=== PATIENT | female | born 1965 | race Caucasian/White ===

== ENCOUNTER 2018-09-23 20:48 | Emergency (ER) | payer OTHER ==
--- OUTSIDE RECORDS SUMMARY | 2018-09-23 20:51 | XMS REPORT | Clinical Summary ---
:1965 Author Organization [facility] Address [address] [place] [address] Care Team Providers Name Role Phone Gibran Owens MD Primary Care Provider Allergies Active Allergy Reactions Severity Noted Date Comments Duloxetine High 05/19/2018 Quetiapine High 05/19/2018 Bupropion Hcl High 05/19/2018 Medications Medication Sig Dispensed Refills Start Date End Date Status amLODIPine (NORVASC) 5 Take 5 mg by 0 Active mg tablet mouth. citalopram (CeleXA) 20 Take 20 mg by 0 Active MG tablet mouth. furosemide (LASIX) 40 Take 20 mg by 0 Active mg tablet mouth. HYDROcodone-acetaminoph Take 1 tablet by 0 Active en (NORCO) 7.5-325 mg mouth. per tablet lisinopril Take 20 mg by 0 Active (PRINIVIL,ZESTRIL) 40 mouth. mg tablet pantoprazole (PROTONIX) Take 40 mg by 0 Active 40 MG EC tablet mouth. rOPINIRole (REQUIP) 2 Take 2 mg by 0 Active MG tablet mouth. promethazine Take 25 mg by 0 02/08/2016 Active (PHENERGAN) 25 MG mouth. tablet traZODone (DESYREL) 50 Take 50 mg by 0 Active MG tablet mouth. Active Problems No known active problems Encounters Date Type Specialty Care Team Description 07/01/2018 Telephone Orthopedic Surgery Tae Salazar MD 05/19/2018 Office Visit Orthopedic Surgery Tae Salazar MD Acute pain of right shoulder (Primary Dx); Failed orthopedic implant, initial encounter after 09/22/2017 Social History Tobacco Use Types Packs/Day Years Used Date Light Tobacco Smoker Smokeless Tobacco: Never Used Alcohol Use Drinks/Week oz/Week Comments No Sex Assigned at Date Recorded Not on file Job Start Date Occupation Industry Not on file Not on file Not on file Travel History Travel Start Travel End No recent travel history available. Last Filed Vital Signs Not on file Plan of Treatment Health Maintenance Due Date Last Done Comments MMR VACCINES (1 of 1 - Standard 1965 series) VARICELLA VACCINES (1 of 2 - 2-dose 1977 adolescent series) CERVICAL CANCER SCREENING 1985 BREAST CANCER SCREENING 2014 COLON CANCER SCREENING 2014 SHINGRIX VACCINE (1 of 2) 2014 INFLUENZA VACCINE 06/09/2018 HEPATITIS B VACCINES Aged Out No longer eligible based on patient's age to complete this topic IPV VACCINES Aged Out No longer eligible based on patient's age to complete this topic MENINGOCOCCAL VACCINE Aged Out No longer eligible based on patient's age to complete this topic Results Not on fileafter 09/22/2017 Insurance Payer Benefit Plan / Group Subscriber ID Type Phone Address UHC MEDICARE UHC DUAL COMPLETE MCR x[place] [facility] [place] Medicaid Advance Directives Patient has advance care planning documents on file. For more information, please contact:[facility] [place] [address]
--- NOTE | 2018-09-23 21:08 | ER ---
Nurse's Notes [facility] Name: Betsey Martel Age: 53 yrs Sex: Female : 1965 Arrival Date: 09/23/2018 Time: 20:53 Bed Waiting [facility] MD: Diagnosis: Presentation: 09/23 21:06 Note "I'm not going to wait, I'm going to go to [facility]". [facility] ED Course: :53 Patient arrived in ED. ds1 21:07 Christian Amaya MD is Attending Physician. aj Administered Medications: No medications were administered Outcome: 21:07 Patient left the ED. aj Signatures: Omaira Oconnell RN RN Keeley Blanco ds1
== END 2018-09-23 21:07 | disposition left against medical advice (07) ==
LOC: ER 20:48
DX: Z53.21 Procedure and treatment not carried out due to patient leaving prior to being seen by health care provider (principal)

== ENCOUNTER 2019-01-11 01:58 | Emergency (ER) | payer OTHER ==
--- OUTSIDE RECORDS SUMMARY | 2019-01-11 02:01 | XMS REPORT ---
:1965 [facility] Address [address] [place] [address] Dr. Phillips [address] [place] [address] Care Team Providers Name Role Phone Unavailable Unavailable Unavailable Problems This patient has no known problems. Allergies, Adverse Reactions, Alerts This patient has no known allergies or adverse reactions. Medications This patient has no known medications.
--- OUTSIDE RECORDS SUMMARY | 2019-01-11 02:01 | XMS REPORT | Clinical Summary ---
:1965 Author Organization [facility] Address [address] [place] [address] Care Team Providers Name Role Phone Gibran [...] Encounters Date Type Specialty Care Team Description 12/01/2018 Office Visit Orthopedic Surgery Tae Salazar MD 11/23/2018 Telephone Orthopedic Surgery Tae Salazar MD 11/22/2018 Hospital Encounter Radiology Tae Salazar, Acute pain of right MD shoulder 11/22/2018 Hospital Encounter Radiology Tae Salazar MD 11/22/2018 Hospital Encounter Radiology Tae Salazar, Acute pain of right MD shoulder 11/22/2018 Hospital Encounter Radiology Tae Salazar, Acute pain of right MD shoulder 10/25/2018 Telephone Orthopedic Surgery Tae Salazar MD 10/18/2018 Telephone Orthopedic Tae Bishop MD 10/06/2018 Office Visit Orthopedic Surgery Tae Salazar, Acute pain of right shoulder (Primary Dx); Failed orthopedic implant, initial encounter ([facility]) 07/01/2018 Telephone Orthopedic Tae Bishop MD 05/19/2018 Office Visit Orthopedic Surgery Tae Salazar, Acute pain of right shoulder (Primary Dx); Failed orthopedic implant, initial encounter after 01/10/2018 Social History Tobacco Use Types Packs/Day Years Used Date Light Tobacco Smoker Smokeless Tobacco: Never Used Alcohol Use Drinks/Week oz/Week Comments No Sex Assigned at Date Recorded Not on file Job Start Date Occupation Industry Not on file Not on file Not on file Travel History Travel Start Travel End No recent travel history available. Last Filed Vital Signs Vital Sign Reading Time Taken Blood Pressure 194/91 11/22/2018 2:15 PM [employer] Pulse 60 11/22/2018 2:15 PM [employer] Temperature - - Respiratory Rate 18 11/22/2018 1:12 PM [employer] Oxygen Saturation - - Inhaled Oxygen Concentration - - Weight 72.6 kg (160 lb) 11/22/2018 1:12 PM [employer] Height 167.6 cm (5' 6") 11/22/2018 1:12 PM [employer] Body Mass Index 25.82 11/22/2018 1:12 PM [employer] Plan of Treatment Health Maintenance Due Date Last Done Comments CERVICAL CANCER SCREENING 1985 BREAST CANCER SCREENING 2014 COLON CANCER SCREENING 2014 SHINGLES VACCINES (#1) 2014 INFLUENZA VACCINE Completed 07/25/2018 Procedures Procedure Name Priority Date/Time Associated Comments Diagnosis FL RAD NEEDLE Routine 11/22/2018 2:30 PM Acute pain of right Results for this ASPIRATION [employer] shoulder procedure are in the results section. CELL COUNT AND Routine 11/22/2018 2:05 PM Results for this DIFFERENTIAL, BODY [employer] procedure are in FLUID the results section. GRAM STAIN Routine 11/22/2018 2:05 PM Results for this [employer] procedure are in the results section. AEROBIC CULTURE Routine 11/22/2018 2:05 PM Results for this [employer] procedure are in the results section. NM BONE SCAN 3 PHASE Routine 11/22/2018 12:36 PM Acute pain of right Results for this [employer] shoulder procedure are in the results section. CT UPPER EXTREMITY Routine 11/22/2018 10:48 AM Acute pain of right Results for this WO RIGHT [employer] shoulder procedure are in the results section. after 01/10/2018 Results FL Rad Needle Aspiration (11/22/2018 2:30 PM [employer]) Narrative Performed At EXAMINATION:FL RAD NEEDLE ASPIRATION [facility] CLINICAL HISTORY:M25.511 Pain in right shoulder, RIGHT SHOULDERPOSSIBLE INFECTION COMPARISON:None. RADIATION DOSE: Fluoroscopic time was 0.6 minutes minutes. 3 fluoroscopic exposures. Peak skin dose is 2.17 mGy COMMENTS: Informed consent was obtained. Right shoulder joint was localized with fluoroscopy. The overlying skin was prepped and draped in routine sterile fashion. Using fluoroscopic guidance, after administration of local lidocaine, a 22G needle was advanced into the right shoulder joint. 1 cc of bloody fluid was aspirated and sent for the cultures and sensitivity.. Patient tolerated the procedure and there were no immediate complications. IMPRESSION: Fluoroscopic guided right shoulder aspiration and a patient with reverse right shoulder arthroplasty. Approximately 1 cc of fluid was obtained and sent for cultures and lab work as ordered. [facility]-[id number] Procedure Note Hm Interface, Radiology Results Incoming - 11/22/2018 2:43 PM [employer] EXAMINATION: FL RAD NEEDLE ASPIRATION CLINICAL HISTORY: M25.511 Pain in right shoulder, RIGHT SHOULDER POSSIBLE INFECTION COMPARISON: None. RADIATION DOSE: Fluoroscopic time was 0.6 minutes minutes. 3 fluoroscopic exposures. Peak skin dose is 2.17 mGy COMMENTS: Informed consent was obtained. Right shoulder joint was localized with fluoroscopy. The overlying skin was prepped and draped in routine sterile fashion. Using fluoroscopic guidance, after administration of local lidocaine, a 22G needle was advanced into the right shoulder joint. 1 cc of bloody fluid was aspirated and sent for the cultures and sensitivity.. Patient tolerated the procedure and there were no immediate complications. IMPRESSION: Fluoroscopic guided right shoulder aspiration and a patient with reverse right shoulder arthroplasty. Approximately 1 cc of fluid was obtained and sent for cultures and lab work as ordered. [facility]-[id number] Performing Organization Address City/State/Zipcode Phone Number [facility] [address] [place] [id number] Aerobic culture (11/22/2018 2:05 PM [employer]) Aerobic culture isolate No growth after 3 days. [facility] Comment: HOSPITAL Specimen Information Specimen Source: Aspirate Specimen Site: ShoulderRight Specimen Aspirate Performing Organization Address City/[facility] Phone Number [facility] DEPARTMENT OF PATHOLOGY AND [address] [place] [address] [address] Gram stain (11/22/2018 2:05 PM [employer]) Gram stain isolate No WBC's or organisms seen. [facility] Comment: Specimen Information Specimen Source: Aspirate Specimen Site: ShoulderRight Specimen Aspirate Performing Organization Address [facility] Phone Number [facility] DEPARTMENT OF PATHOLOGY AND [address] [place] [phone] [address] Cell count and differential, body fluid (11/22/2018 2:05 PM [employer]) [facility] fluid type SynovialComment: right [facility] shoulder Color, fluid Red [facility] Appearance, fluid Hazy [facility] RBC, fluid SEE COMMENTComment: 3+ /CMM [facility] (10,000 - 20,000 RBC/CMM) Nucleated cells, fluid 239 /CMM [facility] Fluid mononuclear cell See Diff [facility] Neutrophils, fluid 57 % [facility] Lymphocytes, fluid 33 % [facility] Metamyelocytes, fluid 10 % [facility] Specimen Fluid Narrative Performed At right shoulder [facility] DEPARTMENT OF PATHOLOGY AND GENOMIC MEDICINE Performing Organization Address [facility] Phone Number [facility] DEPARTMENT OF PATHOLOGY AND [address] [place] [address] [address] NM Bone Scan 3 Phase (11/22/2018 12:36 PM [employer]) Narrative Performed At PROCEDURE:NM BONE SCAN 3 PHASE [facility] INDICATION:Right shoulder pain. COMPARISON:CT scan of the right upper extremity performed on same day. TECHNIQUE: The patient was injected with 25 mCi of Tc-99m labeled MDP IV and a three phase bone scan of the thorax was performed. Immediate flow and pool images were followed by delayed images acquired three hours later. FINDINGS:Flow and pool images are unremarkable.Delayed images demonstrate relatively normal uptake surrounding a right shoulder prosthesis. IMPRESSION: 1. Uncomplicated appearing right shoulder prosthesis. [facility]-[id number] Procedure Note Interface, Radiology Results Incoming - 11/22/2018 1:37 PM [employer] PROCEDURE: NM BONE SCAN 3 PHASE INDICATION: Right shoulder pain. COMPARISON: CT scan of the right upper extremity performed on same day. TECHNIQUE: The patient was injected with 25 mCi of Tc-99m labeled MDP IV and a three phase bone scan of the thorax was performed. Immediate flow and pool images were followed by delayed images acquired three hours later. FINDINGS: Flow and pool images are unremarkable. Delayed images demonstrate relatively normal uptake surrounding a right shoulder prosthesis. IMPRESSION: 1. Uncomplicated appearing right shoulder prosthesis. [facility]-[id number] Performing Organization Address City/State/Zipcode Phone Number [facility] [address] [place] [address] CT Upper Extremity Wo Right (11/22/2018 10:48 AM [employer]) Narrative Performed At EXAMINATION:CT UPPER EXTREMITY WO RIGHT [facility] INDICATION:Pain. COMPARISON: None available TECHNIQUE: Helical axial CT images of the right shoulder were acquired without intravenous contrast. Sagittal coronal planar reformats reviewed. Automated exposure control and/or iterative reconstruction was used to reduce patient dose. 3-D volume rendered imaging was performed using post processing on a separate workstation. FINDINGS: 1.Prior reversed shoulder arthroplasty without evidence of a visible periprosthetic fracture. There is no evidence of a stress fracture of the acromion process. Lateral acromial downsloping is noted with ossification of the origin of the deltoid ligament. 2.Irregularity of the coracoid process consistent with old trauma. No evidence of an acute fracture. 3.There is adequate osseous integration involving the humeral implant without evidence of osteolysis. 4.There is solid osseous integration of the glenoid implant. 2 of the glenoid screws extend beyond the medial wall of the glenoid. There is no evidence of glenoid osteolysis. 5.There is prominent scapular notching involving the inferior glenoid and scapula as seen on series 310, image 28 from the base plate. 6.Limited assessment of the soft tissues demonstrates no focal abnormality in the mediastinum. There is expected atrophy of the cuff musculature which is most prominent involving subscapularis. No definite soft tissue mass is noted the in the axilla. No significant axillary adenopathy. Note is made of a stent graft involving the arch and descending thoracic aorta which is partially imaged. Limited assessment of the right hemithorax demonstrates no visible focal abnormality in the right lung. IMPRESSION: 1. Prior for shoulder arthroplasty with solid integration of the humeral and glenoid implants. No evidence of osteolysis. 2. Prominent notching of the inferior scapula from the medial aspect of the humeral base plate. 3. Small amount of periarticular heterotopic ossification. 4. Medial extension of a couple of the glenoid screws beyond the scapula of uncertain clinical significance. 5. Additional findings as above. Procedure Note Hm Interface, Radiology Results Incoming - 11/22/2018 11:49 AM [employer] EXAMINATION: CT UPPER EXTREMITY WO RIGHT INDICATION: Pain. COMPARISON: None available TECHNIQUE: Helical axial CT images of the right shoulder were acquired without intravenous contrast. Sagittal coronal planar reformats reviewed. Automated exposure control and/or iterative reconstruction was used to reduce patient dose. 3-D volume rendered imaging was performed using post processing on a separate workstation. FINDINGS: 1. Prior reversed shoulder arthroplasty without evidence of a visible periprosthetic fracture. There is no evidence of a stress fracture of the acromion process. Lateral acromial downsloping is noted with ossification of the origin of the deltoid ligament. 2. Irregularity of the coracoid process consistent with old trauma. No evidence of an acute fracture. 3. There is adequate osseous integration involving the humeral implant without evidence of osteolysis. 4. There is solid osseous integration of the glenoid implant. 2 of the glenoid screws extend beyond the medial wall of the glenoid. There is no evidence of glenoid osteolysis. 5. There is prominent scapular notching involving the inferior glenoid and scapula as seen on series 310, image 28 from the base plate. 6. Limited assessment of the soft tissues demonstrates no focal abnormality in the mediastinum. There is expected atrophy of the cuff musculature which is most prominent involving subscapularis. No definite soft tissue mass is noted the in the axilla. No significant axillary adenopathy. Note is made of a stent graft involving the arch and descending thoracic aorta which is partially imaged. Limited assessment of the right hemithorax demonstrates no visible focal abnormality in the right lung. IMPRESSION: 1. Prior for shoulder arthroplasty with solid integration of the humeral and glenoid implants. No evidence of osteolysis. 2. Prominent notching of the inferior scapula from the medial aspect of the humeral base plate. 3. Small amount of periarticular heterotopic ossification. 4. Medial extension of a couple of the glenoid screws beyond the scapula of uncertain clinical significance. 5. Additional findings as above. Performing Organization Address City/State/Zipcode Phone Number [facility] [address] [place] [address] after 01/10/2018 Insurance Payer Benefit Plan / Group Subscriber ID Type Phone Address [facility] MEDICARE [facility] DUAL COMPLETE MCR xxxxxxxxx [facility] MED[place]ID MEDICAID xxxxxxxxx Medicaid Advance Directives Patient has advance care planning documents on file. For more information, please contact:Hugo Casillas[address] [place] [address]
[2019-01-11] MEDS ORDERED: NA CHLORIDE 0.9% 500 ML ONE (02:53)
[2019-01-11] MEDS ORDERED: FENTANYL CITR 100 MCG/2 ML ONE (03:34)
[2019-01-11 04:02] LABS: Urine Blood NEGATIVE (NEG); Urine Glucose NEGATIVE (NEG); Urine Protein NEGATIVE (NEG); Urine pH 5.5 (5.0-7.0)
[2019-01-11 04:07] LABS: Urine Bacteria <20 /HPF (<20); Urine Culture Reflex Order NOT NEEDED; Urine RBC NONE SEEN /HPF (NONE SEEN)
[2019-01-11 04:24] LABS: ALT/SGPT 21 U/L (12-78); AST/SGOT 10 U/L (15-37); Albumin 3.7 g/dL (3.4-5.0); Alkaline Phosphatase 98 U/L (45-117); BUN Blood Urea Nitrogen 39 mg/dL (7-18); Bicarbonate 27 mmol/L (21-32); Bilirubin Direct < 0.1 mg/dL (0-0.2); Bilirubin Total 0.4 mg/dL (0.2-1.0); Glucose Level 110 mg/dL (74-106); Lipase 153 U/L (73-393); Magnesium 1.7 mg/dL (1.8-2.4); Potassium 3.6 mmol/L (3.5-5.1); Protein, Total 6.6 g/dL (6.4-8.2); Sodium Level 140 mmol/L (136-145)
[2019-01-11 04:26] LABS: Absolute Lymphocytes (CBC) 1.8 K/uL (0.7-4.9); Absolute Monocytes 0.5 K/uL (0.1-1.3); Basophils % 0.7 % (0-1.3); Eosinophils % 5.5 % (0-4.4); Hematocrit 39.3 % (36.0-45.0); Lymphocytes % 26.9 % (15.3-44.8); MPV 7.5 fL (7.6-11.3); Monocytes % 7.3 % (3.3-12.3); RBC Red Blood Cell Count 4.06 M/uL (3.86-4.86)
--- NOTE | 2019-01-11 05:34 | EDPHYS ---
Physician Documentation [facility] Name: Betsey Martel Age: 53 yrs Sex: Female : 1965 Arrival Date: 01/11/2019 Time: 02:00 Bed 5 Private MD: ED Physician Christian Amaya HPI: 01/11 02:25 This 53 yrs old Female presents to ER via EMS with complaints of Abdominal cp Cramping. 02:25 The patient presents to the emergency department with nausea, that is moderate, cp vomiting, that is intermittent. 02:25 Onset: The symptoms/episode began/occurred 1 week(s) ago. Associated signs and cp symptoms: Pertinent positives: abdominal pain, Pertinent negatives: constipation, dysuria, fever, GI bleeding. Severity of symptoms: in the emergency department the symptoms are unchanged despite home interventions. 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: 02:09 LMP N/A - Post-menopause bb Historical: - Allergies: 02:09 Cymbalta; bb 02:09 Seroquel; bb 02:09 Wellbutrin; bb - Home Meds: 02:09 amlodipine 5 mg tab 1 tab once daily [Active]; biotin Oral daily [Active]; bb levothyroxine 25 mcg tab once daily [Active]; pantoprazole 40 mg Oral TbEC 1 tab once daily [Active]; citalopram 20 mg tab 1 tab once daily [Active]; furosemide 20 mg Oral tab 1 tab once daily [Active]; trazodone 75 mg nightly Oral tab nightly [Active]; ropinirole 2 mg Oral Tb24 nightly [Active]; hydromorphone 4 mg Oral tab four times a day [Active]; Klonopin 2 mg Oral tab as needed [Active]; Phenergan Oral 25 mg as needed [Active]; tizanidine 2 mg oral cap 1 caps twice a day [Active]; - PMHx: 02:09 BRAIN TUMOR 1996; degenerative bone disease; Depression; ETHO INTOXICATION; GERD; Hip bb Pain; Hypertension; Hypothyroidism; kidney disease; osteoarthritis; Rheumatoid Arthritis; THORACIC AORTIC ANEURYSM; CHF; Anemia; Chronic pain; - Immunization history:: Adult Immunizations up to date. - Social history:: Smoking status: Patient uses tobacco products, smokes one pack cigarettes per day. - Ebola Screening: : No symptoms or risks identified at this time. ROS: 00:30 Constitutional: Positive for poor PO intake, Negative for body aches, chills, fever. cp 00:30 Eyes: Negative for injury, pain, redness, and discharge. cp 00:30 Cardiovascular: Negative for chest pain, edema, palpitations. cp 00:30 ENT: Negative for drainage from ear(s), ear pain, sore throat, difficulty swallowing, cp difficulty handling secretions. 00:30 Respiratory: Negative for cough, shortness of breath, wheezing. 00:30 Abdomen/GI: Positive for nausea, vomiting, abdominal cramps, Negative for diarrhea, constipation, anorexia, hematemesis, black/tarry stool, rectal bleeding. 00:30 : Negative for urinary symptoms. 00:30 Skin: Negative for cellulitis, rash. 00:30 Neuro: Negative for altered mental status, headache, syncope, weakness. 00:30 All other systems are negative. Exam: 00:35 Constitutional: The patient appears in no acute distress, alert, awake, non-toxic, well cp developed, well nourished. 00:35 Head/Face: Normocephalic, atraumatic. cp 00:35 Eyes: Periorbital structures: appear normal, Conjunctiva: normal, no exudate, no injection, Sclera: no appreciated abnormality, Lids and lashes: appear normal, bilaterally. 00:35 ENT: External ear(s): are unremarkable, Nose: is normal, Mouth: Lips: moist, Oral mucosa: pink and intact, moist, Posterior pharynx: is normal, airway is patent, no erythema, no exudate. 00:35 Chest/axilla: Inspection: normal, Palpation: is normal, no crepitus, no tenderness. 00:35 Cardiovascular: Rate: normal, Rhythm: regular. 00:35 Respiratory: the patient does not display signs of respiratory distress, Respirations: normal, no use of accessory muscles, no retractions, no splinting, no tachypnea, labored breathing, is not present, Breath sounds: are clear throughout, no decreased breath sounds, no stridor, no wheezing. 00:35 Abdomen/GI: Inspection: abdomen appears normal, Bowel sounds: active, all quadrants, Palpation: soft, in all quadrants, mild abdominal tenderness, in all quadrants, rebound tenderness, is not appreciated, voluntary guarding, is not appreciated, involuntary guarding, is not appreciated. 00:35 Back: pain, is absent, ROM is normal. 00:35 Skin: cellulitis, is not appreciated, no rash present. 00:35 Neuro: Orientation: to person, place \T\ time. Mentation: is normal, Cerebellar function: is grossly normal, Motor: moves all fours, strength is normal, Sensation: is normal. 03:23 ECG was reviewed by the Attending Physician. cp Vital Signs: 02:09 BP 127 / 66; Pulse 79; Resp 16 S; Temp 97.7(O); Pulse Ox 100% on R/A; Weight 70.31 kg bb (R); Pain 9/10; 02:30 BP 120 / 63; Pulse 83; Resp 12; Pulse Ox 100% on R/A; lp1 03:30 BP 111 / 91; Pulse 61; Resp 20; Pulse Ox 99% on R/A; lp1 05:00 BP 128 / 67; Pulse 62; Resp 15; Pulse Ox 97% on R/A; lp1 06:46 BP 127 / 84; Pulse 65; Resp 18; Pulse Ox 98% on R/A; oe MDM: 02:09 Patient medically screened. cp 05:31 Data reviewed: vital signs, nurses notes, lab test result(s), EKG, radiologic studies, maria esther CT scan. 03 02:23 Order name: Basic Metabolic Panel cp 01/11 02:23 Order name: CBC with Diff; Complete Time: 05:10 cp 01/11 02:23 Order name: Creatinine for Radiology; Complete Time: 05:10 cp 01/11 02:23 Order name: Hepatic Function; Complete Time: 05:10 cp 01/11 02:23 Order name: Lipase; Complete Time: 05:10 cp 01/11 02:23 Order name: Magnesium; Complete Time: 05:10 cp 01/11 02:23 Order name: EKG; Complete Time: 02:24 cp 01/11 02:23 Order name: Urine Microscopic Only; Complete Time: 05:10 cp 01/11 02:23 Order name: Basic Metabolic Panel; Complete Time: 05:10 EDMS 01/11 03:02 Order name: CT Abd/Pelvis - Without Cont: give oral contrast cp 01/11 03:09 Order name: Urine Dipstick--Ancillary (enter results); Complete Time: 04:07 ms 01/11 02:23 Order name: IV Saline Lock; Complete Time: 03:16 cp 01/11 02:23 Order name: Labs collected and sent; Complete Time: 03:16 cp 01/11 02:23 Order name: EKG - Nurse/Tech; Complete Time: 03:22 cp 01/11 02:23 Order name: Urine Dipstick-Ancillary (obtain specimen); Complete Time: 03:15 cp EC:23 Rate is 68 beats/min. Rhythm is regular. NE interval is normal. QRS interval is normal. cp QT interval is normal. Interpreted by me. Reviewed by me. Administered Medications: 03:08 Drug: NS 0.9% 500 ml Route: IV; Rate: bolus; Site: right antecubital; lp1 03:45 Follow up: IV Status: Completed infusion lp1 03:29 Drug: fentaNYL (PF) 25 mcg Route: IVP; Site: right antecubital; lp1 04:00 Follow up: Response: Pain is decreased lp1 05:46 Drug: Magnesium Sulfate 1 grams Route: IVPB; Infused Over: 1 hrs; Site: right lp1 antecubital; 06:45 Follow up: IV Status: Completed infusion lp1 Disposition: 05:31 Co-signature as Attending Physician, Christian Amaya MD I agree with the assessment and maria esther plan of care. Disposition: 01/11/19 05:34 Discharged to Home. Impression: Abdominal tenderness, Unspecified kidney failure, Hypomagnesemia. - Condition is Stable. - Discharge Instructions: Abdominal Pain, Adult, Diarrhea, Adult, Hypomagnesemia, Abdominal Pain, Adult, Zjlk-[id number], Diarrhea, Adult, [id number]. - Prescriptions for Bentyl 20 mg Oral Tablet - take 1 tablet by ORAL route every 6 hours As needed; 20 tablet. Pepcid 20 mg Oral Tablet - take 1 tablet by ORAL route every 12 hours for 10 days; 20 tablet. - Medication Reconciliation Form, Thank You Letter, Antibiotic Education, Prescription Opioid Use form. - Follow up: Private Physician; When: 2 - 3 days; Reason: Recheck today's complaints, Re-evaluation by your physician. - Problem is new. - Symptoms have improved. Signatures: Dispatcher [employer] Christian Quiroz MD MD cha Ballard, Brenda RN RN bb Betsey Gilmore RN RN lp1 Christian Webber PA PA cp Corrections: (The following items were deleted from the chart) 07:05 05:34 01/11/2019 05:34 Discharged to Home. Impression: Abdominal tenderness; lp1 Unspecified kidney failure; Hypomagnesemia. Condition is Stable. Forms are Medication Reconciliation Form, Thank You Letter, Antibiotic Education, Prescription Opioid Use. Follow up: Private Physician; When: 2 - 3 days; Reason: Recheck today's complaints, Re-evaluation by your physician. Problem is new. Symptoms have improved. maria esther
--- NOTE | 2019-01-11 05:34 | ER ---
Nurse's Notes [facility] Name: Betsey Martel Age: 53 yrs Sex: Female : 1965 Arrival Date: 01/11/2019 Time: 02:00 Bed 5 Private MD: Diagnosis: Abdominal tenderness;Unspecified kidney failure;Hypomagnesemia Presentation: 01/11 02:03 Presenting complaint: EMS states: they were toned out for report of pt having abdominal bb pain/cramping and diarrhea. Pt denies vomiting or fever. Pt is c/o leg cramping also. Transition of care: patient was not received from another setting of care. Onset of symptoms was January 11, 2019. Risk Assessment: Do you want to hurt yourself or someone else? Patient reports no desire to harm self or others. Initial Sepsis Screen: Does the patient meet any 2 criteria? No. Patient's initial sepsis screen is negative. Does the patient have a suspected source of infection? No. Patient's initial sepsis screen is negative. Care prior to arrival: None. 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: 02:09 LMP N/A - Post-menopause bb Historical: - Allergies: 02:09 Cymbalta; bb 02:09 Seroquel; bb 02:09 Wellbutrin; bb - Home Meds: 02:09 amlodipine 5 mg tab 1 tab once daily [Active]; biotin Oral daily [Active]; bb levothyroxine 25 mcg tab once daily [Active]; pantoprazole 40 mg Oral TbEC 1 tab once daily [Active]; citalopram 20 mg tab 1 tab once daily [Active]; furosemide 20 mg Oral tab 1 tab once daily [Active]; trazodone 75 mg nightly Oral tab nightly [Active]; ropinirole 2 mg Oral Tb24 nightly [Active]; hydromorphone 4 mg Oral tab four times a day [Active]; Klonopin 2 mg Oral tab as needed [Active]; Phenergan Oral 25 mg as needed [Active]; tizanidine 2 mg oral cap 1 caps twice a day [Active]; - PMHx: 02:09 BRAIN TUMOR 1997; degenerative bone disease; Depression; ETHO INTOXICATION; GERD; Hip bb Pain; Hypertension; Hypothyroidism; kidney disease; osteoarthritis; Rheumatoid Arthritis; THORACIC AORTIC ANEURYSM; CHF; Anemia; Chronic pain; - Immunization history:: Adult Immunizations up to date. - Social history:: Smoking status: Patient uses tobacco products, smokes one pack cigarettes per day. - Ebola Screening: : No symptoms or risks identified at this time. Screenin:13 Abuse screen: Denies threats or abuse. Denies injuries from another. Nutritional lp1 screening: No deficits noted. Tuberculosis screening: No symptoms or risk factors identified. Fall Risk None identified. Assessment: 02:15 General: Appears uncomfortable, Behavior is anxious. Pain: Complains of pain in abdomen lp1 Pain currently is 10 out of 10 on a pain scale. Quality of pain is described as sharp, stabbing. Neuro: Level of Consciousness is awake, alert, obeys commands, Oriented to person, place, time, situation. Cardiovascular: Patient's skin is warm and dry. Respiratory: Respiratory effort is even, unlabored, Respiratory pattern is regular, Breath sounds are clear bilaterally. GI: Abdomen is non-distended, Bowel sounds present X 4 quads. Abdomen is tender to palpation X 4 quads. Reports diarrhea. : No signs and/or symptoms were reported regarding the genitourinary system. EENT: No signs and/or symptoms were reported regarding the EENT system. Derm: Skin is pink, warm \\T\\ dry. Musculoskeletal: Circulation, motion, and sensation intact. 03:15 Reassessment: CT notified of patient completing oral contrast at this time. lp1 03:20 Reassessment: Patient complaint of continued pain, states "I have chronic pain lp1 management, I take Dilaudid at home so can you let him know?"; Provider notified. 04:30 Reassessment: Patient appears in no apparent distress at this time. Patient and/or lp1 family updated on plan of care and expected duration. Pain level reassessed. Patient is alert, oriented x 3, equal unlabored respirations, skin warm/dry/pink. Patient aware of pending CT results. 05:46 Reassessment: Patient is alert, oriented x 3, equal unlabored respirations, skin lp1 warm/dry/pink. Patient aware of pending discharge; IV medication infusing now Patient states feeling better. 06:45 Reassessment: Patient appears in no apparent distress at this time. Patient is alert, lp1 oriented x 3, equal unlabored respirations, skin warm/dry/pink. Patient states feeling better. Patient states symptoms have improved. Vital Signs: 02:09 BP 127 / 66; Pulse 79; Resp 16 S; Temp 97.7(O); Pulse Ox 100% on R/A; Weight 70.31 kg bb (R); Pain 9/10; 02:30 BP 120 / 63; Pulse 83; Resp 12; Pulse Ox 100% on R/A; lp1 03:30 BP 111 / 91; Pulse 61; Resp 20; Pulse Ox 99% on R/A; lp1 05:00 BP 128 / 67; Pulse 62; Resp 15; Pulse Ox 97% on R/A; lp1 06:46 BP 127 / 84; Pulse 65; Resp 18; Pulse Ox 98% on R/A; oe ED Course: 02:00 Patient arrived in ED. ds1 02:04 Triage completed. bb 02:09 Christian Webber PA is PHCP. cp 02:09 Christian Amaya MD is Attending Physician. cp 02:09 Arm band placed on Patient placed in an exam room, on a stretcher, on pulse oximetry. bb 02:15 Patient has correct armband on for positive identification. cardiac monitor technician on. Pulse lp1 ox on. NIBP on. 02:39 Betsey Gilmore, RN is Primary Nurse. lp1 03:00 Inserted saline lock: 22 gauge in right antecubital area, using aseptic technique. lp1 Blood collected. 03:00 Urine collected: clean catch specimen, clear. lp1 04:[address] via wheelchair. lp1 04:47 CT Abd/Pelvis - Without Cont: give oral contrast In Process Unspecified. EDMS 04:47 CT completed. Patient tolerated procedure well. Patient moved back from CT. kw1 05:47 No provider procedures requiring assistance completed. lp1 06:45 IV discontinued, No redness/swelling at site. Pressure dressing applied. lp1 Administered Medications: 03:08 Drug: NS 0.9% 500 ml Route: IV; Rate: bolus; Site: right antecubital; lp1 03:45 Follow up: IV Status: Completed infusion lp1 03:29 Drug: fentaNYL (PF) 25 mcg Route: IVP; Site: right antecubital; lp1 04:00 Follow up: Response: Pain is decreased lp1 05:46 Drug: Magnesium Sulfate 1 grams Route: IVPB; Infused Over: 1 hrs; Site: right lp1 antecubital; 06:45 Follow up: IV Status: Completed infusion lp1 Outcome: 05:34 Discharge ordered by MD. mayo 06:45 Discharged to home ambulatory, with friend. lp1 06:45 Condition: good 06:45 Discharge instructions given to patient, Instructed on discharge instructions, follow up and referral plans. medication usage, Demonstrated understanding of instructions, follow-up care, medications, Prescriptions given X 2. 06:45 Patient left the ED. lp1 Signatures: Dispatcher [employer] EDMS Christian Amaya MD MD cha Sanford, Demi ds1 Yuni Berumen RN RN Betsey Rey RN RN lp1 Christian Webber, Nura Pierre cp, Kimberly kw1 Corrections: (The following items were deleted from the chart) 07:06 07:05 Patient left the ED. lp1 lp1
[2019-01-11] MEDS ORDERED: MAGNESIUM SULFATE 1 gm IVPB 1 GM/100 ML BAG IV ONE (05:51)
[2019-01-11 07:19] VITALS: TEMP 97.7
[2019-01-11 07:26] VITALS: BP 127/84; O2SAT 98
--- NOTE | 2019-01-11 10:30 | EKG ---
Test Date: 2019-01-11 Test Time: 03:14:04 General Education Instructor: ERICA MEASUREMENT RESULTS: Intervals: Rate: 68 NM: 156 QRSD: 90 QT: 410 QTc: 435 [place]: P: 48 NM: 156 QRS: 7 T: 35 INTERPRETIVE STATEMENTS: Normal sinus rhythm Minimal voltage criteria for LVH, may be normal variant Borderline ECG Compared to ECG 09/28/2017 07:32:43 Left ventricular hypertrophy now present Sinus bradycardia no longer present Electronically Signed On 01-11-19 10:29:14 PSYCHIATRIC AIDE by Lavell Ruiz
--- NOTE | 2019-01-11 10:40 | RAD REPORT ---
EXAM DESCRIPTION: CT - Abdomen Pelvis Wo Contrast - 01/11/2019 5:18 am JULIAN GARCIA [id number] - Abdomen Pelvis Wo Contrast EXAM: CT abdomen pelvis without IV contrast CLINICAL DATA: 53-year-old female with diarrhea and abdominal pain, denies vomiting or fever TECHNICAL DATA: Axial CT imaging of the abdomen and pelvis was performed. Sagittal and coronal reconstructed images were then performed. The CT study is performed according to ALARA (as low as reasonably achievable) or ALARA/IMAGE GENTLY, with automatic adjustment of mA and/or kV according to patient size. Performed on: 01/11/2019 at 4:35 AM Comparison: 09/26/2017. FINDINGS: Lung bases: The lung bases are clear. There is partial visualization of a metallic stent w ithin the descending thoracic aorta. Liver: The liver is normal in size and configuration. No focal hepatic abnormalities are appreciated on this unenhanced scan. Liver attenuation is within normal limits. Spleen: The spleen is normal is size, configuration and attenuation. No focal splenic abnormalities a re appreciated on this unenhanced scan. Gallbladder and bile duct: The gallbladder is surgically absent. There is no biliary ductal dilatat ion. Pancreas: The pancreas is grossly normal in size and configuration. Adrenal Glands: The adrenal glands are normal in size and configuration. Kidneys: The kidneys are normal in size and configuration. There is no evidence of hydronephrosis. Th ere is no evidence of nephrolithiasis. No focal renal abnormalities are identified. Stomach: The stomach is grossly normal. There is no definite hiatal hernia. Bowel: The bowel gas pattern is non specific and non obstructive. There is scattered colonic divertic ulosis. Appendix: The appendix is normal. Free air: There is no evidence of free air. Free fluid: There is no evidence of free fluid. Vasculature: The aorta is normal in caliber and contour. The inferior vena cava is grossly unremarkab le. Lymphadenopathy: No pathologic lymphadenopathy is identified. Bladder: The bladder is incompletely distended. Reproductive: The uterus is grossly within normal limits. Bones: No acute osseous abnormalities are identified. Soft tissues: No focal soft tissue abnormalities are identified. IMPRESSION: 1. No evidence of acute intra-abdominal or intrapelvic pathology.. 2. Remote cholecystectomy. 3. Scattered colonic diverticulosis. 4. No significant change when compared to the prior study. Electronically signed by: Joellen Justin DO 01/11/2019 5:10 AM EVP AND CHIEF OPERATING OFFICER Due to temporary technical issues with the PACS/Fluency reporting system, reports are being signed by the in house radiologist as a courtesy to ensure prompt reporting. The interpreting radiologist is f ully responsible for the content of the report.
== END 2019-01-11 07:05 | disposition home or self-care (01) ==
LOC: ER 01:58
DX: N19 Unspecified kidney failure (principal); E83.42 Hypomagnesemia; F17.210 Nicotine dependence, cigarettes, uncomplicated; F32.9 Major depressive disorder, single episode, unspecified; Z88.5 Allergy status to narcotic agent
CPT/HCPCS: 93005; 85025; 80048; 36415; 83735; 80076; 83690; 74176; J3010; J3475; 81003; 81015; 96361; 96365; 96375; 99285

== ENCOUNTER 2019-02-08 09:25 | Observation (INO) | payer OTHER ==
--- OUTSIDE RECORDS SUMMARY | 2019-02-08 09:48 | XMS REPORT | Clinical Summary ---
:1965 Author Organization [facility] Address [address] [place] [address] Care Team Providers Name Role Phone Gibran [...] (Primary Dx); Failed orthopedic implant, initial encounter ([facility]) 07/01/2018 Telephone Orthopedic Tae Bishop MD 05/19/2018 Office Visit Orthopedic Surgery Tae Salazra, Acute pain of right shoulder (Primary Dx); Failed orthopedic implant, initial encounter after 02/07/2018 Social History Tobacco Use Types Packs/Day Years [...] Taken Blood Pressure 194/91 11/22/2018 2:15 PM CAMPGROUND MANAGER Pulse 60 11/22/2018 2:15 PM CAMPGROUND MANAGER Temperature - - Respiratory Rate 18 11/22/2018 1:12 PM CAMPGROUND MANAGER Oxygen Saturation - - Inhaled Oxygen Concentration - - Weight 72.6 kg (160 lb) 11/22/2018 1:12 PM CAMPGROUND MANAGER Height 167.6 cm (5' 6") 11/22/2018 1:12 PM CAMPGROUND MANAGER Body Mass Index 25.82 11/22/2018 1:12 PM CAMPGROUND MANAGER Plan of Treatment Health Maintenance Due Date Last Done Comments CERVICAL CANCER SCREENING 1985 BREAST CANCER SCREENING 2014 COLON CANCER SCREENING 2014 SHINGLES VACCINES (#1) 2014 INFLUENZA VACCINE Completed 07/25/2018 Procedures Procedure Name Priority Date/Time Associated Comments Diagnosis FL RAD NEEDLE Routine 11/22/2018 2:30 PM Acute pain of right Results for this ASPIRATION CAMPGROUND MANAGER shoulder procedure are in the results section. CELL COUNT AND Routine 11/22/2018 2:05 PM Results for this DIFFERENTIAL, BODY CAMPGROUND MANAGER procedure are in FLUID the results section. GRAM STAIN Routine 11/22/2018 2:05 PM Results for this CAMPGROUND MANAGER procedure are in the results section. AEROBIC CULTURE Routine 11/22/2018 2:05 PM Results for this CAMPGROUND MANAGER procedure are in the results section. NM BONE SCAN 3 PHASE Routine 11/22/2018 12:36 PM Acute pain of right Results for this CAMPGROUND MANAGER shoulder procedure are in the results section. CT UPPER EXTREMITY Routine 11/22/2018 10:48 AM Acute pain of right Results for this WO RIGHT CAMPGROUND MANAGER shoulder procedure are in the results section. after 02/07/2018 Results FL Rad Needle Aspiration (11/22/2018 2:30 PM CAMPGROUND MANAGER) Narrative Performed At EXAMINATION:FL RAD NEEDLE ASPIRATION [...] for cultures and lab work as ordered. [facility]-[id number] Procedure Note Hm Interface, Radiology Results Incoming - 11/22/2018 2:43 PM CAMPGROUND MANAGER EXAMINATION: FL RAD NEEDLE ASPIRATION CLINICAL HISTORY: [...] for cultures and lab work as ordered. [facility]-[id number] Performing Organization Address City/State/Zipcode Phone Number [facility] [address] [place] [id number] Aerobic culture (11/22/2018 2:05 PM CAMPGROUND MANAGER) Aerobic culture isolate No growth after [address] [facility] Comment: HOSPITAL Specimen Information Specimen Source: Aspirate Specimen Site: ShoulderRight Specimen Aspirate Performing Organization Address City/[facility] Phone Number [facility] DEPARTMENT OF PATHOLOGY AND [address] [place] [phone] [address] Gram stain (11/22/2018 2:05 PM CAMPGROUND MANAGER) Gram stain isolate No WBC's or organisms seen. [facility] Comment: Specimen Information Specimen Source: Aspirate Specimen Site: ShoulderRight Specimen Aspirate Performing Organization Address [facility] Phone Number [facility] DEPARTMENT OF PATHOLOGY AND [address] [place] [phone] [address] Cell count and differential, body fluid (11/22/2018 2:05 PM CAMPGROUND MANAGER) [facility] [place] type SynovialComment: right [facility] shoulder Color, fluid Red [facility] Appearance, fluid Hazy [facility] RBC, fluid SEE COMMENTComment: 3+ /CMM [facility] (10,000 - 20,000 RBC/CMM) Nucleated cells, fluid 239 /CMM [facility] Fluid mononuclear cell See Diff [facility] Neutrophils, fluid 57 % [facility] Lymphocytes, fluid 33 % [facility] Metamyelocytes, fluid 10 % [facility] Specimen Fluid Narrative Performed At right shoulder [facility] DEPARTMENT OF PATHOLOGY AND GENOMIC MEDICINE Performing Organization Address [facility] Phone Number [facility] DEPARTMENT OF PATHOLOGY AND [address] [place] [phone] [address] NM Bone Scan 3 Phase (11/22/2018 12:36 PM CAMPGROUND MANAGER) Narrative Performed At PROCEDURE:NM BONE SCAN 3 [...] IMPRESSION: 1. Uncomplicated appearing right shoulder prosthesis. [facility]-[id number] Procedure Note Interface, Radiology Results Incoming - 11/22/2018 1:37 PM CAMPGROUND MANAGER PROCEDURE: NM BONE SCAN 3 PHASE INDICATION: [...] IMPRESSION: 1. Uncomplicated appearing right shoulder prosthesis. [facility]-[id number] Performing Organization Address City/State/Zipcode Phone Number [facility] [address] [place] [address] CT Upper Extremity Wo Right (11/22/2018 10:48 AM CAMPGROUND MANAGER) Narrative Performed At EXAMINATION:CT UPPER EXTREMITY WO [...] Radiology Results Incoming - 11/22/2018 11:49 AM CAMPGROUND MANAGER EXAMINATION: CT UPPER EXTREMITY WO RIGHT INDICATION: [...] above. Performing Organization Address City/State/Zipcode Phone Number [facility] [address] [place] [address] after 02/07/2018 Insurance Payer Benefit Plan / Group Subscriber ID Type Phone Address [facility] MEDICARE [facility] DUAL COMPLETE MCR xxxxxxxxx [facility] MEDICAID MEDICAID xxxxxxxxx Medicaid Advance Directives Patient has advance care planning documents on file. For more information, please contact:Hugo Casillas[address] [place] [address]
--- OUTSIDE RECORDS SUMMARY | 2019-02-08 09:48 | XMS REPORT ---
:1965 Author Organization [facility] Address [address] [place] [address] Dr. Phillips [address] [place] [address] Care Team Providers Name Role Phone Unavailable Unavailable Unavailable Problems This patient has no known problems. Allergies, Adverse Reactions, Alerts This patient has no known allergies or adverse reactions. Medications This patient has no known medications.
--- NOTE | 2019-02-08 10:00 | RAD REPORT ---
EXAM DESCRIPTION: Vale Single View02/08/2019 9:52 am CLINICAL HISTORY: Cough COMPARISON: 2017 FINDINGS: The lungs appear clear of acute infiltrate. The heart is mildly enlarged Postsurgical changes involve the chest IMPRESSION: No acute abnormalities displayed
[2019-02-08 10:15] LABS: Arterial Blood Carboxyhemoglob 3.2 % (0-1.5); Blood Gas Oxyhemoglobin 91.6 % (94-97); Blood O2 Saturation 95.6 % (92-98.5)
--- NOTE | 2019-02-08 11:35 | RAD REPORT ---
EXAM DESCRIPTION: MRI - Brain Wo Cont - 02/08/2019 11:15 am CLINICAL HISTORY: DIZZINESS Headache, drowsiness, history brain tumor. COMPARISON: Head Brain Wo Cont dated 12/29/2017; MRI BRAIN W WO CONTRAST dated 04/24/2014; MRI BRAIN W ITHOUT CONTRAST dated 03/17/2012; MRA HEAD W O CONTRAST dated 03/17/2012 TECHNIQUE: Multi-sequence, multiplanar MR imaging of the brain was performed without contrast. FINDINGS: No intracranial hemorrhage, hydrocephalus or extra-axial fluid collections. No edema or sh ift of midline structures. No findings to suspect brain mass.Postsurgical changes are present left ce rebellar hemisphere. DWI is negative for acute CVA. Midline structures are normally formed. Mastoid air cells and paranasal sinuses are clear. IMPRESSION: No acute CVA or other acute intracranial abnormality detected. Evidence of postsurgical change left cerebellar hemisphere without unexpected or unusual finding.
[2019-02-08 11:43] LABS: Barbiturates NEGATIVE (NEGATIVE); Benzodiazepines NEGATIVE (NEGATIVE); Cocaine NEGATIVE (NEGATIVE); METHAMPHETAM NEGATIVE (NEGATIVE); Methadone NEGATIVE (NEGATIVE); Opiates POSITIVE (NEGATIVE); Phencyclidine NEGATIVE (NEGATIVE); THC Cannibis NEGATIVE (NEGATIVE)
[2019-02-08] MEDS ORDERED: NA CHLORIDE 0.9% 1,000 ML ONE ×2 (11:57→13:56)
[2019-02-08] MEDS ORDERED: THIAMINE 200 MG/2 ML INJ ONE (11:57)
[2019-02-08] MEDS ORDERED: ALBUTEROL 2.5 MG/3 ML NEB SOL ONE (11:57)
[2019-02-08] MEDS ORDERED: IPRATROPIUM BROM 0.5MG/2.5ML ONE (11:57)
[2019-02-08] MEDS ORDERED: METHYLPREDNISOLONE 125 MG INJ ONE (11:57)
[2019-02-08] MEDS ORDERED: FOLIC ACID 5 MG/ML VIAL ONE (11:59)
[2019-02-08 12:08] LABS: Absolute Monocytes 0.3 K/uL (0.1-1.3); Absolute Neutrophil 3.4 K/uL (1.8-8.0); Basophils % 0.5 % (0-1.3); Eosinophils % 1.4 % (0-4.4); Hematocrit 33.1 % (36.0-45.0); MPV 7.7 fL (7.6-11.3); Monocytes % 6.5 % (3.3-12.3); RBC Red Blood Cell Count 3.43 M/uL (3.86-4.86)
[2019-02-08 12:14] LABS: Protime INR 0.84
[2019-02-08 12:24] LABS: ALT/SGPT 17 U/L (12-78); AST/SGOT 17 U/L (15-37); Albumin 3.4 g/dL (3.4-5.0); Alkaline Phosphatase 94 U/L (45-117); BUN Blood Urea Nitrogen 66 mg/dL (7-18); Bicarbonate 29 mmol/L (21-32); Bilirubin Direct < 0.1 mg/dL (0-0.2); Bilirubin Total 0.2 mg/dL (0.2-1.0); Glucose Level 84 mg/dL (74-106); Lipase 59 U/L (73-393); NT PRO-BNP 1159 pg/mL (<125); Potassium 5.1 mmol/L (3.5-5.1); Protein, Total 6.6 g/dL (6.4-8.2); Sodium Level 135 mmol/L (136-145); Troponin (Emerg Dept Use Only) < 0.02 ng/mL (0.0-0.045)
--- NOTE | 2019-02-08 13:17 | RAD REPORT ---
EXAM DESCRIPTION: USExtrem Venous W Compress Bil02/08/2019 1:12 pm CLINICAL HISTORY: Bilateral leg swelling and swelling COMPARISON: 2016 FINDINGS: The common femoral, superficial femoral, popliteal and posterior tibial veins bilaterally are compressible and demonstrate augmentation. Doppler demonstrates good flow. IMPRESSION: No evidence of deep venous thrombosis involving either lower extremity.
--- NOTE | 2019-02-08 13:17 | ER ---
Nurse's Notes [facility] Name: Betsey Martel Age: 53 yrs Sex: Female : 1965 Arrival Date: 02/08/2019 Time: 09:18 Bed 8 Private MD: Diagnosis: Dyspnea;Unspecified kidney failure-acute;Chronic obstructive pulmonary disease with (acute) exacerbation;Altered mental status, unspecified;Weakness;Other chronic pain;Tobacco use Presentation: 02/08 09:32 Presenting complaint: EMS states: Pt's initial complaint of SOB, 94% on , states that ph son on January 22, reports "feeling scattered" and having difficulty speaking sinc Thursday, also reports difficulty sleeping, currently a pain management pt w/ Dr Tom, takes Dilaudid, states, " I took a pain pill from a friend on Thursday too, maybe it was morphine or oxycontin." C/O pain in spine, denies chest pain. Transition of care: patient was not received from another setting of care. Onset of symptoms was February 08, 2019. Risk Assessment: Do you want to hurt yourself or someone else? Patient reports no desire to harm self or others. Initial Sepsis Screen: Does the patient meet any 2 criteria? No. Patient's initial sepsis screen is negative. Does the patient have a suspected source of infection? No. Patient's initial sepsis screen is negative. Care prior to arrival: None. 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-menopause ph Historical: - Allergies: 09:43 Cymbalta; ph 09:43 Seroquel; ph 09:43 Wellbutrin; ph - Home Meds: 09:43 amlodipine 5 mg tab 1 tab once daily [Active]; biotin Oral daily [Active]; citalopram ph 20 mg tab 1 tab once daily [Active]; furosemide 20 mg Oral tab 1 tab once daily [Active]; hydromorphone 4 mg Oral tab four times a day [Active]; Klonopin 2 mg Oral tab as needed [Active]; levothyroxine 25 mcg tab once daily [Active]; pantoprazole 40 mg Oral TbEC 1 tab once daily [Active]; Phenergan Oral 25 mg as needed [Active]; ropinirole 2 mg Oral Tb24 nightly [Active]; tizanidine 2 mg Oral cap 1 caps twice a day [Active]; trazodone 75 mg nightly Oral tab nightly [Active]; - PMHx: 09:43 Anemia; BRAIN TUMOR 1996; CHF; Chronic pain; degenerative bone disease; Depression; ph ETHO INTOXICATION; GERD; Hip Pain; Hypertension; Hypothyroidism; osteoarthritis; kidney disease; Rheumatoid Arthritis; THORACIC AORTIC ANEURYSM; - Immunization history:: Adult Immunizations unknown. - Family history:: not pertinent. - Social history:: Smoking status: Patient uses tobacco products, smokes one pack cigarettes per day. - Ebola Screening: : No symptoms or risks identified at this time. Screenin:22 Abuse screen: Denies threats or abuse. Denies injuries from another. Nutritional ph screening: No deficits noted. Tuberculosis screening: No symptoms or risk factors identified. Fall Risk None identified. Assessment: 10:24 General: Appears in no apparent distress. uncomfortable, well groomed, Behavior is ph cooperative, appropriate for age, anxious, Denies fever, feeling ill. Pain: Complains of pain in thoracic area and lumbar area. Neuro: Level of Consciousness is awake, alert, obeys commands, Oriented to person, place, time, situation. Cardiovascular: Reports fatigue, shortness of breath, Denies chest pain, nausea, vomiting, Capillary refill < 3 seconds in bilateral fingers Patient's skin is warm and dry. Edema is 1+ to left ankle, left foot, left toes, right ankle, right foot and right toes. Respiratory: Reports shortness of breath on exertion Airway is patent Respiratory effort is even, unlabored, Respiratory pattern is regular, symmetrical, Breath sounds are clear bilaterally. GI: No signs and/or symptoms were reported involving the gastrointestinal system. Patient currently denies abdominal pain, nausea, vomiting. : Reports decreased urination. Derm: Skin is intact, Skin is pink, warm \\T\\ dry. Musculoskeletal: Circulation, motion, and sensation intact. Range of motion: intact in all extremities. 10:57 Reassessment: Patient appears in no apparent distress at this time. Patient and/or ph family updated on plan of care and expected duration. Pain level reassessed. Patient is alert, oriented x 3, equal unlabored respirations, skin warm/dry/pink. Pt taken to CT via wheelchair. 11:51 Reassessment: Patient appears in no apparent distress at this time. Patient and/or ss family updated on plan of care and expected duration. Pain level reassessed. 13:03 Reassessment: Patient appears in no apparent distress at this time. Patient and/or ph family updated on plan of care and expected duration. Pain level reassessed. Patient is alert, oriented x 3, equal unlabored respirations, skin warm/dry/pink. Pt resting quietly, c/o back pain but denies nausea or SOB at this time. 14:32 Reassessment: Patient appears in no apparent distress at this time. Patient and/or ph family updated on plan of care and expected duration. Pain level reassessed. Patient is alert, oriented x 3, equal unlabored respirations, skin warm/dry/pink. Attempted to call report to second floor, receiving nurse unavailable, will attempt again in 10 min. Vital Signs: 09:36 BP 122 / 50; Pulse 74; Resp 20; Pulse Ox 97% on R/A; ph 10:19 BP 102 / 50; Pulse 63; Resp 20; Pulse Ox 96% ; sv 11:00 BP 130 / 45; Pulse 66; Resp 18; Pulse Ox 95% ; sv 12:00 BP 123 / 46; Pulse 65; Resp 16; Pulse Ox 95% ; sv 13:30 BP 116 / 46; Pulse 65; Resp 16; Pulse Ox 95% ; sv 14:30 BP 99 / 47; Pulse 68; Resp 18; Pulse Ox 96% on 2 lpm NC; sv 14:38 Pain 4/10; sv ED Course: 09:18 Patient arrived in ED. ph 09:25 Christian Amaya MD is Attending Physician. maria esther 09:35 Triage completed. ph 09:44 Arm band placed on. ph 09:49 X-ray completed. Portable x-ray completed in exam room. [email or web address] 09:50 XRAY Chest (1 view) In Process Unspecified. EDMS 10:16 Lianne Nathan, SOURAV is Primary Nurse. ph 10:23 Patient has correct armband on for positive identification. Placed in gown. Bed in low ph position. Call light in reach. Side rails up X2. Pulse ox on. NIBP on. Warm blanket given. 10:54 Patient moved to MRI via wheelchair. em2 10:56 Missed attempt(s): 20 gauge in right antecubital area. Bleeding controlled, band aid ph applied, catheter tip intact. 11:03 Brain Wo Cont In Process Unspecified. EDMS 11:50 Inserted saline lock: 22 gauge in left antecubital area, using aseptic technique. Blood ss collected. 13:[address] 13:12 US Extremity Venous W Compression Maxime In Process Unspecified. EDMS 13:12 Sharon Ramos MD is Hospitalizing Provider. [facility] 13:17 CT completed. Patient tolerated procedure well. Patient moved to CT via wheelchair. Patient moved back from CT. 13:19 CT Chest Abdomen Pelvis W/O Contrast: no iv no oral In Process Unspecified. EDMS 14:30 No provider procedures requiring assistance completed. Patient admitted, IV remains in sv place. intact. Administered Medications: 12:35 Drug: NS 0.9% 1000 ml Route: IV; Rate: 1 bolus; Site: right antecubital; ph 13:30 Follow up: Response: No adverse reaction; IV Status: Completed infusion; IV Intake: sv 1000ml 12:35 Drug: Thiamine 100 mg Route: IV; Rate: bolus; Site: right antecubital; ph 12:40 Follow up: Response: No adverse reaction; IV Status: Completed infusion sv 12:35 Drug: SOLU-Medrol 125 mg Route: IVP; Site: right antecubital; ph 13:00 Follow up: Response: No adverse reaction sv 12:36 Drug: foLIC Acid 1 mg Route: IVPB; Site: right antecubital; ph 12:40 Follow up: Response: No adverse reaction; IV Status: Completed infusion sv 12:40 Drug: Albuterol - atroVENT (3:1) (2.5 mg - 0.5 mg) 3 ml Route: Nebulizer; ph 13:00 Follow up: Response: No adverse reaction sv 13:59 Drug: Dilaudid 1 mg Route: IVP; Site: right antecubital; ph 14:38 Follow up: Pain 4/10 Adult; Response: No adverse reaction; Marked relief of symptoms; sv Pain is decreased 14:00 Drug: Zofran 4 mg Route: IVP; Site: right antecubital; ph 14:38 Follow up: Response: No adverse reaction sv Intake: 13:30 IV: 1000ml; Total: 1000ml. sv Outcome: 13:17 Decision to Hospitalize by Provider. maria esther 15:35 Patient left the ED. ph 15:35 Admitted to Tele accompanied by tech, family with patient, via wheelchair, with chart. ph 15:35 Condition: stable 15:35 Instructed on the need for admit. Signatures: Dispatcher [employer] Ana Kern RN RN sv Anderson, Corey, MD MD cha Ringgold, Jennifer [email or web address] Asuncion Boss RN RN ss Montes, Enrique em2 Hall, Patricia, RN RN ph Warren, Shannon Corrections: (The following items were deleted from the chart) 19:30 15:45 Patient left the ED. ph ph
--- NOTE | 2019-02-08 13:17 | EDPHYS ---
Physician Documentation [facility] Name: Betsey Martel Age: 53 yrs Sex: Female : 1965 Arrival Date: 02/08/2019 Time: 09:18 Bed 8 Private MD: NERIS Physician Christian Amaya HPI: 02/08 09:38 This 53 yrs old Female presents to ER via EMS with complaints of Shortness Of maria esther Breath. 09:38 The patient has shortness of breath at rest, with light activity. maria esther 09:38 Onset: The symptoms/episode began/occurred 2 day(s) ago. Duration: The symptoms are maria esther continuous, and are unchanged since they started. The patient presents with pain that is chronic, with no known mechanism of injury. Onset: The symptoms/episode began/occurred 3 week(s) ago. The patient presents with confusion, decreased mental status, trouble concentrating. 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 ph Historical: - Allergies: 09:43 Cymbalta; ph 09:43 Seroquel; ph 09:43 Wellbutrin; ph - Home Meds: 09:43 amlodipine 5 mg tab 1 tab once daily [Active]; biotin Oral daily [Active]; citalopram ph 20 mg tab 1 tab once daily [Active]; furosemide 20 mg Oral tab 1 tab once daily [Active]; hydromorphone 4 mg Oral tab four times a day [Active]; Klonopin 2 mg Oral tab as needed [Active]; levothyroxine 25 mcg tab once daily [Active]; pantoprazole 40 mg Oral TbEC 1 tab once daily [Active]; Phenergan Oral 25 mg as needed [Active]; ropinirole 2 mg Oral Tb24 nightly [Active]; tizanidine 2 mg Oral cap 1 caps twice a day [Active]; trazodone 75 mg nightly Oral tab nightly [Active]; - PMHx: 09:43 Anemia; BRAIN TUMOR 1996; CHF; Chronic pain; degenerative bone disease; Depression; ph ETHO INTOXICATION; GERD; Hip Pain; Hypertension; Hypothyroidism; osteoarthritis; kidney disease; Rheumatoid Arthritis; THORACIC AORTIC ANEURYSM; - Immunization history:: Adult Immunizations unknown. - Family history:: not pertinent. - Social history:: Smoking status: Patient uses tobacco products, smokes one pack cigarettes per day. - Ebola Screening: : No symptoms or risks identified at this time. ROS: 09:38 Constitutional: Negative for fever, chills, and weight loss, Eyes: Negative for injury, maria esther pain, redness, and discharge, ENT: Negative for injury, pain, and discharge, Neck: Negative for injury, pain, and swelling, Cardiovascular: Negative for chest pain, palpitations, and edema, Abdomen/GI: Negative for abdominal pain, nausea, vomiting, diarrhea, and constipation, : Negative for injury, bleeding, discharge, and swelling, MS/Extremity: Negative for injury and deformity, Skin: Negative for injury, rash, and discoloration, Psych: Negative for depression, anxiety, suicide ideation, homicidal ideation, and hallucinations, Allergy/Immunology: Negative for hives, rash, and allergies, Endocrine: Negative for neck swelling, polydipsia, polyuria, polyphagia, and marked weight changes, Hematologic/Lymphatic: Negative for swollen nodes, abnormal bleeding, and unusual bruising. 09:38 Respiratory: Positive for shortness of breath, on exertion. 09:38 MS/extremity: Positive for swelling, of the right leg and left leg. 09:38 Neuro: Positive for altered mental status, speech changes, weakness. Exam: 09:38 Constitutional: This is a well developed, well nourished patient who is awake, alert, maria esther and in no acute distress. Head/Face: Normocephalic, atraumatic. Eyes: Pupils equal round and reactive to light, extra-ocular motions intact. Lids and lashes normal. Conjunctiva and sclera are non-icteric and not injected. Cornea within normal limits. Periorbital areas with no swelling, redness, or edema. ENT: Nares patent. No nasal discharge, no septal abnormalities noted. Tympanic membranes are normal and external auditory canals are clear. Oropharynx with no redness, swelling, or masses, exudates, or evidence of obstruction, uvula midline. Mucous membranes moist. Neck: Trachea midline, no thyromegaly or masses palpated, and no cervical lymphadenopathy. Supple, full range of motion without nuchal rigidity, or vertebral point tenderness. No Meningismus. Chest/axilla: Normal chest wall appearance and motion. Nontender with no deformity. No lesions are appreciated. Cardiovascular: Regular rate and rhythm with a normal S1 and S2. No gallops, murmurs, or rubs. Normal PMI, no JVD. No pulse deficits. Abdomen/GI: Soft, non-tender, with normal bowel sounds. No distension or tympany. No guarding or rebound. No evidence of tenderness throughout. Back: No spinal tenderness. No costovertebral tenderness. Full range of motion. Skin: Warm, dry with normal turgor. Normal color with no rashes, no lesions, and no evidence of cellulitis. MS/ Extremity: Pulses equal, no cyanosis. Neurovascular intact. Full, normal range of motion. Neuro: Awake and alert, GCS 15, oriented to person, place, time, and situation. Cranial nerves II-XII grossly intact. Motor strength 5/5 in all extremities. Sensory grossly intact. Cerebellar exam normal. Normal gait. Psych: Awake, alert, with orientation to person, place and time. Behavior, mood, and affect are within normal limits. 09:38 Respiratory: the patient does not display signs of respiratory distress, Respirations: normal, Breath sounds: decreased breath sounds, that are mild. Vital Signs: 09:36 BP 122 / 50; Pulse 74; Resp 20; Pulse Ox 97% on R/A; ph 10:19 BP 102 / 50; Pulse 63; Resp 20; Pulse Ox 96% ; sv 11:00 BP 130 / 45; Pulse 66; Resp 18; Pulse Ox 95% ; sv 12:00 BP 123 / 46; Pulse 65; Resp 16; Pulse Ox 95% ; sv 13:30 BP 116 / 46; Pulse 65; Resp 16; Pulse Ox 95% ; sv 14:30 BP 99 / 47; Pulse 68; Resp 18; Pulse Ox 96% on 2 lpm NC; sv 14:38 Pain 4/10; sv MDM: 09:25 Patient medically screened. [facility] 09:41 Data reviewed: vital signs, nurses notes, lab test result(s), EKG, radiologic studies, [facility] MRI, plain films. 02/08 09:37 Order name: Basic Metabolic Panel; Complete Time: 13:00 [facility] 02/08 09:37 Order name: CBC with Diff; Complete Time: 12:20 [facility] 02/08 09:37 Order name: LFT's; Complete Time: 13:00 [facility] 02/08 09:37 Order name: Magnesium; Complete Time: 13:00 [facility] 02/08 09:37 Order name: NT PRO-BNP; Complete Time: 13:00 [facility] 02/08 09:37 Order name: PT-INR; Complete Time: 12:20 [facility] 02/08 09:37 Order name: Troponin (emerg Dept Use Only); Complete Time: 13:00 [facility] 02/08 09:37 Order name: Acetaminophen; Complete Time: 13:00 [facility] 02/08 09:37 Order name: ETOH Level; Complete Time: 13:00 [facility] 02/08 09:37 Order name: Ptt, Activated; Complete Time: 12:20 [facility] 02/08 09:37 Order name: Salicylate; Complete Time: 13:00 [facility] 02/08 09:37 Order name: Urine Drug Screen; Complete Time: 11:51 [facility] 02/08 09:37 Order name: Lipase; Complete Time: 13:00 [facility] 02/08 09:37 Order name: ABG; Complete Time: 10:18 [facility] 02/08 09:37 Order name: XRAY Chest (1 view); Complete Time: 10:18 [facility] 02/08 11:02 Order name: Brain Wo Cont; Complete Time: 11:51 EDMS 02/08 12:08 Order name: D-Dimer; Complete Time: 12:20 EDMS 02/08 12:21 Order name: US Extremity Venous W Compression Maxime; Complete Time: 13:42 [facility] 02/08 12:56 Order name: CT Chest Abdomen Pelvis W/O Contrast: no iv no oral; Complete Time: 13:42 [facility] 02/08 09:37 Order name: EKG; Complete Time: 09:39 [facility] 02/08 09:37 Order name: Cardiac monitoring; Complete Time: 09:47 [facility] 02/08 09:37 Order name: EKG - Nurse/Tech; Complete Time: 09:47 [facility] 02/08 09:37 Order name: IV Saline Lock; Complete Time: 11:50 [facility] 02/08 09:37 Order name: Labs collected and sent; Complete Time: 09:47 [facility] 02/08 09:37 Order name: O2 Per Protocol; Complete Time: 09:47 [facility] 02/08 09:37 Order name: O2 Sat Monitoring; Complete Time: 09:47 [facility] 02/08 09:37 Order name: Urine Dipstick-Ancillary (obtain specimen); Complete Time: 11:51 [facility] Administered Medications: 12:35 Drug: NS 0.9% 1000 ml Route: IV; Rate: 1 bolus; Site: right antecubital; ph 13:30 Follow up: Response: No adverse reaction; IV Status: Completed infusion; IV Intake: sv 1000ml 12:35 Drug: Thiamine 100 mg Route: IV; Rate: bolus; Site: right antecubital; ph 12:40 Follow up: Response: No adverse reaction; IV Status: Completed infusion sv 12:35 Drug: SOLU-Medrol 125 mg Route: IVP; Site: right antecubital; ph 13:00 Follow up: Response: No adverse reaction sv 12:36 Drug: foLIC Acid 1 mg Route: IVPB; Site: right antecubital; ph 12:40 Follow up: Response: No adverse reaction; IV Status: Completed infusion sv 12:40 Drug: Albuterol - atroVENT (3:1) (2.5 mg - 0.5 mg) 3 ml Route: Nebulizer; ph 13:00 Follow up: Response: No adverse reaction sv 13:59 Drug: Dilaudid 1 mg Route: IVP; Site: right antecubital; ph 14:38 Follow up: Pain 4/10 Adult; Response: No adverse reaction; Marked relief of symptoms; sv Pain is decreased 14:00 Drug: Zofran 4 mg Route: IVP; Site: right antecubital; ph 14:38 Follow up: Response: No adverse reaction sv Disposition: 02/08/19 13:17 Hospitalization ordered by Sharon Ramos for Inpatient Admission. Preliminary diagnosis are Dyspnea, Unspecified kidney failure - acute, Chronic obstructive pulmonary disease with (acute) exacerbation, Altered mental status, unspecified, Weakness, Other chronic pain, Tobacco use. - Bed requested for Telemetry/MedSurg (Inpatient). - Status is Inpatient Admission. ph - Condition is Fair. - Problem is new. - Symptoms have improved. UTI on Admission? No Signatures: Dispatcher [employer] EDAna Reese RN RN sv Woody, Diana, RN RN dw Anderson, Corey, MD MD cha Hall, Patricia, RN RN ph Corrections: (The following items were deleted from the chart) 11:02 09:39 MR STROKE PROTOCOL+MRI.RAD.BRZ ordered. EDMS EDMS 12:07 09:42 D-DIMER+COAG.LAB.BRZ ordered. EDMS EDMS 13:00 12:22 Chest For PE Angio+CT.RAD.BRZ ordered. EDMS EDMS 14:16 13:17 Hospitalization Ordered by Sharon Ramos MD for Inpatient Admission. Preliminary dw diagnosis is Dyspnea; Unspecified kidney failure - acute; Chronic obstructive pulmonary disease with (acute) exacerbation; Altered mental status, unspecified; Weakness; Other chronic pain; Tobacco use. Bed requested for Telemetry/MedSurg (Inpatient). Status is Inpatient Admission. Condition is Fair. Problem is new. Symptoms have improved. UTI on Admission? No. maria eshter 14:37 13:08 Santa ordered. maria esther sv 14:53 14:16 02/08/2019 13:17 Hospitalization Ordered by Sharon Ramos MD for Inpatient sv Admission. Preliminary diagnosis is Dyspnea; Unspecified kidney failure - acute; Chronic obstructive pulmonary disease with (acute) exacerbation; Altered mental status, unspecified; Weakness; Other chronic pain; Tobacco use. Bed requested for Telemetry/MedSurg (Inpatient). Status is Inpatient Admission. Condition is Fair. Problem is new. Symptoms have improved. UTI on Admission? No. dw 15:45 14:53 02/08/2019 13:17 Hospitalization Ordered by Sharon Ramos MD for Inpatient ph Admission. Preliminary diagnosis is Dyspnea; Unspecified kidney failure - acute; Chronic obstructive pulmonary disease with (acute) exacerbation; Altered mental status, unspecified; Weakness; Other chronic pain; Tobacco use. Bed requested for Telemetry/MedSurg (Inpatient). Status is Inpatient Admission. Condition is Fair. Problem is new. Symptoms have improved. UTI on Admission? No. sv
--- NOTE | 2019-02-08 13:29 | RAD REPORT ---
EXAM DESCRIPTION: CT - Chest Abd Pelvis Wo Con - 02/08/2019 1:19 pm CLINICAL HISTORY: Chest and abdominal pain COMPARISON: January 11, 2019 CT abdomen TECHNIQUE: Computed axial tomography of the chest, abdomen and pelvis was obtained. Oral contrast wa s given. IV contrast was not requested. All CT scans are performed using dose optimization technique as appropriate and may include automated exposure control or mA/KV adjustment according to patient size. FINDINGS: The evaluation of mediastinum, darryl, vessels and solid organs is limited secondary to the lack of IV contrast administration No mediastinal or hilar lymphadenopathy is seen. A thoracic aortic stent in place A pleural effusion is not present. A pericardial effusion is not seen. Minimal atelectasis right lower lobe. The remainder of the lungs are clear The liver, spleen, pancreas, adrenals and kidneys appear grossly normal There is no evidence of diverticulitis. The appendix is normal. The gallbladder has been removed. An adnexal mass is not noted IMPRESSION: Minimal right lower lobe atelectasis No acute abnormality involving the abdomen/pelvis
[2019-02-08] MEDS ORDERED: ONDANSETRON 4 MG/2 ML VIAL IV PRN (13:55)
[2019-02-08] MEDS ORDERED: IPRATROPIUM BROM 0.5MG/2.5ML NEB PRN ×2 (13:55→15:00)
[2019-02-08] MEDS ORDERED: ALBUTEROL 2.5 MG/3 ML NEB SOL NEB PRN ×2 (13:55→15:00)
[2019-02-08] MEDS ORDERED: HYDROMORPHONE HCL 1 MG/ML INJ ONE (13:56)
[2019-02-08] MEDS ORDERED: ONDANSETRON 4 MG/2 ML VIAL ONE (13:56)
[2019-02-08] MEDS ORDERED: NA CHLORIDE 0.9% 1,000 ML IV SCH (14:00)
[2019-02-08 16:27] VITALS: BMI 26.9
[2019-02-08] MEDS: ACETAMINOPHEN 500 MG TAB PO PRN (17:20)
--- NOTE | 2019-02-08 17:30 | CON ---
Date of Consultation: 02/08/2019 Consulting Physician: Sharon Ramos M.D. Reason For Consultation: Elevated BUN and creatinine, fluid management. History Of Present Illness: This is a pleasant 53-year-old female with significant past medical hist ory of hypertension, aortic aneurysm status post repair back on 1983, chronic kidney disease. Accord ing to her she known to have chronic kidney disease stage 4, recovered. Reviewing the record for the patient, the patient creatinine back in early January 1.8, GFR of 29, hypertension, patient was in her regular state of health. According to her, she lost her son a couple of weeks ago. Since then, she being stressing out. She took extra dose of her morphine. She started having some chest pain on th e right side. She took also Advil 2 tablet, start having nausea without any vomiting. The patient c roselyn to the hospital. Primary workup showed elevation in potassium 5.1, elevation BUN and creatinine, creatinine 2.4 with GFR down to 20. The patient again she only took a couple of tablets of Aleve. Denied any recent hospitalization. No IV contrast. No recent exposure to antibiotics, no rashes, no hematuria urea. The patient will review her home medication. There is no AMANDA inhibitor. The patie nt being on Lasix on daily basis. In the ER, her blood pressure being on the 90. Past Medical History: Include: 1.Hypertension. 2.Aortic dissection status post repair back in 1983. 3.Chronic kidney disease, baseline creatinine 1.8, GFR of 29 back in January 2019. 4.Anxiety. Allergies: TO QUETIAPINE AND BUPROPION. Family History: Positive for hypertension. Social History: Active smoker, active alcohol. Denies drugs abuse. Review of Systems: Head and Neck: No red eye. No ear pain. GI: Epigastric pain, nausea. No vomiting. : No polyuria. No dysuria. No hematuria. 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 Respiratory: No shortness of breath. Cardiovascular: Has right-sided chest pain. Endocrine: No polydipsia. Skin: No rash. Neurologic: Has anxiety. Musculoskeletal: No joint pain. Skin: No rash. Home Medications: Include trazodone, tizanidine, ropinirole, pantoprazole, Zofran, levothyroxine, La six 20 daily, amlodipine 5 mg, azithromycin, ceftriaxone. Current Medications In The Hospital: IV fluid. Physical Examination: Vital Signs: Blood pressure 95/62, pulse of 88. Chest: Clear to auscultation. Heart: S1 and S2, regular. Abdomen: Soft and nontender. Extremities: No edema. Laboratory Data: For the patient back in January 2019; creatinine 1.3, GFR of 40. Earlier creatinine 1.8, GFR of 29. Current lab data; sodium 135, potassium 5.1, bicarb 29, BUN 66, creatinine 2.4, calc ium 8.5, magnesium of 2. BNP of 1159. WBC 4.8, H and H 11.4/33.1, platelets 234. Urinalysis not do ne yet. Protein creatinine before is 0.7. Assessment And Plan: 1.Acute kidney injury on chronic kidney disease secondary to prerenal, secondary to gastrointestinal loss, superimposed with Lasix use. Looked to me on the dry side, I am going to discontinue Lasix. We will start the patient on IV hydration. Obstruction has been ruled out by the CT. We will monito r the patient. 2.Hypertension. Currently blood pressure on the lower side. I am going to hold all blood pressure medications especially Lasix. 3.Epigastric pain. As by primary. 4.Aortic dissection before. CT of the abdomen and pelvis was negative. Given the acute kidney inju ry, I am going to send for LFT and LDH to rule out any atheroembolic for the patient. We will send f or urine eosinophil. 5.Anxiety. As by primary. Thank you, Dr. Ramos, for allowing us to participate in the care of your patient. DELIA Voice ID: [id number] Report ID: [id number]
[2019-02-08] MEDS ORDERED: HYDROCODONE/APAP 7.5/325 MG TAB ONE (17:31)
[2019-02-08] MEDS: ENOXAPARIN 30 MG/0.3 ML SQ SCH (17:53)
[2019-02-08 18:44] LABS: Urine Protein/Creatinine Ratio 0.35 ratio (<0.15)
[2019-02-08 18:45] LABS: Urine Appearance CLEAR; Urine Bilirubin NEGATIVE (NEG); Urine Blood NEGATIVE (NEG); Urine Color YELLOW; Urine Glucose NEGATIVE (NEG); Urine Protein NEGATIVE (NEG); Urine Urobilinogen 0.2 mg/dL (0.2-1.0); Urine pH 5.5 (5.0-7.0)
[2019-02-08 19:02] LABS: Urine Microscopic Reflex ORDER UMIC
[2019-02-08 19:04] LABS: Urine Blood NEGATIVE (NEG); Urine Glucose NEGATIVE (NEG); Urine Protein NEGATIVE (NEG); Urine Specific Gravity 1.015 (1.005-1.030)
[2019-02-08 19:16] LABS: Urine Bacteria 20-50 /HPF (<20); Urine Culture Reflex Order REFLEXED; Urine RBC <5 /HPF (NONE SEEN)
[2019-02-08] MEDS ORDERED: ROPINIROLE HCL 1 MG TAB PO SCH (21:00)
[2019-02-08] MEDS ORDERED: HOME MED 1 EA UNK (Ropinirole Hcl [Ropinirole Hcl] 2 MG) PO SCH (21:00)
[2019-02-08] MEDS ORDERED: MELATONIN 3 MG TABLET PO PRN (21:30)
[2019-02-08] MEDS ORDERED: MELATONIN 3 MG TABLET PO ONE (21:49)
[2019-02-08] MEDS: METHYLPREDNISOLONE 40 MG INJ IV SCH (22:00)
[2019-02-08] MEDS: NA CHLORIDE 0.9% 1,000 ML IV SCH (22:00)
--- NOTE | 2019-02-09 02:49 | HP ---
Date of Admission: 02/08/2019 Chief Complaint: Confusion and shortness of breath. History Of Present Illness: The patient is a 53-year-old female with past medical history of stage 4 chronic kidney disease, hypertension, hypothyroidism, chronic pain syndrome secondary to osteoarthri tis, depression, who recently lost her son a couple of weeks ago, comes in with shortness of breath a nd confusion. The patient states that she is having difficulty remembering things and it should be n oted that the patient is on Dilaudid for chronic pain and has admitted to taking more than her prescr ibed dose due to her recent events. The patient's symptoms were constant, moderate, progressively wo rsening; therefore, she came into the ER. Her workup revealed a creatinine of 2.47. Her baseline is around 1.5. The patient's white count was normal. D-dimer was elevated. Her imaging studies inclu ding CT scan of the chest, abdomen, and pelvis were did not reveal much other than some right lower l obe atelectasis. The patient had an MRI of the brain done due to her confusion and CVA was ruled out . The patient was given Solu-Medrol breathing treatments and then referred for admission. When seen in the ER, she was awake, alert, oriented x3. Past Medical History: Hypertension; hypothyroidism; osteoarthritis; depression; chronic kidney disea se, stage IV; meningioma in 1986. Surgical History: Thoracic aortic rupture in 1983 with a dissection in 2012 with repair, cholecystec hector, hernia repair, ovarian cyst removal, right knee surgery, right shoulder replacement, x2. Allergies: TO DULOXETINE, SEROQUEL, AND WELLBUTRIN. Medications: List reviewed. Family History: Mother has heart disease, hypertension, stroke, breast cancer, Afib, and blood clots . Father has hypertension and brain disorder. Social History: The patient smokes daily. No significant alcohol use or illicit drug use. Review of Systems: Ten-point system reviewed, negative except as per HPI. Physical Examination: Vital Signs: Blood pressure 122/50, pulse 74, respirations 20, O2 97% on room air. General: Awake, alert, oriented x3. Some mild distress. Appears older than stated age. Ill-appear ing female. HEENT: Normocephalic, atraumatic. PERRLA. EOMI. Moist mucous membranes. Oropharynx is clear and conjunctivae are anicteric. Neck: Supple. No JVD. Trachea midline. CV: S1, S2. Regular rate and rhythm. Peripheral pulses weak bilaterally. Respiratory: Moving air well bilaterally. No wheezing or stridor. No use of accessory muscles. Gastrointestinal: Soft, nontender, nondistended. Positive bowel sounds. No guarding or rigidity. Extremities: No clubbing, cyanosis, or edema. No calf tenderness. Neuro: Cranial nerves 2-12 intact grossly. No focal neurological deficit. The patient does have so me word-finding difficulty. Skin: No rashes. Normal skin turgor. Psych: Mood is depressed. Affect is congruent with mood. Insight and judgment are fair. Laboratory Data: WBC 4.8, H and H 11.4 and 33.1, platelets 234, neutrophils 70%. INR 0.94. D-dimer 949. ABG; pH 7.34, pCO2 48, PO2 93, bicarb 25. Sodium 135, potassium 5.1, chloride 100, CO2 29, BU N 66, creatinine 2.47, glucose 84, calcium 8.5, magnesium 2. BNP 1159. Troponin less than 0.02. UD S is positive for opiates. Serum alcohol level less than 3. Acetaminophen level less than 2. Salic ylates 2.3. Imaging Studies: CT chest, abdomen, pelvis without contrast shows minimal right lower lobe atelectas is, no acute abnormality involving the abdomen or pelvis. Doppler venous study shows no evidence of DVT in either lower extremity. MRI of the brain shows no acute CVA or other acute intracranial abnor mality. Evidence of postsurgical change in left cerebellar hemisphere without unexpected or unusual finding. Assessment And Plan: A 53-year-old female with: 1.Acute encephalopathy, unclear etiology. MRI of the brain is negative for acute CVA. May be secon moses to pain medications versus renal pathology. 2.Acute on chronic kidney injury. Creatinine is above baseline. We will continue with IV fluids, a void NSAIDs and monitor creatinine. 3.Chronic pain syndrome, on chronic narcotics. We will hold medications for now due to altered ment al status. 4.Essential hypertension. Resume home medications as appropriate, stable. 5.Hypothyroidism. We will continue Synthroid. 6.Generalized osteoarthritis. Continue pain medications. 7.Depression, major depressive disorder, recurrent. We will continue home meds as appropriate. 8.GI and DVT prophylaxis with PPI and Lovenox renally dosed. 9.COPD with acute on chronic symptoms. We will start her on IV steroids, breathing treatments. Admit the patient to Med/Surg, place as observation. DEBBIE Voice ID: [id number]
[2019-02-09] MEDS: ACETAMINOPHEN 500 MG TAB PO PRN (04:10)
[2019-02-09] MEDS: NA CHLORIDE 0.9% 1,000 ML IV SCH (04:54)
[2019-02-09 05:57] LABS: Absolute Lymphocytes (CBC) 0.4 K/uL (0.7-4.9); Absolute Monocytes 0.1 K/uL (0.1-1.3); Absolute Neutrophil 2.3 K/uL (1.8-8.0); Basophils % 0.1 % (0-1.3); Hematocrit 30.3 % (36.0-45.0); Lymphocytes % 13.4 % (15.3-44.8); MPV 7.8 fL (7.6-11.3); Monocytes % 2.4 % (3.3-12.3); RBC Red Blood Cell Count 3.15 M/uL (3.86-4.86)
[2019-02-09] MEDS ORDERED: LEVOTHYROXINE SOD 0.025 MG TAB PO SCH (06:30)
[2019-02-09 06:31] LABS: Albumin 3.2 g/dL (3.4-5.0); Bilirubin Total 0.2 mg/dL (0.2-1.0); Protein, Total 6.3 g/dL (6.4-8.2); Thyroid Stimulating Hormone 0.22 uIU/mL (0.360-3.740)
[2019-02-09 06:40] LABS: Potassium 5.8 mmol/L (3.5-5.1)
[2019-02-09 06:49] LABS: Blood Morphology Comment NOT SEEN (NOT SEEN); Platelet Estimate ADEQ; Urine White Blood Cell Casts OK
[2019-02-09] MEDS ORDERED: PANTOPRAZOLE 40MG TABLET PO SCH (07:30)
[2019-02-09] MEDS ORDERED: SODIUM BICARB 50 MEQ/50ML VIAL IV ONE (08:30)
[2019-02-09] MEDS ORDERED: D50W 25 GM/50 ML SYRINGE IV ONE (08:30)
[2019-02-09] MEDS ORDERED: GLUCAGON 1 MG/VIAL IM PRN (08:30)
[2019-02-09] MEDS ORDERED: INSULIN -REGULAR HUMAN 50 UNIT/0.5 ML ML IV ONE (08:30)
[2019-02-09] MEDS ORDERED: D50W 25 GM/50 ML SYRINGE IV PRN (08:30)
[2019-02-09] MEDS ORDERED: CALCIUM GLUC 10% INJ 4.65 MEQ in NA CHLORIDE 0.9% 100 ML IV ONE (08:30)
[2019-02-09] MEDS ORDERED: SOD POLYSTYREN SUL 15 GM/60 ML UCUP PO ONE (08:32)
[2019-02-09] MEDS: ENOXAPARIN 30 MG/0.3 ML SQ SCH (08:56)
[2019-02-09] MEDS ORDERED: AMLODIPINE 5 MG TAB PO SCH (09:00)
[2019-02-09] MEDS ORDERED: TIZANIDINE 4 MG TABLET PO SCH (09:00)
[2019-02-09] MEDS ORDERED: FUROSEMIDE 20 MG TABLET PO SCH (09:00)
[2019-02-09] MEDS ORDERED: TIZANIDINE HCL 2 MG PO SCH (09:00)
[2019-02-09] MEDS ORDERED: HOME MED 1 EA UNK (Citalopram Hydrobromide [Celexa] 40 MG) PO SCH (09:00)
[2019-02-09] MEDS ORDERED: CITALOPRAM 10 MG TABLET PO SCH (09:00)
[2019-02-09] MEDS: METHYLPREDNISOLONE 40 MG INJ IV SCH (09:01)
[2019-02-09] MEDS ORDERED: HYDROMORPHONE ORAL 4 MG TAB PO PRN (09:21)
[2019-02-09 09:34] VITALS: O2SAT 95
[2019-02-09] MEDS ORDERED: clonazePAM 1 MG TAB PO ONE (12:23)
[2019-02-09 18:37] VITALS: BP 178/73; TEMP 97.6
--- NOTE | 2019-02-09 22:36 | P.CNS ---
Date of Consult: 02/09/19 Reason for Consult: EVER Requesting Physician: Sharon Ramos Chief Complaint: Dyspnea/ AMS History of Present Illness: The patient is a 53-year-old female with past medical history of stage 4 chronic kidney disease, hypertension, hypothyroidism, chronic pain syndrome secondary to osteoarthritis, depression, who recently lost her son a couple of weeks ago, comes in with shortness of breath and confusion. The patient states that she is having difficulty remembering things and it should be noted that the patient is on Dilaudid for chronic pain and has admitted to taking more than her prescribed dose due to her recent events. The patient's symptoms were constant, moderate, progressively worsening; therefore, she came into the ER. Her workup revealed a creatinine of 2.47. Her baseline is around 1.5. The patient's white count was normal. D-dimer was elevated. Her imaging studies including CT scan of the chest, abdomen, and pelvis were did not reveal much other than some right lower lobe atelectasis. The patient had an MRI of the brain done due to her confusion and CVA was ruled out. The patient was given Solu-Medrol breathing treatments and then referred for admission. When seen in the ER, she was awake, alert, oriented x3. 09:38 This 53 yrs old Female presents to ER via EMS with complaints of Shortness Of maria esther Breath. 09:38 The patient has shortness of breath at rest, with light activity. maria esther 09:38 Onset: The symptoms/episode began/occurred 2 day(s) ago. Duration: The symptoms are maria esther continuous, and are unchanged since they started. The patient presents with pain that is chronic, with no known mechanism of injury. Onset: The symptoms/ episode began/occurred 3 week(s) ago. The patient presents with confusion, decreased mental status, trouble concentrating. Allergies duloxetine HCl [From Cymbalta] Allergy (Intermediate, Verified 11/24/15 00:45) EDEMA quetiapine fumarate [From Seroquel] Allergy (Intermediate, Verified 11/24/15 00: 45) EDEMA bupropion HCl [From Wellbutrin] Allergy (Verified 11/24/15 00:45) Unknown Home Medications: Citalopram Hydrobromide [Celexa] 40 mg PO DAILY 02/11/12 Furosemide 20 mg PO DAILY 04/04/12 Ropinirole HCl 2 mg PO BEDTIME 02/11/12 Tizanidine HCl 2 mg PO BID 02/11/12 Hydromorphone [Dilaudid*] 4 mg PO TID PRN 02/26/15 Levothyroxine [Synthroid*] 0.025 mg PO DAILY 02/26/15 Pantoprazole [Protonix Tab*] 40 mg PO DAILY 02/26/15 Trazodone [Desyrel*] 75 mg PO DAILY 02/26/15 Amlodipine [Norvasc*] 5 mg PO DAILY 09/26/17 Albuterol Inhaler [Ventolin Inhaler*] 2 puff IH Q6H PRN #1 hfa.aer.[id number] 02/09/19 predniSONE [Deltasone] 10 mg PO BID #10 tab 02/09/19 - Past Medical/Surgical History Diabetic: No -: HTN -: Hypothyroidism -: osteoarthritis -: depression -: Meningioma 1986 -: Thoracic aorta [id number] -: Toracic aorata dissection 2012 -: Cholecysectomy -: Hernia repair -: Ovarian cyst removal -: R knee sx -: R shoulder replacement -: X 2 - Family History Mother Medical History: Heart disease, Hypertension, Stroke, Cancer Notes: A-fib, breast cancer, blood clots Father Medical History: Hypertension, Other (see notes) Notes: Brain disorder - Social History Smoking Status: Current every day smoker Alcohol use: Yes CD- Drugs: No Caffeine use: Yes Review of Systems 10-point ROS is otherwise unremarkable General: Weakness, Malaise Respiratory: SOB with Excertion Gastrointestinal: Nausea Neurological: Weakness Physical Examination Temp Pulse Resp BP Pulse Ox 97.6 F 53 18 178/73 H 91 02/09/19 16:00 02/09/19 16:00 02/09/19 16:00 02/09/19 16:00 02/09/19 16:00 General: In no apparent distress, Cooperative HEENT: Atraumatic Neck: Supple Respiratory: Clear to auscultation bilaterally Cardiovascular: No edema, Regular rate/rhythm Gastrointestinal: Soft and benign, Non-distended, No ascites Musculoskeletal: No clubbing, No contractures Integumentary: No rashes, No cyanosis Neurological: Normal speech Blood work reviewed in the chart. Creatinine 2.47 to 1.42 Imagings Data: EXAM DESCRIPTION: CT - Chest Abd Pelvis Wo Con - 02/08/2019 1:19 pm CLINICAL HISTORY: Chest and abdominal pain COMPARISON: January 11, 2019 CT abdomen TECHNIQUE: Computed axial tomography of the chest, abdomen and pelvis was obtained. Oral contrast was given. IV contrast was not requested. All CT scans are performed using dose optimization technique as appropriate and may include automated exposure control or mA/KV adjustment according to patient size. FINDINGS: The evaluation of mediastinum, darryl, vessels and solid organs is limited secondary to the lack of IV contrast administration No mediastinal or hilar lymphadenopathy is seen. A thoracic aortic stent in place A pleural effusion is not present. A pericardial effusion is not seen. Minimal atelectasis right lower lobe. The remainder of the lungs are clear The liver, spleen, pancreas, adrenals and kidneys appear grossly normal There is no evidence of diverticulitis. The appendix is normal. The gallbladder has been removed. An adnexal mass is not noted IMPRESSION: Minimal right lower lobe atelectasis No acute abnormality involving the abdomen/pelvis Conclusions/Impression: A/ EVER likely due to hypovolemia. +NSAIDs. CKD III. Hyperkalemia. Hyponatremia. Anemia in chronic illness. HTN with CKD. Metabolic encephalopathy. P/ Continue current POC and Medications. Agree with IVF and holding diuretics. Encourage nutrition and hydration. Restart home medications as indicated. No NSAIDs. AM labs. Daily weight. Case discussed with Dr. Ramos. Thank you kindly for the consultation.
--- NOTE | 2019-02-10 00:13 | DS ---
Date of Discharge: 02/09/2019 Consultants: Dr. Krause and Dr. Guerra with Nephrology, Dr. Noyola, Neurology. Discharge Diagnoses: 1. Acute metabolic encephalopathy. 2. Acute on chronic kidney injury, resolving. 3. Chronic pain syndrome, on chronic narcotics. 4. Essential hypertension, stable. 5. Hypothyroidism. 6. Generalized osteoarthritis. 7. Major depressive disorder, recurrent. 8. Acute COPD exacerbation. Hospital Course: The patient is a 53-year-old female, who comes into the hospital with confusion and shortness of breath. The patient was found to have some right lower lobe atelectasis on imaging studies, did have a COPD exacerbation. Clinically, she was started on IV steroids and breathing treatments. The patient did well and her shortness of breath improved. Her creatinine was above her baseline at 2.47. She usually sees Dr. Guerra. Initially, the patient used to see Dr. Medina. The patient was started on IV fluids. Her creatinine improved and was back to baseline. She was cleared from nephrology standpoint. The patient's Doppler venous study did not show any DVT. She did have some confusion and some word-finding difficulty. The patient was recently undergoing stressful situation with a of her son a couple of weeks ago. MRI of the brain was done, but there was no CVA. Dr. Noyola with Neurology was consulted. He recommended outpatient followup in his office as there is no indication of stroke at this point. There was no seizure-like activity. The patient, of note, is on significant amount of sedative medications including muscle relaxants, hydromorphone, tizanidine, trazodone. These were held and the patient's condition improved slightly. Likely her altered mental status was multifactorial relating to her increased BUN and encephalopathy from acute kidney injury along with her sedative medications. The patient did well. Overall, her status was back to baseline. Dr. Noyola recommended speech therapy evaluation due to disarticulation. She was evaluated by Speech. No further recommendations were made by speech therapist. The patient was then cleared for discharge home and was sent home in a stable condition. Activity: No driving or operating heavy machinery while on narcotics. Followup: She will need to follow up with her PCP in 2-3 days. Follow up with logistic specialist, Dr. Guerra, in 2 weeks. Follow up with neurologist, Dr. Noyola , in 2 weeks. Return to ER for worsening condition. Diet: Renal. Medications: As per medication reconciliation list. Physical Examination: General: Awake, alert, oriented, no acute distress. CV: S1, S2. No murmurs. Respiratory: Moving air well bilaterally. No wheezing. Gastrointestinal: Abdomen is soft, nontender, nondistended. Positive bowel sounds. Extremities: No clubbing, cyanosis, or edema. Neuro: Nonfocal. SA/MODL Voice ID: [id number] Report ID: [id number] MTDLeigh
== END 2019-02-09 17:30 | disposition home or self-care (01) ==
LOC: ER 09:25 → ERHOLD 13:53 → 2ND 15:19
PROVIDERS: ADMIT Family Medicine; ATTEND Family Medicine
DX: J44.1 Chronic obstructive pulmonary disease with (acute) exacerbation (principal); I12.9 Hypertensive chronic kidney disease with stage 1 through stage 4 chronic kidney disease, or unspecified chronic kidney disease; N18.3 Chronic kidney disease, stage 3 (moderate); N17.9 Acute kidney failure, unspecified; E87.1 Hypo-osmolality and hyponatremia; E87.5 Hyperkalemia; G89.4 Chronic pain syndrome; E03.9 Hypothyroidism, unspecified; M15.9 Polyosteoarthritis, unspecified; F32.9 Major depressive disorder, single episode, unspecified; G93.41 Metabolic encephalopathy
CPT/HCPCS: 96361; 87088; 85025 ×2; 87086; 80048; 36415; 80320; 83735; 80329 ×2; 83615; 84132 ×2; 85610; 85379; 80076; 80307 ×8; 85730; 80069; 84443; 82570; 84484; 83690; 83970; 80053; 83880; 86160 ×2; 84156; 71250; 74176; 71045; 93970; 70551; 92523; 94640; 82805; 94760 ×3; 96375; 96374; 99285; J3411; J0610; J1650 ×2; J1170; J7030 ×3; J2930; J2405; J2920 ×2; G0378 ×2; 81003; 81015; 93005

== ENCOUNTER 2019-03-31 18:35 | Emergency (ER) | payer OTHER ==
--- OUTSIDE RECORDS SUMMARY | 2019-03-31 18:38 | XMS REPORT ---
:1965 Author Organization [facility] Address [address] [place] [address] Dr. Phillips [address] [place] [id number] Care Team Providers Name Role Phone Unavailable Unavailable Unavailable Problems This patient has no known problems. Allergies, Adverse Reactions, Alerts This patient has no known allergies or adverse reactions. Medications This patient has no known medications.
--- OUTSIDE RECORDS SUMMARY | 2019-03-31 18:38 | XMS REPORT | Clinical Summary ---
:1965 Author Organization [facility] Address [address] [place] [address] Care Team Providers Name Role Phone Gibran [...] of right MD shoulder 10/25/2018 Telephone Orthopedic Tae Bishop MD 10/18/2018 Telephone Orthopedic Tae Bishop MD 10/06/2018 Office Visit Orthopedic Surgery Tae Salazar, Acute pain of right shoulder (Primary Dx); Failed orthopedic implant, initial encounter ([facility]) 07/01/2018 Telephone Orthopedic Tae Bishop MD 05/19/2018 Office Visit Orthopedic Tae Bishop, Acute pain of right shoulder (Primary Dx); Failed orthopedic implant, initial encounter after 03/30/2018 Social History Tobacco Use Types Packs/Day Years [...] Taken Blood Pressure 194/91 11/22/2018 2:15 PM [employer] Pulse 60 11/22/2018 2:15 PM [employer] Temperature - - Respiratory Rate 18 11/22/2018 1:12 PM [employer] Oxygen Saturation - - Inhaled Oxygen Concentration - - Weight 72.6 kg (160 lb) 11/22/2018 1:12 PM [employer] Height 167.6 cm (5' 6") 11/22/2018 1:12 PM [employer] Body Mass Index 25.82 11/22/2018 1:12 PM [employer] Plan of Treatment Date Type Specialty Care Team Description 06/09/2019 Hospital Encounter Orthopedic Surgery Tae Salazar MD [address] [place] [id number] [phone] 06/09/2019 Surgery Orthopedic Surgery Tae Salazar, RIGHT SHOULDER EXCISION HETERTOPIC [address] [facility] [address] [place], [place] [id number] Health Maintenance Due Date Last Done Comments BREAST CANCER SCREENING 2014 COLON CANCER SCREENING 2014 SHINGLES VACCINES (#1) 2014 INFLUENZA VACCINE 06/09/2019 07/25/2018 Procedures Procedure Name Priority Date/Time Associated Comments Diagnosis FL RAD NEEDLE Routine 11/22/2018 2:30 PM Acute pain of right Results for this ASPIRATION [employer] shoulder procedure are in the results section. CELL COUNT AND Routine 11/22/2018 2:05 PM Results for this DIFFERENTIAL, BODY [employer] procedure are in FLUID the results section. GRAM STAIN Routine 11/22/2018 2:05 PM Results for this [employer] procedure are in the results section. AEROBIC CULTURE Routine 11/22/2018 2:05 PM Results for this [employer] procedure are in the results section. NM BONE SCAN 3 PHASE Routine 11/22/2018 12:36 PM Acute pain of right Results for this [employer] shoulder procedure are in the results section. CT UPPER EXTREMITY Routine 11/22/2018 10:48 AM Acute pain of right Results for this WO RIGHT [employer] shoulder procedure are in the results section. after 03/30/2018 Results FL Rad Needle Aspiration (11/22/2018 2:30 PM [employer]) Specimen Narrative Performed At EXAMINATION:FL RAD NEEDLE ASPIRATION [facility] CLINICAL HISTORY:M25.511 Pain in right shoulder, [...] cultures and lab work as ordered. [facility]-[id number] Procedure Note Hm Interface, Radiology Results Incoming - 11/22/2018 2:43 PM [employer] EXAMINATION: FL RAD NEEDLE ASPIRATION CLINICAL HISTORY: [...] cultures and lab work as ordered. [facility]-[id number] Performing Organization Address City/[facility] Phone Number [address] [address] Aerobic culture (11/22/2018 2:05 PM [employer]) Pathologist [facility] Aerobic culture No growth after 3 days. [facility] isolate Comment: HOSPITAL Specimen Information Specimen Source: Aspirate [facility]ate Performing Organization Address City/[facility] Phone Number [facility] DEPARTMENT OF PATHOLOGY AND [address] [place] [id number] [address] Gram stain (11/22/2018 2:05 PM [employer]ER) Pathologist [facility] Gram stain isolate No WBC's or organisms seen. [facility] Comment: HOSPITAL Specimen Information Specimen Source: Aspirate [facility]imen [facility] Spec[facility] Aspirate Performing Organization Address [facility] Phone Number [facility] DEPARTMENT OF PATHOLOGY AND [address] [place] [id number] [place] [phone] Cell count and differential, body fluid (11/22/2018 2:05 PM [employer]) Misc fluid type SynovialComment: [facility] Color, fluid Red [facility] Appearance, fluid Hazy [facility] RBC, fluid SEE /CMM [facility] COMMENTComment: [facility] 3+ (10,000 - 20,000 RBC/CMM) Nucleated cells, 239 /CMM [facility] Fluid mononuclear See Diff [facility] Neutrophils, fluid 57 % [facility] Lymphocytes, fluid 33 % [facility] Metamyelocytes, 10 % [facility] Specimen Fluid Narrative Performed At [facility] DEPARTMENT OF PATHOLOGY AND GENOMIC MEDICINE Performing Organization Address City/[facility] Phone Number [facility] DEPARTMENT OF PATHOLOGY AND [address] [place] [phone] GENOMIC MEDICINE [facility] [address] [place] [address] NM Bone Scan 3 Phase (11/22/2018 12:36 PM [employer]) Specimen Narrative Performed At PROCEDURE:NM BONE SCAN 3 [...] 1. Uncomplicated appearing right shoulder prosthesis. [facility]-[id number] Procedure Note Interface, Radiology Results Incoming - 11/22/2018 1:37 PM [employer] PROCEDURE: NM BONE SCAN 3 PHASE INDICATION: [...] 1. Uncomplicated appearing right shoulder prosthesis. [facility]-[id number] Performing Organization Address City/State/Zipcode Phone Number [facility] [address] [place] [address] CT Upper Extremity Wo Right (11/22/2018 10:48 AM [employer]) Specimen Narrative Performed At EXAMINATION:CT UPPER EXTREMITY WO [...] Radiology Results Incoming - 11/22/2018 11:49 AM [employer] EXAMINATION: CT UPPER EXTREMITY WO RIGHT INDICATION: [...] Additional findings as above. Performing Organization Address City/State/[facility] Phone Number [employer] [address] [place] [address] after 03/30/2018 Insurance Payer Benefit Plan / Subscriber ID Effective Dates Phone Address Type Group [facility] MEDICARE [facility] DUAL COMPLETE xxxxxxxxx 2017-Present [facility] MEDICAID MEDICAID xxxxxxxxx 2018-Present Medicaid Advance Directives Patient has advance care planning documents on file. For more information, please contact:Hugo Casillas[address] [place] [address]
[2019-03-31 19:20] LABS: Protime INR 0.91
[2019-03-31 19:25] LABS: Absolute Lymphocytes (CBC) 3.6 K/uL (0.7-4.9); Absolute Monocytes 0.7 K/uL (0.1-1.3); Absolute Neutrophil 6.5 K/uL (1.8-8.0); Basophils % 0.8 % (0-1.3); Eosinophils % 1.7 % (0-4.4); Hematocrit 40.3 % (36.0-45.0); Lymphocytes % 32.3 % (15.3-44.8); MPV 7.6 fL (7.6-11.3); Monocytes % 6.1 % (3.3-12.3); RBC Red Blood Cell Count 4.13 M/uL (3.86-4.86)
--- NOTE | 2019-03-31 19:29 | RAD REPORT ---
EXAM DESCRIPTION: [place] Single View03/31/2019 7:22 pm CLINICAL HISTORY: Chest pain COMPARISON: February 2019 FINDINGS: The lungs appear clear of acute infiltrate. The heart is borderline enlarged Aortic stent in place IMPRESSION: No acute abnormalities displayed
[2019-03-31 19:35] LABS: ALT/SGPT 22 U/L (12-78); AST/SGOT 17 U/L (15-37); Albumin 4.3 g/dL (3.4-5.0); Alkaline Phosphatase 116 U/L (45-117); BUN Blood Urea Nitrogen 43 mg/dL (7-18); Bicarbonate 25 mmol/L (21-32); Bilirubin Direct < 0.1 mg/dL (0-0.2); Bilirubin Total 0.3 mg/dL (0.2-1.0); Glucose Level 138 mg/dL (74-106); Magnesium 1.7 mg/dL (1.8-2.4); NT PRO-BNP 458 pg/mL (<125); Potassium 4.6 mmol/L (3.5-5.1); Protein, Total 7.6 g/dL (6.4-8.2); Sodium Level 139 mmol/L (136-145)
[2019-03-31] MEDS ORDERED: FENTANYL CITR 100 MCG/2 ML ONE (19:41)
[2019-03-31] MEDS ORDERED: HYDROMORPHONE HCL 1 MG/ML INJ ONE ×2 (20:14→21:49)
[2019-03-31] MEDS ORDERED: NA CHLORIDE 0.9% 1,000 ML ONE (20:39)
--- NOTE | 2019-03-31 20:48 | RAD REPORT ---
EXAM DESCRIPTION: CT - Angio Aorta For Dissection - 03/31/2019 8:22 pm CLINICAL HISTORY: . Chest and abdominal pain COMPARISON: None TECHNIQUE: The creatinine is elevated. Ordering physician feels that the benefits of diagnosing an a ortic dissection outweigh the risks of renal injury. Computed tomography angiography of the chest, abdomen pelvis were obtained. 97 cc Isovue 370 was admi nistered intravenously. Coronal and sagittal reconstruction were performed. MIP 3D reconstruction was performed All CT scans are performed using dose optimization technique as appropriate and may include automated exposure control or mA/KV adjustment according to patient size. FINDINGS: An aortic dissection is not seen. An aortic aneurysm is not displayed. A stent has been p laced into a cart a huffman of the descending thoracic aorta The celiac, SMA and SERGO are patent . 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 A pericardial effusion is not seen. A pleural effusion is not n oted. The liver,spleen, pancreas adrenals kidneys demonstrate no significant abnormality. . There no evidence diverticulitis. No ascites is noted. 2 centimeter area of narrowing involving the transverse colon Mild gastric distention IMPRESSION: Negative for an aortic dissection. Mild gastric distention 2 centimeter area of narrowing involving the transverse colon may be secondary to spasm or mass. If t he patient has not had recent colonoscopy this would be recommended.
[2019-03-31] MEDS ORDERED: ASPIRIN 81 MG CHEWABLE TABLET ONE (21:49)
[2019-03-31] MEDS ORDERED: ENOXAPARIN 80 MG/0.8 ML SQ ONE (21:50)
--- NOTE | 2019-03-31 21:57 | EDPHYS ---
Physician Documentation [facility] Name: Betsey Martel Age: 53 yrs Sex: Female : 1965 Arrival Date: 03/31/2019 Time: 18:37 Bed 2 Private MD: ED Physician Magdy Macdonald HPI: 03/31 21:39 This 53 yrs old Female presents to ER via Ambulatory with complaints of Chest gs Pain > 30 y/o. 21:39 The patient or guardian reports chest pain that is located primarily in the anterior gs chest wall. Onset: this morning. The pain radiates to back. Associated signs and symptoms: Pertinent positives: shortness of breath. The chest pain is described as a heaviness, sharp. Duration: The patient or guardian reports a single episode, that is still ongoing. Modifying factors: The symptoms are alleviated by nothing. the symptoms are aggravated by nothing. Severity of pain: At its worst the pain was severe in the emergency department the pain is unchanged. The patient has experienced similar episodes in the past, a few times. The patient has not recently seen a physician. 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: 20:57 LMP N/A - Post-menopause lp1 Historical: - Allergies: 18:42 Cymbalta; tw2 18:42 Seroquel; tw2 18:42 Wellbutrin; tw2 18:42 Demerol; tw2 - Home Meds: 18:42 levothyroxine 25 mcg tab once daily [Active]; pantoprazole 40 mg Oral TbEC 1 tab once tw2 daily [Active]; hydromorphone 4 mg Oral tab four times a day [Active]; Phenergan Oral 25 mg as needed [Active]; Klonopin 2 mg Oral tab as needed [Active]; furosemide 20 mg Oral tab 1 tab once daily [Active]; tizanidine 2 mg Oral cap 1 caps twice a day [Active]; trazodone 75 mg nightly Oral tab nightly [Active]; ropinirole 2 mg Oral Tb24 nightly [Active]; biotin Oral daily [Active]; citalopram 20 mg tab 1 tab once daily [Active]; amlodipine 5 mg tab 1 tab once daily [Active]; - PMHx: 18:42 THORACIC AORTIC ANEURYSM; Rheumatoid Arthritis; kidney disease; Hypothyroidism; tw2 Hypertension; osteoarthritis; ETOH; GERD; Hip Pain; degenerative bone disease; Depression; BRAIN TUMOR 1997; Chronic pain; Anemia; CHF; - Immunization history:: Adult Immunizations. - Social history:: Smoking status: Patient uses tobacco products, smokes one pack cigarettes per day. - Ebola Screening: : Patient denies travel to an Ebola-affected area in the 21 days before illness onset. ROS: 21:39 All other systems are negative. gs Exam: 21:39 Head/Face: Normocephalic, atraumatic. Eyes: Pupils equal round and reactive to light, gs extra-ocular motions intact. Lids and lashes normal. Conjunctiva and sclera are non-icteric and not injected. Cornea within normal limits. Periorbital areas with no swelling, redness, or edema. ENT: Nares patent. No nasal discharge, no septal abnormalities noted. Tympanic membranes are normal and external auditory canals are clear. Oropharynx with no redness, swelling, or masses, exudates, or evidence of obstruction, uvula midline. Mucous membranes moist. Neck: Trachea midline, no thyromegaly or masses palpated, and no cervical lymphadenopathy. Supple, full range of motion without nuchal rigidity, or vertebral point tenderness. No Meningismus. Chest/axilla: Normal chest wall appearance and motion. Nontender with no deformity. No lesions are appreciated. Cardiovascular: Regular rate and rhythm with a normal S1 and S2. No gallops, murmurs, or rubs. Normal PMI, no JVD. No pulse deficits. Respiratory: Lungs have equal breath sounds bilaterally, clear to auscultation and percussion. No rales, rhonchi or wheezes noted. No increased work of breathing, no retractions or nasal flaring. Abdomen/GI: Soft, non-tender, with normal bowel sounds. No distension or tympany. No guarding or rebound. No evidence of tenderness throughout. Back: No spinal tenderness. No costovertebral tenderness. Full range of motion. Skin: Warm, dry with normal turgor. Normal color with no rashes, no lesions, and no evidence of cellulitis. MS/ Extremity: Pulses equal, no cyanosis. Neurovascular intact. Full, normal range of motion. Neuro: Awake and alert, GCS 15, oriented to person, place, time, and situation. Cranial nerves II-XII grossly intact. Motor strength 5/5 in all extremities. Sensory grossly intact. Cerebellar exam normal. Normal gait. 21:39 Constitutional: The patient appears alert, awake, uncomfortable. 21:39 ECG was reviewed by the Attending Physician. 21:54 ECG was reviewed by the Attending Physician. Vital Signs: 18:36 BP 165 / 72; Pulse 136; Resp 20; Temp 97.6(TE); Pulse Ox 99% on R/A; Weight 71.21 kg tw2 (R); Height 5 ft. 6 in. (167.64 cm); Pain 10/10; 18:52 Pulse 86; tw2 19:33 BP 153 / 87; Pulse 86; Resp 14; Pulse Ox 100% on R/A; Pain 8/10; lp1 19:45 BP 149 / 88; Pulse 78; Resp 12; Pulse Ox 99% on R/A; lp1 20:00 BP 134 / 81; Pulse 79; Resp 12; Pulse Ox 100% on R/A; Pain 9/10; lp1 20:32 BP 127 / 69; Pulse 80; Resp 12; Pulse Ox 100% on R/A; Pain 7/10; lp1 21:40 BP 140 / 89; Pulse 88; Resp 16; Temp 97.5(O); Pulse Ox 100% on R/A; Pain 8/10; lp1 22:45 BP 101 / 73; Pulse 82; Resp 16; Pulse Ox 100% on R/A; Pain 4/10; lp1 18:36 Body Mass Index 25.34 (71.21 kg, 167.64 cm) tw2 MDM: 19:20 Patient medically screened. kdr 21:54 Differential diagnosis: acute myocardial infarction, chest wall pain, thoracic aortic gs disection, unstable angina. Data reviewed: vital signs, nurses notes, old medical records, lab test result(s), EKG, radiologic studies. Counseling: I had a detailed discussion with the patient and/or guardian regarding: the historical points, exam findings, and any diagnostic results supporting the discharge/admit diagnosis, the need to transfer to another facility, [facility] does not immediately have the required specialist. Response to treatment: the patient's symptoms have markedly improved after treatment, the patient's symptoms have resolved after treatment, the patient's pain is gone, the patient's condition has returned to base line. 03/31 19:01 Order name: Basic Metabolic Panel; Complete Time: 21:06 ss 03/31 19:01 Order name: CBC with Diff; Complete Time: 21:03/31 19:01 Order name: LFT's; Complete Time: 21:03/31 19:01 Order name: Magnesium; Complete Time: 21:03/31 19:01 Order name: NT PRO-BNP; Complete Time: 21:03/31 19:01 Order name: PT-INR; Complete Time: 21: 03/31 19:01 Order name: Troponin (emerg Dept Use Only); Complete Time: 21: ss 03/31 19:01 Order name: XRAY Chest (1 view); Complete Time: 21: ss 03/31 19:25 Order name: CT Aorta for Dissection; Complete Time: 21: 03/31 18:47 Order name: EKG - Nurse/Tech; Complete Time: 18:47 tw2 03/31 18:47 Order name: EKG; Complete Time: 18:50 tw2 03/31 19:01 Order name: Cardiac monitoring; Complete Time: 19:10 03/31 19:01 Order name: EKG - Nurse/Tech; Complete Time: 19:10 03/31 19:01 Order name: IV Saline Lock; Complete Time: 19:10 03/31 19:01 Order name: Labs collected and sent; Complete Time: 19:10 03/31 19:01 Order name: O2 Per Protocol; Complete Time: 19:10 03/31 19:01 Order name: O2 Sat Monitoring; Complete Time: 19:10 03/31 19:25 Order name: EKG; Complete Time: 19:32 gs 03/31 19:25 Order name: EKG - Nurse/Tech; Complete Time: 19:34 gs EC:39 Rate is 90 beats/min. Rhythm is regular, Sinus Rhythm with Unifocal PVCs, bigeminy. NM gs interval is normal. T waves are Inverted in lead aVL. T waves are Flattened in lead V1. Clinical impression: NSR w/ Non-specific ST/T Changes. Interpreted by me. 21:54 Rate is 76 beats/min. Rhythm is regular. NM interval is normal. QRS interval is normal. gs T waves are Inverted in lead aVL. Clinical impression: NSR w/ Non-specific ST/T Changes. Interpreted by me. Administered Medications: 19:33 Drug: fentaNYL (PF) 50 mcg Route: IVP; Site: right antecubital; lp1 20:03 Follow up: Response: Pain is unchanged, physician notified lp1 20:03 Drug: Dilaudid 1 mg Route: IVP; Site: right antecubital; lp1 20:31 Follow up: Response: Pain is decreased lp1 20:31 Drug: NS 0.9% 1000 ml Route: IV; Rate: 1 bolus; Site: right antecubital; lp1 21:45 Follow up: IV Status: Completed infusion; IV Intake: 800ml lp1 21:45 Drug: Aspirin Chewable Tablet 324 mg Route: PO; lp1 22:42 Follow up: Response: No adverse reaction lp1 21:45 Drug: Lovenox 70 mg Route: Sub-Q; Site: right lower abdomen; lp1 22:42 Follow up: Response: No adverse reaction lp1 21:45 Drug: Dilaudid 1 mg Route: IVP; Site: right antecubital; lp1 22:01 Follow up: Response: Pain is decreased lp1 Disposition: 21:54 Critical Care:. gs Disposition: 03/31/19 21:56 Transfer ordered to [facility]. Diagnosis is Unstable angina. - Reason for transfer: Higher level of care. - Accepting physician is balant. - Condition is Stable. - Problem is new. - Symptoms have improved. Critical care time excluding procedures: 21:54 Critical care time: Bedside Care: 10 minutes, Consultation: 10 minutes, Family gs Intervention: 10 minutes. Total time: 30 minutes Signatures: Dispatcher [employer] EDJorge Jack MD MD kdr Smirch, Shelby, RN RN ss Pena, Laura, RN RN lp1 Ruth Murcia RN RN 2 Magdy Macdonald MD MD Corrections: (The following items were deleted from the chart) 23:11 21:56 03/31/2019 21:56 Transfer ordered to [facility]. lp1 Diagnosis is Unstable angina. Reason for transfer: Higher level of care. Accepting physician is balant. Condition is Stable. Problem is new. Symptoms have improved. gs
--- NOTE | 2019-03-31 21:57 | ER ---
Nurse's Notes [facility] Name: Betsey Martel Age: 53 yrs Sex: Female : 1965 Arrival Date: 03/31/2019 Time: 18:37 Bed 2 Private MD: Diagnosis: Unstable angina Presentation: 03/31 18:38 Presenting complaint: Patient states: i ate supper and then i got into kitchen and i tw2 took my blood pressure medicine and then i started having chest pain, i thought it was indigestion but it wasn't going away, and i am nauseated happened about 5 am, i didn't know whether to call 911 but i just drove myself here, i have had aortic dissection. Presenting complaint: "i just lost my son 3 months ago, i dont think this is anxiety". Transition of care: patient was not received from another setting of care. Onset of symptoms was March 31, 2019. Risk Assessment: Do you want to hurt yourself or someone else? Patient reports no desire to harm self or others. Initial Sepsis Screen: Does the patient meet any 2 criteria? No. Patient's initial sepsis screen is negative. Does the patient have a suspected source of infection? No. Patient's initial sepsis screen is negative. Care prior to arrival: None. 18:38 Method Of Arrival: Ambulatory tw2 18:38 Acuity: KAREN 2 tw2 Triage Assessment: 18:42 General: Appears uncomfortable, Behavior is anxious. Pain: Complains of pain in chest. tw2 Cardiovascular: Reports chest pain, "pressure". 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:57 LMP N/A - Post-menopause lp1 Historical: - Allergies: 18:42 Cymbalta; tw2 18:42 Seroquel; tw2 18:42 Wellbutrin; tw2 18:42 Demerol; tw2 - Home Meds: 18:42 levothyroxine 25 mcg tab once daily [Active]; pantoprazole 40 mg Oral TbEC 1 tab once tw2 daily [Active]; hydromorphone 4 mg Oral tab four times a day [Active]; Phenergan Oral 25 mg as needed [Active]; Klonopin 2 mg Oral tab as needed [Active]; furosemide 20 mg Oral tab 1 tab once daily [Active]; tizanidine 2 mg Oral cap 1 caps twice a day [Active]; trazodone 75 mg nightly Oral tab nightly [Active]; ropinirole 2 mg Oral Tb24 nightly [Active]; biotin Oral daily [Active]; citalopram 20 mg tab 1 tab once daily [Active]; amlodipine 5 mg tab 1 tab once daily [Active]; - PMHx: 18:42 THORACIC AORTIC ANEURYSM; Rheumatoid Arthritis; kidney disease; Hypothyroidism; tw2 Hypertension; osteoarthritis; ETOH; GERD; Hip Pain; degenerative bone disease; Depression; BRAIN TUMOR 1997; Chronic pain; Anemia; CHF; - Immunization history:: Adult Immunizations. - Social history:: Smoking status: Patient uses tobacco products, smokes one pack cigarettes per day. - Ebola Screening: : Patient denies travel to an Ebola-affected area in the 21 days before illness onset. Screenin:52 Abuse screen: Denies threats or abuse. Nutritional screening: No deficits noted. tw2 Tuberculosis screening: No symptoms or risk factors identified. Fall Risk None identified. Assessment: 18:51 Pain: Pain does not radiate. Pain began 2 hours ago. tw2 19:34 General: Appears uncomfortable, Behavior is anxious, crying. Pain: Complains of pain in lp1 chest Pain radiates to back Pain currently is 8 out of 10 on a pain scale. Quality of pain is described as sharp. Neuro: Level of Consciousness is awake, alert, obeys commands, Oriented to person, place, time, situation. Cardiovascular: Patient's skin is warm and dry. Rhythm is sinus rhythm. Respiratory: Airway is patent Respiratory effort is even, unlabored. GI: No signs and/or symptoms were reported involving the gastrointestinal system. : No signs and/or symptoms were reported regarding the genitourinary system. EENT: No signs and/or symptoms were reported regarding the EENT system. Derm: Skin is pink, warm \\T\\ dry. Musculoskeletal: No deficits noted. 20:00 Reassessment: Patient in continued pain to chest radiating to back; Provider notified. lp1 General: Behavior is anxious, restless. 20:55 Reassessment: Patient complaint of chest pain worsening again; Assisted patient to 1 bathroom at this time; Provider aware of request for pain medication. General: Behavior is anxious. 21:30 Reassessment: Provider at bedside to discuss results and pending transfer. lp1 22:09 Reassessment: Report given to SOURAV Chamberlain for patient transfer to [address] [facility] Room 551. Vital Signs: 18:36 BP 165 / 72; Pulse 136; Resp 20; Temp 97.6(TE); Pulse Ox 99% on R/A; Weight 71.21 kg tw2 (R); Height 5 ft. 6 in. (167.64 cm); Pain 10/10; 18:52 Pulse 86; tw2 19:33 BP 153 / 87; Pulse 86; Resp 14; Pulse Ox 100% on R/A; Pain 8/10; lp1 19:45 BP 149 / 88; Pulse 78; Resp 12; Pulse Ox 99% on R/A; lp1 20:00 BP 134 / 81; Pulse 79; Resp 12; Pulse Ox 100% on R/A; Pain 9/10; lp1 20:32 BP 127 / 69; Pulse 80; Resp 12; Pulse Ox 100% on R/A; Pain 7/10; lp1 21:40 BP 140 / 89; Pulse 88; Resp 16; Temp 97.5(O); Pulse Ox 100% on R/A; Pain 8/10; lp1 22:45 BP 101 / 73; Pulse 82; Resp 16; Pulse Ox 100% on R/A; Pain 4/10; lp1 18:36 Body Mass Index 25.34 (71.21 kg, 167.64 cm) tw2 ED Course: 18:37 Patient arrived in ED. mr 18:40 Triage completed. tw2 18:42 Arm band placed on. EKG completed in triage. Results shown to MD. tw2 18:46 Placed in gown. Bed in low position. Call light in reach. personnel monitor on. Pulse ox tw2 on. NIBP on. 18:46 Patient maintains SpO2 saturation greater than 95% on room air. tw2 18:55 Initial lab(s) drawn, by me, sent to lab. Inserted saline lock: 20 gauge in right sv antecubital area, using aseptic technique. Blood collected. Flushed right antecubital with 5 ml normal saline. 18:59 Magdy Macdonald MD is Attending Physician. 19:08 Report given to Betsey BENJAMIN and Franki BENJAMIN. sv 19:13 Betsey Gilmore, RN is Primary Nurse. lp1 19:19 Attending Physician role handed off by Magdy Macdonald MD kdr 19:19 Jorge Aguila MD is Attending Physician. kdr 19:20 Attending Physician role handed off by Jorge Aguila MD 19:20 Magdy Macdonald MD is Attending Physician. gs 19:22 XRAY Chest (1 view) In Process Unspecified. EDMS 19:35 No provider procedures requiring assistance completed. lp1 20:[address] via wheelchair. lp1 20:22 CT Aorta for Dissection In Process Unspecified. EDMS 23:09 Patient transferred, IV remains in place. lp1 Administered Medications: 19:33 Drug: fentaNYL (PF) 50 mcg Route: IVP; Site: right antecubital; lp1 20:03 Follow up: Response: Pain is unchanged, physician notified lp1 20:03 Drug: Dilaudid 1 mg Route: IVP; Site: right antecubital; lp1 20:31 Follow up: Response: Pain is decreased lp1 20:31 Drug: NS 0.9% 1000 ml Route: IV; Rate: 1 bolus; Site: right antecubital; lp1 21:45 Follow up: IV Status: Completed infusion; IV Intake: 800ml lp1 21:45 Drug: Aspirin Chewable Tablet 324 mg Route: PO; lp1 22:42 Follow up: Response: No adverse reaction lp1 21:45 Drug: Lovenox 70 mg Route: Sub-Q; Site: right lower abdomen; lp1 22:42 Follow up: Response: No adverse reaction lp1 21:45 Drug: Dilaudid 1 mg Route: IVP; Site: right antecubital; lp1 22:01 Follow up: Response: Pain is decreased lp1 Intake: 21:45 IV: 800ml; Total: 800ml. lp1 Outcome: 21:56 ER care complete, transfer ordered by . 22:01 Condition: stable lp1 22:01 Instructed on the need for transfer. 23:09 Transferred by ground EMS to [facility], Transfer form completed. X-rays sent lp1 w/ patient. 23:11 Patient left the ED. lp1 Signatures: Dispatcher [employer] EDMI Ana Espino RN RN Jorge Aguila MD MD kdr Rivera, Mary mr Pena, Laura RN RN lp1 Ruth Murcia RN RN tw2 Magdy Macdonald MD MD gs
[2019-03-31 23:47] VITALS: O2SAT 100
[2019-03-31 23:50] VITALS: TEMP 97.5
[2019-03-31 23:52] VITALS: BP 101/73
--- NOTE | 2019-04-01 07:26 | EKG ---
Test Date: 2019-03-31 Test Time: 18:38:11 Pulmonologist: BENNETT MEASUREMENT RESULTS: Intervals: Rate: 90 KS: 122 QRSD: 84 QT: 344 QTc: 420 [place]: P: 57 KS: 122 QRS: 48 T: 36 INTERPRETIVE STATEMENTS: Sinus rhythm with frequent premature ventricular complexes in a pattern of bigeminy Septal infarct, age undetermined Abnormal ECG Compared to ECG 01/11/2019 03:14:04 Ventricular premature complex(es) now present Myocardial infarct finding now present Left ventricular hypertrophy no longer present Electronically Signed On 04-01-19 07:25:35 CDT by Lavell Ruiz
--- NOTE | 2019-04-01 07:26 | EKG ---
Test Date: 2019-03-31 Test Time: 19:23:01 Paper Stripper: CHRISTINE MEASUREMENT RESULTS: Intervals: Rate: 76 [place]: 126 QRSD: 82 QT: 346 QTc: 389 [place]: P: 67 [place]: 126 QRS: 62 T: 72 INTERPRETIVE STATEMENTS: Normal sinus rhythm Septal infarct, age undetermined Abnormal ECG Compared to ECG 03/31/2019 18:38:11 Ventricular premature complex(es) no longer present Myocardial infarct finding still present Electronically Signed On 04-01-19 07:25:30 CDT by Lavell Ruiz
== END 2019-03-31 23:11 | disposition short-term general hospital (02) ==
LOC: ER 18:35
DX: I20.0 Unstable angina (principal); I12.9 Hypertensive chronic kidney disease with stage 1 through stage 4 chronic kidney disease, or unspecified chronic kidney disease; N18.9 Chronic kidney disease, unspecified; E03.9 Hypothyroidism, unspecified; I50.9 Heart failure, unspecified; D64.9 Anemia, unspecified; F32.9 Major depressive disorder, single episode, unspecified; F17.210 Nicotine dependence, cigarettes, uncomplicated; Z88.5 Allergy status to narcotic agent; Z88.8 Allergy status to other drugs, medicaments and biological substances
CPT/HCPCS: 96361; 93005 ×2; 85025; 80048; 36415; 83735; 85610; 80076; 84484; 83880; 71275; 74175; 71045; 96375; 96372; 96374; 99285; Q9967; J3010; J1650; J1170 ×2; J7030

== ENCOUNTER 2019-04-05 17:50 | Inpatient (IN) | payer OTHER ==
--- OUTSIDE RECORDS SUMMARY | 2019-04-05 17:53 | XMS REPORT ---
:1965 Author Organization [facility] Address [address] [place] [address] Dr. [address] [place] [id number] Care Team Providers Name Role Phone Unavailable Unavailable Unavailable Problems This patient has no known problems. Allergies, Adverse Reactions, Alerts This patient has no known allergies or adverse reactions. Medications This patient has no known medications.
--- OUTSIDE RECORDS SUMMARY | 2019-04-05 17:53 | XMS REPORT | Clinical Summary ---
:1965 Author Organization [facility] Address [address] [place] [address] Care Team Providers Name Role Phone Gibran [...] (Primary Dx); Failed orthopedic implant, initial encounter ([facility]) 07/01/2018 Telephone Orthopedic Tae Bishop MD 05/19/2018 Office Visit Orthopedic Tae Bishop, Acute pain of right shoulder (Primary Dx); Failed orthopedic implant, initial encounter after 04/04/2018 Social History Tobacco Use Types Packs/Day Years [...] Taken Blood Pressure 194/91 11/22/2018 2:15 PM REGULATORY COMPLIANCE MANAGER Pulse 60 11/22/2018 2:15 PM REGULATORY COMPLIANCE MANAGER Temperature - - Respiratory Rate 18 11/22/2018 1:12 PM REGULATORY COMPLIANCE MANAGER Oxygen Saturation - - Inhaled Oxygen Concentration - - Weight 72.6 kg (160 lb) 11/22/2018 1:12 PM REGULATORY COMPLIANCE MANAGER Height 167.6 cm (5' 6") 11/22/2018 1:12 PM REGULATORY COMPLIANCE MANAGER Body Mass Index 25.82 11/22/2018 1:12 PM REGULATORY COMPLIANCE MANAGER Plan of Treatment Date Type Specialty Care Team Description 06/09/2019 Hospital Encounter Orthopedic Surgery Tae Salazar MD [address] [place] [address] [phone] 06/09/2019 Surgery Orthopedic Surgery Tae Salazar, RIGHT SHOULDER EXCISION HETERTOPIC [address] [facility] [address] [place], [place] [id number] Health Maintenance Due Date Last Done Comments BREAST CANCER SCREENING 2014 COLON CANCER SCREENING 2014 SHINGLES VACCINES (#1) 2014 INFLUENZA VACCINE 06/09/2019 07/25/2018 Procedures Procedure Name Priority Date/Time Associated Comments Diagnosis FL RAD NEEDLE Routine 11/22/2018 2:30 PM Acute pain of right Results for this ASPIRATION REGULATORY COMPLIANCE MANAGER shoulder procedure are in the results section. CELL COUNT AND Routine 11/22/2018 2:05 PM Results for this DIFFERENTIAL, BODY REGULATORY COMPLIANCE MANAGER procedure are in FLUID the results section. GRAM STAIN Routine 11/22/2018 2:05 PM Results for this REGULATORY COMPLIANCE MANAGER procedure are in the results section. AEROBIC CULTURE Routine 11/22/2018 2:05 PM Results for this REGULATORY COMPLIANCE MANAGER procedure are in the results section. NM BONE SCAN 3 PHASE Routine 11/22/2018 12:36 PM Acute pain of right Results for this REGULATORY COMPLIANCE MANAGER shoulder procedure are in the results section. CT UPPER EXTREMITY Routine 11/22/2018 10:48 AM Acute pain of right Results for this WO RIGHT REGULATORY COMPLIANCE MANAGER shoulder procedure are in the results section. after 04/04/2018 Results FL Rad Needle Aspiration (11/22/2018 2:30 PM REGULATORY COMPLIANCE MANAGER) Specimen Narrative Performed At EXAMINATION:FL RAD NEEDLE [...] for cultures and lab work as ordered. [facility]-[id number] Procedure Note Hm Interface, Radiology Results Incoming - 11/22/2018 2:43 PM REGULATORY COMPLIANCE MANAGER EXAMINATION: FL RAD NEEDLE ASPIRATION CLINICAL [...] for cultures and lab work as ordered. [facility]-[id number] Performing Organization Address City/[facility] Phone Number [address] [address] Aerobic culture (11/22/2018 2:05 PM REGULATORY COMPLIANCE MANAGER) Pathologist [facility] Aerobic culture No growth after 3 days. [facility] isolate Comment: HOSPITAL Specimen Information Specimen Source: Aspir[facility] Performing Organization Address City/[facility] Phone Number [facility] DEPARTMENT OF PATHOLOGY AND [address] [place] [phone] [address] Gram stain (11/22/2018 2:05 PM REGULATORY COMPLIANCE MANAGER) Pathologist [facility] Gram stain isolate No WBC's or organisms seen. [facility] Comment: HOSPITAL Specimen Information Specimen Source: Aspirate [facility] Performing Organization Address [facility] Phone Number [facility] DEPARTMENT OF PATHOLOGY AND [address] [place] [phone] [place] [phone] Cell count and differential, body fluid (11/22/2018 2:05 PM REGULATORY COMPLIANCE MANAGER) Misc fluid type SynovialComment: [facility] Color, fluid Red [facility] Appearance, fluid Hazy [facility] RBC, fluid SEE /CMM [facility] COMMENTComment: [facility] 3+ (10,000 - 20,000 RBC/CMM) Nucleated cells, 239 /CMM [facility] Fluid mononuclear See Diff [facility] Neutrophils, fluid 57 % [facility] Lymphocytes, fluid 33 % [facility] Metamyelocytes, 10 % [facility] Specimen Fluid Narrative Performed At [facility] DEPARTMENT OF PATHOLOGY AND GENOMIC MEDICINE Performing Organization Address City/[facility] Phone Number [facility] DEPARTMENT OF PATHOLOGY AND [address] [place] [phone] GENOMIC MEDICINE [facility] [address] [place] [address] NM Bone Scan 3 Phase (11/22/2018 12:36 PM REGULATORY COMPLIANCE MANAGER) Specimen Narrative Performed At PROCEDURE:NM BONE SCAN [...] IMPRESSION: 1. Uncomplicated appearing right shoulder prosthesis. [facility]-[id number] Procedure Note Interface, Radiology Results Incoming - 11/22/2018 1:37 PM REGULATORY COMPLIANCE MANAGER PROCEDURE: NM BONE SCAN 3 PHASE [...] IMPRESSION: 1. Uncomplicated appearing right shoulder prosthesis. [facility]-[id number] Performing Organization Address City/State/Zipcode Phone Number [facility] [address] [place] [address] CT Upper Extremity Wo Right (11/22/2018 10:48 AM REGULATORY COMPLIANCE MANAGER) Specimen Narrative Performed At EXAMINATION:CT UPPER EXTREMITY [...] Radiology Results Incoming - 11/22/2018 11:49 AM REGULATORY COMPLIANCE MANAGER EXAMINATION: CT UPPER EXTREMITY WO RIGHT [...] Additional findings as above. Performing Organization Address City/State/[facility] Phone Number [facility] [address] [place] [address] after 04/04/2018 Insurance Payer Benefit Plan / Subscriber ID Effective Dates Phone Address Type Group [facility] MEDICARE [facility] DUAL COMPLETE xxxxxxxxx 2017-Present [facility] MEDICA[facility] MEDICAID xxxxxxxxx 2018-Present Medicaid Advance Directives Patient has advance care planning documents on file. For more information, please contact:Hugo Casillas[address] [place] [address]
--- NOTE | 2019-04-05 19:02 | RAD REPORT ---
EXAM DESCRIPTION: CT - Head Brain Wo Cont - 04/05/2019 6:55 pm CLINICAL HISTORY: CONFUSED Headache, drowsiness COMPARISON: Head Brain Wo Cont dated 12/29/2017; Head Brain Wo Cont dated 12/09/2017 TECHNIQUE: All CT scans are performed using dose optimization technique as appropriate and may inclu de automated exposure control or mA/KV adjustment according to patient size. FINDINGS: No intracranial hemorrhage, hydrocephalus or extra-axial fluid collection.Gliosis is seen in the left cerebellar hemisphere, unchanged. The paranasal sinuses and mastoids are clear. Left posterior fossa craniectomy noted, unchanged. IMPRESSION: No acute intracranial abnormality.
[2019-04-05 19:11] LABS: Absolute Lymphocytes (CBC) 0.7 K/uL (0.7-4.9); Absolute Monocytes 0.4 K/uL (0.1-1.3); Absolute Neutrophil 9.3 K/uL (1.8-8.0); Basophils % 0.3 % (0-1.3); Eosinophils % 0.3 % (0-4.4); Hematocrit 33.5 % (36.0-45.0); MPV 7.6 fL (7.6-11.3); Monocytes % 3.4 % (3.3-12.3); RBC Red Blood Cell Count 3.36 M/uL (3.86-4.86)
[2019-04-05] MEDS ORDERED: CEFTRIAXONE/SWI 1gm 1 GM/10 ML SYR ONE (19:21)
[2019-04-05] MEDS ORDERED: NA CHLORIDE 0.9% 1,000 ML ONE (19:21)
[2019-04-05 19:35] LABS: Barbiturates NEGATIVE (NEGATIVE); Benzodiazepines NEGATIVE (NEGATIVE); Cocaine NEGATIVE (NEGATIVE); METHAMPHETAM NEGATIVE (NEGATIVE); Methadone NEGATIVE (NEGATIVE); Opiates POSITIVE (NEGATIVE); Phencyclidine NEGATIVE (NEGATIVE); THC Cannibis NEGATIVE (NEGATIVE)
[2019-04-05 19:36] LABS: ALT/SGPT 20 U/L (12-78); AST/SGOT 20 U/L (15-37); Albumin 2.8 g/dL (3.4-5.0); Alkaline Phosphatase 95 U/L (45-117); BUN Blood Urea Nitrogen 78 mg/dL (7-18); Bicarbonate 19 mmol/L (21-32); Bilirubin Direct < 0.1 mg/dL (0-0.2); Bilirubin Total 0.3 mg/dL (0.2-1.0); Glucose Level 81 mg/dL (74-106); Lipase 300 U/L (73-393); Potassium 5.5 mmol/L (3.5-5.1); Protein, Total 6.1 g/dL (6.4-8.2); Sodium Level 132 mmol/L (136-145)
[2019-04-05 20:00] LABS: Urine Blood NEGATIVE (NEG); Urine Glucose NEGATIVE (NEG); Urine Protein TRACE (NEG); Urine pH 5.5 (5.0-7.0)
--- NOTE | 2019-04-05 20:07 | ER ---
Nurse's Notes [facility] Name: Betsey Martel Age: 53 yrs Sex: Female : 1965 Arrival Date: 04/05/2019 Time: 18:15 Bed 13 Private MD: Diagnosis: Hyperkalemia Presentation: 04/05 18:25 Presenting complaint: EMS states: EMS states one of the patient's children called 911 ae4 because patient was confused. Patient states she has had confusion in the past when her "kidneys are not working". Transition of care: patient was not received from another setting of care. Onset of symptoms was April 05, 2019 at 17:00. Risk Assessment: Do you want to hurt yourself or someone else? Patient reports no desire to harm self or others. Initial Sepsis Screen: Does the patient meet any 2 criteria? Altered Mental Status. 18:25 Method Of Arrival: EMS: [facility] ae4 18:25 Acuity: KAREN 2 ae4 19:50 Initial Sepsis Screen: Does the patient have a suspected source of infection? Yes: ae4 Dysuria/Frequency/Urgency/UTI. Care prior to arrival: None. Triage Assessment: 19:50 General: Behavior is cooperative, agitated, anxious, restless. General: Appears ae4 uncomfortable, unkempt. Pain: Denies pain. Neuro: Level of Consciousness is awake, alert, obeys commands, Oriented to person. Historical: - Allergies: 19:44 Cymbalta; ae4 19:44 Demerol; ae4 19:44 Seroquel; ae4 19:44 Wellbutrin; ae4 - Home Meds: 19:44 amlodipine 5 mg tab 1 tab once daily [Active]; biotin Oral daily [Active]; citalopram ae4 20 mg tab 1 tab once daily [Active]; furosemide 20 mg Oral tab 1 tab once daily [Active]; hydromorphone 4 mg Oral tab four times a day [Active]; Klonopin 2 mg Oral tab as needed [Active]; levothyroxine 25 mcg tab once daily [Active]; pantoprazole 40 mg Oral TbEC 1 tab once daily [Active]; Phenergan Oral 25 mg as needed [Active]; ropinirole 2 mg Oral Tb24 nightly [Active]; tizanidine 2 mg Oral cap 1 caps twice a day [Active]; trazodone 75 mg nightly Oral tab nightly [Active]; - PMHx: 19:44 Anemia; BRAIN TUMOR 1996; CHF; Chronic pain; degenerative bone disease; Depression; ae4 ETHO INTOXICATION; ETOH; GERD; Hip Pain; Hypertension; Hypothyroidism; kidney disease; osteoarthritis; Rheumatoid Arthritis; THORACIC AORTIC ANEURYSM; - Immunization history:: Adult Immunizations up to date. - Social history:: Patient/guardian denies using alcohol, street drugs, The patient lives with family, Smoking status: Patient uses tobacco products, denies chronic smoking, but will smoke occasionally. - Family history:: not pertinent. - Ebola Screening: : Patient negative for fever greater than or equal to 101.5 degrees Fahrenheit, and additional compatible Ebola Virus Disease symptoms Patient denies exposure to infectious person Patient denies travel to an Ebola-affected area in the 21 days before illness onset. Screenin:39 Abuse screen: Denies threats or abuse. Nutritional screening: No deficits noted. ae4 Tuberculosis screening: No symptoms or risk factors identified. Fall Risk No fall in past 12 months (0 pts). No secondary diagnosis (0 pts). IV access (20 points). Ambulatory Aid- None/Bed Rest/Nurse Assist (0 pts). Gait- Normal/Bed Rest/Wheelchair (0 pts) Mental Status- Overestimates/Forgets Limitations (15 pts.). Assessment: 18:35 General: Appears. ae4 19:00 General: Appears in no apparent distress. uncomfortable, Behavior is calm, cooperative, jb4 appropriate for age. Pain: Denies pain. Neuro: Level of Consciousness is awake, alert, obeys commands, Oriented to person, place. Cardiovascular: Patient's skin is warm and dry. Respiratory: Airway is patent Respiratory effort is even, unlabored, Respiratory pattern is regular, symmetrical. GI: No signs and/or symptoms were reported involving the gastrointestinal system. : No signs and/or symptoms were reported regarding the genitourinary system. EENT: No signs and/or symptoms were reported regarding the EENT system. Derm: Skin is intact, Skin is pink, warm \\T\\ dry. Musculoskeletal: Circulation, motion, and sensation intact. 20:00 Reassessment: Patient appears in no apparent distress at this time. No changes from jb4 previously documented assessment. Patient and/or family updated on plan of care and expected duration. Pain level reassessed. respirations even and unlabored. family at the bedside. 20:39 Reassessment: pipe organ technician at bedside for 2nd set of blood cultures. ae4 21:00 Reassessment: Patient appears in no apparent distress at this time. No changes from jb4 previously documented assessment. Patient and/or family updated on plan of care and expected duration. Pain level reassessed. 21:30 Reassessment: Attempted to call report. instructed to wait for call back. Will re-call jb in 15 minutes. 22:15 Reassessment: Patient appears in no apparent distress at this time. No changes from jb4 previously documented assessment. Patient and/or family updated on plan of care and expected duration. Pain level reassessed. Vital Signs: 18:28 BP 117 / 59; Pulse 89; Resp 15; Pulse Ox 99% on R/A; Weight 72.57 kg (R); Pain 0/10; ae4 19:37 BP 122 / 61; Pulse 75; Resp 16; Temp 98.3(O); Pulse Ox 99% on R/A; ae4 21:00 BP 101 / 86; Pulse 84; Resp 16; Temp 98.2(O); Pulse Ox 96% on R/A; jb4 21:33 Temp 98.6; ea ED Course: 18:15 Patient arrived in ED. ae4 18:16 Christian Amaya MD is Attending Physician. maria esther 18:23 Elly Jacinto MD is Attending Physician. ma2 18:25 Christopher Ch, SOURAV is Primary Nurse. ae4 18:28 Triage completed. ae4 18:[address] sj 18:53 Inserted saline lock: 20 gauge in right antecubital area, using aseptic technique. rv Blood collected. 18:53 First set of blood cultures drawn by me. rv 18:54 CT completed. Patient tolerated procedure well. Patient moved back from CT. nj 18:55 CT Head Brain wo Cont In Process Unspecified. EDMS 19:02 UDS Sent. ae4 19:40 Arm band placed on right wrist. EKG completed in triage. Results shown to MD. ae4 19:48 No provider procedures requiring assistance completed. Missed attempt(s): 24 gauge in ae4 right wrist. 19:49 Placed in gown. Bed in low position. Call light in reach. Side rails up X 1. Adult w/ ae4 patient. monitoring and evaluation advisor on. Pulse ox on. NIBP on. Warm blanket given. 20:05 Nii Nash MD is Hospitalizing Provider. ma2 22:15 Patient admitted, IV remains in place. jb4 Administered Medications: 19:11 Drug: NS 0.9% 1000 ml Route: IV; Rate: 1 bolus; Site: right antecubital; ae4 21:00 Follow up: Response: No adverse reaction; IV Status: Completed infusion; IV Intake: jb4 1000ml 19:20 Drug: Rocephin 1 grams Route: IV; Rate: calculated rate; Site: right antecubital; ae4 20:24 Drug: Albuterol 1.25 mg Route: Inhalation; ae4 20:27 Drug: D50W 50 ml Route: IVP; Site: right antecubital; ae4 20:31 Drug: Insulin Regular Human 6 units {Co-Signature: christo (Milagro Bella RN).} Route: IVP; ae4 Site: right antecubital; 20:33 Drug: Lasix 20 mg Route: IVP; Site: right antecubital; ae4 20:34 Drug: Kayexalate 30 grams Route: PO; ae4 Intake: 21:00 IV: 1000ml; Total: 1000ml. jb4 Outcome: 20:06 Decision to Hospitalize by Provider. ma2 22:15 Admitted to Tele accompanied by tech, via stretcher, room 401, with chart. jb4 22:15 Condition: stable jb4 22:15 Discharge instructions given to patient, Instructed on the need for admit, Demonstrated understanding of instructions. 22:34 Patient left the ED. jb4 Signatures: Dispatcher [employer] EDMS Christian Amaya MD MD cha Jones, Susan sj Bryson, James RN SOURAV castro4 Maxwell Simental Elena, RN RN ea Alzahri, Mohammad, MD MD sd2 Ean Ruiz RN RN rv Elliott, Andrea, RN RN ae4 Milagro Bella RN, ea Corrections: (The following items were deleted from the chart) 21:31 21:00 BP 101 / 86; Pulse 84bpm; Resp 16bpm; Pulse Ox 96% RA; jb4 jb4
--- NOTE | 2019-04-05 20:07 | EDPHYS ---
Physician Documentation [facility] Name: Betsey Martel Age: 53 yrs Sex: Female : 1965 Arrival Date: 04/05/2019 Time: 18:15 Bed 13 Private MD: ED Physician Elly Jacinto HPI: 04/05 18:59 This 53 yrs old Female presents to ER via EMS with complaints of Altered ma2 Mental Status. 18:59 The patient presents with decreased mental status, trouble concentrating. Onset: The ma2 symptoms/episode began/occurred gradually, 3 day(s) ago. Associated signs and symptoms: Pertinent negatives: agitation, ataxia, confusion, diaphoresis, diarrhea, dizziness. Current symptoms: In the emergency department the patient's symptoms are unchanged from the initial presentation. Patient's baseline: Neuro: alert and fully oriented, Motor: no deficits. The patient has experienced similar episodes in the past. feels drowsy and sleepy for the last 2 days yet able to answer questions and has no other symptoms . Historical: - Allergies: 19:44 Cymbalta; ae4 19:44 Demerol; ae4 19:44 Seroquel; ae4 19:44 Wellbutrin; ae4 - Home Meds: 19:44 amlodipine 5 mg tab 1 tab once daily [Active]; biotin Oral daily [Active]; citalopram ae4 20 mg tab 1 tab once daily [Active]; furosemide 20 mg Oral tab 1 tab once daily [Active]; hydromorphone 4 mg Oral tab four times a day [Active]; Klonopin 2 mg Oral tab as needed [Active]; levothyroxine 25 mcg tab once daily [Active]; pantoprazole 40 mg Oral TbEC 1 tab once daily [Active]; Phenergan Oral 25 mg as needed [Active]; ropinirole 2 mg Oral Tb24 nightly [Active]; tizanidine 2 mg Oral cap 1 caps twice a day [Active]; trazodone 75 mg nightly Oral tab nightly [Active]; - PMHx: 19:44 Anemia; BRAIN TUMOR 1996; CHF; Chronic pain; degenerative bone disease; Depression; ae4 ETHO INTOXICATION; ETOH; GERD; Hip Pain; Hypertension; Hypothyroidism; kidney disease; osteoarthritis; Rheumatoid Arthritis; THORACIC AORTIC ANEURYSM; - Immunization history:: Adult Immunizations up to date. - Social history:: Patient/guardian denies using alcohol, street drugs, The patient lives with family, Smoking status: Patient uses tobacco products, denies chronic smoking, but will smoke occasionally. - Family history:: not pertinent. - Ebola Screening: : Patient negative for fever greater than or equal to 101.5 degrees Fahrenheit, and additional compatible Ebola Virus Disease symptoms Patient denies exposure to infectious person Patient denies travel to an Ebola-affected area in the 21 days before illness onset. ROS: 18:59 Constitutional: Negative for fever, chills, and weight loss, Cardiovascular: Negative ma2 for chest pain, palpitations, and edema, Respiratory: Negative for shortness of breath, cough, wheezing, and pleuritic chest pain, Skin: Negative for injury, rash, and discoloration, Neuro: Negative for headache, weakness, numbness, tingling, and seizure. 18:59 Neuro: Positive for altered mental status, Negative for gait disturbance, hearing loss, seizure activity, speech changes, weakness. 18:59 All other systems are negative. ma2 Exam: 18:59 Constitutional: This is a well developed, well nourished patient who is awake, alert, ma2 and in no acute distress. Chest/axilla: Normal chest wall appearance and motion. Nontender with no deformity. No lesions are appreciated. Cardiovascular: Regular rate and rhythm with a normal S1 and S2. No gallops, murmurs, or rubs. Normal PMI, no JVD. No pulse deficits. Respiratory: Lungs have equal breath sounds bilaterally, clear to auscultation and percussion. No rales, rhonchi or wheezes noted. No increased work of breathing, no retractions or nasal flaring. Abdomen/GI: Soft, non-tender, with normal bowel sounds. No distension or tympany. No guarding or rebound. No evidence of tenderness throughout. Back: No spinal tenderness. No costovertebral tenderness. Full range of motion. Female : Normal external genitalia. Skin: Warm, dry with normal turgor. Normal color with no rashes, no lesions, and no evidence of cellulitis. 18:59 Neuro: Orientation: is normal, Mentation: responsive to voice able to follow commands, slow to respond, Memory: is normal, appropriate for stated age, Cranial nerves: grossly normal, Cerebellar function: is grossly normal, Motor: is normal, Sensation: is normal. Vital Signs: 18:28 BP 117 / 59; Pulse 89; Resp 15; Pulse Ox 99% on R/A; Weight 72.57 kg (R); Pain 0/10; ae4 19:37 BP 122 / 61; Pulse 75; Resp 16; Temp 98.3(O); Pulse Ox 99% on R/A; ae4 21:00 BP 101 / 86; Pulse 84; Resp 16; Temp 98.2(O); Pulse Ox 96% on R/A; jb4 21:33 Temp 98.6; ea MDM: 18:23 Patient medically screened. ar2 18:59 Differential Diagnosis: electrolyte abnormality, alcohol intoxication, hypoglycemia, ma2 UTI, volume depletion. 20:05 Data reviewed: vital signs, nurses notes. Counseling: I had a detailed discussion with ma2 the patient and/or guardian regarding: the historical points, exam findings, and any diagnostic results supporting the discharge/admit diagnosis, the presence of at least one elevated blood pressure reading (>120/80) during this emergency department visit, the need for further work-up and treatment in the hospital. Response to treatment: the patient's symptoms have markedly improved after treatment. ED course: discussed with dr. paz. 04/05 18:36 Order name: Basic Metabolic Panel; Complete Time: 19:58 [facility] 04/05 18:36 Order name: CBC with Diff; Complete Time: 19:29 [facility] 04/05 18:36 Order name: Creatinine for Radiology; Complete Time: 19:34 [facility] 04/05 18:36 Order name: Hepatic Function; Complete Time: 19:58 [facility] 04/05 18:36 Order name: Lipase; Complete Time: 19:58 [facility] 04/05 18:41 Order name: Blood Culture Adult (2) [facility] 04/05 18:41 Order name: CT Head Brain wo Cont; Complete Time: 19:29 [facility] 04/05 18:41 Order name: Lactate; Complete Time: 19:29 [facility] 04/05 18:42 Order name: UDS; Complete Time: 19:45 [facility] 04/05 18:42 Order name: Alcohol Level [facility] 04/05 18:42 Order name: Salicylate [facility] 04/05 18:42 Order name: Acetaminophen [facility] 04/05 19:02 Order name: Urine Dipstick--Ancillary (enter results) 04/05 19:02 Order name: Urine --Ancillary (enter results) 04/05 18:36 Order name: IV Saline Lock; Complete Time: 19:03 ar2 04/05 18:36 Order name: Labs collected and sent; Complete Time: 19:03 [facility] 04/05 18:41 Order name: Urine Dipstick-Ancillary (obtain specimen); Complete Time: 19:02 [facility] Administered Medications: 19:11 Drug: NS 0.9% 1000 ml Route: IV; Rate: 1 bolus; Site: right antecubital; ae4 21:00 Follow up: Response: No adverse reaction; IV Status: Completed infusion; IV Intake: jb4 1000ml 19:20 Drug: Rocephin 1 grams Route: IV; Rate: calculated rate; Site: right antecubital; ae4 20:24 Drug: Albuterol 1.25 mg Route: Inhalation; ae4 20:27 Drug: D50W 50 ml Route: IVP; Site: right antecubital; ae4 20:31 Drug: Insulin Regular Human 6 units {Co-Signature: ea (Milagro Bella RN).} Route: IVP; ae4 Site: right antecubital; 20:33 Drug: Lasix 20 mg Route: IVP; Site: right antecubital; ae4 20:34 Drug: Kayexalate 30 grams Route: PO; ae4 Disposition: 04/05/19 20:06 Hospitalization ordered by Nii Paz for Observation. Preliminary diagnosis is Hyperkalemia. - Bed requested for Telemetry/MedSurg (observation). - Status is Observation. jb4 - Condition is Stable. - Problem is new. - Symptoms are unchanged. UTI on Admission? No Signatures: Dispatcher [employer] Shelly Elizabeth RN RN dw Bryson, James, RN RN jb4 Elly Jacinto MD MD ma2 Christopher Ch RN RN ae4 Milagro Bella RN, ea Corrections: (The following items were deleted from the chart) 21:10 20:06 Hospitalization Ordered by Nii Paz MD for Observation. Preliminary idris diagnosis is Hyperkalemia. Bed requested for Telemetry/MedSurg (observation). Status is Observation. Condition is Stable. Problem is new. Symptoms are unchanged. UTI on Admission? No. ma2 22:34 21:10 04/05/2019 20:06 Hospitalization Ordered by Nii Paz MD for Observation. jb4 Preliminary diagnosis is Hyperkalemia. Bed requested for Telemetry/MedSurg (observation). Status is Observation. Condition is Stable. Problem is new. Symptoms are unchanged. UTI on Admission? No. dw
[2019-04-05] MEDS ORDERED: FUROSEMIDE 20 MG/ 2ML VIAL ONE (20:30)
[2019-04-05] MEDS ORDERED: INSULIN -REGULAR HUMAN 50 UNIT/0.5 ML ML ONE (20:31)
[2019-04-05] MEDS ORDERED: ALBUTEROL 2.5 MG/3 ML NEB SOL ONE (20:31)
[2019-04-05] MEDS ORDERED: SOD POLYSTYREN SUL 15 GM/60 ML UCUP ONE (20:32)
[2019-04-05] MEDS ORDERED: D50W 25 GM/50 ML SYRINGE IV ONE (20:32)
--- NOTE | 2019-04-05 21:20 | P.HP ---
Certification for Inpatient Patient admitted to: Inpatient With expected LOS: >2 Midnights Practitioner: I am a practitioner with admitting privileges, knowledge of patient current condition, hospital course, and medical plan of care. Services: Services provided to patient in accordance with Admission requirements found in Title 42 Section 412.3 of the Code of Federal Regulations Patient History Date of Service: 04/05/19 Reason for admission: acute on CKD, hyperkalemia History of Present Illness: Ms Martel is a 53 yeas old woman with history of HTN, Depression, chronic pain syndrome on opioid medication, CKD stage IV, tobacco abuse, alcohol abuse but not every day, came to ED because AMS. The patient become confused. Apparently her symptoms started yesterday. She is frustrated since she does not remember what has happened today. His son is at the bedside, and he does not know what was the problem either. At arrival the patient was afebrile, blood pressure 117/ 59 (she usually run high SBP > 170's) Lab work remarkable for worsening creatinine level 3.80 (03/31/19 it was 1.84), potassium was elevated 5.5. CT head without acute abnormalities. Toxicology report shows postive opioid, negative alcohol. WBC and lactate normal, UA no signs of infection. Allergies duloxetine HCl [From Cymbalta] Allergy (Intermediate, Verified 11/24/15 00:45) EDEMA quetiapine fumarate [From Seroquel] Allergy (Intermediate, Verified 11/24/15 00: 45) EDEMA bupropion HCl [From Wellbutrin] Allergy (Verified 11/24/15 00:45) Unknown Home Medications: Citalopram Hydrobromide [Celexa] 40 mg PO DAILY 02/11/12 Furosemide 20 mg PO DAILY 02/11/12 Ropinirole HCl 2 mg PO BEDTIME 02/11/12 Tizanidine HCl 2 mg PO BID 02/11/12 Hydromorphone [Dilaudid*] 4 mg PO TID PRN 02/26/15 Levothyroxine [Synthroid*] 0.025 mg PO DAILY 02/26/15 Pantoprazole [Protonix Tab*] 40 mg PO DAILY 02/26/15 Trazodone [Desyrel*] 75 mg PO DAILY 02/26/15 Amlodipine [Norvasc*] 5 mg PO DAILY 09/26/17 Albuterol Inhaler [Ventolin Inhaler*] 2 puff IH Q6H PRN #1 [id number] 02/09/19 predniSONE [Deltasone] 10 mg PO BID #10 tab 02/09/19 - Past Medical/Surgical History Diabetic: No -: HTN -: Hypothyroidism -: osteoarthritis -: depression -: Meningioma 1986 -: Thoracic aorta [id number] -: Toracic aorata dissection 2012 -: Cholecysectomy -: Hernia repair -: Ovarian cyst removal -: R knee sx -: R shoulder replacement -: X 2 - Family History Mother -: Heart disease, Hypertension, Stroke, Cancer Notes: A-fib, breast cancer, blood clots Father -: Hypertension, Other (see notes) Notes: Brain disorder - Social History Counseled patient to stop smoking for: less than 10 minutes Alcohol use: Yes CD- Drugs: No Caffeine use: Yes Place of Residence: Home Review of Systems 10-point ROS is otherwise unremarkable Physical Examination - Physical Exam General: Alert, Confused HEENT: Atraumatic, PERRLA, Mucous membr. moist/pink, EOMI, Sclerae nonicteric Neck: Supple, 2+ carotid pulse no bruit, No LAD, Without JVD or thyroid abnormality Respiratory: Clear to auscultation bilaterally, Normal air movement Cardiovascular: Regular rate/rhythm, Normal S1 S2 Gastrointestinal: Normal bowel sounds, No tenderness Musculoskeletal: No tenderness Integumentary: No rashes Neurological: Normal speech, Normal strength at 5/5 x4 extr, Normal tone, Normal affect Lymphatics: No axilla or inguinal lymphadenopathy - Studies Laboratory Data (last 24 hrs) 04/05/19 18:53: Creatinine 3.73 H 04/05/19 18:53: WBC 10.5, Hgb 11.3 L D, Hct 33.5 L D, Plt Count 187 D 04/05/19 18:53: Sodium 132 L, Potassium 5.5 H, BUN 78 H D, Creatinine 3.80 H D, Glucose 81, Total Bilirubin 0.3, AST 20, ALT 20, Alkaline Phosphatase 95, Lipase 300 Assessment and Plan - Problems (Diagnosis) (1) Acute encephalopathy Current Visit: Yes Status: Acute (2) Acute renal failure superimposed on stage 4 chronic kidney disease Current Visit: Yes Status: Acute Qualifiers: Acute renal failure type: unspecified Qualified Code(s): N17.9 - Acute kidney failure, unspecified; N18.4 - Chronic kidney disease, stage 4 (severe) (3) Volume depletion Current Visit: Yes Status: Acute (4) Hyperkalemia Onset Date: 09/28/17 Current Visit: No Status: Acute (5) Depression Onset Date: 09/28/17 Current Visit: No Status: Chronic Qualifiers: Depression Type: major depressive disorder Active/Remission status: remission status unspecified - Plan Will admit the patient due to AMS. There are no sings of ongoing infection. She presented with worsening renal function and hyperkalemia, possible secondary to volume depletion. Will continue fluid challenge, consult [facility] Director. Hyperkalmia already treated in ED. Will repeat potassium level tonight. - Advance Directives Does patient have a Living Will: No Does patient have a Durable POA for Healthcare: No - Code Status/Comfort Care Code Status Assessed: Yes Code Status: Full Code
[2019-04-05] MEDS ORDERED: ONDANSETRON 4 MG/2 ML VIAL IV PRN (22:56)
[2019-04-05] MEDS ORDERED: NA CHLORIDE 0.9% 1,000 ML IV SCH (22:56)
[2019-04-05 23:11] LABS: Thyroid Stimulating Hormone 0.183 uIU/mL (0.360-3.740)
[2019-04-05 23:57] VITALS: BMI 25.7
[2019-04-06 00:01] LABS: Urine Appearance CLEAR; Urine Bilirubin NEGATIVE (NEG); Urine Blood NEGATIVE (NEG); Urine Color YELLOW; Urine Glucose NEGATIVE (NEG); Urine Protein NEGATIVE (NEG); Urine Urobilinogen 0.2 mg/dL (0.2-1.0)
[2019-04-06 00:21] LABS: Urine Microscopic Reflex NO UMIC
[2019-04-06] MEDS: TRAMADOL HCL 50 MG TAB PO PRN ×3 (03:08→21:06)
[2019-04-06 06:24] LABS: Absolute Lymphocytes (CBC) 1.1 K/uL (0.7-4.9); Absolute Monocytes 0.6 K/uL (0.1-1.3); Absolute Neutrophil 4.7 K/uL (1.8-8.0); Basophils % 0.5 % (0-1.3); Hematocrit 30.5 % (36.0-45.0); Lymphocytes % 17.2 % (15.3-44.8); MPV 7.5 fL (7.6-11.3); Monocytes % 8.6 % (3.3-12.3); RBC Red Blood Cell Count 3.09 M/uL (3.86-4.86)
[2019-04-06 06:37] LABS: Potassium 4.7 mmol/L (3.5-5.1)
[2019-04-06] MEDS ORDERED: clonazePAM 1 MG TAB PO PRN (06:43)
[2019-04-06] MEDS: HYDROMORPHONE ORAL 4 MG TAB PO PRN ×2 (07:23→16:59)
[2019-04-06] MEDS: HOME MED 1 EA UNK (Vortioxetine Hydrobromide [Trintellix] 1 TAB) PO SCH ×2 (09:00→21:00)
[2019-04-06] MEDS ORDERED: COLCHICINE 0.6 MG TAB PO SCH (09:00)
[2019-04-06] MEDS: NA CHLORIDE 0.9% 1,000 ML IV SCH ×2 (09:04→16:59)
[2019-04-06] MEDS: HEPARIN 5000 UNIT/ML 1 ML VIAL SQ SCH ×2 (09:06→21:02)
[2019-04-06] MEDS: METOPROLOL XL 25 MG TAB PO SCH (09:07)
[2019-04-06] MEDS: LEVOTHYROXINE SOD 0.075 MG TAB PO SCH (09:07)
[2019-04-06] MEDS: NICOTINE 14 MG/PAT TD SCH (09:09)
--- NOTE | 2019-04-06 09:21 | P.PN ---
Subjective Date of Service: 04/06/19 Primary Care Provider: Dr. Owens; Nephrology-Dr. Guerra; Pain management-Dr. Suarez Chief Complaint: acute on CKD, hyperkalemia Subjective: Other (Patient doing better this morning. She is back to normal mentation. Patient reports recent heart catheterization at [facility] last week. She reports that this test was unremarkable. Patient has chronic pain and sees pain management. Patient to have right shoulder replacement soon by orthopedics. Patient very anxious. Patient with underlying depression and anxiety. Patient reports poor oral intake recently) Physical Examination - Vital Signs Temperature: 97.7 F Blood Pressure: 119/58 Pulse: 73 Respirations: 16 Pulse Ox (%): 94 - Physical Exam General: Alert, In no apparent distress, Cooperative, Other (Very anxious) HEENT: Atraumatic Neck: Supple Respiratory: Clear to auscultation bilaterally, Normal air movement Cardiovascular: Normal pulses, Regular rate/rhythm Gastrointestinal: Normal bowel sounds, Soft and benign, Non-distended, No masses , No rebound, No guarding Musculoskeletal: No erythema, No tenderness, No warmth Integumentary: No tenderness/swelling, No erythema, No warmth, No cyanosis Neurological: Normal speech, Normal strength at 5/5 x4 extr, Normal tone, Abnormal affect (Very anxious) - Studies Laboratory Data (last 24 hrs) 04/05/19 18:53: Creatinine 3.73 H 04/05/19 18:53: WBC 10.5, Hgb 11.3 L D, Hct 33.5 L D, Plt Count 187 D 04/05/19 18:53: Sodium 132 L, Potassium 5.5 H, BUN 78 H D, Creatinine 3.80 H D, Glucose 81, Total Bilirubin 0.3, AST 20, ALT 20, Alkaline Phosphatase 95, Lipase 300 Microbiology Data (last 24 hrs): 04/05/19 20:43 Blood - Blood Anaerobic Blood Culture - Final Medications List Reviewed: Yes Assessment & Plan Discharge Plan: Home Plan to discharge in: 24 Hours Physician Review Additional Text: Impression: Acute metabolic encephalopathy with acute on chronic renal failure stage 4 with recent heart catheterization Hypertension Depression with anxiety Chronic pain with right shoulder arthritis requiring chronic narcotic Anemia of chronic disease Hypothyroidism Hyperlipidemia Restless leg syndrome Likely underlying GERD Plan: Acute metabolic encephalopathy with acute on chronic renal failure stage 4 with recent heart catheterization: Patient improved and back to her normal mentation. Will continue with IV fluids. Encourage oral intake. Nephrology consulted to further evaluate. Patient had recent heart catheterization likely causing acute on chronic renal failure. This appears improved. Encourage oral intake. Will try to obtain records from [facility] due to recent catheterization. Patient reports no stent was required. Will adjust medication per renal function. Recommended no nonsteroidal anti- inflammatories. Likely discharge within the next 24 hr. Will discuss with nephrology. Hypertension: Will review and restart home medication. Will hold AMANDA- inhibitor. Will monitor and adjust medication appropriately. Depression with anxiety: Continue with home medication. Chronic pain with right shoulder arthritis requiring chronic narcotic: Restart home medication including Dilaudid that she takes for chronic pain. Patient seen by pain management. Patient in process of having right shoulder replacement soon. Anemia of chronic disease: Will monitor closely. Hypothyroidism: Continue with medication. Hyperlipidemia: Continue with home medication Restless leg syndrome: Continue home medication GERD: Will provide medication. Encourage oral intake. Time Spent Managing Pts Care (In Minutes): 55
[2019-04-06] MEDS ORDERED: ATORVASTATIN 20 MG TAB PO SCH (21:00)
[2019-04-06] MEDS ORDERED: TRAZODONE 50 MG TABLET PO SCH (21:00)
[2019-04-06] MEDS ORDERED: ROPINIROLE HCL 1 MG TAB PO SCH (21:00)
[2019-04-06 22:37] VITALS: O2SAT 97
[2019-04-07] MEDS: HYDROMORPHONE ORAL 4 MG TAB PO PRN ×2 (00:26→09:25)
[2019-04-07] MEDS: NA CHLORIDE 0.9% 1,000 ML IV SCH (02:28)
[2019-04-07 04:45] LABS: Absolute Lymphocytes (CBC) 1.5 K/uL (0.7-4.9); Absolute Monocytes 0.5 K/uL (0.1-1.3); Absolute Neutrophil 3.1 K/uL (1.8-8.0); Eosinophils % 1.2 % (0-4.4); Hematocrit 28.3 % (36.0-45.0); Lymphocytes % 28.7 % (15.3-44.8); MPV 8.2 fL (7.6-11.3); Monocytes % 9.6 % (3.3-12.3); RBC Red Blood Cell Count 2.91 M/uL (3.86-4.86)
[2019-04-07 05:00] LABS: Magnesium 1.7 mg/dL (1.8-2.4); Potassium 5.2 mmol/L (3.5-5.1)
[2019-04-07] MEDS ORDERED: FAMOTIDINE 20 MG TAB PO SCH (09:00)
[2019-04-07] MEDS: LEVOTHYROXINE SOD 0.075 MG TAB PO SCH (09:00)
[2019-04-07] MEDS: HOME MED 1 EA UNK (Vortioxetine Hydrobromide [Trintellix] 1 TAB) PO SCH (09:00)
[2019-04-07] MEDS ORDERED: MAGNESIUM SULFATE 1 gm IVPB 1 GM/100 ML BAG IV ONE (09:00)
[2019-04-07] MEDS: METOPROLOL XL 25 MG TAB PO SCH (09:26)
[2019-04-07] MEDS: NICOTINE 14 MG/PAT TD SCH (09:26)
[2019-04-07] MEDS: HEPARIN 5000 UNIT/ML 1 ML VIAL SQ SCH (09:28)
[2019-04-07] MEDS ORDERED: LEVOTHYROXINE SOD 0.05 MG TABLET PO SCH (09:40)
--- NOTE | 2019-04-07 09:47 | P.DS ---
Admission Date: 04/05/19 Discharge Date: 04/07/19 Primary Care Provider: Dr. Owens; Nephrology-Dr. Guerra; Pain management-Dr. Suarez Disposition: ROUTINE DISCHARGE Discharge Condition: GOOD Reason for Admission: acute on CKD, hyperkalemia Consultations: Nephrology-Dr. Guerra Cardiology-Dr. Ruiz Procedures: CT head: COMPARISON: Head Brain Wo Cont dated 12/29/2017; Head Brain Wo Cont dated 2017 TECHNIQUE: All CT scans are performed using dose optimization technique as appropriate and may include automated exposure control or mA/KV adjustment according to patient size. FINDINGS: No intracranial hemorrhage, hydrocephalus or extra-axial fluid collection.Gliosis is seen in the left cerebellar hemisphere, unchanged. The paranasal sinuses and mastoids are clear. Left posterior fossa craniectomy noted, unchanged. IMPRESSION: No acute intracranial abnormality. Medical Problem List: Acute metabolic encephalopathy with acute on chronic renal failure stage 4 with recent heart catheterization Hypertension Depression with anxiety Chronic pain with right shoulder arthritis requiring chronic narcotic Anemia of chronic disease Hypothyroidism Hyperlipidemia Restless leg syndrome Likely underlying GERD Brief History of Present Illness: 53-year-old female presented to the emergency room with confusion. Patient had recent heart catheterization at another facility. Patient with underlying hypertension, chronic pain, depression with anxiety and chronic renal disease. Patient found to be dehydrated with acute on chronic renal failure. Patient was admitted for treatment. Hospital Course: Patient presented with confusion likely related to acute metabolic encephalopathy with acute on chronic renal failure stage 4 after recent heart catheterization. Nephrology was consulted. Patient received IV fluids. Medications adjusted during her stay. Lisinopril was held due to acute renal failure and hyperkalemia. Renal function improved. Renal function back to baseline with creatinine 1.04 and GFR of 55. Patient is back to her baseline mentation. Patient does take chronic pain and anxiety medication. At discharge patient will continue with good oral intake. Recommend to follow up with nephrology in 1-2 weeks to follow up this hospitalization. Recommend to recheck lab-BMP in 1 week to follow her progress. Recommend to limit chronic pain and anxiety medication over time. Patient plans to follow up with pain management later today. Patient with underlying hypertension. Medications adjusted due to acute on chronic renal failure. Lisinopril has been discontinued. Patient will continue with metoprolol. This has been adjusted. At discharge she will continue with metoprolol XL 50 mg daily. Recommend maintain blood pressures was 150/80. Further adjustment can be done by her PCP. She had had recent heart catheterization. She reports no stents were required. Patient may follow up with cardiology as directed. Patient with depression and anxiety. Patient may continue with her medications including trazodone 100 mg at bedtime, Trental calyx 5 mg 1 pill twice daily. Patient also takes Klonopin 2 mg twice daily. It is recommended that she decrease and eventually wean off Klonopin over time. She is to hold medication if with increase sedation. This can be further managed by her PCP. Patient with chronic pain related to right shoulder arthritis. Patient on chronic narcotics. Patient sees pain management. Patient currently takes Dilaudid 4 mg every 4 hr. It is recommended that she follow up with her pain management physician to hopefully wean her off pain medication. She is to have surgery to her right shoulder in June. She is to hold medication if with increase sedation or without pain. Patient with hypothyroidism. At discharge she will continue with Levoxyl 50 mcg daily. Patient with hyperlipidemia. Patient will continue with Lipitor 20 mg daily. Patient with restless leg syndrome. Patient will continue with Requip 2 mg at bedtime. Patient with GERD. Patient may continue with Pepcid 20 mg once daily. Continue with dietary changes. Patient may benefit with GI evaluation as an outpatient to further address. Patient with anemia of chronic disease. This is likely related to her chronic renal disease with her PCP to further monitor. Recommend to recheck CBC in 2-4 weeks to monitor her progress. Vital Signs/Physical Exam: Temp Pulse Resp BP Pulse Ox 97.7 F 68 16 175/78 H 98 04/07/19 08:00 04/07/19 09:26 04/07/19 08:00 04/07/19 09:26 04/07/19 08:00 General: Alert, In no apparent distress, Oriented x3, Cooperative HEENT: Atraumatic Neck: Supple Respiratory: Clear to auscultation bilaterally, Normal air movement Cardiovascular: Normal pulses, Regular rate/rhythm Gastrointestinal: Normal bowel sounds, Soft and benign, Non-distended, No tenderness, No masses, No rebound, No guarding Musculoskeletal: No erythema, No tenderness, No warmth Integumentary: No tenderness/swelling, No erythema, No warmth, No cyanosis Neurological: Normal speech, Normal strength at 5/5 x4 extr, Normal tone, Normal affect Laboratory Data at Discharge: WBC 5.2 K/uL (4.3-10.9) D 04/07/19 04:02 Hgb 9.8 g/dL (12.0-15.0) L 04/07/19 04:02 Hct 28.3 % (36.0-45.0) L 04/07/19 04:02 Plt Count 163 K/uL (152-406) 04/07/19 04:02 Sodium 144 mmol/L (136-145) 04/07/19 04:02 Potassium 5.2 mmol/L (3.5-5.1) H 04/07/19 04:02 BUN 31 mg/dL (7-18) H D 04/07/19 04:02 Creatinine 1.04 mg/dL (0.55-1.3) D 04/07/19 04:02 Glucose 82 mg/dL (74-106) 04/07/19 04:02 Magnesium 1.7 mg/dL (1.8-2.4) L 04/07/19 04:02 Total Bilirubin 0.3 mg/dL (0.2-1.0) 04/05/19 18:53 AST 20 U/L (15-37) 04/05/19 18:53 ALT 20 U/L (12-78) 04/05/19 18:53 Alkaline Phosphatase 95 U/L (45-117) 04/05/19 18:53 Lipase 300 U/L (73-393) 04/05/19 18:53 Home Medications: Ropinirole HCl 2 mg PO BEDTIME 02/11/12 Hydromorphone [Dilaudid*] 4 mg PO Q6H PRN 02/26/15 Levothyroxine [Synthroid*] 50 mcg PO DAILY 02/26/15 Trazodone [Desyrel*] 100 mg PO BEDTIME 02/26/15 Atorvastatin Calcium [Lipitor*] 1 tab PO BEDTIME 04/06/19 Vortioxetine Hydrobromide [Trintellix] 1 tab PO BID 04/06/19 clonazePAM [Klonopin*] 2 mg PO BID 04/06/19 Metoprolol Succinate [Toprol Xl*] 50 mg PO DAILY #60 tab 04/07/19 New Medications: Metoprolol Succinate [Toprol Xl*] 50 mg PO DAILY #60 tab Patient Discharge Instructions: 1. Recommend to follow up with her PCP in 1 week to follow up this hospitalization. 2. Patient presented with confusion likely related to acute metabolic encephalopathy with acute on chronic renal failure stage 4 after recent heart catheterization. Nephrology was consulted. Patient received IV fluids. Medications adjusted during her stay. Lisinopril was held due to acute renal failure and hyperkalemia. Renal function improved. Renal function back to baseline with creatinine 1.04 and GFR of 55. Patient is back to her baseline mentation. Patient does take chronic pain and anxiety medication. At discharge patient will continue with good oral intake. Recommend to follow up with nephrology in 1-2 weeks to follow up this hospitalization. Recommend to recheck lab-BMP in 1 week to follow her progress. Recommend to limit chronic pain and anxiety medication over time. Patient plans to follow up with pain management later today. 3. Patient with underlying hypertension. Medications adjusted due to acute on chronic renal failure. Lisinopril has been discontinued. Patient will continue with metoprolol. This has been adjusted. At discharge she will continue with metoprolol XL 50 mg daily. Recommend maintain blood pressures was 150/80. Further adjustment can be done by her PCP. She had had recent heart catheterization. She reports no stents were required. Patient may follow up with cardiology as directed. 4. Patient with depression and anxiety. Patient may continue with her medications including trazodone 100 mg at bedtime, Trental calyx 5 mg 1 pill twice daily. Patient also takes Klonopin 2 mg twice daily. It is recommended that she decrease and eventually wean off Klonopin over time. She is to hold medication if with increase sedation. This can be further managed by her PCP. 5. Patient with chronic pain related to right shoulder arthritis. Patient on chronic narcotics. Patient sees pain management. Patient currently takes Dilaudid 4 mg every 4 hr. It is recommended that she follow up with her pain management physician to hopefully wean her off pain medication. She is to have surgery to her right shoulder in June. She is to hold medication if with increase sedation or without pain. 6. Patient with hypothyroidism. At discharge she will continue with Levoxyl 50 mcg daily. 7. Patient with hyperlipidemia. Patient will continue with Lipitor 20 mg daily. 8. Patient with restless leg syndrome. Patient will continue with Requip 2 mg at bedtime. 9. Patient with GERD. Patient may continue with Pepcid 20 mg once daily. Continue with dietary changes. Patient may benefit with GI evaluation as an outpatient to further address. 10. Patient with anemia of chronic disease. This is likely related to her chronic renal disease with her PCP to further monitor. Recommend to recheck CBC in 2-4 weeks to monitor her progress. Diet: Renal Activity: Fall precautions Time spent managing pt's care (in minutes): 55
[2019-04-07 12:47] VITALS: BP 139/70; TEMP 98
--- NOTE | 2019-04-07 18:09 | P.CNS ---
Date of Consult: 04/06/19 Reason for Consult: EVER Requesting Physician: Chuy Purdy Primary Care Provider: Dr. Owens; Nephrology-Dr. Guerra; Pain management-Dr. Suarez Chief Complaint: acute on CKD, hyperkalemia History of Present Illness: Ms Martel is a 53 yeas old woman with history of HTN, Depression, chronic pain syndrome on opioid medication, CKD stage IV, tobacco abuse, alcohol abuse but not every day, came to ED because AMS. The patient become confused. Apparently her symptoms started yesterday. She is frustrated since she does not remember what has happened today. His son is at the bedside, and he does not know what was the problem either. At arrival the patient was afebrile, blood pressure 117/ 59 (she usually run high SBP > 170's) Lab work remarkable for worsening creatinine level 3.80 (03/31/19 it was 1.84), potassium was elevated 5.5. CT head without acute abnormalities. Toxicology report shows postive opioid, negative alcohol. WBC and lactate normal, UA no signs of infection. 18:59 This 53 yrs old Female presents to ER via EMS with complaints of Altered ma2 Mental Status. 18:59 The patient presents with decreased mental status, trouble concentrating. Onset: The ma2 symptoms/episode began/occurred gradually, 3 day(s) ago. Associated signs and symptoms: Pertinent negatives: agitation, ataxia, confusion, diaphoresis, diarrhea, dizziness. Current symptoms: In the emergency department the patient's symptoms are unchanged from the initial presentation. Patient's baseline: Neuro: alert and fully oriented, Motor: no deficits. The patient has experienced similar episodes in the past. feels drowsy and sleepy for the last 2 days yet able to answer questions and has no other symptoms . Allergies duloxetine HCl [From Cymbalta] Allergy (Intermediate, Verified 11/24/15 00:45) EDEMA quetiapine fumarate [From Seroquel] Allergy (Intermediate, Verified 11/24/15 00: 45) EDEMA bupropion HCl [From Wellbutrin] Allergy (Verified 04/05/19 23:32) swelling Home medications list reviewed: Yes Home Medications: Ropinirole HCl 2 mg PO BEDTIME 02/11/12 Hydromorphone [Dilaudid*] 4 mg PO Q6H PRN 02/26/15 Levothyroxine [Synthroid*] 50 mcg PO DAILY 02/26/15 Trazodone [Desyrel*] 100 mg PO BEDTIME 02/26/15 Atorvastatin Calcium [Lipitor*] 1 tab PO BEDTIME 04/06/19 Vortioxetine Hydrobromide [Trintellix] 1 tab PO BID 04/06/19 clonazePAM [Klonopin*] 2 mg PO BID 04/06/19 Metoprolol Succinate [Toprol Xl*] 50 mg PO DAILY #60 tab 04/07/19 - Past Medical/Surgical History Diabetic: No -: HTN -: Hypothyroidism -: osteoarthritis -: depression -: Meningioma 1986 -: Thoracic aorta [id number] -: Toracic aorata dissection 2012 -: Cholecysectomy -: Hernia repair -: Ovarian cyst removal -: R knee sx -: R shoulder replacement -: X 2 -: ovarian cyst removal -: cholecystectomy - Family History Mother Medical History: Heart disease, Hypertension, Stroke, Cancer Notes: A-fib, breast cancer, blood clots Father Medical History: Hypertension, Other (see notes) Notes: Brain disorder - Social History Smoking Status: Current some day smoker Alcohol use: Yes CD- Drugs: No Caffeine use: No Place of Residence: Home Review of Systems 10-point ROS is otherwise unremarkable General: Weakness, Malaise Respiratory: Cough Cardiovascular: Chest Pain Neurological: Weakness Physical Examination Temp Pulse Resp BP Pulse Ox 98.0 F 58 16 139/70 96 04/07/19 12:00 04/07/19 12:00 04/07/19 12:00 04/07/19 12:00 04/07/19 12:00 General: In no apparent distress, Oriented x3, Cooperative HEENT: Atraumatic Neck: Supple, No LAD Respiratory: Clear to auscultation bilaterally, Normal air movement Cardiovascular: No edema, Regular rate/rhythm, No rubs Gastrointestinal: Soft and benign, Non-distended, No guarding Musculoskeletal: No clubbing, No contractures Integumentary: No rashes, No cyanosis Neurological: Normal speech Blood work reviewed in the chart. Cr 3.8 Imagings Data: EXAM DESCRIPTION: CT - Head Brain Wo Cont - 04/05/2019 6:55 pm CLINICAL HISTORY: CONFUSED Headache, drowsiness COMPARISON: Head Brain Wo Cont dated 12/29/2017; Head Brain Wo Cont dated 2017 TECHNIQUE: All CT scans are performed using dose optimization technique as appropriate and may include automated exposure control or mA/KV adjustment according to patient size. FINDINGS: No intracranial hemorrhage, hydrocephalus or extra-axial fluid collection.Gliosis is seen in the left cerebellar hemisphere, unchanged. The paranasal sinuses and mastoids are clear. Left posterior fossa craniectomy noted, unchanged. IMPRESSION: No acute intracranial abnormality. Conclusions/Impression: A/ EVER likely due to hypovolemia. Acidosis. Hyponatremia. Hyperkalemia. Hypocalcemia. Hypomagnesemia. Moderate malnutrition. Anemia in chronic illness. Toxic metabolic encephalopathy. P/ Continue current POC and Medications. Agree with aggressive IVF. Will bicarb therapy as needed. Will give kayexalate as needed. Encourage nutrition. Replete potassium. Recommend Vitamin D. No NSAIDs. AM labs. Daily weight. Thank you kindly for the consultation. Case discussed with Dr. Purdy.
--- NOTE | 2019-04-07 18:23 | P.PN ---
Date of Service: 04/07/19 Vital Signs Temp Pulse Resp BP Pulse Ox 98.0 F 58 16 139/70 96 04/07/19 12:00 04/07/19 12:00 04/07/19 12:00 04/07/19 12:00 04/07/19 12:00 Microbiology Results 04/05/19 20:43 Blood - Blood Aerobic Blood Culture - Preliminary No growth in 24 hours. 04/05/19 20:43 Blood - Blood Anaerobic Blood Culture - Final 04/05/19 18:53 Blood - Blood Aerobic Blood Culture - Preliminary No growth in 24 hours. 04/05/19 18:53 Blood - Blood Anaerobic Blood Culture - Preliminary No growth in 24 hours. Assessment/ Plan: Nephrology. Feeling better but still with anxiety and mild CP. CPS improved without SOB. No acute events overnight. She is really concerned about why this keeps happening to her. Vitals, medications, blood work and imaging reviewed in the chart. General: In no apparent distress, Oriented x3, Cooperative HEENT: Atraumatic Neck: Supple, No LAD Respiratory: Clear to auscultation bilaterally, Normal air movement Cardiovascular: No edema, Regular rate/rhythm, No rubs Gastrointestinal: Soft and benign, Non-distended, No guarding Musculoskeletal: No clubbing, No contractures Integumentary: No rashes, No cyanosis Neurological: Normal speech Blood work reviewed in the chart. Cr 3.8 Imagings Data: EXAM DESCRIPTION: CT - Head Brain Wo Cont - 04/05/2019 6:55 pm CLINICAL HISTORY: CONFUSED Headache, drowsiness COMPARISON: Head Brain Wo Cont dated 12/29/2017; Head Brain Wo Cont dated 2017 TECHNIQUE: All CT scans are performed using dose optimization technique as appropriate and may include automated exposure control or mA/KV adjustment according to patient size. FINDINGS: No intracranial hemorrhage, hydrocephalus or extra-axial fluid collection.Gliosis is seen in the left cerebellar hemisphere, unchanged. The paranasal sinuses and mastoids are clear. Left posterior fossa craniectomy noted, unchanged. IMPRESSION: No acute intracranial abnormality. Conclusions/Impression: A/ EVRE likely due to hypovolemia. Acidosis. Hyponatremia. Hyperkalemia. Hypocalcemia. Hypomagnesemia. Moderate malnutrition. Anemia in chronic illness. Toxic metabolic encephalopathy. P/ Continue current POC and Medications. Continue IVF. Replete magnesium. Kayexalate as needed. Encourage nutrition. Recommend Vitamin D. No NSAIDs. AM labs. Daily weight. Case discussed with Dr. Purdy.
[2019-04-08] MEDS ORDERED: METOPROLOL XL 50 MG TAB PO SCH (09:00)
== END 2019-04-07 13:53 | disposition home or self-care (01) | DRG 682 ==
LOC: ER 17:50 → ERHOLD 21:20 → 4TH 22:03
PROVIDERS: ADMIT Internal Medicine; ATTEND Family Medicine
DX: N17.9 Acute kidney failure, unspecified (principal); G93.41 Metabolic encephalopathy; E87.1 Hypo-osmolality and hyponatremia; E44.0 Moderate protein-calorie malnutrition; E87.2 Acidosis; I12.9 Hypertensive chronic kidney disease with stage 1 through stage 4 chronic kidney disease, or unspecified chronic kidney disease; F17.210 Nicotine dependence, cigarettes, uncomplicated; N18.4 Chronic kidney disease, stage 4 (severe); F32.9 Major depressive disorder, single episode, unspecified; G89.4 Chronic pain syndrome; F10.10 Alcohol abuse, uncomplicated; E03.9 Hypothyroidism, unspecified; E86.9 Volume depletion, unspecified; E87.5 Hyperkalemia; F41.9 Anxiety disorder, unspecified; D63.1 Anemia in chronic kidney disease; M19.011 Primary osteoarthritis, right shoulder; G25.81 Restless legs syndrome; K21.9 Gastro-esophageal reflux disease without esophagitis; E83.51 Hypocalcemia; E83.42 Hypomagnesemia; Z68.25 Body mass index [BMI] 25.0-25.9, adult; Z79.891 Long term (current) use of opiate analgesic
CPT/HCPCS: 36415; 70450; 80048; 80076; 80307; 80320; 80329; 81003; 81025; 82140; 83605; 83690; 83735; 84132; 84439; 84443; 85025; 87040; 96361; 96374; 96375; 99285; J0696; J1644; J1940; J2405; J3475; J7030

== ENCOUNTER 2019-05-22 19:20 | Observation (INO) | payer OTHER ==
--- OUTSIDE RECORDS SUMMARY | 2019-05-22 19:23 | XMS REPORT ---
:1965 [facility] Address [address] [place] [address] Dr. Phillips [address] [place] [id number] Care Team Providers Name Role Phone Unavailable Unavailable Unavailable Problems This patient has no known problems. Allergies, Adverse Reactions, Alerts This patient has no known allergies or adverse reactions. Medications This patient has no known medications.
--- OUTSIDE RECORDS SUMMARY | 2019-05-22 19:23 | XMS REPORT | Clinical Summary ---
:1965 Author Organization [facility] Address [address] [place] [address] Care Team Providers Name Role Phone Gibran [...] Surgery Tae Salazar MD 10/18/2018 Telephone Orthopedic Surgery Tae Salazar MD 10/06/2018 Office Visit Orthopedic Surgery Tae Salazar, Acute pain of right shoulder (Primary Dx); Failed orthopedic implant, initial encounter ([facility]) 07/01/2018 Telephone Orthopedic Surgery Tae Salazar MD after 05/21/2018 Social History Tobacco Use Types Packs/Day Years [...] Taken Blood Pressure 194/91 11/22/2018 2:15 PM GAS REGULATOR REPAIRER HELPER Pulse 60 11/22/2018 2:15 PM GAS REGULATOR REPAIRER HELPER Temperature - - Respiratory Rate 18 11/22/2018 1:12 PM GAS REGULATOR REPAIRER HELPER Oxygen Saturation - - Inhaled Oxygen Concentration - - Weight 72.6 kg (160 lb) 11/22/2018 1:12 PM GAS REGULATOR REPAIRER HELPER Height 167.6 cm (5' 6") 11/22/2018 1:12 PM GAS REGULATOR REPAIRER HELPER Body Mass Index 25.82 11/22/2018 1:12 PM GAS REGULATOR REPAIRER HELPER Plan of Treatment Date Type Specialty Care Team Description 06/09/2019 Hospital Encounter Orthopedic Surgery Tae Salazar MD [address] [place] [address] [phone] 06/09/2019 Surgery Orthopedic Surgery Tae Salazar, RIGHT SHOULDER EXCISION HETERTOPIC [address] [facility] [address] [place] [address] [phone] Health Maintenance Due Date Last Done Comments BREAST CANCER SCREENING 2014 COLONOSCOPY SCREENING 2014 SHINGLES VACCINES (#1) 2014 INFLUENZA VACCINE 06/09/2019 07/25/2018 Procedures Procedure Name Priority Date/Time Associated Comments Diagnosis FL RAD NEEDLE Routine 11/22/2018 2:30 PM Acute pain of right Results for this ASPIRATION GAS REGULATOR REPAIRER HELPER shoulder procedure are in the results section. CELL COUNT AND Routine 11/22/2018 2:05 PM Results for this DIFFERENTIAL, BODY G[employer] REG[employer]ATOR REPAIRER HELPER procedure are in FLUID the results section. GRAM STAIN Routine 11/22/2018 2:05 PM Results for this G[employer] REGULATOR REPAIRER HELPER procedure are in the results section. AEROBIC CULTURE Routine 11/22/2018 2:05 PM Results for this GAS REGULATOR REPAIRER HELPER procedure are in the results section. NM BONE SCAN 3 PHASE Routine 11/22/2018 12:36 PM Acute pain of right Results for this GAS REGULATOR REPAIRER HELPER shoulder procedure are in the results section. CT UPPER EXTREMITY Routine 11/22/2018 10:48 AM Acute pain of right Results for this WO RIGHT G[employer] REGULATOR REPAIRER HELPER shoulder procedure are in the results section. after 05/21/2018 Results FL Rad Needle Aspiration (11/22/2018 2:30 PM GAS REGULATOR REPAIRER HELPER) Specimen Narrative Performed At EXAMINATION:FL RAD NEEDLE [...] for cultures and lab work as ordered. [facility]-[id number] Procedure Note Hm Interface, Radiology Results Incoming - 11/22/2018 2:43 PM GAS REGULATOR REPAIRER HELPER EXAMINATION: FL RAD NEEDLE ASPIRATION CLINICAL HISTORY: [...] for cultures and lab work as ordered. [facility]-[id number] Performing Organization Address City/[facility]/Zipcode Phone Number [facility] [address] [place] [phone] Aerobic culture (11/22/2018 2:05 PM GAS REGULATOR REPAIRER HELPER) Aerobic culture No growth after 3 days. [facility] isolate Comment: HOSPITAL Specimen Information Specimen Source: Aspirate [facility] Spec[facility] Aspirate Performing Organization Address City/[facility] Phone Number [facility] DEPARTMENT OF PATHOLOGY AND [address] [place] [id number] [place] [phone] Gram stain (11/22/2018 2:05 PM GAS REGULATOR REPAIRER HELPER) Gram stain isolate No WBC's or organisms seen. [facility] Comment: HOSPITAL Specimen Information Specimen Source: Aspirate [facility]imen [facility] Specimen Aspirate Performing Organization Address [facility] Phone Number [facility] DEPARTMENT OF PATHOLOGY AND [address] [place] [phone] [address] Cell count and differential, body fluid (11/22/2018 2:05 PM GAS REGULATOR REPAIRER HELPER) Misc fluid type SynovialComment: [facility] Color, fluid Red [facility] Appearance, fluid Hazy [facility] RBC, fluid SEE /CMM [facility] COMMENTComment: [facility] 3+ (10,000 - 20,000 RBC/CMM) Nucleated cells, 239 /CMM [facility] Fluid mononuclear See Diff [facility] Neutrophils, fluid 57 % [facility] Lymphocytes, fluid 33 % [facility] Metamyelocytes, 10 % [facility] Specimen Fluid Narrative Performed At right shoulder [facility] DEPARTMENT OF PATHOLOGY AND GENOMIC MEDICINE Performing Organization Address City/[facility] Phone Number [facility] DEPARTMENT OF PATHOLOGY AND [address] [place] [phone] [address] NM Bone Scan 3 Phase (11/22/2018 12:36 PM GAS REGULATOR REPAIRER HELPER) Specimen Narrative Performed At PROCEDURE:NM BONE SCAN [...] IMPRESSION: 1. Uncomplicated appearing right shoulder prosthesis. [facility]-[id number] Procedure Note Interface, Radiology Results Incoming - 11/22/2018 1:37 PM GAS REGULATOR REPAIRER HELPER PROCEDURE: NM BONE SCAN 3 PHASE INDICATION: [...] IMPRESSION: 1. Uncomplicated appearing right shoulder prosthesis. [facility]-[id number] Performing Organization Address City/State/Zipcode Phone Number [facility] [address] [place] [address] CT Upper Extremity Wo Right (11/22/2018 10:48 AM GAS REGULATOR REPAIRER HELPER) Specimen Narrative Performed At EXAMINATION:CT UPPER EXTREMITY [...] Radiology Results Incoming - 11/22/2018 11:49 AM GAS REGULATOR REPAIRER HELPER EXAMINATION: CT UPPER EXTREMITY WO RIGHT INDICATION: [...] above. Performing Organization Address City/State/Zipcode Phone Number [facility] [address] [place] [address] after 05/21/2018 Insurance Payer Benefit Plan / Subscriber ID Effective Dates Phone Address Type Group [facility] MEDICARE [facility] DUAL COMPLETE xxxxxxxxx 2017-Present [facility] MEDICAID MEDICAID xxxxxxxxx 2018-Present Medicaid Advance Directives Patient has advance care planning documents on file. For more information, please contact:Hugo Casillas[address] [place] [address]
--- NOTE | 2019-05-22 20:17 | RAD REPORT ---
EXAM DESCRIPTION: [place] Single View05/22/2019 8:08 pm CLINICAL HISTORY: sob COMPARISON: March 2019 FINDINGS: The lungs appear clear of acute infiltrate. The heart is borderline enlarged An aortic stent is in place IMPRESSION: No acute abnormalities displayed
[2019-05-22 20:30] LABS: Absolute Lymphocytes (CBC) 1.3 K/uL (0.7-4.9); Basophils % 1.1 % (0-1.3); Hematocrit 38.7 % (36.0-45.0); Monocytes % 7.1 % (3.3-12.3); RBC Red Blood Cell Count 3.93 M/uL (3.86-4.86)
[2019-05-22] MEDS ORDERED: ALBUTEROL 2.5 MG/3 ML NEB SOL ONE (20:36)
[2019-05-22] MEDS ORDERED: IPRATROPIUM BROM 0.5MG/2.5ML ONE (20:36)
[2019-05-22] MEDS ORDERED: ACETAMINOPHEN 325 MG TABLET ONE (20:37)
[2019-05-22 20:43] LABS: Protime INR 0.89
[2019-05-22 20:45] LABS: ALT/SGPT 26 U/L (12-78); AST/SGOT 23 U/L (15-37); Albumin 3.6 g/dL (3.4-5.0); Alkaline Phosphatase 101 U/L (45-117); BUN Blood Urea Nitrogen 30 mg/dL (7-18); Bicarbonate 27 mmol/L (21-32); Bilirubin Direct 0.2 mg/dL (0-0.2); Bilirubin Total 0.5 mg/dL (0.2-1.0); Glucose Level 89 mg/dL (74-106); NT PRO-BNP 2343 pg/mL (<125); Potassium 4.3 mmol/L (3.5-5.1); Protein, Total 6.9 g/dL (6.4-8.2); Sodium Level 138 mmol/L (136-145); Troponin (Emerg Dept Use Only) < 0.02 ng/mL (0.0-0.045)
[2019-05-22] MEDS ORDERED: FUROSEMIDE 20 MG/ 2ML VIAL ONE (21:27)
[2019-05-22] MEDS ORDERED: FENTANYL CITR 100 MCG/2 ML ONE (21:27)
--- NOTE | 2019-05-22 21:42 | ER ---
Nurse's Notes [facility] Name: Betsey Martel Age: 53 yrs Sex: Female : 1965 Arrival Date: 05/22/2019 Time: 19:22 Bed 24 Private MD: Gibran Owens E Diagnosis: Dyspnea, unspecified;Orthopnea Presentation: 05/22 19:25 Presenting complaint: Patient states: Increasing SOB over the course of the last three la1 days. I have dilated cardiomyopahty and I have a "life vest on" I am also having chest pain today. Transition of care: patient was not received from another setting of care. Onset of symptoms was May 22, 2019. Risk Assessment: Do you want to hurt yourself or someone else? Patient reports no desire to harm self or others. Initial Sepsis Screen: Does the patient meet any 2 criteria? No. Patient's initial sepsis screen is negative. Does the patient have a suspected source of infection? No. Patient's initial sepsis screen is negative. Care prior to arrival: None. 19:25 Method Of Arrival: Ambulatory la1 19:25 Acuity: KAREN 2 la1 Triage Assessment: 20:34 General: Appears in no apparent distress. uncomfortable. General: Behavior is calm, rv cooperative. Respiratory: Reports shortness of breath at rest the patient has mild shortness of breath. Respiratory: Airway is patent. Respiratory: Breath sounds with wheezes bilaterally. 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 - Social history:: Smoking status: Patient uses tobacco products, smokes one pack cigarettes per day. - Ebola Screening: : No symptoms or risks identified at this time. Screenin:33 Abuse screen: Denies threats or abuse. Denies injuries from another. Nutritional rv screening: No deficits noted. Tuberculosis screening: No symptoms or risk factors identified. Fall Risk None identified. Assessment: 20:32 General: Appears in no apparent distress. uncomfortable, Behavior is calm, cooperative. rv Pain: Complains of pain in back and chest Pain does not radiate. Pain currently is 4 out of 10 on a pain scale. at worst was 9 out of 10 on a pain scale. Quality of pain is described as heavy, Pain began suddenly, Is intermittent. Neuro: Level of Consciousness is awake, alert, obeys commands, Oriented to person, place, time, situation. Cardiovascular: Patient's skin is warm and dry. Rhythm is regular. Respiratory: Airway is patent Respiratory effort is even, Breath sounds with wheezes bilaterally. GI: No signs and/or symptoms were reported involving the gastrointestinal system. : No signs and/or symptoms were reported regarding the genitourinary system. EENT: No signs and/or symptoms were reported regarding the EENT system. Derm: Skin is intact. Musculoskeletal: No signs and/or symptoms reported regarding the musculoskeletal system. 20:36 Reassessment: patient started on breathing treatment. awaiting lab results. rv Vital Signs: 19:27 BP 173 / 77; Pulse 73; Resp 16; Temp 97.6; Pulse Ox 98% on R/A; Weight 72.57 kg; Height la1 5 ft. 6 in. (167.64 cm); 20:34 BP 118 / 47; Pulse 57; Resp 16; Pulse Ox 100% ; rv 23:00 BP 118 / 46; Pulse 63; Resp 16; Pulse Ox 94% on R/A; rv 23:30 BP 96 / 56; Pulse 60; Resp 16; Temp 98; Pulse Ox 96% on R/A; rv 19:27 Body Mass Index 25.82 (72.57 kg, 167.64 cm) la1 ED Course: 19:22 Patient arrived in ED. mr 19:23 Gibran Owens MD is Private Physician. mr 19:26 Triage completed. la1 19:27 Arm band placed on right wrist. la1 19:40 Christian Webber PA is PHCP. cp 19:40 Gagan Madrigal MD is Attending Physician. cp 20:08 XRAY Chest (1 view) In Process Unspecified. EDMS 20:16 Ean Ruiz, SOURAV is Primary Nurse. rv 20:18 Initial lab(s) drawn, by me, sent to lab. Inserted saline lock: 22 gauge in right lt1 antecubital area, using aseptic technique. 20:33 Patient has correct armband on for positive identification. Placed in gown. Bed in low rv position. Call light in reach. Side rails up X 1. verification manager on. Pulse ox on. NIBP on. 21:40 Nii Nash MD is Hospitalizing Provider. 05/23 00:01 No provider procedures requiring assistance completed. Patient admitted, IV remains in rv place. Administered Medications: 05/22 20:24 Drug: Tylenol 650 mg Route: PO; rv 05/23 00:02 Follow up: Response: No adverse reaction rv 05/22 20:24 Drug: Albuterol - atroVENT (3:1) (2.5 mg - 0.5 mg) 3 ml Route: Nebulizer; rv 05/23 00:02 Follow up: Response: Marked relief of symptoms; Wheezing diminished rv 05/22 21:18 Drug: fentaNYL (PF) 25 mcg Route: IVP; Site: right antecubital; rv 05/23 00:02 Follow up: Response: Marked relief of symptoms; Pain is decreased rv 05/22 21:18 Drug: Lasix 20 mg Route: IVP; Site: right antecubital; rv 05/23 00:03 Follow up: Response: PATIENT ABLE TO PEE 3X rv Outcome: 05/22 21:41 Decision to Hospitalize by Provider. 05/23 00:01 Admitted to Tele accompanied by tech, via wheelchair, room 409, with chart, Report rv called to SIM BENJAMIN Condition: good Instructed on the need for admit. 00:02 Patient left the ED. rv Signatures: Dispatcher [employer] Laurel Pinto Lee RN RN la1 Christian Webber PA PA cp Ean Ruiz RN Marci River lt1
--- NOTE | 2019-05-22 21:42 | EDPHYS ---
Physician Documentation [facility] Name: Betsey Martel Age: 53 yrs Sex: Female : 1965 Arrival Date: 05/22/2019 Time: 19:22 Bed 24 Private MD: Gibran Owens E ED Physician Gagan Madrigal HPI: 05/22 20:00 This 53 yrs old Female presents to ER via Ambulatory with complaints of cp Shortness Of Breath, Chest Pain. 20:00 The patient has shortness of breath at rest, that woke him/her from sleep. cp 20:00 Onset: The symptoms/episode began/occurred gradually, 3 day(s) ago, and became worse cp today. Duration: The symptoms are continuous, and are steadily getting worse. The patient's shortness of breath is aggravated by light activity, supine position, talking. Associated signs and symptoms: Pertinent positives: chest pain when taking in deep breath and lying flat, Pertinent negatives: productive cough, diaphoresis, dizziness, fever, hemoptysis. Severity of symptoms: in the emergency department the symptoms are unchanged despite home interventions. 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 - Social history:: Smoking status: Patient uses tobacco products, smokes one pack cigarettes per day. - Ebola Screening: : No symptoms or risks identified at this time. ROS: 20:05 Constitutional: Negative for body aches, chills, fever, poor PO intake. cp 20:05 Eyes: Negative for injury, pain, redness, and discharge. cp 20:05 ENT: Negative for drainage from ear(s), ear pain, sore throat, difficulty swallowing, difficulty handling secretions. 20:05 Cardiovascular: Positive for chest pain, Negative for edema, palpitations. 20:05 Respiratory: Positive for shortness of breath, at rest. Negative for cough, wheezing. 20:05 Abdomen/GI: Negative for abdominal pain, nausea, vomiting, and diarrhea, black/tarry stool, rectal bleeding. 20:05 Back: Negative for pain at rest, pain with movement. 20:05 : Negative for urinary symptoms. 20:05 Skin: Negative for rash. 20:05 Neuro: Negative for altered mental status, dizziness, headache, syncope, weakness. 20:05 All other systems are negative. Exam: 19:42 ECG was reviewed by the Attending Physician. cp 20:12 Constitutional: The patient appears in no acute distress, alert, awake, cp non-diaphoretic, non-toxic, well developed, well nourished, uncomfortable. 20:12 Head/Face: Normocephalic, atraumatic. Eyes: Pupils equal round and reactive to light, cp extra-ocular motions intact. Lids and lashes normal. Conjunctiva and sclera are non-icteric and not injected. Cornea within normal limits. Periorbital areas with no swelling, redness, or edema. ENT: Nares patent. No nasal discharge, no septal abnormalities noted. Tympanic membranes are normal and external auditory canals are clear. Oropharynx with no redness, swelling, or masses, exudates, or evidence of obstruction, uvula midline. Mucous membranes moist. 20:12 Neck: External neck: is normal, ROM/movement: is normal, is supple, without pain, no range of motions limitations, no nuchal rigidity. 20:12 Chest/axilla: Inspection: normal, Palpation: is normal, no crepitus, no tenderness. 20:12 Cardiovascular: Rate: normal, Rhythm: regular, Edema: very mild, JVD: is not appreciated. 20:12 Respiratory: the patient does not display signs of respiratory distress, Respirations: labored breathing, that is mild, intercostal retractions, are absent, tachypnea, is not appreciated, Breath sounds: stridor, is not appreciated, wheezing: is not appreciated. 20:12 Abdomen/GI: Inspection: abdomen appears normal, Palpation: abdomen is soft and non-tender, in all quadrants. 20:12 Back: ROM is normal. 20:12 Skin: no rash present. 20:12 Neuro: Orientation: to person, place \T\ time. Mentation: is normal, Motor: moves all fours, strength is normal, Sensation: no obvious gross deficits. Vital Signs: 19:27 BP 173 / 77; Pulse 73; Resp 16; Temp 97.6; Pulse Ox 98% on R/A; Weight 72.57 kg; Height la1 5 ft. 6 in. (167.64 cm); 20:34 BP 118 / 47; Pulse 57; Resp 16; Pulse Ox 100% ; rv 23:00 BP 118 / 46; Pulse 63; Resp 16; Pulse Ox 94% on R/A; rv 23:30 BP 96 / 56; Pulse 60; Resp 16; Temp 98; Pulse Ox 96% on R/A; rv 19:27 Body Mass Index 25.82 (72.57 kg, 167.64 cm) la1 MDM: 19:42 Patient medically screened. cp 20:00 Differential diagnosis: Anemia CHF exacerbation, Chronic Obstructive Pulmonary Disease cp Myocardial Infarction pneumonia, pulmonary edema, Pulmonary Embolism Unstable Angina. 21:30 Data reviewed: vital signs, nurses notes, lab test result(s), EKG, radiologic studies, cp plain films. 21:30 Test interpretation: by ED physician or midlevel provider: ECG, plain radiologic cp studies, chest xray negative for infiltrates. 21:39 Physician consultation: Nii Nash MD was called at 21:40, was contacted at 21:40, regarding admission, to the telemetry unit. patient's condition, and will see patient in ED. 05/22 19:55 Order name: Basic Metabolic Panel cp 05/22 19:55 Order name: CBC with Diff; Complete Time: 21:02 cp 05/22 19:55 Order name: LFT's cp 05/22 19:55 Order name: Magnesium; Complete Time: 21:02 cp 05/22 19:55 Order name: NT PRO-BNP; Complete Time: 21:02 cp 05/22 21:02 Interpretation: Normal except: NT PRO-BNP 2343. cp 05/22 19:55 Order name: PT-INR; Complete Time: 21:02 cp 05/22 19:55 Order name: Troponin (emerg Dept Use Only); Complete Time: 21:02 cp 05/22 19:55 Order name: XRAY Chest (1 view); Complete Time: 21:02 cp 05/22 19:56 Order name: Basic Metabolic Panel; Complete Time: 21:02 EDMS 05/22 21:18 Interpretation: Normal except: BUN 30; GFR 44; CA 8.4. cp 05/22 19:56 Order name: Liver (Hepatic) Function; Complete Time: 21:02 EDND 05/22 19:55 Order name: EKG; Complete Time: 19:56 cp 05/22 19:55 Order name: Cardiac monitoring; Complete Time: 20:25 cp 05/22 19:55 Order name: EKG - Nurse/Tech; Complete Time: 20:19 cp 05/22 19:55 Order name: IV Saline Lock; Complete Time: 20:19 cp 05/22 19:55 Order name: Labs collected and sent; Complete Time: 20:24 05/22 19:55 Order name: O2 Per Protocol; Complete Time: 20:19 cp 05/22 19:55 Order name: O2 Sat Monitoring; Complete Time: 20:19 cp EC:42 Rate is 60 beats/min. Rhythm is regular. MN interval is normal. QRS interval is normal. cp QT interval is normal. Interpreted by me. Reviewed by me. Administered Medications: 20:24 Drug: Tylenol 650 mg Route: PO; 05/23 00:02 Follow up: Response: No adverse reaction 05/22 20:24 Drug: Albuterol - atroVENT (3:1) (2.5 mg - 0.5 mg) 3 ml Route: Nebulizer; 05/23 00:02 Follow up: Response: Marked relief of symptoms; Wheezing diminished rv 05/22 21:18 Drug: fentaNYL (PF) 25 mcg Route: IVP; Site: right antecubital; rv 05/23 00:02 Follow up: Response: Marked relief of symptoms; Pain is decreased rv 05/22 21:18 Drug: Lasix 20 mg Route: IVP; Site: right antecubital; rv 05/23 00:03 Follow up: Response: PATIENT ABLE TO PEE 3X rv Disposition: 06:15 Co-signature as Attending Physician, Gagan Madrigal MD Available for consultation at ps1 all times. . Disposition: 05/22/19 21:41 Hospitalization ordered by Nii Nash for Observation. Preliminary diagnosis are Dyspnea, unspecified, Orthopnea. - Bed requested for Telemetry/MedSurg (observation). - Status is Observation. rv - Condition is Stable. - Problem is new. - Symptoms have improved. UTI on Admission? No Signatures: Dispatcher [employer] EDMS Natalie Uribe RN RN mw Juancarlos Pritchard RN RN la1 Christian Webber PA PA cp Gagan Madrigal MD MD [facility] Ean Ruiz RN RN rv Corrections: (The following items were deleted from the chart) 05/22 21:18 21:18 Normal except: BUN 30; GFR 44. cp 23:00 21:41 Hospitalization Ordered by Nii Nash MD for Observation. Preliminary diagnosis is Dyspnea, unspecified; Orthopnea. Bed requested for Telemetry/MedSurg (observation). Status is Observation. Condition is Stable. Problem is new. Symptoms have improved. UTI on Admission? No. cp 05/23 00:02 05/22 23:00 05/22/2019 21:41 Hospitalization Ordered by Nii Nash MD for rv Observation. Preliminary diagnosis is Dyspnea, unspecified; Orthopnea. Bed requested for Telemetry/MedSurg (observation). Status is Observation. Condition is Stable. Problem is new. Symptoms have improved. UTI on Admission? No. mw
--- NOTE | 2019-05-22 23:24 | P.HP ---
Certification for Inpatient Patient admitted to: Observation With expected LOS: <2 Midnights Practitioner: I am a practitioner with admitting privileges, knowledge of patient current condition, hospital course, and medical plan of care. Services: Services provided to patient in accordance with Admission requirements found in Title 42 Section 412.3 of the Code of Federal Regulations Patient History Date of Service: 05/22/19 Reason for admission: acute on chronic systolic CHF History of Present Illness: Ms Martel is a 53 years old woman with history of CAD, alcohol abuse, dilated cardiomyopthy with recent echo done in [facility] showing 20-25% EF, she is wearing a life verst, came to ED complaining of progressive SOB, since 3 days ago. Her symptoms are worst when she lay down. She was also complaining of chest pain, pressure like, lasting a couple of minutes, radiating to the back, having that several times today. Trop I negative, EKG SR at 60 bpm, no ST-T abnormalities. Pro-BNP elevated. CXR bilateral venous congestion. She is a smoker and lately has been coughing more than usual. Allergies duloxetine HCl [From Cymbalta] Allergy (Intermediate, Verified 11/24/15 00:45) EDEMA quetiapine fumarate [From Seroquel] Allergy (Intermediate, Verified 11/24/15 00: 45) EDEMA bupropion HCl [From Wellbutrin] Allergy (Verified 04/05/19 23:32) swelling Home Medications: Ropinirole HCl 2 mg PO BEDTIME 02/11/12 Hydromorphone [Dilaudid*] 4 mg PO Q6H PRN 02/26/15 Levothyroxine [Synthroid*] 50 mcg PO DAILY 02/26/15 Trazodone [Desyrel*] 100 mg PO BEDTIME 02/26/15 Atorvastatin Calcium [Lipitor*] 1 tab PO BEDTIME 04/06/19 Vortioxetine Hydrobromide [Trintellix] 1 tab PO BID 04/06/19 clonazePAM [Klonopin*] 2 mg PO BID 04/06/19 Metoprolol Succinate [Toprol Xl*] 50 mg PO DAILY #60 tab 04/07/19 - Past Medical/Surgical History Diabetic: No -: HTN -: Hypothyroidism -: osteoarthritis -: depression -: Meningioma 1986 -: Thoracic aorta [id number] -: Toracic aorata dissection 2012 -: Cholecysectomy -: Hernia repair -: Ovarian cyst removal -: Chronic systolic CHF -: R knee sx -: R shoulder replacement -: X 2 -: ovarian cyst removal -: cholecystectomy - Family History Mother -: Heart disease, Hypertension, Stroke, Cancer Notes: A-fib, breast cancer, blood clots Father -: Hypertension, Other (see notes) Notes: Brain disorder - Social History Smoking Status: Current every day smoker Counseled patient to stop smoking for: less than 10 minutes Smoking therapy provided: Yes Patient receptive to therapy: Yes Alcohol use: Yes CD- Drugs: No Caffeine use: No Place of Residence: Home Review of Systems 10-point ROS is otherwise unremarkable Physical Examination - Physical Exam General: Alert, In no apparent distress HEENT: Atraumatic, PERRLA, Mucous membr. moist/pink, EOMI, Sclerae nonicteric Neck: Supple, 2+ carotid pulse no bruit, No LAD, Without JVD or thyroid abnormality Respiratory: Normal air movement, Expiratory wheezes Cardiovascular: Regular rate/rhythm, Normal S1 S2 Gastrointestinal: Normal bowel sounds, No tenderness Musculoskeletal: No tenderness Integumentary: No rashes Neurological: Normal speech, Normal strength at 5/5 x4 extr, Normal tone, Normal affect Lymphatics: No axilla or inguinal lymphadenopathy - Studies Laboratory Data (last 24 hrs) 05/22/19 20:17: PT 10.6, INR 0.89 05/22/19 20:17: WBC 5.2, Hgb 12.9, Hct 38.7, Plt Count 189 05/22/19 20:17: Sodium 138, Potassium 4.3, BUN 30 H, Creatinine 1.26, Glucose 89 , Magnesium 2.0, Total Bilirubin 0.5, AST 23, ALT 26, Alkaline Phosphatase 101 Assessment and Plan - Problems (Diagnosis) (1) Acute on chronic systolic CHF (congestive heart failure) Current Visit: Yes Status: Acute (2) Tobacco abuse Current Visit: Yes Status: Acute (3) Chronic pain syndrome Onset Date: 09/28/17 Current Visit: No Status: Chronic (4) Hypertension Onset Date: 09/28/17 Current Visit: No Status: Chronic Qualifiers: Hypertension type: essential hypertension Qualified Code(s): I10 - Essential (primary) hypertension - Plan Will admit the patient due to acute on chronic systolic CHF. Will order to obtain records from [facility], [facility] for now, will resume her home medication if is appropriate once verified, consult cardiology team for treatment optimization. - Advance Directives Does patient have a Living Will: No Does patient have a Durable POA for Healthcare: No - Code Status/Comfort Care Code Status Assessed: Yes Code Status: Full Code
[2019-05-23] MEDS ORDERED: DIPHENHYDRAMINE 25 MG TAB/CAP PO ONE (00:30)
[2019-05-23] MEDS: HYDROMORPHONE ORAL 4 MG TAB PO PRN ×2 (00:45→06:22)
[2019-05-23] MEDS: TRAZODONE 50 MG TABLET PO PRN ×2 (00:45→23:09)
[2019-05-23] MEDS: ATORVASTATIN 20 MG TAB PO SCH ×2 (00:50→20:55)
[2019-05-23] MEDS: NICOTINE 21 MG/PAT TD SCH ×2 (02:56→09:19)
[2019-05-23] MEDS: ROPINIROLE HCL 1 MG TAB PO SCH ×2 (02:56→20:55)
[2019-05-23 05:00] LABS: Potassium 4.6 mmol/L (3.5-5.1)
[2019-05-23] MEDS: IPRATROPIUM BROM 0.5MG/2.5ML NEB PRN ×2 (06:32→13:52)
[2019-05-23] MEDS: ALBUTEROL 2.5 MG/3 ML NEB SOL NEB PRN ×2 (06:33→13:52)
[2019-05-23 06:36] LABS: Urine Appearance CLEAR; Urine Bilirubin NEGATIVE (NEG); Urine Blood NEGATIVE (NEG); Urine Color YELLOW; Urine Glucose NEGATIVE (NEG); Urine Protein NEGATIVE (NEG); Urine Specific Gravity <=1.005 (1.005-1.030); Urine Urobilinogen 0.2 mg/dL (0.2-1.0); Urine pH 6.5 (5.0-7.0)
[2019-05-23 06:41] LABS: Urine Microscopic Reflex ORDER UMIC
[2019-05-23 06:48] LABS: Urine Bacteria <20 /HPF (<20); Urine Culture Reflex Order REFLEXED; Urine RBC NONE SEEN /HPF (NONE SEEN)
[2019-05-23] MEDS: FUROSEMIDE 40 MG/4 ML VIAL IV SCH ×2 (09:19→16:10)
[2019-05-23] MEDS: ENOXAPARIN 40 MG/0.4 ML SQ SCH (09:20)
--- NOTE | 2019-05-23 10:20 | ECHO ---
HEIGHT: 5 ft 6 in WEIGHT: 160 lb 0 oz DATE OF STUDY: 05/23/[address]: Bulmaro Moreno MD 2-DIMENSIONAL: YES M.MODE: YES DOPPLER: YES COLOR FLOW: YES TDS: NO PORTABLE: NO DEFINITY: NO BUBBLE STUDY: NO DIAGNOSIS: CONGESTIVE HEART FAILURE CARDIAC HISTORY: CATHERIZATION: YES SURGERY: NO PROSTHETIC VALVE: NO PACEMAKER: NO MEASUREMENTS (cm) DIASTOLIC (NORMALS) SYSTOLIC (NORMALS) IVSd 1.0 (0.6-1.2) LA Diam 3.8 (1.9-4.0) LVEF 67% LVIDd 5.7 (3.5-5.7) LVIDs 3.6 (2.0-3.5) %FS 37% LVPWd 1.1 (0.6-1.2) Ao Diam 3.0 (2.0-3.7) 2 DIMENSIONAL ASSESSMENT: RIGHT ATRIUM: NORMAL LEFT ATRIUM: NORMAL RIGHT VENTRICLE: NORMAL LEFT VENTRICLE: NORMAL TRICUSPID VALVE: NORMAL MITRAL VALVE: NORMAL PULMONIC VALVE: NORMAL AORTIC VALVE: NORMAL PERICARDIAL EFFUSION: NONE AORTIC ROOT: NORMAL LEFT VENTRICULAR WALL MOTION: NORMAL. DOPPLER/COLOR FLOW: MILD MITRAL REGURGITATION. TRACE OF TRICUSPID REGURGITATION. NORMAL RIGHT VENTRICULAR SYSTOLIC PRESSURE. COMMENTS: NORMAL 2D ECHO. MILD MITRAL REGURGITATION. TECHNOLOGIST: YOLA SHIN
--- NOTE | 2019-05-23 10:53 | EKG ---
Test Date: 2019-05-22 Test Time: 19:35:51 Lung Gun Operator: KALINAT MEASUREMENT RESULTS: Intervals: Rate: 60 WI: 142 QRSD: 84 QT: 406 QTc: 406 [place]: P: 49 WI: 142 QRS: 42 T: 48 INTERPRETIVE STATEMENTS: Normal sinus rhythm Normal ECG Compared to ECG 03/31/2019 19:23:01 Myocardial infarct finding no longer present Electronically Signed On 05-23-19 10:52:38 CDT by Bulmaro Moreno
[2019-05-23] MEDS: HYDROMORPHONE HCL 1 MG/ML INJ IV PRN ×2 (11:14→18:51)
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
[2019-05-23] MEDS: HYDRALAZINE HCL 25 MG TABLET PO SCH ×2 (13:39→20:55)
[2019-05-23] MEDS: ISOSORBIDE DINIT 20 MG TAB PO SCH ×2 (13:39→20:57)
[2019-05-23] MEDS: CARVEDILOL 3.125 MG TAB PO SCH ×2 (13:42→20:56)
[2019-05-23] MEDS: clonazePAM 1 MG TAB PO SCH ×2 (13:43→20:55)
--- NOTE | 2019-05-23 20:29 | PN ---
Subjective: Patient seen and examined. Chart reviewed and case discussed with RN. Patient states s he feels somewhat better, however, still having some chest tightness. Medications: List reviewed. Physical Examination: Vital Signs: Temperature 97.1, heart rate 52, blood pressure 100/57 respirations 15, O2 of 95% on ro om air. General: Awake, alert, and oriented x3. Some mild distress. CV: S1, S2. Peripheral pulses present. Respiratory: Diminished breath sounds, crackles present. No wheezing. No use of accessory muscles. Gastrointestinal: Abdomen is soft, nontender, nondistended. Positive bowel sounds. Extremities: No clubbing, cyanosis, or edema. Neurologic: Nonfocal. Laboratory Data: Sodium 139, potassium 4.6, chloride 105, CO2 of 28, BUN 37, creatinine 1.45, glucos e 126, calcium 8.3. Cultures pending. Echocardiogram shows EF of 67%. Assessment: A 53-year-old female: 1.Acute on chronic systolic congestive heart failure. Echocardiogram shows significantly improved e jection fraction in 60s. We will continue with congestive heart failure guidelines, monitor I's and O's, and strict fluid restriction. 2.Nicotine dependence with cigarette smoking, counseled. 3.Dilated cardiomyopathy, currently on LifeVest. 4.Chronic pain syndrome. We will resume medications as tolerated. 5.Essential hypertension. We will continue with home medications, stable. 6.Generalized anxiety disorder. Patient is on Klonopin. 7.Hypothyroidism. We will continue levothyroxine. 8.History of thoracic aortic rupture and then subsequent dissection with repair and deep venous thro mbosis prophylaxis. Plan: Continue diuresis. Likely discharge in a.m. once condition improves. /MODL Voice ID: [id number] Report ID: [id number]
[2019-05-23] MEDS: TIZANIDINE 4 MG TABLET PO SCH (20:56)
[2019-05-23] MEDS: HOME MED 1 EA UNK (Vortioxetine Hydrobromide [Trintellix] 1 TAB) PO SCH (20:57)
[2019-05-24] MEDS: HYDROMORPHONE HCL 1 MG/ML INJ IV PRN ×3 (00:42→13:34)
[2019-05-24] MEDS ORDERED: ACETAMINOPHEN 325 MG TABLET PO ONE (05:45)
[2019-05-24] MEDS: LEVOTHYROXINE SOD 0.05 MG TABLET PO SCH (06:09)
[2019-05-24] MEDS: SENOSIDES 8.6 MG TAB PO PRN ×2 (06:10→14:18)
[2019-05-24 06:22] LABS: Absolute Lymphocytes (CBC) 1.7 K/uL (0.7-4.9); Basophils % 0.8 % (0-1.3); Eosinophils % 5.7 % (0-4.4); Hematocrit 35.1 % (36.0-45.0); Lymphocytes % 41.6 % (15.3-44.8); MPV 8.1 fL (7.6-11.3); Monocytes % 8.5 % (3.3-12.3); RBC Red Blood Cell Count 3.61 M/uL (3.86-4.86)
[2019-05-24 06:24] LABS: Albumin 3.4 g/dL (3.4-5.0); Bilirubin Total 0.3 mg/dL (0.2-1.0); Potassium 4.1 mmol/L (3.5-5.1); Protein, Total 6.2 g/dL (6.4-8.2)
[2019-05-24] MEDS: IPRATROPIUM BROM 0.5MG/2.5ML NEB PRN ×2 (06:30→11:00)
[2019-05-24] MEDS: ALBUTEROL 2.5 MG/3 ML NEB SOL NEB PRN ×2 (06:30→11:00)
[2019-05-24] MEDS: LISINOPRIL 5 MG TAB PO SCH (08:55)
[2019-05-24] MEDS: TIZANIDINE 4 MG TABLET PO SCH ×2 (08:56→20:44)
[2019-05-24] MEDS: FUROSEMIDE 40 MG/4 ML VIAL IV SCH ×2 (08:56→16:48)
[2019-05-24] MEDS: ISOSORBIDE DINIT 20 MG TAB PO SCH ×3 (08:56→20:45)
[2019-05-24] MEDS: CARVEDILOL 3.125 MG TAB PO SCH ×2 (08:56→20:44)
[2019-05-24] MEDS: ENOXAPARIN 40 MG/0.4 ML SQ SCH (08:57)
[2019-05-24] MEDS: HYDRALAZINE HCL 25 MG TABLET PO SCH ×3 (08:57→20:45)
[2019-05-24] MEDS: CITALOPRAM 10 MG TABLET PO SCH (08:57)
[2019-05-24] MEDS: NICOTINE 21 MG/PAT TD SCH (08:58)
[2019-05-24] MEDS: HOME MED 1 EA UNK (Vortioxetine Hydrobromide [Trintellix] 1 TAB) PO SCH ×2 (09:00→20:45)
[2019-05-24] MEDS ORDERED: SENOSIDES 8.6 MG TAB PO SCH (09:00)
[2019-05-24] MEDS: clonazePAM 1 MG TAB PO SCH ×2 (09:06→20:45)
[2019-05-24] MEDS: IPRATROPIUM BROM 0.5MG/2.5ML NEB SCH ×2 (16:09→20:15)
[2019-05-24] MEDS: ALBUTEROL 2.5 MG/3 ML NEB SOL NEB SCH ×2 (16:09→20:15)
--- NOTE | 2019-05-24 16:27 | P.PN ---
Subjective Date of Service: 05/24/19 Chief Complaint: acute on chronic systolic CHF Patient seen and examined at bedside. No family at bedside. Chart reviewed and case discussed with nursing staff. States she is doing better, the continues to have shortness of breath. States that she continues to wheeze. She has also continued to go down to smoke. Review of Systems 10-point ROS is otherwise unremarkable Physical Examination - Vital Signs Temperature: 98.3 F Blood Pressure: 118/58 Pulse: 56 Respirations: 16 Pulse Ox (%): 97 - Physical Exam General: Alert, In no apparent distress, Oriented x3 HEENT: Atraumatic, PERRLA, EOMI Neck: Supple, JVD not distended Respiratory: Diminished, Expiratory wheezes Cardiovascular: Regular rate/rhythm, Normal S1 S2 Gastrointestinal: Normal bowel sounds, No tenderness Musculoskeletal: No tenderness Integumentary: No rashes Neurological: Normal speech, Normal tone, Normal affect Lymphatics: No axilla or inguinal lymphadenopathy Assessment And Plan - Plan A 53-year-old female: 1. Acute on chronic systolic congestive heart failure. Echocardiogram shows significantly improved ejection fraction in 60s. Discussed case with patient's mock up maker, Dr.Wei Aceves Boyd. Records obtained in a echo cardiogram done in March of 2019 at [facility] reviewed. Echocardiogram at that time with ejection fraction in 20-25%. Patient was placed in a life vest after that, pending a repeat echo and evaluation for defibrillation at the end of this month by her primary mock up maker. We will continue with congestive heart failure guidelines, monitor I's and O's, and strict fluid restriction. 2. Nicotine dependence with cigarette smoking, counseled. 3. Dilated cardiomyopathy, currently on LifeVest. Echocardiogram improved from prior. 4. Chronic pain syndrome. We will continue home medications as tolerated. Discontinue IV pain medications at this time. 5. Essential hypertension. We will continue with home medications, stable. 6. Generalized anxiety disorder. Patient is on Klonopin, continue 7. Hypothyroidism. We will continue levothyroxine. 8. Shortness of breath, could be secondary to COPD due to longstanding cigarette smoking. No set diagnosis of COPD at this time. Continues to sats well on room air. Continue breathing treatments scheduled. She will need outpatient follow up with the bank officer for further PFTs. 8. History of thoracic aortic rupture and then subsequent dissection with repair and deep venous thrombosis prophylaxis. Plan: Likely discharge in a.m. once condition improves. She will need outpatient follow up with the primary mock up maker in 1 week.
--- NOTE | 2019-05-24 18:00 | PN ---
Date of Progress Note: 05/24/2019 The patient was seen by Dr. Moreno on 05/23/2019 because of possible congestive heart failure. There was a question of systolic congestive heart failure. However, an echocardiogram, which was done aft er the consultation was normal with a normal ejection fraction, no diastolic dysfunction. I do not t hink she needs any Entresto. Her chest x-ray is negative. No evidence of pulmonary edema. Her symp toms may be secondary to anxiety and depression. I would continue her present regimen. No Entresto required, salt restriction, possibly beta blockers and I think patient can go home whenever it is oka y with Dr. Infante. JUDY/GENARO Voice ID: [id number] Report ID: [id number]
[2019-05-24] MEDS: ROPINIROLE HCL 1 MG TAB PO SCH (20:44)
[2019-05-24] MEDS: ATORVASTATIN 20 MG TAB PO SCH (20:45)
[2019-05-25] MEDS: IPRATROPIUM BROM 0.5MG/2.5ML NEB SCH ×3 (00:15→08:05)
[2019-05-25] MEDS: ALBUTEROL 2.5 MG/3 ML NEB SOL NEB SCH ×3 (00:15→08:05)
[2019-05-25] MEDS: HYDROMORPHONE ORAL 4 MG TAB PO PRN ×2 (02:36→08:58)
[2019-05-25 05:35] VITALS: BMI 25.2
[2019-05-25] MEDS: LEVOTHYROXINE SOD 0.05 MG TABLET PO SCH (05:36)
[2019-05-25 08:42] VITALS: BP 133/61; TEMP 97.2
[2019-05-25] MEDS: ENOXAPARIN 40 MG/0.4 ML SQ SCH (08:58)
[2019-05-25] MEDS: NICOTINE 21 MG/PAT TD SCH (08:58)
[2019-05-25] MEDS: FUROSEMIDE 40 MG/4 ML VIAL IV SCH (09:00)
[2019-05-25] MEDS: CITALOPRAM 10 MG TABLET PO SCH (09:00)
[2019-05-25] MEDS: HOME MED 1 EA UNK (Vortioxetine Hydrobromide [Trintellix] 1 TAB) PO SCH (09:00)
[2019-05-25] MEDS: HYDRALAZINE HCL 25 MG TABLET PO SCH (09:00)
[2019-05-25] MEDS: TIZANIDINE 4 MG TABLET PO SCH (09:01)
[2019-05-25] MEDS: clonazePAM 1 MG TAB PO SCH (09:02)
[2019-05-25] MEDS: LISINOPRIL 5 MG TAB PO SCH (09:02)
[2019-05-25] MEDS: CARVEDILOL 3.125 MG TAB PO SCH (09:02)
[2019-05-25] MEDS: ISOSORBIDE DINIT 20 MG TAB PO SCH (09:03)
[2019-05-25] MEDS: SENOSIDES 8.6 MG TAB PO PRN (09:05)
[2019-05-25 12:44] VITALS: O2SAT 97
--- NOTE | 2019-05-25 16:24 | P.SSS ---
Patient History Date of Service: 05/25/19 Reason for admission: acute on chronic systolic CHF History of Present Illness: Ms Martel is a 53 years old woman with history of CAD, alcohol abuse, dilated cardiomyopthy with recent echo done in [facility] showing 20-25% EF, she is wearing a life verst, came to ED complaining of progressive SOB, since 3 days ago. Her symptoms are worst when she lay down. She was also complaining of chest pain, pressure like, lasting a couple of minutes, radiating to the back, having that several times today. Trop I negative, EKG SR at 60 bpm, no ST-T abnormalities. Pro-BNP elevated. CXR bilateral venous congestion. She is a smoker and lately has been coughing more than usual. Allergies duloxetine HCl [From Cymbalta] Allergy (Intermediate, Verified 11/24/15 00:45) EDEMA quetiapine fumarate [From Seroquel] Allergy (Intermediate, Verified 11/24/15 00: 45) EDEMA bupropion HCl [From Wellbutrin] Allergy (Verified 04/05/19 23:32) swelling Home medications list reviewed: Yes Home Medications: Ropinirole HCl 2 mg PO BEDTIME 02/11/12 Hydromorphone [Dilaudid*] 4 mg PO Q6H PRN 02/26/15 Levothyroxine [Synthroid*] 50 mcg PO DAILY 02/26/15 Trazodone [Desyrel*] 100 mg PO BEDTIME 02/26/15 Atorvastatin Calcium [Lipitor*] 1 tab PO BEDTIME 04/06/19 Vortioxetine Hydrobromide [Trintellix] 1 tab PO BID 04/06/19 clonazePAM [Klonopin*] 1 mg PO BID 04/06/19 Atomoxetine HCl 40 mg PO DAILY 05/23/19 Carvedilol 3.125 mg PO BID 05/23/19 Citalopram Hydrobromide [Celexa] 20 mg PO DAILY 05/23/19 Furosemide 40 mg PO DAILY 05/23/19 Hydralazine HCl [Apresoline] 50 mg PO TID 05/23/19 Isosorbide Dinit [Isordil*] 20 mg PO TID 05/23/19 Lisinopril [Zestril] 2.5 mg PO DAILY 05/23/19 Tizanidine HCl 2 mg PO BID 05/23/19 Albuterol Neb [Proventil 0.083% Neb Soln] 2.5 mg NEB [id number] #1 amp 05/25/19 Albuterol Sulfate [Proair Hfa] 1 puff IH BIDP PRN #1 [id number] 05/25/19 - Past Medical/Surgical History Has patient received pneumonia vaccine in the past: Yes Diabetic: No -: HTN -: Hypothyroidism -: osteoarthritis -: depression -: Meningioma 1986 -: Thoracic aorta [id number] -: Toracic aorata dissection 2012 -: Cholecysectomy -: Hernia repair -: Ovarian cyst removal -: Chronic systolic CHF -: R knee sx -: R shoulder replacement -: X 2 -: ovarian cyst removal -: cholecystectomy - Family History Mother -: Heart disease, Hypertension, Stroke, Cancer Notes: A-fib, breast cancer, blood clots Father -: Hypertension, Other (see notes) Notes: Brain disorder - Social History Smoking Status: Current every day smoker Alcohol use: Yes CD- Drugs: No Caffeine use: Yes Place of Residence: Home Review of Systems 10-point ROS is otherwise unremarkable Physical Examination - Vital Signs Temperature: 97.2 F Blood Pressure: 133/61 Pulse: 56 Respirations: 16 Pulse Ox (%): 93 - Physical Exam General: Alert, In no apparent distress, Oriented x3 HEENT: Atraumatic, PERRLA, Mucous membr. moist/pink, EOMI, Sclerae nonicteric Neck: Supple, 2+ carotid pulse no bruit, No LAD, Without JVD or thyroid abnormality Respiratory: Clear to auscultation bilaterally, Normal air movement Cardiovascular: Regular rate/rhythm, Normal S1 S2 Gastrointestinal: Normal bowel sounds, No tenderness Musculoskeletal: No tenderness Integumentary: No rashes Neurological: Normal gait, Normal speech, Normal strength at 5/5 x4 extr, Normal tone, Normal affect Lymphatics: No axilla or inguinal lymphadenopathy Treatment Summary: Patient was admitted for acute on chronic systolic congestive heart failure. Discussed case with patient's clock and watch assembler, at [facility]. Records obtained and an echocardiogram done in March of 2019 at [facility] reviewed. Echocardiogram at that time with ejection fraction in 20-25%. Patient was placed in a life vest after that, pending a repeat echo and evaluation for defibrillation at the end of this month by her primary clock and watch assembler. Her repeat echocardiogram was done here in this admission, which showed significant improvement with ejection fraction in 60s. She does have a history of chronic pain syndrome, sees pain management physician as an outpatient. She was continued on her home medications along with some IV pain control. She did have some shortness of breath throughout the stay. This could be secondary to COPD due to her longstanding history of cigarette smoking. She does not have as a diagnosis of COPD but was recommended to follow up with pulmonology for further PFTs as an outpatient. Her diagnoses and treatment plan were explained to her, all questions were answered and patient verbalized understanding. She was then discharged home in a safe and stable manner. She was discharged with instructions to follow up with her clock and watch assembler in 1 week. She was also provided with a prescription for albuterol inhaler as well as a nebulizers. - Disposition Discharge Date: 05/25/19 Disposition: ROUTINE DISCHARGE Condition: GOOD Consultations: Cardiology Patient Discharge Instructions: Please follow up with your PCP in 2-3 days. Please follow up with your clock and watch assembler in 1 week. Return to the Emergency room for worsening symptoms. Diet: AHA Activity: Ad alize Time Spent Managing Pts Care (In Minutes): 55
== END 2019-05-25 11:04 | disposition home or self-care (01) ==
LOC: ER 19:20 → ERHOLD 23:21 → 4TH 23:37
PROVIDERS: ADMIT Internal Medicine; ATTEND Family Medicine
DX: I11.0 Hypertensive heart disease with heart failure (principal); I50.23 Acute on chronic systolic (congestive) heart failure; I25.10 Atherosclerotic heart disease of native coronary artery without angina pectoris; E03.9 Hypothyroidism, unspecified; M19.90 Unspecified osteoarthritis, unspecified site; F32.9 Major depressive disorder, single episode, unspecified; G89.4 Chronic pain syndrome; I34.0 Nonrheumatic mitral (valve) insufficiency; F17.210 Nicotine dependence, cigarettes, uncomplicated; Z79.891 Long term (current) use of opiate analgesic; Z79.899 Other long term (current) drug therapy
CPT/HCPCS: 93005; 93306; 87088; 87070; 85025 ×2; 87086; 80048 ×2; 36415 ×2; 83735; 87205; 85610; 80076; 84484 ×2; 80053; 83880; 71045; 97162; 94640; 94760 ×10; 96375; 96374; 99285; J1940 ×6; J1650 ×3; J3010; J1170 ×5; G0378 ×2; 81003; 81015

== ENCOUNTER 2019-08-19 16:43 | Emergency (ER) | payer OTHER ==
[2019-08-19 17:49] LABS: Absolute Lymphocytes (CBC) 1.2 K/uL (0.7-4.9); Basophils % 0.4 % (0-1.3); MPV 7.6 fL (7.6-11.3); RBC Red Blood Cell Count 3.57 M/uL (3.86-4.86)
[2019-08-19 17:53] LABS: Protime INR 0.84
--- NOTE | 2019-08-19 17:57 | RAD REPORT ---
EXAM DESCRIPTION: CT - Head Brain Wo Cont - 08/19/2019 5:45 pm CLINICAL HISTORY: Blurred vision, transient alteration of awareness COMPARISON: CT head April 05 TECHNIQUE: Axial 5 mm thick images of the head were obtained without IV contrast. All CT scans are performed using dose optimization technique as appropriate and may include automated exposure control or mA/KV adjustment according to patient size. FINDINGS: No intracranial hemorrhage, mass, edema or shift of mid-line structures. No acute infarcti on changes seen. No abnormal extra-axial fluid collections. Ventricles are normal. Postsurgical harden es to the left cerebellum and left occipital bone noted similar to comparison. Mastoid air cells and visualized portions of the paranasal sinuses are clear. No acute bony findings. IMPRESSION: Negative non-contrast CT head examination for acute finding. No significant change from comparison.
[2019-08-19 18:02] LABS: Urine Blood NEGATIVE (NEG); Urine Glucose NEGATIVE (NEG); Urine Protein NEGATIVE (NEG); Urine Specific Gravity 1.015 (1.005-1.030)
[2019-08-19 18:06] LABS: Urine Bacteria <20 /HPF (<20); Urine Culture Reflex Order NOT NEEDED; Urine RBC NONE SEEN /HPF (NONE SEEN)
[2019-08-19 18:15] LABS: Barbiturates NEGATIVE (NEGATIVE); Benzodiazepines NEGATIVE (NEGATIVE); Cocaine NEGATIVE (NEGATIVE); METHAMPHETAM POSITIVE (NEGATIVE); Methadone NEGATIVE (NEGATIVE); Opiates POSITIVE (NEGATIVE); Phencyclidine NEGATIVE (NEGATIVE); THC Cannibis NEGATIVE (NEGATIVE)
[2019-08-19 18:15] LABS: ALT/SGPT 15 U/L (12-78); AST/SGOT 14 U/L (15-37); Albumin 3.7 g/dL (3.4-5.0); Alkaline Phosphatase 103 U/L (45-117); BUN Blood Urea Nitrogen 36 mg/dL (7-18); Bicarbonate 29 mmol/L (21-32); Bilirubin Direct 0.1 mg/dL (0-0.2); Bilirubin Total 0.4 mg/dL (0.2-1.0); Glucose Level 99 mg/dL (74-106); Potassium 4.1 mmol/L (3.5-5.1); Protein, Total 6.6 g/dL (6.4-8.2); Sodium Level 137 mmol/L (136-145)
[2019-08-19] MEDS ORDERED: NA CHLORIDE 0.9% 500 ML ONE (18:52)
--- NOTE | 2019-08-19 19:49 | ER ---
Nurse's Notes [facility] Name: Betsey Martel Age: 54 yrs Sex: Female : 1965 Arrival Date: 08/19/2019 Time: 16:47 Bed 25 Private MD: Diagnosis: Other chronic pain-low back;Dehydration Presentation: 08/19 16:50 Presenting complaint: Foot and ankle swelling, low back pain, lethargy, blurred vision, hb and malaise x 2-3 days. Transition of care: patient was not received from another setting of care. Onset of symptoms was August 17, 2019. Risk Assessment: Do you want to hurt yourself or someone else? Patient reports no desire to harm self or others. Care prior to arrival: None. 16:50 Method Of Arrival: Ambulatory hb 16:50 Acuity: KAREN 3 hb 21:04 Initial Sepsis Screen: Does the patient meet any 2 criteria? No. Patient's initial tr5 sepsis screen is negative. Does the patient have a suspected source of infection? No. Patient's initial sepsis screen is negative. Historical: - Allergies: 16:51 Cymbalta; hb 16:51 Demerol; hb 16:51 Seroquel; hb 16:51 Wellbutrin; hb - Home Meds: 18:48 Lisinopril Oral [Active]; Lasix Oral [Active]; Protonix Oral [Active]; levothyroxine tr5 oral [Active]; carvedilol oral oral [Active]; hydroxyzine HCl Oral [Active]; Simvastatin Oral [Active]; Isosorbide Dinitrate Oral [Active]; ropinirole oral oral [Active]; Trazodone Oral [Active]; Folic Acid Oral [Active]; - PMHx: 18:50 Anemia; BRAIN TUMOR 1996; CHF; Chronic pain; degenerative bone disease; Depression; tr5 ETHO INTOXICATION; ETOH; GERD; Hip Pain; Hypertension; Hypothyroidism; kidney disease; osteoarthritis; Rheumatoid Arthritis; THORACIC AORTIC ANEURYSM; - PSHx: 18:48 Heart stents; tr5 - Immunization history:: Adult Immunizations up to date. - Social history:: Smoking status: Patient/guardian denies using tobacco. - Ebola Screening: : No symptoms or risks identified at this time. Screenin:53 Abuse screen: Denies threats or abuse. Nutritional screening: No deficits noted. tr5 Tuberculosis screening: No symptoms or risk factors identified. Fall Risk None identified. Assessment: 16:53 General: Appears uncomfortable, Behavior is anxious, listless. Pain: Complains of pain tr5 in back Pain does not radiate. Quality of pain is described as aching, Pain began years ago. Is continuous. Neuro: Level of Consciousness is lethargic, Oriented to person, place, situation, Program Coordinator Executive Education are equal bilaterally Moves all extremities. Gait is unsteady. Cardiovascular: Heart tones present Capillary refill < 3 seconds Pulses are all present. Edema is absent. Respiratory: Airway is patent Respiratory effort is even, unlabored, Respiratory pattern is regular, symmetrical. GI: No signs and/or symptoms were reported involving the gastrointestinal system. : No signs and/or symptoms were reported regarding the genitourinary system. EENT: No signs and/or symptoms were reported regarding the EENT system. Derm: No signs and/or symptoms reported regarding the dermatologic system. Musculoskeletal: No signs and/or symptoms reported regarding the musculoskeletal system. 18:00 Reassessment: Patient appears in no apparent distress at this time. Patient and/or tr5 family updated on plan of care and expected duration. Pain level reassessed. Patient is alert, oriented x 3, equal unlabored respirations, skin warm/dry/pink. 19:00 Reassessment: Patient appears in no apparent distress at this time. Patient and/or tr5 family updated on plan of care and expected duration. Pain level reassessed. Patient is alert, oriented x 3, equal unlabored respirations, skin warm/dry/pink. Vital Signs: 16:51 BP 110 / 54; Pulse 78; Resp 16; Temp 98.3; Pulse Ox 100% on R/A; Weight 66.68 kg; hb Height 5 ft. 7 in. (170.18 cm); Pain 8/10; 19:18 BP 141 / 58; Pulse 60; Resp 16; Temp 97.6(O); Pulse Ox 98% ; lt1 16:51 Body Mass Index 23.02 (66.68 kg, 170.18 cm) ED Course: 16:47 Patient arrived in ED. mr 16:51 Triage completed. hb 16:51 Arm band placed on. 16:53 Bed in low position. Call light in reach. Side rails up X 1. tr5 16:57 Chris Whiting NP is PHCP. pm1 16:57 Magdy Macdonald MD is Attending Physician. pm1 17:00 Bentley Hernandez, SOURAV is Primary Nurse. tr5 17:35 Initial lab(s) drawn, by ms, sent to lab. Inserted saline lock: 22 gauge in right lt1 antecubital area, using aseptic technique. 17:46 CT Head Brain wo Cont In Process Unspecified. EDNE 17:47 EKG done, by technical services specialist. reviewed by Chris Whiting NP. 3 17:52 Urine Drug Screen Sent. lt1 17:52 Urine Microscopic Only Sent. lt1 21:03 No provider procedures requiring assistance completed. Patient did not have IV access tr5 during this emergency room visit. Administered Medications: 18:58 Drug: NS 0.9% 500 ml Route: IV; Rate: bolus; Site: right antecubital; tr5 20:25 Drug: fentaNYL (PF) 25 mcg {Note: RASS:0.} Route: IVP; Site: right antecubital; tr5 Outcome: 19:49 Discharge ordered by . pm1 21:03 Discharged to home ambulatory. tr5 21:03 Condition: stable 21:03 Discharge instructions given to patient, Instructed on discharge instructions, follow up and referral plans. Demonstrated understanding of instructions, follow-up care. 21:05 Patient left the ED. tr5 Signatures: Dispatcher [employer] [facility] Laurel Velez Chris Whiting NP RESIDENTIAL COLLECTIONS pm1 Yara Lorenzo RN RN hb Montes, Shakira 3 Marci Sung 1 Bentley Hernandez RN RN tr5
--- NOTE | 2019-08-19 19:50 | EDPHYS ---
Physician Documentation [facility] Name: Betsey Martel Age: 54 yrs Sex: Female : 1965 Arrival Date: 08/19/2019 Time: 16:47 Bed 25 Private MD: ED Physician Magdy Macdonald HPI: 08/19 18:05 This 54 yrs old Female presents to ER via Ambulatory with complaints of Back pm1 Pain, Lethargy, Swelling of Lower Extremity. 18:05 The patient presents with pain low back that is chronic and takes Dilaudid 4 mg PO TID. pm1 Patient is concerned that the contrast that she got 2 weeks ago for her cardiac cath has caused some kidney damage and hyperkalemia. Onset: The symptoms/episode began/occurred 3 day(s) ago. The pain does not radiate. Associated signs and symptoms: Pertinent positives: sleepiness and blurred vision. decreased PO consumption due to history of gastroparesis , Pertinent negatives: chest pain, constipation, dysuria, fever. Modifying factors: The patient symptoms are alleviated by nothing, the patient symptoms are aggravated by nothing. Severity of symptoms: in the emergency department the symptoms are actually worse. The patient has experienced similar episodes in the past, a few times. Historical: - Allergies: 16:51 Cymbalta; hb 16:51 Demerol; hb 16:51 Seroquel; hb 16:51 Wellbutrin; hb - Home Meds: 18:48 Lisinopril Oral [Active]; Lasix Oral [Active]; Protonix Oral [Active]; levothyroxine tr5 oral [Active]; carvedilol oral oral [Active]; hydroxyzine HCl Oral [Active]; Simvastatin Oral [Active]; Isosorbide Dinitrate Oral [Active]; ropinirole oral oral [Active]; Trazodone Oral [Active]; Folic Acid Oral [Active]; - PMHx: 18:50 Anemia; BRAIN TUMOR 1996; CHF; Chronic pain; degenerative bone disease; Depression; tr5 ETHO INTOXICATION; ETOH; GERD; Hip Pain; Hypertension; Hypothyroidism; kidney disease; osteoarthritis; Rheumatoid Arthritis; THORACIC AORTIC ANEURYSM; - PSHx: 18:48 Heart stents; tr5 - Immunization history:: Adult Immunizations up to date. - Social history:: Smoking status: Patient/guardian denies using tobacco. - Ebola Screening: : No symptoms or risks identified at this time. ROS: 18:05 Eyes: Negative for injury, pain, redness, and discharge, ENT: Negative for injury, pm1 pain, and discharge, Neck: Negative for injury, pain, and swelling, Cardiovascular: Negative for chest pain, palpitations, and edema, Respiratory: Negative for shortness of breath, cough, wheezing, and pleuritic chest pain, Abdomen/GI: Negative for abdominal pain, nausea, vomiting, diarrhea, and constipation. 18:05 : Negative for injury, bleeding, discharge, and swelling, MS/Extremity: Negative for injury and deformity, Skin: Negative for injury, rash, and discoloration. 18:05 Constitutional: Positive for malaise, poor PO intake, Negative for chills, fever. 18:05 Back: Positive for of the lumbar area, sacrum and right mid back. Exam: 18:05 Constitutional: This is a well developed, well nourished patient who is awake, alert, pm1 and in no acute distress. Head/Face: Normocephalic, atraumatic. Chest/axilla: Normal chest wall appearance and motion. Nontender with no deformity. No lesions are appreciated. Cardiovascular: Regular rate and rhythm with a normal S1 and S2. No gallops, murmurs, or rubs. Normal PMI, no JVD. No pulse deficits. Respiratory: Lungs have equal breath sounds bilaterally, clear to auscultation and percussion. No rales, rhonchi or wheezes noted. No increased work of breathing, no retractions or nasal flaring. Abdomen/GI: Soft, non-tender, with normal bowel sounds. No distension or tympany. No guarding or rebound. No evidence of tenderness throughout. 18:05 Skin: Warm, dry with normal turgor. Normal color with no rashes, no lesions, and no evidence of cellulitis. MS/ Extremity: Pulses equal, no cyanosis. Neurovascular intact. Full, normal range of motion. 18:05 Back: pain, is absent, normal spinal alignment noted, vertebral tenderness, is not appreciated, muscle spasm, is not present. 18:05 Neuro: Orientation: is normal, appropriate for stated age, Motor: is normal, moves all fours, Gait: is steady, at a normal pace, without difficulty. Vital Signs: 16:51 BP 110 / 54; Pulse 78; Resp 16; Temp 98.3; Pulse Ox 100% on R/A; Weight 66.68 kg; hb Height 5 ft. 7 in. (170.18 cm); Pain 8/10; 19:18 BP 141 / 58; Pulse 60; Resp 16; Temp 97.6(O); Pulse Ox 98% ; lt1 16:51 Body Mass Index 23.02 (66.68 kg, 170.18 cm) hb MDM: 17:07 Patient medically screened. pm1 18:52 Data reviewed: vital signs. Data interpreted: Pulse oximetry: on room air is 100 %. pm1 Interpretation: normal. 19:40 ED course: patient takes Dilaudid 4 mg PO TID. Patient requesting something for her pm1 chronic back pain. Will give patient fentanyl . 19:40 ED course: Patient reports that she took one of her son's Strattera to help her energy pm1 levels, does not regularly take ADD/ADHD medications on a regular basis. 19:48 Counseling: I had a detailed discussion with the patient and/or guardian regarding: the pm1 historical points, exam findings, and any diagnostic results supporting the discharge/admit diagnosis, lab results, the need for outpatient follow up, to return to the emergency department if symptoms worsen or persist or if there are any questions or concerns that arise at home. 08/19 17:08 Order name: Acetaminophen; Complete Time: 18:19 pm1 08/19 17:08 Order name: Basic Metabolic Panel; Complete Time: 18:19 pm1 08/19 17:08 Order name: CBC with Diff; Complete Time: 18:15 pm1 08/19 17:08 Order name: ETOH Level; Complete Time: 18:15 pm1 08/19 17:08 Order name: Hepatic Function; Complete Time: 18:19 pm1 08/19 17:08 Order name: PT-INR; Complete Time: 18:15 pm1 08/19 17:08 Order name: Ptt, Activated; Complete Time: 18:15 pm1 08/19 17:08 Order name: Salicylate; Complete Time: 18:19 pm1 08/19 17:08 Order name: Urine Drug Screen; Complete Time: 18:19 pm1 08/19 17:08 Order name: CT Head Brain wo Cont; Complete Time: 18:15 pm1 08/19 17:09 Order name: Urine Microscopic Only; Complete Time: 18:15 pm1 08/19 17:51 Order name: Urine Dipstick--Ancillary (enter results); Complete Time: 18:15 eb 08/19 17:08 Order name: EKG; Complete Time: 17:09 pm1 08/19 17:08 Order name: EKG - Nurse/Tech; Complete Time: 17:36 pm1 08/19 17:08 Order name: IV Saline Lock; Complete Time: 17:36 pm1 08/19 17:08 Order name: Labs collected and sent; Complete Time: 17:36 pm1 08/19 17:08 Order name: Urine Dipstick-Ancillary (obtain specimen); Complete Time: 17:52 pm1 Administered Medications: 18:58 Drug: NS 0.9% 500 ml Route: IV; Rate: bolus; Site: right antecubital; tr5 20:25 Drug: fentaNYL (PF) 25 mcg {Note: RASS:0.} Route: IVP; Site: right antecubital; tr5 Disposition: 08/19/19 19:49 Discharged to Home. Impression: Dehydration, Other chronic pain - low back. - Condition is Stable. - Discharge Instructions: Chronic Pain, Dehydration, Adult, Rehydration, Adult. - Medication Reconciliation Form, Thank You Letter, Antibiotic Education, Prescription Opioid Use form. - Follow up: Emergency Department; When: As needed; Reason: Worsening of condition. Follow up: Private Physician; When: 2 - 3 days; Reason: Recheck today's complaints, Continuance of care, Re-evaluation by your physician. - Problem is new. - Symptoms have improved. Addendum: 08/21/2019 04:48 Co-signature as Attending Physician, Magdy Macdonald MD. g s Signatures: Dispatcher [employer] EDMS Chris Whiting, USER EXPERIENCE TEAM LEAD USER EXPERIENCE TEAM LEAD pm1 Yara Lorenzo RN RN hb Starr, Gregory, MD MD gs Rodriguez, Tommie, RN RN tr5 Corrections: (The following items were deleted from the chart) 08/19 21:05 19:49 08/19/2019 19:49 Discharged to Home. Impression: DehydrationOther chronic pain - tr5 low back. Condition is Stable. Forms are Medication Reconciliation Form, Thank You Letter, Antibiotic Education, Prescription Opioid Use. Follow up: Emergency Department; When: As needed; Reason: Worsening of condition. Follow up: Private Physician; When: 2 - 3 days; Reason: Recheck today's complaints, Continuance of care, Re-evaluation by your physician. Problem is new. Symptoms have improved. pm1
[2019-08-19] MEDS ORDERED: FENTANYL CITR 100 MCG/2 ML ONE (20:20)
[2019-08-19 21:10] VITALS: BP 141/58; TEMP 97.6; O2SAT 98
--- NOTE | 2019-08-21 13:06 | EKG ---
Test Date: 2019-08-19 Test Time: 17:32:22 Endoscopy Registered Nurse: LORENZA MEASUREMENT RESULTS: Intervals: Rate: 56 WI: 152 QRSD: 92 QT: 408 QTc: 393 [place]: P: 53 WI: 152 QRS: 50 T: 90 INTERPRETIVE STATEMENTS: Sinus bradycardia Nonspecific ST and T wave abnormality Abnormal ECG Compared to ECG 05/22/2019 19:35:51 ST (T wave) deviation now present Sinus rhythm no longer present Electronically Signed On 08-21-19 13:03:58 CDT by Lavell Ruiz
== END 2019-08-19 21:05 | disposition home or self-care (01) ==
LOC: ER 16:43
DX: E86.0 Dehydration (principal); I10 Essential (primary) hypertension; F32.9 Major depressive disorder, single episode, unspecified; E03.9 Hypothyroidism, unspecified; Z95.818 Presence of other cardiac implants and grafts; Z88.5 Allergy status to narcotic agent; Z88.8 Allergy status to other drugs, medicaments and biological substances
CPT/HCPCS: 93005; 85025; 80048; 36415; 80320; 80329 ×2; 85610; 80076; 80307 ×8; 85730; 70450; 96374; 99284; J3010; J7040; 81003; 81015

== ENCOUNTER 2020-03-18 14:02 | Emergency (ER) | payer OTHER ==
--- OUTSIDE RECORDS SUMMARY | 2020-03-18 14:04 | XMS REPORT | Clinical Summary ---
:1965 Author Organization [facility] Address [address] [place] [address] Care Team Providers Name Role Phone Gibran [...] tablet lisinopril Take 20 mg by 0 Activ e (PRINIVIL,ZESTRIL) 40 mouth. mg tablet pantoprazole (PROTONIX) Take 40 mg by 0 Active 40 MG EC tablet mouth. rOPINIRole (REQUIP) 2 Take 2 mg by 0 Active MG tablet mouth. promethazine Take 25 mg by 0 02/08/2016 Ac tive (PHENERGAN) 25 MG mouth. tablet traZODone (DESYREL) 50 Take 50 mg by 0 Active MG tablet mouth. Active Problems No known active problems Encounters Date Type Specialty Care Team Description 05/27/2019 Telephone Orthopedic Surgery Dori Roman MA after 03/18/2019 Social History Tobacco Use Types Packs/Day Years [...] CANCER SCREENING 1985 BREAST CANCER SCREENING 2014 COLONOSCOPY SCREENING 2014 SHINGLES VACCINES (#1) 2014 INFLUENZA VACCINE 06/09/2020 07/25/2018 Results Not on fileafter 03/18/2019 Insurance Payer Benefit Plan / Subscriber ID Effective Dates Phone Addre ss Type Group [facility] MEDICARE [facility] DUAL COMPLETE xxxxxxxxx 2017-Present [facility] x[facility] 2018-Present Med icaid Advance Directives For more information, please contact: [phone] Type Date Recorded Patient Nut Former Explanati on Advance Directives, Living Will and Medical Power of Cold Roll Catcher
--- OUTSIDE RECORDS SUMMARY | 2020-03-18 14:05 | XMS REPORT | Continuity of Care Document ---
:1965 Author Organization [employer] Information [employer] Care Team Providers Name Role Phone 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 [facility] lumbar [facility] intervertebral Cente r, disc (disorder) [facility] [place] Depressive Resolved Problem 08/05/2019 [facility] disorder Medical (disorder) Center, [facility] [place] Hypertensive Active Problem 08/05/2019 [facility]inaldo as disorder, Medical systemic arterial Ce nter, (disorder) [facility] [place] Hypothyroidism Resolved Problem 08/05/2019 [facility] (disorder) [facility], [facility] [place] Impaired mobility Active Problem 08/05/2019 [facility] (finding) [facility], [facility] [place] Impaired skin Active Problem 08/05/[place] [facility] (finding[facility], [facility] [place] Kidney disease Resolved Problem 08/05/2019 [facility] (disorder) [facility], [facility] [place] Pain (finding) Active Problem 08/05/2019 [facility], [facility] [place] Rheumatoid Resolved Problem 08/05/2019 [facility] arthritis Medical (disorder) [place], [facility] [place] Medications Medication Details Route Status Patient Ordering Order Source Instructions Provider Date ondansetron Route: IV, Inactive 08/03/ [facility] (ANES) Drug form: 2018 Medical INJ, ONCE, Center Stop date: 08/03/19 17:55:00 CDT neostigmine Route: IV, Inactive 08/03/ [facility] (ANES) Drug form: 2018 Medical INJ, ONCE, Center Stop date: 08/03/19 17:55:00 CDT protamine (ANES) Route: IV, Inactive [place] Drug form: 2019 Medical INJ, ONCE, Center Stop date: 08/03/19 17:41:00 CDT esmolol (ANES) Route: [place] Drug form: 2018 Medical INJ, ONCE, Center Stop date: 08/03/19 17:36:00 CDT heparin (ANES) Route: [place], [place] Drug form: 2019 Medical INJ, ONCE, Center Stop date: 08/03/19 17:16:00 CDT vasopressin Route: IV, Inactive [place] (ANES) + sodium Drug form: 2019 Medic al chloride (ANES) INJ, ONCE, Cente r 19 mL Stop date: 08/03/19 17:16:00 CDT lidocaine (ANES) Route: IV, Inactive [facility] Drug form: 2018 Medical INJ, ONCE, Center Stop date: 08/03/19 16:51:00 CDT fentaNYL (ANES) Route: IV, Inactive [place] Drug form: 2018 Medical INJ, ONCE, Center Stop date: 08/03/19 16:51:00 CDT rocuronium Route: IV, Inactive [place] (ANES) Drug form: 2018 Medical INJ, ONCE, Center Stop date: 08/03/19 16:51:00 CDT propofol (ANES) Route: IV, Inactive [place] Drug form: 2018 Medical INJ, ONCE, Center Stop date: 08/03/19 16:51:00 CDT midazolam (ANES) Route: IV, Inactive [facility] Drug form: 2018 Medical SOLN, ONCE, Center Stop date: 08/03/19 16:45:00 CDT glycopyrrolate Route: IV, Inactive [place] (ANES) Drug form: 2018 Medical INJ, ONCE, Center Stop date: 08/03/19 16:45:00 CDT norepinephrine Route: IV, Inactive [place] (ANES) Drug form: 2018 Medical INJ, ONCE, Center Stop date: 08/03/19 16:40:00 CDT ceFAZolin (ANES) Route: IV, Inactive [facility] Drug form: 2019 Medical INJ, ONCE, Center Stop date: 08/03/19 16:35:00 CDT Isolyte S PH 7.4 Route: IV, Inactive [facility] (ANES) 1000 mL Total Volume: 2019 Med ical 1,000, Start Center date: 08/03/19 15:30:00 CDT, Stop date: 08/03/19 16:30:00 CDT 1/2 NS 1,000 mL 1,000 mL, No Longer [place] Rate: 100 Active 2019 Medical ml/hr, Infuse Center over: 10 hr, Route: IV, Dosing Weight 68.001 kg, Total Volume: 1,000, Start date: 08/03/19 14:31:00 CDT, Duration: 30 day, Stop date: 09/02/19 14:30:00 CDT, 1.79, m2, 0 Versed Notes: Same Inactive [facility] as: Versed ( 2019 Medical Preservative Center Free) MEDICATION WASTE Product Size: 5 mg Product Wasted: ___ mg Versed Notes: (Same Inactive [facility] as: Versed) 2019 Medical MEDICATION Center WASTE Product Size: 5 mg Product Wasted: ___ mg Probiotic 1 cap, PO, Active [facility] Formula oral Daily, 0 2019 Medical capsule Refill(s) [place] Magnesium 400 mg, PO, Active [facility] Sulfate ONCE, 0 2018 Medical Refill(s) [place] biotin 1000 mcg 1,000 Active [facility] oral tablet microgram = 1 2018 Medica l tab, PO, Center Daily, # 30 tab, 0 Refill(s) Non-Formulary 1 cap, PO, Active [facility] Medication Daily, 2019 Medical Refill(s) 0 Center Folic Acid 0.4 0.4 mg = 1 Active [place]do as MG Oral Tablet tab, PO, 2019 Medical Daily, # 100 Center tab, 0 Refill(s) Vitamin B-12 5,000 Active [facility] 5000 mcg microgram = 1 2018 Medical sublingual tab, SL, Center tablet Daily, 0 Refill(s) Zyrtec 5 mg, Daily, 0 Active [place] Refill(s) 2019 Medical Center Promethazine 25 mg = 1 tab, Active [place] Hydrochloride 25 PO, Q12H, PRN 2019 M edical MG Oral Tablet for motion Center sickness, # 60 tab, 0 Refill(s) clonazePAM 1 mg 1 mg = 1 tab, Active [place] oral tablet PO, PRN, PRN 2019 Medical Anxiety, # 30 Center tab, 0 Refill(s) rOPINIRole 2 mg 2 mg = 1 tab, Active [place] oral tablet PO, Bedtime, # 2019 Medic al 90 tab, 1 Center Refill(s) Trazodone 100 mg = 1 Active [place] Hydrochloride tab, PO, 2019 Medical 100 MG Oral Bedtime, # 30 Center Tablet tab, 0 Refill(s) pantoprazole 20 20 mg = 1 tab, Active 08/03/ [facility] [place] mg oral enteric PO, Daily, # 2019 Med ical coated tablet 30 tab, 1 Center Refill(s) Sodium Chloride 250 mL, Rate: No Longer [facility] 0.9% (titrate) To prime line Active 2019 Med ical 250 mL and flush Center remaining blood products., Dosing Weight 70.1, kg, Route: IV, Total Volume: 250, Start Date: 08/03/19 6:00:00 CDT, Duration: 1 day, Stop date: 08/04/19 5:59:00 CDT, Replace Every: 24 hr, 0 Allergies, Adverse Reactions, Alerts Substance Category Reaction Severity Reaction Status Date Comments S ource type Reported Seroquel Assertion Drug Active [facility] Wellbutrin Assertion Drug Active [facility] BuSpar Assertion Drug Active [facility] as allergy [facility] Cymbalta Assertion Drug Active [facility] NSAIDs Assertion Drug Active Reinalod as allergy Medical Center Immunizations Immunization Date Site Status Last Updated Comments Sour ce Given tetanus-diphther Left completed [facility] [place] ia toxoids 1 [facility], ANNE MARIE Johnston pneumococcal Left completed Dominic Flavia s 23-valent 1 [facility] vaccine Center, ANNE MARIE [place] Results Order Name Results Value Reference Date Interpretation Comments Teresita rce Range CHEM PANEL Glucose Lvl 84 70 - 99 08/03 [facility] CHEM PANEL BUN 30 7 - 22 08/03 [facility] CHEM PANEL Creatinine 1.34 0.50 - 08/03 [place] Lvl 1.40 [facility] CHEM PANEL Sodium Lvl 138 135 - 145 08/03 [facility] CHEM PANEL Potassium Lvl 4.1 3.5 - 5.1 08/03 [place] [facility] CHEM PANEL Chloride Lvl 103 95 - 109 08/03 [facility] CHEM PANEL CO2 28 24 - 32 08/03 [facility] CHEM PANEL Calcium Lvl 8.9 8.5 - 10.5 08/03 [facility] CHEM PANEL AGAP 11.1 10.0 - 08/03 [place] 20.0 [facility] CHEM PANEL B/C Ratio 22 6 - 25 08/03 [facility] CHEM PANEL eGFR 45 08/03 [facility] Comment: The Medical eGFR is Center calculated using the CKD-EPI formula. In most young, healthy individuals the eGFR will be >90 mL/min/1.73m2 . The eGFR declines with age. An eGFR of 60-89 may be normal in some populations, particularly the elderly, for whom the CKD-EPI formula has not been extensively validated. Use of the eGFR is not recommended in the following populations:< br/>
Haritha viduals with unstable creatinine concentration s, including patients and those with serious co-morbid conditions.<b r/>
Patie nts with extremes in muscle mass or diet.

The data above are obtained from the National Kidney Disease Education Program (NKDEP) which additionally recommends that when the eGFR is used in patients with extremes of body mass index for purposes of drug dosing, the eGFR should be multiplied by the estimated BMI. CHEM PANEL ALT 20 0 - 65 08/03 [facility] CHEM PANEL Albumin Lvl 3.6 3.5 - 5.0 08/03 [facility] CHEM PANEL Alk Phos 83 39 - 136 08/03 [facility] CHEM PANEL Bili Total 0.6 0.2 - 1.3 08/03 [facility] CHEM PANEL Total Protein 6.3 6.4 - 8.4 08/03 [place] [facility] CHEM PANEL AST 20 0 - 37 08/03 [facility] CHEM PANEL Globulin 2.7 2.7 - 4.2 08/03 [facility] CHEM PANEL A/G Ratio 1.3 0.7 - 1.6 08/03 [facility] BLOOD BANK ABO/Rh O NEG 08/03 [facility] RESULTS [facility] BLOOD BANK Antibody Scrn Negative 08/03 [facility] as RESULTS (08/03/19 10:26 AM) [facility] CHEM PANEL Glucose Lvl 84 70 - 99 08/03 [facility] CHEM PANEL BUN 30 7 - 22 08/03 [facility] CHEM PANEL Creatinine 1.33 0.50 - 08/03 [facility] Lvl 1.40 [facility] CHEM PANEL Sodium Lvl 135 135 - 145 08/03 [facility] CHEM PANEL Potassium Lvl 5.0 3.5 - 5.1 08/03 Result Comment: [facility] Center Slightly Hemolyzed.

Specim en Icteric. CHEM PANEL Chloride Lvl 102 95 - 109 08/03 [facility] CHEM PANEL CO2 26 24 - 32 08/03 [facility] CHEM PANEL Calcium Lvl 8.9 8.5 - 10.5 08/03 [facility] as [facility] CHEM PANEL AGAP 12.0 10.0 - 08/03 [place] 20.0 [facility] CHEM PANEL B/C Ratio 23 6 - 25 08/03 [facility] CHEM PANEL eGFR 45 08/03 Result Comment: The Medical eGFR is Center calculated using the CKD-EPI formula. In most young, healthy individuals the eGFR will be >90 mL/min/1.73m2 . The eGFR declines with age. An eGFR of 60-89 may be normal in some populations, particularly the elderly, for whom the CKD-EPI formula has not been extensively validated. Use of the eGFR is not recommended in the following populations:< br/>
Haritha viduals with unstable creatinine concentration s, including patients and those with serious co-morbid conditions.<b r/>
Patie nts with extremes in muscle mass or diet.

The data above are obtained from the National Kidney Disease Education Program (NKDEP) which additionally recommends that when the eGFR is used in patients with extremes of body mass index for purposes of drug dosing, the eGFR should be multiplied by the estimated BMI. CHEM PANEL ALT 23 0 - 65 08/03 2018 [facility] CHEM PANEL Albumin Lvl 4.0 3.5 - 5.0 08/[place] [facility] CHEM PANEL Alk Phos 92 39 - 136 08/03 2018 [facility] CHEM PANEL Bili Total 0.7 0.2 - 1.3 08/03 [facility]2018 [facility] CHEM PANEL Total Protein 6.8 6.4 - 8.4 08/03 [place] [facility] CHEM PANEL AST 30 0 - 37 08/03 2018 [facility] CHEM PANEL Globulin 2.8 2.7 - 4.2 08/03 [facility]2018 [facility] CHEM PANEL A/G Ratio 1.4 0.7 - 1.6 08/03 2018 [facility] HEMATOLOGY WBC 4.0 3.7 - 10.4 08/03 2018 [facility] HEMATOLOGY RBC 3.67 4.20 - 08/03 [place] 5.40 [facility] HEMATOLOGY Hgb 12.1 12.0 - 08/03 [facility] 16.0 [facility] HEMATOLOGY Hct 35.1 36.0 - 08/03 [place] 48.0 [facility] HEMATOLOGY MCV 95.5 80.0 - 08/03 [facility] 98.0 [facility] HEMATOLOGY MCH 33.1 27.0 - 08/03 [place] 31.0 [facility] HEMATOLOGY MCHC 34.6 32.0 - 08/03 [place] 36.0 [facility] HEMATOLOGY RDW 12.5 11.5 - 08/03 [facility] 14.5 [facility] HEMATOLOGY Platelet 179 133 - 450 08/03 [facility]2018 [facility] HEMATOLOGY MPV 7.4 7.4 - 10.4 08/03 [facility]2018 [facility] HEMATOLOGY PT 12.6 12.0 - 08/03 [facility] 14.7 [facility] HEMATOLOGY INR 0.96 0.85 - 08/03 [place] 1.17 [facility] HEMATOLOGY PTT 32.8 22.9 - 08/03 [facility] [place] 35.8 /2018 [facility] HEMATOLOGY Segs 39.7 45.0 - 08/03 [facility] 75.0 [facility] HEMATOLOGY Lymphocytes 44.0 20.0 - 08/03 [facility] 40.0 [facility] HEMATOLOGY Monocytes 8.8 2.0 - 12.0 08/[address] HEMATOLOGY Eosinophils 6.4 0.0 - 4.0 08/03 [facility]2018 [facility] HEMATOLOGY Basophils 1.1 0.0 - 1.0 08/[address] HEMATOLOGY Neutrophils # 1.6 1.5 - 8.1 08/03 [facility]2018 [facility] HEMATOLOGY Lymphocytes # 1.8 1.0 - 5.5 08/03 [facility]2018 [facility] HEMATOLOGY Monocytes # 0.4 0.0 - 0.8 08/03 [facility]2018 [facility] HEMATOLOGY Eosinophils # 0.3 0.0 - 0.5 08/[address] SPECIAL Hgb A1C 5.1 <=5.6 % 08/03 [facility] Pathology Reports No Data Provided for This Section Diagnostic Reports Report Value Date Source Chest CTA Patient Name: JULIAN MARTEL 06/20/2019 ANNE MARIE Johnston : 1965; Age: 53 years y/o Female MR: [id number] Study: Chest CTA 06/20/2019 14:16 CDT Clinical Indication: - I71.01 Dissection of t horacic aorta; Comparison: None TECHNIQUE: Sequential trans- axial images were obtained thru the chest and upper abdomen after intravenous and demonstration 100 mL Omnipaque 2-D MIPS reconstructions submitted. CT imaging performed at this location utilizes radiation dose optimization techniques which include one or more of the following: -Automated exposure control -Adjustment of the mA and/or kV according to pat ient size -Use of iterative reconstruction technique CT Radiation Dose DLP 363.42 mGy-cm FINDINGS: VASCULAR STRUCTURES: No evid ence for pulmonary embolism. There is an aortic stent graft from the mid aortic arch to the mid to distal descending thoracic aorta. The stent graft does have extension into the proximal left subclavian artery. There is focal area of stenosis to the proximal descending thoracic aorta. The opacified lumen in the region of narrowing measures 9 mm in greatest anterior to poste rior dimension. The remainde r of the thoracic aorta is unremarkable. No aneurysmal dilatation of the thoracic aorta. There is a common origin for the right brachiocephalic artery and left common carotid artery. No hemodynamically significant stenosis identified to the great vessels. AIRWAY: Tracheobronchial tree is unremarkable. LUNG PARENCHYMA AND PLEURA: Slight atelectasis in the inferior left lingula. Slight atelectasis in the posterior inferior right lower lobe. Tiny benign calcified nodule in the right lung apex. No other parenchymal lung abnormality identified bilaterally. No significant pleural effusion bilaterally. No pneumothorax bilaterally. MEDIASTINUM: No evidence for mediastinal, hilar or axillary adenopathy bilaterally. HEART: No pericardial effusion. OSSEOUS STRUCTURES: Mild degenerative changes ab out the thoracic spine. VISUALIZED UPPER ABDOMEN: [place] luh is status post cholecystectomy. Mild dilatation of the common bile duct may just be due to postcholecystectomy changes. Views of the upper abdomen are otherwise unremarkable. IMPRESSION: 1. Aortic stent graft in place as above. 2. Focal area of stenosis of the proximal descending thoracic aorta. Remainder of the thoracic aorta is unremarkable. 3. No evidence for pulmonary embolism. 4. Status post cholecystectomy. 5. Mild dilatation of the co mmon bile duct may just be due to postcholecystectomy changes. SL: [id number] Consultation Notes No Data Provided for This Section Discharge Summaries No Data Provided for This Section History and Physicals No Data Provided for This Section Vital Signs Vital Sign Value Date Comments Source Respitory Rate 16 08/04/2019 [facility] Systolic (mm Hg) 131 08/04/2019 [facility] Diastolic (mm Hg) 65 08/04/2019 [facility] Respitory Rate 12 08/04/2019 [facility] Systolic (mm Hg) 122 08/04/2019 [facility] Diastolic (mm Hg) 58 08/04/2019 [facility] Respitory Rate 8 08/04/2019 [facility] Systolic (mm Hg) 93 08/04/2019 [facility] Diastolic (mm Hg) 46 08/04/2019 [facility] Height 167.64 cm 08/03/2019 [facility] Weight 68.001 08/03/2019 [facility] BMI Calculated 24.2 08/03/2019 [facility] Height 170.18 cm 08/03/2019 [facility] Weight 69.148 08/03/2019 [facility] BMI Calculated 23.88 08/03/2019 [facility] Encounters Location Location Encounter Encounter Reason Attending ADM DC Stat us Source Details Type Number For Provider Date Date Visit [facility] Outpt Diag [id number] Chik-Albert 06/20 06/21 [id number] 08/03 08/04 [facility] [place] /2018 [facility] Procedures Procedure Code Date Perfomer Comments Source Knee replacement [id number] 11/09/2014 [facility] Partial shoulder [id number] 11/09/2012 RIGHT [facility] replacement<sup>1</guzman Med ical p> Center Arthrectomy of [id number] 07/10/2011 RIGHT [facility] ankle<sup>2</sup> [facility] Repair of ruptured [id number] 11/09/2009 [place] as 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, vessels with graft [facility] [place] Arthroscopy of knee [id number] 11/09/2003 [facility], [facility] [place] Bilateral inguinal [id number] 11/09/1997 [facility] as hernia repair [facility], [place] [place] Destruction of brain [id number] 11/09/1996 [facility] tumor [facility], [facility] [place] Cholecystectomy [id number] 11/09/1994 [facility], [place] Arteriectomy of aorta [id number] 11/09/1993 [facility], [facility] [place] Arthroplasty of joint [id number] 11/09/1993 LEFT [place] of the Medical hand<sup>3</sup> Center Arthrectomy of [id number] RIGHT [facility] ankle<sup>1</sup> [place] Arthroplasty of joint [id number] LEFT [facility] of the [place] hand<sup>2</sup> Caesarean section [id number] [facility] [place] Partial shoulder [id number] RIGHT [facility] replacement<sup>3</guzman [place] p> Caesarean [id number] 1994 [facility] section<sup>4</sup> Medic [facility] Assessment and Plan Assessment and Plan Date Source Extracted from:Title: Clinical Document 08/04/2019 [facility] Author: AllisonGuerita Ian Date: 08/03/19 Reason For Visit evaluation for stenosis of aorta History of Present Illness Julian Martel is a 54 year old patient w ith 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 The patient reports episode of right chest pa in, anxiety and depression after the los s of her son earlier this year. She states she was hospitalized in March 2019 for NSTEMI. She reports occasionally bilateral leg swelling. The patient reports she i s undergoing smoking cessation with Delaney tix and is smoking 1/4 pack/day or less. Review of Systems Constitutional: fatigue, butno feverandno chills. Cardiovascular: no chest pain,no palpita tionsandno intermittent leg claudication. Respiratory: shortness of breath during exertion, butno shor tness of breath. Gastrointestinal: no abdominal pain,no vomitingandno nausea. Genitourinary: no dysuria. Musculoskeletal: no limb painandno limb swelling. Integumentary: no skin wound. Neurological: limb weakness, butno dizzi ness,no fainting,no tinglingandno headache. Psychiatric: depression, butno anxiety. Active Problems 1. Chest pain (786.50) (R07.9) 2. Closed fracture of talus (825.21) (S92.109A) 3. Fracture of ankle (824.8) (S82.899A) 4. Normal routine physical examination (V70.0) (Z00.00) Allergies - Allergies list reconciled and reviewed. 1. Cymbalta CPEP 2. SEROquel TABS Past Medical History 1. History of Depressive disorder (311) (F32.9) 2. History of essential hypertension (V12.59) (Z86.79) 3. History of headache (V13.89) (Z87.898) Surgical History 1. History of Aortic Aneurysm Repair 2. History of Brain Surgery 3. History of Section 4. History of Cholecystectomy 5. History of Hernia Repair 6. History of Knee Surgery Social History (305.1) Current Smoker Never Drank Alcohol Vitals UTP Adult Vital Signs Recorded: [id number] 04:56PM Height: 5 ft 7 in Weight: 152 lb 8 oz BMI Calculated: 23.89 BSA Calculated: 1.8 Blood Pressure: 114 / 68 Temperature: 96.4 F Heart Rate: 61 O2 Saturation: 96 Current Meds medication list reconciled and reviewed 1. Carvedilol TABS; Therapy: (Recorded:[id number]) to Recorded 2. clonazePAM TABS; Therapy: (Recorded:[id number]) to Recorded 3. Furosemide 20 MG Oral Tablet; Therapy: (Recorded:[id number]) to Recorded 4. hydrALAZINE HCl TABS; Therapy: (Recorded:39Pvc2738) to Recorded 5. Hydrocodone-Acetaminophen 10-650 MG TABS; Therapy: (Recorded:[id number]) to Recorded 6. Isosorbide Mononitrate TABS; Therapy: (Recorded:56Bmp1228) to Recorded 7. Klor-Con 10 10 MEQ Oral Tablet Extended Release; Therapy: (Recorded:[id number]) to Recorded 8. Lisinopril 10 MG Oral Tablet; Therapy: (Recorded:[id number]) to Recorded 9. Methocarbamol 750 MG Oral Tablet; Therapy: (Recorded:18Vhz0998) to Recorded 10. Naproxen 500 MG Oral Tablet; Therapy: (Recorded:[id number]) to Recorded 11. Omeprazole 40 MG Oral Capsule Delayed Release; Therapy: (Recorded:[id number]) to Recorded 12. rOPINIRole HCl - 2 MG Oral Tablet; Therapy: (Recorded:44Rxj3183) to Recorded 13. Topiramate 200 MG Oral Tablet; Therapy: (Recorded:28Bmw4521) to Recorded 14. traZODone HCl TABS; Therapy: (Recorded:57Yle2623) to Recorded Physical Exam General: alert and orientedandin no acute distress. Neck: the neck was supple,the appearance of the neck was normalandno neck mass was observed. Pulmonary: normal respiratory rhythm and effort. Cardiac: heart rate and rhythm were normal. Vascular: normal femoral pulses. Pulses: Right brachial pulse: positive. Left brachial pulse: positive. Lymphatics: no lymphadenopathy. Abdomen: soft,non-tenderandno abdominal mass palpated. Neurologic: the sensory exam was normal to light touch and pinprickandthe motor exam was normal. Musculoskeletal: muscle strength and tone were normal. Skin: no skin lesions. Psychiatric: the affect was normal. Assessment Patient is a 54-year-old woman who had T EVAR for T AI on 11/27/2010. 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 She has palpable femoral pulses. We scheduled her for aortic IVUS, aortogram, and possible balloon aortoplast y and stenting. Risk and Benefits Risks, benefits, and alternate therapies including non-operative management were discussed with the patient. Patient verbalizes understanding and wishes to proceed. The patient understands that there is a potential for infection, blood clots in veins and lungs, hemorrhage, allergic reaction, and even . Other risks include: paralysis,renal rose lure,recurrence of symptomsandre-opening of the chest. Plan of Care No Data Provided for This Section Social History Social History Date Source Social History TypeResponse 08/03/2019 [facility] Alcohol Past, Type Beer, Wine. Employment/School Status: Unemployed. Exercise 1 Substance Abuse Use: None. Smoking Status Current every day smoker; Type: Cigarett es; Previous treatment: None; Exposure to Tobacco Smoke None; Cigarette Smoking Last 365 Days Yes; Reg Smoking Cessation Counseling No; Tobacco use per day: 4; Number of years: 25; 2 entered on: 08/03/19 [id number] Social History TypeResponse 04/01/2019 [facility] Alcohol Past, Type Beer, Wine. Frequency: 1-2 times per month. Substance Abuse Use: None. Smoking Status Current every day smoker; Type: Cigarett es; Exposure to Tobacco Smoke None; Cigarette Smoking Last 365 Days Yes; Reg Smoking Cessation Counseling No entered on: 05/31/19 Family History No Data Provided for This Section Advance Directives No Data Provided for This Section Functional Status No Data Provided for This Section
--- OUTSIDE RECORDS SUMMARY | 2020-03-18 14:06 | XMS REPORT ---
:1965 Author Organization [facility] t Address [address] [place] [address] Dr. Phillips [address] [place] [id number] Care Team Providers Name Role Phone Unavailable Unavailable Unavailable Problems This patient has no known problems. Allergies, Adverse Reactions, Alerts This patient has no known allergies or adverse reactions. Medications This patient has no known medications. Encounters Start End Encounter Admission Attending Care Care Encounter Date/Time Date/Time Type Type Clinicians Facility Department ID 2019-08-03 2019-08-03 [facility] [id number] 10:08:00 10:08:00
--- OUTSIDE RECORDS SUMMARY | 2020-03-18 14:06 | XMS REPORT | Summary of Care ---
:1965 Author Organization [facility] Address [address] [place], [place] [address]- Encounter [facility]_talat(FIN) [id number] Date(s): 08/03/19 - 08/03/19 [facility] [address] [place] [id number]- [place] Discharge Disposition: Home or Self Care Attending Physician: César Pierre MD Referring Physician: César Pierre MD Vital Signs Most recent to oldest 1 2 3 [Reference Range]: Height 167.64 cm 170.18 cm (08/03/19 11:02 AM) (08/02/19 9:00 PM) Blood Pressure [90-140/60-90 131/65 mmHg 122/58 mmHg 93/ 46 mmHg mmHg] (08/03/19 7:45 PM) (08/03/19 7:30 PM) (08/03/19 7:1 5 PM) Respiratory Rate [14-20 BRMIN] 16 BRMIN 12 BRMIN 8 BRMIN (08/03/19 7:45 PM) *LOW* *LOW* (08/03/19 7:30 PM) (08/03/19 7:15 PM) Weight 68.001 kg 69.148 kg (08/03/19 11:02 AM) (08/02/19 9:00 PM) Body Mass Index 24.2 m2 23.88 m2 (08/03/19 11:02 AM) (08/02/19 9:00 PM) Problem List Condition Effective Dates Status Health Status Informant Anxiety(Confirmed) Active Anxiety(Confirmed) Resolved Bloody stool(Confirmed) < 08/08/11 Resolved Degenerative disc disease, Resolved lumbar(Confirmed) Depression(Confirmed) Resolved Hypertension(Confirmed) Active Hypertension(Confirmed) Resolved Hypothyroidism(Confirmed) Resolved Impaired mobility(Confirmed) Active Impaired skin integrity(Confirmed) Active Kidney disease(Confirmed) Resolved Pain(Confirmed) Active RA (rheumatoid arthritis)(Confirmed) Resolved Allergies, Adverse Reactions, Alerts Substance Reaction Severity Status Seroquel Active Wellbutrin Active BuSpar Active Cymbalta Active NSAIDs Active Medications 1/2 NS 1,000 mL 1,000 mL, Rate: 100 ml/hr, Infuse over: 10 hr, Route: IV, Dosing Weight 68.001 kg, Total Volume: 1,000, Start date: 08/03/19 14:31:00 CDT, Duration: 30 day, Stop date: 09/02/19 14:30:00 CDT, 1.79, m2, 0 Start Date: 08/03/19 Stop Date: 08/04/19 Status: Discontinuedbiotin 1000 mcg oral tablet 1,000 microgram = 1 tab, PO, Daily, # 30 tab, 0 Refill(s) Start Date: 08/03/19 Status: OrderedceFAZolin (ANES) Route: IV, Drug form: INJ, ONCE, Stop date: 08/03/19 16:35:00 CDT Start Date: 08/03/19 Stop Date: 08/03/19 Status: CompletedclonazePAM 1 mg oral tablet 1 mg = 1 tab, PO, PRN, PRN Anxiety, # 30 tab, 0 Refill(s) Start Date: 08/03/19 Status: Orderedesmolol (ANES) Route: IV, Drug form: INJ, ONCE, Stop date: 08/03/19 17:36:00 CDT Start Date: 08/03/19 Stop Date: 08/03/19 Status: CompletedfentaNYL (ANES) Route: IV, Drug form: INJ, ONCE, Stop date: 08/03/19 16:51:00 CDT Start Date: 08/03/19 Stop Date: 08/03/19 Status: Completedfolic acid 0.4 mg oral tablet 0.4 mg = 1 tab, PO, Daily, # 100 tab, 0 Refill(s) Start Date: 08/03/19 Status: Orderedglycopyrrolate (ANES) Route: IV, Drug form: INJ, ONCE, Stop date: 08/03/19 16:45:00 CDT Start Date: 08/03/19 Stop Date: 08/03/19 Status: Completedheparin (ANES) Route: IV, Drug form: INJ, ONCE, Stop date: 08/03/19 17:16:00 CDT Start Date: 08/03/19 Stop Date: 08/03/19 Status: CompletedIsolyte S PH 7.4 (ANES) 1000 mL Route: IV, Total Volume: 1,000, Start date: 08/03/19 15:30:00 CDT, Stop date: 08/03/19 16:30:00 CDT Start Date: 08/03/19 Stop Date: 08/03/19 Status: Completedlidocaine (ANES) Route: IV, Drug form: INJ, ONCE, Stop date: 08/03/19 16:51:00 CDT Start Date: 08/03/19 Stop Date: 08/03/19 Status: Completedmagnesium sulfate 400 mg, PO, ONCE, 0 Refill(s) Start Date: 08/03/19 Status: Orderedmidazolam (ANES) Route: IV, Drug form: SOLN, ONCE, Stop date: 08/03/19 16:45:00 CDT Start Date: 08/03/19 Stop Date: 08/03/19 Status: Completedneostigmine (ANES) Route: IV, Drug form: INJ, ONCE, Stop date: 08/03/19 17:55:00 CDT Start Date: 08/03/19 Stop Date: 08/03/19 Status: CompletedNon-Formulary Home Medication 1 cap, PO, Daily, Refill(s) 0 Start Date: 08/03/19 Status: Orderednorepinephrine (ANES) Route: IV, Drug form: INJ, ONCE, Stop date: 08/03/19 16:40:00 CDT Start Date: 08/03/19 Stop Date: 08/03/19 Status: Completedondansetron (ANES) Route: IV, Drug form: INJ, ONCE, Stop date: 08/03/19 17:55:00 CDT Start Date: 08/03/19 Stop Date: 08/03/19 Status: Completedpantoprazole 20 mg oral enteric coated tablet 20 mg = 1 tab, PO, Daily, # 30 tab, 1 Refill(s) Start Date: 08/03/19 Status: OrderedProbiotic Formula oral capsule 1 cap, PO, Daily, 0 Refill(s) Start Date: 08/03/19 Status: Orderedpromethazine 25 mg oral tablet 25 mg = 1 tab, PO, Q12H, PRN for motion sickness, # 60 tab, 0 Refill(s) Start Date: 08/03/19 Stop Date: 08/13/19 Status: Orderedpropofol (ANES) Route: IV, Drug form: INJ, ONCE, Stop date: 08/03/19 16:51:00 CDT Start Date: 08/03/19 Stop Date: 08/03/19 Status: Completedprotamine (ANES) Route: IV, Drug form: INJ, ONCE, Stop date: 08/03/19 17:41:00 CDT Start Date: 08/03/19 Stop Date: 08/03/19 Status: Completedrocuronium (ANES) Route: IV, Drug form: INJ, ONCE, Stop date: 08/03/19 16:51:00 CDT Start Date: 08/03/19 Stop Date: 08/03/19 Status: CompletedrOPINIRole 2 mg oral tablet 2 mg = 1 tab, PO, Bedtime, # 90 tab, 1 Refill(s) Start Date: 08/03/19 Stop Date: 11/01/19 Status: OrderedSodium Chloride 0.9% (titrate) 250 mL 250 mL, Rate: To prime line and flush remaining blood products., Dosing Weight 70.1, kg, Route: IV, Total Volume: 250, Start Date: 08/03/19 6:00:00 CDT, Duration: 1 day, Stop date: 08/04/19 5:59:00 CDT, Replace Every: 24 hr, 0 Start Date: 08/03/19 Stop Date: 08/04/19 Status: Discontinuedtrazodone 100 mg oral tablet 100 mg = 1 tab, PO, Bedtime, # 30 tab, 0 Refill(s) Start Date: 08/03/19 Stop Date: 09/02/19 Status: Orderedvasopressin (ANES) + sodium chloride (ANES) 19 mL Route: IV, Drug form: INJ, ONCE, Stop date: 08/03/19 17:16:00 CDT Start Date: 08/03/19 Stop Date: 08/03/19 Status: CompletedVersed 2 mg, 2 mL, Route: IVP, Drug form: INJ, ONCE, Dosing Weight 68.001, kg, Start date: 08/03/19 13:08:00 CDT, Stop date: 08/03/19 13:08:00 CDT, 0 Notes: (Same as: Versed) MEDICATION WASTE Product Size: 5 mgProduct Wasted: ___ mg Start Date: 08/03/19 Stop Date: 08/03/19 Status: DeletedVersed 2 mg, 2 mL, Route: IVP, Drug form: SOLN, ONCE, Dosing Weight 68.001, kg, Start date: 08/03/19 13:15:00 CDT, Stop date: 08/03/19 13:15:00 CDT, 0 Notes: Same as: Versed ( Preservative Free) MEDICATION WASTE Product Size: 5 mgProduct Wasted: ___ mg Start Date: 08/03/19 Stop Date: 08/03/19 Status: CompletedVitamin B-12 5000 mcg sublingual tablet 5,000 microgram = 1 tab, SL, Daily, 0 Refill(s) Start Date: 08/03/19 Status: OrderedZyrTEC 5 mg, Daily, 0 Refill(s) Start Date: 08/03/19 Status: Ordered Results Most recent to oldest [Reference Range]: 1 2 Neutrophils # [1.5-8.1 K/CMM] 1.6 K/CMM (08/03/19 10:26 AM) Lymphocytes # [1.0-5.5 K/CMM] 1.8 K/CMM (08/03/19 10:26 AM) Monocytes # [0.0-0.8 K/CMM] 0.4 K/CMM (08/03/19 10:26 AM) Eosinophils # [0.0-0.5 K/CMM] 0.3 K/CMM (08/03/19 10:26 AM) eGFR 45 mL/min/1.73m2 1 45 mL/min/1.73m2 2 *NA* *NA* (08/03/19 12:19 PM) (08/03/19 10:26 AM) ABO/Rh O NEG *Unknown* (08/03/19 10:26 AM) A/G Ratio [0.7-1.6] 1.3 1.4 (08/03/19:19 PM) (08/03/19 10:26 AM) Antibody Scrn Negative (08/03/19 10: AM) Albumin Lvl [3.5-5.0 g/dL] 3.6 g/dL 4.0 g/dL (08/03/19: PM) (08/03/19 10:26 AM) Alk Phos [39-136 unit/L] 83 unit/L 92 unit/L (08/03/19 12:19 PM) (08/03/19 10:26 AM) ALT [0-65 unit/L] 20 unit/L 23 unit/L (08/03/19: PM) (08/03/19 10:26 AM) AGAP [10.0-20.0 mEq/L] 11.1 mEq/L 12.0 mEq/L (08/03/19: PM) (08/03/19 10:26 AM) AST [0-37 unit/L] 20 unit/L 30 unit/L (08/03/19: PM) (08/03/19 10:26 AM) B/C Ratio [6-25] 22 23 (08/03/19:19 PM) (08/03/19 10:26 AM) Basophils [0.0-1.0 %] 1.1 % *HI* (08/03/19 10:26 AM) BUN [7-22 mg/dL] 30 mg/dL 30 mg/dL *HI* *HI* (08/03/19 12:19 PM) (08/03/19 10:26 AM) Calcium Lvl [8.5-10.5 mg/dL] 8.9 mg/dL 8.9 mg/dL (08/03/19:19 PM) (08/03/19 10:26 AM) Chloride Lvl [95-109 mEq/L] 103 mEq/L 102 mEq/L (08/03/19:19 PM) (08/03/19 10:26 AM) CO2 [24-32 mEq/L] 28 mEq/L 26 mEq/L (08/03/19 12:19 PM) (08/03/19: AM) Creatinine Lvl [0.50-1.40 mg/dL] 1.34 mg/dL 1.33 mg /dL (08/03/19 12:19 PM) (08/03/19: AM) Eosinophils [0.0-4.0 %] 6.4 % *HI* (08/03/19 AM) Globulin [2.7-4.2 g/dL] 2.7 g/dL 2.8 g/dL (08/03/19 12:19 PM) (08/03/19: AM) Glucose Lvl [70-99 mg/dL] 84 mg/dL 84 mg/dL (08/03/19 12:19 PM) (08/03/19 AM) Hct [36.0-48.0 %] 35.1 % *LOW* (08/03/19 AM) Hgb [12.0-16.0 g/dL] 12.1 g/dL (08/03/19: AM) Hgb A1C [<=5.6 %] 5.1 % (08/03/19: AM) INR [0.85-1.17] 0.96 (08/03/19: AM) Potassium Lvl [3.5-5.1 mEq/L] 4.1 mEq/L 5.0 mEq/L 3 (08/03/19 12:19 PM) (08/03/19 AM) Lymphocytes [20.0-40.0 %] 44.0 % *HI* (08/03/19 AM) MCH [27.0-31.0 pg] 33.1 pg *HI* (08/03/19: AM) MCHC [32.0-36.0 g/dL] 34.6 g/dL (08/03/19: AM) MCV [80.0-98.0 fL] 95.5 fL (08/03/19: AM) Monocytes [2.0-12.0 %] 8.8 % (08/03/19 AM) MPV [7.4-10.4 fL] 7.4 fL (08/03/19 10:26 AM) Sodium Lvl [135-145 mEq/L] 138 mEq/L 135 mEq/L (08/03/19 12:19 PM) (08/03/19 10:26 AM) Platelet [133-450 K/CMM] 179 K/CMM (08/03/19 10:26 AM) Segs [45.0-75.0 %] 39.7 % *LOW* (08/03/19 10: AM) Total Protein [6.4-8.4 g/dL] 6.3 g/dL 6.8 g/dL *LOW* (08/03/19 10:26 AM) (08/03/19 12:19 PM) PT [12.0-14.7 seconds] 12.6 seconds (08/03/19 10: AM) PTT [22.9-35.8 seconds] 32.8 seconds (08/03/19: AM) RBC [4.20-5.40 M/CMM] 3.67 M/CMM *LOW* (08/03/19 10:26 AM) RDW [11.5-14.5 %] 12.5 % (08/03/19 10: AM) Bili Total [0.2-1.3 mg/dL] 0.6 mg/dL 0.7 mg/dL (08/03/19 12:19 PM) (08/03/19 10:26 AM) WBC [3.7-10.4 K/CMM] 4.0 K/CMM (08/03/19 10:26 AM) 1Result Comment: The eGFR is calculated using the CKD-EPI formula. In most young, healthy individualsthe eGFR will be >90 mL/min/1.73m2. The eGFR declines with age. An eGFR of 60-89 may be normal insome populations, particularly the elderly, for whom the CKD-EPI formula has not been extensively validated. Use of the eGFR is not recommended in the following populations: Individuals with unstable creatinine concentrations, including patients and those with serious co-morbid conditions. Patients with extremes in muscle mass or diet. The data above are obtained from the National Kidney Disease Education Program (NKDEP) which additionally recommends that when the eGFR is used in patients with extremes of body mass index for purposesof drug dosing, the eGFR should be multiplied by the estimated BMI.2Result Comment: The eGFR is calculated using the CKD-EPI formula. In most young, healthy individualsthe eGFR will be >90 mL/min/1.73m2. The eGFR declines with age. An eGFR of 60-89 may be normal insome populations, particularly the elderly, for whom the CKD-EPI formula has not been extensively validated. Use of the eGFR is not recommended in the following populations: Individuals with unstable creatinine concentrations, including patients and those with serious co-morbid conditions. Patients with extremes in muscle mass or diet. The data above are obtained from the National Kidney Disease Education Program (NKDEP) which additionally recommends that when the eGFR is used in patients with extremes of body mass index for purposesof drug dosing, the eGFR should be multiplied by the estimated BMI.3Result Comment: Specimen Slightly Hemolyzed. Specimen Icteric. 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 Employment/School Status: Unemployed. Exercise 1 Substance Abuse Use: None. Smoking Status Current every day smoker; Ty pe: Cigarettes; Previous treatment: None; Exposure to Tobacco Smoke None; Cigarette Smoking Last 365 Days Yes; Reg Smoking Cessation Counseling No; Tobacco use per day: 4; Number of years: 25; 2 entered on: 08/03/19 [id number] Assessment and Plan Extracted from: Title: Clinical Document Author: Guerita Cooper Date: 08/03 Reason For Visit evaluation for stenosis of [...] less. Review of Systems Constitutional: fatigue, butno fever andno chills. Cardiovascular: no chest pain,no palpi tationsandno intermittent leg claudication. Respiratory: shortness of breath during exertion, butno shortness of breath. Gastrointestinal: no abdominal pain,no vomitingandno nausea. Genitourinary: no dysuria. Musculoskeletal: no limb painandno l imb swelling. Integumentary: no skin wound. Neurological: limb weakness, butno diz ziness,no fainting,no tinglingandno headache. Psychiatric: depression, butno anxiety . Active Problems 1. Chest pain (786.50) (R07.9) 2. Closed fracture of talus (825.21) (S 92.109A) 3. Fracture of ankle (824.8) (S82.899A) 4. Normal routine physical examination (V70.0) (Z00.00) Allergies - Allergies list reconciled an d reviewed. 1. Cymbalta CPEP 2. SEROquel TABS Past Medical History 1. History of Depressive disorder (311) (F32.9) 2. History of essential hypertension (V 12.59) (Z86.79) 3. History of headache (V13.89) (Z87.89 8) Surgical History 1. History of Aortic Aneurysm Repair 2. History of Brain Surgery 3. History of Section 4. History of Cholecystectomy 5. History of Hernia Repair 6. History of Knee Surgery Social History (305.1) Current Smoker Never Drank Alcohol Vitals UTP Adult Vital Signs Recorded: 12Jul2019 04:56PM Height: 5 ft 7 in Weight: 152 lb 8 oz BMI Calculated: 23.89 BSA Calculated: 1.8 Blood Pressure: 114 / 68 Temperature: 96.4 F Heart Rate: 61 O2 Saturation: 96 Current Meds medication list reconciled and reviewed 1. Carvedilol TABS; Therapy: (Recorded:[id number]) to Record ed 2. clonazePAM TABS; Therapy: (Recorded:[id number]) to Record ed 3. Furosemide 20 MG Oral Tablet; Therapy: (Recorded:[id number]) to Record ed 4. hydrALAZINE HCl TABS; Therapy: (Recorded:[id number]) to Record ed 5. Hydrocodone-Acetaminophen 10-650 MG TABS; Therapy: (Recorded:[id number]) to Record ed 6. Isosorbide Mononitrate TABS; Therapy: (Recorded:[id number]) to Record ed 7. Klor-Con 10 10 MEQ Oral Tablet Exten ded Release; Therapy: (Recorded:[id number]) to Record ed 8. Lisinopril 10 MG Oral Tablet; Therapy: (Recorded:[id number]) to Record ed 9. Methocarbamol 750 MG Oral Tablet; Therapy: (Recorded:[id number]) to Record ed 10. Naproxen 500 MG Oral Tablet; Therapy: (Recorded:[id number]) to Recor ded 11. Omeprazole 40 MG Oral Capsule Delay ed Release; Therapy: (Recorded:[id number]) to Recor ded 12. rOPINIRole HCl - 2 MG Oral Tablet; Therapy: (Recorded:[id number]) to Recor ded 13. Topiramate 200 MG Oral Tablet; Therapy: (Recorded:[id number]) to Recor ded 14. traZODone HCl TABS; Therapy: (Recorded:[id number]) to Recor ded Physical Exam General: alert and orientedandin no acute distress. Neck: the neck was supple,the appearan ce of the neck was normalandno neck mass was observed. Pulmonary: normal respiratory rhythm and effort. Cardiac: heart rate and rhythm were norm al. Vascular: normal femoral pulses. Pulses: Right brachial pulse: positive. Left brachial pulse: positive. Lymphatics: no lymphadenopathy. Abdomen: soft,non-tenderandno abdo sathya mass palpated. Neurologic: the sensory exam was normal to light touch and pinprickandthe motor exam was normal. Musculoskeletal: muscle strength and ton e were normal. Skin: no skin lesions. Psychiatric: the affect was normal. Assessment Patient is a 54-year-old woman who had T EVAR for T AI on 11/27/2010. 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 She has palpable femoral pulses. We scheduled her for aortic IVUS, aortogram, and possibl e balloon aortoplasty and stenting. Risk and Benefits Risks, benefits, and alternate therapies including non-operative management were discussed with the patient. Patient verbalizes understanding and wishes to proceed. The patient understands that there is a potential for infection, blood clots in veins and lungs, hemorrhage, allergic reaction, and even . Other risks include: paralysis,renal f ailure,recurrence of symptomsandre-opening of the chest.
[2020-03-18] MEDS ORDERED: ONDANSETRON 4 MG/2 ML VIAL ONE (14:44)
[2020-03-18] MEDS ORDERED: FENTANYL CITR 100 MCG/2 ML ONE ×2 (14:44→17:22)
[2020-03-18] MEDS ORDERED: NA CHLORIDE 0.9% 1,000 ML ONE (14:44)
[2020-03-18 15:17] LABS: Basophils % 0.9 % (0-1.3); Hematocrit 40.2 % (36.0-45.0); Lymphocytes % 14.4 % (15.3-44.8); MPV 8.1 fL (7.6-11.3); RBC Red Blood Cell Count 4.26 M/uL (3.86-4.86)
[2020-03-18 15:37] LABS: Blood Morphology Comment NOT SEEN (NOT SEEN); Platelet Estimate ADEQ; Urine White Blood Cell Casts OK
[2020-03-18 16:02] LABS: Albumin 3.5 g/dL (3.4-5.0); Bilirubin Direct 0.2 mg/dL (0-0.2); Bilirubin Total 0.7 mg/dL (0.2-1.0); Potassium 3.6 mmol/L (3.5-5.1)
[2020-03-18 16:31] LABS: Urine Bacteria <20 /HPF (<20); Urine Culture Reflex Order NOT NEEDED; Urine RBC NONE SEEN /HPF (NONE SEEN)
[2020-03-18 16:38] LABS: Barbiturates NEGATIVE (NEGATIVE); Benzodiazepines POSITIVE (NEGATIVE); Cocaine NEGATIVE (NEGATIVE); METHAMPHETAM NEGATIVE (NEGATIVE); Methadone NEGATIVE (NEGATIVE); Opiates POSITIVE (NEGATIVE); Phencyclidine NEGATIVE (NEGATIVE); THC Cannibis NEGATIVE (NEGATIVE)
[2020-03-18 16:39] LABS: Urine Blood TRACE (NEG); Urine Glucose NEGATIVE (NEG); Urine Protein 2+ (NEG); Urine Specific Gravity 1.025 (1.005-1.030)
--- NOTE | 2020-03-18 17:07 | EDPHYS ---
Physician Documentation [facility] Name: Betsey Martel Age: 54 yrs Sex: Female : 1965 Arrival Date: 03/18/2020 Time: 14:07 Bed 16 Private MD: NERIS Physician Christian Amaya HPI: 03/18 14:35 This 54 yrs old Female presents to ER via EMS with complaints of nausea and pm1 vomiting. 14:35 The patient presents to the emergency department with nausea, vomiting. Onset: The pm1 symptoms/episode began/occurred 3 day(s) ago. Possible causes: possible gastroparesis. The symptoms are aggravated by food , The symptoms are alleviated by nothing. Associated signs and symptoms: Pertinent positives: chronic back pain, dark urine with foul odor, Pertinent negatives: abdominal pain, diarrhea, fever, headache, chest pain, shortness of breath. Severity of symptoms:. The patient has experienced similar episodes in the past, several times, with the last episode occurring last episode of gastroparesis . Patient complaining of generalized weakness due to nausea and vomiting. Patient reports nausea and vomiting is due to her gastroparesis. Last episode 6 months ago. 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 - Social history:: Smoking status: Patient reports the use of cigarette tobacco products, smokes one-half pack cigarettes per day. ROS: 14:35 Neck: Negative for injury, pain, and swelling. pm1 14:35 Eyes: Negative for injury, pain, redness, and discharge, ENT: Negative for injury, pain, and discharge, Cardiovascular: Negative for chest pain, palpitations, and edema, Respiratory: Negative for shortness of breath, cough, wheezing, and pleuritic chest pain. 14:35 : Negative for injury, bleeding, discharge, and swelling, MS/Extremity: Negative for injury and deformity, Skin: Negative for injury, rash, and discoloration, Neuro: Negative for headache, weakness, numbness, tingling, and seizure. 14:35 Constitutional: Positive for malaise, poor PO intake. 14:35 Abdomen/GI: Positive for nausea and vomiting, Negative for abdominal pain, diarrhea, constipation. 14:35 Back: Positive for chronic low back pain. 14:35 MS/extremity: Positive for chronic right shoulder pain, Negative for injury or acute deformity, decreased range of motion, deformity. 16:41 : Positive for dark urine, foul odor. pm1 Exam: 14:35 Constitutional: This is a well developed, well nourished patient who is awake, alert, pm1 and in no acute distress. Head/Face: Normocephalic, atraumatic. Neck: Trachea midline, no thyromegaly or masses palpated, and no cervical lymphadenopathy. Supple, full range of motion without nuchal rigidity, or vertebral point tenderness. No Meningismus. Chest/axilla: Normal chest wall appearance and motion. Nontender with no deformity. No lesions are appreciated. 14:35 Back: No spinal tenderness. No costovertebral tenderness. Full range of motion. Skin: Warm, dry with normal turgor. Normal color with no rashes, no lesions, and no evidence of cellulitis. MS/ Extremity: Pulses equal, no cyanosis. Neurovascular intact. Full, normal range of motion. 14:35 Cardiovascular: Exam negative for acute changes, Rate: normal, Rhythm: regular, Pulses: no pulse deficits are appreciated. 14:35 Respiratory: Exam negative for acute changes, respiratory distress, shortness of breath. 14:35 Abdomen/GI: Exam negative for acute changes, Inspection: abdomen appears normal, Palpation: abdomen is soft and non-tender, in all quadrants, mass, rebound tenderness. 14:35 Neuro: Exam negative for acute changes, Orientation: is normal, Mentation: is normal, Motor: is normal, moves all fours. Vital Signs: 14:11 BP 172 / 89; Pulse 50; Resp 13; Temp 98.4; Pulse Ox 99% on R/A; Weight 64.41 kg; Height vc 5 ft. 7 in. (170.18 cm); Pain 8/10; 14:30 BP 174 / 77; Pulse 53; Resp 21; Pulse Ox 96% on R/A; vc 15:30 BP 178 / 77; Pulse 49; Resp 15; Pulse Ox 96% on R/A; vc 17:00 BP 166 / 77; Pulse 49; Resp 18; Pulse Ox 98% on R/A; Pain 8/10; vc 14:11 Body Mass Index 22.24 (64.41 kg, 170.18 cm) vc MDM: 14:16 Patient medically screened. maria esther 16:32 Data reviewed: vital signs. Data interpreted: Pulse oximetry: on room air is 99 %. pm1 Interpretation: normal. 17:00 ED course: Patient reports improvement in weakness but current main complaint is her pm1 chronic lower back pain. 17:03 ED course: Patient without any vomiting in the ER. Urine without any signs of pm1 infection. Mild dehydration present on labs. Patient does not appear to meet any admission criteria. Likely cause for patient's symptoms is use of benzodiazepines, narcotics (dilaudid 4mg PO TID), and mild dehydration. Patient given IV fluids and will discharge home with antiemetic. 17:03 Special discussion: I discussed with the patient/guardian in detail that at this point pm1 there is no indication for admission to the hospital. It is understood, however, that if the symptoms persist or worsen the patient needs to return immediately for re-evaluation. 17:03 Counseling: I had a detailed discussion with the patient and/or guardian regarding: the pm1 historical points, exam findings, and any diagnostic results supporting the discharge/admit diagnosis, lab results, the need for outpatient follow up, to return to the emergency department if symptoms worsen or persist or if there are any questions or concerns that arise at home. 03/18 14:29 Order name: Basic Metabolic Panel; Complete Time: 16:03 pm1 03/18 14:29 Order name: CBC with Diff; Complete Time: 15:53 pm1 03/18 14:29 Order name: Creatinine for Radiology; Complete Time: 15:53 pm1 03/18 14:29 Order name: Hepatic Function; Complete Time: 16:03 pm1 03/18 14:29 Order name: Lipase; Complete Time: 16:03 pm1 03/18 14:30 Order name: UDS; Complete Time: 16:39 pm1 03/18 14:30 Order name: Urine Microscopic Only; Complete Time: 16:35 pm1 03/18 15:17 Order name: CBC Smear Scan; Complete Time: 15:53 EDMS 03/18 16:27 Order name: Urine Dipstick--Ancillary (enter results); Complete Time: 16:39 eb 03/18 14:29 Order name: IV Saline Lock; Complete Time: 15:07 pm1 03/18 14:29 Order name: Labs collected and sent; Complete Time: 15:07 pm1 03/18 14:30 Order name: Urine Dipstick-Ancillary (obtain specimen); Complete Time: 17:25 pm1 03/18 15:17 Order name: Labs - recollect needed: chemistry recollect; Complete Time: 17:05 eb Administered Medications: 15:05 Drug: NS 0.9% 1000 ml Route: IV; Rate: 125 ml/hr; Site: right wrist; vc 16:15 Follow up: IV Status: Order to discontinue infusion; IV Intake: 125ml vc 15:06 Drug: Zofran (Ondansetron) 4 mg Route: IVP; Site: right wrist; vc 17:23 Follow up: Response: No adverse reaction; Nausea is decreased vc 15:07 Drug: fentaNYL (PF) 50 mcg Route: IVP; Site: right wrist; vc 15:10 Follow up: Response: Other vc 17:24 Follow up: Response: No adverse reaction; RASS: Drowsy (-1) vc 16:15 Drug: NS 0.9% 1000 ml Route: IV; Rate: 1000 ml; Site: right antecubital; vc 17:15 Follow up: IV Intake: 1000ml vc 17:15 Follow up: IV Status: Completed infusion; IV Intake: 1000ml vc 16:15 Drug: NS 0.9% 1000 ml Route: IV; Rate: 1000 ml; Site: right antecubital; vc 17:28 Follow up: IV Status: Completed infusion; IV Intake: 1000ml vc 17:21 Drug: fentaNYL (PF) 25 mcg Route: IVP; Site: right antecubital; vc 17:26 Follow up: Response: No adverse reaction vc Disposition: 03/18/20 17:07 Discharged to Home. Impression: Dehydration, Vomiting. - Condition is Stable. - Discharge Instructions: Dehydration, Adult, Nausea and Vomiting, Adult, Rehydration, Adult. - Prescriptions for Zofran ODT 4 mg Oral tablet,disintegrating - place 1 tablet by TRANSLINGUAL route every 8 hours As needed; 20 tablet. - Medication Reconciliation Form, Thank You Letter, Antibiotic Education, Prescription Opioid Use form. - Follow up: Emergency Department; When: As needed; Reason: Worsening of condition. Follow up: Private Physician; When: 2 - 3 days; Reason: Recheck today's complaints, Continuance of care, Re-evaluation by your physician. - Problem is new. - Symptoms have improved. Addendum: 03/19/2020 20:22 Co-signature as Attending Physician, Christian Amaya MD I agree with the assessment and c miranda plan of care. Signatures: Dispatcher [employer] EDAZ Christian Amaya MD MD cha Marinas, Patrick, SANDWICH BOARD CARRIER SANDWICH BOARD CARRIER pm1 Rohini Hill Vanessa RN RN vc Corrections: (The following items were deleted from the chart) 03/18 16:40 14:35 Associated signs and symptoms: Pertinent positives: chronic back pain, Pertinent pm1 negatives: abdominal pain, diarrhea, fever, urinary symptoms, headache, chest pain, shortness of breath, pm1 16:41 14:35 Associated signs and symptoms: Pertinent positives: chronic back pain, Pertinent pm1 negatives: abdominal pain, diarrhea, fever, urinary symptoms, headache, chest pain, shortness of breath, pm1 17:07 17:07 03/18/2020 17:07 Discharged to Home. Impression: Vomiting; Dehydration. Condition pm1 is Stable. Discharge Instructions: Dehydration, Adult, Nausea and Vomiting, Adult, Rehydration, Adult. Prescriptions for Zofran ODT 4 mg Oral tablet,disintegrating - place 1 tablet by TRANSLINGUAL route every 8 hours As needed; 20 tablet. and Forms are Medication Reconciliation Form, Thank You Letter, Antibiotic Education, Prescription Opioid Use. Follow up: Emergency Department; When: As needed; Reason: Worsening of condition. Follow up: Private Physician; When: 2 - 3 days; Reason: Recheck today's complaints, Continuance of care, Re-evaluation by your physician. Problem is new. Symptoms have improved. pm1 18:01 17:07 03/18/2020 17:07 Discharged to Home. Impression: DehydrationVomiting. Condition vc is Stable. Discharge Instructions: Dehydration, Adult, Nausea and Vomiting, Adult, Rehydration, Adult. Prescriptions for Zofran ODT 4 mg Oral tablet,disintegrating - place 1 tablet by TRANSLINGUAL route every 8 hours As needed; 20 tablet. and Forms are Medication Reconciliation Form, Thank You Letter, Antibiotic Education, Prescription Opioid Use. Follow up: Emergency Department; When: As needed; Reason: Worsening of condition. Follow up: Private Physician; When: 2 - 3 days; Reason: Recheck today's complaints, Continuance of care, Re-evaluation by your physician. Problem is new. Symptoms have improved. pm1
--- NOTE | 2020-03-18 17:07 | ER ---
Nurse's Notes [facility] Name: Betsey Martel Age: 54 yrs Sex: Female : 1965 Arrival Date: 03/18/2020 Time: 14:07 Bed 16 Private MD: Diagnosis: Vomiting;Dehydration Presentation: 03/18 14:11 Chief complaint: Patient states: "I can not keep anything down, I have been nauseous vc for a long time, they said it was gastroparesis but now if I even smell food I vomit. I fell in the bathroom and had to scoot on my butt to call for help. I have been vomiting for 3 days now." EMS states: "Patients main complaint is weakness, She reports her urine is dark brown with a foul odor. She states she fell in the bathroom. She did not hit her head, no LOC.". Coronavirus screen: Proceed with normal triage. Ebola Screen: No symptoms or risks identified at this time. Initial Sepsis Screen: Does the patient meet any 2 criteria?. Initial Sepsis Screen: Does the patient meet any 2 criteria? No. Patient's initial sepsis screen is negative. Does the patient have a suspected source of infection? Yes: Dysuria/Frequency/Urgency/UTI. Risk Assessment: Do you want to hurt yourself or someone else? Patient reports no desire to harm self or others. Onset of symptoms was March 15, 2020. Care prior to arrival: Medication(s) given: Normal saline infusion, 150 ml IV initiated. 22 GA, in the right wrist, Glucose check: 115. 14:11 Method Of Arrival: EMS: [facility] vc 14:11 Acuity: KAREN 3 vc Triage Assessment: 16:32 General: Appears in no apparent distress. uncomfortable, Behavior is calm, cooperative, vc appropriate for age. Pain: Complains of pain in middle of back. EENT: No signs and/or symptoms were reported regarding the EENT system. 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 - Social history:: Smoking status: Patient reports the use of cigarette tobacco products, smokes one-half pack cigarettes per day. Screenin:10 Abuse screen: Denies threats or abuse. Nutritional screening: Has had N/V for 3 or more vc days. Tuberculosis screening: No symptoms or risk factors identified. Fall Risk Fall in past 12 months (25 points). Secondary diagnosis (15 points) impaired mobility, IV access (20 points). Ambulatory Aid- None/Bed Rest/Nurse Assist (0 pts). Gait- Impaired (20 pts.). Mental Status- Overestimates/Forgets Limitations (15 pts.). Total Corona Fall Scale indicates High Risk Score (45 or more points). Fall prevention measures have been instituted. Side Rails Up X 2 Placed Close to Nursing Station Frequent Obs/Assessments Occuring. Assessment: 14:30 General: Appears in no apparent distress. uncomfortable, Behavior is drowsy. Pain: vc Complains of pain in lumbar area Pain does not radiate. Pain Quality of pain is described as sharp. Neuro: Level of Consciousness is awake, lethargic. Neuro: Gait is unsteady. Cardiovascular: Patient's skin is warm and dry. Rhythm is sinus bradycardia. Respiratory: Airway is patent Respiratory effort is even, unlabored, Respiratory pattern is regular, symmetrical. GI: Abdomen is. : Urine is clear. EENT: No signs and/or symptoms were reported regarding the EENT system. Derm: Skin is intact, is healthy with good turgor, Skin temperature is cool. Musculoskeletal: Range of motion: intact in all extremities. 15:00 Reassessment: Patient appears in no apparent distress at this time. Patient and/or vc family updated on plan of care and expected duration. Pain level reassessed. 15:03 Reassessment: Patient requests pain medication, Patient informed she has already been vc given pain medication, patient states, "oh yeah, I forgot.". 16:00 Reassessment: Patient appears in no apparent distress at this time. No changes from vc previously documented assessment. Patient and/or family updated on plan of care and expected duration. Pain level reassessed. 16:05 Reassessment: Helped patient to the bathroom, patient unable to ambulate on her own, vc patient tried to pull her pants down in the middle of the hallway, patient redirected to the bathroom. 16:10 Reassessment: Patient requests more pain medicine, patient unable to stay away. Patient vc informed that her heart rate is too low to give pain medicine to. Patient states, " It has been hours since I received anything." Patient informed she received pain medication an hour ago, patient states, "Oh I forgot.". 17:00 Reassessment: Patient appears in no apparent distress at this time. Patient states, "I vc feel better now, if you just give me something for this back pain, I will be ready to go.". Vital Signs: 14:11 BP 172 / 89; Pulse 50; Resp 13; Temp 98.4; Pulse Ox 99% on R/A; Weight 64.41 kg; Height vc 5 ft. 7 in. (170.18 cm); Pain 8/10; 14:30 BP 174 / 77; Pulse 53; Resp 21; Pulse Ox 96% on R/A; vc 15:30 BP 178 / 77; Pulse 49; Resp 15; Pulse Ox 96% on R/A; vc 17:00 BP 166 / 77; Pulse 49; Resp 18; Pulse Ox 98% on R/A; Pain 8/10; vc 14:11 Body Mass Index 22.24 (64.41 kg, 170.18 cm) vc ED Course: 14:07 Patient arrived in ED. vc 14:10 Chris Whiting NP is PHCP. pm1 14:10 Christian Amaya MD is Attending Physician. pm1 14:15 Arm band placed on. vc 14:15 Patient has correct armband on for positive identification. Bed in low position. Call vc light in reach. 14:15 railroad mechanic on. Pulse ox on. NIBP on. vc 14:27 Triage completed. vc 14:35 Sri Sousa, SOURAV is Primary Nurse. vc 18:00 No provider procedures requiring assistance completed. IV discontinued, intact, vc bleeding controlled, No redness/swelling at site. Pressure dressing applied. Administered Medications: 15:05 Drug: NS 0.9% 1000 ml Route: IV; Rate: 125 ml/hr; Site: right wrist; vc 16:15 Follow up: IV Status: Order to discontinue infusion; IV Intake: 125ml vc 15:06 Drug: Zofran (Ondansetron) 4 mg Route: IVP; Site: right wrist; vc 17:23 Follow up: Response: No adverse reaction; Nausea is decreased vc 15:07 Drug: fentaNYL (PF) 50 mcg Route: IVP; Site: right wrist; vc 15:10 Follow up: Response: Other vc 17:24 Follow up: Response: No adverse reaction; RASS: Drowsy (-1) vc 16:15 Drug: NS 0.9% 1000 ml Route: IV; Rate: 1000 ml; Site: right antecubital; vc 17:15 Follow up: IV Intake: 1000ml vc 17:15 Follow up: IV Status: Completed infusion; IV Intake: 1000ml vc 16:15 Drug: NS 0.9% 1000 ml Route: IV; Rate: 1000 ml; Site: right antecubital; vc 17:28 Follow up: IV Status: Completed infusion; IV Intake: 1000ml vc 17:21 Drug: fentaNYL (PF) 25 mcg Route: IVP; Site: right antecubital; vc 17:26 Follow up: Response: No adverse reaction vc Intake: 16:15 IV: 125ml; Total: 125ml. vc 17:15 IV: 1000ml; Total: 1125ml. vc 17:15 IV: 1000ml; Total: 2125ml. vc 17:28 IV: 1000ml; Total: 3125ml. vc Outcome: 17:07 Discharge ordered by . pm1 18:01 Discharged to home via wheelchair, with friend. vc 18:01 Condition: good 18:01 Discharge instructions given to patient, Instructed on discharge instructions, follow up and referral plans. medication usage, Demonstrated understanding of instructions, follow-up care, medications, Prescriptions given X 1. 18:01 Patient left the ED. vc Signatures: Chris Whiting NP REVOLVING INVENTORY CLERK pm1 Sri Sousa, RN RN vc
[2020-03-18 18:52] VITALS: BP 172/89; TEMP 98.4; O2SAT 99
== END 2020-03-18 18:01 | disposition home or self-care (01) ==
LOC: ER 14:02
DX: E86.0 Dehydration (principal); R11.10 Vomiting, unspecified; F17.210 Nicotine dependence, cigarettes, uncomplicated
CPT/HCPCS: 85025; 80048; 36415; 80076; 80307 ×8; 83690; 99284; J3010 ×2; J7030; J2405; 81003; 81015

== ENCOUNTER 2020-03-18 19:55 | Emergency (ER) | payer OTHER ==
[2012-05-28 16:51] VITALS: BP 98/40
--- OUTSIDE RECORDS SUMMARY | 2020-03-18 19:58 | XMS REPORT | Clinical Summary ---
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
--- OUTSIDE RECORDS SUMMARY | 2020-03-18 19:59 | XMS REPORT ---
:1965 Author Organization [facility] t Address [address] [place] [address] Dr. Phillips [address] [place] [id number] Care Team Providers Name Role Phone Unavailable Unavailable Unavailable Problems This patient has no known problems. Allergies, Adverse Reactions, Alerts This patient has no known allergies or adverse reactions. Medications This patient has no known medications. Encounters Start End Encounter Admission Attending Care Care Encounter Date/Time Date/Time Type Type Clinicians Facility Department ID 2019-08-03 2019-08-03 Outpatient [facility] [id number] 10:08:00 10:08:00
--- OUTSIDE RECORDS SUMMARY | 2020-03-18 19:59 | XMS REPORT | Continuity of Care Document ---
:1965 Author Organization anchor[employer]travel Information [employer] Care Team Providers Name Role Phone [employer] Information [employer] Unavailable Un available Problems Problem Status Onset Classification Date Comments Sourc e Date Reported SUPRAVALVULAR Active 07/26/20 [place] as AORTIC STENOSIS [facility] I71.0 - Active 06/13/20 [facility] DISSECTION OF [address] [place] Hematochezia Resolved 08/08/20 Problem 08/05/2019 Reinaldo as (finding) [address] [place] [address], [facility] [place] Anxiety (finding) Active Problem 08/05/2019 [facility], [facility] [place] Degeneration of Resolved Problem 08/05/2019 [facility] lumbar [facility] intervertebral Cente r, disc (disorder) [facility] [place] Depressive Resolved Problem 08/05/2019 [facility] disorder Medical (disorder) Center, [facility] [place] Hypertensive Active Problem 08/05/2019 [place]inaldo as disorder, Medical systemic arterial Ce nter, (disorder) [facility] [place] Hypothyroidism Resolved Problem 08/05/2019 [facility] (disorder) [facility], [facility] [place] Impaired mobility Active Problem 08/05/2019 [facility] (finding) [facility], [facility] [place] Impaired skin Active Problem 08/05/[place] [facility] (finding) [place], [facility] [place] Kidney disease Resolved Problem 08/05/2019 [facility] (disorder) [facility], [facility] [place] Pain (finding) Active Problem 08/05/2019 [facility], [facility] [place] Rheumatoid Resolved Problem 08/05/2019 [facility] arthritis Medical (disorder) [place], [facility] [place] Medications Medication Details Route Status Patient Ordering Order Source Instructions Provider Date ondansetron Route: IV, Inactive 08/03/ [facility] (ANES) Drug form: 2018 Medical INJ, ONCE, Center Stop date: 08/03/19 17:55:00 CDT neostigmine Route: IV, Inactive 08/03/ [facility] (ANES) Drug form: 2018 Medical INJ, [...] 17:16:00 CDT lidocaine (ANES) Route: IV, Inactive [facility] Drug form: 2018 Medical INJ, ONCE, [...] 16:51:00 CDT midazolam (ANES) Route: IV, Inactive [facility] Drug form: 2018 Medical SOLN, ONCE, Center Stop date: 08/03/19 16:45:00 CDT glycopyrrolate Route: IV, [place] (ANES) Drug form: 2018 Medical INJ, ONCE, Center Stop date: 08/03/19 16:45:00 CDT norepinephrine Route: IV, [place] (ANES) Drug form: 2018 Medical INJ, ONCE, Center Stop date: 08/03/19 16:40:00 CDT ceFAZolin (ANES) Route: IV, Inactive [facility] Drug form: 2019 Medical INJ, ONCE, Center Stop date: 08/03/19 16:35:00 CDT Isolyte S PH 7.4 Route: IV, Inactive [facility] (ANES) 1000 mL Total Volume: 2019 [...] 1.79, m2, 0 Versed Notes: Same Inactive [facility] as: Versed ( 2019 Medical Preservative Center Free) MEDICATION WASTE Product Size: 5 mg Product Wasted: ___ mg Versed Notes: (Same Inactive [facility] as: Versed) 2019 Medical MEDICATION Center WASTE Product Size: 5 mg Product Wasted: ___ mg Probiotic 1 cap, PO, Active [facility] Formula oral Daily, 0 2019 Medical capsule Refill(s) [place] Magnesium 400 mg, PO, Active [facility] Sulfate ONCE, 0 2018 Medical Refill(s) [place] biotin 1000 mcg 1,000 Active [facility] oral tablet microgram = 1 2018 Medica l tab, PO, Center Daily, # 30 tab, 0 Refill(s) Non-Formulary 1 cap, PO, Active [facility] Med[facility] Daily, 2019 Medical Refill(s) 0 Center Folic Acid 0.4 0.4 mg = 1 Active [place]do as MG Oral Tablet tab, PO, 2019 Medical Daily, # 100 Center tab, 0 Refill(s) Vitamin B-12 5,000 Active [facility] 5000 mcg microgram = 1 2018 [...] Sodium Chloride 250 mL, Rate: No Longer [facility] 0.9% (titrate) To prime line Active [...] ource type Reported Seroquel Assertion Drug Active [facility] Wellbutrin Assertion Drug Active [facility] BuSpar Assertion Drug Active [facility] as allergy [facility] Center Cymbalta Assertion Drug Active [facility] NSAIDs Assertion Drug Active Re[facility]do as allergy Medical Center Immunizations Immunization Date Site Status Last Updated Comments Sour ce Given tetanus-diphther Left completed [facility] [place] toxoids 1 [facility], ANNE MARIE Johnston pneumococcal Left completed Dominic Flavia s 23-valent 1 [facility] [place], ANNE MARIE [place] Results Order Name Results Value Reference Date Interpretation Comments Teresita rce Range CHEM PANEL Glucose Lvl 84 70 - 99 08/03 [facility] CHEM PANEL BUN 30 7 - 22 08/03 [facility] CHEM PANEL Creatinine 1.34 0.50 - 08/03 [place] Lvl 1.40 [facility] CHEM PANEL Sodium Lvl 138 135 - 145 08/03 [facility] CHEM PANEL Potassium Lvl 4.1 3.5 - 5.1 08/03 [place] [facility] CHEM PANEL Chloride Lvl 103 95 - 109 08/03 [facility] CHEM PANEL CO2 28 24 - 32 08/03 [facility] CHEM PANEL Calcium Lvl 8.9 8.5 - 10.5 08/03 [facility] CHEM PANEL AGAP 11.1 10.0 - 08/03 [place] 20.0 [facility] CHEM PANEL B/C Ratio 22 6 - 25 08/03 [facility] CHEM PANEL eGFR 45 08/03 [facility] Comment: The Medical eGFR is Center calculated [...] PANEL ALT 20 0 - 65 08/03 [facility] CHEM PANEL Albumin Lvl 3.6 3.5 - 5.0 08/03 [facility] CHEM PANEL Alk Phos 83 39 - 136 08/03 [facility] CHEM PANEL Bili Total 0.6 0.2 - 1.3 08/03 [facility] CHEM PANEL Total Protein 6.3 6.4 - 8.4 08/03 [place] [facility] CHEM PANEL AST 20 0 - 37 08/03 [facility] CHEM PANEL Globulin 2.7 2.7 - 4.2 08/03 [facility] CHEM PANEL A/G Ratio 1.3 0.7 - 1.6 08/03 [facility] BLOOD BANK ABO/Rh O NEG 08/03 [facility] RESULTS [facility] BLOOD BANK Antibody Scrn Negative 08/03 [facility] as RESULTS (08/03/19 10:26 AM) [facility] CHEM PANEL Glucose Lvl 84 70 - 99 08/03 [facility] CHEM PANEL BUN 30 7 - 22 08/03 [facility] CHEM PANEL Creatinine 1.33 0.50 - 08/03 [facility] Lvl 1.40 [facility] CHEM PANEL Sodium Lvl 135 135 - 145 08/03 [facility] CHEM PANEL Potassium Lvl 5.0 3.5 - 5.1 08/03 Result Comment: [facility] Slightly Hemolyzed.

Specim en Icteric. CHEM PANEL Chloride Lvl 102 95 - 109 08/03 [facility] CHEM PANEL CO2 26 24 - 32 08/03 [facility] CHEM PANEL Calcium Lvl 8.9 8.5 - 10.5 08/03 [facility] as [facility] CHEM PANEL AGAP 12.0 10.0 - 08/03 [place] 20.0 [facility] CHEM PANEL B/C Ratio 23 6 - 25 08/03 [facility] CHEM PANEL eGFR 45 08/03 Result Comment: [...] ALT 23 0 - 65 08/03 2018 [facility] CHEM PANEL Albumin Lvl 4.0 3.5 - 5.0 08[place] [facility] CHEM PANEL Alk Phos 92 39 - 136 08/03 2018 [facility] CHEM PANEL Bili Total 0.7 0.2 - 1.3 08/03 [facility] CHEM PANEL Total Protein 6.8 6.4 - 8.4 08/03 [place] [facility] CHEM PANEL AST 30 0 - 37 08/03 2018 [facility] CHEM PANEL Globulin 2.8 2.7 - 4.2 08/03 [facility] CHEM PANEL A/G Ratio 1.4 0.7 - 1.6 08/03 2018 [facility] HEMATOLOGY WBC 4.0 3.7 - 10.4 08/03 2018 [facility] HEMATOLOGY RBC 3.67 4.20 - 08/03 [place] 5.40 [facility] HEMATOLOGY Hgb 12.1 12.0 - 08/03 [facility] 16.0 [facility] HEMATOLOGY Hct 35.1 36.0 - 08/03 [place] 48.0 [facility] HEMATOLOGY MCV 95.5 80.0 - 08/03 [facility] 98.0 [facility] HEMATOLOGY MCH 33.1 27.0 - 08/03 [place] 31.0 [facility] HEMATOLOGY MCHC 34.6 32.0 - 08/03 [place] 36.0 [facility] HEMATOLOGY RDW 12.5 11.5 - 08/03 [facility] 14.5 [facility] HEMATOLOGY Platelet 179 133 - 450 08/03 [facility] HEMATOLOGY MPV 7.4 7.4 - 10.4 08/03 [facility] HEMATOLOGY PT 12.6 12.0 - 08/03 [facility] 14.7 [facility] HEMATOLOGY INR 0.96 0.85 - 08/03 [place] 1.17 [facility] HEMATOLOGY PTT 32.8 22.9 - 08/03 [facility] [place] 35.8 /2018 [facility] HEMATOLOGY Segs 39.7 45.0 - 08/03 [facility] 75.0 [facility] HEMATOLOGY Lymphocytes 44.0 20.0 - 08/03 [facility] 40.0 [facility] HEMATOLOGY Monocytes 8.8 2.0 - 12.0 08/[address] HEMATOLOGY Eosinophils 6.4 0.0 - 4.0 08/03 [facility]2018 [facility] HEMATOLOGY Basophils 1.1 0.0 - 1.0 08/[address] HEMATOLOGY Neutrophils # 1.6 1.5 - 8.1 08/03 [facility]2018 [facility] HEMATOLOGY Lymphocytes # 1.8 1.0 - 5.5 08/03 [facility]2018 [facility] HEMATOLOGY Monocytes # 0.4 0.0 - 0.8 08/03 [facility]2018 [facility] HEMATOLOGY Eosinophils # 0.3 0.0 - 0.5 08/[address] SPECIAL Hgb A1C 5.1 <=5.6 % 08/03 [facility] Pathology Reports No Data Provided for This Section Diagnostic Reports Report Value Date Source Chest CTA Patient Name: JULIAN MARTEL 06/20/2019 ANNE MARIE Johnston : 1965; Age: 53 years y/o Female MR: [id number] Study: Chest CTA 06/20/2019 14:16 CDT Clinical [...] just be due to postcholecystectomy changes. SL: [id number] Consultation Notes No Data Provided for This Section Discharge Summaries No Data Provided for This Section History and Physicals No Data Provided for This Section Vital Signs Vital Sign Value Date Comments Source Respitory Rate 16 08/04/2019 [facility] Systolic (mm Hg) 131 08/04/[address] [facility] [place] Diastolic (mm Hg) 65 08/04/2019 [facility] Respitory Rate 12 08/04/2019 [facility] Systolic (mm Hg) 122 08/04/[address] [facility] [place] Diastolic (mm Hg) 58 08/04/2019 [facility] Respitory Rate 8 08/04/2019 [facility] Systolic (mm Hg) 93 08/04/[address] [facility] [place] Diastolic (mm Hg) 46 08/04/2019 [facility] Height 167.64 cm 08/03/2019 [facility] Weight 68.001 08/03/2019 [facility] BMI Calculated 24.2 08/03/2019 [facility] Height 170.18 cm 08/03/2019 [facility] Weight 69.148 08/03/2019 [facility] BMI Calculated 23.88 08/03/2019 [facility] Encounters Location Location Encounter Encounter Reason Attending ADM DC Stat us Source Details Type Number For Provider Date Date Visit [facility] Outpt Diag [id number] Chik-Albert 06/20 06/21 [facility] [place] [id number] C[facility] 08/03 08/04 [facility] [place] /2018 [facility] Procedures Procedure Code Date Perfomer Comments Source Knee replacement [id number] 11/09/2014 [facility] Partial shoulder [id number] 11/09/2012 RIGHT [facility] replacement<sup>1</guzman Med ical p> Center Arthrectomy of [id number] 07/10/2011 RIGHT [facility] ankle<sup>2</sup> [facility] Repair of ruptured [id number] 11/09/2009 [place] as 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, vessels with graft [facility] [place] Arthroscopy of knee [id number] 11/09/2003 [facility], [facility] [place] Bilateral inguinal [id number] 11/09/1997 [place] as hernia repair [facility], [facility] [place] Destruction of brain [id number] 11/09/1996 [facility] tumor [facility], [facility] [place] Cholecystectomy [id number] 11/09/1994 [facility], [facility] [place] Arteriectomy of aorta [id number] 11/09/1993 [facility], [facility] [place] Arthroplasty of joint [id number] 11/09/1993 LEFT [place] of the Medical hand<sup>3</sup> Center Arthrectomy of [id number] RIGHT [facility] ankle<sup>1</sup> [place] Arthroplasty of joint [id number] LEFT [facility] of the [place] hand<sup>2</sup> Caesarean section [id number] [facility] [place] Partial shoulder [id number] RIGHT [facility] replacement<sup>3</guzman [place] p> Caesarean [id number] 1994 [facility] section<sup>4</sup> Medic [facility] Assessment and Plan Assessment and Plan Date Source Extracted from:Title: Clinical Document 08/04/2019 [facility] Author: AllisonGuerita Ian Date: 08/03/19 Reason For [...] Alcohol Vitals UTP Adult Vital Signs Recorded: [id number] 04:56PM Height: 5 ft 7 in Weight: 152 lb 8 oz BMI Calculated: 23.89 BSA Calculated: 1.8 Blood Pressure: 114 / 68 Temperature: 96.4 F Heart Rate: 61 O2 Saturation: 96 Current Meds medication list reconciled and reviewed 1. Carvedilol TABS; Therapy: (Recorded:[id number]) to Recorded 2. clonazePAM TABS; Therapy: (Recorded:[id number]) to Recorded 3. Furosemide 20 MG Oral Tablet; Therapy: (Recorded:[id number]) to Recorded 4. hydrALAZINE HCl TABS; Therapy: (Recorded:[id number]) to Recorded 5. Hydrocodone-Acetaminophen 10-650 MG TABS; Therapy: (Recorded:[id number]) to Recorded 6. Isosorbide Mononitrate TABS; Therapy: (Recorded:[id number]) to Recorded 7. Klor-Con 10 10 MEQ Oral Tablet Extended Release; Therapy: (Recorded:[id number]) to Recorded 8. Lisinopril 10 MG Oral Tablet; Therapy: (Recorded:[id number]) to Recorded 9. Methocarbamol 750 MG Oral Tablet; Therapy: (Recorded:[id number]) to Recorded 10. Naproxen 500 MG Oral Tablet; Therapy: (Recorded:[id number]) to Recorded 11. Omeprazole 40 MG Oral Capsule Delayed Release; Therapy: (Recorded:[id number]) to Recorded 12. rOPINIRole HCl - 2 MG Oral Tablet; Therapy: (Recorded:[id number]) to Recorded 13. Topiramate 200 MG Oral Tablet; Therapy: (Recorded:[id number]) to Recorded 14. traZODone HCl TABS; Therapy: (Recorded:[id number]) to Recorded Physical Exam General: alert and [...] History Date Source Social History TypeResponse 08/03/2019 [facility] Alcohol Past, Type Beer, Wine. Employment/School Status: Unemployed. Exercise 1 Substance Abuse Use: None. Smoking Status Current every day smoker; Type: Cigarett es; Previous treatment: None; Exposure to Tobacco Smoke None; Cigarette Smoking Last 365 Days Yes; Reg Smoking Cessation Counseling No; Tobacco use per day: 4; Number of years: 25; 2 entered on: 08/03/19 [id number] Social History TypeResponse 04/01/2019 [facility] [place] [...]
[2020-03-18] MEDS ORDERED: ACETAMINOPHEN 500 MG TAB ONE (20:41)
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
--- NOTE | 2020-03-18 21:51 | RAD REPORT ---
EXAM DESCRIPTION: RAD - Hip Right 2 View - 03/18/2020 9:40 pm CLINICAL HISTORY: injury Pain, injury COMPARISON: Hip Right 2 View dated 01/13/2017; Hip Right 2 View dated 03/16/2016 FINDINGS: Old trauma related changes affect the right hemipelvis. No acute fracture or dislocation i s seen.
--- NOTE | 2020-03-18 21:52 | RAD REPORT ---
EXAM DESCRIPTION: RAD - Femur Right - 03/18/2020 9:40 pm CLINICAL HISTORY: injury Pain, swelling COMPARISON: No comparisons FINDINGS: Right total knee arthroplasty is present. No acute fracture seen. No joint effusion.
--- NOTE | 2020-03-18 21:53 | RAD REPORT ---
EXAM DESCRIPTION: RAD - Knee Right 3 View - 03/18/2020 9:40 pm CLINICAL HISTORY: trauma Pain and swelling COMPARISON: Knee Right 3 View dated 10/09/2015 FINDINGS: Right total knee arthroplasty is seen. No evidence of hardware loosening. No fracture or j oint effusion.
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
--- NOTE | 2020-03-18 21:55 | RAD REPORT ---
EXAM DESCRIPTION: RAD - Ankle Right 3 View - 03/18/2020 9:40 pm CLINICAL HISTORY: injury Pain and swelling. COMPARISON: No comparisons FINDINGS: No acute fracture or dislocation. Small plantar calcaneal spur.
--- NOTE | 2020-03-18 23:06 | ER ---
Nurse's Notes [facility] Name: Betsey Martel Age: 54 yrs Sex: Female : 1965 Arrival Date: 03/18/2020 Time: 19:58 Bed 20 Private MD: Diagnosis: Contusion of right hip;Contusion of right lower leg;Contusion of right knee;Contusion of right ankle;Contusion of right thigh Presentation: 03/18 20:00 Chief complaint: EMS states: Pt states that she fell at home after her leg went out from under her. she is complaining about right leg and hip pain. Pt was DC from ER aprox 2 hours ago. Coronavirus screen: Proceed with normal triage. Patient denies a cough. Patient denies shortness of breath or difficulty breathing. Patient denies measured and/or subjective temperature greater than 100.4F prior to today's visit. Patient denies travel on a cruise ship or to a country the [facility] currently lists as an affected area. Patient denies contact with known and/or suspected case of COVID-19. Ebola Screen: No symptoms or risks identified at this time. Initial Sepsis Screen: Does the patient meet any 2 criteria? No. Patient's initial sepsis screen is negative. Does the patient have a suspected source of infection? No. Patient's initial sepsis screen is negative. Risk Assessment: Do you want to hurt yourself or someone else? Patient reports no desire to harm self or others. Onset of symptoms was March 18, 2020. 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 - Social history:: Smoking status: Patient reports the use of cigarette tobacco products, smokes one-half pack cigarettes per day. Screenin:27 Abuse screen: Denies threats or abuse. Nutritional screening: No deficits noted. Tuberculosis screening: No symptoms or risk factors identified. Fall Risk None identified. Assessment: 20:10 General: Appears uncomfortable, Behavior is crying. Pain: Complains of pain in right ah hip, right knee, and right ankle Pain began 1 hour ago. Neuro: Level of Consciousness is awake, alert, obeys commands, Oriented to person, place, Appropriate for age. Cardiovascular: Capillary refill < 3 seconds Patient's skin is warm and dry. Respiratory: Airway is patent Respiratory effort is even, unlabored, Respiratory pattern is regular, symmetrical. GI: No signs and/or symptoms were reported involving the gastrointestinal system. : No signs and/or symptoms were reported regarding the genitourinary system. EENT: No signs and/or symptoms were reported regarding the EENT system. Derm: No signs and/or symptoms reported regarding the dermatologic system. Musculoskeletal: Reports pain in right hip, right ankle, and right knee. Injury Description: Pt states that she was trying to get off of the couch and her leg went out and she fell. 20:39 Reassessment: Pt crying and stating that she thinks her right hip and ankle are broke ah while she is laying on her right side. Pt given Tylenol per orders. she states, "tylenol, what the hell is tylenol going to do when I take dilaudid at home. Yall gave me more than this earlier and I wasn't in this much pain." Informed Pt that's what the MD wants to start with and we will reevaluate after xrays. 21:00 Reassessment: Pt to radiology for xrays via stretcher at this time. 22:10 Reassessment: No changes from previously documented assessment. Patient and/or family ll1 updated on plan of care and expected duration. Pain level reassessed. Patient is alert, oriented x 3, equal unlabored respirations, skin warm/dry/pink. Patient states symptoms have not improved. requesting narcotic pain medication. Informed that Dr. Coronado will not prescribe narcotics. States she wants to see Dr. Amaya, informed he wasn't here anymore. States she wants to be transferred to [facility]. Will inform Dr. Coronado, patient stated she already has. . 22:20 Reassessment: Refused CT scan. Dr. Coronado informed. ll1 23:00 Reassessment: Son called for ride home.. ll1 23:20 Reassessment: No changes from previously documented assessment. Patient and/or family ll1 updated on plan of care and expected duration. Pain level reassessed. Patient is alert, oriented x 3, equal unlabored respirations, skin warm/dry/pink. Patient states symptoms have not improved. to be discharged, waiting on ride home.. Vital Signs: 20:28 BP 152 / 79; Pulse 56; Resp 20; Temp 97.9; Pulse Ox 97% ; Weight 64.86 kg; Height 5 ft. 7 in. (170.18 cm); 20:30 BP 140 / 79; Pulse 49; Resp 17; Pulse Ox 98% ; ah 23:14 BP 129 / 92; Pulse 100; Resp 16; Temp 97.9; Pulse Ox 97% ; Pain 10/10; ll1 20:28 Body Mass Index 22.40 (64.86 kg, 170.18 cm) ED Course: 19:58 Patient arrived in ED. 20:09 Lizabeth Moreno, RN is Primary Nurse. 20:12 Triage completed. 20:20 Jerry Coronado MD is Attending Physician. [facility] 20:28 Patient has correct armband on for positive identification. Bed in low position. Call light in reach. Side rails up X2. 21:40 Hip Right 2 View XRAY In Process Unspecified. EDMS 21:40 Pelvis XRAY In Process Unspecified. EDMS 21:40 Femur Right XRAY In Process Unspecified. EDMS 21:40 Knee Right 3 View XRAY In Process Unspecified. EDMS 21:40 Tib Fib Right XRAY In Process Unspecified. EDMS 21:41 Ankle Right 3 View XRAY In Process Unspecified. EDMS 23:04 James Peguero MD is Referral Physician. 7 23:24 Arm band placed on. ll1 23:24 No provider procedures requiring assistance completed. Patient did not have IV access ll1 during this emergency room visit. Administered Medications: 20:39 Drug: Tylenol 1000 mg Route: PO; 23:15 Follow up: Response: No adverse reaction; Pain is unchanged, physician notified; RASS: ll1 Restless (+1) Outcome: 23:06 Discharge ordered by MD. jang 23:35 Discharged to home via wheelchair, Patient wheeled out to sons car with nurse and ER vc Tech. 23:35 Condition: stable 23:35 Discharge instructions given to patient, Instructed on discharge instructions, follow up and referral plans. Demonstrated understanding of instructions, follow-up care. 23:35 Patient left the ED. vc Signatures: Dispatcher [employer] EDSri Albarran RN RN vc Harris, Amy RN RN Olga Logan RN RN ll1 Jerry Coronado MD MD [email or web address]
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
== END 2020-03-18 23:35 | disposition home or self-care (01) ==
LOC: ER 19:55
DX: S70.01XA Contusion of right hip, initial encounter (principal); S80.01XA Contusion of right knee, initial encounter; S90.01XA Contusion of right ankle, initial encounter; S70.11XA Contusion of right thigh, initial encounter; W18.30XA Fall on same level, unspecified, initial encounter; Y93.9 Activity, unspecified; Y92.019 Unspecified place in single-family (private) house as the place of occurrence of the external cause; Z88.6 Allergy status to analgesic agent; F17.210 Nicotine dependence, cigarettes, uncomplicated
CPT/HCPCS: 72170; 99283

== ENCOUNTER 2020-09-26 17:27 | Emergency (ER) | payer OTHER ==
--- OUTSIDE RECORDS SUMMARY | 2020-09-26 17:30 | XMS REPORT | Clinical Summary ---
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 Heart Rate Change: No Slow Fractionated Injection: Yes Block outcome: No apparent complica tions, patient comfortable and patient tolerated procedure well Medications Administered Bupivacaine 0.25 % PF (mL), 2 mL ropivacaine 0.5 % PF (mL), 20 mL POC glucose (06/21/2020 6:43 AM CDT) Pathologist Sig nature POC glucose 105 (H) 65 - 99 mg/dL [facility] Comment: HOSPITAL Electricity Trader Name: Ananda Moriah Mejía Device ID: [id number] Chartable: [facility] Notified RN Specimen Blood Performing Organization Address City/[facility] Phon e Number [facility] DEPARTMENT OF PATHOLOGY AND [address] [place] [address] 0 [place] [phone] COVID-19 qualitative PCR (06/19/2020 3:10 PM CDT)Only the most recent of2 resultswithin the time period is included. Interpretation Negative results do not prec lude 2019-nCoV infection and should not be used as the sole basis for treatment or other patient management decisions. Negative results must be combined with clinical observations, patient history, and epidemiological [facility] information. [facility] COVID-19 qualitative Not-Detected Not-Detecte [place] PCR [facility] d [facility] See link below for [place] PCR PDF Lab PENTECOSTALISM ReportComment: Case HOSPITAL Number: [id number] Specimen Nasopharyngeal swab Performing Organization Address City/[facility] Phon e Number [facility] DEPARTMENT OF PATHOLOGY AND [address] [place] [address] [phone] [address] [facility] Urinalysis screen and microscopy, with reflex to culture (06/08/2020 6:23 PM CDT) Specimen site Clean catch [facility] Color, UA Yellow [facility] Appearance, UA Clear [facility] Specific gravity, UA 1.020 1.001 - 1.035 [facility] pH, UA 5.0 5.0 - 8.5 [facility] Protein, UA Negative Negative [facility] Glucose, UA Negative Negative [facility] Ketones, UA Negative Negative [facility] Bilirubin, UA Negative Negative [facility] Blood, UA Negative Negative [facility] Nitrite, UA Negative Negative [facility] Urobilinogen, UA <2.0 <2.0 [facility] Leukocyte esterase, Negative Negative [facility] Epithelial cells, UA <1 /HPF [facility] WBC, UA 1 0 - 4 /HPF [facility] RBC, UA 1 0 - 5 /HPF [facility] Bacteria, UA None seen None seen [facility] Yeast, UA None seen [facility] Yeast with None seen [facility] pseudohyphae, [facility] Hyaline casts, UA >20 (A) /LPF [facility] Specimen Urine Performing Organization Address City/[facility] Phon e Number [facility] DEPARTMENT OF PATHOLOGY AND [address] [place] [address] [phone] [address] Urine culture (06/08/2020 6:23 PM CDT) Pathologist Sig nature Urine culture SEE COMMENTComment: [facility] Bacteriuria screen HOSPITAL negative. Specimen Performing Organization Address City/[facility] Phon e Number [facility] DEPARTMENT OF PATHOLOGY AND [address] [place] [address] [phone] [address] ECG Pre/Post Op (06/08/2020 6:15 PM CDT) Pathologist Sig nature Ventricular rate 62 [facility] Atrial rate 62 [facility] [place] interval 150 [facility] QRSD interval 90 [facility] QT interval 422 [facility] QTC interval 428 [facility] P axis 1 52 [facility] QRS axis 1 33 [facility] T wave axis 59 [facility] EKG impression Normal sinus [facility] MUSE rhythm-Normal ECG-No previous ECGs available-Electronicall y Signed By Severo Anderson MD ([id number]) on 06/09/2020 3:58:11 PM Specimen Narrative Performed At This result has an attachment that is no t available. Performing Organization Address City/[facility]/ZIP Code Phon e Number [facility] MUSE [address] [place] [address] Type and screen (06/08/2020 6:01 PM CDT) Pathologist Sig nature ABO grouping O [facility] Rh type NEG [facility] Antibody screen (gel) NEG [facility] Specimen Blood Performing Organization Address City/[facility] Phon e Number [facility] DEPARTMENT OF PATHOLOGY AND [address] [place] [address] [phone] [address] Hemoglobin A1c (06/08/2020 6:01 PM CDT) Hemoglobin A1C 5.1 4.0 - 5.6 % [facility] Comment: HOSPITAL HbA1c cutoffs for diagnosing diabetes: 4.0% - 5.6% = normal 5.7% - 6.4% = increased risk for diabetes (prediabetes )9 >=6.5% = diabetes9 Goals for glycemic control (ADA 2016) < 7.0% Target for non adults with diabetes. More or less stringent targets may be appropriate for individual patients. <7.5% Target for Children and adolescents with type 1 diabetes. Specimen Blood Performing Organization Address [facility] Phon e Number [facility] DEPARTMENT OF PATHOLOGY AND [address] [place] [address] [phone] [address] Comprehensive metabolic panel (06/08/2020 6:01 PM CDT) Sodium 138 135 - 148 [facility] mEq/L [facility] Potassium 4.3 3.5 - 5.0 [facility] mEq/L [facility] Chloride 101 98 - 112 [facility] mEq/L [facility] CO2 24 24 - 31 mEq/L [facility] Anion gap 13@ANIO 7 - 15 mEq/L [facility] BUN 21 (H) 6 - 20 mg/dL [facility] Creatinine 1.10 (H) 0.50 - 0.90 [facility] mg/dL [facility] Glucose 132 (H) 65 - 99 mg/dL [facility] Calcium 9.9 8.3 - 10.2 [facility] mg/dL HOSPITAL Protein 6.8 6.3 - 8.3 [facility] Comment: g/dL [facility] [place] 4.6-7.0 g/dL 1 week 4.4-7.6 g/dL 7 months-1year 5.1-7.3 g/dL 1-2 years 5.6-7.5 g/dL >3 years 6.0-8.0 g/dL 18-150 6.3-8.3 g/dL Albumin 3.6 3.5 - 5.0 [facility] g/dL HOSPITAL A/G ratio 1.1 0.7 - 3.8 [facility] Alkaline phosphatase 85 35 - 104 U/L [facility] AST 22 10 - 35 U/L [facility] ALT 21 5 - 50 U/L [facility] Total bilirubin 0.6 0.0 - 1.2 [facility] mg/dL HOSPITAL Specimen Blood Performing Organization Address City/State/ZIP Code Phon e Number [facility] DEPARTMENT OF PATHOLOGY AND [address] [place] [phone] GENOMIC MEDICINE [facility] [address] [place] [address] after 09/26/2019 Advance Directives For more information, please contact: [phone] Type Date Recorded Patient Skin Toggler Explanati on Advance Directives, Living Will 06/21/2020 12:00 AM and Medical Power of Rouge Miller
--- OUTSIDE RECORDS SUMMARY | 2020-09-26 17:33 | XMS REPORT | Continuity of Care Document ---
:1965 Author Organization [employer] User [place] Care Team Providers Name Role Phone [employer] User [place] Unavailable Un available Problems Problem Status Onset Classification Date Comments Sour e Date Reported Acute kidney 04/25/20 04/27/2020 failure, 20 [place] unspecified Dehydration 04/25/20 04/27/2020 20 [place] Weakness 04/25/20 04/27/2020 [facility] [place] WEAKNESS Active 04/24/20 [place] [address] Mohan CONVULSIONS Active 03/19/[address] VASOGENIC EDEMA Active 03/18/20 [place] [address] [place] [address] SUPRAVALVULAR Active 07/26/20 [place] as AORTIC STENOSIS [facility] I71.0 - Active 06/13/20 OPILeigh DISSECTION OF 19 [facility] nd AORTA Hematochezia Resolved 08/08/20 Problem 05/05/2020 [place] as (finding) [address] [place] [address], Alfonzo Johnston Anxiety (finding) Active Problem 05/05/2020 [facility], Alfonzo Johnston 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, [place]fonzo [place] Impaired skin Active Problem 05/05/[place] [facility] (finding) Center, Alfonzo Johnston Kidney disease Resolved Problem 05/05/2020 [place] (disorder[place] [facility], Alfonzo Johnston Pain (finding) Active Problem 05/05/2020 [facility] [place] ANNE MARIE [place] Rheumatoid Resolved Problem 05/05/2020 [facility] arthritis Medical (disorder) Center, Alfonzo Johnstno ANNE MARIE Johnston Medications Medication Details Route Status Patient Ordering Order Source Instructions Provider Date Sodium Chloride 1,000 mL, 1000 Inactive 0.9% (Bolus) IV ml/hr, Infuse [address] [facility] Over: 1 hr, Route: IV, 1,000, Drug form: INJ, ONCE, Priority: STAT, Dosing Weight 56.002 kg, Start date: 04/25/20 0:02:00 CDT, Stop date: 04/25/20 0:02:00 CDT, 0 Benadryl Notes: (Same Inactive [facility] as: Benadryl) [address] [place] [address] Phenergan Notes: (Same Inactive [facility] as: Phenergan) [address] [place] [address] carvedilol 3.13 3.125 mg = 1 Active [place] MG Oral Tablet tab, PO, BID, # 2019 M edical [Coreg] 60 tab, 0 Center Refill(s) lisinopril 20 mg 20 mg = 1 tab, Active [place] oral tablet PO, Daily, # 90 2020 Medi dyan tab, 3 Center Refill(s) gabapentin 300 Notes: (Same No Longer [place] MG Oral Capsule as: Neurontin) Active 2019 edical Center Acetaminophen 1,000 mg = 2 [place] 500 [place] Oral tab, PO, 2020 Medical Tablet Q6Hnow, 0 Center Refill(s) gabapentin 300 300 mg = 1 cap, Active H [place] MG Oral Capsule PO, Q12H, # 60 2020 edical cap, 0 Center Refill(s) lisinopril 20 mg 20 mg = 1 tab, No Longer [place] oral tablet PO, Daily, # 90 Active 2019 Medi dyan tab, 3 Center Refill(s) carvedilol 12.5 12.5 mg = 1 No Longer [place] mg oral tablet tab, PO, Q12H, Active 2020 Pa dical # 90 tab, 1 Center Refill(s) Valproic Acid 500 mg = 2 cap, Active [place] 250 MG Oral PO, BID, # 90 2019 Medica l Capsule cap, 0 Center Refill(s) Tylenol Notes: Max No Longer [place] acetaminophen 2019 Medical 4000 mg/day (4 Center gm/day). (Same as: Tylenol Extra Strength) Hydromorphone Notes: (Same No Longer [place] as: Dilaudid) 2019 Medical Center Lisinopril Notes: (Same [place] as: Prinivil, 2019 Medical Zestril) Center Lidocaine Notes: (Same Inactive [facility] Hydrochloride 10 as: Xylocaine) 2019 Medical MG/ML Injectable Center Solution Versed Notes: (Same Inactive [facility] as: Versed) 2019 Medical MEDICATION Center WASTE Product Size: 2 mg Product Wasted: ___ mg Lisinopril Notes: (Same No Longer [place] as: Prinivil, 2019 Medical Zestril) [place] Lisinopril Notes: (Same No Longer [place] as: Prinivil, 2019 Medical Zestril) [place] carvedilol Notes: Give No Longer [place] with food. 2019 Medical (Same As: [place] Coreg) Valproic Acid Notes: (Same No Longer [facility] 250 MG Oral As: Depakene) 2019 Medica l Capsule (Do Not Crush) [place] Hazardous Drug Group 3:Reproductive risk Hazardous Drug -- Refer to safe handling procedure PPE Matrix Hydralazine Notes: (Same [place] Longer [place] Hydrochloride 50 as: Apresoline) 2019 Medical MG Oral Tablet May interfere Ce nter w/enteral feedings Take With Food Iohexol Notes: (same Inactive [place] as:Omnipaque 2020 Medical 350). WASTE: Center F/P - Black; E - Municipal Trash Bin Lisinopril Notes: (Same [place] as: Prinivil, 2020 Medical Zestril) Center carvedilol Notes: Give Inactive [place] with food. 2019 Medical (Same As: Center Coreg) Lovenox Notes: (Same No Longer [place] as: Lovenox) Active 2019 [facility] Potassium Notes: (Same No Longer s Chloride as: KCL) 2019 Medical Infuse no Center faster than 10 mEq/hr if given peripherally. sodium phosphate Notes: Infuse No Longer [place] over 4 hour. Do Active [facility] Medical not infuse Center phosphorous concurrently in the same line as TPN or IVF that contains calcium. For double lumen central lines, phosphorous may be infused in a separate lumen from TPN. potassium Notes: (Same [place] Longer [place] phosphate as: K Active 2019 [facility] Phosphate.) Do Center not infuse phosphorous concurrently in the same line as TPN or IVF that contains calcium. For double lumen central lines, phosphorous may be infused in a separate lumen from TPN. 1 mMol phoshate has 1.47 mEq potassium Infuse over 4 hours potassium Notes: (Same No Longer s phosphate-sodium as: Phos-NaK) 2019 edical phosphate 250 Each 1.5 gm pkt Ce nter mg-280 mg-160 mg has 250mg oral powder for phosphorous. reconstitution Mix w/2.5oz water and stir. Magnesium Notes: WASTE: No Longer [place] as Sulfate F/P - Sink; E - Active [address] [place] [address] Trash Center Bin Magnesium Oxide Notes: (Same No Longer H [place] as: Mag-Ox 400) 2019 [facility] Magnesium oxide [place] [id number] elemental magnesium Dose=____mg magnesium oxide (___mg elemental magnesium) Calcium Notes: WASTE: No Longer [place] Gluconate F/P - Sink; E - Active 2019 Medica l Municipal Trash [facility] Bin Calcium Notes: (Same No Longer [place] Carbonate 500 MG As: Tums) Active 2019 Medic al Chewable Tablet Calcium Center Carbonate 500 mg = 200 mg elemental calcium Dose = mg calcium carbonate ( mg elemental calcium) atorvastatin Notes: (Same No Longer [place] As: Lipitor) Active [address] [place] [address] ropinirole Notes: (Same [place] as: Requip) [address] [place] [address] Dilaudid Notes: (Same No Longer [place] as: Dilaudid) Active [address] [place] [address] Lisinopril Notes: (Same No Longer [place] as: Prinivil, 2019 [facility] Zestril) Center vortioxetine 20 20 mg = 1 tab, Active H [place] MG Oral Tablet PO, Daily, # 90 2020 M edical [Trintellix] tab, 0 Center Refill(s) clonazePAM 1 mg 1 mg = 1 tab, Active [place] oral tablet PO, TID, PRN 2020 Medical Anxiety, # 90 Center tab, 0 Refill(s) levothyroxine 50 50 microgram = Active [place] mcg (0.05 mg) 1 tab, PO, QAM, 2020 Me dical oral tablet # 90 tab, 0 Center Refill(s) pantoprazole 40 40 mg = 1 tab, Active H [place] mg oral enteric PO, Daily, # 90 2020 Medical coated tablet tab, 0 Center Refill(s) trazodone 150 mg 150 mg = 1 tab, No Longer 03/19 [place] oral tablet PO, Bedtime, # Active 2020 Medic al 90 tab, 0 Center Refill(s) Hydromorphone 4 mg = 1 tab, Active [place] Hydrochloride 4 PO, TID, # 42 2020 Me dical MG Oral Tablet tab, 0 Center [Dilaudid] Refill(s) Lexapro Notes: (Same No Longer [place] as: Lexapro) [address] Clonazepam Notes: (Same No Longer [place] as As: KlonoPIN) [address] Hazardous Drug Center Group 3:Reproductive risk Hazardous Drug -- Refer to safe handling procedure PPE Matrix pantoprazole 20 mg, 1 tab, Inactive [place] Route: PO, Drug 2019 Medical form: ECTAB, Center Daily, Dosing Weight 63.6, kg, Start date: 03/19/20 9:00:00 CDT, Duration: 30 day, Stop date: 04/17/20 9:00:00 CDT Trintellix 10 mg, 1 tab, Inactive [place] as Route: PO, Drug 2019 Medical form: TAB, Center Daily, Dosing Weight 63.6, kg, Start date: 03/19/20 9:00:00 CDT, Duration: 30 day, Stop date: 04/17/20 9:00:00 CDT Hydralazine Notes: (Same [place] Longer [place] Hydrochloride 50 as: Apresoline) Active 2019 Medical MG Oral Tablet May interfere Ce nter w/enteral feedings Take With Food ropinirole Notes: (Same No Longer [place] as: Requip) Active 2019 [facility] Center Thyroxine Notes: Take 1 No Longer [place] as hour before or 2019 Medical 2 hours after Center meal; Enteral feeds may interefere with the absorption of this medication.(Praveen e as:Levothroid, Synthroid) Acetaminophen Notes: Do not No Longer [place] 300 MG / Codeine exceed 4gm/day 2019 Medical Phosphate 30 MG of Center Oral Tablet acetaminophen. [Tylenol with (Same as: Codeine #3] Tylenol with Codeine # 3) Nitroglycerin Notes: (Same No Longer [place] as:Nitroquick, Active 2019 Medical Nitrostat) "Do Center Not Crush" Sublingual tablet Ativan Notes: (Same Inactive [place] as: Ativan) 2019 [facility] Hydralazine Notes: (Same Inactive [place] as: Apresoline) 2019 Medical Push over 5 Center minutes Keppra 1,000 mg, Inactive [place] Route: IVPB2019 Medical Drug form: INJ, Center ONCE, Dosing Weight 63.6, kg, Loading Dose, Priority: STAT, Start date: 03/19/20 5:09:00 CDT, Stop date: 03/19/20 5:09:00 CDT Keppra 1,000 mg, Inactive [place] Route: IVPB2019 Medical Drug form: INJ, Center ONCE, Dosing Weight 63.6, kg, Loading Dose, Start date: 03/19/20 5:06:00 CDT, Stop date: 03/19/20 5:06:00 CDT Nicardipine Notes: Same as: No Longer Maru Cardene Active 2019 Medical Concentration: Center (0.2 mg /1 ml ) Morphine Notes: (Same Inactive as:MORPhine 2019 [place] Sulfate) Ondansetron Notes: (Same Inactive as: Zofran) 2019 [place] MEDICATION WASTE Product Size: 4 mg Product Wasted: ___ mg Aspirin 324 mg, Route: Inactive CHEW, Drug 2019 [place] form: CHEWTAB, ONCE, Dosing Weight 64.3, kg, Priority: STAT, Start date: 03/19/20 1:52:00 CDT, Stop date: 03/19/20 1:52:00 CDT Ativan Notes: (Same Inactive as: Ativan) 2019 [place] ondansetron Route: IV, Drug Inactive [place] (ANES) form: INJ, 2018 Medical ONCE, Stop Center date: 08/03/19 17:55:00 CDT neostigmine Route: IV, Drug Inactive [place] (ANES) form: INJ, 2018 Medical ONCE, Stop Center date: 08/03/19 17:55:00 CDT protamine (ANES) Route: IV, Drug Inactive [place] form: INJ, 2018 Medical ONCE, Stop Center date: 08/03/19 17:41:00 CDT esmolol (ANES) Route: IV, Drug Inactive [place] form: INJ, 2018 Medical ONCE, Stop Center date: 08/03/19 17:36:00 CDT heparin (ANES) Route: IV, Drug Inactive [place] form: INJ, 2018 Medical ONCE, Stop Center date: 08/03/19 17:16:00 CDT vasopressin Route: IV, Drug Inactive [place] (ANES) + sodium form: INJ, 2018 Medic al chloride (ANES) ONCE, Stop Cente r 19 mL date: 08/03/19 17:16:00 CDT lidocaine (ANES) Route: IV, Drug Inactive [facility] form: INJ, 2018 Medical ONCE, Stop Center date: 08/03/19 16:51:00 CDT fentaNYL (ANES) Route: IV, Drug Inactive [facility] form: INJ, 2018 Medical ONCE, Stop Center date: 08/03/19 16:51:00 CDT rocuronium Route: IV, Drug Inactive [place] (ANES) form: INJ, 2018 Medical ONCE, Stop Center date: 08/03/19 16:51:00 CDT propofol (ANES) Route: IV, Drug Inactive [facility] form: INJ, 2018 Medical ONCE, Stop Center date: 08/03/19 16:51:00 CDT midazolam (ANES) Route: IV, Drug Inactive [facility] form: SOLN, 2018 Medical ONCE, Stop Center date: 08/03/19 16:45:00 CDT glycopyrrolate Route: IV, Drug Inactive [place] (ANES) form: INJ, 2018 Medical ONCE, Stop Center date: 08/03/19 16:45:00 CDT norepinephrine Route: IV, Drug Inactive [place] (ANES) form: INJ, 2018 Medical ONCE, Stop Center date: 08/03/19 16:40:00 CDT ceFAZolin (ANES) Route: IV, Drug Inactive [facility] form: INJ, 2018 Medical ONCE, Stop Center date: 08/03/19 16:35:00 CDT Isolyte S PH 7.4 Route: IV, Inactive [place] (ANES) 1000 mL Total Volume: 2018 Med ical 1,000, Start Center date: 08/03/19 15:30:00 CDT, Stop date: 08/03/19 16:30:00 CDT 1/2 NS 1,000 mL 1,000 mL, Rate: No Longer [place] 100 ml/hr, Active 2018 Medical Infuse over: 10 Center hr, Route: IV, Dosing Weight 68.001 kg, Total Volume: 1,000, Start date: 08/03/19 14:31:00 CDT, Duration: 30 day, Stop date: 09/02/19 14:30:00 CDT, 1.79, m2, 0 Versed Notes: Same as: Inactive Flavia Danieled ( 2019 Medical Preservative Center Free) MEDICATION WASTE Product Size: 5 mg Product Wasted: ___ mg Versed Notes: (Same Inactive [facility] as: Versed) 2019 Medical MEDICATION Center WASTE Product Size: 5 mg Product Wasted: ___ mg Probiotic 1 cap, PO, Active [place] Formula oral Daily, 0 2019 Medical capsule Refill(s) [place] Magnesium 400 mg, PO, Active [place] Sulfate ONCE, 0 2019 Medical Refill(s) [place] biotin 1000 mcg 1,000 microgram Active [place] oral tablet = 1 tab, PO, 2019 Medical Daily, # 30 Center tab, 0 Refill(s) Non-Formulary 1 cap, PO, Active [place] Home Medication Daily, 2019 Medical Refill(s) 0 Center Folic Acid 0.4 0.4 mg = 1 tab, Active H [place] MG Oral Tablet PO, Daily, # 2019 Medi dyan 100 tab, 0 Center Refill(s) Vitamin B-12 5,000 microgram Active [place] 5000 mcg = 1 tab, SL, 2019 Medical sublingual Daily, 0 Center tablet Refill(s) Zyrtec 5 mg, Daily, 0 Active [facility] Refill(s) 2019 Medical Center Promethazine 25 mg = 1 tab, Active [place] Hydrochloride 25 PO, Q12H, PRN 2019 M edical MG Oral Tablet for motion Center sickness, # 60 tab, 0 Refill(s) clonazePAM 1 mg 1 mg = 1 tab, Active [facility] oral tablet PO, PRN, PRN 2019 Medical Anxiety, # 30 Center tab, 0 Refill(s) rOPINIRole 2 mg 2 mg = 1 tab, Active [place] oral tablet PO, Bedtime, # 2019 Medic al 90 tab, 1 Center Refill(s) Trazodone 100 mg = 1 tab, Active [place] as Hydrochloride PO, Bedtime, # 2019 Med ical 100 MG Oral 30 tab, 0 Center Tablet Refill(s) pantoprazole 20 20 mg = 1 tab, Active H [place] mg oral enteric PO, Daily, # 30 2019 Medical coated tablet tab, 1 Center Refill(s) Sodium Chloride 250 mL, Rate: No Longer [place] 0.9% (titrate) To prime line Active 2019 [...] ource type Reported Seroquel Assertion Drug Active MH OP ID allergy [place] Wellbutrin Assertion Drug Active MH OPID allergy [place] BuSpar Assertion Drug Active MH OPI D allergy [place] Cymbalta Assertion Drug Active MH OP ID allergy [place] NSAIDs Assertion Drug Active MH OPI D allergy [place] Immunizations Immunization Date Site Status Last Updated Comments Sour ce Given tetanus-diphther Left completed [employer] Maru ia toxoids [address] [facility]IE [place] pneumococcal Left completed Dominic Flavia s 23-valent 1 [facility]NE MARIE [place] Results Order Name Results Value Reference Date Interpretation Comments Teresita rce Range DRUG SCREEN U Amph Scr Positive Negative 04/25 MH *ABN* /2019 [place] (04/24/20 11:43 PM) DRUG SCREEN U Parisa Scr Negative Negative 04/25 *NA* [place] (04/24/20 11:43 PM) DRUG SCREEN U Benzodiaz Negative Negative 04/25 Scr *NA* [place] (04/24/20 11:43 PM) DRUG SCREEN U Cocaine Negative Negative 04/25 Scr *NA* [place] (04/24/20 11:43 PM) DRUG SCREEN U Cannab Scr Negative Negative 04/25 *NA* /2019 [place] (04/24/20 11:43 PM) DRUG SCREEN U Opiate Scr Positive Negative 04/25 MH *ABN* /2019 [place] (04/24/20 11:43 PM) DRUG SCREEN U Negative Negative 04/25 Phencyclidin *NA* [place] e Scr (04/24/20 11:43 PM) DRUG SCREEN UDS Note See Note 04/25 (04/24/20 11:43 PM) /2019 [place] and URINE AND UA Color Yellow Yellow 04/25 STOOL *NA* [place] (04/24/20 11:43 PM) URINE AND UA Turbidity Clear Clear 04/25 [place] (04/24/20 11:43 PM) [place] and URINE AND UA Spec Grav 1.012 <=1.030 04/25 STOOL [place] URINE AND UA pH 5.0 5.0 - 8.0 04/25 STOOL [place] URINE AND UA Protein Negative Negative 04/25 STOOL mg/dL mg/dL [place] URINE AND UA Glucose Negative Negative 04/25 STOOL mg/dL mg/dL [place] URINE AND UA Ketones Negative Negative 04/25 STOOL mg/dL mg/dL [place] URINE AND UA Bili Negative Negative 04/25 STOOL *NA* /2019 [place] (04/24/20 11:43 PM) URINE AND UA Blood Negative Negative 04/25 [place] (04/24/20 11:43 PM) [place] and URINE AND UA Nitrite Negative Negative 04/25 [place] (04/24/20 11:43 PM) [place] and URINE AND UA Leuk Est Negative Negative 04/25 [place] (04/24/20 11:43 PM) [place] and URINE AND UA WBC 2 0 - 5 04/25 STOOL [place] URINE AND UA RBC 1 0 - 2 04/25 STOOL [place] URINE AND UA Bacteria Occasional None Seen 04/25 [place]O[facility] /HPF /HPF [place] URINE AND UA Mucus Few /LPF None Seen 04/25 STOOL /LPF [place] URINE AND UA Sq Epi None Seen 04/25 STOOL [place] URINE AND UA <=1.0 0.1 - 1.0 04/25 STOOL Urobilinogen mg/dL [place] CARDIAC Total CK 102 12 - 191 04/25 ENZYMES [place] CARDIAC Troponin-I <0.02 0.00 - 04/25 ENZYMES 0. [place] CHEM PANEL Glucose Lvl 111 70 - 99 04/25 [place] CHEM PANEL BUN 45 7 - 22 04/25 [place] CHEM PANEL Creatinine 1.99 0.50 - 04/25 Lvl 1.40 [place] CHEM PANEL Sodium Lvl 136 135 - 145 04/25 [place] CHEM PANEL Potassium 4.7 3.5 - 5.1 04/25 Lvl [place] CHEM PANEL Chloride Lvl 101 95 - 109 04/25 [place] CHEM PANEL CO2 29 24 - 32 04/25 MH [place] CHEM PANEL Calcium Lvl 9.0 8.5 - 10.5 04/25 MH [place] CHEM PANEL Total 6.7 6.4 - 8.4 04/25 MH [place] CHEM PANEL Albumin Lvl 3.8 3.5 - 5.0 04/25 [place] CHEM PANEL ALT 22 0 - 65 04/25 MH [place] CHEM PANEL AST 19 0 - 37 04/25 MH [place] CHEM PANEL Alk Phos 95 39 - 136 04/25 MH [place] CHEM PANEL Bili Total 0.4 0.2 - 1.3 04/25 MH [place] CHEM PANEL AGAP 10.7 10.0 - 06 MH 20.0 [place] CHEM PANEL B/C Ratio 23 6 - 25 04/25 [place] CHEM PANEL Globulin 2.9 2.7 - 4.2 04/25 MH [place] CHEM PANEL A/G Ratio 1.3 0.7 - 1.6 04/25 [place] CHEM PANEL eGFR 28 04/25 Result Comment: The [place] eGFR is calculated using the CKD-EPI formula. [...] should be multiplied by the estimated BMI. HEMATOLOGY WBC 6.3 3.7 - 10.4 04/25 [place] HEMATOLOGY RBC 3.81 4.20 - 06 MH 5.40 [place] HEMATOLOGY Hgb 12.5 12.0 - 04/25 MH 16.0 [place] HEMATOLOGY Hct 36.7 36.0 - 04/25 MH 48.0 /2019 [place] HEMATOLOGY MCV 96.1 80.0 - 04/25 MH 98.0 /2019 [place] HEMATOLOGY MCH 32.8 27.0 - 04/25 MH 31.0 /2019 [place] HEMATOLOGY MCHC 34.1 32.0 - 04/25 MH 36.0 [place] HEMATOLOGY RDW 12.8 11.5 - 04/25 MH 14.5 [place] HEMATOLOGY Platelet 145 133 - 450 06 MH /2019 [place] HEMATOLOGY MPV 7.8 7.4 - 10.4 06 MH /2019 [place] HEMATOLOGY PTT 28.6 22.9 - 04/25 MH 35.8 /2019 [place] HEMATOLOGY PT 12.4 12.0 - 04/25 MH 14.7 [place] HEMATOLOGY INR 0.92 0.85 - 04/25 MH 1. [place] HEMATOLOGY Segs 59.7 45.0 - 04/25 MH 75.0 [place] HEMATOLOGY Lymphocytes 29.8 20.0 - 04/25 MH 40.0 [place] HEMATOLOGY Monocytes 6.8 2.0 - 12.0 04/25 [place] HEMATOLOGY Eosinophils 1.7 0.0 - 4.0 04/25 [place] HEMATOLOGY Basophils 2.0 0.0 - 1.0 04/25 [place] HEMATOLOGY Neutrophils 3.8 1.5 - 8.1 04/25 MH # /2019 [place] HEMATOLOGY Lymphocytes 1.9 1.0 - 5.5 04/25 # [place] HEMATOLOGY Monocytes # 0.4 0.0 - 0.8 04/25 [place] HEMATOLOGY Eosinophils 0.1 0.0 - 0.5 04/25 MH # [place] HEMATOLOGY Basophils # 0.1 0.0 - 0.2 04/25 [place] CHEM PANEL Magnesium 1.9 1.8 - 2.4 05/ [facility] /2019 [facility] CHEM PANEL Phosphorus 3.7 2.5 - 4.5 05 [facility] /2019 [facility] CHEM PANEL Glucose Lvl 127 70 - 99 05 [facility] /2019 [facility] CHEM PANEL BUN 15 7 - [address] [facility] CHEM PANEL Creatinine 0.88 0.50 - 05 [facility] 1.40 /2019 [facility] CHEM PANEL Sodium Lvl 138 135 - 145 03/[address] [facility] CHEM PANEL Potassium 3.7 3.5 - 5.1 03/[address] [facility] [address] [facility] CHEM PANEL Chloride Lvl 104 95 - 109 03/[address] [facility] CHEM PANEL CO2 24 24 - 32 03/[address] [facility] CHEM PANEL Calcium Lvl 8.6 8.5 - 10.5 03/22 [facility] as [facility] CHEM PANEL AGAP 13.7 10.0 - 03/[address] [facility] [address] [facility] CHEM PANEL eGFR 74 03/22 Result Comment: The Medical eGFR is Center [...] should be multiplied by the estimated BMI. HEMATOLOGY Segs 34.6 45.0 - 03/[address] [facility] [address] [facility] HEMATOLOGY Lymphocytes 52.1 20.0 - 03/[address] [facility] [address] [facility] HEMATOLOGY Monocytes 8.0 2.0 - 12.0 03/[address] HEMATOLOGY Eosinophils 4.4 0.0 - 4.0 03/22 [facility] s /2019 [facility] HEMATOLOGY Basophils 0.9 0.0 - 1.0 03/[address] HEMATOLOGY Neutrophils 1.7 1.5 - 8.1 03/22 [facility] s # /2019 [facility] HEMATOLOGY Lymphocytes 2.6 1.0 - 5.5 03/22 [facility] s # /2019 [facility] HEMATOLOGY Monocytes # 0.4 0.0 - 0.8 03/22 [place]2019 [facility] HEMATOLOGY Eosinophils 0.2 0.0 - 0.5 03/22 [place] # /2019 [facility] HEMATOLOGY WBC 4.9 3.7 - 10.4 03/22 /2019 [facility] HEMATOLOGY RBC 3.72 4.20 - 03/22 [place] 5.40 /2019 [facility] HEMATOLOGY Hgb 12.2 12.0 - 03/22 [facility] 16.0 /2019 [facility] HEMATOLOGY Hct 35.4 36.0 - 03/22 [facility] 48.0 /2019 [facility] HEMATOLOGY MCV 95.0 80.0 - 03/22 [facility] 98.0 /2019 [facility] HEMATOLOGY MCH 32.7 27.0 - 03/22 [facility] 31.0 /2019 [facility] HEMATOLOGY MCHC 34.4 32.0 - 03/22 [facility] 36.0 /2019 [facility] HEMATOLOGY RDW 13.1 11.5 - 03/22 [facility] 14.5 /2019 [facility] HEMATOLOGY Platelet 219 133 - 450 03/22 [facility] /2019 [facility] HEMATOLOGY MPV 7.6 7.4 - 10.4 03/22 /2019 [facility] PARATHYROID Ca Ion WB 1.14 1.05 - 03/22 [facility] [address]25 [facility] PARATHYROID Ca Norm WB 1.14 1.05 - 03/22 [facility] [address].25 [facility] BACTERIAL - Source Strep Cerebral 03/21 [place] SEROLOGY Spinal /2019 [facility] BACTERIAL - Strep Negative Negative 03/21 [facility] SEROLOGY pneumoniae (03/21/20 12:24 PM) [facility] BODY FLUIDS Tube Num CSF 1 03/[place]2019 [facility] BODY FLUIDS Color CSF Colorless Colorless 03/21 [place] (03/21/20 12:24 PM) Medic al Center BODY FLUIDS Clarity CSF Clear Clear 03/21 [facility] (03/21/20 12:24 PM) [facility] BODY FLUIDS Supernat CSF Colorless Colorless 03/21 [facility] (03/21/20 12:24 PM) Medic al Center BODY FLUIDS Nucleated 0 0 - 53 03/21 [facility] Cells CSF /2020 [facility] BODY FLUIDS RBC CSF 1 0 - 03 03/21 [facility] /[address] [place] [address] BODY FLUIDS Comment CSF Differenti 03/21 [place] /2019 Medical performed Center when WBC is zero. BODY FLUIDS Glucose CSF 64 45 - 80 03/[address] [facility] BODY FLUIDS Protein CSF 31 15 - 45 03/[address] BODY FLUIDS Tube Num CSF 4 03/21 [facility] BODY FLUIDS Color CSF Colorless Colorless 03/21 [facility] [facility] (03/21/20 12:24 PM) /2019 [facility] BODY FLUIDS Clarity CSF Clear Clear 03/21 [facility] (03/21/20 12:24 PM) [facility] BODY FLUIDS Supernat CSF Colorless Colorless 03/21 [facility] (03/21/20 12:24 PM) [facility] BODY FLUIDS Nucleated 1 0 - 53 03/21 [facility] Cells CSF [facility] BODY FLUIDS RBC CSF 0 0 - 03 03/21 [facility]2019 [facility] BODY FLUIDS Comment CSF Differenti 03[place] [facility] on WBC count of less than 5. BODY FLUIDS Lactic Acid 1.9 0.6 - 2.2 03/21 [facility] CSF [facility] FUNGAL - Crypto Ag Negative Negative 03/21 [facility] SEROLOGY CSF (03/21/20 12:24 PM) /2019 [facility] IMMUNOLOGY VDRL Scr CSF Non Reactive Non 03/21 [facility] (03/21/20 12:24 PM) Reactive [facility] IMMUNOLOGY Alb (CPE) 3300.0 3400.0 - 03/[address] [facility] [address] [facility] IMMUNOLOGY IgG Lvl CSF 1.1 2.0 - 4.0 03/21 [facility] IMMUNOLOGY IgG (CPE) 495 694 - 1618 03/[address] IMMUNOLOGY IgG Index 0.5 0.3 - 0.7 03/[address] IMMUNOLOGY Alb CSF 15.4 14.0 - 03/21 [facility] (CPE) 25.0 [facility] IMMUNOLOGY Description The gel 03/21 [facility] CSF demonstrat [facility] appropriat e resolution of the main protein bands. The gamma region shows continuous distributi on of proteins both in the CSF and in the serum. No oligoclona l bands are detected. IMMUNOLOGY PE Interp CSF 03/21 [facility] CSF protein /2019 [facility] electropho [place] resis did not reveal evidence of an oligoclona l process in the CAMPGROUND ATTENDANT. The CSF IgG index is within the reference range indicating that there is no elevation in intracereb ral IgG synthesis. There is also no evidence of increased permeabili ty of the blood brain barrier based on the CSF/serum albumin ratio. The electronic medical record has been reviewed for relevant history. I have personally reviewed the test results and concur with the resident's interpreta tion. CPT: 45376-ZR IMMUNOLOGY Albumin % 60.1 55.8 - 03/21 [place] 66.1 /2019 [facility] IMMUNOLOGY Alpha 1 % 6.7 2.8 - 4.9 03/21 [facility] /[address] [place] [address] IMMUNOLOGY Alpha 2 % 12.1 7.0 - 11.9 03/21 [facility] /[address] [place] [address] IMMUNOLOGY Beta % 11.3 7.8 - 13.7 03/[address] IMMUNOLOGY Gamma % 9.8 11.1 - 03/21 [facility] 18.7 /2019 [facility] IMMUNOLOGY Albumin 4.21 3.57 - 03/21 [facility] ([facility]) 5.55 /2019 [facility] IMMUNOLOGY Alpha 1 Glob 0.47 0.18 - 03/21 [place] 0.41 /2019 [facility] IMMUNOLOGY Alpha 2 Glob 0.85 0.45 - 03/21 [place] 1.00 /2019 [facility] IMMUNOLOGY Beta Glob 0.79 0.50 - 03/[address] [place] [address] [facility] IMMUNOLOGY Gamma Glob 0.69 0.71 - 03/21 [place] 1.57 /2019 [facility] IMMUNOLOGY Tot Prot 7.0 6.4 - 8.4 03/21 [facility] (SPE) /2019 [facility] IMMUNOLOGY SPE Interp Capillary 03/21 [facility] electropho /2019 [facility] demonstrat es hypogammag lobulinemi a. This may be seen in light chain disease. Recommend serum and 24 hour urine immunofixa tion for further evaluation . Total protein is within the reference range. Serum protein electropho resis shows an increase in the alpha-1 and decrease in gamma globulin fraction. All other globulin fractions are within the reference ranges. The electronic medical record has been reviewed for relevant history. I have personally reviewed the test results and concur with the resident's interpreta tion. CPT 66167-BS IMMUNOLOGY Toxoplasma <0.5 <=6.3 03/21 [facility] IgG IU/mL /2019 [facility] IMMUNOLOGY Toxoplasma 0.420 <=0.800 03/21 [facility] IgM INDEX /2019 [facility] MOLECULAR Source HSV Cerebral 03/21 [facility] DIAGNOSTIC Spinal /2020 [facility] MOLECULAR HSV 1 by PCR Not Performed 1 Negative 03/21 Result [facility] DIAGNOSTIC (03/21/20 12:24 PM) /2019 Comment: C SF Medical contains less Center than 5 WBC'S and has a normal Protein level. MOLECULAR HSV 2 by PCR Not Performed 2 Negative 03/21 Result [facility] DIAGNOSTIC (03/21/20 12:24 PM) Comment: C Medical contains less Center than 5 WBC'S and has a normal Protein level. MOLECULAR Source VZV Cerebral 03/21 [facility] DIAGNOSTIC Spinal /2020 [facility] MOLECULAR VZV PCR Negative Negative 03/21 [facility] DIAGNOSTIC (03/21/20 12:24 PM) /2019 [facility] MOLECULAR Source CMV Cerebral 03/21 [facility] DIAGNOSTIC Spinal /2020 [facility] MOLECULAR CMV PCR Negative Negative 03/21 [facility] DIAGNOSTIC (03/21/20 12:24 PM) [facility] VIRAL - Enterovirus Negative Negative 03/21 [facility] SEROLOGY PCR CSF (03/21/20 12:24 PM) /2019 [facility] Gram Stain Gram Stain 03/21 [facility] Report Performed /2019 Medical By: Center [facility] Culture: CSF 72 Hour 03/21 [facility] w/Gram Stain Report - /2019 Medical No Growth, Center Holding CHEM PANEL Glucose Lvl 100 70 - 99 03/[address] CHEM PANEL BUN 12 7 - 22 03/[address] CHEM PANEL Creatinine 1.03 0.50 - 03/21 [facility] L[address]40 [facility] CHEM PANEL Sodium Lvl 135 135 - 145 03/[address] CHEM PANEL Potassium 3.9 3.5 - 5.1 03/21 [facility] Lvl /2019 [facility] CHEM PANEL Chloride Lvl 102 95 - 109 03[facility] CHEM PANEL CO2 26 24 - 32 03/[address] CHEM PANEL Calcium Lvl 9.4 8.5 - 10.5 03/21 [place] as /2019 [facility] CHEM PANEL AGAP 10.9 10.0 - 03/21 [facility] 20.0 /2019 [facility] CHEM PANEL eGFR 61 03/21 Result [facility] Comment: The Medical eGFR is Center [...] multiplied by the estimated BMI. CHEM PANEL Magnesium 2.0 1.8 - 2.4 03/[address] [facility] [address] [facility] CHEM PANEL Phosphorus 2.6 2.5 - 4.5 03/[address] HEMATOLOGY WBC 6.6 3.7 - 10.4 03/[address] HEMATOLOGY RBC 4.11 4.20 - 03/[address] [place] [address] [facility] HEMATOLOGY Hgb 13.5 12.0 - 03/[address] [place] [address] [facility] HEMATOLOGY Hct 39.7 36.0 - 03/[address] [place] [address] [facility] HEMATOLOGY MCV 96.7 80.0 - 03/21 [facility] 98.0 /2019 [facility] HEMATOLOGY MCH 32.8 27.0 - 03/[address] [place] [address] [facility] HEMATOLOGY MCHC 33.9 32.0 - 03/[address] [place] [address] [facility] HEMATOLOGY RDW 13.3 11.5 - 03/[address] [place] [address] [facility] HEMATOLOGY Platelet 291 133 - 450 03/[address] HEMATOLOGY MPV 8.1 7.4 - 10.4 03/[address] HEMATOLOGY PT 13.5 12.0 - 03/21 [place] 14.7 /2019 [facility] HEMATOLOGY INR 1.03 0.85 - 03/[address] [place] [address] [facility] HEMATOLOGY PTT 32.1 22.9 - 03/21 [place] 35.8 /2019 [facility] HEMATOLOGY Segs 65.9 45.0 - 03/21 [facility] [place] 75.0 /2019 [facility] HEMATOLOGY Lymphocytes 26.2 20.0 - 03/21 [facility] 40.0 /2019 [facility] HEMATOLOGY Monocytes 5.4 2.0 - 12.0 03/[address] HEMATOLOGY Eosinophils 1.3 0.0 - 4.0 03/21 [facility] s /2020 [facility] HEMATOLOGY Basophils 1.2 0.0 - 1.0 03/21 [facility] HEMATOLOGY Neutrophils 4.3 1.5 - 8.1 03/21 [facility] s # /2020 [facility] HEMATOLOGY Lymphocytes 1.7 1.0 - 5.5 03/21 [facility] s # /2020 [facility] HEMATOLOGY Monocytes # 0.4 0.0 - 0.8 03/21 [facility] s /2020 [facility] HEMATOLOGY Eosinophils 0.1 0.0 - 0.5 03/21 [facility] s # /2020 [facility] HEMATOLOGY Basophils # 0.1 0.0 - 0.2 03/21 [facility] s /2020 [facility] PARATHYROID Ca Ion WB 1.14 1.05 - 03/21 [facility] PROFILE [address].25 [facility] PARATHYROID Ca Norm WB 1.15 1.05 - 03/21 [facility] PROFILE 1.25 [facility] IMMUNOLOGY Coronavirus Not Detected Not 03/20 [place] (COVID-19) (03/20/20 5:50 PM) Detected Pa [facility] HEMATOLOGY Sed Rate 5 0 - 20 03/[address] IMMUNOLOGY HIV Ag/Ab Negative Negative 03/20 [facility] 4th Gen *NA* /2019 [facility] (03/20/20 1:47 PM) Center IMMUNOLOGY Treponemal Non-Reactive Non 03/20 [place] *NA* [facility] (03/20/20 1:47 PM) [place] IMMUNOLOGY C-REACTIVE 3.3 <=2.9 mg/L 03/20 [facility] s PROTEIN /2019 [facility] IMMUNOLOGY Hep Bs Ag Negative Negative 03/20 [facility] *NA* /2019 Medical (03/20/20 1:47 PM) Center IMMUNOLOGY Hep C Ab Negative Negative 03/20 [facility] *NA* /2019 [facility] (03/20/20 1:47 PM) Center IMMUNOLOGY Hep B Core Negative Negative 03/20 [place] IgM *NA* /2019 [facility] (03/20/20 1:47 PM) Center IMMUNOLOGY Hep A IgM Negative Negative 03/20 [facility] *NA* /2019 Medical (03/20/20 1:47 PM) Center CHEM PANEL Magnesium 2.0 1.8 - 2.4 03/[address] [facility] CHEM PANEL Glucose Lvl 102 70 - 99 03/20 [facility]2019 [facility] CHEM PANEL BUN 13 7 - 22 03/20 [facility]2019 [facility] CHEM PANEL Creatinine 0.68 0.50 - 03/20 [facility] Lvl [address].40 [facility] CHEM PANEL Sodium Lvl 140 135 - 145 03/[address] CHEM PANEL Potassium 3.3 3.5 - 5.1 03/20 [facility] CHEM PANEL Chloride Lvl 107 95 - 109 03/20 [facility] CHEM PANEL CO2 24 24 - 32 03/20 [facility]2019 [facility] CHEM PANEL AGAP 12.3 10.0 - 03/[address] [facility] [address] [facility] CHEM PANEL Calcium Lvl 8.8 8.5 - 10.5 03/20 [facility] CHEM PANEL eGFR 99 03/20 Result Comment: The Medical eGFR is Center [...] multiplied by the estimated BMI. CHEM PANEL Phosphorus 2.5 2.5 - 4.5 03/20 [facility]2019 [facility] HEMATOLOGY Hgb 13.8 12.0 - 03/[address] [facility] [address] [facility] HEMATOLOGY WBC 9.5 3.7 - 10.4 03/[address] HEMATOLOGY RBC 4.25 4.20 - 05 [place] 5.40 /2019 [facility] HEMATOLOGY Hgb 13.5 12.0 - 05 [place] 16.0 /2020 [facility] HEMATOLOGY Hct 40.2 36.0 - 05 [place] 48.0 /2019 [facility] HEMATOLOGY MCV 94.7 80.0 - 03/[address] [place] [address] [facility] HEMATOLOGY MCH 31.7 27.0 - 05 [facility] 31.0 /2019 [facility] HEMATOLOGY MCHC 33.5 32.0 - 05 [place] 36.0 /2019 [facility] HEMATOLOGY RDW 13.2 11.5 - 05 [place] 14.5 /2019 [facility] HEMATOLOGY Platelet 256 133 - [address] HEMATOLOGY MPV 7.2 7.4 - 10.4 03/[address] HEMATOLOGY Segs 75.4 45.0 - 03/[address] [facility] [address] [facility] HEMATOLOGY Lymphocytes 16.6 20.0 - [address] [place] [address] [facility] HEMATOLOGY Monocytes 7.3 2.0 - 12.0 03/[address] HEMATOLOGY Eosinophils 0.1 0.0 - 4.0 03/20 [facility] s /2019 [facility] HEMATOLOGY Basophils 0.6 0.0 - 1.0 03/[address] HEMATOLOGY Neutrophils 7.1 1.5 - 8.1 03/[place] # /2019 [facility] HEMATOLOGY Lymphocytes 1.6 1.0 - 5.5 03/[place] # /2019 [facility] HEMATOLOGY Monocytes # 0.7 0.0 - 0.8 03/[place]2020 [facility] HEMATOLOGY Basophils # 0.1 0.0 - 0.2 03/20 [facility] [place] [address] PARATHYROID Ca Ion WB 1.11 1.05 - 03/[address] [place] [address] [facility] PARATHYROID Ca Norm WB 1.13 1.05 - 03/20 [facility] PRO[address] [facility] CARDIAC Troponin-I 0.10 0.00 - 03/19 Result [facility] ENZYMES 0.40 Comment: Medical Specimen Center Slightly Hemolyzed. DRUG SCREEN U Amph Sc[place] Negative Negative 03[place] *NA* /2019 Medical (03/19/20 12:26 PM) Cente r DRUG SCREEN U [place] Scr Negative Negative 03/[place] *NA* Medical (03/19/20 12:26 PM) Cente r DRUG SCREEN U Benzodiaz Positive Negative 03/19 [place] Scr *ABN* Medical (03/19/20 12:26 PM) Cente r DRUG SCREEN U Cannab Scr Negative Negative 03/19 [place] *NA* Medical (03/19/20 12:26 PM) Cente r DRUG SCREEN U Cocaine Negative Negative 03/19 [place] Scr *NA* Medical (03/19/20 12:26 PM) Cente r DRUG SCREEN U Opiate Scr Positive Negative 03/19 [place] *ABN* Medical (03/19/20 12:26 PM) Cente r DRUG SCREEN U Negative Negative 03/19 [facility] Phencyclidin *NA* Medical e Scr (03/19/20 12:26 PM) Cente r DRUG SCREEN UDS Note See Note 03/19 [facility] (03/19/20 12:26 PM) Medic al Center HEMATOLOGY PT 11.7 12.0 - 03/19 [facility] 14.7 /2019 Medical Center HEMATOLOGY INR 0.86 0.85 - 03/19 [facility] 1.17 Medical Center HEMATOLOGY PTT 20.7 22.9 - 03/19 [facility] 35.8 Medical Center DRUG SCREEN Phencyclidin Negative Negative 03/19 [place] Comment: Medical ScrCutoff:25 Center ng/mL DRUG SCREEN [place] Scr Negative Negative 03/19 Result Comment: Medical ScrCutoff:20 Center ng/mL DRUG SCREEN Cannab Scr Negative Negative 03/19 Result Comment: Medical ScrCutoff:1 Center ng/mL DRUG SCREEN Methadone Negative Negative 03/19 Result Comment: Medical ScrCutoff:20 Center ng/mL DRUG SCREEN Cocaine Scr Negative Negative 03/19 Result Comment: Medical ScrCutoff:20 Center ng/mL DRUG SCREEN Benzodiaz Positive Negative 03/19 Result Comment: Medical ScrCutoff:20 Center ng/mL DRUG SCREEN Amph Scr Negative Negative 03/19 Result Comment: Medical ScrCutoff:20 Center ng/mL DRUG SCREEN Opiate Scr Positive Negative 03/19 Result [facility] s Comment: Medical ScrCutoff:20 Center ng/mL DRUG SCREEN 6-Acetylmor Negative Negative 03/19 Result [facility] Scr Comment: Medical ScrCutoff:300 Center ng/mL DRUG SCREEN Benzodiaz Negative Negative 03/19 Result [facility] Qnt Comment: [facility] BENZODIAZEPIN Center ES ConfirmCutoff :5 ng/mL Value:0 DRUG SCREEN Opiate Qnt Positive Negative 03/19 Result [facility] s Comment: [facility] codeine [place] ConfirmCutoff :10 ng/mL Value:51 CHEM PANEL B/C Ratio 22 6 - 25 03/[address] CHEM PANEL ALT 46 0 - 65 03/[address] CHEM PANEL Albumin Lvl 3.7 3.5 - 5.0 03/19 [facility] CHEM PANEL Alk Phos 102 39 - 136 03/[address] CHEM PANEL Total 7.0 6.4 - 8.4 03/19 [facility] CHEM PANEL Globulin 3.3 2.7 - 4.2 03/[address] CHEM PANEL A/G Ratio 1.1 0.7 - 1.6 03/[address] CHEM PANEL AST 47 0 - 37 03/[address] CHEM PANEL Bili Total 1.2 0.2 - 1.3 03/[address] HEMATOLOGY RBC Morph Normal Normal 03/19 [facility] (03/19/20 7:30 AM) [facility] HEMATOLOGY Plt Morph Normal Normal 03/19 [facility] (03/19/20 7:30 AM) [facility] HEMATOLOGY Basophils # 0.1 0.0 - 0.2 03/19 [facility] CARDIAC Troponin-I 0.41 0.00 - 03/[address] [facility] [address] [facility] SPECIAL Hgb A1C 4.9 <=5.6 % 03/19 [facility] CHEMISTRY /[address] [place] [address] CARDIAC Troponin-I 0.52 0.00 - 03/19 Result ENZYMES 0. Comment: [place] Critical Result(s) called to Anna Hutton at 03/19/2020 01:13 by CH. Read back OK. CARDIAC Total CK 198 12 - 191 05/11 [facility] ENZYMES /2019 [place] CHEM PANEL Glucose Lvl 106 70 - 99 05/11 MH /2019 [place] CHEM PANEL BUN 21 7 - 22 05/11 MH [place] CHEM PANEL Creatinine 1.02 0.50 - 05/11 MH Lvl 1.40 /2019 [place] CHEM PANEL Sodium Lvl 139 135 - 145 05/11 MH [place] CHEM PANEL Potassium 3.8 3.5 - 5.1 05/11 MH Lvl /2019 [place] CHEM PANEL Chloride Lvl 107 95 - 109 05/11 MH [place] CHEM PANEL CO2 24 24 - 32 05/11 MH /2019 [place] CHEM PANEL Calcium Lvl 9.1 8.5 - 10.5 05/ MH [place] CHEM PANEL Total 7.4 6.4 - 8.4 05/ MH Protein /2019 [place] CHEM PANEL Albumin Lvl 3.9 3.5 - 5.0 05/ MH [place] CHEM PANEL ALT 48 0 - 65 05/11 MH [place] CHEM PANEL AST 44 0 - 37 05/11 MH [place] CHEM PANEL Alk Phos 106 39 - 136 05/11 MH [place] CHEM PANEL Bili Total 1.1 0.2 - 1.3 05/11 MH /2019 [place] CHEM PANEL AGAP 11.8 10.0 - 05/11 MH 20.0 /2020 [place] CHEM PANEL B/C Ratio 21 6 - 25 05/ MH [place] CHEM PANEL Globulin 3.5 2.7 - 4.2 05/ MH [place] CHEM PANEL A/G Ratio 1.1 0.7 - 1.6 05/ MH [place] CHEM PANEL eGFR 62 05/11 Result Comment: The [place] eGFR is calculated using the CKD-EPI formula. [...] multiplied by the estimated BMI. CHEM PANEL Magnesium 2.1 1.8 - 2.4 05/11 MH Lvl /2019 [place] CHEM PANEL Phosphorus 2.6 2.5 - 4.5 05/11 MH /2019 [place] HEMATOLOGY WBC 11.4 3.7 - 10.4 05/11 MH /2019 [place] HEMATOLOGY RBC 4.44 4.20 - 05/11 MH 5.40 /2019 [place] HEMATOLOGY Hgb 14.7 12.0 - 05/11 MH 16.0 [place] HEMATOLOGY Hct 42.4 36.0 - 05/ MH 48.0 [place] HEMATOLOGY MCV 95.5 80.0 - 05/11 MH 98.0 [place] HEMATOLOGY MCH 33.1 27.0 - 05/11 MH 31.0 [place] HEMATOLOGY MCHC 34.6 32.0 - 05/11 MH 36.0 /2019 [place] HEMATOLOGY RDW 13.0 11.5 - 05/11 MH 14.5 /2019 [place] HEMATOLOGY Platelet 233 133 - 450 05/ MH /2019 [place] HEMATOLOGY MPV 7.1 7.4 - 10.4 05/11 MH /2019 [place] HEMATOLOGY PT 11.5 12.0 - 05/11 MH 14.7 [place] HEMATOLOGY INR 0.84 0.85 - 05/11 MH 1.17 /2019 [place] HEMATOLOGY PTT 27.7 22.9 - 05/11 MH 35.8 [place] HEMATOLOGY Segs 80.1 45.0 - 05/11 MH 75.0 [place] HEMATOLOGY Lymphocytes 13.1 20.0 - 05/11 MH 40.0 [place] HEMATOLOGY Monocytes 6.2 2.0 - 12.0 05/11 MH /2019 [place] HEMATOLOGY Basophils 0.6 0.0 - 1.0 05/11 MH /2019 [place] HEMATOLOGY Neutrophils 9.2 1.5 - 8.1 05/11 MH # /2020 [place] HEMATOLOGY Lymphocytes 1.5 1.0 - 5.5 05/11 MH # /2019 [place] HEMATOLOGY Monocytes # 0.7 0.0 - 0.8 03/19 [place] HEMATOLOGY Basophils # 0.1 0.0 - 0.2 03/19 [place] CHEM PANEL Glucose Lvl 84 70 - 99 08/03 [facility] CHEM PANEL BUN 30 7 - 22 08/03 [facility] CHEM PANEL Creatinine 1.34 0.50 - 08/03 [facility] Lvl 1.40 /2018 [facility] CHEM PANEL Sodium Lvl 138 135 - 145 08/03 [facility] CHEM PANEL Potassium 4.1 3.5 - 5.1 08/[address] [facility] [address] [facility] CHEM PANEL Chloride Lvl 103 95 - 109 08/03 [facility] CHEM PANEL CO2 28 24 - 32 08/[address] [facility] CHEM PANEL Calcium Lvl 8.9 8.5 - 10.5 08/03 [facility] CHEM PANEL AGAP 11.1 10.0 - 08/[address] [facility] CHEM PANEL B/C Ratio 22 6 - 25 08/03 [facility] CHEM PANEL eGFR 45 08/03 [facility] Comment: The Medical eGFR is Center [...] PANEL ALT 20 0 - 65 08/03 [facility] CHEM PANEL Albumin Lvl 3.6 3.5 - 5.0 08/03 [facility] CHEM PANEL Alk Phos 83 39 - 136 08/03 [facility] CHEM PANEL Bili Total 0.6 0.2 - 1.3 08/03 [facility] CHEM PANEL Total 6.3 6.4 - 8.4 08/[address] [facility] Protein [facility] CHEM PANEL AST 20 0 - 37 08/03 [facility] CHEM PANEL Globulin 2.7 2.7 - 4.2 08/03 [facility] CHEM PANEL A/G Ratio 1.3 0.7 - 1.6 08/[address] [facility] BLOOD BANK ABO/Rh O NEG 08/[address] [facility] [address] [facility] BLOOD BANK Antibody Negative 08/03 [facility] RESULTS Scrn (08/03/19 10:26 AM) [facility] CHEM PANEL Glucose Lvl 84 70 - 99 08/03 [facility] CHEM PANEL BUN 30 7 - 22 08/[address] [facility] CHEM PANEL Creatinine 1.33 0.50 - 08/03 [facility] [address] [facility] CHEM PANEL Sodium Lvl 135 135 - 145 08/03 [facility] CHEM PANEL Potassium 5.0 3.5 - 5.1 08/03 Result [facility] Comment: [facility] Center Slightly Hemolyzed.

Specim en Icteric. CHEM PANEL Chloride Lvl 102 95 - 109 08/03 [facility] CHEM PANEL CO2 26 24 - 32 08/03 [facility]2018 [facility] CHEM PANEL Calcium Lvl 8.9 8.5 - 10.5 08/03 [facility] CHEM PANEL AGAP 12.0 10.0 - 08/[address] [place] [address] [facility] CHEM PANEL B/C Ratio 23 6 - 25 08/[address] [facility] CHEM PANEL eGFR 45 08/03 Result [...] PANEL ALT 23 0 - 65 08/03 [facility] CHEM PANEL Albumin Lvl 4.0 3.5 - 5.0 08/[address] [place] [address] [facility] CHEM PANEL Alk Phos 92 39 - 136 08/03 [facility] CHEM PANEL Bili Total 0.7 0.2 - 1.3 08/03 [facility] CHEM PANEL Total 6.8 6.4 - 8.4 08/[address] [facility] CHEM PANEL AST 30 0 - 37 08/[address] [facility] CHEM PANEL Globulin 2.8 2.7 - 4.2 08/03 [facility] CHEM PANEL A/G Ratio 1.4 0.7 - 1.6 08/03 [facility] HEMATOLOGY WBC 4.0 3.7 - 10.4 08/03 [facility] HEMATOLOGY RBC 3.67 4.20 - 08/[address] [place] [address] [facility] HEMATOLOGY Hgb 12.1 12.0 - 08/[address] [place] [address] [facility] HEMATOLOGY Hct 35.1 36.0 - 08/[address] [place] [address] [facility] HEMATOLOGY MCV 95.5 80.0 - 08/[address] [facility] [address] [facility] HEMATOLOGY MCH 33.1 27.0 - 08/[address] [place] [address] [facility] HEMATOLOGY MCHC 34.6 32.0 - 08/[address] [place] [address] [facility] HEMATOLOGY RDW 12.5 11.5 - 08/[address] [facility] [address] [facility] HEMATOLOGY Platelet 179 133 - 450 08/03 [facility]2018 [facility] HEMATOLOGY MPV 7.4 7.4 - 10.4 08/[address] HEMATOLOGY PT 12.6 12.0 - 08/[address] [facility] HEMATOLOGY INR 0.96 0.85 - 08/[address] [place] [address] [facility] HEMATOLOGY PTT 32.8 22.9 - 08/03 [place] 35.8 /2018 [facility] HEMATOLOGY Segs 39.7 45.0 - 08/[address] [facility] [address] [facility] HEMATOLOGY Lymphocytes 44.0 20.0 - 08/03 [place] 40.0 /2018 [facility] HEMATOLOGY Monocytes 8.8 2.0 - 12.0 08/03 [facility] HEMATOLOGY Eosinophils 6.4 0.0 - 4.0 08/03 [facility] s /2018 [facility] HEMATOLOGY Basophils 1.1 0.0 - 1.0 08/03 [facility] /2018 [facility] HEMATOLOGY Neutrophils 1.6 1.5 - 8.1 08/03 [facility] s # /2018 [facility] HEMATOLOGY Lymphocytes 1.8 1.0 - 5.5 08/03 [facility] s # /2018 [facility] HEMATOLOGY Monocytes # 0.4 0.0 - 0.8 08/03 [facility] s /2018 [facility] HEMATOLOGY Eosinophils 0.3 0.0 - 0.5 08/03 [facility] s # /2018 [facility] SPECIAL Hgb A1C 5.1 <=5.6 % 08/[address] [facility] [address] [facility] Pathology Reports No Data Provided for This Section Diagnostic Reports Report Value Date Source Brain w/wo contrast PROCEDURE INFORMATION: 05/03/2020 OP ID [place] MRI Exam: MR Head Without and With Contrast Exam date and time: 05/03/2020 3:40 PM Age: 54 years old Clinical indication: Posterior reversible enceph alopathy syndrome; Additional info: /i67.83 posterior reversible encephalopath y syndrome TECHNIQUE: Imaging protocol: MR of the head without and wit h intravenous contrast. 3D rendering: MIP and/or 3D reconstructed images were created by the technologist. Contrast material: DOTAREM; Contrast vol ume: 6 ml; Contrast route: INTRAVENOUS (IV); COMPARISON: BRAIN W-WO CONTRAST MRI 03/20/2020 5:10 AM compar rosalia is made to the prior CT study of April 12 and April 24, 2020 FINDINGS: Brain: There is encephalomalacia/infarct ion/subcortical gliosis of the lateral left cerebella hemisphere both the superior and inferior. There is normal appearance of the vermis and right hemisphere. There is no cerebellar tonsillar ectopia. Sellar and parasellar structures are normal. There is no enhancing intraparenchymal o r leptomeningeal abnormality. There is normal enhancement/flow in the dural sinuses cor tical veins and deep venous system. There is normal enhancement of the joseph nous sinus. There is normal flow from the 4th portions of herminio th vertebral arteries, the basilar artery and intracranial carotid arteries . Ventricles: Normal. No ventriculomegaly. Bones/joints: There is a left occipital cranioto my. There is no pseudomeningocele formation. Sinuses: Normal as visualized. No acute sinusiti s. Mastoid air cells: Normal as visualized. No mast oid effusion. Orbits: Unremarkable. Soft tissues: Unremarkable. IMPRESSION: Encephalomalacia/subcortical gliosis of the left lateral cerebellar hemisphere is present. Patient is status post a occipital c raniotomy. There is no pseudomeningocele formation. There is no acute cortical infarct, parenchymal hemorrhage or an enhancing intra-axial mass. There is no diffusion abnormal ity or edema. Ottoniel Quintanilla MD On 05/03/2020 17:45:51; VR-B [id number] Chest 1view DX PROCEDURE INFORMATION: 04/24/2020 [facility] Exam: XR Chest, 1 View Exam date and time: 04/24/2020 10:33 PM Age: 54 years old Clinical indication: /ams TECHNIQUE: Imaging protocol: XR of the chest Views: 1 view. COMPARISON: CHEST 1VIEW DX 03/19/2020 12:44 AM FINDINGS: Lungs: Mild decreased lung volumes. No consolida tion. Pleural space: Unremarkable. No pleural effusion . No pneumothorax. Heart/Mediastinum: Heart siz e is within normal limits. Aortic stent graft shows stable position. Bones/joints: Right shoulder arthroplasty is inc ompletely imaged. IMPRESSION: No acute cardiopulmonary findings. Johnny Bush MD On 04/24/2020 23:21:42; VR-WHWAN [id number] Brain wo contrast CT Radiation Dose CTDIVOL = 0 (mGy): DLP = 882.44 (mGy-cm) 04/24/2020 [facility] PROCEDURE INFORMATION: Exam: CT Head Without Contrast Exam date and time: 04/24/2020 10:02 PM Age: 54 years old Clinical indication: Condition or disease; Other : Recent brain bleed/feeling weak, falling today; Additional info: /feels wemahendra k, prior intracranial hemorrhage TECHNIQUE: Imaging protocol: Computed tomography of the hea d without contrast. Radiation optimization: All CT scans at this facility use at least one of these dose optimization techniques: automated exposure control; mA and/or kV adjustment per patient size (includes targeted e xams where dose is matched to clinical indication); or iterative reconstructio n. COMPARISON: BRAIN W CONTRAST CT 04/12/2020 3:09 PM RADIATION DOSE METRICS: Total DLP (mGy-cm): 882.44 FINDINGS: Brain: No significant pseudomeningocele at the c raniectomy site. Interval progression of encephalomalacic changes within t he left lateral/inferior cerebellum. No brain parenchymal contusion or ed alberta. No acute transcortical infarct. No intracranial mass. No intracranial h emorrhage or other fluid collection. No significant white matter disease. No significant effacement of the basal cisterns or foramen magnum. Ventricles: No hydrocephalus. Bones/joints: Left lateral suboccipital craniect rebecca. No suspicious erosive, lytic, or sclerotic changes along the craniotomy margins or elsewhere along the calvarium or skull base. No acute fracture of th e calvarium or skull base. Sinuses: No significant paranasal sinus fluid or mucosal thickening. Mastoid air cells: No significant fluid in the i lorraine mastoid air cells. Soft tissues: No significant superficial soft ti ssue contusion. IMPRESSION: 1. Lateral suboccipital craniectomy with expected evolution of left cerebellar encephalomalacic changes. 2. No definite CT evidence of acute intracranial abnormality. 3. No acute calvarial or skull base fracture. COMMENTS: MR is more sensitive for sub tle intracranial abnormality and may be helpful for further assessment if clinically appropriate. Arjun Tapia MD On 04/24/2020 22:52:02; VR-SN [id number] Brain w contrast CT Radiation Dose CTDIVOL = 0 (mGy): DLP = 355.15 (mGy-cm) 04/12/2020 [facility] PROCEDURE INFORMATION: Exam: CT Head With Contrast Exam date and time: 04/12/2020 3:09 PM Age: 54 years old Clinical indication: Posterior reversible enceph alopathy syndrome; Additional info: /i67.83 posterior reversible encephalopath y syndrome TECHNIQUE: Imaging protocol: Computed tomography of the hea d with intravenous contrast. Radiation optimization: All CT scans at this facility use at least one of these dose optimization techniques: automated exposure control; mA and/or kV adjustment per patient size (includes targeted e xams where dose is matched to clinical indication); or iterative reconstructio n. 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 There is no longer edema within the bilateral parietal and left occipital lobe. Resolu tion of the previous PRES. There is no abnormal enhancement. There is normal va scular enhancement the 4th portions of both vertebral arteries, the basilar art reina and intracranial carotid arteries. There is no acute cortical i nfarct, parenchymal hemorrhage or intra axial mass. Sellae and para sellae structures are normal for age. There is no tonsillar ectopia.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 Beer, Wine. Employment/School Status: Unemployed. Exercise 1 Substance Abuse Use: None. Smoking Status Current every day smoker; Type: Cigarett es; Previous treatment: None; Exposure to Tobacco Smoke None; Cigarette Smoking Last 365 Days Yes; Reg Smoking Cessation Counseling No; Tobacco use per day: 4; Number of years: 25; 2 entered on: 04/24/20 Family History No Data Provided for This Section Advance Directives No Data Provided for This Section Functional Status No Data Provided for This Section
--- OUTSIDE RECORDS SUMMARY | 2020-09-26 17:36 | XMS REPORT | Continuity of Care Document ---
:1965 [facility] t Address [address] [place] [address] [address] [place] [address] Care Team Providers Name Role Phone Roman España MD Primary Care Physician Lab, Fam Pob I Attending Clinician Unavailable Doctor Unassigned, Name Attending Clinician Unavailable Amelia MAXWELL Attending Clinician Abel CRUM Attending Clinician Unavailable Martin TAYLOR Attending Clinician Ramon FABIAN Attending Clinician Aftab TAYLOR M. Attending Clinician Abelardo Riddle MD Attending Clinician Andres Tompkins NP Attending Clinician Theresa Calix Attending Clinician Jluis Attending Clinician Valarie Attending Clinician Ebony Attending Clinician Alfonzo Pierre Attending Clinician Jeremy Attending Clinician AFTAB Admitting Clinician Unavailable Sara Colon Admitting Clinician Payers Payer Name Policy Type Policy Effective Date Expiration Date Sour ce Number UHC MEDICAREUHC [id number] 2017 [place] DUAL COMPLETE 00:00:00 Worship [id number] Problems Condition Condition Condition Status Onset Resolution Last Treating Co mments Source Name Details Category Date Date Treatment Clinician Date Hypertroph Hypertroph Disease Active [place] y of bone, y of bone, 8-13 Me thodi right right 00:00: st humerus humerus 00 WEAKNESS Diagnosis Active 2020-05-03 M emoria 6-16 17:07:00 l WEAKNESS 21:30: Salvatore n 00 Active 04/24/2020 [facility] Mohan CONVULSION Diagnosis Active 2020-03-19 Memoria S 5-11 00:58:00 l 00:00: Mohan CONVULSION 00 S Active 03/19/2020 [facility] Mohan VASOGENIC Diagnosis Active 2020-03-27 Memoria EDEMA 5-10 21:50:00 l NSTEMI 00:00: [place] VASOGENIC 00 EDEMA NSTEMI Active 03/18/2020 [facility] SUPRAVALVU Diagnosis Active 2019-08-05 Memoria LAR AORTIC 9-17 15:44:00 l STENOSIS 00:00: Mohan SUPRAVALVU 00 LAR AORTIC STENOSIS Active 07/26/2019 [facility] I71.0 - Diagnosis Active 2019-06-20 Vt moria DISSECTION 8-05 14:11:00 l OF AORTA I71.0 - 00:01: Donna nn DISSECTION 00 OF AORTA Active 06/13/2019 ANNE MARIE [place] Degenerati Problem Resolve 2020-05-05 Memoria on of d 22:55:07 l lumbar [place] interverte Degenerati bral disc on of (disorder) lumbar interverte bral disc (disorder) Resolved Problem 05/05/2020 [facility], Alfonzo Johnston Depressive Problem Resolve 2020-05-05 Memoria disorder d 22:55:07 l (disorder) Salvatore mazariegos Depressive disorder (disorder) Resolved Problem 05/05/2020 [facility], Alfonzo Johnston Hypothyroi Problem Resolve 2020-05-05 Memoria dism d 22:55:07 l (disorder) Salvatore mazariegos Hypothyroi dism (disorder) Resolved Problem 05/05/2020 [facility], Alfonzo [place] Kidney Problem Resolve 2020-05-05 Mj chadwick disease d 22:55:07 l (disorder) Kidney Herm gabriel disease (disorder) Resolved Problem 05/05/2020 [facility], [place],Alfonzo Johnston Rheumatoid Problem Resolve 2020-05-05 Memoria arthritis d 22:55:07 l (disorder) Salvatore n Rheumatoid arthritis (disorder) Resolved Problem 05/05/2020 [facility],Alfonzo Johnston Anxiety Problem Active 2020-05-05 Mj chadwick (finding) 22:55:07 l Anxiety [place] (finding) Active Problem 05/05/2020 [facility], [place] Hypertensi Problem Active 2020-05-05 M emoria ve 22:55:07 l disorder, Mohan systemic Hypertensi arterial ve (disorder) disorder, systemic arterial (disorder) Active Problem 05/05/2020 [facility], Alfonzo Johnston Impaired Problem Active 2020-05-05 Mem oria mobility 22:55:07 l (finding) Impaired Her bailey mobility (finding) Active Problem 05/05/2020 [facility], Alfonzo Johnston Impaired Problem Active 2020-05-05 Mem oria skin 22:55:07 l integrity Impaired Her bailey (finding) skin integrity (finding) Active Problem 05/05/2020 [facility], Alfonzo Johnston Pain Problem Active 2020-05-05 Memor ia (finding) 22:55:07 l Pain Mohan (finding) Active Problem 05/05/2020 [facility], Alfonzo Johnston Acute Problem 2020-04-27 2020-04-27 M emoria kidney 6- 21:05:58 21:05:58 l failure, Acute 17:00: [place] unspecifie kidney 00 d failure, unspecifie d 04/25/2020 04/27/2020 [facility] Dehydratio Problem 2020-04-27 2020-04-27 Memoria n 6-17 21:05:58 21:05:58 l 17:00: Mohan Dehydratio 00 n 04/25/2020 04/27/2020 [facility] Weakness Problem 2020-04-27 2020-04-27 Memoria 6-17 21:05:58 21:05:58 l Weakness 17:00: Salvatore n 00 04/25/2020 04/27/2020 [place] History of Past Illness Condition Condition Condition Status Onset Resolution Last Treating Co mments Source Name Details Category Date Date Treatment Clinician Date Hematochez Problem Resolve 2020-05-05 2020-05-05 Memoria ia d 08-08 22:55:07 22:55:07 l (finding) 00:00: [place] Hematochez 00 ia (finding) Resolved 08/08/2011 Problem 05/05/2020 [facility], [place],M H OPID [place] Allergies, Adverse Reactions, Alerts Allergy Allergy Status Severity Reaction(s) Onset Inactive Treating Comm ents Source Name Type Date Date Clinician Varenicl Propensi Active GI Severe [place] ine ty to Intolerance 8-13 nausea Metho di adverse 00:00: /vomiting st reaction 00 s to drug Duloxeti Propensi Active Swelling [place] ty to 05-19 Methodi adverse 00:00: st reaction 00 s to drug Quetiapi Propensi Active Swelling [place] ty to 05-19 Methodi adverse 00:00: st reaction 00 s to drug Bupropio Propensi Active Swelling, Become Uri ston n Hcl ty to Other (See 711 Very Method i adverse Comments) 00:00: angry st reaction 00 s to drug Seroquel Seroquel Active Memori a l Mohan Wellbutr Wellbutr Active Memori a in in l [place] BuSpar BuSpar Active Memoria l Mohan Cymbalta Cymbalta Active Memori a l [place] NSAIDs NSAIDs Active Memoria l Mohan Social History Social Habit Start Date Stop Date Quantity Comments Source Sex Assigned At [facility] ethodist Exposure to Not sure [place] Metho dist SARS-CoV-2 (event) Tobacco use and 2020-06-22 2020-06-22 Never used [facility] ethodist exposure 00:00:00 00:00:00 Alcohol intake 2020-06-22 2020-06-22 Ex-drinker [facility] thodist 00:00:00 00:00:00 (finding) Social History 2019-08-03 2019-08-03 [facility] 16:34:[facility] 16:34:49 Smoking Status Start Date Stop Date Source Light tobacco smoker 2020-06-22 00:00:00 Hugo Clarkeist Medications Ordered Filled Start Stop Current Ordering Indication Dosage Frequency Signature Comments Components Source Medication Medication Date Date Medication? Clinician (SIG) Name Name suleiman 2020-0 2020- No 50mg Q.5D Take 1 Uri ston n (INDOCIN) 9-24 10-24 capsule Meth geovani 50 MG 00:00: 23:59 ([address] capsule 00 :00 total) by mouth 2 (two) times a day with meals for 30 days. furosemide 2020-0 Yes 20mg Take 20 mg [place] (LASIX) 40 - by mouth Metho di mg tablet 13:09: as needed. st 55 pantoprazol 2020-0 Yes 40mg QD Take 40 mg Arias e - by mouth Methodi (PROTONIX) 13:09: every st 40 MG EC 55 morning. tablet rOPINIRole 2020-0 Yes 2mg QD Take 2 mg [place] (REQUIP) 2 08-01 by mouth Metho di MG tablet 13:09: nightly. st 55 traZODone 2020-0 Yes 150mg QD Take 150 Uri ston (DESYREL) 9-23 mg by Methodi 50 MG 13:09: mouth st tablet 55 nightly. hydromorPHO 2020-0 Yes acute pain 4mg Q8H Take 4 mg Arias NE - by mouth Methodi (DILAUDID) 13:09: every 8 st 4 MG tablet 55 (eight) hours as needed for moderate pain .acute pain. carvediloL 2020-0 Yes 6.25mg Q.5D Take 6.25 Arias (COREG) 9-23 mg by Methodi 6.25 MG 13:09: mouth 2 st tablet 55 (two) times a day as needed. Take if systolic is >140 atorvastati 2020-0 Yes 20mg QD Take 20 mg Arias n (LIPITOR) 9- by mouth Meth geovani 20 mg 13:09: every st tablet 55 morning. lubiproston 2020-0 Yes 24ug QD Take 24 Uri ston e (AMITIZA) 9-23 mcg by Method i 24 MCG 13:09: mouth st capsule 55 every morning. clonAZEPAM 2020-0 Yes 1mg Q.5D Take 1 mg [place] (KlonoPIN) 08-01 by mouth 2 Met hodi 1 MG tablet 13:09: (two) st 55 times a day as needed for anxiety. vortioxetin 2020-0 Yes 20mg QD Take 20 mg Arias e 08-01 by mouth Methodi (Trintellix 13:09: every st ) 20 mg 55 morning. tablet hydrALAZINE 2020-0 Yes 25mg Take 25 mg Arias (APRESOLINE 08-01 by mouth Meth geovani ) 25 MG 13:09: as needed. st tablet 55 tiZANidine 2019-0 2020- No 2mg Q8H Take 1 [place] (ZANAFLEX) 08-01 tablet (2 Met hodi 2 MG tablet 00:00: 23:59 mg total) st 00 :00 by mouth every 8 (eight) hours as needed for muscle spasms for up to 30 days. lidocaine 2019-0 2020- No 1{patch QD Place 1 [place] (LIDODERM) 07-13 } patch on Meth geovani 5 % 00:00: 23:[address] 00 :00 daily for 30 days. Remove & Discard patch within 12 hours or as directed by HYDROcodone 2019-0 2020- No acute pain 1{tbl} Q6H Take 1 Arias -acetaminop 06-23- tablet by Me sandor bazan (NORCO) 00:00: 23:[address] 5-325 mg 00 :00 every 6 per tablet (six) hours as needed for severe pain for up to 10 days .acute pain. Max Daily Amount: 4 tablets traMADoL 2019-0 2020- No acute pain 50mg Q6H Take 1 Arias (Ultram) 50 -23 06- tablet (50 M ethodi mg tablet 00:00: 23:59 mg total) st 00 :00 by mouth every 6 (six) hours as needed for moderate pain for up to 10 days .acute pain. methocarbam 2020-0 Yes 500mg Q.25D Take 1 [place] oL - tablet Methodi (Robaxin) 00:00: ([address] 500 MG 00 total) by tablet mouth 4 (four) times a day as needed for muscle spasms. celecoxib 2019-0 2020- No 100mg Q.5D Take 1 [place] (CeleBREX) 8-13 09-12 capsule Metho di 100 MG 00:00: 23:59 ([address] capsule 00 :00 total) by mouth 2 (two) times a day for 30 days. gabapentin 2019- No 300mg [id number] Take 1 Arias (NEURONTIN) 06-21 [id number] capsule Methodi 300 mg 00:00: 23:59 3D ([address] capsule 00 :00 total) by mouth 3 (three) times a day for 30 days. traMADoL 2019- No acute pain 50mg Q4H Take 1 Arias (ULTRAM) 50 06-21 tablet (50 M ethodi mg tablet 00:00: 23:59 mg total) st 00 :00 by mouth every 4 (four) hours as needed for moderate pain for up to 10 days .acute pain. indomethaci 2019- No 75mg Q.5D Take 1 Uri ston n SR 06-21 capsule Methodi (INDOCIN 00:00: 00:00 ([address] SR) 75 mg 00 :00 total) by CR capsule mouth 2 (two) times a day with meals for 42 days. lisinopril 2020- No 20mg Take 20 mg Arias (PRINIVIL,Z 06-07-30 by mouth. Vt thodi ESTRIL) 40 17:03: 00:00 st mg tablet 31 :00 HYDROcodone 2020- No 1{tbl} Take 1 H christiano -acetaminop 06-07-30 tablet by Vt sandor hen (NORCO) 13:15: 00:[address] 7.5-325 mg 36 :00 per tablet citalopram 2019- No 20mg Take 20 mg Arias (CeleXA) 20 7-30 07-30 by mouth. Me thodi MG tablet 13:14: 00:00 st 54 :00 amLODIPine 2019- 2020- No 5mg Take 5 mg H christiano (NORVASC) 5 06-07 07-30 by mouth. Me thodi mg tablet 13:14: 00:00 st 44 :00 Sodium 2020-0 No 1,000 mL, Memori a Chloride 6-17 1000 l 0.9% 05:02: ml/hr, Mohan (Bolus) IV 00 Infuse Over: 1 hr, Route: IV, 1,000, Drug form: INJ, ONCE, Priority: STAT, Dosing Weight 56.002 kg, Start date: 04/25/20 0:02:00 CDT, Stop date: 04/25/20 0:02:00 CDT, 0 Benadryl 2019-0 No Notes: Memoria 5-14 (Same as: l 18:01: Benadryl) Phenergan 2019-0 No Notes: Memori a 5-14 (Same as: l 18:01: Phenergan) carvedilol 2019-0 Yes 3.125 mg = M emoria 3.13 MG 5-14 1 tab, PO, l Oral Tablet 15:32: BID, # 60 H ermann [Coreg] 00 tab, 0 Refill(s) lisinopril 2019-0 Yes 20 mg = 1 Me moria 20 mg oral 5-14 tab, PO, l tablet 15:31: Daily, # [place] 00 90 tab, 3 Refill(s) gabapentin 2019-0 No Notes: Memor ia 300 MG Oral 5-14 (Same as: l Capsule 02:00: Neurontin) Herm gabriel 00 Acetaminoph 2019-0 Yes 1,000 mg = Memoria en 500 MG 5-13 2 tab, PO, l Oral Tablet 23:22: Q6Hnow, 0 H ermann 00 Refill(s) gabapentin 2019-0 Yes 300 mg = 1 M emoria 300 MG Oral 5-13 cap, PO, l Capsule 23:22: Q12H, # 60 Herm gabriel 00 cap, 0 Refill(s) lisinopril 2019-0 No 20 mg = 1 Me moria 20 mg oral 5-13 tab, PO, l tablet 23:13: Daily, # [place] 00 90 tab, 3 Refill(s) carvedilol 2019-0 No 12.5 mg = Me moria 12.5 mg 5-13 1 tab, PO, l oral tablet 23:13: Q12H, # 90 Mohan 00 tab, 1 Refill(s) Valproic 2020-0 Yes 500 mg = 2 Mem oria Acid 250 MG 5-13 cap, PO, l Oral 23:13: BID, # 90 Mohan Capsule 00 cap, 0 Refill(s) Tylenol 2019-0 No Notes: Max Mj chadwick 5-13 acetaminop l 23:00: hen 4000 Mohan 00 mg/day (4 gm/day). (Same as: Tylenol Extra Strength) Hydromorpho No Notes: Mj chadwick ne 5-13 (Same as: l 22:18: Dilaudid) [place] 00 Lisinopril 0 No Notes: Memor ia 5-13 (Same as: l 19:48: Prinivil, [place] 00 Zestril) Lidocaine Yes Notes: Memori a Hydrochlori 5-13 (Same as: l de 10 MG/ML 15:11: Xylocaine) [place] Injectable 00 Solution Versed No Notes: Memoria 5-13 (Same as: l 15:11: Versed) [place] 00 MEDICATION WASTE Product Size: 2 mg Product Wasted: ___ mg Lisinopril No Notes: Memor ia 5-13 (Same as: l 14:00: Prinivil, [place] 00 Zestril) Lisinopril No Notes: Memor ia 5-13 (Same as: l 11:54: Prinivil, Mohan 00 Zestril) carvedilol No Notes: Memor ia 5-13 Give with l 02:00: food. Mohan 00 (Same As: Coreg) Valproic No Notes: Memoria Acid 250 MG 5-12 (Same As: l Oral 22:00: Depakene) [place] Capsule 00 (Do Not Crush) Hazardous Drug Group 3:Reproduc tive risk Hazardous Drug -- Refer to safe handling procedure PPE Matrix Hydralazine No Notes: Mj chadwick Hydrochlori 5-12 (Same as: l de 50 MG 21:52: Apresoline Her bailey Oral Tablet 00 ) May interfere w/enteral feedings Take With Food Iohexol No Notes: Memoria 5-12 (same l 17:51: as:Omnipaq [place] 00 ue 350). WASTE: F/P - Black; E - Municipal Trash Bin Lisinopril No Notes: Memor ia 5-12 (Same as: l 14:46: Prinivil, [place] 00 Zestril) carvedilol 2020-0 No Notes: Memor ia 5-12 Give with l 14:00: food. [place] 00 (Same As: Coreg) Lovenox 2019-0 No Notes: Memoria 5-12 (Same as: l 14:00: Lovenox) Mohan Potassium 2019-0 No Notes: Memori a Chloride -12 (Same as: l 07:56: KCL) Infuse no faster than 10 mEq/hr if given peripheral ly. sodium 2019- No Notes: Memoria phosphate -12 Infuse l 07:56: over 4 Mohan 00 hour. Do not infuse phosphorou s concurrent ly in the same line as TPN or IVF that contains calcium. For double lumen central lines, phosphorou s may be infused in a separate lumen from TPN. potassium 2019- No Notes: Memori a phosphate - (Same as: l 07:56: K [place] 00 Phosphate. ) Do not infuse phosphorou s concurrent ly in the same line as TPN or IVF that contains calcium. For double lumen central lines, phosphorou s may be infused in a separate lumen from TPN. 1 mMol phoshate has 1.47 mEq potassium Infuse over 4 hours potassium 2019- No Notes: Memori a phosphate-s - (Same as: l odium 07:56: Phos-NaK) Mohan phosphate 00 Each 1.5 250 mg-280 gm pkt has mg-160 mg 250mg oral powder phosphorou for s. Mix reconstitut w/2.5oz ion water and stir. Magnesium No Notes: Memori a Sulfate - WASTE: F/P l 07:56: - Sink; E - Municipal Trash Bin Magnesium 2019-0 No Notes: Memori a Oxide -12 (Same as: l 07:56: Mag-Ox Mohan 00 400) Magnesium oxide 807hi=344a g elemental magnesium Dose=____m g magnesium oxide (___mg elemental magnesium) Calcium 2019-0 No Notes: Memoria Gluconate -12 WASTE: F/P l 07:56: - Sink; E [place] 00 - Municipal Trash Bin Calcium 2019-0 No Notes: Memoria Carbonate -12 (Same As: l 500 MG 07:56: Tums) Mohan Chewable 00 Calcium Tablet Carbonate 500 mg = 200 mg elemental calcium Dose = mg calcium carbonate ( mg elemental calcium) atorvastati No Notes: Mj chadwick n 5-12 (Same As: l 02:00: Lipitor) ropinirole No Notes: Memor ia 5-12 (Same as: l 02:00: Requip) Dilaudid No Notes: Memoria 5-11 (Same as: l 20:30: Dilaudid) Lisinopril No Notes: Memor ia 5-11 (Same as: l 20:29: Prinivil, Zestril) vortioxetin Yes 20 mg = 1 M emoria e 20 MG 5-11 tab, PO, l Oral Tablet 20:25: Daily, # He rmann [Trintellix 00 90 tab, 0 ] Refill(s) clonazePAM Yes 1 mg = 1 Mem oria 1 mg oral 5-11 tab, PO, l tablet 20:25: TID, PRN 00 Anxiety, # 90 tab, 0 Refill(s) levothyroxi Yes 50 Memori a ne 50 mcg 5-11 microgram l (0.05 mg) 20:25: = 1 tab, Herm gabriel oral tablet 00 PO, QAM, # 90 tab, 0 Refill(s) pantoprazol Yes 40 mg = 1 M emoria e 40 mg 5-11 tab, PO, l oral 20:25: Daily, # Mohan enteric 00 90 tab, 0 coated Refill(s) tablet trazodone No 150 mg = 1 Me moria 150 mg oral 5-11 tab, PO, l tablet 20:25: Bedtime, # Donna nn 00 90 tab, 0 Refill(s) Hydromorpho 2019-0 Yes 4 mg = 1 Me moria ne 5-11 tab, PO, l Hydrochlori 20:25: TID, # 42 H ermann de 4 MG 00 tab, 0 Oral Tablet Refill(s) [Dilaudid] Lexapro No Notes: Memoria 5-11 (Same as: l 17:00: Lexapro) Clonazepam No Notes: Memor ia 5-11 (Same As: l 14:20: KlonoPIN) Hazardous Drug Group 3:Reproduc tive risk Hazardous Drug -- Refer to safe handling procedure PPE Matrix pantoprazol No 20 mg, 1 Me moria e 5-11 tab, l 14:00: Route: PO, Drug form: ECTAB, Daily, Dosing Weight 63.6, kg, Start date: 03/19/20 9:00:00 CDT, Duration: 30 day, Stop date: 04/17/20 9:00:00 CDT Trintellix No 10 mg, 1 Mem oria 5-11 tab, l 14:00: Route: PO, Drug form: TAB, Daily, Dosing Weight 63.6, kg, Start date: 03/19/20 9:00:00 CDT, Duration: 30 day, Stop date: 04/17/20 9:00:00 CDT Hydralazine No Notes: Mj chadwick Hydrochlori 03-19 (Same as: l de 50 MG 13:00: Apresoline Her bailey Oral Tablet ) May interfere w/enteral feedings Take With Food ropinirole No Notes: Memor ia 5-11 (Same as: l 12:42: Requip) Thyroxine No Notes: Memori a 5-11 Take 1 l 12:30: hour before or 2 hours after meal; Enteral feeds may interefere with the absorption of this medication .(Same as:Levothr oid, Synthroid) Acetaminoph No Notes: Do M emoria en 300 MG / 5-11 not exceed l Codeine 11:22: 4gm/day of Herm acetaminop 30 MG Oral hen. Tablet (Same as: [Tylenol Tylenol with with Codeine #3] Codeine # 3) Nitroglycer No Notes: Mj chadwick in -11 (Same l 11:20: as:Nitroqu ick, Nitrostat) "Do Not Crush" Sublingual tablet Ativan No Notes: Memoria 5-11 (Same as: l 11:20: Ativan) Hydralazine No Notes: Mj chadwick 5-11 (Same as: l 10:26: Apresoline ) Push over 5 minutes Keppra 2019- No 1,000 mg, Memori a 5-11 Route: l 10:09: IVPB, Drug Mohan 00 form: INJ, ONCE, Dosing Weight 63.6, kg, Loading Dose, Priority: STAT, Start date: 03/19/20 5:09:00 CDT, Stop date: 03/19/20 5:09:00 CDT Keppra No 1,000 mg, Memori a 5-11 Route: l 10:06: IVPB, Drug form: INJ, ONCE, Dosing Weight 63.6, kg, Loading Dose, Start date: 03/19/20 5:06:00 CDT, Stop date: 03/19/20 5:06:00 CDT Nicardipine No Notes: Mj chadwick 5-11 Same as: l 09:32: Cardene Concentrat ion: (0.2 mg /1 ml ) Morphine No Notes: Memoria 5-11 (Same l 07:02: as:MORPhin e Sulfate) Ondansetron No Notes: Mj chadwick 5-11 (Same as: l 07:02: Zofran) MEDICATION WASTE Product Size: 4 mg Product Wasted: ___ mg Aspirin 2020- No 324 mg, Memoria 5-11 Route: l 06:52: CHEW, Drug form: CHEWTAB, ONCE, Dosing Weight 64.3, kg, Priority: STAT, Start date: 03/19/20 1:52:00 CDT, Stop date: 03/19/20 1:52:00 CDT Ativan No Notes: Memoria 5-11 (Same as: l 05:28: Ativan) ondansetron No Route: IV, Memoria (ANES) 08-03 Drug form: l 22:55: INJ, ONCE, Stop date: 08/03/19 17:55:00 CDT neostigmine No Route: IV, Memoria (ANES) 08-03 Drug form: l 22:55: INJ, ONCE, Stop date: 08/03/19 17:55:00 CDT protamine No Route: IV, Me moria (ANES) 08-03 Drug form: l 22:41: INJ, ONCE, Stop date: 08/03/19 17:41:00 CDT esmolol No Route: IV, Mj chadwick (ANES) 08-03 Drug form: l 22:36: INJ, ONCE, Stop date: 08/03/19 17:36:00 CDT heparin No Route: IV, Mj chadwick (ANES) 08-03 Drug form: l 22:16: INJ, ONCE, Stop date: 08/03/19 17:16:00 CDT vasopressin No Route: IV, Memoria (ANES) + 08-03 Drug form: l sodium 22:16: INJ, ONCE, Donna nn chloride Stop date: (ANES) 08/03/19 mL 17:16:00 CDT lidocaine No Route: IV, Me moria (ANES) 08-03 Drug form: l 21:51: INJ, ONCE, Stop date: 08/03/19 16:51:00 CDT fentaNYL No Route: IV, Mem oria (ANES) 08-03 Drug form: l 21:51: INJ, ONCE, Stop date: 08/03/19 16:51:00 CDT rocuronium No Route: IV, M emoria (ANES) 08-03 Drug form: l 21:51: INJ, ONCE, Stop date: 08/03/19 16:51:00 CDT propofol No Route: IV, Mem oria (ANES) 08-03 Drug form: l 21:51: INJ, ONCE, Stop date: 08/03/19 16:51:00 CDT midazolam 2018- No Route: IV, Me moria (ANES) 08-03 Drug form: l 21:45: SOLN, ONCE, Stop date: 08/03/19 16:45:00 CDT glycopyrrol No Route: IV, Memoria ate (ANES) 08-03 Drug form: l 21:45: INJ, ONCE, Stop date: 08/03/19 16:45:00 CDT norepinephr No Route: IV, Memoria ine (ANES) 08-03 Drug form: l 21:40: INJ, ONCE, Stop date: 08/03/19 16:40:00 CDT ceFAZolin No Route: IV, Me moria (ANES) 08-03 Drug form: l 21:35: INJ, ONCE, Stop date: 08/03/19 16:35:00 CDT Isolyte S No Route: IV, Me moria PH 7.4 08-03 Total l (ANES) 1000 20:30: Volume: Her bailey mL 00 1,000, Start date: 08/03/19 15:30:00 CDT, Stop date: 08/03/19 16:30:00 CDT 11/10 NS No 1,000 mL, Memori a 1,000 mL 08-03 Rate: 100 l 19:31: ml/hr, Infuse over: 10 hr, Route: IV, Dosing Weight 68.001 kg, Total Volume: 1,000, Start date: 08/03/19 14:31:00 CDT, Duration: 30 day, Stop date: 09/02/19 14:30:00 CDT, 1.79, m2, 0 Versed No Notes: Memoria 08-03 Same as: l 18:15: Versed ( Preservati ve Free) MEDICATION WASTE Product Size: 5 mg Product Wasted: ___ mg Versed No Notes: Memoria 08-03 (Same as: l 18:08: Versed) MEDICATION WASTE Product Size: 5 mg Product Wasted: ___ mg Probiotic Yes 1 cap, PO, Me moria Formula 9-25 Daily, 0 l oral 16:26: Refill(s) capsule 00 Magnesium Yes 400 mg, Memor ia Sulfate 9-25 PO, ONCE, l 16:25: 0 Mohan Refill(s) biotin 1000 Yes 1,000 Memor ia mcg oral 9-25 microgram l tablet 16:24: = 1 tab, [place] 00 PO, Daily, # 30 tab, 0 Refill(s) Non-Formula 2018-0 Yes 1 cap, PO, Memoria ry Home 9-25 Daily, l Medication 16:24: Refill(s) He rmann 00 0 Folic Acid Yes 0.4 mg = 1 M emoria 0.4 MG Oral 9-25 tab, PO, l Tablet 16:23: Daily, # [place] 00 100 tab, 0 Refill(s) Vitamin 2018-0 Yes 5,000 Memoria B-12 5000 9-25 microgram l mcg 16:23: = 1 tab, [place] sublingual 00 SL, Daily, tablet 0 Refill(s) Zyrtec 0 Yes 5 mg, Memoria 9-25 Daily, 0 l 16:21: Refill(s) [place] 00 Promethazin Yes 25 mg = 1 M emoria e 9-25 tab, PO, l Hydrochlori 16:14: Q12H, PRN H ermann de 25 MG 00 for motion Oral Tablet sickness, # 60 tab, 0 Refill(s) clonazePAM Yes 1 mg = 1 Mem oria 1 mg oral 9-25 tab, PO, l tablet 16:13: PRN, PRN [place] 00 Anxiety, # 30 tab, 0 Refill(s) rOPINIRole Yes 2 mg = 1 Mem oria 2 mg oral 9-25 tab, PO, l tablet 16:12: Bedtime, # Donna nn 00 90 tab, 1 Refill(s) Trazodone 0 Yes 100 mg = 1 Me moria Hydrochlori 9-25 tab, PO, l de 100 MG 16:11: Bedtime, # He rmann Oral Tablet 00 30 tab, 0 Refill(s) pantoprazol Yes 20 mg = 1 M emoria e 20 mg 9-25 tab, PO, l oral 16:10: Daily, # Mohan enteric 00 30 tab, 1 coated Refill(s) tablet Sodium No 250 mL, Memoria Chloride 9-25 Rate: To l 0.9% 11:00: prime line Mohan (titrate) 00 and flush 250 mL remaining blood products., Dosing Weight 70.1, kg, Route: IV, Total Volume: 250, Start Date: 08/03/19 6:00:00 CDT, Duration: 1 day, Stop date: 08/04/19 5:59:00 CDT, Replace Every: 24 hr, 0 promethazin 2015- Yes 25mg Q6H Take 25 mg Arias remy 02-07 by mouth Methodi (PHENERGAN) 00:00: every 6 st 25 MG 00 (six) tablet hours as needed. Vital Signs Vital Name Observation Time Observation Value Comments Source Systolic blood 2020-06-23 12:07:04 138 mm[Hg] [facility] pressure Diastolic blood 2020-06-23 12:07:04 76 mm[Hg] [facility] pressure Heart rate 2020-06-23 12:07:04 70 /min [place] [facility] Body temperature 2020-06-23 11:21:[address] [facility] Respiratory rate 2020-06-23 11:21:32 15 /min [place] [facility] Oxygen saturation in 2020-06-23 11:21:32 98 /min [place] [facility] Arterial blood by Pulse oximetry Body height 2020-06-21 07:49:00 167.6 cm [place] [facility] Body weight 2020-06-21 07:49:00 66.497 kg [facility] BMI 2020-06-21 07:49:00 23.66 kg/m2 [facility] Systolic (mm Hg) 2020-04-25 08:00:00 [facility] Diastolic (mm Hg) 2020-04-25 08:00:00 [facility] Heart Rate 2020-04-25 08:00:00 [facility] [place] Respitory Rate 2020-04-25 08:00:00 [facility] al [facility]an Temperature Oral (F) 2020-04-25 08:00:00 98.1 F [facility] Systolic (mm Hg) 2020-04-25 04:49:00 M[facility] Diastolic (mm Hg) 2020-04-25 04:49:00 [facility] Respitory Rate 2020-04-25 04:49:00 [facility] Heart Rate 2020-04-25 04:49:00 [facility] Temperature Oral (F) 2020-04-25 04:49:00 97.4 F [facility] Weight 2020-04-25 02:43:00 [facility] Systolic (mm Hg) 2020-04-25 02:43:00 [facility] [place] Diastolic (mm Hg) 2020-04-25 02:43:00 [facility] [place] Heart Rate 2020-04-25 02:43:00 [facility] Respitory Rate 2020-04-25 02:43:00 [facility] Temperature Oral (F) 2020-04-25 02:43:00 97.6 F [facility] Systolic (mm Hg) 2020-03-22 18:00:00 Mj rial Mohan Diastolic (mm Hg) 2020-03-22 18:00:00 [facility] Systolic (mm Hg) 2020-03-22 17:00:00 Mj [facility] Diastolic (mm Hg) 2020-03-22 17:00:00 [facility] Respitory Rate 2020-03-22 17:00:00 [facility] [place] Systolic (mm Hg) 2020-03-22 16:22:00 Mj [facility] Diastolic (mm Hg) 2020-03-22 16:22:00 [facility] Respitory Rate 2020-03-22 15:00:00 [facility] Respitory Rate 2020-03-22 14:00:00 [facility] [place] Temperature Oral (F) 2020-03-22 13:10:00 98.3 F [facility] Temperature Oral (F) 2020-03-22 04:46:00 98.5 F [facility] Temperature Oral (F) 2020-03-22 02:40:00 98.5 F [facility] Height 2020-03-19 10:00:00 170.18 cm [facility] Weight 2020-03-19 10:00:00 [facility] BMI Calculated 2020-03-19 10:00:00 [facility] Temperature Oral (F) 2020-03-19 07:02:00 98 F [facility] Heart Rate 2020-03-19 07:02:00 [facility] Respitory Rate 2020-03-19 07:02:00 [facility] Systolic (mm Hg) 2020-03-19 07:02:00 [facility] [place] Diastolic (mm Hg) 2020-03-19 07:02:00 [facility] Systolic (mm Hg) 2020-03-19 05:41:00 [facility] Diastolic (mm Hg) 2020-03-19 05:41:00 [facility] Height 2020-03-19 05:20:00 167.64 cm [facility] BMI Calculated 2020-03-19 05:20:00 [facility] Weight 2020-03-19 05:20:00 [facility] Systolic (mm Hg) 2020-03-19 05:20:00 [facility] [place] Diastolic (mm Hg) 2020-03-19 05:20:00 [facility] Heart Rate 2020-03-19 05:20:00 [facility] Respitory Rate 2020-03-19 05:20:00 [facility] [place] Temperature Oral (F) 2020-03-19 05:20:00 98.2 F [facility] Respitory Rate 2019-08-04 00:45:00 [facility] Systolic (mm Hg) 2019-08-04 00:45:00 [facility] Diastolic (mm Hg) 2019-08-04 00:45:00 [facility] [place] Respitory Rate 2019-08-04 00:30:00 [facility] Systolic (mm Hg) 2019-08-04 00:30:00 [facility] [place] Diastolic (mm Hg) 2019-08-04 00:30:00 [facility] Respitory Rate 2019-08-04 00:15:00 [facility] Systolic (mm Hg) 2019-08-04 00:15:00 [facility] [place] Diastolic (mm Hg) 2019-08-04 00:15:00 [facility] [place] Height 2019-08-03 16:02:00 167.64 cm [facility] Weight 2019-08-03 16:02:00 [facility] BMI Calculated 2019-08-03 16:02:00 [facility] Height 2019-08-03 02:00:00 170.18 cm [facility] Weight 2019-08-03 02:00:00 [facility] BMI Calculated 2019-08-03 02:00:00 [facility] Procedures Procedure Date / Time Performing Clinician Source Performed XR SHOULDER 2+ VW RIGHT 2020-07-04 13:11:28 Tae Salazar W[facility] CBC WITH PLATELET AND 2020-06-23 04:30:00 CarlsonAna DIFFERENTIAL [place] BASIC METABOLIC PANEL 2020-06-23 04:30:00 Mike Bradford ESTIMATED GFR 2020-06-23 04:30:00 Mike Bradford ethodist CBC WITH PLATELET AND 2020-06-22 04:00:00 Ana Carlson DIFFERENTIAL [place] BASIC METABOLIC PANEL 2020-06-22 04:00:00 Mike Bradford ESTIMATED GFR 2020-06-22 04:00:00 Mike Bradford ethodi SURGICAL PATHOLOGY REQUEST 2020-06-21 13:13:00 Tae Salazar ANAEROBIC CULTURE 2020-06-21 11:31:00 Tae Salazar Me thodist FUNGUS CULTURE 2020-06-21 11:31:00 Tae Salazar Meth odist AEROBIC CULTURE 2020-06-21 11:31:00 Tae Salazar Meth odist AFB CULTURE 2020-06-21 11:31:00 Tae Salazar Meth odist AFB STAIN 2020-06-21 11:31:00 Tae Salazar Meth odist GRAM STAIN 2020-06-21 11:31:00 Tae Salazar Meth odist ANAEROBIC CULTURE 2020-06-21 11:29:00 Tae Salazar Me thodist FUNGUS CULTURE 2020-06-21 11:29:00 Tae Salazar Meth odist AFB CULTURE 2020-06-21 11:29:00 Tae Salazar Meth odist GRAM STAIN 2020-06-21 11:29:00 Tae Salazar Meth odist AFB STAIN 2020-06-21 11:29:00 Tae Salazar Meth odist JOINT FLUID CULTURE 2020-06-21 11:29:00 Tae Salazar CO AN ELECTIVE 2020-06-21 10:47:26 Juancarlos Benítez ethodist ENDOTRACHEAL AIRWAY ARTHROPLASTY, SHOULDER, 2020-06-21 10:24:00 Tae Salazar TOTAL ANESTHESIA PERIPHERAL 2020-06-21 09:14:56 Arben Riddle on Worship BLOCK Abelardo POC GLUCOSE 2020-06-21 06:43:00 Tae Salazar Meth odist COVID-19 QUALITATIVE PCR 2020-06-19 15:10:00 EdilbertoAimee driver Uri luna Worship COVID-19 QUALITATIVE PCR 2020-06-11 13:30:00 Tae Salazar URINE CULTURE 2020-06-08 18:23:00 Naina Longoria URINALYSIS SCREEN AND 2020-06-08 18:23:00 Naina Longoria MICROSCOPY, WITH REFLEX TO CULTURE ECG PRE/POST OP 2020-06-08 18:15:14 Naina Longoria HC COMPLETE BLD COUNT 2020-06-08 18:01:00 Naina Longoria W/AUTO DIFF COMPREHENSIVE METABOLIC 2020-06-08 18:01:00 Naina Longoria PANEL HEMOGLOBIN A1C 2020-06-08 18:01:00 Naina Longoria TYPE AND SCREEN 2020-06-08 18:01:00 Naina Longoria ESTIMATED GFR 2020-06-08 18:01:00 Naina Longoria XR SHOULDER 2+ VW RIGHT 2020-06-06 13:59:37 Tae Salazar Spinal puncture, lumbar, 2020-03-22 03:02:00 [facility] Knee replacement 2014-11-09 00:00:00 [facility] rmann Partial shoulder 2012-11-09 [facility]sup[facility] Arthrectomy of 2011-07-10 05:00:00 [facility] bailey ankle<sup>2</sup> Repair of ruptured 2009-11-09 06:00:00 [facility] Mohan 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 Arthroscopy of knee 2003-11-09 00:00:00 [facility] Mohan Bilateral inguinal hernia 1997-11-09 06:00:00 [facility] repair Destruction of brain tumor 1996-11-09 06:00:00 [facility] Cholecystectomy 1994-11-09 06:00:00 [facility] Her bailey Arteriectomy of aorta 1993-11-09 06:00:00 Aryan Esquivel Arthroplasty of joint of 1993-11-09 06:00:00 Bozena Preston the hand<sup>3</sup> Caesarean [facility] section<sup>4</sup> Plan of Care Planned Activity Planned Date Details Comments Source Future Scheduled 2020-06-09 INFLUENZA VACCINE [place] [facility] 00:00:00 [code = INFLUENZA VACCINE] Future Scheduled 2014 BREAST CANCER [place] Me [facility]odist Test 00:00:00 SCREENING [code = BREAST CANCER SCREENING] Future Scheduled 2014 COLONOSCOPY SCREENING [facility] 00:00:00 [code = COLONOSCOPY SCREENING] Future Scheduled 1985 Screening for [facility] thodist Test 00:00:00 malignant neoplasm of cervix (procedure) [code = 372061352] Encounters Start End Encounter Admission Attending Care Care Encounter Source Date/Time Date/Time Type Type Clinicians Facility Department ID 2020-03-19 Inpatient U [facility] CAR 0132 [facility] H 04:07:00 2020-09-24 2020-09-24 Laboratory Lab, [facility] [id number] 18:30:16 18:50:16 Only Fam Pob I Health [id number] Ziggy 4.2.7.2.686 Professio [phone] nal 0[address] Office [address] One 2020-09-19 2020-09-19 Orders Doctor ADOLPH [id number] 00:00:00 00:00:00 Only Unassigned, CASSIE 350.1.13.10 Carpio [facility] 4.2.7.2.686 [id number] 2020-09-05 2020-09-05 Case Amelia [facility] [id number] 00:00:00 00:00:00 Management Soheila Trinh 350.1.13.10 Misty 4.2.7.2.686 Professio [id number] nal 134 Building 2020-08-01 2020-08-01 Outpatient [facility] [id number] [place] 00:00:00 00:00:00 TAE [address] 2020-07-04 2020-07-04 Outpatient [facility] [id number] [place] 00:00:00 00:00:00 TAE [address] 2020-07-04 2020-07-04 Outpatient WOODY, [facility] [id number] [place] 00:00:00 00:00:00 TAE [address] 2020-06-21 2020-06-23 Inpatient O'DANIEL, [facility] [id number] [place] 00:00:00 00:00:00 MIKE [address] 2020-06-19 2020-06-19 Outpatient WOODY, [facility] [id number] [place] 00:00:00 00:00:00 TAE [address] 2020-06-11 2020-06-11 Outpatient WOODY, [facility] [id number] [place] 00:00:00 00:00:00 TAE [address] 2020-06-08 2020-06-08 Outpatient WOODY, [facility] [id number] [place] 00:00:00 00:00:00 TAE [address] 2020-06-06 2020-06-06 Outpatient WOODY, [facility] [id number] [place] 00:00:00 00:00:00 TAE [address] 2020-06-06 2020-06-06 Outpatient WOODY, [facility] [id number] [place] 00:00:00 00:00:00 TAE [address] 2020-05-03 2020-05-03 Outpatient Fifi, [facility] M[facility] [id number] 15:48:00 23:59:00 Nedra Theresa 2020-04-24 2020-04-25 Outpatient Aznaurova-A [facility] [id number] 21:30:41 03:03:00 nderson, 02 Trina 2020-04-24 2020-04-24 Emergency E [facility]BL [facility] [id number] [facility]BL 21:30:00 21:30:00 2020-04-12 2020-04-12 Outpatient Fifi, [facility] M[facility] [id number] 14:22:00 23:59:00 Nedra Theresa 2020-03-19 2020-03-22 Outpatient Valarie, [facility] [id number] 04:07:00 15:45:00 John 32 2020-03-19 2020-03-19 Outpatient Ebony [facility] [id number] 00:18:53 03:25:00 , Deidre 01 2020-03-19 2020-03-19 Emergency E [facility] [id number] [facility] 00:18:00 00:18:00 2019-08-03 2019-08-03 Outpatient [place] [id number] 10:08:00 23:59:00 w, 00 César M 2019-08-03 2019-08-03 Outpatient [facility] [id number] [facility] 10:08:00 10:08:00 2019-06-20 2019-06-20 Outpatient Jeremy, [facility] M[facility] [id number] 14:02:00 23:59:00 Chik-Albert 00 Results Test Description Test Time Test Comments Results Result Comments Source AFB culture 2020-08-03 00:13:43 Test Item Value Reference Range Interpretation Comme nts AFB culture isolate No growth after 6 weeks of Specimen InformationSpecimen (test code = 543-9) incubation. Source: FluidSpecimen Site: Shoulder: right shoulder 2 [place] MethodistFungus [id number] 00:15:24 Test Item Value Reference Range Interpretation Comments Fungus culture No growth Specimen isolate (test after 4 weeks InformationSp ecimen code = 1441) of Source: FluidSp ecimen incubation. Site: Shoulder: right shoulder 2 [place] MethodistSurgical pathology [id number] 12:16:15 Test Item Value Reference Range Interpretation Comments Case number (test code = [id number]) Surgical pathology See link below for report (test code = PDF Lab Report 2255) Result status (test code This is Final Report = [id number]) for [id number] [place] MethodistAnaerobic [id number] 08:29:47 Test Item Value Reference Range Interpretation Comments Anaerobic No anaerobic Specimen culture isolate organisms InformationS pecimen (test code = isolated. Source: FluidSp ecimen 552) Site: Shoulder: right shoulder 2 [place] MethodistJoint fluid [id number] 18:49:32 Test Item Value Reference Range Interpretation Comments Joint fluid No growth Specimen culture isolate after 4 days. Information Specimen (test code = Source: Joint 1634) FluidSpecimen S ite: Shoulder: right shoulder 1 [place] MethodistAFB [id number] 13:22:08 Test Item Value Reference Range Interpretation Comments AFB stain No acid fast Specimen (test code = bacilli (AFB) InformationSpe cimen 676-7) seen. Source: FluidSp ecimen Site: Shoulder: right shoulder 2 [place] MethodistAerobic [id number] 13:22:08 Test Item Value Reference Range Interpretation Comments Aerobic culture No growth Specimen isolate (test after 3 days. InformationSp ecimen code = 498) Source: FluidSp ecimen Site: Shoulder: right shoulder 2 [place] MethodistFungus [id number] 13:22:08 Test Item Value Reference Range Interpretation Comments Fungus smear No fungi Specimen (test code = observed. InformationSpec imen Source: 1443) FluidSpecimen S ite: Shoulder: right shoulder 2 [place] MethodistGram [id number] 13:22:08Gram stain isolateRare WBC'sNo organisms seen Comment: Specimen InformationSpecimen Source: FluidSpecimen Site: Shoulder: right shoulder 2 [facility] MethodistBasic metabolic [id number] 07:29:30 Test Item Value Reference Range Interpretation Comments Sodium (test code = 2951-2) 139 135- 148 mEq/L Potassium (test code = 2823-3) 4.8 3.5- 5.0 mEq/L Chloride (test code = 2075-0) 106 98- 112 mEq/L CO2 (test code = 2028-9) 19 24- 31 mEq/L L Anion gap (test code = 68835-6) 14@ANIO 7- 15 mEq/L BUN (test code = 3094-0) 26 mg/dL 6-20 H Creatinine (test code = 2160-0) 1.12 mg/dL 0.5-0.9 H Glucose (test code = 2345-7) 103 mg/dL 65-99 H Calcium (test code = 90616-0) 8.8 mg/dL 8.3-10.2 Lab Interpretation (test code = Abnormal 31921-2) [place] MethodistEstimated [id number] 07:29:30 Test Item Value Reference Range Interpretation Comments Estimated GFR (test 55 mL/min/1.73 m2 A Caterg ory Units code = 5488) InterpretationG 1 >=90 Ina l or highG2 60-89 Mildly decrease dG3a 45-59 Mil dly to moderately decr srzejX7j 30-44 Moderately to s everely decreasedG4 15-29 Severe ly decreasedG5 <15 Kidney rose lureThe eGFR was calcul ated using the Chron ic Kidney Disease Epidemiology Collaboration ( CKD-EPI) equation. Interpretation is based on recommendati ons of the National [facility] [place] ey Disease Outcome s Quality Initiat osmany (NKF-KDOQI) pub lished in 2013. Lab Interpretation Abnormal (test code = 59965-6) [place] [facility] and [id number] 06:03:46 Test Item Value Reference Range Interpretation Comments WBC (test code = 02713-6) 5.77 4.50- 11.00 k/uL RBC (test code = 83817-4) 2.92 m/uL 4.2-5.5 L HGB (test code = 718-7) 9.7 g/dL 12-16 L HCT (test code = 4544-3) 29.5 % 37-47 L MCV (test code = 787-2) 101.0 fL 82-100 H MCH (test code = 785-6) 33.2 pg 27-34 MCHC (test code = 786-4) 32.9 g/dL 31-37 RDW - SD (test code = 56.2 fL 37-55 H 07238-1) MPV (test code = 40774-5) 9.7 fL 8.8-13.2 Platelet count (test code 148 150- 400 k/uL L = 14908-1) Nucleated RBC (test code 0.00 /100 WBC = 45526-8) Neutrophils (test code = 62.3 % 39-69 54790-2) Lymphocytes (test code = 28.8 % 25-45 87549-6) Monocytes (test code = 6.8 % 0-10 42659-8) Eosinophils (test code = 1.6 % 0-5 95031-2) Basophils (test code = 0.2 % 0-1 01291-1) Immature granulocytes 0.3 % 0-1 "Immat ure (test code = 27146-8) granul ocytes" (promyelocytes, myelocytes, metamyelocytes) Lab Interpretation (test Abnormal code = 73071-8) Hugo [id number] 10:47:26Juancarlos Benítez CRNA 06/21/2020 10:50 AMAirwayDate/Time: 06/21/2020 10:31 AMPerformed by: Juancarlos Benítez CRNAAuthorized by: Arben Riddle MD Location: ORUrgency: ElectiveAnesthesiologist: Arben Riddle MDResident/SAW BOSS/AA: Juancarlos Benítez HPerformed by: resident/SAW BOSS/AAPreoxygenated with 100% O2: Yes C-spine Precautions Maintained Throughout: Yes Mask Ventilation: Not attemptedFinal Airway Type: Endotracheal airwayFinal Endotracheal Airway: ETTTechnique Used: Direct laryngoscopyDevices/Methods Used in Placement: Intubating styletInsertion Site: OralBlade Type: MillerLaryngoscope Blade/Videolaryngoscope Blade Size: 2ETT Size (mm): 7.0Measured from: LipsETT to Lips (cm): 22Placement Verified by: CO2 detection, direct visualization and equal breath sounds Laryngoscopic view: Grade I - full view of glottisRapid Sequence Induction (RSI): No Modified RSI: Yes Number of Attempts at Approach: 1 Atraumatic intubation. Soft tissue unchanged from baseline.[facility] Peripheral [id number] 09:14:56Arben Riddle MD 06/21/2020 9:16 AMPeripheral BlockDate/Time: 06/21/2020 9:12 AMPerformed by: Arben Riddle MDAuthorized by: Arben Riddle MD Patient Location: Block roomStart Time: 06/21/2020 9:10 AMEnd Time: 06/21/2020 9:13 AMReason for Block: at surgeon's request, post-op pain management Staff: Anesthesiologist: Arben Riddle MDPreprocedure: patient identified, IV checked, site and side verified, risks and benefits discussed, procedure verified, surgical consent complete, patient position confirmed, monitors and equipment checked, pre-op evaluation complete, site marked and timeout performed prior to procedure Peripheral Nerve Block: Patient Position: Left lateral decubitus Prep: Betasept and patient draped Monitoring: Blood pressure monitoring, continuous pulse oximetry and heart rateBlock Type: Brachial plexus and interscaleneLaterality: RightInjection Technique: Catheter insertionProcedures: ultrasound guided and nerve stimulator Ultrasound documentation: Images saved on hard disk and printed/placed in chartLocal Infiltration (See MAR for details): LidocaineLoss of Twitch: 0.5 mANeedle: Needle Type: Pajunk Needle Gauge: 19 G Needle Length: 10 cm Catheter at Skin Depth: 5.5 cmAssessment: Injection Assessment: Visualized needle/local anesthetic surrounding nerve, intermittent aspiration during local anesthetic administration, visualized pertinent vascular structures and nerves, needle tip visualized at alltimes during injection of medication and no symptoms of intraneural/intravenous injection Paresthesia Pain: None Heart Rate Change: No Slow Fractionated Injection: Yes Block outcome: No apparent complications, patient comfortable and patient tolerated procedure wellMedications AdministeredBupivacaine 0.25 % PF (mL), 2 mLropivacaine 0.5 % PF (mL), [facility] [id number] 06:49:50 Test Item Value Reference Range Interpretation Comments POC glucose (test code = 105 mg/dL 65-99 H Ope rator Name: 62106-0) Ananda Sanchez ID: [id number] able : [facility] 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 Negative results must be combined with clinical observations, patient history, and epidemiological information. COVID-19 qualitative Not-Detected Not-Detected PCR result (test code = 99284-8) COVID-19 qualitative See link below for C ase Number: PCR (test code = PDF Lab Report [id number]) Hugo Loza Pre/Post [id number] 15:58:13 Test Item Value Reference Range Interpretation Comments Ventricular rate (test 62 code = 253) Atrial rate (test code = 62 255) CO interval (test code = 150 266) QRSD interval (test code 90 = 260) QT interval (test code = 422 264) QTC interval (test code 428 = 265) P axis 1 (test code = 52 267) QRS axis 1 (test code = 33 268) T wave axis (test code = 59 270) EKG impression (test Normal sinus code = 273) rhythm-Normal ECG-No previous ECGs available-Electronica lly Signed By Severo Anderson MD ([id number]) on 06/09/2020 3:58:11 PM Hugo MethodistType and [id number] 21:41:00 Test Item Value Reference Range Interpretation Comments ABO grouping (test code = 883-9) O Rh type (test code = 13685-5) NEG Antibody screen (gel) (test code = NEG 890-4) Hugo MethodistUrinalysis screen and microscopy, with reflex to culture 2020-06-08 20:59:14 Test Item Value Reference Range Interpretation Comments Specimen site (test code = Clean catch 0211167) Color, UA (test code = 5778-6) Yellow Appearance, UA (test code = Clear 5767-9) Specific gravity, UA (test code = 1.020 1.001-1.035 5811-5) pH, UA (test code = 5803-2) 5.0 5.0-8.5 Protein, UA (test code = 37641-4) Negative Negative Glucose, UA (test code = 27893-4) Negative Negative Ketones, UA (test code = 2514-8) Negative Negative Bilirubin, UA (test code = Negative Negative 5770-3) Blood, UA (test code = 5794-3) Negative Negative Nitrite, UA (test code = 5802-4) Negative Negative Urobilinogen, UA (test code = <2.0 <2.0 08483-1) Leukocyte esterase, UA (test code Negative Negative = 5799-2) Epithelial cells, UA (test code = <1 /HPF 5787-7) WBC, UA (test code = 5821-4) 1 0- 4 /HPF RBC, UA (test code = 99672-4) 1 0- 5 /HPF Bacteria, UA (test code = None seen None seen 74850-8) Yeast, UA (test code = 60684-0) None seen Yeast with pseudohyphae, UA (test None seen code = 80046-9) Hyaline casts, UA (test code = >20 /LPF A 5796-8) Lab Interpretation (test code = Abnormal 81932-2) Hugo MethodistHemoglobin [id number] 20:02:27 Test Item Value Reference Range Interpretation Comments Hemoglobin A1C (test 5.1 % 4-5.6 HbA1c c utoffs for code = 50487-1) diagnosing d iabetes:4.0% - 5.6% = normal 5.7% - 6.4% = increase d risk for diabetes (prediabetes)9> =6.5% = qjxpqxma0Kfjfv for glycemic contro l (ADA 2016)< 7.0% Ta rget for non wilman lts with diabetes. More or less stringent targe ts may be appropriate for individual brennan ents. <7.5% Target for Children and ad olescents with type 1 capo betes. Hugo MethodistComprehensive metabolic [id number] 19:57:58 Test Item Value Reference Range Interpretation Comments Sodium (test code = 138 135- 148 mEq/L 2951-2) Potassium (test code = 4.3 3.5- 5.0 mEq/L 2823-3) Chloride (test code = 101 98- 112 mEq/L 5-0) CO2 (test code = 2027-9) 24 24- 31 mEq/L Anion gap (test code = 13@ANIO 7- 15 mEq/L 95574-7) BUN (test code = 3094-0) 21 mg/dL 6-20 H Creatinine (test code = 1.10 mg/dL 0.5-0.9 H 2160-0) Glucose (test code = 132 mg/dL 65-99 H 2345-7) Calcium (test code = 9.9 mg/dL 8.3-10.2 85150-3) Protein (test code = 6.8 g/dL 6.3-8.3 -[place] n 2885-2) 4.6-7.0 g/dL1 week 4.4-7 .6 g/dL7 months-1y ear 5.1-7 .3 g/dL1-2 years 5.6-7 .5 g/dL>3 years 6.0-8 .0 g/qF17-081 6.3-8 .3 g/dL Albumin (test code = 3.6 g/dL 3.5-5 1751-7) A/G ratio (test code = 1.1 0.7-3.8 1759-0) Alkaline phosphatase 85 U/L 35-104 (test code = 6768-6) AST (test code = 1920-8) 22 U/L 10-35 ALT (test code = 1742-6) 21 U/L 5-50 Total bilirubin (test 0.6 mg/dL 0-1.2 code = 1975-2) Lab Interpretation (test Abnormal code = 50124-4) [place] MethodistUrine [id number] 19:50:21 Test Item Value Reference Range Interpretation Comments Urine culture (test SEE COMMENT Bacteriu chadwick screen code = 9833363) negative. [place] MethodistDRUG [id number] 04:43:00Positive *ABN*(04/24/20 11:43 PM) [facility] HermannDRUG [id number] 04:43:00Negative *NA*(04/24/20 11:43 PM) [facility] [id number] 04:43:00Negative *NA*(04/24/20 11:43 PM) [facility] [id number] 04:43:00Negative *NA*(04/24/20 11:43 PM) [facility] HermannDRUG [id number] 04:43:00Negative *NA*(04/24/20 11:43 PM) [facility] [id number] 04:43:00Positive *ABN*(04/24/20 11:43 PM) [facility] [id number] 04:43:00Negative *NA*(04/24/20 11:43 PM) [facility] [id number] 04:43:00See Note (04/24/20 11:43 PM) [facility]ann[facility] AND [id number] 04:43:00Yellow *NA*(04/24/20 11:43 PM) [facility] [id number] 04:43:00Clear (04/24/20 11:43 PM) [facility] [id number] 04:43:00 Test Item Value Reference Range Interpretation Comments UA Spec Grav (test code = UA Spec 1.012 1 Grav) [facility] [id number] 04:43:00 Test Item Value Reference Range Interpretation Comments UA pH (test code = UA pH) 5.0 1 5.0-8.0 [facility] [id number] 04:43:00Negative *NA*(04/24/20 11:43 PM)[facility] [id number] 04:43:00Negative (04/24/20 11:43 PM) [facility] [id number] 04:43:00Negative (04/24/20 11:43 PM) [facility] [id number] 04:43:00Negative (04/24/20 11:43 PM) [facility] [id number] 04:43:002[facility]annUR[facility] AND [id number] 04:43:001[facility] HermannCARDIAC [id number] 04:12:57878 [facility]annCARDIAC [id number] 04:12:00<0.02[facility] HermannCHEM [id number] 04:12:09905Yclvxhdc HermannCHEM [id number] 04:12:0045 [facility] HermannCHEM WLIXX8731-78-63 04:12:001.99[facility]annCHEM PANEL 2020-04-25 04:12:53945Gouhmkzk HermannCHEM BOBYO3286-15-18 04:12:004.7[facility] HermannCHEM IDRON6852-51-58 04:12:88129Njczjyvd HermannCHEM CGXDY0159-11-91 04:12:0029[facility] HermannCHEM CWNSF6391-79-98 04:12:009.0[facility] HermannCHEM WNUQA7944-07-30 04:12:006.7[facility] HermannCHEM FTSTL8139-60-41 04:12:003.8 [facility] HermannCHEM TTPIF7364-91-24 04:12:0022[facility] HermannCHEM PANEL 2020-04-25 04:12:0019[facility] HermannCHEM KIJMD6817-04-25 04:12:0095[facility] HermannCHEM WKPDO3883-66-25 04:12:000.4[facility] HermannCHEM WBYXU9261-71-42 04:12:0010.7[facility] HermannCHEM MNIQN1630-30-62 04:12:00 Test Item Value Reference Range Interpretation Comments B/C Ratio (test code = B/C Ratio) 23 1 6-25 [facility] HermannCHEM UNRQI0518-63-44 04:12:002.9[facility] HermannCHEM PANEL 2020-04-25 04:12:00 Test Item Value Reference Range Interpretation Comments A/G Ratio (test code = A/G Ratio) 1.3 1 0.7-1.6 [facility] HermannCHEM TILDS3742-74-92 04:12:0028[facility] HermannHEMATOLOGY 2020-04-25 04:12:006.3[facility] RhlbujaEOOMHCIQKO0139-35-73 04:12:003.81[facility] YiznljsDPOAEXMOWZ0483-33-54 04:12:0012.5[facility] HaaiukgEVONFZZARX3575-56-55 04:12:0036.7[facility] VfuviylXLNNTGTPMY3096-60-70 04:12:0096.1[facility] MPFZMUTHBH4352-00-13 04:12:00 Test Item Value Reference Range Interpretation Comments MCH (test code = MCH) 32.8 pg 27.0-31.0 [facility] RkefkzwGBADAHCSJJ7886-72-80 04:12:0034.1[facility] HermannHEMATOLOGY 2020-04-25 04:12:0012.8[facility] EttxlaiHQVGJLBLZB8600-98-95 04:12:18057Tfsorkcy PcwrngdRPHIIHYLCM0676-45-41 04:12:007.8[facility] AoybtskRILAGULTLH9423-36-22 04:12:00 Test Item Value Reference Range Interpretation Comments PTT (test code = PTT) 28.6 s 22.9-35.8 [facility] TwvtzhpODFVJRTKVX1977-14-40 04:12:00 Test Item Value Reference Range Interpretation Comments PT (test code = PT) 12.4 s 12.0-14.7 [facility] KbpbtraZCWQYQRESL7447-09-70 04:12:00 Test Item Value Reference Range Interpretation Comments INR (test code = INR) 0.92 1 0.85-1.17 [facility] KkaoyqmRWBCZENCCC1366-42-74 04:12:0059.7[facility] HermannHEMATOLOGY 2020-04-25 04:12:0029.8[facility] AdhncywIMDPKYEWWJ8189-32-26 04:12:006.8[facility] LiprlslQISBTVGNEZ7250-95-21 04:12:001.7[facility] DpnisviXWUVYGHJLU1646-79-71 04:12:002.0[facility] MuttachGUTLTNMMQG1300-22-34 04:12:003.8[facility] [place] ZBYZJSFRAN9712-34-14 04:12:001.9[facility] UoznbdtZNKPCAVHCH0090-54-56 04:12:000.4 [facility] WmrwznrIBMXHLJCDZ4123-18-10 04:12:000.1[facility] HermannHEMATOLOGY 2020-04-25 04:12:000.1[facility] HermannCHEM MJFBT7086-31-87 08:51:001.9[facility] HermannCHEM DTIVT4874-17-28 08:51:003.7[facility] HermannCHEM CNBBE3264-85-26 08:51:89593Alayedsy HermannCHEM HWBSU9840-01-63 08:51:0015[facility] HermannCHEM ZDKXL8021-31-50 08:51:000.88[facility] HermannCHEM NOBAK6742-48-89 08:51:76910 [facility]annCHEM LULQB9523-22-47 08:51:003.7[facility] HermannCHEM PANEL 2020-03-22 08:51:15231Dszabwod HermannCHEM TYISL8067-04-19 08:51:0024[facility] HermannCHEM TMSWM2653-30-58 08:51:008.6[facility] HermannCHEM XLOAZ9230-27-78 08:51:0013.7[facility] HermannCHEM PGONG0139-74-78 08:51:0074[facility] [place] QBHFAPXLQT6036-61-44 08:51:0034.6[facility] NymuhzbDTCJFLHBKO3743-25-67 08:51:00 52.1[facility] AjyckjvAVPAPQNMPN2922-49-55 08:51:008.0[facility] HermannHEMATOLOGY 2020-03-22 08:51:004.4[facility] XpqpcujZYBNSOLAMJ3677-69-52 08:51:000.9[facility] AkgwlxtTQPIUIGQOB1643-41-88 08:51:001.7[facility] YpbtqywZXSXQMYOUL4497-73-31 08:51:002.6[facility] JgklmuaFFEDLUYMBM2651-84-34 08:51:000.4[facility] [place] LMATESAGKL2010-49-33 08:51:000.2[facility] FmogbetEWIPWRBXJC8875-22-32 08:51:004.9 [facility] NarnubnFSKBTXDRTY6506-81-92 08:51:003.72[facility] HermannHEMATOLOGY 2020-03-22 08:51:0012.2[facility] UbupxomFQIOQBAYQG1028-26-89 08:51:0035.4[facility] LtzivatBAVNGIBUJN1800-14-67 08:51:0095.0[facility] KirhuggQYDPJENDQH7109-66-01 08:51:00 Test Item Value Reference Range Interpretation Comments MCH (test code = MCH) 32.7 pg 27.0-31.0 [facility] ChbmwneBXALRTMOGS4975-65-04 08:51:0034.4[facility] HermannHEMATOLOGY 2020-03-22 08:51:0013.1[facility] PgvhmprCYBZAYRVKK0697-48-57 08:51:09266Cwybqseq KfssjssNNGDFFVPVM2348-91-37 08:51:007.6[facility] HermannPARATHYROID PROFILE 2020-03-22 08:51:001.14[facility] HermannPARATHYROID MYACIXY8855-25-49 08:51:00 1.14[facility] HermannBACTERIAL - MJDWVQPY2666-65-73 17:24:00Negative (03/21/20 12:24 PM)[facility] HermannBODY OWSHOX0776-03-16 17:24:00 Test Item Value Reference Range Interpretation Comments Tube Num CSF (test code = Tube Num CSF) 1 1 [facility] HermannBODY ROITHK5206-64-19 17:24:00Colorless (03/21/20 12:24 PM) [facility]annB[facility] EUXVVZ4142-16-68 17:24:00Clear (03/21/20 12:24 PM)[facility]annB[facility] XGLVOT8965-26-11 17:24:00Colorless (03/21/20 12:24 PM)[facility]annB[facility] AMXSYJ5729-04-40 17:24:000[facility]annB[facility] QZSKNB6621-02-15 17:24:001[facility]annB[facility] PNCXKD0628-55-20 17:24:0064[facility]annB[facility] ZNGCXT8187-60-28 17:24:0031[facility]annB[facility] RAPDMG1339-48-14 17:24:00 Test Item Value Reference Range Interpretation Comments Tube Num CSF (test code = Tube Num CSF) 4 1 [facility]annB[facility] HTEZWU2513-86-79 17:24:00Colorless (03/21/20 12:24 PM) [facility]annB[facility] HEADTI1933-56-43 17:24:00Clear (03/21/20 12:24 PM)[facility]annB[facility] GFAFZO0094-13-52 17:24:00Colorless (03/21/20 12:24 PM)[facility]annB[facility] EWPVTS1962-38-41 17:24:001[facility]annB[facility] TPRKEK8818-42-74 17:24:000[facility]annB[facility] WSBWMQ6376-22-77 17:24:001.9[facility] HermannFUNGAL - PPPTLRNO2570-07-94 17:24:00Negative (03/21/20 12:24 PM)[facility] QDLFUPBBUG5141-01-64 17:24:00Non Reactive (03/21/20 12:24 PM)[facility] ODEFHATWBB7541-66-43 17:24:273531.0[facility] JphjcvoWOHUYCNSWP7053-73-84 17:24:00 1.1[facility] EippfrpPQRQZDAHQP9506-67-61 17:24:62854Tnqefwte HermannIMMUNOLOGY 2020-03-21 17:24:000.5[facility] KhucavgFKISCYRMTH5018-69-87 17:24:0015.4[facility] EatpvezJOZZYIGLTR4269-50-85 17:24:0060.1[facility] NocrcysPVLVLVWKTY6429-96-76 17:24:006.7[facility] OsinvraSHMVDBFCFE7628-01-39 17:24:0012.1[facility] [place] [place] FWAEIWGMII0049-14-67 17:24:0011.3[facility] YqdwckkWTECKDPPML9319-77-05 17:24:00 9.8[facility] HykxphwJNMCQFYXBT5533-69-22 17:24:004.21[facility] HermannIMMUNOLOGY 2020-03-21 17:24:000.47[facility] QifmxprNVCZODGKSA6791-51-60 17:24:000.85[facility] IonaxnaNAUPQPSMPH0252-50-62 17:24:000.79[facility] TxhivwwJMNFULROIN6658-77-45 17:24:000.69[facility] OunzrftXISFBOOTNJ6507-84-39 17:24:007.0[facility] [place] [place] FNVFZVQYJY3546-29-99 17:24:00<0.5[facility] EckthqsUIREBGQSAN4289-58-17 17:24:000.420[facility] HermannMOLECULAR TBTICYPPVG9374-31-25 17:24:00Not Performed 1(03/21/20 12:24 PM)[facility] HermannMOLECULAR ROHXVLUKXO7669-35-71 17:24:00Not Performed 2(03/21/20 12:24 PM)[facility] HermannMOLECULAR DIAGNOSTIC 2020-03-21 17:24:00Negative (03/21/20 12:24 PM)[facility] HermannMOLECULAR HISKDDCCXJ2766-25-10 17:24:00Negative (03/21/20 12:24 PM)[facility] HermannVIRAL - DPGIBEBK5540-88-86 17:24:00Negative (03/21/20 12:24 PM)[facility] HermannCHEM PANEL 2020-03-21 08:30:15517Qqhoxcwv HermannCHEM EWLAN1338-55-72 08:30:0012[facility] HermannCHEM MQGFK6008-10-71 08:30:001.03[facility] HermannCHEM LQRSB6345-06-41 08:30:53295Awthunez HermannCHEM MDYIL8529-94-20 08:30:003.9[facility] HermannCHEM XQQFX2639-71-90 08:30:76315Rpxyytrp HermannCHEM SHXNH0573-04-54 08:30:0026 [facility]annCHEM XAQWO9257-18-38 08:30:009.4[facility] HermannCHEM PANEL 2020-03-21 08:30:0010.9[facility] HermannCHEM ZYOZE7747-90-17 08:30:0061[facility] HermannCHEM MCQPM6710-01-34 08:30:002.0[facility] HermannCHEM GQFXB0654-32-29 08:30:002.6[facility] QtmqimmKJABUTXFDA9950-51-11 08:30:006.6[facility] [place] [place] SONGNGHNLK0892-37-49 08:30:004.11[facility] VgumobzHRNOQXLWNU2420-43-14 08:30:00 13.5[facility] XnocjftKDDRDCNRVG7963-31-26 08:30:0039.7[facility] HermannHEMATOLOGY 2020-03-21 08:30:0096.7[facility] YvgihkfSQIFMCPGAL1079-08-24 08:30:00 Test Item Value Reference Range Interpretation Comments MCH (test code = MCH) 32.8 pg 27.0-31.0 [facility] AxukpzuQZFEJRWHEA5742-55-82 08:30:0033.9[facility] HermannHEMATOLOGY 2020-03-21 08:30:0013.3[facility] DhkqqdlBDEHGFDTBJ7245-32-36 08:30:77472Kfvvmqpc DpptemyFARNFYXHZN6291-05-94 08:30:008.1[facility] YehuvoyZHTFKHDIPD5285-16-57 08:30:00 Test Item Value Reference Range Interpretation Comments PT (test code = PT) 13.5 s 12.0-14.7 [facility] SibbiibFFGELNQXKG4999-26-19 08:30:00 Test Item Value Reference Range Interpretation Comments INR (test code = INR) 1.03 1 0.85-1.17 [facility] QwnxibdVJRQJXTUBQ8400-78-79 08:30:00 Test Item Value Reference Range Interpretation Comments PTT (test code = PTT) 32.1 s 22.9-35.8 [facility] VvcdkxdCQKIJLBHDF5000-88-81 08:30:0065.9[facility] HermannHEMATOLOGY 2020-03-21 08:30:0026.2[facility] MrnloviYXPTJBYAQL7322-68-10 08:30:005.4[facility] CxaqsiiNCUZJCAAKR9003-82-86 08:30:001.3[facility] VlaohvnXHNWUFNMGQ5622-69-54 08:30:001.2[facility] AfyqwneNPZPAFDHLI9514-51-58 08:30:004.3[facility] VCIUBUZMXH6303-71-09 08:30:001.7[facility] VomcjqsIGNQQFUZAK6291-85-82 08:30:000.4 [facility] ArgtwyqHNPHFOPUUF4115-83-10 08:30:000.1[facility] HermannHEMATOLOGY 2020-03-21 08:30:000.1[facility] HermannPARATHYROID QLPUSSO7219-60-01 08:30:001.14 [facility] HermannPARATHYROID NWUSYPF2957-58-40 08:30:001.15[facility] XVDNLPEMDG7253-05-91 22:50:00Not Detected (03/20/20 5:50 PM)[facility] CSWUVZPAZB5316-01-82 18:47:005[facility] GiejyqqOWTAOUVZUJ7942-79-45 18:47:00 Negative *NA*(03/20/20 1:47 PM)[facility] WskukzgBEWKIDXXEI5651-36-98 18:47:00Non- Reactive *NA*(03/20/20 1:47 PM)[facility] HyvyfjcWYMVZNDEWI6092-87-72 18:47:003.3 [facility] OscpisfOUBZQZLFOW9181-48-31 18:47:00Negative *NA*(03/20/20 1:47 PM) [facility] MabnaizBEAGXVUOVR0537-10-13 18:47:00Negative *NA*(03/20/20 1:47 PM) [facility] QeisoohLXHKJQTUKQ7537-32-00 18:47:00Negative *NA*(03/20/20 1:47 PM) [facility] FwwitmxBVYSXNMDDQ5958-09-69 18:47:00Negative *NA*(03/20/20 1:47 PM) [facility] HermannCHEM MJDOG2646-47-97 05:27:002.0[facility] HermannCHEM PANEL 2020-03-20 05:27:28472Wjvzbhcp HermannCHEM EWHOK1953-33-44 05:27:0013[facility] HermannCHEM ENCBH6371-03-55 05:27:000.68[facility] HermannCHEM FEXZN8051-33-20 05:27:06574Nqjzlrdy HermannCHEM CLIFL4335-89-52 05:27:003.3[facility] HermannCHEM NIIEM4760-30-45 05:27:26913Feiqkfig HermannCHEM FPHKJ4293-17-25 05:27:0024 [facility] HermannCHEM RHCTQ6190-71-19 05:27:0012.3[facility] HermannCHEM PANEL 2020-03-20 05:27:008.8[facility] HermannCHEM MWTLG0036-31-51 05:27:0099[facility] HermannCHEM RFMIQ4611-74-44 05:27:002.5[facility] TlesxanIHNLGJUCBM2262-82-26 05:27:0013.8[facility] FwxmgflROGFSWJAPZ5528-07-12 05:27:009.5[facility] [place] CMGDDYOYGP3912-78-85 05:27:004.25[facility] FqdkhxgJJGJADIGAF9600-29-24 05:27:00 13.5[facility] PpztudxLBPPYWFLWS4167-47-99 05:27:0040.2[facility] HermannHEMATOLOGY 2020-03-20 05:27:0094.7[facility] YpqqhvgQVGLOKUMKI1647-05-56 05:27:00 Test Item Value Reference Range Interpretation Comments MCH (test code = MCH) 31.7 pg 27.0-31.0 [facility] IqqzbzsBBAVJDUFLO8963-90-74 05:27:0033.5[facility] HermannHEMATOLOGY 2020-03-20 05:27:0013.2[facility] HctuqqpHCAYANJCTZ7246-94-20 05:27:81614Ozvkvklq JzjmhbgKZGHRTTEAC8326-59-54 05:27:007.2[facility] UmizrbkUFPTCAPJYS4117-07-18 05:27:0075.4[facility] KuxqbkoBKKHNXHZEW9983-67-73 05:27:0016.6[facility] IXSVLIBADO0499-54-65 05:27:007.3[facility] OjjxnqrHDTJANYNQE8234-20-75 05:27:000.1 [facility] VsrrzlzFQOVGHTLSP8921-21-27 05:27:000.6[facility] HermannHEMATOLOGY 2020-03-20 05:27:007.1[facility] FbtmkktDXEHYDFCJX9677-57-14 05:27:001.6[facility] WjibvekAKOVRSUHKL4169-99-77 05:27:000.7[facility] OxkjgtzCYOLOLWOFX3662-52-28 05:27:000.1[facility] HermannPARATHYROID YNYGBUP8143-30-47 05:27:001.11[facility] HermannPARATHYROID JAZTTRH7020-92-81 05:27:001.13[facility] HermannCARDIAC ENZYMES 2020-03-19 17:26:000.10[facility] HermannDRUG PFDFGD9166-68-07 17:26:00Negative *NA*(03/19/20 12:26 PM)[facility] HermannDRUG VGSQBH5113-30-16 17:26:00Negative *NA*(03/19/20 12:26 PM)[facility] HermannDRUG HNMNEA3639-24-38 17:26:00Positive *ABN*(03/19/20 12:26 PM)[facility] HermannDRUG NFVVUN0845-05-35 17:26:00Negative *NA*(03/19/20 12:26 PM)[facility] HermannDRUG LYCKDU2823-45-80 17:26:00Negative *NA*(03/19/20 12:26 PM)[facility] HermannDRUG FBTACA8581-65-40 17:26:00Positive *ABN*(03/19/20 12:26 PM)[facility] HermannDRUG DQKNKG3567-64-86 17:26:00Negative *NA*(03/19/20 12:26 PM)[facility] HermannDRUG JAVRHL6773-49-27 17:26:00See Note (03/19/20 12:26 PM)[facility] NqmjmqxZQTGHYMFVR4304-00-84 13:42:00 Test Item Value Reference Range Interpretation Comments PT (test code = PT) 11.7 s 12.0-14.7 [facility] SdimkbfGXFSGMYJYP3324-93-42 13:42:00 Test Item Value Reference Range Interpretation Comments INR (test code = INR) 0.86 1 0.85-1.17 [facility] JwdoryiXBWWFECLBP5659-07-55 13:42:00 Test Item Value Reference Range Interpretation Comments PTT (test code = PTT) 20.7 s 22.9-35.8 [facility] HermannCHEM AOYUW2855-15-27 12:30:00 Test Item Value Reference Range Interpretation Comments B/C Ratio (test code = B/C Ratio) 22 1 6-25 [facility] HermannCHEM JIRJM7262-44-41 12:30:0046[facility] HermannCHEM PANEL 2020-03-19 12:30:003.7[facility] HermannCHEM HAJFG6496-34-32 12:30:61169Jclqrphq HermannCHEM EWGOR5393-73-20 12:30:007.0[facility] HermannCHEM WGIHF0608-27-85 12:30:003.3[facility] HermannCHEM HIVTE6531-92-77 12:30:00 Test Item Value Reference Range Interpretation Comments A/G Ratio (test code = A/G Ratio) 1.1 1 0.7-1.6 [facility] HermannCHEM LDPGY0038-41-39 12:30:0047[facility] HermannCHEM PANEL 2020-03-19 12:30:001.2[facility] FtzurmuYSTHFQPLZF5083-55-09 12:30:00Normal (03/19/20 7:30 AM)[facility] SkechkyJFALYAUMIQ4773-18-74 12:30:00Normal (03/19/20 7:30 AM)[facility] TyjawchHUIXXKLPTI2151-08-73 12:30:000.1[facility] HermannCARDIAC EXLDMCJ7721-50-00 12:28:000.41[facility] HermannSPECIAL JDKPJSFNR5974-44-30 12:28:004.9[facility] HermannCARDIAC GLJMHVV5288-40-06 05:33:000.52[facility] HermannCARDIAC VFSELAV3364-32-30 05:33:37116Asgeclly HermannCHEM JEXTG0395-56-14 05:33:33757Vrfzftgm HermannCHEM UXFFF6510-10-63 05:33:0021[facility] HermannCHEM HIYUF0884-22-21 05:33:001.02[facility] HermannCHEM LJKCZ0286-72-33 05:33:47570 [facility]annCHEM QALKL4180-95-28 05:33:003.8[facility] HermannCHEM PANEL 2020-03-19 05:33:37952Emqwtipt HermannCHEM ZLAMT3883-16-89 05:33:0024[facility] HermannCHEM AYZSE7878-34-02 05:33:009.1[facility] HermannCHEM VLRCQ7201-19-98 05:33:007.4[facility] HermannCHEM DVNFU4437-56-42 05:33:003.9[facility] HermannCHEM UEUCP9663-20-68 05:33:0048[facility] HermannCHEM MJWAZ0228-96-91 05:33:0044 [facility] HermannCHEM KRLAZ6802-03-11 05:33:78787Fbihijfq HermannCHEM PANEL 2020-03-19 05:33:001.1[facility] HermannCHEM RNRQM9260-00-20 05:33:0011.8[facility] HermannCHEM JPOJA0509-26-09 05:33:00 Test Item Value Reference Range Interpretation Comments B/C Ratio (test code = B/C Ratio) 21 1 6-25 [facility] HermannCHEM OWZEY9428-88-56 05:33:003.5[facility] HermannCHEM PANEL 2020-03-19 05:33:00 Test Item Value Reference Range Interpretation Comments A/G Ratio (test code = A/G Ratio) 1.1 1 0.7-1.6 [facility] HermannCHEM WMKBF8796-78-86 05:33:0062[facility] HermannCHEM PANEL 2020-03-19 05:33:002.1[facility] HermannCHEM LDFED2833-40-75 05:33:002.6[facility] ShmuxezITWUXBGRZX5119-74-39 05:33:0011.4[facility] PcojrbqGJMPKCLQSR9876-32-80 05:33:004.44[facility] WfdgbhvZBMGPAFHFX7788-09-62 05:33:0014.7[facility] LDUTMVYIEK0085-20-06 05:33:0042.4[facility] HcvwqqvMAQZVAZXNO4349-27-02 05:33:00 95.5[facility] OdnqctsBOZZCMBTCH8610-20-20 05:33:00 Test Item Value Reference Range Interpretation Comments MCH (test code = MCH) 33.1 pg 27.0-31.0 [facility] SlsbbwxXXYPITUXLS5932-16-13 05:33:0034.6[facility] HermannHEMATOLOGY 2020-03-19 05:33:0013.0[facility] HyfimqcDOBLCYQNJD6236-55-50 05:33:29111Biwstujg DnxcpepARXJVSFAYR1960-85-92 05:33:007.1[facility] MozhecxZEIRGKSNWO6216-62-49 05:33:00 Test Item Value Reference Range Interpretation Comments PT (test code = PT) 11.5 s 12.0-14.7 [facility] FrqmddhHZKEQYIPXQ9001-49-38 05:33:00 Test Item Value Reference Range Interpretation Comments INR (test code = INR) 0.84 1 0.85-1.17 [facility] IfhvdhyIUDLASUSTZ7049-30-52 05:33:00 Test Item Value Reference Range Interpretation Comments PTT (test code = PTT) 27.7 s 22.9-35.8 [facility] VdbomssBYZSFFVLWB9112-74-17 05:33:0080.1[facility] HermannHEMATOLOGY 2020-03-19 05:33:0013.1[facility] QwvqyyzWBYUKUBVDC9331-40-70 05:33:006.2[facility] KlgzphdLCZYTKGIKJ5705-30-22 05:33:000.6[facility] QpelnqwGTUGDGZRRG9347-93-11 05:33:009.2[facility] OxpvvevGDNSLXZXXT9965-90-53 05:33:001.5[facility] HHOZUIEKCH5702-77-29 05:33:000.7[facility] RcpmnteKLZYGUEUBG5161-96-01 05:33:000.1 [facility] HermannCHEM EIDZA3412-30-63 17:19:0084[facility] HermannCHEM PANEL 2019-08-03 17:19:0030[facility] HermannCHEM SLAUV3629-06-02 17:19:001.34[facility] HermannCHEM XMQRY7069-62-11 17:19:86625Eylkyfvc HermannCHEM BQFMN3264-55-04 17:19:004.1[facility] HermannCHEM OPVRA5532-83-98 17:19:77962Ouoalgrj HermannCHEM ELWRQ1147-30-25 17:19:0028[facility] HermannCHEM FCFBH2556-34-45 17:19:008.9 [facility] HermannCHEM EANFR7527-50-83 17:19:0011.1[facility] HermannCHEM PANEL 2019-08-03 17:19:00 Test Item Value Reference Range Interpretation Comments B/C Ratio (test code = B/C Ratio) 22 05-03 [facility] HermannCHEM BAKSZ7613-63-24 17:19:0045[facility] HermannCHEM PANEL 2019-08-03 17:19:0020[facility] HermannCHEM LZZPN8577-99-00 17:19:003.6[facility] HermannCHEM IAFER6942-59-51 17:19:0083[facility] HermannCHEM XLXMF0310-99-13 17:19:000.6[facility] HermannCHEM WYRNK2226-44-68 17:19:006.3[facility] HermannCHEM DEVZM0998-27-48 17:19:0020[facility] HermannCHEM KYOTT1413-02-87 17:19:002.7 [facility] HermannCHEM ZKQON7777-36-52 17:19:00 Test Item Value Reference Range Interpretation Comments A/G Ratio (test code = A/G Ratio) 1.3 1 0.7-1.6 [facility] HermannBLOOD BANK KCAYHYU6381-50-22 15:26:00Negative (08/03/19 10:26 AM) [facility]annCHEM PNJQK8843-49-68 15:26:0084[facility] HermannCHEM PANEL 2019-08-03 15:26:0030[facility] HermannCHEM HEWKF5713-24-81 15:26:001.33[facility] HermannCHEM FZCDD3454-38-99 15:26:21203Bpwjssen HermannCHEM MZKVZ8472-93-50 15:26:005.0[facility] HermannCHEM JTJPX5012-37-21 15:26:28759Bgylndgl HermannCHEM YPEVD5828-16-61 15:26:0026[facility] HermannCHEM AJGJU0756-78-74 15:26:008.9 [facility] HermannCHEM BLJHR9607-32-23 15:26:0012.0[facility] HermannCHEM PANEL 2019-08-03 15:26:00 Test Item Value Reference Range Interpretation Comments B/C Ratio (test code = B/C Ratio) 23 11 14- [facility] HermannCHEM SIABR5163-54-47 15:26:0045[facility] HermannCHEM PANEL 2019-08-03 15:26:0023[facility] HermannCHEM BUJYR8376-78-45 15:26:004.0[facility]CHE[facility] NDSBL6689-21-98 15:26:0092[facility]CHE[facility] XFYQW0163-10-16 15:26:000.7[facility]CHE[facility] CPWIO1606-49-27 15:26:006.8[facility]annCHE[facility] ZUWHY5288-63-68 15:26:0030[facility]CHE[facility] KPQBC5048-26-22 15:26:002.8 [facility] JGCJJ0585-44-93 15:26:00 Test Item Value Reference Range Interpretation Comments A/G Ratio (test code = A/G Ratio) 1.4 1 0.7-1.6 [facility] UwvsuvnEQNMBHJIXO6728-33-03 15:26:004.0[facility]annHEMATOLOGY 2019-08-03 15:26:003.67[facility] EcxqwfzZDWGHYJSTA0739-78-13 15:26:0012.1[facility] UidqsquWLEBPWLIOY5653-36-78 15:26:0035.1[facility] PgqtjabLKUCDFIZMZ6317-82-54 15:26:0095.5[facility] NmjejjnIQZSWPMLMJ2025-96-39 15:26:00 Test Item Value Reference Range Interpretation Comments MCH (test code = MCH) 33.1 pg 27.0-31.0 [facility] TyfdgtwQCMQKXCGHF4955-56-59 15:26:0034.6[facility]annHEMATOLOGY 2019-08-03 15:26:0012.5[facility] QhsvxbmLNTPHLLMAI5849-76-96 15:26:97770Ybwsbtun WmbnnojALRZUIIMAV9649-94-25 15:26:007.4[facility] GjywwrwDFOQLHHCGQ9587-25-14 15:26:00 Test Item Value Reference Range Interpretation Comments PT (test code = PT) 12.6 s 12.0-14.7 [facility] DngspkxBZFMCLMQRS7179-06-14 15:26:00 Test Item Value Reference Range Interpretation Comments INR (test code = INR) 0.96 1 0.85-1.17 [facility] AbqdkfkIPFWHBIFBH1733-40-40 15:26:00 Test Item Value Reference Range Interpretation Comments PTT (test code = PTT) 32.8 s 22.9-35.8 [facility] YlkmepzBRNMUSMQLJ1804-09-72 15:26:0039.7[facility]annHEMATOLOGY 2019-08-03 15:26:0044.0[facility] LumeuvwVSLGQEMTKH9872-66-77 15:26:008.8[facility] HnopfsqRXSDZWQDIL0352-23-08 15:26:006.4[facility] NlwchkzCAGZJWSHNE8719-89-33 15:26:001.1[facility] PojawqeOSUABRDGYH2312-69-70 15:26:001.6[facility] [place] HHARLAVGWZ4687-04-27 15:26:001.8[facility] QaddamuTJHCBGJJIZ7575-21-67 15:26:000.4 [facility] IciqiuaTKMRDPEJVU6354-46-72 15:26:000.3[facility]annSPECIAL AUWJMYBVI7483-99-95 15:26:005.1[facility]
--- OUTSIDE RECORDS SUMMARY | 2020-09-26 17:37 | XMS REPORT | Summary of Care ---
:1965 Author Organization [facility] Address [address] [place] [id number] Care Team Providers Name Role Phone Pcp, Does Not Have A Primary Care Provider Reason for Visit Reason Comments LAB covid testing- body aches, n ausea, vomiting, diarrhea Encounter Details Date Type Department Care Team Description 09/24/2020 Laboratory Only [facility] Family Debra Bermudez, [facility] [address] [place] [id number] [phone] Exposure to Medicine - [place] Billy Leung, [facility] [address] [place] [address] [phone] SARS-associated [address] [place] [address] Lab, Adc Fam Pob I coronavirus ([address] Drive Dx) [place] [address] Allergies Active Allergy Reactions Severity Noted Date Comments Duloxetine Swelling 01/02/2015 Quetiapine Fumarate Swelling 01/02/2015 Bupropion Hcl Swelling 01/02/2015 documented as of this encounter (statuses as of 09/24/2020) Medications Medication Sig Dispensed Refills Start Date End Date Status metoprolol tartrate Take 25 mg by 0 Active (LOPRESSOR) 25 mg mouth daily. tablet lisinopril Take by mouth 0 Acti ve (PRINIVIL,ZESTRIL) 40 daily. mg tablet furosemide (LASIX) 40 Take 20 mg by 0 Active mg tablet mouth daily. POTASSIUM CHLORIDE Take 10 mEq by 0 Active (KLOR-CON 10 ORAL) mouth daily. pantoprazole (PROTONIX) Take 40 mg by 0 Active 40 mg EC tablet mouth daily. citalopram (CELEXA) 20 Take 20 mg by 0 Active mg tablet mouth daily. traZODONE (DESYREL) 50 Take 50 mg by 0 Active mg tablet mouth at bedtime. rOPINIRole (REQUIP) 2 Take 2 mg by 0 Active mg tablet mouth at bedtime. tiZANidine (ZANAFLEX) 2 Take 2 mg by 0 Active mg capsule mouth 2 (two) times daily as needed for Muscle Spasms. HYDROmorphone Take 8 mg by 0 Act osmany (DILAUDID) 8 mg tablet mouth every 6 (six) hours as needed for Pain. multivitamin tablet Take 1 Tab by 0 Active mouth daily. BIOTIN ORAL Take 1 Tab by 0 Acti ve mouth daily. DOCUSATE CALCIUM (STOOL Take 1 Tab by 0 Active SOFTENER ORAL) mouth as needed for Constipation. aspirin 81 mg EC tablet Take 81 mg by 0 Active mouth daily. proMETHazine Take 1 Tab by 90 Tab 1 02/08/2016 Ac tive (PHENERGAN) 25 mg mouth every 6 tabletIndications: (six) hours as Nausea & vomiting needed for Nausea and Vomiting (N/V). meloxicam (MOBIC) 15 mg TAKE 1 TABLET(S) 30 tablet 2 6 Active tablet BY MOUTH EVERY MORNING AFTER BREAKFAST acetaminophen (TYLENOL) Take by mouth 0 Active 325 mg tablet every 6 (six) hours as needed for Pain (scale 1-3). amLODIPine 5 mg tablet Take 5 mg by 0 Active mouth daily. HYDROcodone-acetaminoph Take 1 tablet by 0 Active en (NORCO) 7.5-325 mg mouth every 6 per tablet (six) hours as needed for Pain. levothyroxine 25 mcg TAKE 1 TABLET BY 90 tablet 3 03/16/2018 Active tabletIndications: MOUTH IN THE Other specified MORNING hypothyroidism clonazePAM 1 mg tablet 0 08/28/2020 Active TRINTELLIX 20 mg Tab 0 06/20/2020 Active magnesium oxide 400 mg Take by mouth. 0 Active magnesium Tab AMITIZA 24 mcg capsule 0 07/23/2020 Active atorvastatin 20 mg Take 20 mg by 0 08/18/2019 Active tablet mouth. documented as of this encounter (statuses as of 09/24/2020) Active Problems Problem Noted Date Well woman exam 08/04/2016 Flu vaccine need 08/04/2016 Encounter for screening mammogram for breast cancer Screening for osteoporosis 08/04/2016 Postnasal drip 08/04/2016 Pure hypercholesterolemia 07/03/2015 Chronic renal insufficiency 05/22/2015 Chronic pain 05/22/2015 Elevated MCV 05/22/2015 Overview: She states this has been for years Multiple thyroid nodules 01/04/2015 Right thyroid nodule 01/04/2015 HLD (hyperlipidemia) 01/04/2015 Hypothyroidism 01/02/2015 Major depressive disorder, recurrent episode, severe 0 11/30/2006 Overview: ICD10 Diagnosis Term Automatic Beading Lathe Operator Utility Essential hypertension, benign 11/27/2006 OTHER DIAGNOSIS - PLEASE ANNOTATE. 11/27/2006 Overview: S/p overdose on Ambien, Skelaxin, Atenol ol documented as of this encounter (statuses as of 09/24/2020) Immunizations Name Administration Dates Next Due Influenza Virus Vaccine Quad IM 3+ YRS 08/04/2016 Influenza Virus Vaccine Quad IM Multi-dose 6+ MO 08/18/2019 Pneumococcal Polysaccharide, PPSV23 (PNEUMOVAX) 09/12/2020 Zoster(Zostavax)(Shingles) 08/18/2019, 05/02/2019 documented as of this encounter Social History Tobacco Use Types Packs/Day Years Used Date Current Every Day Smoker Cigarettes 1 20 Smokeless Tobacco: Never Used Alcohol Use Drinks/Week oz/Week Comments Yes 0 Standard drinks or equivalent 0.0 Social Drinker Sex Assigned at Date Recorded Not on file COVID-19 Exposure Response Date Recorded In the last month, have you been in contact with No / Unsure 09/24/2020 6:54 PM 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 documented as of this encounter Last Filed Vital Signs Not on filedocumented in this encounter Nursing Notes Nani Morgan MA - 09/24/2020 6:40 PM CSTPaytonkrunal Martel is a 55 year old female here for COVID Screening with a Nasopharyngeal Swab All droplet and contact precautions taken with appropriate PPE worn while interacting with patient. ? Goggles ? N95 Mask ? Gloves ? Gown RR 20 Pulse Ox 97% Patient educated on plan of care for visit, swabbing technique, risks and benefits of test and length of time to receive results. Verbal consent obtained to perform test. CDC Fact Sheet for Patients nCoV Diagnostic Panel dated 01/22/2020 and Factsheet What to Do if Sick with COVID 19 01/02/20 provided. Patient swabbed per appropriate nasopharyngeal technique, and patient tolerated well. Patient was discharged from the testing clinic in stable condition. Nani Roman MA 09/24/2020 6:56 PM Bilate nares swabbed during COVID19 nasopharyngeal swab. 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 documented in this encounter Plan of Treatment Name Type Priority Associated Diagnoses Order S chedule COVID-19 (MOLECULAR LAB Routine Exposure to Expected : 09/24/2020, TESTING SARS-associated Expires: 021 NUCLEIC ACID coronavirus AMPLIFICATION) Health Maintenance Due Date Last Done Comments HEPATITIS C (HCV) SCREEN 1965 Depression Screening 1976 DTaP,Tdap,and Td Vaccines (1 - Tdap) 1983 Breast Cancer Screening (MAMMOGRAM) 2004 COLON CANCER SCREENING ANNUAL 2014 FIT/FOBT COLON CANCER SCREENING FIT DNA EVERY 2014 3 YEARS COLON CANCER SCREENING SIGMOIDOSCOPY 2014 EVERY 5 YEARS LUNG CANCER SCREEN: Recommended for 2019 age 55-80 with 30 + pack year history Zoster Recombinant Vaccine (SHINGRIX) 10/13/2019 08/18/2019 , 05/02/2019 (2 of 3) INFLUENZA VACCINE (#1) 2020 08/18/2019, 08/04/2016 COLONOSCOPY 04/26/2021 04/26/2019 Colorectal Cancer Screening 04/26/2021 PAP SMEAR 02/16/2023 02/16/2018, 12/29/2017, 08/04/2016 PNEUMOCOCCAL 0-64 YEARS COMBINED Completed 09/12/2020 SERIES documented as of this encounter Results Not on filedocumented in this encounter Visit Diagnoses Diagnosis Exposure to SARS-associated coronavirus - Primary documented in this encounter Additional Health Concerns Infection Onset Date Last Indicated Resolved Time COVID-19 Rule Out 09/24/2020 09/24/2020 documented as of this encounter Insurance Payer Benefit Plan / Subscriber ID Effective Phone Address T e Group Dates TMHP MEDICAID OF [id number] 2006-Pres [phone] [place] [phone] [place] [address] [facility] [id number] 2019-Pres Medica re HEALTHCARE - HEALTHCARE ent Adv HM O MANAGED DUAL COMPLETE MEDICARE HMO documented as of this encounter
--- NOTE | 2020-09-26 18:03 | ER ---
Nurse's Notes [facility] Name: Betsey Martel Age: 55 yrs Sex: Female : 1965 Arrival Date: 09/26/2020 Time: 17:28 Bed Waiting Private MD: Diagnosis: Presentation: 09/26 17:29 Chief complaint: EMS states: called out by neighbor for generalized weakness, pain, and sv tremors. Reports running out of her Hydromorphone today. Coronavirus screen: Client denies travel out of the [place] in the last 14 days. At this time, the client does not indicate any symptoms associated with coronavirus-19. Ebola Screen: No symptoms or risks identified at this time. Risk Assessment: Do you want to hurt yourself or someone else? Patient reports no desire to harm self or others. Onset of symptoms was September 26, 2020. 17:29 Method Of Arrival: EMS: [facility] sv 17:29 Acuity: KAREN 3 sv 17:31 Initial Sepsis Screen: Does the patient meet any 2 criteria? No. Patient's initial sv sepsis screen is negative. Does the patient have a suspected source of infection? No. Patient's initial sepsis screen is negative. Historical: - Allergies: 17:31 Cymbalta; sv 17:31 Demerol; sv 17:31 Seroquel; sv 17:31 Wellbutrin; sv - PMHx: 17:31 Anemia; degenerative bone disease; BRAIN TUMOR 1997; CHF; Chronic pain; Depression; sv ETOH; GERD; Hip Pain; Hypertension; Hypothyroidism; kidney disease; osteoarthritis; Rheumatoid Arthritis; THORACIC AORTIC ANEURYSM; - PSHx: 17:31 Knee surgery; Cholecystectomy; Heart stents; r shoulder replacement; aorta repair; sv - Immunization history:: Adult Immunizations up to date. - Social history:: Smoking status: Patient reports the use of cigarette tobacco products, smokes one pack cigarettes per day. Assessment: 17:31 Reassessment: Pt's son stated that he wasn't going to have her wait in the lobby, that sv he was going to take her to [place]. Informed son that we would get her back as soon as we had a bed available. Son stated "No offense to yall but I'm just going to take her to [place]." Son requesting help to take her to the vehicle. I got [employer] to help me get her to the vehicle. Vital Signs: 17:31 Pulse 90; Resp 18; Temp 98.7; Pulse Ox 99% ; Weight 72.57 kg; Height 5 ft. 6 in. sv (167.64 cm); 17:31 Body Mass Index 25.82 (72.57 kg, 167.64 cm) sv ED Course: 17:28 Patient arrived in ED. sv 17:30 Triage completed. sv 17:31 Arm band placed on. sv Administered Medications: No medications were administered Outcome: : Eloped from waiting room, before seeing physician Time discovered patient gone: sv September 26, 2020 at 17:31 18:02 Patient left the ED. sv Signatures: Ana Espino RN RN sv
[2020-09-26 23:22] VITALS: TEMP 98.7; O2SAT 99
== END 2020-09-26 18:02 | disposition left against medical advice (07) ==
LOC: ER 17:27
DX: Z53.21 Procedure and treatment not carried out due to patient leaving prior to being seen by health care provider (principal)
CPT/HCPCS: 99282

== ENCOUNTER 2021-01-20 19:15 | Observation (INO) | payer OTHER ==
--- OUTSIDE RECORDS SUMMARY | 2021-01-20 19:18 | XMS REPORT | Continuity of Care Document ---
:1965 Author Organization [facility] t Address [address] [place] [address] Care Team Providers Name Role Phone Spencer Copeland DO Attending Clinician CHARLES Attending Clinician Unavailable Lab, Fam Pob I Attending Clinician Unavailable Doctor Unassigned, Name Attending Clinician Unavailable Amelia MAXWELL Attending Clinician AFTAB Attending Clinician Unavailable CHARLES Admitting Clinician Unavailable AFTAB Admitting Clinician Unavailable Problems This patient has no known problems. Allergies, Adverse Reactions, Alerts This patient has no known allergies or adverse reactions. Medications This patient has no known medications. Procedures This patient has no known procedures. Encounters Start End Encounter Admission Attending Care Care Encounter Source Date/Time Date/Time Type Type Clinicians Facility Department ID 2020-03-19 Inpatient U [facility] CAR [id number] [facility] 04:07:00 2021-01-19 2021-01-19 Patient Min FABIAN [id number] 00:00:00 00:00:00 Outreach Baljit [facility] [id number] Spencer [facility] [id number] SHOAIB [id number] 2021-01-02 2021-01-02 Outpatient [facility] [id number] [address] [place] [address] 00:00:00 00:00:00 [place] [address] 2020-12-13 2020-12-14 Outpatient [place] [id number] [facility] [place] 00:00:00 00:00:00 [place] [address] 2020-12-11 2020-12-11 Outpatient [place], [facility] [id number] 975 [place] 00:00:00 00:00:00 [place] [address] 2020-10-24 2020-10-24 Outpatient [place], [facility] [id number] 988 [place] 00:00:00 00:00:00 [place] [address] 2020-10-17 2020-10-17 Outpatient [place], [facility] [id number] 894 [place] 00:00:00 00:00:00 [place] [address] 2020-10-17 2020-10-17 Outpatient WOODY, [facility] [id number] 543 [place] 00:00:00 00:00:00 [place] [address] 2020-10-17 2020-10-17 Outpatient WOODY, [facility] [id number] 543 [place] 00:00:00 00:00:00 [place] [address] 2020-10-17 2020-10-17 Outpatient [place]ODY, [facility] [id number] 543 [place] 00:00:00 00:00:00 [place] [address] 2020-10-17 2020-10-17 Outpatient [place], [facility] [id number] 543 [place] 00:00:00 00:00:00 [place] [address] 2020-10-10 2020-10-10 Outpatient [place]ODY, [facility] [id number] [place] 00:00:00 00:00:00 [place] [address] 2020-10-10 2020-10-10 Outpatient [place], [facility] [id number] 026 [place] 00:00:00 00:00:00 [place] [address] 2020-09-28 2020-09-28 [facility] 0324 [facility] 15:16:00 15:16:00 2020-09-26 2020-09-26 Emergency E [facility] [id number] [facility] 18:28:00 18:28:00 2020-09-24 2020-09-24 Laboratory Lab, [facility] [id number] 18:30:16 18:50:16 Only Fam Pob I Health [id number] [place] [id number] Professio [id number] nal [address] 2020-09-19 2020-09-19 Orders Doctor ADOLPH [id number] 00:00:00 00:00:00 Only Unassigned, CASSIE [id number] [place] [facility] [id number] 2020-09-05 2020-09-05 Case Amelia [facility] [id number] 00:00:00 00:00:00 Management Soheila Trinh [id number] [place] [id number] Professio [id number] nal 134 Building 2020-08-01 2020-08-01 Outpatient [facility] [id number] 929 [place] 00:00:00 00:00:00 [place] [address] 2020-07-04 2020-07-04 Outpatient [facility] [id number] 917 [place] 00:00:00 00:00:00 [place] [address] 2020-07-04 2020-07-04 Outpatient [facility] [id number] 378 [place] 00:00:00 00:00:00 [place] [address] 2020-06-21 2020-06-23 Inpatient O'DANIEL, [facility] [id number] 490 [place] 00:00:00 00:00:00 MEME [address] 2020-06-19 2020-06-19 Outpatient [facility] [id number] 108 [place] 00:00:00 00:00:00 [place] [address] 2020-06-11 2020-06-11 Outpatient [facility] [id number] 649 [place] 00:00:00 00:00:00 [place] [address] 2020-06-08 2020-06-08 Outpatient [facility] [id number] 490 [place] 00:00:00 00:00:00 [place] [address] 2020-06-06 2020-06-06 Outpatient [facility] [id number] 434 [place] 00:00:00 00:00:00 [place] [address] 2020-06-06 2020-06-06 Outpatient [facility] [id number] 614 [place] 00:00:00 00:00:00 [place] [facility] i 2020-04-24 2020-04-24 Emergency E [facility] [id number] [facility] 21:30:00 21:30:00 2020-03-19 2020-03-19 Emergency E [facility] [id number] [facility] 00:18:00 00:18:00 2019-08-03 2019-08-03 Outpatient [facility] [id number] [facility] 10:08:00 10:08:00 Results This patient has no known results.
[2021-01-20 20:52] LABS: Absolute Lymphocytes (CBC) 1.6 K/uL (0.7-4.9); Basophils % 0.7 % (0-1.3); Hematocrit 38.2 % (36.0-45.0); Lymphocytes % 26.3 % (15.3-44.8); MPV 7.6 fL (7.6-11.3)
--- NOTE | 2021-01-20 20:52 | RAD REPORT ---
EXAM DESCRIPTION: RAD - Chest Single View - 01/20/2021 8:26 pm CLINICAL HISTORY: CHEST PAIN COMPARISON: Portable May 2019 TECHNIQUE: AP portable chest image was obtained 01/20/2021 8:26 pm . FINDINGS: No peripheral mass or consolidation. Interstitial pattern is similar to comparison. No rose lure or volume overload. Heart and vasculature are normal. No measurable pleural effusion and no pneu mothorax. No acute bone abnormality. Right shoulder prosthesis in place. No acute aortic finding. Aor tic stent is again noted. IMPRESSION: No acute cardiopulmonary process. Above detailed findings are stable from prior imaging.
[2021-01-20 20:57] LABS: Protime INR 0.88
[2021-01-20 21:02] LABS: ALT/SGPT 23 U/L (12-78); AST/SGOT 24 U/L (15-37); Albumin 3.6 g/dL (3.4-5.0); Alkaline Phosphatase 115 U/L (45-117); BUN Blood Urea Nitrogen 32 mg/dL (7-18); Bicarbonate 31 mmol/L (21-32); Bilirubin Direct < 0.1 mg/dL (0-0.2); Bilirubin Total 0.4 mg/dL (0.2-1.0); Glucose Level 91 mg/dL (74-106); NT PRO-BNP 801 pg/mL (<125); Protein, Total 7.2 g/dL (6.4-8.2); Sodium Level 135 mmol/L (136-145); Troponin (Emerg Dept Use Only) < 0.02 ng/mL (0.0-0.045)
[2021-01-20] MEDS ORDERED: POTASSIUM 25 MEQ EFFERV TAB ONE (22:12)
[2021-01-20] MEDS ORDERED: MORPHINE 4 MG/ML SYR ONE (22:28)
[2021-01-20] MEDS ORDERED: ONDANSETRON 4 MG/2 ML VIAL ONE (22:28)
--- NOTE | 2021-01-20 23:38 | ER ---
Nurse's Notes [facility] Name: Betsey Martel Age: 55 yrs Sex: Female : 1965 Arrival Date: 01/20/2021 Time: 19:16 Bed 5 Private MD: Diagnosis: Other chest pain;Dyspnea Presentation: 01/20 19:42 Chief complaint: Patient states: Ankle swelling for 2 days. SOB and CP started today. ll1 Slight cough. No fever. Coronavirus screen: Client denies travel out of the [place] in the last 14 days. chills, cough unrelated to allergies, difficulty breathing, fatigue, headache, muscle pain, shaking with chills, shortness of breath, Client presents with at least one sign or symptom that may indicate coronavirus-19. Standard/surgical mask placed on the client. Ebola Screen: Patient denies travel to an Ebola-affected area in the 21 days before illness onset. Initial Sepsis Screen: Does the patient meet any 2 criteria? HR > 90 bpm. No. Patient's initial sepsis screen is negative. Does the patient have a suspected source of infection? No. Patient's initial sepsis screen is negative. Risk Assessment: Do you want to hurt yourself or someone else? Patient reports no desire to harm self or others. Onset of symptoms was January 19, 2021. 19:42 Method Of Arrival: Ambulatory ll1 19:42 Acuity: KAREN 3 ll1 Historical: - Allergies: 19:48 Cymbalta; ll1 19:48 Seroquel; ll1 - PMHx: 19:48 ETHO INTOXICATION; Depression; Chronic pain; BRAIN TUMOR 1996; CHF; ETOH; kidney ll1 disease; GERD; Hypertension; Rheumatoid Arthritis; THORACIC AORTIC ANEURYSM; degenerative bone disease; osteoarthritis; Hypothyroidism; Hip Pain; Anemia; - PSHx: 19:48 Knee surgery; Cholecystectomy; Heart stents; r shoulder replacement; aorta repair; ll1 - Immunization history:: Flu vaccine is up to date. - Social history:: Smoking status: Patient reports the use of cigarette tobacco products, smokes one-half pack cigarettes per day. Screenin:00 Abuse screen: Denies threats or abuse. Nutritional screening: No deficits noted. jb4 Tuberculosis screening: No symptoms or risk factors identified. Fall Risk None identified. Assessment: 20:00 General: Appears in no apparent distress. comfortable, Behavior is calm, cooperative, jb4 appropriate for age. Pain: Complains of pain in right leg and left leg Pain does not radiate. Pain currently is 5 out of 10 on a pain scale. Neuro: Level of Consciousness is awake, alert, obeys commands, Oriented to person, place, time, situation. Cardiovascular: Heart tones S1 S2 present Patient's skin is warm and dry. Respiratory: Airway is patent Respiratory effort is even, unlabored, Respiratory pattern is regular, symmetrical, Breath sounds are clear bilaterally. GI: No signs and/or symptoms were reported involving the gastrointestinal system. : No signs and/or symptoms were reported regarding the genitourinary system. EENT: No signs and/or symptoms were reported regarding the EENT system. Derm: Skin is intact, Skin is pink, warm \T\ dry. Musculoskeletal: Circulation, motion, and sensation intact. Range of motion: intact in all extremities. 21:10 Reassessment: Patient appears in no apparent distress at this time. Patient and/or jb4 family updated on plan of care and expected duration. Pain level reassessed. Patient is alert, oriented x 3, equal unlabored respirations, skin warm/dry/pink. 22:26 Reassessment: Patient appears in no apparent distress at this time. Patient and/or jb4 family updated on plan of care and expected duration. Pain level reassessed. Patient is alert, oriented x 3, equal unlabored respirations, skin warm/dry/pink. 03 04:42 Pain: Pain began suddenly. rv Vital Signs: 01/20 19:42 BP 154 / 89; Pulse 91; Resp 17; Temp 98.5; Pulse Ox 95% ; Weight 73.94 kg; Height 5 ft. ll1 6 in. (167.64 cm); Pain 7/10; 21:10 BP 131 / 103; Pulse 73; Resp 11; Pulse Ox 100% on R/A; jb4 22:45 BP 143 / 87; Pulse 79; Resp 16; Pulse Ox 98% on R/A; jb4 19:42 Body Mass Index 26.31 (73.94 kg, 167.64 cm) ll1 ED Course: 19:16 Patient arrived in ED. cl3 19:42 Arm band placed on. ll1 19:46 Triage completed. ll1 19:59 Ean Ruiz RN is Primary Nurse. rv 20:00 Patient has correct armband on for positive identification. Bed in low position. Call jb4 light in reach. Side rails up X 1. Pulse ox on. NIBP on. 20:00 Patient maintains SpO2 saturation greater than 95% on room air. jb4 20:07 Steve Jalloh MD is Attending Physician. tw4 20:36 Inserted saline lock: 20 gauge in right forearm, using aseptic technique. rv 20:38 XRAY Chest (1 view) In Process Unspecified. EDMS 22:16 Ultrasound completed. Patient tolerated well. Notified ED Physician jose. sg3 22:17 Extremity Venous Uni Ltd US In Process Unspecified. EDMS 22:45 CT Chest For PE Angio In Process Unspecified. EDMS 22:51 Suraj Myrick, SOURAV is Primary Nurse. jb4 23:37 Elly Geronimo MD is Hospitalizing Provider. tw4 23:54 Hospitalizing Provider role handed off by Elly Geronimo MD tw4 23:54 Chuy Purdy DO is Hospitalizing Provider. tw4 01/21 04:41 No provider procedures requiring assistance completed. IV is patent, with fluids rv infusing freely, Patient admitted, IV remains in place. 07:57 Primary Nurse role handed off by Suraj Myrick RN bd Administered Medications: 01/20 22:14 Drug: Potassium Effervescent Tablet 50 mEq Route: PO; rv 22:45 Follow up: Response: No adverse reaction jb4 22:15 Drug: morphine 4 mg {Note: RASS 0.} Route: IVP; Site: right forearm; rv 22:45 Follow up: Response: No adverse reaction; Pain is decreased jb4 22:15 Drug: Zofran (Ondansetron) 4 mg Route: IVP; Site: right forearm; rv 22:45 Follow up: Response: No adverse reaction jb4 Outcome: 23:38 Decision to Hospitalize by Provider. tw4 01/21 04:42 Admitted to ER Hold. Please see [facility] for further documentation. rv Condition: good Instructed on the need for admit. 08:40 Patient left the ED. ph Signatures: Dispatcher [employer] EDMS Spring Banerjee Lianne Nathan RN RN Suraj Myrick RN RN jb4 Ashley Gonzalez sg3 Steve Jalloh MD MD tw4 Ean Ruiz, RN RN rv Henri, Johnathan cl3 Olga Álvarez, RN RN ll1
--- NOTE | 2021-01-20 23:38 | EDPHYS ---
Physician Documentation [facility] Name: Betsey Martel Age: 55 yrs Sex: Female : 1965 Arrival Date: 01/20/2021 Time: 19:16 Bed 5 Private MD: ED Physician Steve Jalloh HPI: 01/20 22:41 This 55 yrs old Female presents to ER via Ambulatory with complaints of Ankle tw4 Swelling, Chest Pain. 22:41 The patient or guardian reports chest pain that is located primarily in the substernal tw4 area. Onset: today. The pain does not radiate. Associated signs and symptoms: The patient has no apparent associated signs or symptoms. The chest pain is described as dull. Duration: The patient or guardian reports a single episode. Modifying factors: The symptoms are alleviated by nothing. the symptoms are aggravated by nothing. Severity of pain: At its worst the pain was moderate. The patient has not experienced similar symptoms in the past. Historical: - Allergies: 19:48 Cymbalta; ll1 19:48 Seroquel; ll1 - PMHx: 19:48 ETHO INTOXICATION; Depression; Chronic pain; BRAIN TUMOR 1996; CHF; ETOH; kidney ll1 disease; GERD; Hypertension; Rheumatoid Arthritis; THORACIC AORTIC ANEURYSM; degenerative bone disease; osteoarthritis; Hypothyroidism; Hip Pain; Anemia; - PSHx: 19:48 Knee surgery; Cholecystectomy; Heart stents; r shoulder replacement; aorta repair; ll1 - Immunization history:: Flu vaccine is up to date. - Social history:: Smoking status: Patient reports the use of cigarette tobacco products, smokes one-half pack cigarettes per day. ROS: 22:41 Constitutional: Negative for fever, chills, and weight loss, Eyes: Negative for injury, tw4 pain, redness, and discharge. 22:41 Respiratory: Negative for shortness of breath, cough, wheezing, and pleuritic chest pain, Abdomen/GI: Negative for abdominal pain, nausea, vomiting, diarrhea, and constipation, Back: Negative for injury and pain, MS/Extremity: Negative for injury and deformity, Skin: Negative for injury, rash, and discoloration, Neuro: Negative for headache, weakness, numbness, tingling, and seizure. 22:41 Cardiovascular: Positive for chest pain, Negative for edema, orthopnea, palpitations, paroxysmal nocturnal dyspnea. Exam: 22:41 Constitutional: This is a well developed, well nourished patient who is awake, alert, tw4 and in no acute distress. Head/Face: Normocephalic, atraumatic. Chest/axilla: Normal chest wall appearance and motion. Nontender with no deformity. No lesions are appreciated. Cardiovascular: Regular rate and rhythm with a normal S1 and S2. No gallops, murmurs, or rubs. Normal PMI, no JVD. No pulse deficits. Respiratory: Lungs have equal breath sounds bilaterally, clear to auscultation and percussion. No rales, rhonchi or wheezes noted. No increased work of breathing, no retractions or nasal flaring. Abdomen/GI: Soft, non-tender, with normal bowel sounds. No distension or tympany. No guarding or rebound. No evidence of tenderness throughout. Back: No spinal tenderness. No costovertebral tenderness. Full range of motion. MS/ Extremity: Pulses equal, no cyanosis. Neurovascular intact. Full, normal range of motion. Neuro: Awake and alert, GCS 15, oriented to person, place, time, and situation. Cranial nerves II-XII grossly intact. Motor strength 5/5 in all extremities. Sensory grossly intact. Cerebellar exam normal. Normal gait. Vital Signs: 19:42 BP 154 / 89; Pulse 91; Resp 17; Temp 98.5; Pulse Ox 95% ; Weight 73.94 kg; Height 5 ft. ll1 6 in. (167.64 cm); Pain 7/10; 21:10 BP 131 / 103; Pulse 73; Resp 11; Pulse Ox 100% on R/A; jb4 22:45 BP 143 / 87; Pulse 79; Resp 16; Pulse Ox 98% on R/A; jb4 19:42 Body Mass Index 26.31 (73.94 kg, 167.64 cm) ll1 MDM: 20:12 Patient medically screened. 01/20 20:08 Order name: Basic Metabolic Panel; Complete Time: 21:46 01/20 21:46 Interpretation: Normal except: NA 135; CL 97; K 3.0; BUN 32; GFR 75. 01/20 20:08 Order name: CBC with Diff; Complete Time: 20:53 01/20 20:08 Order name: LFT's; Complete Time: 21:46 01/20 21:47 Interpretation: Normal except: A/G 1.0; GLOB 3.6. 01/20 20:08 Order name: Magnesium; Complete Time: 21:46 01/20 21:47 Interpretation: Normal except: MG 3.0. 01/20 20:08 Order name: NT PRO-BNP; Complete Time: 21:46 01/20 21:47 Interpretation: Normal except: NT PRO-BNP 801. 01/20 20:08 Order name: PT-INR; Complete Time: 21:46 01/20 21:47 Interpretation: Within normal limits: PT 10.1. 01/20 20:08 Order name: Troponin (emerg Dept Use Only); Complete Time: 21:46 01/20 21:47 Interpretation: Within normal limits: TROPED < 0.02. 01/20 20:08 Order name: XRAY Chest (1 view); Complete Time: 20:53 01/20 23:55 Order name: COVID-19 : Document "Date of Symptom Onset" if Symptomatic. 01/20 23:56 Order name: CORONAVIRUS EDNV 01/21 02:18 Order name: SARS-COV-2 RT PCR; Complete Time: 07:27 EDMS 01/21 05:00 Order name: Troponin I; Complete Time: 07:27 EDMS 01/21 05:06 Order name: T4 Free; Complete Time: 07:27 EDMS 01/21 05:06 Order name: Thyroid Stimulating Hormone; Complete Time: 07:27 EDMS 01/20 20:08 Order name: EKG; Complete Time: 20:09 01/20 20:08 Order name: Cardiac monitoring; Complete Time: 20:19 01/20 20:08 Order name: EKG - Nurse/Tech; Complete Time: 20:19 01/20 20:08 Order name: IV Saline Lock; Complete Time: 20:19 01/20 20:08 Order name: Labs collected and sent; Complete Time: 20:19 01/20 20:08 Order name: O2 Per Protocol; Complete Time: 20:19 01/20 20:08 Order name: O2 Sat Monitoring; Complete Time: 20:19 01/20 20:55 Order name: Extremity Venous Uni Ltd US tw4 01/20 21:51 Order name: CT Chest For PE Angio tw4 01/20 23:57 Order name: CONS Physician Consult EDMS EC:41 Rate is 86 beats/min. Rhythm is regular. QRS [place] is Normal. [place] interval is normal. QRS tw4 interval is normal. QT interval is normal. No Q waves. T waves are Normal. No ST changes noted. Clinical impression: Normal ECG. Interpreted by me. Reviewed by me. Administered Medications: 22:14 Drug: Potassium Effervescent Tablet 50 mEq Route: PO; rv 22:45 Follow up: Response: No adverse reaction jb4 22:15 Drug: morphine 4 mg {Note: RASS 0.} Route: IVP; Site: right forearm; rv 22:45 Follow up: Response: No adverse reaction; Pain is decreased jb4 22:15 Drug: Zofran (Ondansetron) 4 mg Route: IVP; Site: right forearm; rv 22:45 Follow up: Response: No adverse reaction jb4 Disposition: 01/20/21 23:38 Hospitalization ordered by Chuy Purdy for Observation. Preliminary diagnosis are Other chest pain, Dyspnea. - Bed requested for Telemetry/MedSurg (observation). - Status is Observation. ph - Condition is Stable. - Problem is new. - Symptoms have improved. Signatures: Dispatcher [employer] EDNV Natalie Uribe RN RN Christian Amaya MD MD cha Hall, Patricia, RN RN Steve Jalloh MD MD tw4 Andrés Sweet mw2 Ean Ruiz RN RN Olga Álvarez RN RN 1 Suraj Myrick RN jb4 Corrections: (The following items were deleted from the chart) 23:54 23:38 Hospitalization Ordered by Elly Geronimo MD for Observation. Preliminary tw4 diagnosis is Other chest pain. Bed requested for Telemetry/MedSurg (observation). Status is Observation. Condition is Stable. Problem is new. Symptoms have improved. tw4 23:54 23:54 01/20/2021 23:38 Hospitalization Ordered by Chuy Purdy DO for Observation. tw4 Preliminary diagnosis is Other chest pain. Bed requested for Telemetry/MedSurg (observation). Status is Observation. Condition is Stable. Problem is new. Symptoms have improved. tw4 01/21 02:26 01/20 23:54 01/20/2021 23:38 Hospitalization Ordered by Chuy Purdy DO for mw2 Observation. Preliminary diagnosis is Other chest pain; Dyspnea. Bed requested for Telemetry/MedSurg (observation). Status is Observation. Condition is Stable. Problem is new. Symptoms have improved. tw4 01/21 04:56 02:26 01/20/2021 23:38 Hospitalization Ordered by Chuy Purdy DO for Observation. mw Preliminary diagnosis is Other chest pain; Dyspnea. Bed requested for [facility] ER HOLD. Status is Observation. Condition is Stable. Problem is new. Symptoms have improved. mw2 08:40 04:56 01/20/2021 23:38 Hospitalization Ordered by Chuy Purdy DO for Observation. ph Preliminary diagnosis is Other chest pain; Dyspnea. Bed requested for Telemetry/MedSurg (observation). Status is Observation. Condition is Stable. Problem is new. Symptoms have improved. mw
[2021-01-21] MEDS ORDERED: MORPHINE 4 MG/ML SYR IV PRN (00:03)
[2021-01-21] MEDS ORDERED: ASPIRIN 325 MG TAB PO ONE (00:03)
[2021-01-21] MEDS ORDERED: NITROGLYCERIN 0.4 MG/TAB SL PRN (00:03)
[2021-01-21] MEDS ORDERED: HYDRALAZINE HCL 20 MG/ML VIAL IV PRN (00:03)
--- NOTE | 2021-01-21 00:24 | P.HP ---
Certification for Inpatient Patient admitted to: Observation With expected LOS: <2 Midnights Patient will require the following post-hospital care: None Practitioner: I am a practitioner with admitting privileges, knowledge of patient current condition, hospital course, and medical plan of care. Services: Services provided to patient in accordance with Admission requirements found in Title 42 Section 412.3 of the Code of Federal Regulations <Jagjit Colon - Last Filed: 01/21/21 00:43> Patient admitted to: Observation <Chuy Purdy - Last Filed: 01/21/21 08:56> Patient History Date of Service: 01/21/21 Primary Care Provider: Dr. Floyd Reason for admission: chest pain History of Present Illness: Ms. Martel is a 55 yo female with HTN, CHF, hypothyroidism, h/o of CVA, thoracic aorta rupture and dissection, Takotsubo cardiomyopathy, and meningioma here today with chest pain and swelling in her legs. Three days ago, she noticed that the swelling in her leg was worsening and also began to have shooting pain in her legs. She says the chest pain began at 3:15pm today and describes it as a 7/10 intermittent sternal chest pressure that lasts for 5 minutes. She feels it in her back as well. She reports SOB triggered by anxiety, PND, headache, constipation. She denies fever, nausea, vomiting. CTPE without finding of pulmonary embolism, aneurysm or dissection, venous doppler ultrasound also negative for DVT. CXR without findings. EKG in sinus rhythm. Initial troponins negative. Na 135. K 3. Cl 97. Mg 3. BNP 801. - Past Medical/Surgical History Diabetic: No -: HTN, CKD -: Hypothyroidism -: osteoarthritis -: depression -: Meningioma 1986 -: Thoracic aorta [id number] -: Toracic aorata dissection 2012 -: anxiety/depression -: Takotsubo Cardiomyopathy -: Chronic systolic CHF -: CVA 09/2020, [facility] -: R knee sx -: R shoulder replacement -: X 2 -: ovarian cyst removal -: cholecystectomy -: hernia repear - Family History Mother -: Heart disease, Hypertension, Stroke, Cancer Notes: A-fib, breast cancer, blood clots Father -: Hypertension, Other (see notes) Notes: Brain disorder - Social History Smoking Status: Current some day smoker Counseled patient to stop smoking for: less than 10 minutes Smoking therapy provided: Yes Patient receptive to therapy: Yes Alcohol use: No CD- Drugs: No Caffeine use: No Place of Residence: Home <Jagjit Colon - Last Filed: 01/21/21 00:43> Date of Service: 01/21/21 Home medications list reviewed: Yes <Chuy Purdy - Last Filed: 01/21/21 08:56> Allergies duloxetine HCl [From Cymbalta] Allergy (Intermediate, Verified 11/24/15 00:45) EDEMA quetiapine fumarate [From Seroquel] Allergy (Intermediate, Verified 11/24/15 00:45) EDEMA bupropion HCl [From Wellbutrin] Allergy (Verified 04/05/19 23:32) swelling Home Medications: Ropinirole HCl 2 mg PO BEDTIME 02/11/12 Hydromorphone [Dilaudid*] 4 mg PO Q6H PRN 02/26/15 Levothyroxine [Synthroid*] 50 mcg PO DAILY 02/26/15 Trazodone [Desyrel*] 150 mg PO BEDTIME 02/26/15 Atorvastatin Calcium [Lipitor*] 1 tab PO BEDTIME 04/06/19 clonazePAM [Klonopin*] 1 mg PO TID 04/06/19 Hydralazine HCl [Apresoline] 50 mg PO TID 05/23/19 carvediloL [Carvedilol] 3.125 mg PO BID 05/23/19 Amlodipine Besylate [Norvasc] 2.5 mg PO DAILY 01/21/21 Aspirin [Aspirin EC 81 MG] 81 mg PO DAILY 01/21/21 Furosemide [Lasix] 20 mg PO SEECOM #60 tab 01/21/21 Lubiprostone 24 mcg PO DAILY 01/21/21 Pantoprazole [Protonix Tab*] 40 mg PO DAILY 01/21/21 Potassium Chloride [Klor-Con M10] 10 meq PO BID #30 tab.er.prt 01/21/21 Promethazine HCl 25 mg PO BID PRN 01/21/21 Review of Systems General: Unremarkable Eyes: Unremarkable ENT: Unremarkable Respiratory: Shortness of Breath, As per HPI Cardiovascular: Chest Pain, Paroxysmal Noc. Dyspnea, Edema, As per HPI Gastrointestinal: Constipation, As per HPI Genitourinary: Unremarkable Musculoskeletal: Shoulder Pain Integumentary: Unremarkable Neurological: Unremarkable Lymphatics: Unremarkable <Jagjit Colon - Last Filed: 01/21/21 00:43> Physical Examination - Vital Signs Temperature: 98.5 F Blood Pressure: 154/89 Pulse: 91 Respirations: 17 Pulse Ox (%): 95 - Physical Exam General: Alert, In no apparent distress, Oriented x3, Cooperative, Other (anxious) HEENT: Atraumatic, Normocephalic, PERRLA, Mucous membr. moist/pink, EOMI, Sclerae nonicteric Neck: Supple, 2+ carotid pulse no bruit, JVD not distended, No Thyromegaly, No LAD Respiratory: Clear to auscultation bilaterally, Normal air movement Cardiovascular: Normal pulses, Regular rate/rhythm, Normal S1 S2, No gallops, No rubs, No murmurs, Other (trace edema) Capillary refill: <2 Seconds Gastrointestinal: Normal bowel sounds, Soft and benign, Non-distended, No ascites, No tenderness, No masses, No rebound, No guarding Musculoskeletal: No clubbing, No swelling, No contractures, No erythema, No tenderness, No warmth Integumentary: No rashes, No breakdown, No significant lesion, No tenderness/swelling, No erythema, No warmth, No cyanosis Neurological: Normal speech, Normal strength at 5/5 x4 extr, Normal tone, Sensation intact, Cranial nerves 3-12 intact, Other (tearful affect) Lymphatics: No axilla or inguinal lymphadenopathy - Studies Laboratory Data (last 24 hrs) 01/20/21 20:40: PT 10.1, INR 0.88 01/20/21 20:15: WBC 6.10, Hgb 13.2, Hct 38.2, Plt Count 225 01/20/21 20:15: Sodium 135 L, Potassium 3.0 L, BUN 32 H, Creatinine 0.79, Glucose 91, Magnesium 3.0 H D, Total Bilirubin 0.4, AST 24, ALT 23, Alkaline Phosphatase 115 <Jagjit Colon Liza - Last Filed: 01/21/21 00:43> - Studies Laboratory Data (last 24 hrs) 01/20/21 20:40: PT 10.1, INR 0.88 01/20/21 20:15: WBC 6.10, Hgb 13.2, Hct 38.2, Plt Count 225 01/20/21 20:15: Sodium 135 L, Potassium 3.0 L, BUN 32 H, Creatinine 0.79, Glucose 91, Magnesium 3.0 H D, Total Bilirubin 0.4, AST 24, ALT 23, Alkaline Phosphatase 115 <Chuy Purdy - Last Filed: 01/21/21 08:56> Assessment and Plan - Plan Assessment #chest pain (h/o thoracic aortic rupture and dissection w/ stent in distal aortic arch and descending thoracic aorta) #HTN #hypothyroidism #chronic pain #anxiety #CHF #h/o CVA Plan #chest pain - initial troponin normal, initial EKG in sinus rhythm. will continue to trend troponins and EKG. on telemetry. - cardiology consulted - continue ASA, BB, statin. - lipid panel pending - morphine and NTG PRN for chest pain - CTPE negative for PE and no evidence of aneurysm or dissection #HTN - reconcile and continue home medications: amlodipine 2.5mg 1x daily, hydralazine 50mg q8hr, carvedilol 3.125mg PO 1x daily if SBP >140 #hypothyroidism - reconcile and continue home medications: levothyroxine 50mg 1x daily - TSH/T4 pending #chronic pain - patient takes dilaudid 4mg TID at home and sees pain management. will use morphine 4mg q6hr PRN for pain. #anxiety - patient takes Klonopin 1mg TID. will give 1mg klonopin 1x dose as needed for anxiety. #CHF - IV Lasix 20mg BID, continue to monitor - BNP 801, trace edema - no evidence of pleural effusion on CT, venous doppler US negative for DVT #h/o CVA - stable. continue with home medications. Discharge Plan: Home Plan to discharge in: 24 Hours - Advance Directives Does patient have a Living Will: No Does patient have a Durable POA for Healthcare: Yes - Code Status/Comfort Care Code Status Assessed: Yes (full code) Critical Care: No Time Spent Managing Pts Care (In Minutes): 55 <Jagjit Colon - Last Filed: 01/21/21 00:43> - Plan Case discussed in detail with physician medical receptionist assistant. Agree with plan of care. Please see discharge summary for details. <Chuy Purdy - Last Filed: 01/21/21 08:56>
[2021-01-21] MEDS ORDERED: TRAZODONE 150 MG TAB PO PRN (01:32)
[2021-01-21] MEDS ORDERED: clonazePAM 1 MG TAB PO PRN (01:39)
[2021-01-21] MEDS ORDERED: ONDANSETRON 4 MG/2 ML VIAL IV PRN (01:39)
[2021-01-21] MEDS ORDERED: ACETAMINOPHEN 500 MG TAB PO PRN (01:39)
[2021-01-21] MEDS: MORPHINE 4 MG/ML SYR IV PRN ×2 (01:41→07:59)
[2021-01-21] MEDS ORDERED: MORPHINE 4 MG/ML SYR ONE ×2 (01:51→08:08)
[2021-01-21 03:11] VITALS: O2SAT 94; BMI 26.3
[2021-01-21 05:06] LABS: Thyroid Stimulating Hormone 1.57 uIU/mL (0.360-3.740)
[2021-01-21] MEDS ORDERED: METOPROLOL TAR 25 MG TAB PO SCH (06:00)
[2021-01-21 06:02] VITALS: BP 149/79
[2021-01-21] MEDS ORDERED: METOPROLOL TAR 25 MG TAB ONE (06:20)
--- NOTE | 2021-01-21 07:36 | RAD REPORT ---
EXAM DESCRIPTION: US - Extremity Venous Uni Ltd - 01/20/2021 10:17 pm CLINICAL HISTORY: Pain;Swellingright leg COMPARISON: None. TECHNIQUE: Real-time sonographic evaluation of the right lower extremity deep venous systems was per formed. FINDINGS: Normal compressibility, flow augmentation, phasic flow and spontaneous flow are identified in the right lower extremity common femoral, superficial femoral, popliteal and posterior tibial vei ns. No intraluminal filling defects seen. IMPRESSION: No DVT in the right lower extremity.
[2021-01-21] MEDS ORDERED: ONDANSETRON 4 MG/2 ML VIAL ONE (08:13)
--- NOTE | 2021-01-21 08:32 | P.DS ---
Admission Date: 01/20/21 Discharge Date: 01/21/21 Primary Care Provider: Dr. Floyd; [place] [place] Pain-Dr. Suarez Disposition: ROUTINE DISCHARGE Discharge Condition: GOOD Reason for Admission: chest pain Consultations: none Procedures: COVID: Negative CT scan: Negative. No Pulmonary embolus. Venous doppler: FINDINGS: Normal compressibility, flow augmentation, phasic flow and spontaneous flow are identified in the right lower extremity common femoral, superficial femoral, popliteal and posterior tibial veins. No intraluminal filling defects seen. IMPRESSION: No DVT in the right lower extremity. Medical problem list: Chest pain, shortness of breath secondary to acute on chronic diastolic CHF Hypertension Hypothyroidism Chronic pain Depression with anxiety History of CVA Restless leg syndrome GERD Hyperlipidemia Brief History of Present Illness: 55 yo female with HTN, CHF, hypothyroidism, h/o of CVA, thoracic aorta rupture and dissection, Takotsubo cardiomyopathy, and meningioma. Patient presented with chest pain, shortness of breath min edema to her lower extremities. This had been getting worse over the past several days. She is not on a fluid restriction at home. Patient takes Lasix and adjust medication accordingly. She reports SOB triggered by anxiety, PND, headache, constipation. She denies fever, nausea, vomiting. CT scan with PE protocol showed no pulmonary embolism, aneurysm or dissection. Venous Doppler of the lower extremity showed no DVT. Patient was given IV diuretic therapy and admitted for observation. Initial cardiac enzymes unremarkable. Hospital Course: Patient presented with chest pain and shortness of breath secondary to acute on chronic diastolic CHF. She also had some edema to the lower extremity. Patient takes Lasix but is not on a fluid restriction at home. CT scan showed no pulmonary embolism or aneurysm. Patient was admitted for further observation and treatment. Patient received IV Lasix with improvement. Patient taught on fluid restriction. Cardiac enzymes unremarkable. Patient has follow up with Cardiology this week. She is to had an ECG and echocardiogram. At discharge patient without significant chest pain or shortness of breath. No significant edema noted. At discharge she will continue with a 1500 cc per day fluid restriction and low-salt diet. At discharge will increase Lasix to 40 mg twice daily for 5 days then she may go back to her 20 mg twice daily. Patient will also be provided potassium supplementation 10 mEq twice daily. Recommend to recheck lab-BMP in 1 week to monitor her progress. Recommend to monitor her weight daily. If her weight increases by more than 5 lb she is to contact her PCP or shank cutter for further recommendation. As mentioned above patient will follow up with Cardiology this week for ECG and echocardiogram. Further adjustment in medication can be done by cardiology. Patient with hypertension. Blood pressure stable this time. At discharge she will continue with Norvasc 2.5 mg daily, carvedilol 3.125 mg 1 pill twice daily, and hydralazine 50 mg 1 pill 3 times a day. Recommend to maintain blood pressure less than 130/80. Further adjustment can be done by her PCP or cardiology. Patient with hypothyroidism. This appears stable at this time. At discharge she will continue with levothyroxine 50 mcg daily. Patient with GERD. At discharge she will continue with Protonix 40 mg daily. Patient with hyperlipidemia. At discharge she will continue with Lipitor 20 mg daily. Patient with chronic pain. Patient has had surgery to her right shoulder. At discharge she will continue with her current medication of Dilaudid 4 mg every 6 hr as needed for pain. Recommend follow up with pain management to further address. Patient with depression with anxiety. At discharge she will continue with her current medication of trazodone 150 mg at bedtime, and Klonopin 1 mg 1 pill 3 times a day as needed for anxiety. Further adjustment in medication can be done by her PCP. Patient with restless leg syndrome. At discharge she will continue with Requip 2 mg at bedtime. Vital Signs/Physical Exam: Temp Pulse Resp BP Pulse Ox 98 F 62 14 149/79 H 96 01/21/21 04:00 01/21/21 06:00 01/21/21 07:59 01/21/21 06:00 01/21/21 07:59 General: Alert, In no apparent distress, Oriented x3, Cooperative HEENT: Atraumatic Neck: Supple Respiratory: Clear to auscultation bilaterally, Normal air movement Cardiovascular: Normal pulses, Regular rate/rhythm Gastrointestinal: Normal bowel sounds, Soft and benign, Non-distended, No tenderness, No masses, No rebound, No guarding Musculoskeletal: No erythema, No tenderness, No warmth Integumentary: Skin lesion Neurological: Normal speech, Normal strength at 5/5 x4 extr, Normal tone, Normal affect Laboratory Data at Discharge: WBC 6.10 K/uL (4.3-10.9) 01/20/21 20:15 Hgb 13.2 g/dL (12.0-15.0) 01/20/21 20:15 Hct 38.2 % (36.0-45.0) 01/20/21 20:15 Plt Count 225 K/uL (152-406) 01/20/21 20:15 PT 10.1 SECONDS (9.5-12.5) 01/20/21 20:40 INR 0.88 01/20/21 20:40 Sodium 135 mmol/L (136-145) L 01/20/21 20:15 Potassium 3.0 mmol/L (3.5-5.1) L 01/20/21 20:15 BUN 32 mg/dL (7-18) H 01/20/21 20:15 Creatinine 0.79 mg/dL (0.55-1.3) 01/20/21 20:15 Glucose 91 mg/dL (74-106) 01/20/21 20:15 Magnesium 3.0 mg/dL (1.8-2.4) H D 01/20/21 20:15 Total Bilirubin 0.4 mg/dL (0.2-1.0) 01/20/21 20:15 AST 24 U/L (15-37) 01/20/21 20:15 ALT 23 U/L (12-78) 01/20/21 20:15 Alkaline Phosphatase 115 U/L (45-117) 01/20/21 20:15 Troponin I < 0.02 ng/mL (0.0-0.045) 01/21/21 04:15 Home Medications: Ropinirole HCl 2 mg PO BEDTIME 02/11/12 Hydromorphone [Dilaudid*] 4 mg PO Q6H PRN 02/26/15 Levothyroxine [Synthroid*] 50 mcg PO DAILY 02/26/15 Trazodone [Desyrel*] 150 mg PO BEDTIME 02/26/15 Atorvastatin Calcium [Lipitor*] 1 tab PO BEDTIME 04/06/19 clonazePAM [Klonopin*] 1 mg PO TID 04/06/19 Hydralazine HCl [Apresoline] 50 mg PO TID 05/23/19 carvediloL [Carvedilol] 3.125 mg PO BID 05/23/19 Amlodipine Besylate [Norvasc] 2.5 mg PO DAILY 01/21/21 Aspirin [Aspirin EC 81 MG] 81 mg PO DAILY 01/21/21 Furosemide [Lasix] 20 mg PO SEECOM #60 tab 01/21/21 Lubiprostone 24 mcg PO DAILY 01/21/21 Pantoprazole [Protonix Tab*] 40 mg PO DAILY 01/21/21 Potassium Chloride [Klor-Con M10] 10 meq PO BID #30 tab.er.prt 01/21/21 Promethazine HCl 25 mg PO BID PRN 01/21/21 New Medications: Potassium Chloride [Klor-Con M10] 10 meq PO BID #30 tab.er.prt Furosemide [Lasix] 20 mg PO SEECOM #60 tab Physician Discharge Instructions: Patient presented with chest pain and shortness of breath secondary to acute on chronic diastolic CHF. She also had some edema to the lower extremity. Patient takes Lasix but is not on a fluid restriction at home. CT scan showed no pulmonary embolism or aneurysm. Patient was admitted for further observation and treatment. Patient received IV Lasix with improvement. Patient taught on fluid restriction. Cardiac enzymes unremarkable. Patient has follow up with Cardiology this week. She is to had an ECG and echocardiogram. At discharge patient without significant chest pain or shortness of breath. No significant edema noted. At discharge she will continue with a 1500 cc per day fluid restriction and low-salt diet. At discharge will increase Lasix to 40 mg twice daily for 5 days then she may go back to her 20 mg twice daily. Patient will also be provided potassium supplementation 10 mEq twice daily. Recommend to recheck lab-BMP in 1 week to monitor her progress. Recommend to monitor her weight daily. If her weight increases by more than 5 lb she is to contact her PCP or shank cutter for further recommendation. As mentioned above patient will follow up with Cardiology this week for ECG and echocardiogram. Further adjustment in medication can be done by cardiology. Patient with hypertension. Blood pressure stable this time. At discharge she will continue with Norvasc 2.5 mg daily, carvedilol 3.125 mg 1 pill twice daily, and hydralazine 50 mg 1 pill 3 times a day. Recommend to maintain blood pressure less than 130/80. Further adjustment can be done by her PCP or cardiology. Patient with hypothyroidism. This appears stable at this time. At discharge she will continue with levothyroxine 50 mcg daily. Patient with GERD. At discharge she will continue with Protonix 40 mg daily. Patient with hyperlipidemia. At discharge she will continue with Lipitor 20 mg daily. Patient with chronic pain. Patient has had surgery to her right shoulder. At discharge she will continue with her current medication of Dilaudid 4 mg every 6 hr as needed for pain. Recommend follow up with pain management to further address. Patient with depression with anxiety. At discharge she will continue with her current medication of trazodone 150 mg at bedtime, and Klonopin 1 mg 1 pill 3 times a day as needed for anxiety. Further adjustment in medication can be done by her PCP. Patient with restless leg syndrome. At discharge she will continue with Requip 2 mg at bedtime. Diet: AHA Activity: Fall precautions Followup: LAURA SANCHEZ [Primary Care Provider] - Time spent managing pt's care (in minutes): 55
[2021-01-21] MEDS ORDERED: FUROSEMIDE 20 MG/ 2ML VIAL IV SCH (09:00)
[2021-01-21] MEDS ORDERED: ENOXAPARIN 40 MG/0.4 ML SQ SCH (09:00)
[2021-01-21] MEDS ORDERED: HYDROMORPHONE ORAL 4 MG TAB PO PRN (09:10)
[2021-01-21] MEDS ORDERED: REGADENOSON 0.4 MG/5 ML SYR IV ONE (10:27)
--- NOTE | 2021-01-21 12:39 | RAD REPORT ---
EXAM DESCRIPTION: NM - Rest Stress Cardiac Imaging - 01/21/2021 12:27 pm CLINICAL HISTORY: Chest pain COMPARISON: None. TECHNIQUE: The patient was administered 10.3 mCi of Tc 99m Sestamibi prior to resting SPECT imaging of the heart. The patient was then administered 32.4 mCi of Tc 99m Sestamibi following exercise or ph armacologic stress. Multiplanar SPECT images were reviewed. FINDINGS: The end diastolic volume is 108 ml, the end systolic volume is 49 ml, and the ejection fra ction is 55 %. Physiologic distribution of the radiopharmaceutical through the myocardium is noted. No stress induce d ischemic defect is seen to suggest stress induced ischemia. No fixed defect is seen to suggest hibe rnating myocardium or scarred myocardium. IMPRESSION: No stress induced ischemia or other suspicious findings. End-diastolic volume was 108 mL. Ejection fraction calculated at 55%.
--- NOTE | 2021-01-21 13:08 | CON ---
Date of Consultation: 01/21/2021 The patient admitted on 01/20/2021 with atypical chest pain to Dr. Purdy service. I saw the patient on 01/21/2021. History Of Present Illness: Ms. Martel is a 55-year-old woman. She has a history of alcohol abuse, congestive heart failure, chronic renal disease, chronic pain, brain tumor, rheumatoid arthritis, to bacco use, coronary artery disease, status post stents. She has had an aortic thoracic aneurysm repa irs after dissection and rupture, has had knee surgery and cholecystectomy. Came in with multiple co mplaints, but mostly shortness of breath, sharp midepigastric chest pain radiating to the back, leg p ain, abdominal pain, arm pain. No nausea, vomiting, diaphoresis, PND, orthopnea, pedal edema, palpit ations, or syncope. By the time we saw her she has had a chest x-ray that was negative. Venous Dopp ler was negative. Her potassium was 3.0. Her BNP was 801. Troponin is negative. Past Medical History: As stated above. Allergies: SHE IS ALLERGIC TO DULOXETINE AND BUPROPION. Review of Systems: Negative. Social History: Positive for alcohol. She sees Dr. Renny Luna in [place] for cardiology. Medications: At home include Celexa, inhalers, Dilaudid, Lipitor, Lasix, Synthroid, Zestril, hydrala zine, ropinirole, Isordil, Tizanidine, Desyrel, Klonopin, and Coreg. Physical Examination: Vital Signs: Stable, afebrile. HEENT: Negative. Neck: Supple with no bruit, lymphadenopathy, JVD, or thyromegaly. Chest: Clear to auscultation and percussion. Cardiac: Revealed a regular rhythm and rate. No murmurs, gallops, or rubs. Abdomen: Benign. Extremities: Revealed trace edema. Diagnostic Data: As stated earlier. Impression And Plan: A patient with atypical chest pain, hypokalemia, elevated BNP, many cardiac ris k factors and a very complicated past history. Her pain sound mid-epigastric, gastric in origin or e sophageal, certainly could be musculoskeletal. Her shortness of breath probably is secondary to COPD . Her potassium needs to be corrected. I think an echocardiogram and a Lexiscan are in order to isaias luate her coronary anatomy and rule out CHF. She can go home after her testing and follow up with Dr Stewart Luna. His phone number is [phone]. Her other problems include CAD, status post ananda nts in the past. She has had rheumatoid arthritis. She has chronic renal disease, chronic diastolic congestive heart failure, history of alcoholism. She has dyslipidemia, hypothyroidism, rheumatoid a rthritis. She has had a history of anxiety, depression and chronic pain. All of those are stable. The case was discussed with Dr. Purdy. JUDY/GENARO Voice ID: [id number] Report ID: [id number]
[2021-01-21] MEDS ORDERED: HYDRALAZINE HCL 25 MG TABLET PO SCH (14:00)
[2021-01-21 14:19] VITALS: TEMP 97.4
--- NOTE | 2021-01-21 15:56 | RAD REPORT ---
EXAM DESCRIPTION: CT - Chest For Pe Angio - 01/21/2021 2:36 am CLINICAL HISTORY: SOB. COMPARISON: CTA of the chest from March 31, 2019. TECHNIQUE: CTA of the chest was performed following intravenous administration of iodinated contrast . Axial soft tissue and bone window, and coronal and sagittal soft tissue window reconstructions were created and sent to PACS. 3D postprocessing was performed on an independent workstation, with images sent to PACS for subsequen t review. This exam was performed according to our departmental dose-optimization program, which includes autom ated exposure control, adjustment of the mA and/or kV according to patient size and/or use of iterati ve reconstruction technique. FINDINGS: Suboptimal exam due to streak artifact from right shoulder hardware and contrast injection . Vascular: Suboptimal evaluation of the pulmonary arteries due to the streak artifact mentioned above. No obvious central acute pulmonary thromboembolism. Prominent main pulmonary trunk, measuring 3.3 cm in diameter. No evidence of aortic aneurysm or dissection. Redemonstration of the stent graft in the distal aortic arch and descending thoracic aorta, which appears grossly patent, in the portions with less streak artifact. Lungs and pleura: Minimal dependent atelectasis. No pulmonary consolidation. No pleural effusion. No pneumothorax. Mediastinum and neck: No obvious mediastinal lymphadenopathy by CT size criteria, limited in evaluati on due to streak artifact. Unremarkable appearance of the thyroid gland. Cardiac: Left cardiac chamber dilation. No pericardial effusion. Abdomen: No significant upper abdominal abnormality identified. Musculoskeletal: No concerning osseous abnormality. Osteopenia. IMPRESSION: 1. Suboptimal evaluation of the pulmonary arteries due to streak artifact. 2. No obvious central acute pulmonary embolism. 3. Prominence main pulmonary trunk, as can be seen with pulmonary arterial hypertension. 4. Grossly patent stent graft in the distal aortic arch and descending thoracic aorta, with no curr ent evidence of aneurysm or dissection. 5. Cardiomegaly. 6. No pulmonary consolidation or pleural effusions. Electronically signed by: Jenny Frazier MD 01/20/2021 10:57 PM CDT Due to temporary technical issues with the PACS/Fluency reporting system, reports are being signed by the in house radiologists without review as a courtesy to insure prompt reporting. The interpreting radiologist is fully responsible for the content of the report.
[2021-01-21] MEDS ORDERED: carvediloL 3.125 MG TAB PO SCH (18:00)
[2021-01-21] MEDS ORDERED: ATORVASTATIN 40 MG TAB PO SCH (21:00)
[2021-01-21] MEDS ORDERED: ROPINIROLE HCL 1 MG TAB PO SCH ×2 (21:00)
[2021-01-22] MEDS ORDERED: LEVOTHYROXINE SOD 0.05 MG TABLET PO SCH (06:30)
[2021-01-22] MEDS ORDERED: PANTOPRAZOLE 40MG TABLET PO SCH (07:30)
[2021-01-22] MEDS ORDERED: LUBIPROSTONE 24 MCG CAP PO SCH (09:00)
[2021-01-22] MEDS ORDERED: AMLODIPINE 2.5 MG TAB PO SCH (09:00)
[2021-01-22] MEDS ORDERED: ASPIRIN EC 81 MG TAB PO SCH (09:00)
--- NOTE | 2021-01-22 10:16 | TREADPHA ---
DX: CHEST PAIN Date of Study: 01/21/2021 Ht: 5' 6 " Wt: 163 lb 2.273 oz Consulting Physician: SHELTON MEDICATIONS: TYLENOL, LIPITOR, LOVENOX, APRESOLINE, NITROSTAT HISTORY: CONGESTIVE HEART FAILURE, STENT, HYPERTENSION PHYSICIAL EXAMINATION: RESTING B.P.: 141/80 RESTING H.R.: 52 RESTING EKG: SINUS RHYTHM PROTOCOL: PHARMACOLOGIC EXERCISE TIME: 3:30 B.P. AT PEAK STRESS: 115/64 IMPRESSION: LEXISCAN STRESS TEST PERFORMED. CARDIOLITE INJECTED PER PROTOCOL. SEE NUCLEAR MEDICINE REPORT. NO SUPRAVENTRICULAR TACHYCARDIA. NO VENTRICULAR TACHYCARDIA. NO ARRHYTHMIA NOTED. RESPIRATORY EVEN AND NONLABORED. PATIENT TOLERATED WELL. NO CHANGES WITH LEXISCAN STRESS.
--- NOTE | 2021-01-22 10:23 | ECHO ---
HEIGHT: 5 ft 6 in WEIGHT: 163 lb 2.273 oz DATE OF STUDY: 01/21/[address]: Lavell Ruiz MD 2-DIMENSIONAL: YES M.MODE: YES DOPPLER: YES COLOR FLOW: YES TDS: PORTABLE: DEFINITY: BUBBLE STUDY: DIAGNOSIS: CHEST PAIN CARDIAC HISTORY: CATHERIZATION: YES SURGERY: NO PROSTHETIC VALVE: NO PACEMAKER: NO MEASUREMENTS (cm) DIASTOLIC (NORMALS) SYSTOLIC (NORMALS) IVSd 1.0 (0.6-1.2) LA Diam 3.2 (1.9-4.0) LVEF 82% LVIDd 4.2 (3.5-5.7) LVIDs 2.1 (2.0-3.5) %FS 51% LVPWd 1.1 (0.6-1.2) Ao Diam 2.9 (2.0-3.7) 2 DIMENSIONAL ASSESSMENT: RIGHT ATRIUM: NORMAL LEFT ATRIUM: NORMAL RIGHT VENTRICLE: NORMAL LEFT VENTRICLE: NORMAL TRICUSPID VALVE: NORMAL MITRAL VALVE: NORMAL PULMONIC VALVE: NORMAL AORTIC VALVE: NORMAL PERICARDIAL EFFUSION: NONE AORTIC ROOT: NORMAL LEFT VENTRICULAR WALL MOTION: NORMAL DOPPLER/COLOR FLOW: NORMAL COMMENTS: NORMAL LEFT VENTRICULAR EJECTION FRACTION 55-60% WITH NORMAL WALL MOTION. NORMAL STUDY. TECHNOLOGIST: TANYA NELSON
== END 2021-01-21 14:30 | disposition home or self-care (01) ==
LOC: ER 19:15 → ERHOLD 23:56 → 2ND 01-21 08:27
PROVIDERS: ADMIT Family Medicine; ATTEND Family Medicine
DX: I13.0 Hypertensive heart and chronic kidney disease with heart failure and stage 1 through stage 4 chronic kidney disease, or unspecified chronic kidney disease (principal); I50.33 Acute on chronic diastolic (congestive) heart failure; N18.9 Chronic kidney disease, unspecified; D63.1 Anemia in chronic kidney disease; E03.9 Hypothyroidism, unspecified; M06.9 Rheumatoid arthritis, unspecified; F32.9 Major depressive disorder, single episode, unspecified; F41.8 Other specified anxiety disorders; G89.29 Other chronic pain; E78.5 Hyperlipidemia, unspecified; E87.6 Hypokalemia; I25.10 Atherosclerotic heart disease of native coronary artery without angina pectoris; K21.9 Gastro-esophageal reflux disease without esophagitis; G25.81 Restless legs syndrome; D32.9 Benign neoplasm of meninges, unspecified; M25.559 Pain in unspecified hip; F10.10 Alcohol abuse, uncomplicated; F17.210 Nicotine dependence, cigarettes, uncomplicated; Z71.6 Tobacco abuse counseling; Z20.822 Contact with and (suspected) exposure to COVID-19; Z95.5 Presence of coronary angioplasty implant and graft; Z86.73 Personal history of transient ischemic attack (TIA), and cerebral infarction without residual deficits; Z88.6 Allergy status to analgesic agent; Z88.8 Allergy status to other drugs, medicaments and biological substances; Z90.49 Acquired absence of other specified parts of digestive tract; Z82.49 Family history of ischemic heart disease and other diseases of the circulatory system; Z82.3 Family history of stroke; Z80.3 Family history of malignant neoplasm of breast
CPT/HCPCS: 93005; 93017; 93306; 85025; 80048; 36415; 83735; 85610; 80076; 84443; 83036; 84484 ×3; 84439; 83880; 71275; 71045; 93971; 78452; U0003; Q9967; J1940; J1650; J2785; J2405 ×2; A9500; 96374; 96375; 99285; G0378

== ENCOUNTER 2021-10-08 22:42 | Emergency (ER) | payer OTHER ==
--- OUTSIDE RECORDS SUMMARY | 2021-10-08 22:49 | XMS REPORT | Continuity of Care Document ---
:1965 Author Organization [facility] t Address [address] [place] [address] Care Team Providers Name Role Phone Paulie Owens Primary Care Physician LINDA Attending Clinician Unavailable Pob, Lab Main Attending Clinician Unavailable Liza Romero MD Attending Clinician Liza ROMERO Attending Clinician Unavailable Doctor Unassigned, Name Attending Clinician Unavailable SAGRARIO Attending Clinician Unavailable Charles TAYLOR TStewart Attending Clinician Tl FABIAN, October Attending Clinician Gwendolyn TAYLOR Attending Clinician Cheko Gilliam MD Attending Clinician CHEKO GILLIAM Attending Clinician Unavailable CHEKO GILLIAM Attending Clinician Unavailable TROY Attending Clinician Unavailable Obed BENJAMIN Attending Clinician Unavailable Haider TAYLOR Attending Clinician Petra TAYLOR [facility] Attending Clinician Claribel Thomson MD Attending Clinician Krish BENJAMIN Attending Clinician Unavailable SPENCER SHANNON Attending Clinician Unavailable Spencer Shannon DO Attending Clinician Abel CRUM Attending Clinician Unavailable Ramon FABIAN Attending Clinician Cameron BENJAMIN Attending Clinician Unavailable Richmond Muñoz MD Attending Clinician Herrera iL APRN Attending Clinician Lab, Fam Pob I Attending Clinician Unavailable Srinivasan RESPIRATORY THERAPY INSTRUCTOR Attending Clinician Ebrahim RESPIRATORY THERAPY INSTRUCTOR Attending Clinician SRINIVASAN Attending Clinician Unavailable Jaime MAXWELL Attending Clinician JAIME Attending Clinician Unavailable Emily BENJAMIN Attending Clinician Unavailable Bolivar Lambert MD Admitting Clinician CHARLES Admitting Clinician Unavailable Payers Payer Name Policy Type Policy Number Effective Date Expiration Date S ource MEDICAID [place] [id number] 2006 00:00:00 [facility] DUAL [id number] 2021 COMP HMO D SNP 00:00:00 [facility] [id number] 2020 2024 00:00:00 00:00:00 Problems Condition Condition Condition Status Onset Resolution Last Treating Co mments Source Name Details Category Date Date Treatment Clinician Date Opioid Opioid Disease Active [facility] abuse with abuse with 5-25 it y of intoxicati [place] with 00 Medical complicati complicati Br anch on on Pain due Pain due Disease Active Metho di to to 2-04 st internal internal 00:00: Hospit a orthopedic orthopedic 00 l prosthetic prosthetic devices, devices, implants implants and and grafts, grafts, initial initial encounter encounter Hypertroph Hypertroph Disease Active M ethodi y of bone, y of bone, 8-13 st right right 00:00: Hospita humerus humerus 00 l Screening Screening Disease Active Uni vers for for 9-26 ity of osteoporos osteoporos [place]: [place] 00 [facility] Flu Flu Disease Active Univers vaccine vaccine 9-26 ity of need need 00:00: [place] 00 Medical Branch Postnasal Postnasal Disease Active Uni vers drip drip 9- ity of 00:00: [place] 00 Medical Branch 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 ICD10 Diagnosis Term Internet Project Manager Utility Essential Essential Disease Active Uni vers hypertensi hypertensi 1-19 it y of on, benign on, benign 00:00: [place] [facility] OTHER OTHER Disease Active Overview: Univanais s DIAGNOSIS DIAGNOSIS 1-19 Formattin i ty of - PLEASE - PLEASE 00:00: g of this [place] as ANNOTATE. ANNOTATE. 00 note Medi dyan might be Branch different from the original. S/p overdose on Ambien, Skelaxin, Atenolol Allergies, Adverse Reactions, Alerts Allergy Allergy Status Severity Reaction(s) Onset Inactive Treating Comm ents Source Name Type Date Date Clinician Gabapent Propensi Active Other (See Swelling Methodi in ty to Comments) 2 / feet st adverse 00:00: Hospita reaction 00 l s to drug Nsaids Propensi Active Other (See Swelling Me thodi (Non-Lasha ty to Comments) 12-11 / Hx st roidal adverse 00:00: - CKD Hospita Anti-Inf reaction 00 l lammator s to y Drug) drug Varenicl Propensi Active GI Severe Method i ine ty to Intolerance 8-[address] adverse 00:00: /vomiting Hospit a reaction 00 l s to drug Duloxeti Propensi Active Swelling Meth geovani ne ty to 05-19 st adverse 00:00: Hospita reaction 00 l s to drug Quetiapi Propensi Active Swelling Meth geovani ne ty to 05-19 st adverse 00:00: Hospita reaction 00 l s to drug Bupropio Propensi Active Other (See Become Me thodi n Hcl ty to Comments) 05-[address] adverse 00:00: angry Hospita reaction 00 l s to drug Duloxeti Propensi Active Swelling Univ ers ne ty to 2-24 ity of adverse 00:00: [place] reaction 00 Medical s Branch Quetiapi Propensi Active Swelling Univ ers ne ty to 2-24 ity of Fumarate adverse 00:00: [place] reaction 00 Medical s Branch Bupropio Propensi Active Swelling Univ ers n Hcl ty to 2-24 ity of adverse 00:00: [place] reaction 00 Medical s Branch DULOXETI DRUG Active Swelling Univer s NE INGREDI 2-24 ity of 00:00: [place] 00 Medical Branch QUETIAPI DRUG Active Swelling Univer s NE INGREDI 2-24 ity of FUMARATE 00:00: [place] [facility] BUPROPIO DRUG Active Swelling Univer s N HCL INGREDI 2-24 ity of 00:00: [place] 00 Medical [place] Social History Social Habit Start Date Stop Date Quantity Comments Source Exposure to Not sure [facility] SARS-CoV-2 (event) [facility] History of tobacco Cigarette Smoker University of use [facility] History SDOH University o f Alcohol Frequency [facility] edical Branch History [facility] University o f Alcohol Std Drinks [place] [facility] [place] History [facility] o f Alcohol Binge [facility] al [place] Cigarettes smoked 2020-12-14 2020-12-[address] current (pack per 00:00:00 00:00:00 Hospita l day) - Reported Cigarette 2020-12-14 2020-12-14 [facility] pack-years 00:00:00 00:00:00 Hospital Tobacco use and 2020-12-14 2020-12-14 Never used [facility] exposure 00:00:00 00:00:00 Hospital Alcohol intake 2020-12-14 2020-12-14 0 /d [facility] 00:00:00 00:00:00 Hospital Alcohol Comment 2015-12-25 2015-12-25 Social Drinker Unive rsity of 00:00:00 00:00:00 [facility] Sex Ass[birth year] At [birth year] [facility] 00:00:00 00:00:00 Hospital Smoking Status Start Date Stop Date Source Tobacco [facility] Current every day smoker 2021-05-31 00:00:00 Uni versity of [facility] Light tobacco smoker 2020-12-14 00:00:[address] Medications Ordered Filled Start Stop Current Ordering Indication Dosage Frequency Signature Comments Components Source Medication Medication Date Date Medication? Clinician (SIG) Name Name furosemide 2020-11 Yes 20mg Q.5D Take 20 mg M ethodi (LASIX) 20 0-[address] mg tablet 13:44: (two) Hospita 25 times a l day. pantoprazol 2020-11 Yes 40mg QD Take 40 mg Methodi e 0-[address] (PROTONIX) 13:44: every Hospit a 40 MG EC 25 morning. l tablet rOPINIRole 2020-11 Yes 2mg QD Take 2 mg Me thodi (REQUIP) 2 0-[address] MG tablet 13:44: nightly. Hosp jah 25 l traZODone 2020-11 Yes 150mg QD Take 150 Met hodi (DESYREL) 0-[address] 150 MG 13:44: mouth Hospita tablet 25 nightly. l hydromorPHO 2020-11 Yes [id number] 4mg Q8H Take 4 mg Methodi NE 0-[address] (DILAUDID) 13:44: every 8 Hosp jah 4 MG tablet 25 (eight) l hours as needed for moderate pain .acute pain. carvediloL 2020-11 Yes 6.25mg QD Take 6.25 Methodi (COREG) 0-[address] 3.125 MG 13:44: mouth Hospita tablet 25 daily. l Take if systolic is >140 atorvastati 2020-11 Yes 40mg QD Take 40 mg Methodi n (LIPITOR) 0-[address] 40 mg 13:44: every Hospita tablet 25 evening. l lubiproston 2020-11 Yes 24ug QD Take 24 Met hodi e (AMITIZA) 0-[address] 24 MCG 13:44: mouth Hospita capsule 25 every l morning. clonAZEPAM 2020-11 Yes 1mg Q.[id number] Take 1 mg Methodi (KlonoPIN) 0-04 [id number] mouth [address] 1 MG tablet 13:44: 3D (three) Hos jonathan 25 times a l day as needed for anxiety. vortioxetin 2020-11 Yes 20mg QD Take 20 mg Methodi e 0-[address] (Trintellix 13:44: every Hospi ta ) 20 mg 25 morning. l tablet hydrALAZINE 2020-11 Yes 50mg QD Take 50 mg Methodi (APRESOLINE 0-[address] ) 50 MG 13:44: daily. Hospita tablet 25 l amLODIPine 2020-11 Yes 2.5mg QD Take 2.5 Me thodi (NORVASC) 0-[address] 2.5 mg 13:44: mouth Hospita tablet 25 daily. l levothyroxi 2020-11 Yes 25ug QD Take 25 Met hodi ne 0-[address] (SYNTHROID) 13:44: mouth Hospi ta 25 mcg 25 daily. l tablet aspirin 2020-11 Yes 81mg QD Take 81 mg Meth geovani (ECOTRIN) 0-[address] 81 MG 13:44: daily. Hospita enteric 25 l coated tablet NON 2020-11 Yes [id number] Methodi FORMULARY 0-[address] 13:44: --- all, 1 Hospita 25 tab in AM l valproic 2021-1 Yes 250mg Q.5D Take 250 Meth geovani acid 0-[address] (Depakene) 13:44: mouth 2 Hosp jah 250 mg 25 (two) l capsule times a day. furosemide Yes 20mg Take 20 mg U nivers 20 mg 5-26 by mouth ity of tablet 22:50: every [place] morning Medical and Branch evening. pantoprazol Yes 40mg Take 40 mg Univers e 5-26 by mouth ity of (PROTONIX) 22:50: daily. [place] 40 mg EC Medical tablet Branch citalopram Yes 20mg Take 20 mg U nivers (CELEXA) 20 5-26 by mouth ity of mg tablet 22:50: daily. Medical Branch traZODONE Yes 50mg Take 50 mg Un christie (DESYREL) 5-26 by mouth ity of 50 mg 22:50: at [place] [facility] 01 bedtime. Medical Branch rOPINIRole Yes 2mg Take 2 mg Un christie (REQUIP) 2 5-26 by mouth ity o f mg tablet 22:50: at [place] [address] bedtime. Medical Branch tiZANidine Yes 2mg Take 2 mg Un christie (ZANAFLEX) 5-26 by mouth 2 ity of 2 mg 22:50: (two) [place] capsule 01 times Medical daily as Branch needed for Muscle Spasms. DOCUSATE Yes 1{tbl} Take 1 Tab U nivers CALCIUM 5-26 by mouth ity of (STOOL 22:50: as needed [place] SOFTENER 01 for Medical ORAL) Constipati Branch on. aspirin 81 Yes 81mg Take 81 mg U nivers mg EC 5-26 by mouth ity of tablet 22:50: daily. Medical Branch acetaminoph Yes Take by Un christie en 5-26 mouth ity of (TYLENOL) 22:50: every 6 [place] 325 mg 01 (six) Medical tablet hours as Branch needed for Pain (scale 1-3). amLODIPine Yes 5mg Take 5 mg Un christie 5 mg tablet 5-26 by mouth ity of 22:50: daily. Medical Branch magnesium Yes Take by Univ ers oxide 400 5-26 mouth. ity of mg 22:50: [place] magnesium Medical Tab Branch biotin 1 mg Yes Take by Un christie Cap 5-26 mouth. ity of 22:50: Medical Branch furosemide Yes 20mg Take 20 mg U nivers 20 mg 5-26 by mouth ity of tablet 22:50: every morning Medical and Branch evening. pantoprazol Yes 40mg Take 40 mg Univers e 5-26 by mouth ity of (PROTONIX) 22:50: daily. [place] 40 mg EC Medical tablet Branch citalopram Yes 20mg Take 20 mg U nivers (CELEXA) 20 5-26 by mouth ity of mg tablet 22:50: daily. Medical Branch traZODONE Yes 50mg Take 50 mg Un christie (DESYREL) 5-26 by mouth ity of 50 mg 22:50: at [place] tablet 01 bedtime. Medical Branch rOPINIRole Yes 2mg Take 2 mg Un christie (REQUIP) 2 5-26 by mouth ity o f mg tablet 22:50: at [place] [address] bedtime. Medical Branch tiZANidine Yes 2mg Take 2 mg Un christie (ZANAFLEX) 5-26 by mouth 2 ity of 2 mg 22:50: (two) [place] capsule 01 times Medical daily as Branch needed for Muscle Spasms. DOCUSATE Yes 1{tbl} Take 1 Tab U nivers CALCIUM 5-26 by mouth ity of (STOOL 22:50: as needed [place] SOFTENER for Medical ORAL) Constipati Branch on. aspirin 81 Yes 81mg Take 81 mg U nivers mg EC 5-26 by mouth ity of tablet 22:50: daily. Medical Branch acetaminoph Yes Take by Un christie en 5-26 mouth ity of (TYLENOL) 22:50: every 6 [place] 325 mg (six) Medical tablet hours as Branch needed for Pain (scale 1-3). amLODIPine Yes 5mg Take 5 mg Un christie 5 mg tablet 5-26 by mouth ity of 22:50: daily. Medical Branch magnesium Yes Take by Univ ers oxide 400 5-26 mouth. ity of mg 22:50: [place] magnesium Medical Tab Branch biotin 1 mg Yes Take by Un christie Cap 5-26 mouth. ity of 22:50: Medical Branch furosemide Yes 20mg Take 20 mg U nivers 20 mg 5-26 by mouth ity of tablet 22:50: every morning Medical and Branch evening. pantoprazol Yes 40mg Take 40 mg Univers e 5-26 by mouth ity of (PROTONIX) 22:50: daily. [place] 40 mg EC Medical tablet Branch citalopram Yes 20mg Take 20 mg U nivers (CELEXA) 20 5-26 by mouth ity of mg tablet 22:50: daily. Medical Branch traZODONE Yes 50mg Take 50 mg Un christie (DESYREL) 5-26 by mouth ity of 50 mg 22:50: at [place] tablet 01 bedtime. Medical Branch rOPINIRole Yes 2mg Take 2 mg Un christie (REQUIP) 2 5-26 by mouth ity o f mg tablet 22:50: at [place] [address] bedtime. Medical Branch tiZANidine Yes 2mg Take 2 mg Un christie (ZANAFLEX) 5-26 by mouth 2 ity of 2 mg 22:50: (two) [place] capsule 01 times Medical daily as Branch needed for Muscle Spasms. DOCUSATE Yes 1{tbl} Take 1 Tab U nivers CALCIUM 5-26 by mouth ity of (STOOL 22:50: as needed [place] SOFTENER for Medical ORAL) Constipati Branch on. aspirin 81 Yes 81mg Take 81 mg U nivers mg EC 5-26 by mouth ity of tablet 22:50: daily. Medical Branch acetaminoph Yes Take by Un christie en 5-26 mouth ity of (TYLENOL) 22:50: every 6 [place] 325 mg (six) Medical tablet hours as Branch needed for Pain (scale 1-3). amLODIPine Yes 5mg Take 5 mg Un christie 5 mg tablet 5-26 by mouth ity of 22:50: daily. Medical Branch magnesium Yes Take by Univ ers oxide 400 5-26 mouth. ity of mg 22:50: [place] magnesium Medical Tab Branch furosemide Yes 20mg Take 20 mg U nivers 20 mg 5-26 by mouth ity of tablet 22:50: every morning Medical and Branch evening. pantoprazol Yes 40mg Take 40 mg Univers e 5-26 by mouth ity of (PROTONIX) 22:50: daily. [place] 40 mg EC Medical tablet Branch citalopram Yes 20mg Take 20 mg U nivers (CELEXA) 20 5-26 by mouth ity of mg tablet 22:50: daily. Medical Branch traZODONE Yes 50mg Take 50 mg Un christie (DESYREL) 5-26 by mouth ity of 50 mg 22:50: at [facility] bedtime. Medical Branch rOPINIRole Yes 2mg Take 2 mg Un christie (REQUIP) 2 5-26 by mouth ity o f mg tablet 22:50: at [place] bedtime. Medical Branch tiZANidine Yes 2mg Take 2 mg Un christie (ZANAFLEX) 5-26 by mouth 2 ity of 2 mg 22:50: (two) [place] capsule 01 times Medical daily as Branch needed for Muscle Spasms. DOCUSATE Yes 1{tbl} Take 1 Tab U nivers CALCIUM 5-26 by mouth ity of (STOOL 22:50: as needed [place] SOFTENER for Medical ORAL) Constipati Branch on. aspirin 81 Yes 81mg Take 81 mg U nivers mg EC 5-26 by mouth ity of tablet 22:50: daily. Medical Branch acetaminoph Yes Take by Un christie en 5-26 mouth ity of (TYLENOL) 22:50: every 6 [place] 325 mg 01 (six) Medical tablet hours as Branch needed for Pain (scale 1-3). amLODIPine Yes 5mg Take 5 mg Un christie 5 mg tablet 5-26 by mouth ity of 22:50: daily. Medical Branch magnesium Yes Take by Univ ers oxide 400 5-26 mouth. ity of mg 22:50: [place] magnesium Medical Tab Branch biotin 1 mg Yes Take by Un christie Cap 5-26 mouth. ity of 22:50: Medical Branch furosemide Yes 20mg Take 20 mg U nivers 20 mg 5-26 by mouth ity of tablet 22:50: every morning Medical and Branch evening. pantoprazol Yes 40mg Take 40 mg Univers e 5-26 by mouth ity of (PROTONIX) 22:50: daily. [place] 40 mg EC Medical tablet Branch citalopram Yes 20mg Take 20 mg U nivers (CELEXA) 20 5-26 by mouth ity of mg tablet 22:50: daily. Medical Branch traZODONE Yes 50mg Take 50 mg Un christie (DESYREL) 5-26 by mouth ity of 50 mg 22:50: at [facility] bedtime. Medical Branch rOPINIRole Yes 2mg Take 2 mg Un christie (REQUIP) 2 -26 by mouth ity o f mg tablet 22:50: at [place] bedtime. Medical Branch tiZANidine Yes 2mg Take 2 mg Un christie (ZANAFLEX) - by mouth 2 ity of 2 mg 22:50: (two) [place] capsule 01 times Medical daily as Branch needed for Muscle Spasms. DOCUSATE Yes 1{tbl} Take 1 Tab U nivers CALCIUM -26 by mouth ity of (STOOL 22:50: as needed [place] SOFTENER for Medical ORAL) Constipati Branch on. aspirin 81 Yes 81mg Take 81 mg U nivers mg EC - by mouth ity of tablet 22:50: daily. Medical Branch acetaminoph Yes Take by Un christie en -26 mouth ity of (TYLENOL) 22:50: every 6 [place] 325 mg 01 (six) Medical tablet hours as Branch needed for Pain (scale 1-3). amLODIPine Yes 5mg Take 5 mg Un christie 5 mg tablet -26 by mouth ity of 22:50: daily. Medical Branch magnesium Yes Take by Univ ers oxide 400 5-26 mouth. ity of mg 22:50: [place] magnesium Medical Tab Branch biotin 1 mg Yes Take by Un christie Cap 5- mouth. ity of 22:50: Medical Branch furosemide Yes 20mg Take 20 mg U nivers 20 mg 5-26 by mouth ity of tablet 22:50: every morning Medical and Branch evening. pantoprazol Yes 40mg Take 40 mg Univers e 5-26 by mouth ity of (PROTONIX) 22:50: daily. [place] 40 mg EC Medical tablet Branch citalopram Yes 20mg Take 20 mg U nivers (CELEXA) 20 5-26 by mouth ity of mg tablet 22:50: daily. Medical Branch traZODONE Yes 50mg Take 50 mg Un christie (DESYREL) 5-26 by mouth ity of 50 mg 22:50: at [facility] bedtime. Medical Branch rOPINIRole Yes 2mg Take 2 mg Un christie (REQUIP) 2 -26 by mouth ity o f mg tablet 22:50: at [place] bedtime. Medical Branch tiZANidine Yes 2mg Take 2 mg Un christie (ZANAFLEX) - by mouth 2 ity of 2 mg 22:50: (two) [place] capsule 01 times Medical daily as Branch needed for Muscle Spasms. DOCUSATE Yes 1{tbl} Take 1 Tab U nivers CALCIUM -26 by mouth ity of (STOOL 22:50: as needed [place] SOFTENER for Medical ORAL) Constipati Branch on. aspirin 81 Yes 81mg Take 81 mg U nivers mg EC - by mouth ity of tablet 22:50: daily. Medical Branch acetaminoph Yes Take by Un christie en -26 mouth ity of (TYLENOL) 22:50: every 6 [place] 325 mg 01 (six) Medical tablet hours as Branch needed for Pain (scale 1-3). amLODIPine Yes 5mg Take 5 mg Un christie 5 mg tablet -26 by mouth ity of 22:50: daily. Medical Branch magnesium Yes Take by Univ ers oxide 400 5-26 mouth. ity of mg 22:50: [place] magnesium Medical Tab Branch biotin 1 mg Yes Take by Un christie Cap 5- mouth. ity of 22:50: Medical Branch furosemide Yes 20mg Take 20 mg U nivers 20 mg 5-26 by mouth ity of tablet 17:50: every morning Medical and Branch evening. pantoprazol Yes 40mg Take 40 mg Univers e 5-26 by mouth ity of (PROTONIX) 17:50: daily. [place] 40 mg EC Medical tablet Branch citalopram Yes 20mg Take 20 mg U nivers (CELEXA) 20 5-26 by mouth ity of mg tablet 17:50: daily. Medical Branch traZODONE Yes 50mg Take 50 mg Un christie (DESYREL) 5-26 by mouth ity of 50 mg 17:50: at [facility] bedtime. Medical Branch rOPINIRole Yes 2mg Take 2 mg Un christie (REQUIP) 2 -26 by mouth ity o f mg tablet 17:50: at [place] bedtime. Medical Branch tiZANidine Yes 2mg Take 2 mg Un christie (ZANAFLEX) - by mouth 2 ity of 2 mg 17:50: (two) [place] capsule 01 times Medical daily as Branch needed for Muscle Spasms. DOCUSATE Yes 1{tbl} Take 1 Tab U nivers CALCIUM - by mouth ity of (STOOL 17:50: as needed [place] SOFTENER for Medical ORAL) Constipati Branch on. aspirin 81 Yes 81mg Take 81 mg U nivers mg EC - by mouth ity of tablet 17:50: daily. Medical Branch acetaminoph Yes Take by Un christie en - mouth ity of (TYLENOL) 17:50: every 6 [place] 325 mg 01 (six) Medical tablet hours as Branch needed for Pain (scale 1-3). amLODIPine Yes 5mg Take 5 mg Un christie 5 mg tablet -26 by mouth ity of 17:50: daily. Medical Branch magnesium Yes Take by Univ ers oxide 400 5- mouth. ity of mg 17:50: [place] magnesium Medical Tab Branch biotin 1 mg Yes Take by Un christie Cap - mouth. ity of 17:50: Medical Branch furosemide Yes 20mg Take 20 mg U nivers 20 mg 5-26 by mouth ity of tablet 17:50: every morning Medical and Branch evening. pantoprazol Yes 40mg Take 40 mg Univers e 5-26 by mouth ity of (PROTONIX) 17:50: daily. [place] 40 mg EC Medical tablet Branch citalopram Yes 20mg Take 20 mg U nivers (CELEXA) 20 5-26 by mouth ity of mg tablet 17:50: daily. Medical Branch traZODONE Yes 50mg Take 50 mg Un christie (DESYREL) 5-26 by mouth ity of 50 mg 17:50: at [facility] bedtime. Medical Branch rOPINIRole Yes 2mg Take 2 mg Un christie (REQUIP) 2 -26 by mouth ity o f mg tablet 17:50: at [place] bedtime. Medical Branch tiZANidine Yes 2mg Take 2 mg Un christie (ZANAFLEX) - by mouth 2 ity of 2 mg 17:50: (two) [place] capsule 01 times Medical daily as Branch needed for Muscle Spasms. DOCUSATE Yes 1{tbl} Take 1 Tab U nivers CALCIUM - by mouth ity of (STOOL 17:50: as needed [place] SOFTENER for Medical ORAL) Constipati Branch on. aspirin 81 Yes 81mg Take 81 mg U nivers mg EC - by mouth ity of tablet 17:50: daily. Medical Branch acetaminoph Yes Take by Un christie en - mouth ity of (TYLENOL) 17:50: every 6 [place] 325 mg 01 (six) Medical tablet hours as Branch needed for Pain (scale 1-3). amLODIPine Yes 5mg Take 5 mg Un christie 5 mg tablet -26 by mouth ity of 17:50: daily. Medical Branch magnesium Yes Take by Univ ers oxide 400 5- mouth. ity of mg 17:50: [place] magnesium Medical Tab Branch biotin 1 mg Yes Take by Un christie Cap mouth. ity of 17:50: [place] Medical Branch HYDROmorpho 2020- No 8mg Take 8 mg Univers ne 04-03 by mouth ity of (DILAUDID) 17:02: 00:00 every 6 [place] as 8 mg tablet 51 :00 (six) Medical hours as Branch needed for Pain. atropine Yes .5mg 0.5 mg, IV Uni vers injection 04-03 Push, PRN ity o f 0.5 mg 05:33: - SEE [place] INSTRUCTIO Medical NS, Branch Starting Thu04/03/21 at 0033, Until Discontinu ed, Routine, Symptomati c Bradycardi a dextrometho Yes 10mL 10 mL, Univ ers rphan-guaif 04-03 Oral, ity of enesin 03:58: Q6HPRN, [place] (ROBITUSSIN 20 Starting Medi dyan DM) 10-100 Thu Branch mg/5 mL 04/02/21 at solution 10 2258, mL Until Discontinu ed, Routine, Cough lidocaine 2020- No 1{patch 1 Patch, Univers (LIDODERM) 04-03 } Topical, ity of 5 % (700 02:00: 13:31 Administer [place] mg/patch) 00 :00 over 12 Medical patch 1 Hours, Branch Patch ONCE, 1 dose, Thu04/02/21 at 2100, Routine amLODIPine Yes 5mg 5 mg, Univer s (NORVASC) 04-03 Oral, ity of tablet 5 mg 01:00: [place]ILY[place] First dose Medical (after Branch last modificati on) on Thu04/02/21 at 2000, Until Discontinu ed, Routine HYDROmorpho 0 Yes 2745 4mg Take 0.5 Un christie ne 8 mg 5-26 tablets by ity of tablet 00:00: mouth [place] 00 every 12 Medical (twelve) Branch hours as needed for Pain. Indication s: chronic pain HYDROmorpho 2020-0 Yes 2745 4mg Take 0.5 Un christie ne 8 mg 5-26 tablets by ity of tablet 00:00: mouth [place] every 12 Medical (twelve) Branch hours as needed for Pain. Indication s: chronic pain HYDROmorpho 2021-0 Yes 2745 4mg Take 0.5 Un christie ne 8 mg 5-26 tablets by ity of tablet 00:00: mouth [place] 00 every 12 Medical (twelve) Branch hours as needed for Pain. Indication s: chronic pain HYDROmorpho 2020-0 Yes 2745 4mg Take 0.5 Un christie ne 8 mg 5-26 tablets by ity of tablet 00:00: mouth [place] 00 every 12 Medical (twelve) Branch hours as needed for Pain. Indication s: chronic pain HYDROmorpho 0 Yes 2745 4mg Take 0.5 Un christie ne 8 mg 5-26 tablets by ity of tablet 00:00: mouth [place] 00 every 12 Medical (twelve) Branch hours as needed for Pain. Indication s: chronic pain HYDROmorpho Yes 2745 4mg Take 0.5 Un [place] ne 8 mg 5-26 tablets by ity of tablet 00:00: mouth [place] 00 every 12 Medical (twelve) Branch hours as needed for Pain. Indication s: chronic pain HYDROmorpho Yes 2745 4mg Take 0.5 Un christ[facility] ne 8 mg 5-26 tablets by ity of tablet 00:00: mouth [place] 00 every 12 Medical (twelve) Branch hours as needed for Pain. Indication s: chronic pain enoxaparin Yes 40mg 40 mg, Unive rs (LOVENOX) 5-25 Subcutaneo ity of injection 22:00: [place], [place] 40 mg 00 First dose Medical on [facility] 04/02/21 at 1700, Until Discontinu ed, Routine atorvastati 0 Yes 20mg 20 mg, Univ ers n (LIPITOR) 5-25 Oral, QPM, it y of tablet 20 22:00: First dose [place] mg 00 on [facility] 04/02/21 at Branch 1700, Until Discontinu ed, Routine magnesium 2020-0 202- No 296mL 296 mL, Uni vers citrate 5-25 05-25 Oral, ity of solution 17:15: 21:48 ONCE, 1 [place] 296 mL 00 :00 dose, [facility] 04/02/21 at Branch 1215, Routine pantoprazol 0 Yes 40mg 40 mg, Univ ers e 5-25 Oral, ity of (PROTONIX) 14:00: DAILY, [place] EC tablet 00 First dose Medi dyan 40 mg on [facility] 04/02/21 at 0900, Until Discontinu ed, Routine aspirin EC Yes 81mg 81 mg, Unive rs tablet 81 5-25 Oral, ity of mg 14:00: DAILY, [place] 00 First dose Medical on [facility] 04/02/21 at 0900, Until Discontinu ed, Routine sennosides- 0 Yes 2{tbl} 2 tablet, Univers docusate 5-25 Oral, BID, ity o f sodium 13:00: First dose [place] (SENOKOT-S) [facility] 04[facility]02[facility]21 at Bran ch per tablet 0800, 2 tablet Until Discontinu ed, Routine polyethylen Yes 17g 17 g, Unive rs e glycol 5-25 Oral, BID, ity o f 3350 powder 13:00: First dose [place] 17 g 00 on [facility] 04/02/21 at Branch 0800, Until Discontinu ed, Routine ipratropium 0 Yes 3mL 3 mL, Unive rs -albuteroL 5-25 Inhalation ity of (DUONEB) 13:00: , QID, [place] 0.5 mg-3 00 First dose Medic al mg(2.5 mg on Thu [place])/3 mL 04/02/21 at nebulizer 0800, solution 3 Until mL Discontinu ed, Routine levothyroxi 0 Yes 25ug 25 mcg, Uni vers ne 5-25 Oral, ity of (SYNTHROID) 11:00: QAM-0600, [place] tablet 25 First dose Medi dyan mcg on [facility] 04/02/21 at 0600, Until Discontinu ed, Routine lactated 2020-0 202- No 1000mL at 200 Univ ers ringers IV 5-25 05-25 mL/hr, ity of infusion 08:00: 07:12 1,000 mL, [place] as 1,000 mL 00 :00 Intravenou Medic al s, ONCE, 1 Branch dose, [facility] 04/02/21 at 0300, Routine ipratropium 2020-0 Yes 3mL 3 mL, Unive rs -albuteroL 5-25 Inhalation ity of (DUONEB) 07:37: , Q6HPRN, [place] 0.5 mg-3 55 Starting Medical mg(2.5 mg [facility] base)/3 mL 04/02/21 at nebulizer 0237, solution 3 Until mL Discontinu ed, Routine, Wheezing, Shortness of Breath naloxone Yes .2mg 0.2 mg, Univer s (NARCAN) 5-25 Slow IV ity of injection 06:53: Push, [place] 0.2 mg 33 SEE-INSTRU Medical CTIONS, Branch Starting e 04/02/21 at 0153, Until Discontinu ed, Routine metoprolol 2020- No 25mg Take 25 mg Univers tartrate 5-25 05-25 by mouth ity of (LOPRESSOR) 06:52: 00:00 daily. [place] 25 mg 52 :00 Medical tablet Branch lisinopril 2020- No Take by Un christie (PRINIVIL,Z 5-25 05-25 mouth ity of ESTRIL) 40 06:52: 00:00 daily. [place] mg tablet 52 :00 Medical Branch POTASSIUM 2020- No 10meq Take 10 Uni vers CHLORIDE 5-25 05-25 mEq by ity of (KLOR-CON 06:52: 00:00 mouth [place] 10 ORAL) 52 :00 daily. Medical Branch multivitami 2020- No 1{tbl} Take 1 Tab Univers n tablet 5-25 05-25 by mouth ity of 06:52: 00:00 daily. [place] 52 :00 Medical Branch BIOTIN ORAL 2020- No 1{tbl} Take 1 Tab Univers 5-25 05-25 by mouth ity of 06:52: 00:00 daily. [place] 52 :00 Medical Branch acetaminoph Yes 650mg 650 mg, Un christie en 5-25 Oral, ity of (TYLENOL) 06:52: Q6HPRN, [place] tablet 650 06 Starting Medic al mg [facility] 04/02/21 at 0152, Until Discontinu ed, Routine, Pain (scale 1-3), Temp > 38.5 C HYDROcodone 2020- No 1{tbl} Take 1 U nivers -acetaminop 5-25 05-25 tablet by it y of hen (Traxo) 06:45: 00:00 mouth [place] 7.5-325 mg 43 :00 every 6 Medica l per tablet (six) Branch hours as needed for Pain. cefTRIAXone No 1000mg 1,000 mg, Univers (ROCEPHIN) 04-02-25 IV ity of 1,000 mg in 04:30: 04:21 [place], [place] NaCl 0.9% 00 :00 ONCE, 1 Medical (NS) 50 mL dose, Mon Bran ch MINI-BAG 04/01/21 at 2330, 50 mL
Reas on for Anti-Infec tive: Documented Infection< br>Documen theodore Infection Site: Urine
D uration of Therapy: Other (see Comments) gabapentin 2020- No 300mg Q.5D Take 1 Met hodi (Neurontin) 12-13-[address] 300 mg 00:00: 05:59 (300 mg [facility]osp[facility] capsule 00 :00 total) by l mouth 2 (two) times a day for 30 days. celecoxib 2020- No 200mg Q.5D Take 1 Meth geovani (CeleBREX) 12-13- capsule st 200 MG 00:00: 05:59 (200 mg Hospita capsule 00 :00 total) by l mouth 2 (two) times a day for 30 days. HYDROcodone 2020- No 61585 1{tbl} Q6H Take 1 Methodi -acetaminop 12-13-[address] h[facility]ia (MarkaVIP) 00:00: 05:59 mouth [facility]osp jah 10-325 mg 00 :00 every 6 l per tablet (six) hours as needed for moderate pain for up to 10 days .acute pain. Max Daily Amount: 4 tablets methocarbam 2020- No 500mg Q.25D Take 1 M ethodi oL 12-13-[address] (Robaxin) 00:00: 05:59 (500 mg Hosp jah 500 MG 00 :00 total) by l tablet mouth 4 (four) times a day for 10 days. levETIRAcet 2020- No 500mg Q.5D Take 500 Methodi am (KEPPRA) 2-02 02-[address] 500 MG 19:07: 00:00 mouth 2 Hospita tablet 15 :00 (two) l times a day. traMADoL 0 2020- [place] 118[address] 50mg Q4H Take 1 Metho di (ULTRAM) 50 13 -24 tablet (50 s t mg tablet 00:00: 05:59 mg total) [facility] 00 :00 by mouth l every 4 (four) hours as needed for moderate pain for up to 10 days .acute pain. traZODONE 2019-11 Yes 50mg Take 50 mg Un christie (DESYREL) 0-22 by mouth ity of 50 mg 20:09: at [place] tablet 19 bedtime. Medical Branch traZODONE 2019-11 Yes 50mg Take 50 mg Un [place] (DESYREL) 0-22 by mouth ity of 50 mg 20:09: at [place] tablet 19 bedtime. Medical Branch magnesium 2019-11 Yes Take by Univ ers oxide 400 0-22 mouth. ity of mg 20:09: magnesium Medical Tab Branch traZODONE 2019-11 Yes 50mg Take 50 mg Un christie (DESYREL) 0-22 by mouth ity of 50 mg 20:09: at [place] tablet 19 bedtime. Medical Branch magnesium 2019-11 Yes Take by Univ ers oxide 400 0-22 mouth. ity of mg 20:09: [place] magnesium Medical Tab Branch traZODONE 2019-11 Yes 50mg Take 50 mg Un christie (DESYREL) 0-22 by mouth ity of 50 mg 20:09: at [place] tablet 19 bedtime. Medical Branch magnesium 2019-11 Yes Take by Univ ers oxide 400 0-22 mouth. ity of mg 20:09: [place] magnesium 19 Medical Tab Branch traZODONE 2019-11 Yes 50mg Take 50 mg Un christie (DESYREL) 0-22 by mouth ity of 50 mg 20:09: at [place] tablet 19 bedtime. Medical Branch magnesium 2019-11 Yes Take by Univ ers oxide 400 0-22 mouth. ity of mg 20:09: [place] magnesium 19 Medical Tab Branch traZODONE 2019-11 Yes 50mg Take 50 mg Un christie (DESYREL) 0-22 by mouth ity of 50 mg 20:09: at [place] tablet 19 bedtime. Medical Branch magnesium 2019-11 Yes Take by Univ ers oxide 400 0-22 mouth. ity of mg 20:09: [place] magnesium 19 Medical Tab Branch traZODONE 2019- Yes 50mg Take 50 mg Un christie (DESYREL) 0-22 by mouth ity of 50 mg 20:09: at [place] tablet 19 bedtime. Medical Branch magnesium 2019- Yes Take by Univ ers oxide 400 0-22 mouth. ity of mg 20:09: [place] magnesium 19 Medical Tab Branch traZODONE 2019- Yes 50mg Take 50 mg Un christie (DESYREL) 0-22 by mouth ity of 50 mg 20:09: at [place] tablet 19 bedtime. Medical Branch magnesium 2019- Yes Take by Univ ers oxide 400 0-22 mouth. ity of mg 20:09: [place] magnesium 19 Medical Tab Branch traZODONE 2019- Yes 50mg Take 50 mg Un [place] (DESYREL) 0-22 by mouth ity of 50 mg 20:09: at [place] tablet 19 bedtime. Medical Branch magnesium 2019- Yes Take by Univ ers oxide 400 0-22 mouth. ity of mg 20:09: [place] magnesium 19 Medical Tab Branch traZODONE 2019- Yes 50mg Take 50 mg Un christie (DESYREL) 0-22 by mouth ity of 50 mg 20:09: at [place] tablet 19 bedtime. Medical Branch magnesium 2019- Yes Take by Univ ers oxide 400 0-22 mouth. ity of mg 20:09: [place] magnesium 19 Medical Tab Branch traZODONE 2019- Yes 50mg Take 50 mg Un christ[facility] (DESYREL) 0-22 by mouth ity of 50 mg 20:09: at [place] tablet 19 bedtime. Medical Branch magnesium 2019- Yes Take by Univ ers oxide 400 0-22 mouth. ity of mg 20:09: [place] magnesium 19 Medical Tab Branch traZODONE 2019- Yes 50mg Take 50 mg Un christie (DESYREL) 0-22 by mouth ity of 50 mg 20:09: at [place] tablet 19 bedtime. Medical Branch magnesium 2019- Yes Take by Univ ers oxide 400 0-22 mouth. ity of mg 20:09: [facility] 19 Medical Tab Branch furosemide 2019- Yes 20mg Take 20 mg U nivers (LASIX) 40 0-22 by mouth ity o f mg tablet 20:06: daily. [place] [address] Medical Branch pantoprazol 2019-11 Yes 40mg Take 40 mg Univers e 0-22 by mouth ity of (PROTONIX) 20:06: daily. [place] 40 mg EC Medical tablet Branch citalopram 2019-11 Yes 20mg Take 20 mg U nivers (CELEXA) 20 0-22 by mouth ity of mg tablet 20:06: daily. [place] [address] Medical Branch rOPINIRole 2019-11 Yes 2mg Take 2 mg [facility] (REQUIP) 2 0-22 by mouth ity o f mg tablet 20:06: at [place] [address] bedtime. Medical Branch tiZANidine 2019-11 Yes 2mg Take 2 mg [place] (ZANAFLEX) 0-22 by mouth 2 ity of 2 mg 20:06: (two) [place] capsule 52 times Medical daily as Branch needed for Muscle Spasms. HYDROmorpho 2019-11 Yes 8mg Take 8 mg U nivers ne 0-22 by mouth ity of (DILAUDID) 20:06: every 6 [place] 8 mg tablet 52 (six) Medical hours as Branch needed for Pain. BIOTIN ORAL 2019-11 Yes 1{tbl} Take 1 Tab Univers 0-22 by mouth ity of 20:06: daily. [address] Branch DOCUSATE 2019-11 Yes 1{tbl} Take 1 Tab U nivers CALCIUM 0-22 by mouth ity of (STOOL 20:06: as needed [place] SOFTENER for Medical ORAL) Constipati Branch on. amLODIPine 2019-11 Yes 5mg Take 5 mg [place] 5 mg tablet 0-22 by mouth ity of 20:06: daily. [address] Branch furosemide 2019-11 Yes 20mg Take 20 mg U nivers (LASIX) 40 0-22 by mouth ity o f mg tablet 20:06: daily. [address] Branch pantoprazol 2019-11 Yes 40mg Take 40 mg Univers e 0-22 by mouth ity of (PROTONIX) 20:06: daily. [place] 40 mg EC Medical tablet Branch citalopram 2019-11 Yes 20mg Take 20 mg U nivers (CELEXA) 20 0-22 by mouth ity of mg tablet 20:06: daily. [address] rOPINIRole 2019-11 Yes 2mg Take 2 mg [facility] (REQUIP) 2 0-22 by mouth ity o f mg tablet 20:06: at [place] [address] bedtime. Medical Branch tiZANidine 2019-11 Yes 2mg Take 2 mg [place] (ZANAFLEX) 0-22 by mouth 2 ity of 2 mg 20:06: (two) [place] capsule 52 times Medical daily as Branch needed for Muscle Spasms. HYDROmorpho 2019-11 Yes 8mg Take 8 mg U nivers ne 0-22 by mouth ity of (DILAUDID) 20:06: every 6 [place] 8 mg tablet 52 (six) Medical hours as Branch needed for Pain. BIOTIN ORAL 2019- Yes 1{tbl} Take 1 Tab Univers 0-22 by mouth ity of 20:06: daily. [place] [address] Medical Branch DOCUSATE 2019-11 Yes 1{tbl} Take 1 Tab U nivers CALCIUM 0-22 by mouth ity of (STOOL 20:06: as needed [place] SOFTENER for Medical ORAL) Constipati Branch on. amLODIPine 2019-11 Yes 5mg Take 5 mg [place] 5 mg tablet 0-22 by mouth ity of 20:06: daily. [place] [address] Medical Branch furosemide 2019-11 Yes 20mg Take 20 mg U nivers (LASIX) 40 0-22 by mouth ity o f mg tablet 20:06: daily. [place] [address] Medical Branch pantoprazol 2019-11 Yes 40mg Take 40 mg Univers e 0-22 by mouth ity of (PROTONIX) 20:06: daily. [place] 40 mg [facility] Medical tablet Branch citalopram 2019-11 Yes 20mg Take 20 mg U nivers (CELEXA) 20 0-22 by mouth ity of mg tablet 20:06: daily. [place] [address] Medical Branch rOPINIRole 2019-11 Yes 2mg Take 2 mg [facility] [place] (REQUIP) 2 0-22 by mouth ity o f mg tablet 20:06: at [place] [address] bedtime. Medical Branch tiZANidine 2019-11 Yes 2mg Take 2 mg [place] (ZANAFLEX) 0-22 by mouth 2 ity of 2 mg 20:06: (two) [place] capsule 52 times Medical daily as Branch needed for Muscle Spasms. HYDROmorpho 2019-11 Yes 8mg Take 8 mg U nivers ne 0-22 by mouth ity of (DILAUDID) 20:06: every 6 [place] 8 mg tablet 52 (six) Medical hours as Branch needed for Pain. BIOTIN ORAL 2019-11 Yes 1{tbl} Take 1 Tab Univers 0-22 by mouth ity of 20:06: daily. [place] [address] Medical Branch DOCUSATE 2019-11 Yes 1{tbl} Take 1 Tab U nivers CALCIUM 0-22 by mouth ity of (STOOL 20:06: as needed [place] SOFTENER 52 for Medical ORAL) Constipati Branch on. amLODIPine 2019-11 Yes 5mg Take 5 mg [place] 5 mg tablet 0-22 by mouth ity of 20:06: daily. [place] [address] Medical Branch furosemide 2019-11 Yes 20mg Take 20 mg U nivers (LASIX) 40 0-22 by mouth ity o f mg tablet 20:06: daily. [place] [address] Medical Branch pantoprazol 2019-11 Yes 40mg Take 40 mg Univers e 0-22 by mouth ity of (PROTONIX) 20:06: daily. [place] 40 [place] [id number] Medical tablet Branch citalopram 2019-11 Yes 20mg Take 20 mg U nivers (CELEXA) 20 0-22 by mouth ity of mg tablet 20:06: daily. [place] [address] Medical Branch rOPINIRole 2019-11 Yes 2mg Take 2 mg [facility] [place] (REQUIP) 2 0-22 by mouth ity o f mg tablet 20:06: at [place] [address] bedtime. Medical Branch tiZANidine 2019-11 Yes 2mg Take 2 mg [place] (ZANAFLEX) 0-22 by mouth 2 ity of 2 mg 20:06: (two) [place] capsule 52 times Medical daily as Branch needed for Muscle Spasms. HYDROmorpho 2019-11 Yes 8mg Take 8 mg U nivers ne 0-22 by mouth ity of (DILAUDID) 20:06: every 6 [place] 8 mg tablet 52 (six) Medical hours as Branch needed for Pain. BIOTIN ORAL 2019-11 Yes 1{tbl} Take 1 Tab Univers 0-22 by mouth ity of 20:06: daily. [place] [address] Medical Branch DOCUSATE 2019-11 Yes 1{tbl} Take 1 Tab U nivers CALCIUM 0-22 by mouth ity of (STOOL 20:06: as needed [place] SOFTENER 52 for Medical ORAL) Constipati Branch on. amLODIPine 2019-11 Yes 5mg Take 5 mg [place] 5 mg tablet 0-22 by mouth ity of 20:06: daily. [place] [address] Medical Branch furosemide 2019-11 Yes 20mg Take 20 mg U nivers (LASIX) 40 0-22 by mouth ity o f mg tablet 20:06: daily. [address] Branch pantoprazol 2019-11 Yes 40mg Take 40 mg Univers e 0-22 by mouth ity of (PROTONIX) 20:06: daily. [place] 40 mg EC Medical tablet Branch citalopram 2019-11 Yes 20mg Take 20 mg U nivers (CELEXA) 20 0-22 by mouth ity of mg tablet 20:06: daily. [place] [address] Medical Branch rOPINIRole 2019-11 Yes 2mg Take 2 mg [facility] [place] (REQUIP) 2 0-22 by mouth ity o f mg tablet 20:06: at [place] [address] bedtime. Medical Branch tiZANidine 2019-11 Yes 2mg Take 2 mg [place] (ZANAFLEX) 0-22 by mouth 2 ity of 2 mg 20:06: (two) [place] capsule 52 times Medical daily as Branch needed for Muscle Spasms. HYDROmorpho 2019-11 Yes 8mg Take 8 mg U nivers ne 0-22 by mouth ity of (DILAUDID) 20:06: every 6 [place] 8 mg tablet 52 (six) Medical hours as Branch needed for Pain. BIOTIN ORAL 2019-11 Yes 1{tbl} Take 1 Tab Univers 0-22 by mouth ity of 20:06: daily. [address] Branch DOCUSATE 2019-11 Yes 1{tbl} Take 1 Tab U nivers CALCIUM 0-22 by mouth ity of (STOOL 20:06: as needed [place] SOFTENER for Medical ORAL) Constipati Branch on. amLODIPine 2019-11 Yes 5mg Take 5 mg [place] 5 mg tablet 0-22 by mouth ity of 20:06: daily. [place] [address] Medical Branch furosemide 2019-11 Yes 20mg Take 20 mg U nivers (LASIX) 40 0-22 by mouth ity o f mg tablet 20:06: daily. [place] [address] Medical Branch pantoprazol 2019-11 Yes 40mg Take 40 mg Univers e 0-22 by mouth ity of (PROTONIX) 20:06: daily. [place] 40 mg EC 52 Medical tablet Branch citalopram 2019-11 Yes 20mg Take 20 mg U nivers (CELEXA) 20 0-22 by mouth ity of mg tablet 20:06: daily. [place] [address] Medical Branch rOPINIRole 2019-11 Yes 2mg Take 2 mg [facility] [place] (REQUIP) 2 0-22 by mouth ity o f mg tablet 20:06: at [place] [address] bedtime. Medical Branch tiZANidine 2019-11 Yes 2mg Take 2 mg [place] (ZANAFLEX) 0-22 by mouth 2 ity of 2 mg 20:06: (two) [place] capsule 52 times Medical daily as Branch needed for Muscle Spasms. HYDROmorpho 2019-11 Yes 8mg Take 8 mg U nivers ne 0-22 by mouth ity of (DILAUDID) 20:06: every 6 [place] 8 mg tablet 52 (six) Medical hours as Branch needed for Pain. BIOTIN ORAL 2019-11 Yes 1{tbl} Take 1 Tab Univers 0-22 by mouth ity of 20:06: daily. [place] [address] Medical Branch DOCUSATE 2019-11 Yes 1{tbl} Take 1 Tab U nivers CALCIUM 0-22 by mouth ity of (STOOL 20:06: as needed [place] SOFTENER for Medical ORAL) Constipati Branch on. amLODIPine 2019-11 Yes 5mg Take 5 mg [place] 5 mg tablet 0-22 by mouth ity of 20:06: daily. [place] [address] Medical Branch furosemide 2019-11 Yes 20mg Take 20 mg U nivers (LASIX) 40 0-22 by mouth ity o f mg tablet 20:06: daily. [place] [address] Medical Branch pantoprazol 2019-11 Yes 40mg Take 40 mg Univers e 0-22 by mouth ity of (PROTONIX) 20:06: daily. [place] 40 mg [facility] Medical tablet Branch citalopram 2019-11 Yes 20mg Take 20 mg U nivers (CELEXA) 20 0-22 by mouth ity of mg tablet 20:06: daily. [place] [address] Medical Branch rOPINIRole 2019-11 Yes 2mg Take 2 mg [place] (REQUIP) 2 0-22 by mouth ity o f mg tablet 20:06: at [place] [address] bedtime. Medical Branch tiZANidine 2019-11 Yes 2mg Take 2 mg [place] (ZANAFLEX) 0-22 by mouth 2 ity of 2 mg 20:06: (two) [place] capsule 52 times Medical daily as Branch needed for Muscle Spasms. HYDROmorpho 2019-11 Yes 8mg Take 8 mg U nivers ne 0-22 by mouth ity of (DILAUDID) 20:06: every 6 [place] 8 mg tablet 52 (six) Medical hours as Branch needed for Pain. BIOTIN ORAL 2019-11 Yes 1{tbl} Take 1 Tab Univers 0-22 by mouth ity of 20:06: daily. [place] [address] Medical Branch DOCUSATE 2019-11 Yes 1{tbl} Take 1 Tab U nivers CALCIUM 0-22 by mouth ity of (STOOL 20:06: as needed [place] SOFTENER for Medical ORAL) Constipati Branch on. amLODIPine 2019-11 Yes 5mg Take 5 mg [place] 5 mg tablet 0-22 by mouth ity of 20:06: daily. [place] [address] Medical Branch furosemide 2019-11 Yes 20mg Take 20 mg U nivers (LASIX) 40 0-22 by mouth ity o f mg tablet 20:06: daily. [place] [address] Medical Branch pantoprazol 2019-11 Yes 40mg Take 40 mg Univers e 0-22 by mouth ity of (PROTONIX) 20:06: daily. [place] 40 mg EC Medical tablet Branch citalopram 2019-11 Yes 20mg Take 20 mg U nivers (CELEXA) 20 0-22 by mouth ity of mg tablet 20:06: daily. [place] [address] Medical Branch rOPINIRole 2019-11 Yes 2mg Take 2 mg [place] (REQUIP) 2 0-22 by mouth ity o f mg tablet 20:06: at [place] [address] bedtime. Medical Branch tiZANidine 2019-11 Yes 2mg Take 2 mg [place] (ZANAFLEX) 0-22 by mouth 2 ity of 2 mg 20:06: (two) [place] [facility] 52 times Medical daily as Branch needed for Muscle Spasms. HYDROmorpho 2019-11 Yes 8mg Take 8 mg U nivers ne 0-22 by mouth ity of (DILAUDID) 20:06: every 6 [place] 8 mg tablet 52 (six) Medical hours as Branch needed for Pain. BIOTIN ORAL 2019-11 Yes 1{tbl} Take 1 Tab Univers 0-22 by mouth ity of 20:06: daily. [place] [address] Medical Branch DOCUSATE 2019-11 Yes 1{tbl} Take 1 Tab U nivers CALCIUM 0-22 by mouth ity of (STOOL 20:06: as needed [place] SOFTENER for Medical ORAL) Constipati Branch on. amLODIPine 2019-11 Yes 5mg Take 5 mg [place] 5 mg tablet 0-22 by mouth ity of 20:06: daily. [place] [address] Medical Branch furosemide 2019-11 Yes 20mg Take 20 mg U nivers (LASIX) 40 0-22 by mouth ity o f mg tablet 20:06: daily. [place] [address] Medical Branch pantoprazol 2019-11 Yes 40mg Take 40 mg Univers e 0-22 by mouth ity of (PROTONIX) 20:06: daily. [place] 40 mg EC Medical tablet Branch citalopram 2019-11 Yes 20mg Take 20 mg U nivers (CELEXA) 20 0-22 by mouth ity of mg tablet 20:06: daily. [place] [address] Medical Branch rOPINIRole 2019-11 Yes 2mg Take 2 mg [place] (REQUIP) 2 0-22 by mouth ity o f mg tablet 20:06: at [place] [address] bedtime. Medical Branch tiZANidine 2019-11 Yes 2mg Take 2 mg [place] (ZANAFLEX) 0-22 by mouth 2 ity of 2 mg 20:06: (two) [place] capsule 52 times Medical daily as Branch needed for Muscle Spasms. HYDROmorpho 2019-11 Yes 8mg Take 8 mg U nivers ne 0-22 by mouth ity of (DILAUDID) 20:06: every 6 [place] 8 mg tablet 52 (six) Medical hours as Branch needed for Pain. BIOTIN ORAL 2019-11 Yes 1{tbl} Take 1 Tab Univers 0-22 by mouth ity of 20:06: daily. [place] [address] Medical Branch DOCUSATE 2019-11 Yes 1{tbl} Take 1 Tab U nivers CALCIUM 0-22 by mouth ity of (STOOL 20:06: as needed [place] SOFTENER for Medical ORAL) Constipati Branch on. amLODIPine 2019-11 Yes 5mg Take 5 mg [place] 5 mg tablet 0-22 by mouth ity of 20:06: daily. [place] [address] Medical Branch furosemide 2019-11 Yes 20mg Take 20 mg U nivers (LASIX) 40 0-22 by mouth ity o f mg tablet 20:06: daily. [place] [address] Medical Branch pantoprazol 2019-11 Yes 40mg Take 40 mg Univers e 0-22 by mouth ity of (PROTONIX) 20:06: daily. [place] 40 mg EC Medical tablet Branch citalopram 2019-11 Yes 20mg Take 20 mg U nivers (CELEXA) 20 0-22 by mouth ity of mg tablet 20:06: daily. [place] [address] Medical Branch rOPINIRole 2019-11 Yes 2mg Take 2 mg [place] (REQUIP) 2 0-22 by mouth ity o f mg tablet 20:06: at [place] [address] bedtime. Medical Branch tiZANidine 2019-11 Yes 2mg Take 2 mg [place] (ZANAFLEX) 0-22 by mouth 2 ity of 2 mg 20:06: (two) [place] capsule 52 times Medical daily as Branch needed for Muscle Spasms. HYDROmorpho 2019-11 Yes 8mg Take 8 mg U nivers ne 0-22 by mouth ity of (DILAUDID) 20:06: every 6 [place] 8 [place] tablet 52 (six) Medical hours as Branch needed for Pain. BIOTIN ORAL 2019-11 Yes 1{tbl} Take 1 Tab Univers 0-22 by mouth ity of 20:06: daily. [address] Branch DOCUSATE 2019-11 Yes 1{tbl} Take 1 Tab U nivers CALCIUM 0-22 by mouth ity of (STOOL 20:06: as needed [place] SOFTENER for Medical ORAL) Constipati Branch on. amLODIPine 2019-11 Yes 5mg Take 5 mg [place] 5 mg tablet 0-22 by mouth ity of 20:06: daily. [address] Branch furosemide 2019-11 Yes 20mg Take 20 mg U nivers (LASIX) 40 0-22 by mouth ity o f mg tablet 20:06: daily. [address] Branch pantoprazol 2019-11 Yes 40mg Take 40 mg Univers e 0-22 by mouth ity of (PROTONIX) 20:06: daily. [place] 40 mg EC 52 Medical tablet Branch citalopram 2019-11 Yes 20mg Take 20 mg U nivers (CELEXA) 20 0-22 by mouth ity of mg tablet 20:06: daily. [address] Branch rOPINIRole 2019-11 Yes 2mg Take 2 mg [place] (REQUIP) 2 0-22 by mouth ity o f mg tablet 20:06: at [place] [address] bedtime. Medical Branch tiZANidine 2019-11 Yes 2mg Take 2 mg [place] (ZANAFLEX) 0-22 by mouth 2 ity of 2 mg 20:06: (two) [place] capsule 52 times Medical daily as Branch needed for Muscle Spasms. HYDROmorpho 2019-11 Yes 8mg Take 8 mg U nivers ne 0-22 by mouth ity of (DILAUDID) 20:06: every 6 [place] 8 mg tablet 52 (six) Medical hours as Branch needed for Pain. BIOTIN ORAL 2019-11 Yes 1{tbl} Take 1 Tab Univers 0-22 by mouth ity of 20:06: daily. [place] [address] Medical Branch DOCUSATE 2019-11 Yes 1{tbl} Take 1 Tab U nivers CALCIUM 0-22 by mouth ity of (STOOL 20:06: as needed [place] SOFTENER for Medical ORAL) Constipati Branch on. amLODIPine 2019-11 Yes 5mg Take 5 mg [place] 5 mg tablet 0-22 by mouth ity of 20:06: daily. [place] [address] Medical Branch furosemide 2019-11 Yes 20mg Take 20 mg U nivers (LASIX) 40 0-22 by mouth ity o f mg tablet 20:06: daily. [place] [address] Medical Branch pantoprazol 2019-11 Yes 40mg Take 40 mg Univers e 0-22 by mouth ity of (PROTONIX) 20:06: daily. [place] 40 mg [facility] Medical [facility] Branch citalopram 2019-11 Yes 20mg Take 20 mg U nivers (CELEXA) 20 0-22 by mouth ity of mg tablet 20:06: daily. [place] [address] Medical Branch rOPINIRole 2019-11 Yes 2mg Take 2 mg [place] (REQUIP) 2 0-22 by mouth ity o f mg tablet 20:06: at [place] [id number] bedtime. Medical Branch tiZANidine 2019-11 Yes 2mg Take 2 mg [facility] (ZANAFLEX) 0-22 by mouth 2 ity of 2 mg 20:06: (two) [place] capsule 52 times Medical daily as Branch needed for Muscle Spasms. HYDROmorpho 2019-11 Yes 8mg Take 8 mg U nivers ne 0-22 by mouth ity of (DILAUDID) 20:06: [place] 6 [place] 8 [place] tablet 52 (six) Medical hours as Branch needed for Pain. BIOTIN ORAL 2020-1 Yes 1{tbl} Take 1 Tab Univers 0-22 by mouth ity of 20:06: daily. [address] DOCUSATE 2019-11 Yes 1{tbl} Take 1 Tab U nivers CALCIUM 0-22 by mouth ity of (STOOL 20:06: as needed [place] SOFTENER for Medical ORAL) Constipati Branch on. amLODIPine 2019-11 Yes 5mg Take 5 mg [facility] 5 mg tablet 0-22 by mouth ity of 20:06: daily. [address] clonazePAM 2019-11 Yes Univers 1 mg tablet 0-20 ity of 00:00: [address] clonazePAM 2019-11 Yes Univers 1 mg tablet 0-20 ity of 00:00: [address] clonazePAM 2019-11 Yes Univers 1 mg tablet 0-20 ity of 00:: [address] clonazePAM 2019-11 Yes Univers 1 mg tablet 0-20 ity of 00:00: [address] clonazePAM 2019-11 Yes Univers 1 mg tablet 0-20 ity of 00:00: [address] clonazePAM 2019-11 Yes Univers 1 mg tablet 0-20 ity of 00:00: [address] clonazePAM 2019-11 Yes Univers 1 mg tablet 0-20 ity of 00:00: [address] clonazePAM 2019-11 Yes Univers 1 mg tablet 0-20 ity of 00:00: [address] clonazePAM 2019-11 Yes Univers 1 mg tablet 0-20 ity of 00:00: [address] clonazePAM 2019-11 Yes Univers 1 mg tablet 0-20 ity of 00:00: [address] clonazePAM 2019-11 Yes Univers 1 mg tablet 0-20 ity of 00:00: [address] clonazePAM 2019-11 Yes Univers 1 mg tablet 0-20 ity of 00:00: [address] clonazePAM 2019-11 Yes Univers 1 mg tablet 0-20 ity of 00:00: [address] clonazePAM 2019-11 Yes Univers 1 mg tablet 0-20 ity of 00:: [address] clonazePAM 2019-11 Yes Univers 1 mg tablet 0-20 ity of 00:00: [address] clonazePAM 2019-11 Yes Univers 1 mg tablet 0-20 ity of 00:00: [address] clonazePAM 2020-1 Yes Univers 1 mg tablet 0-20 ity of 00:00: Medical Branch clonazePAM 2019- Yes Univers 1 mg tablet 0-20 ity of 00:00: Medical Branch clonazePAM 2019- Yes Univers 1 mg tablet 0-20 ity of 00:00: Medical Branch indomethaci 2019-0 2020- No 50mg Q.5D Take 1 Met hodi n (INDOCIN) 08-02 10-[address] 50 MG 00:00: 04:59 (50 mg [facility] capsule 00 :00 total) by l mouth 2 (two) times a day with meals for 30 days. tiZANidine 2020- No 2mg Q8H Take 1 Meth geovani (ZANAFLEX) 08-01 10-24 tablet (2 st 2 MG tablet 00:00: 04:59 mg total) [facility] 00 :00 by mouth l every 8 (eight) hours as needed for muscle spasms for up to 30 days. AMITIZA 24 Yes Univers mcg capsule 9-14 ity of 00:00: Medical Branch AMITIZA 24 2019-0 Yes Univers mcg capsule 9-14 ity of 00:00: [place] [facility] Branch AMITIZA 24 2019-0 Yes Univers mcg capsule 9-14 ity of 00:00: [place] [facility] AMITIZA 24 2019-0 Yes Univers mcg capsule 9-14 ity of 00:00: Medical Branch AMITIZA 24 2019-0 Yes Univers mcg capsule 9-14 ity of 00:00: Medical Branch AMITIZA 24 2019-0 Yes Univers mcg capsule 9-14 ity of 00:00: Medical Branch AMITIZA 24 2019-0 Yes Univers mcg capsule 9-14 ity of 00:00: Medical Branch AMITIZA 24 2019-0 Yes Univers mcg capsule 9-14 ity of 00:00: [place] [facility] AMITIZA 24 2019-0 Yes Univers mcg capsule 9-14 ity of 00:00: [place] [facility] AMITIZA 24 2019-0 Yes Univers mcg capsule 9-14 ity of 00:00: [place] [facility] AMITIZA 24 2019-0 Yes Univers mcg capsule 9-14 ity of 00:00: [place] [facility] AMITIZA 24 2019-0 Yes Univers mcg capsule 9-14 ity of 00:00: Medical Branch AMITIZA 24 0 Yes Univers mcg capsule 9-14 ity of 00:00: [place] [facility] AMITIZA 24 2019-0 Yes Univers mcg capsule 9-14 ity of 00:: [place] [facility] AMITIZA 24 2019-0 Yes Univers mcg capsule 9-14 ity of 00:00: [place] [facility] AMITIZA 24 2019-0 Yes Univers mcg capsule 9-14 ity of 00:: [place] [facility] AMITIZA 24 2019-0 Yes Univers mcg capsule 9-14 ity of 00:: [place] [facility] AMITIZA 24 2019-0 Yes Univers mcg capsule 9-14 ity of 00:: [place] [facility] AMITIZA 24 2019-0 Yes Univers mcg capsule 9-14 ity of 00:: [place] [facility] methocarbam 2020- No 500mg Q.25D Take 1 M ethodi oL 812-[address] (Robaxin) 00:00: 00:00 (500 mg [facility] 500 MG 00 :00 total) by l tablet mouth 4 (four) times a day as needed for muscle spasms. TRINTELLIX 2020-0 Yes Univers 20 mg Tab 8-12 ity of 00:00: [place] [facility] TRINTELLIX 2020-0 Yes Univers 20 mg Tab 8-12 ity of 00:: [place] [facility] TRINTELLIX 2019-0 Yes Univers 20 mg Tab 8-12 ity of 00:00: [place] [facility] TRINTELLIX 2020-0 Yes Univers 20 mg Tab 8-12 ity of 00:00: [place] [facility] TRINTELLIX 2019-0 Yes Univers 20 mg Tab 8-12 ity of 00:00: [place] [facility] TRINTELLIX 2019-0 Yes Univers 20 mg Tab 8-12 ity of 00:00: [place] [facility] TRINTELLIX 2020-0 Yes Univers 20 mg Tab 8-12 ity of 00:00: [place] [facility] TRINTELLIX 2020-0 Yes Univers 20 mg Tab 8-12 ity of 00:00: [place] [facility] TRINTELLIX 2020-0 Yes Univers 20 mg Tab 8-12 ity of 00:00: [place] [facility] TRINTELLIX 2020-0 Yes Univers 20 mg Tab 8-12 ity of 00:00: [facility] TRINTELLIX 2019-0 Yes Univers 20 mg Tab 8-12 ity of 00:00: [place] [facility] No Univer s 20 mg Tab 8-10 13-25 ity of 00:00: 00:00 [place] 00 :00 [facility]-11 Yes 20mg Take 20 mg Univers n 20 mg 0-10 by mouth. ity of tablet 00:00: [facility] Yes 20mg Take 20 mg Univers n 20 mg 0-10 by mouth. ity of tablet 00:00: [facility] 2018[facility]11 Yes 20mg Take 20 mg Univers n 20 mg 0-10 by mouth. ity of tablet 00:00: [facility] 2018-11 Yes 20mg Take 20 mg Univers n 20 mg 0-10 by mouth. ity of tablet 00:00: [facility] 2018-11 Yes 20mg Take 20 mg Univers n 20 mg 0-10 by mouth. ity of tablet 00:00: [facility] 2018-11 Yes 20mg Take 20 mg Univers n 20 mg 0-10 by mouth. ity of tablet 00:00: [place] [facility] 2018-11 Yes 20mg Take 20 mg Univers n 20 mg 0-10 by mouth. ity of tablet 00:00: [facility] 2018-11 Yes 20mg Take 20 mg Univers n 20 mg 0-10 by mouth. ity of tablet 00:00: [facility] Yes 20mg Take 20 mg Univers n 20 mg 0-10 by mouth. ity of tablet 00:00: [place] [facility] 2018-11 Yes 20mg Take 20 mg Univers n 20 mg 0-10 by mouth. ity of tablet 00:00: [place] [facility] 2018-11 Yes 20mg Take 20 mg Univers n 20 mg 0-10 by mouth. ity of tablet 00:00: [place] [facility] 2018-11 Yes 20mg Take 20 mg Univers n 20 mg 0-10 by mouth. ity of tablet 00:00: [place] [facility] atorvastati 2018-11 Yes 20mg Take 20 mg Univers n 20 mg 0-10 by mouth. ity of tablet 00:00: [place] [facility] Branch atorvastati 2018-11 Yes 20mg Take 20 mg Univers n 20 mg 0-10 by mouth. ity of tablet 00:00: [place] [facility] Branch atorvastati 2018-11 Yes 20mg Take 20 mg Univers n 20 mg 0-10 by mouth. ity of tablet 00:00: [place] [facility] atorvastati 2018-11 Yes 20mg Take 20 mg Univers n 20 mg 0-10 by mouth. ity of tablet 00:00: [place] [facility] Branch atorvastati 2018-11 Yes 20mg Take 20 mg Univers n 20 mg 0-10 by mouth. ity of tablet 00:00: [place] [facility] atorvastati 2018-11 Yes 20mg Take 20 mg Univers n 20 mg 0-10 by mouth. ity of tablet 00:00: [place] [facility] atorvastati 2018-11 Yes 20mg Take 20 mg Univers n 20 mg 0-10 by mouth. ity of tablet 00:00: [place] [facility] amLODIPine 2018-0 Yes 5mg Take 5 mg [facility] 5 mg tablet 5-08 by mouth ity of 14:50: daily. [address] HYDROcodone 2018-0 Yes 1{tbl} Take 1 [facility] -acetaminop 5-08 tablet by ity of hen ([employer]) 14:50: mouth [place] 7.5-325 mg 10 every 6 Medica l per tablet (six) Branch hours as needed for Pain. HYDROcodone 2018-0 Yes 1{tbl} Take 1 [facility] -acetaminop 5-08 tablet by ity of hen (NORCO) 14:50: mouth [place] 7.5-325 mg 10 every 6 Medica l per tablet (six) Branch hours as needed for Pain. HYDROcodone 2018-0 Yes 1{tbl} Take 1 [facility] -acetaminop 5-08 tablet by ity of hen (NORCO) 14:50: mouth [place] 7.5-325 mg 10 every 6 Medica l per tablet (six) Branch hours as needed for Pain. HYDROcodone 2018-0 Yes 1{tbl} Take 1 [facility] -acetaminop 5-08 tablet by ity of hen (NORCO) 14:50: mouth [place] 7.5-325 mg 10 every 6 Medica l per tablet (six) Branch hours as needed for Pain. HYDROcodone 2018-0 Yes 1{tbl} Take 1 [facility] -acetaminop 5-08 tablet by ity of [employer]) 14:50: mouth [place] 7.5-325 mg 10 every 6 Medica l per tablet (six) Branch hours as needed for Pain. HYDROcodone 2018-0 Yes 1{tbl} Take 1 [facility] -acetaminop 5-08 tablet by ity of [employer]) 14:50: mouth [place] 7.5-325 mg 10 every 6 Medica l per tablet (six) Branch hours as needed for Pain. HYDROcodone 2018-0 Yes 1{tbl} Take 1 [facility] -acetaminop 5-08 tablet by ity [place]) 14:50: mouth [place] 7.5-325 mg 10 every 6 Medica l per tablet (six) Branch hours as needed for Pain. HYDROcodone 2018-0 Yes 1{tbl} Take 1 [facility] -acetaminop 5-08 tablet by ity [place]) 14:50: mouth [place] 7.5-325 mg 10 every 6 Medica l per tablet (six) Branch hours as needed for Pain. HYDROcodone 2018-0 Yes 1{tbl} Take 1 [facility] -acetaminop 5-08 tablet by [employer]) 14:50: mouth [place] 7.5-325 mg 10 every 6 Medica l per tablet (six) Branch hours as needed for Pain. HYDROcodone 2018-0 Yes 1{tbl} Take 1 [facility] -acetaminop 5-08 tablet by ity of [employer]) 14:50: mouth [place] 7.5-325 mg 10 every 6 Medica l per tablet (six) Branch hours as needed for Pain. HYDROcodone 2018-0 Yes 1{tbl} Take 1 [facility] -acetaminop 5-08 tablet by ity of [employer] [employer]) 14:50: mouth [place] 7.5-325 mg 10 every 6 Medica l per tablet (six) Branch hours as needed for Pain. HYDROcodone 2018-0 Yes 1{tbl} Take 1 [facility] -acetaminop 5-08 tablet by ity [facility] ([place]) 14:50: mouth [place] 7.5-325 mg 10 every 6 Medica l per tablet (six) Branch hours as needed for Pain. HYDROcodone Yes 1{tbl} Take 1 [facility] -acetaminop 5-08 tablet by ity of hen (NORCO) 14:50: mouth [place] 7.5-325 mg 10 every 6 Medica l per tablet (six) Branch hours as needed for Pain. DOCUSATE Yes 1{tbl} Take 1 Tab U nivers CALCIUM 5-08 by mouth ity of (STOOL 14:49: as needed [place] SOFTENER 02 for Medical ORAL) Constipati Branch on. lisinopril Yes Take by Uni vers (PRINIVIL,Z 5-08 mouth ity of ESTRIL) 40 14:49: daily. [place] mg tablet 02 Medical Branch multivitami Yes 1{tbl} Take 1 Tab Univers n tablet 5-08 by mouth ity of 14:49: daily. [place] [facility] Branch lisinopril Yes Take by Uni vers (PRINIVIL,Z 5-08 mouth ity of ESTRIL) 40 14:49: daily. [place] mg tablet 02 Medical Branch multivitami Yes 1{tbl} Take 1 Tab Univers n tablet 5-08 by mouth ity of 14:49: daily. [place] [facility] Branch lisinopril Yes Take by Uni vers (PRINIVIL,Z 5-08 mouth ity of ESTRIL) 40 14:49: daily. [place] mg tablet 02 Medical Branch multivitami Yes 1{tbl} Take 1 Tab Univers n tablet 5-08 by mouth ity of 14:49: daily. [place] [facility] Branch lisinopril Yes Take by Uni vers (PRINIVIL,Z 5-08 mouth ity of ESTRIL) 40 14:49: daily. [place] mg tablet 02 Medical Branch multivitami Yes 1{tbl} Take 1 Tab Univers n tablet 5-08 by mouth ity of 14:49: daily. [address] Branch lisinopril Yes Take by Uni vers (PRINIVIL,Z 5-08 mouth ity of ESTRIL) 40 14:49: daily. [place] mg tablet 02 Medical Branch multivitami Yes 1{tbl} Take 1 Tab Univers n tablet 5-08 by mouth ity of 14:49: daily. Medical Branch lisinopril 2017-0 Yes Take by Uni vers (PRINIVIL,Z 5-08 mouth ity of ESTRIL) 40 14:49: daily. [place] mg tablet 02 Medical Branch multivitami Yes 1{tbl} Take 1 Tab Univers n tablet 5-08 by mouth ity of 14:49: daily. Medical Branch lisinopril Yes Take by Uni vers (PRINIVIL,Z 5-08 mouth ity of ESTRIL) 40 14:49: daily. [place] mg tablet 02 Medical Branch multivitami Yes 1{tbl} Take 1 Tab Univers n tablet 5-08 by mouth ity of 14:49: daily. Medical Branch lisinopril 2017- Yes Take by Uni vers (PRINIVIL,Z 5-08 mouth ity of ESTRIL) 40 14:49: daily. [place] mg tablet Medical Branch multivitami Yes 1{tbl} Take 1 Tab Univers n tablet 5-08 by mouth ity of 14:49: daily. Medical Branch lisinopril Yes Take by Uni vers (PRINIVIL,Z 5-08 mouth ity of ESTRIL) 40 14:49: daily. [place] mg tablet 02 Medical [place] multivitami Yes 1{tbl} Take 1 Tab Univers n tablet 5-08 by mouth ity of 14:49: daily. [facility] Branch lisinopril Yes Take by Uni vers (PRINIVIL,Z 5-08 mouth ity of ESTRIL) 40 14:49: daily. [place] mg tablet 02 Medical Branch multivitami Yes 1{tbl} Take 1 Tab Univers n tablet 5-08 by mouth ity of 14:49: daily. [place] [facility] lisinopril 2017-0 Yes Take by Uni vers (PRINIVIL,Z 5-08 mouth ity of ESTRIL) 40 14:49: daily. [place] mg tablet 02 Medical Branch multivitami Yes 1{tbl} Take 1 Tab Univers n tablet 5-08 by mouth ity of 14:49: daily. Medical Branch lisinopril 2017-0 Yes Take by Uni vers (PRINIVIL,Z 5-08 mouth ity of ESTRIL) 40 14:49: daily. [place] mg tablet [facility] Branch multivitami 0 Yes 1{tbl} Take 1 Tab Univers n tablet 5-08 by mouth ity of 14:49: daily. [address] Branch lisinopril 0 Yes Take by Uni vers (PRINIVIL,Z 5-08 mouth ity of ESTRIL) 40 14:49: daily. [place] mg tablet Medical Branch furosemide 0 Yes 20mg Take 20 mg U nivers (LASIX) 40 5-08 by mouth ity o f mg tablet 14:49: daily. [address] Branch pantoprazol 0 Yes 40mg Take 40 mg Univers e 5-08 by mouth ity of (PROTONIX) 14:49: daily. [place] 40 mg EC [facility] Branch citalopram Yes 20mg Take 20 mg U nivers (CELEXA) 20 5-08 by mouth ity of mg tablet 14:49: daily. [address] traZODONE Yes 50mg Take 50 mg [facility] (DESYREL) 5-08 by mouth ity of 50 mg 14:49: at [place] [facility] 02 bedtime. Medical Branch rOPINIRole 0 Yes 2mg Take 2 mg [facility] (REQUIP) 2 5-08 by mouth ity o f mg tablet 14:49: at [place] 02 bedtime. Medical Branch tiZANidine 0 Yes 2mg Take 2 mg [facility] (ZANAFLEX) 5-08 by mouth 2 ity of 2 mg 14:49: (two) [place] capsule 02 times Medical daily as Branch needed for Muscle Spasms. HYDROmorpho Yes 8mg Take 8 mg U nivers ne 5-08 by mouth ity of (DILAUDID) 14:49: every 6 [place] 8 [place] tablet 02 (six) Medical hours as Branch needed for Pain. multivitami 0 Yes 1{tbl} Take 1 Tab Univers n tablet 5-08 by mouth ity of 14:49: daily. [address] BIOTIN ORAL 2017-0 Yes 1{tbl} Take 1 Tab Univers 5-08 by mouth ity of 14:49: daily. [address] levothyroxi 2018-0 Yes [id number] TAKE 1 Univers ne 25 mcg 5-08 TABLET BY ity o f tablet 00:00: MOUTH IN [place] 00 THE Medical MORNING Branch levothyroxi 2018-0 Yes [id number] TAKE 1 Univers ne 25 mcg 5-08 TABLET BY ity o f tablet 00:00: MOUTH IN [place] 00 THE Medical MORNING Branch levothyroxi 2018-0 Yes [id number] TAKE 1 Univers ne 25 mcg 5-08 TABLET BY ity o f tablet 00:00: MOUTH IN [place] 00 THE Medical MORNING Branch levothyroxi 2018-0 Yes [id number] TAKE 1 Univers ne 25 mcg 5-08 TABLET BY ity o f tablet 00:00: MOUTH IN [place] 00 THE Medical MORNING Branch levothyroxi 2018-0 Yes [id number] TAKE 1 Univers ne 25 mcg 5-08 TABLET BY ity o f tablet 00:00: MOUTH IN [place] 00 THE Medical MORNING Branch levothyroxi 2018-0 Yes [id number] TAKE 1 Univers ne 25 mcg 5-08 TABLET BY ity o f tablet 00:00: MOUTH IN [place] 00 THE Medical MORNING Branch levothyroxi 2018-0 Yes [id number] TAKE 1 Univers ne 25 mcg 5-08 TABLET BY ity o f tablet 00:00: MOUTH IN [place] 00 THE Medical MORNING Branch levothyroxi 2018-0 Yes [id number] TAKE 1 Univers ne 25 mcg 5-08 TABLET BY ity o f tablet 00:00: MOUTH IN [place] 00 THE Medical MORNING Branch levothyroxi 2018-0 Yes [id number] TAKE 1 Univers ne 25 mcg 5-08 TABLET BY ity o f tablet 00:00: MOUTH IN [place] 00 THE Medical MORNING Branch levothyroxi 2018-0 Yes [id number] TAKE 1 Univers ne 25 mcg 5-08 TABLET BY ity o f tablet 00:00: MOUTH IN [place] 00 THE Medical MORNING Branch levothyroxi 2018-0 Yes [id number] TAKE 1 Univers ne 25 mcg 5-08 TABLET BY ity o f tablet 00:00: MOUTH IN [place] 00 THE Medical MORNING Branch levothyroxi 2018-0 Yes [id number] TAKE 1 Univers ne 25 mcg 5-08 TABLET BY ity o f tablet 00:00: MOUTH IN [place] 00 THE Medical MORNING Branch levothyroxi 2018-0 Yes [id number] TAKE 1 Univers ne 25 mcg 5-08 TABLET BY ity o f tablet 00:00: MOUTH IN [place] 00 THE Medical MORNING Branch levothyroxi 2018-0 Yes [id number] TAKE 1 Univers ne 25 mcg 5-08 TABLET BY ity o f tablet 00:00: MOUTH IN [place] 00 THE Medical MORNING Branch levothyroxi 2017-0 Yes [id number] TAKE 1 Univers ne 25 mcg 5-08 TABLET BY ity o f tablet 00:00: MOUTH IN [place] 00 THE Medical MORNING Branch levothyroxi 2017-0 Yes [id number] TAKE 1 Univers ne 25 mcg 5-08 TABLET BY ity o f tablet 00:00: MOUTH IN [place] 00 THE Medical MORNING Branch levothyroxi 2017-0 Yes [id number] TAKE 1 Univers ne 25 mcg 5-08 TABLET BY ity o f tablet 00:00: MOUTH IN [place] 00 THE Medical MORNING Branch levothyroxi 2017- Yes [id number] TAKE 1 Univers ne 25 mcg 5-08 TABLET BY ity o f tablet 00:00: MOUTH IN [place] 00 THE Medical MORNING Branch levothyroxi 2017- Yes [id number] TAKE 1 Univers ne 25 mcg 5-08 TABLET BY ity o f tablet 00:00: MOUTH IN [place] 00 THE Medical MORNING Branch levothyroxi 2017-0 Yes [id number] TAKE 1 Univers ne 25 mcg 5-08 TABLET BY ity o f tablet 00:00: MOUTH IN [place] 00 THE Medical MORNING Branch levothyroxi 2017- Yes [id number] TAKE 1 Univers ne 25 mcg 5-08 TABLET BY ity o f tablet 00:00: MOUTH IN [place] 00 THE Medical MORNING Branch metoprolol Yes 25mg Take 25 mg U nivers tartrate 2-20 by mouth ity of (LOPRESSOR) 17:35: [place]. [place] 25 mg 43 Medical tablet Branch POTASSIUM Yes 10meq Take 10 Univ ers CHLORIDE 2-20 mEq by ity of (KLOR-CON 17:35: mouth [place] 10 ORAL) 43 daily. Medical Branch metoprolol Yes 25mg Take 25 mg U nivers tartrate 2-20 by mouth ity of (LOPRESSOR) 17:35: daily. [place] 25 mg 43 Medical tablet Branch POTASSIUM Yes 10meq Take 10 Univ ers CHLORIDE 2-20 mEq by ity of (KLOR-CON 17:35: mouth [place] 10 ORAL) 43 daily. Medical Branch metoprolol Yes 25mg Take 25 mg U nivers tartrate 2-20 by mouth ity of (LOPRESSOR) 17:35: daily. [place] 25 mg 43 Medical tablet Branch POTASSIUM Yes 10meq Take 10 Univ ers CHLORIDE 2-20 mEq by ity of (KLOR-CON 17:35: mouth [place] 10 ORAL) 43 daily. Medical Branch metoprolol Yes 25mg Take 25 mg U nivers tartrate 2-20 by mouth ity of (LOPRESSOR) 17:35: daily. [place] 25 mg 43 Medical tablet Branch POTASSIUM Yes 10meq Take 10 Univ ers CHLORIDE 2-20 mEq by ity of (KLOR-CON 17:35: mouth [place] 10 ORAL) 43 daily. Medical Branch metoprolol Yes 25mg Take 25 mg U nivers tartrate 2-20 by mouth ity of (LOPRESSOR) 17:35: daily. [place] 25 mg 43 Medical tablet Branch POTASSIUM Yes 10meq Take 10 Univ ers CHLORIDE 2-20 mEq by ity of (KLOR-CON 17:35: mouth [place] 10 ORAL) 43 daily. Medical Branch metoprolol Yes 25mg Take 25 mg U nivers tartrate 2-20 by mouth ity of (LOPRESSOR) 17:35: daily. [place] 25 mg 43 Medical tablet Branch POTASSIUM Yes 10meq Take 10 Univ ers CHLORIDE 2-20 mEq by ity of (KLOR-CON 17:35: mouth [place] 10 ORAL) 43 daily. Medical Branch metoprolol Yes 25mg Take 25 mg U nivers tartrate 2-20 by mouth ity of (LOPRESSOR) 17:35: daily. [place] 25 mg 43 Medical tablet Branch POTASSIUM 0 Yes 10meq Take 10 Univ ers CHLORIDE 2-20 mEq by ity of (KLOR-CON 17:35: mouth [place] 10 ORAL) 43 daily. Medical Branch metoprolol [id number] Yes 25mg Take 25 mg U nivers tartrate 2-20 by mouth ity of (LOPRESSOR) 17:35: daily. [place] 25 mg 43 Medical tablet Branch POTASSIUM 0 Yes 10meq Take 10 Univ ers CHLORIDE 2-20 mEq by ity of (KLOR-CON 17:35: mouth [place] 10 ORAL) 43 daily. Medical Branch metoprolol 0 Yes 25mg Take 25 mg U nivers tartrate 2-20 by mouth ity of (LOPRESSOR) 17:35: daily. [place] 25 mg 43 Medical tablet Branch POTASSIUM Yes 10meq Take 10 Univ ers CHLORIDE 2-20 mEq by ity of (KLOR-CON 17:35: mouth [place] 10 ORAL) 43 daily. Medical Branch metoprolol Yes 25mg Take 25 mg U nivers tartrate 2-20 by mouth ity of (LOPRESSOR) 17:35: daily. [place] 25 mg 43 Medical tablet Branch POTASSIUM Yes 10meq Take 10 Univ ers CHLORIDE 2-20 mEq by ity of (KLOR-CON 17:35: mouth [place] 10 ORAL) 43 daily. Medical Branch metoprolol Yes 25mg Take 25 mg U nivers tartrate 2-20 by mouth ity of (LOPRESSOR) 17:35: daily. [place] 25 mg 43 Medical tablet Branch POTASSIUM Yes 10meq Take 10 Univ ers CHLORIDE 2-20 mEq by ity of (KLOR-CON 17:35: mouth [place] 10 ORAL) 43 daily. Medical Branch metoprolol Yes 25mg Take 25 mg U nivers tartrate 2-20 by mouth ity of (LOPRESSOR) 17:35: daily. [place] 25 mg 43 Medical tablet Branch POTASSIUM Yes 10meq Take 10 Univ ers CHLORIDE 2-20 mEq by ity of (KLOR-CON 17:35: mouth [place] 10 ORAL) 43 daily. Medical Branch metoprolol Yes 25mg Take 25 mg U nivers tartrate 2-20 by mouth ity of (LOPRESSOR) 17:35: daily. [place] 25 mg 43 Medical tablet Branch POTASSIUM Yes 10meq Take 10 Univ ers CHLORIDE 2-20 mEq by ity of (KLOR-CON 17:35: mouth [place] 10 ORAL) 43 daily. Medical Branch aspirin 81 Yes 81mg Take 81 mg U nivers mg EC 08-04 by mouth ity of tablet 18:23: daily. [place] 06 Medical Branch acetaminoph Yes Take by Un [facility]ie en 08-04 mouth ity of (TYLENOL) 18:23: every 6 [place] 325 mg 06 (six) Medical tablet hours as Branch needed for Pain (scale 1-3). aspirin 81 Yes 81mg Take 81 mg U nivers mg EC 9-26 by mouth ity of tablet 18:23: daily. [facility] Branch acetaminoph Yes Take by Un christ[facility] en 08-04 mouth ity of (TYLENOL) 18:23: every 6 [place] 325 mg 06 (six) Medical tablet hours as Branch needed for Pain (scale 1-3). aspirin 81 Yes 81mg Take 81 mg U nivers mg EC 9-26 by mouth ity of tablet 18:23: daily. [facility] Branch acetaminoph Yes Take by Un christie en 08-04 mouth ity of (TYLENOL) 18:23: every 6 [place] 325 mg 06 (six) Medical tablet hours as Branch needed for Pain (scale 1-3). aspirin 81 Yes 81mg Take 81 mg U nivers mg EC 9-26 by mouth ity of tablet 18:23: daily. [facility] acetamino Yes Take by Un christ[facility] en 08-04 mouth ity of (TYLENOL) 18:23: every 6 [place] 325 mg 06 (six) Medical tablet hours as Branch needed for Pain (scale 1-3). aspirin 81 Yes 81mg Take 81 mg U nivers mg EC 9-26 by mouth ity of tablet 18:23: daily. [facility] acetaminoph Yes Take by Un christ[facility] en 08-04 mouth ity of (TYLENOL) 18:23: every 6 [place] 325 mg 06 (six) Medical tablet hours as Branch needed for Pain (scale 1-3). aspirin 81 Yes 81mg Take 81 mg U nivers mg EC 9-26 by mouth ity of tablet 18:23: daily. [facility] acetaminoph Yes Take by Un christ[facility] en 08-04 mouth ity of (TYLENOL) 18:23: every 6 [place] 325 mg 06 (six) Medical tablet hours as Branch needed for Pain (scale 1-3). aspirin 81 2015-0 Yes 81mg Take 81 mg U nivers mg EC 9-26 by mouth ity of tablet 18:23: daily. [facility] acetaminoph Yes Take by Un [facility] en 08-04 mouth ity of (TYLENOL) 18:23: every 6 [place] 325 mg 06 (six) Medical tablet hours as Branch needed for Pain (scale 1-3). aspirin 81 2016-0 Yes 81mg Take 81 mg U nivers mg EC 9-26 by mouth ity of tablet 18:23: daily. [facility] Take by [facility] en 08-04 mouth ity of (TYLENOL) 18:23: every 6 [place] 325 mg 06 (six) Medical tablet hours as Branch needed for Pain (scale 1-3). aspirin 81 2015-0 Yes 81mg Take 81 mg U nivers mg EC 9-26 by mouth ity of tablet 18:23: daily. [facility] acetaminoph Yes Take by Un christie en 08-04 mouth ity of (TYLENOL) 18:23: every 6 [place] 325 mg 06 (six) Medical tablet hours as Branch needed for Pain (scale 1-3). aspirin 81 Yes 81mg Take 81 mg U nivers mg EC 9-26 by mouth ity of tablet 18:23: daily. [facility] Take by Un christie en 08-04 mouth ity of (TYLENOL) 18:23: every 6 [place] 325 mg 06 (six) Medical tablet hours as Branch needed for Pain (scale 1-3). aspirin 81 Yes 81mg Take 81 mg U nivers mg EC 9-26 by mouth ity of tablet 18:23: daily. [facility] Yes Take by Un christie en 08-04 mouth ity of (TYLENOL) 18:23: every 6 [place] 325 mg 06 (six) Medical tablet hours as Branch needed for Pain (scale 1-3). aspirin 81 0 Yes 81mg Take 81 mg U nivers mg EC 9-26 by mouth ity of tablet 18:23: daily. [facility] acetaminoph Yes Take by Un christie en 08-04 mouth ity of (TYLENOL) 18:23: every 6 [place] 325 mg 06 (six) Medical tablet hours as Branch needed for Pain (scale 1-3). aspirin 81 2016-0 Yes 81mg Take 81 mg U nivers mg EC 9-26 by mouth ity of tablet 18:23: daily. [facility] acetamino Yes Take by Un christie en 9-26 mouth ity of (TYLENOL) 18:23: every 6 [place] 325 mg 06 (six) Medical tablet hours as Branch needed for Pain (scale 1-3). meloxicam Yes TAKE 1 Univer s (MOBIC) 15 8-23 TABLET(S) ity of mg tablet 00:00: [place]TH [place] 00 EVERY Medical MORNING Branch AFTER BREAKFAST meloxicam Yes TAKE 1 Univer s (MOBIC) 15 8-23 TABLET(S) ity of mg tablet 00:00: [place] EVERY [place] MORNING Branch AFTER BREAKFAST meloxicam Yes TAKE 1 Univer s (MOBIC) 15 8-23 TABLET(S) ity of mg tablet 00:00: [place]TH [place] 00 EVERY [place] MORNING Branch AFTER BREAKFAST meloxicam Yes TAKE 1 Univer s (MOBIC) 15 8-23 TABLET(S) ity of mg tablet 00:00: [place] 00 EVERY [place] MORNING Branch AFTER BREAKFAST meloxicam Yes TAKE 1 Univer s (MOBIC) 15 8-23 TABLET(S) ity of mg tablet 00:00: [place]TH [place] 00 EVERY [place] MORNING Branch AFTER BREAKFAST meloxicam Yes TAKE 1 Univer s (MOBIC) 15 8-23 TABLET(S) ity of mg tablet 00:00: [place]TH [place] 00 EVERY [place] MORNING Branch AFTER BREAKFAST meloxicam Yes TAKE 1 Univer s (MOBIC) 15 8-23 TABLET(S) ity of mg tablet 00:00: [place]TH [place] 00 EVERY [place] MORNING Branch AFTER BREAKFAST meloxicam Yes TAKE 1 Univer s (MOBIC) 15 8-23 TABLET(S) ity of mg tablet 00:00: [place] 00 EVERY [place] MORNING Branch AFTER BREAKFAST meloxicam Yes TAKE 1 Univer s (MOBIC) 15 8-23 TABLET(S) ity of mg tablet 00:00: [place]TH [place] 00 EVERY [place] MORNING Branch AFTER BREAKFAST meloxicam Yes TAKE 1 Univer s (MOBIC) 15 8-23 TABLET(S) ity of mg tablet 00:00: [place]TH [place] 00 EVERY Medical MORNING Branch AFTER BREAKFAST meloxicam Yes TAKE 1 Univer s (MOBIC) 15 8-23 TABLET(S) ity of mg tablet 00:00: [place]TH [place] 00 EVERY Medical MORNING Branch AFTER BREAKFAST meloxicam Yes TAKE 1 Univer s (MOBIC) 15 8-23 TABLET(S) ity of mg tablet 00:00: [place]TH [place] 00 EVERY Medical MORNING Branch AFTER BREAKFAST meloxicam Yes TAKE 1 Univer s (MOBIC) 15 8-23 TABLET(S) ity of mg tablet 00:00: [place] 00 EVERY Medical MORNING Branch AFTER BREAKFAST meloxicam 2020- No TAKE 1 Unive rs (MOBIC) 15 8-23 05-25 TABLET(S) ity of mg tablet 00:00: 00:00 BY MOUTH [place] as 00 :00 EVERY Medical MORNING Branch AFTER BREAKFAST promethazin Yes 25mg Q6H Take 25 mg Methodi e 4-[address] (PHENERGAN) 00:00: every 6 Hos jonathan 25 MG 00 (six) l tablet hours as needed. proMETHazin Yes [id number] 25mg Take 1 Tab Univers e 4-01 by mouth ity of (PHENERGAN) 00:00: every 6 [place] as 25 mg 00 (six) Medical tablet hours as Branch needed for Nausea and Vomiting (N/V). proMETHazin Yes [id number] 25mg Take 1 Tab Univers e 4-01 by mouth ity of (PHENERGAN) 00:00: every 6 [place] as 25 mg 00 (six) Medical tablet hours as Branch needed for Nausea and Vomiting (N/V). proMETHazin Yes [id number] 25mg Take 1 Tab Univers e 4-01 by mouth ity of (PHENERGAN) 00:00: every 6 [place] as 25 mg 00 (six) Medical tablet hours as Branch needed for Nausea and Vomiting (N/V). proMETHazin Yes [id number] 25mg Take 1 Tab Univers e 4-01 by mouth ity of (PHENERGAN) 00:00: every 6 [place] as 25 mg 00 (six) Medical tablet hours as Branch needed for Nausea and Vomiting (N/V). proMETHazin Yes [id number] 25mg Take 1 Tab Univers e 4-01 by mouth ity of (PHENERGAN) 00:00: every 6 [place] as 25 mg 00 (six) Medical tablet hours as Branch needed for Nausea and Vomiting (N/V). proMETHazin 2015- Yes [id number] 25mg Take 1 Tab Univers e 4-01 by mouth ity of (PHENERGAN) 00:00: every 6 [place] as 25 mg 00 (six) Medical tablet hours as Branch needed for Nausea and Vomiting (N/V). proMETHazin Yes [id number] 25mg Take 1 Tab Univers e 4-01 by mouth ity of (PHENERGAN) 00:00: every 6 [place] as 25 mg 00 (six) Medical tablet hours as Branch needed for Nausea and Vomiting (N/V). proMETHazin Yes [id number] 25mg Take 1 Tab Univers e 4-01 by mouth ity of (PHENERGAN) 00:00: every 6 [place] as 25 mg 00 (six) Medical tablet hours as Branch needed for Nausea and Vomiting (N/V). proMETHazin Yes [id number] 25mg Take 1 Tab Univers e 4-01 by mouth ity of (PHENERGAN) 00:00: every 6 [place] as 25 mg 00 (six) Medical tablet hours as Branch needed for Nausea and Vomiting (N/V). proMETHazin Yes [id number] 25mg Take 1 Tab Univers e 4-01 by mouth ity of (PHENERGAN) 00:00: every 6 [place] as 25 mg 00 (six) Medical tablet hours as Branch needed for Nausea and Vomiting (N/V). proMETHazin 2015- Yes [id number] 25mg Take 1 Tab Univers e 4-01 by mouth ity of (PHENERGAN) 00:00: every 6 [place] as 25 mg 00 (six) Medical tablet hours as Branch needed for Nausea and Vomiting (N/V). proMETHazin Yes [id number] 25mg Take 1 Tab Univers e 4-01 by mouth ity of (PHENERGAN) 00:00: every 6 [place] as 25 mg 00 (six) Medical tablet hours as Branch needed for Nausea and Vomiting (N/V). proMETHazin Yes [id number] 25mg Take 1 Tab Univers e 4-01 by mouth ity of (PHENERGAN) 00:00: every 6 [place] as 25 mg 00 (six) Medical tablet hours as Branch needed for Nausea and Vomiting (N/V). proMETHazin Yes [id number] 25mg Take 1 Tab Univers e 4-01 by mouth ity of (PHENERGAN) 00:00: every 6 [place] as 25 mg 00 (six) Medical tablet hours as Branch needed for Nausea and Vomiting (N/V). proMETHazin Yes [id number] 25mg Take 1 Tab Univers e 4-01 by mouth ity of (PHENERGAN) 00:00: every 6 [place] as 25 mg 00 (six) Medical tablet hours as Branch needed for Nausea and Vomiting (N/V). proMETHazin Yes [id number] 25mg Take 1 Tab Univers e 4-01 by mouth ity of (PHENERGAN) 00:00: every 6 [place] as 25 mg 00 (six) Medical tablet hours as Branch needed for Nausea and Vomiting (N/V). proMETHazin Yes [id number] 25mg Take 1 Tab Univers e 4-01 by mouth ity of (PHENERGAN) 00:00: every 6 [place] as 25 mg 00 (six) Medical tablet hours as Branch needed for Nausea and Vomiting (N/V). proMETHazin Yes [id number] 25mg Take 1 Tab Univers e 4-01 by mouth ity of (PHENERGAN) 00:00: every 6 [place] as 25 mg 00 (six) Medical tablet hours as Branch needed for Nausea and Vomiting (N/V). proMETHazin Yes [id number] 25mg Take 1 Tab Univers e 4-01 by mouth ity of (PHENERGAN) 00:00: every 6 [place] as 25 mg 00 (six) Medical tablet hours as Branch needed for Nausea and Vomiting (N/V). proMETHazin Yes [id number] 25mg Take 1 Tab Univers e 4-01 by mouth ity of (PHENERGAN) 00:00: every 6 [place] as 25 mg 00 (six) Medical tablet hours as Branch needed for Nausea and Vomiting (N/V). proMETHazin Yes [id number] 25mg Take 1 Tab Univers e 4-01 by mouth ity of (PHENERGAN) 00:00: every 6 [place] as 25 mg 00 (six) Medical tablet hours as Branch needed for Nausea and Vomiting (N/V). Immunizations Ordered Filled Immunization Date Status Comments [facility] e Immunization Name Name Pneumococcal 2020-09-12 Completed University o f Polysaccharide, 00:00:00 [place] Med ical PPSV23 (PNEUMOVAX) Branch Pneumococcal 2020-09-12 Completed University o f Polysaccharide, 00:00:00 [place] Med ical PPSV23 (PNEUMOVAX) Branch Pneumococcal 2020-09-12 Completed University o f Polysaccharide, 00:00:00 [place] Med ical PPSV23 (PNEUMOVAX) Branch Pneumococcal 2020-09-12 Completed University o f Polysaccharide, 00:00:00 [place] Med ical PPSV23 (PNEUMOVAX) Branch Pneumococcal 2020-09-12 Completed University o f Polysaccharide, 00:00:00 [place] Med ical PPSV23 (PNEUMOVAX) Branch Pneumococcal 2020-09-12 Completed University o f Polysaccharide, 00:00:00 [place] Med ical PPSV23 (PNEUMOVAX) Branch Pneumococcal 2020-09-12 Completed University o f Polysaccharide, 00:00:00 [place] Med ical PPSV23 (PNEUMOVAX) Branch Pneumococcal 2020-09-12 Completed University o f Polysaccharide, 00:00:00 [place] Med ical PPSV23 (PNEUMOVAX) Branch Pneumococcal 2020-09-12 Completed University o f Polysaccharide, 00:00:00 [place] Med ical PPSV23 (PNEUMOVAX) Branch Pneumococcal 2020-09-12 Completed University o f Polysaccharide, 00:00:00 [place] Med ical PPSV23 (PNEUMOVAX) Branch Pneumococcal 2020-09-12 Completed University o f Polysaccharide, 00:00:00 [place] Med ical PPSV23 (PNEUMOVAX) Branch Pneumococcal 2020-09-12 Completed University o f Polysaccharide, 00:00:00 [place] Med ical PPSV23 (PNEUMOVAX) Branch Pneumococcal 2020-09-12 Completed University o f Polysaccharide, 00:00:00 [place] Med ical PPSV23 (PNEUMOVAX) Branch Pneumococcal 2020-09-12 Completed University o f Polysaccharide, 00:00:00 [place] Med ical PPSV23 (PNEUMOVAX) Branch Influenza Virus 2019-08-18 Completed Universit y of Vaccine Quad IM 00:00:00 [place] Med ical Multi-dose 6+ MO Branch Zoster(Zostavax)(Sh 2019-08-18 Completed [facility]) 00:00:00 [facility] Influenza Virus 2019-08-18 Completed Universit y of Vaccine Quad IM 00:00:00 [place] Med ical Multi-dose 6+ MO Branch Zoster(Zostavax)( 2019-08-18 Completed Unive rsity of ingles) 00:00:00 [facility] Influenza Virus 2019-08-18 Completed Universit y of Vaccine Quad IM 00:00:00 [place] Med ical Multi-dose 6+ MO Branch Zoster(Zostavax)( 2019-08-18 Completed Unive rsity of ingles) 00:00:00 [facility] Influenza Virus 2019-08-18 Completed Universit y of Vaccine Quad IM 00:00:00 [place] Med ical Multi-dose 6+ MO Branch Zoster(Zostavax)( 2019-08-18 Completed Unive rsity of ingles) 00:00:00 [facility] Influenza Virus 2019-08-18 Completed Universit y of Vaccine Quad IM 00:00:00 [place] [facility] ical Multi-dose 6+ MO Branch Zoster(Zostavax)( 2019-08-18 Completed Unive rsity of ingles) 00:00:00 [facility] Influenza Virus 2019-08-18 Completed Universit y of Vaccine Quad IM 00:00:00 [place] Med ical Multi-dose 6+ MO Branch Zoster(Zostavax)( 2019-08-18 Completed Unive rsity of ingles) 00:00:00 [facility] Influenza Virus 2019-08-18 Completed Universit y of Vaccine Quad IM 00:00:00 [place] Med ical Multi-dose 6+ MO Branch Zoster(Zostavax)( 2019-08-18 Completed Unive rsity of ingles) 00:00:00 [facility] Influenza Virus 2019-08-18 Completed Universit y of Vaccine Quad IM 00:00:00 [place] Med ical Multi-dose 6+ MO Branch Zoster(Zostavax)( 2019-08-18 Completed Unive rsity of ingles) 00:00: [facility] Influenza Virus 2019-08-18 Completed Universit y of Vaccine Quad IM 00:00:00 [place] Med ical Multi-dose 6+ MO Branch Zoster(Zostavax)( 2019-08-18 Completed Unive rsity of ingles) 00:00:00 [facility] Influenza Virus 2019-08-18 Completed Universit y of Vaccine Quad IM 00:00:00 [place] Med ical Multi-dose 6+ MO Branch Zoster(Zostavax)( 2019-08-18 Completed Unive rsity of ingles) 00:00:00 [facility] Influenza Virus 2019-08-18 Completed Universit y of Vaccine Quad IM 00:00:00 [facility] ical Multi-dose 6+ MO Branch Zoster(Zostavax)( 2019-08-18 Completed Unive rsity of ingles) 00:00:00 [facility] Influenza Virus 2019-08-18 Completed Universit y of Vaccine Quad IM 00:00:00 [facility] ical Multi-dose 6+ MO Branch Zoster(Zostavax)( 2019-08-18 Completed Unive rsity of ingles) 00:00:00 [facility] Influenza Virus 2019-08-18 Completed Universit y of Vaccine Quad IM 00:00:00 [facility] ical Multi-dose 6+ MO Branch Zoster(Zostavax)( 2019-08-18 Completed Unive rsity of ingles) 00:00:00 [facility] Influenza Virus 2019-08-18 Completed Universit y of Vaccine Quad IM 00:00:00 [facility] ical Multi-dose 6+ MO Branch Zoster(Zostavax)( 2019-08-18 Completed Unive rsity of ingles) 00:00:00 [facility] Branch Zoster(Zostavax)( 2019-05-02 Completed Unive rsity of ingles) 00:00:00 [facility] Branch Zoster(Zostavax)( 2019-05-02 Completed Unive rsity of ingles) 00:00:00 [facility] Branch Zoster(Zostavax)( 2019-05-02 Completed Unive rsity of ingles) 00:00:00 [facility] Branch Zoster(Zostavax)( 2019-05-02 Completed Unive rsity of ingles) 00:00:00 [facility] Zoster(Zostavax)( 2019-05-02 Completed Unive rsity of ingles) 00:00:00 [facility] Branch Zoster(Zostavax)( 2019-05-02 Completed Unive rsity of ingles) 00:00:00 [facility] Branch Zoster(Zostavax)( 2019-05-02 Completed Unive rsity of ingles) 00:00:00 [facility] Zoster(Zostavax)( 2019-05-02 Completed Unive rsity of ingles) 00:00:00 [facility] Zoster(Zostavax)( 2019-05-02 Completed Unive rsity of ingles) 00:00:00 [facility] Zoster(Zostavax)( 2019-05-02 Completed Unive rsity of ingles) 00:00:00 [facility] Zoster(Zostavax)( 2019-05-02 Completed Unive rsity of ingles) 00:00:00 [facility] Zoster(Zostavax)( 2019-05-02 Completed Unive rsity of ingles) 00:00:00 [facility] Zoster(Zostavax)( 2019-05-02 Completed Unive rsity of ingles) 00:00:00 [facility] Zoster(Zostavax)( 2019-05-02 Completed Unive rsity of ingles) 00:00:00 [facility] Influenza Virus 2016-08-04 Completed Universit y of Vaccine Quad IM 3+ 00:00:00 [facility] Influenza Virus 2016-08-04 Completed Universit y of Vaccine Quad IM 3+ 00:00:00 [facility] Influenza Virus 2016-08-04 Completed Universit y of Vaccine Quad IM 3+ 00:00:00 [facility] Influenza Virus 2016-08-04 Completed Universit y of Vaccine Quad IM 3+ 00:00:00 [facility] Influenza Virus 2016-08-04 Completed Universit y of Vaccine Quad IM 3+ 00:00:00 [facility] Influenza Virus 2016-08-04 Completed Universit y of Vaccine Quad IM 3+ 00:00:00 [facility] Influenza Virus 2016-08-04 Completed Universit y of Vaccine Quad IM 3+ 00:00:00 [facility] Influenza Virus 2016-08-04 Completed Universit y of Vaccine Quad IM 3+ 00:00:00 [facility] Influenza Virus 2016-08-04 Completed Universit y of Vaccine Quad IM 3+ 00:00:00 [facility] Influenza Virus 2016-08-04 Completed Universit y of Vaccine Quad IM 3+ 00:00:00 [facility] Influenza Virus 2016-08-04 Completed Universit y of Vaccine Quad IM 3+ 00:00:00 [facility] Influenza Virus 2016-08-04 Completed Universit y of Vaccine Quad IM 3+ 00:00:00 [facility] Influenza Virus 2016-08-04 Completed Universit y of Vaccine Quad IM 3+ 00:00:00 [facility] Influenza Virus 2016-08-04 Completed Universit y of Vaccine Quad IM 3+ 00:00:00 [facility] Influenza Virus 2016-08-04 Completed Universit y of Vaccine Quad IM 3+ 00:00:00 [facility] Influenza Virus 2016-08-04 Completed Universit y of Vaccine Quad IM 3+ 00:00:00 [facility] Influenza Virus 2016-08-04 Completed Universit y of Vaccine Quad IM 3+ 00:00:00 [facility] Influenza Virus 2016-08-04 Completed Universit y of Vaccine Quad IM 3+ 00:00:00 [facility] Influenza Virus 2016-08-04 Completed Universit y of Vaccine Quad IM 3+ 00:00:00 [facility] Influenza Virus 2016-08-04 Completed Universit y of Vaccine Quad IM 3+ 00:00:00 [facility] Influenza Virus 2016-08-04 Completed Universit y of Vaccine Quad IM 3+ 00:00:00 [facility] Vital Signs Vital Name Observation Time Observation Value Comments Source Systolic blood 2021-05-31 21:42:00 145 mm[Hg] Univer sity of pressure [facility] Diastolic blood 2021-05-31 21:42:00 88 mm[Hg] Unive rsity of [facility] Heart rate 2021-05-31 21:41:00 69 /min [facility] Body height 2021-05-31 21:41:00 167.6 cm [facility] Body weight 2021-05-31 21:41:00 67.586 kg [facility] BMI 2021-05-31 21:41:00 24.05 kg/m2 [facility] Respiratory rate 2021-04-03 17:09:00 20 /min [facility] Oxygen saturation in 2021-04-03 17:09:00 94 /min [facility] Arterial blood by [facility] Pulse oximetry Branch Systolic blood 2021-04-03 16:32:00 133 mm[Hg] Univer sity of pressure [facility] Branch Diastolic blood 2021-04-03 16:32:00 62 mm[Hg] Unive rsity of pressure [facility] Heart rate 2021-04-03 16:32:00 51 /min Universi ty of [facility] Body temperature 2021-04-03 16:32:00 36.89 Farnaz Univ ersity of [facility] Body height 2021-04-02 07:24:00 167.6 cm [facility] [place] [facility] Body weight 2021-04-02 00:32:00 70.761 kg [facility] [place] [facility] BMI 2021-04-02 00:32:00 25.18 kg/m2 Universi ty of [facility] Systolic blood 2021-03-04 20:21:00 123 mm[Hg] Univer sity of pressure [facility] Diastolic blood 2021-03-04 20:21:00 74 mm[Hg] Unive rsity of pressure [facility] Heart rate 2021-03-04 20:21:00 69 /min [facility] [place] [facility] Body height 2021-03-04 20:21:00 167.6 cm [facility] [place] [facility] Body weight 2021-03-04 20:21:00 70.761 kg [facility] [place] [facility] BMI 2021-03-04 20:21:00 25.18 kg/m2 Universi ty of [facility] Oxygen saturation in 2021-03-04 20:21:00 100 /min [facility] Arterial blood by [facility] Pulse oximetry Branch Systolic blood 2020-08-30 20:05:00 156 mm[Hg] Univer sity of pressure [facility] Diastolic blood 2020-08-30 20:05:00 81 mm[Hg] Unive rsity of pressure [facility] Heart rate 2020-08-30 20:05:00 62 /min Universi ty of [facility] Body temperature 2020-08-30 20:05:00 36.67 Farnaz Univ ersity of [facility] Respiratory rate 2020-08-30 20:05:00 16 /min Univ ersity of [facility] Body height 2020-08-30 20:05:00 167.6 cm Universi ty of [facility] Body weight 2020-08-30 20:05:00 71.578 kg [facility] [place] [facility] BMI 2020-08-30 20:05:00 25.47 kg/m2 Universi [facility] Systolic blood 2021-08-02 15:28:00 166 mm[Hg] [facility] pressure Diastolic blood 2021-08-02 15:28:00 79 mm[Hg] [facility] pressure Heart rate 2021-08-02 15:28:00 57 /min [facility] Body temperature 2021-08-02 15:28:00 36.89 Farnaz [facility] Respiratory rate 2021-08-02 15:28:00 18 /min [facility] Oxygen saturation in 2021-08-02 15:28:00 98 /min [facility] Arterial blood by Pulse oximetry Body height 2020-12-13 14:13:00 170.2 cm [facility] Body weight 2020-12-13 14:13:00 72.774 kg [facility] BMI 2020-12-13 14:13:00 25.13 kg/m2 [facility] Procedures Procedure Date / Time Performing Source Performed Clinician PHYSICIAN ORDERS 2021-09-17 Doctor Unassigned, [place] [facility] 06:01:00 [facility] XR SHOULDER 2+ VIEWS RIGHT 2021-08-26 Gerald Curran MD [facility] 15:52:14 MRI BRAIN WO CONTRAST 2021-08-09 Isabel Snow [facility] 15:20:51 CELL COUNT AND DIFFERENTIAL, 2021-08-02 Tae Salazar [facility] BODY FLUID 21:32:00 NM BONE SCAN 3 [facility] CT UPPER EXTREMITY WO RIGHT 2021-08-02 Tae Salazar [facility] 18:25:00 FL RAD NEEDLE ASPIRATION 2021-08-02 Tae Salazar [facility] 16:51:02 JOINT FLUID CULTURE 2021-08-02 Tae Salazar [facility] 16:25:00 ANAEROBIC CULTURE 2021-08-02 Tae Salazar [facility] 16:25:00 FUNGUS CULTURE 2021-08-02 Tae Salazar [facility] 16:25:00 AFB CULTURE 2021-08-02 [facility] 16:25:00 FUNGUS SMEAR 2021-08-02 Leticia [facility]azarshua [facility] 16:25:00 AFB STAIN 2021-08-02 [facility] 16:25:00 REFERRAL- REQUEST/RESPONSE 2021-04-30 Doctor Unassigned, [facility] 05:01:00 [facility] BASIC METABOLIC PANEL (NA, K, 2021-04-03 [facility], GLUCOSE, BUN, 10:03:00 Medical B ran CREATININE, CA) ELECTROENCEPHALOGRAM 2021-04-03 Vicky [facility] [place] 00:00:00 [facility] URINE CULTURE 2021-04-02 Haider [facility] 03:50:00 [facility] TROPONIN I 2021-04-02 Haider [facility] 02:06:00 [facility] HEPATIC FUNCTION PANEL 2021-04-02 Haider [facility] ([id number]) (ALB,T.PRO,BILI 02:06:00 Medical Branch T,BU/BC,ALT,AST,ALK PHOS) BASIC METABOLIC PANEL (NA, K, 2021-04-02 Steven Maloney [facility] CL, CO2, GLUCOSE, BUN, 02:06:00 Medical B ran CREATININE, CA) ETHANOL 2021-04-02 Haider [facility] 02:06:00 [facility] N-TERMINAL PRO-BNP 2021-04-02 Rocky Cleaning [facility] 02:06:00 [facility] COVID-19 ([facility] 02:06[facility] [facility] [address] HEAD WO CONTRAST 2021-04-02 Steven Maloney [facility] 01:42:34 [facility] XR CHEST 1 VW 2021-04-02 Haider [facility] 01:20:37 [facility] AC PANEL 20 + LACTIC ACID 2021-04-02 Steven Maloney [facility] 01:13:00 [facility] URINE DRUG (IMMUNOASSAY) - 2021-04-02 Steven Maloney [facility] [place] COMPREHENSIVE DRUG SCREEN 01:12:00 Medica l Branch CBC WITH DIFF 2021-04-02 Steven Maloney [facility] 01:12:00 Medical Branch PROTHROMBIN TIME / INR 2021-04-02 Steven Maloney [facility] 01:12:00 Medical Branch ACTIVATED PARTIAL THRMPLAS 2021-04-02 Steven Maloney [facility] MAMTA 01:12:00 Medical Branch URINALYSIS 2021-04-02 Steven Mal[facility] 01:11:00 Medical Branch HB ECG ROUTINE & RHYTHM STRIP 2021-04-02 Steven Maloney [facility] 01:06:28 Medical Branch NOTICE OF PRIVACY PRACTICES 2021-04-02 Doctor Unassigned, [facility] 00:25:37 [facility] CONSENT/REFUSAL FOR DIAGNOSIS 2021-04-02 Doctor Unassigned, [facility] AND TREATMENT 00:24:42 [facility] AGREEMENTS AUTHORIZATIONS AND 2021-04-01 Doctor Cassie, [facility] IRREVOCABLE ASSIGNMENTS (FORM 05:01:00 [facility] Or dical Branch 2000) AUTHORIZATION TO RELEASE PHI 2021-03-04 Doctor Cassie, [facility] TO [facility] 05:01:00 [facility] REFERRAL- REQUEST/RESPONSE 2021-02-20 Doctor Galesssarkis, [facility] 05:01:00 [facility] POTASSIUM LEVEL 2020-12-14 Tae Salazar [facility] paula 15:05:00 HC COMPLETE BLD COUNT W/AUTO 2020-12-14 Mike Bradford [facility] DIFF 09:24:00 BASIC METABOLIC PANEL 2020-12-14 [facility] 09[facility]00 ESTIMATED GFR 2020-12-14 [facility] 09:24:00 SURGICAL PATHOLOGY REQUEST 2020-12-13 Tae Salazar [facility] 19:49:00 SD AN ELECTIVE ENDOTRACHEAL 2020-12-13 Himanshu Ludwig [facility] AIRWAY 19:25:07 ARTHROPLASTY, SHOULDER, TOTAL 2020-12-[address] [facility] 18:32:00 ANESTHESIA PERIPHERAL BLOCK 2020-12-13 MuñozBaljit [facility] 17:53:19 [place] POC GLUCOSE 2020-12-13 [facility] paula 14:30:00 URINE CULTURE 2020-12-11 [facility] 20:30:00 ECG PRE/POST OP 2020-12-11 [facility] 18:55:32 COVID-19 QUALITATIVE RT-PCR 2020-12-11 Aimee Navarro [facility] 18:15:00 URINALYSIS SCREEN AND 2020-12-11 Omaira Li [facility] MICROSCOPY, WITH REFLEX TO 18:15:00 CULTURE TYPE AND SCREEN 2020-12-11 [facility] 18:15:00 HEMOGLOBIN A1C 2020-12-11 [facility] 18:15:00 PARTIAL THROMBOPLASTIN TIME 2020-12-11 Omaira Li [facility] (PTT) 18:15:00 PROTHROMBIN TIME WITH INR 2020-12-11 Omaira Li [facility] 18:15:00 COMPREHENSIVE METABOLIC PANEL 2020-12-11 Omaira Li [facility] 18:15:00 HC COMPLETE BLD COUNT W/AUTO 2020[facility]11 [facility] DIFF 18:15:00 ESTIMATED GFR 2020-12-11 [facility] 18[facility]15:00 CELL COUNT AND DIFFERENTIAL, 2020-10-17 Tae Salazar [facility] BODY FLUID 18:16:00 NM BONE SCAN 3 PHASE 2020-10-17 LeoTae barrios [facility] 18:14:14 FL RAD NEEDLE ASPIRATION 2020-10-17 Tae Salazar [facility] 17:28:02 JOINT FLUID CULTURE 2020-10-17 Tae Salazar [facility] 16:50:00 ANAEROBIC CULTURE 2020-10-17 [facility] 16:50:00 FUNGUS CULTURE 2020-10-17 [facility] paula 16:50:00 AFB CULTURE 2020-10-17 Leticia [facility] 16:50:00 FUNGUS SMEAR 2020-10-17 Charles Tae [facility] 16:50:00 AFB STAIN 2020-10-17 Tae Salazar [facility] 16:50:00 CT UPPER EXTREMITY WO RIGHT 2020-10-17 LeoTae [facility] 15:45:16 XR SHOULDER 2+ VW RIGHT 2020-10-10 Leo, [facility] 20:11:07 EXTERNAL PROVIDER RECORDS 2020-09-19 Doctor Unassigned, [facility] 06:01:00 [facility] PATIENT FINANCIAL POLICY 2020-08-30 Doctor Unassigned, [facility] 19:45:11 [facility] NO SHOW OR MISSED APPOINTMENT 2020-08-30 Doctor Unassigned, [facility] POLICY ACKNOWLEDGEMENT 19:44:52 [facility] NOTICE OF PRIVACY PRACTICES 2020-08-30 Doctor Unassigned, [facility] 19:44:13 [facility] CONSENT TO CONTACT FOR 2020-08-30 Doctor Galessigned, [facility] VOLUNTARY RESEARCH 19:43:51 [facility] CONSENT/REFUSAL FOR DIAGNOSIS 2020-08-30 Doctor Unassigned, [facility] AND TREATMENT 19:43:19 [facility] ASSIGNMENT OF BENEFITS 2020-08-30 Doctor Unassigned, [facility] 19:42:42 [facility] Plan of Care Planned Activity Planned Date Details Comments Source Future Scheduled Test Hepatitis C screening [facility] (procedure) [code = 360697103] Future Scheduled Test Screening for malignant [facility] neoplasm of cervix (procedure) [code = 017654636] Future Scheduled Test BREAST CANCER SCREENING [facility] [code = BREAST CANCER SCREENING] Future Scheduled Test COLONOSCOPY SCREENING [facility] [code = COLONOSCOPY SCREENING] Future Scheduled Test COVID-19 VACCINE ([address] [place] [address] Moderna 2-dose series) [code = COVID-19 VACCINE (2 - Moderna 2-dose series)] Future Scheduled Test INFLUENZA VACCINE [code [facility] = INFLUENZA VACCINE] Encounters Start End Encounter Admission Attending Care Care Encounter Source Date/Time Date/Time Type Type Clinicians Facility Department ID 2021-09-08 Emergency [facility] [id number] Univers 21:01:20 ity [facility] 2021-08-26 Outpatient [facility] [id number] MD 10:37:07 Health 2021-08-09 Outpatient LINDA [facility] [id number] MD 11:36:26 [facility] 2020-03-19 Inpatient U [facility] CAR [address] [facility] H 04:07:00 2021-09-17 2021-09-17 Crew Member Ashley Nieves Lab Main [facility] 1.2.8 40.114 [id number] Univers 17:25:33 17:40:33 Visit Beau Romero 350.1.13.1 0 [place] of [place] [phone] Or dical [address] 2021-09-17 2021-09-17 Outpatient R [facility] [id number] Univers 16:00:00 16:00:00 [id number] ity [facility] 2021-09-17 2021-09-17 Outpatient R NICK [facility] [id number] Univers 16:00:00 16:00:00 BEAU [facility] 2021-09-17 2021-09-17 Orders Doctor FARFAN 1.2.840.114 [id number] Univers 00:00:00 00:00:00 Only Unassigned, [place] 350.1.13.10 ity of [place] [facility] 4.2.7.2.686 Reinaldo as [phone] [address] 2021-08-29 2021-08-29 Outpatient R SAGRARIO [facility] [id number] [id number] Univers 13:00:00 13:00:00 [facility] [id number] [facility] 2021-08-29 2021-08-29 Outpatient R SAGRARIO [facility] [id number] Univers 13:00:00 13:00:00 EMILY denis [facility] 2021-08-26 2021-08-26 Office VERITO CURRAN 6400 1.2.420.047 [id number] MD 10:03:44 10:18:[address] 350.1.13.58 Health 9.2.7.2.686 [id number] 3 2021-08-16 2021-08-16 Travel 1.2.840.1 1.2.644.149 9912 [id number] Methodi 00:00:00 00:00:[address] 3.430.2.7 0.2.7.3.698 Ho spita .3.309858 084.8 l .8 2021-08-13 2021-08-13 Travel 1.2.840.1 1.2.981.331 6990 169863 Methodi 00:00:00 00:00:[address] 3.430.2.7 0.2.7.3.698 Ho spita .3.728254 084.8 l .8 2021-08-12 2021-08-12 Office Leo, 1.2.840.1 [id number] 7599 Methodi 08:43:45 10:09:31 Visit Tae Harris 59489.1.[address] 3.430.2.7 Hospit a .3.492121 l .8 2021-08-07 2021-08-07 Telephone Boothe, 1.2.840.1 [id number] 2099 [id number] Methodi 00:00:00 00:00:[address] Julius 3.430.2.7 Hospi ta .3.654393 l .8 2021-08-07 2021-08-07 Travel 1.2.840.1 1.2.310.650 4246 764977 Methodi 00:00:00 00:00:[address] 3.430.2.7 0.2.7.3.698 Ho spita .3.219038 084.8 l .8 2021-08-06 2021-08-06 Telephone Charles, 1.2.840.1 [id number] 2099 203093 Methodi 00:00:00 00:00:[address] Campbell[address]0569.1.[address] 3.430.2.7 Hospit a .3.022070 l .8 2021-08-02 2021-08-02 [facility], 1.2.840.1 [id number] 3766 Methodi 16:31:40 16:36:[address]1516.1.[address] 3.430.2.7 Hospit a .3.094904 l .8 2021-08-02 2021-08-02 [facility], 1.2.840.1 [id number] 54371 [place] 00:00:00 00:00:00 Encounter TAE 76841.1.[address] .3.229512 .8 2021-08-02 2021-08-02 [facility], 1.2.840.1 [id number] 06057 [place] 00:00:00 00:00:00 Encounter TAE 38396.1.[address] .3.226429 .8 2021-08-02 2021-08-02 [facility], 1.2.840.1 [id number] 97869 [place] 00:00:00 00:00:00 Encounter TAE 83750.1.[address] .3.099652 .8 2021-08-02 2021-08-02 [facility], 1.2.840.1 [id number] 21001 27633 [place] 00:00:00 00:00:00 Encounter TAE 64563.1.[address] .3.217154 .8 2021-08-02 2021-08-02 Travel 1.2.840.1 1.2.643.076 0072 627642 Methodi 00:00:00 00:00:[address] 3.430.2.7 0.2.7.3.698 Ho spita .3.876455 084.8 l .8 2021-07-31 2021-07-[address] [facility] OP Gwendolyn, EXT MSRDP 1.2.840.114 1 [id number] MD 00:00:00 00:00:00 Isabel LOCATION 350.1.13.58 Health 9.2.7.2.686 [id number] 0 2021-07-29 2021-07-29 Travel 1.2.840.1 1.2.452.075 7761 247951 Methodi 00:00:00 00:00:[address] 3.430.2.7 0.2.7.3.698 Ho spita .3.365864 084.8 l .8 2021-07-10 2021-07-10 Travel 1.2.840.1 1.2.459.784 5123 885545 Methodi 00:00:00 00:00:[address] 3.430.2.7 0.2.7.3.698 Ho spita .3.587781 084.8 l .8 2021-07-03 2021-07-03 Office Leo, 1.2.840.1 [id number] 0020 Methodi 13:57:58 16:40:55 Visit Tae Harris 31348.1.[address] 3.430.2.7 Hospit a .3.930383 l .8 2021-07-03 2021-07-03 Travel 1.2.840.1 1.2.890.908 8654 293081 Methodi 00:00:00 00:00:[address] 3.430.2.7 0.2.7.3.698 Ho spita .3.655476 084.8 l .8 2021-07-01 2021-07-01 Travel 1.2.840.1 1.2.641.092 8683 673714 Methodi 00:00:00 00:00:[address] 3.430.2.7 0.2.7.3.698 Ho spita .3.976617 084.8 l .8 2021-05-31 2021-05-31 Office Mane, [facility] 1.2.840.114 [id number] Univers 16:24:31 16:59:54 Visit Goyo Still Ziggy 350.1.13.10 ity of [place] [phone] Or dical nal 092 Branch [facility] [address] 2021-05-31 2021-05-31 Outpatient GOYO GILLIAM [facility] [id number] Univers 16:20:00 16:20:00 GOYO GILLIAM [id number] [facility] 2021-05-31 2021-05-31 Outpatient GOYO RODRIGUEZ [facility] [id number] Univers 16:20:00 16:20:00 [facility] 2021-05-27 2021-05-27 Outpatient Cary SIMMONS [facility] [id number] Univers 10:30:00 10:30:00 [facility] [id number] y [facility] 2021-05-27 2021-05-27 Outpatient Cary SIMMONS [facility] [id number] Univers 10:30:00 10:30:00 [facility] 2021-04-30 2021-04-30 Orders Doctor FARFAN 1.2.840.114 [id number] Univers 00:00:00 00:00:00 Only Unassigned, [place] 350.1.13.10 ity of [place] [facility] 4.2.7.2.686 Reinaldo as [phone] [facility] 009 Branch 2021-04-04 2021-04-04 Transition Rylie Clay 1.2.840.114 [id number] Univers 00:00:00 00:00:00 of Care Chelsey Mckeon 350.1.13.10 it y of [place] [id number] [facility] 403 Branch 2021-04-01 2021-04-03 [facility] Steven Maloney 1.2.840.1 14 [id number] Univers 19:39:00 16:59:00 Encounter Manuel Lambert Inga 350.1. 13.10 [facility] 4.2.7.2.686 [place] [phone] [facility] 094 [place] 2021-04-01 2021-04-01 Nurse ADOLPH Rutherford 1.2.737.384 [id number] Univers 00:00:00 00:00:00 Triage Christian MATTHEWS 350.1.13.10 it y of [facility] 4.2.7.2.686 Reinaldo as [phone] [facility] 019 Branch 2021-03-19 2021-03-19 Outpatient R [facility] [id number] Univers 13:00:00 13:00:00 [id number] y [facility] 2021-03-19 2021-03-19 Outpatient R GOYO GILLIAM [facility] [id number] Univers 13:00:00 13:00:00 GOYO GILLIAM [facility] 2021-03-04 2021-03-04 Office Mane [facility] 1.2.840.114 [id number] Univers 14:56:39 16:12:00 Visit Goyo Trinh 350.1.13.10 ity [facility] [place] [phone] Or dical critical [facility] 092 [facility] 2021-03-04 2021-03-04 Outpatient R GOYO GILLIAM [facility] [id number] Univers 15:00:00 15:00:00 GOYO GILLIAM [id number] [facility] 2021-03-04 2021-03-04 Outpatient R GOYO GILLIAM [facility] [id number] Univers 15:00:00 15:00:00 GOYO GILLIAM [facility] 2021-03-04 2021-03-04 Orders Doctor FARFAN 1.2.840.114 [id number] Univers 00:00:00 00:00:00 Only Unassigned, [place] 350.1.13.10 ity of [facility] 4.2.7.2.686 Reinaldo as [phone] [facility] 009 Branch 2021-02-20 2021-02-20 Orders Doctor FARFAN 1.2.840.114 [id number] Univers 00:00:00 00:00:00 Only UnassignedINGA 350.1.13.10 ity of [place] [facility] 4.2.7.2.686 Reinaldo as [phone] [facility] 009 Branch 2021-01-23 2021-01-23 Outpatient MIN [facility] [id number] Univers 14:00:00 14:00:00 BALJIT ity of [facility] 2021-01-19 2021-01-19 [facility] 1.2.840.114 [id number] Univers 00:00:00 00:00:00 Outreach Baljit PRIMARY 350.1.13.10 i ty of [facility] [place].2.7.2.[place] [phone] Or dical [address] [place] [address] 2021-01-19 2021-01-19 Patient Min [facility] 1.2.840.114 [id number] 00:00:00 00:00:00 Outreach Baljit PRIMARY 350.1.13.10 [place] [facility] 4.2.7.2.686 PAVILLION [id number] 388 2021-01-17 2021-01-17 Orders Abel, 1.2.840.1 [id number] 6238 Methodi 00:00:00 00:00:00 Only Dori 86512.1.[address] 3.430.2.7 Hospit a .3.791859 l .8 2021-01-03 2021-01-03 Orders Ramon, 1.2.840.1 [id number] 722 8133521 Methodi 00:00:00 00:00:00 [address] Aimee 29048.1.[address] 3.430.2.7 Hospit a .3.189956 l .8 2021-01-03 2021-01-03 Telephone Charles, 1.2.840.1 [id number] 2100 589106 Methodi 00:00:00 00:00:[address] 3.430.2.7 Hospit a .3.452134 l .8 2021-01-02 2021-01-02 Office Leo, 1.2.840.1 [id number] 5797 Methodi 11:18:16 12:06:52 Visit Tae Harris 50326.1.[address] 3.430.2.7 Hospit a .3.427906 l .8 2021-01-02 2021-01-02 Travel 1.2.840.1 1.2.243.603 0039 300373 Methodi 00:00:00 00:00:[address] 3.430.2.7 0.2.7.3.698 Ho spita .3.621710 084.8 l .8 2020-12-27 2020-12-27 Travel 1.2.840.1 1.2.748.785 9402 208232 Methodi 00:00:00 00:00:[address] 3.430.2.7 0.2.7.3.698 Ho spita .3.817012 084.8 l .8 2020-12-19 2020-12-19 Orders Ramon, 1.2.840.1 [id number] 759 1802779 Methodi 00:00:00 00:00:00 Only Aimee 56866.1.[address] 3.430.2.7 Hospit a .3.549008 l .8 2020-12-19 2020-12-19 Orders Abel, 1.2.840.1 [id number] 349637 8815 Methodi 00:00:00 00:00:00 Only Dori 52896.1.[address] 3.430.2.7 Hospit a .3.455574 l .8 2020-12-17 2020-12-17 Telephone Ramon, 1.2.840.1 [id number] 2 [id number] Methodi 00:00:00 00:00:[address] 3.430.2.7 Hospit a .3.033818 l .8 2020-12-17 2020-12-17 Travel 1.2.840.1 1.2.335.030 9841 338934 Methodi 00:00:00 00:00:[address] 3.430.2.7 0.2.7.3.698 Ho spita .3.679832 084.8 l .8 2020-12-15 2020-12-15 Telephone Eleni, 1.2.840.1 [id number] 161 [id number] Methodi 00:00:00 00:00:[address] 3.430.2.7 Hospit a .3.107449 l .8 2020-12-13 2020-12-14 [facility], 1.2.840.1 [id number] 04286 33096 Methodi 07:03:00 17:24:00 Encounter Tae Harris 78853.1.[address] 3.430.2.7 Hospit a .3.284306 l .8 2020-12-13 2020-12-13 Anesthesia Baljit Muñoz 1.2.840 .1 [id number] Methodi 12:32:00 15:20:00 Omaira Cantu 04144.1.[address] 3.430.2.7 Hospit a .3.865494 l .8 2020-12-13 2020-12-13 [facility] 1.2.840.1 [id number] 3280 Methodi 11:30:00 15:05:00 Tae Harris 25839.1.[address] 3.430.2.7 Hospit a .3.293932 l .8 2020-12-13 2020-12-13 [facility] 1.2.840.1 [id number] 2100 629318 Methodi 00:00:00 00:00:00 Tae Harris 26262.1.[address] 3.430.2.7 Hospit a .3.508171 l .8 2020-12-13 2020-12-13 Orders Leo, 1.2.840.1 [id number] 6827 Methodi 00:00:00 00:00:00 Only Tae Harris 60538.1.[address] 3.430.2.7 Hospit a .3.756883 l .8 2020-12-13 2020-12-13 Travel 1.2.840.1 1.2.142.558 1427 800280 Methodi 00:00:00 00:00:[address] 3.430.2.7 0.2.7.3.698 Ho spita .3.201374 084.8 l .8 2020-12-12 2020-12-12 Telephone Charles, 1.2.840.1 [id number] 2099 226906 Methodi 00:00:00 00:00:00 Tae Harris 39848.1.[address] 3.430.2.7 Hospit a .3.150882 l .8 2020-12-11 2020-12-11 Pre-Admiss Leo, 1.2.840.1 [id number] 270 0555018 Methodi 11:04:20 12:04:20 ion Tae Harris 51037.1.[address] Testing 3.430.2.7 Hospit a .3.000408 l .8 2020-12-11 2020-12-11 Pre-Admiss 1.2.840.1 [id number] 549 [id number] Methodi 10:30:00 11:30:[address] Testing 3.430.2.7 Hospit a .3.874581 l .8 2020-12-11 2020-12-11 Travel 1.2.840.1 1.2.358.236 9990 709790 Methodi 00:00:00 00:00:[address] 3.430.2.7 0.2.7.3.698 Ho spita .3.033494 084.8 l .8 2020-12-042020-12-04 Freddy Navarro, 1.2.840.1 [id number] 478 2217582 Methodi 00:00:00 00:00:00 Only Aimee 35320.1.[address] 3.430.2.7 Hospit a .3.325925 l .8 2020-12-04 2020-12-04 Travel 1.2.840.1 1.2.548.098 3683 241144 Methodi 00:00:00 00:00:[address] 3.430.2.7 0.2.7.3.698 Ho spita .3.180237 084.8 l .8 2020-11-21 2020-11-21 Freddy Navarro, 1.2.840.1 [id number] 062 [id number] Methodi 00:00:00 00:00:00 Only Aimee 55921.1.[address] 3.430.2.7 Hospit a .3.299528 l .8 2020-11-20 2020-11-20 Pre-Admiss Leo, 1.2.840.1 [id number] 944 9357545 Methodi 13:30:00 14:30:00 lawrence Kellyall Harris 69438.1.[address] Testing 3.430.2.7 Hospit a .3.039151 l .8 2020-11-20 2020-11-20 Travel 1.2.840.1 1.2.593.645 9793 526788 Methodi 00:00:00 00:00:[address] 3.430.2.7 0.2.7.3.698 Ho spita .3.269222 084.8 l .8 2020-11-20 2020-11-20 Cristino Ramon, 1.2.840.1 [id number] 2 [id number] Methodi 00:00:00 00:00:[address] 3.430.2.7 Hospit a .3.541640 l .8 2020-11-13 2020-11-13 Freddy Roman, 1.2.840.1 [id number] 682705 0243 Methodi 00:00:00 00:00:00 Only Dori Blake50.1.[address] 3.430.2.7 Hospit a .3.453107 l .8 2020-11-06 2020-11-06 [facility], 1.2.840.1 [id number] 2100 518649 Methodi 00:00:00 00:00:[address] 3.430.2.7 Hospit a .3.855026 l .8 2020-10-24 2020-10-24 [facility], 1.2.840.1 [id number] 979257 4337 Methodi 12:58:09 13:58:27 Visit Tae Blake50.1.[address] 3.430.2.7 Hospit a .3.579489 l .8 2020-10-24 2020-10-24 Travel 1.2.840.1 1.2.775.712 1167 171871 Methodi 00:00:00 00:00:[address] 3.430.2.7 0.2.7.3.698 Ho spita .3.045368 084.8 l .8 2020-10-17 2020-10-17 [facility], 1.2.840.1 [id number] 19811 27388 Methodi 12:05:45 23:59:00 Encounter Tae Blake50.1.[address] 3.430.2.7 Hospit a .3.271524 l .8 2020-10-17 2020-10-17 [facility], 1.2.840.1 [id number] 6860 Methodi 13:32:52 13:37:[address] 3.430.2.7 Hospit a .3.641384 l .8 2020-10-17 2020-10-17 [facility], 1.2.840.1 [id number] 00398 80409 Methodi 09:42:51 12:04:00 Encounter Tae Harris 48236.1.[address] 3.430.2.7 Hospit a .3.682383 l .8 2020-10-17 2020-10-17 [facility] 1.2.840.1 [id number] 01594 75029 Methodi 08:35:22 09:41:00 Encounter Tae Harris 42866.1.[address] 3.430.2.7 Hospit a .3.704279 l .8 2020-10-17 2020-10-17 [facility] 1.2.840.1 [id number] 41490 08335 Methodi 08:30:00 08:34:00 Encounter Tae Harris 40206.1.[address] 3.430.2.7 Hospit a .3.512936 l .8 2020-10-17 2020-10-17 Travel 1.2.840.1 1.2.910.109 2595 586819 Methodi 00:00:00 00:00:[address] 3.430.2.7 0.2.7.3.698 Ho spita .3.333531 084.8 l .8 2020-10-10 2020-10-10 [facility] 1.2.840.1 [id number] 057388 5143 Methodi 13:23:54 14:33:23 Visit Tae Harris 35252.1.[address] 3.430.2.7 Hospit a .3.273232 l .8 2020-10-10 2020-10-10 Travel 1.2.840.1 1.2.407.204 2904 474426 Methodi 00:00:00 00:00:[address] 3.430.2.7 0.2.7.3.698 Ho spita .3.300494 084.8 l .8 2020-10-01 2020-10-01 Travel 1.2.840.1 1.2.741.714 9173 948815 Methodi 00:00:00 00:00:[address] 3.430.2.7 0.2.7.3.698 Ho spita .3.681937 084.8 l .8 2020-09-28 2020-09-28 [facility] 15:16:00 15:16:00 2020-09-26 2020-09-26 Emergency E [facility] 7503 [facility] 18:28:00 18:28:00 2020-09-24 2020-09-24 Laboratory Lab, [facility] Pob I [facility] 1.2. 840.114 [id number] Univers 18:30:16 18:50:16 [address] [facility] 350.1.13.10 ity Billy Leung [place] 4.2.7.2.686 [place] Professio [phone] Or dical [address] Office Building [employer] 2020-09-24 2020-09-24 Laboratory Lab, [facility] 1.840.114 [id number] 18:30:16 18:50:16 Only [facility] Health 350.1.13.10 [place] 4.2.7.2.686 Professio [phone] [place] [address] [address] [employer] 2020-09-24 2020-09-24 Outpatient R [facility] [id number] -[id number] Univers 18:40:00 18:40:00 [id number] [facility] [place] 2020-09-24 2020-09-24 Outpatient [facility] [id number] Univers 18:40:00 18:40:00 [facility] 2020-09-24 Travel 1.2.840.1 1.2.810.531 [id number] Methodi 00:00:00 00:00:[address] 3.430.2.7 0.2.7.3.698 Ho spita .3.013124 084.8 l .8 2020-09-19 2020-09-19 Orders Doctor ADOLPH 1.2.840.114 [id number] Univers 00:00:00 00:00:00 Only Unassigned, INGA 350.1.13.10 ity of [facility] 4.2.7.2.686 Reinaldo as [phone] [facility] [address] 2020-09-19 2020-09-19 Orders Doctor ADOLPH 1.2.840.114 [id number] 00:00:00 00:00:00 Only Unassigned, INGA 350.1.13.10 [facility] 4.2.7.2.686 [id number] 009 2020-09-06 2020-09-06 Travel 1.2.840.1 1.2.674.301 [id number] Methodi 00:00:00 00:00:[address] 3.430.2.7 0.2.7.3.698 Ho spita .3.107234 084.8 l .8 2020-09-05 2020-09-05 [facility] 1.2.[facility]79.847 [id number] [facility] 00:00:00 00:00:00 Management Annika Trinh 350.1.13.10 ity of [place] 4[place]2.[place].2.[place] [phone] Me dical [address] 2020-09-05 2020-09-05 Case Jaime [facility] 1.2.847.257 [id number] [id number] 00:00:00 00:00:00 Management Annika Trinh 350.1.13.10 [place] 4.2.7.2.686 Professio [phone] [address] 2020-09-04 2020-09-04 Travel 1.2.840.1 1.2.393.130 [id number] [id number] Methodi 00:00:00 00:00:[address] 3.430.2.7 0.2.7.3.698 Ho spita .3.774383 084.8 l .8 2020-08-30 2020-08-30 Office Josepepitolloyd [facility] 1.2.702.401 [id number] 6935 [facility] 14:45:50 15:47:54 Visit Annika Trinh 350.1.13.10 i ty [place] 4[place] [phone] Or dical [address] 2020-08-30 2020-08-30 [facility] [id number]P-[id number] Univers 14:30:00 14:30:00 ANNIKA [id number] ity [facility] 2020-08-30 2020-08-30 [facility] [id number] Univers 14:30:00 14:30:00 ANNIKA ity [facility] 2020-08-30 2020-08-30 Orders Doctor ADOLPH 1.2.840.114 [id number] Univers 00:00:00 00:00:00 Only Unassigned, INGA 350.1.13.10 ity of [facility] 4.2.7.2.686 [place] as [phone] [address] 2020-04-24 2020-04-24 Emergency E [facility] BL 7502 BL 21:30:00 21:30:00 2020-03-19 2020-03-19 Emergency E [facility]BL BL 7501 [facility]BL 00:18:00 00:18:00 2020-03-18 2020-03-18 Nurse Isabell Diaz 1.2.840.114 [id number] Univers 00:00:00 00:00:00 Triage INGA 350.1.13.10 it y of [facility] 4.2.7.2.686 [place]inaldo as [phone] [address] 2019-08-03 2019-08-03 Outpatient [facility] 7500 [facility] 10:08:00 10:08:00 Results Test Description Test Time Test Comments Results Result Comments Source Joint fluid culture 2021-08-07 03:24:41 Test Item Value Reference Range Interpretation Comme nts Joint fluid culture No growth after 4 Spe cimen InformationSpecimen isolate (test code = days. Source: Joint FluidSpecimen Site: 1634) PLEASE HOLD FOR 21 DAYS [id number] 14:08:12 Test Item Value Reference Range Interpretation Comments Anaerobic No anaerobic Specimen culture isolate organisms InformationS pecimen (test code = isolated. Source: Joint 552) FluidSpecimen S ite: PLEASE HOLD [facility] DAYS [facility] [id number] 18:30:51 Test Item Value Reference Range Interpretation Comments Fungus smear No fungi Specimen (test code = observed. InformationSpec imen Source: 1443) Joint FluidSpec imen Site: PLEASE HOLD FOR 21 DAYS [facility] [id number] 16:04:26 Test Item Value Reference Range Interpretation Comments AFB stain No acid fast Specimen (test code = bacilli (AFB) InformationSpe [facility] stoughtonen 676-7) seen. Source: Joint FluidSpecimen S ite: PLEASE HOLD FOR 21 DAY S [facility] [id number] 03:53:00Gram stain isolateRare WBC'sNo organisms seen Comment: Specimen InformationSpecimen Source: Joint FluidSpecimen Site: PLEASE HOLD FOR 21 DAYS [facility] and differential, body [id number] 02:59:47 Test Item Value Reference Range Interpretation Comments Misc fluid type (test JOINT FLUID code = 34826-8) Color, fluid (test Red code = 6824-7) Appearance, fluid Clear (test code = 9335-1) RBC, fluid (test code See_Comment DISREG AMPARO PREVIOUS = 81902-6) RESULTS, WERE AUTOMATED (QUESTIONABLE); THEREFORE A MAN UAL COUNT WAS PERFORMED,AND M ANUAL COUNT CORRELATE D. Corrected resul t; previously repo rted as [phone] on 08/02/2021 at 1 7:19 by [id number] REPORT, Previou sly reported as: SD EVIOUS RESULTS WERE AUTOMATED (QUESTIONABLE), THEREFORE A MAN UAL COUNT WAS PERFORMED,AND M ANUAL COUNT CORRELATE D. (Reported 08/02 21:51) [Automa theodore message] The sy stem which generated this result transmit theodore reference range : /CMM. The refer ence range was not u sed to interpret this result as normal/abnor mal. Nucleated cells, See_Comment Corrected r esult; fluid (test code = previousl y reported 50865-1) as 1500 on 07/11 at 17:19 by PEC 3 [Automated mess age] The system [employer] h generated this result transmitted ref erence range: /CMM. Th e reference range was not used to int erpret this result as normal/abnormal . Fluid mononuclear 2/CMM cell (test code = 1407) SHEILA (test code = SHEILA) right knee [facility] Bone Scan 3 [id number] 23:08:01PROCEDURE: NM BONE SCAN 3 PHASE CLINICAL HISTORY: Z98.890 Other specified postprocedural states, M25.511 Pain in right shoulder, to rule out infection COMPARISON: Three-phase bone scan of the chest 10/17/2020; CT right upper extremity today TECHNIQUE: 25 millicuries of hmvnsixndc-45y-SIB were administered IV, followed by blood flow and blood pool imaging of the shoulders and chest. 3-5 hours later,delayed imaging was performed. FINDINGS:Mildly increased activity diffusely surrounding the right humeral prosthesis on the blood flow and blood pool images. Delayed imaging demonstrates mildly increased uptake surrounding the right humeral prosthesis. IMPRESSION:Mild abnormalities surrounding the right humeral prosthesis, unchanged from 10/17/2020. An infected prosthesis can have a similar appearance, but is rarely stable this long. Thus, it is possible this instead represents loosening associated with nonspecific inflammation/hyperemia. [facility]- [id number] [facility], Radiology Results 08/02/2021 6:11 PM CDT PROCEDURE: NM BONE SCAN 3 PHASECLINICAL HISTORY: Z98.890 Other specified postprocedural states, M25.511 Pain in right shoulder, to rule out infectionCOMPARISON: Three- phase bone scan of the chest 10/17/2020; CT right upper extremity todayTECHNIQUE: 25 millicuries of [id number]-06o-UWQ were administered IV, followed by blood flow and blood pool imaging of the shoulders and chest. 3-5 hours later, delayed imaging was performed.FINDINGS:Mildly increased activity diffusely surrounding the right humeral prosthesis on the blood flow and blood pool images. Delayed imaging demonstrates mildly increased uptake surrounding the right humeral prosthesis.IMPRESSION:Mild abnormalities surrounding the right humeral prosthesis, unchanged from 10/17/2020. An infected prosthesis can have a similar appearance, but is rarely stable this long. Thus, it is possible this instead represents loosening associated with nonspecific inflammation/hyperemia. [facility]-[id number] Rad Needle [id number] 21:27:06 EXAMINATION: OR RAD NEEDLE ASPIRATION CLINICAL HISTORY: Z98.890 Other specified postprocedural states, M25.511 Pain in right shoulder, right shoulder possible infection COMPARISON: 10/17/2020, 10/10/2020, RADIATION DOSE: Fluoroscopic time was 1 minute minutes. 3 fluoroscopic exposures. COMMENTS: Info rmed consent was obtained. Right shoulder joint was localized with fluoroscopy. The overlying skin was prepped and draped in routine sterile fashion. Using fluoroscopic guidance, after administration of local lidocaine, a 22G needle was advanced into the right shoulder joint. 1.0 cc's of serosanguineous synovial fluid were aspirated and sent for the requested labs. Patient tolerated the procedure and there were no immediate complications. IMPRESSION: Successful fluoroscopic guided right shoulder aspiration. [id number] Interface, Radiology Results - 08/02/2021 4:30 PM CDT EXAMINATION: FL RAD NEEDLE ASPIRATIONCLINICAL HISTORY: Z98.890 Other specified postprocedural states, M25.511 Pain in right shoulder, right shoulder possible infectionCOMPARISON: 10/17/2020, 10/10/2020, RADIATION DOSE: Fluoroscopic time was 1 minute minutes. 3 fluoroscopic exposures.COMMENTS:Informed consent was obtained. Right shoulder joint was localized with fluoroscopy. The overlying skin was prepped and draped in routine sterile fashion. Using fluoroscopic guidance, after administration of local lidocaine, a 22G needle was advanced into the right shoulder joint. 1.0 cc's of serosanguineous synovial fluid were aspirated and sent for the requested labs. Patient tolerated the procedure and there were no immediate complications.IMPRESSION:Successful fluoroscopic guided right shoulder aspiration.OPC-[id number] HospitalCT Upper Extremity Wo [id number] 19:38:05EXAMINATION: CT UPPER EXTREMITY WO RIGHT CLINICAL HISTORY: 56 years Female Z98.890 Other specified postprocedural states, M25.511 Pain in right shoulder, Shoulder replacement loosening suspected TECHNIQUE: Multiple axial images of the right shoulder were obtained without contrast. Images were submitt ed in bone and soft tissue windows. Sagittal and coronal computerized reformatted images were also obtained. CT imaging was performed with iterative reconstruction techniques and/or automated exposure control to reduce radiation dose. COMPARISON: CT dated October 17, 2020 FINDINGS: Redemonstration of the reversal total shoulder arthroplasty with good and solid integration of the glenoid implant as well as the humeral hardware. No significant lucency or abnormality visualized surrounding the glenoid superior. No fluid collections. No pseudotumor. Minimal heterotopic ossifications project along thesuperior margin of the medial hemisphere, unchanged. The humeral implant also show good appearance without complications, perihardware lucency or fracture. No subsidence. The bone cement interface appears adequate.There are heterotopic bone ossification along the medial humeral neck is unchanged without significant impingement or sequelae. Acromion shows unchanged mild lateral downsloping visualized.No fractures.There is moderate atrophy of the proximal deltoid fibers there is atrophy of the supraspinatus and infraspinatus tendons. Moderate atrophy of the subscapularis and teres minor.No axillary lesions or lymph nodes.Visualized portion of the lungs appear clear. IMPRESSION: 1.Reverse total shoulder arthroplasty shows good alignment with no perihardware complications or lucency.2.No significantheterotopic calcifications visualized. Minimal heterotopic ossification along the posterior superioraspect of the mid inferior is unchanged.3.No fluid collections or masslike lesions along the prosthesis. [id number] Interface, Radiology Results Incoming - 08/02/2021 2:41 PM CDT EXAMINATION: CT UPPER EXTREMITY WO RIGHTCLINICAL HISTORY: 56 years Female Z98.890 Other specified postprocedural states, M25.511 Pain in right shoulder, Shoulder replacement loosening suspectedTECHNIQUE: Multiple axial images of the right shoulder were obtained without contrast. Images were submitted in bone and soft tissue windows. Sagittal and coronalcomputerized reformatted images were also obtained. CT imaging was performed with iterative reconstruction techniques and/or automated exposure control to reduce radiation dose. COMPARISON: CT dated October 17, 2020FINDINGS:Redemonstration of the reversal total shoulder arthroplasty with good and solid integration of the glenoid implant as well as the humeral hardware. No significant lucency or abnormality visualized surrounding the glenoid superior. No fluid collections. No pseudotumor. Minimal heterotopic ossifications project along the superior margin of the medial hemisphere, unchanged.The humeral implant also show good appearance without complications, perihardware lucency or fracture. No subsidence. The bone cement interface appears adequate.There are heterotopic bone ossification along the medial humeral neck is unchanged without significant impingement or sequelae.Acromion shows unchanged mild lateral downsloping visualized. No fractures.There is moderate atrophy of the proximal deltoid fibers there is atrophy of the supraspinatus and infraspinatus tendons. Moderate atrophy of the subscapularis and teres minor.No axillary lesions or lymph nodes.Visualized portion of the lungs appear clear.IMPRESSION:1.Reverse total shoulder arthroplasty shows good alignment with no perihardware complications or lucency.2.No significant heterotopic calcifications visualized. Minimal heterotopic ossification along the posterior superior aspect of the mid inferior is unchanged.3.No fluid collections or masslike lesions along the prosthesis.[facility]-[id number] HospitalURINE [id number] 12:12:15 Test Item Value Reference Range Interpretation Comments URINE CULTURE (test < 10,000 CFU/mL mixed code = 630-4) aerobic organisms - suggests endogenous microbial contamination [facility] METABOLIC PANEL (NA, K, CL, CO2, GLUCOSE, BUN, CREATININE, CA)2021-04-03 11:03:41 Test Item Value Reference Range Interpretation Comments NA (test code = 136 mmol/L 135-145 4987238728) K (test code = 4.5 mmol/L 3.5-5.0 Slight 6014555812) hemolysis CL (test code = 94 mmol/L 98-108 L 2858120545) CO2 TOTAL (test code 38 mmol/L 23-31 H = 5323313275) AGAP (test code = 2-16 8113619095) BUN (test code = 28 mg/dL 7-23 H Slight 6632712612) hemolysis GLUCOSE (test code = 119 mg/dL 70-110 H 0246184503) CREATININE (test code 0.73 mg/dL 0.50-1.04 = 2685374139) CALCIUM (test code = 8.8 mg/dL 8.6-10.6 8052605187) eGFR (test code = mL/min/1.73m2 6914499105) SHEILA (test code = SHEILA) Association of Glomerular Filtration Rate (GFR) and Staging of Kidney Disease* + -----+ --------+ +| GFR (mL/min/1.73 m2) ?| With Kidney Damage ?| ?Without Kidney Damage+ +------- +---- --+| ?>90 ?| ?Stage one ?| ? Normal ?+ ------+ ---------+--------- +| ?60-89 ?| ?Stage two ?| ? Decreased GFR ? + -----+ --------+ +| ?30-59 ?| ?Stage three ?| ? Stage three ? + -----+ --------+ +| ?15-29 ?| ?Stage four ? | ? Stage four ?+ ------+ ---------+--------- +| ?<15 (or dialysis) ? ?| ?Stage five ? | ? Stage five ?+ ------+ ---------+--------- + *Each stage assumes the associated GFR level has been in effect for at least three months. ?Stages 1 to 5, with or without kidney disease, indicate chronic kidney disease. Notes: Determination of stages one and two (with eGFR >59mL/min/1.73 m2) requires estimation of kidney damage for at least three months as defined by structural or functional abnormalities of the kidney, manifested by either:Pathological abnormalities or Markers of kidney damage (including abnormalities in the composition of the blood or urine or abnormalities in imaging tests). Lab Interpretation Abnormal (test code = 74383-2) [facility] CenterElectro[facility] (EEG) - Duration of test: 20-60 mins; Release to patient: [id number] 00:00:00Date and Time of Procedure: 04/03/2021, 08:40 :03 - 08:58:11 REPORT TECHNICAL SUMMARY: The EEG was recorded digitally. Electrodes were applied using the International 10/20 System of electrode placement. Eye movements and rhythm strip ECG were monitored on separate channels of the ongoing EEG recording. The occipital dominant rhythm consists of moderate amplitude 9.9.5 Hz activity. More anteriorly, similar as well as faster frequencies are present, including low amplitude 18-22 Hz activities in the anterior leads. Drowsiness and sleep ?Was not seen Photic stimulation does not elicit any abnormalities. No electrographic seizures or epileptiform abnormalities are seen. IMPRESSION: This EEG is normal. An EMU (epilepsy monitoring unit) referral or long-term (24-96 hours) EEG might be beneficial in this case if clinically indicated, as they have significantly greater sensitivity than a 20-60 minute EEG, which has low sensitivity for detecting epileptiform abnormalities. The absence of epileptiform abnormalities in a 20-60 minute EEG does not necessarily rule out a diagnosis of epilepsy or the potential for epileptic seizures to occur. Judy Lira M.D. I personally interpreted the entire recording and agree with Dr. Lira's note as written. Gibran Dickens MD Date of interpretation: 04/03/2021Un[facility] CenterN-TERMINAL [id number] 20:24:03 Test Item Value Reference Range Interpretation Comments NT-proBNP (test code 218 pg/mL See_Comment H [Autom ated = [id number]) message] The system which generated this result transmitted reference range : <=125. The reference range was not used to interpret this result as normal/abnormal . SHEILA (test code = SHEILA) Biotin has been reported to cause a negative bias, interpret results relative to patient's use of biotin. Lab Interpretation Abnormal (test code = 33705-4) [facility] CenterXR CHEST 1 [id number] 13:04:48 No acute cardiopulmonary abnormality. Preliminary Report Dictated by Resident: Chente Gonzales MD., have reviewed this study and agree with theabove report.EXAM: XR CHEST 1 VW COMPARISON: 10/18/2015 radiograph HISTORY: hypoxia FINDINGS: Lines/Tubes: None. Lungs: The lungs areclear. No pleural effusion or pneumothorax isidentified. Heart/Mediastinum: The cardiomediastinal silhouette is normal in size witha globular shape. A stent is seen in the descending thoracic aorta. Bones: No acute osseous abnormality is seen. Changes of prior total rightshoulder arthroplasty. Cholecystectomy clips are present. Njmb, Radiant Results Inft User - 04/02/2021 8:05 AM CDT EXAM: XR CHEST 1 VWCOMPARISON: 10/18/2015 radiographHISTORY: hypoxia FINDINGS:Lines/Tubes: None.Lungs: The lungs are clear. No pleural effusion or pneumothorax isidentified.Heart/Mediastinum: The cardiomediastinal silhouette is normal in size witha globular shape. A stent is seen in the descending thoracic aorta.Bones: No acute osseous abnormality is seen. Changes of prior total rightshoulder arthroplasty. Cholecystectomy clips are present.IMPRESSIONNo acute cardiopulmonary abnormality.Preliminary Report Dictated by Resident: Chente Heart MD., have reviewed this study and agree with theabove report.[facility] CenterAC PANEL 20 + LACTIC [id number] 03:36:51 Test Item Value Reference Range Interpretation Comments PH (test code = 2) 7.35-7.45 L PCO2 (test code = See_Comment H [Automat ed 4352515314) message] The sy stem which generated this result transmitted reference range : 35 - 45 mmHg. The reference range was not used to interpret this result as normal/abnormal . PO2 (test code = See_Comment L [Automated 2798373330) message] The sy stem which generated this result transmitted reference range : 80 - 100 mmHg. The reference range was not used to interpret this result as normal/abnormal . HCO3 (test code = See_Comment H [Automate d 3393905087) message] The sy stem which generated this result transmitted reference range : 22 - 26 mEq/L. The reference range was not used to interpret this result as normal/abnormal . BE (test code = See_Comment [Automated 3102679283) message] The sy stem which generated this result transmitted reference range : -3.0 - 3.0 mEq/ L. The reference r kendell was not used to interpret this result as normal/abnormal . THB (test code = 14.2 g/dL 12.0-16.0 0470600251) %O2HB (test code = 89.4 % 94.0-99.0 L 3289433424) %COHB ART (test code = 4.8 % 0.0-1.5 H 8586468929) %METHB ART (test code = 0.3 % 0.4-1.5 L 6327722109) VOL%O2 ART (test code = 17.9 % 15.0-23.0 3399555501) NA (test code = 135 mmol/L 135-145 2546597538) K+ (test code = 4.3 mmol/L 3.5-5.0 2041074187) AC CA IONZ (test code = 4.60 mg/dL 4.50-5.30 3759966072) GLUCOSE (test code = 95 mg/dL 70-110 8677380003) LACTIC ACID (test code 0.78 mmol/L 0.50-2.20 = 9736182970) Lab Interpretation Abnormal (test code = 66486-0) [facility] CenterETHANOL2021-05-25 03:05:08 Test Item Value Reference Range Interpretation Comments ALCOHOL (test code = <10 mg/dL 4630510876) SHEILA (test code = SHEILA) <10 Csvkmlhb30-937 Toxic>100 Depression of PROCESS DEVELOPMENT CHEMIST>400 Fatalities Reported [facility] CenterTroponin [id number] 02:35:56 Test Item Value Reference Range Interpretation Comments TROPONIN I (test <0.012 See_Comment [Automated code = 7906514270) message] The system which generated this result transmitted reference range : <=0.034 ng/mL. The reference range was not used to interpr et this result as normal/abnormal . SHEILA (test code = Equal or Less than SHEILA) 0.034 ng/ml---Normal ?Note: Cardiac troponin begins to rise 3-4 hours after the onset of ischemia. Repeat in 4-6 hours if the sample was drawn within 3-4 hours of the onset of the symptom and found normal. Between 0.035 and 0.120 ng/mL--- Borderline. Questionable myocardial injury or necrosis ? ?Note: Serial measurement may be necessary to confirm or exclude the diagnosis of myocardial injury or necrosis; Clinical correlation (symptoms, EKGs, imaging studies, and others) required; Repeat in 4-6 hours if clinically indicated. ? Equal or Higher than 0.121 ng/mL---Abnormal. Myocardial Injury or Necrosis Likely ? Biotin has been reported to cause a negative bias, interpret results relative to patient's use of biotin. ? Lab Interpretation Normal (test code = 91138-6) [facility] CenterURINE DRUG (IMMUNOASSAY) - COMPREHENSIVE DRUG [id number] 02:32:35 Test Item Value Reference Range Interpretation Comments AMPHET (test code = Negative Negative 1651289708) GENNARO U (test code = Negative Negative 6859737100) BENZO U (test code = Negative Negative 0635098434) Cocaine Metabolite (test Negative Negative code = 4057819632) METHADONE (test code = Negative Negative 5435553389) OPIATES (test code = Presumptive Positive Negative A 4802073938) PCP (test code = Presumptive Positive Negative A 7808574057) THC (test code = Negative Negative 1620879699) SHEILA (test code = SHEILA) Urine Drug Cutoff Ranges Cocaine: ? 150 ng/mLBenzodiazepines: ? ? 200 ng/mLMethadone: ? 300 ng/mLAmphetamine: ? 1,000 ng/mLOpiates: ? 300 ng/mLCannabinoids: ?50 ng/mLPhencyclidine: ? ? ? 25 ng/mLBarbiturates: ?200 ng/mL The results are to be used only for medical (i.e., treatment) purposes. Unconfirmed screening results must not be used for non-medical purposes (e.g., employment testing, legal testing). Lab Interpretation (test Abnormal code = 86159-0) [facility] CenterCOVID-19 (ID NOW RAPID TESTING)2021-04-02 02:30:32 Test Item Value Reference Range Interpretation Comments SARS-CoV-2 Rapid ID NOW Not Detected Not Detected (test code = 87817-4) SHEILA (test code = SHEILA) ID NOW COVID-19 Assay is an isothermal nucleic acid amplification test intended for the qualitative detection of nucleic acid from SARS-CoV-2 viral RNA in nasopharyngeal ([employer]AM[employer]) specimens. It is used under Emergency Use Authorization (EUA) by FDA. The limit of detection (LOD) of the assay is 125 Genome Equivalents/mL. A positive result is indicative of the presence of SARS-CoV-2 RNA. ?Clinical correlation with patient history and other diagnostic information is necessary to determine patient infection status. A negative (Not Detected) result does not preclude SARS-CoV-2 infection. In patients with clinical symptoms and other tests that are consistent with SARS-CoV-2 infection, negative results should be treated as presumptive negative and a new specimen should be tested with alternative PCR molecular test. Invalid: Please collect a new specimen for repeat patient testing if clinically indicated. Lab Interpretation Normal (test code = 83898-1) [facility] [place] [place] Metabolic Panel (NA, K, CL, CO2, GLUCOSE, BUN, CREATININE, CA)2021-04-02 02:24:48 Test Item Value Reference Range Interpretation Comments NA (test code = 136 mmol/L 135-145 5520123987) K (test code = 4.9 mmol/L 3.5-5.0 0892356370) CL (test code = 96 mmol/L 98-108 L 8703586772) CO2 TOTAL (test code = 31 mmol/L 23-31 0160803370) AGAP (test code = 2-16 5281941673) BUN (test code = 43 mg/dL 7-23 H 8763716196) GLUCOSE (test code = 96 mg/dL 70-110 4374486472) CREATININE (test code = 0.92 mg/dL 0.50-1.04 1400542105) CALCIUM (test code = 9.4 mg/dL 8.6-10.6 5760372059) eGFR (test code = mL/min/1.73m2 3266560746) SHEILA (test code = SHEILA) Association of Glomerular Filtration Rate (GFR) and Staging of Kidney Disease* + --+ --+ ------+| GFR (mL/min/1.73 m2) ?| With Kidney Damage ?| ?Without Kidney Damage+ --------+ --------+ +| ?>90 ?| ?Stage one ?| ? Normal ?+ ---+ ---+ -------+| ?60-89 ?| ?Stage two ?| ? Decreased GFR ? + --+ --+ ------+| ?30-59 ?| ?Stage three ?| ? Stage three ? + --+ --+ ------+| ?15-29 ?| ?Stage four ? | ? Stage four ?+ ---+ ---+ -------+| ?<15 (or dialysis) ? ?| ?Stage five ? | ? Stage five ?+ ---+ ---+ -------+ *Each stage assumes the associated GFR level has been in effect for at least three months. ?Stages 1 to 5, with or without kidney disease, indicate chronic kidney disease. Notes: Determination of stages one and two (with eGFR >59mL/min/1.73 m2) requires estimation of kidney damage for at least three months as defined by structural or functional abnormalities of the kidney, manifested by either:Pathological abnormalities or Markers of kidney damage (including abnormalities in the composition of the blood or urine or abnormalities in imaging tests). Lab Interpretation Abnormal (test code = 58603-5) [facility] CenterHepatic Function Panel (ALB, T.PRO, BILI T, BU/BC, ALT, AST, ALK PHOS)2021-04-02 02:24:48 Test Item Value Reference Range Interpretation Comments TOTAL BILI (test code = 7103252281) 0.7 mg/dL 0.1-1.1 BILI UNCON (test code = 9632894668) 0.4 mg/dL 0.1-1.1 BILI CONJ (test code = 7867680318) 0.0 mg/dL 0.0-0.3 T PROTEIN (test code = 6223347813) 6.8 g/dL 6.3-8.2 ALBUMIN (test code = 7710609159) 4.4 g/dL 3.5-5.0 ALK PHOS (test code = 4932588263) 85 U/L 34-122 ALTv (test code = 1742-6) 27 U/L 5-35 AST(SGOT) (test code = 8271909744) 53 U/L 13-40 H Lab Interpretation (test code = Abnormal 44817-7) [facility] CenterCT HEAD WO [id number] 02:03:35 No acute intracranial findings. Left occipital craniectomy with underlying resection cavity in theleftcerebellum. Correlation with prior surgical history suggested. CT HEAD WO CONTRAST HISTORY: Female 55 years Dizziness, persistent/recurrent, cardiac orvascular cause suspected COMPARISON: None JENNIFER HNIQUE: Noncontrast CT images of the head with multiplanar reformats. FINDINGS: Left occipital craniectomy with cystic region in the left cerebellum likelyreflecting resection cavity. Overlying dural complications are noted. The ventricles and sulci are normal in size and configuration. Nointracranial abnormality such as hemorrhage, edema, mass-effect, midlineshift, hydrocephalus or pathologic extra axial fluid collection isappreciated. The basal cisterns are patent. No parenchymal attenuation abnormality. The menjivar-white matterdifferentiation is preserved. The calvarium and central skull base intact. Mild ethmoid air cell mucosalthickening. [facility], Radiant Results Inft User - 04/01/2021 9:[address] HEAD WO CONTRASTHISTORY: Female 55 years Dizziness, persistent/recurrent, cardiac orvascular cause suspected COMPARISON: NoneTECHNIQUE: Noncontrast CT images of the head with multiplanar reformats.FINDINGS:Left occipital craniectomy with cystic region in the left cerebellum likelyreflecting resection cavity. Overlying dural complications are noted.The ventricles and sulci are normal in size and configuration. Nointracranial abnormality such as hemorrhage, edema, mass-effect, midlineshift, hydrocephalus or pathologic extra axial fluid collection isappreciated. The basal cisterns are patent.No parenchymal attenuation abnormality. The menjivar-white matterdifferentiation is preserved.The calvarium and central skull base intact. Mild ethmoid air cell mucosalthickening.IMPRESSIONNo acute intracranial findings. 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 Correlation with prior surgical history suggested.[facility] CenterUrinalysis2021-[facility] 01:59:54 Test Item Value Reference Range Interpretation Comments APPEARANCE (test code = Clear Clear 1159513376) COLOR (test code = Yellow Yellow 3055834909) PH (test code = 4.8-8.0 4791055059) SP GRAVITY (test code = 1.003-1.030 7626070554) GLU U QUAL (test code = Normal Normal 5988008044) BLOOD (test code = Negative Negative 6837828000) KETONES (test code = Negative Negative 7401164254) PROTEIN (test code = Negative Negative 2887-8) UROBILIN (test code = Normal Normal 7480866424) BILIRUBIN (test code = 2 mg/dL Negative A 4248745512) NITRITE (test code = Negative Negative 5068295254) LEUK MERYL (test code = 250/uL Negative A 0996878108) RBC/HPF (test code = See_Comment [Autom ated message] 3008708942) The system [email or web address] generated this result transmitted ref erence range: 0 - 3 HP F. The reference range was not used to int erpret this result as normal/abnormal . WBC/HPF (test code = See_Comment H [Autom ated message] 7685891299) The system [employer] generated this result transmitted ref erence range: 0 - 5 HP F. The reference range was not used to int erpret this result as normal/abnormal . BACTERIA (test code = Few Negative A 1262052018) MUCOUS (test code = Slight Negative LPF A 3989409726) SQ EPITH (test code = HPF 5996960145) HYAL CAST (test code = See_Comment [Aut omated message] 7797495152) The system [employer] generated this result transmitted ref erence range: <=2 LPF. The reference range was not used to int erpret this result as normal/abnormal . Lab Interpretation (test Abnormal code = 18503-1) [facility] CenteraPTT2021-[facility] 01:49:53 Test Item Value Reference Range Interpretation Comments APTT Patient (test See_Comment [Automat ed code = 3173-2) message] The system which generated this result transmitted reference range : 23 - 38 Seconds . The reference range was not used to interpr et this result as normal/abnormal . SHEILA (test code = SHEILA) The [facility] patient population mean normal value for aPTT is 30 seconds. Lab Interpretation Normal (test code = 90215-0) [facility] CenterProthrombin Time (PT) / [id number] 01:47:51 Test Item Value Reference Range Interpretation Comments PROTIME PATIENT (test See_Comment [Auto mated message] code = 5964-2) The system [facility] generated this result transmitted ref erence range: 12.0 - 1 4.7 Seconds. The re ference range was not u sed to interpret this result as normal/abnor mal. INR (test code = 6301-6) Nor mal INR <1.1; Warfarin Therap eutic range 2.0 to 3. 0 or 2.5 to 3.5, dep ending upon the indica tions. Lab Interpretation (test Normal code = 58529-0) [facility] CenterCBC with [id number] 01:38:27 Test Item Value Reference Range Interpretation Comments WBC (test code = See_Comment [Automated 6690-2) message] The sy stem which generated this result transmitted reference range : 4.30 - 11.10 10*3/?L. The reference range was not used to interpret this result as normal/abnormal . RBC (test code = See_Comment [Automated 789-8) message] The sy stem which generated this result transmitted reference range : 3.93 - 5.25 10*6/?L. The reference range was not used to interpret this result as normal/abnormal . HGB (test code = 14.0 g/dL 11.6-15.0 718-7) HCT (test code = 42.5 % 35.7-45.2 4544-3) MCV (test code = 96.2 fL 80.6-95.5 H 787-2) MCH (test code = 31.7 pg 25.9-32.8 785-6) MCHC (test code = 32.9 g/dL 31.6-35.1 786-4) RDW-SD (test code = 44.2 fL 39.0-49.9 22677-2) RDW-CV (test code = 12.5 % 12.0-15.5 788-0) PLT (test code = See_Comment [Automated 777-3) message] The sy stem which generated this result transmitted reference range : 166 - 358 10*3/ ?L. The reference r kendell was not used to interpret this result as normal/abnormal . MPV (test code = 9.4 fL 9.5-12.9 L 86736-6) NRBC/100 WBC (test See_Comment [Automat ed code = 4631030531) message] The system which generated this result transmitted reference range : 0.0 - 10.0 /100 WBCs. The refer ence range was not u sed to interpret th is result as normal/abnormal . NRBC x10^3 (test code <0.01 See_Comment [Auto mated = 2465479050) message] The s ystem which generated this result transmitted reference range : 10*3/?L. The reference range was not used to interpret this result as normal/abnormal . GRAN MAT (NEUT) % 63.0 % (test code = 770-8) IMM GRAN % (test code 0.10 % = 7664876258) LYMPH % (test code = 21.2 % 736-9) MONO % (test code = 8.0 % 5905-5) EOS % (test code = 7.1 % 713-8) BASO % (test code = 0.6 % 706-2) GRAN MAT x10^3(ANC) 6.08 10*3/uL 1.88-7.09 (test code = 8008550210) IMM GRAN x10^3 (test <0.03 0.00-0.06 code = 5873766347) LYMPH x10^3 (test code 2.04 10*3/uL 1.32-3.29 = 731-0) MONO x10^3 (test code 0.77 10*3/uL 0.33-0.92 = 742-7) EOS x10^3 (test code = 0.68 10*3/uL 0.03-0.39 H 711-2) BASO x10^3 (test code 0.06 10*3/uL 0.01-0.07 = 704-7) Lab Interpretation Abnormal (test code = 16254-8) [facility] CenterSurgical pathology [id number] 23:47:47 Test Item Value Reference Range Interpretation Comments Case number (test code = [id number]) Surgical pathology See link below for report (test code = PDF Lab Report [id number]) Result status (test code This is Final Report = [id number]) for [id number] [facility]2021-02-04 19:25:07Himanshu Ludwig CRNA 12/13/2020 1:28 [address] Location: OR Performed by: MADHAVI/Zhou/MADHAVI/AA: Himanshu Ludwig CRNAAuthorized by: Baljit Muñoz MD Urgency: ElectiveDifficult Airway: No Preoxygenated with 100% O2: Yes C-spine Precautions Maintained Throughout: Yes Mask Ventilation: Not attemptedFinal Airway Type: Endotracheal airwayFinal Endotracheal Airway: ETTCuffed: Yes Technique Used: Direct laryngoscopyDevices/Methods Used in Placement: Intubating styletInsertion Site: OralBlade Type: MillerLaryngoscope Blade/Videolaryngoscope Blade Size: 2ETT Size (mm): 7.0Cuff at minimum occlusion pressure: Yes Measured from: GumsETT to Gums (cm): 22Placement Ve rified by: CO2 detection, direct visualization and equal breath sounds Laryngoscopic view: Grade I- full view of glottisRapid Sequence Induction (RSI): No Modified RSI: No Number of Attempts at Approach: [address] [place], [place] [address]Peripheral [id number] 17:53:19Baljit Muñoz MD 12/13/2020 11:54 AMPeripheral Block Patient Location: Block roomStartTime: 12/13/2020 11:38 AMEnd Time: 12/13/2020 11:48 AMReason for Block: at surgeon's request, post-op pain management, procedure for pain Performed by: anesthesiologistAnesthesiologist: Baljit Muñoz MDAuthorized by: Baljit Muñoz MD Preprocedure: patient identified, IV checked, site and side verified, risks and benefits discussed, procedure verified, surgical consent complete, patient position confirmed, monitors and equipment checked, pre-op evaluation complete, site marked and timeout performed prior to procedure Peripheral Nerve Block: Patient Position: Supine Prep: ChloraPrep Monitoring: Blood pressure monitoring, continuous pulse oximetry and heart rateBlockType: Brachial plexus and interscaleneLaterality: RightInjection Technique: Catheter insertionProcedures: ultrasound guided Ultrasound documentation: Printed/placed in chartLocal Infiltration (SeeMAR for details): LidocaineNeedle: Needle Type: Mike Needle Gauge: 19 G Needle Length: 10 cm Catheter Size: 20 G Catheter at Skin Depth: 6 cmAssessment: Injection Assessment: Visualized needle/local anesthetic surrounding nerve, intermittent aspiration during local anesthetic administration, visualized pertinent vascular structures and nerves, no symptoms of intraneural/intravenous injection and needle tip visualized at all times during injection of medication Paresthesia Pain: None Heart Rate Change: No Slow Fractionated Injection: Yes Block outcome: No apparent complications, patient comfortable and patient tolerated procedure wellTexas Health FriscoUrine [id number] 01:59:29 Test Item Value Reference Range Interpretation Comments Urine culture Mixed roseanna Specimen isolate (test <=10-3 col/cc InformationSp ecimen code = 31420-6) Source: Urin eSpecimen Site: Clean cat ch [facility] FriscoCOVID-19 qualitative [id number] 01:20:42 Test Item Value Reference Range Interpretation Comments Interpretation (test Negative results do code = 6575523) not preclude 2019-nCoV infection and should not be used as the sole basis for treatment or other patient management decisions. Negative results must be combined with clinical observations, patient history, and epidemiological information. COVID-19 qualitative Not-Detected Not-Detected RT-PCR result (test code = 11291-7) COVID-19 qualitative See link below for C ase Number: RT-PCR (test code = PDF Lab Report [id number]) [facility]iscoEC Pre/Post [id number] 01:07:29 Test Item Value Reference Range Interpretation Comments Ventricular rate (test code = 253) Atrial rate (test code = 255) SD interval (test code = 266) QRSD interval (test code = 260) QT interval (test code = 264) QTC interval (test code = 265) P axis 1 (test code = 267) QRS axis 1 (test code = 268) T wave axis (test code = 270) EKG impression (test code Normal sinus = 273) rhythm-Electronicall y Signed By Augie Turner MD ([id number]) on 12/11/2020 7:07:27 PM [facility] FriscoAF [id number] 06:13:39 Test Item Value Reference Range Interpretation Comments AFB culture No growth Specimen isolate (test after 6 weeks InformationSp ecimen code = 543-9) of Source: Joint incubation. FluidSpecimen S ite: RIGHT SHOULDER/ASPIRA TION [facility] HospitalFungus [id number] 06:15:29 Test Item Value Reference Range Interpretation Comments Fungus culture No growth Specimen isolate (test after 4 weeks InformationSp ecimen code = 1441) of Source: Joint incubation. FluidSpecimen S ite: RIGHT SHOULDER/ASPIRA TION [facility] HospitalCONSENT TO CONTACT FOR VOLUNTARY [id number] 19:43:51 Test Item Value Reference Range Interpretation Comments Consent To Contact For Voluntary Yes Research (test code = 4947) [facility]"
[2021-10-08] MEDS ORDERED: MORPHINE 4 MG/ML SYR ONE (23:50)
[2021-10-08] MEDS ORDERED: ONDANSETRON 4 MG/2 ML VIAL ONE (23:50)
[2021-10-08] MEDS ORDERED: METHYLPREDNISOLONE 125 MG INJ ONE (23:58)
[2021-10-08] MEDS ORDERED: DIPHENHYDRAMINE 50 MG/ML VIAL ONE (23:58)
--- NOTE | 2021-10-09 01:06 | EDPHYS ---
Physician Documentation [facility] Name: Betsey Martel Age: 56 yrs Sex: Female : 1965 Arrival Date: 10/08/2021 Time: 22:45 Bed 6 Private MD: ED Physician Gage Garcia HPI: 10/08 23:35 This 56 yrs old Female presents to ER via Ambulatory with complaints of Fall Injury. jr8 23:35 Onset: The symptoms/episode began/occurred acutely, today. Severity of symptoms: At jr8 their worst the symptoms were moderate, in the emergency department the symptoms are unchanged. The patient has not experienced similar symptoms in the past. The patient has not recently seen a physician. This is a 56-year-old female that presented to the emergency room after sustaining a fall down her stairs. Patient stated that she fell about 8 steps. Was accidental in origin. Denies loss of consciousness. Stated that she hit her head and low back multiple times. Currently complains of head pain and low back pain. . Historical: - Allergies: 23:00 Cymbalta; ld1 23:00 NKDA; ld1 23:00 Seroquel; ld1 - Home Meds: 23:00 carvedilol Oral [Active]; ld1 - PMHx: 23:00 Anemia; BRAIN TUMOR 1996; CHF; Chronic pain; degenerative bone disease; Depression; ld1 ETHO INTOXICATION; ETOH; GERD; Hip Pain; Hypertension; Hypothyroidism; kidney disease; osteoarthritis; Rheumatoid Arthritis; THORACIC AORTIC ANEURYSM; - Immunization history:: Adult Immunizations up to date. - Social history:: Smoking status: Patient reports the use of cigarette tobacco products, smokes one-half pack cigarettes per day. - Immunization history: Last tetanus immunization: < 5 years ago. ROS: 23:35 Eyes: Negative for injury, pain, redness, and discharge, ENT: Negative for injury, jr8 pain, and discharge, Neck: Negative for injury, pain, and swelling, Cardiovascular: Negative for chest pain, palpitations, and edema, Respiratory: Negative for shortness of breath, cough, wheezing, and pleuritic chest pain, Abdomen/GI: Negative for abdominal pain, nausea, vomiting, diarrhea, and constipation, MS/Extremity: Negative for injury and deformity. 23:35 Back: Positive for pain at rest, pain with movement, Negative for decreased range of motion, radiated pain. 23:35 Skin: Positive for abrasion(s). 23:35 Neuro: Positive for headache. Exam: 23:35 Eyes: Pupils equal round and reactive to light, extra-ocular motions intact. Lids and jr8 lashes normal. Conjunctiva and sclera are non-icteric and not injected. Cornea within normal limits. Periorbital areas with no swelling, redness, or edema. ENT: Nares patent. No nasal discharge, no septal abnormalities noted. Tympanic membranes are normal and external auditory canals are clear. Oropharynx with no redness, swelling, or masses, exudates, or evidence of obstruction, uvula midline. Mucous membranes moist. Neck: Trachea midline, no thyromegaly or masses palpated, and no cervical lymphadenopathy. Supple, full range of motion without nuchal rigidity, or vertebral point tenderness. No Meningismus. Chest/axilla: Normal chest wall appearance and motion. Nontender with no deformity. No lesions are appreciated. Cardiovascular: Regular rate and rhythm with a normal S1 and S2. No gallops, murmurs, or rubs. Normal PMI, no JVD. No pulse deficits. Respiratory: Lungs have equal breath sounds bilaterally, clear to auscultation and percussion. No rales, rhonchi or wheezes noted. No increased work of breathing, no retractions or nasal flaring. Abdomen/GI: Soft, non-tender, with normal bowel sounds. No distension or tympany. No guarding or rebound. No evidence of tenderness throughout. Skin: Warm, dry with normal turgor. Normal color with no rashes, no lesions, and no evidence of cellulitis. Neuro: Awake and alert, GCS 15, oriented to person, place, time, and situation. Cranial nerves II-XII grossly intact. Motor strength 5/5 in all extremities. Sensory grossly intact. 23:35 Head/face: Noted is hematoma, that is moderate, of the left occipital area. 23:35 Back: pain, that is moderate, of the lumbar area, ROM is painful, normal spinal alignment noted, CVA tenderness, is absent, vertebral tenderness, is appreciated at L1 and L2. 23:35 Musculoskeletal/extremity: Extremities: grossly normal except: noted in the right leg: abrasion, Over the anterior patellar region, ROM: intact in all extremities, full active range of motion, full passive range of motion, Circulation is intact in all extremities. Sensation intact. Vital Signs: 22:55 BP 159 / 90; Pulse 85; Resp 18; Temp 98.6(O); Pulse Ox 100% on R/A; Weight 62.6 kg; ld1 Height 5 ft. 6 in. (167.64 cm); Pain 10/10; 23:48 BP 155 / 88; Pulse 86; Resp 18; Pulse Ox 100% on R/A; df1 10/09 00:30 BP 133 / 74; Pulse 77; Resp 18; Pulse Ox 98% on R/A; df1 01:09 BP 136 / 69; Pulse 73; Resp 18; Pulse Ox 96% on R/A; df1 10/08 22:55 Body Mass Index 22.27 (62.60 kg, 167.64 cm) ld1 Ace Coma Score: 10/08 23:48 Eye Response: spontaneous(4). Verbal Response: oriented(5). Motor Response: obeys df1 commands(6). Total: 15. Trauma Score (Adult): 23:48 Eye Response: spontaneous(1); Verbal Response: oriented(1); Motor Response: obeys df1 commands(2); Systolic BP: > 89 mm Hg(4); Respiratory Rate: 10 to 29 per min(4); Winona Score: 15; Trauma Score: 12 MDM: 22:49 Patient medically screened. jr8 10/09 01:03 Data reviewed: vital signs, nurses notes, radiologic studies, CT scan. Data jr8 interpreted: Pulse oximetry: on room air is 98 %. Interpretation: normal. Counseling: I had a detailed discussion with the patient and/or guardian regarding: the historical points, exam findings, and any diagnostic results supporting the discharge/admit diagnosis, radiology results, the need for outpatient follow up, a family practitioner, to return to the emergency department if symptoms worsen or persist or if there are any questions or concerns that arise at home. Response to treatment: the patient's symptoms have mildly improved after treatment. ED course: Intracranial findings noted. Patient does have a left L2 transverse fracture. No vertebral body fracture noted. No other acute spinal pathology noted on imaging. Patient needs to continue pain management at home with her already prescribed meds and needs to follow-up with her orthopedic. If she were to have any other acute problems or change in condition to come back for further evaluation. Patient good with this at this time.. 10/08 23:08 Order name: CT Head C Spine jr8 10/08 23:08 Order name: CT Lumbar Spine Wo Con jr8 Administered Medications: 00:03 Drug: morphine 4 mg Route: IVP; Site: left forearm; df1 00:04 Follow up: Response: Adverse reaction, Physician notified df1 00:03 Drug: Zofran (Ondansetron) 4 mg Route: IVP; Site: left forearm; df1 00:04 Follow up: Response: Adverse reaction, Physician notified df1 00:03 Drug: SOLU-Medrol (methylPrednisoLONE) 125 mg Route: IVP; Site: left forearm; df1 00:03 Drug: Benadryl (diphenhydrAMINE) 25 mg Route: IVP; Site: left forearm; df1 Disposition: 01:25 Co-signature as Attending Physician, Gage Garcia MD I agree with the assessment and rn plan of care. Attestation: The patient's history, exam findings, diagnostics, and a summary of any interventions or procedures was reviewed in detail with Neeraj FABIAN. Disposition Summary: 10/09/21 01:05 Discharge Ordered Location: Home jr8 Problem: new jr8 Symptoms: have improved jr8 Condition: Stable jr8 Diagnosis - Left L 2 Transverse Process Fracture jr8 - Superficial injury of scalp jr8 - Acute pain due to trauma jr8 Followup: jr8 - With: Private Physician - When: 2 - 3 days - Reason: Recheck today's complaints, Continuance of care, Re-evaluation by your physician Discharge Instructions: - Discharge Summary Sheet jr8 - Head Injury, Adult jr8 - Muscle Pain, Adult jr8 - Pain Medicine Instructions jr8 - Transverse Process Fracture jr8 Forms: - Medication Reconciliation Form jr8 - Thank You Letter jr8 - Antibiotic Education jr8 - Prescription Opioid Use jr8 Signatures: Dispatcher [employer] EDGage Felix MD MD rn Roszak, Josh, PA PA jr8 Gabbie Pal RN RN don1 Jessa Cardona df1
--- NOTE | 2021-10-09 01:06 | ER ---
Nurse's Notes [facility] Name: Betsey Martel Age: 56 yrs Sex: Female : 1965 Arrival Date: 10/08/2021 Time: 22:45 Bed 6 Private MD: Diagnosis: Left L 2 Transverse Process Fracture;Superficial injury of scalp;Acute pain due to trauma Presentation: 10/08 22:55 Chief complaint: Patient states: I fell down 8-10 stairs around 2200 this evening, I ld1 hit my head on concrete. C/O lower left side of back, right knee, right ankle, right shoulder and head. Coronavirus screen: At this time, the client does not indicate any symptoms associated with coronavirus-19. Ebola Screen: No symptoms or risks identified at this time. Initial Sepsis Screen: Does the patient meet any 2 criteria? No. Patient's initial sepsis screen is negative. Does the patient have a suspected source of infection? No. Patient's initial sepsis screen is negative. Risk Assessment: Do you want to hurt yourself or someone else? Patient reports no desire to harm self or others. Onset of symptoms was October 08, 2021. 22:55 Method Of Arrival: Ambulatory ld1 22:55 Acuity: KAREN 3 ld1 23:00 Care prior to arrival: None. ld1 10/09 00:04 Note 4mg Morphine and 4mg Zofran given IV. Red/itching noted to left FA at site of IV. df1 Provider notified. Orders received. 00:06 Mechanism of Injury: Fall Fell head over heels down 8 stairs. Hit head, No LOC. df1 Triage Assessment: 10/08 23:00 General: Appears in no apparent distress. uncomfortable, Behavior is cooperative, ld1 appropriate for age, crying, fussy. Pain: Complains of pain in face, left arm and left leg Pain does not radiate. Pain currently is 10 out of 10 on a pain scale. Quality of pain is described as throbbing. EENT: No signs and/or symptoms were reported regarding the EENT system. Neuro: Level of Consciousness is awake, alert, obeys commands, Oriented to person, place, time, situation. Cardiovascular: Capillary refill < 3 seconds Patient's skin is warm and dry. Respiratory: Airway is patent Respiratory effort is even, unlabored, Respiratory pattern is regular, symmetrical. GI: Abdomen is flat, non-distended. : No signs and/or symptoms were reported regarding the genitourinary system. Derm: No signs and/or symptoms reported regarding the dermatologic system. Musculoskeletal: No signs and/or symptoms reported regarding the musculoskeletal system. Historical: - Allergies: 23:00 Cymbalta; ld1 23:00 NKDA; ld1 23:00 Seroquel; ld1 - Home Meds: 23:00 carvedilol Oral [Active]; ld1 - PMHx: 23:00 Anemia; BRAIN TUMOR 1996; CHF; Chronic pain; degenerative bone disease; Depression; ld1 ETHO INTOXICATION; ETOH; GERD; Hip Pain; Hypertension; Hypothyroidism; kidney disease; osteoarthritis; Rheumatoid Arthritis; THORACIC AORTIC ANEURYSM; - Immunization history:: Adult Immunizations up to date. - Social history:: Smoking status: Patient reports the use of cigarette tobacco products, smokes one-half pack cigarettes per day. - Immunization history: Last tetanus immunization: < 5 years ago. Screenin:49 Abuse screen: Denies threats or abuse. Tuberculosis screening: No symptoms or risk df1 factors identified. 10/09 00:06 Nutritional screening: No deficits noted. Fall Risk None identified. df1 Primary Survey: 10/08 23:48 NO uncontrolled hemorrhage observed. Breathing/Chest: Respiratory pattern: regular, df1 Respiratory effort: spontaneous, unlabored, Breath sounds: clear, bilaterally. Circulation: Cardiac rhythm: sinus rhythm. Disability Alert. Exposure/Environment: All clothing and personal items were removed. There is no evidence of uncontrolled external bleeding. No obvious injuries are noted at this time. A warming method has been applied: A warm blanket has been provided to the patient. 10/09 00:05 Reassessment Breathing/Chest Respiratory pattern Regular Respiratory effort Spontaneous df1 Unlabored Breath sounds Clear. Assessment: 00:07 General: Appears uncomfortable, Behavior is calm, cooperative. Pain: Complains of pain df1 in scalp, back, right arm, left arm, right leg and left leg. 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 Speech is normal. Neuro: Golf ball size lump noted to back of head. No open skin/bleeding.. Cardiovascular: No deficits noted. Respiratory: No deficits noted. GI: No deficits noted. : No deficits noted. EENT: No deficits noted. Derm: scattered abrasions noted to bilateral hands and arms. Vital Signs: 10/08 22:55 BP 159 / 90; Pulse 85; Resp 18; Temp 98.6(O); Pulse Ox 100% on R/A; Weight 62.6 kg; ld1 Height 5 ft. 6 in. (167.64 cm); Pain 10/10; 23:48 BP 155 / 88; Pulse 86; Resp 18; Pulse Ox 100% on R/A; df1 10/09 00:30 BP 133 / 74; Pulse 77; Resp 18; Pulse Ox 98% on R/A; df1 01:09 BP 136 / 69; Pulse 73; Resp 18; Pulse Ox 96% on R/A; df1 10/08 22:55 Body Mass Index 22.27 (62.60 kg, 167.64 cm) ld1 Dublin Coma Score: 10/08 23:48 Eye Response: spontaneous(4). Verbal Response: oriented(5). Motor Response: obeys df1 commands(6). Total: 15. Trauma Score (Adult): 23:48 Eye Response: spontaneous(1); Verbal Response: oriented(1); Motor Response: obeys df1 commands(2); Systolic BP: > 89 mm Hg(4); Respiratory Rate: 10 to 29 per min(4); Dublin Score: 15; Trauma Score: 12 ED Course: 22:45 Patient arrived in ED. wm 22:46 Neeraj Almaguer PA is PHCP. jr8 22:46 Gage Garcia MD is Attending Physician. jr8 22:58 Triage completed. ld1 22:59 Jessa Cardona is Primary Nurse. df1 23:00 Arm band placed on right wrist. ld1 23:07 Primary Nurse role handed off by Jessa Cardona tw5 23:07 Shira Centeno is Primary Nurse. tw5 23:49 Inserted saline lock: 24 gauge in left forearm, using aseptic technique. ds4 10/09 00:04 CT Lumbar Spine Wo Con Sent. df1 00:04 CT Head C Spine Sent. df1 00:05 No provider procedures requiring assistance completed. df1 00:06 Patient maintains SpO2 saturation greater than 95% on room air. Thermoregulation: warm df1 blanket given to patient. 00:07 Patient has correct armband on for positive identification. Placed in gown. Bed in low df1 position. Call light in reach. Side rails up X 1. cardiac monitor on. Pulse ox on. NIBP on. 00:23 CT Head C Spine In Process Unspecified. EDMS 00:23 CT Lumbar Spine Wo Con In Process Unspecified. EDMS 01:21 IV discontinued, intact, bleeding controlled, No redness/swelling at site. Pressure df1 dressing applied. Administered Medications: 00:03 Drug: morphine 4 mg Route: IVP; Site: left forearm; df1 00:04 Follow up: Response: Adverse reaction, Physician notified df1 00:03 Drug: Zofran (Ondansetron) 4 mg Route: IVP; Site: left forearm; df1 00:04 Follow up: Response: Adverse reaction, Physician notified df1 00:03 Drug: SOLU-Medrol (methylPrednisoLONE) 125 mg Route: IVP; Site: left forearm; df1 00:03 Drug: Benadryl (diphenhydrAMINE) 25 mg Route: IVP; Site: left forearm; df1 Intake: 00:07 PO: 0ml; Total: 0ml. df1 Output: 00:07 Urine: 0ml; Total: 0ml. df1 Outcome: 01:05 Discharge ordered by . apttie 01:21 Discharged to home ambulatory. df1 01:21 Condition: good 01:21 Discharge instructions given to patient, Instructed on discharge instructions, follow up and referral plans. Demonstrated understanding of instructions, follow-up care. 01:21 Patient's length of stay was not longer than 2 hours. df1 01:22 Patient left the ED. df1 Signatures: Dispatcher [employer] EDMS Neeraj Almaguer PA PA jr8 Salas Breen ds4 Gabbie Pla RN RN don1 Lali Huang Dawn df1 Shira Centeno tw5
[2021-10-09 01:40] VITALS: TEMP 98.6
[2021-10-09 01:56] VITALS: BP 136/69; O2SAT 96
--- NOTE | 2021-10-09 18:25 | RAD REPORT ---
EXAM DESCRIPTION: CT - Head C Spine Mpr Wo Con - 10/09/2021 6:11 am CLINICAL HISTORY: PAIN COMPARISON: None Available. TECHNIQUE: Multiple helical axial tomographic images were obtained of the head, cervical spine, and lumbar spine without intravenous contrast. This exam was performed according to our departmental dose -optimization program, which includes automated exposure control, adjustment of the mA and/or kV acco rding to patient size and/or use of iterative reconstruction technique. FINDINGS: Head: There is prominence of the extra axial space near the left cerebellum with left cerebellar volume los s. There is no acute intracranial hemorrhage. No mass. No midline shift. No ventriculomegaly. Alcocer-wh ite matter differentiation is maintained. Paranasal sinuses are clear. Mastoid air cells and middle ear spaces are clear. Orbits and orbital co ntents are unremarkable. Left occipital craniotomy changes noted. There is an area of left posterior scalp swelling. Cervical spine: No evidence of an acute fracture of the cervical spine. Vertebral body heights appear maintained. The re is disc space narrowing and osteophyte formation at C5-C6. Central canal is grossly patent. Chronic appearing small defect of the posterior arch of C1 noted. Right shoulder arthroplasty changes are present. Surrounding soft tissues are unremarkable. Lumbar spine: There is an acute fracture of the left transverse process of L2 without significant displacement. Nicolette tebral body heights appear maintained. No subluxation. Vacuum disc phenomenon and osteophyte formation at L3-L4, L4-5, and L5-S1 noted. Chronic appearing mi ld deformity of the right sacrum noted. Cholecystectomy changes are present. There is mild prominence of the common bile duct which is nonspe cific in the setting of prior cholecystectomy. IMPRESSION: 1. No acute intracranial process. 2. No evidence of an acute fracture of the cervical spine. 3. Acute fracture of the left transverse process of L2. Electronically signed by: Marlo Banegas MD 10/09/2021 12:51 AM MANAGER EMERGENCY Due to temporary technical issues with the PACS/Fluency reporting system, reports are being signed by the in house radiologists without review as a courtesy to insure prompt reporting. The interpreting radiologist is fully responsible for the content of the report.
== END 2021-10-09 01:22 | disposition home or self-care (01) ==
LOC: ER 22:42
DX: S32.029A Unspecified fracture of second lumbar vertebra, initial encounter for closed fracture (principal); S09.90XA Unspecified injury of head, initial encounter; W10.9XXA Fall (on) (from) unspecified stairs and steps, initial encounter; Y92.009 Unspecified place in unspecified non-institutional (private) residence as the place of occurrence of the external cause; F17.210 Nicotine dependence, cigarettes, uncomplicated; E03.9 Hypothyroidism, unspecified; I13.0 Hypertensive heart and chronic kidney disease with heart failure and stage 1 through stage 4 chronic kidney disease, or unspecified chronic kidney disease; N18.9 Chronic kidney disease, unspecified; I50.9 Heart failure, unspecified
CPT/HCPCS: 72131; 70450; 72125; 96375; 96374; 99285; J1200; J2930; J2405

== ENCOUNTER 2021-11-14 07:05 | Emergency (ER) | payer OTHER ==
--- OUTSIDE RECORDS SUMMARY | 2021-11-14 07:14 | XMS REPORT | Continuity of Care Document ---
:1965 Author Organization [facility] t Address [address] [place] [address] Care Team Providers Name Role Phone Owens, E Primary Care Physician LINDA Attending Clinician Unavailable Only, Db Test Attending Clinician Unavailable Kyle ALEXANDRA Attending Clinician KYLE Attending Clinician Unavailable Pob, Lab Main Attending Clinician Unavailable Nick TAYLOR S Attending Clinician Liza ROMERO Attending Clinician Unavailable Doctor Unassigned, Name Attending Clinician Unavailable SAGRARIO Attending Clinician Unavailable Kimberly Salazar MD Attending Clinician Tl FABIAN, October Attending Clinician Gwendolyn TAYLOR Attending Clinician Cheko Gilliam MD Attending Clinician CHEKO GILLIAM Attending Clinician Unavailable CHEKO GILLIAM Attending Clinician Unavailable TROY Attending Clinician Unavailable Obed BENJAMIN Attending Clinician Unavailable Haider TAYLOR Attending Clinician Petra TAYLOR, [place] Attending Clinician Claribel Thomson MD Attending Clinician Krish BENJAMIN Attending Clinician Unavailable SPENCER SHANNON Attending Clinician Unavailable Spencer Shannon DO Attending Clinician Abel CRUM Attending Clinician Unavailable Ramon FABIAN Attending Clinician Cameron BENJAMIN Attending Clinician Unavailable Richmond Muñoz MD Attending Clinician Herrera Li APRN Attending Clinician HERMAN SUAREZ Attending Clinician Unavailable KAMRYN BOLES Attending Clinician Unavailable Lab, Fam Pob I Attending Clinician Unavailable Omyolis WEAVING TEACHER Attending Clinician Ebrahim WEAVING TEACHER Attending Clinician SRINIVASAN Attending Clinician Unavailable Jaime MAXWELL Attending Clinician JAIME Attending Clinician Unavailable TERE Attending Clinician Unavailable LUIS Attending Clinician Unavailable DIANA Attending Clinician Unavailable Emily BENJAMIN Attending Clinician Unavailable Stew Lambert MDh Admitting Clinician CHARLES Admitting Clinician Unavailable RA CRESPO Admitting Clinician Unavailable KALE ONOFRE Admitting Clinician Unavailable Payers Payer Name Policy Type Policy Number Effective Date Expiration Date S ource MEDICAID OF [place] [id number] 2006 00:00:00 [facility] DUAL [id number] 2021 COMP HMO D SNP 00:00:00 [facility] WELLMED [id number] 2020 2024 00:00:00 00:00:00 Problems Condition Condition [...] Screening Disease Active Uni vers for for 08-04 [place]y of osteoporos [place]os [place] [facility] Flu Flu Disease Active Univers vaccine vaccine 08-04 ity of need need 00:00: [place] [facility] Postnasal Postnasal Disease Active Uni vers drip drip 08-04 ity of 00:00: [place] [facility] Pure Pure Disease Active Univers [...] 2-26 ity of nodules nodules 00:00: [place] [facility] Right Right Disease Active Univers thyroid thyroid 2-26 ity of nodule nodule 00:00: [place] 00 Medical Branch HLD HLD Disease Active Univers (hyperlipi (hyperlipi 2-26 it y of demia) demia) 00:00: [place] 00 Medical Branch Hypothyroi Hypothyroi Disease Active U nivers dism dism 2-24 ity of 00:00: [place] [facility] 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 ICD10 Diagnosis Term Crown Buffer Utility Essential Essential Disease Active Uni vers hypertensi hypertensi -19 it y of on, benign on, benign 00:00: [place] 00 [facility] [place] OTHER OTHER Disease Active Overview: Univer s DIAGNOSIS DIAGNOSIS 11-27 Formattin i ty of - PLEASE - [...] ity of Fumarate adverse 00:00: [place] reaction Medical s Branch Bupropio Propensi Active Swelling Univ ers n Hcl ty to 2-24 ity of adverse 00:00: [place] reaction Medical s Branch DULOXETI DRUG Active Swelling Univer s NE INGREDI 2-24 ity of 00:00: [place] 00 [facility] QUETIAPI DRUG Active Swelling Univer s NE INGREDI 2-24 ity of FUMARATE 00:00: [address] BUPROPIO DRUG Active Swelling Univer s N HCL INGREDI 224 ity of 00:00: [address] Social History Social Habit Start Date Stop Date Quantity Comments Source Exposure to Not sure University of SARS-CoV-2 (event) [facility] History of tobacco Cigarette Smoker University of use [facility] History SDOH University o f Alcohol Frequency [facility] edical Branch History [facility] University o f Alcohol Std Drinks [facility] History [facility] o f Alcohol Binge [place] [facility] al [facility] Cigarettes smoked 2020-12-14 2020-12-[address] current (pack per 00:00:00 00:00:00 Hospita l day) - Reported Cigarette 2020-12-14 2020-12-14 [facility] pack-[facility] 00:[facility]00 00:00:00 Hospital Tobacco use and 2020-12-14 2020-12-14 Never used [facility] exposure 00:00:00 00:00:00 Hospital Alcohol intake 2020-12-14 2020-12-14 0 /d [facility] 00:00:00 00:00:00 Hospital Alcohol Comment 2015-12-25 2015-12-25 Social Drinker Unive rsity of 00:00:00 00:00:00 [facility] Sex Ass[birth year] At [birth year] [facility] 00:00:00 00:00:00 Hospital Smoking Status Start Date Stop Date Source Tobacco [facility] Current every day smoker 2021-05-31 00:00:00 Uni versity of [facility] Light tobacco smoker 2020-12-14 00:00:[address] [...] tablet 25 nightly. l hydromorPHO 2020-11 Yes [id number] 4mg Q8H Take 4 mg [facility] NE [...] every l morning. clonAZEPAM 2020-11 Yes 1mg [id number] Take 1 mg Methodi (KlonoPIN) 0-04 [id number] by mouth 3 [address] 1 MG tablet [...] 25 l coated tablet NON 2020-11 Yes [id number] Methodi FORMULARY 0-[address] 13:44: --- all, 1 Hospita 25 tab in AM l valproic 2020-11 Yes 250mg Q.5D Take 250 Meth geovani acid 0-[address] (Depakene) 13:44: mouth 2 Hosp jah 250 mg 25 (two) l capsule times a day. furosemide Yes 20mg Take 20 mg U nivers 20 mg 5-26 by mouth ity of tablet 22:50: every [place] morning Medical and Branch evening. pantoprazol Yes [...] ity of 50 mg 22:50: at [place] [facility] 01 bedtime. Medical Branch rOPINIRole Yes 2mg Take 2 mg Un christie (REQUIP) 2 5-26 by mouth ity o f mg tablet 22:50: at [place] bedtime. Medical Branch tiZANidine Yes 2mg Take [...] 400 5-26 mouth. ity of mg 22:50: magnesium Medical Tab Branch biotin 1 mg Yes Take by Un christie Cap 5-26 mouth. ity of 22:50: Medical Branch furosemide Yes 20mg Take 20 mg U nivers 20 mg 5-26 by mouth ity of tablet 22:50: every morning Medical and Branch evening. pantoprazol Yes 40mg Take 40 mg Univers e 5-26 by mouth ity of (PROTONIX) 22:50: daily. [place] 40 mg EC Medical tablet Branch citalopram Yes 20mg Take 20 mg U nivers (CELEXA) 20 5-26 by mouth ity of mg tablet 22:50: daily. Medical Branch traZODONE Yes 50mg Take 50 mg Un christie (DESYREL) 5-26 by mouth ity of 50 mg 22:50: at [place] [facility] 01 bedtime. Medical Branch rOPINIRole Yes 2mg Take 2 mg Un christie (REQUIP) 2 5-26 by mouth ity o f mg tablet 22:50: at [place] 01 bedtime. Medical Branch tiZANidine Yes 2mg Take [...] 400 5-26 mouth. ity of mg 22:50: magnesium Medical Tab Branch biotin 1 mg Yes Take by Un christie Cap 5-26 mouth. ity of 22:50: Medical Branch furosemide Yes 20mg Take 20 mg U nivers 20 mg 5-26 by mouth ity of tablet 22:50: every morning Medical and Branch evening. pantoprazol Yes 40mg Take 40 mg Univers e 5-26 by mouth ity of (PROTONIX) 22:50: daily. [place] 40 mg EC Medical tablet Branch citalopram Yes 20mg Take 20 mg U nivers (CELEXA) 20 5-26 by mouth ity of mg tablet 22:50: daily. Medical Branch traZODONE Yes 50mg Take 50 mg Un christie (DESYREL) 5-26 by mouth ity of 50 mg 22:50: at [place] [facility] 01 bedtime. Medical Branch rOPINIRole Yes 2mg Take 2 mg Un christie (REQUIP) 2 5-26 by mouth ity o f mg tablet 22:50: at [place] 01 bedtime. Medical Branch tiZANidine Yes 2mg Take [...] by mouth ity of (PROTONIX) 22:50: daily. [place] 40 mg EC Medical tablet Branch citalopram Yes 20mg Take 20 mg U nivers (CELEXA) 20 5-26 by mouth ity of mg tablet 22:50: daily. Medical Branch traZODONE Yes 50mg Take 50 mg Un christie (DESYREL) 5-26 by mouth ity of 50 mg 22:50: at [place] tablet 01 bedtime. Medical Branch rOPINIRole Yes 2mg Take 2 mg Un christie (REQUIP) 2 5-26 by mouth ity o f mg tablet 22:50: at [place] 01 bedtime. Medical Branch tiZANidine Yes 2mg Take [...] oxide 400 5- mouth. ity of mg 22:50: [place] magnesium Medical Tab Branch biotin 1 mg Yes Take by Un christie Cap 5- mouth. ity of 22:50: Medical Branch furosemide Yes 20mg Take 20 mg U nivers 20 mg 5-26 by mouth ity of tablet 22:50: every morning Medical and Branch evening. pantoprazol Yes 40mg Take 40 mg Univers e 5-26 by mouth ity of (PROTONIX) 22:50: daily. [place] 40 mg EC Medical tablet Branch citalopram Yes 20mg Take 20 mg U nivers (CELEXA) 20 -26 by mouth ity of mg tablet 22:50: daily. Medical Branch traZODONE Yes 50mg Take 50 mg Un christie (DESYREL) 5-26 by mouth ity of 50 mg 22:50: at [place] tablet 01 bedtime. Medical Branch rOPINIRole Yes 2mg Take 2 mg Un chrsitie (REQUIP) 2 -26 by mouth ity o f mg tablet 22:50: at [place] 01 bedtime. Medical Branch tiZANidine Yes 2mg Take [...] oxide 400 5- mouth. ity of mg 22:50: [place] magnesium Medical Tab Branch biotin 1 mg Yes Take by Un christie Cap 5- mouth. ity of 22:50: Medical Branch furosemide Yes 20mg Take 20 mg U nivers 20 mg 5-26 by mouth ity of tablet 22:50: every morning Medical and Branch evening. pantoprazol Yes 40mg Take 40 mg Univers e 5-26 by mouth ity of (PROTONIX) 22:50: daily. [place] 40 mg EC Medical tablet Branch citalopram Yes 20mg Take 20 mg U nivers (CELEXA) 20 -26 by mouth ity of mg tablet 22:50: daily. Medical Branch traZODONE Yes 50mg Take 50 mg Un christie (DESYREL) 5-26 by mouth ity of 50 mg 22:50: at [place] tablet 01 bedtime. Medical Branch rOPINIRole Yes 2mg Take 2 mg Un christie (REQUIP) 2 -26 by mouth ity o f mg tablet 22:50: at [place] 01 bedtime. Medical Branch tiZANidine Yes 2mg Take [...] oxide 400 5- mouth. ity of mg 22:50: [place] magnesium Medical Tab Branch biotin 1 mg Yes Take by Un christie Cap - mouth. ity of 22:50: Medical Branch furosemide Yes 20mg Take 20 mg U nivers 20 mg 5-26 by mouth ity of tablet 17:50: every morning Medical and Branch evening. pantoprazol Yes 40mg Take 40 mg Univers e 5- by mouth ity of (PROTONIX) 17:50: daily. [place] 40 mg EC Medical tablet Branch citalopram Yes 20mg Take 20 mg U nivers (CELEXA) 20 -26 by mouth ity of mg tablet 17:50: daily. Medical Branch traZODONE Yes 50mg Take 50 mg Un christie (DESYREL) 5-26 by mouth ity of 50 mg 17:50: at [place] tablet 01 bedtime. Medical Branch rOPINIRole Yes 2mg Take 2 mg Un christie (REQUIP) 2 -26 by mouth ity o f mg tablet 17:50: at [place] 01 bedtime. Medical Branch tiZANidine Yes 2mg Take 2 mg Un christie (ZANAFLEX) -26 by mouth 2 ity of 2 mg 17:50: (two) [place] capsule 01 times Medical daily as Branch needed for Muscle Spasms. DOCUSATE Yes 1{tbl} Take 1 Tab U nivers CALCIUM 5-26 by mouth ity of (STOOL 17:50: as needed [place] SOFTENER for Medical ORAL) Constipati Branch on. aspirin 81 Yes 81mg Take 81 mg U nivers mg EC -26 by mouth ity of tablet 17:50: daily. Medical Branch acetaminoph Yes Take by Un christie en -26 mouth ity of (TYLENOL) 17:50: every 6 [place] 325 mg 01 (six) Medical tablet hours as Branch needed for Pain (scale 1-3). amLODIPine Yes 5mg Take 5 mg Un christie 5 mg tablet 5-26 by mouth ity of 17:50: daily. Medical Branch magnesium Yes Take by Univ ers oxide 400 5- mouth. ity of mg 17:50: [place] magnesium Medical Tab Branch biotin 1 mg Yes Take by Un christie Cap - mouth. ity of 17:50: Medical Branch furosemide Yes 20mg Take 20 mg U nivers 20 mg 5-26 by mouth ity of tablet 17:50: every morning Medical and Branch evening. pantoprazol Yes 40mg Take 40 mg Univers e 5- by mouth ity of (PROTONIX) 17:50: daily. [place] 40 mg EC Medical tablet Branch citalopram Yes 20mg Take 20 mg U nivers (CELEXA) 20 -26 by mouth ity of mg tablet 17:50: daily. Medical Branch traZODONE Yes 50mg Take 50 mg Un christie (DESYREL) 5-26 by mouth ity of 50 mg 17:50: at [place] tablet 01 bedtime. Medical Branch rOPINIRole Yes 2mg Take 2 mg Un christie (REQUIP) 2 -26 by mouth ity o f mg tablet 17:50: at [place] 01 bedtime. Medical Branch tiZANidine Yes 2mg Take 2 mg Un christie (ZANAFLEX) -26 by mouth 2 ity of 2 mg 17:50: (two) [place] capsule 01 times Medical daily as Branch needed for Muscle Spasms. DOCUSATE Yes 1{tbl} Take 1 Tab U nivers CALCIUM 5-26 by mouth ity of (STOOL 17:50: as needed [place] SOFTENER for Medical ORAL) Constipati Branch on. aspirin 81 Yes 81mg Take 81 mg U nivers mg EC -26 by mouth ity of tablet 17:50: daily. Medical Branch acetaminoph Yes Take by Un christie en -26 mouth ity of (TYLENOL) 17:50: every 6 [place] 325 mg 01 (six) Medical tablet hours as Branch needed for Pain (scale 1-3). amLODIPine Yes 5mg Take 5 mg Un christie 5 mg tablet 5-26 by mouth ity of 17:50: daily. Medical Branch magnesium Yes Take by Univ ers oxide 400 5- mouth. ity of mg 17:50: [place] magnesium Medical Tab Branch biotin 1 mg Yes Take by Un christie Cap - mouth. ity of 17:50: Medical Branch furosemide Yes 20mg Take 20 mg U nivers 20 mg 5-26 by mouth ity of tablet 17:50: every morning Medical and Branch evening. pantoprazol Yes 40mg Take 40 mg Univers e 5- by mouth ity of (PROTONIX) 17:50: daily. [place] 40 mg EC Medical tablet Branch citalopram Yes 20mg Take 20 mg U nivers (CELEXA) 20 -26 by mouth ity of mg tablet 17:50: daily. Medical Branch traZODONE Yes 50mg Take 50 mg Un christie (DESYREL) 5-26 by mouth ity of 50 mg 17:50: at [place] tablet 01 bedtime. Medical Branch rOPINIRole Yes 2mg Take 2 mg Un christie (REQUIP) 2 -26 by mouth ity o f mg tablet 17:50: at [place] 01 bedtime. Medical Branch tiZANidine Yes 2mg Take 2 mg Un christie (ZANAFLEX) -26 by mouth 2 ity of 2 mg 17:50: (two) [place] capsule 01 times Medical daily as Branch needed for Muscle Spasms. DOCUSATE Yes 1{tbl} Take 1 Tab U nivers CALCIUM 5-26 by mouth ity of (STOOL 17:50: as needed [place] SOFTENER for Medical ORAL) Constipati Branch on. aspirin 81 Yes 81mg Take 81 mg U nivers mg EC -26 by mouth ity of tablet 17:50: daily. Medical Branch acetaminoph Yes Take by Un christie en 5-26 mouth ity of (TYLENOL) 17:50: every 6 [place] 325 mg 01 (six) Medical tablet hours as Branch needed for Pain (scale 1-3). amLODIPine Yes 5mg Take 5 mg Un christie 5 mg tablet 04-03 by mouth ity of 17:50: daily. [place] [address] Medical Branch magnesium Yes Take by [facility] ers oxide 400 04-03 mouth. ity of mg 17:50: [place] magnesium Medical Tab Branch biotin 1 mg Yes Take by Un christie Cap 04-03 mouth. ity of 17:50: [place] [address] Medical Branch HYDROmorpho 2020- No 8mg Take 8 mg Univers ne 04-03 by mouth ity of (DILAUDID) 17:02: 00:00 every 6 [place] as 8 mg tablet 51 :00 (six) Medical hours as Branch needed for Pain. atropine Yes .5mg 0.5 mg, IV Uni vers injection 04-03 Push, PRN ity o f 0.5 mg 05:33: - SEE [place] [address] INSTRUCTIO Medical NS, Branch Starting Thu04/03/21 at 0033, Until Discontinu ed, Routine, Symptomati c Bradycardi a dextrometho Yes 10mL 10 mL, [facility] ers rphan-guaif 04-03 Oral, ity of enesin 03:58: Q6HPRN, [place] (ROBITUSSIN 20 Starting Medi dyan DM) 10-100 [...] at 2000, Until Discontinu ed, Routine HYDROmorpho 2021-0 Yes 2745 4mg Take 0.5 [...] for Pain. Indication s: chronic pain enoxaparin 2020-0 Yes 40mg 40 mg, Unive rs (LOVENOX) 5-25 Subcutaneo ity of injection 22:00: [place], DAILY, [place] 40 mg 00 First dose Medical on [facility] 04/02/21 at 1700, Until Discontinu ed, Routine atorvastati 0 Yes 20mg 20 mg, Univ ers n (LIPITOR) 5-25 Oral, QPM, it y of tablet 20 22:00: First dose [place] mg 00 on [facility] 04/02/21 at Branch 1700, Until Discontinu ed, Routine magnesium 0 2020- No 296mL 296 mL, Uni vers citrate 5-25 05-25 Oral, ity of solution 17:15: 21:48 ONCE, 1 [place] 296 mL 00 :00 dose, [facility] 04/02/21 at Branch 1215, Routine pantoprazol Yes 40mg 40 mg, Univ ers e 5-25 Oral, ity of (PROTONIX) 14:00: DAILY, [place] EC tablet 00 First dose Medi dyan 40 mg on [facility] 04/02/21 at 0900, Until Discontinu ed, Routine aspirin EC Yes 81mg 81 mg, Unive rs tablet 81 5-25 Oral, ity of mg 14:00: DAILY, [place] 00 First dose Medical on [facility] 04/02/21 at 0900, Until Discontinu ed, Routine sennosides- 0 Yes 2{tbl} 2 tablet, Univers docusate 5-25 Oral, BID, ity o f sodium 13:00: First dose [place] (SENOKOT-S) 00 on [facility] Medica l 8.6-50 mg 04/02/21 at Bran ch per tablet 0800, 2 tablet Until Discontinu ed, Routine polyethylen 0 Yes 17g 17 g, Unive rs e glycol 5-25 Oral, BID, ity o f 3350 powder 13:00: First dose [place] 17 g 00 on [facility] 04/02/21 at Branch 0800, Until Discontinu ed, Routine ipratropium 0 Yes 3mL 3 mL, Unive rs -albuteroL 5-25 Inhalation ity of (DUONEB) 13:00: , QID, [place] 0.5 mg-3 00 First dose Medic al mg(2.5 mg on [facility] base)/3 mL 04/02/21 at nebulizer 0800, solution 3 Until mL Discontinu ed, Routine levothyroxi Yes 25ug 25 mcg, Uni vers ne 5-25 Oral, ity of (SYNTHROID) 11:00: QAM-0600, [place] tablet 25 00 First dose Medi dyan mcg on Thu Branch 04/02/21 at 0600, Until Discontinu ed, Routine lactated 2020- No 1000mL at 200 Univ ers ringers IV 5-25 05-25 mL/hr, ity of infusion 08:00: 07:12 1,000 mL, [place] as 1,000 mL 00 :00 Intravenou Medic al s, ONCE, 1 Branch dose, [facility] 04/02/21 at 0300, Routine ipratropium Yes 3mL 3 mL, Unive rs -albuteroL 5-25 Inhalation ity of (DUONEB) 07:37: , Q6HPRN, [place] 0.5 mg-3 55 Starting Medical mg(2.5 mg Thu base)/3 mL 04/02/21 at nebulizer 0237, solution 3 Until mL Discontinu ed, Routine, Wheezing, Shortness of Breath naloxone Yes .2mg 0.2 mg, Univer s (NARCAN) 5-25 Slow IV ity of injection 06:53: Push, [place] 0.2 mg 33 SEE-INSTRU Medical CTIONS, Branch Starting Thu04/02/21 at 0153, Until Discontinu ed, Routine metoprolol [...] by mouth ity of 06:52: 00:00 daily. [place] 52 :00 Medical Branch BIOTIN ORAL 2020- No 1{tbl} Take 1 Tab Univers 04-02-25 by mouth ity of 06:52: 00:00 daily. [place] 52 :00 [facility] Branch acetaminoph Yes 650mg 650 mg, Un christie en 04-02 Oral, ity of (TYLENOL) 06:52: Q6HPRN, [place] tablet 650 06 Starting Medic al mg Tue Branch 04/02/21 at 0152, Until Discontinu ed, Routine, Pain (scale 1-3), Temp > 38.5 C HYDROcodone 2020- No 1{tbl} Take 1 U nivers -acetaminop 04-02-25 tablet by it y of hen (NORCO) 06:45: 00:00 mouth [place] 7.5-325 mg 43 :00 every 6 Medica l per tablet (six) Branch hours as needed for Pain. cefTRIAXone 2020- No 1000mg 1,000 mg, Univers (ROCEPHIN) 04-02-25 IV ity of 1,000 mg in 04:30: 04:21 [place], [place] NaCl 0.9% 00 :00 ONCE, 1 [...] 200mg Q.5D Take 1 Meth geovani (CeleBREX) 12-13 03-[address] 200 MG 00:00: 05:59 (200 mg Hospita capsule 00 :00 total) by l mouth 2 (two) times a day for 30 days. HYDROcodone 2020- [place] [id number] 1{tbl} Q6H Take 1 [facility] -acetaminop 12-13-[address] hen (Delta) 00:00: 05:59 mouth Hosp jah 10-325 mg [...] 500mg Q.5D Take 500 [facility] am (KEPPRA) 12-11- mg by st 500 MG 19:07: 00:00 mouth 2 Hospita tablet 15 :00 (two) l times a day. traMADoL 2020- [place] [id number] 50mg Q4H Take 1 Metho di (ULTRAM) 50 11-21-24 tablet (50 s t mg tablet 00:00: [...] Medical Branch magnesium 2019-11 Yes Take by [facility] ers oxide 400 0-22 mouth. ity of mg 20:09: [place] magnesium 19 Medical Tab Branch traZODONE 2019-11 Yes 50mg Take 50 mg Un christie (DESYREL) 0-22 by mouth ity of 50 mg 20:09: at [place] tablet 19 bedtime. Medical Branch magnesium 2019-11 Yes Take by [facility] ers oxide 400 0-22 mouth. ity of mg 20:09: [place] [address] Medical Tab Branch furosemide 2019-11 Yes 20mg Take 20 mg U nivers (LASIX) 40 0-22 by mouth ity o f mg tablet 20:06: daily. [place] [address] Medical Branch pantoprazol 2019-11 Yes 40mg Take 40 mg Univers e 0-22 by mouth ity of (PROTONIX) 20:06: daily. [place] 40 [place] [address] Medical tablet Branch citalopram 2019-11 Yes 20mg Take 20 mg U nivers (CELEXA) 20 0-22 by mouth ity of mg tablet 20:06: daily. [place] [address] Medical Branch rOPINIRole 2019-11 Yes 2mg Take 2 mg Un [facility]ie (REQUIP) 2 0-22 by mouth ity o f mg tablet 20:06: at [place] [address] bedtime. Medical Branch tiZANidine 2019-11 Yes 2mg [...] 0-22 by mouth ity of 20:06: daily. [place] [address] Medical Branch DOCUSATE 2019-11 Yes 1{tbl} Take 1 Tab U nivers CALCIUM 0-22 by mouth ity of (STOOL 20:06: as needed [place] SOFTENER for Medical ORAL) Constipati Branch on. amLODIPine 2019-11 Yes 5mg Take 5 mg Un [place]ie 5 mg tablet 0-22 by mouth ity of 20:06: daily. [place] [address] Medical Branch furosemide 2019-11 Yes 20mg Take 20 mg U nivers (LASIX) 40 0-22 by mouth ity o f mg tablet 20:06: daily. [address] Branch pantoprazol 2019-11 Yes 40mg Take 40 mg Univers e 0-22 by mouth ity of (PROTONIX) 20:06: daily. [place] 40 mg EC Medical tablet Branch citalopram 2019-11 Yes 20mg Take 20 mg U nivers (CELEXA) 20 0-22 by mouth ity of mg tablet 20:06: daily. [address] Branch rOPINIRole 2019-11 Yes 2mg Take 2 mg Un christie (REQUIP) 2 0-22 by mouth ity o f mg tablet 20:06: at [place] [address] bedtime. Medical Branch tiZANidine 2019-11 Yes 2mg [...] 0-22 by mouth ity of 20:06: daily. [address] Branch DOCUSATE 2019-11 Yes 1{tbl} Take 1 Tab U nivers CALCIUM 0-22 by mouth ity of (STOOL 20:06: as needed [place] SOFTENER for Medical ORAL) Constipati Branch on. amLODIPine 2019-11 Yes 5mg Take 5 mg Un christie 5 mg tablet 0-22 by mouth ity of 20:06: daily. [address] Branch furosemide 2019-11 Yes 20mg Take 20 mg U nivers (LASIX) 40 0-22 by mouth ity o f mg tablet 20:06: daily. [address] Branch pantoprazol 2019-11 Yes 40mg Take 40 mg Univers e 0-22 by mouth ity of (PROTONIX) 20:06: daily. [place] 40 mg EC Medical tablet Branch citalopram 2019-11 Yes 20mg Take 20 mg U nivers (CELEXA) 20 0-22 by mouth ity of mg tablet 20:06: daily. [place] [address] Medical Branch rOPINIRole 2019-11 Yes 2mg Take 2 mg Un christie (REQUIP) 2 0-22 by mouth ity o f mg tablet 20:06: at [place] [address] bedtime. Medical Branch tiZANidine 2019-11 Yes 2mg [...] 0-22 by mouth ity of 20:06: daily. [place] [address] Medical Branch DOCUSATE 2019-11 Yes 1{tbl} Take 1 Tab U nivers CALCIUM 0-22 by mouth ity of (STOOL 20:06: as needed [place] SOFTENER for Medical ORAL) Constipati Branch on. amLODIPine 2019-11 Yes 5mg Take 5 mg Un [place] 5 mg tablet 0-22 by mouth ity of 20:06: daily. [place] [address] Medical Branch furosemide 2019-11 Yes 20mg Take 20 mg U nivers (LASIX) 40 0-22 by mouth ity o f mg tablet 20:06: daily. [place] [address] Medical Branch pantoprazol 2019-11 Yes 40mg Take 40 mg Univers e 0-22 by mouth ity of (PROTONIX) 20:06: daily. [place] 40 mg EC Medical tablet Branch citalopram 2019-11 Yes 20mg Take 20 mg U nivers (CELEXA) 20 0-22 by mouth ity of mg tablet 20:06: daily. [place] [address] Medical Branch rOPINIRole 2019-11 Yes 2mg Take 2 mg [place] (REQUIP) 2 0-22 by mouth ity o f mg tablet 20:06: at [place] [address] bedtime. Medical Branch tiZANidine 2019-11 Yes 2mg [...] 0-22 by mouth ity of 20:06: daily. [place] [address] Medical Branch DOCUSATE 2019-11 Yes 1{tbl} Take 1 Tab U nivers CALCIUM 0-22 by mouth ity of (STOOL 20:06: as needed [place] SOFTENER for Medical ORAL) Constipati Branch on. amLODIPine 2019-11 Yes 5mg Take 5 mg Un [place] 5 mg tablet 0-22 by mouth ity of 20:06: daily. [place] [address] Medical Branch furosemide 2019-11 Yes 20mg Take 20 mg U nivers (LASIX) 40 0-22 by mouth ity o f mg tablet 20:06: daily. [place] [address] Medical Branch pantoprazol 2019-11 Yes 40mg Take 40 mg Univers e 0-22 by mouth ity of (PROTONIX) 20:06: daily. [place] 40 mg EC Medical tablet Branch citalopram 2019-11 Yes 20mg Take 20 mg U nivers (CELEXA) 20 0-22 by mouth ity of mg tablet 20:06: daily. [place] [address] Medical Branch rOPINIRole 2019-11 Yes 2mg Take 2 mg Un [facility]ie (REQUIP) 2 0-22 by mouth ity o f mg tablet 20:06: at [place] [address] bedtime. Medical Branch tiZANidine 2019-11 Yes 2mg [...] 0-22 by mouth ity of 20:06: daily. [place] [address] Medical Branch DOCUSATE 2019-11 Yes 1{tbl} Take 1 Tab U nivers CALCIUM 0-22 by mouth ity of (STOOL 20:06: as needed [place] SOFTENER for Medical ORAL) Constipati Branch on. amLODIPine 2019-11 Yes 5mg Take 5 mg [facility] 5 mg tablet 0-22 by mouth ity of 20:06: daily. [place] [address] Medical Branch furosemide 2019-11 Yes 20mg Take 20 mg U nivers (LASIX) 40 0-22 by mouth ity o f mg tablet 20:06: daily. [place] [address] Medical Branch pantoprazol 2019-11 Yes 40mg Take 40 mg Univers e 0-22 by mouth ity of (PROTONIX) 20:06: daily. [place] [address] Medical tablet Branch citalopram 2019-11 Yes 20mg Take 20 mg U nivers (CELEXA) 20 0-22 by mouth ity of mg tablet 20:06: daily. [place] [address] Medical Branch rOPINIRole 2019-11 Yes 2mg Take 2 mg [facility] (REQUIP) 2 0-22 by mouth ity o f mg tablet 20:06: at [place] [address] bedtime. Medical Branch tiZANidine 2019-11 Yes 2mg [...] 0-22 by mouth ity of 20:06: daily. [place] [address] Medical Branch DOCUSATE 2019-11 Yes 1{tbl} Take 1 Tab U nivers CALCIUM 0-22 by mouth ity of (STOOL 20:06: as needed [place] SOFT[facility] for Medical ORAL) Constipati Branch on. amLODIPine 2019-11 Yes 5mg Take 5 mg [facility] [place] 5 mg tablet 0-22 by mouth ity of 20:06: daily. [place] [address] Medical Branch furosemide 2019-11 Yes 20mg Take 20 mg U nivers (LASIX) 40 0-22 by mouth ity o f mg tablet 20:06: daily. [place] [address] Medical Branch pantoprazol 2019-11 Yes 40mg Take 40 mg Univers e 0-22 by mouth ity of (PROTONIX) 20:06: daily. [place] 40 mg EC 52 Medical tablet Branch citalopram 2019-11 Yes 20mg Take 20 mg U nivers (CELEXA) 20 0-22 by mouth ity of mg tablet 20:06: daily. [address] Branch rOPINIRole 2019-11 Yes 2mg Take 2 mg [facility] (REQUIP) 2 0-22 by mouth ity o f mg tablet 20:06: at [place] [address] bedtime. Medical Branch tiZANidine 2019-11 Yes 2mg [...] 0-22 by mouth ity of 20:06: daily. [address] Branch DOCUSATE 2019-11 Yes 1{tbl} Take 1 Tab U nivers CALCIUM 0-22 by mouth ity of (STOOL 20:06: as needed [place] SOFTENER for Medical ORAL) Constipati Branch on. amLODIPine 2019-11 Yes 5mg Take 5 mg [place] 5 mg tablet 0-22 by mouth ity of 20:06: daily. [address] Branch furosemide 2019-11 Yes 20mg Take 20 mg U nivers (LASIX) 40 0-22 by mouth ity o f mg tablet 20:06: daily. [address] Branch pantoprazol 2019-11 Yes 40mg Take 40 mg Univers e 0-22 by mouth ity of (PROTONIX) 20:06: daily. [place] 40 mg EC Medical tablet Branch citalopram 2019-11 Yes 20mg Take 20 mg U nivers (CELEXA) 20 0-22 by mouth ity of mg tablet 20:06: daily. [address] Branch rOPINIRole 2019-11 Yes 2mg Take 2 mg [facility] (REQUIP) 2 0-22 by mouth ity o f mg tablet 20:06: at [place] [address] bedtime. Medical Branch tiZANidine 2019-11 Yes 2mg [...] 0-22 by mouth ity of 20:06: daily. [place] [address] Medical Branch DOCUSATE 2019-11 Yes 1{tbl} Take 1 Tab U nivers CALCIUM 0-22 by mouth ity of (STOOL 20:06: as needed [place] SOFTENER for Medical ORAL) Constipati Branch on. amLODIPine 2019-11 Yes 5mg Take 5 mg [place] 5 mg tablet 0-22 by mouth ity of 20:06: daily. [place] [address] Medical Branch furosemide 2019-11 Yes 20mg Take 20 mg U nivers (LASIX) 40 0-22 by mouth ity o f mg tablet 20:06: daily. [place] [address] Medical Branch pantoprazol 2019-11 Yes 40mg Take 40 mg Univers e 0-22 by mouth ity of (PROTONIX) 20:06: daily. [place] 40 [place] [address] Medical tablet Branch citalopram 2019-11 Yes 20mg Take 20 mg U nivers (CELEXA) 20 0-22 by mouth ity of mg tablet 20:06: daily. [place] [address] Medical Branch rOPINIRole 2019-11 Yes 2mg Take 2 mg [facility] (REQUIP) 2 0-22 by mouth ity o f mg tablet 20:06: at [place] [address] bedtime. Medical Branch tiZANidine 2019-11 Yes 2mg [...] 0-22 by mouth ity of 20:06: daily. [place] [address] Medical Branch DOCUSATE 2019-11 Yes 1{tbl} Take 1 Tab U nivers CALCIUM 0-22 by mouth ity of (STOOL 20:06: as needed [place] SOFTENER 52 for Medical ORAL) Constipati Branch on. amLODIPine 2019-11 Yes 5mg Take 5 mg [place] 5 mg tablet 0-22 by mouth ity of 20:06: daily. [place] [address] Medical Branch furosemide 2019-11 Yes 20mg Take 20 mg U nivers (LASIX) 40 0-22 by mouth ity o f mg tablet 20:06: daily. [place] [address] Medical Branch pantoprazol 2019-11 Yes 40mg Take 40 mg Univers e 0-22 by mouth ity of (PROTONIX) 20:06: daily. [place] [address] Medical [facility] Branch citalopram 2019-11 Yes 20mg Take 20 mg U nivers (CELEXA) 20 0-22 by mouth ity of mg tablet 20:06: daily. [place] [address] Medical Branch rOPINIRole 2019-11 Yes 2mg Take 2 mg [place] (REQUIP) 2 0-22 by mouth ity o f mg tablet 20:06: at [place] [address] bedtime. Medical Branch tiZANidine 2019-11 Yes 2mg Take 2 mg [facility] (ZANAFLEX) 0-22 by mouth 2 ity of 2 mg 20:06: (two) [place] [facility] 52 times Medical daily as Branch needed for Muscle Spasms. HYDROmorpho 2019-11 Yes 8mg Take 8 mg U nivers ne 0-22 by mouth ity of (DILAUDID) 20:06: [place] 6 [place] 52 (six) Medical hours as Branch needed for Pain. BIOTIN ORAL 2019-11 Yes 1{tbl} Take 1 Tab Univers 0-22 by mouth ity of 20:06: daily. [place] [address] Medical Branch DOCUSATE 2019-11 Yes 1{tbl} Take 1 Tab U nivers CALCIUM 0-22 by mouth ity of (STOOL 20:06: as needed [place] SOFTENER for Medical ORAL) Constipati Branch on. amLODIPine 2019-11 Yes 5mg Take 5 mg [place] 5 mg tablet 0-22 by mouth ity of 20:06: daily. [place] [address] Medical Branch furosemide 2019-11 Yes 20mg Take 20 mg U nivers (LASIX) 40 0-22 by mouth ity o f mg tablet 20:06: daily. [place] [address] Medical Branch pantoprazol 2019-11 Yes 40mg Take 40 mg Univers e 0-22 by mouth ity of (PROTONIX) 20:06: daily. [place] 40 mg EC Medical tablet Branch citalopram 2019-11 Yes 20mg Take 20 mg U nivers (CELEXA) 20 0-22 by mouth ity of mg tablet 20:06: daily. [place] [address] Medical Branch rOPINIRole 2019-11 Yes 2mg Take 2 mg [place] (REQUIP) 2 0-22 by mouth ity o f mg tablet 20:06: at [place] [address] bedtime. Medical Branch tiZANidine 2019-11 Yes 2mg [...] 0-22 by mouth ity of 20:06: daily. [address] Branch DOCUSATE 2019-11 Yes 1{tbl} Take 1 Tab U nivers CALCIUM 0-22 by mouth ity of (STOOL 20:06: as needed [place] SOFTENER for Medical ORAL) Constipati Branch on. amLODIPine 2019-11 Yes 5mg Take 5 mg [place] 5 mg tablet 0-22 by mouth ity of 20:06: daily. [address] Branch furosemide 2019-11 Yes 20mg Take 20 mg U nivers (LASIX) 40 0-22 by mouth ity o f mg tablet 20:06: daily. [address] Branch pantoprazol 2019-11 Yes 40mg Take 40 mg Univers e 0-22 by mouth ity of (PROTONIX) 20:06: daily. [place] 40 mg EC Medical tablet Branch citalopram 2019-11 Yes 20mg Take 20 mg U nivers (CELEXA) 20 0-22 by mouth ity of mg tablet 20:06: daily. [address] Branch rOPINIRole 2019-11 Yes 2mg Take 2 mg [place] (REQUIP) 2 0-22 by mouth ity o f mg tablet 20:06: at [place] [address] bedtime. Medical Branch tiZANidine 2019-11 Yes 2mg [...] 0-22 by mouth ity of 20:06: daily. [address] Branch DOCUSATE 2019-11 Yes 1{tbl} Take 1 Tab U nivers CALCIUM 0-22 by mouth ity of (STOOL 20:06: as needed [place] SOFTENER 52 for Medical ORAL) Constipati Branch on. amLODIPine 2019-11 Yes 5mg Take 5 mg [place] 5 mg tablet 0-22 by mouth ity of 20:06: daily. [address] Branch clonazePAM 2019-11 Yes Univers 1 mg tablet 0-20 ity of 00:00: [address] Branch clonazePAM 2019-11 Yes Univers 1 mg tablet 0-20 ity of 00:00: [address] Branch clonazePAM 2019-11 Yes Univers 1 mg tablet 0-20 ity of 00:00: [address] Branch clonazePAM 2019-11 Yes Univers 1 mg tablet 0-20 ity of 00:00: [address] Branch clonazePAM 2019-11 Yes Univers 1 mg tablet 0-20 ity of 00:00: [address] Branch clonazePAM 2019-11 Yes Univers 1 mg tablet 0-20 ity of 00:00: [address] clonazePAM 2019-11 Yes Univers 1 mg tablet 0-20 ity of 00:00: [address] Branch clonazePAM 2019-11 Yes Univers 1 mg tablet 0-20 ity of 00:00: [address] Branch clonazePAM 2019-11 Yes Univers 1 mg tablet 0-20 ity of 00:00: [place] 00 Medical Branch clonazePAM 2020- Yes Univers 1 mg tablet 0-20 ity of 00:00: [place] [facility] clonazePAM 2020- Yes Univers 1 mg tablet 0-20 ity of 00:00: [place] [facility] clonazePAM 2020- Yes Univers 1 mg tablet 0-20 ity of 00:: Medical Branch clonazePAM 2020- Yes Univers 1 mg tablet 0-20 ity of 00:00: Medical Branch clonazePAM 2020- Yes Univers 1 mg tablet 0-20 ity of 00:: Medical Branch clonazePAM 2020- Yes Univers 1 mg tablet 0-20 ity of 00:: [place] [facility] clonazePAM 2020- Yes Univers 1 mg tablet 0-20 ity of 00:: [place] [facility] clonazePAM 2020- Yes Univers 1 mg tablet 0-20 ity of 00:: [place] [facility] clonazePAM 2020- Yes Univers 1 mg tablet 0-20 ity of 00:: [place] [facility] clonazePAM 2020- Yes Univers 1 mg tablet 0-20 ity of :: [place] [facility] clonazePAM 2020- Yes Univers 1 mg tablet 0-20 ity of 00:00: [place] [facility] indomethaci 2019-0 2020- No 50mg [...] for up to 30 days. AMITIZA 24 2019-0 Yes Univers mcg capsule 9-14 ity of 00:00: [place] [facility] Branch AMITIZA 24 2019-0 Yes Univers mcg capsule 9-14 ity of 00:00: [place] [facility] AMITIZA 24 2019-0 Yes Univers mcg capsule 9-14 ity of 00:00: [place] [facility] Branch AMITIZA 24 2019-0 Yes Univers mcg capsule 9-14 ity of 00:00: [place] [facility] 24 2020-0 Yes Univers mcg capsule 9-14 ity of 00:00: [place] [facility] 24 2020-0 Yes Univers mcg capsule 9-14 ity of 00:00: [place] [facility] 24 2019-0 Yes Univers mcg capsule 9-14 ity of 00:00: [place] [facility] 24 2019-0 Yes Univers mcg capsule 9-14 ity of 00:00: [place] [facility] 24 2019-0 Yes Univers mcg capsule 9-14 ity of 00:00: [place] [facility] 24 2019-0 Yes Univers mcg capsule 9-14 ity of 00:00: [place] [facility] Branch [facility] 24 2019-0 Yes Univers mcg capsule 9-14 ity of 00:00: [place] [facility] 24 2019-0 Yes Univers mcg capsule 9-14 ity of 00:00: [place] [facility] 24 2019-0 Yes Univers mcg capsule 9-14 ity of 00:00: [place] [facility] 24 2019-0 Yes Univers mcg capsule 9-14 ity of 00:00: [place] 00 Medical [facility] 24 2019-0 Yes Univers mcg capsule 9-14 ity of 00:00: [place] [facility] 24 2019-0 Yes Univers mcg capsule 9-14 ity of 00:00: [place] [facility] 24 2019-0 Yes Univers mcg capsule 9-14 ity of 00:00: [place] [facility] 24 2019-0 Yes Univers mcg capsule 9-14 ity of 00:00: [place] [facility] 24 2019-0 Yes Univers mcg capsule 9-14 ity of 00:00: [place] 00 Medical [facility] 24 2019-0 Yes Univers mcg capsule 9-14 ity of 00:00: [place] 00 Medical Branch methocarbam 2019-0 2020- No 500mg Q.25D Take 1 M ethodi oL [address] (Robaxin) 00:00: 00:00 (500 mg [facility] 500 MG 00 :00 total) by l tablet mouth 4 (four) times a day as needed for muscle spasms. TRINTELLIX 2019-0 Yes Univers 20 mg Tab 8-12 ity of 00:00: [place] [facility] TRINTELLIX 2020-0 Yes Univers 20 mg Tab 8-12 ity of 00:00: [place] [facility] TRINTELLIX 2020-0 Yes Univers 20 mg Tab 8-12 ity of 00:00: Medical Branch TRINTELLIX 2020-0 Yes Univers 20 mg Tab 8-12 ity of 00:00: [place] [facility] TRINTELLIX 2020-0 Yes Univers 20 mg Tab 8-12 ity of 00:00: [place] [facility] TRINTELLIX 2019-0 Yes Univers 20 mg Tab 8-12 ity of 00:00: [place] [facility] TRINTELLIX 2019-0 Yes Univers 20 mg Tab 8-12 ity of 00:00: [place] [facility] TRINTELLIX 2019-0 Yes Univers 20 mg Tab 8-12 ity of 00:00: [place] [facility] TRINTELLIX 2019-0 Yes Univers 20 mg Tab 8-12 ity of 00:00: [place] [facility] TRINTELLIX 2019-0 Yes Univers 20 mg Tab 8-12 ity of 00:00: [place] [facility] TRINTELLIX 2019-0 Yes Univers 20 mg Tab 8-12 ity of 00:00: [place] [facility] TRINTELLIX 2019-0 1- No Univer s 20 mg Tab 8-12 05-25 ity of 00:00: 00:00 [place] 00 :00 Medical Branch atorvastati 2018-11 Yes 20mg Take 20 mg Univers n 20 mg 0-10 by mouth. ity of tablet 00:00: [place] [facility] atorvastati 2018-11 Yes 20mg Take 20 mg Univers n 20 mg 0-10 by mouth. ity of tablet 00:00: [place] [facility] Branch atorvastati 2018-11 Yes 20mg Take 20 mg Univers n 20 mg 0-10 by mouth. ity of tablet 00:00: [place] [facility] Branch atorvastati 2018-11 Yes 20mg Take 20 mg Univers n 20 mg 0-10 by mouth. ity of tablet 00:00: [place] [facility] atorvastati 2018-11 Yes 20mg Take 20 mg Univers n 20 mg 0-10 by mouth. ity of tablet 00:00: [place] [facility] atorvastati 2018-11 Yes 20mg Take 20 mg Univers n 20 mg 0-10 by mouth. ity of tablet 00:00: [facility] 2018-11 Yes 20mg Take 20 mg Univers n 20 mg 0-10 by mouth. ity of tablet 00:00: [facility] 2018-11 Yes 20mg Take 20 mg Univers n 20 mg 0-10 by mouth. ity of tablet 00:00: [facility] Yes 20mg Take 20 mg Univers n 20 mg 0-10 by mouth. ity of tablet 00:00: [facility] 2018-11 Yes 20mg Take 20 mg Univers n 20 mg 0-10 by mouth. ity of tablet 00:00: [place] [facility] 2018-11 Yes 20mg Take 20 mg Univers n 20 mg 0-10 by mouth. ity of tablet 00:00: [facility] 2018-11 Yes 20mg Take 20 mg Univers n 20 mg 0-10 by mouth. ity of tablet 00:00: [place] [facility] 2018-11 Yes 20mg Take 20 mg Univers n 20 mg 0-10 by mouth. ity of tablet 00:00: [place] [facility] 2018-11 Yes 20mg Take 20 mg Univers n 20 mg 0-10 by mouth. ity of tablet 00:00: [place] [facility] 2018-11 Yes 20mg Take 20 mg Univers n 20 mg 0-10 by mouth. ity of tablet 00:00: [place] [facility] 2018-11 Yes 20mg Take 20 mg Univers n 20 mg 0-10 by mouth. ity of tablet 00:00: [place] [facility] 2018-11 Yes 20mg Take 20 mg Univers n 20 mg 0-10 by mouth. ity of tablet 00:00: [place] [facility]11 Yes 20mg Take 20 mg Univers n 20 mg 0-10 by mouth. ity of tablet 00:00: [place] [facility] 2018-11 Yes 20mg Take 20 mg Univers n 20 mg 0-10 by mouth. ity of tablet 00:00: [place] [facility] 2018-11 Yes 20mg Take 20 mg Univers n 20 mg 0-10 by mouth. ity of tablet 00:00: [place] 00 Medical Branch amLODIPine 2018-0 Yes 5mg Take 5 mg Un [facility] 5 mg tablet 5-08 by mouth ity of 14:50: daily. [place] 10 Medical Branch HYDROcodone 2018-0 Yes 1{tbl} Take 1 [facility] -acetaminop 5-08 tablet by ity of hen ([employer]) 14:50: mouth [place] 7.5-325 mg 10 every 6 Medica l per tablet (six) Branch hours as needed for Pain. HYDROcodone 2018-0 Yes 1{tbl} Take 1 [facility] -acetaminop 5-08 tablet by ity of hen ([employer]) 14:50: mouth [place] 7.5-325 mg 10 every 6 Medica l per tablet (six) Branch hours as needed for Pain. HYDROcodone 2018-0 Yes 1{tbl} Take 1 [facility] [place] -acetaminop 5-08 tablet by ity of hen ([employer]) 14:50: mouth [place] 7.5-325 mg 10 every 6 Medica l per tablet (six) Branch hours as needed for Pain. HYDROcodone 2018-0 Yes 1{tbl} Take 1 [facility] [place] -acetaminop 5-08 tablet by ity of hen ([employer]) 14:50: mouth [place] 7.5-325 mg 10 every 6 Medica l per tablet (six) Branch hours as needed for Pain. HYDROcodone 2018-0 Yes 1{tbl} Take 1 [facility] [place] -acetaminop 5-08 tablet by ity of hen ([employer]) 14:50: mouth [place] 7.5-325 mg 10 every 6 Medica l per tablet (six) Branch hours as needed for Pain. HYDROcodone 2018-0 Yes 1{tbl} Take 1 [facility] [place] -acetaminop 5-08 tablet by ity of hen ([employer]) 14:50: mouth [place] 7.5-325 mg 10 every 6 Medica l per tablet (six) Branch hours as needed for Pain. HYDROcodone 2018-0 Yes 1{tbl} Take 1 [place] -acetaminop 5-08 tablet by ity of hen ([employer]) 14:50: mouth [place] 7.5-325 mg 10 every 6 Medica l per tablet (six) Branch hours as needed for Pain. HYDROcodone 2018-0 Yes 1{tbl} Take 1 [facility] [place] -acetaminop 5-08 tablet by ity of hen ([employer]) 14:50: mouth [place] 7.5-325 mg 10 every 6 Medica l per tablet (six) Branch hours as needed for Pain. HYDROcodone 2018-0 Yes 1{tbl} Take 1 [place] -acetaminop 5-08 tablet by ity of hen ([employer]) 14:50: mouth [place] 7.5-325 mg 10 every 6 Medica l per tablet (six) Branch hours as needed for Pain. HYDROcodone 2018-0 Yes 1{tbl} Take 1 [place] -acetaminop 5-08 tablet by ity of hen ([employer]) 14:50: mouth [place] 7.5-325 mg 10 every 6 Medica l per tablet (six) Branch hours as needed for Pain. HYDROcodone 2018-0 Yes 1{tbl} Take 1 [place] -acetaminop 5-08 tablet by ity of hen ([employer]) 14:50: mouth [place] 7.5-325 mg 10 every 6 Medica l per tablet (six) Branch hours as needed for Pain. HYDROcodone 2018-0 Yes 1{tbl} Take 1 [place] -acetaminop 5-08 tablet by ity of hen ([employer]) 14:50: mouth [place] 7.5-325 mg 10 every 6 Medica l per tablet (six) Branch hours as needed for Pain. HYDROcodone 2018-0 Yes 1{tbl} Take 1 [place] -acetaminop 5-08 tablet by ity of hen ([employer]) 14:50: mouth [place] 7.5-325 mg 10 every 6 Medica l per tablet (six) Branch hours as needed for Pain. DOCUSATE 2018-0 Yes 1{tbl} Take 1 Tab U nivers CALCIUM 5-08 by mouth ity of (STOOL 14:49: as needed [place] SOFTENER 02 for Medical ORAL) Constipati Branch on. lisinopril 2018-0 Yes Take by Uni vers (PRINIVIL,Z 5-08 mouth ity of ESTRIL) 40 14:49: daily. [place] mg tablet 02 Medical Branch multivitami 2018-0 Yes 1{tbl} Take 1 Tab Univers n tablet 5-08 by mouth ity of 14:49: daily. [place] 02 Medical Branch lisinopril 2018-0 Yes Take by Uni vers (PRINIVIL,Z 5-08 mouth ity of ESTRIL) 40 14:49: daily. [place] mg tablet 02 Medical Branch multivitami 0 Yes 1{tbl} Take 1 Tab Univers n tablet 5-08 by mouth ity of 14:49: daily. [place] [facility] Branch lisinopril 2017-0 Yes Take by Uni vers (PRINIVIL,Z 5-08 mouth ity of ESTRIL) 40 14:49: daily. [place] mg tablet 02 Medical Branch multivitami 0 Yes 1{tbl} Take 1 Tab Univers n tablet 5-08 by mouth ity of 14:49: daily. [place] [facility] Branch lisinopril 0 Yes Take by Uni vers (PRINIVIL,Z 5-08 mouth ity of ESTRIL) 40 14:49: daily. [place] mg tablet 02 Medical Branch multivitami 0 Yes 1{tbl} Take 1 Tab Univers n tablet 5-08 by mouth ity of 14:49: daily. Medical Branch lisinopril 0 Yes Take by Uni vers (PRINIVIL,Z 5-08 mouth ity of ESTRIL) 40 14:49: daily. [place] mg tablet 02 Medical Branch multivitami Yes 1{tbl} Take 1 Tab Univers n tablet 5-08 by mouth ity of 14:49: daily. [place] [facility] Branch lisinopril 2017-0 Yes Take by Uni vers (PRINIVIL,Z 5-08 mouth ity of ESTRIL) 40 14:49: daily. [place] mg tablet 02 Medical Branch multivitami 0 Yes 1{tbl} Take 1 Tab Univers n tablet 5-08 by mouth ity of 14:49: daily. Medical Branch lisinopril 2017-0 Yes Take by Uni vers (PRINIVIL,Z 5-08 mouth ity of ESTRIL) 40 14:49: daily. [place] mg tablet 02 Medical Branch multivitami 0 Yes 1{tbl} Take 1 Tab Univers n tablet 5-08 by mouth ity of 14:49: daily. [place] [facility] Branch lisinopril 2017-0 Yes Take by Uni vers (PRINIVIL,Z 5-08 mouth ity of ESTRIL) 40 14:49: daily. [place] mg tablet 02 Medical Branch multivitami 0 Yes 1{tbl} Take 1 Tab Univers n tablet 5-08 by mouth ity of 14:49: daily. [address] lisinopril Yes Take by Uni vers (PRINIVIL,Z 5-08 mouth ity of ESTRIL) 40 14:49: daily. [place] mg tablet [facility] multivitami Yes 1{tbl} Take 1 Tab Univers n tablet 5-08 by mouth ity of 14:49: daily. [address] lisinopril Yes Take by Uni vers (PRINIVIL,Z 5-08 mouth ity of ESTRIL) 40 14:49: daily. [place] mg tablet [facility] multivitami Yes 1{tbl} Take 1 Tab Univers n tablet 5-08 by mouth ity of 14:49: daily. [address] lisinopril Yes Take by Uni vers (PRINIVIL,Z 5-08 mouth ity of ESTRIL) 40 14:49: daily. [place] mg tablet [facility] multivitami Yes 1{tbl} Take 1 Tab Univers n tablet 5-08 by mouth ity of 14:49: daily. [address] lisinopril Yes Take by Uni vers (PRINIVIL,Z 5-08 mouth ity of ESTRIL) 40 14:49: daily. [place] mg tablet [facility] multivitami Yes 1{tbl} Take 1 Tab Univers n tablet 5-08 by mouth ity of 14:49: daily. [address] lisinopril Yes Take by Uni vers (PRINIVIL,Z 5-08 mouth ity of ESTRIL) 40 14:49: daily. [place] mg tablet [address] [place] [address] furosemide Yes 20mg Take 20 mg U nivers (LASIX) 40 5-08 by mouth ity o f mg tablet 14:49: daily. [address] pantoprazol Yes 40mg Take 40 mg Univers e 5-08 by mouth ity of (PROTONIX) 14:49: daily. [place] 40 mg EC [address] [place] [address] Branch citalopram Yes 20mg Take 20 mg U nivers (CELEXA) 20 5-08 by mouth ity of mg tablet 14:49: daily. [address] traZODONE Yes 50mg Take 50 mg Un [facility]ie (DESYREL) 5-08 by mouth ity of 50 mg 14:49: at [place] tablet 02 bedtime. Medical Branch rOPINIRole Yes 2mg Take 2 mg [facility] (REQUIP) 2 5-08 by mouth ity o f mg tablet 14:49: at [place] 02 bedtime. Medical Branch tiZANidine Yes 2mg Take [...] hours as Branch needed for Pain. multivitami Yes 1{tbl} Take 1 Tab Univers n tablet 5-08 by mouth ity of 14:49: daily. Medical Branch BIOTIN ORAL Yes 1{tbl} Take 1 Tab Univers 5-08 by mouth ity of 14:49: daily. Medical Branch levothyroxi Yes [id number] TAKE 1 Univers ne 25 mcg 5-08 TABLET BY ity o f tablet 00:00: MOUTH IN [place] THE Medical MORNING Branch levothyroxi Yes [id number] TAKE 1 Univers ne 25 mcg 5-08 TABLET BY ity o f tablet 00:00: MOUTH IN [place] 00 THE Medical MORNING Branch levothyroxi Yes [id number] TAKE 1 Univers ne 25 mcg 5-08 TABLET BY ity o f tablet 00:00: MOUTH IN [place] 00 THE Medical MORNING Branch levothyroxi Yes [id number] TAKE 1 Univers ne 25 mcg 5-08 TABLET BY ity o f tablet 00:00: MOUTH IN [place] 00 THE Medical MORNING Branch levothyroxi Yes [id number] TAKE 1 Univers ne 25 mcg 5-08 TABLET BY ity o f tablet 00:00: MOUTH IN [place] 00 [facility] MORNING Branch levothyroxi Yes [id number] TAKE 1 Univers ne 25 mcg 5-08 TABLET BY ity o f tablet 00:00: MOUTH IN [place] THE [facility] MORNING Branch levothyroxi 2018-0 Yes [id number] TAKE 1 Univers ne 25 mcg 5-08 TABLET BY ity o f tablet 00:00: MOUTH IN [place] 00 THE Medical MORNING Branch levothyroxi 2018-0 Yes [id number] TAKE 1 Univers ne 25 mcg 5-08 TABLET BY ity o f tablet 00:00: MOUTH IN [place] 00 THE Medical MORNING Branch levothyroxi 2018-0 Yes [id number] TAKE 1 Univers ne 25 mcg 5-08 TABLET BY ity o f tablet 00:00: MOUTH IN [place] 00 THE Medical MORNING Branch levothyroxi 2018-0 Yes [id number] TAKE 1 Univers ne 25 mcg 5-08 TABLET BY ity o f tablet 00:00: MOUTH IN [place] 00 THE Medical MORNING Branch levothyroxi 2018-0 Yes [id number] TAKE 1 Univers ne 25 mcg 5-08 TABLET BY ity o f tablet 00:00: MOUTH IN [place] 00 THE Medical MORNING Branch levothyroxi 2018-0 Yes [id number] TAKE 1 Univers ne 25 mcg 5-08 TABLET BY ity o f tablet 00:00: MOUTH IN [place] 00 THE Medical MORNING Branch levothyroxi 2018-0 Yes [id number] TAKE 1 Univers ne 25 mcg 5-08 TABLET BY ity o f tablet 00:00: MOUTH IN [place] 00 THE Medical MORNING Branch levothyroxi 2018-0 Yes [id number] TAKE 1 Univers ne 25 mcg 5-08 TABLET BY ity o f tablet 00:00: MOUTH IN [place] 00 THE Medical MORNING Branch levothyroxi 2018-0 Yes [id number] TAKE 1 Univers ne 25 mcg 5-08 TABLET BY ity o f tablet 00:00: MOUTH IN [place] 00 THE Medical MORNING Branch levothyroxi 2018-0 Yes [id number] TAKE 1 Univers ne 25 mcg 5-08 TABLET BY ity o f tablet 00:00: MOUTH IN [place] 00 THE Medical MORNING Branch levothyroxi 2018-0 Yes [id number] TAKE 1 Univers ne 25 mcg 5-08 TABLET BY ity o f tablet 00:00: MOUTH IN [place] 00 THE Medical MORNING Branch levothyroxi 2018-0 Yes [id number] TAKE 1 Univers ne 25 mcg 5-08 TABLET BY ity o f tablet 00:00: MOUTH IN [place] 00 THE Medical MORNING Branch levothyroxi 2018-0 Yes [id number] TAKE 1 Univers ne 25 mcg 5-08 TABLET BY ity o f tablet 00:00: MOUTH IN [place] 00 THE Medical MORNING Branch levothyroxi 2018-0 Yes [id number] TAKE 1 Univers ne 25 mcg 5-08 TABLET BY ity o f tablet 00:00: MOUTH IN [place] 00 THE Medical MORNING Branch levothyroxi 2017-0 Yes [id number] TAKE 1 Univers ne 25 mcg 5-08 TABLET BY ity o f tablet 00:00: MOUTH IN [place] 00 THE Medical MORNING Branch levothyroxi 2017- Yes [id number] TAKE 1 Univers ne 25 mcg 5-08 TABLET BY ity o f tablet 00:00: MOUTH IN [place] 00 THE Medical MORNING Branch metoprolol Yes [...] 25 mg 43 Medical tablet Branch POTASSIUM 2018-0 Yes 10meq Take 10 Univ ers CHLORIDE [...] by mouth ity of tablet 18:23: daily. Medical Branch acetaminoph Yes Take by Un christie en 9 mouth ity of (TYLENOL) 18:23: every 6 [place] 325 mg 06 (six) Medical tablet hours as Branch needed for Pain (scale 1-3). aspirin 81 Yes 81mg Take 81 mg U nivers mg EC 9-26 by mouth ity of tablet 18:23: daily. [facility] Branch acetaminoph Yes Take by Un christie en 9- mouth ity of (TYLENOL) 18:23: every 6 [place] 325 mg 06 (six) Medical tablet hours as Branch needed for Pain (scale 1-3). aspirin 81 Yes 81mg Take 81 mg U nivers mg EC 9-26 by mouth ity of tablet 18:23: daily. [facility] Branch acetaminoph Yes Take by Un christie en 9-26 mouth ity of (TYLENOL) 18:23: every 6 [place] 325 mg 06 (six) Medical tablet hours as Branch needed for Pain (scale 1-3). aspirin 81 0 Yes 81mg Take 81 mg U nivers mg EC 9-26 by mouth ity of tablet 18:23: daily. [place] 06 [facility] Yes Take by Un christie en 08-04 mouth ity of (TYLENOL) 18:23: every 6 [place] 325 mg 06 (six) Medical tablet hours as Branch needed for Pain (scale 1-3). aspirin 81 2015-0 Yes 81mg Take 81 mg U nivers mg EC 9-26 by mouth ity of tablet 18:23: daily. [address] Yes Take by Un christie en 08-04 mouth ity of (TYLENOL) 18:23: every 6 [place] 325 mg 06 (six) Medical tablet hours as Branch needed for Pain (scale 1-3). aspirin 81 2015-0 Yes 81mg Take 81 mg U nivers mg EC 9-26 by mouth ity of tablet 18:23: daily. [address] Yes Take by Un christie en 08-04 mouth ity of (TYLENOL) 18:23: every 6 [place] 325 mg 06 (six) Medical tablet hours as Branch needed for Pain (scale 1-3). aspirin 81 2015- Yes 81mg Take 81 mg U nivers mg EC 9-26 by mouth ity of tablet 18:23: daily. [place] [facility] Yes Take by Un christie en 08-04 mouth ity of (TYLENOL) 18:23: every 6 [place] 325 mg 06 (six) Medical tablet hours as Branch needed for Pain (scale 1-3). aspirin 81 2015-0 Yes 81mg Take 81 mg U nivers mg EC 9-26 by mouth ity of tablet 18:23: daily. [address] Yes Take by Un christie en 08-04 mouth ity of (TYLENOL) 18:23: every 6 [place] 325 mg 06 (six) Medical tablet hours as Branch needed for Pain (scale 1-3). aspirin 81 2016-0 Yes 81mg Take 81 mg U nivers mg EC 9-26 by mouth ity of tablet 18:23: daily. [address] Yes Take by Un christie en 08-04 mouth ity of (TYLENOL) 18:23: every 6 [place] 325 mg 06 (six) Medical tablet hours as Branch needed for Pain (scale 1-3). aspirin 81 2016-0 Yes 81mg Take 81 mg U nivers mg EC 9-26 by mouth ity of tablet 18:23: daily. [address] Yes Take by Un christie en 08-04 mouth ity of (TYLENOL) 18:23: every 6 [place] 325 mg 06 (six) Medical tablet hours as Branch needed for Pain (scale 1-3). aspirin 81 0 Yes 81mg Take 81 mg U nivers mg EC 9-26 by mouth ity of tablet 18:23: daily. [address] Yes Take by Un christie en 08-04 mouth ity of (TYLENOL) 18:23: every 6 [place] 325 mg 06 (six) Medical tablet hours as Branch needed for Pain (scale 1-3). aspirin 81 0 Yes 81mg Take 81 mg U nivers mg EC 9-26 by mouth ity of tablet 18:23: daily. [address] Yes Take by Un christie en 08-04 mouth ity of (TYLENOL) 18:23: every 6 [place] 325 mg 06 (six) Medical tablet hours as Branch needed for Pain (scale 1-3). aspirin 81 Yes 81mg Take 81 mg U nivers mg EC 9-26 by mouth ity of tablet 18:23: daily. [address] Yes Take by Un christie en 08-04 [...] EVERY Medical MORNING Branch AFTER BREAKFAST meloxicam 0 Yes TAKE 1 Univer s (MOBIC) 15 [...] :00 EVERY Medical MORNING Branch AFTER BREAKFAST proMETHazin Yes [id number] 25mg Take 1 Tab Univers e 4-01 by mouth ity of (PHENERGAN) 00:00: every 6 [place] as 25 mg 00 (six) Medical tablet hours as Branch needed for Nausea and Vomiting (N/V). proMETHazin 2015-0 Yes [id number] 25mg Take 1 Tab Univers e 4-01 by mouth ity of (PHENERGAN) 00:00: every 6 [place] as 25 mg 00 (six) Medical tablet hours as Branch needed for Nausea and Vomiting (N/V). proMETHazin 2015- Yes [id number] 25mg Take 1 Tab Univers e 4-01 by mouth ity of (PHENERGAN) 00:00: every 6 [place] as 25 mg 00 (six) Medical tablet hours as Branch needed for Nausea and Vomiting (N/V). proMETHazin Yes [id number] 25mg Take 1 Tab Univers e 4-01 by mouth ity of (PHENERGAN) 00:00: every 6 [place] as 25 mg 00 (six) Medical tablet hours as Branch needed for Nausea and Vomiting (N/V). proMETHazin Yes [id number] 25mg Take 1 Tab Univers e 4-01 by mouth ity of (PHENERGAN) 00:00: every 6 [place] as 25 mg 00 (six) Medical tablet hours as Branch needed for Nausea and Vomiting (N/V). proMETHazin Yes [id number] 25mg Take 1 Tab Univers e 4-01 by mouth ity of (PHENERGAN) 00:00: every 6 [place] as 25 mg 00 (six) Medical tablet hours as Branch needed for Nausea and Vomiting (N/V). proMETHazin Yes [id number] 25mg Take 1 Tab Univers e 4-01 by mouth ity of (PHENERGAN) 00:00: every 6 [place] as 25 mg 00 (six) Medical tablet hours as Branch needed for Nausea and Vomiting (N/V). proMETHazin Yes [id number] 25mg Take 1 Tab Univers e 4-01 by mouth ity of (PHENERGAN) 00:00: every 6 [place] as 25 mg 00 (six) Medical tablet hours as Branch needed for Nausea and Vomiting (N/V). proMETHazin Yes [id number] 25mg Take 1 Tab Univers e 4-01 by mouth ity of (PHENERGAN) 00:00: every 6 [place] as 25 mg 00 (six) Medical tablet hours as Branch needed for Nausea and Vomiting (N/V). proMETHazin Yes [id number] 25mg Take 1 Tab Univers e 4-01 by mouth ity of (PHENERGAN) 00:00: every 6 [place] as 25 mg 00 (six) Medical tablet hours as Branch needed for Nausea and Vomiting (N/V). proMETHazin Yes [id number] 25mg Take 1 Tab Univers e 4-01 by mouth ity of (PHENERGAN) 00:00: every 6 [place] as 25 mg 00 (six) Medical tablet hours as Branch needed for Nausea and Vomiting (N/V). proMETHazin Yes [id number] 25mg Take 1 Tab Univers e 4-01 by mouth ity of (PHENERGAN) 00:00: every 6 [place] 25 mg 00 (six) Medical tablet hours as Branch needed for Nausea and Vomiting (N/V). proMETHazin Yes [id number] 25mg Take 1 Tab Univers e 4-01 by mouth ity of (PHENERGAN) 00:00: every 6 [place] as 25 mg 00 (six) Medical tablet hours as Branch needed for Nausea and Vomiting (N/V). proMETHazin Yes [id number] 25mg Take 1 Tab Univers e 4-01 by mouth ity of (PHENERGAN) 00:00: every 6 [place] as 25 mg 00 (six) Medical tablet hours as Branch needed for Nausea and Vomiting (N/V). proMETHazin Yes [id number] 25mg Take 1 Tab Univers e 4-01 by mouth ity of (PHENERGAN) 00:00: every 6 [place] as 25 mg 00 (six) Medical tablet hours as Branch needed for Nausea and Vomiting (N/V). proMETHazin Yes [id number] 25mg Take 1 Tab Univers e 4-01 by mouth ity of (PHENERGAN) 00:00: every 6 [place] as 25 mg 00 (six) Medical tablet hours as Branch needed for Nausea and Vomiting (N/V). proMETHazin Yes [id number] 25mg Take 1 Tab Univers e 4-01 by mouth ity of (PHENERGAN) 00:00: every 6 [place] as 25 mg 00 (six) Medical tablet hours as Branch needed for Nausea and Vomiting (N/V). proMETHazin Yes [id number] 25mg Take 1 Tab Univers e 4-01 by mouth ity of (PHENERGAN) 00:00: every 6 [place] as 25 mg 00 (six) Medical tablet hours as Branch needed for Nausea and Vomiting (N/V). proMETHazin Yes [id number] 25mg Take 1 Tab Univers e 4-01 by mouth ity of (PHENERGAN) 00:00: every 6 [place] as 25 mg 00 (six) Medical tablet hours as Branch needed for Nausea and Vomiting (N/V). proMETHazin Yes [id number] 25mg Take 1 Tab Univers e 4-01 by mouth ity of (PHENERGAN) 00:00: every 6 [place] as 25 mg 00 (six) Medical tablet hours as Branch needed for Nausea and Vomiting (N/V). proMETHazin Yes [id number] 25mg Take 1 Tab Univers e 4-01 by mouth ity of (PHENERGAN) 00:00: every 6 [place] as 25 mg 00 (six) Medical tablet hours as Branch needed for Nausea and Vomiting (N/V). proMETHazin Yes [id number] 25mg Take 1 Tab Univers e 4-01 by mouth ity of (PHENERGAN) 00:00: every 6 [place] 25 mg 00 (six) Medical tablet hours as Branch needed for Nausea and Vomiting (N/V). promethazin Yes 25mg Q6H Take 25 mg Methodi e 4-[address] (PHENERGAN) 00:00: every 6 [facility] jonathan 25 MG 00 (six) l tablet hours as needed. Immunizations Ordered Filled Immunization Date Status Comments [facility] Immunization Name Name Pneumococcal 2020-09-12 Completed University [...] Universit y of Vaccine Quad IM 00:00:00 [place] Med ical Multi-dose 6+ MO Branch Zoster(Zostavax)( 2019-08-18 Completed Unive rsity of dayne) 00:00:00 [facility] Influenza Virus 2019-08-18 Completed Universit y of Vaccine Quad IM 00:00:00 [place] Med ical Multi-dose 6+ MO Branch Zoster(Zostavax)( 2019-08-18 Completed Unive rsity of dayen) 00:00:00 [facility] Influenza Virus 2019-08-18 Completed Universit y of Vaccine Quad IM 00:00:00 [place] Med ical Multi-dose 6+ MO Branch Zoster(Zostavax)( 2019-08-18 Completed Unive rsity of dayne) 00:00:00 [facility] Influenza Virus 2019-08-18 Completed Universit y of Vaccine Quad IM 00:00:00 [place] Med ical Multi-dose 6+ MO Branch Zoster(Zostavax)( 2019-08-18 Completed Unive rsity of ingles) 00:00:00 [facility] Influenza Virus 2019-08-18 Completed Universit y of Vaccine Quad IM 00:00:00 [place] Med ical Multi-dose 6+ MO Branch Zoster(Zostavax)( 2019-08-18 Completed Unive rsity of ingles) 00:00:00 [facility] Influenza Virus 2019-08-18 Completed Universit y of Vaccine Quad IM 00:00:00 [place] Med ical Multi-dose 6+ MO Branch Zoster(Zostavax)( 2019-08-18 Completed Unive rsity of ingles) 00:00:00 [facility] Influenza Virus 2019-08-18 Completed Universit y of Vaccine Quad IM 00:00:00 [place] Med ical Multi-dose 6+ MO Branch Zoster(Zostavax)( 2019-08-18 Completed Unive rsity of ingles) 00:00:00 [facility] Influenza Virus 2019-08-18 Completed Universit y of Vaccine Quad IM 00:00:00 [place] Med ical Multi-dose 6+ MO Branch Zoster(Zostavax)( 2019-08-18 Completed Unive rsity of ingles) 00:00:00 [facility] Influenza Virus 2019-08-18 Completed Universit y of Vaccine Quad IM 00:00:00 [place] Med ical Multi-dose 6+ MO Branch Zoster(Zostavax)( 2019-08-18 Completed Unive rsity of ingles) 00:00:00 [facility] Influenza Virus 2019-08-18 Completed Universit y of Vaccine Quad IM 00:00:00 [place] Med ical Multi-dose 6+ MO Branch Zoster(Zostavax)( 2019-08-18 Completed Unive rsity of ingles) 00:00:00 [facility] Influenza Virus 2019-08-18 Completed Universit y of Vaccine Quad IM 00:00:00 [place] Med ical Multi-dose 6+ MO Branch Zoster(Zostavax)( 2019-08-18 Completed Unive rsity of ingles) 00:00:00 [place] [facility] Influenza Virus 2019-08-18 Completed Universit y of Vaccine Quad IM 00:00:00 [place] Med ical Multi-dose 6+ MO Branch Zoster(Zostavax)( 2019-08-18 Completed Unive rsity of ingles) 00:00:00 [facility] Branch Influenza Virus 2019-08-18 Completed Universit y of Vaccine Quad IM 00:00:00 [place] Med ical Multi-dose 6+ MO Branch Zoster(Zostavax)( 2019-08-18 Completed Unive rsity of ingles) 00:00:00 [facility] Branch Influenza Virus 2019-08-18 Completed Universit y of Vaccine Quad IM 00:00:00 [place] Med ical Multi-dose 6+ MO Branch Zoster(Zostavax)( 2019-08-18 Completed Unive rsity of ingles) 00:00:00 [facility] Branch Influenza Virus 2019-08-18 Completed Universit y of Vaccine Quad IM 00:00:00 [place] Med ical Multi-dose 6+ MO Branch Zoster(Zostavax)( 2019-08-18 Completed Unive rsity of ingles) 00:00:00 [facility] Branch Zoster(Zostavax)( 2019-05-02 Completed Unive rsity of ingles) 00:00:00 [facility] Zoster(Zostavax)( 2019-05-02 Completed Unive rsity of ingles) 00:00:00 [facility] Zoster(Zostavax)( 2019-05-02 Completed Unive rsity of ingles) 00:00:00 [facility] Zoster(Zostavax)( 2019-05-02 Completed Unive rsity of ingles) 00:00:00 [facility] Branch Zoster(Zostavax)( 2019-05-02 Completed Unive rsity of ingles) 00:00:00 [facility] Branch Zoster(Zostavax)( 2019-05-02 Completed Unive rsity of ingles) 00:00:00 [facility] Branch Zoster(Zostavax)( 2019-05-02 Completed Unive rsity of ingles) 00:00:00 [facility] Branch Zoster(Zostavax)( 2019-05-02 Completed Unive rsity of ingles) 00:00:00 [facility] Branch Zoster(Zostavax)( 2019-05-02 Completed Unive rsity of ingles) 00:00:00 [facility] Zoster(Zostavax)( 2019-05-02 Completed Unive rsity of ingles) 00:00:00 [facility] Zoster(Zostavax)( 2019-05-02 Completed Unive rsity of ingles) 00:00:00 [facility] Zoster(Zostavax)( 2019-05-02 Completed Unive rsity of ingles) 00:00:00 [facility] Zoster(Zostavax)( 2019-05-02 Completed Unive rsity of ingles) 00:00:00 [facility] Zoster(Zostavax)( 2019-05-02 Completed Unive rsity of ingles) 00:00:00 [facility] Zoster(Zostavax)( 2019-05-02 Completed Unive rsity of ingles) 00:00:00 [facility] Influenza Virus 2016-08-04 Completed Universit y of Vaccine Quad IM 3+ 00:00:00 [facility] Influenza Virus 2016-08-04 Completed Universit y of Vaccine Quad IM 3+ 00:00:00 [facility] Influenza Virus 2016-08-04 Completed Universit y of Vaccine Quad IM 3+ 00:00:00 [facility] Influenza Virus 2016-08-04 Completed Universit y of Vaccine Quad IM 3+ 00:00:00 [facility] Influenza Virus 2016-08-04 Completed Universit y of Vaccine Quad IM 3+ 00:00:00 [facility] Influenza Virus 2016-08-04 Completed Universit y of Vaccine Quad IM 3+ 00:00:00 [facility] Influenza Virus 2016-08-04 Completed Universit y of Vaccine Quad IM 3+ 00:00:00 [facility] Influenza Virus 2016-08-04 Completed Universit y of Vaccine Quad IM 3+ 00:00:00 [facility] Influenza Virus 2016-08-04 Completed Universit y of Vaccine Quad IM 3+ 00:00:00 [facility] Influenza Virus 2016-08-04 Completed Universit y of Vaccine Quad IM 3+ 00:00:00 [facility] Influenza Virus 2016-08-04 Completed Universit y of Vaccine Quad IM 3+ 00:00:00 [facility] Influenza Virus 2016-08-04 Completed Universit y of Vaccine Quad IM 3+ 00:00:00 [facility] Influenza Virus 2016-08-04 Completed Universit y of Vaccine Quad IM 3+ 00:00:00 [facility] Influenza Virus 2016-08-04 Completed Universit y of Vaccine Quad IM 3+ 00:00:00 [facility] Influenza Virus 2016-08-04 Completed Universit y of Vaccine Quad IM 3+ 00:00:00 [facility] Influenza Virus 2016-08-04 Completed Universit y of Vaccine Quad IM 3+ 00:00:00 [facility] Influenza Virus 2016-08-04 Completed Universit y of Vaccine Quad IM 3+ 00:00:00 [facility] Influenza Virus 2016-08-04 Completed Universit y of Vaccine Quad IM 3+ 00:00:00 [facility] Influenza Virus 2016-08-04 Completed Universit y of Vaccine Quad IM 3+ 00:00:00 [facility] Influenza Virus 2016-08-04 Completed Universit y of Vaccine Quad IM 3+ 00:00:00 [facility] Influenza Virus 2016-08-04 Completed Universit y of Vaccine Quad IM 3+ 00:00:00 [facility] Influenza Virus 2016-08-04 Completed Universit y of Vaccine Quad IM 3+ 00:00:00 [facility] Vital Signs Vital Name Observation Time Observation Value Comments Source Systolic blood 2021-05-31 21:42:00 145 mm[Hg] Univer sity of pressure [facility] Diastolic blood 2021-05-31 21:42:00 88 mm[Hg] Unive rsity of pressure [facility] Heart rate 2021-05-31 21:41:00 69 /min Universi ty [facility] Body height 2021-05-31 21:41:00 167.6 cm [facility] [place] [facility] Body weight 2021-05-31 21:41:00 67.586 kg [facility] BMI 2021-05-31 21:41:00 24.05 kg/m2 [facility] [place] [facility] Respiratory rate 2021-04-03 17:09:00 20 /min [facility] in 2021-04-03 17:09:00 94 /min [facility] Arterial blood by [facility] Pulse oximetry Branch Systolic blood 2021-04-03 16:32:00 133 mm[Hg] Univer sity of pressure [facility] Branch Diastolic blood 2021-04-03 16:32:00 62 mm[Hg] Unive rsity of pressure [facility] Heart rate 2021-04-03 16:32:00 51 /min Universi ty of [facility] Body temperature 2021-04-03 16:32:00 36.89 Farnaz Univ ersity of [facility] Body height 2021-04-02 07:24:00 167.6 cm Universi ty of [facility] Body weight 2021-04-02 00:32:00 70.761 kg Universi ty of [facility] BMI 2021-04-02 00:32:00 25.18 kg/m2 Universi ty of [facility] Systolic blood 2021-03-04 20:21:00 123 mm[Hg] Univer sity of pressure [facility] Diastolic blood 2021-03-04 20:21:00 74 mm[Hg] Unive rsity of pressure [facility] Heart rate 2021-03-04 20:21:00 69 /min [facility]i ty [facility] [place] [facility] Body height 2021-03-04 20:21:00 167.6 cm Universi ty [facility] [place] [facility] Body weight 2021-03-04 20:21:00 70.761 kg Universi ty of [facility] BMI 2021-03-04 20:21:00 25.18 kg/m2 Universi ty of [facility] Oxygen saturation in 2021-03-04 20:21:00 100 /min University Arterial blood by [facility] Pulse oximetry Branch Systolic blood 2020-08-30 20:05:00 156 mm[Hg] Univer sity of pressure [facility] Branch Diastolic blood 2020-08-30 20:05:00 81 mm[Hg] Unive rsity of pressure [facility] Heart rate 2020-08-30 20:05:00 62 /min Universi ty of [facility] Body temperature 2020-08-30 20:05:00 36.67 Farnaz Univ ersity of [facility] Respiratory rate 2020-08-30 20:05:00 16 /min Univ ersity of [facility] Body height 2020-08-30 20:05:00 167.6 cm Universi ty of [facility] Body weight 2020-08-30 20:05:00 71.578 kg [facility] BMI 2020-08-30 20:05:00 25.47 kg/m2 [facility] Systolic blood 2021-08-02 15:28:00 166 mm[Hg] [facility] pressure Diastolic blood 2021-08-02 15:28:00 79 mm[Hg] [facility] pressure Heart rate 2021-08-02 15:28:00 57 /min [facility] Body temperature 2021-08-02 15:28:00 36.89 Farnaz [facility] Respiratory rate 2021-08-02 15:28:00 18 /min [facility] Oxygen saturation in 2021-08-02 15:28:00 98 /min [facility] Arterial blood by Pulse oximetry Body height 2020-12-13 14:13:00 170.2 cm [facility] Body weight 2020-12-13 14:13:00 72.774 kg [facility] BMI 2020-12-13 14:13:00 25.13 kg/m2 [facility] Procedures Procedure Date / Time Performing Source Performed Clinician PHYSICIAN ORDERS 2021-09-17 Doctor Unassigned, [facility] 06:01:00 [facility] XR SHOULDER 2+ VIEWS RIGHT 2021-08-26 Gerald Curran [facility] 15:52:14 MRI BRAIN WO CONTRAST 2021-08-09 Isabel Snow [facility] 15:20:51 CELL COUNT AND DIFFERENTIAL, 2021-08-02 Tae Salazar [facility] BODY FLUID 21:32:00 NM BONE SCAN 3 PHASE [facility]08[facility]00 CT UPPER EXTREMITY WO RIGHT 2021-08-02 Tae Salazar [facility] 18:25:00 [place] RAD NEEDLE ASPIRATION 2021-08-02 Tae Salazar [facility] 16:51:02 JOINT FLUID CULTURE 2021-08-02 Tae Salazar [facility] 16:25:00 ANAEROBIC CULTURE 2021-08-02 Tae Salazar [facility] 16:25:00 FUNGUS CULTURE 2021-08-02 Tae Salazar [facility] 16:25:00 AFB CULTURE 2021-08-02 Charles Tae Casillas [facility] 16:25:00 FUNGUS SMEAR 2021-08-02 [facility]ae [facility] 16:25:00 AFB STAIN 2021-08-02 [facility] 16:25:00 REFERRAL- REQUEST/RESPONSE 2021-04-30 Doctor Unassigned, [facility] 05:01:00 [facility] BASIC METABOLIC PANEL (NA, K, 2021-04-03 XanderOz Un [facility] CL, CO2, GLUCOSE, BUN, 10:03:00 Medical B ran CREATININE, CA) ELECTROENCEPHALOGRAM 2021-04-03 Vicky [facility] 00:00:00 [facility] URINE CULTURE 2021-04-02 Haider Steven [facility] 03:50:00 [facility] TROPONIN I 2021-04-02 Haider [facility] 02:06:00 [facility] HEPATIC FUNCTION PANEL 2021-04-02 Haider [facility] ([id number]) (ALB,T.PRO,BILI 02:06:00 Medical Branch T,BU/BC,ALT,AST,ALK PHOS) BASIC METABOLIC PANEL (NA, K, 2021-04-02 Steven Maloney [facility] CL, CO2, GLUCOSE, BUN, 02:06:00 Medical ran CREATININE, CA) ETHANOL 2021-04-02 Haider Steven [facility] 02:06:00 [facility] N-TERMINAL PRO-BNP 2021-04-02 Rocky Cleaning [facility] 02:06:00 [facility] COVID-19 (ID NOW RAPID [facility] 02:06:00 [facility] CT HEAD WO CONTRAST 2021-04-02 Steven Maloney [facility] 01:42:34 Medical Branch XR CHEST 1 VW 2021-04-02 Haider Steven [facility] 01:20:37 [facility] AC PANEL 20 + LACTIC ACID 2021-04-02 Steven Maloney [facility] 01:13:00 Medical Branch URINE DRUG (IMMUNOASSAY) - 2021-04-02 Steven Maloney [facility] COMPREHENSIVE DRUG SCREEN 01:12:00 Medica l Branch CBC WITH DIFF 2021-04-02 Steven Maloney [facility] 01:12:00 Medical Branch PROTHROMBIN TIME / INR 2021-04-02 Steven Maloney [facility] 01:12:00 Medical Branch ACTIVATED PARTIAL THRMPLAS 2021-04-02 Steven Maolney [facility] MAMTA 01:12:00 Medical Branch URINALYSIS 2021-04-02 Steven Maloney [facility] 01:11:00 Medical Branch HB ECG ROUTINE & RHYTHM STRIP 2021-04-02 Steven Maloney [facility] 01:06:28 Medical Branch NOTICE OF PRIVACY PRACTICES 2021-04-02 Doctor Unassigned, [facility] 00:25:37 [facility] CONSENT/REFUSAL FOR DIAGNOSIS 2021-04-02 Doctor Unassigned, [facility] AND TREATMENT 00:24:42 [facility] AGREEMENTS AUTHORIZATIONS AND 2021-04-01 Doctor Cassie, [facility] IRREVOCABLE ASSIGNMENTS (FORM 05:01:00 [facility] 2000) AUTHORIZATION TO RELEASE PHI 2021-03-04 Doctor Cassie, [facility] TO [facility] 05:01:00 [facility] REFERRAL- REQUEST/RESPONSE 2021-02-20 Doctor Cassie, [facility] 05:01:00 [facility] POTASSIUM LEVEL 2020-12-14 [facility] 15:05:00 HC COMPLETE BLD COUNT W/AUTO 2020-12-14 [facility] 09:24[facility]00 BASIC METABOLIC PANEL 2020-12-14 [facility] 09[facility]00 ESTIMATED GFR 2020-12-14 [facility] 09:24:00 SURGICAL PATHOLOGY REQUEST 2020-12-13 Tae Salazar [facility] 19:49:00 ND AN ELECTIVE ENDOTRACHEAL 2020-12-13 Himanshu Ludwig [facility] AIRWAY 19:25:07 ARTHROPLASTY, SHOULDER, TOTAL 2020-12-13 Tae Salazar [facility] 18:32:00 ANESTHESIA PERIPHERAL BLOCK 2020-12-13 MuñozBaljit [facility] 17:53:19 [place] POC GLUCOSE 2020-12-13 [facility] 14:30:00 URINE CULTURE 2020-12-11 [facility] 20:30:00 ECG PRE/POST OP 2020-12-11 [facility] 18:55:32 COVID-19 QUALITATIVE RT-PCR 2020-12-11 Aimee Navarro [facility] 18:15:00 URINALYSIS SCREEN AND 2020-12-11 Omaira Li [facility] MICROSCOPY, WITH REFLEX TO 18:15:00 CULTURE TYPE AND SCREEN 2020-12-11 Omaira Li [facility] pital 18:15:00 HEMOGLOBIN A1C 2020-12-11 [facility] 18:15:00 PARTIAL THROMBOPLASTIN TIME 2020-12-11 Jen Omairagerard Silverman [facility] (PTT) 18:15:00 PROTHROMBIN TIME WITH INR 2020-12-11 Omaira Li [facility] 18:15:00 COMPREHENSIVE METABOLIC PANEL 2020-12-11 Omaira Li [facility] 18:15:00 HC COMPLETE BLD COUNT W/AUTO 2020-12-11 [facility] DIFF 18:15:00 ESTIMATED GFR 2020-12-11 [facility] 18:15:00 CELL COUNT AND DIFFERENTIAL, 2020-10-17 Tae Salazar [facility] BODY FLUID 18:16:00 NM BONE SCAN 3 PHASE 2020-10-17 Tae Salazar [facility] 18:14:14 FL RAD NEEDLE ASPIRATION 2020-10-17 Tae Salazar [facility] 17:28:02 JOINT FLUID CULTURE 2020-10-17 [facility] 16:50:00 ANAEROBIC CULTURE 2020-10-17 [facility] 16:50:00 FUNGUS CULTURE 2020-10-17 GrangerTae barriosStewart [facility] 16:50:00 AFB CULTURE 2020-10-17 GrangerTae barrios [facility] 16:50:00 FUNGUS SMEAR 2020-10-17 Tae Salazar [facility] 16:50:00 AFB STAIN 2020-10-17 GrangerTae barrios [facility] 16:50:00 CT UPPER EXTREMITY WO RIGHT 2020-10-17 Granger, Tae Harris [facility] 15:45:16 XR SHOULDER 2+ VW RIGHT 2020-10-10 Gr[facility]LeticiaTaeall [facility] 20:11:07 EXTERNAL PROVIDER RECORDS 2020-09-19 Doctor Unassigned, [facility] 06:01:00 [facility] PATIENT FINANCIAL POLICY 2020-08-30 Doctor Unassigned, [facility] 19:45:11 [facility] NO SHOW OR MISSED APPOINTMENT 2020-08-30 Doctor Cassie, [facility] POLICY ACKNOWLEDGEMENT 19:44:52 [facility] NOTICE OF PRIVACY PRACTICES 2020-08-30 Doctor Unasssarkis, [facility] 19:44:13 [facility] CONSENT TO CONTACT FOR 2020-08-30 Doctor Cassie, [facility] VOLUNTARY RESEARCH 19:43:51 [facility] CONSENT/REFUSAL FOR DIAGNOSIS 2020-08-30 Doctor Cassie, [facility] AND TREATMENT 19:43:19 [facility] ASSIGNMENT OF BENEFITS 2020-08-30 Doctor Matthews, [facility] 19:42:42 [facility] Plan of Care Planned Activity Planned Date Details Comments Source Future Scheduled Test Hepatitis C screening [facility] (procedure) [code = 109358420] Future Scheduled Test Screening for malignant [facility] neoplasm of cervix (procedure) [code = 587442035] Future Scheduled Test BREAST CANCER SCREENING [facility] [code = BREAST CANCER SCREENING] Future Scheduled Test COLONOSCOPY SCREENING [facility] [code = COLONOSCOPY SCREENING] Future Scheduled Test COVID-19 VACCINE ( - [facility] Moderna 2-dose series) [code = COVID-19 VACCINE (2 - Moderna 2-dose series)] Future Scheduled Test INFLUENZA VACCINE [code [facility] = INFLUENZA VACCINE] Encounters Start End Encounter Admission Attending Care Care Encounter Source Date/Time Date/Time Type Type Clinicians Facility Department ID 2021-09-08 Emergency [facility] [id number] Univers 21:01:20 ity [facility] 2021-08-26 Outpatient [facility] [id number] ID 10:37:07 Health 2021-08-09 Outpatient LINDA, [facility] [id number] ID 11:36:26 [facility] 2021-11-04 2021-11-04 Laboratory Only, Ang Db Test [facility] 1.2.8 40.114 [id number] Univers 16:15:00 16:30:00 Only Sandip Wright [facility] 350.1.13.10 [facility] 4.2.7.2.686 Reinaldo as BABS?BLEA [phone] [address] MEDICAL OFFICE BUILDING 2021-11-04 2021-11-04 Outpatient R [facility] [id number] Univers 16:15:00 16:15[facility] [id number] 2021-11-04 2021-11-04 Outpatient R KYLE [facility] [id number] Univers 16:15:00 16:15:00 SANDIP puente o f [facility] 2021-09-17 2021-09-17 Airborne And Air Delivery Specialist Ashley Nieves Lab Main [facility] 1.2.8 40.114 [id number] Univers 17:25:33 17:40:33 Visit Beau Romero 350.1.13.1 0 ity beto [place] [phone] [place] [address] Branch BUILDING 2021-09-17 2021-09-17 Outpatient R [facility] [id number] Univers 16:00:00 16:00:00 [id number] [facility] 2021-09-17 2021-09-17 [facility] [id number] Univers 16:00:00 16:00:00 [facility] 2021-09-17 2021-09-17 Orders Doctor FARFAN 1.2.840.114 [id number] Univers 00:00:00 00:00:00 Only Unassigned, CASSIE 350.1.13.10 ity of [facility] 4.2.7.2.686 Reinaldo as [id number] [address] 2021-08-29 2021-08-29 [facility] [id number] Univers 13:00:00 13:00:00 EMILY [id number] [facility] 2021-08-29 2021-08-29 Outpatient Cary ZABALA [facility] [id number] [facility] 13:00:00 13:00:00 EMILY [facility] 2021-08-26 2021-08-26 Office VERITO CURRAN 6400 1.2.356.511 [id number] ID 10:03:44 10:18:44 Visit GERALD DINERO 350.1.13.58 Health 9.2.7.2.686 [id number] 3 2021-08-16 2021-08-16 Travel 1.2.840.1 1.2.604.900 [id number] Methodi 00:00:00 00:00:[address] 3.430.2.7 0.2.7.3.698 Ho spita .3.946417 084.8 l .8 2021-08-13 2021-08-13 Travel 1.2.840.1 1.2.638.009 4028 596323 Methodi 00:00:00 00:00:[address] 3.430.2.7 0.2.7.3.698 Ho spita .3.853445 084.8 l .8 2021-08-12 2021-08-12 Office Charles 1.2.840.1 [id number] 1720 Methodi 08:43:45 10:09:31 Visit Tae Harris 41485.1.[address] 3.430.2.7 Hospit a .3.418230 l .8 2021-08-07 2021-08-07 Telephone Tl 1.2.840.1 [id number] 2099 [id number] Methodi 00:00:00 00:00:[address] Julius 3.430.2.7 Hospi ta .3.889992 l .8 2021-08-07 2021-08-07 Travel 1.2.840.1 1.2.369.887 7893 357359 Methodi 00:00:00 00:00:[address] 3.430.2.7 0.2.7.3.698 Ho spita .3.060276 084.8 l .8 2021-08-06 2021-08-06 Telephone Granger, 1.2.840.1 [id number] 2099 [id number] Methodi 00:00:00 00:00:[address] 3.430.2.7 Hospit a .3.510431 l .8 2021-08-02 2021-08-02 [facility], 1.2.840.1 [id number] 4602 Methodi 16:31:40 16:36:[address] 3.430.2.7 Hospit a .3.815226 l .8 2021-08-02 2021-08-02 [facility], 1.2.840.1 [id number] [address] [place] 00:00:00 00:00:00 Encounter TAE 96906.1.[address] .3.936132 .8 2021-08-02 2021-08-02 [facility], 1.2.840.1 [id number] 06396 [place] 00:00:00 00:00:00 Encounter TAE 52911.1.[address] .3.758919 .8 2021-08-02 2021-08-02 [facility], 1.2.840.1 [id number] 20065 [place] 00:00:00 00:00:00 Encounter TAE 75192.1.[address] .3.310606 .8 2021-08-02 2021-08-02 [facility], 1.2.840.1 [id number] 63683 [place] 00:00:00 00:00:00 Encounter TAE 10271.1.[address] .3.855485 .8 2021-08-02 2021-08-02 Travel 1.2.840.1 1.2.953.977 7010 805320 Methodi 00:00:00 00:00:[address] 3.430.2.7 0.2.7.3.698 Ho spita .3.348504 084.8 l .8 2021-07-31 2021-07-31 EXT [facility] Gwendolyn, EXT MSRDP 1.2.840.114 [id number] ID 00:00:00 00:00:00 [facility] LOCATION 350.1.13.58 Health 9.2.7.2.686 [id number] 0 2021-07-29 2021-07-29 Travel 1.2.840.1 1.2.215.072 0675 537560 Methodi 00:00:00 00:00:[address] 3.430.2.7 0.2.7.3.698 Ho spita .3.028580 084.8 l .8 2021-07-10 2021-07-10 Travel 1.2.840.1 1.2.372.096 0423 283012 Methodi 00:00:00 00:00:[address] 3.430.2.7 0.2.7.3.698 Ho spita .3.974622 084.8 l .8 2021-07-03 2021-07-03 [facility], 1.2.840.1 [id number] 8137 Methodi 13:57:58 16:40:55 Visit Tae Harris 60676.1.[address] 3.430.2.7 Hospit a .3.252130 l .8 2021-07-03 2021-07-03 Travel 1.2.840.1 1.2.396.710 6868 546962 Methodi 00:00:00 00:00:[address] 3.430.2.7 0.2.7.3.698 Ho spita .3.801431 084.8 l .8 2021-07-01 2021-07-01 Travel 1.2.840.1 1.2.820.782 7292 513917 Methodi 00:00:00 00:00:[address] 3.430.2.7 0.2.7.3.698 Ho spita .3.374956 084.8 l .8 2021-05-31 2021-05-31 Office Eduardo [facility] 1.2.840.114 [id number] [facility] 16:24:31 16:59:54 Visit Goyo Trinh 350.1.13.10 [facility] 4.2.7.2.686 Flavia Almendarezessio [phone] Sc [address] 2021-05-31 2021-05-31 Outpatient GOYO GILLIAM [facility] [id number] Univers 16:20:00 16:20:00 GOYO GILLIAM [id number] [facility] 2021-05-31 2021-05-31 Outpatient GOYO RODRIGUEZ [facility] [id number] Univers 16:20:00 16:20:00 GOYO GILLIAM [facility] 2021-05-27 2021-05-27 Outpatient Cary SIMMONS [facility] [id number] Univers 10:30:00 10:30:00 CECELIA [id number] [facility] 2021-05-27 2021-05-27 Outpatient Cary SIMMONS [facility] [id number] Univers 10:30:00 10:30:00 CECELIA ity of [facility] 2021-04-30 2021-04-30 Orders Doctor ADOLPH 1.2.840.114 [id number] Univers 00:00:00 00:00:00 Only Unassigned, CASSIE 350.1.13.10 ity of [facility] 4.2.7.2.686 Reinaldo as [phone] [facility] 009 Branch 2021-04-04 2021-04-04 Transition Rylie Clay 1.2.840.114 [id number] Univers 00:00:00 00:00:00 of Care Chelsey Mckeon 350.1.13.10 it y of [place] [phone] [facility] 403 Branch 2021-04-01 2021-04-03 Hospital Steven Maloney 1.2.840.1 14 [id number] Univers 19:39:00 16:59:00 Encounter Manuel Lambert 350.1. 13.10 ity of [facility] 4.2.7.2.686 [place] [id number] [facility] 094 Branch 2021-04-01 2021-04-01 Nurse ADOLPH Rutherford 1.2.198.202 6079 [id number] Univers 00:00:00 00:00:00 Triage Christian MATTHEWS 350.1.13.10 it y of [facility] 4.2.7.2.686 Reinaldo as [phone] [facility] 019 Branch 2021-03-19 2021-03-19 Outpatient R [facility] [id number] Univers 13:00:00 13:00:00 [id number] ity [facility] 2021-03-19 2021-03-19 Outpatient R GOYO GILLIAM [facility] [id number] Univers 13:00:00 13:00:00 GOYO GILLIAM itdenis [facility] 2021-03-04 2021-03-04 Office Eduardo IDMIROSLAVA 1.2.840.114 [id number] Univers 14:56:39 16:12:00 Visit Goyo Trinh 350.1.13.10 ity of [place] Profess[place] [phone] Me dical nal 092 [facility] 2021-03-04 2021-03-04 Outpatient GOYO RODRIGUEZ [facility] [id number] Univers 15:00:00 15:00:00 EDUARDO, GOYO [id number] [facility] 2021-03-04 2021-03-04 Outpatient Cary EDUARDOGOYO HARTLEY [facility] [id number] Univers 15:00:00 15:00:00 EDUARDOGOYO Apodaca [facility] 2021-03-04 2021-03-04 Orders Doctor FARFAN 1.2.840.114 [id number] Univers 00:00:00 00:00:00 Only Unassigned, CASSIE 350.1.13.10 ity of [facility] 4.2.7.2.686 Reinaldo as [phone] [facility] 00[address] [place] 2021-02-20 2021-02-20 Orders Doctor FARFAN 1.2.840.114 [id number] Univers 00:00:00 00:00:00 Only Unassigned, CASSIE 350.1.13.10 ity of [facility] 4.2.7.2.686 Reinaldo as [phone] [facility] 00[address] [place] 2021-01-23 2021-01-23 Outpatient MIN [facility] [id number] Univers 14:00:00 14:00:00 BALJIT [facility] 2021-01-19 2021-01-19 [facility] 1.2.840.114 [id number] Univers 00:00:00 00:00:00 Outreach Baljit PRIMARY 350.1.13.10 i ty of [place] [id number] Sc dical [address] 2021-01-19 2021-01-19 Patient Min [facility] 1.2.840.114 [id number] 00:00:00 00:00:00 Outreach Baljit PRIMARY 350.1.13.10 [place] C[place] 4.2.7.2.686 PAVILLION [id number] 388 2021-01-17 2021-01-17 Orders Debra Roman2.840.1 [id number] 7285 Methodi 00:00:00 00:00:00 Only Dori 12568.1.[address] 3.430.2.7 Hospit a .3.260425 l .8 2021-01-03 2021-01-03 Orders Ramon, 1.2.840.1 [id number] 865 [id number] Methodi 00:00:00 00:00:00 Only Aimee 08444.1.[address] 3.430.2.7 Hospit a .3.161577 l .8 2021-01-03 2021-01-03 Telephone Charles, 1.2.840.1 [id number] 2099 [id number] Methodi 00:00:00 00:00:00 Tae Harris 67889.1.[address] 3.430.2.7 Hospit a .3.354904 l .8 2021-01-02 2021-01-02 Office Granger, 1.2.840.1 [id number] 098105 7223 Methodi 11:18:16 12:06:52 Visit Tae Harris 61945.1.[address] 3.430.2.7 Hospit a .3.362843 l .8 2021-01-02 2021-01-02 Travel 1.2.840.1 1.2.518.560 2479 335431 Methodi 00:00:00 00:00:[address] 3.430.2.7 0.2.7.3.698 Ho spita .3.383857 084.8 l .8 2020-12-27 2020-12-27 Travel 1.2.840.1 1.2.352.985 9323 009945 Methodi 00:00:00 00:00:[address] 3.430.2.7 0.2.7.3.698 Ho spita .3.669558 084.8 l .8 2020-12-19 2020-12-19 Orders Ramon, 1.2.840.1 [id number] 586 [id number] Methodi 00:00:00 00:00:00 Only Aimee 13500.1.[address] 3.430.2.7 Hospit a .3.699643 l .8 2020-12-19 2020-12-19 Orders Abel, 1.2.840.1 [id number] 2022 Methodi 00:00:00 00:00:00 Only Dori 16466.1.[address] 3.430.2.7 Hospit a .3.950702 l .8 2020-12-17 2020-12-17 Telephone Ramon, 1.2.840.1 [id number] 2 [id number] Methodi 00:00:00 00:00:[address] 3.430.2.7 Hospit a .3.796115 l .8 2020-12-17 2020-12-17 Travel 1.2.840.1 1.2.113.938 8989 381708 Methodi 00:00:00 00:00:[address] 3.430.2.7 0.2.7.3.698 Ho spita .3.873966 084.8 l .8 2020-12-15 2020-12-15 Telephone Cameron, 1.2.840.1 [id number] 782 [id number] Methodi 00:00:00 00:00:[address] 3.430.2.7 Hospit a .3.794032 l .8 2020-12-13 2020-12-14 [facility], 1.2.840.1 [id number] 35369 08351 Methodi 07:03:00 17:24:00 Encounter Tae Harris 76912.1.[address] 3.430.2.7 Hospit a .3.503165 l .8 2020-12-13 2020-12-13 Anesthesia Baljit Muñoz 1.2.840 .1 [id number] Methodi 12:32:00 15:20:00 Event Omaira Li 91914.1.[address] 3.430.2.7 Hospit a .3.096574 l .8 2020-12-13 2020-12-13 Surgery Granger, 1.2.840.1 [id number] [id number] 3110 Methodi 11:30:00 15:05:00 Tae Harris 24072.1.[address] 3.430.2.7 Hospit a .3.145760 l .8 2020-12-13 2020-12-13 Telephone [place], 1.2.840.1 [id number] 2099 219545 Methodi 00:00:00 00:00:00 Tae Harris 70755.1.[address] 3.430.2.7 Hospit a .3.889075 l .8 2020-12-13 2020-12-13 Orders Granger, 1.2.840.1 [id number] 987604 9540 Methodi 00:00:00 00:00:00 Only Tae Harris 20541.1.[address] 3.430.2.7 Hospit a .3.738693 l .8 2020-12-13 2020-12-13 Travel 1.2.840.1 1.2.562.797 8690 750850 Methodi 00:00:00 00:00:[address] 3.430.2.7 0.2.7.3.698 spita .3.695229 084.8 l .8 2020-12-12 2020-12-12 Telephone [place], 1.2.840.1 [id number] 2099 304276 Methodi 00:00:00 00:00:00 Tae Harris 20362.1.[address] 3.430.2.7 Hospit a .3.827609 l .8 2020-12-11 2020-12-11 Pre-Admiss [place], 1.2.840.1 [id number] 989 [id number] Methodi 11:04:20 12:04:20 ion Tae Harris 58999.1.[address] Testing 3.430.2.7 Hospit a .3.247898 l .8 2020-12-11 2020-12-11 Pre-Admiss 1.2.840.1 [id number] 915 7906043 Methodi 10:30:00 11:30:[address] Testing 3.430.2.7 Hospit a .3.780115 l .8 2020-12-11 2020-12-11 Travel 1.2.840.1 1.2.198.636 6851 274814 Methodi 00:00:00 00:00:[address] 3.430.2.7 0.2.7.3.698 Ho spita .3.646192 084.8 l .8 2020-12-04 2020-12-04 Orders Ramon, 1.2.840.1 [id number] 091 [id number] Methodi 00:00:00 00:00:00 Only Aimee 70414.1.[address] 3.430.2.7 Hospit a .3.745577 l .8 2020-12-04 2020-12-04 Travel 1.2.840.1 1.2.772.069 3512 777189 Methodi 00:00:00 00:00:[address] 3.430.2.7 0.2.7.3.698 Ho spita .3.846563 084.8 l .8 2020-11-21 2020-11-21 Orders Ramon, 1.2.840.1 [id number] 577 [id number] Methodi 00:00:00 00:00:00 Only Aimee 49679.1.[address] 3.430.2.7 Hospit a .3.471202 l .8 2020-11-20 2020-11-20 Pre-Admiss [place]anger, 1.2.840.1 [id number] 972 5340504 Methodi 13:30:00 14:30:00 ion Tae Campbell. 06900.1.[address] Testing 3.430.2.7 Hospit a .3.930338 l .8 2020-11-20 2020-11-20 Travel 1.2.840.1 1.2.564.196 5797 329994 Methodi 00:00:00 00:00:[address] 3.430.2.7 0.2.7.3.698 Ho spita .3.134782 084.8 l .8 2020-11-20 2020-11-20 Telephone Shabnamgoranalisia, 1.2.840.1 [id number] 2 [id number] Methodi 00:00:00 00:00:[address] 3.430.2.7 Hospit a .3.205762 l .8 2020-11-13 2020-11-13 Orders Abel, 1.2.840.1 [id number] 224490 0389 Methodi 00:00:00 00:00:00 Only Dori 79888.1.[address] 3.430.2.7 Hospit a .3.832981 l .8 2020-11-06 2020-11-06 Beverly Charles, 1.2.840.1 [id number] 2100 003550 Methodi 00:00:00 00:00:00 Tae [address]wart 23459.1.[address] 3.430.2.7 Hospit a .3.766944 l .8 2020-10-24 2020-10-24 [facility], 1.2.840.1 [id number] 995761 0849 Methodi 12:58:09 13:58:27 Visit Tae CampbellStewart 44442.1.[address] 3.430.2.7 Hospit a .3.754190 l .8 2020-10-24 2020-10-24 Travel 1.2.840.1 1.2.014.287 0965 744093 Methodi 00:00:00 00:00:[address] 3.430.2.7 0.2.7.3.698 Ho spita .3.963287 084.8 l .8 2020-10-17 2020-10-17 [facility], 1.2.840.1 [id number] 75078 97923 Methodi 12:05:45 23:59:00 Encounter Tae Walker.1.[address] 3.430.2.7 Hospit a .3.766533 l .8 2020-10-17 2020-10-17 [facility], 1.2.840.1 [id number] 426424 6276 Methodi 13:32:52 13:37:[address] 3.430.2.7 Hospit a .3.292678 l .8 2020-10-17 2020-10-17 [facility], 1.2.840.1 [id number] 79183 15153 Methodi 09:42:51 12:04:00 Encounter Tae Walker.1.[address] 3.430.2.7 Hospit a .3.303211 l .8 2020-10-17 2020-10-17 [facility], 1.2.840.1 [id number] 86550 44435 Methodi 08:35:22 09:41:00 Encounter Tae Blake50.1.[address] 3.430.2.7 Hospit a .3.025034 l .8 2020-10-17 2020-10-17 [facility], 1.2.840.1 [id number] 34166 74539 Methodi 08:30:00 08:34:00 Encounter Tae Blake50.1.[address] 3.430.2.7 Hospit a .3.730471 l .8 2020-10-17 2020-10-17 Travel 1.2.840.1 1.2.060.202 2683 234603 Methodi 00:00:00 00:00:[address] 3.430.2.7 0.2.7.3.698 Ho spita .3.888520 084.8 l .8 2020-10-10 2020-10-10 [facility], 1.2.840.1 [id number] Methodi 13:23:54 14:33:23 Visit Tae Harris 10382.1.[address] 3.430.2.7 Hospit a .3.999314 l .8 2020-10-10 2020-10-10 Travel 1.2.840.1 1.2.650.157 4515 [id number] Methodi 00:00:00 00:00:[address] 3.430.2.7 0.2.7.3.698 Ho spita .3.880047 084.8 l .8 2020-10-01 2020-10-01 Travel 1.2.840.1 1.2.655.494 9097 928607 Methodi 00:00:00 00:00:[address] 3.430.2.7 0.2.7.3.698 Ho spita .3.681074 084.8 l .8 2020-09-28 2020-09-28 Outpatient U [facility]32 4 [facility] 15:16:00 19:15:00 KRAIG 2020-09-26 2020-09-27 Emergency E LASHAWN BOLES [facility]BL [facility]BL 7503 MHBL 18:28:00 01:35:00 2020-09-24 2020-09-24 Laboratory Lab, [facility] Fam Pob I [facility] 1.2. 840.114 [id number] Univers 18:30:16 18:50:16 Only [place], [facility] 350.1.13.10 ity of [place] 4.2.7.2.686 [place] Professio [phone] Sc dical nal [address] 2020-09-24 2020-09-24 Laboratory Lab, [facility] 1.2.840.114 [id number] 18:30:16 18:50:16 Only Fam Pob I Health 350.1.13.10 [place] 4.2.7.2.686 Professio [phone] nal [address] 2020-09-24 2020-09-24 Outpatient R [facility] [id number] -[id number] [facility] 18:40:00 18:40:00 [id number] ity [facility] 2020-09-24 2020-09-24 Outpatient R [facility] [id number] [id number] [facility] 18:40:00 18:40:00 TONA ity [facility] 2020-09-24 2020-09-24 Travel 1.2.840.1 1.2.343.317 7440 [id number] Methodi 00:00:00 00:00:[address] 3.430.2.7 0.2.7.3.698 Ho spita .3.134369 084.8 l .8 2020-09-19 2020-09-19 Orders Doctor FARFAN 1.2.840.114 [id number] 00:00:00 00:00:00 Only Unassigned, CASSIE 350.1.13.10 ity of [facility] 4.2.7.2.686 Reinaldo as [phone] [address] 2020-09-19 2020-09-19 Orders Doctor ADOLPH 1.2.840.114 [id number] 24 00:00:00 00:00:00 Only Unassigned, CASSIE 350.1.13.10 [facility] 4.2.7.2.686 [phone] [facility] 2020-09-06 2020-09-06 Travel 1.2.840.1 1.2.047.442 9911 713839 Methodi 00:00:00 00:00:[address] 3.430.2.7 0.2.7.3.698 Ho spita .3.760271 084.8 l .8 2020-09-05 2020-09-05 Case Jaime [facility] 1.2.696.595 0942 6007 [facility] 00:00:00 00:00:00 Management Annika Trinh 350.1.13.10 ity [place] [phone] [address] 2020-09-05 2020-09-05 Case Jaime [facility] 1.2.740.536 3757 6007 00:00:00 00:00:00 Management Annika Trinh 350.1.13.10 [place] 4.2.7.2.686 Professio [phone] [address] 2020-09-04 2020-09-04 Travel 1.2.840.1 1.2.998.259 5152 [id number] Methodi 00:00:00 00:00:[address] 3.430.2.7 0.2.7.3.698 Ho spita .3.585376 084.8 l .8 2020-08-30 2020-08-30 [facility] 1.2.255.069 3487 6935 Univers 14:45:50 15:47:54 Visit Annika Trinh 350.1.13.10 i [place] [phone] Me dical [address] [address] 2020-08-30 2020-08-30 Outpatient [facility] [id number] Univers 14:30:00 14:30:00 ANNIKA [id number] [facility] 2020-08-30 2020-08-30 [facility] [id number] Univers 14:30:00 14:30:00 [facility] 2020-08-30 2020-08-30 Orders Doctor ADOLPH [id number] Univers 00:00:00 00:00:00 Only Unassigned, CASSIE 350.1.13.10 ity of Abrams [facility] 4.2.7.2.686 Reinaldo as [phone] [address] 2020-04-24 2020-04-25 Emergency E AZNAUROVA-A MHBL MHBL 7502 MHBL 21:30:00 03:03:00 JOSEPH RUTHERFORD 2020-03-19 2020-03-22 Inpatient U LUIS, [facility] CAR [id number] MH 04:07:00 15:45:00 KELLI 2020-03-19 2020-03-19 Emergency E DIANA MHBL MHBL 7501 MHBL 00:18:00 03:25:00 , MICHELINE 2020-03-18 2020-03-18 Nurse Isabell Diaz [id number] Univers 00:00:00 00:00:00 Triage CASSIE 350.1.13.10 it [facility] 4.2.7.2.686 Reinaldo as [phone] [place] [id number] [address] 2019-08-03 2019-08-03 Outpatient [facility] 7500 [facility] 10:08:00 10:08:00 Results Test Description Test Time Test Comments Results Result Comments Source Joint fluid culture 2021-08-07 03:24:41 Test Item Value Reference Range Interpretation Comme nts Joint fluid culture No growth after 4 Spe cimen InformationSpecimen isolate (test code = days. [facility]: 1634) PLEASE HOLD FOR 21 DAYS [facility] WorthAnaerobic afosiom4535-80-00 14:08:12 Test Item Value Reference Range Interpretation Comments Anaerobic No anaerobic Specimen culture isolate organisms InformationS pecimen (test code = isolated. Source: Joint 552) FluidSpecimen S ite: PLEASE HOLD FOR 21 DAYS [facility] Fort WorthFungus [id number] 18:30:51 Test Item Value Reference Range Interpretation Comments Fungus smear No fungi Specimen (test code = observed. InformationSpec imen Source: 1443) Joint Fl[facility]Spec [facility] Site: PLEASE HOLD FOR 21 DAYS [facility] Fort WorthAFB [id number] 16:04:26 Test Item Value Reference Range Interpretation Comments AFB stain No acid fast Specimen (test code = bacilli (AFB) InformationSpe [facility] 676-7) seen. Source: [facility] S ite: PLEASE HOLD FOR 21 DAY S [facility] WorthGram viwak5835-25-15 03:53:00Gram stain isolateRare WBC'sNo organisms seen Comment: Specimen InformationSpecimen Source: [facility] Site: PLEASE HOLD FOR 21 DAYS [facility] HospitalCell count and differential, body [id number] 02:59:47 Test Item Value Reference Range Interpretation Comments Misc fluid type (test JOINT FLUID code = 04150-9) Color, fluid (test Red code = 6824-7) Appearance, fluid Clear (test code = 9335-1) RBC, fluid (test code See_Comment DISREG AMPARO PREVIOUS = 83156-9) RESULTS, WERE AUTOMATED (QUESTIONABLE); THEREFORE A MAN UAL COUNT WAS PERFORMED,AND M ANUAL COUNT CORRELATE D. Corrected resul t; previously repo rted as [phone] on 08/02/2021 at 1 7:19 by [id number] REPORT, Previou sly reported as: ND EVIOUS RESULTS WERE AUTOMATED (QUESTIONABLE), THEREFORE A [...] fluid (test code = previousl y reported 28985-4) as 1500 on 07/11 at 17:19 by PEC 3 [Automated mess age] The system Behind the Burner h generated this result transmitted ref erence range: /CMM. Th e reference range was not used to int erpret this result as normal/abnormal . Fluid mononuclear 2/CMM cell (test code = 1407) SHEILA (test code = SHEILA) right knee [facility] Bone Scan 3 [id number] 23:08:01PROCEDURE: ME BONE SCAN 3 PHASE CLINICAL HISTORY: Z98.890 Other specified postprocedural states, M25.511 Pain in right shoulder, to rule out infection COMPARISON: Three-phase bone scan of the chest 10/17/2020; CT right upper extremity today TECHNIQUE: 25 millicuries of snoduynjnx-62m-KFR were administered IV, followed by blood flow [...] instead represents loosening associated with nonspecific inflammation/hyperemia. [facility]- [id number] Interface, Radiology Results Incoming - 08/02/2021 6:11 PM CDT PROCEDURE: NM BONE SCAN 3 PHASECLINICAL HISTORY: Z98.890 Other specified postprocedural states, M25.511 Pain in right shoulder, to rule out infectionCOMPARISON: Three- phase bone scan of the chest 10/17/2020; CT right upper extremity todayTECHNIQUE: 25 millicuries of jbeyiuxvuj-35s-QJG were administered IV, followed by blood flow [...] instead represents loosening associated with nonspecific inflammation/hyperemia. [facility]-[id number] Rad Needle Tewcxbxnjk6681-86-11 21:27:06 EXAMINATION: FL RAD NEEDLE ASPIRATION CLINICAL HISTORY: Z98.890 Other [...] IMPRESSION: Successful fluoroscopic guided right shoulder aspiration. [id number] Interface, Radiology Results - 08/02/2021 4:30 PM [...] no immediate complications.IMPRESSION:Successful fluoroscopic guided right shoulder aspiration.[id number]-[id number] HospitalCT Upper Extremity Wo Uuchr6279-67-94 19:38:05EXAMINATION: CT UPPER EXTREMITY WO RIGHT CLINICAL [...] collections or masslike lesions along the prosthesis. [id number] Interface, Radiology Results Incoming - 08/02/2021 2:41 [...] fluid collections or masslike lesions along the prosthesis.OPC-[id number] HospitalURINE [id number] 12:12:15 Test Item Value Reference Range Interpretation Comments URINE CULTURE (test < 10,000 CFU/mL mixed code = 630-4) aerobic organisms - suggests endogenous microbial contamination [facility] METABOLIC PANEL (NA, K, CL, CO2, GLUCOSE, BUN, CREATININE, CA)2021-04-03 11:03:41 Test Item Value Reference Range Interpretation Comments NA (test code = 136 mmol/L 135-145 8500709923) K (test code = 4.5 mmol/L 3.5-5.0 Slight 7907398299) hemolysis CL (test code = 94 mmol/L 98-108 L 7258111714) CO2 TOTAL (test code 38 mmol/L 23-31 H = 5648153424) AGAP (test code = 2-16 5664689004) BUN (test code = 28 mg/dL 7-23 H Slight 6598390085) hemolysis GLUCOSE (test code = 119 mg/dL 70-110 H 0142887678) CREATININE (test code 0.73 mg/dL 0.50-1.04 = 1516069342) CALCIUM (test code = 8.8 mg/dL 8.6-10.6 7723475717) eGFR (test code = mL/min/1.73m2 4405025248) SHEILA (test code = SHEILA) Association of [...] tests). Lab Interpretation Abnormal (test code = 57750-4) [facility] CenterElectro[facility] (EEG) - Duration of test: 20-60 mins; Release to patient: Xlmnhaagj3297-80-07 00:00:00Date and Time of Procedure: 04/03/2021, 08:40 [...] written. Gibran Dickens MD Date of interpretation: 04/03/2021UnHouston [facility] HospitalN-TERMINAL [id number] 20:24:03 Test Item Value Reference Range Interpretation Comments NT-proBNP (test code 218 pg/mL See_Comment H [Autom ated = 0468533503) message] The system which generated this result transmitted reference range : <=125. The reference range was not used to interpret this result as normal/abnormal . SHEILA (test code = SHEILA) Biotin has been reported to cause a negative bias, interpret results relative to patient's use of biotin. Lab Interpretation Abnormal (test code = 44810-9) [facility] CenterXR CHEST 1 [id number] 13:04:48 No acute cardiopulmonary abnormality. Preliminary Report [...] total rightshoulder arthroplasty. Cholecystectomy clips are present. [facility], Radiant Results Inft User - 04/02/2021 8:05 [...] reviewed this study and agree with theabove report.[facility] CenterAC PANEL 20 + LACTIC [id number] 03:36:51 Test Item Value Reference Range Interpretation Comments PH (test code = 2) 7.35-7.45 L PCO2 (test code = See_Comment H [Automat ed 3955101886) message] The sy stem which generated this result transmitted reference range : 35 - 45 mmHg. The reference range was not used to interpret this result as normal/abnormal . PO2 (test code = See_Comment L [Automated 8601012452) message] The sy stem which generated this result transmitted reference range : 80 - 100 mmHg. The reference range was not used to interpret this result as normal/abnormal . HCO3 (test code = See_Comment H [Automate d 5363614451) message] The sy stem which generated this result transmitted reference range : 22 - 26 mEq/L. The reference range was not used to interpret this result as normal/abnormal . BE (test code = See_Comment [Automated 0006006573) message] The sy stem which generated this result transmitted reference range : -3.0 - 3.0 mEq/ L. The reference r kendell was not used to interpret this result as normal/abnormal . THB (test code = 14.2 g/dL 12.0-16.0 0510436957) %O2HB (test code = 89.4 % 94.0-99.0 L 3818968798) %COHB ART (test code = 4.8 % 0.0-1.5 H 6271417958) %METHB ART (test code = 0.3 % 0.4-1.5 L 5018205658) VOL%O2 ART (test code = 17.9 % 15.0-23.0 6303273417) NA (test code = 135 mmol/L 135-145 1432253292) K+ (test code = 4.3 mmol/L 3.5-5.0 9902090376) AC CA IONZ (test code = 4.60 mg/dL 4.50-5.30 9161988441) GLUCOSE (test code = 95 mg/dL 70-110 4608100654) LACTIC ACID (test code 0.78 mmol/L 0.50-2.20 = 1906948255) Lab Interpretation Abnormal (test code = 47251-5) [facility] CenterETHANOL2021-05-25 03:05:08 Test Item Value Reference Range Interpretation Comments ALCOHOL (test code = <10 mg/dL 5964355300) SHEILA (test code = SHEILA) <10 Wmygpivb77-142 Toxic>100 Depression of CERAMIC TILE SETTER>400 Fatalities Reported [facility] CenterTropoashan [id number] 02:35:56 Test Item Value Reference Range Interpretation Comments TROPONIN I (test <0.012 See_Comment [Automated code = 2398444374) message] The system which generated this result [...] ? Lab Interpretation Normal (test code = 18042-0) [facility] CenterURINE DRUG (IMMUNOASSAY) - COMPREHENSIVE DRUG [id number] 02:32:35 Test Item Value Reference Range Interpretation Comments AMPHET (test code = Negative Negative 9094359275) GENNARO U (test code = Negative Negative 5737659531) BENZO U (test code = Negative Negative 3510147208) Cocaine Metabolite (test Negative Negative code = 9670888022) METHADONE (test code = Negative Negative 6861699847) OPIATES (test code = Presumptive Positive Negative A 8017263952) PCP (test code = Presumptive Positive Negative A 4491919429) THC (test code = Negative Negative 9543235354) SHEILA (test code = SHEILA) Urine Drug [...] testing). Lab Interpretation (test Abnormal code = 61211-1) [facility] CenterCOVID-19 (ID NOW RAPID TESTING)2021-04-02 02:30:32 Test Item Value Reference Range Interpretation Comments SARS-CoV-2 Rapid ID NOW Not Detected Not Detected (test code = 26649-6) SHEILA (test code = SHEILA) ID NOW COVID-19 Assay is an isothermal nucleic acid amplification test intended for the qualitative detection of nucleic acid from SARS-CoV-2 viral RNA in nasopharyngeal (SYSTEM TRAINER) specimens. It is used under Emergency Use [...] indicated. Lab Interpretation Normal (test code = 25002-2) [facility] CenterBag[facility] Met[facility] Panel (NA, K, CL, CO2, GLUCOSE, BUN, CREATININE, CA)2021-04-02 02:24:48 Test Item Value Reference Range Interpretation Comments NA (test code = 136 mmol/L 135-145 9889496743) K (test code = 4.9 mmol/L 3.5-5.0 9291251848) CL (test code = 96 mmol/L 98-108 L 2217934876) CO2 TOTAL (test code = 31 mmol/L 23-31 3367020560) AGAP (test code = 2-16 7285613933) BUN (test code = 43 mg/dL 7-23 H 7177263164) GLUCOSE (test code = 96 mg/dL 70-110 4464669672) CREATININE (test code = 0.92 mg/dL 0.50-1.04 6452201294) CALCIUM (test code = 9.4 mg/dL 8.6-10.6 5557922063) eGFR (test code = mL/min/1.73m2 8431678653) SHEILA (test code = SHEILA) Association of [...] tests). Lab Interpretation Abnormal (test code = 15259-0) [facility] CenterHepatic Function Panel (ALB, T.PRO, BILI T, BU/BC, ALT, AST, ALK PHOS)2021-04-02 02:24:48 Test Item Value Reference Range Interpretation Comments TOTAL BILI (test code = 2156706689) 0.7 mg/dL 0.1-1.1 BILI UNCON (test code = 8126313377) 0.4 mg/dL 0.1-1.1 BILI CONJ (test code = 3743952301) 0.0 mg/dL 0.0-0.3 T PROTEIN (test code = 9622611392) 6.8 g/dL 6.3-8.2 ALBUMIN (test code = 1721231063) 4.4 g/dL 3.5-5.0 ALK PHOS (test code = 0433673937) 85 U/L 34-122 ALTv (test code = 1742-6) 27 U/L 5-35 AST(SGOT) (test code = 7655686386) 53 U/L 13-40 H Lab Interpretation (test code = Abnormal 72145-3) [facility] CenterCT HEAD WO [id number] 02:03:35 No acute intracranial findings. Left occipital [...] base intact. Mild ethmoid air cell mucosalthickening. [facility], Radiant Results Inft User - 04/01/2021 [...] the leftcerebellum. Correlation with prior surgical history suggested.[facility] CenterUrinalysis2021-05-25 01:59:54 Test Item Value Reference Range Interpretation Comments APPEARANCE (test code = Clear Clear 9335115417) COLOR (test code = Yellow Yellow 9726331063) PH (test code = 4.8-8.0 3449388082) SP GRAVITY (test code = 1.003-1.030 9535464669) GLU U QUAL (test code = Normal Normal 1052684111) BLOOD (test code = Negative Negative 1869634122) KETONES (test code = Negative Negative 2668483512) PROTEIN (test code = Negative Negative 2887-8) UROBILIN (test code = Normal Normal 6382004608) BILIRUBIN (test code = 2 mg/dL Negative A 6636270779) NITRITE (test code = Negative Negative 5596347515) LEUK MERYL (test code = 250/uL Negative A 5016527173) RBC/HPF (test code = See_Comment [Autom ated message] 1440620332) The system [employer] generated this result transmitted ref erence range: 0 - 3 HP F. The reference range was not used to int erpret this result as normal/abnormal . WBC/HPF (test code = See_Comment H [Autom ated message] 4956960805) The system [employer] generated this result transmitted ref erence range: 0 - 5 HP F. The reference range was not used to int erpret this result as normal/abnormal . BACTERIA (test code = Few Negative A 8034828481) MUCOUS (test code = Slight Negative LPF A 8089593164) SQ EPITH (test code = HPF 3999605473) HYAL CAST (test code = See_Comment [Aut omated message] 1251484745) The system [employer] generated this result transmitted ref erence range: <=2 LPF. The reference range was not used to int erpret this result as normal/abnormal . Lab Interpretation (test Abnormal code = 83594-5) [facility] CenteraPTT2021-05-25 01:49:53 Test Item Value Reference Range Interpretation Comments APTT Patient (test See_Comment [Automat ed code = 3173-2) message] The system which generated this result transmitted reference range : 23 - 38 Seconds . The reference range was not used to interpr et this result as normal/abnormal . SHEILA (test code = SHEILA) The [facility] patient population mean normal value for aPTT is 30 seconds. Lab Interpretation Normal (test code = 23352-0) [facility] CenterProthrombin Time (PT) / [id number] 01:47:51 Test Item Value Reference Range Interpretation Comments PROTIME PATIENT (test See_Comment [Auto mated message] code = 5964-2) The system wh ich generated this result transmitted ref erence range: 12.0 - 1 4.7 Seconds. The re ference range was not u sed to interpret this result as normal/abnor mal. INR (test code = 6301-6) Nor mal INR <1.1; Warfarin Therap eutic range 2.0 to 3. 0 or 2.5 to 3.5, dep ending upon the indica tions. Lab Interpretation (test Normal code = 76705-4) [facility] CenterCB with Ascgnwideiew2732-32-90 01:38:27 Test Item Value Reference Range Interpretation Comments WBC (test code = See_Comment [Automated 0390-2) message] The sy stem which generated this result transmitted reference range : 4.30 - 11.10 10*3/?L. The reference range was not used to interpret this result as normal/abnormal . RBC (test code = See_Comment [Automated 329-8) message] The sy stem which generated this [...] RDW-SD (test code = 44.2 fL 39.0-49.9 62029-9) RDW-CV (test code = 12.5 % 12.0-15.5 788-0) PLT (test code = See_Comment [Automated 777-3) message] The sy stem which generated this result transmitted reference range : 166 - 358 10*3/ ?L. The reference r kendell was not used to interpret this result as normal/abnormal . MPV (test code = 9.4 fL 9.5-12.9 L 94525-2) NRBC/100 WBC (test See_Comment [Automat ed code = 1951653338) message] The system which generated this result transmitted reference range : 0.0 - 10.0 /100 WBCs. The refer ence range was not u sed to interpret th is result as normal/abnormal . NRBC x10^3 (test code <0.01 See_Comment [Auto mated = 2166272723) message] The s ystem which generated this result transmitted reference range : 10*3/?L. The reference range was not used to interpret this result as normal/abnormal . GRAN MAT (NEUT) % 63.0 % (test code = 770-8) IMM GRAN % (test code 0.10 % = 6470873691) LYMPH % (test code = 21.2 % 736-9) MONO % (test code = 8.0 % 5905-5) EOS % (test code = 7.1 % 713-8) BASO % (test code = 0.6 % 706-2) GRAN MAT x10^3(ANC) 6.08 10*3/uL 1.88-7.09 (test code = 1049557771) IMM GRAN x10^3 (test <0.03 0.00-0.06 code = 6483801475) LYMPH x10^3 (test code 2.04 10*3/uL 1.32-3.29 = 731-0) MONO x10^3 (test code 0.77 10*3/uL 0.33-0.92 = 742-7) EOS x10^3 (test code = 0.68 10*3/uL 0.03-0.39 H 711-2) BASO x10^3 (test code 0.06 10*3/uL 0.01-0.07 = 704-7) Lab Interpretation Abnormal (test code = 35464-4) [facility] fuwvrdu6464-55-20 23:47:47 Test Item Value Reference Range Interpretation Comments Case number (test code = [id number]) Surgical pathology See link below for report (test code = PDF Lab Report 4552) Result status (test code This is Final Report = [id number]) for [id number] [facility]istAtl[facility] Rehabilitation InstituteNspesdocErxdmb9217-03-61 19:25:07Himanshu Ludwig CRNA 12/13/2020 1:28 [address]: [...] RSI: No Number of Attempts at Approach: 1[facility] HospitalPer[facility] Ujuxs7971-70-47 17:53:19Baljit Muñoz MD 12/13/2020 11:54 AMPeripheral Block [...] Infiltration (SeeMAR for details): LidocaineNeedle: Needle Type: Pajunk Needle Gauge: 19 G [...] complications, patient comfortable and patient tolerated [facility] cvbvseg8447-12-28 01:59:29 Test Item Value Reference Range Interpretation Comments Urine culture Mixed roseanna Specimen isolate (test <=10-3 col/cc InformationSp ecimen code = 75700-5) Source: Urin eSpecimen Site: Clean cat [facility] CenterCOVID-19 qualitative IQA1456-39-01 01:20:42 Test Item Value Reference Range Interpretation Comments Interpretation (test Negative results do code = 3837391) not preclude 2019-nCoV infection and should not be used as the sole basis for treatment or other patient management decisions. Negative results must be combined with clinical observations, patient history, and epidemiological information. COVID-19 qualitative Not-Detected Not-Detected RT-PCR result (test code = 42452-7) COVID-19 qualitative See link below for C ase Number: RT-PCR (test code = PDF Lab Report [id number]) [facility] Pre/Post [id number] 01:07:29 Test Item Value Reference Range Interpretation Comments Ventricular rate (test code = 253) Atrial rate (test code = 255) ND interval (test code = 266) QRSD interval [...] Turner MD (6837) on 12/11/2020 7:07:27 PM [facility]istAtl[facility] Rehabilitation InstituteAFB zrjnkxy3827-18-05 06:13:39 Test Item Value Reference Range Interpretation Comments AFB culture No growth Specimen isolate (test after 6 weeks InformationSp ecimen code = 543-9) of Source: Joint incubation. FluidSpecimen S ite: RIGHT SHOULDER/ASPIRA TION [facility] HospitalFungus bblmwyx1262-79-56 06:15:29 Test Item Value Reference Range Interpretation Comments Fungus culture No growth Specimen isolate (test after 4 weeks InformationSp ecimen code = 1441) of Source: Joint incubation. FluidSpecimen S ite: RIGHT SHOULDER/ASPIRA TION [facility]ucianist HospitalCONSENT TO CONTACT FOR VOLUNTARY [id number] 19:43:51 Test Item Value Reference Range Interpretation Comments Consent To Contact For Voluntary Yes Research (test code = 4947) [facility]"
[2021-11-14 07:37] LABS: Urine Blood Negative (Negative); Urine Glucose Negative (Negative); Urine Protein Negative (Negative)
[2021-11-14] MEDS ORDERED: LIDOCAINE 1% MPF 2 ML AMPULE ONE (08:00)
[2021-11-14] MEDS ORDERED: HYDROMORPHONE HCL 2 MG/ML inj ONE (08:00)
[2021-11-14] MEDS ORDERED: CEFTRIAXONE 1000 MG/VIAL ONE (08:01)
[2021-11-14] MEDS ORDERED: ONDANSETRON 4 MG (ODT) TAB ONE (08:01)
--- NOTE | 2021-11-14 08:21 | EDPHYS ---
Physician Documentation [facility] Name: Betsey Martel Age: 56 yrs Sex: Female : 1965 Arrival Date: 11/14/2021 Time: 07:09 Bed 7 Private MD: ED Physician Elly Jacinto HPI: 11/14 07:44 This 56 yrs old Female presents to ER via Ambulatory with complaints of Right flank ma2 pain for 1 day,. 07:44 Onset: The symptoms/episode began/occurred gradually, 1 day(s) ago. Associated signs ma2 and symptoms: Pertinent negatives: constipation, dysuria, hematuria, numbness, tingling, vomiting, weakness. Severity of symptoms: At their worst the symptoms were mild, in the emergency department the symptoms are unchanged. The patient has experienced similar episodes in the past, Had right pyelonephritis in the past.. Historical: - Allergies: 07:25 Cymbalta; vg1 07:25 Seroquel; vg1 - Home Meds: 07:25 carvedilol Oral [Active]; vg1 - PMHx: 07:25 Anemia; BRAIN TUMOR 1996; CHF; Chronic pain; degenerative bone disease; Depression; vg1 ETHO INTOXICATION; ETOH; GERD; Hip Pain; Hypertension; Hypothyroidism; kidney disease; osteoarthritis; Rheumatoid Arthritis; THORACIC AORTIC ANEURYSM; - Immunization history:: Client reports receiving the 2nd dose of the Covid vaccine. - Social history:: Smoking status: Patient reports the use of cigarette tobacco products, smokes one-half pack cigarettes per day. - Family history:: not pertinent. ROS: 07:44 Constitutional: Negative for fever, chills, and weight loss. ma2 07:44 All other systems are negative. Exam: 07:44 Constitutional: This is a well developed, well nourished patient who is awake, alert, ma2 and in no acute distress. Head/Face: Normocephalic, atraumatic. Eyes: Pupils equal round and reactive to light, extra-ocular motions intact. Lids and lashes normal. Conjunctiva and sclera are non-icteric and not injected. Cornea within normal limits. Periorbital areas with no swelling, redness, or edema. ENT: Nares patent. No nasal discharge, no septal abnormalities noted. Tympanic membranes are normal and external auditory canals are clear. Oropharynx with no redness, swelling, or masses, exudates, or evidence of obstruction, uvula midline. Mucous membranes moist. Neck: Trachea midline, no thyromegaly or masses palpated, and no cervical lymphadenopathy. Supple, full range of motion without nuchal rigidity, or vertebral point tenderness. No Meningismus. Chest/axilla: Normal chest wall appearance and motion. Nontender with no deformity. No lesions are appreciated. Cardiovascular: Regular rate and rhythm with a normal S1 and S2. No gallops, murmurs, or rubs. Normal PMI, no JVD. No pulse deficits. Respiratory: Lungs have equal breath sounds bilaterally, clear to auscultation and percussion. No rales, rhonchi or wheezes noted. No increased work of breathing, no retractions or nasal flaring. Abdomen/GI: Soft, non-tender, with normal bowel sounds. No distension or tympany. No guarding or rebound. No evidence of tenderness throughout. Back: Mild tenderness over right CVA, there is no no spinal tenderness. No left costovertebral tenderness. Full range of motion. Skin: Warm, dry with normal turgor. Normal color with no rashes, no lesions, and no evidence of cellulitis. MS/ Extremity: Pulses equal, no cyanosis. Neurovascular intact. Full, normal range of motion. Neuro: Awake and alert, GCS 15, oriented to person, place, time, and situation. Cranial nerves II-XII grossly intact. Motor strength 5/5 in all extremities. Sensory grossly intact. Cerebellar exam normal. Normal gait. Vital Signs: 07:22 BP 113 / 62; Pulse 75; Resp 16; Pulse Ox 97% ; Weight 63.5 kg; Height 5 ft. 6 in. vg1 (167.64 cm); Pain 10/10; 07:37 BP 142 / 73; Pulse 73; Resp 15; Pulse Ox 100% ; Pain 7/10; jl7 08:17 Temp 97.9; jl7 08:29 BP 107 / 67; Pulse 67; Resp 17; Pulse Ox 96% ; jl7 07:22 Body Mass Index 22.60 (63.50 kg, 167.64 cm) vg1 MDM: 07:36 Patient medically screened. ma2 07:44 Differential diagnosis: arthritis, Joint Injury Ligament Injury Pyelonephritis sprain. ma2 08:19 Data reviewed: vital signs, nurses notes, EMS record. Counseling: I had a detailed ma2 discussion with the patient and/or guardian regarding: the historical points, exam findings, and any diagnostic results supporting the discharge/admit diagnosis, the presence of at least one elevated blood pressure reading (>120/80) during this emergency department visit, lab results, the need for outpatient follow up. Response to treatment: the patient's symptoms have markedly improved after treatment. 11/14 07:37 Order name: Urine Dipstick-Ancillary; Complete Time: 08:20 EDNV 11/14 07:37 Order name: Urine Test (obtain specimen); Complete Time: 07:38 ma2 Administered Medications: 08:13 Drug: Dilaudid (HYDROmorphone) 2 mg Route: IM; Site: left deltoid; jl7 08:32 Follow up: Response: No adverse reaction; Pain is decreased jl7 08:13 Drug: Ondansetron 4 mg Route: PO; jl7 08:32 Follow up: Response: No adverse reaction [facility] 08:13 Drug: Rocephin (cefTRIAXone) 1 grams Route: IM; Site: left ventrogluteal; jl7 08:32 Follow up: Response: No adverse reaction jl7 Disposition Summary: 11/14/21 08:20 Discharge Ordered Location: Home ma2 Condition: Stable ma2 Diagnosis - Pyelonephritis acute ma2 Followup: ma2 - With: Private Physician - When: Tomorrow - Reason: If symptoms return, Continuance of care Discharge Instructions: - Discharge Summary Sheet ma2 - Pyelonephritis, Adult, [id number] ma2 Forms: - Medication Reconciliation Form ma2 - Thank You Letter ma2 - Antibiotic Education ma2 - Prescription Opioid Use ma2 Prescriptions: - Bactrim DS 800-160 mg Oral Tablet - take 1 tablet by ORAL route every 12 hours for 10 days; 20 tablet; Refills: 0, ma2 Product Selection Permitted Signatures: Dispatcher [employer] Case Ojeda RN RN [email or web address] Elly Jacinto MD MD ma2 Magy Tompkins RN RN vg1 Corrections: (The following items were deleted from the chart) 07:26 07:25 Allergies: NKDA; vg1 vg1
--- NOTE | 2021-11-14 08:21 | ER ---
Nurse's Notes [facility] Name: Betsey Martel Age: 56 yrs Sex: Female : 1965 Arrival Date: 11/14/2021 Time: 07:09 Bed 7 Private MD: Diagnosis: Pyelonephritis acute Presentation: 11/14 07:22 Chief complaint: Patient states: Fell about two weeks and states broke 'one of the vg1 bones' and is still having pain/spasms in mid right side of back that began this morning around 0300. Pt denies any urinary symptoms. Coronavirus screen: Vaccine status: Patient reports receiving the 2nd dose of the covid vaccine. Client denies travel out of the [place] in the last 14 days. Ebola Screen: Patient negative for fever greater than or equal to 101.5 degrees Fahrenheit, and additional compatible Ebola Virus Disease symptoms. Initial Sepsis Screen: Does the patient meet any 2 criteria? No. Patient's initial sepsis screen is negative. Does the patient have a suspected source of infection? No. Patient's initial sepsis screen is negative. Risk Assessment: Do you want to hurt yourself or someone else? Patient reports no desire to harm self or others. Onset of symptoms was November 14, 2021. 07:22 Method Of Arrival: Amb[place] [facility] [place] 07:22 Acuity: KAREN 3 vg1 Triage Assessment: 07:25 General: Appears in no apparent distress. uncomfortable, Behavior is calm, cooperative. vg1 Pain: Complains of pain in right mid back Pain currently is 10 out of 10 on a pain scale. Musculoskeletal: Circulation, motion, and sensation intact. Historical: - Allergies: 07:25 Cymbalta; vg1 07:25 Seroquel; vg1 - Home Meds: 07:25 carvedilol Oral [Active]; vg1 - PMHx: 07:25 Anemia; BRAIN TUMOR 1996; CHF; Chronic pain; degenerative bone disease; Depression; vg1 ETHO INTOXICATION; ETOH; GERD; Hip Pain; Hypertension; Hypothyroidism; kidney disease; osteoarthritis; Rheumatoid Arthritis; THORACIC AORTIC ANEURYSM; - Immunization history:: Client reports receiving the 2nd dose of the Covid vaccine. - Social history:: Smoking status: Patient reports the use of cigarette tobacco products, smokes one-half pack cigarettes per day. - Family history:: not pertinent. Screenin:37 Abuse screen: Denies threats or abuse. Denies injuries from another. Nutritional jl7 screening: No deficits noted. Tuberculosis screening: No symptoms or risk factors identified. 08:31 Fall Risk None identified. jl7 Assessment: 07:37 General: Appears in no apparent distress. uncomfortable, Behavior is calm, cooperative, jl7 appropriate for age. Pain: Complains of pain in right mid back Pain currently is 7 out of 10 on a pain scale. at worst was 10 out of 10 on a pain scale. Quality of pain is described as sharp, stabbing, Pain began suddenly. Neuro: Level of Consciousness is awake, alert, obeys commands, Oriented to person, place, time, situation. Cardiovascular: Patient's skin is warm and dry. Respiratory: Airway is patent Respiratory effort is even, unlabored, Respiratory pattern is regular, symmetrical. GI: Abdomen is non-distended, Patient currently denies diarrhea, nausea, vomiting. : Denies burning with urination, pain with urination. Derm: Skin is pink, warm \\T\\ dry. Musculoskeletal: Range of motion: intact in all extremities, Reports pain in right mid back "It spasms". 08:15 Reassessment: Pt states "My granddaughter is coming to pick me up.". jl7 Vital Signs: 07:22 BP 113 / 62; Pulse 75; Resp 16; Pulse Ox 97% ; Weight 63.5 kg; Height 5 ft. 6 in. vg1 (167.64 cm); Pain 10/10; 07:37 BP 142 / 73; Pulse 73; Resp 15; Pulse Ox 100% ; Pain 7/10; jl7 08:17 Temp 97.9; jl7 08:29 BP 107 / 67; Pulse 67; Resp 17; Pulse Ox 96% ; jl7 07:22 Body Mass Index 22.60 (63.50 kg, 167.64 cm) vg1 ED Course: 07:09 Patient arrived in ED. ds1 07:25 Triage completed. vg1 07:25 Arm band placed on. vg1 07:27 Case Pruitt RN is Primary Nurse. jl7 07:36 Elly Jacinto MD is Attending Physician. ma2 07:37 Patient has correct armband on for positive identification. Bed in low position. Call jl7 light in reach. Side rails up X 1. Pulse ox on. NIBP on. 08:31 No provider procedures requiring assistance completed. Patient did not have IV access jl7 during this emergency room visit. Administered Medications: 08:13 Drug: Dilaudid (HYDROmorphone) 2 mg Route: IM; Site: left deltoid; jl7 08:32 Follow up: Response: No adverse reaction; Pain is decreased jl7 08:13 Drug: Ondansetron 4 mg Route: PO; jl7 08:32 Follow up: Response: No adverse reaction jl7 08:13 Drug: Rocephin (cefTRIAXone) 1 grams Route: IM; Site: left ventrogluteal; jl7 08:32 Follow up: Response: No adverse reaction jl7 Outcome: 08:20 Discharge ordered by . ma2 08:31 Discharged to home ambulatory, with family. jl7 08:31 Condition: stable 08:31 Discharge instructions given to patient, Instructed on discharge instructions, follow up and referral plans. medication usage, Demonstrated understanding of instructions, follow-up care, medications, Prescriptions given X 1. 08:32 Patient left the ED. jl7 Signatures: Keeley Mary ds1 Case Pruitt RN RN jl7 Elly Jacinto MD MD ma2 Garcia, Victoria, RN RN vg1 Corrections: (The following items were deleted from the chart) 07:26 07:25 Allergies: NKDA; vg1 vg1 07:27 07:22 Chief complaint: Patient states: Fell about two weeks and states broke 'one of vg1 the bones' and is still having pain/spasms in mid left side of back. Pt denies any urinary symptoms. vg1
[2021-11-14 08:41] VITALS: TEMP 97.9
[2021-11-14 08:43] VITALS: BP 107/67; O2SAT 96
== END 2021-11-14 08:32 | disposition home or self-care (01) ==
LOC: ER 07:05
DX: N10 Acute pyelonephritis (principal); F17.210 Nicotine dependence, cigarettes, uncomplicated; I10 Essential (primary) hypertension; Z88.8 Allergy status to other drugs, medicaments and biological substances
CPT/HCPCS: 81003; 96372; 99283; J1170

== ENCOUNTER 2022-02-16 19:34 | Emergency (ER) | payer OTHER ==
--- OUTSIDE RECORDS SUMMARY | 2022-02-16 19:44 | XMS REPORT | Continuity of Care Document ---
:1965 Author Organization [facility] t Address [address] [place] [place] [address] Care Team Providers Name Role Phone Owens, E Primary Care Physician LINDA Attending Clinician Unavailable TERE Attending Clinician Unavailable SAGRARIO Attending Clinician Unavailable Doctor Unassigned, Name Attending Clinician Unavailable Only, Db Test Attending Clinician Unavailable Kyle COMMERCIAL PORTFOLIO MANAGER Attending Clinician KYLE Attending Clinician Unavailable Pob, Lab Main Attending Clinician Unavailable Nick TAYLOR, S Attending Clinician Liza ROMERO Attending Clinician Unavailable Charles TAYLOR, T. Attending Clinician Julius Valdez Attending Clinician Gwendolyn TAYLOR Attending Clinician Cheko Gilliam MD Attending Clinician CHEKO GILLIAM Attending Clinician Unavailable CHEKO GILLIAM Attending Clinician Unavailable TROY Attending Clinician Unavailable Obed BENJAMIN Attending Clinician Unavailable Haider TAYLOR Attending Clinician Bolivar Lambert MD Attending Clinician Claribel Thomson MD Attending Clinician [...] Fam Pob I Attending Clinician Unavailable Omyolis COMMERCIAL PORTFOLIO MANAGER Attending Clinician Ebrahim COMMERCIAL PORTFOLIO MANAGER Attending Clinician SRINIVASAN Attending Clinician Unavailable Jaime MAXWELL Attending Clinician JAIME Attending Clinician Unavailable LUIS Attending Clinician Unavailable DIANA Attending Clinician Unavailable Emily BENJAMIN Attending Clinician Unavailable Petra TAYLOR [facility] Admitting Clinician CHARLES Admitting Clinician Unavailable RA CRESPO Admitting Clinician Unavailable KALE ONOFRE Admitting Clinician Unavailable Payers Payer Name Policy Type Policy Number Effective Date Expiration Date S ource MEDICAID OF [place] [id number] 2006 00:00:00 [facility] DUAL [id number] 2021 COMP HMO D SNP 00:00:00 [facility] WELLMED [id number] 2020 2024 00:00:00 00:00:00 Problems Condition Condition [...] vers drip drip 08-04 ity of 00:00: Medical Branch Pure Pure Disease Active Univers [...] Formattin ity of 00:00: g of this note Medical might be Branch different from the original. 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 ICD10 Diagnosis Term Logistics Manager Utility Essential Essential Disease Active Uni [...] Swelling Me thodi (Non-Lasha ty to Comments) 2 / Hx st roidal adverse 00:00: - [...] Me thodi n Hcl ty to Comments) [address] adverse 00:00: [facility] reaction 00 l s to drug Duloxeti Propensi Active Swelling Univ ers ne ty to 2-24 ity of adverse 00:00: [place] reaction 00 Medical s Branch Quetiapi Propensi Active Swelling Univ ers ne ty to 2-24 ity of Fumarate adverse 00:00: [place] reaction Medical s Branch Bupropio Propensi Active Swelling 2015-0 Univ ers n Hcl ty to 2-24 ity of adverse 00:00: [place] reaction 00 Medical s Branch DULOXETI DRUG Active Swelling Univer s NE INGREDI 2-24 ity of 00:00: [place] 00 Medical Branch QUETIAPI DRUG Active Swelling Univer s NE INGREDI 2-24 ity of FUMARATE 00:00: [place] 00 Medical Branch BUPROPIO DRUG Active Swelling Univer s N HCL INGREDI 2-24 ity of 00:00: [place] 00 Medical Branch Social History Social Habit Start Date Stop Date Quantity Comments Source Exposure to Not sure University of SARS-CoV-2 (event) [facility] History of tobacco Cigarette Smoker University of use [facility] History SDOH [place] o f Alcohol Frequency [facility] edical Filer History SDNM University o f Alcohol Std Drinks [facility] History [facility] o f Alcohol Binge [facility] al Filer Cigarettes smoked 2020-12-14 2020-12-[address] current (pack per 00:00:00 00:00:00 Hospita l day) - Reported Cigarette 2020-12-14 2020-12-14 [facility] pack-[facility] 00:00[facility]00 00:00:00 Hospital Tobacco use and 2020-12-14 2020-12-14 Never used [facility] exposure 00:00:00 00:00:00 Hospital Alcohol intake 2020-12-14 2020-12-14 0 /d [facility] 00:00:00 00:00:00 Hospital Alcohol Comment 2015-12-25 2015-12-25 Social Drinker Unive rsity of 00:00:00 00:00:00 [facility] Sex Assigned At [birth year] [facility] 00:00:00 00:00:00 Hospital Smoking Status Start Date Stop Date Source Tobacco smoking [facility] Current every day smoker 2021-05-31 00:00:00 Uni versity of [facility] Light tobacco smoker 2020-12-14 00:00:00 [facility] Medications Ordered Filled Start Stop Current Ordering [...] tablet 25 nightly. l hydromorPHO 2020-11 Yes [id number] 4mg Q8H Take 4 mg [facility] NE [...] every l morning. clonAZEPAM 2020-11 Yes 1mg [id number] Take 1 mg [facility] (KlonoPIN) 0-04 [id number] by mouth 3 st 1 MG tablet [...] 25 l coated tablet NON 2020-11 Yes [id number] [facility] FORMULARY 0-[address] 13:44: --- [...] of 50 mg 22:50: at [place] tablet bedtime. Medical Branch rOPINIRole Yes 2mg Take [...] by mouth ity of (PROTONIX) 22:50: daily. [place] 40 mg EC Medical tablet Branch citalopram Yes 20mg Take 20 mg U nivers (CELEXA) 20 5-26 by mouth ity of mg tablet 22:50: daily. Medical Branch traZODONE Yes 50mg Take 50 mg Un christie (DESYREL) 5-26 by mouth ity of 50 mg 22:50: at [place] tablet bedtime. Medical Branch rOPINIRole Yes 2mg Take [...] by mouth ity of (PROTONIX) 22:50: daily. [place] 40 mg EC Medical tablet Branch citalopram Yes 20mg Take 20 mg U nivers (CELEXA) 20 5-26 by mouth ity of mg tablet 22:50: daily. Medical Branch traZODONE Yes 50mg Take 50 mg Un christie (DESYREL) 5-26 by mouth ity of 50 mg 22:50: at [place] tablet bedtime. Medical Branch rOPINIRole Yes 2mg Take [...] by mouth ity of tablet 22:50: every [place] 01 morning Medical and Branch evening. pantoprazol Yes [...] 5-26 by mouth ity of 22:50: daily. [place] Medical Branch magnesium Yes Take by Univ ers oxide 400 5-26 mouth. ity of mg 22:50: [place] magnesium Medical Tab Branch biotin 1 mg Yes Take by Un christie Cap 5-26 mouth. ity of 22:50: [place] [facility] furosemide Yes 20mg Take 20 mg U nivers 20 mg 5-26 by mouth ity of tablet 22:50: every [place] morning Medical and Branch evening. pantoprazol Yes 40mg Take 40 mg Univers e 5-26 by mouth ity of (PROTONIX) 22:50: daily. [place] 40 mg EC Medical tablet Branch citalopram [...] 5-26 by mouth ity of 22:50: daily. [place] [facility] magnesium Yes Take by Univ ers oxide 400 5-26 mouth. ity of mg 22:50: [place] magnesium Medical Tab Branch biotin 1 mg Yes Take by Un christie Cap 5-26 mouth. ity of 22:50: [place] [facility] furosemide Yes 20mg Take 20 mg U nivers 20 mg 5-26 by mouth ity of tablet 22:50: every [place] morning Medical and Branch evening. pantoprazol Yes 40mg Take 40 mg Univers e 5-26 by mouth ity of (PROTONIX) 22:50: daily. [place] 40 mg EC Medical tablet Branch citalopram [...] 5-26 by mouth ity of 22:50: daily. [place] Medical Branch magnesium Yes Take by Univ ers oxide 400 5-26 mouth. ity of mg 22:50: [place] magnesium Medical Tab Branch biotin 1 mg Yes Take by Un christie Cap 5-26 mouth. ity of 22:50: [place] [facility] furosemide Yes 20mg Take 20 mg U nivers 20 mg 5-26 by mouth ity of tablet 17:50: every [place] morning Medical and Branch evening. pantoprazol Yes 40mg Take 40 mg Univers e 5-26 by mouth ity of (PROTONIX) 17:50: daily. [place] 40 mg EC Medical tablet Branch citalopram [...] EC 5-26 by mouth ity of tablet 17:50: daily. Medical Branch acetaminoph Yes Take by Un christie en 5-26 mouth ity of (TYLENOL) 17:50: every 6 [place] 325 mg 01 (six) Medical tablet hours as Branch needed for Pain (scale 1-3). amLODIPine Yes 5mg Take 5 mg Un christie 5 mg tablet 5-26 by mouth ity of 17:50: daily. [place] [facility] magnesium Yes Take by Univ ers oxide 400 5-26 mouth. ity of mg 17:50: [place] magnesium Medical Tab Branch biotin 1 mg Yes Take by Un christie Cap 5-26 mouth. ity of 17:50: [place] [facility] furosemide Yes 20mg Take 20 mg U nivers 20 mg 5-26 by mouth ity of tablet 17:50: every [place] morning Medical and Branch evening. pantoprazol Yes 40mg Take 40 mg Univers e 5-26 by mouth ity of (PROTONIX) 17:50: daily. [place] 40 mg EC Medical tablet Branch citalopram [...] EC 5-26 by mouth ity of tablet 17:50: daily. Medical Branch acetaminoph Yes Take by Un christie en 5-26 mouth ity of (TYLENOL) 17:50: every 6 [place] 325 mg 01 (six) Medical tablet hours as Branch needed for Pain (scale 1-3). amLODIPine Yes 5mg Take 5 mg Un christie 5 mg tablet 5-26 by mouth ity of 17:50: daily. [place] [facility] Branch magnesium Yes Take by Univ ers oxide 400 5-26 mouth. ity of mg 17:50: [place] magnesium Medical Tab Branch biotin 1 mg Yes Take by Un christie Cap 5-26 mouth. ity of 17:50: [place] [facility] furosemide Yes 20mg Take 20 mg U nivers 20 mg 5-26 by mouth ity of tablet 17:50: every [place] morning Medical and Branch evening. pantoprazol Yes 40mg Take 40 mg Univers e 5-26 by mouth ity of (PROTONIX) 17:50: daily. [place] 40 mg EC Medical tablet Branch citalopram [...] EC 5-26 by mouth ity of tablet 17:50: daily. Medical Branch acetaminoph Yes Take by Un christie en 5-26 mouth ity of (TYLENOL) 17:50: every 6 [place] 325 mg 01 (six) Medical tablet hours as Branch needed for Pain (scale 1-3). amLODIPine Yes 5mg Take 5 mg Un christie 5 mg tablet 5-26 by mouth ity of 17:50: daily. [place] Medical [facility] magnesium Yes Take by Univ ers oxide 400 5-26 mouth. ity of mg 17:50: [place] magnesium Medical Tab Branch biotin 1 mg Yes Take by Un christie Cap 5-26 mouth. ity of 17:50: [place] [facility] furosemide Yes 20mg Take 20 mg U nivers 20 mg 5-26 by mouth ity of tablet 17:50: every [place] morning Medical and Branch evening. pantoprazol Yes 40mg Take 40 mg Univers e 5-26 by mouth ity of (PROTONIX) 17:50: daily. [place] 40 mg EC Medical tablet Branch citalopram [...] tiZANidine Yes 2mg Take 2 mg Un chrisite (ZANAFLEX) 5-26 by mouth 2 ity of [...] EC 5-26 by mouth ity of tablet 17:50: daily. [place] [address] Medical Branch acetaminoph Yes Take by Un christie en 04-03 mouth ity of (TYLENOL) 17:50: every 6 [place] 325 mg 01 (six) Medical tablet hours as Branch needed for Pain (scale 1-3). amLODIPine Yes 5mg Take 5 mg Un christie 5 mg tablet 04-03 by mouth ity of 17:50: daily. [place] [address] Medical Branch magnesium Yes Take by [facility] ers oxide 400 04-03 mouth. ity of mg 17:50: [place] magnesium Medical Tab Branch biotin 1 mg Yes Take by Un christie Cap 04-03 mouth. ity of 17:50: [place] [address] Medical Branch HYDROmorpho 2020- No 8mg Take 8 mg Univers ne 04-03 by mouth ity of (DILAUDID) 17:02: 00:00 every 6 [place] as 8 mg tablet 51 :00 (six) Medical hours as Branch needed for Pain. atropine Yes .5mg 0.5 mg, IV Uni vers injection 04-03 Push, PRN ity o f 0.5 mg 05:33: - SEE [place] 00 INSTRUCTIO Medical NS, Branch Starting 04/03/21 at 0033, Until Discontinu ed, Routine, Symptomati c Bradycardi a dextrometho Yes 10mL 10 mL, Univ ers rphan-guaif 04-03 Oral, ity of enesin 03:58: Q6HPRN, [place] (ROBITUSSIN 20 Starting Medi dyan DM) 10-100 Tue Branch mg/5 mL 04/02/21 at solution 10 2258, mL Until Discontinu ed, Routine, Cough lidocaine 2020-0 2020- No 1{patch 1 Patch, Univers (LIDODERM) 04-03 } Topical, ity of 5 % (700 02:00: 13:31 Administer [place] mg/patch) 00 :00 over 12 Medical patch 1 Hours, Branch Patch ONCE, 1 dose, 04/02/21 at 2100, Routine amLODIPine Yes 5mg 5 mg, Univer s (NORVASC) 04-03 Oral, ity of tablet 5 mg 01:00: DAILY, [place] 00 First dose Medical (after Branch last modificati on) on Thu04/02/21 at 1999, Until Discontinu ed, Routine HYDROmorpho 2021-0 Yes [...] 00:00: mouth [place] 00 every 12 Medical ([facility] Branch hours as needed for Pain. Indication s: chronic pain enoxaparin Yes 40mg 40 mg, Unive rs (LOVENOX) 5-25 Subcutaneo ity of injection 22:00: [place], DAILY, [place] 40 mg 00 First dose Medical on [facility] 04/02/21 at 1700, Until Discontinu ed, Routine atorvastati Yes 20mg 20 mg, Univ ers n (LIPITOR) 5-25 Oral, QPM, it y of tablet 20 22:00: First dose [place] mg 00 on [facility] 04/02/21 at Branch 1700, Until Discontinu ed, Routine magnesium 2020- No 296mL 296 mL, Uni vers citrate 5-25 05-25 Oral, ity of solution 17:15: 21:48 ONCE, 1 [place] 296 mL 00 :00 dose, [facility] 04/02/21 at Branch 1215, Routine pantoprazol Yes 40mg 40 mg, Univ ers e 5-25 Oral, ity of (PROTONIX) 14:00: DAILY, [place] EC tablet 00 First dose Medi dyan 40 mg on [facility] 04/02/21 at 0900, Until Discontinu ed, Routine aspirin EC Yes 81mg 81 mg, Unive rs tablet 81 5-25 Oral, ity of mg 14:00: DAILY, [place] 00 First dose Medical on [facility] 04/02/21 at 0900, Until Discontinu ed, Routine sennosides- Yes 2{tbl} 2 tablet, Univers docusate 5-25 Oral, BID, ity o f sodium 13:00: First dose [place] (SENOKOT-S) 00 on [facility] l 8.6-50 mg 04/02/21 at [facility] per tablet 0800, 2 tablet Until Discontinu ed, Routine polyethylen Yes 17g 17 g, Unive rs e glycol 5-25 Oral, BID, ity o f 3350 powder 13:00: First dose [place] 17 g 00 on [facility] 04/02/21 at Branch 0800, Until Discontinu ed, Routine ipratropium 0 Yes 3mL 3 mL, [facility]25 Inhalation ity of (DUONEB) 13:00: , QID, [place] 0.5 mg-3 00 First dose Medic al mg(2.5 mg on Thu [place] )/3 mL 04/02/21 at nebulizer 0800, solution 3 Until mL Discontinu ed, Routine levothyroxi Yes 25ug 25 mcg, Uni vers ne 5-25 Oral, ity of (SYNTHROID) 11:00: QAM-0600, [place] tablet First dose Medi dyan mcg on Thu Branch 04/02/21 at 0600, Until Discontinu ed, Routine lactated 2020- No 1000mL at 200 Univ ers ringers IV 5-25 05-25 mL/hr, ity of infusion 08:00: 07:12 1,000 mL, [place] as 1,000 mL 00 :00 Intravenou Medic al s, ONCE, 1 Branch dose, Thu04/02/21 at 0300, Routine ipratropium Yes 3mL 3 mL, [facility] rs -albuteroL 5-25 Inhalation ity of (DUONEB) 07:37: , Q6HPRN, [place] 0.5 mg-3 55 Starting Medical mg(2.5 mg Thu)/3 mL 04/02/21 at nebulizer 0237, solution 3 Until mL Discontinu ed, Routine, Wheezing, Shortness of Breath naloxone 0 Yes .2mg 0.2 mg, Univer s (NARCAN) 5-25 Slow IV ity of injection 06:53: Push, [place] 0.2 mg 33 SEE-INSTRU Medical CTIONS, Branch [...] by mouth ity of 06:52: 00:00 daily. [place] 52 :00 Medical Branch BIOTIN ORAL 2020- No 1{tbl} Take 1 Tab Univers 5-25 05-25 by mouth ity of 06:52: 00:00 daily. [place] 52 :00 Medical Branch acetaminoph Yes 650mg 650 mg, Un christie en 5-25 Oral, ity of (TYLENOL) 06:52: Q6HPRN, [place] tablet 650 06 Starting Medic al mg Tu Branch 04/02/21 at 0152, Until Discontinu ed, Routine, Pain (scale 1-3), Temp > 38.5 C HYDROcodone 2020- No 1{tbl} Take 1 U nivers -acetaminop 5-25 05-25 tablet by it y of hen (NORCO) 06:45: 00:00 mouth [place] 7.5-325 mg 43 :00 every 6 Medica l per tablet (six) Branch hours as needed for Pain. cefTRIAXone 2020- No 1000mg 1,000 mg, Univers (ROCEPHIN) 5-25 05-25 IV ity of 1,000 mg in 04:30: 04:21 [place], [place] NaCl 0.9% 00 :00 ONCE, 1 Medical (NS) 50 mL dose, Mon Bran ch MINI-BAG 04/01/21 at 2330, 50 mL
Reas on for Anti-Infec tive: Documented Infection< br>Documen theodore Infection Site: Urine
D uration of Therapy: Other (see Comments) gabapentin 2020- No 300mg Q.5D Take 1 Met hodi (Neurontin) 2-04 03-[address] 300 mg 00:00: 05:59 (300 mg Hospita capsule 00 :00 total) by l mouth 2 (two) times a day for 30 days. celecoxib 2020- No 200mg Q.5D Take 1 Meth geovani (CeleBREX) 12-13-[address] 200 MG 00:00: 05:59 (200 mg Hospita capsule 00 :00 total) by l mouth 2 (two) times a day for 30 days. HYDROcodone 2020- No 36119 1{tbl} Q6H Take 1 [facility] -acetaminop 12-13-[address] hen (Robeline) 00:00: 05:59 mouth Hosp jah 10-325 mg [...] 500mg Q.5D Take 500 [facility] am (KEPPRA) 12-11 02-[address] 500 MG 19:07: 00:00 mouth 2 Hospita tablet 15 :00 (two) l times a day. traMADoL 2020- [place] [address]14 50mg Q4H Take 1 Metho di (ULTRAM) 50 -13 01-24 tablet (50 s t mg tablet 00:00: [...] [place] magnesium 19 Medical Tab Branch traZODONE 2020-1 Yes 50mg Take 50 mg Un christie (DESYREL) 0-22 by mouth ity of 50 mg 20:09: at [place] tablet 19 bedtime. Medical Branch magnesium 2020- Yes Take by Univ ers oxide 400 [...] 2019- Yes 50mg Take 50 mg Un chrisite (DESYREL) 0-22 by mouth ity of 50 [...] [place] tablet 19 bedtime. Medical Branch magnesium 2020- Yes Take by Univ ers oxide 400 0-22 mouth. ity of mg 20:09: [place] magnesium 19 Medical Tab Branch traZODONE 2019- Yes 50mg Take 50 mg Un christie (DESYREL) 0-22 by mouth ity of 50 mg 20:09: at [place] tablet 19 bedtime. Medical Branch magnesium 2020- Yes Take by Univ ers oxide 400 0-22 mouth. ity of mg 20:09: [place] magnesium 19 Medical Tab Branch traZODONE 2019-11 Yes 50mg Take 50 mg Un christie (DESYREL) 0-22 by mouth ity of 50 mg 20:09: at [place] tablet 19 bedtime. Medical Branch magnesium 2019-11 Yes Take by Univ ers oxide 400 0-22 mouth. ity of mg 20:09: [place] [address] Medical Tab Branch traZODONE 2019-11 Yes 50mg Take 50 mg Un christie (DESYREL) 0-22 by mouth ity of 50 mg 20:09: at [place] tablet 19 bedtime. Medical Branch magnesium 2019-11 Yes Take by Univ ers oxide 400 0-22 mouth. ity of mg 20:09: [place] [address] Medical Tab Branch traZODONE 2019-11 Yes 50mg Take 50 mg Un christie (DESYREL) 0-22 by mouth ity of 50 mg 20:09: at [place] tablet 19 bedtime. Medical Branch magnesium 2019-11 Yes Take by Univ ers oxide 400 0-22 mouth. ity of mg 20:09: [place] [address] Medical Tab Branch furosemide 2019-11 Yes 20mg Take 20 mg U nivers (LASIX) 40 0-22 by mouth ity o f mg tablet 20:06: daily. [place] [address] Medical Branch pantoprazol 2019-11 Yes 40mg Take 40 mg Univers e 0-22 by mouth ity of (PROTONIX) 20:06: daily. [place] 40 mg EC 52 Medical tablet Branch citalopram 2019-11 Yes 20mg Take 20 mg U nivers (CELEXA) 20 0-22 by mouth ity of mg tablet 20:06: daily. [place] [address] Medical Branch rOPINIRole 2019-11 Yes 2mg Take 2 mg Un christie (REQUIP) 2 0-22 by mouth ity o f mg tablet 20:06: at [place] [address] bedtime. Medical Branch tiZANidine 2019-11 Yes 2mg [...] 0-22 by mouth ity of 20:06: daily. [place] [address] Medical Branch DOCUSATE 2019-11 Yes 1{tbl} Take 1 Tab U nivers CALCIUM 0-22 by mouth ity of (STOOL 20:06: as needed [place] SOFTENER 52 for Medical ORAL) Constipati Branch on. amLODIPine 2019-11 Yes 5mg Take 5 mg Un christie 5 mg tablet 0-22 by mouth ity of 20:06: daily. [place] [address] Medical Branch furosemide 2019-11 Yes 20mg Take 20 mg U nivers (LASIX) 40 0-22 by mouth ity o f mg tablet 20:06: daily. [place] [address] Medical Branch pantoprazol 2019-11 Yes 40mg Take 40 mg Univers e 0-22 by mouth ity of (PROTONIX) 20:06: daily. [place] 40 mg [facility] Medical tablet Branch citalopram 2019-11 Yes 20mg Take 20 mg U nivers (CELEXA) 20 0-22 by mouth ity of mg tablet 20:06: daily. [place] [address] Medical Branch rOPINIRole 2019-11 Yes 2mg Take 2 mg Un christie (REQUIP) 2 0-22 by mouth ity o f mg tablet 20:06: at [place] [address] bedtime. Medical Branch tiZANidine 2019-11 Yes 2mg [...] 0-22 by mouth ity of 20:06: daily. [place] [address] Medical Branch DOCUSATE 2019-11 Yes 1{tbl} Take 1 Tab U nivers CALCIUM 0-22 by mouth ity of (STOOL 20:06: as needed [place] SOFTENER 52 for Medical ORAL) Constipati Branch on. amLODIPine 2019-11 Yes 5mg Take 5 mg Un [place]ie 5 mg tablet 0-22 by mouth ity of 20:06: daily. [place] [address] Medical Branch furosemide 2019-11 Yes 20mg Take 20 mg U nivers (LASIX) 40 0-22 by mouth ity o f mg tablet 20:06: daily. [place] [address] Medical Branch pantoprazol 2019-11 Yes 40mg Take 40 mg Univers e 0-22 by mouth ity of (PROTONIX) 20:06: daily. [place] 40 mg EC Medical tablet Branch citalopram 2019-11 Yes 20mg Take 20 mg U nivers (CELEXA) 20 0-22 by mouth ity of mg tablet 20:06: daily. [place] [address] Medical Branch rOPINIRole 2019-11 Yes 2mg Take 2 mg Un christie (REQUIP) 2 0-22 by mouth ity o f mg tablet 20:06: at [place] [address] bedtime. Medical Branch tiZANidine 2019-11 Yes 2mg [...] 0-22 by mouth ity of 20:06: daily. [address] Branch DOCUSATE 2019-11 Yes 1{tbl} Take 1 Tab U nivers CALCIUM 0-22 by mouth ity of (STOOL 20:06: as needed [place] SOFTENER for Medical ORAL) Constipati Branch on. amLODIPine 2019-11 Yes 5mg Take 5 mg Un [place]ie 5 mg tablet 0-22 by mouth ity of 20:06: daily. [address] Branch furosemide 2019-11 Yes 20mg Take 20 mg U nivers (LASIX) 40 0-22 by mouth ity o f mg tablet 20:06: daily. [address] Branch pantoprazol 2019-11 Yes 40mg Take 40 mg Univers e 0-22 by mouth ity of (PROTONIX) 20:06: daily. [place] 40 mg EC 52 Medical tablet Branch citalopram 2019-11 Yes 20mg Take 20 mg U nivers (CELEXA) 20 0-22 by mouth ity of mg tablet 20:06: daily. [place] [address] Medical Branch rOPINIRole 2019-11 Yes 2mg Take 2 mg Un christie (REQUIP) 2 0-22 by mouth ity o f mg tablet 20:06: at [place] [address] bedtime. Medical Branch tiZANidine 2019-11 Yes 2mg [...] 0-22 by mouth ity of 20:06: daily. [place] [address] Medical Branch DOCUSATE 2019-11 Yes 1{tbl} Take 1 Tab U nivers CALCIUM 0-22 by mouth ity of (STOOL 20:06: as needed [place] SOFTENER for Medical ORAL) Constipati Branch on. amLODIPine 2019-11 Yes 5mg Take 5 mg Un christie 5 mg tablet 0-22 by mouth ity of 20:06: daily. [place] [address] Medical Branch furosemide 2019-11 Yes 20mg Take 20 mg U nivers (LASIX) 40 0-22 by mouth ity o f mg tablet 20:06: daily. [place] [address] Medical Branch pantoprazol 2019-11 Yes 40mg Take 40 mg Univers e 0-22 by mouth ity of (PROTONIX) 20:06: daily. [place] 40 mg [facility] Medical tablet Branch citalopram 2019-11 Yes 20mg Take 20 mg U nivers (CELEXA) 20 0-22 by mouth ity of mg tablet 20:06: daily. [place] [address] Medical Branch rOPINIRole 2019-11 Yes 2mg Take 2 mg Un christie (REQUIP) 2 0-22 by mouth ity o f mg tablet 20:06: at [place] [address] bedtime. Medical Branch tiZANidine 2019-11 Yes 2mg [...] 0-22 by mouth ity of 20:06: daily. [place] [address] Medical Branch DOCUSATE 2019-11 Yes 1{tbl} Take 1 Tab U nivers CALCIUM 0-22 by mouth ity of (STOOL 20:06: as needed [place] SOFTENER 52 for Medical ORAL) Constipati Branch on. amLODIPine 2019-11 Yes 5mg Take 5 mg Un christie 5 mg tablet 0-22 by mouth ity of 20:06: daily. [place] [address] Medical Branch furosemide 2019-11 Yes 20mg Take 20 mg U nivers (LASIX) 40 0-22 by mouth ity o f mg tablet 20:06: daily. [place] [address] Medical Branch pantoprazol 2019-11 Yes 40mg Take 40 mg Univers e 0-22 by mouth ity of (PROTONIX) 20:06: daily. [place] 40 mg [facility] Medical tablet Branch citalopram 2019-11 Yes 20mg Take 20 mg U nivers (CELEXA) 20 0-22 by mouth ity of mg tablet 20:06: daily. [place] [address] Medical Branch rOPINIRole 2019-11 Yes 2mg Take 2 mg Un christie (REQUIP) 2 0-22 by mouth ity o f mg tablet 20:06: at [place] [address] bedtime. Medical Branch tiZANidine 2019-11 Yes 2mg [...] 0-22 by mouth ity of 20:06: daily. [place] [address] Medical Branch DOCUSATE 2019-11 Yes 1{tbl} Take 1 Tab U nivers CALCIUM 0-22 by mouth ity of (STOOL 20:06: as needed [place] SOFTENER for Medical ORAL) Constipati Branch on. amLODIPine 2019-11 Yes 5mg Take 5 mg [facility] 5 mg tablet 0-22 by mouth ity of 20:06: daily. [place] [address] Medical Branch furosemide 2019-11 Yes 20mg Take 20 mg U nivers (LASIX) 40 0-22 by mouth ity o f mg tablet 20:06: daily. [place] [address] Medical Branch pantoprazol 2019-11 Yes 40mg Take 40 mg Univers e 0-22 by mouth ity of (PROTONIX) 20:06: daily. [place] 40 mg EC Medical tablet Branch citalopram 2019-11 Yes 20mg Take 20 mg U nivers (CELEXA) 20 0-22 by mouth ity of mg tablet 20:06: daily. [place] [address] Medical Branch rOPINIRole 2019-11 Yes 2mg Take 2 mg [facility] (REQUIP) 2 0-22 by mouth ity o f mg tablet 20:06: at [place] [id number] bedtime. Medical Branch tiZANidine 2019-11 Yes 2mg [...] 0-22 by mouth ity of 20:06: daily. [place] [address] Medical Branch DOCUSATE 2019-11 Yes 1{tbl} Take 1 Tab U nivers CALCIUM 0-22 by mouth ity of (STOOL 20:06: as needed [place] SOFTENER for Medical ORAL) Constipati Branch on. amLODIPine 2019-11 Yes 5mg Take 5 mg [facility] 5 mg tablet 0-22 by mouth ity of 20:06: daily. [place] [address] Medical Branch furosemide 2019-11 Yes 20mg Take 20 mg U nivers (LASIX) 40 0-22 by mouth ity o f mg tablet 20:06: daily. [place] [address] Medical Branch pantoprazol 2019-11 Yes 40mg Take 40 mg Univers e 0-22 by mouth ity of (PROTONIX) 20:06: daily. [place] 40 mg EC Medical tablet Branch citalopram 2019-11 Yes 20mg Take 20 mg U nivers (CELEXA) 20 0-22 by mouth ity of mg tablet 20:06: daily. [place] [address] Medical Branch rOPINIRole 2019-11 Yes 2mg Take 2 mg [facility] (REQUIP) 2 0-22 by mouth ity o f mg tablet 20:06: at [place] [address] bedtime. Medical Branch tiZANidine 2019-11 Yes 2mg [...] 0-22 by mouth ity of 20:06: daily. [place] [address] Medical Branch DOCUSATE 2019-11 Yes 1{tbl} Take 1 Tab U nivers CALCIUM 0-22 by mouth ity of (STOOL 20:06: as needed [place] SOFTENER for Medical ORAL) Constipati Branch on. amLODIPine 2019-11 Yes 5mg Take 5 mg [facility] [place] 5 mg tablet 0-22 by mouth ity of 20:06: daily. [address] Branch furosemide 2019-11 Yes 20mg Take 20 mg U nivers (LASIX) 40 0-22 by mouth ity o f mg tablet 20:06: daily. [place] [address] Medical Branch pantoprazol 2019-11 Yes 40mg Take 40 mg Univers e 0-22 by mouth ity of (PROTONIX) 20:06: daily. [place] 40 mg EC Medical tablet Branch citalopram 2019-11 Yes 20mg Take 20 mg U nivers (CELEXA) 20 0-22 by mouth ity of mg tablet 20:06: daily. [place] [address] Medical Branch rOPINIRole 2019-11 Yes 2mg Take 2 mg [facility] (REQUIP) 2 0-22 by mouth ity o f mg tablet 20:06: at [place] [address] bedtime. Medical Branch tiZANidine 2020-1 Yes 2mg Take 2 mg [facility] [...] 0-22 by mouth ity of 20:06: daily. [place] [address] Medical Branch DOCUSATE 2019-11 Yes 1{tbl} Take 1 Tab U nivers CALCIUM 0-22 by mouth ity of (STOOL 20:06: as needed [place] SOFTENER for Medical ORAL) Constipati Branch on. amLODIPine 2019-11 Yes 5mg Take 5 mg [place] 5 mg tablet 0-22 by mouth ity of 20:06: daily. [place] [address] Medical Branch furosemide 2019-11 Yes 20mg Take 20 mg U nivers (LASIX) 40 0-22 by mouth ity o f mg tablet 20:06: daily. [place] [address] Medical Branch pantoprazol 2019-11 Yes 40mg Take 40 mg Univers e 0-22 by mouth ity of (PROTONIX) 20:06: daily. [place] 40 mg [facility] Medical tablet Branch citalopram 2019-11 Yes 20mg Take 20 mg U nivers (CELEXA) 20 0-22 by mouth ity of mg tablet 20:06: daily. [place] [address] Medical Branch rOPINIRole 2019-11 Yes 2mg Take 2 mg [facility] (REQUIP) 2 0-22 by mouth ity o f mg tablet 20:06: at [place] [address] bedtime. Medical Branch tiZANidine 2019-11 Yes 2mg [...] 0-22 by mouth ity of 20:06: daily. [place] [address] Medical Branch DOCUSATE 2019-11 Yes 1{tbl} Take 1 Tab U nivers CALCIUM 0-22 by mouth ity of (STOOL 20:06: as needed [place] SOFTENER for Medical ORAL) Constipati Branch on. amLODIPine 2019-11 Yes 5mg Take 5 mg [facility] [place] 5 mg tablet 0-22 by mouth ity of 20:06: daily. [place] [address] Medical Branch furosemide 2019-11 Yes 20mg Take 20 mg U nivers (LASIX) 40 0-22 by mouth ity o f mg tablet 20:06: daily. [place] [address] Medical Branch pantoprazol 2019-11 Yes 40mg Take 40 mg Univers e 0-22 by mouth ity of (PROTONIX) 20:06: daily. [place] [address] Medical tablet Branch citalopram 2019-11 Yes 20mg Take 20 mg U nivers (CELEXA) 20 0-22 by mouth ity of mg tablet 20:06: daily. [place] [address] Medical Branch rOPINIRole 2019-11 Yes 2mg Take 2 mg [facility] [place] (REQUIP) 2 0-22 by mouth ity o f mg tablet 20:06: at [place] [address] bedtime. Medical Branch tiZANidine 2019-11 Yes 2mg [...] 0-22 by mouth ity of 20:06: daily. [place] [address] Medical Branch DOCUSATE 2019-11 Yes 1{tbl} Take 1 Tab U nivers CALCIUM 0-22 by mouth ity of (STOOL 20:06: as needed [place] SOFTENER for Medical ORAL) Constipati Branch on. amLODIPine 2019-11 Yes 5mg Take 5 mg [place] 5 mg tablet 0-22 by mouth ity of 20:06: daily. [place] [address] Medical Branch furosemide 2019-11 Yes 20mg Take 20 mg U nivers (LASIX) 40 0-22 by mouth ity o f mg tablet 20:06: daily. [address] Branch pantoprazol 2019-11 Yes 40mg Take 40 mg Univers e 0-22 by mouth ity of (PROTONIX) 20:06: daily. [place] 40 mg [facility] Medical tablet Branch citalopram 2019-11 Yes 20mg Take 20 mg U nivers (CELEXA) 20 0-22 by mouth ity of mg tablet 20:06: daily. [place] [address] Medical Branch rOPINIRole 2019-11 Yes 2mg Take 2 mg [place] (REQUIP) 2 0-22 by mouth ity o f mg tablet 20:06: at [place] [address] bedtime. Medical Branch tiZANidine 2019-11 Yes 2mg [...] 0-22 by mouth ity of 20:06: daily. [address] Branch DOCUSATE 2019-11 Yes 1{tbl} Take 1 Tab U nivers CALCIUM 0-22 by mouth ity of (STOOL 20:06: as needed [place] SOFTENER 51 for Medical ORAL) Constipati Branch on. amLODIPine 2019-11 Yes 5mg Take 5 mg [place] 5 mg tablet 0-22 by mouth ity of 20:06: daily. [address] Branch clonazePAM 2019-11 Yes Univers 1 mg tablet 0-20 ity of 00:00: [place] [address] Medical Branch clonazePAM 2019-11 Yes Univers 1 mg tablet 0-20 ity of 00:00: [place] [address] Medical Branch clonazePAM 2019-11 Yes Univers 1 mg tablet 0-20 ity of 00:00: [address] Branch clonazePAM 2019-11 Yes Univers 1 mg tablet 0-20 ity of 00:00: [place] [address] Medical Branch clonazePAM 2019-11 Yes Univers 1 mg tablet 0-20 ity of 00:00: [address] Branch clonazePAM 2019-11 Yes Univers 1 mg tablet 0-20 ity of 00:00: [place] [facility] Branch clonazePAM 2020- Yes Univers 1 mg tablet 0-20 ity of 00:: [place] [address] Medical Branch clonazePAM 2020- Yes Univers 1 mg tablet 0-20 ity of 00:: [place] [address] Medical Branch clonazePAM 2019- Yes Univers 1 mg tablet 0-20 ity of 00:: [place] [facility] clonazePAM 2020- Yes Univers 1 mg tablet 0-20 ity of 00:: [place] [facility] clonazePAM 2019- Yes Univers 1 mg tablet 0-20 ity of 00:: [place] [facility] clonazePAM 2019- Yes Univers 1 mg tablet 0-20 ity of 00:: [place] [address] Medical Branch clonazePAM 2019- Yes Univers 1 mg tablet 0-20 ity of :: [place] [address] Medical Branch clonazePAM 2019- Yes Univers 1 mg tablet 0-20 ity of 00:: [place] [address] Medical Branch clonazePAM 2019- Yes Univers 1 mg tablet 0-20 ity of :: [place] [facility] clonazePAM 2019- Yes Univers 1 mg tablet 0-20 ity of 00:: [place] [facility] clonazePAM 2019- Yes Univers 1 mg tablet 0-20 ity of 00:: [place] [address] Medical Branch clonazePAM 2020- Yes Univers 1 mg tablet 0-20 ity of 00:: [address] Branch clonazePAM 2020- Yes Univers 1 mg tablet 0-20 ity of 00:: [address] Branch clonazePAM 2019- Yes Univers 1 mg tablet 0-20 ity of :: [place] [address] Medical Branch clonazePAM 2020- Yes Univers 1 mg tablet 0-20 ity of 00:00: [address] Branch indomethaci 2020- No 50mg Q.5D Take 1 Met hodi n (INDOCIN) 08-02 10-[address] 50 MG 00:00: 04:59 (50 mg [facility] capsule 00 :00 total) by l mouth 2 (two) times a day with meals for 30 days. tiZANidine 2019- No 2mg Q8H Take 1 Meth geovani (ZANAFLEX) 08-01 10-24 tablet (2 st 2 MG tablet 00:00: 04:59 mg total) [facility]ospita 00 :00 by mouth l every 8 (eight) hours as needed for muscle spasms for up to 30 days. [facility] 24 2019-0 Yes Univers mcg capsule 9-14 ity of 00:00: [place] [facility] 24 2019-0 Yes Univers mcg capsule 9-14 ity of 00:00: [place] [facility] 2019-0 Yes Univers mcg capsule 9-14 ity of 00:00: [place] [facility] 2019-0 Yes Univers mcg capsule 9-14 ity of 00:00: [place] [facility] 2019-0 Yes Univers mcg capsule 9-14 ity of 00:00: [place] [facility] 2019-0 Yes Univers mcg capsule 9-14 ity of 00:00: [place] [facility] 2019-0 Yes Univers mcg capsule 9-14 ity of 00:00: [place] [facility] 2019-0 Yes Univers mcg capsule 9-14 ity of 00:00: [place] [facility] 24 2019-0 Yes Univers mcg capsule 9-14 ity of 00:00: [place] [facility] 24 2019-0 Yes Univers mcg capsule 9-14 ity of 00:00: [place] 00 Medical [facility] 24 2019-0 Yes Univers mcg capsule 9-14 ity of 00:00: [place] 00 [facility] 24 2019-0 Yes Univers mcg capsule 9-14 ity of 00:00: [place] 00 Medical [facility] 24 2020-0 Yes Univers mcg capsule 9-14 ity of 00:00: [place] 00 Medical [facility] 24 2020-0 Yes Univers mcg capsule 9-14 ity of 00:00: [place] 00 Medical [facility] 2020-0 Yes Univers mcg capsule 9-14 ity of 00:00: [place] 00 Medical [facility] 24 2020-0 Yes Univers mcg capsule 9-14 ity of 00:00: [place] 00 Medical [facility] AMITIZA 24 2020-0 Yes Univers mcg capsule 9-14 ity of 00:00: [place] [facility] Univers mcg capsule 9-14 ity of 00:00: [place] 00 Medical [facility] AMITIZA 24 2020-0 Yes Univers mcg capsule 9-14 ity of 00:00: [place] [facility] Yes Univers mcg capsule 9-14 ity of 00:00: [place] [facility] Branch AMITIZA 24 2019-0 Yes Univers mcg capsule 9-14 ity of 00:00: [place] [facility] methocarbam 2020- No 500mg Q.25D Take 1 M ethodi oL 8- 02-[address] (Robaxin) 00:00: 00:00 (500 mg Hosp j[facility] 500 MG 00 :00 total) by l tablet mouth 4 (four) times a day as needed for muscle spasms. TRINTELLIX 0 Yes Univers 20 mg Tab 8-12 ity of 00:00: [place] [facility] TRINTELLIX 2019-0 Yes Univers 20 mg Tab 8-12 ity of 00:00: [place] [facility] TRINTELLIX 2019-0 Yes Univers 20 mg Tab 8-12 ity of 00:00: [place] [facility] TRINTELLIX 2019-0 Yes Univers 20 mg Tab 8-12 ity of 00:00: [place] [facility] TRINTELLIX 2019-0 Yes Univers 20 mg Tab 8-12 ity of 00:00: [place] [facility] TRINTELLIX 2019-0 Yes Univers 20 mg Tab 8-12 ity of 00:00: [place] [facility] TRINTELLIX 2019-0 Yes Univers 20 mg Tab 8-12 ity of 00:00: [place] [facility] TRINTELLIX 2019-0 Yes Univers 20 mg Tab 8-12 ity of 00:00: [place] [facility] TRINTELLIX 2019-0 Yes Univers 20 mg Tab 8-12 ity of 00:00: [place] [facility] TRINTELLIX 2019-0 Yes Univers 20 mg Tab 8-12 ity of 00:00: [place] [facility] TRINTELLIX 2019-0 Yes Univers 20 mg Tab 8-12 ity of 00:00: [place] [facility] TRINTELLIX 2019-0 2020- No Univer s 20 mg Tab 8-12 05-25 ity of 00:00: 00:00 [place] 00 :00 Medical Branch atorvastati 2018-11 Yes 20mg Take 20 mg Univers n 20 mg 0-10 by mouth. ity of tablet 00:00: [place] [facility] atorvastati 2018-11 Yes 20mg Take 20 mg Univers n 20 mg 0-10 by mouth. ity of tablet 00:00: [facility] 2018-11 Yes 20mg Take 20 mg Univers n 20 mg 0-10 by mouth. ity of tablet 00:00: [facility] Yes 20mg Take 20 mg Univers n 20 mg 0-10 by mouth. ity of tablet 00:00: [facility]11 Yes 20mg Take 20 mg Univers n 20 mg 0-10 by mouth. ity of tablet 00:00: [facility]11 Yes 20mg Take 20 mg Univers n 20 mg 0-10 by mouth. ity of tablet 00:00: [place] [facility] 2018-11 Yes 20mg Take 20 mg Univers n 20 mg 0-10 by mouth. ity of tablet 00:00: [facility] 2018-11 Yes 20mg Take 20 mg Univers n 20 mg 0-10 by mouth. ity of tablet 00:00: [place] [facility] 2018-11 Yes 20mg Take 20 mg Univers n 20 mg 0-10 by mouth. ity of tablet 00:00: [facility] 2018-11 Yes 20mg Take 20 mg Univers n 20 mg 0-10 by mouth. ity of tablet 00:00: [place] [facility] Yes 20[facility] Take 20 mg Univers n 20 mg 0-10 by mouth. ity of tablet 00:00: [place] [facility] 2018-11 Yes 20mg Take 20 mg Univers n 20 mg 0-10 by mouth. ity of tablet 00:00: [place] [facility] 2018-11 Yes 20mg Take 20 mg Univers n 20 mg 0-10 by mouth. ity of tablet 00:00: [place] [facility] 2018-11 Yes 20mg Take 20 mg Univers n 20 mg 0-10 by mouth. ity of tablet 00:00: [place] [facility] 2018-11 Yes 20mg Take 20 mg Univers n 20 mg 0-10 by mouth. ity of tablet 00:00: [place] [facility] 2018-11 Yes 20mg Take 20 mg Univers n 20 mg 0-10 by mouth. ity of tablet 00:00: Medical Branch atorvastati 2018-11 Yes 20mg Take 20 mg Univers n 20 mg 0-10 by mouth. ity of tablet 00:00: Medical Branch atorvastati 2018-11 Yes 20mg Take 20 mg Univers n 20 mg 0-10 by mouth. ity of tablet 00:00: Medical Branch atorvastati 2018-11 Yes 20mg Take 20 mg Univers n 20 mg 0-10 by mouth. ity of tablet 00:00: Medical Branch atorvastati 2018-11 Yes 20mg Take 20 mg Univers n 20 mg 0-10 by mouth. ity of tablet 00:00: Medical Branch atorvastati 2018-11 Yes 20mg Take 20 mg Univers n 20 mg 0-10 by mouth. ity of tablet 00:00: [place] [facility] amLODIPine 2017-0 Yes 5mg Take 5 mg [facility] 5 mg tablet 5-08 by mouth ity of 14:50: daily. [address] HYDROcodone 2018-0 Yes 1{tbl} Take 1 Un christie -acetaminop 5-08 tablet by ity of hen ([employer]) 14:50: mouth [place] 7.5-325 mg 10 every 6 Medica l per tablet (six) Branch hours as needed for Pain. HYDROcodone 2018-0 Yes 1{tbl} Take 1 Un [facility] -acetaminop 5-08 tablet by ity of hen ([employer]) 14:50: mouth [place] 7.5-325 mg 10 every 6 Medica l per tablet (six) Branch hours as needed for Pain. HYDROcodone 2018-0 Yes 1{tbl} Take 1 [facility] -acetaminop 5-08 tablet by ity of hen ([employer]) 14:50: mouth [place] 7.5-325 mg 10 every 6 Medica l per tablet (six) Branch hours as needed for Pain. HYDROcodone 2018-0 Yes 1{tbl} Take 1 [facility] [place] -acetaminop 5-08 tablet by ity of hen ([employer]) 14:50: mouth [place] 7.5-325 mg 10 every 6 Medica l per tablet (six) Branch hours as needed for Pain. HYDROcodone 2018-0 Yes 1{tbl} Take 1 [facility] [place] -acetaminop 5-08 tablet by ity of hen ([employer]) 14:50: mouth [place] 7.5-325 mg 10 every 6 Medica l per tablet (six) Branch hours as needed for Pain. HYDROcodone 2018-0 Yes 1{tbl} Take 1 [facility] [place] -acetaminop 5-08 tablet by ity of hen ([employer]) 14:50: mouth [place] 7.5-325 mg 10 every 6 Medica l per tablet (six) Branch hours as needed for Pain. HYDROcodone 2018-0 Yes 1{tbl} Take 1 Un [facility]ie -acetaminop 5-08 tablet by ity of [employer] ([employer]) 14:50: mouth [place] 7.5-325 mg 10 every 6 Medica l per tablet (six) Branch hours as needed for Pain. HYDROcodone 2018-0 Yes 1{tbl} Take 1 [facility] [place] -acetaminop 5-08 tablet by ity of [employer] ([employer]) 14:50: mouth [place] 7.5-325 mg 10 every 6 Medica l per tablet (six) Branch hours as needed for Pain. HYDROcodone 2018-0 Yes 1{tbl} Take 1 [place] -acetaminop 5-08 tablet by ity [employer] ([employer]) 14:50: mouth [place] 7.5-325 mg 10 every 6 Medica l per tablet (six) Branch hours as needed for Pain. HYDROcodone 2018-0 Yes 1{tbl} Take 1 [place] -acetaminop 5-08 tablet by ity [employer] ([employer]) 14:50: mouth [place] 7.5-325 mg 10 every 6 Medica l per tablet (six) Branch hours as needed for Pain. HYDROcodone 2018-0 Yes 1{tbl} Take 1 [place] -acetaminop 5-08 tablet by ity of hen ([employer]) 14:50: mouth [place] 7.5-325 mg 10 every 6 Medica l per tablet (six) Branch hours as needed for Pain. HYDROcodone 2018-0 Yes 1{tbl} Take 1 [place] -acetaminop 5-08 tablet by ity of hen ([employer]) 14:50: mouth [place] 7.5-325 mg 10 every 6 Medica l per tablet (six) Branch hours as needed for Pain. HYDROcodone 2018-0 Yes 1{tbl} Take 1 [place] -acetaminop 5-08 tablet by ity of hen ([employer]) 14:50: mouth [place] 7.5-325 mg 10 every [...] 5-08 by mouth ity of 14:49: daily. [place] [facility] Branch lisinopril 2017- Yes Take by Uni vers (PRINIVIL,Z 5-08 mouth ity of ESTRIL) 40 14:49: daily. [place] mg tablet 02 [facility] multivitami Yes 1{tbl} Take 1 Tab Univers n tablet 5-08 by mouth ity of 14:49: daily. [place] [facility] Branch lisinopril Yes Take by Uni vers (PRINIVIL,Z 5-08 mouth ity of ESTRIL) 40 14:49: daily. [place] mg tablet 02 [facility] multivitami Yes 1{tbl} Take 1 Tab Univers n tablet 5-08 by mouth ity of 14:49: daily. [place] [facility] Branch lisinopril Yes Take by Uni vers (PRINIVIL,Z 5-08 mouth ity of ESTRIL) 40 14:49: daily. [place] mg tablet 02 [facility] Branch multivitami Yes 1{tbl} Take 1 Tab Univers n tablet 5-08 by mouth ity of 14:49: daily. [place] [facility] Branch lisinopril Yes Take by Uni vers (PRINIVIL,Z 5-08 mouth ity of ESTRIL) 40 14:49: daily. [place] mg tablet 02 [facility] Branch multivitami Yes 1{tbl} Take 1 Tab Univers n tablet 5-08 by mouth ity of 14:49: daily. [place] [facility] Branch lisinopril Yes Take by Uni vers (PRINIVIL,Z 5-08 mouth ity of ESTRIL) 40 14:49: daily. [place] mg tablet 02 [facility] multivitami 0 Yes 1{tbl} Take 1 Tab Univers n tablet 5-08 by mouth ity of 14:49: daily. Medical Branch lisinopril 2017-0 Yes Take by Uni vers (PRINIVIL,Z 5-08 mouth ity of ESTRIL) 40 14:49: daily. [place] mg tablet 02 Medical Branch multivitami 2017-0 Yes 1{tbl} Take 1 Tab Univers n [...] ity of 14:49: daily. Medical Branch lisinopril 2018-0 Yes Take by Uni vers (PRINIVIL,Z 5-08 mouth ity of ESTRIL) 40 14:49: daily. [place] mg tablet 02 Medical Branch multivitami 0 Yes 1{tbl} Take 1 Tab Univers n tablet 5-08 by mouth ity of 14:49: daily. [place] [facility] Branch lisinopril Yes Take by Uni vers (PRINIVIL,Z 5-08 mouth ity of ESTRIL) 40 14:49: daily. [place] mg tablet Medical Branch furosemide Yes 20mg Take 20 mg U nivers (LASIX) 40 5-08 by mouth ity o f mg tablet 14:49: daily. [address] Branch pantoprazol Yes 40mg Take 40 mg Univers e 5-08 by mouth ity of (PROTONIX) 14:49: daily. [place] 40 mg EC Medical [facility] Branch citalopram Yes 20mg Take 20 mg U nivers (CELEXA) 20 5-08 by mouth ity of mg tablet 14:49: daily. [address] Branch traZODONE Yes 50mg Take 50 mg [facility] (DESYREL) 5-08 by mouth ity of 50 mg 14:49: at [facility] 02 bedtime. Medical Branch rOPINIRole Yes 2mg Take 2 mg [place] (REQUIP) 2 5-08 by mouth ity o f mg tablet 14:49: at [place] 02 bedtime. Medical Branch tiZANidine Yes 2mg [...] 5-08 by mouth ity of 14:49: daily. [address] Branch BIOTIN ORAL 0 Yes 1{tbl} Take 1 Tab Univers 5-08 by mouth ity of 14:49: daily. [address] Branch levothyroxi Yes [id number] TAKE 1 Univers ne 25 mcg 5-08 TABLET BY ity o f tablet 00:00: MOUTH IN [place] THE Medical MORNING Branch levothyroxi 0 Yes [id number] TAKE 1 Univers ne 25 mcg 5-08 TABLET BY ity o f tablet 00:00: MOUTH IN [place] 00 THE Medical MORNING Branch levothyroxi 2018-0 Yes [id number] TAKE 1 Univers ne 25 mcg 5-08 TABLET BY ity o f tablet 00:00: MOUTH IN [place] 00 THE Medical MORNING Branch levothyroxi 2018-0 Yes [id number] TAKE 1 Univers ne 25 mcg 5-08 TABLET BY ity o f tablet 00:00: MOUTH IN [place] 00 THE Medical MORNING Branch levothyroxi 2018-0 Yes [id number] TAKE 1 Univers ne 25 mcg 5-08 TABLET BY ity o f tablet 00:00: MOUTH IN [place] 00 THE Medical MORNING Branch levothyroxi 2018-0 Yes [id number] TAKE 1 Univers ne 25 mcg 5-08 TABLET BY ity o f tablet 00:00: MOUTH IN [place] 00 THE Medical MORNING Branch levothyroxi 2018-0 Yes [id number] TAKE 1 Univers ne 25 mcg 5-08 TABLET BY ity o f tablet 00:00: MOUTH IN [place] 00 THE Medical MORNING Branch levothyroxi 2018-0 Yes [id number] TAKE 1 Univers ne 25 mcg 5-08 TABLET BY ity o f tablet 00:00: MOUTH IN [place] 00 THE Medical MORNING Branch levothyroxi 2018-0 Yes [id number] TAKE 1 Univers ne 25 mcg 5-08 TABLET BY ity o f tablet 00:00: MOUTH IN [place] 00 THE Medical MORNING Branch levothyroxi 2018-0 Yes [id number] TAKE 1 Univers ne 25 mcg 5-08 TABLET BY ity o f tablet 00:00: MOUTH IN [place] 00 THE Medical MORNING Branch levothyroxi 2018-0 Yes [id number] TAKE 1 Univers ne 25 mcg 5-08 TABLET BY ity o f tablet 00:00: MOUTH IN [place] 00 THE Medical MORNING Branch levothyroxi 2018-0 Yes [id number] TAKE 1 Univers ne 25 mcg 5-08 TABLET BY ity o f tablet 00:00: MOUTH IN [place] 00 THE Medical MORNING Branch levothyroxi 2018-0 Yes [id number] TAKE 1 Univers ne 25 mcg 5-08 TABLET BY ity o f tablet 00:00: MOUTH IN [place] 00 THE Medical MORNING Branch levothyroxi 2018-0 Yes [id number] TAKE 1 Univers ne 25 mcg 5-08 TABLET BY ity o f tablet 00:00: MOUTH IN [place] 00 THE Medical MORNING Branch levothyroxi 2018-0 Yes [id number] TAKE 1 Univers ne 25 mcg 5-08 TABLET BY ity o f tablet 00:00: MOUTH IN [place] 00 THE Medical MORNING Branch levothyroxi 2018-0 Yes [id number] TAKE 1 Univers ne 25 mcg 5-08 TABLET BY ity o f tablet 00:00: MOUTH IN [place] 00 THE Medical MORNING Branch levothyroxi 2018-0 Yes [id number] TAKE 1 Univers ne 25 mcg 5-08 TABLET BY ity o f tablet 00:00: MOUTH IN [place] 00 THE Medical MORNING Branch levothyroxi 2018-0 Yes [id number] TAKE 1 Univers ne 25 mcg 5-08 TABLET BY ity o f tablet 00:00: MOUTH IN [place] 00 THE Medical MORNING Branch levothyroxi 2017-0 Yes [id number] TAKE 1 Univers ne 25 mcg 5-08 TABLET BY ity o f tablet 00:00: MOUTH IN [place] 00 THE Medical MORNING Branch levothyroxi 2017-0 Yes [id number] TAKE 1 Univers ne 25 mcg 5-08 TABLET BY ity o f tablet 00:00: MOUTH IN [place] 00 THE Medical MORNING Branch levothyroxi 2017-0 Yes [id number] TAKE 1 Univers ne 25 mcg 5-08 TABLET BY ity o f tablet 00:00: MOUTH IN [place] 00 THE Medical MORNING Branch levothyroxi 2017-0 Yes [id number] TAKE 1 Univers ne 25 mcg 5-08 TABLET BY ity o f tablet 00:00: MOUTH IN [place] 00 THE Medical MORNING Branch levothyroxi 2017-0 Yes [id number] TAKE 1 Univers ne 25 mcg 5-08 TABLET BY ity o f tablet 00:00: MOUTH IN [place] 00 THE Medical MORNING Branch metoprolol Yes [...] 10 ORAL) 43 daily. Medical Branch metoprolol 2018-0 Yes 25mg Take 25 mg U nivers tartrate 2-20 by mouth ity of (LOPRESSOR) 17:35: [place] 25 [place] 43 Medical tablet Branch POTASSIUM 2018-0 Yes 10meq Take 10 Univ ers CHLORIDE 2-20 mEq by ity of (KLOR-CON 17:35: mouth [place] 10 ORAL) 43 daily. Medical Branch metoprolol 2018-0 Yes 25mg Take 25 mg U nivers tartrate 2-20 by mouth ity of (LOPRESSOR) 17:[place] 43 Medical tablet Branch POTASSIUM 20180 Yes 10meq Take 10 Univ ers CHLORIDE 2-20 mEq by ity of (KLOR-CON 17:35: mouth [place] 10 ORAL) 43 daily. Medical Branch metoprolol 2018-0 Yes 25mg Take 25 mg U nivers [...] 25 mg 43 Medical tablet Branch POTASSIUM 20180 Yes 10meq Take 10 Univ ers CHLORIDE 2-20 mEq by ity of (KLOR-CON 17:35: mouth [place] 10 ORAL) 43 daily. Medical Branch metoprolol 2018-0 Yes 25mg Take 25 mg U nivers tartrate 2-20 by mouth ity of (LOPRESSOR) 17:35[place] 25 [place] 43 [place] tablet Branch POTASSIUM 20180 Yes 10meq Take 10 Univ ers CHLORIDE 2-20 mEq by ity of (KLOR-CON 17:35: mouth [place] 10 ORAL) 43 daily. Medical Branch metoprolol 2018-0 Yes 25mg Take 25 mg U nivers [...] [place] 10 ORAL) 43 daily. Medical Branch acetaminoph Yes Take by [...] by mouth ity of tablet 18:23: daily. [facility] Yes Take by Un christie en 08-04 mouth ity of (TYLENOL) 18:23: every 6 [place] 325 mg 06 (six) Medical tablet hours as Branch needed for Pain (scale 1-3). aspirin 81 0 Yes 81mg Take 81 mg U nivers mg EC 9-26 by mouth ity of tablet 18:23: daily. [facility] Yes Take by Un christie en 08-04 mouth ity of (TYLENOL) 18:23: every 6 [place] 325 mg 06 (six) Medical tablet hours as Branch needed for Pain (scale 1-3). aspirin 81 Yes 81mg Take 81 mg U nivers mg EC 9-26 by mouth ity of tablet 18:23: daily. [facility] Yes Take by Un christie en 08-04 mouth ity of (TYLENOL) 18:23: every 6 [place] 325 mg 06 (six) Medical tablet hours as Branch needed for Pain (scale 1-3). aspirin 81 Yes 81mg Take 81 mg U nivers mg EC 9-26 by mouth ity of tablet 18:23: daily. [facility] Yes Take by Un christie en 08-04 mouth ity of (TYLENOL) 18:23: every 6 [place] 325 mg 06 (six) Medical tablet hours as Branch needed for Pain (scale 1-3). aspirin 81 2015-0 Yes 81mg Take 81 mg U nivers mg EC 9-26 by mouth ity of tablet 18:23: daily. [facility] Yes Take by Un christie en 08-04 mouth ity of (TYLENOL) 18:23: every 6 [place] 325 mg 06 (six) Medical tablet hours as Branch needed for Pain (scale 1-3). aspirin 81 2015-0 Yes 81mg Take 81 mg U nivers mg EC 9-26 by mouth ity of tablet 18:23: daily. [facility] acetaminoph Yes Take by Un christie en 08-04 mouth ity of (TYLENOL) 18:23: every 6 [place] 325 mg 06 (six) Medical tablet hours as Branch needed for Pain (scale 1-3). aspirin 81 2015-0 Yes 81mg Take 81 mg U nivers mg EC 9-26 by mouth ity of tablet 18:23: daily. [facility] acetaminoph Yes Take by Un christie en 08-04 mouth ity of (TYLENOL) 18:23: every 6 [place] 325 mg 06 (six) Medical tablet hours as Branch needed for Pain (scale 1-3). aspirin 81 Yes 81mg Take 81 mg U nivers mg EC 9-26 by mouth ity of tablet 18:23: daily. [facility] acetamino Yes Take by Un christie en 08-04 mouth ity of (TYLENOL) 18:23: every 6 [place] 325 mg 06 (six) Medical tablet hours as Branch needed for Pain (scale 1-3). aspirin 81 Yes 81mg Take 81 mg U nivers mg EC 9-26 by mouth ity of tablet 18:23: daily. [facility] acetaminoph Yes Take by Un christie en 08-04 mouth ity of (TYLENOL) 18:23: every 6 [place] 325 mg 06 (six) Medical tablet hours as Branch needed for Pain (scale 1-3). aspirin 81 0 Yes 81mg Take 81 mg U nivers mg EC 9-26 by mouth ity of tablet 18:23: daily. [facility] acetaminoph Yes Take by Un christie en 08-04 mouth ity of (TYLENOL) 18:23: every 6 [place] 325 mg 06 (six) Medical tablet hours as Branch needed for Pain (scale 1-3). aspirin 81 2015-0 Yes 81mg Take 81 mg U nivers mg EC 9-26 by mouth ity of tablet 18:23: daily. [facility] acetaminoph Yes Take by Un christie en 08-04 mouth ity of (TYLENOL) 18:23: every 6 [place] 325 mg 06 (six) Medical tablet hours as Branch needed for Pain (scale 1-3). aspirin 81 Yes 81mg Take 81 mg U nivers mg EC 08-04 by mouth ity of tablet 18:23: daily. [place] [id number] Medical Branch meloxicam Yes TAKE 1 Univer s (MOBIC) [...] Medical MORNING Branch AFTER BREAKFAST proMETHazin Yes [id number] 25mg Take 1 Tab Univers e 4-01 by mouth ity of (PHENERGAN) 00:00: every 6 [place] 25 mg 00 (six) Medical tablet hours as Branch needed for Nausea and Vomiting (N/V). proMETHazin Yes [id number] 25mg Take 1 Tab Univers e 4-01 by mouth ity of (PHENERGAN) 00:00: every 6 [place] 25 mg 00 (six) Medical tablet hours as Branch needed for Nausea and Vomiting (N/V). proMETHazin Yes [id number] 25mg Take 1 Tab Univers e 4-01 by mouth ity of (PHENERGAN) 00:00: every 6 [place] 25 mg 00 (six) Medical tablet hours as Branch needed for Nausea and Vomiting (N/V). proMETHazin Yes [id number] 25mg Take 1 Tab Univers e 4-01 by mouth ity of (PHENERGAN) 00:00: every 6 [place] 25 mg 00 (six) Medical tablet hours as Branch needed for Nausea and Vomiting (N/V). proMETHazin Yes [id number] 25mg Take 1 Tab Univers e 4-01 by mouth ity of (PHENERGAN) 00:00: every 6 [place] 25 mg 00 (six) Medical tablet hours as Branch needed for Nausea and Vomiting (N/V). proMETHazin Yes [id number] 25mg Take 1 Tab Univers e 4-01 by mouth ity of (PHENERGAN) 00:00: every 6 [place] 25 mg 00 (six) Medical tablet hours as Branch needed for Nausea and Vomiting (N/V). proMETHazin Yes [id number] 25mg Take 1 Tab Univers e 4-01 by mouth ity of (PHENERGAN) 00:00: every 6 [place] 25 mg 00 (six) Medical tablet hours as Branch needed for Nausea and Vomiting (N/V). proMETHazin Yes [id number] 25mg Take 1 Tab Univers e 4-01 by mouth ity of (PHENERGAN) 00:00: every 6 [place] 25 mg 00 (six) Medical tablet hours as Branch needed for Nausea and Vomiting (N/V). proMETHazin Yes [id number] 25mg Take 1 Tab Univers e 4-01 by mouth ity of (PHENERGAN) 00:00: every 6 [place] 25 mg 00 (six) Medical tablet hours as Branch needed for Nausea and Vomiting (N/V). proMETHazin Yes [id number] 25mg Take 1 Tab Univers e 4-01 by mouth ity of (PHENERGAN) 00:00: every 6 [place] 25 mg 00 (six) Medical tablet hours as Branch needed for Nausea and Vomiting (N/V). proMETHazin Yes [id number] 25mg Take 1 Tab Univers e 4-01 by mouth ity of (PHENERGAN) 00:00: every 6 [place] 25 mg 00 (six) Medical tablet hours as Branch needed for Nausea and Vomiting (N/V). proMETHazin Yes [id number] 25mg Take 1 Tab Univers e 4-01 by mouth ity of (PHENERGAN) 00:00: every 6 [place] 25 mg 00 (six) Medical tablet hours as Branch needed for Nausea and Vomiting (N/V). proMETHazin Yes [id number] 25mg Take 1 Tab Univers e 4-01 by mouth ity of (PHENERGAN) 00:00: every 6 [place] 25 mg 00 (six) Medical tablet hours as Branch needed for Nausea and Vomiting (N/V). proMETHazin Yes [id number] 25mg Take 1 Tab Univers e 4-01 by mouth ity of (PHENERGAN) 00:00: every 6 [place] 25 mg 00 (six) Medical tablet hours as Branch needed for Nausea and Vomiting (N/V). proMETHazin 2015- Yes [id number] 25mg Take 1 Tab Univers e 4-01 by mouth ity of (PHENERGAN) 00:00: every 6 [place] 25 mg 00 (six) Medical tablet hours as Branch needed for Nausea and Vomiting (N/V). proMETHazin Yes [id number] 25mg Take 1 Tab Univers e 4-01 by mouth ity of (PHENERGAN) 00:00: every 6 [place] 25 mg 00 (six) Medical tablet hours as Branch needed for Nausea and Vomiting (N/V). proMETHazin Yes [id number] 25mg Take 1 Tab Univers e 4-01 by mouth ity of (PHENERGAN) 00:00: every 6 [place] 25 mg 00 (six) Medical tablet hours as Branch needed for Nausea and Vomiting (N/V). proMETHazin Yes [id number] 25mg Take 1 Tab Univers e 4-01 by mouth ity of (PHENERGAN) 00:00: every 6 [place] 25 mg 00 (six) Medical tablet hours as Branch needed for Nausea and Vomiting (N/V). proMETHazin Yes [id number] 25mg Take 1 Tab Univers e 4-01 by mouth ity of (PHENERGAN) 00:00: every 6 [place] 25 mg 00 (six) Medical tablet hours as Branch needed for Nausea and Vomiting (N/V). proMETHazin Yes [id number] 25mg Take 1 Tab Univers e 4-01 by mouth ity of (PHENERGAN) 00:00: every 6 [place] 25 mg 00 (six) Medical tablet hours as Branch needed for Nausea and Vomiting (N/V). proMETHazin Yes [id number] 25mg Take 1 Tab Univers e 4-01 by mouth ity of (PHENERGAN) 00:00: every 6 [place] 25 mg 00 (six) Medical tablet hours as Branch needed for Nausea and Vomiting (N/V). proMETHazin Yes [id number] 25mg Take 1 Tab Univers e 4-01 by mouth ity of (PHENERGAN) 00:00: every 6 [place] 25 mg 00 (six) Medical tablet hours as Branch needed for Nausea and Vomiting (N/V). proMETHazin Yes [id number] 25mg Take 1 Tab Univers e 4-01 [...] Immunizations Ordered Filled Immunization Date Status Comments [facility] Immunization Name Name Pneumococcal 2020-09-12 Completed [...] 2020-09-12 Completed University o f Polysaccharide, 00:00:00 [place] [facility] ical PPSV23 (PNEUMOVAX) Branch Influenza Virus 2019-08-18 Completed Universit y of Vaccine Quad IM 00:00:00 [place] [facility] Multi-dose 6+ MO Branch Zoster(Zostavax)( 2019-08-18 Completed Unive rsity of dayne) 00:00:00 [facility] Influenza Virus 2019-08-18 Completed Universit y of Vaccine Quad IM 00:00:00 [place] [facility] Multi-dose 6+ MO Branch Zoster(Zostavax)( 2019-08-18 Completed Unive rsity of dayne) 00:00:00 [facility] Influenza Virus 2019-08-18 Completed Universit y of Vaccine Quad IM 00:00:00 [place] [facility] Multi-dose 6+ MO Branch Zoster(Zostavax)( 2019-08-18 Completed Unive rsity of dayne) 00:00:00 [facility] Influenza Virus 2019-08-18 Completed Universit y of Vaccine Quad IM 00:00:00 [place] [facility] Multi-dose 6+ MO Branch Zoster(Zostavax)( 2019-08-18 Completed Unive rsity of dayne) 00:00:00 [facility] Influenza Virus 2019-08-18 Completed Universit y of Vaccine Quad IM 00:00:00 [place] [facility] Multi-dose 6+ MO Branch Zoster(Zostavax)( 2019-08-18 Completed Unive rsity of dayne) 00:00:00 [facility] Influenza Virus 2019-08-18 Completed Universit y of Vaccine Quad IM 00:00:00 [place] [facility] Multi-dose 6+ MO Branch Zoster(Zostavax)( 2019-08-18 Completed Unive rsity of dayne) 00:00:00 [facility] Influenza Virus 2019-08-18 Completed Universit y of Vaccine Quad IM 00:00:00 [place] [facility] Multi-dose 6+ MO Branch Zoster(Zostavax)( 2019-08-18 Completed Unive rsity of ingles) 00:00:00 [facility] Influenza Virus 2019-08-18 Completed Universit y of Vaccine Quad IM 00:00:00 [place] [facility] Multi-dose 6+ MO Branch Zoster(Zostavax)( 2019-08-18 Completed Unive rsity of ingles) 00:00:00 [facility] Influenza Virus 2019-08-18 Completed Universit y of Vaccine Quad IM 00:00:00 [place] [facility] Multi-dose 6+ MO Branch Zoster(Zostavax)( 2019-08-18 Completed Unive rsity of ingles) 00:00:00 [facility] Influenza Virus 2019-08-18 Completed Universit y of Vaccine Quad IM 00:00:00 [place] [facility] Multi-dose 6+ MO Branch Zoster(Zostavax)( 2019-08-18 Completed Unive rsity of ingles) 00:00:00 [facility] Influenza Virus 2019-08-18 Completed Universit y of Vaccine Quad IM 00:00:00 [place] [facility] Multi-dose 6+ MO Branch Zoster(Zostavax)( 2019-08-18 Completed Unive rsity of ingles) 00:00:00 [facility] Influenza Virus 2019-08-18 Completed Universit y of Vaccine Quad IM 00:00:00 [place] [facility] Multi-dose 6+ MO Branch Zoster(Zostavax)( 2019-08-18 Completed Unive rsity of ingles) 00:00:00 [facility] Influenza Virus 2019-08-18 Completed Universit y of Vaccine Quad IM 00:00:00 [place] [facility] Multi-dose 6+ MO Branch Zoster(Zostavax)( 2019-08-18 Completed Unive rsity of ingles) 00:00: [facility] Influenza Virus 2019-08-18 Completed Universit y of Vaccine Quad IM 00:00:00 [place] [facility] Multi-dose 6+ MO Branch Zoster(Zostavax)( 2019-08-18 Completed Unive rsity of ingles) 00:00:00 [facility] Influenza Virus 2019-08-18 Completed Universit y of Vaccine Quad IM 00:00:00 [place] Med ical Multi-dose 6+ MO Branch Zoster(Zostavax)( 2019-08-18 Completed Unive rsity of ingles) 00:00:00 [facility] Branch Influenza Virus 2019-08-18 Completed Universit y of Vaccine Quad IM 00:00:00 [facility] ical Multi-dose 6+ MO Branch Zoster(Zostavax)( 2019-08-18 Completed Unive rsity of ingles) 00:00:00 [facility] Branch Zoster(Zostavax)( 2019-05-02 Completed Unive rsity of ingles) 00:00:00 [facility] Branch Zoster(Zostavax)( 2019-05-02 Completed Unive rsity of ingles) 00:00:00 [facility] Branch Zoster(Zostavax)( 2019-05-02 Completed Unive rsity of ingles) 00:00:00 [facility] Branch Zoster(Zostavax)( 2019-05-02 Completed Unive rsity of ingles) 00:00:00 [facility] Branch Zoster(Zostavax)( 2019-05-02 Completed Unive rsity of ingles) 00:00:00 [facility] Branch Zoster(Zostavax)( 2019-05-02 Completed Unive rsity of ingles) 00:00:00 [facility] Branch Zoster(Zostavax)( 2019-05-02 Completed Unive rsity of ingles) 00:00:00 [facility] Branch Zoster(Zostavax)( 2019-05-02 Completed Unive rsity of ingles) 00:00:00 [facility] Branch Zoster(Zostavax)( 2019-05-02 Completed Unive rsity of ingles) 00:00:00 [facility] Branch Zoster(Zostavax)( 2019-05-02 Completed Unive rsity of ingles) 00:00:00 [facility] Branch Zoster(Zostavax)( 2019-05-02 Completed Unive rsity of ingles) 00:00:00 [facility] Branch Zoster(Zostavax)( 2019-05-02 Completed Unive rsity of ingles) 00:00:00 [facility] Branch Zoster(Zostavax)( 2019-05-02 Completed Unive rsity of ingles) 00:00:00 [facility] Zoster(Zostavax)( 2019-05-02 Completed Unive rsity of ingles) 00:00:00 [facility] Zoster(Zostavax)( 2019-05-02 Completed Unive rsity of ingles) 00:00:00 [facility] Zoster(Zostavax)( 2019-05-02 Completed Unive rsity of ingles) 00:00:00 [facility] Influenza Virus 2016-08-04 Completed Universit y of Vaccine Quad IM 3+ 00:00:00 [facility] Influenza Virus 2016-08-04 Completed Universit y of Vaccine Quad IM 3+ 00:00:00 [facility] Influenza Virus 2016-08-04 Completed Universit y of Vaccine Quad IM 3+ 00:00:00 [facility] Influenza Virus 2016-08-04 Completed Universit y of Vaccine Quad IM 3+ 00:00:00 [facility] Influenza Virus 2016-08-04 Completed Universit y of Vaccine Quad IM 3+ 00:00:00 [facility] Influenza Virus 2016-08-04 Completed Universit y of Vaccine Quad IM 3+ 00:00:00 [facility] Influenza Virus 2016-08-04 Completed Universit y of Vaccine Quad IM 3+ 00:00:00 [facility] Influenza Virus 2016-08-04 Completed Universit y of Vaccine Quad IM 3+ 00:00:00 [facility] Influenza Virus 2016-08-04 Completed Universit y of Vaccine Quad IM 3+ 00:00:00 [facility] Influenza Virus 2016-08-04 Completed Universit y of Vaccine Quad IM 3+ 00:00:00 [facility] Influenza Virus 2016-08-04 Completed Universit y of Vaccine Quad IM 3+ 00:00:00 [facility] Influenza Virus 2016-08-04 Completed Universit y of Vaccine Quad IM 3+ 00:00:00 [facility] Influenza Virus 2016-08-04 Completed Universit y of Vaccine Quad IM 3+ 00:00:00 [facility] Influenza Virus 2016-08-04 Completed Universit y of Vaccine Quad IM 3+ 00:00:00 [facility] Influenza Virus 2016-08-04 Completed Universit y of Vaccine Quad IM 3+ 00:00:00 [facility] Influenza Virus 2016-08-04 Completed Universit y of Vaccine Quad IM 3+ 00:00:00 [facility] Influenza Virus 2016-08-04 Completed Universit y of Vaccine Quad IM 3+ 00:00:00 [facility] Influenza Virus 2016-08-04 Completed Universit y of Vaccine Quad IM 3+ 00:00:00 [facility] Influenza Virus 2016-08-04 Completed Universit y of Vaccine Quad IM 3+ 00:00:00 [facility] Influenza Virus 2016-08-04 Completed Universit y of Vaccine Quad IM 3+ 00:00:00 [facility] Influenza Virus 2016-08-04 Completed Universit y of Vaccine Quad IM 3+ 00:00:00 [facility] Influenza Virus 2016-08-04 Completed Universit y of Vaccine Quad IM 3+ 00:00:00 [facility] Influenza Virus 2016-08-04 Completed Universit y of Vaccine Quad IM 3+ 00:00:00 [facility] Vital Signs Vital Name Observation Time Observation Value Comments Source Systolic blood 2021-05-31 21:42:00 145 mm[Hg] Univer sity of pressure [facility] Diastolic blood 2021-05-31 21:42:00 88 mm[Hg] Unive rsity of [facility] Heart rate 2021-05-31 21:41:00 69 /min [facility] Body height 2021-05-31 21:41:00 167.6 cm [facility] Body weight 2021-05-31 21:41:00 67.586 kg [facility] BMI 2021-05-31 21:41:00 24.05 kg/m2 [facility] Respiratory rate 2021-04-03 17:09:00 20 /min Univ ersity [facility] Oxygen saturation in 2021-04-03 17:09:00 94 /min [facility] Arterial blood by [facility] Pulse oximetry Branch Systolic blood 2021-04-03 16:32:00 133 mm[Hg] Univer sity of pressure [facility] Diastolic blood 2021-04-03 16:32:00 62 mm[Hg] Unive rsity of pressure [facility] Heart rate 2021-04-03 16:32:00 51 /min [facility] Body temperature 2021-04-03 16:32:00 36.89 Farnaz Univ ersity of [facility] Body height 2021-04-02 07:24:00 167.6 cm Universi ty of [place] [facility] Body weight 2021-04-02 00:32:00 70.761 kg Universi ty of [place] [facility] BMI 2021-04-02 00:32:00 25.18 kg/m2 Universi ty of [facility] Systolic blood 2021-03-04 20:21:00 123 mm[Hg] Univer sity of pressure [facility] Branch Diastolic blood 2021-03-04 20:21:00 74 mm[Hg] Unive rsity of pressure [facility] Heart rate 2021-03-04 20:21:00 69 /min Universi ty of [facility] Body height 2021-03-04 20:21:00 167.6 cm [facility]i ty of [place] [facility] Body weight 2021-03-04 20:21:00 70.761 kg Universi ty of [facility] BMI 2021-03-04 20:21:00 25.18 kg/m2 Universi ty of [facility] Oxygen saturation in 2021-03-04 20:21:00 100 /min [facility] Arterial blood by [facility] Pulse oximetry Branch Systolic blood 2020-08-30 20:05:00 156 mm[Hg] Univer sity of pressure [facility] Branch Diastolic blood 2020-08-30 20:05:00 81 mm[Hg] Unive rsity of pressure [facility] Heart rate 2020-08-30 20:05:00 62 /min Universi ty of [facility] Body temperature 2020-08-30 20:05:00 36.67 Farnaz Univ ersity of [facility] Respiratory rate 2020-08-30 20:05:00 16 /min Univ ersity of [facility] Body height 2020-08-30 20:05:00 167.6 cm Universi ty of [facility] Body weight 2020-08-30 20:05:00 71.578 kg [facility]i [facility] [place] [facility] BMI 2020-08-30 20:05:00 25.47 kg/m2 Universi ty of [facility] Systolic blood 2021-08-02 15:28:00 166 mm[Hg] [facility] Diastolic blood 2021-08-02 15:28:00 79 mm[Hg] [facility] pressure Heart rate 2021-08-02 15:28:00 57 /min [facility] Body temperature 2021-08-02 15:28:00 36.89 Farnaz [facility] Respiratory rate 2021-08-02 15:28:00 18 /min [facility] Oxygen saturation in 2021-08-02 15:28:00 98 /min [facility] Arterial blood by Pulse oximetry Body height 2020-12-13 14:13:00 170.2 cm [facility] Body weight 2020-12-13 14:13:00 72.774 kg [facility] BMI 2020-12-13 14:13:00 25.13 kg/m2 [facility] Procedures Procedure Date / Time Performing Source Performed Clinician REFERRAL- REQUEST/RESPONSE 2022-01-01 Doctor Unassigned, [facility] 06:01:00 [facility] PHYSICIAN ORDERS 2021-09-17 Doctor Unassigned, [facility] 06:01:00 [facility] XR SHOULDER 2+ VIEWS RIGHT 2021-08-26 Gerald Curran [place] [facility] 15:52:14 MRI BRAIN WO CONTRAST 2021-08-09 Isabel Snow [place] [facility] 15:20:51 CELL COUNT AND DIFFERENTIAL, 2021-08-[address] [facility] BODY FLUID 21:32:00 NM BONE SCAN 3 PHASE 2021-08-[facility]00 CT UPPER EXTREMITY WO RIGHT 2021-08-02 Tae Salazar [facility] 18:25:00 FL RAD NEEDLE ASPIRATION 2021-08-02 Tae Salazar [facility] 16:51:02 JOINT FLUID CULTURE 2021-08-02 Tae Salazar [facility] 16:25:00 ANAEROBIC CULTURE 2021-08-02 Tae Salazar [facility] 16:25:00 FUNGUS CULTURE 2021-08-02 Tae Salazar [facility] 16:25:00 AFB CULTURE 2021-08-02 Tae Salazar [facility] 16:25:00 FUNGUS SMEAR 2021-08-02 Tae Salazar [facility] 16:25:00 AFB STAIN 2021-08-02 Charles T[facility] 16:25:00 REFERRAL- REQUEST/RESPONSE 2021-04-30 [facility] BASIC METABOLIC PANEL (NA, K, 2021-04-03 [facility], CO2, GLUCOSE, BUN, 10:03:00 [facility] ran CREATININE, CA) ELECTROENCEPHALOGRAM 2021-04-[address] [facility] 00:00:00 [facility] URINE CULTURE 2021-04-02 Haider Steven [facility] xas 03:50:00 [facility] TROPONIN I 2021-04-02 Haider [facility] xa 02:06:00 [facility] HEPATIC FUNCTION PANEL 2021-04-02 Haider Steven [facility] ([id number]) (ALB,T.PRO,BILI 02:06:00 [facility] Branch T,BU/BC,ALT,AST,ALK PHOS) BASIC METABOLIC PANEL (NA, K, 2021-04-02 Steven Maloney [facility] CL, CO2, GLUCOSE, BUN, 02:06:00 [facility] CREATININE, CA) ETHANOL 2021-04-02 Haider [facility] xa 02:06:00 [facility] N-TERMINAL PRO-BNP 2021-04-02 Hermila [facility] 02:06:00 [facility] COVID-19 (ID NOW RAPID 2021-04-02 Haider [facility] TESTING) 02:06:00 [facility] CT HEAD WO CONTRAST 2021-04-02 Steven Maloney [facility] 01:42:34 [facility] XR CHEST 1 VW 2021-04-02 Haider [facility]as 01:20:37 [facility] AC PANEL 20 + LACTIC ACID 2021-04-02 Steven Maloney [facility] 01:13:00 [facility] URINE DRUG (IMMUNOASSAY) - 2021-04-[address] [facility] COMPREHENSIVE DRUG SCREEN 01:12:00 [facility] CBC WITH DIFF 2021-04-02 Haider Steven [facility] xas 01:12:00 Medical Branch PROTHROMBIN TIME / INR 2021-04-02 Steven Maloney [facility] 01:12:00 Medical Branch ACTIVATED PARTIAL THRMPLAS 2021-04-[address] [facility] MAMTA 01:12:00 Medical Branch URINALYSIS 2021-04-02 Steven Maloney [facility] xas 01:11:00 Medical Branch HB ECG ROUTINE & RHYTHM STRIP 2021-04-02 Steven Maloney [facility] 01:06:28 Medical Branch NOTICE OF PRIVACY PRACTICES 2021-04-02 Doctor Unassigned, U [facility] 00:25:37 [facility] CONSENT/REFUSAL FOR DIAGNOSIS 2021-04-02 Doctor Unassigned, [facility] AND TREATMENT 00:24:42 [facility] AGREEMENTS AUTHORIZATIONS AND 2021-04-01 Doctor Cassie, [facility] IRREVOCABLE ASSIGNMENTS (FORM 05:01:00 [facility] 2000) AUTHORIZATION TO RELEASE PHI 2021-03-04 Doctor Matthews, [facility] TO [facility] 05:01:00 [facility] REFERRAL- REQUEST/RESPONSE 2021-02-20 Doctor Unasssarkis, [facility] 05:01:00 [facility] POTASSIUM LEVEL 2020-12-14 Tae Salazar [facility] 15:05:00 HC COMPLETE BLD COUNT W/AUTO 2020-12-14 Mike Bradford [facility] DIFF 09:24:00 BASIC METABOLIC PANEL 2020-12-14 [facility] 09:24:00 ESTIMATED GFR 2020-12-14 [facility] 09:24:00 SURGICAL PATHOLOGY REQUEST 2020-12-13 Tae Salazar [facility] 19:49:00 PA AN ELECTIVE ENDOTRACHEAL 2020-12-13 Himanshu Ludwig [facility] AIRWAY 19:25:07 ARTHROPLASTY, SHOULDER, TOTAL 2020-12-13 Tae Salazar [facility] 18:32:00 ANESTHESIA PERIPHERAL BLOCK 2020-12-13 Baljit Muñoz [facility] 17:53:19 [place] POC GLUCOSE 2020-12-13 Tae Salazar [facility] 14:30:00 URINE CULTURE 2020-12-11 [facility] 20:30:00 ECG PRE/POST OP 2020-12-11 [facility] 18:55:32 COVID-19 QUALITATIVE RT-PCR 2020-12-11 EdilbertoAimee mcneill [facility] 18:15:00 URINALYSIS SCREEN AND 2020-12-11 [facility] MICROSCOPY, WITH REFLEX TO 18:15:00 CULTURE TYPE AND SCREEN 2020-12-11 [facility] 18:15:00 HEMOGLOBIN A1C 2020-12-11 Omaira Li [facility] pital 18:15:00 PARTIAL THROMBOPLASTIN TIME 2020-12-11 Jen Omairagerard Silverman [facility] (PTT) 18:15:00 PROTHROMBIN TIME WITH INR 2020-12-11 Omaira Li [facility] 18:15:00 COMPREHENSIVE METABOLIC PANEL 2020-12-11 Omaira Li [facility] 18:15:00 HC COMPLETE BLD COUNT W/AUTO 2020-12-11 [facility] DIFF 18:15:00 ESTIMATED GFR 2020-12-11 [facility] 18:15:00 CELL COUNT AND DIFFERENTIAL, 2020-10-[address] [facility] BODY FLUID 18:16:00 NM BONE SCAN 3 PHASE 2020-10-17 [facility] 18:14:14 FL RAD NEEDLE ASPIRATION 2020-10-17 Tae Salazar [facility] 17:28:02 JOINT FLUID CULTURE 2020-10-17 Tae Salazar ospital 16:50:00 ANAEROBIC CULTURE 2020-10-17 [facility]azarist [facility] pital 16:50:00 FUNGUS CULTURE 2020-10-17 Tae Salazarist Hospi paula 16:50:00 AFB CULTURE 2020-10-17 Tae Saalzarist [facility] 16:50:00 FUNGUS SMEAR 2020-10-17 Charles Tae Clarkeist Hospi [facility] 16:50:00 AFB STAIN 2020-10-17 Criders, Tae Casillas [facility] 16:50:00 CT UPPER EXTREMITY WO RIGHT 2020-10-17 Tae Salazar [facility] 15:45:16 XR SHOULDER 2+ VW RIGHT 2020-10[facility] 20[facility]11:07 EXTERNAL PROVIDER RECORDS 2020-09-19 Doctor Unassigned, [facility] 06:01:00 [facility] PATIENT FINANCIAL POLICY 2020-08-30 Doctor Unassigned, [facility] 19:45:11 [facility] NO SHOW OR MISSED APPOINTMENT 2020-08-30 Doctor Unassigned, [facility] POLICY ACKNOWLEDGEMENT 19:44:52 [facility] NOTICE OF PRIVACY PRACTICES 2020-08-30 Doctor Unasssarkis, [facility] 19:44:13 [facility] CONSENT TO CONTACT FOR 2020-08-30 Doctor Cassie, [facility] VOLUNTARY RESEARCH 19:43:51 [facility] CONSENT/REFUSAL FOR DIAGNOSIS 2020-08-30 Doctor Unassigned, [facility] AND TREATMENT 19:43:19 [facility] ASSIGNMENT OF BENEFITS 2020-08-30 Doctor Unatatum, [facility] 19:42:42 [facility] Plan of Care Planned Activity Planned Date Details Comments Source Future Scheduled Test Hepatitis C screening [facility] (procedure) [code = 363013484] Future Scheduled Test Screening for malignant [facility] neoplasm of cervix (procedure) [code = 434148139] Future Scheduled Test BREAST CANCER SCREENING [facility] [code = BREAST CANCER SCREENING] Future Scheduled Test COLONOSCOPY SCREENING [facility] [code = COLONOSCOPY SCREENING] Future Scheduled Test COVID-19 VACCINE ( - [facility] Moderna 2-dose series) [code = COVID-19 VACCINE (2 - [facility] 2-dose series)] Future Scheduled Test INFLUENZA VACCINE [code [facility] = INFLUENZA VACCINE] Encounters Start End Encounter Admission Attending Care Care Encounter Source Date/Time Date/Time Type Type Clinicians Facility Department ID 2021-09-08 Emergency [facility] [id number] Univers 21:01:20 [facility] Medical Branch 2021-08-26 Outpatient [facility] [id number] [place] 10:37:07 Health 2021-08-09 Outpatient LINDA, [facility] [id number] [place] 11:36:26 [facility] 2022-02-03 2022-02-03 Emergency E AZMARINAUROVA-A [id number] [facility] 10:10:00 20:37:00 JOSEPH RUTHERFORD 2022-01-30 2022-01-30 Outpatient R SAGRARIO [facility] [id number] [id number] Univers 14:30:00 14:30:[id number] [facility] 2022-01-30 2022-01-30 [facility] [id number] Univers 14:30:00 14:30:00 [facility] 2022-01-01 2022-01-01 Orders Doctor ADOLPH 1.2.840.114 [id number] Univers 00:00:00 00:00:00 Only Unassigned, [place] 350.1.13.10 ity of [facility] 4.2.7.2.686 Reinaldo as [phone] [address] 2021-12-31 2021-12-31 [facility] [id number] 8P-20 Univers 14:30:00 14:30:[id number] [facility] 2021-12-31 2021-12-31 Outpatient R SAGRARIO [facility] [id number] Univers 14:30:00 14:30:00 [facility] 2021-11-04 2021-11-04 Laboratory Only, Ang Db Test [facility] 1.2.8 40.114 [id number] Univers 16:15:00 16:30:00 Only Sandip Wright [facility] 350.1.13.10 ity of [place] 4.2.7.2.686 Reinaldo as BABS?BLEA [phone] [address] MEDICAL OFFICE BUILDING 2021-11-04 2021-11-04 Outpatient R [facility] [id number] Univers 16:15:00 16:15:[id number] [facility] 2021-11-04 2021-11-04 Outpatient [facility] [id number] Univers 16:15:00 16:15:00 SANDIP puente o f [facility] 2021-09-17 2021-09-17 Pallet Sorter Ezequiel, Ashley Lab Main [facility] 1.2.8 40.114 [id number] Univers 17:25:33 17:40:33 Visit Beau Romero 350.1.13.1 0 ity [facility] [place] [phone] Nm dical [address] 2021-09-17 2021-09-17 Outpatient R [facility] [id number] Univers 16:00:00 16:00:[id number] [facility] 2021-09-17 2021-09-17 [facility] [id number] Univers 16:00:00 16:00:[address] [facility] 2021-09-17 2021-09-17 Orders Doctor ADOLPH 1.2.840.114 [id number] Univers 00:00:00 00:00:00 Only Unassigned, CASSIE 350.1.13.10 ity of [place] [facility] 4.2.7.2.686 Reinaldo as [phone] [address] 2021-08-29 2021-08-29 Outpatient [facility] [id number] 8P-20 Univers 13:00:00 13:00:[id number] [facility] 2021-08-29 2021-08-29 Outpatient [facility] [id number] Univers 13:00:00 13:00:[address] [facility] 2021-08-26 2021-08-26 Office VERITO CURRAN 6400 1.2.119.094 [id number] [place] 10:03:44 10:18:44 Visit GERALD DINERO 350.1.13.58 Health 9.2.7.2.686 [id number] 3 2021-08-16 2021-08-16 Travel 1.2.840.1 1.2.159.904 5240 [id number] Methodi 00:00:00 00:00:[address] 3.430.2.7 0.2.7.3.698 Ho spita .3.642869 084.8 l .8 2021-08-13 2021-08-13 Travel 1.2.840.1 1.2.883.325 7409 431627 Methodi 00:00:00 00:00:[address] 3.430.2.7 0.2.7.3.698 Ho spita .3.060081 084.8 l .8 2021-08-12 2021-08-12 Office Criders, 1.2.840.1 [id number] 2503 Methodi 08:43:45 10:09:31 Visit Tae Harris 84572.1.[address] 3.430.2.7 Hospit a .3.529455 l .8 2021-08-07 2021-08-07 Telephone Boothe, 1.2.840.1 [id number] 2099 109900 Methodi 00:00:00 00:00:[address] Julius 3.430.2.7 Hospi ta .3.888400 l .8 2021-08-07 2021-08-07 Travel 1.2.840.1 1.2.310.163 3234 062062 Methodi 00:00:00 00:00:[address] 3.430.2.7 0.2.7.3.698 Ho spita .3.789570 084.8 l .8 2021-08-06 2021-08-06 Telephone Criders, 1.2.840.1 [id number] 2099 835514 Methodi 00:00:00 00:00:00 Tae Harris 34323.1.[address] 3.430.2.7 Hospit a .3.504698 l .8 2021-08-02 2021-08-02 [facility], 1.2.840.1 [id number] 2368 Methodi 16:31:40 16:36:[address] 3.430.2.7 Hospit a .3.738675 l .8 2021-08-02 2021-08-02 [facility], 1.2.840.1 [id number] [place] 00:00:00 00:00:00 Encounter TAE 94615.1.[address] .3.052494 .8 2021-08-02 2021-08-02 [facility], 1.2.840.1 [id number] 21001 46411 [place] 00:00:00 00:00:00 Encounter TAE 63262.1.[address] .3.999987 .8 2021-08-02 2021-08-02 [facility], 1.2.840.1 [id number] [place] 00:00:00 00:00:00 Encounter TAE 04857.1.[address] .3.490638 .8 2021-08-02 2021-08-02 [facility], 1.2.840.1 [id number] 15062 Norman 00:00:00 00:00:00 Encounter TAE 44467.1.[address] .3.276732 .8 2021-08-02 2021-08-02 Travel 1.2.840.1 1.2.089.348 4815 675941 Methodi 00:00:00 00:00:[address] 3.430.2.7 0.2.7.3.698 Ho spita .3.433121 084.8 l .8 2021-07-31 2021-07-31 EXT [facility] OP Gwendolyn, EXT MSRDP 1.2.840.114 1 [id number] [place] 00:00:00 00:00:00 Isabel LOCATION 350.1.13.58 Health 9.2.7.2.686 [id number] 0 2021-07-29 2021-07-29 Travel 1.2.840.1 1.2.529.060 7792 080919 Methodi 00:00:00 00:00:[address] 3.430.2.7 0.2.7.3.698 Ho spita .3.783028 084.8 l .8 2021-07-10 2021-07-10 Travel 1.2.840.1 1.2.557.058 3954 415476 Methodi 00:00:00 00:00:[address] 3.430.2.7 0.2.7.3.698 Ho spita .3.017825 084.8 l .8 2021-07-03 2021-07-03 Office Criders, 1.2.840.1 [id number] 063175 3848 Methodi 13:57:58 16:40:55 Visit Tae Harris 01836.1.[address] 3.430.2.7 Hospit a .3.414557 l .8 2021-07-03 2021-07-03 Travel 1.2.840.1 1.2.547.891 8104 780115 Methodi 00:00:00 00:00:[address] 3.430.2.7 0.2.7.3.698 Ho spita .3.469214 084.8 l .8 2021-07-01 2021-07-01 Travel 1.2.840.1 1.2.539.254 2720 457270 Methodi 00:00:00 00:00:[address] 3.430.2.7 0.2.7.3.698 Ho spita .3.225675 084.8 l .8 2021-05-31 2021-05-31 Office Eduardo [facility] 1.2.840.114 [id number] Univers 16:24:31 16:59:54 Visit Goyo Trinh 350.1.13.10 ity of [place] [id number] [facility] 092 [facility] 2021-05-31 2021-05-31 Outpatient EDUARDOGOYO Apodaca [facility] [id number] Univers 16:20:00 16:20:00 GOYO GILLIAM [id number] ity [facility] 2021-05-31 2021-05-31 Outpatient R EUDARDO, GOYO [facility] [id number] Univers 16:20:00 16:20:00 GOYO GILLIAM ity [facility] 2021-05-27 2021-05-27 [facility] [id number] 48P-[id number] Univers 10:30:00 10:30:00 CECELIA [id number] ity [facility] 2021-05-27 2021-05-27 Outpatient R TROY [facility] [id number] Univers 10:30:00 10:30:00 CECELIA ity [facility] 2021-04-30 2021-04-30 Orders Doctor ADOLPH 1.2.840.114 [id number] Univers 00:00:00 00:00:00 Only Unassigned, CASSIE 350.1.13.10 ity of [place] [facility] 4.2.7.2.686 Reinaldo as [phone] [facility] 009 Branch 2021-04-04 2021-04-04 Transition Rylie Clay 1.2.840.114 [id number] Univers 00:00:00 00:00:00 of Care Chelsey Mckeon 350.1.13.10 it y of [place].2.[place] [id number] [facility] 403 Branch 2021-04-01 2021-04-03 Hospital Steven Maloney 1.2.840.1 14 [id number] Univers 19:39:00 16:59:00 Encounter Manuel Lamberty 350.1. 13.10 [facility] 4.2.7.2.686 [place] [id number] [facility] 094 [place] 2021-04-01 2021-04-01 Nurse ADOLPH Rutherford 1.2.883.947 [id number] Univers 00:00:00 00:00:00 Triage Christiandenis MATTHEWS 350.1.13.10 it y of [facility] 4.2.7.2.686 Reinaldo as [phone] [facility] 019 Branch 2021-03-19 2021-03-19 Outpatient R [facility] [id number] -[id number] Univers 13:00:00 13:00:00 [id number] ity [facility] 2021-03-19 2021-03-19 Outpatient R GOYO GILLIAM [facility] [id number] Univers 13:00:00 13:00:[address] [facility] 2021-03-04 2021-03-04 Office Eduardo [facility] 1.2.840.114 [id number] Univers 14:56:39 16:12:00 Visit Goyo Trinh 350.1.13.10 ity [facility] [place].2.[place] [phone] [facility] 092 [facility] 2021-03-04 2021-03-04 Outpatient R GOYO GILLIAM [facility] [id number] Univers 15:00:00 15:00:[id number] [facility] 2021-03-04 2021-03-04 Outpatient GOYO RODRIGUEZ [facility] [id number] Univers 15:00:00 15:00:00 GOYO GILLIAM denis [facility] 2021-03-04 2021-03-04 Orders Doctor FARFAN 1.2.840.114 [id number] Univers 00:00:00 00:00:00 Only Unassigned, CASSIE 350.1.13.10 ity of [place] [facility] 4.2.7.2.686 Reinaldo as [phone] [facility] 009 Branch 2021-02-20 2021-02-20 Orders Doctor FARFAN 1.2.840.114 [id number] Univers 00:00:00 00:00:00 Only Unassigned, CASSIE 350.1.13.10 ity of [place] [facility] 4.2.7.2.686 Reinaldo [place] [phone] [place] [address] Branch 2021-01-23 2021-01-23 Outpatient MIN [facility] [id number] Univers 14:00:00 14:00:00 BALJIT puente of [facility] 2021-01-19 2021-01-[address] [facility] 1.2.840.114 [id number] Univers 00:00:00 00:00:00 Outreach Baljit PRIMARY 350.1.13.10 i ty of [facility] 4.2.7.2.[place] [id number] Nm dical [facility] Branch 2021-01-19 2021-01-19 Patient Min [facility] 1.2.840.114 [id number] 00:00:00 00:00:00 Outreach Baljit PRIMARY 350.1.13.10 [facility] 4.2.7.2.686 PAVILLION [id number] 388 2021-01-17 2021-01-17 Orders Abel, 1.2.840.1 [id number] 3160 Methodi 00:00:00 00:00:00 Only Dori 36981.1.[address] 3.430.2.7 Hospit a .3.933806 l .8 2021-01-03 2021-01-03 Orders Ramon, 1.2.840.1 [id number] 814 [id number] Methodi 00:00:00 00:00:00 Only Aimee 12720.1.[address] 3.430.2.7 Hospit a .3.580791 l .8 2021-01-03 2021-01-03 Cristino Salazar, 1.2.840.1 [id number] 2100 773438 Methodi 00:00:00 00:00:00 Tae Harris 56586.1.[address] 3.430.2.7 Hospit a .3.249719 l .8 2021-01-02 2021-01-02 Kenny Salazar, 1.2.840.1 [id number] 6052 Methodi 11:18:16 12:06:52 Visit Tae Harris 18644.1.[address] 3.430.2.7 Hospit a .3.600716 l .8 2021-01-02 2021-01-02 Travel 1.2.840.1 1.2.555.290 4068 682215 Methodi 00:00:00 00:00:[address] 3.430.2.7 0.2.7.3.698 Ho spita .3.846027 084.8 l .8 2020-12-27 2020-12-27 Travel 1.2.840.1 1.2.466.322 4972 358481 Methodi 00:00:00 00:00:[address] 3.430.2.7 0.2.7.3.698 Ho spita .3.112789 084.8 l .8 2020-12-19 2020-12-19 Orders Ramon, 1.2.840.1 [id number] 176 [id number] Methodi 00:00:00 00:00:00 Only Aimee 46134.1.[address] 3.430.2.7 Hospit a .3.859081 l .8 2020-12-19 2020-12-19 Orders Abel, 1.2.840.1 [id number] 877275 5018 Methodi 00:00:00 00:00:00 Only Dori 29000.1.[address] 3.430.2.7 Hospit a .3.384072 l .8 2020-12-17 2020-12-17 Telephone Ramon, 1.2.840.1 [id number] 2 [id number] Methodi 00:00:00 00:00:[address] 3.430.2.7 Hospit a .3.682606 l .8 2020-12-17 2020-12-17 Travel 1.2.840.1 1.2.089.584 7830 706716 Methodi 00:00:00 00:00:[address] 3.430.2.7 0.2.7.3.698 Ho nkechi .3.818108 084.8 l .8 2020-12-15 2020-12-15 Telephone Cameron, 1.2.840.1 [id number] 626 [id number] Methodi 00:00:00 00:00:[address] 3.430.2.7 Hospit a .3.815710 l .8 2020-12-13 2020-12-14 [facility], 1.2.840.1 [id number] 39903 64400 Methodi 07:03:00 17:24:00 Encounter Tae TStewart 16363.1.[address] 3.430.2.7 Hospit a .3.266747 l .8 2020-12-13 2020-12-13 Anesthesia Baljit Muñoz 1.2.840 .1 [id number] Methodi 12:32:00 15:20:00 Event Omaira LiStewart 82172.1.[address] 3.430.2.7 Hospit a .3.753586 l .8 2020-12-13 2020-12-13 [facility], 1.2.840.1 [id number] 9536 Methodi 11:30:00 15:05:00 Tae Harris 83136.1.[address] 3.430.2.7 Hospit a .3.300935 l .8 2020-12-13 2020-12-13 [facility], 1.2.840.1 [id number] 2100 248010 Methodi 00:00:00 00:00:00 Tae Harris 48337.1.[address] 3.430.2.7 Hospit a .3.848356 l .8 2020-12-13 2020-12-13 [facility], 1.2.840.1 [id number] 632209 8194 Methodi 00:00:00 00:00:00 Only Tae AdrianStewart 91249.1.[address] 3.430.2.7 Hospit a .3.911504 l .8 2020-12-13 2020-12-13 Travel 1.2.840.1 1.2.003.780 6714 678975 Methodi 00:00:00 00:00:[address] 3.430.2.7 0.2.7.3.698 Ho spita .3.116446 084.8 l .8 2020-12-12 2020-12-12 Cristino Charles, 1.2.840.1 [id number] 2099 558333 Methodi 00:00:00 00:00:[address] 3.430.2.7 Hospit a .3.847155 l .8 2020-12-11 2020-12-11 Pre-Admiss Charles, 1.2.840.1 [id number] 597 [id number] Methodi 11:04:20 12:04:20 ion Tae Campbell. 19108.1.[address] Testing 3.430.2.7 Hospit a .3.215585 l .8 2020-12-11 2020-12-11 Pre-Admiss 1.2.840.1 [id number] 788 [id number] Methodi 10:30:00 11:30:[address] Testing 3.430.2.7 Hospit a .3.993423 l .8 2020-12-11 2020-12-11 Travel 1.2.840.1 1.2.050.904 8902 135204 Methodi 00:00:00 00:00:[address] 3.430.2.7 0.2.7.3.698 Ho spita .3.505499 084.8 l .8 2020-12-04 2020-12-04 Freddy Navarro, 1.2.840.1 [id number] 104 [id number] Methodi 00:00:00 00:00:00 Only Aimee 58013.1.[address] 3.430.2.7 Hospit a .3.755957 l .8 2020-12-04 2020-12-04 Travel 1.2.840.1 1.2.609.878 5170 293296 Methodi 00:00:00 00:00:[address] 3.430.2.7 0.2.7.3.698 Ho spita .3.384184 084.8 l .8 2020-11-21 2020-11-21 Orders Ramon, 1.2.840.1 [id number] 661 [id number] Methodi 00:00:00 00:00:00 Only Aimee 01599.1.[address] 3.430.2.7 Hospit a .3.931466 l .8 2020-11-20 2020-11-20 Pre-Admiss Criders, 1.2.840.1 [id number] 302 [id number] Methodi 13:30:00 14:30:00 lawrence Harris 81050.1.[address] Testing 3.430.2.7 Hospit a .3.015848 l .8 2020-11-20 2020-11-20 Travel 1.2.840.1 1.2.218.366 7360 798413 Methodi 00:00:00 00:00:[address] 3.430.2.7 0.2.7.3.698 Ho spita .3.715619 084.8 l .8 2020-11-20 2020-11-20 Cristino Yanethalisia, 1.2.840.1 [id number] 2 [id number] Methodi 00:00:00 00:00:[address] 3.430.2.7 Hospit a .3.986234 l .8 2020-11-13 2020-11-13 Freddy Roman, 1.2.840.1 [id number] 745551 7615 Methodi 00:00:00 00:00:00 Only Dori 21407.1.[address] 3.430.2.7 Hospit a .3.198309 l .8 2020-11-06 2020-11-06 [facility], 1.2.840.1 [id number] 2099 [id number] Methodi 00:00:00 00:00:00 Tae Harris 51043.1.[address] 3.430.2.7 Hospit a .3.724262 l .8 2020-10-24 2020-10-24 [facility], 1.2.840.1 [id number] 1891 Methodi 12:58:09 13:58:27 Visit Tae Harris 83333.1.[address] 3.430.2.7 Hospit a .3.363797 l .8 2020-10-24 2020-10-24 Travel 1.2.840.1 1.2.819.037 2048 [id number] Methodi 00:00:00 00:00:[address] 3.430.2.7 0.2.7.3.698 spita .3.144046 084.8 l .8 2020-10-17 2020-10-17 [facility], 1.2.840.1 [id number] 81804 25714 Methodi 12:05:45 23:59:00 Encounter Tae Harris 68063.1.[address] 3.430.2.7 Hospit a .3.433779 l .8 2020-10-17 2020-10-17 [facility], 1.2.840.1 [id number] 4924 Methodi 13:32:52 13:37:52 Tae Harris 39426.1.[address] 3.430.2.7 Hospit a .3.763099 l .8 2020-10-17 2020-10-17 [facility], 1.2.840.1 [id number] 84418 74165 Methodi 09:42:51 12:04:00 Encounter Tae Harris 92561.1.[address] 3.430.2.7 Hospit a .3.138418 l .8 2020-10-17 2020-10-17 [facility], 1.2.840.1 [id number] 10787 90544 Methodi 08:35:22 09:41:00 Encounter Tae Harris 99867.1.[address] 3.430.2.7 Hospit a .3.259330 l .8 2020-10-17 2020-10-17 [facility] 1.2.840.1 [id number] 00791 Methodi 08:30:00 08:34:00 Encounter Tae Harris 00337.1.[address] 3.430.2.7 Hospit a .3.426837 l .8 2020-10-17 2020-10-17 Travel 1.2.840.1 1.2.703.581 9125 [id number] Methodi 00:00:00 00:00:[address] 3.430.2.7 0.2.7.3.698 Ho spita .3.891544 084.8 l .8 2020-10-10 2020-10-10 [facility] 1.2.840.1 [id number] 5151 Methodi 13:23:54 14:33:23 Visit Tae Harris 02936.1.[address] 3.430.2.7 Hospit a .3.593328 l .8 2020-10-10 2020-10-10 Travel 1.2.840.1 1.2.639.919 7599 412097 Methodi 00:00:00 00:00:[address] 3.430.2.7 0.2.7.3.698 Ho spita .3.394785 084.8 l .8 2020-10-01 2020-10-01 Travel 1.2.840.1 1.2.290.897 3771 [id number] Methodi 00:00:00 00:00:[address] 3.430.2.7 0.2.7.3.698 Ho spita .3.625940 084.8 l .8 2020-09-28 2020-09-28 Outpatient DANIELA [facility] 032 4 [facility] 15:16:00 19:15:00 KRAIG 2020-09-26 2020-09-27 Emergency [facility] 18:28:00 01:35:00 2020-09-24 2020-09-24 Laboratory Lab, [facility] Fam Pob I [facility] 1.2. 840.114 [id number] [facility] 18:30:16 18:50:16 Only Tona Bermudez [facility] 350.1.13.10 ity Billy Leung Ronda 4.2.7.2.686 [place] [facility] [id number] Nm dical [address] [employer] 2020-09-24 2020-09-24 Laboratory Lab, [facility] 1.2.840.114 [id number] 18:30:16 18:50:16 Only [facility] Pob I Health 350.1.13.10 Ronda 4.2.7.2.686 Professio [id number] nal [facility] 2020-09-24 2020-09-24 Outpatient R [facility] [id number] -[id number] Univers 18:40:00 18:40:[id number] [facility] 2020-09-24 2020-09-24 Outpatient R SRINIVASAN [facility] 87747 [id number] Univers 18:40:00 18:40:[address] [facility] 2020-09-24 2020-09-24 Travel 1.2.840.1 1.2.714.825 [id number] Methodi 00:00:00 00:00:[address] 3.430.2.7 0.2.7.3.698 Ho spita .3.736101 084.8 l .8 2020-09-19 2020-09-19 Orders Doctor ADOLPH 1.2.840.114 [id number] 24 00:00:00 00:00:00 Only Unassigned, CASSIE 350.1.13.10 [facility] 4.2.7.2.686 [id number] 009 2020-09-19 2020-09-19 Orders Doctor ADOLPH 1.2.840.114 [id number] 24 00:00:00 00:00:00 Only Unassigned, CASSIE 350.1.13.10 ity [place] [facility] 4.2.7.2.686 Reinaldo as [phone] [address] 2020-09-06 2020-09-06 Travel 1.2.840.1 1.2.092.945 [id number] [id number] Methodi 00:00:00 00:00:[address] 3.430.2.7 0.2.7.3.698 Ho spita .3.858631 084.8 l .8 2020-09-05 2020-09-[address] [facility] 1.2.268.316 9623 6007 00:00:00 00:00:00 Management Annika Brunoton 350.1.13.10 [place] 4.2.7.2.686 Professio [phone] [address] 2020-09-05 2020-09-05 Case Jaime [facility] 1.2.274.594 7199 6007 [facility] 00:00:00 00:00:00 Management Annika Trinh 350.1.13.10 it[place] [phone] [address] 2020-09-04 2020-09-04 Travel 1.2.840.1 1.2.996.414 [id number] Methodi 00:00:00 00:00:[address] 3.430.2.7 0.2.7.3.698 Ho spita .3.114570 084.8 l .8 2020-08-30 2020-08-30 Office Jaime [facility] 1.2.249.555 1720 6935 [facility] 14:45:50 15:47:54 Visit Annika Trinh 350.1.13.10 i ty [place] [phone] [address] 2020-08-30 2020-08-30 Outpatient R JAIME [facility] [id number] 8P-20 Univers 14:30:00 14:30:00 ANNIKA [id number] ity [facility] 2020-08-30 2020-08-30 Outpatient R JAIME [facility] [id number] Univers 14:30:00 14:30:00 ANNIKA ity [facility] 2020-08-30 2020-08-30 Orders Doctor ADOLPH 1.2.840.114 [id number] [facility] 00:00:00 00:00:00 Only Unassigned, CASSIE 350.1.13.10 [facility] 4.2.7.2.[facility] Reinaldo as [phone] [facility] [address] 2020-04-24 2020-04-25 Emergency E AZNAUROVA-A BL BL 7502 BL 21:30:00 03:03:00 JOSEHUSSAINJOSEPH 2020-03-19 2020-03-22 Inpatient U BENNETTOBLE, [facility] CAR 0132 [facility] 04:07:00 15:45:00 KELLI 2020-03-19 2020-03-19 Emergency E VISHNYAKOVA BL BL 7501 MHBL 00:18:00 03:25:00 , MICHELINE 2020-03-18 2020-03-18 Nurse Isabell Diaz 1.2.840.114 [id number] [facility] 00:00:00 00:00:00 Triage CASSIE 350.1.13.10 it y of HOSPITAL 4.2.7.2.686 [place] as [phone] [facility] [address] 2019-08-03 2019-08-03 Outpatient [facility] 7500 [facility] 10:08:00 10:08:00 Results Test Description Test Time Test Comments Results Result Comments Source Joint fluid culture 2021-08-07 03:24:41 Test Item Value Reference Range Interpretation Comme nts Joint fluid culture No growth after 4 Spe cimen InformationSpecimen isolate (test code = days. Source: Joint FluidSpecimen Site: 1634) PLEASE HOLD FOR 21 DAYS [facility] [id number] 14:08:12 Test Item Value Reference Range Interpretation Comments Anaerobic No anaerobic Specimen culture isolate organisms InformationS pecimen (test code = isolated. Source: Joint 552) FluidSpecimen S ite: PLEASE HOLD FOR 21 DAYS [facility] [id number] 18:30:51 Test Item Value Reference Range Interpretation Comments Fungus smear No fungi Specimen (test code = observed. InformationSpec imen Source: 1443) Joint FluidSpec imen Site: PLEASE HOLD FOR 21 DAYS [facility] HospitalAFB [id number] 16:04:26 Test Item Value Reference Range Interpretation Comments AFB stain No acid fast Specimen (test code = bacilli (AFB) InformationSpe cimen 676-7) seen. Source: Joint FluidSpecimen S ite: PLEASE HOLD FOR 21 DAY S [facility] HospitalGram [id number] 03:53:00Gram stain isolateRare WBC'sNo organisms seen Comment: Specimen InformationSpecimen Source: Joint FluidSpecimen Site: PLEASE HOLD FOR 21 DAYS [facility] HospitalCell count and differential, body [id number] 02:59:47 Test Item Value Reference Range Interpretation Comments Misc fluid type (test JOINT FLUID code = 45375-8) Color, fluid (test Red code = 6824-7) Appearance, fluid Clear (test code = 9335-1) RBC, fluid (test code See_Comment DISREG AMPARO PREVIOUS = 41629-1) RESULTS, WERE AUTOMATED (QUESTIONABLE); THEREFORE A MAN UAL COUNT WAS PERFORMED,AND M ANUAL COUNT CORRELATE D. Corrected resul t; previously repo rted as 420,000 on 08/02/2021 at 1 7:19 by [id number] REPORT, Prevfrank mckennay reported as: PA EVIOUS RESULTS WERE AUTOMATED (QUESTIONABLE), THEREFORE A [...] fluid (test code = previousl y reported 11883-7) as 1500 on 07/11 at 17:19 by PEC 3 [Automated mess age] The system Data Maidic h generated this result transmitted ref erence range: /CMM. Th e reference range was not used to int erpret this result as normal/abnormal . Fluid mononuclear 2/CMM cell (test code = 1407) SHEILA (test code = SHEILA) right knee [facility] Bone Scan 3 [id number] 23:08:01PROCEDURE: NM BONE SCAN 3 PHASE CLINICAL HISTORY: Z98.890 Other specified postprocedural states, M25.511 Pain in right shoulder, to rule out infection COMPARISON: Three-phase bone scan of the chest 10/17/2020; CT right upper extremity today TECHNIQUE: 25 millicuries of mzkyshljbm-35h-APS were administered IV, followed by blood flow [...] instead represents loosening associated with nonspecific inflammation/hyperemia. [facility]- [id number] [facility], Radiology Results 08/02/2021 6:11 PM CDT PROCEDURE: NM BONE SCAN 3 PHASECLINICAL HISTORY: Z98.890 Other specified postprocedural states, M25.511 Pain in right shoulder, to rule out infectionCOMPARISON: Three- phase bone scan of the chest 10/17/2020; CT right upper extremity todayTECHNIQUE: 25 millicuries of qykvxaqkyl-65j-JAP were administered IV, followed by blood flow [...] instead represents loosening associated with nonspecific inflammation/hyperemia. [facility]-[id number] [facility] Rad Needle Vixmuvndzj2345-66-62 21:27:06 EXAMINATION: FL RAD NEEDLE ASPIRATION CLINICAL [...] IMPRESSION: Successful fluoroscopic guided right shoulder aspiration. [id number] Interface, Radiology Results 08/02/2021 4:30 PM CDT EXAMINATION: FL RAD [...] no immediate complications.IMPRESSION:Successful fluoroscopic guided right shoulder aspiration.OPC-[id number] HospitalCT Upper Extremity Wo Kthix9542-83-31 19:38:05EXAMINATION: CT UPPER EXTREMITY WO RIGHT CLINICAL [...] collections or masslike lesions along the prosthesis. [id number] Interface, Radiology Results Incoming - 08/02/2021 2:41 [...] fluid collections or masslike lesions along the prosthesis.[facility]-TRG3411VISHtctkrgir HospitalURINE [id number] 12:12:15 Test Item Value Reference Range Interpretation Comments URINE CULTURE (test < 10,000 CFU/mL mixed code = 630-4) aerobic organisms - suggests endogenous microbial contamination [facility] METABOLIC PANEL (NA, K, CL, CO2, GLUCOSE, BUN, CREATININE, CA)2021-04-03 11:03:41 Test Item Value Reference Range Interpretation Comments NA (test code = 136 mmol/L 135-145 1894677075) K (test code = 4.5 mmol/L 3.5-5.0 Slight 1489415665) hemolysis CL (test code = 94 mmol/L 98-108 L 3838408276) CO2 TOTAL (test code 38 mmol/L 23-31 H = 7778502472) AGAP (test code = 2-16 7115577165) BUN (test code = 28 mg/dL 7-23 H Slight 3608161023) hemolysis GLUCOSE (test code = 119 mg/dL 70-110 H 5462216275) CREATININE (test code 0.73 mg/dL 0.50-1.04 = 8360849031) CALCIUM (test code = 8.8 mg/dL 8.6-10.6 8343107625) eGFR (test code = mL/min/1.73m2 8956692937) SHEILA (test code = SHEILA) Association of [...] tests). Lab Interpretation Abnormal (test code = 45317-5) [facility]ro[facility] - Duration of test: 20-60 mins; Release to patient: [id number] 00:00:00Date and Time of Procedure: 04/03/2021, 08:40 [...] written. Gibran Dickens MD Date of interpretation: 04/03/2021UnH[facility]landN-TERMINAL [id number]-[id number] 20:24:03 Test Item Value Reference Range Interpretation Comments NT-proBNP (test code 218 pg/mL See_Comment H [Autom ated = 0375424684) message] The system which generated this result transmitted reference range : <=125. The reference range was not used to interpret this result as normal/abnormal . SHEILA (test code = SHEILA) Biotin has been reported to cause a negative bias, interpret results relative to patient's use of biotin. Lab Interpretation Abnormal (test code = 89207-7) [facility] CenterXR CHEST 1 [id number] 13:04:48 No acute cardiopulmonary abnormality. Preliminary Report [...] reviewed this study and agree with theabove report.[facility] CenterAC PANEL 20 + LACTIC [id number] 03:36:51 Test Item Value Reference Range Interpretation Comments PH (test code = 2) 7.35-7.45 L PCO2 (test code = See_Comment H [Automat ed 5218045511) message] The sy stem which generated this result transmitted reference range : 35 - 45 mmHg. The reference range was not used to interpret this result as normal/abnormal . PO2 (test code = See_Comment L [Automated 8462743359) message] The sy stem which generated this result transmitted reference range : 80 - 100 mmHg. The reference range was not used to interpret this result as normal/abnormal . HCO3 (test code = See_Comment H [Automate d 8869875353) message] The sy stem which generated this result transmitted reference range : 22 - 26 mEq/L. The reference range was not used to interpret this result as normal/abnormal . BE (test code = See_Comment [Automated 5419603120) message] The sy stem which generated this result transmitted reference range : -3.0 - 3.0 mEq/ L. The reference r kendell was not used to interpret this result as normal/abnormal . THB (test code = 14.2 g/dL 12.0-16.0 5259584638) %O2HB (test code = 89.4 % 94.0-99.0 L 6657897635) %COHB ART (test code = 4.8 % 0.0-1.5 H 1499359386) %METHB ART (test code = 0.3 % 0.4-1.5 L 3157583587) VOL%O2 ART (test code = 17.9 % 15.0-23.0 0585177428) NA (test code = 135 mmol/L 135-145 9194206045) K+ (test code = 4.3 mmol/L 3.5-5.0 0145535051) AC CA IONZ (test code = 4.60 mg/dL 4.50-5.30 5123278501) GLUCOSE (test code = 95 mg/dL 70-110 2209097697) LACTIC ACID (test code 0.78 mmol/L 0.50-2.20 = 6222228780) Lab Interpretation Abnormal (test code = 09162-3) [facility] CenterETHANOL2021-05-25 03:05:08 Test Item Value Reference Range Interpretation Comments ALCOHOL (test code = <10 mg/dL 7794305735) SHEILA (test code = SHEILA) <10 Fofuqcds40-399 Toxic>100 Depression of DELIVERY SPECIALIST>400 Fatalities Reported [facility] CenterTroponin [id number] 02:35:56 Test Item Value Reference Range Interpretation Comments TROPONIN I (test <0.012 See_Comment [Automated code = 4563216883) message] The system which generated this result [...] ? Lab Interpretation Normal (test code = 36698-7) [facility] CenterURINE DRUG (IMMUNOASSAY) - COMPREHENSIVE DRUG [id number] 02:32:35 Test Item Value Reference Range Interpretation Comments AMPHET (test code = Negative Negative 3962701774) GENNARO U (test code = Negative Negative 1405206364) BENZO U (test code = Negative Negative 4147057887) Cocaine Metabolite (test Negative Negative code = 1244462161) METHADONE (test code = Negative Negative 2810874923) OPIATES (test code = Presumptive Positive Negative A 1343759083) PCP (test code = Presumptive Positive Negative A 3071509298) THC (test code = Negative Negative 3190766066) SHEILA (test code = SHEILA) Urine Drug [...] testing). Lab Interpretation (test Abnormal code = 94320-6) [facility] CenterCOVID-19 (ID NOW RAPID TESTING)2021-04-02 02:30:32 Test Item Value Reference Range Interpretation Comments SARS-CoV-2 Rapid ID NOW Not Detected Not Detected (test code = 45466-7) SHEILA (test code = SHEILA) ID NOW COVID-19 Assay is an isothermal nucleic acid amplification test intended for the qualitative detection of nucleic acid from SARS-CoV-2 viral RNA in nasopharyngeal (BELL VALET) specimens. It is used under Emergency Use [...] indicated. Lab Interpretation Normal (test code = 85727-4) [facility] Metabolic Panel (NA, K, CL, CO2, GLUCOSE, BUN, CREATININE, CA)2021-04-02 02:24:48 Test Item Value Reference Range Interpretation Comments NA (test code = 136 mmol/L 135-145 8620050120) K (test code = 4.9 mmol/L 3.5-5.0 5606615303) CL (test code = 96 mmol/L 98-108 L 0279598450) CO2 TOTAL (test code = 31 mmol/L 23-31 4831598317) AGAP (test code = 2-16 1165945004) BUN (test code = 43 mg/dL 7-23 H 0166052916) GLUCOSE (test code = 96 mg/dL 70-110 9995839070) CREATININE (test code = 0.92 mg/dL 0.50-1.04 0091627321) CALCIUM (test code = 9.4 mg/dL 8.6-10.6 7284058572) eGFR (test code = mL/min/1.73m2 5670528795) SHEILA (test code = SHEILA) Association of [...] tests). Lab Interpretation Abnormal (test code = 10636-6) [facility] CenterHepatic Function Panel (ALB, T.PRO, BILI T, BU/BC, ALT, AST, ALK PHOS)2021-04-02 02:24:48 Test Item Value Reference Range Interpretation Comments TOTAL BILI (test code = 4090850251) 0.7 mg/dL 0.1-1.1 BILI UNCON (test code = 8203202588) 0.4 mg/dL 0.1-1.1 BILI CONJ (test code = 0317875699) 0.0 mg/dL 0.0-0.3 T PROTEIN (test code = 6826224657) 6.8 g/dL 6.3-8.2 ALBUMIN (test code = 7113750032) 4.4 g/dL 3.5-5.0 ALK PHOS (test code = 2290057853) 85 U/L 34-122 ALTv (test code = 1742-6) 27 U/L 5-35 AST(SGOT) (test code = 6423050289) 53 U/L 13-40 H Lab Interpretation (test code = Abnormal 74573-6) [facility] CenterCT HEAD WO [id number] 02:03:35 No acute intracranial findings. Left occipital [...] base intact. Mild ethmoid air cell mucosalthickening. [facility], Radiant Results Inft User - 04/01/2021 9:04 [...] the leftcerebellum. Correlation with prior surgical history suggested.[facility] CenterUrinalysis2021-05-25 01:59:54 Test Item Value Reference Range Interpretation Comments APPEARANCE (test code = Clear Clear 2730282973) COLOR (test code = Yellow Yellow 0354433927) PH (test code = 4.8-8.0 4991557210) SP GRAVITY (test code = 1.003-1.030 9551466373) GLU U QUAL (test code = Normal Normal 0150285172) BLOOD (test code = Negative Negative 9112614081) KETONES (test code = Negative Negative 3907780133) PROTEIN (test code = Negative Negative 2887-8) UROBILIN (test code = Normal Normal 2892569137) BILIRUBIN (test code = 2 mg/dL Negative A 1585383410) NITRITE (test code = Negative Negative 2470149550) LEUK MERYL (test code = 250/uL Negative A 7082180956) RBC/HPF (test code = See_Comment [Autom ated message] 6107826663) The system Data Maidic h generated this result transmitted ref erence range: 0 - 3 HP F. The reference range was not used to int erpret this result as normal/abnormal . WBC/HPF (test code = See_Comment H [Autom ated message] 3320701216) The system Data Maidic h generated this result transmitted ref erence range: 0 - 5 HP F. The reference range was not used to int erpret this result as normal/abnormal . BACTERIA (test code = Few Negative A 6888256709) MUCOUS (test code = Slight Negative LPF A 5580959447) SQ EPITH (test code = HPF 4476687313) HYAL CAST (test code = See_Comment [Aut omated message] 3468627469) The system Data Maidic h generated this result transmitted ref erence range: <=2 LPF. The reference range was not used to int erpret this result as normal/abnormal . Lab Interpretation (test Abnormal code = 64745-9) [facility] CenteraPTT2021-05-25 01:49:53 Test Item Value Reference [...] seconds. Lab Interpretation Normal (test code = 77215-7) [facility] CenterProthrombin Time (PT) / [id number] 01:47:51 Test Item Value Reference Range Interpretation Comments PROTIME PATIENT (test See_Comment [Auto mated message] code = 5964-2) The system [facility] generated this result transmitted ref erence range: 12.0 - 1 4.7 Seconds. The re ference range was not u sed to interpret this result as normal/abnor mal. INR (test code = 6301-6) Nor mal INR <1.1; Warfarin Therap eutic range 2.0 to 3. 0 or 2.5 to 3.5, dep ending upon the indica tions. Lab Interpretation (test Normal code = 04658-6) [facility] CenterCB with Iizwvjxaagey1067-12-67 01:38:27 Test Item Value Reference Range Interpretation [...] RDW-SD (test code = 44.2 fL 39.0-49.9 81192-0) RDW-CV (test code = 12.5 % 12.0-15.5 788-0) PLT (test code = See_Comment [Automated 777-3) message] The sy stem which generated this result transmitted reference range : 166 - 358 10*3/ ?L. The reference r kendell was not used to interpret this result as normal/abnormal . MPV (test code = 9.4 fL 9.5-12.9 L 94929-2) NRBC/100 WBC (test See_Comment [Automat ed code = 6346697099) message] The system which generated this result transmitted reference range : 0.0 - 10.0 /100 WBCs. The refer ence range was not u sed to interpret th is result as normal/abnormal . NRBC x10^3 (test code <0.01 See_Comment [Auto mated = 4957218839) message] The s ystem which generated this result transmitted reference range : 10*3/?L. The reference range was not used to interpret this result as normal/abnormal . GRAN MAT (NEUT) % 63.0 % (test code = 770-8) IMM GRAN % (test code 0.10 % = 0209299475) LYMPH % (test code = 21.2 % 736-9) MONO % (test code = 8.0 % 5905-5) EOS % (test code = 7.1 % 713-8) BASO % (test code = 0.6 % 706-2) GRAN MAT x10^3(ANC) 6.08 10*3/uL 1.88-7.09 (test code = 7295577110) IMM GRAN x10^3 (test <0.03 0.00-0.06 code = 5179297072) LYMPH x10^3 (test code 2.04 10*3/uL 1.32-3.29 = 731-0) MONO x10^3 (test code 0.77 10*3/uL 0.33-0.92 = 742-7) EOS x10^3 (test code = 0.68 10*3/uL 0.03-0.39 H 711-2) BASO x10^3 (test code 0.06 10*3/uL 0.01-0.07 = 704-7) Lab Interpretation Abnormal (test code = 63830-1) [facility] CenterSurgical pathology [id number] 23:47:47 Test Item Value Reference Range Interpretation Comments Case number (test code = [id number]) Surgical pathology See link below for report (test code = PDF Lab Report 2255) Result status (test code This is Final Report = [id number]) for [id number] [facility]2021-02-04 19:25:07Himanshu Ludwig CRNA 12/13/2020 1:28 [place]: [...] RSI: No Number of Attempts at Approach: [address] [place], [place] [address]ipheral Dtrrn9375-00-36 17:53:19Baljit Muñoz MD 12/13/2020 11:54 AMPeripheral Block [...] complications, patient comfortable and patient [facility] rseidhm5740-87-72 01:59:29 Test Item Value Reference Range Interpretation Comments Urine culture Mixed roseanna Specimen isolate (test <=10-3 col/cc InformationSp ecimen code = 47278-9) Source: Urin eSpecimen Site: Clean cat ch [facility] CenterCOVID-19 qualitative [id number] 01:20:42 Test Item Value Reference Range Interpretation Comments Interpretation (test Negative results do code = 3934519) not preclude 2019-nCoV infection and should not be used as the sole basis for treatment or other patient management decisions. Negative results must be combined with clinical observations, patient history, and epidemiological information. COVID-19 qualitative Not-Detected Not-Detected RT-PCR result (test code = 80836-3) COVID-19 qualitative See link below for C ase Number: RT-PCR (test code = PDF Lab Report [id number]) [facility] CenterEC Pre/Post [id number] 01:07:29 Test Item Value Reference Range Interpretation Comments Ventricular rate (test code = 253) Atrial rate (test code = 255) PA interval (test code = 266) QRSD interval [...] Turner MD (6837) on 12/11/2020 7:07:27 PM [facility] CenterAF vzyhoim6755-44-86 06:13:39 Test Item Value Reference Range Interpretation Comments AFB culture No growth Specimen isolate (test after 6 weeks InformationSp ecimen code = 543-9) of Source: Joint incubation. FluidSpecimen S ite: RIGHT SHOULDER/ASPIRA TION [facility] HospitalFungus [id number] 06:15:29 Test Item Value Reference Range Interpretation Comments Fungus culture No growth Specimen isolate (test after 4 weeks InformationSp ecimen code = 1441) of Source: Joint incubation. FluidSpecimen S ite: RIGHT SHOULDER/ASPIRA TION [facility] HospitalCONSENT TO CONTACT FOR VOLUNTARY [id number] 19:43:51 Test Item Value Reference Range Interpretation Comments Consent To Contact For Voluntary Yes Research (test code = 4947) [facility]"
[2022-02-16 22:21] LABS: Urine Blood Negative (Negative); Urine Glucose Negative (Negative); Urine Protein Negative (Negative)
[2022-02-16 22:44] LABS: Barbiturates NEGATIVE (NEGATIVE); Benzodiazepines NEGATIVE (NEGATIVE); Cocaine NEGATIVE (NEGATIVE); METHAMPHETAM NEGATIVE (NEGATIVE); Methadone NEGATIVE (NEGATIVE); Opiates NEGATIVE (NEGATIVE); Phencyclidine NEGATIVE (NEGATIVE); THC Cannibis NEGATIVE (NEGATIVE)
[2022-02-17] MEDS ORDERED: NA CHLORIDE 0.9% 1,000 ML ONE (00:27)
[2022-02-17] MEDS ORDERED: FAMOTIDINE 20 MG/2 ML VIAL IV ONE (00:27)
[2022-02-17] MEDS ORDERED: ONDANSETRON 4 MG/2 ML VIAL ONE (00:27)
[2022-02-17 00:29] LABS: Absolute Lymphocytes (CBC) 1.6 K/uL (0.7-4.9); Hematocrit 44.1 % (36.0-45.0); Lymphocytes % 25.2 % (15.3-44.8); MPV 7.1 fL (7.6-11.3); RBC Red Blood Cell Count 4.83 M/uL (3.86-4.86)
[2022-02-17 00:37] LABS: Albumin 3.8 g/dL (3.4-5.0); Bilirubin Total 0.9 mg/dL (0.2-1.0); Potassium 3.1 mmol/L (3.5-5.1); Protein, Total 6.7 g/dL (6.4-8.2)
[2022-02-17 00:51] LABS: Urine Bacteria <20 /HPF (<20); Urine RBC <5 /HPF (NONE SEEN); Urine Urothelial Cells <5 /HPF (NONE SEEN)
[2022-02-17] MEDS ORDERED: POTASSIUM 25 MEQ EFFERV TAB ONE (01:44)
[2022-02-17] MEDS ORDERED: CEFTRIAXONE 1000 MG/VIAL ONE (01:44)
[2022-02-17] MEDS ORDERED: KETOROLAC 30 MG/ML INJ ONE (01:44)
[2022-02-17] MEDS ORDERED: NA CHLORIDE 0.9% 50 ML ONE (01:45)
--- NOTE | 2022-02-17 01:51 | EDPHYS ---
Physician Documentation [facility] Name: Betsey Martel Age: 56 yrs Sex: Female : 1965 Arrival Date: 02/16/2022 Time: 19:41 Bed 8 Private MD: ED Physician Jerry Coronado HPI: 02/16 22:45 This 56 yrs old Female presents to ER via Wheelchair with complaints of Possible mh7 dehydration. 22:45 The patient presents to the emergency department with nausea, that is moderate, mh7 vomiting, that is intermittent, described as clear fluid, diarrhea, that is intermittent, abdominal pain, of the epigastric area, described as intermittent, vague,\E\ waxing and waning, and does not radiate. Onset: The symptoms/episode began/occurred 5 day(s) ago. Possible causes: unknown. The symptoms are aggravated by food , The symptoms are alleviated by nothing. Associated signs and symptoms: Pertinent negatives: anorexia, belching, constipation, dysuria, fever, flatulence, GI bleeding, hematuria, vaginal discharge. Severity of symptoms: At their worst the symptoms were moderate 3 day(s) ago, in the emergency department the symptoms have improved mildly. Historical: - Allergies: 20:04 Cymbalta; lp1 20:04 Seroquel; lp1 20:04 GABAPENTIN; lp1 - Home Meds: 20:04 carvedilol Oral [Active]; Protonix Oral [Active]; atorvastatin oral [Active]; lp1 Hydralazine Oral [Active]; - PMHx: 20:04 Anemia; BRAIN TUMOR 1996; CHF; Chronic pain; degenerative bone disease; Depression; lp1 ETHO INTOXICATION; GERD; ETOH; Hip Pain; Hypertension; kidney disease; Hypothyroidism; Rheumatoid Arthritis; osteoarthritis; THORACIC AORTIC ANEURYSM; - Immunization history:: Adult Immunizations up to date. - Social history:: Smoking status: Patient reports the use of cigarette tobacco products, smokes one-half pack cigarettes per day. ROS: 22:45 Constitutional: Negative for fever, chills, and weight loss, Eyes: Negative for injury, mh7 pain, redness, and discharge, ENT: Negative for injury, pain, and discharge, Neck: Negative for injury, pain, and swelling, Cardiovascular: Negative for chest pain, palpitations, and edema, Respiratory: Negative for shortness of breath, cough, wheezing, and pleuritic chest pain, Back: Negative for injury and pain, : Negative for injury, bleeding, discharge, and swelling, MS/Extremity: Negative for injury and deformity, Skin: Negative for injury, rash, and discoloration, Neuro: Negative for headache, weakness, numbness, tingling, and seizure, Psych: Negative for depression, anxiety, suicide ideation, homicidal ideation, and hallucinations, Allergy/Immunology: Negative for hives, rash, and allergies, Endocrine: Negative for neck swelling, polydipsia, polyuria, polyphagia, and marked weight changes, Hematologic/Lymphatic: Negative for swollen nodes, abnormal bleeding, and unusual bruising. Exam: 22:45 Constitutional: This is a well developed, well nourished patient who is awake, alert, mh7 and in no acute distress. Head/Face: Normocephalic, atraumatic. Eyes: Pupils equal round and reactive to light, extra-ocular motions intact. Lids and lashes normal. Conjunctiva and sclera are non-icteric and not injected. Cornea within normal limits. Periorbital areas with no swelling, redness, or edema. Neck: Trachea midline, no thyromegaly or masses palpated, and no cervical lymphadenopathy. Supple, full range of motion without nuchal rigidity, or vertebral point tenderness. No Meningismus. Chest/axilla: Normal chest wall appearance and motion. Nontender with no deformity. No lesions are appreciated. Cardiovascular: Regular rate and rhythm with a normal S1 and S2. No gallops, murmurs, or rubs. Normal PMI, no JVD. No pulse deficits. Respiratory: Lungs have equal breath sounds bilaterally, clear to auscultation and percussion. No rales, rhonchi or wheezes noted. No increased work of breathing, no retractions or nasal flaring. 22:45 Back: No spinal tenderness. No costovertebral tenderness. Full range of motion. Skin: Warm, dry with normal turgor. Normal color with no rashes, no lesions, and no evidence of cellulitis. MS/ Extremity: Pulses equal, no cyanosis. Neurovascular intact. Full, normal range of motion. Neuro: Awake and alert, GCS 15, oriented to person, place, time, and situation. Cranial nerves II-XII grossly intact. Motor strength 5/5 in all extremities. Sensory grossly intact. Cerebellar exam normal. Normal gait. Psych: Awake, alert, with orientation to person, place and time. Behavior, mood, and affect are within normal limits. 22:45 Abdomen/GI: Inspection: scar(s), are noted in the right upper quadrant, Bowel sounds: normal, in all quadrants, Palpation: moderate abdominal tenderness, in the epigastric area, mass, is not appreciated, rebound tenderness, is not appreciated, voluntary guarding, is not appreciated, involuntary guarding, is not appreciated, no appreciated organomegaly, Rectal exam: the exam is deferred, because of patient request, Indicators: McBurney's point is not tender, Goldsmith's sign is negative, Rovsing's sign is negative, Obturator sign is negative, Psoas sign is negative, Liver: no appreciated palpable abnormalities, Hernia: not appreciated. Vital Signs: 20:05 BP 148 / 95; Pulse 89; Resp 18; Temp 98.3(O); Pulse Ox 97% on R/A; Weight 59.87 kg (R); lp1 Height 5 ft. 6 in. (167.64 cm); Pain 7/10; 22:47 BP 157 / 79; Pulse 73; Resp 18 S; Pulse Ox 98% on R/A; as6 02/17 01:05 BP 180 / 82; Pulse 74; Resp 17; Pulse Ox 100% on R/A; kd3 01:54 BP 166 / 85; Pulse 80; Resp 18 S; Pulse Ox 99% on R/A; as6 02/16 20:05 Body Mass Index 21.31 (59.87 kg, 167.64 cm) lp1 MDM: 01:48 Differential diagnosis: Nonspecific abd pain, gastritis, pancreatitis, diverticulitis, mh7 viral gastroenteritis, gastroenteritis. Data reviewed: vital signs, nurses notes, lab test result(s), CBC, electrolytes, urinalysis, radiologic studies, CT scan. Data interpreted: Pulse oximetry: on room air is 100 %. Interpretation: normal. Counseling: I had a detailed discussion with the patient and/or guardian regarding: the historical points, exam findings, and any diagnostic results supporting the discharge/admit diagnosis, the presence of at least one elevated blood pressure reading (>120/80) during this emergency department visit, lab results, radiology results, the need for outpatient follow up, a bilingual hr generalist, to return to the emergency department if symptoms worsen or persist or if there are any questions or concerns that arise at home. Response to treatment: the patient's symptoms have markedly improved after treatment. 01:50 Patient medically screened. [facility] 02/16 21:58 Order name: CBC with Diff; Complete Time: 00:35 [facility] 02/16 21:58 Order name: CMP; Complete Time: 01:23 [facility] 02/16 21:58 Order name: Lipase; Complete Time: 01:23 [facility] 02/16 22:08 Order name: UDS; Complete Time: 23:10 [facility] 02/16 22:21 Order name: Urine Dipstick-Ancillary; Complete Time: 22:28 [facility] 02/16 22:21 Order name: Urine --Ancillary (enter results); Complete Time: 23:17 [facility] 02/16 22:29 Order name: Urine Microscopic Only; Complete Time: 01:23 [facility] 02/16 22:29 Order name: Urine Culture [facility] 02/17 00:53 Order name: Abdomen [facility] 02/16 21:58 Order name: IV Saline Lock; Complete Time: 00:14 [facility] 02/16 21:58 Order name: Labs collected and sent; Complete Time: 00:14 [facility] 02/16 21:58 Order name: Urine Dipstick-Ancillary (obtain specimen); Complete Time: 22:21 [facility] 02/16 23:23 Order name: EKG; Complete Time: 23:24 [facility] 02/16 23:23 Order name: EKG - Nurse/Tech; Complete Time: 01:16 [facility] Administered Medications: 00:28 Drug: NS 0.9% 1000 ml Route: IV; Rate: 1 bolus; Site: left hand; kd3 01:55 Follow up: Response: No adverse reaction; IV Status: Completed infusion; IV Intake: as6 1000ml 00:28 Drug: Pepcid (famotidine) 20 mg Route: IVP; Site: left hand; kd3 00:36 Follow up: Response: No adverse reaction kd3 00:29 Drug: Zofran (Ondansetron) 4 mg Route: IVP; Site: left hand; kd3 00:36 Follow up: Response: Nausea is decreased kd3 01:52 Drug: Rocephin (cefTRIAXone) 1 grams Route: IV; Rate: per protocol; Site: left hand; 01:56 Follow up: Response: No adverse reaction; IV Status: Completed infusion; IV Intake: [id number] 01:52 Drug: Ketorolac 15 mg Route: IVP; Site: left hand; 01:56 Follow up: Response: No adverse reaction as6 01:52 Drug: Potassium Effervescent Tablet 50 mEq Route: PO; 01:56 Follow up: Response: No adverse reaction as6 Disposition Summary: 02/17/22 01:50 Discharge Ordered Location: Home [facility] Problem: new [facility] Symptoms: have improved [facility] Condition: Stable [facility] Diagnosis - Diverticulosis of large intestine without perforation or abscess without bleeding 7 - UTI/ Urinary tract infection, site not specified [facility] - Hypokalemia [facility] Followup: [facility] - With: Private Physician - When: 1 - 2 days - Reason: Worsening of condition, Recheck today's complaints, Continuance of care, Re-evaluation by your physician Followup: [facility] - With: Gibran Apodaca MD - When: 1 - 2 days - Reason: Worsening of condition, Recheck today's complaints Discharge Instructions: - Discharge Summary Sheet [facility] - Diverticulosis [facility] - Urinary Tract Infection, Adult, [id number] [facility] - Hypokalemia [facility] Forms: - Medication Reconciliation Form [facility] - Thank You Letter [facility] - Antibiotic Education [facility] - Prescription Opioid Use [facility] Prescriptions: - ondansetron 4 mg Oral tablet,disintegrating - place 1 tablet by TRANSLINGUAL route every 8 hours As needed; 10 tablet; [facility] Refills: 0, Product Selection Permitted - Cephalexin 500 mg Oral Capsule - take 1 capsule by ORAL route every 12 hours for 7 days; 14 capsule; Refills: 0, [facility] Product Selection Permitted - Pepcid 20 mg Oral Tablet - take 1 tablet by ORAL route every 12 hours for 5 days; 10 tablet; Refills: 0, [facility] Product Selection Permitted - dicyclomine 20 mg Oral Tablet - take 1 tablet by ORAL route 4 times per day As needed; 20 tablet; Refills: 0, [facility] Product Selection Permitted Signatures: Dispatcher [facility] Betsey Alas RN RN lp1 Jerry Coronado MD MD 7 Patric Moreno RN RN as6 Bethany Degroot, RN RN kd3 Emilie Hernandez, PA PA sb3 Corrections: (The following items were deleted from the chart) 00:53 02/16 22:31 Abdomen Pelvis W [id number] ordered. EDMS EDMS
--- NOTE | 2022-02-17 01:51 | ER ---
Nurse's Notes [facility] Name: Betsey Martel Age: 56 yrs Sex: Female : 1965 Arrival Date: 02/16/2022 Time: 19:41 Bed 8 Private MD: Diagnosis: Diverticulosis of large intestine without perforation or abscess without bleeding;UTI/ Urinary tract infection, site not specified;Hypokalemia Presentation: 02/16 20:02 Chief complaint: EMS states: Called for dehydration. Patient reports "I can't keep lp1 anything down besides water"; Reports vomiting and diarrhea x 5 days. Coronavirus screen: At this time, the client does not indicate any symptoms associated with coronavirus-19. Ebola Screen: No symptoms or risks identified at this time. Risk Assessment: Do you want to hurt yourself or someone else? Patient reports no desire to harm self or others. Onset of symptoms was February 16, 2022. 20:02 Method Of Arrival: Wheelchair lp1 20:02 Acuity: KAREN 3 lp1 20:05 Initial Sepsis Screen: Does the patient meet any 2 criteria? No. Patient's initial lp1 sepsis screen is negative. Does the patient have a suspected source of infection? No. Patient's initial sepsis screen is negative. Historical: - Allergies: 20:04 Cymbalta; lp1 20:04 Seroquel; lp1 20:04 GABAPENTIN; lp1 - Home Meds: 20:04 carvedilol Oral [Active]; Protonix Oral [Active]; atorvastatin oral [Active]; lp1 Hydralazine Oral [Active]; - PMHx: 20:04 Anemia; BRAIN TUMOR 1996; CHF; Chronic pain; degenerative bone disease; Depression; lp1 ETHO INTOXICATION; GERD; ETOH; Hip Pain; Hypertension; kidney disease; Hypothyroidism; Rheumatoid Arthritis; osteoarthritis; THORACIC AORTIC ANEURYSM; - Immunization history:: Adult Immunizations up to date. - Social history:: Smoking status: Patient reports the use of cigarette tobacco products, smokes one-half pack cigarettes per day. Screenin:58 Abuse screen: Denies threats or abuse. Denies injuries from another. Nutritional kd3 screening: No deficits noted. Tuberculosis screening: No symptoms or risk factors identified. Fall Risk None identified. Assessment: 21:56 General: Appears in no apparent distress. Behavior is calm, cooperative. Pain: kd3 Complains of pain in chronic back pain. Neuro: Level of Consciousness is awake, alert, obeys commands, Oriented to person, place, time, situation. Cardiovascular: Patient's skin is warm and dry. Respiratory: Airway is patent Trachea midline Respiratory effort is even, unlabored, Respiratory pattern is regular, symmetrical. GI: Reports nausea, vomiting. : No signs and/or symptoms were reported regarding the genitourinary system. EENT: No signs and/or symptoms were reported regarding the EENT system. Derm: No signs and/or symptoms reported regarding the dermatologic system. Musculoskeletal: No signs and/or symptoms reported regarding the musculoskeletal system. 02/17 00:39 Reassessment: Patient and/or family updated on plan of care and expected duration. Pain kd3 level reassessed. Patient is alert, oriented x 3, equal unlabored respirations, skin warm/dry/pink. Reassessment: pt sleeping comfortably. no n/v. General: Appears in no apparent distress. Vital Signs: 02/16 20:05 BP 148 / 95; Pulse 89; Resp 18; Temp 98.3(O); Pulse Ox 97% on R/A; Weight 59.87 kg (R); lp1 Height 5 ft. 6 in. (167.64 cm); Pain 05/18; 22:47 BP 157 / 79; Pulse 73; Resp 18 S; Pulse Ox 98% on R/A; as6 02/17 01:05 BP 180 / 82; Pulse 74; Resp 17; Pulse Ox 100% on R/A; kd3 01:54 BP 166 / 85; Pulse 80; Resp 18 S; Pulse Ox 99% on R/A; as6 02/16 20:05 Body Mass Index 21.31 (59.87 kg, 167.64 cm) lp1 ED Course: 02/16 19:41 Patient arrived in ED. kz 20:02 Arm band placed on. lp1 20:04 Triage completed. lp1 21:42 Patric Moreno, SOURAV is Primary Nurse. as6 21:42 Jerry Coronado MD is Attending Physician. 7 21:58 Patient has correct armband on for positive identification. Placed in gown. Bed in low kd3 position. Call light in reach. Side rails up X 1. 22:25 UDS Sent. as6 02/17 00:40 Missed attempt(s): 22 gauge Bleeding controlled, band aid applied, catheter tip intact. oe 00:45 Inserted saline lock: 24 gauge in right hand, using aseptic technique. Blood collected. oe 01:07 Abdomen In Process Unspecified. EDMS 01:49 Gibran Apodaca MD is Referral Physician. [facility] 02:07 No provider procedures requiring assistance completed. IV discontinued, intact, kd3 bleeding controlled, No redness/swelling at site. Pressure dressing applied. Administered Medications: 00:28 Drug: NS 0.9% 1000 ml Route: IV; Rate: 1 bolus; Site: left hand; kd3 01:55 Follow up: Response: No adverse reaction; IV Status: Completed infusion; IV Intake: as6 1000ml 00:28 Drug: Pepcid (famotidine) 20 mg Route: IVP; Site: left hand; kd3 00:36 Follow up: Response: No adverse reaction kd3 00:29 Drug: Zofran (Ondansetron) 4 mg Route: IVP; Site: left hand; kd3 00:36 Follow up: Response: Nausea is decreased kd3 01:52 Drug: Rocephin (cefTRIAXone) 1 grams Route: IV; Rate: per protocol; Site: left hand; as6 01:56 Follow up: Response: No adverse reaction; IV Status: Completed infusion; IV Intake: [id number] 01:52 Drug: Ketorolac 15 mg Route: IVP; Site: left hand; as6 01:56 Follow up: Response: No adverse reaction as6 01:52 Drug: Potassium Effervescent Tablet 50 mEq Route: PO; as6 01:56 Follow up: Response: No adverse reaction as6 Intake: 01:55 IV: 1000ml; Total: 1000ml. as6 01:56 IV: 50ml; Total: 1050ml. as6 Outcome: 01:50 Discharge ordered by . 7 02:07 Discharged to home ambulatory. kd3 02:07 Condition: stable 02:07 Instructed on discharge instructions, follow up and referral plans. medication usage, Demonstrated understanding of instructions, follow-up care, medications, Prescriptions given X 3. 02:07 Patient left the ED. kd3 Signatures: Dispatcher [employer] EDMD Betsey Gilmore RN RN lp1 Nura Garza oe Jerry Coronado MD MD mh7 Patric Moreno RN RN as6 Bethany Degroot RN RN kd3 Dara Eddy Corrections: (The following items were deleted from the chart) 00:55 00:52 Missed attempt(s): 22 gauge Bleeding controlled, band aid applied, catheter tip oe intact. oe
[2022-02-17 05:12] VITALS: TEMP 98.3
[2022-02-17 05:16] VITALS: BP 166/85; O2SAT 99
--- NOTE | 2022-02-17 09:36 | EKG ---
Test Date: 2022-02-17 Test Time: 01:17:26 Employment Director: MEASUREMENT RESULTS: Intervals: Rate: 67 ME: 140 QRSD: 88 QT: 442 QTc: 467 [place]: P: 49 ME: 140 QRS: 23 T: 41 INTERPRETIVE STATEMENTS: Sinus tachycardia with 2nd degree AV block with 3:1 AV conduction T wave abnormality, consider anterior ischemia Prolonged QT Abnormal ECG Compared to ECG 01/20/2021 18:55:37 T-wave abnormality now present Possible ischemia now present Prolonged QT interval now present Sinus rhythm no longer present Electronically Signed On 02-17-22 09:35:28 CDT by Lavell Ruiz
--- NOTE | 2022-02-17 16:15 | RAD REPORT ---
EXAM DESCRIPTION: CT - Abdomen Pelvis Wo Contrast - 02/17/2022 6:41 am CLINICAL HISTORY: The patient is 56 years old and is Female; diarrhea;Nausea / vomiting TECHNIQUE: Axial computed tomography images of the abdomen and pelvis without intravenous contrast. Sagittal and coronal reformatted images were created and reviewed. This CT exam was performed usi ng one or more of the following dose reduction techniques: automated exposure control, adjustment o f the mA and/or kV according to patient size, and/or use of iterative reconstruction technique. COMPARISON: No relevant prior studies available. FINDINGS: LUNG BASES: Unremarkable. No mass. No consolidation. ABDOMEN: LIVER: Homogeneous without focal mass. GALLBLADDER AND BILE DUCTS: Surgical clips are present in the right upper quadrant, consistent w ith previous cholecystectomy. PANCREAS: Pancreas is atrophic. No ductal dilation. SPLEEN: Unremarkable. ADRENALS: Unremarkable. No mass. KIDNEYS AND URETERS: There is no hydronephrosis or hydroureter of either kidney. No obstructing renal or ureteral calculus is seen. STOMACH AND BOWEL: The stomach is minimally distended with fluid and air. The small bowel is nor mal in caliber. A few small bowel loops are fluid-filled. Stool is present throughout colon. No evide nce of bowel obstruction. No significant bowel wall thickening. Colonic diverticulosis is noted, with out associated inflammatory changes to suggest diverticulitis. PELVIS: APPENDIX: The appendix is normal in caliber without surrounding inflammation. BLADDER: The bladder is moderately distended. No stones. REPRODUCTIVE: Unremarkable as visualized. ABDOMEN and PELVIS: INTRAPERITONEAL SPACE: Unremarkable. No free air. No significant fluid collection. BONES/JOINTS: No acute fracture. Minimal degenerative change of the lower lumbar spine is presen t. SOFT TISSUES: The soft tissues are normal. VASCULATURE: Calcified phleboliths are present within the pelvis. 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 The vascular structures are normal in caliber. LYMPH NODES: Unremarkable. No enlarged lymph nodes. IMPRESSION: Colonic diverticulosis without evidence of diverticulitis. Electronically signed by: Tina Christianson MD 02/17/2022 1:23 AM CDT Due to temporary technical issues with the PACS/Fluency reporting system, reports are being signed by the in house radiologist without review as a courtesy to ensure prompt reporting. The interpreting r adiologist is fully responsible for the content of the report.
== END 2022-02-17 02:07 | disposition home or self-care (01) ==
LOC: ER 19:34
DX: E87.6 Hypokalemia (principal); N39.0 Urinary tract infection, site not specified; K57.30 Diverticulosis of large intestine without perforation or abscess without bleeding; I10 Essential (primary) hypertension; I50.9 Heart failure, unspecified; N28.9 Disorder of kidney and ureter, unspecified; F17.210 Nicotine dependence, cigarettes, uncomplicated; Z88.8 Allergy status to other drugs, medicaments and biological substances
CPT/HCPCS: 96361; 93005; 87088; 85025; 87086; 36415; 81025; 83690; 80053; 80307; 74176; 96375; 96374; 99284; J7030; J2405; 81003; 81015

== ENCOUNTER 2022-02-19 07:37 | Inpatient (IN) | payer OTHER ==
--- OUTSIDE RECORDS SUMMARY | 2022-02-19 07:47 | XMS REPORT | Continuity of Care Document ---
:1965 Author Organization [facility] t Address [address] [place] [address] Care Team Providers Name Role Phone Owens, E Primary Care Physician LINDA Attending Clinician Unavailable TERE Attending Clinician Unavailable SAGRARIO Attending Clinician Unavailable Doctor Unassigned, Name Attending Clinician Unavailable Only, Db Test Attending Clinician Unavailable Kyle [employer] Attending Clinician KYLE Attending Clinician Unavailable Pob, [...] Fam Pob I Attending Clinician Unavailable [place]olis [employer] Attending Clinician Ebrahim [employer] Attending Clinician SRINIVASAN Attending Clinician Unavailable Jaime MAXWELL Attending Clinician JAIME Attending Clinician Unavailable LUIS Attending Clinician Unavailable DIANA Attending Clinician Unavailable Emily BENJAMIN Attending Clinician Unavailable Petra TAYLOR [facility] Admitting Clinician CHARLES Admitting Clinician Unavailable RA CRESPO Admitting Clinician Unavailable KALE ONOFRE Admitting Clinician Unavailable Payers Payer Name Policy Type Policy Number Effective Date Expiration Date S ource MEDICAID OF [place] [id number] 2006 00:00:00 [facility] DUAL [id number] 2021 COMP HMO D SNP 00:00:00 [facility] WELLMED [id number] 2020 2024 00:00:00 00:00:00 Problems Condition Condition [...] thyroid 2-26 ity of nodule nodule 00:00: [place] [facility] HLD HLD Disease Active Univers [...] different from the original. ICD10 Diagnosis Term Financial Services Professional Utility Essential Essential Disease Active Uni vers [...] NE INGREDI 2-24 ity of FUMARATE 00:00: [place] 00 [facility] Branch BUPROPIO DRUG Active Swelling Univer s N HCL INGREDI 2-24 ity of 00:00: [place] 00 [facility] Social History Social Habit Start Date Stop Date Quantity Comments Source Exposure to Not sure University of SARS-CoV-2 (event) [facility] History of tobacco Cigarette Smoker University of use [facility] History SDOH [place] o f Alcohol Frequency [facility] edical [place] History SDVT University o f Alcohol Std Drinks [facility] History [facility] o f Alcohol Binge [facility] [place] Cigarettes smoked 2020-12-14 2020-12-[address] current (pack per 00:00:00 00:00:00 Hospita l day) - Reported Cigarette 2020-12-14 2020-12-14 [facility] pack-years 00:00:00 00:00:00 Hospital Tobacco use and 2020-12-14 2020-12-14 Never used [facility] exposure 00:00:00 00:00:00 Hospital Alcohol intake 2020-12-14 2020-12-14 0 /d [facility] 00:00:00 00:00:00 Hospital Alcohol Comment 2015-12-25 2015-12-25 Social Drinker Unive rsity of 00:00:00 00:00:00 [facility] Sex Ass[birth year] At [birth year] [facility] 00:00:00 00:00:00 Hospital Smoking Status Start Date Stop Date Source Tobacco [facility] Current every day smoker 2021-05-31 00:00:00 Uni versity of [facility] Light tobacco smoker 2020-12-14 00:00:00 [facility] Medications Ordered Filled Start Stop [...] tablet 25 nightly. l hydromorPHO 2020-11 Yes [id number] 4mg Q8H Take 4 mg Methodi NE [...] every l morning. clonAZEPAM 2020-11 Yes 1mg [id number] Take 1 mg [facility]i (KlonoPIN) 0-04 [id number] by mouth 3 [facility] 1 MG tablet [...] 25 l coated tablet NON 2020-11 Yes [id number] [facility] FORMULARY 0-[address] 13:44: --- [...] by mouth ity of (PROTONIX) 22:50: daily. [place] 40 mg EC Medical tablet Branch citalopram [...] by mouth ity of (PROTONIX) 22:50: daily. [place] 40 mg EC Medical tablet Branch citalopram [...] 5-26 by mouth ity of 22:50: daily. [place] [facility] magnesium Yes Take by Univ ers oxide 400 5-26 mouth. ity of mg 22:50: [place] magnesium Medical Tab Branch biotin 1 mg Yes Take by Un christie Cap 5-26 mouth. ity of 22:50: [place] [facility] furosemide Yes 20mg Take 20 mg U nivers 20 mg 5-26 by mouth ity of tablet 22:50: every [place] morning Medical and Branch evening. pantoprazol Yes 40mg Take 40 mg Univers e 5-26 by mouth ity of (PROTONIX) 22:50: daily. [place] 40 mg EC Medical tablet Branch citalopram [...] 5-26 by mouth ity of 22:50: daily. [place] [facility] magnesium Yes Take by Univ ers oxide 400 5-26 mouth. ity of mg 22:50: [place] magnesium Medical Tab Branch biotin 1 mg Yes Take by Un christie Cap 5-26 mouth. ity of 22:50: [place] [facility] furosemide Yes 20mg Take 20 mg U nivers 20 mg 5-26 by mouth ity of tablet 22:50: every [place] morning Medical and Branch evening. pantoprazol Yes 40mg Take 40 mg Univers e 5-26 by mouth ity of (PROTONIX) 22:50: daily. [place] 40 mg EC Medical tablet Branch citalopram [...] 5-26 by mouth ity of 22:50: daily. [place] [facility] magnesium Yes Take by Univ ers oxide 400 5-26 mouth. ity of mg 22:50: [place] magnesium Medical Tab Branch biotin 1 mg Yes Take by Un christie Cap 5-26 mouth. ity of 22:50: [place] [facility] furosemide Yes 20mg Take 20 mg U nivers 20 mg 5-26 by mouth ity of tablet 17:50: every [place] morning Medical and Branch evening. pantoprazol Yes 40mg Take 40 mg Univers e 5-26 by mouth ity of (PROTONIX) 17:50: daily. [place] 40 mg EC Medical tablet Branch citalopram [...] 5-26 by mouth ity of 17:50: daily. [place] [facility] magnesium Yes Take by Univ ers oxide 400 5-26 mouth. ity of mg 17:50: [place] magnesium Medical Tab Branch biotin 1 mg Yes Take by Un christie Cap 5-26 mouth. ity of 17:50: [place] [facility] furosemide Yes 20mg Take 20 mg U nivers 20 mg 5-26 by mouth ity of tablet 17:50: every [place] morning Medical and Branch evening. pantoprazol Yes 40mg Take 40 mg Univers e 5-26 by mouth ity of (PROTONIX) 17:50: daily. [place] 40 mg EC Medical tablet Branch citalopram [...] 5-26 by mouth ity of 17:50: daily. [place] [facility] magnesium Yes Take by Univ ers oxide 400 5-26 mouth. ity of mg 17:50: [place] magnesium Medical Tab Branch biotin 1 mg Yes Take by Un christie Cap 5-26 mouth. ity of 17:50: [place] [facility] furosemide Yes 20mg Take 20 mg U nivers 20 mg 5-26 by mouth ity of tablet 17:50: every [place] morning Medical and Branch evening. pantoprazol Yes 40mg Take 40 mg Univers e 5-26 by mouth ity of (PROTONIX) 17:50: daily. [place] 40 mg EC Medical tablet Branch citalopram [...] 5-26 by mouth ity of 17:50: daily. [place] [facility] magnesium Yes Take by Univ ers oxide 400 5-26 mouth. ity of mg 17:50: [place] magnesium Medical Tab Branch biotin 1 mg Yes Take by Un christie Cap 5-26 mouth. ity of 17:50: [place] [facility] furosemide Yes 20mg Take 20 mg U nivers 20 mg 5-26 by mouth ity of tablet 17:50: every [place] morning Medical and Branch evening. pantoprazol Yes 40mg Take 40 mg Univers e 5-26 by mouth ity of (PROTONIX) 17:50: daily. [place] 40 mg EC Medical tablet Branch citalopram [...] by mouth ity of tablet 17:50: daily. [place] [address] Medical Branch acetaminoph Yes Take by Un christie en 04-03 mouth ity of (TYLENOL) 17:50: every 6 [place] 325 mg 01 (six) Medical tablet hours as Branch needed for Pain (scale 1-3). amLODIPine Yes 5mg Take 5 mg Un christie 5 mg tablet 04-03 by mouth ity of 17:50: daily. [place] [address] Medical Branch magnesium Yes Take by [facility] ers oxide 400 04-03 mouth. ity of mg 17:50: [place] magnesium Medical Tab Branch biotin 1 mg Yes Take by Un christie Cap 04-03 mouth. ity of 17:50: [place] [address] Medical Branch HYDROmorpho 2020- No 8mg Take 8 mg Univers ne 04-03 by mouth ity of (DILAUDID) 17:02: 00:00 every 6 [place] as 8 mg tablet 51 :00 (six) Medical hours as Branch needed for Pain. atropine Yes .5mg 0.5 mg, IV Uni vers injection 04-03 Push, PRN ity o f 0.5 mg 05:33: - SEE [place] 00 INSTRUCTIO Medical NS, Branch Starting 04/03/21 at 0033, Until Discontinu ed, Routine, Symptomati c Bradycardi a dextrometho Yes 10mL 10 mL, Univ ers rphan-guaif 04-03 Oral, ity of enesin 03:58: Q6HPRN, [place] (ROBITUSSIN 20 Starting Medi dyan DM) 10-100 [...] 00:00: mouth [place] 00 every 12 Medical ([facility]) Branch hours as needed for Pain. Indication s: chronic pain enoxaparin Yes 40mg 40 mg, Unive rs (LOVENOX) 5-25 Subcutaneo ity of injection 22:00: [place], DAILY, [place] 40 mg 00 First dose Medical on [facility] 04/02/21 at 1700, Until Discontinu ed, Routine atorvastati Yes 20mg 20 mg, Univ ers n (LIPITOR) 5-25 Oral, QPM, it y of tablet 20 22:00: First dose [place] mg 00 on [facility] 04/02/21 at Branch 1700, Until Discontinu ed, Routine magnesium 2020- No 296mL 296 mL, Uni vers citrate 5-25 05-25 Oral, ity of solution 17:15: 21:48 ONCE, 1 [place] 296 mL 00 :00 dose, [facility] 04/02/21 at Branch 1215, Routine pantoprazol Yes 40mg 40 mg, Univ ers e 5-25 Oral, ity of (PROTONIX) 14:00: DAILY, [place] EC tablet 00 First dose Medi dyan 40 mg on [facility] 04/02/21 at 0900, Until Discontinu ed, Routine aspirin EC Yes 81mg 81 mg, Unive rs tablet 81 5-25 Oral, ity of mg 14:00: DAILY, [place] 00 First dose Medical on [facility] 04/02/21 at 0900, Until Discontinu ed, Routine sennosides- Yes 2{tbl} 2 tablet, Univers docusate 5-25 Oral, BID, ity o f sodium 13:00: First dose [place] (SENOKOT-S) 00 on [facility] l 8.6-50 mg 04/02/21 at [facility] per tablet 0800, 2 tablet Until Discontinu ed, Routine polyethylen Yes 17g 17 g, Unive rs e glycol 5-25 Oral, BID, ity o f 3350 powder 13:00: First dose [place] 17 g 00 on [facility] 04/02/21 at Branch 0800, Until Discontinu ed, Routine ipratropium 0 Yes 3mL 3 mL, [facility] -al[facility]L 5-25 Inhalation ity of (DUONEB) 13:00: , QID, [place] 0.5 mg-3 00 First dose Medic al mg(2.5 mg on Thu [place] )/3 mL 04/02/21 at nebulizer 0800, solution [...] 0300, Routine ipratropium Yes 3mL 3 mL, [facility] rs -albuteroL 5-25 Inhalation ity of (DUONEB) [...] by mouth ity of 06:52: 00:00 daily. [place] 52 :00 Medical Branch acetaminoph Yes 650mg 650 mg, Un christie en 5-25 Oral, ity of (TYLENOL) 06:52: Q6HPRN, [place] tablet 650 06 Starting Medic al mg [...] ity of 1,000 mg in 04:30: 04:21 [place], [place] NaCl 0.9% 00 :00 ONCE, 1 [...] day for 30 days. [place]Ocod[place] 2020- [place] [id number] 1{tbl} Q6H Take 1 Methodi -acetaminop 12-13-[address] [facility] ([place]) 00:00: 05:59 mouth Hosp jah 10-325 mg [...] l times a day. traMADoL 2020- [place] [id number] 50mg Q4H Take 1 Metho di (ULTRAM) [...] 400 0-22 mouth. ity of mg 20:09: [place] [address] Medical Tab Branch traZODONE 2019-11 Yes 50mg Take 50 mg Un christie (DESYREL) 0-22 by mouth ity of 50 mg 20:09: at [place] tablet 19 bedtime. Medical Branch magnesium 2019-11 Yes Take by Univ ers oxide 400 0-22 mouth. ity of mg 20:09: [place] [address] Medical Tab Branch traZODONE 2019-11 Yes 50mg Take 50 mg Un christie (DESYREL) 0-22 by mouth ity of 50 mg 20:09: at [place] tablet 19 bedtime. Medical Branch magnesium 2019-11 Yes Take by Univ ers oxide 400 0-22 mouth. ity of mg 20:09: [place] [address] Medical Tab Branch furosemide 2019-11 Yes 20mg Take 20 mg U nivers (LASIX) 40 0-22 by mouth ity o f mg tablet 20:06: daily. [place] [address] Medical Branch pantoprazol 2019-11 Yes 40mg Take 40 mg Univers e 0-22 by mouth ity of (PROTONIX) 20:06: daily. [place] 40 mg EC 52 Medical tablet Branch citalopram 2019-11 Yes 20mg Take 20 mg U nivers (CELEXA) 20 0-22 by mouth ity of mg tablet 20:06: daily. [place] [address] Medical Branch rOPINIRole 2019-11 Yes 2mg Take 2 mg Un christie (REQUIP) 2 0-22 by mouth ity o f mg tablet 20:06: at [place] [address] bedtime. Medical Branch tiZANidine 2019-11 Yes 2mg [...] 0-22 by mouth ity of 20:06: daily. [place] [address] Medical Branch DOCUSATE 2019-11 Yes 1{tbl} Take 1 Tab U nivers CALCIUM 0-22 by mouth ity of (STOOL 20:06: as needed [place] SOFTENER 52 for Medical ORAL) Constipati Branch on. amLODIPine 2019-11 Yes 5mg Take 5 mg Un christie 5 mg tablet 0-22 by mouth ity of 20:06: daily. [place] [address] Medical Branch furosemide 2019-11 Yes 20mg Take 20 mg U nivers (LASIX) 40 0-22 by mouth ity o f mg tablet 20:06: daily. [place] [address] Medical Branch pantoprazol 2019-11 Yes 40mg Take 40 mg Univers e 0-22 by mouth ity of (PROTONIX) 20:06: daily. [place] 40 mg [facility] Medical tablet Branch citalopram 2019-11 Yes 20mg Take 20 mg U nivers (CELEXA) 20 0-22 by mouth ity of mg tablet 20:06: daily. [place] [address] Medical Branch rOPINIRole 2019-11 Yes 2mg Take 2 mg Un christie (REQUIP) 2 0-22 by mouth ity o f mg tablet 20:06: at [place] [address] bedtime. Medical Branch tiZANidine 2019-11 Yes 2mg [...] 0-22 by mouth ity of 20:06: daily. [place] [address] Medical Branch DOCUSATE 2019-11 Yes 1{tbl} Take 1 Tab U nivers CALCIUM 0-22 by mouth ity of (STOOL 20:06: as needed [place] SOFTENER 52 for Medical ORAL) Constipati Branch on. amLODIPine 2019-11 Yes 5mg Take 5 mg Un christie 5 mg tablet 0-22 by mouth ity of 20:06: daily. [place] [address] Medical Branch furosemide 2019-11 Yes 20mg Take 20 mg U nivers (LASIX) 40 0-22 by mouth ity o f mg tablet 20:06: daily. [place] [address] Medical Branch pantoprazol 2019-11 Yes 40mg Take 40 mg Univers e 0-22 by mouth ity of (PROTONIX) 20:06: daily. [place] 40 mg EC Medical tablet Branch citalopram 2019-11 Yes 20mg Take 20 mg U nivers (CELEXA) 20 0-22 by mouth ity of mg tablet 20:06: daily. [place] [address] Medical Branch rOPINIRole 2019-11 Yes 2mg Take 2 mg Un christie (REQUIP) 2 0-22 by mouth ity o f mg tablet 20:06: at [place] [address] bedtime. Medical Branch tiZANidine 2019-11 Yes 2mg [...] 0-22 by mouth ity of 20:06: daily. [address] Branch DOCUSATE 2019-11 Yes 1{tbl} Take 1 Tab U nivers CALCIUM 0-22 by mouth ity of (STOOL 20:06: as needed [place] SOFTENER for Medical ORAL) Constipati Branch on. amLODIPine 2019-11 Yes 5mg Take 5 mg Un christie 5 mg tablet 0-22 by mouth ity of 20:06: daily. [address] Branch furosemide 2019-11 Yes 20mg Take 20 mg U nivers (LASIX) 40 0-22 by mouth ity o f mg tablet 20:06: daily. [address] Branch pantoprazol 2019-11 Yes 40mg Take 40 mg Univers e 0-22 by mouth ity of (PROTONIX) 20:06: daily. [place] 40 mg EC 52 Medical tablet Branch citalopram 2019-11 Yes 20mg Take 20 mg U nivers (CELEXA) 20 0-22 by mouth ity of mg tablet 20:06: daily. [place] [address] Medical Branch rOPINIRole 2019-11 Yes 2mg Take 2 mg Un christie (REQUIP) 2 0-22 by mouth ity o f mg tablet 20:06: at [place] [address] bedtime. Medical Branch tiZANidine 2019-11 Yes 2mg [...] 0-22 by mouth ity of 20:06: daily. [place] [address] Medical Branch DOCUSATE 2019-11 Yes 1{tbl} Take 1 Tab U nivers CALCIUM 0-22 by mouth ity of (STOOL 20:06: as needed [place] SOFTENER for Medical ORAL) Constipati Branch on. amLODIPine 2019-11 Yes 5mg Take 5 mg Un christie 5 mg tablet 0-22 by mouth ity of 20:06: daily. [place] [address] Medical Branch furosemide 2019-11 Yes 20mg Take 20 mg U nivers (LASIX) 40 0-22 by mouth ity o f mg tablet 20:06: daily. [place] [address] Medical Branch pantoprazol 2019-11 Yes 40mg Take 40 mg Univers e 0-22 by mouth ity of (PROTONIX) 20:06: daily. [place] 40 mg [facility] Medical tablet Branch citalopram 2019-11 Yes 20mg Take 20 mg U nivers (CELEXA) 20 0-22 by mouth ity of mg tablet 20:06: daily. [place] [address] Medical Branch rOPINIRole 2019-11 Yes 2mg Take 2 mg Un christie (REQUIP) 2 0-22 by mouth ity o f mg tablet 20:06: at [place] [address] bedtime. Medical Branch tiZANidine 2019-11 Yes 2mg [...] 0-22 by mouth ity of 20:06: daily. [place] [address] Medical Branch DOCUSATE 2019-11 Yes 1{tbl} Take 1 Tab U nivers CALCIUM 0-22 by mouth ity of (STOOL 20:06: as needed [place] SOFTENER 52 for Medical ORAL) Constipati Branch on. amLODIPine 2019-11 Yes 5mg Take 5 mg Un christie 5 mg tablet 0-22 by mouth ity of 20:06: daily. [place] [address] Medical Branch furosemide 2019-11 Yes 20mg Take 20 mg U nivers (LASIX) 40 0-22 by mouth ity o f mg tablet 20:06: daily. [place] [address] Medical Branch pantoprazol 2019-11 Yes 40mg Take 40 mg Univers e 0-22 by mouth ity of (PROTONIX) 20:06: daily. [place] 40 mg [facility] Medical tablet Branch citalopram 2019-11 Yes 20mg Take 20 mg U nivers (CELEXA) 20 0-22 by mouth ity of mg tablet 20:06: daily. [place] [address] Medical Branch rOPINIRole 2019-11 Yes 2mg Take 2 mg Un christie (REQUIP) 2 0-22 by mouth ity o f mg tablet 20:06: at [place] [address] bedtime. Medical Branch tiZANidine 2019-11 Yes 2mg [...] 0-22 by mouth ity of 20:06: daily. [place] [address] Medical Branch DOCUSATE 2019-11 Yes 1{tbl} Take 1 Tab U nivers CALCIUM 0-22 by mouth ity of (STOOL 20:06: as needed [place] SOFTENER for Medical ORAL) Constipati Branch on. amLODIPine 2019-11 Yes 5mg Take 5 mg Un [facility]ie 5 mg tablet 0-22 by mouth ity of 20:06: daily. [place] [address] Medical Branch furosemide 2019-11 Yes 20mg Take 20 mg U nivers (LASIX) 40 0-22 by mouth ity o f mg tablet 20:06: daily. [place] [address] Medical Branch pantoprazol 2019-11 Yes 40mg Take 40 mg Univers e 0-22 by mouth ity of (PROTONIX) 20:06: daily. [place] 40 mg EC Medical tablet Branch citalopram 2019-11 Yes 20mg Take 20 mg U nivers (CELEXA) 20 0-22 by mouth ity of mg tablet 20:06: daily. [place] [address] Medical Branch rOPINIRole 2019-11 Yes 2mg Take 2 mg Un christie (REQUIP) 2 0-22 by mouth ity o f mg tablet 20:06: at [place] [address] bedtime. Medical Branch tiZANidine 2019-11 Yes 2mg [...] 0-22 by mouth ity of 20:06: daily. [place] [address] Medical Branch DOCUSATE 2019-11 Yes 1{tbl} Take 1 Tab U nivers CALCIUM 0-22 by mouth ity of (STOOL 20:06: as needed [place] SOFTENER for Medical ORAL) Constipati Branch on. amLODIPine 2019-11 Yes 5mg Take 5 mg Un [facility] 5 mg tablet 0-22 by mouth ity of 20:06: daily. [place] [address] Medical Branch furosemide 2019-11 Yes 20mg Take 20 mg U nivers (LASIX) 40 0-22 by mouth ity o f mg tablet 20:06: daily. [place] [address] Medical Branch pantoprazol 2019-11 Yes 40mg Take 40 mg Univers e 0-22 by mouth ity of (PROTONIX) 20:06: daily. [place] 40 mg EC Medical tablet Branch citalopram 2019-11 Yes 20mg Take 20 mg U nivers (CELEXA) 20 0-22 by mouth ity of mg tablet 20:06: daily. [place] [address] Medical Branch rOPINIRole 2019-11 Yes 2mg Take 2 mg Un christie (REQUIP) 2 0-22 by mouth ity o f mg tablet 20:06: at [place] [address] bedtime. Medical Branch tiZANidine 2019-11 Yes 2mg [...] 0-22 by mouth ity of 20:06: daily. [place] [address] Medical Branch DOCUSATE 2019-11 Yes 1{tbl} Take 1 Tab U nivers CALCIUM 0-22 by mouth ity of (STOOL 20:06: as needed [place] SOFTENER for Medical ORAL) Constipati Branch on. amLODIPine 2019-11 Yes 5mg Take 5 mg [facility] 5 mg tablet 0-22 by mouth ity of 20:06: daily. [address] Branch furosemide 2019-11 Yes 20mg Take 20 mg U nivers (LASIX) 40 0-22 by mouth ity o f mg tablet 20:06: daily. [place] [address] Medical Branch pantoprazol 2019-11 Yes 40mg Take 40 mg Univers e 0-22 by mouth ity of (PROTONIX) 20:06: daily. [place] 40 mg EC Medical tablet Branch citalopram 2019-11 Yes 20mg Take 20 mg U nivers (CELEXA) 20 0-22 by mouth ity of mg tablet 20:06: daily. [place] [address] Medical Branch rOPINIRole 2019-11 Yes 2mg Take 2 mg Un [facility] (REQUIP) 2 0-22 by mouth ity o f mg tablet 20:06: at [place] [address] bedtime. Medical Branch tiZANidine 2020-1 Yes 2mg [...] 0-22 by mouth ity of 20:06: daily. [place] [address] Medical Branch DOCUSATE 2019-11 Yes 1{tbl} Take 1 Tab U nivers CALCIUM 0-22 by mouth ity of (STOOL 20:06: as needed [place] SOFTENER for Medical ORAL) Constipati Branch on. amLODIPine 2019-11 Yes 5mg Take 5 mg Un [facility] 5 mg tablet 0-22 by mouth ity of 20:06: daily. [place] [address] Medical Branch furosemide 2019-11 Yes 20mg Take 20 mg U nivers (LASIX) 40 0-22 by mouth ity o f mg tablet 20:06: daily. [place] [address] Medical Branch pantoprazol 2019-11 Yes 40mg Take 40 mg Univers e 0-22 by mouth ity of (PROTONIX) 20:06: daily. [place] 40 mg [facility] Medical tablet Branch citalopram 2019-11 Yes 20mg Take 20 mg U nivers (CELEXA) 20 0-22 by mouth ity of mg tablet 20:06: daily. [place] [address] Medical Branch rOPINIRole 2019-11 Yes 2mg Take 2 mg Un [facility] (REQUIP) 2 0-22 by mouth ity o f mg tablet 20:06: at [place] [address] bedtime. Medical Branch tiZANidine 2019-11 Yes 2mg [...] 0-22 by mouth ity of 20:06: daily. [place] [address] Medical Branch DOCUSATE 2019-11 Yes 1{tbl} Take 1 Tab U nivers CALCIUM 0-22 by mouth ity of (STOOL 20:06: as needed [place] SOFTENER for Medical ORAL) Constipati Branch on. amLODIPine 2019-11 Yes 5mg Take 5 mg [facility] 5 mg tablet 0-22 by mouth ity of 20:06: daily. [place] [address] Medical Branch furosemide 2019-11 Yes 20mg Take 20 mg U nivers (LASIX) 40 0-22 by mouth ity o f mg tablet 20:06: daily. [place] [address] Medical Branch pantoprazol 2019-11 Yes 40mg Take 40 mg Univers e 0-22 by mouth ity of (PROTONIX) 20:06: daily. [place] [address] Medical tablet Branch citalopram 2019-11 Yes 20mg Take 20 mg U nivers (CELEXA) 20 0-22 by mouth ity of mg tablet 20:06: daily. [place] [address] Medical Branch rOPINIRole 2019-11 Yes 2mg Take 2 mg Un [facility] (REQUIP) 2 0-22 by mouth ity o f mg tablet 20:06: at [place] [address] bedtime. Medical Branch tiZANidine 2019-11 Yes 2mg [...] 0-22 by mouth ity of 20:06: daily. [place] [address] Medical Branch DOCUSATE 2019-11 Yes 1{tbl} Take 1 Tab U nivers CALCIUM 0-22 by mouth ity of (STOOL 20:06: as needed [place] SOFTENER for Medical ORAL) Constipati Branch on. amLODIPine 2019-11 Yes 5mg Take 5 mg [facility] 5 mg tablet 0-22 by mouth ity of 20:06: daily. [place] [address] Medical Branch furosemide 2019-11 Yes 20mg Take 20 mg U nivers (LASIX) 40 0-22 by mouth ity o f mg tablet 20:06: daily. [address] Branch pantoprazol 2019-11 Yes 40mg Take 40 mg Univers e 0-22 by mouth ity of (PROTONIX) 20:06: daily. [place] 40 mg [facility] Medical tablet Branch citalopram 2019-11 Yes 20mg Take 20 mg U nivers (CELEXA) 20 0-22 by mouth ity of mg tablet 20:06: daily. [place] [address] Medical Branch rOPINIRole 2019-11 Yes 2mg Take 2 mg [facility] (REQUIP) 2 0-22 by mouth ity o f mg tablet 20:06: at [place] [address] bedtime. Medical Branch tiZANidine 2019-11 Yes 2mg [...] 0-22 by mouth ity of 20:06: daily. [address] Branch DOCUSATE 2019-11 Yes 1{tbl} Take 1 Tab U nivers CALCIUM 0-22 by mouth ity of (STOOL 20:06: as needed [place] SOFTENER 52 for Medical ORAL) Constipati Branch on. amLODIPine 2019-11 Yes 5mg Take 5 mg [facility] 5 mg tablet 0-22 by mouth ity of 20:06: daily. [address] Branch clonazePAM 2019-11 Yes Univers 1 mg tablet 0-20 ity of 00:00: [place] [address] Medical Branch clonazePAM 2019-11 Yes Univers 1 mg tablet 0-20 ity of 00:00: [place] [address] Medical Branch clonazePAM 2019-11 Yes Univers 1 mg tablet 0-20 ity of 00:00: [address] Branch clonazePAM 2019-11 Yes Univers 1 mg tablet 0-20 ity of 00:00: [place] [address] Medical Branch clonazePAM 2019-11 Yes Univers 1 mg tablet 0-20 ity of 00:00: [address] Branch clonazePAM 2019-11 Yes Univers 1 mg tablet 0-20 ity of 00:00: [place] [facility] clonazePAM 2020- Yes Univers 1 mg tablet 0-20 ity of 00:: [place] [address] Medical Branch clonazePAM 2020- Yes Univers 1 mg tablet 0-20 ity of 00:: [place] [address] Medical Branch clonazePAM 2019- Yes Univers 1 mg tablet 0-20 ity of 00:: [place] [facility] clonazePAM 2020- Yes Univers 1 mg tablet 0-20 ity of 00:: [place] [facility] clonazePAM 2019- Yes Univers 1 mg tablet 0-20 ity of 00:: [place] [facility] clonazePAM 2019- Yes Univers 1 mg tablet 0-20 ity of 00:: [place] [address] Medical Branch clonazePAM 2019- Yes Univers 1 mg tablet 0-20 ity of :: [place] [address] Medical Branch clonazePAM 2019- Yes Univers 1 mg tablet 0-20 ity of 00:: [place] [address] Medical Branch clonazePAM 2019- Yes Univers 1 mg tablet 0-20 ity of :: [place] [facility] clonazePAM 2019- Yes Univers 1 mg tablet 0-20 ity of 00:: [place] [facility] clonazePAM 2019- Yes Univers 1 mg tablet 0-20 ity of 00:: [place] [address] Medical Branch clonazePAM 2020- Yes Univers 1 mg tablet 0-20 ity of 00:: [address] Branch clonazePAM 2020- Yes Univers 1 mg tablet 0-20 ity of 00:: [address] Branch clonazePAM 2019- Yes Univers 1 mg tablet 0-20 ity of :: [place] [address] Medical Branch clonazePAM 2020- Yes Univers 1 mg tablet 0-20 ity of 00:00: [address] Branch indomethaci 2020- No 50mg Q.5D [...] muscle spasms for up to 30 days. [facility] 24 2019-0 Yes Univers mcg capsule 9-14 ity of 00:00: [place] [facility] 24 2019-0 Yes Univers mcg capsule 9-14 ity [facility] 00:[facility]: [place] [facility] Univers mcg capsule 9-14 ity of 00:00: [place] [facility] Univers mcg capsule 9-14 ity of 00:00: [place] [facility] Univers mcg capsule 9-14 ity of 00:00: [place] [facility] Yes Univers mcg capsule 9-14 ity of 00:00: [place] [facility] Univers mcg capsule 9-14 ity of 00:00: [place] [facility] Yes Univers mcg capsule 9-14 ity of 00:00: [place] [facility] 24 2019-0 Yes Univers mcg capsule 9-14 ity of 00:00: [place] [facility] 24 2019-0 Yes Univers mcg capsule 9-14 ity of 00:00: [place] [address] [facility] 24 2019-0 Yes Univers mcg capsule 9-14 ity of 00:00: [place] [facility] 24 2019-0 Yes Univers mcg capsule 9-14 ity of 00:00: [place] [address] [facility] 24 2020-0 Yes Univers mcg capsule 9-14 ity of 00:00: [place] [address] [facility] 24 2020-0 Yes Univers mcg capsule 9-14 ity of 00:00: [place] [facility] 2020-[facility] Yes Univers mcg capsule 9-14 ity of 00:00: [place] 00 [facility] 24 2020-0 Yes Univers mcg capsule 9-14 ity of 00:00: [place] 00 [facility] 24 2020-0 Yes Univers mcg capsule 9-14 ity of 00:00: [place] [facility] Univers mcg capsule 9-14 ity of 00:00: [place] 00 [facility] 24 2020-0 Yes Univers mcg capsule 9-14 ity of 00:00: [place] [facility] 2020-0 Yes Univers mcg capsule 9-14 ity of 00:00: [place] [facility] AMITIZA 24 2019-0 Yes Univers mcg capsule 9-14 ity of 00:00: [place] [facility] methocarbam 2020- No 500mg Q.25D Take 1 M ethodi oL 8- 02-[address] (Robaxin) 00:00: 00:00 (500 mg [facility] 500 MG 00 :00 total) by l tablet mouth 4 (four) times a day as needed for muscle spasms. TRINTELLIX 0 Yes Univers 20 mg Tab 8-12 ity of 00:00: [place] [facility] TRINTELLIX 2019-0 Yes Univers 20 mg Tab 8-12 ity of 00:00: [place] [facility] TRINTELLIX 2019-0 Yes Univers 20 mg Tab 8-12 ity of 00:00: [place] [facility] TRINTELLIX 2019-0 Yes Univers 20 mg Tab 8-12 ity of 00:00: [place] [facility] TRINTELLIX 2019-0 Yes Univers 20 mg Tab 8-12 ity of 00:00: [place] [facility] TRINTELLIX 2019-0 Yes Univers 20 mg Tab 8-12 ity of 00:00: [place] [facility] TRINTELLIX 2019-0 Yes Univers 20 mg Tab 8-12 ity of 00:00: [place] [facility] TRINTELLIX 2019-0 Yes Univers 20 mg Tab 8-12 ity of 00:00: [place] [facility] TRINTELLIX 2019-0 Yes Univers 20 mg Tab 8-12 ity of 00:00: [place] [facility] TRINTELLIX 2019-0 Yes Univers 20 mg Tab 8-12 ity of 00:00: [place] [facility] TRINTELLIX 2019-0 Yes Univers 20 mg Tab 8-12 ity of 00:00: [place] [facility] TRINTELLIX 2019-0 2020- No Univer s 20 mg Tab 8-12 05-25 ity of 00:00: 00:00 [place] 00 :00 Medical Branch atorvastati 2018-11 Yes 20mg Take 20 mg Univers n 20 mg 0-10 by mouth. ity of tablet 00:00: [place] [facility] atorvastati 2018-11 Yes 20mg Take 20 mg Univers n 20 mg 0-10 by mouth. ity of tablet 00:00: [facility] 2018-11 Yes 20mg Take 20 mg Univers n 20 mg 0-10 by mouth. ity of tablet 00:00: [facility] Yes 20mg Take 20 mg Univers n 20 mg 0-10 by mouth. ity of tablet 00:00: [facility]11 Yes 20mg Take 20 mg Univers n 20 mg 0-10 by mouth. ity of tablet 00:00: [facility]11 Yes 20mg Take 20 mg Univers n 20 mg 0-10 by mouth. ity of tablet 00:00: [place] [facility] 2018-11 Yes 20mg Take 20 mg Univers n 20 mg 0-10 by mouth. ity of tablet 00:00: [facility] 2018-11 Yes 20mg Take 20 mg Univers n 20 mg 0-10 by mouth. ity of tablet 00:00: [place] [facility] 2018-11 Yes 20mg Take 20 mg Univers n 20 mg 0-10 by mouth. ity of tablet 00:00: [facility] 2018-11 Yes 20mg Take 20 mg Univers n 20 mg 0-10 by mouth. ity of tablet 00:00: [place] [facility][1]ta 2018-11 Yes 20mg Take 20 mg Univers n 20 mg 0-10 by mouth. ity of tablet 00:00: [place] [facility] 2018-11 Yes 20mg Take 20 mg Univers n 20 mg 0-10 by mouth. ity of tablet 00:00: [place] [facility]11 Yes 20mg Take 20 mg Univers n 20 mg 0-10 by mouth. ity of tablet 00:00: [place] [facility] 2018-11 Yes 20mg Take 20 mg Univers n 20 mg 0-10 by mouth. ity of tablet 00:00: [place] [facility] 2018-11 Yes 20mg Take 20 mg Univers n 20 mg 0-10 by mouth. ity of tablet 00:00: [place] [facility] 2018-11 Yes 20mg Take 20 mg [...] 0-10 by mouth. ity of tablet 00:00: [place] [facility] amLODIPine 2017-0 Yes 5mg Take 5 mg Un christie 5 mg tablet 5-08 by mouth ity of 14:50: daily. [address] HYDROcodone 2018-0 Yes 1{tbl} Take 1 Un christie -acetaminop 5-08 tablet by ity of hen (SuccessTSM) 14:50: mouth [place] 7.5-325 mg 10 every 6 Medica l per tablet (six) Branch hours as needed for Pain. HYDROcodone 2018-0 Yes 1{tbl} Take 1 Un christie -acetaminop 5-08 tablet by ity of hen (SuccessTSM) 14:50: mouth [place] 7.5-325 mg 10 every 6 Medica l per tablet (six) Branch hours as needed for Pain. HYDROcodone 2018-0 Yes 1{tbl} Take 1 Un [facility] -acetaminop 5-08 tablet by ity of hen (SuccessTSM) 14:50: mouth [place] 7.5-325 mg 10 every 6 Medica l per tablet (six) Branch hours as needed for Pain. HYDROcodone 2018-0 Yes 1{tbl} Take 1 Un [place] -acetaminop 5-08 tablet by ity of hen (SuccessTSM) 14:50: mouth [place] 7.5-325 mg 10 every 6 Medica l per tablet (six) Branch hours as needed for Pain. HYDROcodone 2018-0 Yes 1{tbl} Take 1 Un [place] -acetaminop 5-08 tablet by ity of hen (SuccessTSM) 14:50: mouth [place] 7.5-325 mg 10 every 6 Medica l per tablet (six) Branch hours as needed for Pain. HYDROcodone 2018-0 Yes 1{tbl} Take 1 Un [place] -acetaminop 5-08 tablet by ity of hen (SuccessTSM) 14:50: mouth [place] 7.5-325 mg 10 every 6 Medica l per tablet (six) Branch hours as needed for Pain. HYDROcodone 2018-0 Yes 1{tbl} Take 1 Un [place] -acetaminop 5-08 tablet by ity of [place] (SuccessTSM) 14:50: mouth [place] 7.5-325 mg 10 every 6 Medica l per tablet (six) Branch hours as needed for Pain. HYDROcodone 2018-0 Yes 1{tbl} Take 1 Un [place] -acetaminop 5-08 tablet by ity of [place] (SuccessTSM) 14:50: mouth [place] 7.5-325 mg 10 every 6 Medica l per tablet (six) Branch hours as needed for Pain. HYDROcodone 2018-0 Yes 1{tbl} Take 1 Un [place] -acetaminop 5-08 tablet by ity [place] (SuccessTSM) 14:50: mouth [place] 7.5-325 mg 10 every 6 Medica l per tablet (six) Branch hours as needed for Pain. HYDROcodone 2018-0 Yes 1{tbl} Take 1 Un [facility] -acetaminop 5-08 tablet by ity [place] (SuccessTSM) 14:50: mouth [place] 7.5-325 mg 10 every 6 Medica l per tablet (six) Branch hours as needed for Pain. HYDROcodone 2018-0 Yes 1{tbl} Take 1 Un [place] -acetaminop 5-08 tablet by ity of hen (SuccessTSM) 14:50: mouth [place] 7.5-325 mg 10 every 6 Medica l per tablet (six) Branch hours as needed for Pain. HYDROcodone 2018-0 Yes 1{tbl} Take 1 Un [place] -acetaminop 5-08 tablet by ity of hen (SuccessTSM) 14:50: mouth [place] 7.5-325 mg 10 every 6 Medica l per tablet (six) Branch hours as needed for Pain. HYDROcodone 2018-0 Yes 1{tbl} Take 1 Un christie -acetaminop 5-08 tablet by ity of hen (SuccessTSM) 14:50: mouth [place] 7.5-325 mg 10 every [...] 5-08 by mouth ity of 14:49: daily. [place] [facility] Branch lisinopril 2017- Yes Take by Uni vers (PRINIVIL,Z 5-08 mouth ity of ESTRIL) 40 14:49: daily. [place] mg tablet 02 [facility] multivitami Yes 1{tbl} Take 1 Tab Univers n tablet 5-08 by mouth ity of 14:49: daily. [place] [facility] Branch lisinopril Yes Take by Uni vers (PRINIVIL,Z 5-08 mouth ity of ESTRIL) 40 14:49: daily. [place] mg tablet 02 [facility] multivitami Yes 1{tbl} Take 1 Tab Univers n tablet 5-08 by mouth ity of 14:49: daily. [place] [facility] Branch lisinopril Yes Take by Uni vers (PRINIVIL,Z 5-08 mouth ity of ESTRIL) 40 14:49: daily. [place] mg tablet 02 [facility] Branch multivitami Yes 1{tbl} Take 1 Tab Univers n tablet 5-08 by mouth ity of 14:49: daily. [place] [facility] Branch lisinopril Yes Take by Uni vers (PRINIVIL,Z 5-08 mouth ity of ESTRIL) 40 14:49: daily. [place] mg tablet 02 [facility] Branch multivitami Yes 1{tbl} Take 1 Tab Univers n tablet 5-08 by mouth ity of 14:49: daily. [place] [facility] Branch lisinopril Yes Take by Uni vers (PRINIVIL,Z 5-08 mouth ity of ESTRIL) 40 14:49: daily. [place] mg tablet 02 [facility] multivitami 0 Yes 1{tbl} Take 1 Tab [...] 5-08 by mouth ity of 14:49: daily. [place] [facility] lisinopril Yes Take by Uni vers (PRINIVIL,Z 5-08 mouth ity of ESTRIL) 40 14:49: daily. [place] mg tablet Medical Branch furosemide Yes 20mg Take 20 mg U nivers (LASIX) 40 5-08 by mouth ity o f mg tablet 14:49: daily. [address] Branch pantoprazol Yes 40mg Take 40 mg Univers e 5-08 by mouth ity of (PROTONIX) 14:49: daily. [place] 40 mg [facility] Branch citalopram Yes 20mg Take 20 mg U nivers (CELEXA) 20 5-08 by mouth ity of mg tablet 14:49: daily. [address] Branch traZODONE Yes 50mg Take 50 mg Un [facility] (DESYREL) 5-08 by mouth ity of 50 mg 14:49: at [facility] 02 bedtime. Medical Branch rOPINIRole Yes 2mg Take 2 mg Un [facility] (REQUIP) 2 5-08 by mouth ity o f mg tablet 14:49: at [place] 02 bedtime. Medical Branch tiZANidine Yes 2mg [...] 5-08 by mouth ity of 14:49: daily. [address] Branch BIOTIN ORAL 0 Yes 1{tbl} Take 1 Tab Univers 5-08 by mouth ity of 14:49: daily. [address] Branch levothyroxi Yes [id number] TAKE 1 Univers ne 25 mcg 5-08 TABLET BY ity o f tablet 00:00: MOUTH IN [place] THE Medical MORNING Branch levothyroxi 0 Yes [id number] TAKE 1 Univers ne 25 mcg 5-08 TABLET BY ity o f tablet 00:00: MOUTH IN [place] 00 THE Medical MORNING Branch levothyroxi 2018-0 Yes [id number] TAKE 1 Univers ne 25 mcg 5-08 TABLET BY ity o f tablet 00:00: MOUTH IN [place] 00 THE Medical MORNING Branch levothyroxi 2018-0 Yes [id number] TAKE 1 Univers ne 25 mcg 5-08 TABLET BY ity o f tablet 00:00: MOUTH IN [place] 00 THE Medical MORNING Branch levothyroxi 2018-0 Yes [id number] TAKE 1 Univers ne 25 mcg 5-08 TABLET BY ity o f tablet 00:00: MOUTH IN [place] 00 THE Medical MORNING Branch levothyroxi 2018-0 Yes [id number] TAKE 1 Univers ne 25 mcg 5-08 TABLET BY ity o f tablet 00:00: MOUTH IN [place] 00 THE Medical MORNING Branch levothyroxi 2018-0 Yes [id number] TAKE 1 Univers ne 25 mcg 5-08 TABLET BY ity o f tablet 00:00: MOUTH IN [place] 00 THE Medical MORNING Branch levothyroxi 2018-0 Yes [id number] TAKE 1 Univers ne 25 mcg 5-08 TABLET BY ity o f tablet 00:00: MOUTH IN [place] 00 THE Medical MORNING Branch levothyroxi 2018-0 Yes [id number] TAKE 1 Univers ne 25 mcg 5-08 TABLET BY ity o f tablet 00:00: MOUTH IN [place] 00 THE Medical MORNING Branch levothyroxi 2018-0 Yes [id number] TAKE 1 Univers ne 25 mcg 5-08 TABLET BY ity o f tablet 00:00: MOUTH IN [place] 00 THE Medical MORNING Branch levothyroxi 2018-0 Yes [id number] TAKE 1 Univers ne 25 mcg 5-08 TABLET BY ity o f tablet 00:00: MOUTH IN [place] 00 THE Medical MORNING Branch levothyroxi 2018-0 Yes [id number] TAKE 1 Univers ne 25 mcg 5-08 TABLET BY ity o f tablet 00:00: MOUTH IN [place] 00 THE Medical MORNING Branch levothyroxi 2018-0 Yes [id number] TAKE 1 Univers ne 25 mcg 5-08 TABLET BY ity o f tablet 00:00: MOUTH IN [place] 00 THE Medical MORNING Branch levothyroxi 2018-0 Yes [id number] TAKE 1 Univers ne 25 mcg 5-08 TABLET BY ity o f tablet 00:00: MOUTH IN [place] 00 THE Medical MORNING Branch levothyroxi 2018-0 Yes [id number] TAKE 1 Univers ne 25 mcg 5-08 TABLET BY ity o f tablet 00:00: MOUTH IN [place] 00 THE Medical MORNING Branch levothyroxi 2018-0 Yes [id number] TAKE 1 Univers ne 25 mcg 5-08 TABLET BY ity o f tablet 00:00: MOUTH IN [place] 00 THE Medical MORNING Branch levothyroxi 2018-0 Yes [id number] TAKE 1 Univers ne 25 mcg 5-08 TABLET BY ity o f tablet 00:00: MOUTH IN [place] 00 THE Medical MORNING Branch levothyroxi 2018-0 Yes [id number] TAKE 1 Univers ne 25 mcg 5-08 TABLET BY ity o f tablet 00:00: MOUTH IN [place] 00 THE Medical MORNING Branch levothyroxi 2017-0 Yes [id number] TAKE 1 Univers ne 25 mcg 5-08 TABLET BY ity o f tablet 00:00: MOUTH IN [place] 00 THE Medical MORNING Branch levothyroxi 2017-0 Yes [id number] TAKE 1 Univers ne 25 mcg 5-08 TABLET BY ity o f tablet 00:00: MOUTH IN [place] 00 THE Medical MORNING Branch levothyroxi 2017-0 Yes [id number] TAKE 1 Univers ne 25 mcg 5-08 TABLET BY ity o f tablet 00:00: MOUTH IN [place] 00 THE Medical MORNING Branch levothyroxi 2017-0 Yes [id number] TAKE 1 Univers ne 25 mcg 5-08 TABLET BY ity o f tablet 00:00: MOUTH IN [place] 00 THE Medical MORNING Branch levothyroxi 2017-0 Yes [id number] TAKE 1 Univers ne 25 mcg 5-08 TABLET BY ity o f tablet 00:00: MOUTH IN [place] 00 THE Medical MORNING Branch metoprolol Yes [...] by mouth ity of tablet 18:23: daily. [facility] Yes Take by Un christie en 08-04 mouth ity of (TYLENOL) 18:23: every 6 [place] 325 mg 06 (six) Medical tablet hours as Branch needed for Pain (scale 1-3). aspirin 81 0 Yes 81mg Take 81 mg U nivers mg EC 9-26 by mouth ity of tablet 18:23: daily. [facility] Yes Take by Un christie en 08-04 mouth ity of (TYLENOL) 18:23: every 6 [place] 325 mg 06 (six) Medical tablet hours as Branch needed for Pain (scale 1-3). aspirin 81 Yes 81mg Take 81 mg U nivers mg EC 9-26 by mouth ity of tablet 18:23: daily. [facility] Yes Take by Un christie en 08-04 mouth ity of (TYLENOL) 18:23: every 6 [place] 325 mg 06 (six) Medical tablet hours as Branch needed for Pain (scale 1-3). aspirin 81 Yes 81mg Take 81 mg U nivers mg EC 9-26 by mouth ity of tablet 18:23: daily. [facility] Yes Take by Un christie en 08-04 mouth ity of (TYLENOL) 18:23: every 6 [place] 325 mg 06 (six) Medical tablet hours as Branch needed for Pain (scale 1-3). aspirin 81 2015-0 Yes 81mg Take 81 mg U nivers mg EC 9-26 by mouth ity of tablet 18:23: daily. [facility] Yes Take by Un christie en 08-04 mouth ity of (TYLENOL) 18:23: every 6 [place] 325 mg 06 (six) Medical tablet hours as Branch needed for Pain (scale 1-3). aspirin 81 2015-0 Yes 81mg Take 81 mg U nivers mg EC 9-26 by mouth ity of tablet 18:23: daily. [facility] acetaminoph Yes Take by Un christie en 08-04 mouth ity of (TYLENOL) 18:23: every 6 [place] 325 mg 06 (six) Medical tablet hours as Branch needed for Pain (scale 1-3). aspirin 81 2015-0 Yes 81mg Take 81 mg U nivers mg EC 9-26 by mouth ity of tablet 18:23: daily. [facility] acetaminoph Yes Take by Un christie en 08-04 mouth ity of (TYLENOL) 18:23: every 6 [place] 325 mg 06 (six) Medical tablet hours as Branch needed for Pain (scale 1-3). aspirin 81 Yes 81mg Take 81 mg U nivers mg EC 9-26 by mouth ity of tablet 18:23: daily. [facility] acetamino Yes Take by Un christie en 08-04 mouth ity of (TYLENOL) 18:23: every 6 [place] 325 mg 06 (six) Medical tablet hours as Branch needed for Pain (scale 1-3). aspirin 81 Yes 81mg Take 81 mg U nivers mg EC 9-26 by mouth ity of tablet 18:23: daily. [facility] acetaminoph Yes Take by Un christie en 08-04 mouth ity of (TYLENOL) 18:23: every 6 [place] 325 mg 06 (six) Medical tablet hours as Branch needed for Pain (scale 1-3). aspirin 81 0 Yes 81mg Take 81 mg U nivers mg EC 9-26 by mouth ity of tablet 18:23: daily. [facility] acetaminoph Yes Take by Un christie en 08-04 mouth ity of (TYLENOL) 18:23: every 6 [place] 325 mg 06 (six) Medical tablet hours as Branch needed for Pain (scale 1-3). aspirin 81 2015-0 Yes 81mg Take 81 mg U nivers mg EC 9-26 by mouth ity of tablet 18:23: daily. [facility] acetaminoph Yes Take by Un christie en 08-04 mouth ity of (TYLENOL) 18:23: every 6 [place] 325 mg 06 (six) Medical tablet hours as Branch needed for Pain (scale 1-3). aspirin 81 Yes 81mg Take 81 mg U nivers mg EC 08-04 by mouth ity of tablet 18:23: daily. [place] [address] Medical Branch meloxicam Yes TAKE 1 Univer [...] Medical MORNING Branch AFTER BREAKFAST proMETHazin Yes [id number] 25mg Take 1 Tab Univers e 4-01 by mouth ity of (PHENERGAN) 00:00: every 6 [place] 25 mg 00 (six) Medical tablet hours as Branch needed for Nausea and Vomiting (N/V). proMETHazin Yes [id number] 25mg Take 1 Tab Univers e 4-01 by mouth ity of (PHENERGAN) 00:00: every 6 [place] as 25 mg 00 (six) Medical tablet hours as Branch needed for Nausea and Vomiting (N/V). proMETHazin Yes [id number] 25mg Take 1 Tab Univers e 4-01 by mouth ity of (PHENERGAN) 00:00: every 6 [place] as 25 mg 00 (six) Medical tablet hours as Branch needed for Nausea and Vomiting (N/V). proMETHazin Yes [id number] 25mg Take 1 Tab Univers e 4-01 by mouth ity of (PHENERGAN) 00:00: every 6 [place] as 25 mg 00 (six) Medical tablet hours as Branch needed for Nausea and Vomiting (N/V). proMETHazin Yes [id number] 25mg Take 1 Tab Univers e 4-01 by mouth ity of (PHENERGAN) 00:00: every 6 [place] as 25 mg 00 (six) Medical tablet hours as Branch needed for Nausea and Vomiting (N/V). proMETHazin Yes [id number] 25mg Take 1 Tab Univers e 4-01 by mouth ity of (PHENERGAN) 00:00: every 6 [place] as 25 mg 00 (six) Medical tablet hours as Branch needed for Nausea and Vomiting (N/V). proMETHazin Yes [id number] 25mg Take 1 Tab Univers e 4-01 by mouth ity of (PHENERGAN) 00:00: every 6 [place] as 25 mg 00 (six) Medical tablet hours as Branch needed for Nausea and Vomiting (N/V). proMETHazin Yes [id number] 25mg Take 1 Tab Univers e 4-01 by mouth ity of (PHENERGAN) 00:00: every 6 [place] as 25 mg 00 (six) Medical tablet hours as Branch needed for Nausea and Vomiting (N/V). proMETHazin Yes [id number] 25mg Take 1 Tab Univers e 4-01 by mouth ity of (PHENERGAN) 00:00: every 6 [place] as 25 mg 00 (six) Medical tablet hours as Branch needed for Nausea and Vomiting (N/V). proMETHazin Yes [id number] 25mg Take 1 Tab Univers e 4-01 by mouth ity of (PHENERGAN) 00:00: every 6 [place] as 25 mg 00 (six) Medical tablet hours as Branch needed for Nausea and Vomiting (N/V). proMETHazin Yes [id number] 25mg Take 1 Tab Univers e 4-01 by mouth ity of (PHENERGAN) 00:00: every 6 [place] as 25 mg 00 (six) Medical tablet hours as Branch needed for Nausea and Vomiting (N/V). proMETHazin Yes [id number] 25mg Take 1 Tab Univers e 4-01 by mouth ity of (PHENERGAN) 00:00: every 6 [place] as 25 mg 00 (six) Medical tablet hours as Branch needed for Nausea and Vomiting (N/V). proMETHazin Yes [id number] 25mg Take 1 Tab Univers e 4-01 by mouth ity of (PHENERGAN) 00:00: every 6 [place] as 25 mg 00 (six) Medical tablet hours as Branch needed for Nausea and Vomiting (N/V). proMETHazin Yes [id number] 25mg Take 1 Tab Univers e 4-01 by mouth ity of (PHENERGAN) 00:00: every 6 [place] as 25 mg 00 (six) Medical tablet hours as Branch needed for Nausea and Vomiting (N/V). proMETHazin 2015- Yes [id number] 25mg Take 1 Tab Univers e 4-01 by mouth ity of (PHENERGAN) 00:00: every 6 [place] as 25 mg 00 (six) Medical tablet hours as Branch needed for Nausea and Vomiting (N/V). proMETHazin Yes [id number] 25mg Take 1 Tab Univers e 4-01 by mouth ity of (PHENERGAN) 00:00: every 6 [place] as 25 mg 00 (six) Medical tablet hours as Branch needed for Nausea and Vomiting (N/V). proMETHazin Yes [id number] 25mg Take 1 Tab Univers e 4-01 by mouth ity of (PHENERGAN) 00:00: every 6 [place] as 25 mg 00 (six) Medical tablet hours as Branch needed for Nausea and Vomiting (N/V). proMETHazin Yes [id number] 25mg Take 1 Tab Univers e 4-01 by mouth ity of (PHENERGAN) 00:00: every 6 [place] as 25 mg 00 (six) Medical tablet hours as Branch needed for Nausea and Vomiting (N/V). proMETHazin Yes [id number] 25mg Take 1 Tab Univers e 4-01 by mouth ity of (PHENERGAN) 00:00: every 6 [place] as 25 mg 00 (six) Medical tablet hours as Branch needed for Nausea and Vomiting (N/V). proMETHazin Yes [id number] 25mg Take 1 Tab Univers e 4-01 by mouth ity of (PHENERGAN) 00:00: every 6 [place] as 25 mg 00 (six) Medical tablet hours as Branch needed for Nausea and Vomiting (N/V). proMETHazin Yes [id number] 25mg Take 1 Tab Univers e 4-01 by mouth ity of (PHENERGAN) 00:00: every 6 [place] as 25 mg 00 (six) Medical tablet hours as Branch needed for Nausea and Vomiting (N/V). proMETHazin Yes [id number] 25mg Take 1 Tab Univers e 4-01 by mouth ity of (PHENERGAN) 00:00: every 6 [place] as 25 mg 00 (six) Medical tablet hours as Branch needed for Nausea and Vomiting (N/V). proMETHazin Yes [id number] 25mg Take 1 Tab Univers e 4-01 [...] Immunizations Ordered Filled Immunization Date Status Comments [facility] e Immunization Name Name Pneumococcal 2020-09-12 Completed [...] 2020-09-12 Completed University o f Polysaccharide, 00:00:00 [place] [facility] ical PPSV23 (PNEUMOVAX) Branch Influenza Virus 2019-08-18 Completed Universit y of Vaccine Quad IM 00:00:00 [place] [facility] Multi-dose 6+ MO Branch Zoster(Zostavax)( 2019-08-18 Completed Unive rsity of dayne) 00:00:00 [facility] Influenza Virus 2019-08-18 Completed Universit y of Vaccine Quad IM 00:00:00 [place] [facility] Multi-dose 6+ MO Branch Zoster(Zostavax)( 2019-08-18 Completed Unive rsity of dayne) 00:00:00 [facility] Influenza Virus 2019-08-18 Completed Universit y of Vaccine Quad IM 00:00:00 [place] [facility] ical Multi-dose 6+ MO Branch Zoster(Zostavax)( 2019-08-18 Completed Unive rsity of dayne) 00:00:00 [facility] Influenza Virus 2019-08-18 Completed Universit y of Vaccine Quad IM 00:00:00 [place] [facility] ical Multi-dose 6+ MO Branch Zoster(Zostavax)( 2019-08-18 Completed Unive rsity of dayne) 00:00:00 [facility] Influenza Virus 2019-08-18 Completed Universit y of Vaccine Quad IM 00:00:00 [place] [facility] Multi-dose 6+ MO Branch Zoster(Zostavax)( 2019-08-18 Completed Unive rsity of dayne) 00:00:00 [facility] Influenza Virus 2019-08-18 Completed Universit y of Vaccine Quad IM 00:00:00 [place] [facility] ical Multi-dose 6+ MO Branch Zoster(Zostavax)( 2019-08-18 Completed Unive rsity of dayne) 00:00:00 [facility] Influenza Virus 2019-08-18 Completed Universit y of Vaccine Quad IM 00:00:00 [place] [facility] ical Multi-dose 6+ MO Branch Zoster(Zostavax)( 2019-08-18 Completed Unive rsity of ingles) 00:00:00 [facility] Influenza Virus 2019-08-18 Completed Universit y of Vaccine Quad IM 00:00:00 [place] [facility] ical Multi-dose 6+ MO Branch Zoster(Zostavax)( 2019-08-18 Completed Unive rsity of ingles) 00:00:00 [facility] Influenza Virus 2019-08-18 Completed Universit y of Vaccine Quad IM 00:00:00 [place] [facility] ical Multi-dose 6+ MO Branch Zoster(Zostavax)( 2019-08-18 Completed Unive rsity of ingles) 00:00:00 [facility] Influenza Virus 2019-08-18 Completed Universit y of Vaccine Quad IM 00:00:00 [place] [facility] ical Multi-dose 6+ MO Branch Zoster(Zostavax)( 2019-08-18 Completed Unive rsity of ingles) 00:00:00 [facility] Influenza Virus 2019-08-18 Completed Universit y of Vaccine Quad IM 00:00:00 [place] [facility] Multi-dose 6+ MO Branch Zoster(Zostavax)( 2019-08-18 Completed Unive rsity of ingles) 00:00:00 [facility] Influenza Virus 2019-08-18 Completed Universit y of Vaccine Quad IM 00:00:00 [place] [facility] ical Multi-dose 6+ MO Branch Zoster(Zostavax)( 2019-08-18 Completed Unive rsity of ingles) 00:00:00 [facility] Influenza Virus 2019-08-18 Completed Universit y of Vaccine Quad IM 00:00:00 [place] [facility] Zoster(Zostavax)( 2019-08-18 Completed Unive rsity of ingles) 00:00: [facility] Influenza Virus 2019-08-18 Completed Universit y of Vaccine Quad IM 00:00:00 [place] [facility] Zoster(Zostavax)( 2019-08-18 Completed Unive rsity of ingles) 00:00:00 [facility] Influenza Virus 2019-08-18 Completed Universit y of Vaccine [facility] IM 00:00:00 [place] [facility] Zoster(Zostavax)( 2019-08-18 Completed Unive rsity of ingles) 00:00:00 [facility] Influenza Virus 2019-08-18 Completed Universit y of Vaccine Quad IM 00:00:00 [facility] ical Multi-dose 6+ MO Branch Zoster(Zostavax)( 2019-08-18 Completed Unive rsity of ingles) 00:00:00 [facility] Zoster(Zostavax)( 2019-05-02 Completed Unive rsity of ingles) 00:00:00 [facility] Zoster(Zostavax)( 2019-05-02 Completed Unive rsity of ingles) 00:00:00 [facility] Zoster(Zostavax)( 2019-05-02 Completed Unive rsity of ingles) 00:00:00 [facility] Zoster(Zostavax)( 2019-05-02 Completed Unive rsity of ingles) 00:00:00 [facility] Zoster(Zostavax)( 2019-05-02 Completed Unive rsity of ingles) 00:00:00 [facility] Zoster(Zostavax)( 2019-05-02 Completed Unive rsity of ingles) 00:00:00 [facility] Zoster(Zostavax)( 2019-05-02 Completed Unive rsity of ingles) 00:00:00 [facility] Zoster(Zostavax)( 2019-05-02 Completed Unive rsity of ingles) 00:00:00 [facility] Zoster(Zostavax)( 2019-05-02 Completed Unive rsity of ingles) 00:00:00 [facility] Zoster(Zostavax)( 2019-05-02 Completed Unive rsity of ingles) 00:00:00 [facility] Zoster(Zostavax)( 2019-05-02 Completed Unive rsity of ingles) 00:00:00 [facility] Zoster(Zostavax)( 2019-05-02 Completed Unive rsity of ingles) 00:00:00 [facility] Zoster(Zostavax)( 2019-05-02 Completed Unive rsity of ingles) 00:00:00 [facility] Zoster(Zostavax)( 2019-05-02 Completed Unive rsity of ingles) 00:00:00 [facility] Zoster(Zostavax)( 2019-05-02 Completed Unive rsity of ingles) 00:00:00 [facility] Zoster(Zostavax)( 2019-05-02 Completed Unive rsity of ingles) 00:00:00 [facility] Influenza Virus 2016-08-04 Completed Universit y of Vaccine Quad IM 3+ 00:00:00 [facility] Influenza Virus 2016-08-04 Completed Universit y of Vaccine [facility] IM 3+ 00:00:00 [facility] Influenza Virus 2016-08-04 Completed Universit y of Vaccine [facility] IM 3+ 00:00:00 [facility] Influenza Virus 2016-08-04 Completed Universit y of Vaccine [facility] IM 3+ 00:00:00 [facility] Influenza Virus 2016-08-04 Completed Universit y of Vaccine [facility] IM 3+ 00:00:00 [facility] Influenza Virus 2016-08-04 Completed Universit y of Vaccine [facility] IM 3+ 00:00:00 [facility] Influenza Virus 2016-08-04 Completed Universit y of Vaccine [facility] IM 3+ 00:00:00 [facility] Influenza Virus 2016-08-04 Completed Universit y of Vaccine [facility] IM 3+ 00:00:00 [facility] Influenza Virus 2016-08-04 Completed Universit y of Vaccine [facility] IM 3+ 00:00:00 [facility] Influenza Virus 2016-08-04 Completed Universit y of Vaccine [facility] IM 3+ 00:00:00 [facility] Influenza Virus 2016-08-04 Completed Universit y of Vaccine [facility] IM 3+ 00:00:00 [facility] Influenza Virus 2016-08-04 Completed Universit y of Vaccine [facility] IM 3+ 00:00:00 [facility] Influenza Virus 2016-08-04 Completed Universit y of Vaccine [facility] IM 3+ 00:00:00 [facility] Influenza Virus 2016-08-04 Completed Universit y of Vaccine [facility] IM 3+ 00:00:00 [facility] Influenza Virus 2016-08-04 Completed Universit y of Vaccine [facility] IM 3+ 00:00:00 [facility] Influenza Virus 2016-08-04 Completed Universit y of Vaccine [facility] IM 3+ 00:00:00 [facility] Influenza Virus 2016-08-04 Completed Universit y of Vaccine [facility] IM 3+ 00:00:00 [facility] Influenza Virus 2016-08-04 Completed Universit y of Vaccine [facility] IM 3+ 00:00:00 [facility] Influenza Virus 2016-08-04 Completed Universit y of Vaccine [facility] IM 3+ 00:00:00 [facility] Influenza Virus 2016-08-04 Completed Universit y of Vaccine [facility] IM 3+ 00:00:00 [facility] Influenza Virus 2016-08-04 Completed Universit y of Vaccine [facility] IM 3+ 00:00:00 [facility] Influenza Virus 2016-08-04 Completed Universit y of Vaccine [facility] IM 3+ 00:00:00 [facility] Influenza Virus 2016-08-04 Completed Universit y of Vaccine [facility] IM 3+ 00:00:00 [facility] Vital Signs Vital Name Observation Time Observation Value Comments Source Systolic blood 2021-05-31 21:42:00 145 mm[Hg] Univer sity of pressure [facility] Diastolic blood 2021-05-31 21:42:00 88 mm[Hg] Unive rsity of [facility] Heart rate 2021-05-31 21:41:00 69 /min [facility] Body height 2021-05-31 21:41:00 167.6 cm [facility] Body weight 2021-05-31 21:41:00 67.586 kg [facility] BMI 2021-05-31 21:41:00 24.05 kg/m2 [facility] Respiratory rate 2021-04-03 17:09:00 20 /min Univ ersity [facility] Oxygen saturation in 2021-04-03 17:09:00 94 /min [facility] Arterial blood by [facility] Pulse oximetry Branch Systolic blood 2021-04-03 16:32:00 133 mm[Hg] Univer sity of pressure [facility] Diastolic blood 2021-04-03 16:32:00 62 mm[Hg] Unive rsity of pressure [facility] Heart rate 2021-04-03 16:32:00 51 /min [facility] Body temperature 2021-04-03 16:32:00 36.89 Farnaz Univ ersity of [facility] Body height 2021-04-02 07:24:00 167.6 cm [facility] Body weight 2021-04-02 00:32:00 70.761 kg [facility] BMI 2021-04-02 00:32:00 25.18 kg/m2 Universi ty of [facility] Systolic blood 2021-03-04 20:21:00 123 mm[Hg] Univer sity of pressure [facility] Branch Diastolic blood 2021-03-04 20:21:00 74 mm[Hg] Unive rsity of pressure [facility] Heart rate 2021-03-04 20:21:00 69 /min Universi ty of [facility] Body height 2021-03-04 20:21:00 167.6 cm [facility] Body weight 2021-03-04 20:21:00 70.761 kg Universi ty of [facility] BMI 2021-03-04 20:21:00 25.18 kg/m2 Universi ty of [facility] Oxygen saturation in 2021-03-04 20:21:00 100 /min [facility] Arterial blood by [facility] Pulse oximetry Branch Systolic blood 2020-08-30 20:05:00 156 mm[Hg] Univer sity of pressure [facility] Branch Diastolic blood 2020-08-30 20:05:00 81 mm[Hg] Unive rsity of pressure [facility] Heart rate 2020-08-30 20:05:00 62 /min Universi ty of [facility] Body temperature 2020-08-30 20:05:00 36.67 Farnaz Univ ersity of [facility] Respiratory rate 2020-08-30 20:05:00 16 /min Univ ersity of [facility] Body height 2020-08-30 20:05:00 167.6 cm Universi ty of [facility] Body weight 2020-08-30 20:05:00 71.578 kg [facility] BMI 2020-08-30 20:05:00 25.47 kg/m2 Universi ty of [facility] Systolic blood 2021-08-02 15:28:00 166 mm[Hg] [facility] Di[facility] blood 2021-08-02 15:28:00 79 mm[Hg] [facility] pressure Heart rate 2021-08-02 15:28:00 57 /min [facility] Body temperature 2021-08-02 15:28:00 36.89 Farnaz [facility] Respiratory rate 2021-08-02 15:28:00 18 /min [facility] Oxygen saturation in 2021-08-02 15:28:00 98 /min [facility] Arterial blood by Pulse oximetry Body height 2020-12-13 14:13:00 170.2 cm [facility] Body weight 2020-12-13 14:13:00 72.774 kg [facility] BMI 2020-12-13 14:13:00 25.13 kg/m2 [facility] Procedures Procedure Date / Time Performing Source Performed Clinician REFERRAL- REQUEST/RESPONSE 2022-01-01 [facility] 06:[facility]00 [facility] PHYSICIAN ORDERS 2021-09-17 Doctor Unassigned, [facility] 06:01:00 [facility] XR SHOULDER 2+ VIEWS RIGHT 2021-08-26 Gerald Curran [place] He alth 15:52:14 MRI BRAIN WO CONTRAST 2021-08-09 Isabel Snow [place] [facility] 15:20:51 CELL COUNT AND DIFFERENTIAL, 2021-08-02 Tae Salazar [facility] BODY FLUID 21:32:00 NM BONE SCAN 3 PHASE 2021-08-02 [facility] 20:23:00 CT UPPER EXTREMITY WO RIGHT 2021-08-02 Tae Salazar [facility] 18:25:00 [place] RAD NEEDLE ASPIRATION 2021-08-02 Tae Salazar [facility] 16:51:02 JOINT FLUID CULTURE 2021-08-02 Tae Salazar H ospital 16:25:00 ANAEROBIC CULTURE 2021-08-02 Tae Salazar Hos pital 16:25:00 FUNGUS CULTURE 2021-08-02 Tae Salazar [facility] 16:25:00 AFB CULTURE 2021-08-02 Tae Salazar Hospi [facility] 16:25:00 FUNGUS SMEAR 2021-08-02 Tae Salazar [facility]pi [facility] 16:25:00 AFB STAIN 2021-08-02 Charles Tae Harris [facility] 16:25:00 REFERRAL- REQUEST/RESPONSE 2021-04-30 [facility] BASIC METABOLIC PANEL (NA, K, 2021-04-03 [facility] CL, CO2, GLUCOSE, BUN, 10:03:00 [facility] ran CREATININE, CA) ELECTROENCEPHALOGRAM 2021-04-03 Vicky [facility] 00:00:00 [facility] URINE CULTURE 2021-04-02 Haider Steven [facility] xas 03:50:00 [facility] TROPONIN I 2021-04-02 Haider [facility] xa 02:06:00 [facility] HEPATIC FUNCTION PANEL 2021-04-02 Haider Steven [facility] ([id number]) (ALB,T.PRO,BILI 02:06:00 [facility] T,BU/BC,ALT,AST,ALK PHOS) BASIC METABOLIC PANEL (NA, K, 2021-04-02 [facility] CL, CO2, GLUCOSE, BUN, 02:06:00 [facility] CREATININE, CA) ETHANOL 2021-04-02 Haider [facility] xa 02:06:00 [facility] N-TERMINAL PRO-BNP 2021-04-02 Hermila [facility] 02:06:00 [facility] COVID-19 (ID NOW RAPID 2021-04-02 Haider [facility] TESTING) 02:06:[address] [facility] [address] HEAD WO CONTRAST 2021-04-02 Steven Maloney [facility] 01:42:34 [facility] XR CHEST 1 VW 2021-04-02 Haider [facility] xas 01:20:37 [facility] AC PANEL 20 + LACTIC ACID 2021-04-02 Steven Maloney [facility] 01:13:00 [facility] URINE DRUG (IMMUNOASSAY) - 2021-04-02 Steven Maloney [facility] COMPREHENSIVE DRUG SCREEN 01:12:00 [facility] CBC WITH DIFF 2021-04-02 Haider Steven [facility] xas 01:12:00 Medical Branch PROTHROMBIN TIME / INR 2021-04-02 Steven Maloney [facility] 01:12:00 Medical Branch ACTIVATED PARTIAL THRMPLAS 2021-04-02 Steven Maloney [facility] MAMTA 01:12:00 Medical Branch URINALYSIS 2021-04-02 Steven Maloney [facility] xas 01:11:00 Medical Branch HB ECG ROUTINE & RHYTHM STRIP 2021-04-02 [facility] 01:06:28 Medical Branch NOTICE OF PRIVACY PRACTICES 2021-04-02 Doctor Unassigned, [facility] 00:25:37 [facility] CONSENT/REFUSAL FOR DIAGNOSIS 2021-04-02 Doctor Unassigned, [facility] AND TREATMENT 00:24:42 [facility] AGREEMENTS AUTHORIZATIONS AND 2021-04-01 Doctor Cassie, [facility] IRREVOCABLE ASSIGNMENTS (FORM 05:01:00 [place] [facility] [facility] 2000) AUTHORIZATION TO RELEASE PHI 2021-03-04 Doctor Matthews, [facility] TO [facility] 05:01:00 [facility] REFERRAL- REQUEST/RESPONSE 2021-02-20 [facility] 05:01:00 [facility] POTASSIUM LEVEL 2020-12-14 Tae Salazar [facility] 15:05:00 HC COMPLETE BLD COUNT W/AUTO 2020-12-14 Mike [facility] DIFF 09:24:00 BASIC METABOLIC PANEL 2020-12-14 [facility] 09:24:00 ESTIMATED GFR 2020-12-14 [facility] 09:24[facility]00 SURGICAL PATHOLOGY REQUEST 2020-12-13 Tae Salazar [facility] 19:49:00 [place] AN ELECTIVE ENDOTRACHEAL 2020-12-13 Himanshu Ludwig [facility] AIRWAY 19:25:07 ARTHROPLASTY, SHOULDER, TOTAL 2020-12-13 Tae Salazar [facility] 18:32:00 ANESTHESIA PERIPHERAL BLOCK 2020-12-13 Baljit Muñoz [facility] 17:53:19 [place] POC GLUCOSE 2020-12-13 Tae Salazar [facility] 14:30:00 URINE CULTURE 2020-12-11 [facility] 20:30:00 ECG PRE/POST OP 2020-12-11 [facility] 18:55:32 COVID-19 QUALITATIVE RT-PCR 2020-12-11 EdilbertoAimee mcneill [facility] 18:15:00 URINALYSIS SCREEN AND 2020-12-11 [facility] MICROSCOPY, WITH REFLEX TO 18:15:00 CULTURE TYPE AND SCREEN 2020-12-11 [facility] 18:15:00 HEMOGLOBIN A1C 2020-12-11 Omaira Li [facility] pital 18:15:00 PARTIAL THROMBOPLASTIN TIME 2020-12-11 Jen Omairagerard Silverman [facility] (PTT) 18:15:00 PROTHROMBIN TIME WITH INR 2020-12-11 Omaira Li [facility] 18:15:00 COMPREHENSIVE METABOLIC PANEL 2020-12-11 Omaira Li [facility] 18:15:00 HC COMPLETE BLD COUNT W/AUTO 2020-12-11 [facility] DIFF 18:15:00 ESTIMATED GFR 2020-12-11 [facility] 18:15:00 CELL COUNT AND DIFFERENTIAL, 2020-10-17 Tae Salazar [facility] BODY FLUID 18:16:00 NM BONE SCAN 3 PHASE 2020-10-17 [facility] 18:14:14 [place] RAD NEEDLE ASPIRATION 2020-10-17 Tae Salazar [facility] 17:28:02 JOINT FLUID CULTURE 2020-10-17 Tae Salazar ospital 16:50:00 ANAEROBIC CULTURE 2020-10-17 Tae [facility]azarist [facility]ital 16:50:00 FUNGUS CULTURE 2020-10-17 Tae Salazarist [facility] 16:50:00 AFB CULTURE 2020-10-17 Tae Salazarist [facility] 16:50:00 FUNGUS SMEAR 2020-10-17 Charles Tae Clarkeist Hospi [facility] 16:50:00 AFB STAIN 2020-10-17 [place], Tae Casillas [facility] 16:50:00 CT UPPER EXTREMITY WO RIGHT 2020-10-17 Tae Salazar [facility] 15:45:16 XR SHOULDER 2+ VW RIGHT 2020[facility]10[facility]10 [facility] 20:11:07 EXTERNAL PROVIDER RECORDS 2020-09-19 Doctor Unassigned, [facility] 06:01:00 [facility] PATIENT FINANCIAL POLICY 2020-08-30 Doctor Unassigned, [facility] 19:45:11 [facility] NO SHOW OR MISSED APPOINTMENT 2020-08-30 Doctor Unassigned, [facility] POLICY ACKNOWLEDGEMENT 19:44:52 [facility] NOTICE OF PRIVACY PRACTICES 2020-08-30 Doctor Unasssarkis, [facility] 19:44:13 [facility] CONSENT TO CONTACT FOR 2020-08-30 Doctor Cassie, [facility] VOLUNTARY RESEARCH 19:43:51 [facility] CONSENT/REFUSAL FOR DIAGNOSIS 2020-08-30 Doctor Unassigned, [facility] AND TREATMENT 19:43:19 [facility] ASSIGNMENT OF BENEFITS 2020-08-30 Doctor Unatatum, [facility] 19:42:42 [facility] Plan of Care Planned Activity Planned Date Details Comments Source Future Scheduled Test Hepatitis C screening [facility] (procedure) [code = 851415077] Future Scheduled Test Screening for malignant [facility] neoplasm of cervix (procedure) [code = 829233970] Future Scheduled Test BREAST CANCER SCREENING [facility] [code = BREAST CANCER SCREENING] Future Scheduled Test COLONOSCOPY SCREENING [facility] [code = COLONOSCOPY SCREENING] Future Scheduled Test COVID-19 VACCINE ( - [facility] Moderna 2-dose series) [code = COVID-19 VACCINE (2 - [facility] 2-dose series)] Future Scheduled Test INFLUENZA VACCINE [code [facility] = INFLUENZA VACCINE] Encounters Start End Encounter Admission Attending Care Care Encounter Source Date/Time Date/Time Type Type Clinicians Facility Department ID 2021-09-[address] [facility] [id number] Univers 21:01:20 [facility] Medical Branch 2021-08-26 Outpatient [facility] [id number] [place] 10:37:07 Health 2021-08-09 Outpatient LINDA, [facility] [id number] [place] 11:36:26 [facility] 2022-02-03 2022-02-03 Emergency E AZMARINAUROVA-A [facility] [id number] [facility] 10:10:00 20:37:00 JOSEPH RUTHERFORD 2022-01-30 2022-01-30 Outpatient R SAGRARIO [facility] [id number] Univers 14:30:00 14:30:00 EMILY [id number] [facility] 2022-01-30 2022-01-30 [facility] [id number] Univers 14:30:00 14:30:00 [facility] 2022-01-01 2022-01-01 Orders Doctor ADOLPH [id number] [id number] Univers 00:00:00 00:00:00 Only Unassigned, [place] 350.1.13.10 ity of [facility] 4.2.7.2.686 Reinaldo as [id number] [address] 2021-12-31 2021-12-31 [facility] [id number] Univers 14:30:00 14:30:00 EMILY [id number] [facility] 2021-12-31 2021-12-31 Outpatient R SAGRARIO [facility] [id number] Univers 14:30:00 14:30:00 [facility] 2021-11-04 2021-11-04 Laboratory Only, Ang Db Test [facility] 1.2.8 40.114 [id number] Univers 16:15:00 16:30:00 Only Sandip Wright [facility] 350.1.13.10 ity of [place] 4.2.7.2.686 Reinaldo as BABS?BLEA [id number] [address] MEDICAL OFFICE BUILDING 2021-11-04 2021-11-04 Outpatient R [facility] [id number] Univers 16:15:00 16:15:00 [id number] [facility] 2021-11-04 2021-11-04 [facility] [id number] Univers 16:15:00 16:15:00 SANDIP puente o f [facility] 2021-09-17 2021-09-17 [employer] Ezequiel, Ashley [facility] Main [facility] 1.2.8 40.114 [id number] Univers 17:25:33 17:40:33 Visit Beau Romero 350.1.13.1 0 ity [facility] 4.2.7.2.686 [place] [id number] Nd dical [address] 2021-09-17 2021-09-17 Outpatient R [facility] [id number] Univers 16:00:00 16:00:00 [id number] [facility] 2021-09-17 2021-09-17 [facility] [id number] Univers 16:00:00 16:00:00 BEAU [facility] 2021-09-17 2021-09-17 Orders Doctor ADOLPH 1.2.840.114 [id number] Univers 00:00:00 00:00:00 Only Unassigned, CASSIE 350.1.13.10 ity of [facility] 4.2.7.2.686 Reinaldo as [id number] [address] 2021-08-29 2021-08-29 [facility] [id number] Univers 13:00:00 13:00:00 EMILY [id number] [facility] 2021-08-29 2021-08-29 [facility] [id number] Univers 13:00:00 13:00:00 EMILY [facility] 2021-08-26 2021-08-26 Office VERITO CURRAN 6400 1.2.347.113 [id number] [place] 10:03:44 10:18:44 Visit GERALD DINERO 350.1.13.58 Health 9.2.7.2.686 [id number] 2021-08-16 2021-08-16 Travel 1.2.840.1 1.2.445.664 [id number] Methodi 00:00:00 00:00:[address] 3.430.2.7 0.2.7.3.698 Ho spita .3.236139 084.8 l .8 2021-08-13 2021-08-13 Travel 1.2.840.1 1.2.558.007 [id number] Methodi 00:00:00 00:00:[address] 3.430.2.7 0.2.7.3.698 Ho spita .3.842131 084.8 l .8 2021-08-12 2021-08-12 Office [place], 1.2.840.1 [id number] Methodi 08:43:45 10:09:31 Visit Tae Harris 60538.1.[address] 3.430.2.7 Hospit a .3.728473 l .8 2021-08-07 2021-08-07 Telephone [place], 1.2.840.1 [id number] Methodi 00:00:00 00:00:[address] Julius 3.430.2.7 Hospi ta .3.044341 l .8 2021-08-07 2021-08-07 Travel 1.2.840.1 1.2.475.488 3615 [id number] Methodi 00:00:00 00:00:[address] 3.430.2.7 0.2.7.3.698 Ho spita .3.847722 084.8 l .8 2021-08-06 2021-08-06 Telephone [place], 1.2.840.1 [id number] [id number] Methodi 00:00:00 00:00:00 Tae Harris [address]250.1.[address] 3.430.2.7 Hospit a .3.274587 l .8 2021-08-02 2021-08-02 [facility], 1.2.840.1 [id number] Methodi 16:31:40 16:36:[address] 3.430.2.7 Hospit a .3.655383 l .8 2021-08-02 2021-08-02 [facility], 1.2.840.1 [id number] Ector 00:00:00 00:00:00 Encounter TAE 83104.1.[address] .3.639431 .8 2021-08-02 2021-08-02 [facility], 1.2.840.1 [id number] Ector 00:00:00 00:00:00 Encounter TAE 66782.1.[address] .3.051526 .8 2021-08-02 2021-08-02 [facility], 1.2.840.1 [id number] Ector 00:00:00 00:00:00 Encounter TAE 11273.1.[address] .3.306638 .8 2021-08-02 2021-08-02 [facility], 1.2.840.1 [id number] Ector 00:00:00 00:00:00 Encounter TAE 22244.1.[address] .3.794881 .8 2021-08-02 2021-08-02 Travel 1.2.840.1 1.2.059.053 [id number] Methodi 00:00:00 00:00:[address] 3.430.2.7 0.2.7.3.698 Ho spita .3.941799 084.8 l .8 2021-07-31 2021-07-31 EXT [facility] OP Gwendolyn, EXT MSRDP 1.2.840.114 [id number] [place] 00:00:00 00:00:00 Isabel LOCATION 350.1.13.58 Health 9.2.7.2.686 [id number] 2021-07-29 2021-07-29 Travel 1.2.840.1 1.2.372.047 [id number] Methodi 00:00:00 00:00:[address] 3.430.2.7 0.2.7.3.698 Ho spita .3.324248 084.8 l .8 2021-07-10 2021-07-10 Travel 1.2.840.1 1.2.813.397 0471 [id number] Methodi 00:00:00 00:00:[address] 3.430.2.7 0.2.7.3.698 Ho spita .3.872018 084.8 l .8 2021-07-03 2021-07-03 Office [place], 1.2.840.1 [id number] Methodi 13:57:58 16:40:55 Visit Tae Harris 63941.1.[address] 3.430.2.7 Hospit a .3.060004 l .8 2021-07-03 2021-07-03 Travel 1.2.840.1 1.2.664.538 [id number] Methodi 00:00:00 00:00:[address] 3.430.2.7 0.2.7.3.698 Ho spita .3.075630 084.8 l .8 2021-07-01 2021-07-01 Travel 1.2.840.1 1.2.025.086 [id number] [id number] Methodi 00:00:00 00:00:[address] 3.430.2.7 0.2.7.3.698 Ho spita .3.012758 084.8 l .8 2021-05-31 2021-05-31 Office Eduardo [facility] 1.2.840.114 [id number] Univers 16:24:31 16:59:54 Visit Goyo Trinh 350.1.13.10 ity [place] [id number] [facility] 092 [facility] 2021-05-31 2021-05-31 Outpatient EDUARDOGOYO Apodaca [facility] [id number] Univers 16:20:00 16:20:00 GOYO GILLIAM [id number] ity [facility] 2021-05-31 2021-05-31 Outpatient R EDUARDO, GOYO [facility] [id number] Univers 16:20:00 16:20:00 GOYO GILLIAM ity [facility] 2021-05-27 2021-05-27 [facility] [id number] Univers 10:30:00 10:30:00 CECELIA [id number] ity [facility] 2021-05-27 2021-05-27 Outpatient R TROY [facility] [id number] Univers 10:30:00 10:30:00 CECELIA ity [facility] 2021-04-30 2021-04-30 Orders Doctor ADOLPH 1.2.840.114 [id number] Univers 00:00:00 00:00:00 Only Unassigned, CASSIE 350.1.13.10 ity of [facility] 4.2.7.2.686 Reinaldo as [phone] [facility] 009 Branch 2021-04-04 2021-04-04 Transition Rylie Clay 1.2.840.114 846 08553 Univers 00:00:00 00:00:00 of Care Chelsey Mckeon 350.1.13.10 it [place] [phone] [facility] 403 Branch 2021-04-01 2021-04-03 Hospital Steven Maloney 1.2.840.1 14 [id number] Univers 19:39:00 16:59:00 Encounter Manuel Lamberty 350.1. 13.10 [facility] 4.2.7.2.686 [place] [phone] [facility] 094 [place] 2021-04-01 2021-04-01 Nurse ADOLPH Rutherford 1.2.660.423 8966 6653 Univers 00:00:00 00:00:00 Triage Christiandenis MATTHEWS 350.1.13.10 [facility] 4.2.7.2.686 Reinaldo as [phone] [facility] 019 Branch 2021-03-19 2021-03-19 Outpatient R [facility] [id number] -20 Univers 13:00:00 13:00:00 [id number] ity [facility] 2021-03-19 2021-03-19 Outpatient R GOYO GILLIAM [facility] [id number] Univers 13:00:00 13:00:00 GOYO GILLIAM [facility] 2021-03-04 2021-03-04 Office Eduardo [facility] 1.2.840.114 [id number] Univers 14:56:39 16:12:00 Visit Goyo Trinh 350.1.13.10 ity [facility] [place] [phone] [facility] 2021-03-04 2021-03-04 Outpatient R GOYO GILLIAM [facility] [id number] Univers 15:00:00 15:00:00 GOYO GILLIAM [id number] [facility] 2021-03-04 2021-03-04 Outpatient GOYO RODRIGUEZ [facility] [id number] Univers 15:00:00 15:00:00 GOYO GILLIAM denis [facility] 2021-03-04 2021-03-04 Orders Doctor FARFAN 1.2.840.114 [id number] Univers 00:00:00 00:00:00 Only Unassigned, CASSIE 350.1.13.10 ity of [facility] 4.2.7.2.686 Reinaldo as [phone] [facility] 009 Branch 2021-02-20 2021-02-20 Orders Doctor FARFAN 1.2.840.114 [id number] Univers 00:00:00 00:00:00 Only Unassigned, CASSIE 350.1.13.10 ity of [facility] 4.2.7.2.686 Reinaldo as [phone] [place] [address] Branch 2021-01-23 2021-01-23 Outpatient MIN [facility] [id number] Univers 14:00:00 14:00:00 BALJIT puente of [facility] 2021-01-19 2021-01-19 [facility] 1.2.840.114 [id number] Univers 00:00:00 00:00:00 Outreach Baljit PRIMARY 350.1.13.10 i ty of [facility] [place]2.[place] [phone] Nd dical [facility] Branch 2021-01-19 2021-01-19 Patient Min [facility] 1.2.840.114 [id number] 00:00:00 00:00:00 Outreach Baljit PRIMARY 350.1.13.10 [facility] 4.2.7.2.686 PAVILLION [phone] 388 2021-01-17 2021-01-17 Orders Abel, 1.2.840.1 [id number] 1235 Methodi 00:00:00 00:00:[address] Dori [address]19.1.[address] 3.430.2.7 Hospit a .3.072894 l .8 2021-01-03 2021-01-03 Orders Ramon, 1.2.840.1 [id number] 015 [id number] Methodi 00:00:00 00:00:00 [address] Aimee 50621.1.[address] 3.430.2.7 Hospit a .3.020516 l .8 2021-01-03 2021-01-03 Cristino Salazar, 1.2.840.1 [id number] 2100 310270 Methodi 00:00:00 00:00:00 Tae Harris 88211.1.[address] 3.430.2.7 Hospit a .3.500585 l .8 2021-01-02 2021-01-02 Kenny Salazar, 1.2.840.1 [id number] 9183 Methodi 11:18:16 12:06:52 Visit Tae Harris 55360.1.[address] 3.430.2.7 Hospit a .3.990875 l .8 2021-01-02 2021-01-02 Travel 1.2.840.1 1.2.366.417 7474 361569 Methodi 00:00:00 00:00:[address] 3.430.2.7 0.2.7.3.698 Ho spita .3.410642 084.8 l .8 2020-12-27 2020-12-27 Travel 1.2.840.1 1.2.234.570 3471 932027 Methodi 00:00:00 00:00:[address] 3.430.2.7 0.2.7.3.698 Ho spita .3.353566 084.8 l .8 2020-12-19 2020-12-19 Orders Ramon, 1.2.840.1 [id number] 604 [id number] Methodi 00:00:00 00:00:00 Only Aimee 72544.1.[address] 3.430.2.7 Hospit a .3.004316 l .8 2020-12-19 2020-12-19 Orders Abel, 1.2.840.1 [id number] 8622 Methodi 00:00:00 00:00:00 Only Dori 21588.1.[address] 3.430.2.7 Hospit a .3.052156 l .8 2020-12-17 2020-12-17 Telephone Ramon, 1.2.840.1 [id number] 2 [id number] Methodi 00:00:00 00:00:[address] 3.430.2.7 Hospit a .3.677178 l .8 2020-12-17 2020-12-17 Travel 1.2.840.1 1.2.231.040 4207 697435 Methodi 00:00:00 00:00:[address] 3.430.2.7 0.2.7.3.698 Ho nkechi .3.797053 084.8 l .8 2020-12-15 2020-12-15 Telephone Cameron, 1.2.840.1 [id number] 710 [id number] Methodi 00:00:00 00:00:[address] 3.430.2.7 Hospit a .3.172056 l .8 2020-12-13 2020-12-14 [facility], 1.2.840.1 [id number] 02025 34250 Methodi 07:03:00 17:24:00 Encounter Tae TStewart 49022.1.[address] 3.430.2.7 Hospit a .3.255010 l .8 2020-12-13 2020-12-13 Anesthesia Baljit Muñoz 1.2.840 .1 [id number] Methodi 12:32:00 15:20:00 Event Omaira LiStewart 06874.1.[address] 3.430.2.7 Hospit a .3.449204 l .8 2020-12-13 2020-12-13 [facility], 1.2.840.1 [id number] 146932 8533 Methodi 11:30:00 15:05:00 Tae Harris 73090.1.[address] 3.430.2.7 Hospit a .3.987557 l .8 2020-12-13 2020-12-13 [facility], 1.2.840.1 [id number] 2100 659932 Methodi 00:00:00 00:00:00 Tae Harris 62959.1.[address] 3.430.2.7 Hospit a .3.540292 l .8 2020-12-13 2020-12-13 [facility], 1.2.840.1 [id number] [id number] 7043 Methodi 00:00:00 00:00:00 Only Tae AdrianStewart 27864.1.[address] 3.430.2.7 Hospit a .3.048071 l .8 2020-12-13 2020-12-13 Travel 1.2.840.1 1.2.480.255 4923 224754 Methodi 00:00:00 00:00:[address] 3.430.2.7 0.2.7.3.698 Ho spita .3.241857 084.8 l .8 2020-12-12 2020-12-12 Cristino Charles, 1.2.840.1 [id number] 2099 356143 Methodi 00:00:00 00:00:[address] 3.430.2.7 Hospit a .3.872653 l .8 2020-12-11 2020-12-11 Pre-Admiss Charles, 1.2.840.1 [id number] 539 [id number] Methodi 11:04:20 12:04:20 ion Tae Campbell. 08640.1.[address] Testing 3.430.2.7 Hospit a .3.392304 l .8 2020-12-11 2020-12-11 Pre-Admiss 1.2.840.1 [id number] 644 [id number] Methodi 10:30:00 11:30:[address] Testing 3.430.2.7 Hospit a .3.736906 l .8 2020-12-11 2020-12-11 Travel 1.2.840.1 1.2.148.593 0940 413604 Methodi 00:00:00 00:00:[address] 3.430.2.7 0.2.7.3.698 Ho spita .3.144847 084.8 l .8 2020-12-04 2020-12-04 Freddy Navarro, 1.2.840.1 [id number] 992 [id number] Methodi 00:00:00 00:00:00 Only Aimee 66425.1.[address] 3.430.2.7 Hospit a .3.214087 l .8 2020-12-04 2020-12-04 Travel 1.2.840.1 1.2.367.086 4966 475251 Methodi 00:00:00 00:00:[address] 3.430.2.7 0.2.7.3.698 Ho spita .3.266409 084.8 l .8 2020-11-21 2020-11-21 Orders Ramon, 1.2.840.1 [id number] 332 [id number] Methodi 00:00:00 00:00:00 Only Aimee 24591.1.[address] 3.430.2.7 Hospit a .3.413531 l .8 2020-11-20 2020-11-20 Pre-Admiss [place], 1.2.840.1 [id number] 519 [id number] Methodi 13:30:00 14:30:[address] lawrence [address] 76666.1.[address] Testing 3.430.2.7 Hospit a .3.179218 l .8 2020-11-20 2020-11-20 Travel 1.2.840.1 1.2.332.573 9735 262356 Methodi 00:00:00 00:00:[address] 3.430.2.7 0.2.7.3.698 Ho spita .3.434131 084.8 l .8 2020-11-20 2020-11-20 Cristino Yanethalisia, 1.2.840.1 [id number] 2 [id number] Methodi 00:00:00 00:00:[address] 3.430.2.7 Hospit a .3.304367 l .8 2020-11-13 2020-11-13 Freddy Roman, 1.2.840.1 [id number] 187602 9050 Methodi 00:00:00 00:00:00 Only Dori 72672.1.[address] 3.430.2.7 Hospit a .3.710969 l .8 2020-11-06 2020-11-06 [facility], 1.2.840.1 [id number] 2099 440542 Methodi 00:00:00 00:00:00 Tae Harris 93633.1.[address] 3.430.2.7 Hospit a .3.962594 l .8 2020-10-24 2020-10-24 [facility], 1.2.840.1 [id number] 495192 8776 Methodi 12:58:09 13:58:27 Visit Tae Harris 12360.1.[address] 3.430.2.7 Hospit a .3.840880 l .8 2020-10-24 2020-10-24 Travel 1.2.840.1 1.2.345.936 4541 446682 Methodi 00:00:00 00:00:[address] 3.430.2.7 0.2.7.3.698 spita .3.763702 084.8 l .8 2020-10-17 2020-10-17 [facility], 1.2.840.1 [id number] 88588 26745 Methodi 12:05:45 23:59:00 Encounter Tae Harris 50650.1.[address] 3.430.2.7 Hospit a .3.748290 l .8 2020-10-17 2020-10-17 [facility], 1.2.840.1 [id number] 100665 6115 Methodi 13:32:52 13:37:52 Tae Harris 37011.1.[address] 3.430.2.7 Hospit a .3.412843 l .8 2020-10-17 2020-10-17 [facility], 1.2.840.1 [id number] 63107 26416 Methodi 09:42:51 12:04:00 Encounter Tae Harris 38062.1.[address] 3.430.2.7 Hospit a .3.901138 l .8 2020-10-17 2020-10-17 [facility], 1.2.840.1 [id number] 89823 19260 Methodi 08:35:22 09:41:00 Encounter Tae Harris 09533.1.[address] 3.430.2.7 Hospit a .3.269285 l .8 2020-10-17 2020-10-17 [facility] 1.2.840.1 [id number] 46730 68839 Methodi 08:30:00 08:34:00 Encounter Tae Harris 37270.1.[address] 3.430.2.7 Hospit a .3.968651 l .8 2020-10-17 2020-10-17 Travel 1.2.840.1 1.2.225.934 2234 019496 Methodi 00:00:00 00:00:[address] 3.430.2.7 0.2.7.3.698 Ho spita .3.942982 084.8 l .8 2020-10-10 2020-10-10 [facility] 1.2.840.1 [id number] 8612 Methodi 13:23:54 14:33:23 Visit Tae Harris 33439.1.[address] 3.430.2.7 Hospit a .3.574104 l .8 2020-10-10 2020-10-10 Travel 1.2.840.1 1.2.082.813 7833 527684 Methodi 00:00:00 00:00:[address] 3.430.2.7 0.2.7.3.698 Ho spita .3.255250 084.8 l .8 2020-10-01 2020-10-01 Travel 1.2.840.1 1.2.231.707 0131 998518 Methodi 00:00:00 00:00:[address] 3.430.2.7 0.2.7.3.698 Ho spita .3.251142 084.8 l .8 2020-09-28 2020-09-28 Outpatient DANIELA [facility] 032 4 [facility] 15:16:00 19:15:00 KRAIG 2020-09-26 2020-09-27 Emergency [facility] 7503 [facility] 18:28:00 01:35:00 2020-09-24 2020-09-24 Laboratory Lab, [facility] Pob I [facility] 1.2. 840.114 [id number] Univers 18:30:16 18:50:16 Only Tona Bermude[facility] 350.1.13.10 ity of [place] 4.2.7.2.686 [place] Professio [phone] Nd dical [address] Office Building One 2020-09-24 2020-09-24 Laboratory Lab, [facility] 1.2.840.114 [id number] 18:30:16 18:50:16 [facility] 350.1.13.10 [place] 4.2.7.2.686 Professio [phone] [place] [address] [address] 2020-09-24 2020-09-24 Outpatient R [facility] [id number] -20 Univers 18:40:00 18:40:00 221592 ity [facility] 2020-09-24 2020-09-24 Outpatient R SRINIVASAN [facility] 87413 17824 Univers 18:40:00 18:40:00 TONA ity [facility] 2020-09-24 2020-09-24 Travel 1.2.840.1 1.2.161.159 3601 199744 Methodi 00:00:00 00:00:[address] 3.430.2.7 0.2.7.3.698 Ho spita .3.475464 084.8 l .8 2020-09-19 2020-09-19 Orders Doctor FARFAN 1.2.840.114 [id number] 24 Univers 00:00:00 00:00:00 Only Unassigned, CASSIE 350.1.13.10 ity of [facility] 4.2.7.2.686 Reinaldo as [phone] [address] 2020-09-19 2020-09-19 Orders Doctor ADOLPH 1.2.840.114 [id number] 24 00:00:00 00:00:00 Only Unassigned, CASSIE 350.1.13.10 [place] [facility] 4.2.7.2.686 [id number] 009 2020-09-06 2020-09-06 Travel 1.2.840.1 1.2.139.410 7805 176584 Methodi 00:00:00 00:00:[address] 3.430.2.7 0.2.7.3.698 Ho spita .3.656047 084.8 l .8 2020-09-05 2020-09-05 [facility] 1.2.114.288 7252 6007 [facility] 00:00:00 00:00:00 Management Annika Brunoton 350.1.13.10 ity of [place] [phone] Nd dical [address] 2020-09-05 2020-09-05 [facility] 1.2.955.187 4731 6007 00:00:00 00:00:00 Management Annika Ziggy 350.1.13.10 [place] 4.2.7.2.686 Professio [phone] [address] 2020-09-04 2020-09-04 Travel 1.2.840.1 1.2.928.927 6703 302600 Methodi 00:00:00 00:00:[address] 3.430.2.7 0.2.7.3.698 Ho spita .3.934739 084.8 l .8 2020-08-30 2020-08-30 [facility] 1.2.326.841 3108 6935 Univers 14:45:50 15:47:54 Visit Annika Ziggy 350.1.13.10 i ty of [place].2.[place] [phone] Nd dical [address] 2020-08-30 2020-08-30 Outpatient R JAIME [facility] 38662 8P-20 Univers 14:30:00 14:30:00 ANNIKA 381143 ity [facility] 2020-08-30 2020-08-30 Outpatient R JAIME [facility] 75654 97554 Univers 14:30:00 14:30:00 ANNIKA ity [facility] 2020-08-30 2020-08-30 Orders Doctor ADOLPH 1.2.840.114 [id number] Univers 00:00:00 00:00:00 Only Unassigned, CASSIE 350.1.13.10 [facility] 4.2.7.2.686 Reinaldo as [phone] [facility] [address] 2020-04-24 2020-04-25 Emergency E AZNAUROVA-A BL BL 7502 BL 21:30:00 03:03:00 JOSEHUSSAINJOSEPH 2020-03-19 2020-03-22 Inpatient U BENNETTOBLE, [facility] CAR 0132 [facility] 04:07:00 15:45:00 KELLI 2020-03-19 2020-03-19 Emergency E VISHNYAKOVA BL BL 7501 [facility]BL 00:18:00 03:25:00 , MICHELINE 2020-03-18 2020-03-18 Nurse Isabell Diaz 1.2.840.114 755 38831 [facility] 00:00:00 00:00:00 Triage CASSIE 350.1.13.10 it y of HOSPITAL 4.2.7.2.686 Reinaldo as [phone] [facility] 019 Branch 2019-08-03 2019-08-03 Outpatient [facility] 7500 [facility] 10:08:00 10:08:00 Results Test Description Test Time Test Comments Results Result Comments Source Joint fluid culture 2021-08-07 03:24:41 Test Item Value Reference Range Interpretation Comme nts Joint fluid culture No growth after 4 Spe cimen InformationSpecimen isolate (test code = days. Source: Joint FluidSpecimen Site: 1634) PLEASE HOLD FOR 21 DAYS [facility] [id number] 14:08:12 Test Item Value Reference Range Interpretation Comments Anaerobic No anaerobic Specimen culture isolate organisms InformationS pecimen (test code = isolated. Source: Joint 552) FluidSpecimen S ite: PLEASE HOLD FOR 21 DAYS [facility] [id number] 18:30:51 Test Item Value Reference Range Interpretation Comments Fungus smear No fungi Specimen (test code = observed. InformationSpec imen Source: 1443) Joint FluidSpec imen Site: PLEASE HOLD FOR 21 DAYS [facility] [id number] 16:04:26 Test Item Value Reference Range Interpretation Comments AFB stain No acid fast Specimen (test code = bacilli (AFB) InformationSpe cimen 676-7) seen. Source: Joint FluidSpecimen S ite: PLEASE HOLD FOR 21 DAY S [facility] HospitalGram [id number] 03:53:00Gram stain isolateRare WBC'sNo organisms seen Comment: Specimen InformationSpecimen Source: Joint FluidSpecimen Site: PLEASE HOLD FOR 21 DAYS [facility] and differential, body [id number] 02:59:47 Test Item Value Reference Range Interpretation Comments Misc fluid type (test JOINT FLUID code = 10068-7) Color, fluid (test Red code = 6824-7) Appearance, fluid Clear (test code = 9335-1) RBC, fluid (test code See_Comment DISREG AMPARO PREVIOUS = 44958-1) RESULTS, WERE AUTOMATED (QUESTIONABLE); THEREFORE A MAN UAL COUNT WAS PERFORMED,AND M ANUAL COUNT CORRELATE D. Corrected resul t; previously repo rted as 420,000 on 08/02/2021 at 1 7:19 by [id number] REPORT, Prevfrank mckennay reported as: [place] EVIOUS RESULTS WERE AUTOMATED (QUESTIONABLE), THEREFORE A [...] fluid (test code = previousl y reported 32459-3) as 1500 on 07/11 at 17:19 by PEC 3 [Automated mess age] The system Catarizmic h generated this result transmitted ref erence range: /CMM. Th e reference range was not used to int erpret this result as normal/abnormal . Fluid mononuclear 2/CMM cell (test code = 1407) SHEILA (test code = SHEILA) right knee [facility] Bone Scan 3 [id number] 23:08:01PROCEDURE: NM BONE SCAN 3 PHASE CLINICAL HISTORY: Z98.890 Other specified postprocedural states, M25.511 Pain in right shoulder, to rule out infection COMPARISON: Three-phase bone scan of the chest 10/17/2020; CT right upper extremity today TECHNIQUE: 25 millicuries of gtkmcbqisy-71u-VEV were administered IV, followed by blood flow [...] instead represents loosening associated with nonspecific inflammation/hyperemia. [facility]- [id number] [facility], Radiology Results 08/02/2021 6:11 PM CDT PROCEDURE: NM BONE SCAN 3 PHASECLINICAL HISTORY: Z98.890 Other specified postprocedural states, M25.511 Pain in right shoulder, to rule out infectionCOMPARISON: Three- phase bone scan of the chest 10/17/2020; CT right upper extremity todayTECHNIQUE: 25 millicuries of skablmyevl-75v-SXM were administered IV, followed by blood flow [...] instead represents loosening associated with nonspecific inflammation/hyperemia. [facility]-[id number] Center Rad Needle [id number] 21:27:06 EXAMINATION: FL RAD NEEDLE ASPIRATION CLINICAL [...] IMPRESSION: Successful fluoroscopic guided right shoulder aspiration. [id number] Interface, Radiology Results 08/02/2021 4:30 PM CDT [...] no immediate complications.IMPRESSION:Successful fluoroscopic guided right shoulder aspiration.[id number] HospitalCT Upper Extremity Wo [id number] 19:38:05EXAMINATION: CT UPPER EXTREMITY WO RIGHT CLINICAL [...] collections or masslike lesions along the prosthesis. [id number] Interface, Radiology Results Incoming - 08/02/2021 2:41 [...] fluid collections or masslike lesions along the prosthesis.[facility]-[id number] HospitalURINE [id number] 12:12:15 Test Item Value Reference Range Interpretation Comments URINE CULTURE (test < 10,000 CFU/mL mixed code = 630-4) aerobic organisms - suggests endogenous microbial contamination [facility] METABOLIC PANEL (NA, K, CL, CO2, GLUCOSE, BUN, CREATININE, CA)2021-04-03 11:03:41 Test Item Value Reference Range Interpretation Comments NA (test code = 136 mmol/L 135-145 2657704069) K (test code = 4.5 mmol/L 3.5-5.0 Slight 6811398706) hemolysis CL (test code = 94 mmol/L 98-108 L 5971346336) CO2 TOTAL (test code 38 mmol/L 23-31 H = 3578275212) AGAP (test code = 2-16 6203799733) BUN (test code = 28 mg/dL 7-23 H Slight 7888396559) hemolysis GLUCOSE (test code = 119 mg/dL 70-110 H 8429495383) CREATININE (test code 0.73 mg/dL 0.50-1.04 = 7702326848) CALCIUM (test code = 8.8 mg/dL 8.6-10.6 8483660114) eGFR (test code = mL/min/1.73m2 1256772477) SHEILA (test code = SHEILA) Association of [...] tests). Lab Interpretation Abnormal (test code = 36148-5) [facility] - Duration of test: 20-60 mins; Release to patient: [id number] 00:00:00Date and Time of Procedure: 04/03/2021, 08:40 [...] written. Gibran Dickens MD Date of interpretation: 04/03/2021[id number] 20:24:03 Test Item Value Reference Range Interpretation Comments NT-proBNP (test code 218 pg/mL See_Comment H [Autom ated = 2702947122) message] The system which generated this result transmitted reference range : <=125. The reference range was not used to interpret this result as normal/abnormal . SHEILA (test code = SHEILA) Biotin has been reported to cause a negative bias, interpret results relative to patient's use of biotin. Lab Interpretation Abnormal (test code = 28196-0) [facility] Center[facility] CHEST 1 [id number] 13:04:48 No acute cardiopulmonary abnormality. Preliminary Report [...] reviewed this study and agree with theabove report.[facility] CenterAC PANEL 20 + LACTIC [id number] 03:36:51 Test Item Value Reference Range Interpretation Comments PH (test code = 2) 7.35-7.45 L PCO2 (test code = See_Comment H [Automat ed 8687572919) message] The sy stem which generated this result transmitted reference range : 35 - 45 mmHg. The reference range was not used to interpret this result as normal/abnormal . PO2 (test code = See_Comment L [Automated 8771971772) message] The sy stem which generated this result transmitted reference range : 80 - 100 mmHg. The reference range was not used to interpret this result as normal/abnormal . HCO3 (test code = See_Comment H [Automate d 0942246785) message] The sy stem which generated this result transmitted reference range : 22 - 26 mEq/L. The reference range was not used to interpret this result as normal/abnormal . BE (test code = See_Comment [Automated 1912900623) message] The sy stem which generated this result transmitted reference range : -3.0 - 3.0 mEq/ L. The reference r kendell was not used to interpret this result as normal/abnormal . THB (test code = 14.2 g/dL 12.0-16.0 8114694229) %O2HB (test code = 89.4 % 94.0-99.0 L 8912423805) %COHB ART (test code = 4.8 % 0.0-1.5 H 8756359182) %METHB ART (test code = 0.3 % 0.4-1.5 L 6072776172) VOL%O2 ART (test code = 17.9 % 15.0-23.0 9859109506) NA (test code = 135 mmol/L 135-145 4010442328) K+ (test code = 4.3 mmol/L 3.5-5.0 3021379524) AC CA IONZ (test code = 4.60 mg/dL 4.50-5.30 4974079724) GLUCOSE (test code = 95 mg/dL 70-110 1781827897) LACTIC ACID (test code 0.78 mmol/L 0.50-2.20 = 3045329217) Lab Interpretation Abnormal (test code = 17517-1) [facility] Test Item Value Reference Range Interpretation Comments ALCOHOL (test code = <10 mg/dL 4849543624) SHEILA (test code = SHEILA) <10 [id number] Toxic>100 Depression of CHIEF EXECUTIVE>400 [facility] Reported [facility] [id number] 02:35:56 Test Item Value Reference Range Interpretation Comments TROPONIN I (test <0.012 See_Comment [Automated code = [id number]) message] The system which generated this result [...] ? Lab Interpretation Normal (test code = 18355-6) [facility] - COMPREHENSIVE DRUG [id number] 02:32:35 Test Item Value Reference Range Interpretation Comments AMPHET (test code = Negative Negative 4123914944) GENNARO U (test code = Negative Negative 3414950032) BENZO U (test code = Negative Negative 9648277850) Cocaine Metabolite (test Negative Negative code = 2718624743) METHADONE (test code = Negative Negative 8711415264) OPIATES (test code = Presumptive Positive Negative A 8768437501) PCP (test code = Presumptive Positive Negative A 9017777922) THC (test code = Negative Negative 0760917122) SHEILA (test code = SHEILA) Urine Drug [...] testing). Lab Interpretation (test Abnormal code = 04594-2) [facility]ID [facility])2021-04-02 02:30:32 Test Item Value Reference Range Interpretation Comments SARS-CoV-2 Rapid ID NOW Not Detected Not Detected (test code = 04436-1) SHEILA (test code = SHEILA) ID NOW COVID-19 Assay is an isothermal nucleic acid amplification test intended for the qualitative detection of nucleic acid from SARS-CoV-2 viral RNA in nasopharyngeal (SLEEP SCIENTIST) specimens. It is used under Emergency Use [...] indicated. Lab Interpretation Normal (test code = 79259-4) [facility] Metabolic Panel (NA, K, CL, CO2, GLUCOSE, BUN, CREATININE, CA)2021-04-02 02:24:48 Test Item Value Reference Range Interpretation Comments NA (test code = 136 mmol/L 135-145 3653902147) K (test code = 4.9 mmol/L 3.5-5.0 1354499625) CL (test code = 96 mmol/L 98-108 L 5117604780) CO2 TOTAL (test code = 31 mmol/L 23-31 6253187376) AGAP (test code = 2-16 3215987509) BUN (test code = 43 mg/dL 7-23 H 4700038485) GLUCOSE (test code = 96 mg/dL 70-110 6534723672) CREATININE (test code = 0.92 mg/dL 0.50-1.04 0215280919) CALCIUM (test code = 9.4 mg/dL 8.6-10.6 9485787460) eGFR (test code = mL/min/1.73m2 8200600949) SHEILA (test code = SHEILA) Association of [...] tests). Lab Interpretation Abnormal (test code = 95983-7) [facility] (ALB, T.PRO, BILI T, BU/BC, ALT, AST, ALK PHOS)2021-04-02 02:24:48 Test Item Value Reference Range Interpretation Comments TOTAL BILI (test code = 9991773068) 0.7 mg/dL 0.1-1.1 BILI UNCON (test code = 5766335756) 0.4 mg/dL 0.1-1.1 BILI CONJ (test code = 6666828471) 0.0 mg/dL 0.0-0.3 T PROTEIN (test code = 0096352218) 6.8 g/dL 6.3-8.2 ALBUMIN (test code = 6617923585) 4.4 g/dL 3.5-5.0 ALK PHOS (test code = 8966115728) 85 U/L 34-122 ALTv (test code = 1742-6) 27 U/L 5-35 AST(SGOT) (test code = 3641609754) 53 U/L 13-40 H Lab Interpretation (test code = Abnormal 33232-4) [facility] [id number] 02:03:35 No acute intracranial findings. Left occipital [...] base intact. Mild ethmoid air cell mucosalthickening. [facility], Radiant Results Inft User - 04/01/2021 9:04 [...] the leftcerebellum. Correlation with prior surgical history suggested.[facility]inalysis[facility]21[facility] 01:59:54 Test Item Value Reference Range Interpretation Comments APPEARANCE (test code = Clear Clear 5803676364) COLOR (test code = Yellow Yellow 1575512281) PH (test code = 4.8-8.0 3890619475) SP GRAVITY (test code = 1.003-1.030 1829939870) GLU U QUAL (test code = Normal Normal 8547586577) BLOOD (test code = Negative Negative 1998778023) KETONES (test code = Negative Negative 9133215870) PROTEIN (test code = Negative Negative 2887-8) UROBILIN (test code = Normal Normal 4515815264) BILIRUBIN (test code = 2 mg/dL Negative A 6161546880) NITRITE (test code = Negative Negative 3186644104) LEUK MERYL (test code = 250/uL Negative A 5239013413) RBC/HPF (test code = See_Comment [Autom ated message] 6808130211) The system [facility] generated this result transmitted ref erence range: 0 - 3 HP F. The reference range was not used to int erpret this result as normal/abnormal . WBC/HPF (test code = See_Comment H [Autom ated message] 6809608997) The system [facility] generated this result transmitted ref erence range: 0 - 5 HP F. The reference range was not used to int erpret this result as normal/abnormal . BACTERIA (test code = Few Negative A 1286924573) MUCOUS (test code = Slight Negative LPF A 0978865474) SQ EPITH (test code = HPF 5482290713) HYAL CAST (test code = See_Comment [Aut omated message] 6160047116) The system [facility] generated this result transmitted ref erence range: <=2 LPF. The reference range was not used to int erpret this result as normal/abnormal . Lab Interpretation (test Abnormal code = 36786-2) [facility] 01:49:53 Test Item Value Reference [...] seconds. Lab Interpretation Normal (test code = 28265-1) [facility] CenterProthrombin Time (PT) / [id number] 01:47:51 Test Item Value Reference Range Interpretation Comments PROTIME PATIENT (test See_Comment [Auto mated message] code = 5964-2) The system [facility] generated this result transmitted ref erence range: 12.0 - 1 4.7 Seconds. The re ference range was not u sed to interpret this result as normal/abnor mal. INR (test code = 6301-6) Nor mal INR <1.1; Warfarin Therap eutic range 2.0 to 3. 0 or 2.5 to 3.5, dep ending upon the indica tions. Lab Interpretation (test Normal code = 41643-5) [facility] CenterCB with [id number] 01:38:27 Test Item Value Reference Range Interpretation [...] RDW-SD (test code = 44.2 fL 39.0-49.9 59028-1) RDW-CV (test code = 12.5 % 12.0-15.5 788-0) PLT (test code = See_Comment [Automated 777-3) message] The sy stem which generated this result transmitted reference range : 166 - 358 10*3/ ?L. The reference r kendell was not used to interpret this result as normal/abnormal . MPV (test code = 9.4 fL 9.5-12.9 L 41410-9) NRBC/100 WBC (test See_Comment [Automat ed code = 9177162083) message] The system which generated this result transmitted reference range : 0.0 - 10.0 /100 WBCs. The refer ence range was not u sed to interpret th is result as normal/abnormal . NRBC x10^3 (test code <0.01 See_Comment [Auto mated = 9268050438) message] The s ystem which generated this result transmitted reference range : 10*3/?L. The reference range was not used to interpret this result as normal/abnormal . GRAN MAT (NEUT) % 63.0 % (test code = 770-8) IMM GRAN % (test code 0.10 % = 3220394664) LYMPH % (test code = 21.2 % 736-9) MONO % (test code = 8.0 % 5905-5) EOS % (test code = 7.1 % 713-8) BASO % (test code = 0.6 % 706-2) GRAN MAT x10^3(ANC) 6.08 10*3/uL 1.88-7.09 (test code = 4309227711) IMM GRAN x10^3 (test <0.03 0.00-0.06 code = 1185481274) LYMPH x10^3 (test code 2.04 10*3/uL 1.32-3.29 = 731-0) MONO x10^3 (test code 0.77 10*3/uL 0.33-0.92 = 742-7) EOS x10^3 (test code = 0.68 10*3/uL 0.03-0.39 H 711-2) BASO x10^3 (test code 0.06 10*3/uL 0.01-0.07 = 704-7) Lab Interpretation Abnormal (test code = 65025-0) [facility] CenterS[facility] [id number] 23:47:47 Test Item Value Reference Range Interpretation Comments Case number (test code = [id number]) Surgical pathology See link below for report (test code = PDF Lab Report [id number]) Result status (test code This is Final Report = [id number]) for [id number] [facility]2021-02-04 19:25:07Himanshu Ludwig CRNA 12/13/2020 1:28 [address] Location: [...] RSI: No Number of Attempts at Approach: [address] [place], [place] [address]ipheral [id number] 17:53:19Baljit Muñoz MD 12/13/2020 11:54 AMPeripheral Block [...] complications, patient comfortable and patient tolerated [facility] [id number] 01:59:29 Test Item Value Reference Range Interpretation Comments Urine culture Mixed roseanna Specimen isolate (test <=10-3 col/cc InformationSp ecimen code = 05393-0) Source: Urin eSpecimen Site: Clean cat ch [facility] CenterCOVID-19 qualitative [id number] 01:20:42 Test Item Value Reference Range Interpretation Comments Interpretation (test Negative results do code = 8900336) not preclude 2019-nCoV infection and should not be used as the sole basis for treatment or other patient management decisions. Negative results must be combined with clinical observations, patient history, and epidemiological information. COVID-19 qualitative Not-Detected Not-Detected RT-PCR result (test code = 00837-9) COVID-19 qualitative See link below for C ase Number: RT-PCR (test code = PDF Lab Report [id number]) [facility] CenterEC Pre/Post [id number] 01:07:29 Test Item Value Reference Range Interpretation Comments Ventricular rate (test code = 253) Atrial rate (test code = 255) WV interval (test code = 266) QRSD interval [...] Turner MD ([id number]) on 12/11/2020 7:07:27 PM [facility] CenterAF [id number] 06:13:39 Test Item Value Reference Range Interpretation Comments AFB culture No growth Specimen isolate (test after 6 weeks InformationSp ecimen code = 543-9) of Source: Joint incubation. FluidSpecimen S ite: RIGHT SHOULDER/ASPIRA TION [facility] [id number] 06:15:29 Test Item Value Reference Range Interpretation Comments Fungus culture No growth Specimen isolate (test after 4 weeks InformationSp ecimen code = 1441) of Source: Joint incubation. FluidSpecimen S ite: RIGHT SHOULDER/ASPIRA TION [facility] HospitalCONSENT TO CONTACT FOR VOLUNTARY [id number] 19:43:51 Test Item Value Reference Range Interpretation Comments Consent To Contact For Voluntary Yes Research (test code = 4947) [facility]"
[2022-02-19 08:01] LABS: Absolute Lymphocytes (CBC) 1.3 K/uL (0.7-4.9); Hematocrit 46.4 % (36.0-45.0); Lymphocytes % 19.2 % (15.3-44.8); MPV 7.1 fL (7.6-11.3); RBC Red Blood Cell Count 5.08 M/uL (3.86-4.86)
[2022-02-19 08:27] LABS: Potassium 3.2 mmol/L (3.5-5.1)
[2022-02-19] MEDS ORDERED: ONDANSETRON 4 MG/2 ML VIAL ONE ×3 (08:35→20:11)
[2022-02-19] MEDS ORDERED: MORPHINE 4 MG/ML SYR ONE ×2 (08:35→14:51)
[2022-02-19 08:50] LABS: Troponin High Sensitivity 3642.7 pg/mL (<58.9)
--- NOTE | 2022-02-19 09:42 | RAD REPORT ---
EXAM DESCRIPTION: CT - Angio Aorta For Dissection - 02/19/2022 9:13 am CLINICAL HISTORY: . Chest and abd pain COMPARISON: 2018 TECHNIQUE: Computed tomography angiography of the chest, abdomen pelvis were obtained. 100 cc Isovue 370 was administered intravenously. Coronal and sagittal reconstruction were performed. MIP 3D reconstruction was performed All CT scans are performed using dose optimization technique as appropriate and may include automated exposure control or mA/KV adjustment according to patient size. FINDINGS: An aortic dissection is not seen. An aortic aneurysm is not displayed. With a stent has b een placed into the descending thoracic aorta. The celiac, SMA and SERGO are patent . 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 A pericardial effusion is not seen. A pleural effusion is not no theodore. The liver,spleen, pancreas,adrenals and kidneys demonstrate no significant abnormality. There no evidence diverticulitis. IMPRESSION: Negative for an aortic dissection.
--- NOTE | 2022-02-19 10:08 | ER ---
Nurse's Notes [facility] Name: Betsey Martel Age: 56 yrs Sex: Female : 1965 Arrival Date: 02/19/2022 Time: 07:38 Bed 2 Private MD: Diagnosis: NSTEMI;Back pain;Nausea with vomiting, unspecified Presentation: 02/19 07:38 Chief complaint: Patient states: "chest pain all night" EMS reports that they ss administered Nitro 0.4 x1 and 324 ASA. Coronavirus screen: Client denies travel out of the [place] in the last 14 days. Ebola Screen: Patient denies exposure to infectious person. Patient denies travel to an Ebola-affected area in the 21 days before illness onset. Initial Sepsis Screen: Does the patient meet any 2 criteria? No. Patient's initial sepsis screen is negative. Does the patient have a suspected source of infection? No. Patient's initial sepsis screen is negative. Risk Assessment: Do you want to hurt yourself or someone else? Patient reports no desire to harm self or others. Onset of symptoms was February 18, 2022. 07:38 Method Of Arrival: Ambulatory ss 07:38 Acuity: KAREN 3 ss Historical: - Allergies: 08:07 Cymbalta; ss 08:07 GABAPENTIN; ss 08:07 Seroquel; ss - PMHx: 08:07 Anemia; BRAIN TUMOR 1997; Hypothyroidism; kidney disease; Hypertension; Hip Pain; ss Chronic pain; degenerative bone disease; Depression; CHF; ETHO INTOXICATION; osteoarthritis; Rheumatoid Arthritis; GERD; THORACIC AORTIC ANEURYSM; - Immunization history:: Client reports receiving the 2nd dose of the Covid vaccine. - Social history:: Smoking status: Patient reports the use of cigarette tobacco products, smokes one-half pack cigarettes per day. Screenin:16 Abuse screen: Denies threats or abuse. Denies injuries from another. Nutritional ss screening: No deficits noted. Tuberculosis screening: Never had TB. Fall Risk None identified. Assessment: 07:38 General: Appears in no apparent distress. Behavior is calm, cooperative, Denies fever, ss feeling ill, fatigue, chills. Pain: Complains of pain in chest Pain currently is 10 out of 10 on a pain scale. Is continuous. Neuro: Level of Consciousness is awake, alert, obeys commands, Oriented to person, place, time, situation. Cardiovascular: Capillary refill < 3 seconds is brisk in bilateral fingers. Respiratory: Airway is patent Respiratory effort is even, unlabored. GI: Reports nausea, vomiting, Patient currently denies diarrhea. EENT: Derm: Skin is intact, is healthy with good turgor, Skin is dry, Skin is pink, warm \\T\\ dry. normal. Musculoskeletal: Range of motion: intact in all extremities. 07:40 Reassessment: warm blanket given upon patient request. ss 07:42 Reassessment: Purse given to patient upon request. Call light within reach. Side rails ss up x 2. 07:45 Reassessment: additional blanket given to patient as requested. 08:51 Reassessment: provider at bedside at this time going over results and plan to keep pt tw2 based on lab results. 09:59 Reassessment: provider at bedside at this time. tw2 11:35 Reassessment: pt taken via w/c to restroom at this time. pt returned to clean in tw2 hospital bed at this time, new gown placed on pt, pillows, and water given to pt at this time. pt medicated per ordered. pt states "i just want to sleep, if i am asleep, let me sleep". 19:23 General: Lab called for PTT. Heparin protocol. . tw5 Vital Signs: 07:38 BP 155 / 110; Pulse 88; Resp 16; Temp 97.8(TE); Pulse Ox 100% on R/A; Weight 58.97 kg; Height 5 ft. 6 in. (167.64 cm); Pain 10/10; 08:15 BP 147 / 109; Pulse 89; Resp 17; Pulse Ox 100% on R/A; tw2 08:51 BP 150 / 113; Pulse 91; Resp 22; Pulse Ox 99% on R/A; tw2 09:59 BP 150 / 113; Pulse 90; Resp 15; Pulse Ox 98% on R/A; tw2 11:35 BP 137 / 104; Pulse 95; Resp 17; Pulse Ox 97% on R/A; tw2 07:38 Body Mass Index 20.98 (58.97 kg, 167.64 cm) ED Course: 07:38 Patient arrived in ED. bd 07:41 Aakash Gómez DO is Attending Physician. ms3 07:45 Inserted saline lock: 22 gauge in right antecubital area, using aseptic technique. ss Blood collected. 08:07 Triage completed. ss 08:07 Arm band placed on left wrist. ss 08:16 Trinity Centeno RN is Primary Nurse. ww 08:16 Patient has correct armband on for positive identification. Placed in gown. Bed in low ss position. Call light in reach. Side rails up X2. media monitor on. Pulse ox on. NIBP on. 08:17 XRAY Chest (1 view) Sent. ww 08:27 XRAY Chest (1 view) In Process Unspecified. EDMS 09:15 Angio Aorta For Dissection In Process Unspecified. EDMS 10:06 Jayro Garcia MD is Hospitalizing Provider. ms3 12:44 Inserted saline lock: 24 gauge in left hand, using aseptic technique. ab2 19:10 Primary Nurse role handed off by Trinity Centeno RN tw5 19:10 Shira Centeno is Primary Nurse. tw5 Administered Medications: 08:35 Drug: Zofran (Ondansetron) 4 mg Route: IVP; Site: right antecubital; tw2 10:24 Follow up: Response: No adverse reaction tw2 08:38 Drug: morphine 4 mg {Note: rass 0.} Route: IVP; Site: right antecubital; tw2 10:24 Follow up: Response: No adverse reaction; Pain is unchanged, physician notified tw2 10:20 Drug: Heparin (ME Drip) 12 units/kg/hr - (HEParin 86533 units, D5W 500 ml) tw2 {Co-Signature: yady (Trinity Centeno RN).} Route: IV; Rate: calculated rate; Site: right antecubital; 20:30 Follow up: IV Status: Infusion continued upon admission tw5 10:20 Drug: Heparin (ME-Bolus with thrombolytic) - HEParin 60 units/kg {Co-Signature: yady tw2 (Trinity Centeno RN).} Route: IVP; Site: right antecubital; 20:30 Follow up: Response: No adverse reaction tw5 10:20 Drug: Dilaudid (HYDROmorphone) 1 mg Route: IVP; Site: right antecubital; tw2 20:30 Follow up: Response: No adverse reaction tw5 11:13 Drug: Ambien (zolpidem) 10 mg Route: PO; tw2 20:30 Follow up: Response: No adverse reaction tw5 Outcome: 10:07 Decision to Hospitalize by Provider. ms3 22:35 Admitted to ICU accompanied by nurse, via wheelchair, with chart, Report called to tw5 SANJUANA Med/surg nurse on the ICU floor 22:35 Condition: stable 22:35 Discharge instructions given to patient. 22:58 Patient left the ED. 5 Signatures: Dispatcher [employer] EDMS Spring Banerjee Shelby, RN RN ss Ruth Murcia, RN RN tw2 Aakash Gómez, DO ms3 Jacobo Shira tw5 Trinity Centeno, RN RN Damaso Marx RN ww Corrections: (The following items were deleted from the chart) 08:08 08:07 PMHx: ETOH; ss ss
--- NOTE | 2022-02-19 10:08 | EDPHYS ---
Physician Documentation [facility] Name: Betsey Martel Age: 56 yrs Sex: Female : 1965 Arrival Date: 02/19/2022 Time: 07:38 Bed 2 Private MD: ED Physician Aakash Gómez HPI: 02/19 07:42 This 56 yrs old Female presents to ER via Unassigned with complaints of chest pain. ms3 07:42 The patient or guardian reports chest pain that is located primarily in the substernal ms3 area. Onset: acutely, 2.5 hour(s) ago. The pain radiates to back. Associated signs and symptoms: The patient has no apparent associated signs or symptoms. The chest pain is described as Burning. Modifying factors: The symptoms are alleviated by nothing. the symptoms are aggravated by nothing. Severity of pain: At its worst the pain was severe in the emergency department the pain is unchanged. 08:33 Duration: The patient or guardian reports a single episode, that is still ongoing, and ms3 unchanged. 56-year-old female presents via [facility] for chest pain that began 2.5 hours prior to arrival. Patient states pain is 10 out of 10 radiating to her back. Patient denies alleviating or inciting factors. Patient endorses nausea and vomiting. Patient denies shortness of breath or diaphoresis.. Historical: - Allergies: 08:07 Cymbalta; ss 08:07 GABAPENTIN; ss 08:07 Seroquel; ss - PMHx: 08:07 Anemia; BRAIN TUMOR 1997; Hypothyroidism; kidney disease; Hypertension; Hip Pain; ss Chronic pain; degenerative bone disease; Depression; CHF; ETHO INTOXICATION; osteoarthritis; Rheumatoid Arthritis; GERD; THORACIC AORTIC ANEURYSM; - Immunization history:: Client reports receiving the 2nd dose of the Covid vaccine. - Social history:: Smoking status: Patient reports the use of cigarette tobacco products, smokes one-half pack cigarettes per day. ROS: 08:33 Constitutional: Negative for fever, and chills. ENT: Negative for injury, pain, and ms3 discharge, Neck: Negative for injury, pain, and swelling, Respiratory: Negative for shortness of breath, cough, wheezing, and pleuritic chest pain, Abdomen/GI: Negative for abdominal pain, nausea, vomiting, diarrhea, and constipation, Back: Negative for injury and pain, MS/Extremity: Negative for injury and deformity, Skin: Negative for injury, rash, and discoloration, Neuro: Negative for headache, weakness, numbness, tingling. 08:33 Cardiovascular: Positive for chest pain. 08:33 All other systems are negative. Exam: 07:37 ECG was reviewed by the Attending Physician. ms3 08:33 Constitutional: This is a well developed, well nourished patient who is awake, alert, ms3 and in no acute distress. Head/Face: Normocephalic, atraumatic. Eyes: Pupils equal round and reactive to light, extra-ocular motions intact. Lids and lashes normal. Conjunctiva and sclera are non-icteric and not injected. Periorbital areas with no swelling, redness, or edema. Neck: Trachea midline, no cervical lymphadenopathy. Supple, full range of motion without nuchal rigidity, or vertebral point tenderness. No Meningismus. Chest/axilla: Normal chest wall appearance and motion. Nontender with no deformity. Cardiovascular: Regular rate and rhythm with a normal S1 and S2. No gallops, murmurs, or rubs. Normal PMI, no JVD. No pulse deficits. Respiratory: Lungs have equal breath sounds bilaterally, clear to auscultation and percussion. No rales, rhonchi or wheezes noted. No increased work of breathing, no retractions or nasal flaring. Abdomen/GI: Soft, non-tender, with normal bowel sounds. No distension or tympany. No guarding or rebound. No evidence of tenderness throughout. Back: No spinal tenderness. No costovertebral tenderness. Full range of motion. Skin: Warm, dry with normal turgor. Normal color with no rashes, no lesions, and no evidence of cellulitis. MS/ Extremity: Pulses equal, no cyanosis. Neurovascular intact. Full, normal range of motion. Neuro: Awake and alert, GCS 15, oriented to person, place, time, and situation. Cranial nerves II-XII grossly intact. Motor strength 5/5 in all extremities. Sensory grossly intact. Cerebellar exam normal. Normal gait. Psych: Awake, alert, with orientation to person, place and time. Behavior, mood, and affect are within normal limits. Vital Signs: 07:38 BP 155 / 110; Pulse 88; Resp 16; Temp 97.8(TE); Pulse Ox 100% on R/A; Weight 58.97 kg; ss Height 5 ft. 6 in. (167.64 cm); Pain 10/10; 08:15 BP 147 / 109; Pulse 89; Resp 17; Pulse Ox 100% on R/A; tw2 08:51 BP 150 / 113; Pulse 91; Resp 22; Pulse Ox 99% on R/A; tw2 09:59 BP 150 / 113; Pulse 90; Resp 15; Pulse Ox 98% on R/A; tw2 11:35 BP 137 / 104; Pulse 95; Resp 17; Pulse Ox 97% on R/A; tw2 07:38 Body Mass Index 20.98 (58.97 kg, 167.64 cm) ss MDM: 07:56 Patient medically screened. ms3 08:33 Differential diagnosis: abnormal EKG, acute myocardial infarction, chest wall pain, ms3 pericarditis, pleurisy, stable angina, unstable angina. 09:33 ED course: Patient with elevated troponin. Will hold anticoagulation until CTA aorta ms3 read. Patient with chest pain that is radiating to back with hx of aortic stent.. 09:53 ED course: . ED course: Discussed case with Dr Castillo and he will consult on patient. ms3 Would like Heparin ggt.. 02/19 07:41 Order name: Basic Metabolic Panel; Complete Time: 09:46 ms3 02/19 07:41 Order name: CBC with Diff ms3 02/19 07:41 Order name: NT PRO-BNP; Complete Time: 09:46 ms3 02/19 07:41 Order name: Troponin HS; Complete Time: 09:46 ms3 02/19 10:05 Order name: COVID-19 SARS RT PCR (Document "Date of Onset" if Symptomatic) ms3 02/19 10:05 Order name: PT-INR ms3 02/19 07:41 Order name: XRAY Chest (1 view) ms3 02/19 08:53 Order name: CT Aorta for Dissection ms3 02/19 08:57 Order name: Angio Aorta For Dissection; Complete Time: 09:46 EDMS 02/19 10:05 Order name: Ptt, Activated ms3 02/19 15:22 Order name: Troponin High Sensitivity EDMS 02/19 17:45 Order name: Ptt, Activated tw2 02/19 20:11 Order name: PTT, Activated Partial Thromb EDMS 02/19 20:41 Order name: Troponin High Sensitivity EDMS 02/19 07:41 Order name: EKG; Complete Time: 07:42 ms3 02/19 07:41 Order name: Cardiac monitoring; Complete Time: 08:17 ms3 02/19 07:41 Order name: EKG - Nurse/Tech; Complete Time: 08:17 ms3 02/19 07:41 Order name: IV Saline Lock; Complete Time: 08:17 ms3 02/19 07:41 Order name: Labs collected and sent; Complete Time: 08:17 ms3 02/19 07:41 Order name: O2 Per Protocol; Complete Time: 08:17 ms3 02/19 07:41 Order name: O2 Sat Monitoring; Complete Time: 08:17 ms3 02/19 11:46 Order name: CONS Physician Consult EDMS 02/19 11:52 Order name: NPO EDMS 02/19 11:53 Order name: CL CARDIAC CATH - REQUEST EDMS EC:37 Rate is 87 beats/min. Rhythm is regular. QRS [place] is Normal. Clinical impression: NSR ms3 w/ Non-specific ST/T Changes. Interpreted by me. Administered Medications: 08:35 Drug: Zofran (Ondansetron) 4 mg Route: IVP; Site: right antecubital; tw2 10:24 Follow up: Response: No adverse reaction tw2 08:38 Drug: morphine 4 mg {Note: rass 0.} Route: IVP; Site: right antecubital; tw2 10:24 Follow up: Response: No adverse reaction; Pain is unchanged, physician notified tw2 10:20 Drug: Heparin (OH Drip) 12 units/kg/hr - (HEParin 01074 units, D5W 500 ml) tw2 {Co-Signature: yady (Trinity Centeno RN).} Route: IV; Rate: calculated rate; Site: right antecubital; 20:30 Follow up: IV Status: Infusion continued upon admission tw5 10:20 Drug: Heparin (OH-Bolus with thrombolytic) - HEParin 60 units/kg {Co-Signature: yady tw2 (Trinity Centeno RN).} Route: IVP; Site: right antecubital; 20:30 Follow up: Response: No adverse reaction tw5 10:20 Drug: Dilaudid (HYDROmorphone) 1 mg Route: IVP; Site: right antecubital; tw2 20:30 Follow up: Response: No adverse reaction tw5 11:13 Drug: Ambien (zolpidem) 10 mg Route: PO; tw2 20:30 Follow up: Response: No adverse reaction tw5 Disposition Summary: 02/19/22 10:07 Hospitalization Ordered Hospitalization Status: Inpatient Admission ms3 Provider: Jayro Garcia ms3 Condition: Stable ms3 Problem: new ms3 Symptoms: are unchanged ms3 Bed/Room Type: Standard ms3 Location: Intensive Care Unit(02/19/22 22:05) cg Room Assignment: 2-(02/19/22 22:05) cg Diagnosis - NSTEMI ms3 - Back pain ms3 - Nausea with vomiting, unspecified ms3 Forms: - Medication Reconciliation Form ms3 - SBAR form ms3 Signatures: Dispatcher [employer] EDMS Asuncion Boss RN RN Twyla Tompkins RN RN Ruth Murcia RN RN 2 Yogi Koenig RN RN ja1 Aakash Gómez DO DO ms3 Damaso Fowler Tiffany tw5 Trinity Centeno RN Corrections: (The following items were deleted from the chart) 08:08 08:07 PMHx: ETOH; ss ss 14:42 10:07 Telemetry/MedSurg (Inpatient) ms3 ab2 14:42 10:07 ms3 ab2 21:12 14:42 [facility] ER HOLD ab2 ja1 21:12 14:42 ERHOLD- ab2 ja1 22:05 21:12 Telemetry/MedSurg (Inpatient) ja1 cg 22:05 21:12 ja cg
[2022-02-19] MEDS ORDERED: HEPARIN/D5W 25,000 UNIT/500 ML BAG IV ONE (10:10)
[2022-02-19] MEDS ORDERED: HYDROMORPHONE HCL 1 MG/ML INJ ONE (10:10)
[2022-02-19 10:37] LABS: Protime INR 0.83
[2022-02-19] MEDS ORDERED: ZOLPIDEM TARTRATE 5 MG TABLET ONE (11:04)
--- NOTE | 2022-02-19 11:23 | RAD REPORT ---
EXAM DESCRIPTION: RAD - Chest Single View - 02/19/2022 8:25 am CLINICAL HISTORY: CHEST PAIN COMPARISON: Chest Single View dated 01/20/2021; Chest Single View dated 05/22/2019; Chest Single View dated 03/31/2019; Chest Single View dated 02/08/2019 FINDINGS: Lines: None. Lungs: No evidence of edema or pneumonia. Pleural: No significant pleural effusions or pneumothorax. Cardiac: Mild cardiomegaly. Bones: No acute fractures. Other: Right shoulder arthroplasty. Aortic stent graft IMPRESSION: No acute cardiopulmonary disease.
--- NOTE | 2022-02-19 13:41 | P.HP ---
Certification for Inpatient Patient admitted to: Observation With expected LOS: <2 Midnights Practitioner: I am a practitioner with admitting privileges, knowledge of patient current condition, hospital course, and medical plan of care. Services: Services provided to patient in accordance with Admission requirements found in Title 42 Section 412.3 of the Code of Federal Regulations Patient History Date of Service: 02/19/22 Reason for admission: NSTEMI History of Present Illness: 56yo F, PMH: HTN, CHF, hypothyroidism, history of CVA, thoracic aortic rupture and dissection consult possible cardiomyopathy, meningioma, chronic pain Presents to the ED due to severe chest pain that occurred around 430 this morning. The pain is described as a burning sensation as well as sensation of feeling heaviness/elephant sitting on her chest. Nothing seemed to improve or worsen this pain. She tried Pepcid and antacids. Associate with some shortness of breath. She was concern for another thoracic aorta rupture so she presented to the ER. Patient presented to the ER 3 days ago with abdominal pain, nausea/vomiting. At that time a CT abdomen/pelvis was done without any acute findings, lab work was rather unremarkable. She was discharged home after given IV fluids and some improvement. She has been unable to sleep for the last few days, her restless legs have been worse, she has not been eating much either. In the ED, she was found to have NSTEMI, with elevated troponin. Cardiology was consulted in the ER, recommended admission and heparin drip, plan for cardiac catheterization tomorrow. Allergies duloxetine HCl [From Cymbalta] Allergy (Intermediate, Verified 11/24/15 00:45) EDEMA quetiapine fumarate [From Seroquel] Allergy (Intermediate, Verified 11/24/15 00:45) EDEMA bupropion HCl [From Wellbutrin] Allergy (Verified 04/05/19 23:32) swelling Home Medications: Ropinirole HCl 2 mg PO BEDTIME 02/11/12 Hydromorphone [Dilaudid*] 4 mg PO Q6H PRN 02/26/15 Levothyroxine [Synthroid*] 50 mcg PO DAILY 02/26/15 Trazodone [Desyrel*] 150 mg PO BEDTIME 02/26/15 Atorvastatin Calcium [Lipitor*] 1 tab PO BEDTIME 04/06/19 clonazePAM [Klonopin*] 1 mg PO TID 04/06/19 Hydralazine HCl [Apresoline] 50 mg PO TID 05/23/19 carvediloL [Carvedilol] 3.125 mg PO BID 05/23/19 Amlodipine Besylate [Norvasc] 2.5 mg PO DAILY 01/21/21 Aspirin [Aspirin EC 81 MG] 81 mg PO DAILY 01/21/21 Furosemide [Lasix] 20 mg PO SEECOM #60 tab 01/21/21 Lubiprostone 24 mcg PO DAILY 01/21/21 Pantoprazole [Protonix Tab*] 40 mg PO DAILY 01/21/21 Potassium Chloride [Klor-Con M10] 10 meq PO BID #30 tab.er.prt 01/21/21 Promethazine HCl 25 mg PO BID PRN 01/21/21 - Past Medical/Surgical History Diabetic: No -: HTN, CKD -: Hypothyroidism -: osteoarthritis -: depression -: Meningioma 1986 -: Thoracic aorta [id number] -: Toracic aorata dissection 2012 -: anxiety/depression -: Takotsubo Cardiomyopathy -: Chronic systolic CHF -: CVA 09/2020, [facility] -: R knee sx -: R shoulder replacement -: X 2 -: ovarian cyst removal -: cholecystectomy -: hernia repear - Family History Mother -: Heart disease, Hypertension, Stroke, Cancer Notes: A-fib, breast cancer, blood clots Father -: Hypertension, Other (see notes) Notes: Brain disorder - Social History Smoking Status: Current every day smoker Alcohol use: No CD- Drugs: No Caffeine use: No Place of Residence: Home Review of Systems 10-point ROS is otherwise unremarkable Physical Examination - Physical Exam General: Alert, Oriented x3, Other (Appears somewhat uncomfortable) HEENT: EOMI, Sclerae nonicteric Neck: Supple, No LAD Respiratory: Clear to auscultation bilaterally, Normal air movement Cardiovascular: No edema, Regular rate/rhythm, No murmurs Gastrointestinal: Soft and benign, Non-distended, Tenderness (Moderate epigastric tenderness to palpation) Musculoskeletal: No erythema, No tenderness Integumentary: No rashes, No significant lesion Neurological: Normal speech, Normal strength at 5/5 x4 extr, Normal affect - Studies Laboratory Data (last 24 hrs) 02/19/22 07:55: PT 9.9, INR 0.83, APTT 24.1 02/19/22 07:52: WBC 6.9, Hgb 16.1 H, Hct 46.4 H, Plt Count 329 D 02/19/22 07:52: Sodium 132 L, Potassium 3.2 L, BUN 8, Creatinine 0.86, Glucose 122 H Assessment and Plan - Advance Directives Does patient have a Living Will: No Does patient have a Durable POA for Healthcare: No Physician Review Additional Text: Problem list NSTEMI HTN Chronic systolic CHF Hypothyroidism Chronic pain syndrome nicotine dependence History of thoracic aortic rupture/dissection History of meningioma History of CVA (2019) Cardiology consulted in ER Aspirin, statin, beta-parminder Heparin drip Heart healthy diet today, n.p.o. 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
[2022-02-19] MEDS ORDERED: MORPHINE 4 MG/ML SYR IV PRN (13:42)
[2022-02-19] MEDS ORDERED: HYDROCODONE/APAP 10/325 TAB PO PRN (13:42)
[2022-02-19] MEDS ORDERED: ONDANSETRON 4 MG/2 ML VIAL IV PRN (13:46)
[2022-02-19] MEDS ORDERED: HYDROMORPHONE HCL 1 MG/ML INJ IV PRN (15:14)
[2022-02-19] MEDS: SUCRALFATE 1 GM TABLET PO SCH ×2 (17:00→20:26)
[2022-02-19] MEDS ORDERED: SUCRALFATE 1 GM TABLET ONE ×2 (17:18→20:26)
[2022-02-19] MEDS: MORPHINE 15 MG IR TAB PO PRN (20:08)
[2022-02-19] MEDS ORDERED: MORPHINE 15 MG IR TAB PO ONE (20:11)
[2022-02-19] MEDS: ATORVASTATIN 20 MG TAB PO SCH (20:26)
[2022-02-19] MEDS ORDERED: METOPROLOL TAR 50 MG TAB ONE (20:26)
[2022-02-19] MEDS ORDERED: ATORVASTATIN 20 MG TAB ONE (20:26)
[2022-02-19] MEDS ORDERED: METOPROLOL TAR 50 MG TAB PO SCH (21:00)
[2022-02-19] MEDS ORDERED: HEPARIN 5000 UNIT/ML 1 ML VIAL ONE (22:15)
[2022-02-19] MEDS: HEPARIN/D5W 25,000 UNIT/500 ML BAG IV PRN (22:22)
[2022-02-20] MEDS: MORPHINE 15 MG IR TAB PO PRN ×3 (02:34→16:43)
[2022-02-20 02:55] LABS: Absolute Lymphocytes (CBC) 3.7 K/uL (0.7-4.9); Hematocrit 39.4 % (36.0-45.0); Lymphocytes % 48.3 % (15.3-44.8); MPV 7.3 fL (7.6-11.3); RBC Red Blood Cell Count 4.22 M/uL (3.86-4.86)
[2022-02-20 03:07] LABS: Bilirubin Total 0.3 mg/dL (0.2-1.0); Magnesium 2.2 mg/dL (1.8-2.4); Potassium 3.9 mmol/L (3.5-5.1); Protein, Total 5.4 g/dL (6.4-8.2)
[2022-02-20] MEDS: HEPARIN/D5W 25,000 UNIT/500 ML BAG IV PRN ×2 (04:20→09:07)
[2022-02-20] MEDS: LEVOTHYROXINE SOD 0.05 MG TABLET PO SCH (05:28)
[2022-02-20] MEDS ORDERED: NA CHLORIDE 0.9% 1,000 ML IV SCH (06:00)
--- NOTE | 2022-02-20 06:03 | P.PN ---
Date of Service: 02/20/22 Subjective: Chest pain resolved No longer nausea/vomiting. Tolerating diet Right cardiac catheterization this morning, no focal findings, no stenting/intervention required. Noted some mild flow abnormality in the mid LAD ROS: 10 point ROS as noted above, otherwise negative Physical exam GEN: Alert, oriented, NAD HEENT: Normal conjunctiva, sclera anicteric CV: Regular rate and rhythm, no edema Pulm: Non-labored respirations on room air ABD: Soft, mild discomfort in epigastrium with palpation Integumentary: No rashes Neuro: Normal speech, normal affect Problem list NSTEMI HTN Chronic systolic CHF Hypothyroidism Chronic pain syndrome nicotine dependence History of thoracic aortic rupture/dissection History of meningioma History of CVA (2019) Status post cardiac catheterization, no focal stenosis, no intervention needed Noted flow abnormality mid LAD Cardiology recommends to continue aspirin, statin, Plavix, calcium channel parminder. If patient has been taking Plavix, would switch to Brilinta. 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
[2022-02-20] MEDS ORDERED: LIDOCAINE 1% 20 ML MDV ONE (06:58)
[2022-02-20] MEDS ORDERED: HEPA 1000U/500MLS 1,000 UNIT/500 ML BAG IV ONE (06:58)
[2022-02-20] MEDS ORDERED: NA CHLORIDE 0.9% 500 ML ONE ×2 (07:04→07:24)
[2022-02-20] MEDS ORDERED: MIDAZOLAM HCL 2 MG/2 ML INJ ONE (07:19)
[2022-02-20] MEDS ORDERED: ATROPINE SULF 1 MG/10 ML SYR IV ONE (07:19)
[2022-02-20] MEDS ORDERED: FENTANYL CITR 100 MCG/2 ML ONE (07:19)
[2022-02-20] MEDS ORDERED: NA CHLORIDE 0.9% 0 ML ONE (07:20)
[2022-02-20] MEDS ORDERED: MORPHINE 4 MG/ML SYR ONE (07:41)
[2022-02-20] MEDS ORDERED: PRASUGREL (EFFIENT) 10 MG TAB ONE (07:43)
[2022-02-20] MEDS ORDERED: NITROGLYCERIN 0.4 MG/TAB SL ONE (07:48)
[2022-02-20] MEDS: PANTOPRAZOLE 40MG TABLET PO SCH (09:00)
[2022-02-20] MEDS: SUCRALFATE 1 GM TABLET PO SCH ×4 (09:00→20:07)
[2022-02-20] MEDS ORDERED: AMLODIPINE 2.5 MG TAB PO SCH (09:00)
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
--- NOTE | 2022-02-20 09:42 | OP ---
Surgeon: Lavell Ruiz MD Creative Lead: Ms. Ashley Zaidi. Admitted to Dr. Garcia on 02/19/2022 for non-STEMI. The patient was brought to the metallurgical laboratory assistant on 2021, underwent a left heart catheterization with selective coronary arteriogram. Procedure In Detail: The patient was prepped and draped in the routine sterile fashion. Given Verse d and fentanyl for sedation. Given fluids for borderline hypotension. Catheterization with Mj catheter left and right showed normal RCA, normal left main, normal circumflex. The LAD itself was n ormal without any stenosis, but it had a ANGELINE 2 flow, possibly consistent with recent thrombus. Ther e were no complications. Blood loss was 5 cc. The patient tolerated the procedure well. Postoperative Diagnoses: Normal coronaries, low flow in the LAD, possible thrombus that is not actua lly visible maybe microthrombi. Nevertheless, I gave her 60 of Effient. I gave her nitroglycerin 1 dose sublingual. I gave her morp kevon. We will continue present regimen. Consider calcium channel parminder. We will resume heparin a t least for another 24 hours. The patient has an Angio-Seal in the groin for closure. Angiography t here was normal. NB/MODL Voice ID: [id number] Report ID: [id number]
[2022-02-20] MEDS: clonazePAM 1 MG TAB PO PRN ×2 (11:01→20:07)
[2022-02-20] MEDS: DIPHENHYDRAMINE 50 MG/ML VIAL IV PRN ×2 (11:01→18:11)
[2022-02-20] MEDS: NA CHLORIDE 0.9% 1,000 ML IV SCH (13:01)
[2022-02-20] MEDS ORDERED: HEPARIN 5000 UNIT/ML 1 ML VIAL IV SCH (14:00)
[2022-02-20] MEDS: NICOTINE 14 MG/PAT TD SCH (18:55)
[2022-02-20] MEDS: ATORVASTATIN 20 MG TAB PO SCH (20:07)
[2022-02-20] MEDS ORDERED: TRAZODONE 150 MG TAB PO PRN (20:27)
[2022-02-20] MEDS ORDERED: TRAZODONE 50 MG TABLET ONE (21:18)
[2022-02-21] MEDS: NA CHLORIDE 0.9% 1,000 ML IV SCH ×3 (00:20→16:57)
[2022-02-21 04:07] LABS: Absolute Lymphocytes (CBC) 2.8 K/uL (0.7-4.9); Hematocrit 31.7 % (36.0-45.0); Lymphocytes % 51.8 % (15.3-44.8); MPV 7.5 fL (7.6-11.3)
[2022-02-21] MEDS: LEVOTHYROXINE SOD 0.05 MG TABLET PO SCH (06:15)
--- NOTE | 2022-02-21 06:56 | ECHO ---
HEIGHT: 5 ft 3 in WEIGHT: 136 lb 9.6 oz DATE OF STUDY: 02/20/[address]: Lavell Ruiz MD 2-DIMENSIONAL: YES M.MODE: YES DOPPLER: YES COLOR FLOW: YES TDS: NO PORTABLE: YES DEFINITY: NO BUBBLE STUDY: NO DIAGNOSIS: CHEST PAIN CARDIAC HISTORY: CATHERIZATION: YES SURGERY: NO PROSTHETIC VALVE: NO PACEMAKER: NO MEASUREMENTS (cm) DIASTOLIC (NORMALS) SYSTOLIC (NORMALS) IVSd 0.9 (0.6-1.2) LA Diam 2.8 (1.9-4.0) LVEF 30-35% LVIDd 4.2 (3.5-5.7) LVIDs 3.0 (2.0-3.5) %FS 28% LVPWd 1.0 (0.6-1.2) Ao Diam 2.5 (2.0-3.7) 2 DIMENSIONAL ASSESSMENT: RIGHT ATRIUM: NORMAL LEFT ATRIUM: NORMAL RIGHT VENTRICLE: NORMAL LEFT VENTRICLE: DEPRESSED FUNCTION TRICUSPID VALVE: MILD TRICUSPID REGURGITATION MITRAL VALVE: MILD MITRAL REGURGITATION PULMONIC VALVE: NORMAL AORTIC VALVE: NORMAL PERICARDIAL EFFUSION: NONE AORTIC ROOT: NORMAL LEFT VENTRICULAR WALL MOTION: ANTERIOR/APICAL SEVERE HYPOKINESIS. DOPPLER/COLOR FLOW: SEE BELOW. COMMENTS: MODERATELY DEPRESSED LEFT VENTRICULAR EJECTION FRACTION 30-35%. ANTERIOR WALL HYPOKINESIS/APICAL HYPOKINESIS. MILD MITRAL REGURGITATION, MILD TRICUSPID REGURGITATION. MODERATE DIASTOLIC DYSFUNCTION. TECHNOLOGIST: TANYA GARCIA
[2022-02-21] MEDS ORDERED: carvediloL 3.125 MG TAB PO ONE (07:00)
[2022-02-21] MEDS ORDERED: NA CHLORIDE 0.9% 500 ML IV ONE (08:10)
[2022-02-21] MEDS ORDERED: NICOTINE 14 MG/PAT TD SCH (09:00)
[2022-02-21] MEDS ORDERED: NA CHLORIDE 0.9% 500 ML ONE (09:01)
[2022-02-21] MEDS: NICOTINE 14 MG/PAT TD SCH (09:26)
[2022-02-21] MEDS: ASPIRIN EC 81 MG TAB PO SCH (09:26)
[2022-02-21] MEDS: SUCRALFATE 1 GM TABLET PO SCH ×4 (09:26→19:53)
[2022-02-21] MEDS: CLOPIDOGREL 75 MG TABLET PO SCH (09:28)
[2022-02-21] MEDS: PANTOPRAZOLE 40MG TABLET PO SCH (09:28)
[2022-02-21] MEDS: MORPHINE 15 MG IR TAB PO PRN (10:51)
--- NOTE | 2022-02-21 13:55 | P.PN ---
Date of Service: 02/21/22 Subjective: Chest pain resolved No longer nausea/vomiting. Tolerating diet Right cardiac catheterization this morning, no focal findings, no stenting/intervention required. Noted some mild flow abnormality in the mid LAD ROS: 10 point ROS as noted above, otherwise negative Physical exam GEN: Alert, oriented, NAD HEENT: Normal conjunctiva, sclera anicteric CV: Regular rate and rhythm, no edema Pulm: Non-labored respirations on room air ABD: Soft, mild discomfort in epigastrium with palpation Integumentary: No rashes Neuro: Normal speech, normal affect Problem list NSTEMI HTN Chronic systolic CHF Hypothyroidism Chronic pain syndrome nicotine dependence History of thoracic aortic rupture/dissection History of meningioma History of CVA (2019) s/p cardiac cath (02/20), no focal stenosis, no further intervention needed/done. ANGELINE 1 flow noted in LAD, possible microthrombi event, unclear Patient on heparin drip x24hrs post cath, stopped today, started plavix remains hypotensive developed chest pain again this afternoon, repeat EKG: diffuse t-wave inversions noted, further prolonged QTc discussed with Dr. Lara, cardiology. recommended restarting heparin drip, continue plavix. may need repeat cath on Thursday. Patient and family would like to be transferred to [facility] where patient's cardiothoracic surgeon and date pitter are Discussed with cardiology, recommends transfer to tertiary care center given the patient's chest pain, EKG changes, complexity of prior medical history. Patient would worsen/decompensate, we do not have the capabilities to provide ECMO, Impella, CT surgery, etc. Continue diet, patient tolerating well, no longer with nausea/vomiting CT abdomen/pelvis 3 days ago with no acute findings Continue PPI and Carafate Pain medication as needed QT prolongation, discontinue Benadryl, trazodone, Zofran. All can be contributing to QT prolongation. Beta-parminder and calcium channel parminder held secondary to hypotension. Rechecks this afternoon, patient's blood pressure was [id number] systolic after sitting up and walking around. Patient's blood pressure on recheck after laying down was back in the 90s systolic. VTE: Heparin drip Code: Full Dispo: Transfer initiated [facility]
[2022-02-21 15:22] LABS: Absolute Lymphocytes (CBC) 2.2 K/uL (0.7-4.9); Hematocrit 35.6 % (36.0-45.0); Lymphocytes % 24.6 % (15.3-44.8); MPV 7.4 fL (7.6-11.3)
[2022-02-21] MEDS: HEPARIN/D5W 25,000 UNIT/500 ML BAG IV PRN (15:44)
--- NOTE | 2022-02-21 17:54 | RAD REPORT ---
EXAM DESCRIPTION: RAD - Chest Single View - 02/21/2022 5:44 pm CLINICAL HISTORY: chest pain, s/p cath Chest pain. COMPARISON: Chest Single View dated 02/19/2022; Chest Single View dated 01/20/2021; Chest Single View dated 05/22/2019; Chest Single View dated 03/31/2019 FINDINGS: Portable technique limits examination quality. The lungs are grossly clear. The heart is normal in size. Stent is present in the aorta.Right total s houlder arthroplasty. IMPRESSION: No acute intrathoracic process suspected.
[2022-02-21 18:41] LABS: Protime INR 0.91
[2022-02-21] MEDS: ATORVASTATIN 20 MG TAB PO SCH (19:53)
[2022-02-21] MEDS: clonazePAM 1 MG TAB PO PRN (19:53)
[2022-02-21] MEDS ORDERED: BISACODYL E.C. 5 MG TAB PO ONE (20:55)
[2022-02-22] MEDS: NA CHLORIDE 0.9% 1,000 ML IV SCH ×3 (00:48→23:06)
[2022-02-22] MEDS: LEVOTHYROXINE SOD 0.05 MG TABLET PO SCH (05:24)
[2022-02-22 05:38] LABS: Absolute Lymphocytes (CBC) 2.1 K/uL (0.7-4.9); Hematocrit 32.3 % (36.0-45.0); MPV 7.3 fL (7.6-11.3); RBC Red Blood Cell Count 3.42 M/uL (3.86-4.86)
[2022-02-22 05:57] LABS: Albumin 2.2 g/dL (3.4-5.0); Bilirubin Total 0.2 mg/dL (0.2-1.0); Potassium 3.9 mmol/L (3.5-5.1); Protein, Total 4.6 g/dL (6.4-8.2)
--- NOTE | 2022-02-22 06:12 | P.PN ---
Date of Service: 02/22/22 Subjective: No further significant No shortness of breath, no nausea/vomiting, tolerating p.o. Continues with some anxiety Blood pressure improved No acute events overnight ROS: 10 point ROS as noted above, otherwise negative Physical exam GEN: Alert, oriented, anxious HEENT: Normal conjunctiva, sclera anicteric CV: Regular rate and rhythm, no edema Pulm: Non-labored respirations on room air ABD: Soft, mild discomfort in epigastrium with palpation Integumentary: No rashes Neuro: Normal speech, normal affect, str 5/5 Problem list NSTEMI HTN chronic systolic CHF; EF: Hypothyroidism Chronic pain syndrome nicotine dependence History of thoracic aortic rupture/dissection History of meningioma History of CVA (2019) TTE (02/20) moderately depressed LVEF: 30-35%. Anterior wall hypokinesis/apical hypokinesis. Mild mitral regurgitation. Mild tricuspid regurgitation. Moderate diastolic dysfunction Cardiac cath (02/20): No focal stenosis, ANGELINE 1-2 flow noted in mid-LAD, cardiology: possible microthrombi unclear; recommended continuing heparin drip for 24 hours after catheterization Patient's heparin was discontinued, she was continued on aspirin and Plavix, beta-parminder held secondary to hypotension. Later in the afternoon, she developed more severe substernal chest pressure. Repeat troponin was much improved. Repeat EKG showed diffuse T wave inversions, significantly prolonged QT. Likely secondary to all of the patient's medications she received in the previous 24 hours: Benadryl, trazodone, Zofran. Postoperatively, patient was also noted to continue with systolic blood pressures in the 90/50s, unchanged by IV fluids. Last noted EF prior records from stress test (01/21/2021) noted EF: 55%, no wall motion defects seen. 02/21 afternoon: patient placed back on heparin drip per cardiology rec ommendation. Discussed with cardiology, recommends transfer to tertiary care center given above findings and concern for possible decompensation. If patient would worsen/decompensate, we do not have the capabilities to provide ECMO, Impella, CT surgery, etc. Patient requested transfer to [facility]. Transfer was initiated 02/21 evening, patient was accepted, pending ICU bed availability. repeat EKG on 02/22: QTC improved down to 479 Continue diet, patient tolerating well, no nausea/vomiting since admission CT abdomen/pelvis 3 days prior to admission with no acute findings Continue PPI and Carafate continue home PO opioid and anxiolytic. VTE: Heparin drip Code: Full Dispo: awaiting bed availability, accepted to [facility]
[2022-02-22] MEDS: SUCRALFATE 1 GM TABLET PO SCH ×4 (07:47→19:31)
[2022-02-22] MEDS: MORPHINE 15 MG IR TAB PO PRN ×2 (07:47→19:31)
[2022-02-22] MEDS: NICOTINE 14 MG/PAT TD SCH (08:07)
[2022-02-22] MEDS: ASPIRIN EC 81 MG TAB PO SCH (08:07)
[2022-02-22] MEDS: CLOPIDOGREL 75 MG TABLET PO SCH (08:08)
[2022-02-22] MEDS: PANTOPRAZOLE 40MG TABLET PO SCH (08:08)
[2022-02-22] MEDS: DOCUSATE NA 100 MG CAP PO SCH ×2 (08:08→19:32)
[2022-02-22] MEDS: clonazePAM 1 MG TAB PO PRN ×2 (10:56→19:32)
[2022-02-22] MEDS: ATORVASTATIN 20 MG TAB PO SCH (19:32)
--- NOTE | 2022-02-22 21:58 | RAD REPORT ---
EXAM DESCRIPTION: RAD - Chest Single View - 02/22/2022 9:48 pm CLINICAL HISTORY: S/P PICC insertion COMPARISON: Chest Single View dated 02/21/2022; Chest Single View dated 02/19/2022; Chest Single View dated 01/20/2021; Chest Single View dated 05/22/2019 FINDINGS: Lines: Left subclavian approach PICC with tip overlying the distal SVC. Lungs: No evidence of edema or pneumonia. Minimal scarring in the left mid lung. Pleural: No significant pleural effusions or pneumothorax. Cardiac: The heart size is within normal limits. Bones: No acute fractures. Right shoulder arthroplasty. Other: Descending thoracic aortic endograft . IMPRESSION: No acute cardiopulmonary disease. PICC in satisfactory position with tip overlying the d istal SVC.
[2022-02-22] MEDS: HEPARIN/D5W 25,000 UNIT/500 ML BAG IV PRN (23:06)
[2022-02-23] MEDS: MORPHINE 15 MG IR TAB PO PRN ×4 (02:50→22:34)
[2022-02-23] MEDS: clonazePAM 1 MG TAB PO PRN ×2 (02:51→19:54)
[2022-02-23 04:29] LABS: Magnesium 1.7 mg/dL (1.8-2.4); Potassium 3.8 mmol/L (3.5-5.1)
[2022-02-23] MEDS: LEVOTHYROXINE SOD 0.05 MG TABLET PO SCH (05:53)
--- NOTE | 2022-02-23 06:04 | P.PN ---
Date of Service: 02/23/22 Subjective: No acute events Lower back pain from lying in bed, not ambulating much Has slight episode of increased chest pressure after sitting up Tolerating diet, no nausea/vomiting ROS: 10 point ROS as noted above, otherwise negative Physical exam GEN: Alert, oriented, anxious HEENT: Normal conjunctiva, sclera anicteric CV: Regular rate and rhythm, no edema Pulm: Non-labored respirations on room air ABD: Soft, mild discomfort in epigastrium with palpation MSK: mild tenderness to palpation in R lumbar paraspinal muscles Neuro: Normal speech, normal affect, str 5/ Problem list NSTEMI HTN chronic systolic CHF; EF: Hypothyroidism Chronic pain syndrome nicotine dependence History of thoracic aortic rupture/dissection History of meningioma History of CVA (2019) TTE (02/20) moderately depressed LVEF: 30-35%. Anterior wall hypokinesis/apical hypokinesis. Mild mitral regurgitation. Mild tricuspid regurgitation. Moderate diastolic dysfunction Cardiac cath (02/20): No focal stenosis, ANGELINE 1-2 flow noted in mid-LAD, cardiology: possible microthrombi unclear; recommended continuing heparin drip for 24 hours after catheterization Patient's heparin was discontinued, she was continued on aspirin and Plavix, beta-parminder held secondary to hypotension. Later in the afternoon, she developed more severe substernal chest pressure. Repeat troponin was much improved. Repeat EKG showed diffuse T wave inversions, significantly prolonged QT. Likely secondary to all of the patient's medications she received in the previous 24 hours: Benadryl, trazodone, Zofran. Postoperatively, patient was also noted to continue with systolic blood pressures in the 90/50s, unchanged by IV fluids. Last noted EF prior records from stress test (01/21/2021) noted EF: 55%, no wall motion defects seen. 02/21 afternoon: patient placed back on heparin drip per cardiology recommendation. Discussed with cardiology, recommends transfer to tertiary care center given above findings and concern for possible decompensation. If patient would worsen/decompensate, we do not have the capabilities to provide ECMO, Impella, CT surgery, etc. Patient requested transfer to [facility]. Transfer was initiated 02/21 evening, patient was accepted, pending ICU bed availability. repeat EKG on 02/22: QTC improved down to 479 blood pressure improving. patient is restless in room, anxious Continue diet, patient tolerating well, no nausea/vomiting since admission CT abdomen/pelvis 3 days prior to admission with no acute findings Continue PPI and Carafate continue home PO opioid and anxiolytic. VTE: Heparin drip Code: Full Dispo: awaiting bed availability, accepted to [facility] Cardiology to discuss with patient - if still here tomorrow, if patient amenable to heart cath here again
[2022-02-23] MEDS: SUCRALFATE 1 GM TABLET PO SCH ×4 (07:25→19:54)
[2022-02-23] MEDS: ASPIRIN EC 81 MG TAB PO SCH (08:01)
[2022-02-23] MEDS: DOCUSATE NA 100 MG CAP PO SCH ×2 (08:02→19:54)
[2022-02-23] MEDS: CLOPIDOGREL 75 MG TABLET PO SCH (08:02)
[2022-02-23] MEDS: PANTOPRAZOLE 40MG TABLET PO SCH (08:02)
[2022-02-23] MEDS: NICOTINE 14 MG/PAT TD SCH (08:03)
[2022-02-23] MEDS ORDERED: MELATONIN 5 MG TABLET PO PRN (19:38)
[2022-02-23] MEDS: ATORVASTATIN 20 MG TAB PO SCH (19:54)
[2022-02-24] MEDS: clonazePAM 1 MG TAB PO PRN ×2 (03:06→21:37)
[2022-02-24] MEDS: LEVOTHYROXINE SOD 0.05 MG TABLET PO SCH (05:25)
[2022-02-24 05:39] VITALS: BMI 27.3
[2022-02-24 05:40] LABS: Hematocrit 31.1 % (36.0-45.0); MPV 7.7 fL (7.6-11.3); RBC Red Blood Cell Count 3.29 M/uL (3.86-4.86)
[2022-02-24 05:50] LABS: Magnesium 1.9 mg/dL (1.8-2.4); Potassium 4.4 mmol/L (3.5-5.1)
--- NOTE | 2022-02-24 05:57 | P.PN ---
Date of Service: 02/24/22 Subjective: patient refused NPO / cath this morning intermittent chest pain, no severe episodes swelling in b/l thighs/hips, feels slightly more on right ROS: 10 point ROS as noted above, otherwise negative Physical exam GEN: Alert, oriented, NAD HEENT: Normal conjunctiva, sclera anicteric CV: Regular rate and rhythm, trace b/l LE edema, trace up to thighs Pulm: Non-labored respirations on room air ABD: Soft, minimal discomfort in epigastrium with palpation Neuro: Normal speech, normal affect, str 5/5 Problem list NSTEMI HTN chronic systolic CHF; EF: Hypothyroidism Chronic pain syndrome nicotine dependence History of thoracic aortic rupture/dissection History of meningioma History of CVA (2019) TTE (02/20) moderately depressed LVEF: 30-35%. Anterior wall hypokinesis/apical hypokinesis. Mild mitral regurgitation. Mild tricuspid regurgitation. Moderate diastolic dysfunction Cardiac cath (02/20): No focal stenosis, ANGELINE 1-2 flow noted in mid-LAD, cardiology: possible microthrombi unclear; recommended continuing heparin drip for 24 hours after catheterization Patient's heparin was discontinued, she was continued on aspirin and Plavix, beta-parminder held secondary to hypotension. Later in the afternoon, she developed more severe substernal chest pressure. Repeat troponin was much improved. Repeat EKG showed diffuse T wave inversions, significantly prolonged QT. Likely secondary to all of the patient's medications she received in the previous 24 hours: Benadryl, trazodone, Zofran. Postoperatively, patient was also noted to continue with systolic blood pressures in the 90/50s, unchanged by IV fluids. Last noted EF prior records from stress test (01/21/2021) noted EF: 55%, no wall motion defects seen. 02/21 afternoon: patient placed back on heparin drip per cardiology recommendation. Discussed with cardiology on 02/21, recommended transfer to tertiary care center given above findings and concern for possible decompensation. If patient would worsen/decompensate, we do not have the capabilities to provide ECMO, Impella, CT surgery, etc. Patient requested transfer to [facility]. Transfer was initiated. 02/21 evening, patient was accepted, pending ICU bed availability. repeat EKG on 02/22: QTC improved down to 479 Patient much more stable now, vitals better over last 48hrs. ok to downgrade to telemetry will update [facility], and try different hospital systems for transfer if patient amenable, since refusing cath here today check RLE venous/arterial U/S Continue diet, patient tolerating well, no nausea/vomiting since admission CT abdomen/pelvis 3 days prior to admission with no acute findings Continue PPI and Carafate continue home PO anxiolytic. She believes morphine is causing her to itch, will switch to dilaudid (previously taking at home) BAND SALVAGER reviewed. VTE: Heparin drip Code: Full Dispo: awaiting bed availability, accepted to [facility]; will try different health systems
[2022-02-24] MEDS: SUCRALFATE 1 GM TABLET PO SCH ×4 (07:28→19:34)
[2022-02-24] MEDS: HEPARIN/D5W 25,000 UNIT/500 ML BAG IV PRN (07:28)
[2022-02-24] MEDS: PANTOPRAZOLE 40MG TABLET PO SCH (07:28)
[2022-02-24] MEDS: DOCUSATE NA 100 MG CAP PO SCH ×2 (07:28→19:33)
[2022-02-24] MEDS: NICOTINE 14 MG/PAT TD SCH (07:29)
[2022-02-24] MEDS: ASPIRIN EC 81 MG TAB PO SCH (07:29)
[2022-02-24] MEDS: CLOPIDOGREL 75 MG TABLET PO SCH (07:29)
--- NOTE | 2022-02-24 13:58 | RAD REPORT ---
EXAM DESCRIPTION: US - Extremity Venous Uni Ltd - 02/24/2022 1:45 pm CLINICAL HISTORY: R/O DVT Leg swelling and edema. COMPARISON: Extremity Nonvascular Complete dated 02/24/2022 FINDINGS: Right lower extremity venous system was interrogated with Doppler technique. Normal flow, compressibility and augmentation was noted. There is no DVT present. IMPRESSION: No evidence of right lower extremity deep venous thrombosis.
--- NOTE | 2022-02-24 13:58 | RAD REPORT ---
EXAM DESCRIPTION: US - Extremity Nonvascular Complete - 02/24/2022 1:45 pm CLINICAL HISTORY: R/O HEMATOMA Pain and swelling COMPARISON: Extremity Venous Uni Ltd dated 01/20/2021 TECHNIQUE: Real-time sonographic evaluation of the area of interest was performed. FINDINGS: Prominent 2 cm groin lymph node on the right noted. A hematoma is not identified in the ri ght groin.
--- NOTE | 2022-02-24 13:59 | RAD REPORT ---
EXAM DESCRIPTION: US - Lower Extremity Artery Uni Ltd - 02/24/2022 1:45 pm CLINICAL HISTORY: Eval for poss. hematoma S/P cath Leg pain and swelling COMPARISON: No comparisons FINDINGS: Grayscale, color and Doppler interrogation of the right lower extremity arterial system wa s performed. Triphasic waveforms are seen throughout the right lower extremity arterial system. No stenosis or occ lusion of significance. IMPRESSION: No right lower extremity arterial flow abnormality.
[2022-02-24] MEDS ORDERED: HYDROMORPHONE ORAL 4 MG TAB PO PRN (14:31)
[2022-02-24] MEDS: ATORVASTATIN 20 MG TAB PO SCH (19:34)
[2022-02-24] MEDS ORDERED: ONDANSETRON 4 MG/2 ML VIAL IV PRN (22:01)
[2022-02-25 04:54] LABS: Absolute Lymphocytes (CBC) 1.1 K/uL (0.7-4.9); Hematocrit 28.7 % (36.0-45.0); Lymphocytes % 16.8 % (15.3-44.8); MPV 7.3 fL (7.6-11.3)
[2022-02-25 05:09] VITALS: O2SAT 99
[2022-02-25] MEDS: LEVOTHYROXINE SOD 0.05 MG TABLET PO SCH (06:11)
[2022-02-25] MEDS: SUCRALFATE 1 GM TABLET PO SCH (08:56)
[2022-02-25] MEDS: ASPIRIN EC 81 MG TAB PO SCH (08:56)
[2022-02-25] MEDS: CLOPIDOGREL 75 MG TABLET PO SCH (08:56)
[2022-02-25] MEDS: PANTOPRAZOLE 40MG TABLET PO SCH (08:56)
[2022-02-25] MEDS: DOCUSATE NA 100 MG CAP PO SCH (08:56)
[2022-02-25] MEDS: NICOTINE 14 MG/PAT TD SCH (08:59)
[2022-02-25] MEDS: clonazePAM 1 MG TAB PO PRN (09:58)
--- NOTE | 2022-02-25 10:34 | P.DS ---
Admission Date: 02/19/22 Discharge Date: 02/25/22 Disposition: ROUTINE DISCHARGE Discharge Condition: FAIR Reason for Admission: NSTEMI Brief History of Present Illness: 56yo F, PMH: HTN, CHF, hypothyroidism, history of CVA, thoracic aortic rupture and dissection consult possible cardiomyopathy, meningioma, chronic pain Presents to the ED due to severe chest pain. She tried Pepcid and antacids without improvement. Symptoms are associated with shortness of breath. She was concerned for another thoracic aorta rupture so she presented to the ER. Patient presented to the ER 3 days prior with abdominal pain, nausea/vomiting. At that time a CT abdomen/pelvis was done without any acute findings, lab work was rather unremarkable. She was discharged home after given IV fluids and some improvement. She has been unable to sleep when she got home. Her restless legs wasworse. In the ED, she was found to have NSTEMI, with elevated troponin. Cardiology was consulted in the ER, who recommended admission and heparin drip. Patient was admitted for further management. Hospital Course: NSTEMI HTN chronic systolic CHF; EF: Hypothyroidism Chronic pain syndrome nicotine dependence History of thoracic aortic rupture/dissection History of meningioma History of CVA (2019) TTE (02/20) moderately depressed LVEF: 30-35%. Anterior wall hypokinesis/apical hypokinesis. Mild mitral regurgitation. Mild tricuspid regurgitation. Moderate diastolic dysfunction Cardiac cath (02/20): No focal stenosis, ANGELINE 1-2 flow noted in mid-LAD, cardiology: possible microthrombi unclear; recommended continuing heparin drip for 24 hours after catheterization Patient's heparin was discontinued, she was continued on aspirin and Plavix, beta-parminder held secondary to hypotension. Later in the afternoon, she developed substernal chest pressure. Repeat troponin was much improved. Repeat EKG showed diffuse T wave inversions, significantly prolonged QT. Likely secondary to all of the patient's medications she received in the previous 24 hours: Benadryl, trazodone, Zofran. Postoperatively, patient was also noted to continue with systolic blood pressures in the 90/50s. Last noted EF prior records from stress test (01/21/2021) noted EF: 55%, no wall motion defects seen. 02/21 afternoon: patient placed back on heparin drip per cardiology recommendation. Discussed with cardiology on 02/21, recommended transfer to tertiary care center given above findings and concern for possible decompensation. If patient would worsen/decompensate, we do not have the capabilities to provide ECMO, Impella, CT surgery, etc. Patient requested transfer to [facility]. Transfer was initiated. Was accepted for transfer but never got a bed. Patient's symptoms and vitals became more stable. Seen by cardiology today and deemed stable for discharge. Patient is informed to follow-up with her perinatology physician for further management. Vital Signs/Physical Exam: Temp Pulse Resp BP Pulse Ox 98.6 F 76 19 134/53 L 91 02/25/22 00:00 02/25/22 04:00 02/25/22 04:00 02/25/22 04:00 02/25/22 00:00 General: Alert, In no apparent distress, Oriented x3 HEENT: Mucous membr. moist/pink Neck: JVD not distended Respiratory: Clear to auscultation bilaterally, Normal air movement Cardiovascular: No edema, Regular rate/rhythm, Normal S1 S2 Gastrointestinal: Normal bowel sounds, Soft and benign, Non-distended Musculoskeletal: No swelling Integumentary: No rashes Neurological: Normal strength at 5/5 x4 extr Laboratory Data at Discharge: WBC 6.5 K/uL (4.3-10.9) D 02/25/22 04:45 Hgb 10.1 g/dL (12.0-15.0) L 02/25/22 04:45 Hct 28.7 % (36.0-45.0) L 02/25/22 04:45 Plt Count 180 K/uL (152-406) 02/25/22 04:45 PT 10.0 SECONDS (9.5-12.5) 02/21/22 15:09 INR 0.91 02/21/22 15:09 APTT 78.0 SECONDS (24.3-36.9) H 02/25/22 01:06 Sodium 139 mmol/L (136-145) 02/24/22 05:15 Potassium 4.4 mmol/L (3.5-5.1) 02/24/22 05:15 BUN 13 mg/dL (7-18) 02/24/22 05:15 Creatinine 0.81 mg/dL (0.55-1.3) 02/24/22 05:15 Glucose 94 mg/dL (74-106) 02/24/22 05:15 Magnesium 1.9 mg/dL (1.8-2.4) 02/24/22 05:15 Total Bilirubin 0.2 mg/dL (0.2-1.0) 02/22/22 05:26 AST 10 U/L (15-37) L 02/22/22 05:26 ALT 16 U/L (12-78) 02/22/22 05:26 Alkaline Phosphatase 84 U/L (45-117) 02/22/22 05:26 Home Medications: Ropinirole HCl 2 mg PO BEDTIME 02/11/12 Levothyroxine [Synthroid*] 50 mcg PO DAILY 02/26/15 Trazodone [Desyrel*] 150 mg PO BEDTIME 02/26/15 Atorvastatin Calcium [Lipitor*] 1 tab PO BEDTIME 04/06/19 clonazePAM [Klonopin*] 1 mg PO TID 04/06/19 carvediloL [Carvedilol] 3.125 mg PO ONCE 05/23/19 Aspirin [Aspirin EC 81 MG] 81 mg PO DAILY 01/21/21 Furosemide [Lasix*] 20 mg PO SEECOM #60 tab 01/21/21 Lubiprostone 24 mcg PO DAILY 01/21/21 Pantoprazole [Protonix Tab*] 40 mg PO DAILY 01/21/21 Promethazine HCl 25 mg PO BID PRN 01/21/21 Potassium Chloride [Klor-Con M10] 10 meq PO ONCE 02/20/22 Tapentadol HCl [Nucynta] 100 mg PO Q6H 02/22/22 Clopidogrel Bisulfate [Plavix*] 75 mg PO DAILY #30 tablet 02/25/22 Lisinopril [Zestril] 2.5 mg PO DAILY #30 tablet 02/25/22 Nicotine [Nicoderm*] 14 mg TD DAILY #30 patch.td24 02/25/22 Sucralfate [Carafate*] 1 gm PO ACHS #30 tab 02/25/22 New Medications: Sucralfate [Carafate*] 1 gm PO ACHS #30 tab Nicotine [Nicoderm*] 14 mg TD DAILY #30 patch.td24 Clopidogrel Bisulfate [Plavix*] 75 mg PO DAILY #30 tablet Lisinopril [Zestril] 2.5 mg PO DAILY #30 tablet Physician Discharge Instructions: follow up with your perinatology physician within 1 week. Diet: AHA Activity: Ad alize Followup: NONE,NONE [Primary Care Provider] - 1 Week Time spent managing pt's care (in minutes): 36
[2022-02-25 10:51] VITALS: BP 136/64; TEMP 97.4
--- NOTE | 2022-02-27 11:54 | PN ---
Date of Progress Note: 02/25/2022 Subjective: Ms. Martel was seen by me for non-ST elevation myocardial infarction. Catheterization showed normal coronaries with slow flow in the LAD. She was basically heparinized. Placed on aspiri n, heparin, statin, and today she is completely asymptomatic. She wants to go home. She will follow up with Dr. Renny Luna in the very near future. She had been very stable. She did not have any arrhythmias. Objective: Vital Signs: Stable. She remained in sinus rhythm. Chest: Clear. Extremities: Leg shows no edema. Final Impression: The patient with multiple cardiac risk factors, Non-ST segment elevation myocardia l infarction. Coronaries were normal except for slow flow in the LAD, probably secondary to microemb felipe. Treated with aspirin, heparin, and Plavix. Asymptomatic. Discharge today. Continue present erick esposito. 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 JUDY/GENARO Voice ID: [id number] Report ID: [id number]
== END 2022-02-25 11:30 | disposition home or self-care (01) | DRG 281 ==
LOC: ER 07:37 → ERHOLD 11:39 → OBSVTOIN 19:06 → 3RD-ICU 22:30
PROVIDERS: ADMIT Hospitalist; ATTEND Hospitalist
PROC: B201YZZ Plain Radiography of Multiple Coronary Arteries using Other Contrast (ICD-10-PCS; principal; 2022-02-20)
PROC: 02HV33Z Insertion of Infusion Device into Superior Vena Cava, Percutaneous Approach (ICD-10-PCS; 2022-02-22)
DX: I21.4 Non-ST elevation (NSTEMI) myocardial infarction (principal); I50.22 Chronic systolic (congestive) heart failure; N17.9 Acute kidney failure, unspecified; I25.10 Atherosclerotic heart disease of native coronary artery without angina pectoris; E03.9 Hypothyroidism, unspecified; G25.81 Restless legs syndrome; I11.0 Hypertensive heart disease with heart failure; G89.4 Chronic pain syndrome; I95.9 Hypotension, unspecified; M06.9 Rheumatoid arthritis, unspecified; K21.9 Gastro-esophageal reflux disease without esophagitis; F17.210 Nicotine dependence, cigarettes, uncomplicated; Z86.73 Personal history of transient ischemic attack (TIA), and cerebral infarction without residual deficits; Z20.822 Contact with and (suspected) exposure to COVID-19
CPT/HCPCS: 36415; 36569; 71045; 71275; 74175; 74176; 76881; 80048; 80053; 80307; 81003; 81015; 81025; 82947; 83690; 83735; 83880; 84484; 85025; 85027; 85610; 85730; 87086; 87088; 93005; 93306; 93454; 93926; 93971; 94760; 96361; 96365; 96366; 96374; 96375; 99284; 99285; C1760; C1893; G0269; G0378; J0583; J1170; J1200; J1644; J2250; J2405; J3010; J3490; J7030; J7040; Q9966; Q9967; U0003

== ENCOUNTER 2022-07-20 03:35 | Emergency (ER) | payer OTHER ==
--- OUTSIDE RECORDS SUMMARY | 2022-07-20 03:46 | XMS REPORT | Continuity of Care Document ---
:1965 Author Organization [facility] t Address [address] [place] [address] Care Team Providers Name Role Phone Gibran Owens Paulie Primary Care Physician GERALD MCKEON Attending Clinician Unavailable Petra TAYLOR, Manuel Lutz Attending Clinician JOSEPH CARRANZA Attending Clinician Unavailable EMILY ZABALA Attending Clinician Unavailable Doctor Unassigned, [place] Attending Clinician Unavailable Only, Ang Db Test Attending Clinician Unavailable Sandip Suarez Attending Clinician SANDIP RUIZ Attending Clinician Unavailable Pob, Adc Lab Main Attending Clinician Unavailable Beau Romero MD Attending Clinician BEAU ROMERO Attending Clinician Unavailable Tae Salazar MD Attending Clinician Fartun Valdez Attending Clinician [phone] Isabel Snow MD Attending Clinician Eduardo TAYLOR, Goyo Still Attending Clinician GOYO CLARK Attending Clinician Unavailable GOYO CLARK Attending Clinician Unavailable CECELIA SIMMONS Attending Clinician Unavailable Obed BENJAMIN, Chelsey Attending Clinician Unavailable Steven Maloney MD Attending Clinician Berto TAYLOR, Renzo Sanford Attending Clinician Krish BENJAMIN, Christian Attending Clinician Unavailable BALJIT COPELAND Attending Clinician Unavailable Baljit Copeland DO Attending Clinician KRAIG SUAREZ Attending Clinician Unavailable LASHAWN BOLES Attending Clinician Unavailable Lab, Adc Fam Pob I Attending Clinician Unavailable Omisaac ENGINEERING OFFICERSara Fish Attending Clinician Billy Zheng Attending Clinician OMISAAC, OMAYEMI Attending Clinician Unavailable Annika Sandoval PA-C Attending Clinician ANNIKA SANDOVAL Attending Clinician Unavailable KELLI SMITH Attending Clinician Unavailable MICHELINE ORTIZ Attending Clinician Unavailable Isabell Diaz RN Attending Clinician Unavailable Manuel Lambert MD Admitting Clinician WANDA CRESPO Admitting Clinician Unavailable SAMANTHA ONOFRE Admitting Clinician Unavailable Payers Payer Name Policy Type Policy Number Effective Date Expiration Date S alejandroce MEDICAID OF [place] [id number] 2006 00:00:00 [facility] DUAL [id number] 2021 COMP HMO D SNP 00:00:00 [facility] WELLMED [id number] 2020 2024 00:00:00 00:00:00 Problems Condition Condition Condition Status Onset Resolution Last Treating Co mments Source Name Details Category Date Date Treatment Clinician Date Opioid Opioid Condition Active 2022-01-01 Me moria abuse with abuse with 04-02 22:03:05 l intoxicati intoxicati 00:00: He rmann on with on with 00 complicati complicati on on Active 04/02/2021 01/01/2022 [facility] Pain due Pain due Disease Active Metho di to to 2-04 st internal internal 00:00: Hospit a orthopedic orthopedic 00 l prosthetic prosthetic devices, devices, implants implants and and grafts, grafts, initial initial encounter encounter Hypertroph Hypertroph Disease Active M ethodi y of bone, y of bone, 8-13 st right right 00:00: Hospita humerus humerus 00 l Depression Depressio Finding Active 2016-112019-05-25 Memoria n Active 11-28 16:12:55 l 09/28/2017 00:00: Salvatore n Finding 00 05/25/[address] [facility] Osteoarthr Osteoarth Finding Active 2016-112019-05-25 Memoria itis ritis 11-28 16:12:55 l Active 00:00: [place] 09/28/2017 00 Finding 05/25/[address] [facility] Acute Acute Finding Active 2016-112019-05-25 Memor ia bronchitis bronchitis 11-28 16:12:55 l Active 00:00: Mohan 09/28/2017 00 Finding 05/25/[address] [facility] Chronic Chronic Finding Active 2016-112019-05-25 Me moria pain pain 11-28 16:12:55 l syndrome syndrome 00:00: Salvatore n Active 00 09/28/2017 Finding 05/25/[address] [facility] Hypertensi Hypertens Finding Active 2016-112019-05-25 Memoria on ion Active 11-28 16:12:55 l 00:00: Salvatore mazariegos 7 Finding 00 05/25/[address] [facility] Hyperkalem Hyperkale Finding Active 2016-112019-05-25 Memoria ia katty Active 11-28 16:12:55 l 09/28/2017 00:00: Salvatore n Finding 00 05/25/2019 [facility] Screening Screening Disease Active Uni vers for for 08-04 ity of osteoporos osteoporos 00:00: Te madelaine is is 00 Medical Branch Flu Flu Condition Active 2022-01-01 Mem oria vaccine vaccine 08-04 22:03:05 l need need 00:00: Mohan Active 08/04/2016 01/01/2022 [facility] Postnasal Postnasal Condition Active 2022-01-01 Memoria drip drip 08-04 22:03:05 l Active 00:00: [place] 08/04/2016 00 01/01/2022 [facility] Diverticul Diverticu Finding Active 2019-05-25 Memoria itis litis 11-26 16:12:55 l Active 00:00: [place] 11/26/2015 00 Finding 05/25/2019 [facility] [place] Colitis Colitis Finding Active 2019-05-25 Me moria Active 11-26 16:12:55 l 11/26/2015 00:00: Salv[place] n Finding 00 05/25/2019 [facility] [place] Intractabl Intractab Finding Active 2019-05-25 Memoria e vomiting le 11-26 16:12:55 l vomiting 00:00: [place] Active 00 11/26/2015 Finding 05/25/2019 [facility] [place] Pure Pure Condition Active 2022-01-01 Mem oria hyperchole hyperchole 07-03 22:03:05 l sterolemia sterolemia 00:00: He rmann Active 07/03/2015 01/01/2022 [facility] Chronic Chronic Condition Active 2022-01-01 Memoria renal renal 7- 22:03:05 l insufficie insufficie 00:00: He rmann ncy ncy Active 5 01/01/2022 [facility] Chronic Chronic Condition Active 2022-01-01 Memoria pain pain 7-14 22:03:05 l Active 00:00: [place] 05/22/2015 00 [facility] Elevated Elevated Condition Active 2022-01-01 Memoria MCV MCV Active 05-22 22:03:05 l 05/22/2015 00:00: Salvatore mazariegos 01/01/2022 00 [facility] Multiple Multiple Condition Active 2022-01-01 Memoria thyroid thyroid - 22:03:05 l nodules nodules 00:00: [place] Active 01/04/2015 01/01/2022 [facility] Right Right Condition Active 2022-01-01 Mem oria thyroid thyroid 01-04 22:03:05 l nodule nodule 00:00: Mohan Active 01/04/2015 01/01/2022 [facility] HLD HLD Condition Active 2022-01-01 Mem oria (hyperlipi (hyperlipi 01-04 22:03:05 l demia) demia) 00:00: Mohan Active 00 01/04/2015 01/01/2022 [facility] Hypothyroi Hypothyro Condition Active 2022-01-01 Memoria dism idism 01-02 22:03:05 l Active 00:00: [place] 01/02/201501/01/2022 [facility] Major Major Condition Active 2022-01-01 Mem oria depressive depressive - 22:03:05 l disorder, disorder, 00:00: Herm gabriel recurrent recurrent 00 episode, episode, severe severe Active 11/30/2006 2 [facility] Essential Essential Condition Active 2022-01-01 Memoria hypertensi hypertensi - 22:03:05 l on, benign on, benign 00:00: He rmann Active 00 11/27/2006 [facility] OTHER OTHER Condition Active 2022-01-01 Mem oria DIAGNOSIS DIAGNOSIS - 22:03:05 l - PLEASE - PLEASE 00:00: Salvatore mazariegos ANNOTATE. ANNOTATE. 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 Active 06/20/2021 [facility] Transient Transient Diagnosis Active 2021-06-20 Memoria alteration alteration 18:43:04 l of of Mohan awareness awareness Active 06/20/2021 [facility] Cerebrovas Cerebrova Diagnosis Active 2021-03-07 Memoria cular scular 17:37:41 l disease disease [place] Active 03/07/2021 [facility] Seizure Seizure Diagnosis Active 2021-03-07 Memoria cerebral cerebral 17:37:41 l Active [place] 03/07/2021 [facility] Weakness Weakness Diagnosis Active 2021-04-03 Memoria Active 22:50:11 l 04/03/2021 [facility] Hypoxia Hypoxia Diagnosis Active 2021-04-03 Memoria Active 22:50:11 l 04/03/2021 [facility] Urinary Urinary Diagnosis Active 2021-04-03 Memoria tract tract 22:50:11 l infection infection Herm gabriel without without hematuria, hematuria, site site unspecifie unspecifie d d Active 04/03/2021 [facility] Cervicalgi Cervicalg Diagnosis Active 2021-09-17 Memoria a ia Active 23:31:03 l 09/17/2021 [facility] Acute Acute Finding Active 2019-05-25 Memor ia encephalop encephalop 16:12:55 l genesis Maryann Active Finding 05/25/[address] [facility] CKD CKD Finding Active 2019-05-25 Memor ia (chronic (chronic 16:12:55 l kidney kidney Mohan disease) disease) stage 3, stage 3, GFR 30-59 GFR 30-59 ml/min ml/min Active Finding 05/25/2019 [facility] [place] History of History Finding Active 2019-05-25 Memoria total of total 16:12:55 l right knee right knee He rmann replacemen replacemen t t Active Finding 05/25/[address] [facility] Leukocytos Leukocyto Finding Active 2019-05-25 Memoria is sis Active 16:12:55 l Finding Mohan 05/25/[address] [facility] Tobacco Tobacco Finding Active 2019-05-25 Me moria abuse abuse 16:12:55 l Active Mohan Finding 05/25/[address] [facility] Acute Acute Finding Active 2019-05-25 Memor ia renal renal 16:12:55 l failure failure Mohan superimpos superimpos ed on ed on stage 4 stage 4 chronic chronic kidney kidney disease disease Active Finding 05/25/[address] [facility] Acute on Acute on Finding Active 2019-05-25 Memoria chronic chronic 16:12:55 l systolic systolic Salvatore n congestive congestive heart heart failure failure Active Finding 05/25/[address] [facility] [place] Volume Volume Finding Active 2019-05-25 Mj chadwick depletion depletion 16:12:55 l Active [place] Finding 05/25/[address] [facility] Allergies, Adverse Reactions, Alerts Allergy Allergy Status Severity Reaction(s) Onset Inactive Treating Comm ents Source Name Type Date Date Clinician Gabapent Propensi Active Other (See Swelling Methodi in ty to Comments) 12-11 / feet st adverse 00:00: Hospita reaction 00 l s to drug Nsaids Propensi Active Other (See Swelling Me thodi (Non-Lasha ty to Comments) 12-11 / Hx - st roidal adverse 00:00: CKD Hospita Anti-Inf reaction 00 l lammator s to y Drug) drug Nsaids Propensi Active Other (See Swelling Me thodi (Non-Lasha ty to Comments) 12-11 / Hx - st roidal adverse 00:00: CKD Hospita Anti-Inf reaction 00 l lammator s to y Drug) drug Varenicl Propensi Active GI Severe Method i ine ty to Intolerance 8-[address] adverse 00:00: /vomiting Hospit a reaction 00 l s to drug bupropio bupropio Active Memori a n HCl n HCl 5-28 l 00:00: Mohan 00 Duloxeti Propensi Active Swelling Meth geovani ne ty to 711 st adverse 00:00: Hospita reaction 00 l s to drug Quetiapi Propensi Active Swelling Meth geovani ne ty to 7-11 st adverse 00:00: Hospita reaction 00 l s to drug Bupropio Propensi Active Other (See 2018-0 Become Me thodi n Hcl ty to Comments) 7-[address] adverse 00:00: angry Hospita reaction 00 l s to drug duloxeti duloxeti Active Moderate Mj chadwick ne HCl ne HCl 1-16 l 00:00: Mohan quetiapi quetiapi Active Moderate Mj chadwick ne ne 1-16 l fumarate fumarate 00:00: Salvatore n Duloxeti Duloxeti Active Swelling 0 Mj chadwick ne ne 2-24 l 00:00: Mohan Quetiapi Quetiapi Active Swelling Mj chadwick ne ne 2-24 l Fumarate Fumarate 00:00: Salvatore n Bupropio Bupropio Active Swelling 2014-0 Mj chadwick n Hcl n Hcl 2-24 l 00:00: [place] Duloxeti Propensi Active Swelling 2014-0 Univ ers ne ty to 2-24 ity of adverse 00:00: [place] reaction 00 Medical s Branch Quetiapi Propensi Active Swelling 0 Univ ers ne ty to 2-24 ity of Fumarate adverse 00:00: [place] reaction 00 Medical s Branch Bupropio Propensi Active Swelling 0 Univ ers n Hcl ty to 2-24 ity of adverse 00:00: [place] reaction 00 Medical s Branch DULOXETI DRUG Active Swelling 2014-0 Univer s NE INGREDI 2-24 ity of 00:00: [place] 00 Medical Branch QUETIAPI DRUG Active Swelling 2014-0 Univer s NE INGREDI 2-24 ity of FUMARATE 00:00: [place] [facility] BUPROPIO DRUG Active Swelling 2014-0 Univer s N HCL INGREDI 2-24 ity of 00:00: [place] 00 Medical Branch Social History Social Habit Start Date Stop Date Quantity Comments Source Exposure to Not sure [facility] SARS-CoV-2 (event) [facility] History of tobacco Cigarette Smoker [facility] use [facility] History [facility] o f Alcohol Frequency [facility] History [facility] o f Alcohol Std Drinks [facility] History [facility] o f Alcohol Binge [facility] al Branch Alcohol intake 2020-12-14 2020-12-14 Ex-drinker [facility] 00:00:00 00:00:00 (finding) Hospital Cigarettes smoked 2020-12-11 2020-12-11 [facility] current (pack per 00:00:00 00:00:00 Hospita l ) - Reported Cigarette 2020-12-11 2020-12-11 [facility] pack-years 00:00:00 00:00:00 Hospital Tobacco use and 2020-12-11 2020-12-11 Smokeless [facility] exposure 00:00:00 00:00:00 tobacco non-user Hospital Alcohol Comment 2015-12-25 2015-12-25 Social Drinker Unive rsity of 00:00:00 00:00:00 [facility] Sex [birth year] At [birth year] LAY[facility] Michael kes 00:00:00 [facility]00 [facility] Smoking Status Start Date Stop Date Source Tobacco smoking consumption unknown [facility] Social History 2021-05-31 00:00:00 [facility] Light tobacco smoker 2020-12-11 00:00:00 [facility] Medications Ordered Filled Start Stop Current Ordering Indication Dosage Frequency Signature Comments Components Source Medication Medication Date Date Medication? Clinician (SIG) Name Name pantoprazol Yes Take 40 mg Memoria e 2-23 by mouth l (PROTONIX) 22:03: daily. Donna nn 40 mg EC 05 tablet citalopram Yes Take 20 mg M emoria (CELEXA) 20 2-23 by mouth l mg tablet 22:03: daily. Salvatore n 05 traZODONE Yes Take 50 mg Me moria (DESYREL) 2-23 by mouth l 50 mg 22:03: at Mohan tablet 05 bedtime. rOPINIRole Yes Take 2 mg Me moria (REQUIP) 2 2-23 by mouth l mg tablet 22:03: at [place] 05 bedtime. tiZANidine Yes Take 2 mg Me moria (ZANAFLEX) 2-23 by mouth 2 l 2 mg 22:03: (two) Mohan capsule 05 times daily as needed for Muscle Spasms. DOCUSATE Yes Take 1 Tab Mem oria CALCIUM 2-23 by mouth l (STOOL 22:03: as needed Salvatore n SOFTENER 05 for ORAL) Constipati on. aspirin 81 Yes Take 81 mg M emoria mg EC 2-23 by mouth l tablet 22:03: daily. acetaminoph Yes Take by Mem oria en 2-23 mouth l (TYLENOL) 22:03: every 6 Donna nn 325 mg 05 (six) tablet hours as needed for Pain (scale 1-3). amLODIPine Yes Take 5 mg Me moria 5 mg tablet 2-23 by mouth l 22:03: daily. magnesium Yes Take by Memor ia oxide 400 2-23 mouth. l mg 22:03: magnesium 05 Tab furosemide Yes Take 20 mg M emoria 20 mg 2-23 by mouth l tablet 22:03: every morning and evening. biotin 1 mg Yes Take by Mem oria Cap 2-23 mouth. l 22:03: furosemide 2020-11 Yes 20mg Q.5D Take 20 mg M ethodi (LASIX) 20 0-[address] mg tablet 08:44: (two) Hospita 25 times a l day. pantoprazol 2020-11 Yes 40mg QD Take 40 mg Methodi e 0-[address] (PROTONIX) 08:44: every Hospit a 40 MG EC 25 morning. l tablet rOPINIRole 2020-11 Yes 2mg QD Take 2 mg Me thodi (REQUIP) 2 0-[address] MG tablet 08:44: nightly. Hosp jah 25 l traZODone 2020-11 Yes 150mg QD Take 150 Met hodi (DESYREL) 0-[address] 150 MG 08:44: mouth Hospita tablet 25 nightly. l hydromorPHO 2020-11 Yes [id number] 4mg Q8H Take 4 mg Methodi NE 0-[address] (DILAUDID) 08:44: every 8 Hosp jah 4 MG tablet 25 (eight) l hours as needed for moderate pain .acute pain. carvediloL 2020-11 Yes 6.25mg QD Take 6.25 Methodi (COREG) 0-[address] 3.125 MG 08:44: mouth Hospita tablet 25 daily. l Take if systolic is >140 atorvastati 2020-11 Yes 40mg QD Take 40 mg Methodi n (LIPITOR) 0-[address] 40 mg 08:44: every Hospita tablet 25 evening. l lubiproston 2020-11 Yes 24ug QD Take 24 Met hodi e (AMITIZA) 0-[address] 24 MCG 08:44: mouth Hospita capsule 25 every l morning. clonAZEPAM 2020-11 Yes 1mg [id number] Take 1 mg Methodi (KlonoPIN) 0-04 [id number] mouth [address] 1 MG tablet 08:44: 3D (three) Hos jonathan 25 times a l day as needed for anxiety. vortioxetin 2020-11 Yes 20mg QD Take 20 mg Methodi e 0-[address] (Trintellix 08:44: every Hospi ta ) 20 mg 25 morning. l tablet hydrALAZINE 2020-11 Yes 50mg QD Take 50 mg Methodi (APRESOLINE 0-[address] ) 50 MG 08:44: daily. Hospita tablet 25 l amLODIPine 2020-11 Yes 2.5mg QD Take 2.5 Me thodi (NORVASC) 0-[address] 2.5 mg 08:44: mouth Hospita tablet 25 daily. l levothyroxi 2020-11 Yes 25ug QD Take 25 Met hodi ne 0-[address] (SYNTHROID) 08:44: mouth Hospi ta 25 mcg 25 daily. l tablet aspirin 2020-11 Yes 81mg QD Take 81 mg Meth geovani (ECOTRIN) 0-[address] 81 MG 08:44: daily. Hospita enteric 25 l coated tablet NON 2020-11 Yes [id number] Methodi FORMULARY 0-[address] 08:44: --- all, 1 Hospita 25 tab in AM l valproic 2020-11 Yes 250mg Q.5D Take 250 Meth geovani acid 0-[address] (Depakene) 08:44: mouth 2 Hosp jah 250 mg 25 (two) l capsule times a day. furosemide 2020-11 Yes 20mg Q.5D Take 20 mg M ethodi (LASIX) 20 0-[address] mg tablet 08:44: (two) Hospita 25 times a l day. pantoprazol 2020-11 Yes 40mg QD Take 40 mg Methodi e 0-[address] (PROTONIX) 08:44: every Hospit a 40 MG EC 25 morning. l tablet rOPINIRole 2020-11 Yes 2mg QD Take 2 mg Me thodi (REQUIP) 2 0-[address] MG tablet 08:44: nightly. Hosp jah 25 l traZODone 2020-11 Yes 150mg QD Take 150 Met hodi (DESYREL) 0-[address] 150 MG 08:44: mouth Hospita tablet 25 nightly. l hydromorPHO 2020-11 Yes [id number] 4mg Q8H Take 4 mg Methodi NE 0-[address] (DILAUDID) 08:44: every 8 Hosp jah 4 MG tablet 25 (eight) l hours as needed for moderate pain .acute pain. carvediloL 2020-11 Yes 6.25mg QD Take 6.25 Methodi (COREG) 0-[address] 3.125 MG 08:44: mouth Hospita tablet 25 daily. l Take if systolic is >140 atorvastati 2020-11 Yes 40mg QD Take 40 mg Methodi n (LIPITOR) 0-[address] 40 mg 08:44: every Hospita tablet 25 evening. l lubiproston 2020-11 Yes 24ug QD Take 24 Met hodi e (AMITIZA) 0-[address] 24 MCG 08:44: mouth Hospita capsule 25 every l morning. clonAZEPAM 2020-11 Yes 1mg Q.[id number] Take 1 mg Methodi (KlonoPIN) 0-04 [id number] mouth [address] 1 MG tablet 08:44: 3D (three) Hos jonathan 25 times a l day as needed for anxiety. vortioxetin 2020-11 Yes 20mg QD Take 20 mg Methodi e 0-[address] (Trintellix 08:44: every Hospi ta ) 20 mg 25 morning. l tablet hydrALAZINE 2020-11 Yes 50mg QD Take 50 mg Methodi (APRESOLINE 0-[address] ) 50 MG 08:44: daily. Hospita tablet 25 l amLODIPine 2020-11 Yes 2.5mg QD Take 2.5 Me thodi (NORVASC) 0-[address] 2.5 mg 08:44: mouth Hospita tablet 25 daily. l levothyroxi 2020-11 Yes 25ug QD Take 25 Met hodi ne 0-[address] (SYNTHROID) 08:44: mouth Hospi ta 25 mcg 25 daily. l tablet aspirin 2020-11 Yes 81mg QD Take 81 mg Meth geovani (ECOTRIN) 0-[address] 81 MG 08:44: daily. Hospita enteric 25 l coated tablet NON 2020-11 Yes [id number] Methodi FORMULARY 0-[address] 08:44: --- all, 1 Hospita 25 tab in AM l valproic 2020-11 Yes 250mg Q.5D Take 250 Meth geovani acid 0-[address] (Depakene) 08:44: mouth 2 Hosp jah 250 mg 25 (two) l capsule times a day. furosemide Yes 20mg Take 20 mg U nivers 20 mg 5-26 by mouth ity of tablet 22:50: every [place] 01 morning Medical and Branch evening. pantoprazol [...] ity of 50 mg 22:50: at [place] [facility] 01 bedtime. Medical Branch rOPINIRole [...] daily. Medical Branch acetaminoph Yes Take by Uni vers en 5-26 mouth ity of (TYLENOL) 22:50: every 6 [place] 325 mg (six) Medical tablet hours as Branch needed for Pain (scale 1-3). amLODIPine Yes 5mg Take 5 mg Un christie 5 mg tablet 5-26 by mouth ity of 22:50: daily. Medical Branch magnesium Yes Take by Unive rs oxide 400 5-26 mouth. ity of mg 22:50: [place] magnesium Medical Tab Branch biotin 1 mg Yes Take by Uni vers Cap 5-26 mouth. ity of 22:50: Medical Branch furosemide Yes 20mg Take 20 mg U nivers 20 mg 5-26 by mouth ity of tablet 22:50: every [place] morning Medical and Branch evening. pantoprazol Yes 40mg Take 40 mg Univers e 5-26 by mouth ity of (PROTONIX) 22:50: daily. [place] 40 mg EC Medical tablet Branch citalopram [...] daily. Medical Branch acetaminoph Yes Take by Uni vers en 5-26 mouth ity of (TYLENOL) 22:50: every 6 [place] 325 mg 01 (six) Medical tablet hours as Branch needed for Pain (scale 1-3). amLODIPine Yes 5mg Take 5 mg Un christie 5 mg tablet 5-26 by mouth ity of 22:50: daily. Medical Branch magnesium Yes Take by Unive rs oxide 400 5-26 mouth. ity of mg 22:50: [place] magnesium Medical Tab Branch biotin 1 mg Yes Take by Uni vers Cap 5-26 mouth. ity of 22:50: Medical Branch furosemide Yes 20mg Take 20 mg U nivers 20 mg 5-26 by mouth ity of tablet 22:50: every [place] morning Medical and Branch evening. pantoprazol Yes 40mg Take 40 mg Univers e 5-26 by mouth ity of (PROTONIX) 22:50: daily. [place] 40 mg EC Medical tablet Branch citalopram [...] daily. Medical Branch acetaminoph Yes Take by Uni vers en - mouth ity of (TYLENOL) 22:50: every 6 [place] 325 mg 01 (six) Medical tablet hours as Branch needed for Pain (scale 1-3). amLODIPine Yes 5mg Take 5 mg Un christie 5 mg tablet 5-26 by mouth ity of 22:50: daily. Medical Branch magnesium Yes Take by Unive rs oxide 400 5-26 mouth. ity of mg 22:50: [place] magnesium Medical Tab Branch furosemide Yes 20mg Take 20 mg U nivers 20 mg 5-26 by mouth ity of tablet 22:50: every morning Medical and Branch evening. pantoprazol Yes 40mg Take 40 mg Univers e 5-26 by mouth ity of (PROTONIX) 22:50: daily. [place] 40 mg EC Medical tablet Branch citalopram [...] daily. Medical Branch acetaminoph Yes Take by Uni vers en 5-26 mouth ity of (TYLENOL) 22:50: every 6 [place] 325 mg 01 (six) Medical tablet hours as Branch needed for Pain (scale 1-3). amLODIPine Yes 5mg Take 5 mg Un christie 5 mg tablet 5-26 by mouth ity of 22:50: daily. Medical Branch magnesium Yes Take by Unive rs oxide 400 5- mouth. ity of mg 22:50: [place] magnesium Medical Tab Branch biotin 1 mg Yes Take by Uni vers Cap 5-26 mouth. ity of 22:50: Medical Branch furosemide Yes 20mg Take 20 mg U nivers 20 mg 5-26 by mouth ity of tablet 22:50: every morning Medical and Branch evening. pantoprazol Yes 40mg Take 40 mg Univers e 5-26 by mouth ity of (PROTONIX) 22:50: daily. [place] 40 mg EC Medical tablet Branch citalopram [...] daily. Medical Branch acetaminoph Yes Take by Uni vers en 5-26 mouth ity of (TYLENOL) 22:50: every 6 [place] 325 mg 01 (six) Medical tablet hours as Branch needed for Pain (scale 1-3). amLODIPine Yes 5mg Take 5 mg Un christie 5 mg tablet 5-26 by mouth ity of 22:50: daily. Medical Branch magnesium Yes Take by Unive rs oxide 400 5- mouth. ity of mg 22:50: [place] magnesium Medical Tab Branch biotin 1 mg Yes Take by Uni vers Cap 5- mouth. ity of 22:50: Medical Branch furosemide Yes 20mg Take 20 mg U nivers 20 mg 5-26 by mouth ity of tablet 22:50: every morning Medical and Branch evening. pantoprazol Yes 40mg Take 40 mg Univers e 5-26 by mouth ity of (PROTONIX) 22:50: daily. [place] 40 mg EC Medical tablet Branch citalopram [...] daily. Medical Branch acetaminoph Yes Take by Uni vers en 5-26 mouth ity of (TYLENOL) 22:50: every 6 [place] 325 mg (six) Medical tablet hours as Branch needed for Pain (scale 1-3). amLODIPine Yes 5mg Take 5 mg Un christie 5 mg tablet 5-26 by mouth ity of 22:50: daily. Medical Branch magnesium Yes Take by Unive rs oxide 400 5- mouth. ity of mg 22:50: [place] magnesium Medical Tab Branch biotin 1 mg Yes Take by Uni vers Cap 5- mouth. ity of 22:50: Medical Branch furosemide Yes 20mg Take 20 mg U nivers 20 mg 5-26 by mouth ity of tablet 17:50: every morning Medical and Branch evening. pantoprazol Yes 40mg Take 40 mg Univers e 5-26 by mouth ity of (PROTONIX) 17:50: daily. [place] 40 mg EC Medical tablet Branch citalopram Yes 20mg Take 20 mg U nivers (CELEXA) 20 5-26 by mouth ity of mg tablet 17:50: daily. Medical Branch traZODONE Yes 50mg Take 50 mg Un christie (DESYREL) 5-26 by mouth ity of 50 mg 17:50: at [place] tablet bedtime. Medical Branch rOPINIRole Yes 2mg Take 2 mg Un christie (REQUIP) 2 5-26 by mouth ity o f mg tablet 17:50: at [place] bedtime. Medical Branch tiZANidine Yes [...] daily. Medical Branch acetaminoph Yes Take by Uni vers en -26 mouth ity of (TYLENOL) 17:50: every 6 [place] 325 mg 01 (six) Medical tablet hours as Branch needed for Pain (scale 1-3). amLODIPine Yes 5mg Take 5 mg Un christ[place] 5 mg tablet 5-26 by mouth ity of 17:50: daily. Medical Branch magnesium Yes Take by Unive rs oxide 400 5-26 mouth. ity of mg 17:50: [place] magnesium Medical Tab Branch biotin 1 mg Yes Take by Uni vers Cap 5-26 mouth. ity of 17:50: Medical Branch furosemide Yes 20mg Take 20 mg U nivers 20 mg 5-26 by mouth ity of tablet 17:50: every morning Medical and Branch evening. pantoprazol Yes 40mg Take 40 mg Univers e 5-26 by mouth ity of (PROTONIX) 17:50: daily. [place] 40 mg EC Medical tablet Branch citalopram Yes 20mg Take 20 mg U nivers (CELEXA) 20 5-26 by mouth ity of mg tablet 17:50: daily. Medical Branch traZODONE Yes 50mg Take 50 mg Un christie (DESYREL) 5-26 by mouth ity of 50 mg 17:50: at [place] tablet bedtime. Medical Branch rOPINIRole Yes 2mg Take 2 mg Un christie (REQUIP) 2 5-26 by mouth ity o f mg tablet 17:50: at [place] bedtime. Medical Branch tiZANidine Yes [...] daily. Medical Branch acetaminoph Yes Take by Uni vers en 5-26 mouth ity of (TYLENOL) 17:50: every 6 [place] 325 mg 01 (six) Medical tablet hours as Branch needed for Pain (scale 1-3). amLODIPine Yes 5mg Take 5 mg Un christie 5 mg tablet 5-26 by mouth ity of 17:50: daily. Medical Branch magnesium Yes Take by Unive rs oxide 400 5-26 mouth. ity of mg 17:50: [place] magnesium Medical Tab Branch biotin 1 mg Yes Take by Uni vers Cap 5-26 mouth. ity of 17:50: Medical Branch furosemide Yes 20mg Take 20 mg U nivers 20 mg 5-26 by mouth ity of tablet 17:50: every morning Medical and Branch evening. pantoprazol Yes 40mg Take 40 mg Univers e 5-26 by mouth ity of (PROTONIX) 17:50: daily. [place] 40 mg EC Medical tablet Branch citalopram Yes 20mg Take 20 mg U nivers (CELEXA) 20 5-26 by mouth ity of mg tablet 17:50: daily. Medical Branch traZODONE Yes 50mg Take 50 mg Un christie (DESYREL) 5-26 by mouth ity of 50 mg 17:50: at [place] tablet bedtime. Medical Branch rOPINIRole [...] daily. Medical Branch acetaminoph Yes Take by Uni vers en 5-26 mouth ity of (TYLENOL) 17:50: every 6 [place] 325 mg (six) Medical tablet hours as Branch needed for Pain (scale 1-3). amLODIPine Yes 5mg Take 5 mg [facility] [place] 5 mg tablet 5-26 by mouth ity of 17:50: daily. Medical Branch magnesium Yes Take by Unive rs oxide 400 5-26 mouth. ity of mg 17:50: [place] magnesium Medical Tab Branch biotin 1 mg Yes Take by Uni vers Cap 5-26 mouth. ity of 17:50: Medical Branch furosemide Yes 20mg Take 20 mg U nivers 20 mg 5-26 by mouth ity of tablet 17:50: every morning Medical and Branch evening. pantoprazol Yes 40mg Take 40 mg Univers e 5-26 by mouth ity of (PROTONIX) 17:50: daily. [place] 40 mg EC Medical tablet Branch citalopram Yes 20mg Take 20 mg U nivers (CELEXA) 20 5-26 by mouth ity of mg tablet 17:50: daily. Medical Branch traZODONE Yes 50mg Take 50 mg Un christie (DESYREL) 5-26 by mouth ity of 50 mg 17:50: at [place] tablet bedtime. Medical Branch rOPINIRole [...] daily. Medical Branch acetaminoph Yes Take by Uni vers en 5-26 mouth ity of (TYLENOL) 17:50: every 6 [place] 325 mg 01 (six) Medical tablet hours as Branch needed for Pain (scale 1-3). amLODIPine Yes 5mg Take 5 mg Un [place] 5 mg tablet 5-26 by mouth ity of 17:50: daily. Medical Branch magnesium Yes Take by Unive rs oxide 400 5-26 mouth. ity of mg 17:50: [place] magnesium Medical Tab Branch biotin 1 mg Yes Take by Uni vers Cap 5-26 mouth. ity of 17:50: Medical Branch furosemide Yes 20mg Take 20 mg U nivers 20 mg 5-26 by mouth ity of tablet 17:50: every morning Medical and Branch evening. pantoprazol Yes 40mg Take 40 mg Univers e 5-26 by mouth ity of (PROTONIX) 17:50: daily. [place] 40 mg EC Medical tablet Branch citalopram Yes 20mg Take 20 mg U nivers (CELEXA) 20 5-26 by mouth ity of mg tablet 17:50: daily. Medical Branch traZODONE Yes 50mg Take 50 mg Un christie (DESYREL) 5-26 by mouth ity of 50 mg 17:50: at [place] tablet bedtime. Medical Branch rOPINIRole Yes 2mg Take 2 mg Un christie (REQUIP) 2 5-26 by mouth ity o f mg tablet 17:50: at [place] bedtime. Medical Branch tiZANidine Yes [...] daily. Medical Branch acetaminoph Yes Take by Uni vers en 5-26 mouth ity of (TYLENOL) 17:50: every 6 [place] 325 mg 01 (six) Medical tablet hours as Branch needed for Pain (scale 1-3). amLODIPine Yes 5mg Take 5 mg Un christie 5 mg tablet 04-03 by mouth ity of 17:50: daily. [place] Medical Branch magnesium Yes Take by [facility] rs oxide 400 04-03 mouth. ity of mg 17:50: [place] magnesium Medical Tab Branch biotin 1 mg Yes Take by Uni vers Cap 04-03 mouth. ity of 17:50: [place] [facility] Branch HYDROmorpho 2020- No 8mg Take 8 mg Univers ne 04-03 by mouth ity of (DILAUDID) 17:02: 00:00 every 6 [place] as 8 mg tablet 51 :00 (six) Medical hours as Branch needed for Pain. atropine Yes .5mg 0.5 mg, IV Uni vers injection 04-03 Push, PRN ity o f 0.5 mg 05:33: - SEE [place] [id number] INSTRUCTIO Medical NS, Branch Starting Thu04/03/21 at 0033, Until Discontinu ed, Routine, Symptomati c Bradycardi a dextrometho Yes 10mL 10 mL, [facility] ers rphan-guaif 04-03 Oral, ity of enesin 03:58: Q6HPRN, [place] (ROBITUSSIN 20 Starting Medi dyan DM) 10-100 [...] Until Discontinu ed, Routine HYDROmorpho 2021-0 Yes Take 0.5 Me moria ne 8 mg 5-26 tablets by l tablet 00:00: mouth [place] 00 every 12 (twelve) hours as needed for Pain. Indication s: chronic pain HYDROmorpho 2020-0 No Take 8 mg M emoria ne 5-26 by mouth l (DILAUDID) 00:00: every 6 Herm gabriel 8 mg tablet 00 (six) hours as needed for Pain. HYDROmorpho 2020-0 Yes 2745 4mg Take 0.5 [...] 2020-0 Yes 2745 4mg Take 0.5 Un crhistie ne 8 mg 5-26 tablets by ity [...] for Pain. Indication s: chronic pain HYDROmorpho 1-0 Yes 2745 4mg Take 0.5 Un christie ne 8 mg 5-26 tablets by ity of tablet 00:00: mouth [place] 00 every 12 Medical (twelve) Branch hours as needed for Pain. Indication s: chronic pain HYDROmorpho 1-0 Yes 2745 4mg Take 0.5 Un christie [...] 40 mg 00 First dose Medical on [facility] 04/02/21 at 1700, Until Discontinu ed, Routine atorvastati Yes 20mg 20 mg, Univ ers n (LIPITOR) 5-25 Oral, QPM, it y of tablet 20 22:00: First dose [place] mg 00 on [facility] 04/02/21 at Branch 1700, Until Discontinu ed, Routine magnesium 2020- No 296mL 296 mL, Uni vers citrate 5-25 05-25 Oral, ity of solution 17:15: 21:48 ONCE, 1 [place] 296 mL 00 :00 dose, [facility] 04/02/21 at Branch 1215, Routine pantoprazol Yes 40mg 40 mg, Univ ers e 5-25 Oral, ity of (PROTONIX) 14:00: DAILY, [place] EC tablet 00 First dose Medi dyan 40 mg on [facility] 04/02/21 at 0900, Until Discontinu ed, Routine aspirin EC Yes 81mg 81 mg, Unive rs tablet 81 5-25 Oral, ity of mg 14:00: DAILY, [place] 00 First dose Medical on [facility] 04/02/21 at 0900, Until Discontinu ed, Routine sennosides- 0 Yes 2{tbl} 2 tablet, Univers docusate 5-25 Oral, BID, ity o f sodium 13:00: First dose [place] (SENOKOT-S) 00 on [facility] Medica l 8.6-50 mg 04/02/21 at Bran ch per tablet 0800, 2 tablet Until Discontinu ed, Routine polyethylen 2020-0 Yes 17g 17 g, Unive rs e glycol 5-25 Oral, BID, ity o f 3350 powder 13:00: First dose [place] 17 g 00 on [facility] 04/02/21 at Branch 0800, Until Discontinu ed, Routine ipratropium 0 Yes 3mL 3 mL, Unive rs -albuteroL 5-25 Inhalation ity of (DUONEB) 13:00: , QID, [place] 0.5 mg-3 00 First dose Medic al mg(2.5 mg on Thu)/3 mL 04/02/21 at nebulizer 0800, solution 3 Until mL Discontinu ed, Routine levothyroxi Yes 25ug 25 mcg, Uni vers ne 5-25 Oral, ity of (SYNTHROID) 11:00: QAM-0600, [place] tablet 25 First dose Medi dyan mcg on [facility] 04/02/21 at 0600, Until Discontinu ed, Routine lactated 2020- 202- No 1000mL at 200 Univ ers ringers IV 5-25 05-25 mL/hr, ity of infusion 08:00: 07:12 1,000 mL, [place] as 1,000 mL 00 :00 Intravenou Medic al s, ONCE, 1 Branch dose, [facility] 04/02/21 at 0300, Routine ipratropium 2020-0 Yes 3mL 3 mL, Unive rs -albuteroL 5-25 Inhalation ity of (DUONEB) 07:37: , Q6HPRN, [place] 0.5 mg-3 55 Starting Medical mg(2.5 mg Thu)/3 mL 04/02/21 at nebulizer 0237, solution 3 Until mL Discontinu ed, Routine, Wheezing, Shortness of Breath naloxone 2020-0 Yes .2mg 0.2 mg, Univer s (NARCAN) 5-25 Slow IV ity of injection 06:53: Push, [place] 0.2 mg 33 SEE-INSTRU Medical CTIONS, Branch Starting 04/02/21 at 0153, Until Discontinu ed, Routine metoprolol No 25mg Take 25 mg Univers tartrate 525 05-25 by mouth ity of (LOPRESSOR) 06:52: 00:00 daily. [place] as 25 mg 52 :00 Medical tablet Branch lisinopril 2020- No Take by Uni vers (PRINIVIL,Z 5-25 05-25 mouth ity of ESTRIL) 40 06:52: 00:00 daily. [place] mg tablet 52 :00 Medical Branch POTASSIUM 2020- No 10meq Take 10 Uni vers CHLORIDE 5-25 05-25 mEq by ity of (KLOR-CON 06:52: 00:00 mouth [place] 10 ORAL) 52 :00 daily. Medical Branch multivitami 2020- No 1{tbl} Take 1 Tab Univers n tablet 04-02-25 by mouth ity of 06:52: 00:00 daily. [place] 52 :00 Medical Branch BIOTIN ORAL 2020- No 1{tbl} Take 1 Tab Univers -25 05-25 by mouth ity of 06:52: 00:00 daily. [place] 52 :00 Medical Branch acetaminoph Yes 650mg 650 mg, Un christie en 5-25 Oral, ity of (TYLENOL) 06:52: Q6HPR, [place] tablet 650 06 Starting Medic al mg [facility] 04/02/21 at 0152, Until Discontinu ed, Routine, Pain (scale 1-3), Temp > 38.5 C HYDROcodone 2020- No 1{tbl} Take 1 U nivers -acetaminop 5-25 05-25 tablet by it y of hen (NORCO) 06:45: 00:00 mouth [place] 7.5-325 mg 43 :00 every 6 Medica l per tablet (six) Branch hours as needed for Pain. cefTRIAXone No 1000mg 1,000 mg, Univers (ROCEPHIN) 5-25 05-25 IV ity of 1,000 mg in 04:30: 04:21 Piggyback, [place] NaCl 0.9% 00 :00 ONCE, 1 Medical (NS) 50 mL dose, Mon Bran ch MINI-BAG 04/01/21 at 2330, 50 mL
Reas on for Anti-Infec tive: Documented Infection< br>Documen theodore Infection Site: Urine
D uration of Therapy: Other (see Comments) metoprolol No Take 25 mg M emoria tartrate 5-25 by mouth l (LOPRESSOR) 00:00: daily. Herm gabriel 25 mg 00 tablet lisinopril No Take by Mj chadwick (PRINIVIL,Z 5-25 mouth l ESTRIL) 40 00:00: daily. [place] nn mg tablet 00 POTASSIUM No Take 10 Memor ia CHLORIDE 5-25 mEq by l (KLOR-CON 00:00: mouth [place] 10 ORAL) 00 daily. multivitami No Take 1 Tab Memoria n tablet 5-25 by mouth l 00:00: daily. [place] 00 BIOTIN ORAL No Take 1 Tab Memoria 5-25 by mouth l 00:00: daily. Mohan 00 HYDROcodone No Take 1 Mj chadwick -acetaminop 5-25 tablet by l hen (NORCO) 00:00: mouth [place] nn 7.5-325 mg 00 every 6 per tablet (six) hours as needed for Pain. metoprolol Yes Take 25 mg M emoria tartrate 5-24 by mouth l (LOPRESSOR) 22:24: daily. Herm gabriel 25 mg 03 tablet lisinopril Yes Take by Mj chadwick (PRINIVIL,Z 5-24 mouth l ESTRIL) 40 22:24: daily. [place] nn mg tablet 03 furosemide Yes Take 20 mg M emoria (LASIX) 40 5-24 by mouth l mg tablet 22:24: daily. [place] n 03 POTASSIUM Yes Take 10 Memor ia CHLORIDE 5-24 mEq by l (KLOR-CON 22:24: mouth [place]an 10 ORAL) 03 daily. HYDROmorpho Yes Take 8 mg M emoria ne 5-24 by mouth l (DILAUDID) 22:24: every 6 Herm gabriel 8 mg tablet 03 (six) hours as needed for Pain. multivitami Yes Take 1 Tab Memoria n tablet 5-24 by mouth l 22:24: daily. Mohan 03 BIOTIN ORAL Yes Take 1 Tab Memoria 5-24 by mouth l 22:24: daily. [place] 03 HYDROcodone Yes Take 1 Mj chadwikc -acetaminop 5-24 tablet by l hen (NORCO) 22:24: mouth [place] nn 7.5-325 mg 03 every 6 per tablet (six) hours as needed for Pain. traZODONE 2019-11 Yes 50mg Take 50 mg Un christie (DESYREL) 0-22 by mouth ity of 50 mg 20:09: at [place] tablet 19 bedtime. Medical Branch traZODONE 2019-11 Yes 50mg Take 50 mg Un christie (DESYREL) 0-22 by mouth ity of 50 mg 20:09: at [place] tablet 19 bedtime. Medical Branch magnesium 2019-11 Yes Take by Unive rs oxide 400 0-22 mouth. ity of mg 20:09: [place] magnesium 19 Medical Tab Branch traZODONE 2019-11 Yes 50mg Take 50 mg Un christie (DESYREL) 0-22 by mouth ity of 50 mg 20:09: at [place] tablet 19 bedtime. Medical Branch magnesium 2019-11 Yes Take by Unive rs oxide 400 0-22 mouth. ity of mg 20:09: [place] magnesium 19 Medical Tab Branch traZODONE 2019-11 Yes 50mg Take 50 mg Un christie (DESYREL) 0-22 by mouth ity of 50 mg 20:09: at [place] tablet 19 bedtime. Medical Branch magnesium 2019- Yes Take by Unive rs oxide 400 0-22 mouth. ity of mg 20:09: [place] magnesium 19 Medical Tab Branch traZODONE 2019-11 Yes 50mg Take 50 mg Un christie (DESYREL) 0-22 by mouth ity of 50 mg 20:09: at [place] tablet 19 bedtime. Medical Branch magnesium 2019- Yes Take by Unive rs oxide 400 0-22 mouth. ity of mg 20:09: [place] magnesium 19 Medical Tab Branch traZODONE 2019-11 Yes 50mg Take 50 mg Un christie (DESYREL) 0-22 by mouth ity of 50 mg 20:09: at [place] tablet 19 bedtime. Medical Branch magnesium 2019- Yes Take by Unive rs oxide 400 0-22 mouth. ity of mg 20:09: [place] magnesium 19 Medical Tab Branch traZODONE 2019- Yes 50mg Take 50 mg Un christie (DESYREL) 0-22 by mouth ity of 50 mg 20:09: at [place] tablet 19 bedtime. Medical Branch magnesium 2019- Yes Take by Unive rs oxide 400 0-22 mouth. ity of mg 20:09: [place] magnesium 19 Medical Tab Branch traZODONE 2019-11 Yes 50mg Take 50 mg Un christie (DESYREL) 0-22 by mouth ity of 50 mg 20:09: at [place] tablet 19 bedtime. Medical Branch magnesium 2019- Yes Take by Unive rs oxide 400 0-22 mouth. ity of mg 20:09: [place] magnesium 19 Medical Tab Branch traZODONE 2019-11 Yes 50mg Take 50 mg Un christie (DESYREL) 0-22 by mouth ity of 50 mg 20:09: at [place] tablet 19 bedtime. Medical Branch magnesium 2019- Yes Take by Unive rs oxide 400 0-22 mouth. ity of mg 20:09: [place] magnesium 19 Medical Tab Branch traZODONE 2019-11 Yes 50mg Take 50 mg Un christie (DESYREL) 0-22 by mouth ity of 50 mg 20:09: at [place] tablet 19 bedtime. Medical Branch magnesium 2019- Yes Take by Unive rs oxide 400 0-22 mouth. ity of mg 20:09: [place] magnesium 19 Medical Tab Branch traZODONE 2019- Yes 50mg Take 50 mg Un christie (DESYREL) 0-22 by mouth ity of 50 mg 20:09: at [place] tablet 19 bedtime. Medical Branch magnesium 2019- Yes Take by Unive rs oxide 400 0-22 mouth. ity of mg 20:09: [place] magnesium 19 Medical Tab Branch traZODONE 2019- Yes 50mg Take 50 mg Un christie (DESYREL) 0-22 by mouth ity of 50 mg 20:09: at [place] tablet 19 bedtime. Medical Branch magnesium 2019- Yes Take by Unive rs oxide 400 0-22 mouth. ity of mg 20:09: [facility] 19 Medical Tab Branch furosemide 2019-11 Yes 20mg Take 20 mg U nivers (LASIX) 40 0-22 by mouth ity o f mg tablet 20:06: daily. [place] 52 Medical Branch pantoprazol 2019-11 Yes 40mg Take 40 mg Univers e 0-22 by mouth ity of (PROTONIX) 20:06: daily. [place] 40 mg EC 52 Medical tablet Branch citalopram 2019-11 Yes 20mg Take 20 mg U nivers (CELEXA) 20 0-22 by mouth ity of mg tablet 20:06: daily. [place] [address] Medical Branch rOPINIRole 2019-11 Yes 2mg Take 2 mg Un christie (REQUIP) 2 0-22 by mouth ity o f mg tablet 20:06: at [place] [address] bedtime. Medical Branch tiZANidine 2019-11 Yes 2mg [...] by mouth ity of 20:06: daily. [address] Branch DOCUSATE 2019-11 Yes 1{tbl} Take 1 Tab U nivers CALCIUM 0-22 by mouth ity of (STOOL 20:06: as needed [place] SOFTENER for Medical ORAL) Constipati Branch on. amLODIPine 2019-11 Yes 5mg Take 5 mg Un [place] 5 mg tablet 0-22 by mouth ity of 20:06: daily. [address] Branch furosemide 2019-11 Yes 20mg Take 20 mg U nivers (LASIX) 40 0-22 by mouth ity o f mg tablet 20:06: daily. [place] [address] Medical Branch pantoprazol 2019-11 Yes 40mg Take 40 mg Univers e 0-22 by mouth ity of (PROTONIX) 20:06: daily. [place] 40 mg EC Medical tablet Branch citalopram 2019-11 Yes 20mg Take 20 mg U nivers (CELEXA) 20 0-22 by mouth ity of mg tablet 20:06: daily. [address] rOPINIRole 2019-11 Yes 2mg Take 2 mg Un christie (REQUIP) 2 0-22 by mouth ity o f mg tablet 20:06: at [place] [address] bedtime. Medical Branch tiZANidine 2019-11 Yes 2mg [...] 0-22 by mouth ity of 20:06: daily. [place] [address] Medical Branch DOCUSATE 2019-11 Yes 1{tbl} Take 1 Tab U nivers CALCIUM 0-22 by mouth ity of (STOOL 20:06: as needed [place] SOFTENER for Medical ORAL) Constipati Branch on. amLODIPine 2019-11 Yes 5mg Take 5 mg Un [place] 5 mg tablet 0-22 by mouth ity of 20:06: daily. [place] [address] Medical Branch furosemide 2019-11 Yes 20mg Take 20 mg U nivers (LASIX) 40 0-22 by mouth ity o f mg tablet 20:06: daily. [place] [address] Medical Branch pantoprazol 2019-11 Yes 40mg Take 40 mg Univers e 0-22 by mouth ity of (PROTONIX) 20:06: daily. [place] 40 mg [facility] Medical tablet Branch citalopram 2019-11 Yes 20mg Take 20 mg U nivers (CELEXA) 20 0-22 by mouth ity of mg tablet 20:06: daily. [place] [address] Medical Branch rOPINIRole 2019-11 Yes 2mg Take 2 mg Un christ[place] (REQUIP) 2 0-22 by mouth ity o f mg tablet 20:06: at [place] [address] bedtime. Medical Branch tiZANidine 2019-11 Yes 2mg [...] 0-22 by mouth ity of 20:06: daily. [place] [address] Medical Branch DOCUSATE 2019-11 Yes 1{tbl} Take 1 Tab U nivers CALCIUM 0-22 by mouth ity of (STOOL 20:06: as needed [place] SOFTENER 52 for Medical ORAL) Constipati Branch on. amLODIPine 2019-11 Yes 5mg Take 5 mg Un [place] 5 mg tablet 0-22 by mouth ity of 20:06: daily. [place] [address] Medical Branch furosemide 2019-11 Yes 20mg Take 20 mg U nivers (LASIX) 40 0-22 by mouth ity o f mg tablet 20:06: daily. [place] [address] Medical Branch pantoprazol 2019-11 Yes 40mg Take 40 mg Univers e 0-22 by mouth ity of (PROTONIX) 20:06: daily. [place] 40 [place] [address] Medical tablet Branch citalopram 2019-11 Yes 20mg Take 20 mg U nivers (CELEXA) 20 0-22 by mouth ity of mg tablet 20:06: daily. [place] [address] Medical Branch rOPINIRole 2019-11 Yes 2mg Take 2 mg Un christ[place] (REQUIP) 2 0-22 by mouth ity o f mg tablet 20:06: at [place] [address] bedtime. Medical Branch tiZANidine 2019-11 Yes 2mg [...] 0-22 by mouth ity of 20:06: daily. [place] [address] Medical Branch DOCUSATE 2019-11 Yes 1{tbl} Take 1 Tab U nivers CALCIUM 0-22 by mouth ity of (STOOL 20:06: as needed [place] SOFTENER for Medical ORAL) Constipati Branch on. amLODIPine 2019-11 Yes 5mg Take 5 mg Un [place] 5 mg tablet 0-22 by mouth ity of 20:06: daily. [place] [address] Medical Branch furosemide 2019-11 Yes 20mg Take 20 mg U nivers (LASIX) 40 0-22 by mouth ity o f mg tablet 20:06: daily. [place] [address] Medical Branch pantoprazol 2019-11 Yes 40mg Take 40 mg Univers e 0-22 by mouth ity of (PROTONIX) 20:06: daily. [place] 40 mg EC Medical tablet Branch citalopram 2019-11 Yes 20mg Take 20 mg U nivers (CELEXA) 20 0-22 by mouth ity of mg tablet 20:06: daily. [place] [address] Medical Branch rOPINIRole 2019-11 Yes 2mg Take 2 mg Un christie (REQUIP) 2 0-22 by mouth ity o f mg tablet 20:06: at [place] [address] bedtime. Medical Branch tiZANidine 2019-11 Yes 2mg [...] by mouth ity of 20:06: daily. [address] Branch DOCUSATE 2019-11 Yes 1{tbl} Take 1 Tab U nivers CALCIUM 0-22 by mouth ity of (STOOL 20:06: as needed [place] SOFTENER for Medical ORAL) Constipati Branch on. amLODIPine 2019-11 Yes 5mg Take 5 mg Un [place] 5 mg tablet 0-22 by mouth ity of 20:06: daily. [address] Branch furosemide 2019-11 Yes 20mg Take 20 mg U nivers (LASIX) 40 0-22 by mouth ity o f mg tablet 20:06: daily. [address] Branch pantoprazol 2019-11 Yes 40mg Take 40 mg Univers e 0-22 by mouth ity of (PROTONIX) 20:06: daily. [place] 40 mg EC Medical tablet Branch citalopram 2019-11 Yes 20mg Take 20 mg U nivers (CELEXA) 20 0-22 by mouth ity of mg tablet 20:06: daily. [place] [address] Medical Branch rOPINIRole 2019-11 Yes 2mg Take 2 mg Un christie (REQUIP) 2 0-22 by mouth ity o f mg tablet 20:06: at [place] [address] bedtime. Medical Branch tiZANidine 2019-11 Yes 2mg [...] 0-22 by mouth ity of 20:06: daily. [place] [address] Medical Branch DOCUSATE 2019-11 Yes 1{tbl} Take 1 Tab U nivers CALCIUM 0-22 by mouth ity of (STOOL 20:06: as needed [place] SOFTENER for Medical ORAL) Constipati Branch on. amLODIPine 2019-11 Yes 5mg Take 5 mg Un [place] 5 mg tablet 0-22 by mouth ity of 20:06: daily. [place] [address] Medical Branch furosemide 2019-11 Yes 20mg Take 20 mg U nivers (LASIX) 40 0-22 by mouth ity o f mg tablet 20:06: daily. [place] [address] Medical Branch pantoprazol 2019-11 Yes 40mg Take 40 mg Univers e 0-22 by mouth ity of (PROTONIX) 20:06: daily. [place] 40 mg EC Medical tablet Branch citalopram 2019-11 Yes 20mg Take 20 mg U nivers (CELEXA) 20 0-22 by mouth ity of mg tablet 20:06: daily. [place] [address] Medical Branch rOPINIRole 2019-11 Yes 2mg Take 2 mg Un [place] (REQUIP) 2 0-22 by mouth ity o f mg tablet 20:06: at [place] [address] bedtime. Medical Branch tiZANidine 2019-11 Yes 2mg [...] 0-22 by mouth ity of 20:06: daily. [place] [address] Medical Branch DOCUSATE 2019-11 Yes 1{tbl} Take 1 Tab U nivers CALCIUM 0-22 by mouth ity of (STOOL 20:06: as needed [place] SOFTENER for Medical ORAL) Constipati Branch on. amLODIPine 2019-11 Yes 5mg Take 5 mg Un [place] 5 mg tablet 0-22 by mouth ity of 20:06: daily. [place] [address] Medical Branch furosemide 2019-11 Yes 20mg Take 20 mg U nivers (LASIX) 40 0-22 by mouth ity o f mg tablet 20:06: daily. [place] [address] Medical Branch pantoprazol 2019-11 Yes 40mg Take 40 mg Univers e 0-22 by mouth ity of (PROTONIX) 20:06: daily. [place] 40 mg EC Medical tablet Branch citalopram 2019-11 Yes 20mg Take 20 mg U nivers (CELEXA) 20 0-22 by mouth ity of mg tablet 20:06: daily. [place] [address] Medical Branch rOPINIRole 2019-11 Yes 2mg Take 2 mg Un christie (REQUIP) 2 0-22 by mouth ity o f mg tablet 20:06: at [place] [address] bedtime. Medical Branch tiZANidine 2019-11 Yes 2mg Take 2 mg Un christie (ZANAFLEX) 0-22 by mouth 2 ity of 2 mg 20:06: (two) [place] [facility] 52 times Medical daily as Branch needed for Muscle Spasms. HYDROmorpho 2019-11 Yes 8mg Take 8 mg U nivers ne 0-22 by mouth ity of (DILAUDID) 20:06: every 6 [place] 8 mg tablet 52 (six) Medical hours as Branch needed for Pain. BIOTIN ORAL 2019-11 Yes 1{tbl} Take 1 Tab Univers 0-22 by mouth ity of 20:06: daily. [place] [address] Medical Branch DOCUSATE 2019-11 Yes 1{tbl} Take 1 Tab U nivers CALCIUM 0-22 by mouth ity of (STOOL 20:06: as needed [place] SOFTENER 52 for Medical ORAL) Constipati Branch on. amLODIPine 2019-11 Yes 5mg Take 5 mg Un [place] 5 mg tablet 0-22 by mouth ity of 20:06: daily. [place] [address] Medical Branch furosemide 2019-11 Yes 20mg Take 20 mg U nivers (LASIX) 40 0-22 by mouth ity o f mg tablet 20:06: daily. [place] [address] Medical Branch pantoprazol 2019-11 Yes 40mg Take 40 mg Univers e 0-22 by mouth ity of (PROTONIX) 20:06: daily. [place] 40 EC Medical tablet Branch citalopram 2019-11 Yes 20mg Take 20 mg U nivers (CELEXA) 20 0-22 by mouth ity of mg tablet 20:06: daily. [place] [address] Medical Branch rOPINIRole 2019-11 Yes 2mg Take 2 mg Un [place] (REQUIP) 2 0-22 by mouth ity o f mg tablet 20:06: at [place] [address] bedtime. Medical Branch tiZANidine 2019-11 Yes 2mg [...] 0-22 by mouth ity of 20:06: daily. [place] [address] Medical Branch DOCUSATE 2019-11 Yes 1{tbl} Take 1 Tab U nivers CALCIUM 0-22 by mouth ity of (STOOL 20:06: as needed [place] SOFTENER for Medical ORAL) Constipati Branch on. amLODIPine 2019-11 Yes 5mg Take 5 mg [place] 5 mg tablet 0-22 by mouth ity of 20:06: daily. [address] Branch furosemide 2019-11 Yes 20mg Take 20 mg U nivers (LASIX) 40 0-22 by mouth ity o f mg tablet 20:06: daily. [address] Branch pantoprazol 2019-11 Yes 40mg Take 40 mg Univers e 0-22 by mouth ity of (PROTONIX) 20:06: daily. [place] 40 mg EC Medical tablet Branch citalopram 2019-11 Yes 20mg Take 20 mg U nivers (CELEXA) 20 0-22 by mouth ity of mg tablet 20:06: daily. [place] [address] Medical Branch rOPINIRole 2019-11 Yes 2mg Take 2 mg Un christie (REQUIP) 2 0-22 by mouth ity o f mg tablet 20:06: at [place] [address] bedtime. Medical Branch tiZANidine 2019-11 Yes 2mg [...] by mouth ity of 20:06: daily. [address] Branch DOCUSATE 2019-11 Yes 1{tbl} Take 1 Tab U nivers CALCIUM 0-22 by mouth ity of (STOOL 20:06: as needed [place] SOFT[facility] for Medical ORAL) Constipati Branch on. amLODIPine 2019-11 Yes 5mg Take 5 mg Un christie 5 mg tablet 0-22 by mouth ity of 20:06: daily. [address] Branch furosemide 2019-11 Yes 20mg Take 20 mg U nivers (LASIX) 40 0-22 by mouth ity o f mg tablet 20:06: daily. [place] [address] Medical Branch pantoprazol 2019-11 Yes 40mg Take 40 mg Univers e 0-22 by mouth ity of (PROTONIX) 20:06: daily. [place] 40 mg EC Medical tablet Branch citalopram 2019-11 Yes 20mg Take 20 mg U nivers (CELEXA) 20 0-22 by mouth ity of mg tablet 20:06: daily. [place] [address] Medical Branch rOPINIRole 2019-11 Yes 2mg Take 2 mg Un christie (REQUIP) 2 0-22 by mouth ity o f mg tablet 20:06: at [place] [address] bedtime. Medical Branch tiZANidine 2019-11 Yes 2mg [...] 0-22 by mouth ity of 20:06: daily. [place] [address] Medical Branch DOCUSATE 2019-11 Yes 1{tbl} Take 1 Tab U nivers CALCIUM 0-22 by mouth ity of (STOOL 20:06: as needed [place] SOFTENER for Medical ORAL) Constipati Branch on. amLODIPine 2019-11 Yes 5mg Take 5 mg Un [place] 5 mg tablet 0-22 by mouth ity of 20:06: daily. [place] [address] Medical Branch furosemide 2019-11 Yes 20mg Take 20 mg U nivers (LASIX) 40 0-22 by mouth ity o f mg tablet 20:06: daily. [place] [address] Medical Branch pantoprazol 2019-11 Yes 40mg Take 40 mg Univers e 0-22 by mouth ity of (PROTONIX) 20:06: daily. [place] 40 mg [facility] Medical tablet Branch citalopram 2019-11 Yes 20mg Take 20 mg U nivers (CELEXA) 20 0-22 by mouth ity of mg tablet 20:06: daily. [place] [address] Medical Branch rOPINIRole 2019-11 Yes 2mg Take 2 mg Un christie (REQUIP) 2 0-22 by mouth ity o f mg tablet 20:06: at [place] [address] bedtime. Medical Branch tiZANidine 2019-11 Yes 2mg [...] 0-22 by mouth ity of 20:06: daily. [address] DOCUSATE 2019-11 Yes 1{tbl} Take 1 Tab U nivers CALCIUM 0-22 by mouth ity of (STOOL 20:06: as needed [place] SOFTENER for Medical ORAL) Constipati Branch on. amLODIPine 2019-11 Yes 5mg Take 5 mg Un christie 5 mg tablet 0-22 by mouth ity of 20:06: daily. [address] clonazePAM 2019-11 Yes Memoria 1 mg tablet 0-20 l 00:00: [place] clonazePAM 2019-11 Yes Univers 1 mg tablet 0-20 ity of 00:00: [address] clonazePAM 2019-11 Yes Univers 1 mg tablet 0-20 ity of 00:: [address] clonazePAM 2019-11 Yes Univers 1 mg tablet 0-20 ity of 00:00: [address] clonazePAM 2019-11 Yes Univers 1 mg tablet 0-20 ity of 00:00: [address] clonazePAM 2019-11 Yes Univers 1 mg tablet 0-20 ity of 00:00: [address] clonazePAM 2019-11 Yes Univers 1 mg tablet 0-20 ity of 00:00: [address] clonazePAM 2019-11 Yes Univers 1 mg tablet 0-20 ity of 00:00: [address] clonazePAM 2019-11 Yes Univers 1 mg tablet 0-20 ity of 00:00: [address] clonazePAM 2019-11 Yes Univers 1 mg tablet 0-20 ity of 00:00: [address] clonazePAM 2019-11 Yes Univers 1 mg tablet 0-20 ity of 00:00: [address] clonazePAM 2019-11 Yes Univers 1 mg tablet 0-20 ity of 00:00: [address] clonazePAM 2019-11 Yes Univers 1 mg tablet 0-20 ity of 00:00: [address] clonazePAM 2019-11 Yes Univers 1 mg tablet 0-20 ity of 00:00: [address] clonazePAM 2019-11 Yes Univers 1 mg tablet 0-20 ity of 00:00: [address] clonazePAM 2019-11 Yes Univers 1 mg tablet 0-20 ity of 00:00: [address] clonazePAM 2020-1 Yes Univers 1 mg tablet 0-20 ity of 00:00: [place] 00 Medical Branch clonazePAM 2020-1 Yes Univers 1 mg tablet 0-20 ity of 00:00: [place] 00 Medical Branch clonazePAM 2020-1 Yes Univers 1 mg tablet 0-20 ity of 00:00: [place] [facility] clonazePAM 2020-1 Yes Univers 1 mg tablet 0-20 ity of 00:00: [place] [facility] clonazePAM 2020-1 Yes Univers 1 mg tablet 0-20 ity of 00:00: [place] [facility] clonazePAM 2020-1 Yes Univers 1 mg tablet 0-20 ity of 00:00: [place] [address] Medical Branch clonazePAM 2020-1 Yes Univers 1 mg tablet 0-20 ity of 00:00: [address] AMITIZA 24 2020-0 Yes Memoria mcg capsule 9-14 l 00:00: [place] [facility] 24 2019-0 Yes Univers mcg capsule 9-14 ity of 00:00: [address] 2020-0 Yes Univers mcg capsule 9-14 ity of 00:00: [address] 24 2020-0 Yes Univers mcg capsule 9-14 ity of 00:00: [address] 24 2020-0 Yes Univers mcg capsule 9-14 ity of 00:00: [address] 24 2020-0 Yes Univers mcg capsule 9-14 ity of 00:00: [place] [address] Medical Branch [facility] Yes Univers mcg capsule 9-14 ity of 00:00: [address] Branch [facility] 2020-[facility] Yes Univers mcg capsule 9-14 ity [facility] 00:00[facility] [place] [facility] 9-14 ity of 00:00: [place] [address] Medical [place] AMITIZA 24 2020-0 Yes Univers mcg capsule 9-14 ity of 00:00: [address] 24 2020-0 Yes Univers mcg capsule 9-14 ity of 00:00: [place] [facility] Univers mcg capsule 9-14 ity of 00:00: [place] 00 Medical Branch AMITIZA 24 2020-0 Yes Univers mcg capsule 9-14 ity of 00:00: [place] 00 Medical [place] AMITIZA 24 2020-0 Yes Univers mcg capsule 9-14 ity of 00:00: [place] 00 Medical Branch AMITIZA 24 2020-0 Yes Univers mcg capsule 9-14 ity of 00:00: [place] 00 Medical Branch AMITIZA 24 2020-0 Yes Univers mcg capsule 9-14 ity of 00:00: [place] [facility] AMITIZA 24 2020-0 Yes Univers mcg capsule 9-14 ity of 00:00: [place] 00 Medical Branch AMITIZA 24 2020-0 Yes Univers mcg capsule 9-14 ity of 00:00: [place] 00 Medical Branch AMITIZA 24 2019-0 Yes Univers mcg capsule 9-14 ity of 00:00: [place] 00 Medical Branch AMITIZA 24 2019-0 Yes Univers mcg capsule 9-14 ity of 00:00: [place] 00 Medical Branch AMITIZA 24 2019-0 Yes Univers mcg capsule 9-14 ity of 00:00: [place] [facility] AMITIZA 24 2019-0 Yes Univers mcg capsule 9-14 ity of 00:00: [place] [address] Medical Branch AMITIZA 24 2019-0 Yes Univers mcg capsule 9-14 ity of 00:00: [place] 00 Medical Branch TRINTELLIX 2020-0 No Memoria 20 mg Tab 8-12 l 00:00: [place] TRINTELLIX 2020-0 Yes Univers 20 mg Tab 8-12 ity of 00:00: [place] [address] Medical Branch TRINTELLIX 2020-0 Yes Univers 20 mg Tab 8-12 ity of 00:00: [place] 00 Medical Branch TRINTELLIX 2020-0 Yes Univers 20 mg Tab 8-12 ity of 00:00: [place] [address] Medical Branch TRINTELLIX 2020-0 Yes Univers 20 mg Tab 8-12 ity of 00:00: [place] 00 Medical Branch TRINTELLIX 2020-0 Yes Univers 20 mg Tab 8-12 ity of 00:00: [place] 00 Medical Branch TRINTELLIX 2020-0 Yes Univers 20 mg Tab 8-12 ity of 00:00: [place] [address] Medical Branch TRINTELLIX 2020-0 Yes Univers 20 mg Tab 8-12 ity of 00:00: [place] 00 Medical Branch TRINTELLIX 2020-0 Yes Univers 20 mg Tab 8-12 ity of 00:00: [place] [address] Medical Branch TRINTELLIX 2020-0 Yes Univers 20 mg Tab 8-12 ity of 00:00: [place] 00 Medical Branch TRINTELLIX 2020-0 Yes Univers 20 mg Tab 8-12 ity of 00:00: [place] [facility] TRINTELLIX 2019-0 Yes Univers 20 mg Tab 8-12 ity of 00:00: [address] TRINTELLIX 2019-0 2020- No Univer s 20 mg Tab 8-12 05-25 ity of 00:00: 00:00 [place] 00 : [facility] 2018-11 Yes Take 20 mg Memoria n 20 mg 0-10 by mouth. l tablet 00:00: [place] [address] [facility]11 Yes 20mg Take 20 mg Univers n 20 mg 0-10 by mouth. ity of tablet 00:00: [place] [facility] 2018-11 Yes 20mg Take 20 mg Univers n 20 mg 0-10 by mouth. ity of tablet 00:00: [place] [facility] 2018-11 Yes 20mg Take 20 mg Univers n 20 mg 0-10 by mouth. ity of tablet 00:00: [address] [facility] 2018-11 Yes 20mg Take 20 mg Univers n 20 mg 0-10 by mouth. ity of tablet 00:00: [place] [facility] 2018-11 Yes 20mg Take 20 mg Univers n 20 mg 0-10 by mouth. ity of tablet 00:00: [place] [facility] 2018-11 Yes 20mg Take 20 mg Univers n 20 mg 0-10 by mouth. ity of tablet 00:00: [address] [facility] 2018-11 Yes 20mg Take 20 mg Univers n 20 mg 0-10 by mouth. ity of tablet 00:00: [place] [facility] 2018-11 Yes 20mg Take 20 mg Univers n 20 mg 0-10 by mouth. ity of tablet 00:00: [place] [facility] 2018-11 Yes 20mg Take 20 mg Univers n 20 mg 0-10 by mouth. ity of tablet 00:00: [address] [facility] 2018-11 Yes 20mg Take 20 mg Univers n 20 mg 0-10 by mouth. ity of tablet 00:00: [address] atorvasta 2018-11 Yes 20mg Take 20 mg Univers n 20 mg 0-10 by mouth. ity of tablet 00:00: [address] atorvasta 2018-11 Yes 20mg Take 20 mg Univers n 20 mg 0-10 by mouth. ity of tablet 00:00: [place] [facility] atorvasta 2018-11 Yes 20mg Take 20 mg Univers n 20 mg 0-10 by mouth. ity of tablet 00:00: [place] [facility] atorvasta 2018-11 Yes 20mg Take 20 mg Univers n 20 mg 0-10 by mouth. ity of tablet 00:00: [place] [facility] atorvasta 2018-11 Yes 20mg Take 20 mg Univers n 20 mg 0-10 by mouth. ity of tablet 00:00: [place] [facility] 2018-11 Yes 20mg Take 20 mg Univers n 20 mg 0-10 by mouth. ity of tablet 00:00: [place] [facility] 2018-11 Yes 20mg Take 20 mg Univers n 20 mg 0-10 by mouth. ity of tablet 00:00: [place] [facility] atorvasta 2018-11 Yes 20mg Take 20 mg Univers n 20 mg 0-10 by mouth. ity of tablet 00:00: [place] [facility] 2018-11 Yes 20mg Take 20 mg Univers n 20 mg 0-10 by mouth. ity of tablet 00:00: [place] [facility] 2018-11 Yes 20mg Take 20 mg Univers n 20 mg 0-10 by mouth. ity of tablet 00:00: [place] [facility] atorvasta 2018-11 Yes 20mg Take 20 mg Univers n 20 mg 0-10 by mouth. ity of tablet 00:00: [place] [facility] 2018-11 Yes 20mg Take 20 mg Univers n 20 mg 0-10 by mouth. ity of tablet 00:00: [address] Albuterol Yes [place] EVERY 4 Mem oria Neb 7-17 [facility] HOURS l 00:00: RESPIRATOR [place] 00 Y Albuterol Yes [place] TWICE Memor ia Sulfate 7-17 [place] DAILY l 00:00: NEEDED PRN [place] 00 For Shortness Of Breath Albuterol Yes TWICE Memoria Sulfate 7-15 DAILY l 00:00: NEEDED PRN [place] 00 For Shortness Of Breath Atomoxetine 2018- Yes DAILY Memor ia Hcl 7-15 l 00:00: Carvedilol 2019-0 Yes TWICE Memori a 7-15 DAILY l 00:00: Citalopram 2019-0 Yes DAILY Memori a Hydrobromid 7-15 l e 00:00: Furosemide 2019-0 Yes DAILY Memori a 7-15 l 00:00: Hydralazine 2019-0 Yes THREE Memor ia Hcl 7-15 TIMES A l 00:00: DAY Lisinopril 2019-0 Yes DAILY Memori a 7-15 l 00:00: Isosorbide 2019-0 Yes THREE Memori a Dinit 7-15 TIMES A l 00:00: DAY Tizanidine 2019-0 Yes TWICE Memori a Hcl 7-15 DAILY l 00:00: Metoprolol 2019-0 Yes DAILY Memori a Succinate 5-29 l 00:00: Vortioxetin 2019-0 Yes TWICE Memor ia e 5-29 DAILY l Hydrobromid 00:00: [place] n e 00 Colchicine 2019-0 Yes TWICE Memori a 5-29 DAILY l 00:00: Clonazepam 2019-0 Yes TWICE Memori a 5-29 DAILY l 00:00: Atorvastati 2019-0 Yes AT BEDTIME Memoria n Calcium 5-29 l 00:00: Lisinopril 2019-0 Yes DAILY Memori a 5-29 l 00:00: amLODIPine 2018-0 Yes 5mg Take 5 mg Un christie 5 mg tablet 5-08 by mouth ity of 14:50: daily. [place] [address] Medical Branch HYDROcodone 2018-0 Yes 1{tbl} Take 1 Un christie -acetaminop 5-08 tablet by ity of hen (LendAmend) 14:50: mouth [place] 7.5-325 mg 10 every [...] -acetaminop 5-08 tablet by ity of hen (LendAmend) 14:50: mouth [place] 7.5-325 mg 10 every 6 Medica l per tablet (six) Branch hours as needed for Pain. HYDROcodone 2018-0 Yes 1{tbl} Take 1 Un christie -acetaminop 5-08 tablet by ity of hen (LendAmend) 14:50: mouth [place] 7.5-325 mg 10 every 6 Medica l per tablet (six) Branch hours as needed for Pain. HYDROcodone 2018-0 Yes 1{tbl} Take 1 Un christie -acetaminop 5-08 tablet by ity of hen (LendAmend) 14:50: mouth [place] 7.5-325 mg 10 every 6 Medica l per tablet (six) Branch hours as needed for Pain. HYDROcodone 2018-0 Yes 1{tbl} Take 1 Un christie -acetaminop 5-08 tablet by ity of hen (LendAmend) 14:50: mouth [place] 7.5-325 mg 10 every 6 Medica l per tablet (six) Branch hours as needed for Pain. HYDROcodone 2018-0 Yes 1{tbl} Take 1 Un christie -acetaminop 5-08 tablet by ity of hen (LendAmend) 14:50: mouth [place] 7.5-325 mg 10 every 6 Medica l per tablet (six) Branch hours as needed for Pain. HYDROcodone 2018-0 Yes 1{tbl} Take 1 Un christie -acetaminop 5-08 tablet by ity of hen (LendAmend) 14:50: mouth [place] 7.5-325 mg 10 every 6 Medica l per tablet (six) Branch hours as needed for Pain. HYDROcodone 2018-0 Yes 1{tbl} Take 1 Un christie -acetaminop 5-08 tablet by ity of hen (LendAmend) 14:50: mouth [place] 7.5-325 mg 10 every 6 Medica l per tablet (six) Branch hours as needed for Pain. HYDROcodone 2018-0 Yes 1{tbl} Take 1 Un christie -acetaminop 5-08 tablet by ity of hen (LendAmend) 14:50: mouth [place] 7.5-325 mg 10 every 6 Medica l per tablet (six) Branch hours as needed for Pain. HYDROcodone 2018-0 Yes 1{tbl} Take 1 Un christie -acetaminop 5-08 tablet by ity of hen (NORCO) 14:50: mouth [place] 7.5-325 mg 10 every 6 Medica l per tablet (six) Branch hours as needed for Pain. HYDROcodone 0 Yes 1{tbl} Take 1 Un christie -acetaminop [...] Constipati Branch on. lisinopril Yes Take by Univ ers (PRINIVIL,Z 5-08 mouth ity of ESTRIL) 40 14:49: daily. [place] mg tablet Medical Branch multivitami Yes 1{tbl} Take 1 Tab Univers n tablet 5-08 by mouth ity of 14:49: daily. Medical Branch lisinopril Yes Take by Univ ers (PRINIVIL,Z 5-08 mouth ity of ESTRIL) 40 14:49: daily. [place] mg tablet Medical Branch multivitami Yes 1{tbl} Take 1 Tab Univers n tablet 5-08 by mouth ity of 14:49: daily. [place] [facility] lisinopril 2017- Yes Take by Univ ers (PRINIVIL,Z 5-08 mouth ity of ESTRIL) 40 14:49: daily. [place] mg tablet 02 Medical Branch multivitami Yes 1{tbl} Take 1 Tab Univers n tablet 5-08 by mouth ity of 14:49: daily. Medical Branch lisinopril 2017- Yes Take by Univ ers (PRINIVIL,Z 5-08 mouth ity of ESTRIL) 40 14:49: daily. [place] mg tablet 02 Medical Branch multivitami Yes 1{tbl} Take 1 Tab Univers n tablet 5-08 by mouth ity of 14:49: daily. Medical Branch lisinopril 2017-0 Yes Take by Univ ers (PRINIVIL,Z 5-08 mouth ity of ESTRIL) 40 14:49: daily. [place] mg tablet 02 Medical Branch multivitami 0 Yes 1{tbl} Take 1 Tab Univers n tablet 5-08 by mouth ity of 14:49: daily. Medical Branch lisinopril 2017-0 Yes Take by Univ ers (PRINIVIL,Z 5-08 mouth ity of ESTRIL) 40 14:49: daily. [place] mg tablet Medical Branch multivitami Yes 1{tbl} Take 1 Tab Univers n tablet 5-08 by mouth ity of 14:49: daily. Medical Branch lisinopril 2017- Yes Take by Univ ers (PRINIVIL,Z 5-08 mouth ity of ESTRIL) 40 14:49: daily. [place] mg tablet Medical Branch multivitami Yes 1{tbl} Take 1 Tab Univers n tablet 5-08 by mouth ity of 14:49: daily. Medical Branch lisinopril 2017-0 Yes Take by Univ ers (PRINIVIL,Z 5-08 mouth ity of ESTRIL) 40 14:49: daily. [place] mg tablet 02 Medical Branch multivitami Yes 1{tbl} Take 1 Tab Univers n tablet 5-08 by mouth ity of 14:49: daily. Medical Branch lisinopril 2017-0 Yes Take by Univ ers (PRINIVIL,Z 5-08 mouth ity of ESTRIL) 40 14:49: daily. [place] mg tablet 02 Medical Branch multivitami Yes 1{tbl} Take 1 Tab Univers n tablet 5-08 by mouth ity of 14:49: daily. Medical Branch lisinopril 2017-0 Yes Take by Univ ers (PRINIVIL,Z 5-08 mouth ity of ESTRIL) 40 14:49: daily. [place] mg tablet 02 Medical Branch multivitami 0 Yes 1{tbl} Take 1 Tab Univers n tablet 5-08 by mouth ity of 14:49: daily. Medical Branch lisinopril Yes Take by [place] [facility] ers (PRINIVIL,Z 5-08 mouth ity of ESTRIL) 40 14:49: daily. [place] mg tablet Medical Branch multivitami Yes 1{tbl} Take 1 Tab Univers n tablet 5-08 by mouth ity of 14:49: daily. Medical Branch lisinopril Yes Take by [place] [facility] ers (PRINIVIL,Z 5-08 mouth ity of ESTRIL) 40 14:49: daily. [place] mg tablet Medical Branch multivitami Yes 1{tbl} Take 1 Tab Univers n tablet 5-08 by mouth ity of 14:49: daily. [place] [facility] Branch lisinopril Yes Take by [place] [facility] ers (PRINIVIL,Z 5-08 mouth ity of ESTRIL) 40 14:49: daily. [place] mg tablet Medical Branch furosemide Yes 20mg Take 20 mg U nivers (LASIX) 40 5-08 by mouth ity o f mg tablet 14:49: daily. [place] [address] Medical Branch pantoprazol Yes 40mg Take 40 mg Univers e 5-08 by mouth ity of (PROTONIX) 14:49: daily. [place] 40 mg EC Medical tablet Branch citalopram Yes 20mg Take 20 mg U nivers (CELEXA) 20 5-08 by mouth ity of mg tablet 14:49: daily. [address] Branch traZODONE Yes 50mg Take 50 mg Un christie (DESYREL) 5-08 by mouth ity of 50 mg 14:49: at [place] tablet 02 bedtime. Medical Branch rOPINIRole Yes 2mg Take 2 mg Un christ[place] (REQUIP) 2 5-08 by mouth ity o f mg tablet 14:49: at [place] 02 bedtime. Medical Branch tiZANidine 0 Yes [...] of 14:49: daily. Medical Branch BIOTIN ORAL 2017-0 Yes 1{tbl} Take 1 Tab Univers 5-08 by mouth ity of 14:49: daily. Medical Branch levothyroxi 2017- Yes [id number] TAKE 1 Univers ne 25 mcg 5-08 TABLET BY ity o f tablet 00:00: MOUTH IN [place] THE Medical MORNING Branch levothyroxi 2017-0 Yes [id number] TAKE 1 Univers ne 25 mcg 5-08 TABLET BY ity o f tablet 00:00: MOUTH IN [place] THE Medical MORNING Branch levothyroxi 2017-0 Yes [id number] TAKE 1 Univers ne 25 mcg 5-08 TABLET BY ity o f tablet 00:00: MOUTH IN [place] THE Medical MORNING Branch levothyroxi 2017-0 Yes [id number] TAKE 1 Univers ne 25 mcg 5-08 TABLET BY ity o f tablet 00:00: MOUTH IN [place] 00 THE Medical MORNING Branch levothyroxi 2017-0 Yes [id number] TAKE 1 Univers ne 25 mcg 5-08 TABLET BY ity o f tablet 00:00: MOUTH IN [place] 00 THE Medical MORNING Branch levothyroxi 2017-0 Yes [id number] TAKE 1 Univers ne 25 mcg 5-08 TABLET BY ity o f tablet 00:00: MOUTH IN [place] 00 THE Medical MORNING Branch levothyroxi 2017-0 Yes [id number] TAKE 1 Univers ne 25 mcg 5-08 TABLET BY ity o f tablet 00:00: MOUTH IN [place] 00 THE Medical MORNING Branch levothyroxi 2017-0 Yes [id number] TAKE 1 Univers ne 25 mcg 5-08 TABLET BY ity o f tablet 00:00: MOUTH IN [place] 00 THE Medical MORNING Branch levothyroxi 2017-0 Yes [id number] TAKE 1 Univers ne 25 mcg 5-08 TABLET BY ity o f tablet 00:00: MOUTH IN [place] 00 THE Medical MORNING Branch levothyroxi 2017-0 Yes TAKE 1 [facility] ne 25 mcg 5-08 TABLET BY l tablet 00:00: MOUTH IN [place] [address] THE MORNING levothyroxi Yes [id number] TAKE 1 Univers ne 25 mcg 5-08 TABLET BY ity o f tablet 00:00: MOUTH IN [place] 00 THE Medical MORNING Branch levothyroxi 2018-0 Yes [id number] TAKE 1 Univers ne 25 mcg 5-08 TABLET BY ity o f tablet 00:00: MOUTH IN [place] 00 THE Medical MORNING Branch levothyroxi 2018-0 Yes [id number] TAKE 1 Univers ne 25 mcg 5-08 TABLET BY ity o f tablet 00:00: MOUTH IN [place] 00 THE Medical MORNING Branch levothyroxi 2018-0 Yes [id number] TAKE 1 Univers ne 25 mcg 5-08 TABLET BY ity o f tablet 00:00: MOUTH IN [place] 00 THE Medical MORNING Branch levothyroxi 2018-0 Yes [id number] TAKE 1 Univers ne 25 mcg 5-08 TABLET BY ity o f tablet 00:00: MOUTH IN [place] 00 THE Medical MORNING Branch levothyroxi 2018-0 Yes [id number] TAKE 1 Univers ne 25 mcg 5-08 TABLET BY ity o f tablet 00:00: MOUTH IN [place] 00 THE Medical MORNING Branch levothyroxi 2018-0 Yes [id number] TAKE 1 Univers ne 25 mcg 5-08 TABLET BY ity o f tablet 00:00: MOUTH IN [place] 00 THE Medical MORNING Branch levothyroxi 2018-0 Yes [id number] TAKE 1 Univers ne 25 mcg 5-08 TABLET BY ity o f tablet 00:00: MOUTH IN [place] 00 THE Medical MORNING Branch levothyroxi 2018-0 Yes [id number] TAKE 1 Univers ne 25 mcg 5-08 TABLET BY ity o f tablet 00:00: MOUTH IN [place] 00 THE Medical MORNING Branch levothyroxi 2018-0 Yes [id number] TAKE 1 Univers ne 25 mcg 5-08 TABLET BY ity o f tablet 00:00: MOUTH IN [place] 00 THE Medical MORNING Branch levothyroxi 2018-0 Yes [id number] TAKE 1 Univers ne 25 mcg 5-08 TABLET BY ity o f tablet 00:00: MOUTH IN [place] 00 THE Medical MORNING Branch levothyroxi 2018-0 Yes [id number] TAKE 1 Univers ne 25 mcg 5-08 TABLET BY ity o f tablet 00:00: MOUTH IN [place] 00 THE Medical MORNING Branch levothyroxi 2018-0 Yes [id number] TAKE 1 Univers ne 25 mcg 5-08 TABLET BY ity o f tablet 00:00: MOUTH IN [place] 00 THE Medical MORNING Branch levothyroxi 2018-0 Yes [id number] TAKE 1 Univers ne 25 mcg 5-08 TABLET BY ity o f tablet 00:00: MOUTH IN 00 THE Medical MORNING Branch levothyroxi Yes [id number] TAKE 1 Univers ne 25 mcg 5-08 TABLET BY ity o f tablet 00:00: MOUTH IN 00 THE Medical MORNING Branch metoprolol 0 Yes 25mg Take 25 [...] daily. Medical Branch acetaminoph Yes Take by Uni vers en 08-04 mouth ity of (TYLENOL) 18:23: every 6 [place] 325 mg 06 (six) Medical tablet hours as Branch needed for Pain (scale 1-3). aspirin 81 Yes 81mg Take 81 mg U nivers mg EC 9-26 by mouth ity of tablet 18:23: daily. Medical Branch acetaminoph Yes Take by Uni vers en 08-04 mouth ity of (TYLENOL) 18:23: every 6 [place] 325 mg 06 (six) Medical tablet hours as Branch needed for Pain (scale 1-3). aspirin 81 Yes 81mg Take 81 mg U nivers mg EC 9-26 by mouth ity of tablet 18:23: daily. Medical Branch acetaminoph Yes Take by Uni vers en 08-04 mouth ity of (TYLENOL) 18:23: every 6 [place] 325 mg 06 (six) Medical tablet hours as Branch needed for Pain (scale 1-3). aspirin 81 Yes 81mg Take 81 mg U nivers mg EC 9-26 by mouth ity of tablet 18:23: daily. Medical Branch acetaminoph Yes Take by Uni vers en 08-04 mouth ity of (TYLENOL) 18:23: every 6 [place] 325 mg 06 (six) Medical tablet hours as Branch needed for Pain (scale 1-3). aspirin 81 0 Yes 81mg Take 81 mg U nivers mg EC 9-26 by mouth ity of tablet 18:23: daily. [address] [place] [address] [facility] [place] Yes Take by Uni vers en 08-04 mouth ity of (TYLENOL) 18:23: every 6 [place] 325 mg 06 (six) Medical tablet hours as Branch needed for Pain (scale 1-3). aspirin 81 2015-0 Yes 81mg Take 81 mg U nivers mg EC 9-26 by mouth ity of tablet 18:23: daily. [facility] acetamino Yes Take by Uni vers en 08-04 mouth ity of (TYLENOL) 18:23: every 6 [place] 325 mg 06 (six) Medical tablet hours as Branch needed for Pain (scale 1-3). aspirin 81 Yes 81mg Take 81 mg U nivers mg EC 9-26 by mouth ity of tablet 18:23: daily. [address] [place] [address] Yes Take by Uni vers en 08-04 mouth ity of (TYLENOL) 18:23: every 6 [place] 325 mg 06 (six) Medical tablet hours as Branch needed for Pain (scale 1-3). aspirin 81 Yes 81mg Take 81 mg U nivers mg EC 9-26 by mouth ity of tablet 18:23: daily. [address] acetamino Yes Take by Uni vers en 08-04 mouth ity of (TYLENOL) 18:23: every 6 [place] 325 mg 06 (six) Medical tablet hours as Branch needed for Pain (scale 1-3). aspirin 81 Yes 81mg Take 81 mg U nivers mg EC 9-26 by mouth ity of tablet 18:23: daily. [facility] acetaminoph Yes Take by Uni vers en 08-04 mouth ity of (TYLENOL) 18:23: every 6 [place] 325 mg 06 (six) Medical tablet hours as Branch needed for Pain (scale 1-3). aspirin 81 2015-0 Yes 81mg Take 81 mg U nivers mg EC 9-26 by mouth ity of tablet 18:23: daily. [address] Yes Take by Uni vers en 08-04 mouth ity of (TYLENOL) 18:23: every 6 [place] 325 mg 06 (six) Medical tablet hours as Branch needed for Pain (scale 1-3). aspirin 81 Yes 81mg Take 81 mg U nivers mg EC 9-26 by mouth ity of tablet 18:23: daily. [address] Yes Take by Uni vers en 08-04 mouth ity of (TYLENOL) 18:23: every 6 [place] 325 mg 06 (six) Medical tablet hours as Branch needed for Pain (scale 1-3). aspirin 81 Yes 81mg Take 81 mg U nivers mg EC 9-26 by mouth ity of tablet 18:23: daily. [address] Yes Take by Uni vers en 08-04 mouth ity of (TYLENOL) 18:23: every 6 [place] 325 mg 06 (six) Medical tablet hours as Branch needed for Pain (scale 1-3). aspirin 81 Yes 81mg Take 81 mg U nivers mg EC 9-26 by mouth ity of tablet 18:23: daily. [address] Yes Take by Uni vers en 08-04 mouth ity of (TYLENOL) 18:23: [...] EVERY Medical MORNING Branch AFTER BREAKFAST meloxicam No TAKE 1 Memori a (MOBIC) 15 8-23 TABLET(S) l mg tablet 00:00: BY MOUTH Herm gabriel 00 EVERY MORNING AFTER BREAKFAST meloxicam 2020- No TAKE 1 Unive rs (MOBIC) 15 8-23 05-25 TABLET(S) ity of mg tablet 00:00: 00:00 BY MOUTH Reinaldo as 00 :00 EVERY Medical MORNING Branch AFTER BREAKFAST proMETHazin Yes [id number] 25mg Take 1 Tab Univers e 4-01 by mouth ity of (PHENERGAN) 00:00: every 6 Reinaldo as 25 mg 00 (six) Medical tablet hours as Branch needed for Nausea and Vomiting (N/V). proMETHazin Yes [id number] 25mg Take 1 Tab Univers e 4-01 by mouth ity of (PHENERGAN) 00:00: every 6 Reinaldo as 25 mg 00 (six) Medical tablet hours as Branch needed for Nausea and Vomiting (N/V). proMETHazin Yes [id number] 25mg Take 1 Tab Univers e 4-01 by mouth ity of (PHENERGAN) 00:00: every 6 Reinaldo as 25 mg 00 (six) Medical tablet hours as Branch needed for Nausea and Vomiting (N/V). proMETHazin Yes [id number] 25mg Take 1 Tab Univers e 4-01 by mouth ity of (PHENERGAN) 00:00: every 6 Reinaldo as 25 mg 00 (six) Medical tablet hours as Branch needed for Nausea and Vomiting (N/V). proMETHazin Yes [id number] 25mg Take 1 Tab Univers e 4-01 by mouth ity of (PHENERGAN) 00:00: every 6 Reinaldo as 25 mg 00 (six) Medical tablet hours as Branch needed for Nausea and Vomiting (N/V). proMETHazin Yes [id number] 25mg Take 1 Tab Univers e 4-01 by mouth ity of (PHENERGAN) 00:00: every 6 Reinaldo as 25 mg 00 (six) Medical tablet hours as Branch needed for Nausea and Vomiting (N/V). proMETHazin Yes [id number] 25mg Take 1 Tab Univers e 4-01 by mouth ity of (PHENERGAN) 00:00: every 6 Reinaldo as 25 mg 00 (six) Medical tablet hours as Branch needed for Nausea and Vomiting (N/V). proMETHazin Yes [id number] 25mg Take 1 Tab Univers e 4-01 by mouth ity of (PHENERGAN) 00:00: every 6 Reinaldo as 25 mg 00 (six) Medical tablet hours as Branch needed for Nausea and Vomiting (N/V). proMETHazin Yes [id number] 25mg Take 1 Tab Univers e 4-01 by mouth ity of (PHENERGAN) 00:00: every 6 Reinaldo as 25 mg 00 (six) Medical tablet hours as Branch needed for Nausea and Vomiting (N/V). proMETHazin Yes [id number] 25mg Take 1 Tab Univers e 4-01 by mouth ity of (PHENERGAN) 00:00: every 6 Reinaldo as 25 mg 00 (six) Medical tablet hours as Branch needed for Nausea and Vomiting (N/V). proMETHazin 2015-0 Yes [id number] 25mg Take 1 Tab Univers e 4-01 by mouth ity of (PHENERGAN) 00:00: every 6 Reinaldo as 25 mg 00 (six) Medical tablet hours as Branch needed for Nausea and Vomiting (N/V). proMETHazin 2015- Yes [id number] 25mg Take 1 Tab Univers e 4-01 by mouth ity of (PHENERGAN) 00:00: every 6 Reinaldo as 25 mg 00 (six) Medical tablet hours as Branch needed for Nausea and Vomiting (N/V). proMETHazin Yes [id number] 25mg Take 1 Tab Univers e 4-01 by mouth ity of (PHENERGAN) 00:00: every 6 Reinaldo as 25 mg 00 (six) Medical tablet hours as Branch needed for Nausea and Vomiting (N/V). proMETHazin Yes [id number] 25mg Take 1 Tab Univers e 4-01 by mouth ity of (PHENERGAN) 00:00: every 6 Reinaldo as 25 mg 00 (six) Medical tablet hours as Branch needed for Nausea and Vomiting (N/V). proMETHazin Yes [id number] 25mg Take 1 Tab Univers e 4-01 by mouth ity of (PHENERGAN) 00:00: every 6 Reinaldo as 25 mg 00 (six) Medical tablet hours as Branch needed for Nausea and Vomiting (N/V). proMETHazin Yes [id number] 25mg Take 1 Tab Univers e 4-01 by mouth ity of (PHENERGAN) 00:00: every 6 Reinaldo as 25 mg 00 (six) Medical tablet hours as Branch needed for Nausea and Vomiting (N/V). proMETHazin Yes [id number] 25mg Take 1 Tab Univers e 4-01 by mouth ity of (PHENERGAN) 00:00: every 6 Reinaldo as 25 mg 00 (six) Medical tablet hours as Branch needed for Nausea and Vomiting (N/V). proMETHazin Yes [id number] 25mg Take 1 Tab Univers e 4-01 by mouth ity of (PHENERGAN) 00:00: every 6 Reinaldo as 25 mg 00 (six) Medical tablet hours as Branch needed for Nausea and Vomiting (N/V). proMETHazin 2015-0 Yes [id number] 25mg Take 1 Tab Univers e 4-01 by mouth ity of (PHENERGAN) 00:00: every 6 Reinaldo as 25 mg 00 (six) Medical tablet hours as Branch needed for Nausea and Vomiting (N/V). proMETHazin 2015-0 Yes [id number] 25mg Take 1 Tab Univers e 4-01 by mouth ity of (PHENERGAN) 00:00: every 6 Reinaldo as 25 mg 00 (six) Medical tablet hours as Branch needed for Nausea and Vomiting (N/V). proMETHazin 2015- Yes [id number] 25mg Take 1 Tab Univers e 4-01 by mouth ity of (PHENERGAN) 00:00: every 6 Reinaldo as 25 mg 00 (six) Medical tablet hours as Branch needed for Nausea and Vomiting (N/V). proMETHazin 2015- Yes [id number] 25mg Take 1 Tab Univers e 4-01 by mouth ity of (PHENERGAN) 00:00: every 6 Reinaldo as 25 mg 00 (six) Medical tablet hours as Branch needed for Nausea and Vomiting (N/V). proMETHazin Yes [id number] 25mg Take 1 Tab Univers e 4-01 by mouth ity of (PHENERGAN) 00:00: every 6 Reinaldo as 25 mg 00 (six) Medical tablet hours as Branch needed for Nausea and Vomiting (N/V). proMETHazin 2015- Yes [id number] 25mg Take 1 Tab Univers e 4-01 by mouth ity of (PHENERGAN) 00:00: every 6 Reinaldo as 25 mg 00 (six) Medical tablet hours as Branch needed for Nausea and Vomiting (N/V). promethazin 0 Yes 25mg Q6H Take 25 mg Methodi e 4-[address] (PHENERGAN) 00:00: every 6 Hos jonathan 25 MG 00 (six) l tablet hours as needed. proMETHazin 2015-0 Yes Take 1 Tab Memoria e 4-01 by mouth l (PHENERGAN) 00:00: every 6 Her bailey 25 mg 00 (six) tablet hours as needed for Nausea and Vomiting (N/V). promethazin 2015-0 Yes 25mg Q6H Take 25 mg Methodi e 4-[address] (PHENERGAN) 00:00: every 6 Hos jonathan 25 MG 00 (six) l tablet hours as needed. Levothyroxi 2014-0 Yes DAILY Memor ia ne 4-20 l 00:00: Trazodone 2014-0 Yes AT BEDTIME Me moria 4-20 l 00:00: Hydromorpho 2014-0 Yes Q6H PRN Mem oria ne 4-20 For Pain l 00:00: Scale 5-7 (Moderate) Potassium 2011-0 Yes DAILY Memoria Oral Tab 4-04 l 00:00: Lisinopril 2011-0 Yes DAILY Memori a 4-04 l 00:00: Ropinirole Yes AT BEDTIME M emoria Hcl 4-04 l 00:00: Immunizations Ordered Filled Immunization Date Status Comments [facility] e Immunization Name Name Pneumococcal 2020-09-12 Completed [...] ical PPSV23 (PNEUMOVAX) Branch Pneumococcal 2020-09-12 Completed [facility] Her bailey Polysaccharide, 00:00:00 PPSV23 (PNEUMOVAX) Influenza Virus 2019-08-18 Completed Universit y of Vaccine Quad IM 00:00:00 [facility] ical Multi-dose 6+ MO Branch Zoster(Zostavax)( 2019-08-18 Completed Unive rsity of dayne) 00:00:00 [facility] Influenza Virus 2019-08-18 Completed Universit y of Vaccine Quad IM 00:00:00 [place] [facility] Multi-dose 6+ MO Branch Zoster(Zostavax)( 2019-08-18 Completed Unive rsity of dayne) 00:00:00 [facility] Influenza Virus 2019-08-18 Completed Universit y of Vaccine Quad IM 00:00:00 [place] [facility] Multi-dose 6+ MO Branch Zoster(Zostavax)( 2019-08-18 Completed Unive rsity of dayne) 00:00:00 [facility] Influenza Virus 2019-08-18 Completed Universit y of Vaccine Quad IM 00:00:00 [place] [facility] Multi-dose 6+ MO Branch Zoster(Zostavax)( 2019-08-18 Completed Unive rsity of dayne) 00:00:00 [facility] Influenza Virus 2019-08-18 Completed Universit y of Vaccine Quad IM 00:00:00 [place] [facility] Multi-dose 6+ MO Branch Zoster(Zostavax)( 2019-08-18 Completed Unive rsity of ingles) 00:00:00 [facility] Influenza Virus 2019-08-18 Completed Universit y of Vaccine Quad IM 00:00:00 [place] [facility] Multi-dose 6+ MO Branch Zoster(Zostavax)( 2019-08-18 Completed Unive rsity of ingles) 00:00:00 [facility] Influenza Virus 2019-08-18 Completed Universit y of Vaccine Quad IM 00:00:00 [place] [facility] Multi-dose 6+ MO Branch Zoster(Zostavax)( 2019-08-18 Completed Unive rsity of ingles) 00:00:00 [facility] Influenza Virus 2019-08-18 Completed Universit y of Vaccine Quad IM 00:00:00 [place] [facility] Multi-dose 6+ MO Branch Zoster(Zostavax)( 2019-08-18 Completed Unive rsity of ingles) 00:00:00 [facility] Influenza Virus 2019-08-18 Completed Universit y of Vaccine Quad IM 00:00:00 [place] [facility] Multi-dose 6+ MO Branch Zoster(Zostavax)( 2019-08-18 Completed Unive rsity of ingles) 00:00:00 [facility] Influenza Virus 2019-08-18 Completed Universit y of Vaccine Quad IM 00:00:00 [place] [facility] Multi-dose 6+ MO Branch Zoster(Zostavax)( 2019-08-18 Completed Unive rsity of ingles) 00:00:00 [facility] Influenza Virus 2019-08-18 Completed Universit y of Vaccine Quad IM 00:00:00 [place] [facility] Multi-dose 6+ MO Branch Zoster(Zostavax)( 2019-08-18 Completed Unive rsity of ingles) 00:00:00 [facility] Influenza Virus 2019-08-18 Completed Universit y of Vaccine Quad IM 00:00:00 [place] [facility] Multi-dose 6+ MO Branch Zoster(Zostavax)( 2019-08-18 Completed Unive rsity of ingles) 00:00:00 [facility] Influenza Virus 2019-08-18 Completed Universit y of Vaccine Quad IM 00:00:00 [place] [facility] Multi-dose 6+ MO Branch Zoster(Zostavax)( 2019-08-18 Completed Unive rsity of ingles) 00:00:00 [facility] Influenza Virus 2019-08-18 Completed Universit y of Vaccine Quad IM 00:00:00 [facility] ical Multi-dose 6+ MO Branch Zoster(Zostavax)( 2019-08-18 Completed Unive rsity of ingles) 00:00:00 [facility] Influenza Virus 2019-08-18 Completed Universit y of Vaccine Quad IM 00:00:00 [facility] ical Multi-dose 6+ MO Branch Zoster(Zostavax)( 2019-08-18 Completed Unive rsity of ingles) 00:00:00 [facility] Influenza Virus 2019-08-18 Completed Universit y of Vaccine Quad IM 00:00:00 [facility] ical Multi-dose 6+ MO Branch Zoster(Zostavax)( 2019-08-18 Completed Unive rsity of ingles) 00:00:00 [facility] Influenza Virus 2019-08-18 Completed Universit y of Vaccine Quad IM 00:00:00 [facility] ical Multi-dose 6+ MO Branch Zoster(Zostavax)( 2019-08-18 Completed Unive rsity of ingles) 00:00:00 [facility] Influenza Virus 2019-08-18 Completed [facility] Mohan Vaccine Quad IM 00:00:00 Multi-dose 6+ MO Zoster(Zostavax)( 2019-08-18 Completed Eva oscar) 00:00:00 Zoster(Zostavax)( 2019-05-02 Completed Unive rsity of ingles) 00:00:00 [facility] Branch Zoster(Zostavax)( 2019-05-02 Completed Unive rsity of ingles) 00:00:00 [facility] Branch Zoster(Zostavax)( 2019-05-02 Completed Unive rsity of ingles) 00:00:00 [facility] Branch Zoster(Zostavax)( 2019-05-02 Completed Unive rsity of ingles) 00:00:00 [facility] Branch Zoster(Zostavax)( 2019-05-02 Completed Unive rsity of ingles) 00:00:00 [facility] Branch Zoster(Zostavax)( 2019-05-02 Completed Unive rsity of ingles) 00:00:00 [facility] Branch Zoster(Zostavax)( 2019-05-02 Completed Unive rsity of ingles) 00:00:00 [facility] Branch Zoster(Zostavax)( 2019-05-02 Completed Unive rsity of ingles) 00:00:00 [facility] Zoster(Zostavax)( 2019-05-02 Completed Unive rsity of ingles) 00:00:00 [facility] Branch Zoster(Zostavax)( 2019-05-02 Completed Unive rsity of ingles) 00:00:00 [facility] Zoster(Zostavax)( 2019-05-02 Completed Unive rsity of ingles) 00:00:00 [facility] Zoster(Zostavax)( 2019-05-02 Completed Unive rsity of ingles) 00:00:00 [facility] Zoster(Zostavax)( 2019-05-02 Completed Unive rsity of ingles) 00:00:00 [facility] Zoster(Zostavax)( 2019-05-02 Completed Unive rsity of ingles) 00:00:00 [facility] Zoster(Zostavax)( 2019-05-02 Completed Unive rsity of ingles) 00:00:00 [facility] Zoster(Zostavax)( 2019-05-02 Completed Unive rsity of ingles) 00:00:00 [facility] Zoster(Zostavax)( 2019-05-02 Completed Unive rsity of ingles) 00:00:00 [facility] Zoster(Zostavax)( 2019-05-02 Completed Eva oscar) 00:00:00 Influenza Virus 2016-08-04 Completed Universit y of Vaccine Quad IM 3+ 00:00:00 [facility] Influenza Virus 2016-08-04 Completed Universit y of Vaccine Quad IM 3+ 00:00:00 [facility] Influenza Virus 2016-08-04 Completed Universit y of Vaccine Quad IM 3+ 00:00:00 [facility] Influenza Virus 2016-08-04 Completed Universit y of Vaccine Quad IM 3+ 00:00:00 [facility] Influenza Virus 2016-08-04 Completed Universit y of Vaccine Quad IM 3+ 00:00:00 [facility] Influenza Virus 2016-08-04 Completed Universit y of Vaccine Quad IM 3+ 00:00:00 [facility] Influenza Virus 2016-08-04 Completed Universit y of Vaccine Quad IM 3+ 00:00:00 [facility] Influenza Virus 2016-08-04 Completed Universit y of Vaccine Quad IM 3+ 00:00:00 [facility] Influenza Virus 2016-08-04 Completed Universit y of Vaccine Quad IM 3+ 00:00:00 [facility] Influenza Virus 2016-08-04 Completed Universit y of Vaccine Quad IM 3+ 00:00:00 [facility] Influenza Virus 2016-08-04 Completed Universit y of Vaccine Quad IM 3+ 00:00:00 [facility] Influenza Virus 2016-08-04 Completed Universit y of Vaccine Quad IM 3+ 00:00:00 [facility] Influenza Virus 2016-08-04 Completed Universit y of Vaccine Quad IM 3+ 00:00:00 [facility] Influenza Virus 2016-08-04 Completed Universit y of Vaccine Quad IM 3+ 00:00:00 [facility] Influenza Virus 2016-08-04 Completed Universit y of Vaccine Quad IM 3+ 00:00:00 [facility] Influenza Virus 2016-08-04 Completed Universit y of Vaccine Quad IM 3+ 00:00:00 [facility] Influenza Virus 2016-08-04 Completed Universit y of Vaccine Quad IM 3+ 00:00:00 [facility] Influenza Virus 2016-08-04 Completed Universit y of Vaccine Quad IM 3+ 00:00:00 [facility] Influenza Virus 2016-08-04 Completed Universit y of Vaccine Quad IM 3+ 00:00:00 [facility] Influenza Virus 2016-08-04 Completed Universit y of Vaccine Quad IM 3+ 00:00:00 [facility] Influenza Virus 2016-08-04 Completed Universit y of Vaccine Quad IM 3+ 00:00:00 [facility] Influenza Virus 2016-08-04 Completed Universit y of Vaccine Quad IM 3+ 00:00:00 [facility] Influenza Virus 2016-08-04 Completed Universit y of Vaccine Quad IM 3+ 00:00:00 [facility] Influenza Virus 2016-08-04 Completed Universit y of Vaccine Quad IM 3+ 00:00:00 [facility] Branch Influenza Virus 2016-08-[address] [facility] Vaccine Quad IM 3+ 00:00:00 YRS Vital Signs Vital Name Observation Time Observation Value Comments Source Systolic blood 2021-05-31 21:42:00 145 mm[Hg] Univer sity of pressure [facility] Diastolic blood 2021-05-31 21:42:00 88 mm[Hg] Unive rsity of pressure [facility] Heart rate 2021-05-31 21:41:00 69 /min Universi ty of [facility] Body height 2021-05-31 21:41:00 167.6 cm Universi ty of [facility] Body weight 2021-05-31 21:41:00 67.586 kg Universi ty of [facility] BMI 2021-05-31 21:41:00 24.05 kg/m2 Universi ty of [facility] Systolic blood 2021-05-31 21:42:00 145 mm[Hg] Univer sity of pressure [facility] Diastolic blood 2021-05-31 21:42:00 88 mm[Hg] Unive rsity of pressure [facility] Heart rate 2021-05-31 21:41:00 69 /min [facility] [place] [facility] Body height 2021-05-31 21:41:00 167.6 cm [facility]i ty of [facility] [place] Body weight 2021-05-31 21:41:00 67.586 kg Universi ty of [facility] [place] BMI 2021-05-31 21:41:00 24.05 kg/m2 Universi ty of [facility] Respiratory rate 2021-04-03 17:09:00 20 /min [facility] Oxygen saturation in 2021-04-03 17:09:00 94 /min [facility] Arterial blood by [facility] Pulse oximetry Branch Systolic blood 2021-04-03 16:32:00 133 mm[Hg] Univer sity of pressure [facility] Diastolic blood 2021-04-03 16:32:00 62 mm[Hg] Unive rsity of pressure [facility] Heart rate 2021-04-03 16:32:00 51 /min Universi ty of [facility] Body temperature 2021-04-03 16:32:00 36.89 Farnaz Univ ersity [facility] Body height 2021-04-02 07:24:00 167.6 cm [facility]i [facility] Body weight 2021-04-02 00:32:00 70.761 kg [facility] [place] [facility] BMI 2021-04-02 00:32:00 25.18 kg/m2 [facility] Respiratory rate 2021-04-03 17:09:00 20 /min Univ ersity of [facility] Oxygen saturation in 2021-04-03 17:09:00 94 /min University of Arterial blood by [place] [employer] dyan Pulse oximetry Branch Systolic blood 2021-04-03 16:32:00 133 mm[Hg] Univer sity of pressure [facility] Diastolic blood 2021-04-03 16:32:00 62 mm[Hg] Unive rsity of pressure [facility] Heart rate 2021-04-03 16:32:00 51 /min [facility]i ty [facility] Body temperature 2021-04-03 16:32:00 36.89 Farnaz Univ ersity of [facility] Body height 2021-04-02 07:24:00 167.6 cm [facility]i ty [facility] Body weight 2021-04-02 00:32:00 70.761 kg [facility] BMI 2021-04-02 00:32:00 25.18 kg/m2 [facility] Systolic blood 2021-03-04 20:21:00 123 mm[Hg] Univer sity of pressure [facility] Diastolic blood 2021-03-04 20:21:00 74 mm[Hg] Unive rsity of pressure [facility] Heart rate 2021-03-04 20:21:00 69 /min [facility] Body height 2021-03-04 20:21:00 167.6 cm [facility] Body weight 2021-03-04 20:21:00 70.761 kg [facility] BMI 2021-03-04 20:21:00 25.18 kg/m2 [facility] Oxygen saturation in 2021-03-04 20:21:00 100 /min University of Arterial blood by [place] [facility] Pulse oximetry Branch Systolic blood 2021-03-04 20:21:00 123 mm[Hg] Univer sity of pressure [facility] Diastolic blood 2021-03-04 20:21:00 74 mm[Hg] Unive rsity of pressure [facility] Heart rate 2021-03-04 20:21:00 69 /min Universi ty of [facility] [place] Body height 2021-03-04 20:21:00 167.6 cm Universi ty of [facility] [place] Body weight 2021-03-04 20:21:00 70.761 kg [facility] [place] [facility] BMI 2021-03-04 20:21:00 25.18 kg/m2 Universi ty of [facility] Oxygen saturation in 2021-03-04 20:21:00 100 /min University Arterial blood by [facility] Pulse oximetry Branch Systolic blood 2020-08-30 20:05:00 156 mm[Hg] Univer sity of pressure [facility] Diastolic blood 2020-08-30 20:05:00 81 mm[Hg] Unive rsity of pressure [facility] Heart rate 2020-08-30 20:05:00 62 /min Universi ty of [place] [facility] [place] Body temperature 2020-08-30 20:05:00 36.67 Farnaz Univ ersity of [facility] Branch Respiratory rate 2020-08-30 20:05:00 16 /min Univ ersity of [facility] Branch Body height 2020-08-30 20:05:00 167.6 cm Universi ty of [facility] Body weight 2020-08-30 20:05:00 71.578 kg Universi ty of [facility] BMI 2020-08-30 20:05:00 25.47 kg/m2 Universi ty of [facility] Branch Systolic blood 2020-08-30 20:05:00 156 mm[Hg] Univer sity of pressure [facility] Diastolic blood 2020-08-30 20:05:00 81 mm[Hg] Unive rsity of pressure [facility] Heart rate 2020-08-30 20:05:00 62 /min [facility] Body temperature 2020-08-30 20:05:00 36.67 Farnaz Univ ersity of [facility] Branch Respiratory rate 2020-08-30 20:05:00 16 /min Univ ersity of [facility] Branch Body height 2020-08-30 20:05:00 167.6 cm [facility] Body weight 2020-08-30 20:05:00 71.578 kg [facility] BMI 2020-08-30 20:05:00 25.47 kg/m2 [facility] Systolic blood 2021-08-02 15:28:00 166 mm[Hg] [facility] pressure Diastolic blood 2021-08-02 15:28:00 79 mm[Hg] [facility] pressure Heart rate 2021-08-02 15:28:00 57 /min [facility] Body temperature 2021-08-02 15:28:00 36.89 Farnaz [facility] Respiratory rate 2021-08-02 15:28:00 18 /min [facility] Oxygen saturation in 2021-08-02 15:28:00 98 /min [facility] Arterial blood by Pulse oximetry Procedures Procedure Date / Time Performing Source Performed Clinician REFERRAL- REQUEST/RESPONSE 2022-01-01 Doctor Unassigned, [facility] 06:01:00 [place] [facility] PHYSICIAN ORDERS 2021-09-17 Doctor Unassigned, [facility] 06:01:00 [place] [facility] XR SHOULDER 2+ VIEWS RIGHT 2021-08-26 Gerald Mckeon [place] [facility] 15:52:14 MRI BRAIN WO CONTRAST 2021-08-09 [facility] 15:20:51 [facility] BRAIN WO CONTRAST 2021-08-09 [facility] 15:20:51 CELL COUNT AND DIFFERENTIAL, 2021-08-02 Tae Salazar [facility] BODY FLUID 21:32:00 NM BONE SCAN 3 PHASE 2021-08-02 Tae Salazar [facility] 20:23:00 CT UPPER EXTREMITY WO RIGHT 2021-08-02 Tae Salazar [facility] 18:25:00 [place] RAD NEEDLE ASPIRATION [facility]08[facility] 16[facility]:02 JOINT FLUID CULTURE 2021-08-02 Tae Salazar [facility] 16:25:00 ANAEROBIC CULTURE 2021-08-02 Tae Salazar [facility]osp [facility] 16:25:00 FUNGUS CULTURE 2021-08-02 Gabriels, [facility] 16:25:00 AFB CULTURE 2021-08-02 [facility] 16:25:00 FUNGUS SMEAR 2021-08-02 [facility] 16:25:00 AFB STAIN 2021-08-02 [facility] 16:25:00 REFERRAL- REQUEST/RESPONSE 2021-04-30 [facility] [place] [facility] BASIC METABOLIC PANEL (NA, K, 2021-04-03 [facility], CO2, GLUCOSE, BUN, 10:03:00 Medical B ranch CREATININE, [place]) ELECTROENCEPHALOGRAM 2021-04-03 Vicky [facility] 00:00:00 [facility] URINE CULTURE 2021-04-02 Ha[place] [facility] 03:50:00 [facility] TROPONIN I 2021-04-02 Haider [facility] 02:06:00 [facility] HEPATIC FUNCTION PANEL 2021-04-02 Haider [facility] ([id number]) (ALB,T.PRO,BILI 02:06:00 Medical Branch T,BU/BC,ALT,AST,ALK PHOS) BASIC METABOLIC PANEL (NA, K, 2021-04-02 Steven Maloney [facility] CL, CO2, GLUCOSE, BUN, 02:06:00 Medical B ranch CREATININE, CA) ETHANOL 2021-04-02 Ha[place] [facility] 02:06:00 [facility] N-TERMINAL PRO-BNP 2021-04-02 [employer] [facility] 02:06:00 [facility] COVID-19 (ID NOW RAPID 2021-04-02 Haider [facility] TESTING) 02:06:00 [facility] CT HEAD WO CONTRAST 2021-04-02 Setven Maloney [facility] 01:42:34 [facility] XR CHEST 1 VW 2021-04-02 [place] [facility] 01:20:37 [facility] AC PANEL 20 + LACTIC ACID 2021-04-02 Steven Maloney [facility] 01:13:00 [facility] URINE DRUG (IMMUNOASSAY) - 2021-04-02 Steven Maloney [facility] COMPREHENSIVE DRUG SCREEN 01:12:00 Medica l Branch CBC WITH DIFF 2021-04-02 Steven Maloney [facility] xa 01:12:00 Medical Branch PROTHROMBIN TIME / INR 2021-04-02 Steven Maloney [facility] 01:12:00 Medical Branch ACTIVATED PARTIAL THRMPLAS 2021-04-02 Steven Maloney [facility] MAMTA 01:12:00 Medical Branch URINALYSIS 2021-04-02 Steven Maloney [facility] xa 01:11:00 Medical Branch HB ECG ROUTINE & RHYTHM STRIP 2021-04-02 Steven Maloney [facility] 01:06:28 Medical Branch NOTICE OF PRIVACY PRACTICES 2021-04-02 Doctor Cassie, [facility] 00:25:37 [place] [facility] CONSENT/REFUSAL FOR DIAGNOSIS 2021-04-02 Doctor Cassie, [facility] AND TREATMENT 00:24:42 [facility] AGREEMENTS AUTHORIZATIONS AND 2021-04-01 Doctor Cassie, [facility] IRREVOCABLE ASSIGNMENTS (FORM 05:01:00 [facility] 2000) AUTHORIZATION TO RELEASE PHI 2021-03-04 Doctor Matthews, [facility] TO [facility] 05:01:00 [facility] REFERRAL- REQUEST/RESPONSE 2021-02-20 Doctor Cassie, [facility] 05:01:00 [facility] EXTERNAL PROVIDER RECORDS 2020-09-19 Doctor Cassie, [facility] 06:01:00 [facility] PATIENT FINANCIAL POLICY 2020-08-30 Doctor Cassie, [facility] 19:45:11 [facility] NO SHOW OR MISSED APPOINTMENT 2020-08-30 Doctor Cassie, [facility] POLICY ACKNOWLEDGEMENT 19:44:52 [facility] NOTICE OF PRIVACY PRACTICES 2020-08-30 Doctor Cassie, [facility] 19:44:13 [facility] CONSENT TO CONTACT FOR 2020-08-30 Doctor Matthews [facility] VOLUNTARY RESEARCH 19:43:51 [facility] CONSENT/REFUSAL FOR DIAGNOSIS 2020-08-30 Doctor Matthews, [facility] AND TREATMENT 19:43:19 [facility] ASSIGNMENT OF BENEFITS 2020-08-30 Doctor Unassigned, [facility] 19:42:42 [facility] Plan of Care Planned Activity Planned Date Details Comments Source Future Scheduled 2022-07-10 HEPATITIS B VACCINES Met [facility] Test 12:42:30 (1 of 3 - 3-dose series) [code = HEPATITIS B VACCINES (1 of 3 - 3-dose series)] Future Scheduled 2022-07-10 Pneumococcal Vaccine: [facility] Test 12:42:30 Pediatrics (0 to 5 Years) and At-Risk Patients (6 to 64 Years) (1 - PCV) [code = Pneumococcal Vaccine: Pediatrics (0 to 5 Years) and At-Risk Patients (6 to 64 Years) (1 - PCV)] Future Scheduled 2022-07-10 Hepatitis C screening [facility] Test 12:42:30 (procedure) [code = 434199991] Future Scheduled 2022-07-10 Screening for [facility] Test 12:42:30 malignant neoplasm of cervix (procedure) [code = 543243827] Future Scheduled 2022-07-10 BREAST CANCER [facility] Test 12:42:30 SCREENING [code = BREAST CANCER SCREENING] Future Scheduled 2022-07-10 COLONOSCOPY SCREENING [facility] Test 12:42:30 [code = COLONOSCOPY SCREENING] Future Scheduled 2022-07-10 SHINGLES VACCINES (1 [facility] Test 12:42:30 of 2) [code = SHINGLES VACCINES (1 of 2)] Future Scheduled 2022-07-10 COVID-19 VACCINE (2 - [facility] Test 12:42:30 Moderna series) [code = COVID-19 VACCINE (2 - Moderna series)] Future Scheduled 2022-07-10 INFLUENZA VACCINE Method [facility] Test 12:42:30 [code = INFLUENZA VACCINE] Future Scheduled 2022-02-08 Hepatitis C screening [facility] Test 18:08:57 (procedure) [code = 499055856] Future Scheduled 2022-02-08 Screening for [facility] Test 18:08:57 malignant neoplasm of cervix (procedure) [code = 141766680] Future Scheduled 2022-02-08 BREAST CANCER [facility] Test 18:08:57 SCREENING [code = BREAST CANCER SCREENING] Future Scheduled 2022-02-08 COLONOSCOPY SCREENING [facility] Test 18:08:57 [code = COLONOSCOPY SCREENING] Future Scheduled 2022-02-08 COVID-19 VACCINE (2 - [facility] Test 18:08:57 Moderna 3-dose series) [code = COVID-19 VACCINE (2 - Moderna 3-dose series)] Future Scheduled 2022-02-08 INFLUENZA VACCINE [facility] Test 18:08:57 [code = INFLUENZA VACCINE] Encounters Start End Encounter Admission Attending Care Care Encounter Source Date/Time Date/Time Type Type Clinicians Facility Department ID 2021-09-08 Emergency [facility] [id number] Univers 21:01:20 ity of [facility] 2021-08-26 Outpatient [facility] [id number] [place] 10:37:07 [facility] 2021-08-09 Outpatient LINDA, [facility] [id number] [place] 11:36:26 [facility] 2022-04-02 2022-04-02 [facility] [id number] Univers 00:00:00 00:00:00 Manuel JETT 350.1.13.10 [facility] 4.2.7.2.686 [facility] [phone] [address] [facility] 2022-02-03 2022-02-03 Emergency E AZNAUROVA-A BL BL 7504 BL 10:10:00 20:37:00 JOSEPH RUTHERFORD 2022-01-30 2022-01-30 Outpatient Cary ZABALA [facility] [id number] 8P-20 Univers 14:30:00 14:30:00 EMILY [id number] [facility] 2022-01-30 2022-01-30 [facility] [id number] Univers 14:30:00 14:30:00 EMILY [facility] 2022-01-01 2022-01-01 Orders Bill [facility] [id number] Memoria 00:00:00 00:00:00 Only cary Preston 2022-01-01 2022-01-01 Orders Doctor FARFAN 1.2.840.114 [id number] Univers 00:00:00 00:00:00 Only CASSIE Matthews 350.1.13.[address] [facility] 4.2.7.2.686 Reinaldo as [phone] [address] 2021-12-31 2021-12-31 Outpatient R SAGRARIO, [facility] [id number] 8P-20 Univers 14:30:00 14:30:00 EMILY [id number] ity [facility] 2021-12-31 2021-12-31 [facility] [id number] Univers 14:30:00 14:30:00 [facility] 2021-11-04 2021-11-04 Laboratory Only, Ang Db Test [facility] 1.2.8 40.114 [id number] Univers 16:15:00 16:30:00 Only Kyle, Sandip [facility] 350.1.13.10 ity of [place] 4.2.7.2.686 Reinaldo as BABS?BLEA [phone] Ne dical EY 370 [facility] OFFICE [facility] 2021-11-04 2021-11-04 Outpatient R [facility] [id number] Univers 16:15:00 16:15:00 [id number] ity [facility] 2021-11-04 2021-11-04 [facility] [id number] Univers 16:15:00 16:15:00 SANDIP atiliodenis o f [facility] 2021-09-17 2021-09-17 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 Bill [facility] [id number] Memoria 23:25:33 23:40:33 Visit r Romeo yuen [facility] 2021-09-17 2021-09-17 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 Ashley Nieves Lab Main [facility] 1.2.8 40.114 [id number] Univers 17:25:33 17:40:33 Visit Beau Romero 350.1.13.1 0 ity [facility] 4.2.7.2.686 [place] [phone] Ne dical SHANEKA 353 [facility] 2021-09-17 2021-09-17 Outpatient R [facility] [id number] -[id number] Univers 16:00:00 16:00:00 [id number] ity [facility] 2021-09-17 2021-09-17 Outpatient R NICK [facility] [id number] Univers 16:00:00 16:00:00 BEAU [facility] 2021-09-17 2021-09-17 Orders nullFlavo [facility] [id number] Memoria 00:00:00 00:00:00 Only r alpa Preston 2021-09-17 2021-09-17 Orders Doctor FARFAN 1.2.840.114 [id number] Univers 00:00:00 00:00:00 Only Unassigned, CASSIE 350.1.13.10 [facility] 4.2.7.2.686 Reinaldo as [phone] [address] 2021-08-29 2021-08-29 Outpatient Cary ZABALA [facility] [id number] 8P-20 Univers 13:00:00 13:00:00 EMILY [id number] [facility] 2021-08-29 2021-08-29 Outpatient Cary ZABALA [facility] [id number] Univers 13:00:00 13:00:00 EMILY [facility] 2021-08-26 2021-08-26 Office VERITO MCKEON 6400 1.2.161.115 [id number] [place] 10:03:44 10:18:44 Visit GERALD ROSS 350.1.13.58 Health 9.2.7.2.686 [id number] 3 2021-08-16 2021-08-16 Travel 1.2.840.1 1.2.669.648 0266 087299 Methodi 00:00:00 00:00:[address] 3.430.2.7 0.2.7.3.698 Ho spita .3.014450 084.8 l .8 2021-08-16 2021-08-16 Travel 1.2.840.1 1.2.894.983 7154 471364 Methodi 00:00:00 00:00:[address] 3.430.2.7 0.2.7.3.698 Ho spita .3.973930 084.8 l .8 2021-08-13 2021-08-13 Travel 1.2.840.1 1.2.059.137 0560 974236 Methodi 00:00:00 00:00:[address] 3.430.2.7 0.2.7.3.698 Ho spita .3.565386 084.8 l .8 2021-08-13 2021-08-13 Travel 1.2.840.1 1.2.793.175 0305 819395 Methodi 00:00:00 00:00:[address] 3.430.2.7 0.2.7.3.698 Ho spita .3.093596 084.8 l .8 2021-08-12 2021-08-12 Office Gabriels, 1.2.840.1 [id number] 830701 3885 Methodi 09:00:00 10:09:31 Visit Tae Campbell 44265.1.[address] 3.430.2.7 Hospit a .3.305449 l .8 2021-08-12 2021-08-12 Office Gabriels, 1.2.840.1 [id number] 537073 0417 Methodi 09:00:00 10:09:31 Visit Tae Campbell 10065.1.[address] 3.430.2.7 Hospit a .3.290164 l .8 2021-08-07 2021-08-07 Telephone [place], 1.2.840.1 [id number] 2099 699868 Methodi 00:00:00 00:00:[address] Julius 3.430.2.7 Hospi ta .3.801736 l .8 2021-08-07 2021-08-07 Travel 1.2.840.1 1.2.391.135 2386 476916 Methodi 00:00:00 00:00:[address] 3.430.2.7 0.2.7.3.698 Ho spita .3.594675 084.8 l .8 2021-08-07 2021-08-07 Telephone Boothe, 1.2.840.1 [id number] 2100 [address]2862 Methodi 00:00:00 00:00:[address] Julius 3.430.2.7 Hospi ta .3.433692 l .8 2021-08-07 2021-08-07 Travel 1.2.840.1 1.2.385.084 8366 996722 Methodi 00:00:00 00:00:[address] 3.430.2.7 0.2.7.3.698 Ho spita .3.584677 084.8 l .8 2021-08-06 2021-08-06 [facility] 1.2.840.1 [id number] 2100 724177 Methodi 00:00:00 00:00:[address] Tae Campbell [address]69.1.[address] 3.430.2.7 Hospit a .3.965466 l .8 2021-08-06 2021-08-06 [facility], 1.2.840.1 [id number] 2100 699172 Methodi 00:00:00 00:00:00 Tae Campbell 66675.1.[address] 3.430.2.7 Hospit a .3.692603 l .8 2021-08-02 2021-08-02 [facility], 1.2.840.1 [id number] 21001 54697 Methodi 13:00:00 23:59:00 Encounter Tae T 31763.1.1 248 s t 3.430.2.7 Hospit a .3.212410 l .8 2021-08-02 2021-08-02 [facility], 1.2.840.1 [id number] 21001 56565 Methodi 13:00:00 23:59:00 Encounter Tae T 50377.1.1 248 s t 3.430.2.7 Hospit a .3.886877 l .8 2021-08-02 2021-08-02 [facility], 1.2.840.1 [id number] 428712 2524 Methodi 16:35:00 16:40:00 Tae Campbell [address]2588.1.[address] 3.430.2.7 Hospit a .3.399636 l .8 2021-08-02 2021-08-02 [facility], 1.2.840.1 [id number] 293964 8532 Methodi 16:35:00 16:40:00 Tae Campbell [address]341.1.[address] 3.430.2.7 Hospit a .3.780475 l .8 2021-08-02 2021-08-02 [facility], 1.2.840.1 [id number] 79311 Methodi 12:00:00 12:59:00 Encounter Tae Campbell 57484.1.1 245 s t 3.430.2.7 Hospit a .3.395847 l .8 2021-08-02 2021-08-02 [facility], 1.2.840.1 [id number] 82161 Methodi 12:00:00 12:59:00 Encounter Tae Campbell 91767.1.1 245 s t 3.430.2.7 Hospit a .3.673676 l .8 2021-08-02 2021-08-02 [facility], 1.2.840.1 [id number] 60416 Methodi 11:00:00 11:59:00 Encounter Tae Campbell 50575.1.1 247 s t 3.430.2.7 Hospit a .3.330019 l .8 2021-08-02 2021-08-02 [facility], 1.2.840.1 [id number] 37996 Methodi 11:00:00 11:59:00 Encounter Tae Campbell 62801.1.1 247 s t 3.430.2.7 Hospit a .3.184445 l .8 2021-08-02 2021-08-02 [facility], 1.2.840.1 [id number] 03644 Methodi 10:07:40 10:59:00 Encounter Tae Campbell 10160.1.1 246 s t 3.430.2.7 Hospit a .3.163491 l .8 2021-08-02 2021-08-02 [facility] 1.2.840.1 [id number] 26861 34025 Methodi 10:07:40 10:59:00 Encounter Tae Campbell 16181.1.1 246 s t 3.430.2.7 Hospit a .3.573088 l .8 2021-08-02 2021-08-02 Travel 1.2.840.1 1.2.341.501 7020 188929 Methodi 00:00:00 00:00:[address] 3.430.2.7 0.2.7.3.698 Ho spita .3.854355 084.8 l .8 2021-08-02 2021-08-02 Travel 1.2.840.1 1.2.026.003 3582 962557 Methodi 00:00:00 00:00:[address] 3.430.2.7 0.2.7.3.698 Ho spita .3.640817 084.8 l .8 2021-07-31 2021-07-31 EXT [facility] Gwendolyn, EXT MSRDP 1.2.840.114 1 [id number] [place] 00:00:00 00:00:00 Isabel LOCATION 350.1.13.58 Health 9.2.7.2.686 [id number] 0 2021-07-31 2021-07-[address] [facility] OP Gwendolyn, EXT MSRDP 1.2.840.114 1 [id number] [place] 00:00:00 00:00:00 Isabel LOCATION 350.1.13.58 Health 9.2.7.2.686 [id number] 0 2021-07-29 2021-07-29 Travel 1.2.840.1 1.2.141.005 3918 701547 Methodi 00:00:00 00:00:[address] 3.430.2.7 0.2.7.3.698 Ho spita .3.683982 084.8 l .8 2021-07-29 2021-07-29 Travel 1.2.840.1 1.2.055.005 9879 440413 Methodi 00:00:00 00:00:[address] 3.430.2.7 0.2.7.3.698 Ho spita .3.086869 084.8 l .8 2021-07-10 2021-07-10 Travel 1.2.840.1 1.2.758.157 6470 511528 Methodi 00:00:00 00:00:[address] 3.430.2.7 0.2.7.3.698 Ho spita .3.091270 084.8 l .8 2021-07-03 2021-07-03 [facility], 1.2.840.1 [id number] 062172 6739 Methodi 13:45:00 16:40:55 Visit Tae Campbell 25407.1.[address] 3.430.2.7 Hospit a .3.391958 l .8 2021-07-03 2021-07-03 Travel 1.2.840.1 1.2.125.614 5335 790994 Methodi 00:00:00 00:00:[address] 3.430.2.7 0.2.7.3.698 Ho spita .3.969630 084.8 l .8 2021-07-01 2021-07-01 Travel 1.2.840.1 1.2.288.535 9813 870291 Methodi 00:00:00 00:00:[address] 3.430.2.7 0.2.7.3.698 Ho spita .3.102138 084.8 l .8 2021-05-31 2021-05-31 Office nullFlavo [facility] Health 8588 0675 Memoria 21:24:31 21:59:54 Visit cary Preston 2021-05-31 2021-05-31 Office Eduardo [facility] 1.2.840.114 [id number] Univers 16:24:31 16:59:54 Visit Goyo Trinh 350.1.13.10 ity of [place] 4.2.7.2.686 [place] [id number] Ne [address] 2021-05-31 2021-05-31 Outpatient GOYO CLARK [facility] [id number] Univers 16:20:00 16:20:00 GOYO CLARK [id number] [facility] 2021-05-31 2021-05-31 Outpatient GOYO RODRIGUEZ [facility] [id number] Univers 16:20:00 16:20:00 GOYO CLARK [facility] 2021-05-27 2021-05-27 Outpatient Cary SIMMONS [facility] [id number] 48P-20 Univers 10:30:00 10:30:00 [facility] [id number] [facility] 2021-05-27 2021-05-27 Outpatient Cary SIMMONS [facility] [id number] Univers 10:30:00 10:30:00 [facility] 2021-04-30 2021-04-30 Orders nullFlavo [facility] [id number] Memoria 00:00:00 00:00:00 Only cary Preston 2021-04-30 2021-04-30 Orders Doctor FARFAN 1.2.840.114 [id number] Univers 00:00:00 00:00:00 Only Unassigned, CASSIE 350.1.13.[address] [facility] 4.2.7.2.686 Reinaldo as [phone] [address] 2021-04-04 2021-04-04 Transition nullFlavo [facility] [id number] 724 Memoria 00:00:00 00:00:00 of Care r Gomez Lazaro Preston [facility] 2021-04-04 2021-04-04 Transition Rylie Clay 1.2.840.114 [id number] Univers 00:00:00 00:00:00 of Care Chelsey Mckeon 350.1.13.10 [place]2.[place] [phone] [facility] 403 Branch 2021-04-02 2021-04-03 [facility] [id number] Memoria 00:39:00 21:59:00 Encounter r alpa Preston (JEN 10B) 2021-04-01 2021-04-03 [facility] Haider Stevenvince Loaiza 1.2.840.1 14 [id number] Univers 19:39:00 16:59:00 Encounter Petra Manuel Xiong 350.1. 13.10 ity [facility] 4.2.7.2.686 [place] [id number] [facility] 094 Branch 2021-04-01 2021-04-01 Nurse nullFlavo ACCESS [id number] Memoria 00:00:00 00:00:00 Triage r MICHELLE Preston 2021-04-01 2021-04-01 Nurse ADOLPH Rutherford 1.2.140.402 9520 6653 Univers 00:00:00 00:00:00 Triage Christian XIONG 350.1.13.10 it y of [facility] 4.2.7.2.686 Reinaldo as [id number] [facility] 019 Branch 2021-03-19 2021-03-19 Outpatient R [facility] [id number] -[id number] Univers 13:00:00 13:00:00 [id number] ity [facility] 2021-03-19 2021-03-19 Outpatient R GOYO CLARK [facility] [id number] Univers 13:00:00 13:00:00 [facility] 2021-03-04 2021-03-04 Office nullFlavo [facility] [id number] Memoria 19:56:39 21:12:00 Visit r RoselineA alpa Preston 2021-03-04 2021-03-04 Office Eduardo [facility] 1.2.840.114 [id number] Univers 14:56:39 16:12:00 Visit Goyo Trinh 350.1.13.10 ity [facility] 4.2.7.2.[place] Profess[place] [phone] Ne dical nal 092 [facility] 2021-03-04 2021-03-04 Outpatient GOYO RODRIGUEZ [facility] [id number] Univers 15:00:00 15:00:00 GOYO CLARK [id number] [facility] 2021-03-04 2021-03-04 Outpatient Cary EDUARDO, GOYO [facility] [id number] Univers 15:00:00 15:00:00 GOYO CLARK [facility] 2021-03-04 2021-03-04 Orders [facility] [id number] Memoria 00:00:00 00:00:00 Only cary Preston 2021-03-04 2021-03-04 Orders Doctor FARFAN 1.2.840.114 [id number] Univers 00:00:00 00:00:00 Only UnassignedCASSIE 350.1.13.10 [facility] 4.2.7.2.686 Reinaldo as [phone] [address] 2021-02-20 2021-02-20 [facility] [id number] Memoria 00:00:00 00:00:00 Only cary Preston 2021-02-20 2021-02-20 Orders Doctor FARFAN 1.2.840.114 [id number] Univers 00:00:00 00:00:00 Only UnassignedCASSIE 350.1.13.10 it[facility] 4.2.7.2.686 Reinaldo as [phone] [address] 2021-01-23 2021-01-23 Outpatient MIN [facility] [id number] Univers 14:00:00 14:00:00 BALJIT [facility] 2021-01-19 2021-01-19 Patient nullFlavo [facility] [id number] Memoria 00:00:00 00:00:00 Outreach r Internal l Marisol - Donna Werner 2021-01-19 2021-01-19 [facility] 1.2.840.114 [id number] 00:00:00 00:00:00 Outreach Baljit PRIMARY 350.1.13.10 [place] [facility] 4.2.7.2.686 PAVILLION [id number] 388 2021-01-19 2021-01-19 [facility] 1.2.840.114 [id number] Univers 00:00:00 00:00:00 Outreach Baljit PRIMARY 350.1.13.10 i ty of [place] [facility] 4.2.7.2.686 [place] PAVILLION [id number] Ne dical [address] [place] [address] 2020-09-28 2020-09-28 Outpatient U DANIELA, [facility] 032 4 [facility] 15:16:00 19:15:00 KRAIG 2020-09-26 2020-09-27 Emergency E LASHAWN BOLES BL MHBL 7503 BL 18:28:00 01:35:00 2020-09-25 2020-09-25 Laboratory nullFlavo [facility] Health 7 [id number] Memoria 00:30:16 00:50:16 Only r Family Medicine - [facility] 2020-09-24 2020-09-24 Laboratory Lab, [facility] 1.2.840.114 [id number] 18:30:16 18:50:16 Only Fam Pob I Health 350.1.13.10 [place] 4.2.7.2.686 Professio [phone] nal [facility] Office Building [facility] 2020-09-24 2020-09-24 Laboratory Lab, [facility] Fam Pob I [facility] 1.2. 840.114 [id number] Univers 18:30:16 18:50:16 Only [place]ms[place]eli, [facility] 350.1.13.10 ity of [place] 4.2.7.2.686 [place] Professio [phone] Ne dical [facility] 044 [place] Office Building One 2020-09-24 2020-09-24 Outpatient R [facility] [id number] -[id number] Univers 18:40:00 18:40:00 [id number] ity of [facility] 2020-09-24 2020-09-24 Out[facility] [id number] [facility] 18:40:00 18:40:00 OMAYEMI ity of [facility] 2020-09-19 2020-09-19 Orders nullFlavo [facility] [id number] Memoria 00:00:00 00:00:00 Only r alpa Preston 2020-09-19 2020-09-19 Orders Doctor FARFAN 1.2.840.114 [id number] 00:00:00 00:00:00 Only Unassigned, CASSIE 350.1.13.10 [place] [facility] 4.2.7.2.686 [id number] 009 2020-09-19 2020-09-19 Orders Doctor ADOLPH 1.2.840.114 [id number] Univers 00:00:00 00:00:00 Only Unassigned, CASSIE 350.1.13.[address] [facility] 4.2.7.2.686 Reinaldo as [id number] [address] 2020-09-05 2020-09-05 Case nullFlavo [facility] [id number] Memoria 00:00:00 00:00:00 Management r [facility] 2020-09-05 2020-09-05 Case [facility] 1.2.730.702 [id number] 00:00:00 00:00:00 Management Annika Trinh 350.1.13.10 [place] 4.2.7.2.686 Professio [phone] [address] 2020-09-05 2020-09-05 Case Jaime, [facility] 1.2.302.596 [id number] 6007 Univers 00:00:00 00:00:00 Management Annika Trinh 350.1.13.10 [place] [phone] Ne dical [address] 2020-08-30 2020-08-30 Office nullFlavo [facility] [id number] Memoria 19:45:50 20:47:54 Visit r [facility] 2020-08-30 2020-08-30 Office [facility] 1.2.465.956 [id number] 6935 Univers 14:45:50 15:47:54 Visit Annika Ziggy 350.1.13.10 i [place] 4.[place].7.2.[place] [phone] Ne dical [address] 2020-08-30 2020-08-30 Outpatient R JAIME [facility] [id number] Univers 14:30:00 14:30:00 ANNIKA [id number] y [facility] 2020-08-30 2020-08-30 Outpatient Cary SANDOVAL [facility] [id number] Univers 14:30:00 14:30:00 ANNIKA [facility] 2020-08-30 2020-08-30 Orders nullFlavo [facility] [id number] Memoria 00:00:00 00:00:00 Only cary Preston 2020-08-30 2020-08-30 Orders Doctor FARFAN [id number] Univers 00:00:00 00:00:00 Only Unassigned, CASSIE [id number] [facility] 4.2.7.2.686 Reinaldo as [phone] [facility] [address] 2020-04-24 2020-04-25 Emergency E AZNAUROVA-A MHBL MHBL [id number] MHBL 21:30:00 03:03:00 JOSEHUSSAINJOSEPH 2020-03-19 2020-03-22 Inpatient U LUIS, [facility] 04:07:00 15:45:00 KELLI 2020-03-19 2020-03-19 Emergency E DIANA MHBL MHBL [id number] MHBL 00:18:00 03:25:00 , MICHELINE 2020-03-18 2020-03-18 Nurse nullFlavo ACCESS [id number] Memoria 00:00:00 00:00:00 Triage r MICHELLE Preston 2020-03-18 2020-03-18 Nurse Isabell Diaz [id number] Univers 00:00:00 00:00:00 Triage CASSIE [id number] it y of [facility] 4.2.7.2.686 Reinaldo as [phone] [facility] [address] 2019-08-03 2019-08-03 [id number] 10:08:00 10:08:00 2019-05-22 2019-05-[address] [id number] Memoria 23:21:00 11:04:00 [facility] 2019-04-05 2019-04-[address] [id number] [facility] 21:20:00 13:53:00 Inpatient [facility] 2019-03-31 2019-03-[address] [id number] [facility] 18:35:00 23:11:00 Emergency [facility] 2019-03-03 2019-03-[address] [id number] Memoria 17:02:00 17:02:00 Referred [facility] Results Test Description Test Time Test Comments Results Result Comments Source AFB culture 2021-09-14 05:13:54 Test Item Value Reference Range Interpretation Comme nts AFB culture isolate No growth after 6 weeks of Specimen InformationSpecimen (test code = 543-9) incubation. Source: Joint FluidSpecimen Site: PLEASE HOLD FOR 21 DAYS [facility] [id number] 05:13:54 Test Item Value Reference Range Interpretation Comments AFB culture No growth Specimen isolate (test after 6 weeks InformationSp ecimen code = 543-9) of Source: Joint incubation. FluidSpecimen S ite: [facility] [id number] 05:15:49 Test Item Value Reference Range Interpretation Comments Fungus culture No growth Specimen isolate (test after 4 weeks InformationSp ecimen code = 1441) of Source: Joint incubation. FluidSpecimen S ite: PLEASE HOLD FOR 21 DAY S [facility] Stephenvillengus [id number] 05:15:49 Test Item Value Reference Range Interpretation Comments Fungus culture No growth Specimen isolate (test after 4 weeks InformationSp ecimen code = 1441) of Source: Joint incubation. FluidSpecimen S ite: PLEASE HOLD FOR 21 DAY S [facility] fluid [id number] 03:24:41 Test Item Value Reference Range Interpretation Comments Joint fluid No growth Specimen culture isolate after 4 days. Information Specimen (test code = Source: [facility] 1634) FluidSpecimen S ite: PLEASE HOLD FOR 21 DAY S [facility] [id number] 03:24:41 Test Item Value Reference Range Interpretation Comments Joint fluid No growth Specimen culture isolate after 4 days. Information Specimen (test code = Source: [facility] 1634) FluidSpecimen S ite: PLEASE HOLD FOR [address] [facility] [id number] 14:08:12 Test Item Value Reference Range Interpretation Comments Anaerobic No anaerobic Specimen culture isolate organisms InformationS pecimen (test code = isolated. Source: [facility] 552) FluidSpecimen S ite: PLEASE HOLD FOR [address] [facility] [id number] 14:08:12 Test Item Value Reference Range Interpretation Comments Anaerobic No anaerobic Specimen culture isolate organisms InformationS pecimen (test code = isolated. Source: [facility] 552) FluidSpecimen S ite: PLEASE HOLD FOR 21 DAYS [facility] [id number] 18:30:51 Test Item Value Reference Range Interpretation Comments Fungus smear No fungi Specimen (test code = observed. InformationSpec im Source: 1443) [facility] Site: PLEASE HOLD FOR 21 DAYS [facility] [id number] 18:30:51 Test Item Value Reference Range Interpretation Comments Fungus smear No fungi Specimen (test code = observed. InformationSpec im Source: 1443) [facility] Site: PLEASE HOLD FOR 21 DAYS [facility] [id number] 16:04:26 Test Item Value Reference Range Interpretation Comments AFB stain No acid fast Specimen (test code = bacilli (AFB) InformationSpe cimen 676-7) seen. [facility] [id number] 16:04:26 Test Item Value Reference Range Interpretation Comments AFB stain No acid fast Specimen (test code = bacilli (AFB) InformationSpe cimen 676-7) seen. [facility] FOR [facility] S [facility] riihm4928-20-25 03:53:00Gram stain isolateRare WBC'sNo organisms seen 08/02/2021 10:53 PM [facility] HospitalGram [id number] 03:53:00Gram stain isolateRare WBC'sNo organisms seen 08/02/2021 10:53 PM [facility] HospitalCell count and differential, body [id number] 02:59:47 Test Item Value Reference Range Interpretation Comments Misc fluid type (test JOINT FLUID code = 81616-9) Color, fluid (test Red code = 6824-7) Appearance, fluid Clear (test code = 9335-1) RBC, fluid (test code See_Comment DISREG AMPARO PREVIOUS = 03669-6) RESULTS, WERE AUTOMATED (QUESTIONABLE); THEREFORE A MAN UAL COUNT WAS PERFORMED,AND M ANUAL COUNT CORRELATE D. Corrected resul t; previously repo rted as [phone] on 08/02/2021 at 1 7:19 by [id number] REPORT, Previou sly reported as: DC EVIOUS RESULTS WERE AUTOMATED (QUESTIONABLE), THEREFORE A MAN UAL COUNT WAS PERFORMED,AND M ANUAL COUNT CORRELATE D. (Reported 08/02 21:51) [Automat ed message] The sy stem which generated this result transmit theodore reference range : /CMM. The refer ence range was not u sed to interpret this result as normal/abnor mal. Nucleated cells, See_Comment Corrected r esult; fluid (test code = previousl y reported 56478-2) as 1500 on 07/11 at 17:19 by PEC 3 [Automated mess age] The system [employer] generated this result transmitted ref erence range: /CMM. Th e reference range was not used to int erpret this result as normal/abnormal . Fluid mononuclear 2/CMM cell (test code = 1407) SHEILA (test code = SHEILA) right knee [facility] and differential, body [id number] 02:59:47 Test Item Value Reference Range Interpretation Comments Misc fluid type (test JOINT FLUID code = 66716-7) Color, fluid (test Red code = 6824-7) Appearance, fluid Clear (test code = 9335-1) RBC, fluid (test code See_Comment DISREG AMPARO PREVIOUS = 67652-0) RESULTS, WERE AUTOMATED (QUESTIONABLE); THEREFORE A MAN UAL COUNT WAS PERFORMED,AND M ANUAL COUNT CORRELATE D. Corrected resul t; previously repo rted as [phone] on 08/02/2021 at 1 7:19 by [id number] REPORT, Previou sly reported as: DC EVIOUS RESULTS WERE AUTOMATED (QUESTIONABLE), THEREFORE A MAN UAL COUNT WAS PERFORMED,AND M ANUAL COUNT CORRELATE D. (Reported 08/02 21:51) [Automat ed message] The sy stem which generated this result transmit theodore reference range : /CMM. The refer ence range was not u sed to interpret this result as normal/abnor mal. Nucleated cells, See_Comment Corrected r esult; fluid (test code = previousl y reported 64162-6) as 1500 on 07/11 at 17:19 by PEC 3 [Automated mess age] The system [employer] generated this result transmitted ref erence range: /CMM. Th e reference range was not used to int erpret this result as normal/abnormal . Fluid mononuclear 2/CMM cell (test code = 1407) SHEILA (test code = SHEILA) right [facility] [id number] 12:12:15 Test Item Value Reference Range Interpretation Comments URINE CULTURE (test < 10,000 CFU/mL mixed code = 630-4) aerobic organisms - suggests endogenous microbial contamination [facility] METABOLIC PANEL (NA, K, CL, CO2, GLUCOSE, BUN, CREATININE, CA)2021-04-03 11:03:41 Test Item Value Reference Range Interpretation Comments NA (test code = NA) 136 135-145 [facility] (NA, K, CL, CO2, GLUCOSE, BUN, CREATININE, CA)2021-04-03 11:03:41 Test Item Value Reference Range Interpretation Comments K (test code = K) 4.5 3.5-5.0 [facility] (NA, K, CL, CO2, GLUCOSE, BUN, CREATININE, CA)2021-04-03 11:03:41 Test Item Value Reference Range Interpretation Comments CL (test code = CL) 94 98-108 [facility] MET[facility]OLIC [facility] (NA, K, CL, CO2, GLUCOSE, BUN, CREATININE, CA)2021-04-03 11:03:41 Test Item Value Reference Range Interpretation Comments CO2 TOTAL (test code = CO2 TOTAL) 38 23-31 [facility] (NA, K, CL, CO2, GLUCOSE, BUN, CREATININE, CA)2021-04-03 11:03:41 Test Item Value Reference Range Interpretation Comments AGAP (test code = AGAP) 4 2-16 [facility] (NA, K, CL, CO2, GLUCOSE, BUN, CREATININE, CA)2021-04-03 11:03:41 Test Item Value Reference Range Interpretation Comments BUN (test code = BUN) 28 7-23 [facility] (NA, K, CL, CO2, GLUCOSE, BUN, CREATININE, CA)2021-04-03 11:03:41 Test Item Value Reference Range Interpretation Comments GLUCOSE (test code = GLUCOSE) 119 70-110 [facility] (NA, K, CL, CO2, GLUCOSE, BUN, CREATININE, CA)2021-04-03 11:03:41 Test Item Value Reference Range Interpretation Comments CREATININE (test code = CREATININE) 0.73 0.50-1.04 [facility] (NA, K, CL, CO2, GLUCOSE, BUN, CREATININE, CA)2021-04-03 11:03:41 Test Item Value Reference Range Interpretation Comments CALCIUM (test code = CALCIUM) 8.8 8.6-10.6 [facility] (NA, K, CL, CO2, GLUCOSE, BUN, CREATININE, CA)2021-04-03 11:03:41 Test Item Value Reference Range Interpretation Comments eGFR (test code = eGFR) 82.5 [facility] (NA, K, CL, CO2, GLUCOSE, BUN, CREATININE, CA)2021-04-03 11:03:41 Test Item Value Reference Range Interpretation Comments NA (test code = 136 mmol/L 135-145 3283011167) K (test code = 4.5 mmol/L 3.5-5.0 Slight 5450875755) hemolysis CL (test code = 94 mmol/L 98-108 L 3761050687) CO2 TOTAL (test code 38 mmol/L 23-31 H = 7248756725) AGAP (test code = 2-16 7847622222) BUN (test code = 28 mg/dL 7-23 H Slight 5135999234) hemolysis GLUCOSE (test code = 119 mg/dL 70-110 H 5207218769) CREATININE (test code 0.73 mg/dL 0.50-1.04 = 3197423987) CALCIUM (test code = 8.8 mg/dL 8.6-10.6 8637669093) eGFR (test code = mL/min/1.73m2 1650999409) SHEILA (test code = SHEILA) Association of [...] tests). Lab Interpretation Abnormal (test code = 13713-9) [facility] ([facility]) - Duration of test: 20-60 mins; Release to patient: [id number] 00:00:00Date and Time of Procedure: 04/03/2021, 08:40 [...] abnormalities are seen. IMPRESSION: This EEG is normal.An EMU (epilepsy monitoring unit) referral or long-term [...] written. Gibran Dickens MD Date of interpretation: 04/03/2021[facility] [id number] 20:24:03 Test Item Value Reference Range Interpretation Comments NT-proBNP (test code 218 pg/mL See_Comment H [Autom ated = 4209083435) message] The system which generated this result transmitted reference range : <=125. The reference range was not used to interpret this result as normal/abnormal . SHEILA (test code = SHEILA) Biotin has been reported to cause a negative bias, interpret results relative to patient's use of biotin. Lab Interpretation Abnormal (test code = 33706-6) [facility] 1 [id number] 13:04:48 No acute cardiopulmonary abnormality. Preliminary Report Dictated by Resident: Chente Gonzales MD., have reviewed this study and agree with theabove report.EXAM: XR CHEST 1 VW COMPARISON: 10/18/2015 radiograph HISTORY: hypoxia FINDINGS: Lines/Tubes: None. Lungs: The lungs are clear. No pleural effusion or pneumothorax isidentified. Heart/Mediastinum: The cardiomediastinal silhouette is normal in size witha globular shape. A stent is seen in the descending thoracic aorta. Bones: No acute osseous abnormality is seen. Changes of prior total rightshoulder arthroplasty. Cholecystectomy clips are present. [facility], Radiant Results Inft User - 04/02/2021 8:05 AM CDTFormatting of thisnote might be different from the original.EXAM: XR CHEST 1 VWCOMPARISON: 10/18/2015 radiographHISTORY: hypoxia FINDINGS:Lines/Tubes: None.Lungs: The lungs are clear. No pleural effusion or pneumothoraxisidentified.Heart/Mediastinum: The cardiomediastinal silhouette is normal in size witha globular shape. A stent is seen in the descending thoracic aorta.Bones: No acute osseous abnormality is seen. Changes of prior total rightshoulder arthroplasty. Cholecystectomy clips are present.IMPRESSIONNo acutecardiopulmonary abnormality.Preliminary Report Dictated by Resident: Chente Heart MD., have reviewed this study and agree with theabove report.[facility] CenterAC PANEL 20 + LACTIC [id number] 03:36:51 Test Item Value Reference Range Interpretation Comments PH (test code = 2) 7.35-7.45 L PCO2 (test code = See_Comment H [Automate d 8048582045) message] The sy stem which generated this result transmitted reference range : 35 - 45 mmHg. The reference range was not used to interpret this result as normal/abnormal . PO2 (test code = See_Comment L [Automated 2710662337) message] The sy stem which generated this result transmitted reference range : 80 - 100 mmHg. The reference range was not used to interpret this result as normal/abnormal . HCO3 (test code = See_Comment H [Automate d 1816153441) message] The sy stem which generated this result transmitted reference range : 22 - 26 mEq/L. The reference range was not used to interpret this result as normal/abnormal . BE (test code = See_Comment [Automated 3106068080) message] The sy stem which generated this result transmitted reference range : -3.0 - 3.0 mEq/ L. The reference r kendell was not used to interpret this result as normal/abnormal . THB (test code = 14.2 g/dL 12.0-16.0 8283641977) %O2HB (test code = 89.4 % 94.0-99.0 L 7343777983) %COHB ART (test code = 4.8 % 0.0-1.5 H 8587571454) %METHB ART (test code = 0.3 % 0.4-1.5 L 9447978235) VOL%O2 ART (test code = 17.9 % 15.0-23.0 7146733650) NA (test code = 135 mmol/L 135-145 8704614358) K+ (test code = 4.3 mmol/L 3.5-5.0 4941308996) AC CA IONZ (test code = 4.60 mg/dL 4.50-5.30 7838940986) GLUCOSE (test code = 95 mg/dL 70-110 9076704294) LACTIC ACID (test code 0.78 mmol/L 0.50-2.20 = 0633190817) Lab Interpretation Abnormal (test code = 57226-2) [facility] CenterETHANOL2021-05-25 03:05:08 Test Item Value Reference Range Interpretation Comments ALCOHOL (test code = <10 mg/dL 6559310707) SHEILA (test code = SHEILA) <10 Qfqkerup91-780 Toxic>100 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 Lab Interpretation Normal (test code = 46916-5) [facility] CenterUR[facility]UG (IMMUNOASSAY) - COMPREHENSIVE DRUG [id number] 02:32:35 Test Item Value Reference Range Interpretation Comments AMPHET (test code = Negative Negative 2998875587) GENNARO U (test code = Negative Negative 0934323164) BENZO U (test code = Negative Negative 9597725327) Cocaine Metabolite (test Negative Negative code = 7395255146) METHADONE (test code = Negative Negative 5128962906) OPIATES (test code = Presumptive Positive Negative A 6310506736) PCP (test code = Presumptive Positive Negative A 7144459875) THC (test code = Negative Negative 5931515626) SHEILA (test code = SHEILA) Urine Drug [...] testing). Lab Interpretation (test Abnormal code = 30471-8) [facility] CenterCOVID-[facility] (ID NOW RAPID TESTING)2021-04-02 02:30:32 Test Item Value Reference Range Interpretation Comments SARS-CoV-2 Rapid ID NOW Not Detected Not Detected (test code = 74152-6) SHEILA (test code = SHEILA) ID NOW COVID-19 Assay is an isothermal nucleic acid amplification test intended for the qualitative detection of nucleic acid from SARS-CoV-2 viral RNA in nasopharyngeal (COMPENSATION ADVISOR) specimens. It is used under Emergency Use [...] indicated. Lab Interpretation Normal (test code = 24114-8) [facility] Metabolic Panel (NA, K, CL, CO2, GLUCOSE, BUN, CREATININE, CA)2021-04-02 02:24:48 Test Item Value Reference Range Interpretation Comments NA (test code = 136 mmol/L 135-145 9460860300) K (test code = 4.9 mmol/L 3.5-5.0 0880294198) CL (test code = 96 mmol/L 98-108 L 1253852785) CO2 TOTAL (test code = 31 mmol/L 23-31 1918000521) AGAP (test code = 2-16 7134262701) BUN (test code = 43 mg/dL 7-23 H 0913111066) GLUCOSE (test code = 96 mg/dL 70-110 0010392560) CREATININE (test code = 0.92 mg/dL 0.50-1.04 7369829953) CALCIUM (test code = 9.4 mg/dL 8.6-10.6 5896888367) eGFR (test code = mL/min/1.73m2 8896546898) SHEILA (test code = SHEILA) Association of [...] tests). Lab Interpretation Abnormal (test code = 00981-2) [facility] CenterHepatic Function Panel (ALB, T.PRO, BILI T, BU/BC, ALT, AST, ALK PHOS)2021-04-02 02:24:48 Test Item Value Reference Range Interpretation Comments TOTAL BILI (test code = 9746066867) 0.7 mg/dL 0.1-1.1 BILI UNCON (test code = 4916530121) 0.4 mg/dL 0.1-1.1 BILI CONJ (test code = 1350795102) 0.0 mg/dL 0.0-0.3 T PROTEIN (test code = 4426740241) 6.8 g/dL 6.3-8.2 ALBUMIN (test code = 6394788660) 4.4 g/dL 3.5-5.0 ALK PHOS (test code = 0369145852) 85 U/L 34-122 ALTv (test code = 1742-6) 27 U/L 5-35 AST(SGOT) (test code = 3674978056) 53 U/L 13-40 H Lab Interpretation (test code = Abnormal 65144-0) [facility] CenterCT HEAD WO [id number] 02:03:35 No acute intracranial findings. 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 Correlation with prior surgical history suggested. CT HEAD WO CONTRAST HISTORY: Female 55 years Dizziness, persistent/recurrent, cardiac orvascular cause suspected COMPARISON: None TECHNI QUE: Noncontrast CT images of the head with multiplanar reformats. FINDINGS: Left occipital craniectomy with cystic region in the left cerebellum likelyreflecting resection cavity. Overlying dural complications are noted. The ventricles and sulci are normal in size and configuration. Nointracranial abn ormality such as hemorrhage, edema, mass-effect, midlineshift, hydrocephalus or pathologic extra axial fluid collection isappreciated. The basal cisterns are patent. No parenchymal attenuation abnormality. The menjivar-white matterdifferentiation is preserved. The calvarium and central skull base intact. Mild ethmoid air cell mucosalthickening. [facility], Radiant Results Inft User - 04/01/2021 9:04 [...] the leftcerebellum. Correlation with prior surgical history suggested.[facility] CenterUrinalysis2021-05-25 01:59:54 Test Item Value Reference Range Interpretation Comments APPEARANCE (test code = Clear Clear 9595136469) COLOR (test code = Yellow Yellow 1931383117) PH (test code = 4.8-8.0 9351270744) SP GRAVITY (test code = 1.003-1.030 1799889739) GLU U QUAL (test code = Normal Normal 6152132293) BLOOD (test code = Negative Negative 2592535708) KETONES (test code = Negative Negative 7620103932) PROTEIN (test code = Negative Negative 2887-8) UROBILIN (test code = Normal Normal 3385616252) BILIRUBIN (test code = 2 mg/dL Negative A 6930169130) NITRITE (test code = Negative Negative 4383818074) LEUK MERYL (test code = 250/uL Negative A 5591007231) RBC/HPF (test code = See_Comment [Autom ated message] 4513766556) The system [employer] generated this result transmitted ref erence range: 0 - 3 HP F. The reference range was not used to int erpret this result as normal/abnormal . WBC/HPF (test code = See_Comment H [Autom ated message] 2072755139) The system [employer] generated this result transmitted ref erence range: 0 - 5 HP F. The reference range was not used to int erpret this result as normal/abnormal . BACTERIA (test code = Few Negative A 5259360365) MUCOUS (test code = Slight Negative LPF A 6439921512) SQ EPITH (test code = HPF 2031472551) HYAL CAST (test code = See_Comment [Aut omated message] 7786183455) The system [employer] generated this result transmitted ref erence range: <=2 LPF. The reference range was not used to int erpret this result as normal/abnormal . Lab Interpretation (test Abnormal code = 56161-3) [facility] CenteraPTT2021-05-25 01:49:53 Test Item Value Reference Range Interpretation Comments APTT Patient (test See_Comment [Automat ed code = 3173-2) message] The system which generated this result transmitted reference range : 23 - 38 Seconds . The reference range was not used to interpr et this result as normal/abnormal . SHEILA (test code = SHEILA) The [facility] patient population mean normal value for aPTT is 30 seconds. Lab Interpretation Normal (test code = 21166-4) [facility] CenterProthrombin Time (PT) / [id number] 01:47:51 Test Item Value Reference Range Interpretation [...] tions. Lab Interpretation (test Normal code = 10244-5) [facility] with Xetgdvkyoevk4487-94-20 01:38:27 Test Item Value Reference Range Interpretation Comments WBC (test code = See_Comment [Automated 9490-2) message] The sy stem which generated this result transmitted reference range : 4.30 - 11.10 10*3/?L. The reference range was not used to interpret this result as normal/abnormal . RBC (test code = See_Comment [Automated 769-8) message] The sy stem which generated this [...] RDW-SD (test code = 44.2 fL 39.0-49.9 59921-8) RDW-CV (test code = 12.5 % 12.0-15.5 788-0) PLT (test code = See_Comment [Automated 777-3) message] The sy stem which generated this result transmitted reference range : 166 - 358 10*3/ ?L. The reference r kendell was not used to interpret this result as normal/abnormal . MPV (test code = 9.4 fL 9.5-12.9 L 05524-8) NRBC/100 WBC (test See_Comment [Automat ed code = 7351322545) message] The system which generated this result transmitted reference range : 0.0 - 10.0 /100 WBCs. The refer ence range was not u sed to interpret th is result as normal/abnormal . NRBC x10^3 (test code <0.01 See_Comment [Auto mated = 6021967407) message] The s ystem which generated this result transmitted reference range : 10*3/?L. The reference range was not used to interpret this result as normal/abnormal . GRAN MAT (NEUT) % 63.0 % (test code = 770-8) IMM GRAN % (test code 0.10 % = 2076626669) LYMPH % (test code = 21.2 % 736-9) MONO % (test code = 8.0 % 5905-5) EOS % (test code = 7.1 % 713-8) BASO % (test code = 0.6 % 706-2) GRAN MAT x10^3(ANC) 6.08 10*3/uL 1.88-7.09 (test code = 7373563393) IMM GRAN x10^3 (test <0.03 0.00-0.06 code = 5932027612) LYMPH x10^3 (test code 2.04 10*3/uL 1.32-3.29 = 731-0) MONO x10^3 (test code 0.77 10*3/uL 0.33-0.92 = 742-7) EOS x10^3 (test code = 0.68 10*3/uL 0.03-0.39 H 711-2) BASO x10^3 (test code 0.06 10*3/uL 0.01-0.07 = 704-7) Lab Interpretation Abnormal (test code = 58552-8) [facility] CenterCONSENT TO CONTACT FOR VOLUNTARY RESEARCH 2020-08-30 19:43:51 Test Item Value Reference Range Interpretation Comments Consent To Contact For Voluntary Yes Research (test code = 4947) [facility]"
[2022-07-20] MEDS ORDERED: LORazepam 2 MG/ML VIAL ONE (03:59)
[2022-07-20 04:04] LABS: Absolute Lymphocytes (CBC) 1.3 K/uL (0.7-4.9); Hematocrit 37.2 % (36.0-45.0); Lymphocytes % 15.6 % (15.3-44.8); MCV 91.9 fL (80-100); MPV 6.9 fL (7.6-11.3); RBC Red Blood Cell Count 4.05 M/uL (3.86-4.86)
[2022-07-20 04:07] LABS: Protime INR 1.01
[2022-07-20 04:13] LABS: Sodium Level 137 mmol/L (136-145)
[2022-07-20 04:16] LABS: Albumin 4.3 g/dL (3.4-5.0); BUN Blood Urea Nitrogen 18 mg/dL (7-18); Bicarbonate 25 mmol/L (21-32); Glucose Level 116 mg/dL (74-106)
[2022-07-20 04:19] LABS: ALT/SGPT 37 U/L (12-78); AST/SGOT 19 U/L (15-37); Bilirubin Direct 0.2 mg/dL (0-0.2); Glomerular Filtration Rate 35 ml/min (=/>90)
[2022-07-20 04:22] LABS: Alkaline Phosphatase 99 U/L (45-117); Bilirubin Total 0.8 mg/dL (0.2-1.0); Protein, Total 7.1 g/dL (6.4-8.2)
[2022-07-20 04:24] LABS: SARS-CoV-2 Antigen Rapid Res Negative (Negative)
[2022-07-20] MEDS ORDERED: NA CHLORIDE 0.9% 1,000 ML ONE (05:34)
[2022-07-20 05:42] LABS: Urine Blood Negative (Negative); Urine Glucose Negative (Negative); Urine Protein Negative (Negative); Urine Specific Gravity 1.025 (1.005-1.030); Urine pH 5.5 (5.0-7.0)
[2022-07-20 05:56] LABS: Barbiturates NEGATIVE (NEGATIVE); Benzodiazepines NEGATIVE (NEGATIVE); Cocaine NEGATIVE (NEGATIVE); METHAMPHETAM POSITIVE (NEGATIVE); Methadone NEGATIVE (NEGATIVE); Opiates NEGATIVE (NEGATIVE); Phencyclidine NEGATIVE (NEGATIVE); THC Cannibis POSITIVE (NEGATIVE)
[2022-07-20 05:59] LABS: Urine Bacteria 20-50 /HPF (<20); Urine Mucus Slight /HPF (None Seen); Urine RBC <5 /HPF (None Seen)
--- NOTE | 2022-07-20 08:29 | EDPHYS ---
Physician Documentation [facility] Name: Betsey Martel Age: 57 yrs Sex: Female : 1965 Arrival Date: 07/20/2022 Time: 03:37 Bed 4 Private MD: ED Physician Christian Amaya HPI: 07/20 06:35 This 57 yrs old Female presents to ER via EMS with complaints of AMS. rn 06:35 The patient presents with agitation. Onset: The symptoms/episode began/occurred at an rn unknown time. Possible causes: drug use, unknown. Associated signs and symptoms: Pertinent positives: agitation, combativeness, Pertinent negatives: abdominal pain, chest pain. Current symptoms: In the emergency department the patient's symptoms are unchanged from the initial presentation. It is unknown whether or not the patient has had similar symptoms in the past. It is unknown whether or not the patient has recently seen a physician. Pt brought in by EMS for agitation and combative behavior. Per EMS report, someone at scene thought she might have taken something or extra sleep medication. No known trauma. . Historical: - Allergies: 04:09 Cymbalta; as6 04:09 GABAPENTIN; as6 04:09 Seroquel; as6 - PMHx: 04:09 Anemia; BRAIN TUMOR 1996; CHF; Chronic pain; degenerative bone disease; Depression; as6 ETHO INTOXICATION; GERD; Hip Pain; Hypertension; Hypothyroidism; kidney disease; osteoarthritis; Rheumatoid Arthritis; THORACIC AORTIC ANEURYSM; - Immunization history:: Adult Immunizations unknown. - Social history:: Smoking status: unknown. - Family history:: not pertinent. - History obtained from: EMS. - Unable to obtain history due to: altered mental status, patient being uncooperative. ROS: 06:35 Unable to obtain ROS due to altered mental status, patient being uncooperative. rn Exam: 06:35 Constitutional: This is a well developed, well nourished patient who is awake, alert, rn agitated and fighting with staff Head/Face: Normocephalic, atraumatic. Eyes: Periorbital areas with no swelling, redness, or edema. ENT: dry MM Neck: Trachea midline, no thyromegaly or masses palpated, and no cervical lymphadenopathy. Supple, full range of motion without nuchal rigidity, or vertebral point tenderness. No Meningismus. Cardiovascular: Regular rate and rhythm. No pulse deficits. Respiratory: No increased work of breathing, no retractions or nasal flaring. Abdomen/GI: Soft, non-tender Back: No spinal tenderness. No costovertebral tenderness. Full range of motion. Skin: Warm, dry MS/ Extremity: Pulses equal, no cyanosis. Neuro: Awake, agitated, moves all 4 extremities, requiring restraints. Not cooperative with exam. Vital Signs: 03:30 BP 144 / 67; Pulse 84; Resp 20 S; Pulse Ox 97% on R/A; Weight 58.97 kg; as6 05:31 BP 124 / 62; Pulse 65; Resp 18 S; Pulse Ox 98% on R/A; as6 07:00 BP 137 / 76; Pulse 59; Resp 17; Pulse Ox 97% ; Pain 0/10; jh6 08:00 BP 141 / 74; Pulse 61; Resp 14; Pulse Ox 98% ; Pain 0/10; 6 09:00 BP 145 / 74; Pulse 62; Resp 16; Pulse Ox 98% ; 6 12:00 BP 145 / 82; Pulse 54; Resp 16; Pulse Ox 100% ; 6 13:00 BP 142 / 65; Pulse 54; Resp 16; Pulse Ox 99% ; 6 14:00 BP 175 / 80; Pulse 53; Resp 16; Pulse Ox 100% ; 6 15:00 BP 170 / 80; Pulse 83; Resp 16; Pulse Ox 99% ; 6 16:00 BP 156 / 79; Pulse 53; Resp 16; Pulse Ox 100% ; 6 19:30 BP 119 / 53; Pulse 54; Resp 18 S; Pulse Ox 98% on R/A; as6 MDM: 03:42 Patient medically screened. rn 08:31 Differential Diagnosis: CVA, electrolyte abnormality, alcohol intoxication, maria esther hypoglycemia, intracranial bleed, overdose, pneumonia, volume depletion. Data reviewed: vital signs, nurses notes, EMS record, lab test result(s), EKG. Data interpreted: hall monitor: rate is 65 beats/min, rhythm is regular, Pulse oximetry: on room air is 98 %. Test interpretation: by ED physician or midlevel provider: ECG. Counseling: I had a detailed discussion with the patient and/or guardian regarding: the historical points, exam findings, and any diagnostic results supporting the discharge/admit diagnosis, lab results, radiology results, the need for outpatient follow up, for definitive care, a family practitioner. 07/20 03:45 Order name: Acetaminophen; Complete Time: 05:30 07/20 03:45 Order name: Basic Metabolic Panel; Complete Time: 05:30 07/20 03:45 Order name: CBC with Diff; Complete Time: 04:07 07/20 03:45 Order name: ETOH Level; Complete Time: 05:30 07/20 03:45 Order name: Hepatic Function; Complete Time: 05:30 07/20 03:45 Order name: PT-INR; Complete Time: 05:30 07/20 03:45 Order name: Ptt, Activated; Complete Time: 05:30 07/20 03:45 Order name: Salicylate; Complete Time: 05:30 07/20 03:45 Order name: Urine Drug Screen; Complete Time: 06:34 07/20 03:45 Order name: Urine Microscopic Only; Complete Time: 06:34 07/20 03:45 Order name: SARS RAPID; Complete Time: 05:30 07/20 05:42 Order name: Urine Dipstick-Ancillary; Complete Time: 06:34 [facility] 07/20 06:01 Order name: Urine Culture [facility] 07/20 15:51 Order name: CBC with Diff; Complete Time: 18:24 [facility] 07/20 03:45 Order name: IV Start; Complete Time: 04:06 07/20 03:45 Order name: EKG; Complete Time: 03:46 07/20 03:45 Order name: EKG - Nurse/Tech; Complete Time: 05:20 07/20 03:45 Order name: Labs collected and sent; Complete Time: 04:06 07/20 03:45 Order name: Urine Dipstick-Ancillary (obtain specimen); Complete Time: 05:45 07/20 03:46 Order name: CT Head Brain wo Cont 07/20 15:51 Order name: Chem 7; Complete Time: 18:48 [facility] 07/20 15:51 Order name: ABG; Complete Time: 16:27 [facility] 07/20 17:49 Order name: Labs - recollect needed: recollect chem 7/ diff results from previous draw; eb Complete Time: 19:13 07/20 18:50 Order name: Misc. Order: ambulate , po challange,dc; Complete Time: 19:13 maria esther Administered Medications: 03:52 Drug: Ativan (LORazepam) 1 mg Route: IM; Site: left deltoid; as6 04:20 Follow up: Response: No adverse reaction; RASS: Drowsy (-1) ha1 05:44 Drug: NS 0.9% 1000 ml Route: IV; Rate: 1000 ml; Site: right wrist; ha1 19:31 Follow up: Response: No adverse reaction; IV Status: Completed infusion; IV Intake: as6 1000ml Disposition Summary: 07/20/22 08:29 Discharge Ordered Location: Home maria esther Problem: new maria esther Symptoms: have improved maria esther Condition: Fair maria esther Diagnosis - Altered mental status, unspecified maria esther - Adverse effect of amphetamines maria esther - Unspecified kidney failure - renal insufficency maria esther Followup: maria esther - With: Private Physician - When: 2 - 3 days - Reason: Recheck today's complaints, Continuance of care, Re-evaluation by your physician Discharge Instructions: - Discharge Summary Sheet maria esther - Amphetamines Use Disorder maria esther - Confusion maria esther - Methamphetamines Use Disorder maria esther - Acute Kidney Injury, Adult maria esther - Chronic Kidney Disease, Adult, [id number]-or-[id number] maria esther - Substance Use Disorder and Mental Illness maria esther Forms: - Medication Reconciliation Form maria esther - Thank You Letter maria esther - Antibiotic Education maria esther - Prescription Opioid Use maria esther Signatures: Dispatcher [employer] Christian Quiroz MD MD cha Nieto, Roman, MD MD rn Botello, Elizabeth eb Slawson, Ashby, RN RN as6 Emilie Hernandez PA PA [email or web address] Suze Holloway, RN RN ha1
--- NOTE | 2022-07-20 08:29 | ER ---
Nurse's Notes [facility] Name: Betsey Martel Age: 57 yrs Sex: Female : 1965 Arrival Date: 07/20/2022 Time: 03:37 Bed 4 Private MD: Diagnosis: Altered mental status, unspecified;Adverse effect of amphetamines;Unspecified kidney failure-renal insufficency Presentation: 07/20 03:30 Chief complaint: EMS states: called out for altered mental status. on arrival to ER pt as6 is altered and combative. Coronavirus screen: At this time, the client does not indicate any symptoms associated with coronavirus-19. Ebola Screen: No symptoms or risks identified at this time. Initial Sepsis Screen: Does the patient meet any 2 criteria? Altered Mental Status. Does the patient have a suspected source of infection? No. Patient's initial sepsis screen is negative. Risk Assessment: Do you want to hurt yourself or someone else? Unable to obtain. Onset of symptoms is unknown. 03:30 Method Of Arrival: EMS: [facility] as6 03:30 Acuity: KAREN 2 as6 Historical: - Allergies: 04:09 Cymbalta; as6 04:09 GABAPENTIN; as6 04:09 Seroquel; as6 - PMHx: 04:09 Anemia; BRAIN TUMOR 1996; CHF; Chronic pain; degenerative bone disease; Depression; as6 ETHO INTOXICATION; GERD; Hip Pain; Hypertension; Hypothyroidism; kidney disease; osteoarthritis; Rheumatoid Arthritis; THORACIC AORTIC ANEURYSM; - Immunization history:: Adult Immunizations unknown. - Social history:: Smoking status: unknown. - Family history:: not pertinent. - History obtained from: EMS. - Unable to obtain history due to: altered mental status, patient being uncooperative. Screenin:11 Abuse screen: Denies threats or abuse. Denies injuries from another. Nutritional as6 screening: No deficits noted. Tuberculosis screening: No symptoms or risk factors identified. Fall Risk None identified. Assessment: 03:30 General: Appears unkempt, Behavior is combative, restless. Pain: Unable to use pain as6 scale. Does not appear to understand pain scale. Neuro: Level of Consciousness is awake, alert. Respiratory: Respiratory effort is even, unlabored. 05:41 Neuro: Level of Consciousness is drowsy. . Respiratory: Respiratory effort is even, ha1 unlabored, Respiratory pattern is regular, symmetrical. 07:10 General: Appears in no apparent distress. Behavior is calm, drowsy. Neuro: Levine 6 Agitation-Sedation Scale (RASS): -4 Deep sedation Level of Consciousness is Oriented to none. 07:10 General: Pt with eye closed and restful when walked into room. Pt responds to tactile jh6 stimuli but not able to stay awake. . 08:00 Reassessment: No changes from previously documented assessment. 6 09:00 Reassessment: Patient and/or family updated on plan of care and expected duration. Pain jh6 level reassessed. pt will wake up with verbal and tactile stimuli and will open her eyes and say "what" but will not stay awake. 10:00 Reassessment: No changes from previously documented assessment. [facility] 11:30 Reassessment: Patient and/or family updated on plan of care and expected duration. Pain jh6 level reassessed. Pt woke up with verbal and tactile stimulation. Pt needs continuous tactile to stay awake. When asked what happened last night, pt confused and states that she doesn't know and doesn't know how she got to the ER. Contacted son to have him come to er. 12:30 Reassessment: Patient and/or family updated on plan of care and expected duration. Pain jh6 level reassessed. son at bedside and was able to sit pt up in bed and she recognized son but was unable to stay awake. pt having episodes where she will wake up and be slightly cognitive of surroundings but then falls back to sleep. pt when asked denied using drugs or etoh last night. 13:30 Reassessment: Patient and/or family updated on plan of care and expected duration. Pain jh6 level reassessed. pt resting, yelling on occasion that she is cold and reaches for blanket that she kicked off. 14:30 Reassessment: No changes from previously documented assessment. 6 15:30 Reassessment: No changes from previously documented assessment. pts son called and 6 advised that pt is waking up more with stimulation but still drowsy. he reports that he is going to go to pts house in attempt to look through pts meds to see if she took to many of a narcotic. son also advised that THC may be in her system due to "Gummies" that he got for her, for pain. 16:33 Reassessment: Patient and/or family updated on plan of care and expected duration. Pain jh6 level reassessed. Dr Delgado advised that pt is still difficult to keep awake and further labs ordered. Vital Signs: 03:30 BP 144 / 67; Pulse 84; Resp 20 S; Pulse Ox 97% on R/A; Weight 58.97 kg; as6 05:31 BP 124 / 62; Pulse 65; Resp 18 S; Pulse Ox 98% on R/A; as6 07:00 BP 137 / 76; Pulse 59; Resp 17; Pulse Ox 97% ; Pain 0/10; jh6 08:00 BP 141 / 74; Pulse 61; Resp 14; Pulse Ox 98% ; Pain 0/10; jh6 09:00 BP 145 / 74; Pulse 62; Resp 16; Pulse Ox 98% ; jh6 12:00 BP 145 / 82; Pulse 54; Resp 16; Pulse Ox 100% ; jh6 13:00 BP 142 / 65; Pulse 54; Resp 16; Pulse Ox 99% ; jh6 14:00 BP 175 / 80; Pulse 53; Resp 16; Pulse Ox 100% ; jh6 15:00 BP 170 / 80; Pulse 83; Resp 16; Pulse Ox 99% ; jh6 16:00 BP 156 / 79; Pulse 53; Resp 16; Pulse Ox 100% ; jh6 19:30 BP 119 / 53; Pulse 54; Resp 18 S; Pulse Ox 98% on R/A; as6 ED Course: 03:37 Patient arrived in ED. mw2 03:42 Gage Garcia MD is Attending Physician. rn 03:47 Patric Moreno RN is Primary Nurse. as6 03:50 Inserted saline lock: 22 gauge in right hand, using aseptic technique. as6 04:06 SARS RAPID Sent. as6 04:06 Acetaminophen Sent. as6 04:06 Basic Metabolic Panel Sent. as6 04:07 ETOH Level Sent. as6 04:07 Hepatic Function Sent. as6 04:07 PT-INR Sent. as 04:07 Ptt, Activated Sent. as6 04:07 Salicylate Sent. as6 04:09 Triage completed. as6 04:10 Arm band placed on. as6 04:12 Bed in low position. Call light in reach. Side rails up X2. as6 05:45 Urine Microscopic Only Sent. aa9 05:45 Urine Drug Screen Sent. aa9 06:05 CT Head Brain wo Cont In Process Unspecified. EDNV 07:21 Attending Physician role handed off by Gage Garcia MD [facility] 07:21 Christian Delgado MD is Attending Physician. [facility] 07:25 Primary Nurse role handed off by Patric Moreno RN eb 16:19 ABG's: Patient ID and date of verified, drawn from right brachial artery, eb2 pressure held for 5 minutes no bleeding noted pt. tolerated poorly. Other: ABG RESULTS IN [facility]. RESULTS GIVEN TO DR. DELGADO.. Education provided to the patient regarding: ABG (procedure, "what to expect", and follow up care). 16:25 Deena Sears, RN is Primary Nurse. [facility] 19:31 No provider procedures requiring assistance completed. IV discontinued, intact, as6 bleeding controlled, No redness/swelling at site. Pressure dressing applied. Administered Medications: 03:52 Drug: Ativan (LORazepam) 1 mg Route: IM; Site: left deltoid; as6 04:20 Follow up: Response: No adverse reaction; RASS: Drowsy (-1) ha1 05:44 Drug: NS 0.9% 1000 ml Route: IV; Rate: 1000 ml; Site: right wrist; ha1 19:31 Follow up: Response: No adverse reaction; IV Status: Completed infusion; IV Intake: as6 1000ml Medication: 19:31 VIS not applicable for this client. as6 Intake: 19:31 IV: 1000ml; Total: 1000ml. as6 Outcome: 08:29 Discharge ordered by . [facility] 19:31 Discharged to home via wheelchair, with family. as6 19:31 Condition: stable 19:31 Discharge instructions given to family, Instructed on discharge instructions, follow up and referral plans. Demonstrated understanding of instructions, follow-up care. 19:32 Patient left the ED. as6 Signatures: Dispatcher [employer] Christian Quiroz MD MD cha Nieto, Roman, MD MD rn [place], MyKena 2 [place] Elisa, R/T R/T eb2 Patric Moreno RN RN as6 Deena Sears RN RN [facility] Micki Harper RN RN [facility] Suze Holloway, RN RN ha1 Corrections: (The following items were deleted from the chart) 04:07 03:30 Inserted saline lock: 22 gauge in right hand, using aseptic technique. : 03:00 General: Appears unkempt, Behavior is combative, restless, as: 03:00 Neuro: Level of Consciousness is awake, alert, as: 03:00 Pain: Unable to use pain scale. Does not appear to understand pain scale. as: 03:00 Respiratory: Respiratory effort is even, unlabored, as6
[2022-07-20 16:14] LABS: Blood Gas Oxyhemoglobin 94.4 % (94-97); Blood O2 Saturation 96.9 % (92-98.5)
--- NOTE | 2022-07-20 18:07 | RAD REPORT ---
EXAM DESCRIPTION: CT Head Without Intravenous Contrast CLINICAL HISTORY: The patient is 57 years old and is Female; AMS TECHNIQUE: Axial computed tomography images of the head/brain without intravenous contrast. Sagitt al and coronal reformatted images were created and reviewed. This CT exam was performed using one o r more of the following dose reduction techniques: automated exposure control, adjustment of the mA and/or kV according to patient size, and/or use of iterative reconstruction technique. COMPARISON: No relevant prior studies available. FINDINGS: Brain: Remote left cerebellar infarct or insult. No hemorrhage. No significant white matter disease. Ventricles: Unremarkable. No ventriculomegaly. Bones/joints: Left occipital craniectomy. No acute fracture. Soft tissues: Unremarkable. Sinuses: Unremarkable as visualized. Mastoid air cells: Unremarkable as visualized. No mastoid effusion. IMPRESSION: No acute intracranial abnormality. Electronically signed by: Manuel Shelton MD 07/20/2022 6:30 AM CDT Due to temporary technical issues with the PACS/Fluency reporting system, reports are being signed by the in house radiologists without review as a courtesy to insure prompt reporting. The interpreting radiologist is fully responsible for the content of the report.
[2022-07-20 18:13] LABS: Absolute Lymphocytes (CBC) 1.3 K/uL (0.7-4.9); Hematocrit 40.5 % (36.0-45.0); Lymphocytes % 16.5 % (15.3-44.8); MCV 91.4 fL (80-100); RBC Red Blood Cell Count 4.43 M/uL (3.86-4.86)
[2022-07-20 18:34] LABS: Potassium 4.1 mmol/L (3.5-5.1)
[2022-07-20 20:39] VITALS: BP 119/53; O2SAT 98
--- NOTE | 2022-07-21 05:39 | EKG ---
Test Date: 2022-07-20 Test Time: 04:09:57 Repeat Chief: DEVONTE MEASUREMENT RESULTS: Intervals: Rate: 68 NH: 172 QRSD: 94 QT: 440 QTc: 467 [place]: P: 78 NH: 172 QRS: 71 T: 71 INTERPRETIVE STATEMENTS: Normal sinus rhythm Normal ECG Compared to ECG 02/24/2022 09:39:13 T-wave abnormality no longer present Possible ischemia no longer present Electronically Signed On 07-21-22 05:38:04 CDT by Lavell Ruiz
== END 2022-07-20 19:32 | disposition home or self-care (01) ==
LOC: ER 03:35
DX: R41.82 Altered mental status, unspecified (principal); T43.625A Adverse effect of amphetamines, initial encounter; N28.9 Disorder of kidney and ureter, unspecified; Z20.822 Contact with and (suspected) exposure to COVID-19; I10 Essential (primary) hypertension; Z88.8 Allergy status to other drugs, medicaments and biological substances
CPT/HCPCS: 96361; 93005; 87088; 85025 ×2; 87086; 80048 ×2; 36415; 80320; 80329 ×2; 85610; 80076; 85730; 80307; 70450; 82805; 96360; 96372; 99285; 87811; J7030; 81003; 81015

== ENCOUNTER 2023-01-28 05:33 | Emergency (ER) | payer OTHER ==
--- OUTSIDE RECORDS SUMMARY | 2023-01-28 05:52 | XMS REPORT | Continuity of Care Document ---
:1965 Author Organization [facility] t Address [address] [place] [address] Care Team Providers Name Role Phone Gibran Owens Primary Care Physician GERALD MCKEON Attending Clinician Unavailable VIDAL GALE Attending Clinician Unavailable VIDAL GALE Attending Clinician Unavailable ISABEL HIDALGO Attending Clinician Unavailable CY VELASQUEZ Attending Clinician Unavailable Harriet TAYLOR, Liza Lutz Attending Clinician Wilma Forde MD Attending Clinician Nagi SHEA, Bright Attending Clinician BRIGHT LAZAR Attending Clinician Unavailable Doctor Unassigned, Hinckley Attending Clinician Unavailable STEPHANIA GARCIA Attending Clinician Unavailable JEFFERSON SIDHU Attending Clinician Unavailable TRINITY DONOHUE Attending Clinician Unavailable Trinity Donohue DO Attending Clinician JOSEPH CARRANZA Attending Clinician Unavailable EMILY ZABALA Attending Clinician Unavailable Only, Ang Db Test Attending Clinician Unavailable Sandip Suarez Attending Clinician SANDIP RUIZ Attending Clinician Unavailable Pob, Adc Lab Main Attending Clinician Unavailable Beau Romero MD Attending Clinician BEAU ROMERO Attending Clinician Unavailable Tae Salazar MD Attending Clinician Tl FABIAN, Fartun Julius Attending Clinician [phone] Goyo Clark MD Attending Clinician GOYO CLARK Attending Clinician Unavailable GOYO CLARK Attending Clinician Unavailable CECELIA SIMMONS Attending Clinician Unavailable Chelsey Clay RN Attending Clinician Unavailable Steven Maloney MD Attending Clinician Renzo Thomson MD Attending Clinician LIZA LARIOS Attending Clinician Unavailable Christian Rutherford RN Attending Clinician Unavailable BALJIT COPELAND Attending Clinician Unavailable Baljit Copeland DO Attending Clinician KRAIG SUAREZ Attending Clinician Unavailable LASHAWN BOLES Attending Clinician Unavailable Lab, Adc Fam Pob I Attending Clinician Unavailable Tona Wilkes Attending Clinician Billy Zheng Attending Clinician TONA MATTSON Attending Clinician Unavailable Annika Sandoval PA-C Attending Clinician ANNIKA SANDOVAL Attending Clinician Unavailable KELLI SMITH Attending Clinician Unavailable MICHELINE ORTIZ Attending Clinician Unavailable Emily BENJAMIN, Isabell Attending Clinician Unavailable JERSEY GARLAND Admitting Clinician Unavailable TRINITY DONOHUE Admitting Clinician Unavailable Liza Larios MD Admitting Clinician LIZA LARIOS Admitting Clinician Unavailable WANDA CRESPO Admitting Clinician Unavailable SAMANTHA ONOFRE Admitting Clinician Unavailable Payers Payer Name Policy Type Policy Number Effective Date Expiration Date S gabrielle [facility] WELLMED [id number] 2019 2024 00:00:00 00:00:00 [facility] DUAL [id number] 2021 COMP HMO D SNP 00:00:00 [place] OF [place] [id number] 2006 00:00:00 Problems Condition Condition Condition Status Onset Resolution Last Treating Co mments Source Name Details Category Date Date Treatment Clinician Date Vaginal Vaginal Disease Active Univers discharge discharge 1-20 ity of 00:00: [address] Branch Mass of Mass of Disease Active Univers breast, breast, 1-20 ity of unspec[place] Medical laterality laterality Br anch Other Other Disease Active Univers signs and signs and 1-20 ity of symptoms symptoms 00:00: [place] in breast in breast 00 [facility] Branch Chronic Chronic Disease Active 2021-11 UT arterial arterial 0-19 Health ischemic ischemic 00:00: stroke stroke 00 Anxiety Anxiety Disease Active 2021-11 [facility] 0-19 Health 00:00: 00 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 0-19 He alth n n 00:00: associated associated 00 with with depression depression METABOLIC Diagnosis Active 2021-112022-09-01 Memoria ENCEPHALOP METABOLIC 0-11 07:25:00 l ATHY ENCEPHALOP 16:45: Salvatore mazariegos ATHY 00 Active [facility] STROKE STROKE Diagnosis Active 2021-112022-08-19 Me moria LIKE LIKE 0-11 18:25:00 l SYMPTOMS SYMPTOMS 00:00: Salvatore mazariegos Active 00 08/19/2022 [facility] PRES PRES Disease Active UT (posterior (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 athy syndrome) syndrome) History of History of Disease Active U T resection resection 07-28 Heal of of 00:00: meningioma meningioma 00 Seizure Seizure Disease Active UT 07-28 Health 00:00: 00 STROKE STROKE Diagnosis Active 2022-02-03 M emoria LIKE LIKE 02-02 11:14:00 l Active 00:00: Mohan 02/02/[address] [place] [address] Mohan R41.89 - R41.89 - Diagnosis Active 2021-08-09 Memoria OTH OTH 07-29 10:18:00 l SYMPTOMS SYMPTOMS 00:01: Salvatore mazariegos AND SIGNS AND SIGNS 00 W COGNI W COGNI Active 07/29/2021 ANNE MARIE [place] Opioid Opioid Disease Active Univers abuse with abuse with 5-25 it y of intoxicati intoxic[place] with 00 Medical complicati complicati Br anch on on Opioid Opioid Disease Active Univers abuse with [...] and grafts, grafts, initial initial encounter encounter I63.9 - I63.9 - Diagnosis Active 2019-112020-10-30 Memoria CEREBRAL CEREBRAL -19 11:58:00 l INFARCTION INFARCTION 00:01: He cathryn , , 00 UNSPECIFI UNSPECIFI Active 10/27/2020 ANNE MARIE Levine ISCHEMIC ISCHEMIC Diagnosis Active 2019-112020-10-16 Memoria CVA CVA Active 11-27 21:55:00 l 09/27/2020 00:00: Salvatore mazariegos [address] SEIZURE SEIZURE Diagnosis Active 2019-112020-09-28 Memoria Active 11-26 13:11:00 l 09/26/2020 00:00: Salvatore mazariegos [facility] 00 Mohan R92.8 - R92.8 - Diagnosis Active 2019-112020-11-02 Memoria OTH ABN OTH ABN 0 15:34:00 l AND AND 00:01: Mohan INCONCLUSI INCONCLUSI 00 VE FINDI VE FINDI Active 08/09/2020 OPILeigh Mallie Hypertroph Hypertroph Disease Active M ethodi y of bone, y of bone, 8-13 st right right 00:00: [facility]osp[facility] humerus humerus 00 l WEAKNESS WEAKNESS Diagnosis Active 2020-05-03 Memoria Active 04-24 17:07:00 l 04/24/2020 21:30: Salvatore mazariegos [facility] 00 [place] CONVULSION CONVULSIO Diagnosis Active 2020-03-19 Memchaitanya S NS Active 03-19 00:58:00 l 03/19/2020 00:00: Salvatore mazariegos [facility] 00 Mohan VASOGENIC VASOGENIC Diagnosis Active 2020-03-27 [facility] EDEMA EDEMA 03-18 21:50:00 l NSTEMI NSTEMI 00:00: Mohan Active 00 03/18/[address] [facility] SUPRAVALVU SUPRAVALV Diagnosis Active 2019-08-05 Memoria LAR AORTIC ULAR 07-26 15:44:00 l STENOSIS AORTIC 00:00: Mohan STENOSIS 00 Active 07/26/[address] [facility] I71.0 - I71.0 - Diagnosis Active 2019-06-20 Memoria DISSECTION DISSECTION 06-13 14:11:00 l OF AORTA OF AORTA 00:01: Salvatore mazariegos Active 00 06/13/2019 OPID Mallie Screening Screening Disease Active Uni vers for for 08-04 ity of osteoporos osteoporos [place] [facility] Flu Flu Disease Active Univers vaccine vaccine 08-04 ity of need need 00:00: [place] 00 [facility] Postnasal Postnasal Disease Active Uni vers drip drip 9-26 ity of 00:00: [place] 00 Medical Branch [...] She states this has been for years Enlarged Enlarged Disease Active Unive rs thyroid thyroid 2-26 ity of gland gland 00:00: [place] [facility] Multiple Multiple Disease Active Unive rs thyroid thyroid 2-26 ity of nodules nodules 00:00: [place] [facility] Right Right Disease Active Univers thyroid thyroid 2-26 ity of nodule nodule 00:00: [place] 00 Medical [facility] HLD HLD Disease Active Univers (hyperlipi (hyperlipi 2-26 it y of demia) demia) 00:00: [place] 00 Medical [facility] 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 ANNOTATE. 00 note Medi dyan might be Branch different from the original. S/p overdose on Ambien, Skelaxin, Atenolol Unspecifie Unspecifi Problem 2022-02-10 Memoria d speech ed speech 07:07:04 l disturbanc disturbanc Brian arzola 02/10/2022 [place] Other Other Problem 2022-02-10 Memor ia psychoacti psychoacti 07:07:04 l ve ve [place] substance substance use, use, unspecifie unspecifie d with d with intoxicati intoxicati on, on, unspecifie unspecifie d d 02/10/2022 [facility] Hypothyroi Problem 2022-02-10 M emoria dism, Hypothyroi 07:07:04 l unspecifie dism, Salvatore n d unspecifie d 02/10/2022 [facility] Nicotine Nicotine Problem 2022-02-10 Memoria dependence dependence 07:07:04 l , , [place] cigarettes cigarettes , , uncomplica uncomplica theodore theodore 02/10/2022 [facility] Contact Contact Problem 2022-02-10 Me moria with and with and 07:07:04 l (suspected (suspected He rmann ) exposure ) exposure to COVID19 to COVID19 [facility] Depression Depressio Problem 2022-02-10 Memoria , n, 07:07:04 l unspecifie unspecifie He rmann d d 02/10/2022 [facility] Restless Restless Problem 2022-02-10 Memoria legs legs 07:07:04 l syndrome syndrome Salvatore n 02/10/2022 [facility] Hypertensi Hypertens Problem 2022-02-10 Memoria ve chronic osmany 07:07:04 l kidney chronic Mohan disease kidney with stage disease 1 through with stage stage 4 1 through chronic stage 4 kidney chronic disease, kidney or disease, unspecifie or d chronic unspecifie kidney d chronic disease kidney disease 02/10/2022 [facility] Chronic Chronic Problem 2022-02-10 Me moria kidney kidney 07:07:04 l disease, disease, Salvatore n unspecifie unspecifie d d 02/10/2022 [facility] Rheumatoid Rheumatoi Problem 2022-02-10 Memoria arthritis, d 07:07:04 l unspecifie arthritis, He rmann d unspecifie d 02/10/2022 [facility] Personal Personal Problem 2022-02-10 Memoria history of history of 07:07:04 l transient transient Herm gabriel ischemic ischemic attack attack (TIA), and (TIA), and cerebral cerebral infarction infarction without without residual residual deficits deficits 02/10/2022 [facility] Allergy Allergy Problem 2022-02-10 Me moria status to status to 07:07:04 l other other Mohan drugs, drugs, medicament medicament s and s and biological biological substances substances status status 02/10/2022 [facility] Allergy Allergy Problem 2022-02-10 Me moria status to status to 07:07:04 l analgesic analgesic Herm gabriel agent agent status status 02/10/2022 [facility] Acquired Acquired Problem 2022-02-10 Memoria absence of absence of 07:07:04 l other other [place] specified specified parts of parts of digestive digestive tract tract 02/10/2022 [facility] Presence Presence Problem 2022-02-10 Memoria of of 07:07:04 l unspecifie unspecifie He rmann d d artificial artificial knee joint knee joint 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 02/10/2022 [facility] Family Problem 2022-02-10 Mj chadwick history of history of 07:07:04 l other other [place] diseases diseases of the of the digestive digestive system system 02/10/2022 [facility] Family Problem 2022-02-10 Mj chadwick history of history of 07:07:04 l diseases diseases Salvatore n of the of the blood and blood and blood-form blood-form ing organs ing organs and and certain certain disorders disorders involving involving the immune the immune mechanism mechanism 02/10/2022 [facility] Family Problem 2022-02-10 Mj chadwick history of history of 07:07:04 l stroke stroke [place] 02/10/2022 [facility] Family Problem 2022-02-10 Mem oria history of history of 07:07:04 l malignant malignant Herm gabriel neoplasm neoplasm of breast of breast 02/10/2022 [facility] Unemployco Unemploym Problem 2022-02-10 Memoria nt, ent, 07:07:04 l unspecifie unspecifie He rmann d d 02/10/2022 Mallie Degenerati Degenerat Problem Resolve 2022-02-10 Memoria on of ion of d 07:07:04 l lumbar lumbar Mohan interverte interverte bral disc bral disc (disorder) (disorder) Resolved Problem 02/10/[address] [facility], [place],[facility] ANNE MARIE [place], ANNE MARIE [place],[facility] ANNE MARIE Levine Kidney Kidney Problem Resolve 2022-02-10 Mem oria disease disease d 07:07:04 l (disorder) (disorder) He rmann Resolved Problem 02/10/[address] [facility], [place],[facility] ANNE MARIE [place], ANNE MARIE [place],[facility] ANNE MARIE Levine Rheumatoid Rheumatoi Problem Resolve 2022-02-10 Memoria arthritis d d 07:07:04 l (disorder) arthritis Her bailey (disorder) Resolved Problem 02/10/[address] [facility], [place],[facility] ANNE MARIE [place], ANNE MARIE [place],[facility] ANNE MARIE Levine Impaired Impaired Problem Active 2022-02-10 Memoria skin skin 07:07:04 l integrity integrity Herm gabriel (finding) (finding) Active Problem 02/10/[address] [facility], [place],[facility] ANNE MARIE [place]IE Levien Impaired Impaired Problem Active 2022-08-24 Memoria mobility mobility 22:55:22 l (finding) (finding) Herm gabriel Active Problem 08/24/[address] [facility], [place],[facility] ANNE MARIE [place], [facility] Pain Problem Active 2022-08-24 Memor ia (finding) (finding) 22:55:22 l Active Mohan Problem 08/24/[address] [facility]NE MARIE [place], [facility] Depressive Depressiv Problem Resolve 2022-02-10 Memoria disorder e disorder d 07:07:04 l (disorder) (disorder) He rmann Resolved Problem 02/10/[address] [facility] ANNE MARIE [place], OPID Alfonzo Johnston Hypertensi Hypertens Problem Active 2022-08-24 Memoria ve osmany 22:55:22 l disorder, disorder, Herm gabriel systemic systemic arterial arterial (disorder) (disorder) Active Problem 08/24/[address] [facility], [place],Alfonzo ANNE MARIE [place], ANNE MARIE [place],[facility] ANNE MARIE Levine,M [facility] Hypothyroi Hypothyro Problem Resolve 2022-02-10 Memoria dism idism d 07:07:04 l (disorder) (disorder) He rmann Resolved Problem 02/10/[address] [facility], [place],[facility] ANNE MARIE [place], ANNE MARIE [place],[facility] ANNE MARIE Levine Hematochez Hematoche Problem Resolve 2022-02-10 2022-02-10 Memoria ia britney d 08-08 07:07:04 07:07:04 l (finding) (finding) 00:00: Herm gabriel Resolved 00 08/08/2011 Problem 02/10/[address] [facility], Alfonzo Johnston ANNE MARIE [place], ANNE MARIE [place],[facility] ANNE MARIE Levine History of Past Illness Condition Condition Condition Status Onset Resolution Last Treating Co mments Source Name Details Category Date Date Treatment Clinician Date Chronic Chronic Diagnosis 2021-112022-08-24 2022-08-24 Memoria pain pain 0-12 22:55:22 22:55:22 l (finding) (finding) 00:14: Herm gabriel 08/20/2022 00 Diagnosis 08/24/2022 [facility] Hypoglycem Hypoglyce Diagnosis 2021-112022-08-24 2022-08-24 Memoria ia katty 0-12 22:55:22 22:55:22 l (disorder) (disorder) 00:14: He rmann 08/20/2022 00 Diagnosis 08/24/2022 [facility] Anxiety Anxiety Diagnosis 2021-112022-08-24 2022-08-24 Memoria disorder disorder 0-12 22:55:22 22:55:22 l (disorder) (disorder) 00:12: He rmann 08/20/2022 00 Diagnosis 08/24/2022 [facility] Essential Essential Diagnosis 2021-112022-08-24 2022-08-24 Memoria hypertensi hypertensi 0-12 22:55:22 22:55:22 l on on 00:12: Mohan (disorder) (disorder) 00 08/20/2022 Diagnosis 08/24/2022 [facility] Weakness Weakness Problem 2022-02-10 2022-02-10 Memoria 02/04/202202-04 07:07:04 07:07:04 l 01:09: Salvatore mazariegos [address] Opioid Opioid Problem 2022-02-10 2022-02-10 Memoria abuse, abuse, 02-04 07:07:04 07:07:04 l uncomplica uncomplica 01:09: He cathryn jaimes theodore 00 02/04/2022 2 [facility] Other Other Problem 2022-02-2022-02-10 M emoria visual visual 02-04 07:07:04 07:07:04 l disturbanc disturbanc 01:09: He cathryn es es 00 02/04/2022 2 [facility] Acute Acute Problem 2020-04-27 2020-04-27 M emoria kidney kidney 04-25 21:05:58 21:05:58 l failure, failure, 17:00: Salvatore mazariegos unspecifie unspecifie 00 d d 04/25/2020 0 [facility] Dehydratio Dehydrati Problem 2020-04-27 2020-04-27 Memoria n on 04-25 21:05:58 21:05:58 l 04/25/2020 17:00: Salvatore mazariegos 04/27/2020 00 [facility] Allergies, Adverse Reactions, Alerts Allergy Allergy Status Severity Reaction(s) Onset Inactive Treating Comm ents Source Name Type Date Date Clinician Nsaids Allergy Active [place] to 12-30 Health substanc 00:00: e 00 MORPHINE DRUG Active Unknown-Cmnt Un christie INGREDI 07-21 ity of 00:00: [place] 00 Medical Branch HYDROMOR DRUG Active Unknown-Cmnt Un christie PHONE INGREDI 07-21 ity of 00:00: [place] 00 Medical Branch CODEINE DRUG Active Unknown-Cmnt Uni vers INGREDI 07-21 ity of 00:00: [place] 00 Medical Branch Codeine Propensi Active Unknown - Patient Uni vers ty to See comments 07-21 has had ity of adverse 00:00: multiple [place] reaction 00 OVERDOSES Medic al s Branch Hydromor Propensi Active Unknown - Patient Un christie phone ty to See comments 07-21 has had ity of adverse 00:00: multiple [place] reaction 00 OVERDOSES Medic al s Branch Morphine Propensi Active Unknown - Patient Un christie ty to See comments 07-21 has had ity of adverse 00:00: multiple [place] reaction 00 OVERDOSES Medic al s Branch Nsaids Propensi Active Other (See Swelling Me thodi (Non-Lasha ty to Comments) 2 / Hx - [facility] adverse 00:00: CKD Hospita Anti-Inf reaction 00 l lammator s to y Drug) drug Gabapent Propensi Active Other (See Swelling Methodi [...] INGREDI 2-24 ity of FUMARATE 00:00: [place] 00 Medical Branch BUPROPIO DRUG Active Swelling Univer s N HCL INGREDI 2-24 ity of 00:00: [place] 00 Medical Branch Quetiapi Allergy Active Swelling Other [place] ne to 2-24 reaction( Health substanc 00:00: s): EDEMA e 00 Wellbutr Wellbutr Active Memori a in in l [place] BuSpar BuSpar Active Memoria l [place] NSAIDs NSAIDs Active Memoria l [place] Cymbalta Cymbalta Active Memori a l Mohan Social History Social Habit Start Date Stop Date Quantity Comments Source History of tobacco Cigarette Smoker [facility] use [place] [facility] History [facility] University o f Alcohol Frequency [facility] edical Branch History [facility] University o f Alcohol Std Drinks [place] [facility] History [facility] University o f Alcohol Binge [place] Medic al [facility] Exposure to 2022-12-20 2022-12-30 Not sure [facility] SARS-CoV-2 (event) 00:00:00 11:10:00 Tobacco use and 2022-07-28 2022-07-28 User of [facility] exposure 00:00:00 00:00:00 smokeless tobacco Alcohol intake 2020-12-14 2020-12-14 Ex-drinker Sabianist 00:00:00 00:00:00 (finding) Hospital Cigarettes smoked 2020-12-11 2020-12-[address] current (pack per 00:00:00 00:00:00 Hospita l day) - Reported Cigarette 2020-12-11 2020-12-11 Sabianist pack-years 00:00:00 00:00:00 Hospital Social History 2019-08-03 2019-08-03 [facility] 16:34:49 16:34:49 Alcohol Comment 2015-12-25 2015-12-25 Social Drinker Unive rsity of 00:00:00 00:00:00 [facility] Sex Ass[birth year] At [birth year] LAYLA Wilkes 00:00:00 00:00:00 [facility] Smoking Status Start Date Stop Date Source Tobacco smoking consumption [facility] ealt unknown Smokes tobacco daily 2022-11-28 00:00:00 Univers ity of [facility] Tobacco smoking status [facility] Occasional tobacco smoker 2022-07-28 00:00:00 [facility] Light tobacco smoker 2020-12-11 00:00:00 [facility] Medications Ordered Filled Start Stop Current Ordering Indication Dosage Frequency Signature Comments Components Source Medication Medication Date Date Medication? Clinician (SIG) Name Name traZODONE Yes 50mg Take 50 mg Un christie (DESYREL) 1-20 by mouth ity of 50 mg 09:40: at [place] tablet 21 bedtime. Medical Branch DOCUSATE Yes 1{tbl} Take 1 Tab U nivers CALCIUM 1-20 by mouth ity of (STOOL 09:40: as needed [place] SOFTENER 21 for Medical ORAL) Constipati Branch on. traZODONE Yes 50mg Take 50 mg Un christie (DESYREL) 1-20 by mouth ity of 50 mg 09:40: at [place] tablet 21 bedtime. Medical Branch DOCUSATE Yes 1{tbl} Take 1 Tab U nivers CALCIUM 1-20 by mouth ity of (STOOL 09:40: as needed [place] SOFTENER 21 for Medical ORAL) Constipati Branch on. traZODONE Yes 50mg Take 50 mg Un christie (DESYREL) 1-20 by mouth ity of 50 mg 09:40: at [place] tablet 21 bedtime. Medical Branch DOCUSATE Yes 1{tbl} Take 1 Tab U nivers CALCIUM 1-20 by mouth ity of (STOOL 09:40: as needed [place] SOFTENER 21 for Medical ORAL) Constipati Branch on. traZODONE Yes 50mg Take 50 mg Un christie (DESYREL) 1-20 by mouth ity of 50 mg 09:40: at [place] tablet 21 bedtime. Medical Branch DOCUSATE Yes 1{tbl} Take 1 Tab U nivers CALCIUM 1-20 by mouth ity of (STOOL 09:40: as needed [place] SOFTENER 21 for Medical ORAL) Constipati Branch on. traZODONE 2022-0 Yes 50mg Take 50 mg Un christie (DESYREL) 1-20 by mouth ity of 50 mg 09:40: at [place] tablet 21 bedtime. Medical Branch DOCUSATE Yes 1{tbl} Take 1 Tab U nivers CALCIUM 1-20 by mouth ity of (STOOL 09:40: as needed [place] SOFTENER 21 for Medical ORAL) Constipati Branch on. traZODONE 2022-0 Yes 50mg Take 50 mg Un christie (DESYREL) 1-20 by mouth ity of 50 mg 09:40: at [place] tablet 21 bedtime. Medical Branch DOCUSATE Yes 1{tbl} Take 1 Tab U nivers CALCIUM 1-20 by mouth ity of (STOOL 09:40: as needed [place] SOFTENER 21 for Medical ORAL) Constipati Branch on. traZODONE 2022-0 Yes 50mg Take 50 mg Un christie (DESYREL) 1-20 by mouth ity of 50 mg 09:40: at [place] tablet 21 bedtime. Medical Branch DOCUSATE Yes 1{tbl} Take 1 Tab U nivers CALCIUM 1-20 by mouth ity of (STOOL 09:40: as needed [place] SOFTENER 21 for Medical ORAL) Constipati Branch on. traZODONE 2022-0 Yes 50mg Take 50 mg Un christie (DESYREL) 1-20 by mouth ity of 50 mg 09:40: at [place] tablet 21 bedtime. Medical Branch DOCUSATE Yes 1{tbl} Take 1 Tab U nivers CALCIUM 1-20 by mouth ity of (STOOL 09:40: as needed [place] SOFTENER 21 for Medical ORAL) Constipati Branch on. furosemide 2022-0 Yes 20mg Take 20 mg U nivers 20 mg 1-20 by mouth ity of tablet 09:39: every [place] [id number] morning Medical and Branch evening. pantoprazol 2022-0 Yes 40mg Take 40 mg Univers e 40 mg EC 1-20 by mouth ity o f tablet 09:39: daily. Medical Branch citalopram 2022-0 Yes 20mg Take 20 mg U nivers (CELEXA) 20 1-20 by mouth ity of mg tablet 09:39: daily. [place] [address] Medical Branch rOPINIRole 2022-0 Yes 2mg Take 2 mg Un [facility] (REQUIP) 2 1-20 by mouth ity o f mg tablet 09:39: at [place] [address] bedtime. Medical Branch tiZANidine 2022-0 Yes 2mg Take 2 mg Un [facility] (ZANAFLEX) 1-20 by mouth 2 ity of 2 mg 09:39: (two) [place] capsule 23 times Medical daily as Branch needed for Muscle Spasms. aspirin 81 2022-0 Yes 81mg Take 81 mg U nivers mg EC 1-20 by mouth ity of tablet 09:39: daily. [place] [address] Medical Branch amLODIPine 2022-0 Yes 5mg Take 5 mg Un christie 5 mg tablet 1-20 by mouth ity of 09:39: daily. [place] [address] Medical Branch magnesium 2022-0 Yes Take by Unive rs oxide 400 1-20 mouth. ity of mg 09:39: [place] magnesium Medical [place] [facility] biotin 1 mg 2022-0 Yes Take by Uni vers Cap 1-20 mouth. ity of 09:39: [place] [address] Medical Branch furosemide 2022-0 Yes 20mg Take 20 mg U nivers 20 mg 1-20 by mouth ity of tablet 09:39: every [place] [address] morning Medical and Branch evening. pantoprazol 2022-0 Yes 40mg Take 40 mg Univers e 40 mg EC 1-20 by mouth ity o f tablet 09:39: daily. [place] [address] Medical Branch citalopram 2022-0 Yes 20mg Take 20 mg U nivers (CELEXA) 20 1-20 by mouth ity of mg tablet 09:39: daily. [place] [address] Medical Branch rOPINIRole 2022-0 Yes 2mg Take 2 mg Un [facility] (REQUIP) 2 1-20 by mouth ity o f mg tablet 09:39: at [place] [address] bedtime. Medical Branch tiZANidine 2022-0 Yes 2mg Take 2 mg Un [facility] (ZANAFLEX) 1-20 by mouth 2 ity of 2 mg 09:39: (two) [place] capsule 23 times Medical daily as Branch needed for Muscle Spasms. aspirin 81 2022-0 Yes 81mg Take 81 mg U nivers mg EC 1-20 by mouth ity of tablet 09:39: daily. [place] [address] Medical Branch amLODIPine 2022-0 Yes 5mg Take 5 mg Un [facility] 5 mg tablet 1-20 by mouth ity of 09:39: daily. [place] [address] Medical Branch magnesium 2022-0 Yes Take by Unive rs oxide 400 1-20 mouth. ity of mg 09:39: [place] [address] Medical Tab Branch biotin 1 mg 2022-0 Yes Take by Uni vers Cap 1-20 mouth. ity of 09:39: [address] Branch furosemide 2022-0 Yes 20mg Take 20 mg U nivers 20 mg 1-20 by mouth ity of tablet 09:39: every [place] [address] morning Medical and Branch evening. pantoprazol 2022-0 Yes 40mg Take 40 mg Univers e 40 mg EC 1-20 by mouth ity o f tablet 09:39: daily. [address] Branch citalopram 2022-0 Yes 20mg Take 20 mg U nivers (CELEXA) 20 1-20 by mouth ity of mg tablet 09:39: daily. [address] rOPINIRole 2022-0 Yes 2mg Take 2 mg Un [facility] (REQUIP) 2 1-20 by mouth ity o f mg tablet 09:39: at [place] [address] bedtime. Medical Branch tiZANidine 0 Yes 2mg Take 2 mg Un [facility] (ZANAFLEX) 1-20 by mouth 2 ity of 2 mg 09:39: (two) [facility] 23 times Medical daily as Branch needed for Muscle Spasms. aspirin 81 2022-0 Yes 81mg Take 81 mg U nivers mg EC 1-20 by mouth ity of tablet 09:39: daily. [address] amLODIPine 2022-0 Yes 5mg Take 5 mg Un christ[facility] 5 mg tablet 1-20 by mouth ity of 09:39: daily. [place] [address] Medical Branch magnesium 2022-0 Yes Take by Unive rs oxide 400 1-20 mouth. ity of mg 09:39: [place] [address] Medical Tab Branch biotin 1 mg 2022-0 Yes Take by Uni vers Cap 1-20 mouth. ity of 09:39: [address] Branch furosemide 2022-0 Yes 20mg Take 20 mg U nivers 20 mg 1-20 by mouth ity of tablet 09:39: every [place] [address] morning Medical and Branch evening. pantoprazol 2022-0 Yes 40mg Take 40 mg Univers e 40 mg EC 1-20 by mouth ity o f tablet 09:39: daily. [place] [address] Medical Branch citalopram 2022-0 Yes 20mg Take 20 mg U nivers (CELEXA) 20 1-20 by mouth ity of mg tablet 09:39: daily. [place] [address] Medical Branch rOPINIRole 2022-0 Yes 2mg Take 2 mg [facility] (REQUIP) 2 1-20 by mouth ity o f mg tablet 09:39: at [place] [address] bedtime. Medical Branch tiZANidine 2022-0 Yes 2mg Take 2 mg Un [facility] (ZANAFLEX) 1-20 by mouth 2 ity of 2 mg 09:39: (two) [place] capsule 23 times Medical daily as Branch needed for Muscle Spasms. aspirin 81 2022-0 Yes 81mg Take 81 mg U nivers mg EC 1-20 by mouth ity of tablet 09:39: daily. [place] [address] Medical Branch amLODIPine 2022-0 Yes 5mg Take 5 mg Un [facility] 5 mg tablet 1-20 by mouth ity of 09:39: daily. [place] [address] Medical Branch magnesium 2022-0 Yes Take by Unive rs oxide 400 1-20 mouth. ity of mg 09:39: [place] magnesium Medical Tab Branch biotin 1 mg 0 Yes Take by Uni vers Cap 1-20 mouth. ity of 09:39: [place] [address] Medical Branch furosemide 2022-0 Yes 20mg Take 20 mg U nivers 20 mg 1-20 by mouth ity of tablet 09:39: every [place] [address] morning Medical and Branch evening. pantoprazol 2022-0 Yes 40mg Take 40 mg Univers e 40 mg EC 1-20 by mouth ity o f tablet 09:39: daily. [place] [address] Medical Branch citalopram 2022-0 Yes 20mg Take 20 mg U nivers (CELEXA) 20 1-20 by mouth ity of mg tablet 09:39: daily. [place] [address] Medical Branch rOPINIRole 2022-0 Yes 2mg Take 2 mg [facility] (REQUIP) 2 1-20 by mouth ity o f mg tablet 09:39: at [place] [address] bedtime. Medical Branch tiZANidine 2022-0 Yes 2mg Take 2 mg Un [facility] (ZANAFLEX) 1-20 by mouth 2 ity of 2 mg 09:39: (two) [place] capsule 23 times Medical daily as Branch needed for Muscle Spasms. aspirin 81 2022-0 Yes 81mg Take 81 mg U nivers mg EC 1-20 by mouth ity of tablet 09:39: daily. [place] [address] Medical Branch amLODIPine 2022-0 Yes 5mg Take 5 mg Un [facility]ie 5 mg tablet 1-20 by mouth ity of 09:39: daily. [place] [address] Medical Branch magnesium 2022-0 Yes Take by Unive rs oxide 400 1-20 mouth. ity of mg 09:39: [place] [address] Medical Tab Branch biotin 1 mg 2022-0 Yes Take by Uni vers Cap 1-20 mouth. ity of 09:39: [place] [address] Medical Branch furosemide 2022-0 Yes 20mg Take 20 mg U nivers 20 mg 1-20 by mouth ity of tablet 09:39: every [place] [address] morning Medical and Branch evening. pantoprazol 0 Yes 40mg Take 40 mg Univers e 40 mg EC 1-20 by mouth ity o f tablet 09:39: daily. [place] [address] Medical Branch citalopram 2022-0 Yes 20mg Take 20 mg U nivers (CELEXA) 20 1-20 by mouth ity of mg tablet 09:39: daily. [place] [address] Medical Branch rOPINIRole 2022-0 Yes 2mg Take 2 mg Un [facility] (REQUIP) 2 1-20 by mouth ity o f mg tablet 09:39: at [place] [address] bedtime. Medical Branch tiZANidine 0 Yes 2mg Take 2 mg Un [facility]ie (ZANAFLEX) 1-20 by mouth 2 ity of 2 mg 09:39: (two) [place] capsule 23 times Medical daily as Branch needed for Muscle Spasms. aspirin 81 2022-0 Yes 81mg Take 81 mg U nivers mg EC 1-20 by mouth ity of tablet 09:39: daily. [place] [address] Medical Branch amLODIPine 2022-0 Yes 5mg Take 5 mg Un [facility] 5 mg tablet 1-20 by mouth ity of 09:39: daily. [place] [address] Medical Branch magnesium 2022-0 Yes Take by Unive rs oxide 400 1-20 mouth. ity of mg 09:39: [place] [address] Medical Tab Branch biotin 1 mg 2022-0 Yes Take by Uni vers Cap 1-20 mouth. ity of 09:39: [place] [address] Medical Branch furosemide 2022-0 Yes 20mg Take 20 mg U nivers 20 mg 1-20 by mouth ity of tablet 09:39: every [place] [address] morning Medical and Branch evening. pantoprazol 2022-0 Yes 40mg Take 40 mg Univers e 40 mg EC 1-20 by mouth ity o f tablet 09:39: daily. [place] [address] Medical Branch citalopram 2022-0 Yes 20mg Take 20 mg U nivers (CELEXA) 20 1-20 by mouth ity of mg tablet 09:39: daily. [place] [address] Medical Branch rOPINIRole 2022-0 Yes 2mg Take 2 mg Un [facility] (REQUIP) 2 1-20 by mouth ity o f mg tablet 09:39: at [place] [address] bedtime. Medical Branch tiZANidine 2022-0 Yes 2mg Take 2 mg Un [facility] (ZANAFLEX) 1-20 by mouth 2 ity of 2 mg 09:39: (two) [facility] 23 times Medical daily as Branch needed for Muscle Spasms. aspirin 81 2022-0 Yes 81mg Take 81 mg U nivers mg EC 1-20 by mouth ity of tablet 09:39: daily. [place] [address] Medical Branch amLODIPine 2022-0 Yes 5mg Take 5 mg Un christie 5 mg tablet 1-20 by mouth ity of 09:39: daily. [place] [address] Medical Branch magnesium 2022-0 Yes Take by Unive rs oxide 400 1-20 mouth. ity of mg 09:39: [place] [address] Medical Tab Branch biotin 1 mg 2022-0 Yes Take by Uni vers Cap 1-20 mouth. ity of 09:39: [place] [address] Medical Branch furosemide 2022-0 Yes 20mg Take 20 mg U nivers 20 mg 1-20 by mouth ity of tablet 09:39: every [place] [address] morning Medical and Branch evening. pantoprazol 2022-0 Yes 40mg Take 40 mg Univers e 40 mg EC 1-20 by mouth ity o f tablet 09:39: daily. [place] [address] Medical Branch citalopram 2022-0 Yes 20mg Take 20 mg U nivers (CELEXA) 20 1-20 by mouth ity of mg tablet 09:39: daily. [address] rOPINIRole 2022-0 Yes 2mg Take 2 mg Un christie (REQUIP) 2 1-20 by mouth ity o f mg tablet 09:39: at [place] [address] bedtime. Medical Branch tiZANidine Yes 2mg Take 2 mg Un christie (ZANAFLEX) 1-20 by mouth 2 ity of 2 mg 09:39: (two) [facility] 23 times Medical daily as Branch needed for Muscle Spasms. aspirin 81 Yes 81mg Take 81 mg U nivers mg EC 1-20 by mouth ity of tablet 09:39: daily. [place] [address] Medical Branch amLODIPine 0 Yes 5mg Take 5 mg Un christie 5 mg tablet 1-20 by mouth ity of 09:39: daily. [place] [address] Medical Branch magnesium Yes Take by Unive rs oxide 400 1-20 mouth. ity of mg 09:39: [place] [address] Medical Tab Branch biotin 1 mg Yes Take by Uni vers Cap 1-20 mouth. ity of 09:39: [place] [address] Medical Branch varenicline Yes [facility] (Chantix) 1 1-17 Health MG tablet 00:00: 00 levETIRAcet 2021-11- No [id number] 500mg Q.5D Take 1 [facility] am (Keppra) 1-28 11-29 tablet Healt h 500 MG 00:00: 05:59 (500 mg tablet 00 :00 total) by mouth in the morning and 1 tablet (500 mg total) in the evening. levETIRAcet 2021-11- No [id number] 750mg Q.5D Take 1 [facility] am (Keppra) 0-19 10-20 tablet Healt h 750 MG 00:00: 04:59 (750 mg tablet 00 :00 total) by mouth in the morning and 1 tablet (750 mg total) in the evening. clonazePAM 2021-11 Yes 1 mg = 1 Mem oria 1 mg oral 0-12 tab, PO, l tablet 00:11: TID, 0 [place] 00 Refill(s) tizanidine 2021-11 Yes 4 mg = 1 Mem oria 4 mg oral 0-12 tab, PO, l tablet 00:11: BID, 0 [place]an 00 Refill(s) atorvastati 2021-11 Yes 20 mg = 1 M emoria n 20 mg 0-12 tab, PO, l oral tablet 00:11: Daily, 0 He rm 00 Refill(s) buPROPion 2021-11 Yes 300 mg = 1 Me moria 300 mg/24 0-12 tab, PO, l hours (XL) 00:11: Daily, 0 Her [place] oral 00 Refill(s) tablet, extended release pantoprazol 2021-11 Yes 40 mg = 1 M emoria e 40 mg 0-12 tab, PO, l oral 00:11: Daily, 0 [place] enteric 00 Refill(s) coated tablet rOPINIRole 2021-11 Yes 2 mg = 1 Mem oria 2 mg oral 0-12 tab, PO, l tablet 00:11: Daily, 0 [place] 00 Refill(s) Nucynta 2021-11 Yes 100 mg, Memoria 0-12 PO, 0 l 00:06: Refill(s) [place] 00 levETIRAcet 2022- No [id number] 500mg Q.5D Take 1 [facility] am (Keppra) 07-28 tablet Healt h 500 MG 00:00: 04:59 (500 mg tablet 00 :00 total) by mouth in the morning and 1 tablet (500 mg total) in the evening. levETIRAcet 2022- No [id number] 500mg Q.5D Take 1 [facility] am (Keppra) 07-28 tablet Healt h 500 MG 00:00: 04:59 (500 mg tablet 00 :00 total) by mouth in the morning and 1 tablet (500 mg total) in the evening. levETIRAcet 2021- No [id number] 500mg Q.5D Take 1 [facility] am (Keppra) 07-28 tablet Healt h 500 MG 00:00: 00:00 (500 mg tablet 00 :00 total) by mouth in the morning and 1 tablet (500 mg total) in the evening. tiZANidine 0 Yes [facility] (Zanaflex) 07-23 Health 4 MG tablet 00:00: 00 tiZANidine 0 Yes [facility] (Zanaflex) 07-23 Health 4 MG tablet 00:00: 00 tiZANidine 2021-0 Yes [facility] (Zanaflex) 07-23 Health 4 MG tablet 00:00: 00 tiZANidine 2021-0 Yes [facility] (Zanaflex) 07-23 Health 4 MG tablet 00:00: 00 ketorolac 2021- No 10mg 10 mg, Unive rs (TORADOL) 07-21 Oral, ity of tablet 10 23:30: 23:06 [place]CE, 1 [place] :[place] dose, [facility] 07/21/22 at 1830, Routine diazePAM 2021- No 2.5mg 2.5 mg, Univ ers (VALIUM) 07-21 Oral, ity of tablet 2.5 21:15: 21:46 ONCE, 1 [place] mg 00 :00 dose, [facility] 07/21/22 at 1615, ALANA levothyroxi Yes [facility] ne 07-17 Health (Synthroid, 00:00: Levoxyl) 50 00 MCG tablet levothyroxi Yes [facility] ne 07-17 Health (Synthroid, 00:00: Levoxyl) 50 00 MCG tablet levothyroxi 0 Yes [facility] ne 07-17 Health (Synthroid, 00:00: Levoxyl) 50 00 MCG tablet levothyroxi 0 Yes [facility] ne 07-17 Health (Synthroid, 00:00: Levoxyl) 50 00 MCG tablet clonazePAM 0 Yes [facility] (KlonoPIN) 07-10 Health 1 MG tablet 00:00: 00 clonazePAM 2021-0 Yes [facility] (KlonoPIN) 07-10 Health 1 MG tablet 00:00: 00 clonazePAM 2021-0 Yes [facility] (KlonoPIN) 07-10 [facility] 1 MG tablet 00:00: 00 clonazePAM 2021-0 Yes [facility] (KlonoPIN) 07-10 Health 1 MG tablet 00:00: 00 traZODone 2022- No 1{tbl} Take 1 [facility] (Desyrel) 07-10 tablet by [facility] 300 MG 00:00: 04:59 mouth tablet 00 :00 every night. traZODone 2022- No 1{tbl} Take 1 [facility] (Desyrel) 07-10 tablet by [facility] 300 MG 00:00: 04:59 mouth tablet 00 :00 every night. traZODone 2021-2022- No 1{tbl} Take 1 [facility] (Desyrel) 07-10 tablet by [facility] th 300 MG 00:00: 04:59 mouth tablet 00 :00 every night. traZODone 0 2022- No 1{tbl} Take 1 [facility] (Desyrel) 07-10 tablet by [facility] th 300 MG 00:00: 04:59 mouth tablet 00 :00 every night. Nucynta 100 2021-0 Yes [facility] MG tablet 30 Health 00:00: 00 Nucynta 100 2021-0 Yes Q.25D 4 (four) U T MG tablet 8-30 times a Health 00:00: day. 00 losartan 2021-0 Yes [facility] (Cozaar) 25 8-26 Health MG tablet 00:00: 00 losartan 2021-0 Yes [facility] (Cozaar) 25 8-26 Health MG tablet 00:00: 00 losartan 2021-0 2021- No [facility] (Cozaar) 25 - 10-19 Health MG tablet 00:00: 00:00 00 :00 atorvastati 2021-0 Yes UT n (Lipitor) 808 Health 20 MG 00:00: tablet 00 buPROPion 2021-0 Yes UT XL 8-08 Health (Wellbutrin 00:00: XL) 300 MG 00 24 hr tablet pantoprazol 2021-0 Yes UT e 808 Health (ProtoNix) 00:00: 40 MG EC 00 tablet atorvastati 2021-0 Yes UT n (Lipitor) 808 Health 20 MG 00:00: tablet 00 buPROPion 2021-0 Yes [facility] XL 8-08 Health (Wellbutrin 00:00: XL) 300 MG 00 24 hr tablet pantoprazol 2021-0 Yes UT e 8-08 Health (ProtoNix) 00:00: 40 MG EC 00 tablet atorvastati 2021-0 Yes UT n (Lipitor) 808 Health 20 MG 00:00: tablet 00 buPROPion 2021-0 Yes [facility] XL 8-08 Health (Wellbutrin 00:00: XL) 300 MG 00 24 hr tablet pantoprazol 2021-0 Yes UT e 8-08 Health (ProtoNix) 00:00: 40 MG EC 00 tablet atorvastati 2021-0 Yes UT n (Lipitor) 808 Health 20 MG 00:00: tablet 00 buPROPion 2-0 Yes UT XL 8-08 Health (Wellbutrin 00:00: XL) 300 MG 00 24 hr tablet pantoprazol 2021-0 Yes UT e 8-08 Health (ProtoNix) 00:00: 40 MG EC 00 tablet potassium 2021-0 2022- No 1{tbl} QD Take 1 UT chloride CR 7-22 -23 tablet by He alth (Klor-Con) 00:00: 04:59 mouth 1 10 MEQ ER 00 :00 (one) time tablet each day. potassium 2021-0 2022- No 1{tbl} QD Take 1 [facility] chloride CR 7-22 07-23 tablet by He alth (Klor-Con) 00:00: 04:59 mouth 1 10 MEQ ER 00 :00 (one) time tablet each day. potassium 2021-0 2021- No 1{tbl} QD Take 1 UT chloride CR 7-22 10-19 tablet by He alth (Klor-Con) 00:00: 00:00 mouth 1 10 MEQ ER 00 :00 (one) time tablet each day. rOPINIRole 2-0 Yes [facility] (Requip) 2 7-21 Health MG tablet 00:00: 00 rOPINIRole 2022-0 Yes [facility] (Requip) 2 7-21 Health MG tablet 00:00: 00 rOPINIRole 2022-0 Yes [facility] (Requip) 2 7-21 Health MG tablet 00:00: 00 rOPINIRole 2022-0 Yes [facility] (Requip) 2 7-21 Health MG tablet 00:00: 00 promethazin 2-0 Yes UT e 7-18 Health (Phenergan) 00:00: 25 MG 00 tablet promethazin 2-0 Yes UT e 7-18 Health (Phenergan) 00:00: 25 MG 00 tablet promethazin 2022-0 Yes UT e 7-18 Health (Phenergan) 00:00: 25 MG 00 tablet promethazin 2022-0 Yes UT e 7-18 Health (Phenergan) 00:00: 25 MG 00 tablet furosemide 2-0 Yes UT (Lasix) 40 6-30 Health MG tablet 00:00: 00 furosemide 2-0 Yes UT (Lasix) 40 6-30 Health MG tablet 00:00: 00 furosemide 2-0 Yes UT (Lasix) 40 6-30 Health MG tablet 00:00: 00 furosemide 2022-0 Yes UT (Lasix) 40 6-30 Health MG tablet 00:00: 00 spironolact 2022-0 Yes UT one 6-17 Health (Aldactone) 00:00: 25 MG 00 tablet spironolact 2022-0 Yes UT one 6-17 Health (Aldactone) 00:00: 25 MG 00 tablet spironolact 2-0 Yes UT one 6-17 Health (Aldactone) 00:00: 25 MG 00 tablet spironolact 2022-0 Yes UT one 6-17 Health (Aldactone) 00:00: 25 MG 00 tablet losartan 2-0 Yes UT (Cozaar) 25 5-26 Health MG tablet 00:00: 00 losartan 2-0 Yes [facility] (Cozaar) 25 5-26 Health MG tablet 00:00: 00 losartan 2022-0 2022- No [facility] (Cozaar) 25 5-26 10-19 Health MG tablet 00:00: 00:00 00 :00 lubiproston 2022-0 Yes UT e (Amitiza) 5-16 Health 24 MCG 00:00: capsule 00 lubiproston 2-0 Yes UT e (Amitiza) 5-16 Health 24 MCG 00:00: capsule 00 lubiproston 2022-0 Yes UT e (Amitiza) 5-16 Health 24 MCG 00:00: capsule 00 lubiproston 2022-0 Yes UT e (Amitiza) 5-16 Health 24 MCG 00:00: capsule 00 hydrOXYzine 2-0 Yes 25mg Q.5D Take 25 mg UT pamoate 5-07 by mouth 2 Health (Vistaril) 00:00: (two) 25 MG 00 times a capsule day if needed. hydrOXYzine 2-0 Yes 25mg Q.5D Take 25 mg [facility] pamoate 5-07 by mouth 2 Health (Vistaril) 00:00: (two) 25 MG 00 times a capsule day if needed. hydrOXYzine 2-0 Yes 25mg Q.5D Take 25 mg [facility] pamoate 5-07 by mouth 2 Health (Vistaril) 00:00: (two) 25 MG 00 times a capsule day if needed. hydrOXYzine 2-0 Yes 25mg Q.5D Take 25 mg [facility] pamoate 5-07 by mouth 2 Health (Vistaril) 00:00: (two) 25 MG 00 times a capsule day if needed. Tapentadol Yes Univers (NUCYNTA) 4-12 ity of 100 mg Tab 00:00: [facility] Tapentadol Yes Univers (NUCYNTA) 4-12 ity of 100 mg Tab 00:00: [facility] Tapentadol 0 Yes Univers (NUCYNTA) 4-12 ity of 100 mg Tab 00:00: [facility] Tapentadol 0 Yes Univers (NUCYNTA) 4-12 ity of 100 mg Tab 00:00: [facility] Tapentadol Yes Univers (NUCYNTA) 4-12 ity of 100 mg Tab 00:00: [facility] Tapentadol 0 Yes Univers (NUCYNTA) 4-12 ity of 100 mg Tab 00:00: [facility] Tapentadol 0 Yes Univers (NUCYNTA) 4-12 ity of 100 mg Tab 00:00: [facility] Tapentadol 0 Yes Univers (NUCYNTA) 4-12 ity of 100 mg Tab 00:00: [facility] dicyclomine Yes [facility] (Bentyl) 20 4-11 Health MG tablet 00:00: 00 dicyclomine 0 Yes [facility] (Bentyl) 20 4-11 Health MG tablet 00:00: 00 dicyclomine 2021-0 2021- No [facility] (Bentyl) 20 4-11 10-19 Health MG tablet 00:00: 00:00 00 :00 Acetaminoph No Notes: Do M emoria en 02-03 not exceed l 16:40: 4 gm/day. (Same as: Tylenol) Benadryl No Notes: Memoria 3-28 (Same as: l 16:40: Benadryl) Reglan No Notes: Memoria 3-28 (Same as: l 16:40: Reglan) Sodium No 1,000 mL, Memori a Chloride 3- 1000 l 0.9% 16:40: ml/hr, Mohan (Bolus) IV 00 Infuse Over: 1 hr, Route: IV, 1,000, Drug form: INJ, ONCE, Priority: STAT, Dosing Weight 63.636 kg, Start date: 02/03/22 11:40:00 CDT, Stop date: 02/03/22 11:40:00 CDT, 0 acetaminoph No Notes: Do M emoria en 02-03 not exceed l 16:40: 4 gm/day. Mohan (Same as: Tylenol) Benadryl No Notes: Memoria - (Same as: l 16:40: Benadryl) Reglan No Notes: [facility]oria - (Same as: l 16:40: Reglan) Saline No Notes: [facility]oria Flush 0.9% 02-03 Same as: l 15:17: BD Posiflush Sterile pantoprazol Yes Take 40 mg Memoria e [...] by mouth l mg tablet 22:03: at Mohan 05 bedtime. tiZANidine Yes Take 2 mg [...] 2-23 by mouth l tablet 22:03: daily. [place]an 05 acetaminoph Yes Take by Mem oria en 2-23 mouth l (TYLENOL) 22:03: every 6 Donna nn 325 mg 05 (six) tablet hours as needed for Pain (scale 1-3). amLODIPine Yes Take 5 mg Me moria 5 mg tablet 2-23 by mouth l 22:03: daily. magnesium Yes Take by Memor ia oxide 400 2-23 mouth. l mg 22:03: magnesium Tab furosemide Yes Take 20 mg M emoria 20 mg 2-23 by mouth l tablet 22:03: every [place] 05 morning and evening. biotin 1 mg Yes Take by Mem oria Cap 2-23 mouth. l 22:03: carvedilol 2020-11 Yes [facility] (Coreg) 2-30 Health 3.125 MG 00:00: tablet carvedilol 2020-11 Yes [facility] (Coreg) 2-30 Health 3.125 MG 00:00: tablet carvedilol 2020-11 Yes [facility] (Coreg) 2-30 Health 3.125 MG 00:00: tablet 00 carvedilol 2020-11 Yes [facility] (Coreg) 2-30 Health 3.125 MG 00:00: tablet buPROPion 2020-11 Yes 300mg Take 300 Uni vers XL 300 mg 2-30 mg by ity of 24 hr 00:00: mouth. [place] tablet [facility] buPROPion 2020-11 Yes 300mg Take 300 Uni vers XL 300 mg 2-30 mg by ity of 24 hr 00:00: mouth. [place] tablet [facility] buPROPion 2020-11 Yes 300mg Take 300 Uni vers XL 300 mg 2-30 mg by ity of 24 hr 00:00: mouth. [place] tablet [facility] buPROPion 2020-11 Yes 300mg Take 300 Uni vers XL 300 mg 2-30 mg by ity of 24 hr 00:00: mouth. [place] tablet [facility] buPROPion 2020-11 Yes 300mg Take 300 Uni vers XL 300 mg 2-30 mg by ity of 24 hr 00:00: mouth. [place] tablet [facility] buPROPion 2020-11 Yes 300mg Take 300 Uni vers XL 300 mg 2-30 mg by ity of 24 hr 00:00: mouth. [place] tablet 00 [facility] buPROPion 2020-11 Yes 300mg Take 300 Uni vers XL 300 mg 2-30 mg by ity of 24 hr 00:00: mouth. [place] tablet [address] [place] [address] buPROPion 2020-11 Yes 300mg Take 300 Uni vers XL 300 mg 2-30 mg by ity of 24 hr 00:00: mouth. [place] tablet [address] [place] [address] furosemide 2020-11 Yes 20mg Q.5D Take 20 [...] tablet 25 nightly. l hydromorPHO 2020-11 Yes [id number] 4mg Q8H Take 4 mg [facility] NE [...] every l morning. clonAZEPAM 2020-11 Yes 1mg [id number] Take 1 mg [facility] (KlonoPIN) 0-04 [id number] by mouth 3 st 1 MG tablet [...] 25 l coated tablet NON 2020-11 Yes [id number] [facility] FORMULARY 0-[address] 08:44: --- [...] tablet 25 nightly. l hydromorPHO 2020-11 Yes [id number] 4mg Q8H Take 4 mg [facility] NE [...] every l morning. clonAZEPAM 2020-11 Yes 1mg Q.[id number] Take 1 mg [facility] (KlonoPIN) 0-04 [id number] by mouth 3 st 1 MG tablet [...] 25 l coated tablet NON 2020-11 Yes [id number] [facility] FORMUL[facility] 0-[address] 08:44: --- [...] tablet 25 nightly. l hydromorPHO 2020-11 Yes [id number] 4mg Q8H Take 4 mg [facility] NE [...] every l morning. clonAZEPAM 2020-11 Yes 1mg Q.[id number] Take 1 mg [facility] (KlonoPIN) 0-04 [id number] by mouth 3 st 1 MG tablet [...] 25 l coated tablet NON 2020-11 Yes [id number] [facility] FORMULARY 0-[address] 08:44: --- [...] tablet 25 nightly. l hydromorPHO 2020-11 Yes [id number] 4mg Q8H Take 4 mg [facility] NE [...] every l morning. clonAZEPAM 2020-11 Yes 1mg Q.[id number] Take 1 mg [facility] (KlonoPIN) 0-04 [id number] by mouth 3 st 1 MG tablet [...] 25 l coated tablet NON 2020-11 Yes [id number] [facility] FORMULARY 0-[address] 08:44: --- [...] tablet 25 nightly. l hydromorPHO 2020-11 Yes [id number] 4mg Q8H Take 4 mg [facility] NE [...] every l morning. clonAZEPAM 2020-11 Yes 1mg Q.[id number] Take 1 mg [facility] (KlonoPIN) 0-04 [id number] by mouth 3 st 1 MG tablet [...] 25 l coated tablet NON 2020-11 Yes [id number] [facility] FORMULARY 0-[address] 08:44: --- [...] tablet 25 nightly. l hydromorPHO 2020-11 Yes [id number] 4mg Q8H Take 4 mg [facility] NE [...] every l morning. clonAZEPAM 2020-11 Yes 1mg Q.[id number] Take 1 mg [facility] (KlonoPIN) 0-04 [id number] by mouth 3 st 1 MG tablet [...] 25 l coated tablet NON 2020-11 Yes [id number] [facility] FORMULARY 0-[address] 08:44: --- [...] tablet 25 nightly. l hydromorPHO 2020-11 Yes [id number] 4mg Q8H Take 4 mg [facility] NE [...] every l morning. clonAZEPAM 2020-11 Yes 1mg Q.[id number] Take 1 mg [facility] (KlonoPIN) 0-04 [id number] by mouth 3 st 1 MG tablet [...] ta 25 mcg 25 daily. l tablet furosemide 2020-11 Yes 20mg Q.5D Take 20 [...] tablet 25 nightly. l hydromorPHO 2020-11 Yes [id number] 4mg Q8H Take 4 mg [facility] NE [...] Hospita capsule 25 every l morning. clonAZEPAM 2021-1 Yes 1mg Q.[id number] Take 1 mg [facility] (KlonoPIN) 0-04 [id number] by mouth 3 st 1 MG tablet [...] 25 l coated tablet NON 2020-11 Yes [id number] [facility] FORMUL[facility] 0-[address] 08:44: --- all, 1 Hospita 25 tab in AM l valproic 2020-11 Yes 250mg Q.5D Take 250 Meth geovani acid 0-[address] (Depakene) 08:44: mouth 2 Hosp jah 250 mg 25 (two) l capsule times a day. aspirin 2020-11 Yes 81mg QD Take 81 mg Meth geovani (ECOTRIN) 0-[address] 81 MG 08:44: daily. [facility]osp[facility] enteric 25 l coated tablet NON 2020-11 Yes [id number] Methodi FORMULARY 0-[address] 08:44: --- all, 1 [facility] 25 tab in AM l valproic 2020-11 Yes 250mg Q.5D Take 250 Meth geovani acid 0-[address] (Depakene) 08:44: mouth 2 [facility] 250 mg 25 (two) l capsule times a day. hydrALAZINE 2020-11 Yes 50mg QD Take 50 mg UT (Apresoline 0-04 by mouth 1 He alth ) 50 MG 00:00: (one) time tablet 00 each day. hydrALAZINE 2020-11 Yes 50mg QD Take 50 mg UT (Apresoline 0-04 by mouth 1 He alth ) 50 MG 00:00: (one) time tablet 00 each day. hydrALAZINE 2020-11- No 50mg QD Take 50 mg [place] (Apresoline 0-04 10-19 by mouth 1 H ealth ) 50 MG 00:00: 00:00 (one) time tablet 00 :00 each day. levETIRAcet 2021- No 1{tbl} Take 1 U T am XR 06-04 tablet by [facility] (Keppra XR) 00:00: 00:00 mouth 500 MG 24 00 :00 every hr tablet night. levETIRAcet 2021- No 1{tbl} Take 1 U T am XR 06-04 tablet by [facility] (Keppra XR) 00:00: 00:00 mouth 500 MG 24 00 :00 every hr tablet night. fluticasone Yes 1{spray QD Administer [place] (Flonase) 6-02 } 1 spray Health 50 MCG/ACT 00:00: into nasal spray 00 affected nostril(s) 1 (one) time each day. fluticasone Yes 1{spray QD Administer [place] (Flonase) 6-02 } 1 spray Health 50 MCG/ACT 00:00: into nasal spray 00 affected nostril(s) 1 (one) time each day. fluticasone Yes 1{spray QD Administer [place] (Flonase) 6-02 } 1 spray Health 50 MCG/ACT 00:00: into nasal spray 00 affected nostril(s) 1 (one) time each day. fluticasone Yes 1{spray QD Administer [place] (Flonase) 6-02 } 1 spray Health 50 MCG/ACT 00:00: into nasal spray 00 affected nostril(s) 1 (one) time each day. furosemide Yes 20mg Take 20 mg U nivers 20 mg 5-26 by mouth ity of tablet 22:50: every morning Medical and Branch evening. pantoprazol Yes 40mg Take 40 mg Univers e 5-26 by mouth ity of (PROTONIX) 22:50: daily. [place] 40 mg EC Medical tablet Branch [...] ity o f mg tablet 22:50: at [place] bedtime. Medical Branch tiZANidine Yes 2mg Take 2 mg Un christie (ZANAFLEX) 5-26 by mouth 2 ity of 2 mg 22:50: (two) [place] capsule times Medical daily as Branch needed for [...] 400 5-26 mouth. ity of mg 22:50: [place] magnesium Medical Tab Branch biotin 1 mg Yes Take by Uni vers Cap 5-26 mouth. ity of 22:50: Medical Branch furosemide Yes 20mg Take 20 mg U nivers 20 mg 5-26 by mouth ity of tablet 22:50: every morning Medical and Branch evening. pantoprazol Yes 40mg Take 40 mg Univers e 5-26 by mouth ity of (PROTONIX) 22:50: daily. [place] 40 mg EC Medical tablet Branch [...] ity o f mg tablet 22:50: at [place] bedtime. Medical Branch tiZANidine Yes 2mg Take 2 mg Un christ[place] (ZANAFLEX) 5-26 by mouth 2 ity of 2 mg 22:50: (two) [place] capsule times Medical daily as Branch needed for [...] ity o f mg tablet 22:50: at [place] bedtime. Medical Branch tiZANidine Yes 2mg Take [...] 400 5-26 mouth. ity of mg 22:50: [place] magnesium Medical Tab Branch furosemide Yes 20mg [...] 400 5-26 mouth. ity of mg 22:50: [place] magnesium Medical Tab Branch biotin 1 [...] ity of 50 mg 22:50: at [place] [facility] bedtime. Medical Branch rOPINIRole Yes 2mg Take [...] by mouth ity of tablet 22:50: daily. [place] Medical Branch acetaminoph Yes Take by Uni [...] 400 5-26 mouth. ity of mg 22:50: [place] magnesium Medical Tab Branch biotin 1 mg Yes Take by Uni vers Cap 5-26 mouth. ity of 22:50: [place] Medical Branch furosemide Yes 20mg Take 20 mg U nivers 20 mg 5-26 by mouth ity of tablet 22:50: every [place] morning Medical and Branch evening. pantoprazol Yes [...] 400 5-26 mouth. ity of mg 22:50: [place] magnesium Medical Tab Branch biotin 1 mg Yes Take by Uni vers Cap 5-26 mouth. ity of 22:50: Medical Branch furosemide Yes 20mg Take 20 mg U nivers 20 mg 5-26 by mouth ity of tablet 17:50: every morning Medical and Branch evening. pantoprazol Yes 40mg Take 40 mg Univers e 5-26 by mouth ity of (PROTONIX) 17:50: daily. [place] 40 mg EC Medical tablet [...] acetaminoph Yes Take by Uni vers en 5- mouth ity of (TYLENOL) 17:50: every 6 [place] 325 mg (six) Medical tablet hours as Branch needed for Pain (scale 1-3). amLODIPine Yes 5mg Take 5 mg Un christie 5 mg tablet 5-26 by mouth ity of 17:50: daily. Medical Branch magnesium Yes Take by Unive rs oxide 400 5-26 mouth. ity of mg 17:50: [place] magnesium Medical Tab Branch biotin 1 mg Yes Take by Uni vers Cap 5-26 mouth. ity of 17:50: Medical Branch furosemide Yes 20mg Take 20 mg U nivers 20 mg 5-26 by mouth ity of tablet 17:50: every morning Medical and Branch evening. pantoprazol Yes 40mg Take 40 mg Univers e 5-26 by mouth ity of (PROTONIX) 17:50: daily. [place] 40 mg EC Medical tablet Branch [...] 2mg Take 2 mg Un christ[place] (ZANAFLEX) 5- by mouth 2 ity of 2 mg [...] acetaminoph Yes Take by Uni vers en 04-03 mouth ity of (TYLENOL) 17:50: every 6 [place] 325 mg (six) Medical tablet hours as Branch needed for Pain (scale 1-3). amLODIPine Yes 5mg Take 5 mg Un christie 5 mg tablet - by mouth ity of 17:50: daily. Medical Branch magnesium Yes Take by Unive rs oxide 400 - mouth. ity of mg 17:50: [place] magnesium Medical Tab Branch biotin 1 mg Yes Take by Uni vers Cap - mouth. ity of 17:50: Medical Branch acetaminoph Yes Take by Uni vers en - mouth ity of (TYLENOL) 17:50: every 6 [place] 325 mg 01 (six) Medical tablet hours as Branch needed for Pain (scale 1-3). acetaminoph Yes Take by Uni vers en - mouth ity of (TYLENOL) 17:50: every 6 [place] 325 mg 01 (six) Medical tablet hours as Branch needed for Pain (scale 1-3). acetaminoph 2020-0 Yes Take by Uni vers en 5-26 mouth ity of (TYLENOL) 17:50: every 6 [place] 325 mg 01 (six) Medical tablet hours as Branch needed for Pain (scale 1-3). acetaminoph 0 Yes Take by Uni vers en 5-26 mouth ity of (TYLENOL) 17:50: every 6 [place] 325 mg 01 (six) Medical tablet hours as Branch needed for Pain (scale 1-3). acetaminoph 0 Yes Take by Uni vers en 5-26 mouth ity of (TYLENOL) 17:50: every 6 [place] 325 mg 01 (six) Medical tablet hours as Branch needed for Pain (scale 1-3). acetaminoph 0 Yes Take by Uni vers en 5-26 mouth ity of (TYLENOL) 17:50: every 6 [place] 325 mg 01 (six) Medical tablet hours as Branch needed for Pain (scale 1-3). acetaminoph 0 Yes Take by Uni vers en 5-26 mouth ity of (TYLENOL) 17:50: every 6 [place] 325 mg 01 (six) Medical tablet hours as Branch needed for Pain (scale 1-3). acetaminoph 0 Yes Take by Uni vers en 5-26 mouth ity of (TYLENOL) 17:50: every 6 [place] 325 mg 01 (six) Medical tablet hours as Branch needed for Pain (scale 1-3). furosemide 2020-0 Yes 20mg Take 20 mg U nivers 20 mg 5-26 by mouth ity of tablet 17:50: every [place] 01 morning Medical and Branch evening. pantoprazol 2020-0 Yes 40mg Take 40 mg Univers e 5-26 by mouth ity of (PROTONIX) 17:50: daily. [place] 40 mg EC 01 Medical tablet Branch citalopram 2020-0 Yes 20mg Take 20 mg U nivers (CELEXA) 20 5-26 by mouth ity of mg tablet 17:50: daily. [place] Medical Branch traZODONE 2020-0 Yes 50mg Take 50 mg Un christie [...] by mouth ity of tablet 17:50: daily. [place] Medical Branch acetaminoph Yes Take by Uni vers en 5-26 mouth ity of (TYLENOL) 17:50: every 6 [place] 325 mg (six) Medical tablet hours as Branch needed for Pain (scale 1-3). amLODIPine Yes 5mg Take 5 mg Un christie 5 mg tablet 5-26 by mouth ity of 17:50: daily. [place] Medical Branch magnesium Yes Take by Unive rs oxide 400 5-26 mouth. ity of mg 17:50: [place] magnesium Medical Tab Branch biotin 1 mg Yes Take by Uni vers Cap 5-26 mouth. ity of 17:50: [place] Medical Branch furosemide Yes 20mg Take 20 mg U nivers 20 mg 5-26 by mouth ity of tablet 17:50: every morning Medical and Branch evening. pantoprazol Yes 40mg Take 40 mg Univers e 5-26 by mouth ity of (PROTONIX) 17:50: daily. [place] 40 mg EC Medical tablet Branch citalopram Yes 20mg Take 20 mg U nivers (CELEXA) 20 5-26 by mouth ity of mg tablet 17:50: daily. [place] Medical Branch traZODONE Yes 50mg Take 50 [...] 5-26 by mouth ity of 17:50: daily. [place] Medical Branch magnesium Yes Take by Unive rs oxide 400 5-26 mouth. ity of mg 17:50: [place] magnesium Medical Tab Branch biotin 1 mg Yes Take by Uni vers Cap 5-26 mouth. ity of 17:50: Medical Branch furosemide Yes 20mg Take 20 mg U nivers 20 mg 5-26 by mouth ity of tablet 17:50: every morning Medical and Branch evening. pantoprazol Yes 40mg Take 40 mg Univers e 5-26 by mouth ity of (PROTONIX) 17:50: daily. [place] 40 mg EC Medical tablet Branch [...] 5-26 by mouth ity of 17:50: daily. [place] Medical Branch magnesium Yes Take by Unive rs oxide 400 5-26 mouth. ity of mg 17:50: [place] magnesium Medical Tab Branch biotin 1 mg Yes Take by Uni vers Cap 5-26 mouth. ity of 17:50: Medical Branch furosemide Yes 20mg Take 20 mg U nivers 20 mg 5-26 by mouth ity of tablet 17:50: every morning Medical and Branch evening. pantoprazol Yes 40mg Take 40 mg Univers e 5-26 by mouth ity of (PROTONIX) 17:50: daily. [place] 40 mg EC Medical tablet Branch [...] 5-26 by mouth ity of 17:50: daily. [place] Medical Branch magnesium Yes Take by Unive rs oxide 400 5-26 mouth. ity of mg 17:50: [place] magnesium Medical Tab Branch biotin 1 mg Yes Take by Uni vers Cap 5-26 mouth. ity of 17:50: Medical Branch furosemide Yes 20mg Take 20 mg U nivers 20 mg 5-26 by mouth ity of tablet 17:50: every morning Medical and Branch evening. pantoprazol Yes 40mg Take 40 mg Univers e 5-26 by mouth ity of (PROTONIX) 17:50: daily. [place] 40 mg EC Medical tablet Branch citalopram Yes 20mg Take 20 mg U nivers (CELEXA) 20 5-26 by mouth ity of mg tablet 17:50: daily. [place] Medical Branch traZODONE Yes 50mg Take 50 [...] 5-26 by mouth ity of 17:50: daily. [place] Medical Branch magnesium Yes Take by Unive rs oxide 400 5-26 mouth. ity of mg 17:50: [place] magnesium Medical Tab Branch biotin 1 mg Yes Take by Uni vers Cap 5-26 mouth. ity of 17:50: Medical Branch furosemide Yes 20mg Take 20 mg U nivers 20 mg 5-26 by mouth ity of tablet 17:50: every morning Medical and Branch evening. pantoprazol Yes 40mg Take 40 mg Univers e 5-26 by mouth ity of (PROTONIX) 17:50: daily. [place] 40 mg EC Medical tablet Branch citalopram Yes 20mg Take 20 mg U nivers (CELEXA) 20 5-26 by mouth ity of mg tablet 17:50: daily. Medical Branch traZODONE Yes 50mg Take 50 mg Un hcristie (DESYREL) 5-26 by mouth ity of 50 [...] 400 5-26 mouth. ity of mg 17:50: [place] magnesium Medical Tab Branch biotin 1 mg Yes Take by Uni vers Cap 5-26 mouth. ity of 17:50: Medical Branch furosemide Yes 20mg Take 20 mg U nivers 20 mg 5-26 by mouth ity of tablet 17:50: every morning Medical and Branch evening. pantoprazol Yes 40mg Take 40 mg Univers e 5-26 by mouth ity of (PROTONIX) 17:50: daily. [place] 40 mg EC Medical tablet Branch citalopram Yes 20mg Take 20 mg U nivers (CELEXA) 20 5-26 by mouth ity of mg tablet 17:50: daily. Medical Branch traZODONE Yes 50mg Take 50 mg Un christie (DESYREL) 5-26 by mouth ity of 50 mg 17:50: at [place] tablet bedtime. Medical Branch rOPINIRole Yes 2mg Take 2 mg Un christie (REQUIP) 2 - by mouth ity o f mg tablet 17:50: at [place] bedtime. Medical Branch tiZANidine Yes 2mg Take 2 mg Un christ[place] (ZANAFLEX) -26 by mouth 2 ity of 2 mg 17:50: (two) [place] capsule 01 times Medical daily as Branch needed for Muscle Spasms. DOCUSATE Yes 1{tbl} Take 1 Tab U nivers CALCIUM 04-03 by mouth ity of (STOOL 17:50: as needed [place] SOFTENER for Medical ORAL) Constipati Branch on. aspirin 81 Yes 81mg Take 81 mg U nivers mg EC 04-03 by mouth ity of tablet 17:50: daily. [place] Medical Branch acetaminoph Yes Take by Uni vers en 04-03 mouth ity of (TYLENOL) 17:50: every 6 [place] 325 mg 01 (six) Medical tablet hours as Branch needed for Pain (scale 1-3). amLODIPine Yes 5mg Take 5 mg Un christie 5 mg tablet 04-03 by mouth ity of 17:50: daily. [place] Medical Branch magnesium Yes Take by Unive rs oxide 400 04-03 mouth. ity of mg 17:50: [place] magnesium Medical Tab Branch biotin 1 mg Yes Take by Uni vers Cap 04-03 mouth. ity of 17:50: [place] Medical Branch HYDROmorpho 2020- No 8mg Take 8 mg Univers ne 04-03 by mouth ity of (DILAUDID) 17:02: 00:00 every 6 [place] as 8 mg tablet 51 :00 (six) Medical hours as Branch needed for Pain. atropine Yes .5mg 0.5 mg, IV Uni vers injection 04-03 Push, PRN ity o f 0.5 mg 05:33: - SEE [place] [id number] INSTRUCTIO Medical NS, Branch Starting Thu04/03/21 at 0033, Until Discontinu ed, Routine, Symptomati c Bradycardi a dextrometho Yes 10mL 10 mL, Univ ers rphan-guaif 5-26 Oral, ity of enesin 03:58: Q6HPRN, [place] (ROBITUSSIN 20 Starting Medi dyan DM) 10-100 Thu Branch mg/5 mL 04/02/21 at solution 10 2258, mL Until Discontinu ed, Routine, Cough lidocaine 0 202- No 1{patch 1 Patch, Univers (LIDODERM) - 05-26 } Topical, ity of 5 % (700 02:00: 13:31 Administer [place] mg/patch) 00 :00 over 12 Medical patch 1 Hours, Branch Patch ONCE, 1 dose, Thu04/02/21 at 2100, Routine amLODIPine 0 Yes 5mg 5 mg, Univer s (NORVASC) - Oral, ity of tablet 5 mg 01:00: DAILY, [place] 00 First dose Medical (after Branch last modificati on) on Thu04/02/21 at 2000, Until Discontinu ed, Routine HYDROmorpho 0 Yes Take 0.5 Me moria ne 8 mg 5-26 tablets by l tablet 00:00: mouth Mohan 00 every 12 (twelve) hours as needed for Pain. Indication s: chronic pain HYDROmorpho 0 No Take 8 mg M emoria ne [...] 40 mg 00 First dose Medical on [facility] 04/02/21 at 1700, Until Discontinu ed, Routine atorvastati Yes 20mg 20 mg, Univ ers n (LIPITOR) 5-25 Oral, QPM, it y of tablet 20 22:00: First dose [place] mg 00 on [facility] 04/02/21 at Branch 1700, Until Discontinu ed, Routine magnesium 2020- No 296mL 296 mL, Uni vers citrate 5-25 05-25 Oral, ity of solution 17:15: 21:48 ONCE, 1 [place] 296 mL 00 :00 dose, [facility] 04/02/21 at Branch 1215, Routine pantoprazol Yes 40mg 40 mg, Univ ers e 5-25 Oral, ity of (PROTONIX) 14:00: DAILY, [place] EC tablet 00 First dose Medi dyan 40 mg on [facility] 04/02/21 at 0900, Until Discontinu ed, Routine aspirin EC Yes 81mg 81 mg, Unive rs tablet 81 5-25 Oral, ity of mg 14:00: DAILY, [place] 00 First dose Medical on [facility] 04/02/21 at 0900, Until Discontinu ed, Routine sennosides- Yes 2{tbl} 2 tablet, Univers docusate 5-25 Oral, BID, ity o f sodium 13:00: First dose [place] (SENOKOT-S) 00 on [facility] l 8.6-50 mg 04/02/21 at [facility] per tablet 0800, 2 tablet Until Discontinu ed, Routine polyethylen 0 Yes 17g 17 g, Unive rs e glycol 5-25 Oral, BID, ity o f 3350 powder 13:00: First dose [place] 17 g 00 on [facility] 04/02/21 at Branch 0800, Until Discontinu ed, Routine ipratropium 0 Yes 3mL 3 mL, [facility] rs -albuteroL 5-25 Inhalation ity of (DUONEB) 13:00: , QID, [place] 0.5 mg-3 00 First dose Medic al mg(2.5 mg on [facility])/3 mL 04/02/21 at nebulizer 0800, solution 3 Until mL Discontinu ed, Routine levothyroxi Yes 25ug 25 mcg, Uni vers ne 5-25 Oral, ity of (SYNTHROID) 11:00: QAM-0600, [place] tablet First dose Medi dyan mcg on [facility] 04/02/21 at 0600, Until Discontinu ed, Routine lactated 2020- No 1000mL at 200 Univ ers ringers IV 5-25 05-25 mL/hr, ity of infusion 08:00: 07:12 1,000 mL, [place] as 1,000 mL 00 :00 Intravenou Medic al s, ONCE, 1 Branch dose, [facility] 04/02/21 at 0300, Routine ipratropium Yes 3mL 3 mL, [facility] rs -albuteroL 5-25 Inhalation ity of (DUONEB) 07:37: , Q6HPRN, [place] 0.5 mg-3 55 Starting Medical mg(2.5 mg [facility])/3 mL 04/02/21 at nebulizer 0237, solution 3 Until mL Discontinu ed, Routine, Wheezing, Shortness of Breath naloxone Yes .2mg 0.2 mg, Univer s (NARCAN) 5-25 Slow IV ity of injection 06:53: Push, Maru 0.2 mg 33 SEE-INSTRU Medical CTIONS, Branch Starting [facility] 04/02/21 at 0153, Until Discontinu ed, Routine metoprolol 2020- No 25mg Take 25 mg Univers tartrate 5-25 05-25 by mouth ity of (LOPRESSOR) 06:52: 00:00 daily. [place] as 25 mg 52 :00 Medical tablet [place] lisinopril 2020- No Take by Uni vers [...] by mouth ity of 06:52: 00:00 daily. [place] 52 :00 Medical Branch acetaminoph Yes 650mg 650 mg, Un christie en 5-25 Oral, ity of (TYLENOL) 06:52: Q6HPRN, [place] tablet 650 06 Starting Medic al [...] ity of 1,000 mg in 04:30: 04:21 [place], [place] NaCl 0.9% 00 :00 ONCE, 1 Medical (NS) 50 mL dose, Mon Bran ch MINI-BAG 04/01/21 at 2330, 50 mL
Reas on for Anti-Infec tive: Documented Infection< br>Documen theodore Infection Site: Urine
D uration of Therapy: Other (see Comments) aspirin 81 Yes 81mg QD Take 81 mg U T MG EC 5-25 by mouth 1 Health tablet 00:00: (one) time 00 each day. metoprolol No Take 25 mg M emoria tartrate 5-25 by mouth l (LOPRESSOR) 00:00: daily. Herm gabriel 25 mg 00 tablet lisinopril No Take by Mj chadwick (PRINIVIL,Z 5-25 mouth l ESTRIL) 40 00:00: daily. Donna nn mg tablet 00 POTASSIUM No Take 10 Memor ia CHLORIDE 5-25 mEq by l (KLOR-CON 00:00: mouth Mohan 10 ORAL) 00 daily. multivitami No Take 1 Tab Memoria n tablet 5-25 by mouth l 00:00: daily. [place] 00 BIOTIN ORAL No Take 1 Tab Memoria 5-25 by mouth l 00:00: daily. [place] 00 HYDROcodone No Take 1 Mj chadwick [...] 5-24 mEq by l (KLOR-CON 22:24: mouth [place] 10 ORAL) 03 daily. HYDROmorpho Yes Take 8 mg M emoria ne 5-24 by mouth l (DILAUDID) 22:24: every 6 Herm gabriel 8 mg tablet 03 (six) hours as needed for Pain. multivitami Yes Take 1 Tab Memoria n tablet 5-24 by mouth l 22:24: daily. Mohan 03 BIOTIN ORAL Yes Take 1 Tab Memoria 5-24 by mouth l 22:24: daily. [place] 03 HYDROcodone Yes Take 1 Mj chadwick -acetaminop 5-24 tablet by l hen (NORCO) 22:24: mouth Donna nn 7.5-325 mg 03 every 6 per tablet (six) hours as needed for Pain. remove 2019-11 No 1 patch, Memoria patch -21 Route: l 03:00: TOP, [place] 00 Bedtime, Drug form: ERFILM, Start date: 09/28/20 21:00:00 [employer], Duration: 30 day, Stop date: 10/27/20 21:00:00 [employer], 0 atorvastati 2019-11 Yes 40 mg = 1 M emoria n 40 mg 1-20 tab, PO, l oral tablet 20:53: Bedtime, # Mohan 00 30 tab, 1 Refill(s), Pharmacy: [facility] #[id number], 165.1, cm, 09/27/20 3:16:00 [employer], Height, 75.002, kg, 09/27/20 3:16:00 [employer], Weight clopidogrel 2019-11 Yes 75 mg = 1 M emoria 75 mg oral 1-20 tab, PO, l tablet 20:53: Daily, # Mohan 00 30 tab, 1 Refill(s), Pharmacy: [facility] #[id number], 165.1, cm, 09/27/20 3:16:00 [employer], Height, 75.002, kg, 09/27/20 3:16:00 [employer], Weight Docusate 2019-11 Yes 100 mg = 1 Mem oria Sodium 100 1-20 cap, PO, l MG Oral 20:53: Q12H, 0 [place] Capsule 00 Refill(s) Levetiracet 2019-11 Yes 1,000 mg = Memoria am 1000 MG 1-20 1 tab, PO, l Oral Tablet 20:53: Q12H, # 60 [place] [Keppra] 00 tab, 1 Refill(s), Pharmacy: [facility] #[id number], 165.1, cm, 09/27/20 3:16:00 [employer], Height, 75.002, kg, 09/27/20 3:16:00 [employer], Weight Keppra 1000 2019-11 Yes 1,000 mg = Memoria mg oral 1-20 1 tab, PO, l tablet 20:53: Q12H, # 60 Donna nn 00 tab, 1 Refill(s), Pharmacy: [facility] #[id number], 165.1, cm, 09/27/20 3:16:00 [employer], Height, 75.002, kg, 09/27/20 3:16:00 [employer], Weight Lidocaine 2019-11 No 1 patch, Mj chadwick 0.05 MG/MG -20 Route: l Transdermal 19:04: TOP, Salvatore n Patch 00 Daily, Drug form: FILM, Start date: 09/28/20 13:04:00 [employer], Duration: 30 day, Stop date: 10/28/20 9:00:00 [employer], 0 gabapentin 2019-11 No Notes: Memor ia 300 MG Oral 1-20 (Same as: l Capsule 17:30: Neurontin) Herm Lisinopril 2019-11 No 20 mg, Memor ia 1-20 Route: PO, l 15:00: Drug form: Mohan 00 TAB, Daily, Dosing Weight 75.002, kg, Start date: 09/28/20 9:00:00 [employer], Duration: 30 day, Stop date: 10/27/20 9:00:00 [employer] Captopril 2019-11 No 1 tab, Memori a 50 MG / -20 Route: PO, l Hydrochloro 15:00: Drug Form: Mohan thiazide 25 00 TAB, MG Oral Dosing Tablet Weight 75.002, kg, Daily, Start date: 09/28/20 9:00:00 [employer], Duration: 30 day, Stop date: 10/27/20 9:00:00 [employer] Hydralazine 2019-11 No Notes: Mj chadwick Hydrochlori -20 (Same as: l de 10 MG 15:00: Apresoline Her bailey Oral Tablet 00 ) May interfere w/enteral feedings. Take With Food Coreg 2019-11 No Notes: Memoria 1-20 Give with l 15:00: food. [place] 00 (Same As: Coreg) Iohexol 2019-11 No 60 mL, Memoria 1-20 Route: l 07:28: IVP, Drug Mohan 00 Form: SOLN, Dosing Weight 75.002, kg, ONCALL, STAT, Start date: 09/28/20 1:28:00 [employer], Duration: 1 doses or times, Dose = 2.2ml/kg, Max dose = 100ml -- "To be infused by Radiology Staff ONLY" Hydralazine 2019-11 No Notes: Mj chadwick Hydrochlori 1-20 (Same as: l de 10 MG 06:40: Apresoline Her bailey Oral Tablet 00 ) May interfere w/enteral feedings. Take With Food hydrochloro 2019-11 No Notes: Mj chadwick thiazide 25 1-20 (Same as: l mg oral 04:43: Hydrodiuri Herm gabriel tablet 00 l) With food. captopril 2019-11 No Notes: Memori a 1-20 Give on l 04:42: empty Mohan 00 stomach. 1 hour before meal. (Same As: Capoten) Hydralazine 2019-11 No 10 mg, Mj chadwick Hydrochlori 1-20 Route: PO, l de 10 MG 04:23: Drug form: Her bailey Oral Tablet 00 TAB, Q6H, Dosing Weight 75.002, kg, PRN Hypertensi on, Start date: 09/27/20 22:23:00 [employer], Duration: 30 day, Stop date: 10/27/20 22:22:00 [employer] Captopril 2019-11 No 1 tab, Memori a 50 MG / 1-20 Route: PO, l Hydrochloro 03:55: Drug Form: Mohan thiazide 25 00 TAB, MG Oral Dosing Tablet Weight 75.002, kg, Daily, Start date: 09/27/20 21:55:00 [employer], Duration: 30 day, Stop date: 10/27/20 9:00:00 [employer] atorvastati 2019-11 No Notes: Mj chadwick n 1-20 (Same as: l 03:00: Lipitor) Mohan 00 ropinirole 2019-11 No 2 mg, Memori a 1-20 Route: PO, l 03:00: Drug form: Mohan 00 TAB, Bedtime, Dosing Weight 75.002, kg, Start date: 09/27/20 21:00:00 [employer], Duration: 30 day, Stop date: 10/26/20 21:00:00 [employer] Clonazepam 2019-11 No 1 mg, Memori a 1-20 Route: PO, l 03:00: Drug form: [place] 00 TAB, Bedtime, Dosing Weight 75.002, kg, Start date: 09/27/20 21:00:00 [employer], Duration: 30 day, Stop date: 10/26/20 21:00:00 [employer] Lisinopril 2019-11 No Notes: Memor ia -20 (Same as: l 01:41: Prinivil, Zestril) Plavix 2019-11 No Notes: Memoria -19 (Same As: l 21:57: Plavix) Dilaudid 2019-11 No Notes: Memoria -19 (Same as: l 20:54: Dilaudid) Clonazepam 2019-11 No Notes: Memor ia -19 (Same As: l 20:54: KlonoPIN) Hazardous Drug Group 3:Reproduc tive risk Hazardous Drug -- Refer to safe handling procedure PPE Matrix Alprazolam 2019-11 No Notes: Memor ia 0.25 MG - With food l Oral Tablet 17:33: or milk Her bailey [Xanax] (Same as: Xanax) Docusate 2019-11 No Notes: Memoria -19 (Same as: l 15:00: Colace) (Do Not Crush) Saline 2019-11 No Notes: Memoria Flush 0.9% 11-27 (Same as: l 15:00: BD Posiflush) Levetiracet 2019-11 No Notes: Mj chadwick am 1000 MG 11-27 (Same l Oral Tablet 15:00: as:Keppra) [Keppra] heparin 2019-11 No Notes: Memoria -19 porcine l 14:00: heparin Insulin 2019-11 No Notes: Memoria regular - (Same as: l 13:30: Humulin R) Roll in palms of hands gently; Do not shake vigorously . WASTE: F/P - Black; E - Municipal Trash Bin Stable for 31 days at room temperatur e Expires in days from ____Date Thyroxine 2019-11 No Notes: Memori a 1-19 Take 1 l 12:30: hour before or 2 hours after meal; Enteral feeds may interefere with the absorption of this medication .(Same as:Levothr oid, Synthroid) Hydralazine 2019-11 No Notes: Mj chadwick -19 (Same as: l 11:58: Apresoline ) Push over 5 minutes Hydralazine 2019-11 No Notes: Mj chadwick 11-27 (Same as: l 11:15: Apresoline ) Push over 5 minutes Clonazepam 2019-11 No Notes: Memor ia 11-27 (Same As: l 10:52: KlonoPIN) Hazardous Drug Group 3:Reproduc tive risk Hazardous Drug -- Refer to safe handling procedure PPE Matrix Dextrose 2019-11 No 12.5 gm, Memor ia 50% Syringe 11-27 25 mL, l (D50W) 09:51: Route: IVP, Drug Form: INJ, Dosing Weight 75.002, kg, PRN, PRN Blood Glucose Results, Start date: 09/27/20 3:51:00 [employer], Duration: 30 day, Stop date: 10/27/20 3:50:00 [employer], 0 Glucagon 2019-11 No 1 mg, Memoria 11-27 Route: IM, l 09:51: Drug form: PDR/INJ, PRN, Dosing Weight 75.002, kg, PRN Blood Glucose Results, Start date: 09/27/20 3:51:00 [employer], Duration: 30 day, Stop date: 10/27/20 3:50:00 [employer], 0 Ativan 2019-11 No Notes: Memoria 11-27 (Same as: l 09:38: Ativan) ropinirole 2019-11 No Notes: Memor ia 11-27 (Same as: l 09:25: Requip) Trazodone 2019-11 No Notes: Memori a 11-27 (Same As: l 08:55: Desyrel) Labetalol 2019-11 No 105 mmHg, Me moria 11-27 Start l 08:25: date: 09/27/20 2:25:00 [employer], Duration: 30 day, Stop date: 10/27/20 2:24:00 [employer], 0 Acetaminoph 2019-11 No Notes: Do M emoria en 11-27 not exceed l 08:25: 4 gm/day. (Same as: Tylenol) Saline 2019-11 No Notes: Memoria Flush 0.9% 11-27 (Same as: l 08:25: BD Posiflush) Fentanyl 2019-11 No 50 Memoria 1-19 microgram, l 06:18: Route: [place] 00 IVP, ONCE, Dosing Weight 75, kg, Priority: STAT, Start date: 09/27/20 0:18:00 [employer], Stop date: 09/27/20 0:18:00 [employer] Keppra 2019-11 No 1,000 mg, Memori a 11-27 Route: l 06:08: IVPB, Mohan 00 ONCE, Dosing Weight 75, kg, Priority: STAT, Start date: 09/27/20 0:08:00 [employer], Stop date: 09/27/20 0:08:00 [employer] Ativan 2019-11 No Notes: Memoria - (Same as: l 05:36: Ativan) Mohan Acetaminoph 2019-11 No 1 tab, Mj chadwick en 325 MG / 11-27 Route: PO, l Hydrocodone 03:18: Drug Form: [place] Bitartrate 00 TAB, 5 MG Oral Dosing Tablet Weight 75, [Evant kg, ONCE, 5/325] STAT, Start date: 09/26/20 21:18:00 [employer], Stop date: 09/26/20 21:18:00 [employer] Ativan 2019-11 No 2 mg, Memoria 11-27 Route: l 01:31: IVP, Drug form: INJ, ONCE, Dosing Weight 75, kg, Priority: STAT, Start date: 09/26/20 19:31:00 [employer], Stop date: 09/26/20 19:31:00 [employer] Sodium 2019-11 No 1,000 mL, Memori a Chloride 11-27 Infuse l 0.9% 01:28: Over: 1 Mohan (Bolus) IV 00 hr, Route: IV, ONCE, Priority: STAT, Dosing Weight 75 kg, Start date: 09/26/20 19:28:00 [employer], Stop date: 09/26/20 19:28:00 [employer] Ativan 2019-11 No 1 mg, Memoria 11-27 Route: IM, l 01:01: Drug form: [place] 00 INJ, ONCE, Dosing Weight 56.002, kg, Priority: STAT, Start date: 09/26/20 19:01:00 [employer], Stop date: 09/26/20 19:01:00 [employer] traZODONE 2020-1 Yes 50mg Take 50 mg Un christie (DESYREL) 0-22 by mouth ity of 50 mg 20:09: at [place] tablet 19 bedtime. Medical Branch traZODONE 2019- Yes 50mg Take 50 [...] 400 0-22 mouth. ity of mg 20:09: [place] [address] Medical Tab Branch traZODONE 2019-11 Yes 50mg Take 50 mg Un christie (DESYREL) 0-22 by mouth ity of 50 mg 20:09: at [place] tablet 19 bedtime. Medical Branch magnesium 2019-11 Yes Take by Unive rs oxide 400 0-22 mouth. ity of mg 20:09: [place] [address] Medical Tab Branch traZODONE 2019-11 Yes 50mg Take 50 mg Un christie (DESYREL) 0-22 by mouth ity of 50 mg 20:09: at [place] tablet 19 bedtime. Medical Branch magnesium 2019-11 Yes Take by Unive rs oxide 400 0-22 mouth. ity of mg 20:09: [place] [address] Medical Tab Branch traZODONE 2019-11 Yes 50mg Take 50 mg Un christie (DESYREL) 0-22 by mouth ity of 50 mg 20:09: at [place] tablet 19 bedtime. Medical Branch magnesium 2019-11 Yes Take by Unive rs oxide 400 0-22 mouth. ity of mg 20:09: [place] [address] Medical Tab Branch traZODONE 2019-11 Yes 50mg Take 50 mg Un christie (DESYREL) 0-22 by mouth ity of 50 mg 20:09: at [place] tablet 19 bedtime. Medical Branch magnesium 2019-11 Yes Take by Unive rs oxide 400 0-22 mouth. ity of mg 20:09: [place] [address] Medical Tab Branch furosemide 2019-11 Yes 20mg Take 20 mg U nivers (LASIX) 40 0-22 by mouth ity o f mg tablet 20:06: daily. [place] [address] Medical Branch pantoprazol 2019-11 Yes 40mg Take 40 mg Univers e 0-22 by mouth ity of (PROTONIX) 20:06: daily. [place] 40 [place] [address] Medical tablet Branch citalopram 2019-11 Yes 20mg Take 20 mg U nivers (CELEXA) 20 0-22 by mouth ity of mg tablet 20:06: daily. [place] [address] Medical Branch rOPINIRole 2019-11 Yes 2mg Take 2 mg Un christie (REQUIP) 2 0-22 by mouth ity o f mg tablet 20:06: at [place] [address] bedtime. Medical Branch tiZANidine 2019-11 Yes 2mg [...] 0-22 by mouth ity of 20:06: daily. [place] [address] Medical Branch DOCUSATE 2019-11 Yes 1{tbl} Take 1 Tab U nivers CALCIUM 0-22 by mouth ity of (STOOL 20:06: as needed [place] SO[employer] for Medical ORAL) Constipati Branch on. amLODIPine 2019-11 Yes 5mg Take 5 mg Un christie 5 mg tablet 0-22 by mouth ity of 20:06: daily. [place] [address] Medical Branch furosemide 2019-11 Yes 20mg Take 20 mg U nivers (LASIX) 40 0-22 by mouth ity o f mg tablet 20:06: daily. [place] [address] Medical Branch pantoprazol 2019-11 Yes 40mg Take 40 mg Univers e 0-22 by mouth ity of (PROTONIX) 20:06: daily. [place] 40 [place] [address] Medical tablet Branch citalopram 2019-11 Yes 20mg Take 20 mg U nivers (CELEXA) 20 0-22 by mouth ity of mg tablet 20:06: daily. [place] [address] Medical Branch rOPINIRole 2019-11 Yes 2mg Take 2 mg Un christie (REQUIP) 2 0-22 by mouth ity o f mg tablet 20:06: at [place] [address] bedtime. Medical Branch tiZANidine 2019-11 Yes 2mg [...] 0-22 by mouth ity of 20:06: daily. [place] [address] Medical Branch DOCUSATE 2019-11 Yes 1{tbl} Take 1 Tab U nivers CALCIUM 0-22 by mouth ity of (STOOL 20:06: as needed [place] SOFTENER 52 for Medical ORAL) Constipati Branch on. amLODIPine 2019-11 Yes 5mg Take 5 mg Un christie 5 mg tablet 0-22 by mouth ity of 20:06: daily. [place] [address] Medical Branch furosemide 2019-11 Yes 20mg Take 20 mg U nivers (LASIX) 40 0-22 by mouth ity o f mg tablet 20:06: daily. [place] [address] Medical Branch pantoprazol 2019-11 Yes 40mg Take 40 mg Univers e 0-22 by mouth ity of (PROTONIX) 20:06: daily. [place] [address] Medical [facility] Branch citalopram 2019-11 Yes 20mg Take 20 mg U nivers (CELEXA) 20 0-22 by mouth ity of mg tablet 20:06: daily. [place] [address] Medical Branch rOPINIRole 2019-11 Yes 2mg Take 2 mg Un [place] (REQUIP) 2 0-22 by mouth ity o f mg tablet 20:06: at [place] [address] bedtime. Medical Branch tiZANidine 2019-11 Yes 2mg Take 2 mg Un christ[place] (ZANAFLEX) 0-22 by mouth 2 ity of 2 mg 20:06: (two) [place] [facility] 52 times Medical daily as Branch needed for Muscle Spasms. HYDROmorpho 2019-11 Yes 8mg Take 8 mg U nivers ne 0-22 by mouth ity of (DILAUDID) 20:06: every 6 [place] 8 [place] tablet 52 (six) Medical hours as Branch needed for Pain. BIOTIN ORAL 2019-11 Yes 1{tbl} Take 1 Tab Univers 0-22 by mouth ity of 20:06: daily. [place] [address] Medical Branch DOCUSATE 2019-11 Yes 1{tbl} Take 1 Tab U nivers CALCIUM 0-22 by mouth ity of (STOOL 20:06: as needed [place] SOFTENER for Medical ORAL) Constipati Branch on. amLODIPine 2019-11 Yes 5mg Take 5 mg Un christ[place] 5 mg tablet 0-22 by mouth ity of 20:06: daily. [place] [address] Medical Branch furosemide 2019-11 Yes 20mg Take 20 mg U nivers (LASIX) 40 0-22 by mouth ity o f mg tablet 20:06: daily. [place] [address] Medical Branch pantoprazol 2019-11 Yes 40mg Take 40 mg Univers e 0-22 by mouth ity of (PROTONIX) 20:06: daily. [place] 40 mg EC Medical tablet Branch citalopram 2019-11 Yes 20mg Take 20 mg U nivers (CELEXA) 20 0-22 by mouth ity of mg tablet 20:06: daily. [place] [address] Medical Branch rOPINIRole 2019-11 Yes 2mg Take 2 mg Un christ[place] (REQUIP) 2 0-22 by mouth ity o f mg tablet 20:06: at [place] [address] bedtime. Medical Branch tiZANidine 2019-11 Yes 2mg [...] 0-22 by mouth ity of 20:06: daily. [place] [address] Medical Branch DOCUSATE 2019-11 Yes 1{tbl} Take 1 Tab U nivers CALCIUM 0-22 by mouth ity of (STOOL 20:06: as needed [place] SOFTENER for Medical ORAL) Constipati Branch on. amLODIPine 2019-11 Yes 5mg Take 5 mg Un [place] 5 mg tablet 0-22 by mouth ity of 20:06: daily. [place] [address] Medical Branch furosemide 2019-11 Yes 20mg Take 20 mg U nivers (LASIX) 40 0-22 by mouth ity o f mg tablet 20:06: daily. [place] [address] Medical Branch pantoprazol 2019-11 Yes 40mg Take 40 mg Univers e 0-22 by mouth ity of (PROTONIX) 20:06: daily. [place] 40 mg EC Medical tablet Branch citalopram 2019-11 Yes 20mg Take 20 mg U nivers (CELEXA) 20 0-22 by mouth ity of mg tablet 20:06: daily. [place] [address] Medical Branch rOPINIRole 2019-11 Yes 2mg Take 2 mg Un christie (REQUIP) 2 0-22 by mouth ity o f mg tablet 20:06: at [place] [address] bedtime. Medical Branch tiZANidine 2019-11 Yes 2mg [...] 0-22 by mouth ity of 20:06: daily. [place] [address] Medical Branch DOCUSATE 2019-11 Yes 1{tbl} Take 1 Tab U nivers CALCIUM 0-22 by mouth ity of (STOOL 20:06: as needed [place] SOFTENER for Medical ORAL) Constipati Branch on. amLODIPine 2019-11 Yes 5mg Take 5 mg Un christ[place] 5 mg tablet 0-22 by mouth ity of 20:06: daily. [place] [address] Medical Branch furosemide 2019-11 Yes 20mg Take 20 mg U nivers (LASIX) 40 0-22 by mouth ity o f mg tablet 20:06: daily. [place] [address] Medical Branch pantoprazol 2019-11 Yes 40mg Take 40 mg Univers e 0-22 by mouth ity of (PROTONIX) 20:06: daily. [place] 40 mg EC Medical tablet Branch citalopram 2019-11 Yes 20mg Take 20 mg U nivers (CELEXA) 20 0-22 by mouth ity of mg tablet 20:06: daily. [place] [address] Medical Branch rOPINIRole 2019-11 Yes 2mg Take 2 mg Un christ[place] (REQUIP) 2 0-22 by mouth ity o f mg tablet 20:06: at [place] [address] bedtime. Medical Branch tiZANidine 2019-11 Yes 2mg [...] 0-22 by mouth ity of 20:06: daily. [place] [address] Medical Branch DOCUSATE 2019-11 Yes 1{tbl} Take 1 Tab U nivers CALCIUM 0-22 by mouth ity of (STOOL 20:06: as needed [place] SOFTENER for Medical ORAL) Constipati Branch on. amLODIPine 2019-11 Yes 5mg Take 5 mg Un christ[place] 5 mg tablet 0-22 by mouth ity of 20:06: daily. [place] [address] Medical Branch furosemide 2019-11 Yes 20mg Take 20 mg U nivers (LASIX) 40 0-22 by mouth ity o f mg tablet 20:06: daily. [place] [address] Medical Branch pantoprazol 2019-11 Yes 40mg Take 40 mg Univers e 0-22 by mouth ity of (PROTONIX) 20:06: daily. [place] 40 mg EC Medical tablet Branch citalopram 2019-11 Yes 20mg Take 20 mg U nivers (CELEXA) 20 0-22 by mouth ity of mg tablet 20:06: daily. [place] [address] Medical Branch rOPINIRole 2019-11 Yes 2mg Take 2 mg Un christ[place] (REQUIP) 2 0-22 by mouth ity o f mg tablet 20:06: at [place] [address] bedtime. Medical Branch tiZANidine 2019-11 Yes 2mg [...] 0-22 by mouth ity of 20:06: daily. [place] [address] Medical Branch DOCUSATE 2019-11 Yes 1{tbl} Take 1 Tab U nivers CALCIUM 0-22 by mouth ity of (STOOL 20:06: as needed [place] SOFTENER for Medical ORAL) Constipati Branch on. amLODIPine 2019-11 Yes 5mg Take 5 mg Un [place] 5 mg tablet 0-22 by mouth ity of 20:06: daily. [place] [address] Medical Branch furosemide 2019-11 Yes 20mg Take 20 mg U nivers (LASIX) 40 0-22 by mouth ity o f mg tablet 20:06: daily. [address] Branch pantoprazol 2019-11 Yes 40mg Take 40 mg Univers e 0-22 by mouth ity of (PROTONIX) 20:06: daily. [place] 40 EC Medical tablet Branch citalopram 2019-11 Yes 20mg Take 20 mg U nivers (CELEXA) 20 0-22 by mouth ity of mg tablet 20:06: daily. [place] [address] Medical Branch rOPINIRole 2019-11 Yes 2mg Take 2 mg Un christ[place] (REQUIP) 2 0-22 by mouth ity o f mg tablet 20:06: at [place] [address] bedtime. Medical Branch tiZANidine 2019-11 Yes 2mg [...] 0-22 by mouth ity of 20:06: daily. [place] [address] Medical Branch DOCUSATE 2019-11 Yes 1{tbl} Take 1 Tab U nivers CALCIUM 0-22 by mouth ity of (STOOL 20:06: as needed [place] SOFTENER for Medical ORAL) Constipati Branch on. amLODIPine 2019-11 Yes 5mg Take 5 mg Un [place] 5 mg tablet 0-22 by mouth ity of 20:06: daily. [place] [address] Medical Branch furosemide 2019-11 Yes 20mg Take 20 mg U nivers (LASIX) 40 0-22 by mouth ity o f mg tablet 20:06: daily. [address] Branch pantoprazol 2019-11 Yes 40mg Take 40 mg Univers e 0-22 by mouth ity of (PROTONIX) 20:06: daily. [place] 40 mg EC Medical tablet Branch citalopram 2019-11 Yes 20mg Take 20 mg U nivers (CELEXA) 20 0-22 by mouth ity of mg tablet 20:06: daily. [address] Branch rOPINIRole 2019-11 Yes 2mg Take 2 mg Un christ[place] (REQUIP) 2 0-22 by mouth ity o f mg tablet 20:06: at [place] [address] bedtime. Medical Branch tiZANidine 2019-11 Yes 2mg [...] 0-22 by mouth ity of 20:06: daily. [place] [address] Medical Branch DOCUSATE 2019-11 Yes 1{tbl} Take 1 Tab U nivers CALCIUM 0-22 by mouth ity of (STOOL 20:06: as needed [place] SOFTENER for Medical ORAL) Constipati Branch on. amLODIPine 2019-11 Yes 5mg Take 5 mg Un [place] 5 mg tablet 0-22 by mouth ity of 20:06: daily. [address] Branch furosemide 2019-11 Yes 20mg Take 20 mg U nivers (LASIX) 40 0-22 by mouth ity o f mg tablet 20:06: daily. [place] [address] Medical Branch pantoprazol 2019-11 Yes 40mg Take 40 mg Univers e 0-22 by mouth ity of (PROTONIX) 20:06: daily. [place] 40 mg EC 52 Medical tablet Branch citalopram 2019-11 Yes 20mg Take 20 mg U nivers (CELEXA) 20 0-22 by mouth ity of mg tablet 20:06: daily. [address] Branch rOPINIRole 2019-11 Yes 2mg Take 2 mg Un christ[place] (REQUIP) 2 0-22 by mouth ity o f mg tablet 20:06: at [place] [address] bedtime. Medical Branch tiZANidine 2019-11 Yes 2mg [...] 0-22 by mouth ity of 20:06: daily. [place] [address] Medical Branch DOCUSATE 2019-11 Yes 1{tbl} Take 1 Tab U nivers CALCIUM 0-22 by mouth ity of (STOOL 20:06: as needed [place] SOFTENER for Medical ORAL) Constipati Branch on. amLODIPine 2019-11 Yes 5mg Take 5 mg Un [place] 5 mg tablet 0-22 by mouth ity of 20:06: daily. [place] [address] Medical Branch furosemide 2019-11 Yes 20mg Take 20 mg U nivers (LASIX) 40 0-22 by mouth ity o f mg tablet 20:06: daily. [place] [address] Medical Branch pantoprazol 2019-11 Yes 40mg Take 40 mg Univers e 0-22 by mouth ity of (PROTONIX) 20:06: daily. [place] 40 mg [facility] Medical tablet Branch citalopram 2019-11 Yes 20mg Take 20 mg U nivers (CELEXA) 20 0-22 by mouth ity of mg tablet 20:06: daily. [place] [address] Medical Branch rOPINIRole 2019-11 Yes 2mg Take 2 mg Un christ[place] (REQUIP) 2 0-22 by mouth ity o f mg tablet 20:06: at [place] [address] bedtime. Medical Branch tiZANidine 2019-11 Yes 2mg [...] 0-22 by mouth ity of 20:06: daily. [place] [address] Medical Branch DOCUSATE 2019-11 Yes 1{tbl} Take 1 Tab U nivers CALCIUM 0-22 by mouth ity of (STOOL 20:06: as needed [place] SOFTENER for Medical ORAL) Constipati Branch on. amLODIPine 2019-11 Yes 5mg Take 5 mg Un [place] 5 mg tablet 0-22 by mouth ity of 20:06: daily. [place] [address] Medical Branch furosemide 2019-11 Yes 20mg Take 20 mg U nivers (LASIX) 40 0-22 by mouth ity o f mg tablet 20:06: daily. [place] [address] Medical Branch pantoprazol 2019-11 Yes 40mg Take 40 mg Univers e 0-22 by mouth ity of (PROTONIX) 20:06: daily. [place] 40 [place] [address] Medical tablet Branch citalopram 2019-11 Yes 20mg Take 20 mg U nivers (CELEXA) 20 0-22 by mouth ity of mg tablet 20:06: daily. [place] [address] Medical Branch rOPINIRole 2019-11 Yes 2mg Take 2 mg Un christie (REQUIP) 2 0-22 by mouth ity o f mg tablet 20:06: at [place] [address] bedtime. Medical Branch tiZANidine 2019-11 Yes 2mg [...] 0-22 by mouth ity of 20:06: daily. [place] [address] Medical Branch DOCUSATE 2019-11 Yes 1{tbl} Take 1 Tab U nivers CALCIUM 0-22 by mouth ity of (STOOL 20:06: as needed [place] SOFTENER 52 for Medical ORAL) Constipati Branch on. amLODIPine 2019-11 Yes 5mg Take 5 mg Un christie 5 mg tablet 0-22 by mouth ity of 20:06: daily. [place] 52 Medical Branch amLODIPine 2019-11- No 1{tbl} QD Take 1 UT (Norvasc) 5 0-22 04-25 tablet by He alth MG tablet 00:00: 04:59 mouth 1 00 :00 (one) time each day. amLODIPine 2019-11- No 1{tbl} QD Take 1 [place] (Norvasc) 5 0-22 04-25 tablet by He alth MG tablet 00:00: 04:59 mouth 1 00 :00 (one) time each day. amLODIPine 2019-11- No 1{tbl} QD Take 1 [place] (Norvasc) 5 0-22 04-25 tablet by He alth MG tablet 00:00: 04:59 mouth 1 00 :00 (one) time each day. amLODIPine 2019-11- No 1{tbl} QD Take 1 [place] (Norvasc) 5 0-22 04-25 tablet by He alth MG tablet 00:00: 04:59 mouth 1 00 :00 (one) time each day. clonazePAM 2019-11 Yes Memoria 1 mg tablet 0-20 l 00:00: [place] [id number] clonazePAM 2019-11 Yes Univers 1 mg tablet 0-20 ity of 00:00: [address] clonazePAM 2020 Yes Univers 1 mg tablet 0-20 ity of 00:00: [address] clonazePAM 2020 Yes Univers 1 mg tablet 0-20 ity of 00:00: [address] clonazePAM 2020 Yes Univers 1 mg tablet 0-20 ity of 00:00: [address] clonazePAM 2020 Yes Univers 1 mg tablet 0-20 ity of 00:00: [address] clonazePAM 2020 Yes Univers 1 mg tablet 0-20 ity of 00:00: [address] clonazePAM 2020 Yes Univers 1 mg tablet 0-20 ity of 00:00: [address] clonazePAM 2020- Yes Univers 1 mg tablet 0-20 ity of 00:00: [address] clonazePAM 2020 Yes Univers 1 mg tablet 0-20 ity of 00:00: [address] clonazePAM 2020 Yes Univers 1 mg tablet 0-20 ity of 00:00: [address] clonazePAM 2020 Yes Univers 1 mg tablet 0-20 ity of 00:00: [place] [facility] Branch clonazePAM 2020- Yes Univers 1 mg tablet 0-20 ity of 00:00: [place] [facility] clonazePAM 2020- Yes Univers 1 mg tablet 0-20 ity of 00:00: [place] [facility] clonazePAM 2020- Yes Univers 1 mg tablet 0-20 ity of 00:00: [place] [facility] clonazePAM 2020- Yes Univers 1 mg tablet 0-20 ity of 00:00: [place] [facility] clonazePAM 2020- Yes Univers 1 mg tablet 0-20 ity of 00:00: [place] [facility] clonazePAM 2019- Yes Univers 1 mg tablet 0-20 ity of 00:00: [address] clonazePAM 2020 Yes Univers 1 mg tablet 0-20 ity of 00:00: [place] [facility] clonazePAM 2019-11 Yes Univers 1 mg tablet 0-20 ity of 00:00: [address] clonazePAM 2020 Yes Univers 1 mg tablet 0-20 ity of 00:00: [place] [facility] clonazePAM 2020 Yes Univers 1 mg tablet 0-20 ity of 00:00: [place] [facility] clonazePAM 2019-11 Yes Univers 1 mg tablet 0-20 ity of 00:00: [place] [facility] clonazePAM 2020 Yes Univers 1 mg tablet 0-20 ity of 00:00: [place] [facility] clonazePAM 2020 Yes Univers 1 mg tablet 0-20 ity of 00:00: [address] Branch clonazePAM 2020- Yes Univers 1 mg tablet 0-20 ity of 00:00: [place] [facility] clonazePAM 2020- Yes Univers 1 mg tablet 0-20 ity of 00:00: [place] [facility] clonazePAM 2020- Yes Univers 1 mg tablet 0-20 ity of 00:00: [place] [facility] clonazePAM 2020- Yes Univers 1 mg tablet 0-20 ity of 00:00: [place] [facility] clonazePAM 2020- Yes Univers 1 mg tablet 0-20 ity of 00:00: [address] clonazePAM 2020 Yes Univers 1 mg tablet 0-20 ity of 00:00: [address] clonazePAM 2020- Yes Univers 1 mg tablet 0-20 ity of 00:00: [place] [facility] clonazePAM 2020- Yes Univers 1 mg tablet 0-20 ity of 00:00: [place] 00 [facility] [place] clonazePAM 2020-1 Yes Univers 1 mg tablet 0-20 ity of 00:00: [place] 00 [facility] Branch clonazePAM 2020-1 Yes Univers 1 mg tablet 0-20 ity of 00:00: [place] 00 [facility] AMITIZA 24 2020-0 Yes Memoria mcg capsule 9-14 l 00:00: [place] [facility] 24 2019-0 Yes Univers mcg capsule 9-14 ity of 00:00: [place] [facility] 24 2020-0 Yes Univers mcg capsule 9-14 ity of 00:00: [place] 00 [facility] 24 2020-0 Yes Univers mcg capsule 9-14 ity of 00:00: [address] 24 2020-0 Yes Univers mcg capsule 9-14 ity of 00:00: [address] 24 2020-0 Yes Univers mcg capsule 9-14 ity of 00:00: [address] 24 2020-0 Yes Univers mcg capsule 9-14 ity of 00:00: [address] 24 2020-0 Yes Univers mcg capsule 9-14 ity of 00:00: [address] 24 2020-0 Yes Univers mcg capsule 9-14 ity of 00:00: [address] 24 2020-0 Yes Univers mcg capsule 9-14 ity of 00:00: [place] 00 [facility] 24 2020-0 Yes Univers mcg capsule 9-14 ity of 00:00: [place] 00 [facility] 24 2020-0 Yes Univers mcg capsule 9-14 ity of 00:00: [place] 00 [facility] 24 2020-0 Yes Univers mcg capsule 9-14 ity of 00:00: [place] 00 Medical [facility] 24 2020-0 Yes Univers mcg capsule 9-14 ity of 00:00: [place] 00 [facility] 24 2020-0 Yes Univers mcg capsule 9-14 ity of 00:00: [place] 00 [facility] 24 2020-0 Yes Univers mcg capsule 9-14 ity of 00:00: [place] 00 Medical [facility] 24 2020-0 Yes Univers mcg capsule 9-14 ity of 00:00: [place] 00 Medical [facility] 24 2020-0 Yes Univers mcg capsule 9-14 ity of 00:00: [place] 00 Medical Branch AMITIZA 24 2020-0 Yes Univers mcg capsule 9-14 ity of 00:00: [place] 00 Medical Branch AMITI 24 2020-0 Yes Univers mcg capsule 9-14 ity of 00:00: [place] 00 [facility] Branch AMITIZA 24 2020-0 Yes Univers mcg capsule 9-14 ity of 00:00: [place] 00 Medical Branch AMITIZA 24 2020-0 Yes Univers mcg capsule 9-14 ity of 00:00: [place] 00 Medical Branch AMITIZA 24 2020-0 Yes Univers mcg capsule 9-14 ity of 00:00: [place] 00 Medical Branch AMITIZA 24 2020-0 Yes Univers mcg capsule 9-14 ity of 00:00: [place] 00 Medical Branch AMITIZA 24 2020-0 Yes Univers mcg capsule 9-14 ity of 00:00: [place] 00 Medical Branch AMITIZA 24 2020-0 Yes Univers mcg capsule 9-14 ity of 00:00: [place] 00 Medical Branch AMITIZA 24 2020-0 Yes Univers mcg capsule 9-14 ity of 00:00: [place] 00 Medical Branch AMITI 24 2020-0 Yes Univers mcg capsule 9-14 ity of 00:00: [place] 00 Medical Branch AMITI 24 2020-0 Yes Univers mcg capsule 9-14 ity of 00:00: [place] 00 Medical Branch AMITI 24 2020-0 Yes Univers mcg capsule 9-14 ity of 00:00: [place] 00 Medical Branch AMITI 24 2020-0 Yes Univers mcg capsule 9-14 ity of 00:00: [place] 00 Medical Branch AMITIZA 24 2020-0 Yes Univers mcg capsule 9-14 ity of 00:00: [place] 00 Medical Branch AMITIZA 24 2020-0 Yes Univers mcg capsule 9-14 ity of 00:00: [place] 00 Medical Branch AMITIZA 24 2020-0 Yes Univers mcg capsule 9-14 ity of 00:00: [place] 00 Medical Branch AMITIZA 24 2020-0 Yes Univers mcg capsule 9-14 ity of 00:00: [place] 00 Medical Branch TRINTELLIX 2020-0 No Memoria 20 mg Tab 8-12 l 00:00: [place] TRINTELLIX 2020-0 Yes Univers 20 mg Tab 8-12 ity of 00:00: [place] 00 Medical Branch TRINTELLIX 2020-0 Yes Univers 20 mg Tab 8-12 ity of 00:00: Medical Branch TRINTELLIX 2020-0 Yes Univers 20 mg Tab 8-12 ity of 00:00: [place] [facility] TRINTELLIX 2020-0 Yes Univers 20 mg Tab 8-12 ity of 00:00: Medical Branch TRINTELLIX 2020-0 Yes Univers 20 mg Tab 8-12 ity of 00:00: [place] [facility] TRINTELLIX 2020-0 Yes Univers 20 mg Tab 8-12 ity of 00:00: [place] [facility] TRINTELLIX 2020-0 Yes Univers 20 mg Tab 8-12 ity of 00:00: [place] [facility] TRINTELLIX 2020-0 Yes Univers 20 mg Tab 8-12 ity of 00:00: [place] [facility] TRINTELLIX 2020-0 Yes Univers 20 mg Tab 8-12 ity of 00:00: [place] [facility] TRINTELLIX 2020-0 Yes Univers 20 mg Tab 8-12 ity of 00:00: [place] [facility] TRINTELLIX 2019-0 Yes Univers 20 mg Tab 8-12 ity of 00:00: [place] [facility] TRINTELLIX 2020-0 2020- No Univer s 20 mg Tab 8-12 05-25 ity of 00:00: 00:00 [place] 00 :00 Medical Branch Sodium 2019-0 No 1,000 mL, Memori a Chloride 6-17 1000 l 0.9% 05:02: ml/hr, Mohan (Bolus) IV 00 Infuse Over: 1 hr, Route: IV, 1,000, Drug form: INJ, ONCE, Priority: STAT, Dosing Weight 56.002 kg, Start date: 04/25/20 0:02:00 CDT, Stop date: 04/25/20 0:02:00 CDT, 0 Benadryl No Notes: Memoria 5-14 (Same as: l 18:01: Benadryl) Phenergan No Notes: Memori a 5-14 (Same as: l 18:01: Phenergan) carvedilol Yes 3.125 mg = M emoria 3.13 MG 5-14 1 tab, PO, l Oral Tablet 15:32: BID, # 60 H ermann [Coreg] 00 tab, 0 Refill(s) Coreg 3.125 2020-0 Yes 3.125 mg = Memoria mg oral 5-14 1 tab, PO, l tablet 15:32: BID, # 60 Salvatore n 00 tab, 0 Refill(s) lisinopril 2020-0 Yes 20 mg = 1 Me moria 20 mg oral 5-14 tab, PO, l tablet 15:31: Daily, # Mohan 00 90 tab, 3 Refill(s) gabapentin 2019-0 No Notes: Memor ia 300 MG Oral 5-14 (Same as: l Capsule 02:00: Neurontin) Herm gabriel 00 Acetaminoph 2020-0 Yes 1,000 mg = Memoria en 500 [...] tab, PO, l tablet 23:13: Daily, # [place] 00 90 tab, 3 Refill(s) carvedilol 2019-0 [...] gm/day). (Same as: Tylenol Extra Strength) Hydromorpho 2019-0 No Notes: Mj chadwick ne 5-13 (Same as: l 22:18: Dilaudid) Mohan 00 Lisinopril 2019-0 No Notes: Memor ia 5-13 (Same as: l 19:48: Prinivil, Mohan 00 Zestril) Lidocaine 2019-0 Yes Notes: Memori a Hydrochlori 5-13 (Same as: l de 10 MG/ML 15:11: Xylocaine) [place] Injectable 00 Solution Versed No Notes: Memoria 5-13 (Same as: l 15:11: Versed) Mohan 00 MEDICATION WASTE Product Size: 2 mg Product Wasted: ___ mg Lisinopril 2019- No Notes: Memor ia 5-13 (Same as: l 14:00: Prinivil, [place] Zestril) Lisinopril 2019-0 No Notes: Memor ia 5-13 (Same as: l 11:54: Prinivil, Mohan Zestril) carvedilol No Notes: Memor ia 5-13 Give with l 02:00: food. Mohan (Same As: Coreg) Valproic No Notes: Memoria Acid 250 MG 5-12 (Same As: l Oral 22:00: Depakene) [place] Capsule 00 (Do Not Crush) Hazardous Drug Group 3:Reproduc tive risk Hazardous Drug -- Refer to safe handling procedure PPE Matrix Hydralazine No Notes: Mj chadwick Hydrochlori 5-12 (Same as: l de 50 MG 21:52: Apresoline Her bailey Oral Tablet 00 ) May interfere w/enteral feedings Take With Food Iohexol No Notes: Memoria 5-12 (same l 17:51: as:Omnipaq ue 350). WASTE: F/P - Black; E - Municipal Trash Bin Lisinopril No Notes: Memor ia 5-12 (Same as: l 14:46: Prinivil, [place] Zestril) carvedilol 0 No Notes: Memor ia 5-12 Give with l 14:00: food. Mohan (Same As: Coreg) Lovenox 2019-0 No Notes: Memoria 5-12 (Same as: l 14:00: Lovenox) [place] Potassium 2019-0 No Notes: Memori a Chloride 5-12 (Same as: l 07:56: KCL) Infuse no faster than 10 mEq/hr if given peripheral ly. sodium 2019-0 No Notes: Memoria phosphate 5-12 Infuse l 07:56: over 4 Mohan 00 hour. Do not infuse phosphorou s concurrent ly in the same line as TPN or IVF that contains calcium. For double lumen central lines, phosphorou s may be infused in a separate lumen from TPN. potassium 2019- No Notes: Memori a phosphate -12 (Same as: l 07:56: K Mohan Phosphate. ) Do not infuse phosphorou s concurrent ly in the same line as TPN or IVF that contains calcium. For double lumen central lines, phosphorou s may be infused in a separate lumen from TPN. 1 mMol phoshate has 1.47 mEq potassium Infuse over 4 hours potassium 2019-0 No Notes: Memori a phosphate-s - (Same as: l odium 07:56: Phos-NaK) Mohan phosphate 00 Each 1.5 250 mg-280 gm pkt has mg-160 mg 250mg oral powder phosphorou for s. Mix reconstitut w/2.5oz ion water and stir. Magnesium No Notes: Memori a Sulfate 03-20 WASTE: F/P l 07:56: - Sink; E - Municipal Trash Bin Magnesium 2019- No Notes: Memori a Oxide - (Same as: l 07:56: Mag-Ox [place] 00 400) Magnesium oxide [id number] g elemental magnesium Dose=____m g magnesium oxide (___mg elemental magnesium) Calcium No Notes: Memoria Gluconate 03-20 WASTE: F/P l 07:56: - Sink; E - Municipal Trash Bin Calcium 2019- No Notes: Memoria Carbonate - (Same As: l 500 MG 07:56: Tums) [place] Chewable 00 Calcium Tablet Carbonate 500 mg = 200 mg elemental calcium Dose = mg calcium carbonate ( mg elemental calcium) atorvastati 2019-0 No Notes: Mj chadwick n - (Same As: l 02:00: Lipitor) ropinirole 2019- No Notes: Memor ia -12 (Same as: l 02:00: Requip) Dilaudid 2019-0 No Notes: Memoria 5-11 (Same as: l 20:30: Dilaudid) Lisinopril 2020-0 No Notes: Memor ia 5-11 (Same as: l 20:29: Prinivil, Zestril) vortioxetin 2020-0 Yes 20 mg = 1 M emoria e 20 MG 5-11 tab, PO, l Oral Tablet 20:25: Daily, # He rmann [Trintellix 00 90 tab, 0 ] Refill(s) clonazePAM 2020-0 Yes 1 mg = 1 Mem oria 1 mg oral 5-11 tab, PO, l tablet 20:25: TID, PRN Mohan 00 Anxiety, # 90 tab, 0 Refill(s) pantoprazol 2020-0 Yes 40 mg = 1 M emoria e 40 mg 5-11 tab, PO, l oral 20:25: Daily, # [place] enteric 00 90 tab, 0 coated Refill(s) tablet trazodone 2019-0 No 150 mg = 1 Me moria 150 mg oral 5-11 tab, PO, l tablet 20:25: Bedtime, # Donna nn 00 90 tab, 0 Refill(s) Hydromorpho 2020-0 Yes 4 mg = 1 Me moria ne 5-11 tab, PO, l Hydrochlori 20:25: TID, # 42 H ermann de 4 MG 00 tab, 0 Oral Tablet Refill(s) [Dilaudid] levothyroxi 2019-0 Yes 50 Memori a ne 50 mcg 5-11 microgram l (0.05 mg) 20:25: = 1 tab, Herm gabriel oral tablet 00 PO, QAM, # 90 tab, 0 Refill(s) Lexapro 2019-0 No Notes: Memoria 5-11 (Same as: l 17:00: Lexapro) Clonazepam 2019-0 No Notes: Memor ia 5-11 (Same As: l 14:20: KlonoPIN) [facility] Group 3:Reproduc tive risk Hazardous Drug -- Refer to safe handling procedure PPE Matrix pantoprazol 2020-0 No 20 mg, 1 Me moria e 5-11 tab, l 14:00: Route: PO, Drug form: ECTAB, Daily, Dosing Weight 63.6, kg, Start date: 03/19/20 9:00:00 CDT, Duration: 30 day, Stop date: 04/17/20 9:00:00 CDT Trintellix 2019- No 10 mg, 1 Mem oria 5-11 tab, l 14:00: Route: PO, [place] Drug form: TAB, Daily, Dosing Weight 63.6, kg, Start date: 03/19/20 9:00:00 CDT, Duration: 30 day, Stop date: 04/17/20 9:00:00 CDT Hydralazine No Notes: Mj chadwick Hydrochlori -11 (Same as: l de 50 MG 13:00: Apresoline Her bailey Oral Tablet ) May interfere w/enteral feedings Take With Food ropinirole No Notes: Memor ia -11 (Same as: l 12:42: Requip) Mohan Thyroxine No Notes: Memori a 5-11 Take 1 l 12:30: hour Mohan before or 2 hours after meal; Enteral feeds may interefere with the absorption of this medication .(Same as:Levothr oid, Synthroid) Acetaminoph No Notes: Do M emoria en 300 MG / -11 not exceed l Codeine 11:22: 4gm/day of Herm gabriel acetaminop 30 MG Oral hen. (Same Tablet as: [Tylenol Tylenol with with Codeine #3] Codeine # 3) Nitroglycer No Notes: Mj chadwick in - (Same l 11:20: as:Nitroqu ick, Nitrostat) "Do Not Crush" Sublingual tablet Ativan No Notes: Memoria 5-11 (Same as: l 11:20: Ativan) Hydralazine No Notes: Mj chadwick 5-11 (Same as: l 10:26: Apresoline [place] ) Push over 5 minutes Keppra 2019-0 No 1,000 mg, Memori a 5-11 Route: l 10:09: IVPB, Drug form: INJ, ONCE, Dosing Weight 63.6, kg, Loading Dose, Priority: STAT, Start date: 03/19/20 5:09:00 CDT, Stop date: 03/19/20 5:09:00 CDT Keppra 2019- No 1,000 mg, Memori a 5- Route: l 10:06: IVPB, Drug form: INJ, [...] 4 mg Product Wasted: ___ mg Aspirin No 324 mg, Memoria 5-11 Route: l 06:52: CHEW, Drug form: CHEWTAB, ONCE, Dosing Weight 64.3, kg, Priority: STAT, Start date: 03/19/20 1:52:00 CDT, Stop date: 03/19/20 1:52:00 CDT Ativan No Notes: Memoria 5-11 (Same as: l 05:28: Ativan) atorvastati 2018-11 Yes Take 20 mg Memoria n 20 mg 0-10 by mouth. l tablet 00:00: atorvastati 2018-11 Yes 20mg Take 20 mg Univers n 20 mg 0-10 by mouth. ity of tablet 00:00: [address] [place] [address] atorvastati 2018-11 Yes 20mg Take 20 mg Univers n 20 mg 0-10 by mouth. ity of tablet 00:00: [place] [facility] atorvastati 2018-11 Yes 20mg Take 20 mg Univers n 20 mg 0-10 by mouth. ity of tablet 00:00: [facility] atorvastati 2018-11 Yes 20mg Take 20 mg Univers n 20 mg 0-10 by mouth. ity of tablet 00:00: [place] [facility] atorvastati 2018-11 Yes 20mg Take 20 mg Univers n 20 mg 0-10 by mouth. ity of tablet 00:00: [place] [facility] 2018-11 Yes 20mg Take 20 mg Univers n 20 mg 0-10 by mouth. ity of tablet 00:00: [facility] 2018-11 Yes 20mg Take 20 mg Univers n 20 mg 0-10 by mouth. ity of tablet 00:00: [facility] 2018-11 Yes 20mg Take 20 mg Univers n 20 mg 0-10 by mouth. ity of tablet 00:00: [place] [facility] 2018-11 Yes 20mg Take 20 mg Univers n 20 mg 0-10 by mouth. ity of tablet 00:00: [place] [facility] 2018-11 Yes 20mg Take 20 mg Univers n 20 mg 0-10 by mouth. ity of tablet 00:00: [place] [facility] 2018-11 Yes 20mg Take 20 mg Univers n 20 mg 0-10 by mouth. ity of tablet 00:00: [place] [facility] 2018-11 Yes 20mg Take 20 mg Univers n 20 mg 0-10 by mouth. ity of tablet 00:00: [place] [facility] 2018-11 Yes 20mg Take 20 mg Univers n 20 mg 0-10 by mouth. ity of tablet 00:00: [place] [facility] 2018-11 Yes 20mg Take 20 mg Univers n 20 mg 0-10 by mouth. ity of tablet 00:00: [place] [facility] 2018-11 Yes 20mg Take 20 mg Univers n 20 mg 0-10 by mouth. ity of tablet 00:00: [place] [facility] 2018-11 Yes 20mg Take 20 mg Univers n 20 mg 0-10 by mouth. ity of tablet 00:00: [place] [facility] 2018-11 Yes 20mg Take 20 mg Univers n 20 mg 0-10 by mouth. ity of tablet 00:00: [place] [facility] 2018-11 Yes 20mg Take 20 mg Univers n 20 mg 0-10 by mouth. ity of tablet 00:00: [place] [facility] 2018-11 Yes 20mg Take 20 mg Univers n 20 mg 0-10 by mouth. ity of tablet 00:00: [place] [facility] Yes 20mg Take 20 mg Univers n 20 mg 0-10 by mouth. ity of tablet 00:00: [facility] 2018-11 Yes 20mg Take 20 mg Univers n 20 mg 0-10 by mouth. ity of tablet 00:00: [facility] 2018-11 Yes 20mg Take 20 mg Univers n 20 mg 0-10 by mouth. ity of tablet 00:00: [place] [facility] 2018-11 Yes 20mg Take 20 mg Univers n 20 mg 0-10 by mouth. ity of tablet 00:00: [place] [facility] 2018-11 Yes 20mg Take 20 mg Univers n 20 mg 0-10 by mouth. ity of tablet 00:00: [place] [facility] 2018-11 Yes 20mg Take 20 mg Univers n 20 mg 0-10 by mouth. ity of tablet 00:00: [place] [facility] 2018-11 Yes 20mg Take 20 mg Univers n 20 mg 0-10 by mouth. ity of tablet 00:00: [place] [facility] 2018-11 Yes 20mg Take 20 mg Univers n 20 mg 0-10 by mouth. ity of tablet 00:00: [place] [facility] 2018-11 Yes 20mg Take 20 mg Univers n 20 mg 0-10 by mouth. ity of tablet 00:00: [place] [facility] 2018-11 Yes 20mg Take 20 mg Univers n 20 mg 0-10 by mouth. ity of tablet 00:00: [place] [facility] 2018-11 Yes 20mg Take 20 mg Univers n 20 mg 0-10 by mouth. ity of tablet 00:00: [place] [facility] 2018-11 Yes 20mg Take 20 mg Univers n 20 mg 0-10 by mouth. ity of tablet 00:00: [place] [facility] 2018-11 Yes 20mg Take 20 mg Univers n 20 mg 0-10 by mouth. ity of tablet 00:00: [place] [facility] Yes 20mg Take 20 mg Univers n 20 mg 0-10 by mouth. ity of tablet 00:00: [place] [facility] 2018-11 Yes 20mg Take 20 mg Univers n 20 mg 0-10 by mouth. ity of tablet 00:00: [address] ondansetron No Route: IV, Memoria (ANES) 08-03 [...] ONCE, Stop date: 08/03/19 16:51:00 CDT midazolam No Route: IV, Me moria (ANES) 08-03 [...] Stop date: 08/03/19 16:30:00 CDT 1/2 NS No 1,000 mL, Memori a 1,000 [...] 5 mg Product Wasted: ___ mg Probiotic 2019- Yes 1 cap, PO, Me moria Formula 9-25 Daily, 0 l oral 16:26: Refill(s) [place] capsule 00 Magnesium 2019-0 Yes 400 mg, Memor ia Sulfate 9-25 PO, ONCE, l 16:25: 0 Mohan 00 Refill(s) biotin 1000 2019- Yes 1,000 Memor ia mcg oral 9-25 microgram l tablet 16:24: = 1 tab, [place] 00 PO, Daily, # 30 tab, 0 Refill(s) Non-Formula 2018- Yes 1 cap, PO, Memoria ry Home 9-25 Daily, l Medication 16:24: Refill(s) He rmann 00 0 Folic Acid 2018- Yes 0.4 mg = 1 M emoria 0.4 MG Oral 9-25 tab, PO, l Tablet 16:23: Daily, # [place] 00 100 tab, 0 Refill(s) Vitamin 2019-0 Yes 5,000 Memoria B-12 5000 9-25 microgram l mcg 16:23: = 1 tab, [place] sublingual 00 SL, Daily, tablet 0 Refill(s) Zyrtec 2019 Yes 5 mg, Memoria 9-25 Daily, 0 l 16:21: Refill(s) [place] 00 Promethazin Yes 25 mg = 1 M emoria e 9-25 tab, PO, l Hydrochlori 16:14: Q12H, PRN H ermann de 25 MG 00 for motion Oral Tablet sickness, # 60 tab, 0 Refill(s) clonazePAM 2019- Yes 1 mg = 1 Mem oria 1 mg oral 9-25 tab, PO, l tablet 16:13: PRN, PRN [place] 00 Anxiety, # 30 tab, 0 Refill(s) rOPINIRole 2019-0 Yes 2 mg = 1 Mem oria 2 mg oral 9-25 tab, PO, l tablet 16:12: Bedtime, # Donna nn 00 90 tab, 1 Refill(s) Trazodone 2018-0 Yes 100 mg = 1 Me moria Hydrochlori 9-25 tab, PO, l de 100 MG 16:11: Bedtime, # He rmann Oral Tablet 00 30 tab, 0 Refill(s) pantoprazol 2019-0 Yes 20 mg = 1 M emoria e 20 mg 9-25 tab, PO, l oral 16:10: Daily, # Mohan enteric 00 30 tab, 1 coated Refill(s) tablet Sodium 2019-0 No 250 mL, Memoria Chloride 9-25 Rate: To l 0.9% 11:00: prime line Mohan (titrate) 00 and flush 250 mL remaining blood products., Dosing Weight 70.1, kg, Route: IV, Total Volume: 250, Start Date: 08/03/19 6:00:00 CDT, Duration: 1 day, Stop date: 08/04/19 5:59:00 CDT, Replace Every: 24 hr, 0 Albuterol 2018-0 Yes P[place]ani EVERY 4 Mem oria Neb 7-17 [place] HOURS l 00:00: RESPIRATOR Y Albuterol 0 Yes [place]ani TWICE Memor ia Sulfate 7-17 [place] DAILY l 00:00: NEEDED PRN For Shortness Of Breath Albuterol 2018-0 Yes TWICE Memoria Sulfate 7-15 DAILY l 00:00: NEEDED PRN For Shortness Of Breath Atomoxetine 2018-0 Yes DAILY Memor ia Hcl 7-15 l 00:00: Carvedilol 2018-0 Yes TWICE Memori a 7-15 DAILY l 00:00: Citalopram 2018-0 Yes DAILY Memori a Hydrobromid 7-15 l e 00:00: Furosemide 2019-0 Yes DAILY Memori a 7-15 l 00:00: Hydralazine 2018-0 Yes THREE Memor ia Hcl 7-15 TIMES A l 00:00: DAY Lisinopril 2018-0 Yes DAILY Memori a 7-15 l 00:00: Isosorbide 2019-0 Yes THREE Memori a Dinit 7-15 TIMES A l 00:00: DAY Tizanidine 2018-0 Yes TWICE Memori a Hcl 7-15 DAILY l 00:00: Metoprolol 2018-0 Yes DAILY Memori a Succinate 5-29 l 00:00: Vortioxetin 2018-0 Yes TWICE Memor ia e 5-29 DAILY [...] -acetaminop 5-08 tablet by ity of hen ([email or web address]) 14:50: mouth [place] 7.5-325 mg 10 every 6 Medica l per tablet (six) Branch hours as needed for Pain. HYDROcodone 2018-0 Yes 1{tbl} Take 1 Un christie -acetaminop 5-08 tablet by ity of hen ([email or web address]) 14:50: mouth [place] 7.5-325 mg 10 every 6 Medica l per tablet (six) Branch hours as needed for Pain. HYDROcodone 2018-0 Yes 1{tbl} Take 1 Un christie -acetaminop 5-08 tablet by ity of hen ([email or web address]) 14:50: mouth [place] 7.5-325 mg 10 every 6 Medica l per tablet (six) Branch hours as needed for Pain. HYDROcodone 2018-0 Yes 1{tbl} Take 1 Un christie -acetaminop 5-08 tablet by ity of hen ([email or web address]) 14:50: mouth [place] 7.5-325 mg 10 every 6 Medica l per tablet (six) Branch hours as needed for Pain. HYDROcodone 2018-0 Yes 1{tbl} Take 1 Un christie -acetaminop 5-08 tablet by ity of hen ([email or web address]) 14:50: mouth [place] 7.5-325 mg 10 every 6 Medica l per tablet (six) Branch hours as needed for Pain. HYDROcodone 2018-0 Yes 1{tbl} Take 1 Un christie -acetaminop 5-08 tablet by ity of hen ([email or web address]) 14:50: mouth [place] 7.5-325 mg 10 every 6 Medica l per tablet (six) Branch hours as needed for Pain. HYDROcodone 2018-0 Yes 1{tbl} Take 1 Un christie -acetaminop 5-08 tablet by ity of hen ([email or web address]) 14:50: mouth [place] 7.5-325 mg 10 every 6 Medica l per tablet (six) Branch hours as needed for Pain. HYDROcodone 2018-0 Yes 1{tbl} Take 1 Un christie -acetaminop 5-08 tablet by ity of hen [employer]) 14:50: mouth [place] 7.5-325 mg 10 every 6 Medica l per tablet (six) Branch hours as needed for Pain. HYDROcodone 2018-0 Yes 1{tbl} Take 1 Un christie -acetaminop 5-08 tablet by ity of hen [employer]) 14:50: mouth [place] 7.5-325 mg 10 every 6 Medica l per tablet (six) Branch hours as needed for Pain. HYDROcodone 2018-0 Yes 1{tbl} Take 1 Un christie -acetaminop 5-08 tablet by ity of hen [employer]) 14:50: mouth [place] 7.5-325 mg 10 every 6 Medica l per tablet (six) Branch hours as needed for Pain. HYDROcodone 2018-0 Yes 1{tbl} Take 1 Un christie -acetaminop 5-08 tablet by ity of hen ([email or web address]) 14:50: mouth [place] 7.5-325 mg 10 every 6 Medica l per tablet (six) Branch hours as needed for Pain. HYDROcodone 2018-0 Yes 1{tbl} Take 1 Un christie -acetaminop 5-08 tablet by ity of hen ([email or web address]) 14:50: mouth [place] 7.5-325 mg 10 every 6 Medica l per tablet (six) Branch hours as needed for Pain. HYDROcodone 2018-0 Yes 1{tbl} Take 1 Un christie -acetaminop 5-08 tablet by ity of hen ([email or web address]) 14:50: mouth [place] 7.5-325 mg 10 every 6 Medica l per tablet (six) Branch hours as needed for Pain. DOCUSATE 2018-0 Yes 1{tbl} Take 1 Tab U nivers CALCIUM 5-08 by mouth ity of (STOOL 14:49: as needed [place] SOFTENER 02 for Medical ORAL) Constipati Branch on. lisinopril 2018-0 Yes Take by Univ ers (PRINIVIL,Z 5-08 [...] Medical Branch lisinopril 0 Yes Take by Univ ers (PRINIVIL,Z 5-08 mouth ity of ESTRIL) 40 14:49: daily. [place] mg tablet Medical Branch multivitami Yes 1{tbl} Take 1 Tab Univers n tablet 5-08 by mouth ity of 14:49: daily. Medical Branch lisinopril 2017-0 Yes Take by Univ ers (PRINIVIL,Z 5-08 mouth ity of ESTRIL) 40 14:49: daily. [place] mg tablet Medical Branch multivitami 0 Yes 1{tbl} Take [...] 5-08 by mouth ity of 14:49: daily. [facility] Branch lisinopril Yes Take by Univ ers (PRINIVIL,Z 5-08 mouth ity of ESTRIL) 40 14:49: daily. [place] mg tablet [facility] Branch multivitami Yes 1{tbl} Take 1 Tab Univers n tablet 5-08 by mouth ity of 14:49: daily. [facility] Branch lisinopril Yes Take by Univ ers (PRINIVIL,Z 5-08 mouth ity of ESTRIL) 40 14:49: daily. [place] mg tablet [facility] Branch multivitami Yes 1{tbl} Take 1 Tab Univers n tablet 5-08 by mouth ity of 14:49: daily. [facility] Branch lisinopril Yes Take by Univ ers (PRINIVIL,Z 5-08 mouth ity of ESTRIL) 40 14:49: daily. [place] mg tablet [facility] multivitami Yes 1{tbl} Take 1 Tab Univers n tablet 5-08 by mouth ity of 14:49: daily. [place] [facility] Branch lisinopril Yes Take by Univ ers (PRINIVIL,Z 5-08 mouth ity of ESTRIL) 40 14:49: daily. [place] mg tablet [facility] multivitami Yes 1{tbl} Take 1 Tab Univers n tablet 5-08 by mouth ity of 14:49: daily. [facility] lisinopril Yes Take by Univ ers (PRINIVIL,Z 5-08 mouth ity of ESTRIL) 40 14:49: daily. [place] mg tablet [facility] multivitami Yes 1{tbl} Take 1 Tab Univers n tablet 5-08 by mouth ity of 14:49: daily. [facility] Branch lisinopril Yes Take by Univ ers (PRINIVIL,Z 5-08 mouth ity of ESTRIL) 40 14:49: daily. [place] mg tablet [facility] furosemide Yes 20mg Take 20 mg U nivers (LASIX) 40 5-08 by mouth ity o f mg tablet 14:49: daily. Medical Branch pantoprazol Yes 40mg Take 40 mg Univers e 5-08 by mouth ity of (PROTONIX) 14:49: daily. [place] 40 mg EC Medical tablet Branch citalopram Yes 20mg Take 20 mg U nivers (CELEXA) 20 5-08 by mouth ity of mg tablet 14:49: daily. [place] [facility] Branch traZODONE Yes 50mg Take 50 mg Un christie (DESYREL) 5-08 by mouth ity of 50 mg 14:49: at [facility] 02 bedtime. Medical Branch rOPINIRole Yes 2mg Take 2 mg Un christie (REQUIP) 2 5-08 by mouth ity o f mg tablet 14:49: at [place] bedtime. Medical Branch tiZANidine Yes 2mg Take [...] 5-08 by mouth ity of 14:49: daily. [place] [facility] BIOTIN ORAL Yes 1{tbl} Take 1 Tab Univers 5-08 by mouth ity of 14:49: daily. [place] [facility] levothyroxi Yes TAKE 1 Mj chadwick ne 25 mcg 5-08 TABLET BY l tablet 00:00: MOUTH IN [place] [id number] THE MORNING levothyroxi Yes [id number] TAKE 1 Univers ne 25 mcg 5-08 TABLET BY ity o f tablet 00:00: MOUTH IN [place] THE Medical MORNING Branch levothyroxi Yes [id number] TAKE 1 Univers ne 25 mcg 5-08 TABLET BY ity o f tablet 00:00: MOUTH IN [place] THE Medical MORNING Branch levothyroxi Yes [id number] TAKE 1 Univers ne 25 mcg 5-08 TABLET BY ity o f tablet 00:00: MOUTH IN [place] THE Medical MORNING Branch levothyroxi 2018-0 Yes [id number] TAKE 1 Univers ne 25 mcg 5-08 TABLET BY ity o f tablet 00:00: MOUTH IN [place] 00 THE Medical MORNING Branch levothyroxi 2018-0 Yes [id number] TAKE 1 Univers ne 25 mcg 5-08 TABLET BY ity o f tablet 00:00: MOUTH IN [place] 00 THE Medical MORNING Branch levothyroxi 2018-0 Yes [id number] TAKE 1 Univers ne 25 mcg 5-08 TABLET BY ity o f tablet 00:00: MOUTH IN [place] 00 THE Medical MORNING Branch levothyroxi 2018-0 Yes [id number] TAKE 1 Univers ne 25 mcg 5-08 TABLET BY ity o f tablet 00:00: MOUTH IN [place] 00 THE Medical MORNING Branch levothyroxi 2018-0 Yes [id number] TAKE 1 Univers ne 25 mcg 5-08 TABLET BY ity o f tablet 00:00: MOUTH IN [place] 00 THE Medical MORNING Branch levothyroxi 2018-0 Yes [id number] TAKE 1 Univers ne 25 mcg 5-08 TABLET BY ity o f tablet 00:00: MOUTH IN [place] 00 THE Medical MORNING Branch levothyroxi 2018-0 Yes [id number] TAKE 1 Univers ne 25 mcg 5-08 TABLET BY ity o f tablet 00:00: MOUTH IN [place] 00 THE Medical MORNING Branch levothyroxi 2018-0 Yes [id number] TAKE 1 Univers ne 25 mcg 5-08 TABLET BY ity o f tablet 00:00: MOUTH IN [place] 00 THE Medical MORNING Branch levothyroxi 2018-0 Yes [id number] TAKE 1 Univers ne 25 mcg 5-08 TABLET BY ity o f tablet 00:00: MOUTH IN [place] 00 THE Medical MORNING Branch levothyroxi 2018-0 Yes [id number] TAKE 1 Univers ne 25 mcg 5-08 TABLET BY ity o f tablet 00:00: MOUTH IN [place] 00 THE Medical MORNING Branch levothyroxi 2018-0 Yes [id number] TAKE 1 Univers ne 25 mcg 5-08 TABLET BY ity o f tablet 00:00: MOUTH IN [place] 00 THE Medical MORNING Branch levothyroxi 2018-0 Yes [id number] TAKE 1 Univers ne 25 mcg 5-08 TABLET BY ity o f tablet 00:00: MOUTH IN [place] 00 THE Medical MORNING Branch levothyroxi 2018-0 Yes [id number] TAKE 1 Univers ne 25 mcg 5-08 TABLET BY ity o f tablet 00:00: MOUTH IN [place] 00 THE Medical MORNING Branch levothyroxi 2018-0 Yes [id number] TAKE 1 Univers ne 25 mcg 5-08 TABLET BY ity o f tablet 00:00: MOUTH IN [place] 00 THE Medical MORNING Branch levothyroxi 2018-0 Yes [id number] TAKE 1 Univers ne 25 mcg 5-08 TABLET BY ity o f tablet 00:00: MOUTH IN [place] 00 THE Medical MORNING Branch levothyroxi 2018-0 Yes [id number] TAKE 1 Univers ne 25 mcg 5-08 TABLET BY ity o f tablet 00:00: MOUTH IN [place] 00 THE Medical MORNING Branch levothyroxi 2018-0 Yes [id number] TAKE 1 Univers ne 25 mcg 5-08 TABLET BY ity o f tablet 00:00: MOUTH IN [place] 00 THE Medical MORNING Branch levothyroxi 2018-0 Yes [id number] TAKE 1 Univers ne 25 mcg 5-08 TABLET BY ity o f tablet 00:00: MOUTH IN [place] 00 THE Medical MORNING Branch levothyroxi 2018-0 Yes [id number] TAKE 1 Univers ne 25 mcg 5-08 TABLET BY ity o f tablet 00:00: MOUTH IN [place] 00 THE Medical MORNING Branch levothyroxi 2018-0 Yes [id number] TAKE 1 Univers ne 25 mcg 5-08 TABLET BY ity o f tablet 00:00: MOUTH IN [place] 00 THE Medical MORNING Branch levothyroxi 2018-0 Yes [id number] TAKE 1 Univers ne 25 mcg 5-08 TABLET BY ity o f tablet 00:00: MOUTH IN [place] 00 THE Medical MORNING Branch levothyroxi 2018-0 Yes [id number] TAKE 1 Univers ne 25 mcg 5-08 TABLET BY ity o f tablet 00:00: MOUTH IN [place] 00 THE Medical MORNING Branch levothyroxi 2018-0 Yes [id number] TAKE 1 Univers ne 25 mcg 5-08 TABLET BY ity o f tablet 00:00: MOUTH IN [place] 00 THE Medical MORNING Branch levothyroxi 2018-0 Yes [id number] TAKE 1 Univers ne 25 mcg 5-08 TABLET BY ity o f tablet 00:00: MOUTH IN [place] 00 THE Medical MORNING Branch levothyroxi 2018-0 Yes [id number] TAKE 1 Univers ne 25 mcg 5-08 TABLET BY ity o f tablet 00:00: MOUTH IN [place] 00 THE Medical MORNING Branch levothyroxi 2018-0 Yes [id number] TAKE 1 Univers ne 25 mcg 5-08 TABLET BY ity o f tablet 00:00: MOUTH IN [place] 00 THE Medical MORNING Branch levothyroxi 2017-0 Yes [id number] TAKE 1 Univers ne 25 mcg 5-08 TABLET BY ity o f tablet 00:00: MOUTH IN [place] 00 THE Medical MORNING Branch levothyroxi 2017-0 Yes [id number] TAKE 1 Univers ne 25 mcg 5-08 TABLET BY ity o f tablet 00:00: MOUTH IN [place] 00 THE Medical MORNING Branch levothyroxi 2017-0 Yes [id number] TAKE 1 Univers ne 25 mcg 5-08 TABLET BY ity o f tablet 00:00: MOUTH IN [place] 00 THE Medical MORNING Branch levothyroxi Yes [id number] TAKE 1 Univers ne 25 mcg 5-08 TABLET BY ity o f tablet 00:00: MOUTH IN [place] 00 THE Medical MORNING Branch levothyroxi 2017- Yes [id number] TAKE 1 Univers ne 25 mcg 5-08 TABLET BY ity o f tablet 00:00: MOUTH IN [place] 00 THE Medical MORNING Branch levothyroxi 2017-0 Yes [id number] TAKE 1 Univers ne 25 mcg 5-08 TABLET BY ity o f tablet 00:00: MOUTH IN [place] 00 THE Medical MORNING Branch levothyroxi 2017-0 Yes [id number] TAKE 1 [facility] 25 mcg 5-08 TABLET BY ity o f tablet 00:00: MOUTH IN [place] 00 THE Medical MORNING Branch metoprolol [...] EC - by mouth ity of tablet 18:23: daily. Medical Branch acetaminoph Yes Take by Uni vers en 08-04 mouth ity of (TYLENOL) 18:23: every 6 [place] 325 mg 06 (six) Medical tablet hours as Branch needed for Pain (scale 1-3). aspirin 81 Yes 81mg Take 81 mg U nivers mg EC - by mouth ity of tablet 18:23: daily. Medical Branch acetaminoph 2016-0 Yes Take by Uni vers en 08-04 mouth ity of (TYLENOL) 18:23: every 6 [place] 325 mg 06 (six) Medical tablet hours as Branch needed for Pain (scale 1-3). aspirin 81 2016-0 Yes 81mg Take 81 mg U nivers mg EC 9-26 by mouth ity of tablet 18:23: daily. [address] acetaminoph 0 Yes Take by Uni vers en 08-04 mouth ity of (TYLENOL) 18:23: every 6 [place] 325 mg 06 (six) Medical tablet hours as Branch needed for Pain (scale 1-3). aspirin 81 2016-0 Yes 81mg Take 81 mg U nivers mg EC 9-26 by mouth ity of tablet 18:23: daily. [address] acetaminoph Yes Take by Uni vers en 08-04 mouth ity of (TYLENOL) 18:23: every 6 [place] 325 mg 06 (six) Medical tablet hours as Branch needed for Pain (scale 1-3). aspirin 81 2015-0 Yes 81mg Take 81 mg U nivers mg EC 9-26 by mouth ity of tablet 18:23: daily. [address] acetaminoph Yes Take by Uni vers en 08-04 mouth ity of (TYLENOL) 18:23: every 6 [place] 325 mg 06 (six) Medical tablet hours as Branch needed for Pain (scale 1-3). aspirin 81 2015-0 Yes 81mg Take 81 mg U nivers mg EC 9-26 by mouth ity of tablet 18:23: daily. [address] acetaminoph Yes Take by Uni vers en 08-04 mouth ity of (TYLENOL) 18:23: every 6 [place] 325 mg 06 (six) Medical tablet hours as Branch needed for Pain (scale 1-3). aspirin 81 2016-0 Yes 81mg Take 81 mg U nivers mg EC 9-26 by mouth ity of tablet 18:23: daily. [address] acetaminoph 0 Yes Take by Uni vers en 08-04 mouth ity of (TYLENOL) 18:23: every 6 [place] 325 mg 06 (six) Medical tablet hours as Branch needed for Pain (scale 1-3). aspirin 81 2016-0 Yes 81mg Take 81 mg U nivers mg EC 9-26 by mouth ity of tablet 18:23: daily. [place] [facility] Yes Take by Uni vers en 08-04 mouth ity of (TYLENOL) 18:23: every 6 [place] 325 mg 06 (six) Medical tablet hours as Branch needed for Pain (scale 1-3). aspirin 81 0 Yes 81mg Take 81 mg U nivers mg EC 9-26 by mouth ity of tablet 18:23: daily. [address] Yes Take by Uni vers en 08-04 mouth ity of (TYLENOL) 18:23: every 6 [place] 325 mg 06 (six) Medical tablet hours as Branch needed for Pain (scale 1-3). aspirin 81 Yes 81mg Take 81 mg U nivers mg EC 9-26 by mouth ity of tablet 18:23: daily. [address] Yes Take by Uni vers en 08-04 mouth ity of (TYLENOL) 18:23: every 6 [place] 325 mg 06 (six) Medical tablet hours as Branch needed for Pain (scale 1-3). aspirin 81 Yes 81mg Take 81 mg U nivers mg EC 9-26 by mouth ity of tablet 18:23: daily. [address] Yes Take by Uni vers en 08-04 mouth ity of (TYLENOL) 18:23: every 6 [place] 325 mg 06 (six) Medical tablet hours as Branch needed for Pain (scale 1-3). aspirin 81 Yes 81mg Take 81 mg U nivers mg EC 9-26 by mouth ity of tablet 18:23: daily. [address] [place] [address] Yes Take by Uni vers en 08-04 mouth ity of (TYLENOL) 18:23: every 6 [place] 325 mg 06 (six) Medical tablet hours as Branch needed for Pain (scale 1-3). aspirin 81 0 Yes 81mg Take 81 mg U nivers mg EC 9-26 by mouth ity of tablet 18:23: daily. [address] Yes Take by Uni vers en 08-04 mouth ity of (TYLENOL) 18:23: every 6 [place] 325 mg 06 (six) Medical tablet hours as Branch needed for Pain (scale 1-3). meloxicam No TAKE 1 [facility]ori a (MOBIC) 15 8-23 TABLET(S) l mg tablet 00:00: BY MOUTH Herm gabriel 00 EVERY MORNING AFTER BREAKFAST meloxicam Yes TAKE 1 Univer [...] Medical MORNING Branch AFTER BREAKFAST proMETHazin Yes Take 1 Tab Memoria e 4-01 by mouth l (PHENERGAN) 00:00: every 6 Her [place] 25 mg 00 (six) tablet hours as needed for Nausea and Vomiting (N/V). proMETHazin Yes [id number] 25mg Take 1 Tab Univers e 4-01 by mouth ity of (PHENERGAN) 00:00: every 6 [place] as 25 mg 00 (six) Medical tablet hours as Branch needed for Nausea and Vomiting (N/V). proMETHazin Yes [id number] 25mg Take 1 Tab Univers e 4-01 by mouth ity of (PHENERGAN) 00:00: every 6 [place] as 25 mg 00 (six) Medical tablet hours as Branch needed for Nausea and Vomiting (N/V). proMETHazin Yes [id number] 25mg Take 1 Tab Univers e 4-01 by mouth ity of (PHENERGAN) 00:00: every 6 [place] as 25 mg 00 (six) Medical tablet hours as Branch needed for Nausea and Vomiting (N/V). proMETHazin Yes [id number] 25mg Take 1 Tab Univers e 4-01 by mouth ity of (PHENERGAN) 00:00: every 6 [place] as 25 mg 00 (six) Medical tablet hours as Branch needed for Nausea and Vomiting (N/V). proMETHazin Yes [id number] 25mg Take 1 Tab Univers e 4-01 by mouth ity of (PHENERGAN) 00:00: every 6 [place] as 25 mg 00 (six) Medical tablet hours as Branch needed for Nausea and Vomiting (N/V). proMETHazin 2015- Yes [id number] 25mg Take 1 Tab Univers e 4-01 by mouth ity of (PHENERGAN) 00:00: every 6 [place] as 25 mg 00 (six) Medical tablet hours as Branch needed for Nausea and Vomiting (N/V). proMETHazin Yes [id number] 25mg Take 1 Tab Univers e 4-01 by mouth ity of (PHENERGAN) 00:00: every 6 [place] as 25 mg 00 (six) Medical tablet hours as Branch needed for Nausea and Vomiting (N/V). proMETHazin Yes [id number] 25mg Take 1 Tab Univers e 4-01 by mouth ity of (PHENERGAN) 00:00: every 6 [place] as 25 mg 00 (six) Medical tablet hours as Branch needed for Nausea and Vomiting (N/V). proMETHazin Yes [id number] 25mg Take 1 Tab Univers e 4-01 by mouth ity of (PHENERGAN) 00:00: every 6 [place] 25 mg 00 (six) Medical tablet hours as Branch needed for Nausea and Vomiting (N/V). proMETHazin Yes [id number] 25mg Take 1 Tab Univers e 4-01 by mouth ity of (PHENERGAN) 00:00: every 6 [place] 25 mg 00 (six) Medical tablet hours as Branch needed for Nausea and Vomiting (N/V). proMETHazin 2015- Yes [id number] 25mg Take 1 Tab Univers e 4-01 by mouth ity of (PHENERGAN) 00:00: every 6 [place] 25 mg 00 (six) Medical tablet hours as Branch needed for Nausea and Vomiting (N/V). proMETHazin Yes [id number] 25mg Take 1 Tab Univers e 4-01 by mouth ity of (PHENERGAN) 00:00: every 6 [place] as 25 mg 00 (six) Medical tablet hours as Branch needed for Nausea and Vomiting (N/V). proMETHazin Yes [id number] 25mg Take 1 Tab Univers e 4-01 by mouth ity of (PHENERGAN) 00:00: every 6 [place] as 25 mg 00 (six) Medical tablet hours as Branch needed for Nausea and Vomiting (N/V). proMETHazin Yes [id number] 25mg Take 1 Tab Univers e 4-01 by mouth ity of (PHENERGAN) 00:00: every 6 [place] as 25 mg 00 (six) Medical tablet hours as Branch needed for Nausea and Vomiting (N/V). proMETHazin Yes [id number] 25mg Take 1 Tab Univers e 4-01 by mouth ity of (PHENERGAN) 00:00: every 6 [place] as 25 mg 00 (six) Medical tablet hours as Branch needed for Nausea and Vomiting (N/V). proMETHazin Yes [id number] 25mg Take 1 Tab Univers e 4-01 by mouth ity of (PHENERGAN) 00:00: every 6 [place] as 25 mg 00 (six) Medical tablet hours as Branch needed for Nausea and Vomiting (N/V). proMETHazin Yes [id number] 25mg Take 1 Tab Univers e 4-01 by mouth ity of (PHENERGAN) 00:00: every 6 [place] as 25 mg 00 (six) Medical tablet hours as Branch needed for Nausea and Vomiting (N/V). proMETHazin Yes [id number] 25mg Take 1 Tab Univers e 4-01 by mouth ity of (PHENERGAN) 00:00: every 6 [place] as 25 mg 00 (six) Medical tablet hours as Branch needed for Nausea and Vomiting (N/V). proMETHazin Yes [id number] 25mg Take 1 Tab Univers e 4-01 by mouth ity of (PHENERGAN) 00:00: every 6 [place] as 25 mg 00 (six) Medical tablet hours as Branch needed for Nausea and Vomiting (N/V). proMETHazin Yes [id number] 25mg Take 1 Tab Univers e 4-01 by mouth ity of (PHENERGAN) 00:00: every 6 [place] as 25 mg 00 (six) Medical tablet hours as Branch needed for Nausea and Vomiting (N/V). proMETHazin Yes [id number] 25mg Take 1 Tab Univers e 4-01 by mouth ity of (PHENERGAN) 00:00: every 6 [place] as 25 mg 00 (six) Medical tablet hours as Branch needed for Nausea and Vomiting (N/V). proMETHazin Yes [id number] 25mg Take 1 Tab Univers e 4-01 by mouth ity of (PHENERGAN) 00:00: every 6 [place] as 25 mg 00 (six) Medical tablet hours as Branch needed for Nausea and Vomiting (N/V). proMETHazin Yes [id number] 25mg Take 1 Tab Univers e 4-01 by mouth ity of (PHENERGAN) 00:00: every 6 [place] as 25 mg 00 (six) Medical tablet hours as Branch needed for Nausea and Vomiting (N/V). proMETHazin Yes [id number] 25mg Take 1 Tab Univers e 4-01 by mouth ity of (PHENERGAN) 00:00: every 6 [place] as 25 mg 00 (six) Medical tablet hours as Branch needed for Nausea and Vomiting (N/V). proMETHazin Yes [id number] 25mg Take 1 Tab Univers e 4-01 by mouth ity of (PHENERGAN) 00:00: every 6 [place] as 25 mg 00 (six) Medical tablet hours as Branch needed for Nausea and Vomiting (N/V). proMETHazin Yes [id number] 25mg Take 1 Tab Univers e 4-01 by mouth ity of (PHENERGAN) 00:00: every 6 [place] as 25 mg 00 (six) Medical tablet hours as Branch needed for Nausea and Vomiting (N/V). proMETHazin Yes [id number] 25mg Take 1 Tab Univers e 4-01 by mouth ity of (PHENERGAN) 00:00: every 6 [place] as 25 mg 00 (six) Medical tablet hours as Branch needed for Nausea and Vomiting (N/V). proMETHazin Yes [id number] 25mg Take 1 Tab Univers e 4-01 by mouth ity of (PHENERGAN) 00:00: every 6 [place] as 25 mg 00 (six) Medical tablet hours as Branch needed for Nausea and Vomiting (N/V). proMETHazin Yes [id number] 25mg Take 1 Tab Univers e 4-01 by mouth ity of (PHENERGAN) 00:00: every 6 [place] as 25 mg 00 (six) Medical tablet hours as Branch needed for Nausea and Vomiting (N/V). proMETHazin Yes [id number] 25mg Take 1 Tab Univers e 4-01 by mouth ity of (PHENERGAN) 00:00: every 6 [place] as 25 mg 00 (six) Medical tablet hours as Branch needed for Nausea and Vomiting (N/V). proMETHazin 2015-0 Yes [id number] 25mg Take 1 Tab Univers e 4-01 by mouth ity of (PHENERGAN) 00:00: every 6 [place] 25 mg 00 (six) Medical tablet hours as Branch needed for Nausea and Vomiting (N/V). proMETHazin 2015-0 Yes [id number] 25mg Take 1 Tab Univers e 4-01 by mouth ity of (PHENERGAN) 00:00: every 6 [place] as 25 mg 00 (six) Medical tablet hours as Branch needed for Nausea and Vomiting (N/V). proMETHazin 2015-0 Yes [id number] 25mg Take 1 Tab Univers e 4-01 by mouth ity of (PHENERGAN) 00:00: every 6 [place] as 25 mg 00 (six) Medical tablet hours as Branch needed for Nausea and Vomiting (N/V). proMETHazin 2015-0 Yes [id number] 25mg Take 1 Tab Univers e 4-01 by mouth ity of (PHENERGAN) 00:00: every 6 [place] as 25 mg 00 (six) Medical tablet hours as Branch needed for Nausea and Vomiting (N/V). proMETHazin 2015- Yes [id number] 25mg Take 1 Tab Univers e 4-01 by mouth ity of (PHENERGAN) 00:00: every 6 [place] as 25 mg 00 (six) Medical tablet hours as Branch needed for Nausea and Vomiting (N/V). proMETHazin 2015-0 Yes [id number] 25mg Take 1 Tab Univers e 4-01 by mouth ity of (PHENERGAN) 00:00: every 6 [place] as 25 mg 00 (six) Medical tablet hours as Branch needed for Nausea and Vomiting (N/V). promethazin 2015-0 Yes 25mg Q6H Take 25 mg Methodi [facility] 4-[address] (PHENERGAN) 00:00: every 6 [facility] jonathan 25 MG 00 (six) l tablet hours as needed. promethazin 2016-0 Yes 25mg Q6H Take 25 mg Methodi e 4-[address] (PHENERGAN) 00:00: every 6 [facility] jonathan 25 MG 00 (six) l tablet hours as needed. promethazin 2015-0 Yes 25mg Q6H Take 25 mg Methodi e 4-[address] (PHENERGAN) 00:00: every 6 [facility] 25 MG 00 (six) l tablet hours as needed. promethazin 2016-0 Yes 25mg Q6H Take 25 mg Methodi e 4-[address] (PHENERGAN) 00:00: every 6 [facility] jonathan 25 MG 00 (six) l tablet hours as needed. promethazin 2016-0 Yes 25mg Q6H Take 25 mg Methodi e 4-[address] (PHENERGAN) 00:00: every 6 [facility] jonathan 25 MG 00 (six) l tablet hours as needed. promethazin 2016-0 Yes 25mg Q6H Take 25 mg Methodi e 4-[address] (PHENERGAN) 00:00: every 6 [facility] jonathan 25 MG 00 (six) l tablet hours as needed. promethazin 0 Yes 25mg Q6H Take 25 mg Methodi e 4-[address] (PHENERGAN) 00:00: every 6 [facility] jonathan 25 MG 00 (six) l tablet hours as needed. promethazin 0 Yes 25mg Q6H Take 25 mg Methodi e 4-[address] (PHENERGAN) 00:00: every 6 [facility] j[facility]athan 25 MG 00 (six) l tablet hours as needed. Levothyroxi 2015-0 Yes DAILY Memor ia ne 4-20 l 00:00: Trazodone 2015-0 Yes AT BEDTIME Me moria 4-20 l 00:00: Hydromorpho 2015-0 Yes Q6H PRN Mem oria ne 4-20 For Pain l 00:00: Scale 5-7 (Moderate) Potassium 2012-0 Yes DAILY Memoria Oral Tab 4-04 l 00:00: Lisinopril 2012-0 Yes DAILY Memori a 4-04 l 00:00: Ropinirole 2011-0 Yes AT BEDTIME M emoria Hcl 4-04 l 00:00: Immunizations Ordered Filled Immunization Date Status Comments Sour e Immunization Name Name Pneumococcal 2020-09-12 Completed [facility] Polysaccharide, 00:00:00 PPSV23 (PNEUMOVAX) Pneumococcal 2020-09-12 Completed [facility] Polysaccharide, 00:00:00 [place] [facility] ical PPSV23 (PNEUMOVAX) [...] PPSV23 (PNEUMOVAX) Branch Influenza Virus 2019-08-18 Completed [facility] [place] Vaccine Quad IM 00:00:00 Multi-dose 6+ MO Zoster(Zostavax)( 2019-08-18 Completed Eva oscar) 00:00:00 Influenza Virus 2019-08-18 Completed Universit y of Vaccine Quad IM 00:00:00 [place] [facility] ical Multi-dose 6+ MO Branch Zoster(Zostavax)( 2019-08-18 Completed Ashly keenan) 00:00:00 [facility] Influenza Virus 2019-08-18 Completed Universit y of Vaccine Quad IM 00:00:00 [place] Med ical Multi-dose 6+ MO Branch Zoster(Zostavax)( 2019-08-18 Completed Unive rsity of ingles) 00:00:00 [facility] Influenza Virus 2019-08-18 Completed Universit y of Vaccine Quad IM 00:00:00 [place] Med ical Multi-dose 6+ MO Branch Zoster(Zostavax)( 2019-08-18 Completed Unive rsity of ingles) 00:00:00 [facility] Influenza Virus 2019-08-18 Completed Universit y of Vaccine Quad IM 00:00:00 [place] Med ical Multi-dose 6+ MO Branch Zoster(Zostavax)( 2019-08-18 Completed Unive rsity of ingles) 00:00:00 [facility] Influenza Virus 2019-08-18 Completed Universit y of Vaccine Quad IM 00:00:00 [place] Med ical Multi-dose 6+ MO Branch Zoster(Zostavax)( 2019-08-18 Completed Unive rsity of ingles) 00:00:00 [facility] Influenza Virus 2019-08-18 Completed Universit y of Vaccine Quad IM 00:00:00 [place] Med ical Multi-dose 6+ MO Branch Zoster(Zostavax)( 2019-08-18 Completed Unive rsity of ingles) 00:00:00 [facility] Influenza Virus 2019-08-18 Completed Universit y of Vaccine Quad IM 00:00:00 [place] [facility] ical Multi-dose 6+ MO Branch Zoster(Zostavax)( 2019-08-18 Completed Unive rsity of ingles) 00:00:00 [facility] Influenza Virus 2019-08-18 Completed Universit y of Vaccine Quad IM 00:00:00 [place] Med ical Multi-dose 6+ MO Branch Zoster(Zostavax)( 2019-08-18 Completed Unive rsity of ingles) 00:00:00 [facility] Influenza Virus 2019-08-18 Completed Universit y of Vaccine Quad IM 00:00:00 [place] [facility] ical Multi-dose 6+ MO Branch Zoster(Zostavax)( 2019-08-18 Completed Unive rsity of ingles) 00:00:00 [facility] Influenza Virus 2019-08-18 Completed Universit y of Vaccine Quad IM 00:00:00 [place] [facility] ical Multi-dose 6+ MO Branch Zoster(Zostavax)( 2019-08-18 Completed Unive rsity of ingles) 00:00:00 [facility] Influenza Virus 2019-08-18 Completed Universit y of Vaccine Quad IM 00:00:00 [place] Med ical Multi-dose 6+ MO Branch Zoster(Zostavax)( 2019-08-18 Completed Unive rsity of ingles) 00:00:00 [facility] Influenza Virus 2019-08-18 Completed Universit y of Vaccine Quad IM 00:00:00 [place] Med ical Multi-dose 6+ MO Branch Zoster(Zostavax)( 2019-08-18 Completed Unive rsity of ingles) 00:00:00 [facility] Influenza Virus 2019-08-18 Completed Universit y of Vaccine Quad IM 00:00:00 [place] [facility] ical Multi-dose 6+ MO Branch Zoster(Zostavax)( 2019-08-18 Completed Unive rsity of ingles) 00:00:00 [facility] Influenza Virus 2019-08-18 Completed Universit y of Vaccine Quad IM 00:00:00 [place] Med ical Multi-dose 6+ MO Branch Zoster(Zostavax)( 2019-08-18 Completed Unive rsity of ingles) 00:00:00 [facility] Influenza Virus 2019-08-18 Completed Universit y of Vaccine Quad IM 00:00:00 [place] Med ical Multi-dose 6+ MO Branch Zoster(Zostavax)( 2019-08-18 Completed Unive rsity of ingles) 00:00:00 [facility] Influenza Virus 2019-08-18 Completed Universit y of Vaccine Quad IM 00:00:00 [place] Med ical Multi-dose 6+ MO Branch Zoster(Zostavax)( 2019-08-18 Completed Unive rsity of ingles) 00:00:00 [facility] Influenza Virus 2019-08-18 Completed Universit y of Vaccine Quad IM 00:00:00 [place] Med ical Multi-dose 6+ MO Branch Zoster(Zostavax)( 2019-08-18 Completed Unive rsity of ingles) 00:00:00 [facility] Influenza Virus 2019-08-18 Completed Universit y of Vaccine Quad IM 00:00:00 [place] [facility] ical Multi-dose 6+ MO Branch Zoster(Zostavax)( 2019-08-18 Completed Unive rsity of ingles) 00:00:00 [facility] Influenza Virus 2019-08-18 Completed Universit y of Vaccine Quad IM 00:00:00 [place] [facility] ical Multi-dose 6+ MO Branch Zoster(Zostavax)( 2019-08-18 Completed Unive rsity of ingles) 00:00:00 [facility] Influenza Virus 2019-08-18 Completed Universit y of Vaccine Quad IM 00:00:00 [place] [facility] ical Multi-dose 6+ MO Branch Zoster(Zostavax)( 2019-08-18 Completed Unive rsity of ingles) 00:00:00 [facility] Influenza Virus 2019-08-18 Completed Universit y of Vaccine Quad IM 00:00:00 [place] [facility] ical Multi-dose 6+ MO Branch Zoster(Zostavax)( 2019-08-18 Completed Unive rsity of ingles) 00:00:00 [facility] Influenza Virus 2019-08-18 Completed Universit y of Vaccine Quad IM 00:00:00 [place] [facility] ical Multi-dose 6+ MO Branch Zoster(Zostavax)( 2019-08-18 Completed Unive rsity of ingles) 00:00:00 [facility] Influenza Virus 2019-08-18 Completed Universit y of Vaccine Quad IM 00:00:00 [place] [facility] ical Multi-dose 6+ MO Branch Zoster(Zostavax)( 2019-08-18 Completed Unive rsity of ingles) 00:00:00 [facility] Influenza Virus 2019-08-18 Completed Universit y of Vaccine Quad IM 00:00:00 [place] [facility] ical Multi-dose 6+ MO Branch Zoster(Zostavax)( 2019-08-18 Completed Unive rsity of ingles) 00:00:00 [facility] Influenza Virus 2019-08-18 Completed Universit y of Vaccine Quad IM 00:00:00 [place] [facility] ical Multi-dose 6+ MO Branch Zoster(Zostavax)( 2019-08-18 Completed Unive rsity of ingles) 00:00:00 [facility] Influenza Virus 2019-08-18 Completed Universit y of Vaccine Quad IM 00:00:00 [place] [facility] ical Multi-dose 6+ MO Branch Zoster(Zostavax)( 2019-08-18 Completed Unive rsity of ingles) 00:00:00 [facility] Influenza Virus 2019-08-18 Completed Universit y of Vaccine Quad IM 00:00:00 [facility] ical Multi-dose 6+ MO Branch Zoster(Zostavax)( 2019-08-18 Completed Unive rsity of ingles) 00:00:00 [facility] Influenza Virus 2019-08-18 Completed Universit y of Vaccine Quad IM 00:00:00 [facility] ical Multi-dose 6+ MO Branch Zoster(Zostavax)( 2019-08-18 Completed Unive rsity of ingles) 00:00:00 [facility] Influenza Virus 2019-08-18 Completed Universit y of Vaccine Quad IM 00:00:00 [facility] ical Multi-dose 6+ MO Branch Zoster(Zostavax)( 2019-08-18 Completed Unive rsity of ingles) 00:00:00 [facility] Zoster(Zostavax)( 2019-05-02 Completed Bozenaor yanna oscar) 00:00:00 Zoster(Zostavax)( 2019-05-02 Completed Unive rsity of ingles) 00:00:00 [facility] Branch Zoster(Zostavax)( 2019-05-02 Completed Unive rsity of ingles) 00:00:00 [facility] Branch Zoster(Zostavax)( 2019-05-02 Completed Unive rsity of ingles) 00:00:00 [facility] Branch Zoster(Zostavax)( 2019-05-02 Completed Unive rsity of ingles) 00:00:00 [facility] Branch Zoster(Zostavax)( 2019-05-02 Completed Unive rsity of ingles) 00:00:00 [facility] Branch Zoster(Zostavax)( 2019-05-02 Completed Unive rsity of ingles) 00:00:00 [facility] Branch Zoster(Zostavax)( 2019-05-02 Completed Unive rsity of ingles) 00:00:00 [facility] Branch Zoster(Zostavax)( 2019-05-02 Completed Unive rsity of ingles) 00:00:00 [facility] Branch Zoster(Zostavax)( 2019-05-02 Completed Unive rsity of ingles) 00:00:00 [facility] Branch Zoster(Zostavax)( 2019-05-02 Completed Unive rsity of ingles) 00:00:00 [facility] Branch Zoster(Zostavax)( 2019-05-02 Completed Unive rsity of ingles) 00:00:00 [facility] Branch Zoster(Zostavax)( 2019-05-02 Completed Unive rsity of ingles) 00:00:00 [facility] Branch Zoster(Zostavax)( 2019-05-02 Completed Unive rsity of ingles) 00:00:00 [facility] Branch Zoster(Zostavax)( 2019-05-02 Completed Unive rsity of ingles) 00:00:00 [facility] Branch Zoster(Zostavax)( 2019-05-02 Completed Unive rsity of ingles) 00:00:00 [facility] Branch Zoster(Zostavax)( 2019-05-02 Completed Unive rsity of ingles) 00:00:00 [facility] Branch Zoster(Zostavax)( 2019-05-02 Completed Unive rsity of ingles) 00:00:00 [facility] Branch Zoster(Zostavax)( 2019-05-02 Completed Unive rsity of ingles) 00:00:00 [facility] Branch Zoster(Zostavax)( 2019-05-02 Completed Unive rsity of ingles) 00:00:00 [facility] Branch Zoster(Zostavax)( 2019-05-02 Completed Unive rsity of ingles) 00:00:00 [facility] Branch Zoster(Zostavax)( 2019-05-02 Completed Unive rsity of ingles) 00:00:00 [facility] Branch Zoster(Zostavax)( 2019-05-02 Completed Unive rsity of ingles) 00:00:00 [facility] Branch Zoster(Zostavax)( 2019-05-02 Completed Unive rsity of ingles) 00:00:00 [facility] Branch Zoster(Zostavax)( 2019-05-02 Completed Unive rsity of ingles) 00:00:00 [facility] Branch Zoster(Zostavax)( 2019-05-02 Completed Unive rsity of ingles) 00:00:00 [facility] Zoster(Zostavax)( 2019-05-02 Completed Unive rsity of ingles) 00:00:00 [facility] Zoster(Zostavax)( 2019-05-02 Completed Unive rsity of ingles) 00:00:00 [facility] Zoster(Zostavax)( 2019-05-02 Completed Unive rsity of ingles) 00:00:00 [facility] Zoster(Zostavax)( 2019-05-02 Completed Unive rsity of ingles) 00:00:00 [facility] Influenza Virus 2016-08-04 Completed [facility] Vaccine Quad IM 3+ 00:00:[address] [facility] Influenza Virus 2016-08-04 Completed Universit y of Vaccine Quad IM 3+ 00:00:00 [facility] Influenza Virus 2016-08-04 Completed Universit y of Vaccine Quad IM 3+ 00:00:00 [facility] Influenza Virus 2016-08-04 Completed Universit y of Vaccine Quad IM 3+ 00:00:00 [facility] Influenza Virus 2016-08-04 Completed Universit y of Vaccine Quad IM 3+ 00:00:00 [facility] Influenza Virus 2016-08-04 Completed Universit y of Vaccine Quad IM 3+ 00:00:00 [facility] Influenza Virus 2016-08-04 Completed Universit y of Vaccine Quad IM 3+ 00:00:00 [facility] Influenza Virus 2016-08-04 Completed [facility]it y of Vaccine Quad IM 3+ 00:00:00 [facility] Influenza Virus 2016-08-04 Completed [facility]it y of Vaccine Quad IM 3+ 00:00:00 [facility] Influenza Virus 2016-08-04 Completed Universit y of Vaccine Quad IM 3+ 00:00:00 [facility] Influenza Virus 2016-08-04 Completed [facility]it y of Vaccine Quad IM 3+ 00:00:00 [facility] Influenza Virus 2016-08-04 Completed [facility]it y of Vaccine Quad IM 3+ 00:00:00 [facility] Influenza Virus 2016-08-04 Completed [facility]it y of Vaccine Quad IM 3+ 00:00:00 [facility] Influenza Virus 2016-08-04 Completed [facility]it y of Vaccine Quad IM 3+ 00:00:00 [facility] Influenza Virus 2016-08-04 Completed [facility]it y of Vaccine Quad IM 3+ 00:00:00 [facility] Influenza Virus 2016-08-04 Completed [facility]it y of Vaccine Quad IM 3+ 00:00:00 [facility] Influenza Virus 2016-08-04 Completed [facility]it y of Vaccine Quad IM 3+ 00:00:00 [facility] Influenza Virus 2016-08-04 Completed [facility]it y of Vaccine Quad IM 3+ 00:00:00 [facility] Influenza Virus 2016-08-04 Completed [facility]it y of Vaccine Quad IM 3+ 00:00:00 [facility] Influenza Virus 2016-08-04 Completed [facility]it y of Vaccine Quad IM 3+ 00:00:00 [facility] Influenza Virus 2016-08-04 Completed [facility]it y of Vaccine Quad IM 3+ 00:00:00 [facility] Influenza Virus 2016-08-04 Completed [facility]it y of Vaccine Quad IM 3+ 00:00:00 [facility] Influenza Virus 2016-08-04 Completed [facility]it y of Vaccine Quad IM 3+ 00:00:00 [facility] Influenza Virus 2016-08-04 Completed [facility]it y of Vaccine Quad IM 3+ 00:00:00 [facility] Influenza Virus 2016-08-04 Completed [facility]it y of Vaccine Quad IM 3+ 00:00:00 [facility] Influenza Virus 2016-08-04 Completed [facility]it y of Vaccine Quad IM 3+ 00:00:00 [facility] Influenza Virus 2016-08-04 Completed [facility]it y of Vaccine Quad IM 3+ 00:00:00 [facility] Influenza Virus 2016-08-04 Completed [facility]it y of Vaccine Quad IM 3+ 00:00:00 [facility] Influenza Virus 2016-08-04 Completed [facility]it y of Vaccine Quad IM 3+ 00:00:00 [facility] Influenza Virus 2016-08-04 Completed [facility]it y of Vaccine Quad IM 3+ 00:00:00 [facility] Influenza Virus 2016-08-04 Completed [facility]it y of Vaccine Quad IM 3+ 00:00:00 [facility] Influenza Virus 2016-08-04 Completed [facility]it y of Vaccine Quad IM 3+ 00:00:00 [facility] Influenza Virus 2016-08-04 Completed [facility]it y of Vaccine Quad IM 3+ 00:00:00 [facility] Influenza Virus 2016-08-04 Completed [facility]it y of Vaccine Quad IM 3+ 00:00:00 [facility] Influenza Virus 2016-08-04 Completed [facility]it y of Vaccine Quad IM 3+ 00:00:00 [facility] Influenza Virus 2016-08-04 Completed [facility]it y of Vaccine Quad IM 3+ 00:00:00 [facility] Influenza Virus 2016-08-04 Completed [facility]it y of Vaccine Quad IM 3+ 00:00:00 [facility] tetanus-diphtheria 2011-08-07 Completed Aryan Esquivel toxoids 19:44:00 pneumococcal 2010-11-29 Completed [facility] 23-valent vaccine 18:39:00 Vital Signs Vital Name Observation Time Observation Value Comments Source Systolic blood 2022-12-30 19:54:00 143 mm[Hg] [facility] Diastolic blood 2022-12-30 19:54:00 84 mm[Hg] [facility] Heart rate 2022-12-30 19:54:00 69 /min [facility] Respiratory rate 2022-12-30 19:54:00 18 /min [facility] height 2022-12-30 19:54:00 [facility]6 [facility] weight 2022-12-30 19:54:00 57[facility]607 [facility] BMI 2022-12-30 19:54:00 20.50 kg[facility]m2 [facility] Systolic blood 2022-11-28 15:36:00 122 mm[Hg] Univer sity of [facility] Diastolic blood 2022-11-28 15:36:00 74 mm[Hg] Unive rsity [facility] Heart rate 2022-11-28 15:34:00 72 /min Universi ty [facility] Body temperature 2022-11-28 15:34:00 36.78 Farnaz Univ ersity of [facility] Respiratory rate 2022-11-28 15:34:00 18 /[facility] 2022-11-28 15:34:00 167.6 cm Universi ty [facility] Body weight 2022-11-28 15:34:00 63.504 kg Universi ty [facility] BMI 2022-11-28 15:34:00 22.60 kg/m2 Univers[facility] ty [facility] Systolic blood 2022-07-28 19:43:00 100 mm[Hg] [facility] Diastolic blood 2022-07-28 19:43:00 67 mm[Hg] [facility] Heart rate 2022-07-28 19:43:00 83 /min [facility] Respiratory rate 2022-07-28 19:43:00 18 /min [facility] height 2022-07-28 19:43:00 168.9 cm [facility] Body weight 2022-07-28 19:43:00 57.607 [facility] BMI 2022-07-28 19:43:00 20.19 kg/m2 [facility] O[facility] saturation in 2022-07-28 19:43:00 96 /min [facility] Arterial blood by Pulse oximetry Systolic blood 2022-07-21 22:24:00 154 mm[Hg] Univer [facility]ity of pressure [facility] [place] Diastolic blood 2022-07-21 22:24:00 94 mm[Hg] Unive rsity of [facility] Heart rate 2022-07-21 22:24:00 73 /min [facility] [place] Respiratory rate 2022-07-21 22:24:00 17 /min [facility] Oxygen saturation in 2022-07-21 22:24:00 99 /min [facility] Arterial blood by [facility] Pulse oximetry Branch Body temperature 2022-07-21 20:22:00 37.33 Farnaz Univ ersity of [facility] Body weight 2022-07-21 20:22:00 67.586 kg [facility]i [facility] [place] BMI 2022-07-21 20:22:00 24.05 kg/m2 [facility] Systolic blood 2021-05-31 21:42:00 145 mm[Hg] Univer sity of pressure [facility] Branch Diastolic blood 2021-05-31 21:42:00 88 mm[Hg] Unive rsity of pressure [facility] Heart rate 2021-05-31 21:41:00 69 /min [facility] Body height 2021-05-31 21:41:00 167.6 cm [facility] [place] Body weight 2021-05-31 21:41:00 67.586 kg Universi ty of [facility] BMI 2021-05-31 21:41:00 24.05 kg/m2 [facility] Systolic blood 2021-05-31 21:42:00 145 mm[Hg] Univer sity of pressure [facility] Diastolic blood 2021-05-31 21:42:00 88 mm[Hg] Unive rsity of pressure [facility] Heart rate 2021-05-31 21:41:00 69 /min [facility] Body height 2021-05-31 21:41:00 167.6 cm [facility] Body weight 2021-05-31 21:41:00 67.586 kg [facility] BMI 2021-05-31 21:41:00 24.05 kg/m2 [facility] Respiratory rate 2021-04-03 17:09:00 20 /min Univ [facility] Oxygen saturation in 2021-04-03 17:09:00 94 /min University of Arterial blood by [place] [employer] Pulse oximetry Branch Systolic blood 2021-04-03 16:32:00 133 mm[Hg] Univer sity of pressure [facility] Diastolic blood 2021-04-03 16:32:00 62 mm[Hg] Unive rsity of pressure [facility] Heart rate 2021-04-03 16:32:00 51 /min [facility] Body temperature 2021-04-03 16:32:00 36.89 Farnaz [facility] Body height 2021-04-02 07:24:00 167.6 cm [facility] Body weight 2021-04-02 00:32:00 70.761 kg [facility] BMI 2021-04-02 00:32:00 25.18 kg/m2 [facility] Respiratory rate 2021-04-03 17:09:00 20 /min Univ [facility] Oxygen saturation in 2021-04-03 17:09:00 94 /min University of Arterial blood by [employer] [employer] dyan Pulse oximetry Branch Systolic blood 2021-04-03 16:32:00 133 mm[Hg] Univer sity of pressure [facility] Diastolic blood 2021-04-03 16:32:00 62 mm[Hg] Unive rsity of pressure [facility] Heart rate 2021-04-03 16:32:00 51 /min [facility] Body temperature 2021-04-03 16:32:00 36.89 Farnaz [facility] Body height 2021-04-02 07:24:00 167.6 cm [facility] Body weight 2021-04-02 00:32:00 70.761 kg [facility] BMI 2021-04-02 00:32:00 25.18 kg/m2 [facility] Systolic blood 2021-03-04 20:21:00 123 mm[Hg] Univer sity of pressure [facility] Diastolic blood 2021-03-04 20:21:00 74 mm[Hg] Unive rsity of pressure [facility] Heart rate 2021-03-04 20:21:00 69 /min [facility] Body height 2021-03-04 20:21:00 167.6 cm [facility] Body weight 2021-03-04 20:21:00 70.761 kg [facility] BMI 2021-03-04 20:21:00 25.18 kg/m2 [facility] Oxygen saturation in 2021-03-04 20:21:00 100 /min University of Arterial blood by [facility] Pulse oximetry Branch Systolic blood 2021-03-04 20:21:00 123 mm[Hg] Univer sity of pressure [facility] Diastolic blood 2021-03-04 20:21:00 74 mm[Hg] Unive rsity of pressure [facility] Heart rate 2021-03-04 20:21:00 69 /min [facility] Body height 2021-03-04 20:21:00 167.6 cm [facility] Body weight 2021-03-04 20:21:00 70.761 kg [facility] BMI 2021-03-04 20:21:00 25.18 kg/m2 [facility] Oxygen saturation in 2021-03-04 20:21:00 100 /min University of Arterial blood by [place] [facility] Pulse oximetry Branch Systolic blood 2020-08-30 20:05:00 156 mm[Hg] Univer sity of pressure [facility] Diastolic blood 2020-08-30 20:05:00 81 mm[Hg] Unive rsity of pressure [facility] Heart rate 2020-08-30 20:05:00 62 /min [facility] Body temperature 2020-08-30 20:05:00 36.67 Farnaz Univ [facility] Respiratory rate 2020-08-30 20:05:00 16 /min Univ [facility] Body height 2020-08-30 20:05:00 167.6 cm [facility] Body weight 2020-08-30 20:05:00 71.578 kg [facility] BMI 2020-08-30 20:05:00 25.47 kg/m2 [facility] Systolic blood 2020-08-30 20:05:00 156 mm[Hg] Univer sity of pressure [facility] Diastolic blood 2020-08-30 20:05:00 81 mm[Hg] Unive rsity of pressure [facility] Heart rate 2020-08-30 20:05:00 62 /min [facility] Body temperature 2020-08-30 20:05:00 36.67 Farnaz [facility] Respiratory rate 2020-08-30 20:05:00 16 /min Univ [facility] Body height 2020-08-30 20:05:00 167.6 cm [facility] Body weight 2020-08-30 20:05:00 71.578 kg [facility] BMI 2020-08-30 20:05:00 25.47 kg/m2 [facility] Heart Rate 2022-08-22 12:41:19 [facility] Systolic (mm Hg) 2022-08-22 12:41:07 [facility] Diastolic (mm Hg) 2022-08-22 12:41:07 [facility] Temperature Oral (F) 2022-08-22 12:40:08 97.9 F [facility] Height 2022-08-20 00:19:00 5 [ft_i] [facility] Weight 2022-08-20 00:19:00 [facility] BMI Calculated 2022-08-20 00:19:00 [facility] Systolic (mm Hg) 2022-02-04 01:00:00 [facility] Diastolic (mm Hg) 2022-02-04 01:00:00 [facility] Respitory Rate 2022-02-04 01:00:00 [facility] Temperature Oral (F) 2022-02-04 01:00:00 98 F [facility] Systolic (mm Hg) 2022-02-03 23:50:00 Mj rial [facility] Diastolic (mm Hg) 2022-02-03 23:50:00 Mem [facility] Respitory Rate 2022-02-03 23:50:00 [facility] Systolic (mm Hg) 2022-02-03 22:55:00 [facility] Diastolic (mm Hg) 2022-02-03 22:55:00 [facility] Respitory Rate 2022-02-03 22:55:00 [facility] Heart Rate 2022-02-03 18:58:00 [facility] Height 2022-02-03 15:13:00 170.18 cm [facility] BMI Calculated 2022-02-03 15:13:00 [facility] Weight 2022-02-03 15:13:00 [facility] Heart Rate 2022-02-03 15:13:00 [facility] Temperature Oral (F) 2022-02-03 15:13:00 97.8 F [facility] Systolic blood 2021-08-02 15:28:00 166 mm[facility]Hg[facility] 2021-08-02 15:28:00 79 mm[Hg] [facility] pressure Heart rate 2021-08-02 15:28:00 57 /min [facility] Body temperature 2021-08-02 15:28:00 36.89 Farnaz [facility] Respiratory rate 2021-08-02 15:28:00 18 /min [facility] Oxygen saturation in 2021-08-02 15:28:00 98 /min [facility] Arterial blood by Pulse oximetry Respitory Rate 2020-09-29 00:00:00 [facility] Systolic (mm Hg) 2020-09-29 00:00:00 [facility] Diastolic (mm Hg) 2020-09-29 00:00:00 Mem [facility] Respitory Rate 2020-09-28 22:00:00 [facility] Systolic (mm Hg) 2020-09-28 22:00:00 [facility] Diastolic (mm Hg) 2020-09-28 22:00:00 [facility] Temperature Oral (F) 2020-09-28 21:41:00 98.7 F [facility] Respitory Rate 2020-09-28 20:00:00 [facility] Systolic (mm Hg) 2020-09-28 20:00:00 [facility] Diastolic (mm Hg) 2020-09-28 20:00:00 [facility] Temperature Oral (F) 2020-09-28 17:32:00 97.8 F [facility] Temperature Oral (F) 2020-09-28 13:47:00 97.7 F [facility] Height 2020-09-27 09:16:00 165.1 cm [facility] Weight 2020-09-27 09:16:00 [facility] BMI Calculated 2020-09-27 09:16:00 [facility] Respitory Rate 2020-09-27 07:25:00 [facility] Systolic (mm Hg) 2020-09-27 07:25:00 Mj [facility] Diastolic (mm Hg) 2020-09-27 07:25:00 [facility] Temperature Oral (F) 2020-09-27 07:25:00 98.2 F [facility] Respitory Rate 2020-09-27 06:26:00 [facility] Systolic (mm Hg) 2020-09-27 06:26:00 [facility]j [facility] Diastolic (mm Hg) 2020-09-27 06:26:00 [facility] Respitory Rate 2020-09-27 05:31:00 [facility] Systolic (mm Hg) 2020-09-27 05:31:00 [facility] Diastolic (mm Hg) 2020-09-27 05:31:00 [facility] Temperature Oral (F) 2020-09-27 05:31:00 98.5 F [facility] Heart Rate 2020-09-27 01:55:00 [facility] Temperature Oral (F) 2020-09-27 01:55:00 99.3 F [facility] Height 2020-09-27 00:54:00 162.56 cm [facility] BMI Calculated 2020-09-27 00:54:00 [facility] Weight 2020-09-27 00:54:00 [facility] Heart Rate 2020-09-27 00:54:00 [facility] Systolic (mm Hg) 2020-04-25 08:00:00 [facility] Diastolic (mm Hg) 2020-04-25 08:00:00 [facility] Heart Rate 2020-04-25 08:00:00 [facility] Respitory Rate 2020-04-25 08:00:00 [facility] Temperature Oral (F) 2020-04-25 08:00:00 98.1 F [facility] Systolic (mm Hg) 2020-04-25 04:49:00 Mj [facility] Diastolic (mm Hg) 2020-04-25 04:49:00 [facility] Respitory Rate 2020-04-25 04:49:00 [facility] Heart Rate 2020-04-25 04:49:00 [facility] Temperature Oral (F) 2020-04-25 04:49:00 97.4 F [facility] Weight 2020-04-25 02:43:00 [facility] Systolic (mm Hg) 2020-04-25 02:43:00 [facility] Diastolic (mm Hg) 2020-04-25 02:43:00 [facility] Heart Rate 2020-04-25 02:43:00 [facility] Respitory Rate 2020-04-25 02:43:00 [facility] Temperature Oral (F) 2020-04-25 02:43:00 97.6 F [facility] Systolic (mm Hg) 2020-03-22 18:00:00 [facility] Diastolic (mm Hg) 2020-03-22 18:00:00 [facility] Systolic (mm Hg) 2020-03-22 17:00:00 [facility] Diastolic (mm Hg) 2020-03-22 17:00:00 [facility] Respitory Rate 2020-03-22 17:00:00 [facility] Systolic (mm Hg) 2020-03-22 16:22:00 [facility] Diastolic (mm Hg) 2020-03-22 16:22:00 [facility] Respitory Rate 2020-03-22 15:00:00 [facility] Respitory Rate 2020-03-22 14:00:00 [facility] Temperature Oral (F) 2020-03-22 13:10:00 98.3 F [facility] Temperature Oral (F) 2020-03-22 04:46:00 98.5 F [facility] Temperature Oral (F) 2020-03-22 02:40:00 98.5 F [facility] Height 2020-03-19 10:00:00 170.18 cm [facility] Weight 2020-03-19 10:00:00 [facility] BMI Calculated 2020-03-19 10:00:00 [facility] Temperature Oral (F) 2020-03-19 07:02:00 98 F [facility] Heart Rate 2020-03-19 07:02:00 [facility] Respitory Rate 2020-03-19 07:02:00 [facility] Systolic (mm Hg) 2020-03-19 07:02:00 [facility] Diastolic (mm Hg) 2020-03-19 07:02:00 [facility] Systolic (mm Hg) 2020-03-19 05:41:00 [facility] Diastolic (mm Hg) 2020-03-19 05:41:00 [facility] Height 2020-03-19 05:20:00 167.64 cm [facility] BMI Calculated 2020-03-19 05:20:00 [facility] Weight 2020-03-19 05:20:00 [facility] Systolic (mm Hg) 2020-03-19 05:20:00 Mj [facility] Diastolic (mm Hg) 2020-03-19 05:20:00 [facility] Heart Rate 2020-03-19 05:20:00 [facility] Respitory Rate 2020-03-19 05:20:00 [facility] Temperature Oral (F) 2020-03-19 05:20:00 98.2 F [facility] Respitory Rate 2019-08-04 00:45:00 [facility] Systolic (mm Hg) 2019-08-04 00:45:00 [facility] Diastolic (mm Hg) 2019-08-04 00:45:00 [facility] Respitory Rate 2019-08-04 00:30:00 [facility] Systolic (mm Hg) 2019-08-04 00:30:00 [facility] Diastolic (mm Hg) 2019-08-04 00:30:00 [facility] Respitory Rate 2019-08-04 00:15:00 [facility] Systolic (mm Hg) 2019-08-04 00:15:00 [facility] Diastolic (mm Hg) 2019-08-04 00:15:00 [facility] Height 2019-08-03 16:02:00 167.64 cm [facility] Weight 2019-08-03 16:02:00 [facility] BMI Calculated 2019-08-03 16:02:00 [facility] Height 2019-08-03 02:00:00 170.18 cm [facility] Weight 2019-08-03 02:00:00 [facility] BMI Calculated 2019-08-03 02:00:00 [facility] Procedures Procedure Date / Time Performing Source Performed Clinician TSH[facility]LC [facility] THYROID PEROXIDASE (TPO) 2022-12-08 Wilma Forde [facility] AB-LC 18:24:00 Medical Branch ASSIGNMENT OF BENEFITS 2022-11-28 Doctor Unassigned, [facility] 15:18:40 [facility] XR CHEST 2 VW 2022-07-21 Jayde [facility] 22:10:[address] [facility] [address] HEAD WO CONTRAST 2022-07-21 Jayde [facility] 22:04:23 [facility] [place] URINE DRUG (IMMUNOASSAY) - 2022-07-21 Trinity Donohue [facility] COMPREHENSIVE DRUG SCREEN 22:00:00 Medica l Branch URINALYSIS 2022-07-21 Jayde [facility] 22:00:00 [facility] COMP. METABOLIC PANEL (96774) 2022-07-21 Jayde [facility] 21:38:00 [facility] CBC WITH DIFF [facility] NOTICE OF PRIVACY PRACTICES 2022-07-21 Doctor Unassigned, [facility] 19:38:44 [facility] CONSENT/REFUSAL FOR DIAGNOSIS 2022-07-21 Doctor Unassigned, [facility] AND TREATMENT 19:37:19 [facility] REFERRAL- REQUEST/RESPONSE 2022-01-01 [facility] 06:01:00 [facility] PHYSICIAN ORDERS 2021-09-17 [facility] 06:01:00 [facility] XR SHOULDER 2+ VIEWS RIGHT 2021-08-26 Gerald Mckeon [facility] He alth 15:52:14 MRI BRAIN WO CONTRAST 2021-08-09 Isabel Hidalgo [facility] 15:20:51 MRI BRAIN WO CONTRAST 2021-08-09 [place] [facility] 15:20:51 CELL COUNT AND DIFFERENTIAL, 2021-08-02 Tae Salazar [facility] BODY FLUID 21:32:00 NM BONE SCAN 3 PHASE 2021-08-02 Tae Salazar [facility] 20:23:00 CT UPPER EXTREMITY WO RIGHT 2021-08-02 Tae Salazar [facility] 18:25:00 FL RAD NEEDLE ASPIRATION 2021-08-02 [facility] 16:51:02 JOINT FLUID CULTURE 2021-08-02 Tae Salazar [facility] 16:25:00 ANAEROBIC CULTURE 2021-08-02 Tae Salazar [facility]osp [facility] 16:25:00 FUNGUS CULTURE 2021-08-02 [facility] 16:25:00 AFB CULTURE 2021-08-02 [facility] 16:25:00 FUNGUS SMEAR 2021-08-02 [facility] 16:25:00 AFB STAIN 2021-08-02 [facility] 16:25:00 REFERRAL- REQUEST/RESPONSE 2021-04-30 Doctor Unassigned, [facility] 05:01:00 [facility] BASIC METABOLIC PANEL (NA, K, 2021-04-03 Vu, Oz [facility] CL, CO2, GLUCOSE, BUN, 10:03:00 Medical B yanet CREATININE, CA) ELECTROENCEPHALOGRAM 2021-04-03 Vicky [facility] 00:00:00 [facility] URINE CULTURE 2021-04-02 Haider Steven [facility] 03:50:00 [facility] TROPONIN I 2021-04-02 [facility] 02:06:00 [facility] HEPATIC FUNCTION PANEL 2021-04-02 Haider [facility] ([id number]) (ALB,T.PRO,BILI 02:06:00 [facility] T,BU/BC,ALT,AST,ALK PHOS) BASIC METABOLIC PANEL (NA, K, 2021-04-02 Steven Maloney [facility] CL, CO2, GLUCOSE, BUN, 02:06:00 [facility] ranch CREATININE, CA) ETHANOL 2021-04-02 Haider [facility] 02:06:00 [facility] N-TERMINAL PRO-BNP 2021-04-02 Hermila [facility] 02:06:00 [facility] COVID-19 (ID NOW RAPID [facility] 02:06:[address] [facility] [address] HEAD WO CONTRAST 2021-04-02 Steven Maloney [facility] [place] 01:42:34 [facility] XR CHEST 1 VW 2021-04-02 Hadier [facility] xa 01:20:37 [facility] AC PANEL 20 + LACTIC ACID 2021-04-02 Steven Maloney [facility] 01:13:00 [facility] URINE DRUG (IMMUNOASSAY) - 2021-04-02 Steven Maloney [facility] COMPREHENSIVE DRUG SCREEN 01:12:00 Medica [facility] CBC WITH DIFF 2021-04-02 Haider [facility] xas 01:12:00 [facility] PROTHROMBIN TIME / INR 2021-04-02 [facility] 01:12:00 [facility] ACTIVATED PARTIAL THRMPLAS 2021-04-02 Steven Maloney [facility] MAMTA 01:12:00 [facility] URINALYSIS 2021-04-02 Haider Steven [facility] xa 01:11:00 [facility] HB ECG ROUTINE & RHYTHM STRIP 2021-04-02 Steven Maloney [facility] 01:06:28 [facility] NOTICE OF PRIVACY PRACTICES 2021-04-02 Doctor Unassigned, [facility] 00:25:37 [facility] CONSENT/REFUSAL FOR DIAGNOSIS 2021-04-02 Doctor Unassigned, [facility] AND TREATMENT 00:24:42 [facility] AGREEMENTS AUTHORIZATIONS AND 2021-04-01 Doctor Cassie, [facility] IRREVOCABLE ASSIGNMENTS (FORM 05:01:00 [facility] 2000) AUTHORIZATION TO RELEASE PHI 2021-03-04 Doctor Natalieigned, [facility] TO [facility] 05:01:00 [facility] REFERRAL- REQUEST/RESPONSE 2021-02-20 Doctor Unasssarkis, [facility] 05:01:00 [facility] EXTERNAL PROVIDER RECORDS 2020-09-19 Doctor Unasssarkis, [facility] 06:01:00 [facility] PATIENT FINANCIAL POLICY 2020-08-30 Doctor Cassie, [facility] 19:45:11 [facility] NO SHOW OR MISSED APPOINTMENT 2020-08-30 Doctor Cassie, [facility] POLICY ACKNOWLEDGEMENT 19:44:52 [facility] NOTICE OF PRIVACY PRACTICES 2020-08-30 Doctor Unassigned, [facility] 19:44:13 [facility] CONSENT TO CONTACT FOR 2020-08-30 Doctor Cassie, [facility] VOLUNTARY RESEARCH 19:43:51 [facility] CONSENT/REFUSAL FOR DIAGNOSIS 2020-08-30 Doctor Cassie, [facility] AND TREATMENT 19:43:19 [facility] ASSIGNMENT OF BENEFITS 2020-08-30 Doctor Cassie, [facility] 19:42:42 [facility] Spinal puncture, lumbar, 2020-03-22 Tawny Preston diagnostic 03:02:00 Knee replacement 2014-11-09 Yola mazariegos 00:00:00 Partial shoulder 2012-11-09 Yola Chase n replacement<sup>3</sup> 06:00:00 Arthrectomy of 2011-07-10 Yola Preston ankle<sup>1</sup> 05:00:00 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 orial Mohan hand<sup>2</sup> 06:00:00 Arteriectomy of aorta 1993-11-09 [facility] ermann 06:00:00 Caesarean section<sup>4</sup> La morial Mohan Plan of Care Planned Activity Planned Date Details Comments Source Future Scheduled 2023-01-28 Pneumococcal Vaccine: [facility] Test 02:35:07 Pediatrics (0 to 5 Years) and At-Risk Patients (6 to 64 Years) (1 - PCV) [code = Pneumococcal Vaccine: Pediatrics (0 to 5 Years) and At-Risk Patients (6 to 64 Years) (1 - PCV)] Future Scheduled 2023-01-28 Hepatitis C screening [facility] Test 02:35:07 (procedure) [code = 246525586] Future Scheduled 2023-01-28 Screening for [facility] Test 02:35:07 malignant neoplasm of cervix (procedure) [code = 861348024] Future Scheduled 2023-01-28 BREAST CANCER [facility] Test 02:35:07 SCREENING [code = BREAST CANCER SCREENING] Future Scheduled 2023-01-28 COLONOSCOPY SCREENING [facility] Test 02:35:07 [code = COLONOSCOPY SCREENING] Future Scheduled 2023-01-28 SHINGLES VACCINES (1 Met [facility] Test 02:35:07 of 2) [code = SHINGLES VACCINES (1 of 2)] Future Scheduled 2023-01-28 COVID-19 VACCINE (2 - [facility] Test 02:35:07 Moderna series) [code = COVID-19 VACCINE (2 - Moderna series)] Future Scheduled 2023-01-28 INFLUENZA VACCINE Method [facility] Test 02:35:07 [code = INFLUENZA VACCINE] Future Scheduled 2023-01-11 Pneumococcal Vaccine: [facility] Test 22:54:33 Pediatrics (0 to 5 Years) and At-Risk Patients (6 to 64 Years) (1 - PCV) [code = Pneumococcal Vaccine: Pediatrics (0 to 5 Years) and At-Risk Patients (6 to 64 Years) (1 - PCV)] Future Scheduled 2023-01-11 Hepatitis C screening [facility] Test 22:54:33 (procedure) [code = 169060190] Future Scheduled 2023-01-11 Screening for [facility] Test 22:54:33 malignant neoplasm of cervix (procedure) [code = 573870744] Future Scheduled 2023-01-11 BREAST CANCER [facility] Test 22:54:33 SCREENING [code = BREAST CANCER SCREENING] Future Scheduled 2023-01-11 COLONOSCOPY SCREENING [facility] Test 22:54:33 [code = COLONOSCOPY SCREENING] Future Scheduled 2023-01-11 SHINGLES VACCINES (1 Met [facility] Test 22:54:33 of 2) [code = SHINGLES VACCINES (1 of 2)] Future Scheduled 2023-01-11 COVID-19 VACCINE (2 - [facility] Test 22:54:33 Moderna series) [code = COVID-19 VACCINE (2 - Moderna series)] Future Scheduled 2023-01-11 INFLUENZA VACCINE Method [facility] Test 22:54:33 [code = INFLUENZA VACCINE] Future Scheduled 2022-12-31 Pneumococcal Vaccine: [facility] Test 14:16:47 Pediatrics (0 to 5 Years) and At-Risk Patients (6 to 64 Years) (1 - PCV) [code = Pneumococcal Vaccine: Pediatrics (0 to 5 Years) and At-Risk Patients (6 to 64 Years) (1 - PCV)] Future Scheduled 2022-12-31 Hepatitis C screening [facility] Test 14:16:47 (procedure) [code = 076636568] Future Scheduled 2022-12-31 Screening for [facility] Test 14:16:47 malignant neoplasm of cervix (procedure) [code = 455644235] Future Scheduled 2022-12-31 BREAST CANCER [facility] Test 14:16:47 SCREENING [code = BREAST CANCER SCREENING] Future Scheduled 2022-12-31 COLONOSCOPY SCREENING [facility] Test 14:16:47 [code = COLONOSCOPY SCREENING] Future Scheduled 2022-12-31 SHINGLES VACCINES (1 Met [facility] Test 14:16:47 of 2) [code = SHINGLES VACCINES (1 of 2)] Future Scheduled 2022-12-31 COVID-19 VACCINE (2 - [facility] Test 14:16:47 Moderna series) [code = COVID-19 VACCINE (2 - Moderna series)] Future Scheduled 2022-12-31 INFLUENZA VACCINE Method [facility] Test 14:16:47 [code = INFLUENZA VACCINE] Future Scheduled 2022-10-20 HEPATITIS B VACCINES Met [facility] Test 12:13:45 (1 of 3 - 3-dose series) [code = HEPATITIS B VACCINES (1 of 3 - 3-dose series)] Future Scheduled 2022-10-20 Pneumococcal Vaccine: [facility] Test 12:13:45 Pediatrics (0 to 5 Years) and At-Risk Patients (6 to 64 Years) (1 - PCV) [code = Pneumococcal Vaccine: Pediatrics (0 to 5 Years) and At-Risk Patients (6 to 64 Years) (1 - PCV)] Future Scheduled 2022-10-20 Hepatitis C screening [facility] Test 12:13:45 (procedure) [code = 872720765] Future Scheduled 2022-10-20 Screening for [facility] Test 12:13:45 malignant neoplasm of cervix (procedure) [code = 701341766] Future Scheduled 2022-10-20 BREAST CANCER [facility] Test 12:13:45 SCREENING [code = BREAST CANCER SCREENING] Future Scheduled 2022-10-20 COLONOSCOPY SCREENING [facility] Test 12:13:45 [code = COLONOSCOPY SCREENING] Future Scheduled 2022-10-20 SHINGLES VACCINES (1 Met [facility] Test 12:13:45 of 2) [code = SHINGLES VACCINES (1 of 2)] Future Scheduled 2022-10-20 COVID-19 VACCINE (2 - [facility] Test 12:13:45 Moderna series) [code = COVID-19 VACCINE (2 - Moderna series)] Future Scheduled 2022-10-20 INFLUENZA VACCINE Method [facility] Test 12:13:45 [code = INFLUENZA VACCINE] Future Scheduled 2022-08-06 HEPATITIS B VACCINES Met [facility] Test 12:50:33 (1 of 3 - 3-dose series) [code = HEPATITIS B VACCINES (1 of 3 - 3-dose series)] Future Scheduled 2022-08-06 Pneumococcal Vaccine: [facility] Test 12:50:33 Pediatrics (0 to 5 Years) and At-Risk Patients (6 to 64 Years) (1 - PCV) [code = Pneumococcal Vaccine: Pediatrics (0 to 5 Years) and At-Risk Patients (6 to 64 Years) (1 - PCV)] Future Scheduled 2022-08-06 Hepatitis C screening [facility] Test 12:50:33 (procedure) [code = 549068489] Future Scheduled 2022-08-06 Screening for [facility] Test 12:50:33 malignant neoplasm of cervix (procedure) [code = 690014227] Future Scheduled 2022-08-06 BREAST CANCER [facility] Test 12:50:33 SCREENING [code = BREAST CANCER SCREENING] Future Scheduled 2022-08-06 COLONOSCOPY SCREENING [facility] Test 12:50:33 [code = COLONOSCOPY SCREENING] Future Scheduled 2022-08-06 SHINGLES VACCINES (1 Met [facility] Test 12:50:33 of 2) [code = SHINGLES VACCINES (1 of 2)] Future Scheduled 2022-08-06 COVID-19 VACCINE (2 - [facility] Test 12:50:33 Moderna series) [code = COVID-19 VACCINE (2 - Moderna series)] Future Scheduled 2022-08-06 INFLUENZA VACCINE Method [facility] Test 12:50:33 [code = INFLUENZA VACCINE] Future Scheduled 2022-07-23 HEPATITIS B VACCINES [facility] Test 10:07:00 (1 of 3 - 3-dose series) [code = HEPATITIS B VACCINES (1 of 3 - 3-dose series)] Future Scheduled 2022-07-23 Pneumococcal Vaccine: [facility] Test 10:07:00 Pediatrics (0 to 5 Years) and At-Risk Patients (6 to 64 Years) (1 - PCV) [code = Pneumococcal Vaccine: Pediatrics (0 to 5 Years) and At-Risk Patients (6 to 64 Years) (1 - PCV)] Future Scheduled 2022-07-23 Hepatitis C screening [facility] Test 10:07:00 (procedure) [code = 282265884] Future Scheduled 2022-07-23 Screening for [facility] Test 10:07:00 malignant neoplasm of cervix (procedure) [code = 501248368] Future Scheduled 2022-07-23 BREAST CANCER [facility] Test 10:07:00 SCREENING [code = BREAST CANCER SCREENING] Future Scheduled 2022-07-23 COLONOSCOPY SCREENING [facility] Test 10:07:00 [code = COLONOSCOPY SCREENING] Future Scheduled 2022-07-23 SHINGLES VACCINES (1 Met [facility] Test 10:07:00 of 2) [code = SHINGLES VACCINES (1 of 2)] Future Scheduled 2022-07-23 COVID-19 VACCINE (2 - [facility] Test 10:07:00 Moderna series) [code = COVID-19 VACCINE (2 - Moderna series)] Future Scheduled 2022-07-23 INFLUENZA VACCINE Method [facility] Test 10:07:00 [code = INFLUENZA VACCINE] Future Scheduled 2022-07-10 HEPATITIS B VACCINES Met [facility] Test 12:42:30 (1 of 3 - 3-dose series) [code = HEPATITIS B VACCINES (1 of 3 - 3-dose series)] Future Scheduled 2022-07-10 Pneumococcal Vaccine: [facility] Test 12:42:30 Pediatrics (0 to 5 Years) and At-Risk Patients (6 to 64 Years) (1 - PCV) [code = Pneumococcal Vaccine: Pediatrics (0 to 5 Years) and At-Risk Patients (6 to 64 Years) (1 - PCV)] Future Scheduled 2022-07-10 Hepatitis C screening [facility] Test 12:42:30 (procedure) [code = 516014823] Future Scheduled 2022-07-10 Screening for [facility] Test 12:42:30 malignant neoplasm of cervix (procedure) [code = 107429127] Future Scheduled 2022-07-10 BREAST CANCER [facility] Test 12:42:30 SCREENING [code = BREAST CANCER SCREENING] Future Scheduled 2022-07-10 COLONOSCOPY SCREENING [facility] Test 12:42:30 [code = COLONOSCOPY SCREENING] Future Scheduled 2022-07-10 SHINGLES VACCINES (1 Met [facility] Test 12:42:30 of 2) [code = SHINGLES VACCINES (1 of 2)] Future Scheduled 2022-07-10 COVID-19 VACCINE (2 - [facility] Test 12:42:30 Moderna series) [code = COVID-19 VACCINE (2 - Moderna series)] Future Scheduled 2022-07-10 INFLUENZA VACCINE Method [facility] Test 12:42:30 [code = INFLUENZA VACCINE] Future Scheduled 2022-02-08 Hepatitis C screening [facility] Test 18:08:57 (procedure) [code = 444644340] Future Scheduled 2022-02-08 Screening for [facility] Test 18:08:57 malignant neoplasm of cervix (procedure) [code = 423816227] Future Scheduled 2022-02-08 BREAST CANCER [facility] Test 18:08:57 SCREENING [code = BREAST CANCER SCREENING] Future Scheduled 2022-02-08 COLONOSCOPY SCREENING [facility] Test 18:08:57 [code = COLONOSCOPY SCREENING] Future Scheduled 2022-02-08 COVID-19 VACCINE (2 - [facility] Test 18:08:57 Moderna 3-dose series) [code = COVID-19 VACCINE (2 - Moderna 3-dose series)] Future Scheduled 2022-02-08 INFLUENZA VACCINE Method [facility] Test 18:08:57 [code = INFLUENZA VACCINE] Encounters Start End Encounter Admission Attending Care Care Encounter Source Date/Time Date/Time Type Type Clinicians Facility Department ID 2023-01-28 Outpatient [facility] [id number] [place] 00:28:20 [id number] [facility] 2023-01-27 Outpatient [facility] [id number] [place] 13:45:40 [id number] [facility] 2023-01-20 Outpatient [facility] [id number] [place] 02:18:32 [id number] [facility] 2023-01-12 Outpatient [facility] [id number] [place] 07:29:22 [id number] [facility] 2023-01-11 Outpatient [facility] [id number] [place] 22:54:54 [id number] [facility] 2023-01-07 Outpatient [facility] [id number] [place] 00:28:14 [id number] [facility] 2023-01-06 Outpatient [facility] [id number] [place] 15:49:45 [id number] [facility] 2023-01-04 Outpatient [facility] [id number] [place] 10:56:23 [id number] [facility] 2023-01-01 Outpatient [facility] [id number] [place] 05:28:12 [id number] [facility] 2022-12-31 Outpatient [facility] [id number] [place] 03:28:13 [id number] [facility] 2022-12-30 Outpatient [facility] [id number] [place] 08:57:53 [id number] [facility] 2022-12-25 Outpatient [facility] [id number] [place] 16:20:37 [id number] [facility] 2022-12-17 Outpatient [facility] [id number] [place] 10:59:09 [id number] Health 2022-12-14 Outpatient [facility] [id number] [place] 10:32:13 [id number] Health 2022-12-11 Outpatient [facility] [id number] [place] 18:27:14 [id number] Health 2022-11-24 Outpatient [facility] [id number] [place] 09:05:10 [id number] Health 2022-11-20 Outpatient [facility] [id number] [place] 09:49:12 [id number] Health 2022-10-24 Outpatient [facility] [id number] [place] 09:56:45 [id number] Health 2022-10-21 Outpatient [facility] [id number] [place] 11:48:23 [id number] [facility] 2022-08-25 Outpatient [facility] [id number] [place] 15:14:45 [id number] [facility] 2021-08-26 Outpatient [facility] [id number] [place] 10:37:07 [facility] 2021-08-09 Outpatient LINDA, [facility] [id number] [place] 11:36:26 GERALD [facility] 2023-04-13 2023-04-13 Outpatient VIDAL [place] [facility] [id number] Univers 10:00:00 10:00:00 VIDAL GALE [facility] 2023-03-30 2023-03-30 Outpatient GWEN, [facility] [id number] [place] 16:00:00 16:00:00 ISABEL nolen 2023-02-10 2023-02-10 Outpatient RON, [facility] [id number] [place] 11:30:00 11:30:00 CY Ko 2022-12-30 2022-12-30 Office Gwen, [facility] [id number] 1.2.840.114 [id number] [place] 13:30:00 14:48:25 Visit Isabel ROSS 350.1.13.58 [facility] 9.2.7.2.686 [id number] 8 2022-12-30 2022-12-30 Outpatient [facility] [id number] [place] 11:00:00 12:31:57 Health 2022-12-24 2022-12-24 Telephone [facility] [id number] Univers 00:00:00 00:00:00 Liza BAEZAPEC 350.1.13.10 ity [place] [id number] [facility] AND [address] [facility] 2022-12-10 2022-12-10 Outpatient R VIDAL GALE [facility] [id number] Univers 14:00:00 14:00:00 VIDAL GALE ity of [facility] 2022-12-08 2022-12-08 Orders Wilma Forde 1.2.182.667 [id number] Univers 00:00:00 00:00:00 Only Loyd MATTHEWS 350.1.13.10 it y of [facility] 4.2.7.2.686 Reinaldo as [id number] [place] [id number] Branch 2022-12-04 2022-12-04 Telephone [facility] 1.2.840.11 4 [id number] Univers 00:00:00 00:00:00 Bright [place] 350.1.13.10 it y [place] [id number] [place] [address] Branch 2022-12-04 2022-12-04 Telephone [facility] 1.2.840.11 4 [id number] Univers 00:00:00 00:00:00 Bright [place] 350.1.13.10 it y [place] [id number] [place] [address] Branch 2022-12-01 2022-12-01 Telephone [facility] 1.2.144.626 [id number] Univers 00:00:00 00:00:00 Liza BAEZAPEC 350.1.13.10 it[place] [id number] [facility] AND [address] [facility] 2022-11-28 2022-11-28 Outpatient R BRIGHT LAZAR [facility] B [id number] Univers 09:30:00 10:11:13 BRIGHT LAZAR ity [facility] 2022-11-28 2022-11-28 Office Nagi [facility] KRISTYN 1.2.840.114 [id number] Univers 09:30:00 10:11:13 Visit Lalitarigo TIN[place] 350.1.13.10 it y [place] [id number] [facility] 134 Branch 2022-11-28 2022-11-28 Orders Doctor ADOLPH 1.2.840.114 [id number] Univers 00:00:00 00:00:00 Only Unassigned, CASSIE 350.1.13.10 ity of [place] [facility] 4.2.7.2.686 Reinaldo [id number] [facility] 009 Branch 2022-11-27 2022-11-27 Outpatient R DEVANGBRIGHT S[address] [facility] B [id number] Univers 09:00:00 09:00:00 NAGI BRIGHT puente [facility] 2022-11-26 2022-11-26 Outpatient [facility] [id number] [place] 13:30:00 13:30:00 [facility] 2022-11-26 2022-11-26 Outpatient RADHA, [facility] [id number] [place] 09:00:00 [facility] 2022-11-19 Outpatient RADHA, [facility] [id number] [place] 08:30:00 08:30:[facility] 2022-10-28 2022-10-28 Outpatient GWEN [facility] [id number] [place] 14:00:00 14:00:00 ISABEL Heal 2022-10-28 2022-10-28 Outpatient [facility] [id number] [place] 11:00:00 11:00:00 Health 2022-10-23 2022-10-23 Outpatient RADHA, [facility] [id number] [place] 12:30:00 12:30:00 [employer] 2022-09-11 2022-09-11 Telephone Harriet [facility] [id number] [id number] Univers 00:00:00 00:00:00 Liza JETT 350.1.13.10 ity of [facility] 4.2.7.2.686 [facility] [id number] [address] [facility]ES [facility]INIC 2022-08-27 2022-08-27 Telemedici VERITO Hidalgo 6410 1.2.840.114 [id number] [place] 08:00:00 08:55:[address] 350.1.13.58 Health 9.2.7.2.686 [id number] 8 2022-08-19 2022-08-22 Observatio [facility] [id number] Memoria 18:42:22 19:34:00 n cary MaryMohan[address] 2022-08-19 2022-08-22 [facility] [id number] Memoria 16:45:00 14:34:00 [facility] 2022-07-28 2022-07-28 Office Gwen VERITO 6410 1.2.840.114 [id number] [place] 14:30:00 15:47:52 Visit Isabel GALON 350.1.13.58 Health 9.2.7.2.686 [id number] 2022-07-21 2022-07-21 Emergency X [facility] ERT [id number] Univers 15:26:00 18:24:00 TRINITY ity of [facility] 2022-07-21 2022-07-21 [facility] 1.2.840.114 [id number] Univers 15:26:00 18:24:00 Trinity TEMPLE 350.1.13.10 i ty of [place] 4.2.7.2.686 [facility] [id number] [facility] 084 Branch 2022-04-02 2022-04-02 [facility] 1.2.393.466 [id number] Univers 00:00:00 00:00:00 Liza JETT 350.1.13.10 ity [facility] 4.2.7.2.686 [facility] [id number] [address] [facility] 2022-02-03 2022-02-04 Emergency [facility] [id number] Memoria 15:10:24 01:37:00 cary Preston 04 l [facility] 2022-02-03 2022-02-03 Emergency [facility] [id number] [facility] 10:10:00 20:37:00 JOSEPH RUTHERFORD 2022-01-30 2022-01-30 [facility] [id number] Univers 14:30:00 14:30:00 [facility] 2022-01-01 2022-01-01 Orders nullFlavo [facility] [id number] Memoria 00:00:00 00:00:00 Only cary Preston 2022-01-01 2022-01-01 Orders Doctor FARFAN 1.2.840.114 [id number] Univers 00:00:00 00:00:00 Only Unassigned, CASSIE 350.1.13.10 [facility] 4.2.7.2.686 Reinaldo as [id number] [address] 2021-12-31 2021-12-31 Out[facility] [id number] Univers 14:30:00 14:30:00 [facility] 2021-11-04 2021-11-04 Laboratory Only, Ang Db Test [facility] 1.2.8 40.114 [id number] Univers 16:15:00 16:30:00 Only Kyle [facility] 350.1.13.10 ity [facility] 4.2.7.2.686 Reinaldo as BABS?BLEA [id number] [address] 2021-11-04 2021-11-04 Outpatient R KYLE, [facility] [id number] Univers 16:15:00 16:15:00 SANDIP itdenis o f [facility] 2021-09-17 2021-09-17 Design Editor angelicaFlavmarco a [facility] Health 8 [id number] Memoria 23:25:33 23:40:33 Visit cary yuen [facility] Phle[facility] 2021-09-17 2021-09-17 Design Editor Ezequiel, Adc Lab Main [facility] 1.2.8 40.114 [id number] Univers 17:25:33 17:40:33 Visit Beau Romero 350.1.13.1 0 it[place] of [place] [id number] La dical [address] 2021-09-17 2021-09-17 Outpatient R NICK [facility] [id number] Univers 16:00:00 16:00:00 BEAU [facility] 2021-09-17 2021-09-17 Orders nullFlavo [facility] [id number] Memoria 00:00:00 00:00:00 Only r alpa Preston 2021-09-17 2021-09-17 Orders Doctor ADOLPH 1.2.840.114 [id number] Univers 00:00:00 00:00:00 Only Unassigned, CASSIE 350.1.13.10 ity of [place] [facility] 4.2.7.2.686 Reinaldo as [id number] [address] 2021-08-29 2021-08-29 Outpatient Cary ZABALA [facility] [id number] Univers 13:00:00 13:00:00 EMILY [facility] 2021-08-26 2021-08-26 Office VERITO MCKEON 6400 1.2.269.136 [id number] [place] 10:03:44 10:18:[address] 350.1.13.58 Health 9.2.7.2.686 [id number] 3 2021-08-16 2021-08-16 Travel 1.2.840.1 1.2.816.705 [id number] Methodi 00:00:00 00:00:[address] 3.430.2.7 0.2.7.3.698 Ho spita .3.948805 084.8 l .8 2021-08-13 2021-08-13 Travel 1.2.840.1 1.2.245.621 [id number] Methodi 00:00:00 00:00:[address] 3.430.2.7 0.2.7.3.698 Ho spita .3.577420 084.8 l .8 2021-08-12 2021-08-12 Office [place], 1.2.840.1 [id number] 3049 Methodi 09:00:00 10:09:31 Visit Tae Campbell 14080.1.[address] 3.430.2.7 Hospit a .3.959017 l .8 2021-08-09 2021-08-10 Outpt Diag nullFlavo [facility] [id number] Memoria 15:08:00 04:59:00 Services r Outpatient 05 l Imaging Mohan Preston 2021-08-07 2021-08-07 Telephone Tl, 1.2.840.1 [id number] Methodi 00:00:00 00:00:[address] Julius 3.430.2.7 Hospi ta .3.979401 l .8 2021-08-07 2021-08-07 Travel 1.2.840.1 1.2.174.765 [id number] [id number] Methodi 00:00:00 00:00:[address] 3.430.2.7 0.2.7.3.698 Ho spita .3.857803 084.8 l .8 2021-08-06 2021-08-06 Telephone Martin, 1.2.840.1 [id number] Methodi 00:00:00 00:00:00 Tae Campbell [address]85.1.[address] 3.430.2.7 Hospit a .3.142051 l .8 2021-08-02 2021-08-02 [facility] Martin, 1.2.840.1 [id number] Methodi 13:00:00 23:59:00 Encounter Tae Campbell 57356.1.1 248 s t 3.430.2.7 Hospit a .3.084517 l .8 2021-08-02 2021-08-02 [facility], 1.2.840.1 [id number] 1483 Methodi 16:35:00 16:40:00 Tae Campbell 08776.1.[address] 3.430.2.7 Hospit a .3.229206 l .8 2021-08-02 2021-08-02 [facility], 1.2.840.1 [id number] Methodi 12:00:00 12:59:00 Encounter Tae Campbell 27080.1.1 245 s t 3.430.2.7 Hospit a .3.330514 l .8 2021-08-02 2021-08-02 [facility], 1.2.840.1 [id number] Methodi 11:00:00 11:59:00 Encounter Tae Campbell 77670.1.1 247 s t 3.430.2.7 Hospit a .3.771116 l .8 2021-08-02 2021-08-02 [facility], 1.2.840.1 [id number] 87429 Methodi 10:07:40 10:59:00 Encounter Tae Campbell 60320.1.1 246 s t 3.430.2.7 Hospit a .3.467057 l .8 2021-08-02 2021-08-02 Travel 1.2.840.1 1.2.904.184 9066 997591 Methodi 00:00:00 00:00:[address] 3.430.2.7 0.2.7.3.698 Ho spita .3.424928 084.8 l .8 2021-07-31 2021-07-31 [facility] OP Gwen, EXT MSRDP 1.2.840.114 1 [id number] [place] 00:00:00 00:00:00 Isabel LOCATION 350.1.13.58 Health 9.2.7.2.686 [id number] 0 2021-07-31 2021-07-31 [facility]T [facility] OP Gwen, EXT MSRDP 1.2.840.114 1 [id number] [place] 00:00:00 00:00:00 Isabel LOCATION 350.1.13.58 Health 9.2.7.2.686 [id number] 0 2021-07-29 2021-07-29 Travel 1.2.840.1 1.2.086.767 [id number] [id number] Methodi 00:00:00 00:00:[address] 3.430.2.7 0.2.7.3.698 Ho spita .3.963527 084.8 l .8 2021-07-10 2021-07-10 Travel 1.2.840.1 1.2.157.870 6090 [id number] Methodi 00:00:00 00:00:[address] 3.430.2.7 0.2.7.3.698 Ho spita .3.067848 084.8 l .8 2021-07-03 2021-07-03 Office [place], 1.2.840.1 [id number] Methodi 13:45:00 16:40:55 Visit Tae Campbell 37704.1.[address] 3.430.2.7 Hospit a .3.570707 l .8 2021-07-03 2021-07-03 Travel 1.2.840.1 1.2.036.665 3289 [id number] Methodi 00:00:00 00:00:[address] 3.430.2.7 0.2.7.3.698 Ho spita .3.685387 084.8 l .8 2021-07-01 2021-07-01 Travel 1.2.840.1 1.2.489.575 5601 360452 Methodi 00:00:00 00:00:[address] 3.430.2.7 0.2.7.3.698 Ho spita .3.769018 084.8 l .8 2021-05-31 2021-05-31 Office [facility] 8501 [id number] Memoria 21:24:31 21:59:54 Visit cary Preston 2021-05-31 2021-05-31 Office Mane [facility] 1.2.840.114 [id number] Univers 16:24:31 16:59:54 Visit Goyo Temple 350.1.13.10 [place] [phone] La dical [facility] 092 [facility] 2021-05-31 2021-05-31 Outpatient R GOYO CLARK [facility] [id number] Univers 16:20:00 16:20:00 GOYO CLARK [facility] 2021-05-27 2021-05-27 Outpatient Cary SIMMONS [facility] 1033 [id number] Univers 10:30:00 10:30:00 CECELIA [facility] 2021-04-30 2021-04-30 Orders nullFlavo [facility] [id number] Memoria 00:00:00 00:00:00 Only cary Preston 2021-04-30 2021-04-30 Orders Doctor FARFAN 1.2.840.114 [id number] Univers 00:00:00 00:00:00 Only Unassigned, CASSIE 350.1.13.10 ity of [place] [facility] 4.2.7.2.686 Reinaldo as [phone] [facility] 009 Branch 2021-04-04 2021-04-04 Transition nullFlavo [facility] [id number] Memoria 00:00:00 00:00:00 of Care r [facility] 2021-04-04 2021-04-04 Transition Rylie Clay 1.2.840.114 [id number] Univers 00:00:00 00:00:00 of Care Chelsey Mckeon 350.1.13.10 it y of [place] [phone] [facility] 403 Branch 2021-04-02 2021-04-03 Hospital nullFlavo Medicine [id number] Memoria 00:39:00 21:59:00 Encounter r alpa Preston (JEN 10B) 2021-04-01 2021-04-03 Hospital Steven Maloney 1.2.840.1 14 [id number] Univers 19:39:00 16:59:00 Encounter Liza Larios 350.1. 13.10 ity [facility] 4.2.7.2.686 [place] [phone] [facility] 094 Branch 2021-04-01 2021-04-03 Inpatient U HARRIET [facility] [id number] Univers 19:39:00 16:59:00 LIZA [facility] 2021-04-01 2021-04-01 Nurse nullFlavo ACCESS [id number] Memoria 00:00:00 00:00:00 Triage r MICHELLE Preston 2021-04-01 2021-04-01 Nurse ADOLPH Rutherford 1.2.181.646 [id number] Univers 00:00:00 00:00:00 Triage Christian MATTHEWS 350.1.13.10 it y of [facility] 4.2.7.2.686 Reinaldo as [phone] [facility] 019 Branch 2021-03-19 2021-03-19 Outpatient GOYO RODRIGUEZ [facility] [id number] Univers 13:00:00 13:00:00 GOYO CLARK [facility] 2021-03-04 2021-03-04 Office nullFlavo [facility] [id number] Memoria 19:56:39 21:12:00 Visit r Dana-A alpa Preston 2021-03-04 2021-03-04 Office Mane [facility] 1.2.840.114 [id number] Univers 14:56:39 16:12:00 Visit Goyo Temple 350.1.13.10 ity [facility] [place]2.7.[place] [phone] [place] 439662 [facility] 2021-03-04 2021-03-04 Outpatient GOYO RODRIGUEZ [facility] [id number] Univers 15:00:00 15:00:00 GOYO CLARK [facility] 2021-03-04 2021-03-04 Orders nullFlavo [facility] [id number] Memoria 00:00:00 00:00:00 Only cary Preston 2021-03-04 2021-03-04 Orders Doctor FARFAN 1.2.840.114 [id number] Univers 00:00:00 00:00:00 Only Unassigned, CASSIE 350.1.13.10 ity of [place] [facility] 4.2.7.2.686 Reinaldo as [phone] [facility] 009 Branch 2021-02-20 2021-02-20 Orders nullFlavo [facility] [id number] Memoria 00:00:00 00:00:00 Only cary Preston 2021-02-20 2021-02-20 Orders Doctor ADOLPH 1.2.840.114 [id number] Univers 00:00:00 00:00:00 Only Unassigned, CASSIE 350.1.13.10 ity of [place] [facility] 4.2.7.2.686 Reinaldo as [phone] [facility] 009 Branch 2021-01-23 2021-01-23 Outpatient [facility] [id number] Univers 14:00:00 14:00:00 BALJIT ity of [facility] 2021-01-19 2021-01-19 Patient nullFlavo [facility] [id number] Memoria 00:00:00 00:00:00 Outreach r Internal l Marisol - Donna [facility] 2021-01-19 2021-01-19 [facility] 1.2.840.114 [id number] 00:00:00 00:00:00 Outreach Baljit PRIMARY 350.1.13.10 [place] [facility] 4.2.7.2.686 PAVILLION [id number] [id number] 2021-01-19 2021-01-19 [facility] 1.2.840.114 [id number] Univers 00:00:00 00:00:00 Outreach Baljit PRIMARY 350.1.13.10 i ty of [place] [facility].2.[place] [phone] La dical [address] 2020-10-30 2020-10-31 Outpt Diag nullFlavo [facility] [id number] Memoria 17:48:00 05:59:00 Services r Outpatient 04 l Imaging - Salvatore n [facility] S[facility] 2020-09-27 2020-09-29 Inpatient nullFlavo [facility] [id number] Memoria 08:06:00 01:15:00 r Mohan 24 l [facility] 2020-09-28 2020-09-28 Outpatient U DANIELA, [facility] 032 4 [facility] 15:16:00 19:15:00 KRAIG 2020-09-27 2020-09-27 Emergency nullFlavo [facility] [id number] Memoria 00:28:40 07:35:00 r Mohan 03 l [facility] 2020-09-26 2020-09-27 Emergency E LASHAWN BOLES [facility] MHBL 7503 [facility] 18:28:00 01:35:00 2020-09-25 2020-09-25 [facility] 7 [id number] Memoria 00:30:16 00:50:16 Only r Family l Marisol - Donna Temple 2020-09-24 2020-09-24 Laboratory Lab, [facility] 1.2.840.114 [id number] 18:30:16 18:50:16 Only Fam Pob I Health 350.1.13.10 [place] 4.2.7.2.686 Professio [phone] [place] [address] [address] 2020-09-24 2020-09-24 Laboratory Lab, [facility] Fam Pob I [facility] 1.2. 840.114 [id number] Univers 18:30:16 18:50:16 Only Tona Mattson [facility] 350.1.13.10 ity Billy Leung [place] 4.2.7.2.686 [place] Professio [phone] La dical [address] Office [address] [facility] 2020-09-24 2020-09-24 Outpatient R SRINIVASAN [facility] [id number] Univers 18:40:00 18:40:00 OMAYLEANNEI ity [facility] 2020-09-19 2020-09-19 Orders nullFlavo [facility] [id number] Memoria 00:00:00 00:00:00 Only r alpa Preston 2020-09-19 2020-09-19 Orders Doctor FARFAN 1.2.840.114 [id number] 00:00:00 00:00:00 Only Unassigned, CASSIE 350.1.13.10 [place] 4.2.7.2.686 [phone] 009 2020-09-19 2020-09-19 Orders Doctor ADOLPH 1.2.840.114 [id number] Univers 00:00:00 00:00:00 Only Unassigned, CASSIE 350.1.13.10 ity of [place] [facility] 4.2.7.2.686 Reinaldo as [phone] [address] 2020-09-05 2020-09-05 Case nullFlavo [facility] [id number] Memoria 00:00:00 00:00:00 Management r Women's l [facility] 2020-09-05 2020-09-05 [facility] 1.2.468.936 [id number] 00:00:00 00:00:00 Management Annika Temple 350.1.13.10 [place] 4.2.7.2.686 Professio [phone] [address] 2020-09-05 2020-09-05 Case [facility] 1.2.880.725 [id number] 6007 [facility] 00:00:00 00:00:00 Management Annika Temple 350.1.13.10 [place] [phone] La dical [address] 2020-08-30 2020-08-30 Office [facility] [id number] Memoria 19:45:50 20:47:54 Visit r Sheree's l [facility] 2020-08-30 2020-08-30 Office [facility] 1.2.029.734 [id number] Univers 14:45:50 15:47:54 Visit Annika Temple 350.1.13.10 i [place] [phone] La dical [address] 2020-08-30 2020-08-30 Outpatient R [facility] [id number] Univers 14:30:00 14:30:00 ANNIKA puente [facility] 2020-08-30 2020-08-30 Orders nullFlavo [facility] [id number] Memoria 00:00:00 00:00:00 Only r alpa Paterson 2020-08-30 2020-08-30 Orders Doctor ADOLPH 1.2.840.114 [id number] Univers 00:00:00 00:00:00 Only Unassigned, CASSIE 350.1.13.10 ity [facility] 4.2.7.2.686 Reinaldo as [phone] [address] 2020-05-03 2020-05-04 Outpt Diag nullFlavo [facility] [id number] Memoria 20:48:00 04:59:00 Services r Outpatient 02 l Imaging [facility] 2020-04-25 2020-04-25 Emergency nullFlavo [facility] 38103 [id number] Memoria 02:30:41 08:03:00 r Mohan 02 l [facility] 2020-04-24 2020-04-25 Emergency [facility] 21:30:00 03:03:00 JOSEPH RUTHERFORD 2020-04-12 2020-04-13 Outpt Diag nullFlavo [facility] [id number] Memoria 19:22:00 04:59:00 Services r Outpatient 01 l [facility] 2020-03-19 2020-03-22 Inpatient nullFlavo [facility] 73937 [id number] Memoria 09:07:00 20:45:00 cary Paterson 32 l [facility] 2020-03-19 2020-03-22 Inpatient U DHOBLE, [facility] CAR 0132 [facility] 04:07:00 15:45:00 KELLI 2020-03-19 2020-03-19 Emergency nullFlavo [facility] [id number] Memoria 05:18:53 08:25:00 r Paterson 01 l [facility] 2020-03-19 2020-03-19 Emergency E DIANA BL MHBL 7501 MHBL 00:18:00 03:25:00 MICHELINE 2020-03-18 2020-03-18 Nurse nullFlavo ACCESS [id number] Memoria 00:00:00 00:00:00 Triage r CENTER [facility] 2020-03-18 2020-03-18 Nurse Emily Isabell ADOLPH 1.2.840.114 [id number] Univers 00:00:00 00:00:00 Triage CASSIE 350.1.13.10 it [facility] 4.2.7.2.686 Re[place]do as [phone] [place] [address] Branch 2019-08-03 2019-08-04 Day nullFlavo [facility] [id number] Memoria 15:08:00 04:59:00 Surgery r Paterson 00 l [facility] 2019-08-03 2019-08-03 Outpatient [facility] 7500 [facility] 10:08:00 10:08:00 2019-06-20 2019-06-21 Outpt Diag nullFlavo [facility] 52657 [id number] Memoria 19:02:00 04:59:00 Services r Outpatient 00 l [facility] 2019-05-22 2019-05-[address] [facility] [id number] Memoria 23:21:00 11:04:00 Inpatient r [facility] [place] 2019-04-05 2019-04-[address] [facility] [id number] Memoria 21:20:00 13:53:00 Inpatient r [facility] [place] 2019-03-31 2019-03-[address] [facility] [id number] Memoria 18:35:00 23:11:00 Emergency r [facility] [place] 2019-03-03 2019-03-[address] [facility] [id number] Memoria 17:02:00 17:02:00 Referred r [facility] 28 l [place] Results Test Description Test Time Test Comments Results Result Comments Source TSH-LC 2022-12-09 13:09:00 Test Item Value Reference Range Interpretation Comme nts TSH- (test code = 1.230 See_Comment [Automa theodore message] The 09036-0) system which ge nerated this result transmit theodore reference range: 0.450 - 4.500 uIU/mL. The reference r kendell was not used to interpr et this result as david l/abnormal. SHEILA (test code = SHEILA) PERFORMED BY [address] [id number] ; [phone]; ; MD Tere Yuen ? [facility] [id number] 13:09:00 Test Item Value Reference Range Interpretation Comments Thyroid Peroxidase <9 See_Comment [Automat ed (TPO) Ab-LC (test message] T system code = 8099-4) which generat ed this result transmitted reference range : 0 - 34 IU/mL. The reference range was not used to interpret this result as normal/abnormal . SHEILA (test code = PERFORMED BY SHEILA) [address] [id number] ; [id number]; ; MD Tere Yuen ? [facility]-UF3079-52-25 13:09:00 Test Item Value Reference Range Interpretation Comments TSH-LC (test 1.230 See_Comment [Automated mes dayanna] code = The system Theraclone Sciencesic h 31274-9) generated this result transmitted ref erence range: 0.450 - 4.500 uIU/mL. The ref erence range was not u sed to interpret this result as normal/abnor mal. SHEILA (test code PERFORMED BY = SHEILA) [address] [id number] ; [phone]; ; MD Tere Yuen ? [facility]TPO) [id number] 13:09:00 Test Item Value Reference Range Interpretation Comments Thyroid Peroxidase <9 See_Comment [Automat ed (TPO) Ab-LC (test message] [facility] system code = 8099-4) which generat ed this result transmitted reference range : 0 - 34 IU/mL. The reference range was not used to interpret this result as normal/abnormal . SHEILA (test code = PERFORMED BY SHEILA) [address] [id number] ; [id number]; ; MD Tere Yuen ? [facility]2022-10-13 17:04:00 Test Item Value Reference Range Interpretation Comments Glucose Lvl (test code = Glucose Lvl) 95 70-99 [facility]RdcehgkRFBWZKIST3101-73-75 17:04:00 Test Item Value Reference Range Interpretation Comments BUN (test code = BUN) 18 7-22 [facility] ClinicCalpegvQXNHRRBQP7579-36-53 17:04:00 Test Item Value Reference Range Interpretation Comments Creatinine Lvl (test code = Creatinine 1.12 0.50-1.40 Lvl) [facility] ClinicOyovwuaUWTLTVBKZ4427-47-19 17:04:00 Test Item Value Reference Range Interpretation Comments Sodium Lvl (test code = Sodium Lvl) 141 135-145 [facility] ClinicObrbpauCTCSUHQRB6266-52-22 17:04:00 Test Item Value Reference Range Interpretation Comments Potassium Lvl (test code = Potassium 4.2 3.5-5.1 Lvl) [facility] ClinicQssrkjmZRITCRWYT5008-35-89 17:04:00 Test Item Value Reference Range Interpretation Comments Chloride Lvl (test code = Chloride Lvl) 114 95-109 [facility] ClinicWqzvjmcLIFTVLCHL8102-15-76 17:04:00 Test Item Value Reference Range Interpretation Comments CO2 (test code = CO2) 24 24-32 [facility] ClinicZqsqqrfJNZPODOET4929-66-62 17:04:00 Test Item Value Reference Range Interpretation Comments Calcium Lvl (test code = Calcium Lvl) 8.9 8.5-10.5 [facility] ClinicZlrzrhoMVACCEWVJ5367-49-08 17:04:00 Test Item Value Reference Range Interpretation Comments AGAP (test code = AGAP) 7.2 10.0-20.0 [facility] ClinicGedlctpUZXNFZEWY8074-73-51 17:04:00 Test Item Value Reference Range Interpretation Comments eGFR (test code = eGFR) 57 [facility]1649[facility]15-77 17:04:00 Test Item Value Reference Range Interpretation Comments WBC (test code = WBC) 7.1 3.7-10.4 [place] 224262-10-13 17:04:00 Test Item Value Reference Range Interpretation Comments RBC (test code = RBC) 3.66 4.20-5.40 [place] 224262-10-13 17:04:00 Test Item Value Reference Range Interpretation Comments Hgb (test code = Hgb) 11.7 12.0-16.0 [place] 224262-10-13 17:04:00 Test Item Value Reference Range Interpretation Comments Hct (test code = Hct) 34.6 36.0-48.0 [facility]osnmuJJZIOESLVS6839-64-94 17:04:00 Test Item Value Reference Range Interpretation Comments MCV (test code = MCV) 94.5 80.0-98.0 [place] [address]-10-13 17:04:00 Test Item Value Reference Range Interpretation Comments MCH (test code = MCH) 32.0 pg 27.0-31.0 [place] [address]-10-13 17:04:00 Test Item Value Reference Range Interpretation Comments MCHC (test code = MCHC) 33.9 32.0-36.0 [place] [address]-10-13 17:04:00 Test Item Value Reference Range Interpretation Comments RDW (test code = RDW) 13.8 11.5-14.5 [place] [address]-10-13 17:04:00 Test Item Value Reference Range Interpretation Comments Platelet (test code = Platelet) 203 133-450 [place] 224262-10-13 17:04:00 Test Item Value Reference Range Interpretation Comments MPV (test code = MPV) 7.4 7.4-10.4 [place] [address]-10-13 17:04:00 Test Item Value Reference Range Interpretation Comments Segs (test code = Segs) 77.8 45.0-75.0 [place] [address]-10-13 17:04:00 Test Item Value Reference Range Interpretation Comments Lymphocytes (test code = Lymphocytes) 13.0 20.0-40.0 [place] [address]-10-13 17:04:00 Test Item Value Reference Range Interpretation Comments Monocytes (test code = Monocytes) 6.3 2.0-12.0 [place] [address]-10-13 17:04:00 Test Item Value Reference Range Interpretation Comments Eosinophils (test code = 2.4 See_Comment [A utomated message] The Eosinophils) system which ge nerated this result tra nsmitted reference range : <=4.0. The reference r kendell was not used to int erpret this result as normal/abnormal . [place] [address]-10-13 17:04:00 Test Item Value Reference Range Interpretation Comments Basophils (test code = 0.5 See_Comment [Aut omated message] The Basophils) system which ge nerated this result tra nsmitted reference range : <=1.0. The reference r kendell was not used to int erpret this result as normal/abnormal . [facility]ytgajnWTTYMSDDJW8164-11-82 17:04:00 Test Item Value Reference Range Interpretation Comments Neutrophils # (test code = Neutrophils 5.5 1.5-8.1 #) [facility]VpypilxVQNNIOFFKM9423-75-77 17:04:00 Test Item Value Reference Range Interpretation Comments Lymphocytes # (test code = Lymphocytes 0.9 1.0-5.5 #) [facility]KwewlntAEJVAIOSYW5961-35-51 17:04:00 Test Item Value Reference Range Interpretation Comments Monocytes # (test code 0.4 See_Comment [Aut omated message] The = Monocytes #) system which generated this result tra nsmitted reference range : <=0.8. The reference r kendell was not used to int erpret this result as normal/abnormal . [facility]entonTfsgstrOHKDBVLKWR4714-75-72 17:04:00 Test Item Value Reference Range Interpretation Comments Eosinophils # (test code 0.2 See_Comment [A utomated message] The = Eosinophils #) system whic h generated this result tra nsmitted reference range : <=0.5. The reference r kendell was not used to int erpret this result as normal/abnormal . [place] 23177022-10-12 20:43:08 Test Item Value Reference Range Interpretation Comments RADRPT (test code = PROCEDURE INFORMATION: RADRPT) Exam: MR Head Without Contrast Exam date and time: 08/20/2022 2:54 PM Age: 57 years old Clinical indication: Behavioral changes/altered ms TECHNIQUE: Imaging protocol: Magnetic resonance imaging of the head without contrast. COMPARISON: BRAIN WO CONTRAST CT 08/19/2022 3:35 PM FINDINGS: Limitations: Assessment is limited by motion artifacts. Brain: No evidence of acute hemorrhage or infarct. No mass effect or midline shift.Mild volume loss and chronic small vessel ischemic changes. 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 Moderate-sized encephalomalacia/gliosis in the left lateral cerebellum with overlying craniotomy changes. Recommend correlation with prior surgical history. Further assessment with contrast-enhanced study may be considered as warranted. Cerebral ventricles: Unremarkable for age. Bones/joints: See "Brain" finding. Paranasal sinuses: Normal as visualized. No acute sinusitis. Mastoid air cells: Normal as visualized. No mastoid effusion. Orbital cavities: Unremarkable. Vasculature: Central major flow voids appear maintained within the limitations. Soft tissues: Unremarkable. IMPRESSION: 1. No evidence of acute hemorrhage or infarct. 2. Mild volume loss and chronic microangiopathy. 3. 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 4. Left lateral cerebellar encephalomalacia/gliosis with overlying craniotomy. Recommend correlation with prior surgical history. Further assessment with contrast-enhanced study may be considered as warranted. Cecelia Wolf MD On 08/20/2022 15:42:19; [id number] [place] [address]-10-12 09:55:00 Test Item Value Reference Range Interpretation Comments HS Troponin I 1 Hr (test code = HS 6 Troponin I 1 Hr) [address]10-12 09:55:00 Test Item Value Reference Range Interpretation Comments HS Troponin I 0 to 1 See Note 3(08/20/22 Hour Delta (test code = 4:55 AM) HS Troponin I 0 to 1 Hour Delta) [place] [address]-10-12 09:55:00 Test Item Value Reference Range Interpretation Comments B/C Ratio (test code = B/C Ratio) 21 1 6-25 [place] [address]-10-12 09:55:00 Test Item Value Reference Range Interpretation Comments Total Protein (test code = Total 6.3 6.4-8.4 Protein) [place] [address]-10-12 09:55:00 Test Item Value Reference Range Interpretation Comments Albumin Lvl (test code = Albumin Lvl) 3.0 3.5-5.0 [place] [address]-10-12 09:55:00 Test Item Value Reference Range Interpretation Comments Globulin (test code = Globulin) 3.3 2.7-4.2 [place] [address]-10-12 09:55:00 Test Item Value Reference Range Interpretation Comments A/G Ratio (test code = A/G Ratio) 0.9 1 0.7-1.[address]10-12 09:55:00 Test Item Value Reference Range Interpretation Comments ALT (test code = ALT) 31 See_Comment [Auto mated message] The system which ge nerated this result transmit theodore reference range : <=65. The reference range was not used to interpr et this result as david l/abnormal. [facility] ClinicDzrgpbvMITHYGTLX7467-94-16 09:55:00 Test Item Value Reference Range Interpretation Comments AST (test code = AST) 21 See_Comment [Auto mated message] The system which ge nerated this result transmit theodore reference range : <=37. The reference range was not used to interpr et this result as david l/abnormal. [facility] ClinicZovwnszAJVDRUMKY4136-42-98 09:55:00 Test Item Value Reference Range Interpretation Comments Alk Phos (test code = Alk Phos) 76 39-136 [facility] ClinicVlwfxvtXWIEHVUCI0961-87-55 09:55:00 Test Item Value Reference Range Interpretation Comments Bili Total (test code = Bili Total) 0.5 0.2-1.3 [facility] ClinicSutspthMLGSVOZOA7527-51-56 09:55:00 Test Item Value Reference Range Interpretation Comments Ammonia (test code = Ammonia) 20.0 [facility]4247-31-66 09:55:00 Test Item Value Reference Range Interpretation Comments HIV Ag/Ab 4th Gen Negative *NA*(08/20/22 (test code = HIV 4:55 AM) Ag/Ab 4th Gen) [place] 23177022-10-11 21:24:31 Test Item Value Reference Range Interpretation Comments RADRPT (test code PROCEDURE INFORMATION: Exam: = RADRPT) XR Chest Exam date and time: 08/19/2022 3:36 PM Age: 57 years old Clinical indication: /undifferentiated sepsis TECHNIQUE: Imaging protocol: Radiologic exam of the chest. Views: 1 view. COMPARISON: CHEST 1VIEW DX 02/03/2022 10:57 AM FINDINGS: Lungs: No focal airspace disease or evidence of pulmonary edema. Pleural spaces: No pleural effusion. No pneumothorax. Heart/Mediastinum: Normal appearance of the cardiomediastinal silhouette. Vasculature: Aortic stent graft in place. Bones/joints: Versus right shoulder arthroplasty. No acute osseous abnormality. IMPRESSION: No acute cardiopulmonary abnormality. Wanda Lopez MD On 08/19/2022 16:23:37; [id number] [facility] FallsObspmijOQKTGO9544-00-90 20:44:29 Test Item Value Reference Range Interpretation Comments RADRPT (test code Radiation Dose CTDIVOL = 0 = RADRPT) (mGy): DLP = 1198 (mGy-cm)PROCEDURE INFORMATION: Exam: CT Head Without Contrast Exam date and time: 08/19/2022 3:35 PM Age: 57 years old Clinical indication: /altered mental status TECHNIQUE: Imaging protocol: Computed tomography of the head without contrast. Radiation optimization: All CT scans at this facility use at least one of these dose optimization techniques: automated exposure control; mA and/or kV adjustment per patient size (includes targeted exams where dose is matched to clinical indication); or iterative reconstruction. COMPARISON: BRAIN WO CONTRAST MRI 02/03/2022 7:07 PM RADIATION DOSE METRICS: Total DLP (mGy-cm): 1198 FINDINGS: Brain: Left retrosigmoid craniotomy. Encephalomalacia in the left lateral cerebellum. Otherwise, intracranial structures are grossly unremarkable.There is no evidence of acute intracranial hemorrhage, subacute territorial infarct, mass effect or midline shift. No extra-axial fluid collection. Please note that acute infarcts can be occult on CT scan. Cerebral ventricles: Unremarkable for age. Paranasal sinuses: Visualized sinuses are unremarkable. No fluid levels. Mastoid air cells: Visualized mastoid air cells are well aerated. Bones/joints: Unremarkable. No acute fracture. Soft tissues: Unremarkable. IMPRESSION: No evidence of acute intracranial process. Stable postsurgical changes in the left posterior fossa.COMMENTS: If there is a persistent concern for acute intracranial process, emergent assessment with MRI or CTA is recommended. Cecelia Wolf MD On 08/19/2022 15:43:33; [id number] [facility] ClinicTkxrpltUTOPMBYXV7680-66-62 19:54:00 Test Item Value Reference Range Interpretation Comments Procalcitonin Lvl <0.05 ng/mL See_Comment [Automate d message] (test code = The system whic h Procalcitonin Lvl) generated this result transmit theodore reference range : <=0.10. The reference range was not used to interpret this result as normal/abnormal . [facility] ClinicRjzfyiwPPNHGNUPV2643-95-53 19:54:00 Test Item Value Reference Range Interpretation Comments Lactic Acid Lvl (test code = Lactic 0.6 0.5-2.2 Acid Lvl) [facility] ClinicFwhfcsaYTLHPFYHC2272-55-53 19:54:00 Test Item Value Reference Range Interpretation Comments Total CK (test code = Total CK) 257 12-191 [facility] ClinicPgayooxUDRWUBSCK1268-38-42 19:54:00 Test Item Value Reference Range Interpretation Comments pH Art (test code = pH Art) 7.36 1 7.35-7.45 [facility] ClinicFxbxksvIYSRYATBH0210-74-03 19:54:00 Test Item Value Reference Range Interpretation Comments pCO2 Art (test code = pCO2 Art) 46 35-45 [facility]hobfgdKMEJWTBDG0216-45-38 19:54:00 Test Item Value Reference Range Interpretation Comments pO2 Art (test code = pO2 Art) 60 80-100 [facility] CenterSnosiuwCKMXDFEGR6930-93-55 19:54:00 Test Item Value Reference Range Interpretation Comments HCO3 Art (test code = HCO3 Art) 26 22-26 [facility] ClinicEdkiqsiZIBLCZOHA6757-02-50 19:54:00 Test Item Value Reference Range Interpretation Comments BE Art (test code = BE Art) 0 -2-2 [facility] ClinicByoubazULBUKKULA9764-28-04 19:54:00 Test Item Value Reference Range Interpretation Comments O2 Sat Art (calc) (test code = O2 Sat 89.0 95.0-100.0 Art (calc)) [facility] ClinicPqcpzglCPMFIVBRE2552-11-77 19:54:00 Test Item Value Reference Range Interpretation Comments Site Art (test code = Art Cord (08/19/22 2:54 Site Art) PM) [facility] ClinicXjgndkkRGXNLXDRY8789-06-02 19:54:00 Test Item Value Reference Range Interpretation Comments Temp Art (test code = Temp Art) 37.0 [facility] ClinicDhlaolpSFTQXOAAO9604-40-27 19:54:00 Test Item Value Reference Range Interpretation Comments TSH (test code = TSH) 0.764 0.360-3.740 [facility] ClinicRufliefDAMJTZFUJ7071-26-35 19:54:00 Test Item Value Reference Range Interpretation Comments Ethanol Lvl (test code = Ethanol Lvl) 3 [facility] ClinicQwrnbpiQTYTLIZFX7769-01-69 19:54:00 Test Item Value Reference Range Interpretation Comments Etoh (%) (test code = Etoh (%)) 0.003 [facility] ClinicYgfhxmpWWELTKPZY3062-18-32 19:54:00 Test Item Value Reference Range Interpretation Comments U Amph Scr (test code Negative *NA*(08/19/22 = U Amph Scr) 2:54 PM) [facility] ClinicZtzgbxzWGGKAIDSS7342-47-45 19:54:00 Test Item Value Reference Range Interpretation Comments U Parisa Scr (test code Negative *NA*(08/19/22 = U Parisa Scr) 2:54 PM) [facility] ClinicFozfwyjQPGKVYOHS1109-88-71 19:54:00 Test Item Value Reference Range Interpretation Comments U Benzodiaz Scr (test Negative *NA*(08/19/22 code = U Benzodiaz Scr) 2:54 PM) [facility] ClinicFwotgobGGYFOBGMV2567-12-83 19:54:00 Test Item Value Reference Range Interpretation Comments U Cocaine Scr (test Negative *NA*(08/19/22 code = U Cocaine Scr) 2:54 PM) [facility] ClinicPrnfyczXASPXFUEI8132-13-47 19:54:00 Test Item Value Reference Range Interpretation Comments U Cannab Scr (test Negative *NA*(08/19/22 code = U Cannab Scr) 2:54 PM) [facility] ClinicLtxbpivSHBWMOMZD4625-50-16 19:54:00 Test Item Value Reference Range Interpretation Comments U Opiate Scr (test Positive *ABN*(08/19/22 code = U Opiate Scr) 2:54 PM) [facility] ClinicUeilfwqSCLMMEVJB9241-69-64 19:54:00 Test Item Value Reference Range Interpretation Comments U Phencyclidine Scr (test Negative code = U Phencyclidine *NA*(08/19/22 2:54 Scr) PM) [facility] ClinicQmmtqwsRVLQXAGDG2258-71-66 19:54:00 Test Item Value Reference Range Interpretation Comments UDS Note (test code = See Note (08/19/22 2:54 UDS Note) PM) [facility] ClinicXbkfzogGTFOEGGEQ7023-29-10 19:54:00 Test Item Value Reference Range Interpretation Comments Acetaminoph Lvl (test code = no gt 08-28 Acetaminoph Lvl) [facility] ClinicRyomsjzOFCHESWRL3634-39-38 19:54:00 Test Item Value Reference Range Interpretation Comments Salicylate Lvl (test 2.3 See_Comment [Autom ated message] The code = Salicylate Lvl) syste m which generated this result tra nsmitted reference range : <=30.0. The reference r kendell was not used to int erpret this result as normal/abnormal . [facility] ClinicGfvejouPHYABUVJE4597-30-23 19:54:00 Test Item Value Reference Range Interpretation Comments HS Troponin I Baseline (test code = HS 4 Troponin I Baseline) [facility]drnnufYXMFNERHNA8561-30-92 19:54:00 Test Item Value Reference Range Interpretation Comments PT (test code = PT) 13.0 s 12.0-14.7 [facility]NteeahyHZKCITEAPD7654-43-36 19:54:00 Test Item Value Reference Range Interpretation Comments INR (test code = INR) 0.99 1 0.85-1.17 [facility]WhehkpoMDZKITWTMP8585-38-78 19:54:00 Test Item Value Reference Range Interpretation Comments PTT (test code = PTT) 33.5 s 22.9-35.8 [facility]entonToburvoIKSEXPMNLI7878-03-17 19:54:00 Test Item Value Reference Range Interpretation Comments Basophils # (test code 0.1 See_Comment [Aut omated message] The = Basophils #) system which generated this result tra nsmitted reference range : <=0.2. The reference r kendell was not used to int erpret this result as normal/abnormal . [facility] [id number] 19:54:00 Test Item Value Reference Range Interpretation Comments UA Color (test code = Yellow *NA*(08/19/22 UA Color) 2:54 PM) [facility] AND [id number] 19:54:00 Test Item Value Reference Range Interpretation Comments UA Turbidity (test code = Clear (08/19/22 2:54 UA Turbidity) PM) [facility] [id number] 19:54:00 Test Item Value Reference Range Interpretation Comments UA Spec Grav (test code = UA Spec 1.010 1 Grav) [facility] [id number] 19:54:00 Test Item Value Reference Range Interpretation Comments UA pH (test code = UA pH) 7.0 1 5.0-8.0 [facility] AND [id number] 19:54:00 Test Item Value Reference Range Interpretation Comments UA Protein (test code Negative (08/19/22 2:54 = UA Protein) PM) [facility] [id number] 19:54:00 Test Item Value Reference Range Interpretation Comments UA Glucose (test code Negative (08/19/22 2:54 = UA Glucose) PM) [facility] AND [id number] 19:54:00 Test Item Value Reference Range Interpretation Comments UA Ketones (test code Negative *NA*(08/19/22 = UA Ketones) 2:54 PM) [facility] [id number] 19:54:00 Test Item Value Reference Range Interpretation Comments UA Bili (test code = Negative *NA*(08/19/22 UA Bili) 2:54 PM) [facility] [id number] 19:54:00 Test Item Value Reference Range Interpretation Comments UA Blood (test code = Negative (08/19/22 2:54 UA Blood) PM) [facility] VCZKQ6670-77-00 19:54:00 Test Item Value Reference Range Interpretation Comments UA Urobilinogen (test code = UA 0.2 0.1-1.0 Urobilinogen) [facility] [id number] 19:54:00 Test Item Value Reference Range Interpretation Comments UA Nitrite (test code Negative (08/19/22 2:54 = UA Nitrite) PM) [facility] [id number] 19:54:00 Test Item Value Reference Range Interpretation Comments UA Leuk Est (test code Small *ABN*(08/19/22 = UA Leuk Est) 2:54 PM) [facility] [id number] 19:54:00 Test Item Value Reference Range Interpretation Comments UA Sq Epi (test code = UA Sq Epi) Rare /LPF [facility] AND [id number] 19:54:00 Test Item Value Reference Range Interpretation Comments UA WBC (test code = UA WBC) 0-2 /HPF [facility] AND [id number] 19:54:00 Test Item Value Reference Range Interpretation Comments UA RBC (test None Seen See_Comment [Automated mes dayanna] code = UA RBC) (08/19/22 2:54 The system which PM) generated this result transmitted ref erence range: <=2. The reference range was not used to int erpret this result as normal/abnormal . [facility] [id number] 19:54:00 Test Item Value Reference Range Interpretation Comments UA Bacteria (test code = UA Occasional /HPF Bacteria) [facility] [id number] 19:54:00 Test Item Value Reference Range Interpretation Comments UA Renal Epi (test code = UA Renal 0-2 /LPF Epi) [facility]: [id number] 19:54:00 Test Item Value Reference Range Interpretation Comments Culture: Blood (test code No Growth At 4 Days = Culture: Blood) [facility] METABOLIC PANEL ([id number])2022-07-21 22:04:34 Test Item Value Reference Range Interpretation Comments NA (test code = 141 mmol/L 135-145 1782205142) K (test code = 3.8 mmol/L 3.5-5 8408740344) CL (test code = 107 mmol/L 98-108 5995274794) CO2 TOTAL (test code = 23 mmol/L 23-31 4873624450) AGAP (test code = 2-16 1494092665) BUN (test code = 13 mg/dL 7-23 1030491054) GLUCOSE (test code = 82 mg/dL 70-110 4615361484) CREATININE (test code = 0.92 mg/dL 0.5-1.04 1342705627) TOTAL BILI (test code = 1.5 mg/dL 0.1-1.1 H 5094379753) CALCIUM (test code = 10.0 mg/dL 8.6-10.6 5120573972) T PROTEIN (test code = 6.5 g/dL 6.3-8.2 4792990449) ALBUMIN (test code = 4.5 g/dL 3.5-5 6109669537) ALK PHOS (test code = 103 U/L 34-122 3175285570) ALTv (test code = 30 U/L 5-35 2-6) AST(SGOT) (test code = 30 U/L 13-40 6010043653) eGFR (test code = mL/min/1.73m2 5192232371) SHEILA (test code = SHEILA) Association of [...] tests). Lab Interpretation Abnormal (test code = 15095-2) [facility] WITH [id number] 22:01:15 Test Item Value Reference Range Interpretation Comments WBC (test code = See_Comment [Automated 4390-2) message] The sy stem which generated this result transmitted reference range : 4.30 - 11.10 10*3/?L. The reference range was not used to interpret this result as normal/abnormal . RBC (test code = See_Comment [Automated 272-8) message] The sy stem which generated this result transmitted reference range : 3.93 - 5.25 10*6/?L. The reference range was not used to interpret this result as normal/abnormal . HGB (test code = 13.8 g/dL 11.6-15 718-7) HCT (test code = 39.0 % 35.7-45.2 4544-3) MCV (test code = 88.6 fL 80.6-95.5 787-2) MCH (test code = 31.4 pg 25.9-32.8 785-6) MCHC (test code = 35.4 g/dL 31.6-35.1 H 786-4) RDW-SD (test code = 39.1 fL 39-49.9 60458-6) RDW-CV (test code = 12.0 % 12-15.5 788-0) PLT (test code = See_Comment [Automated 777-3) message] The sy stem which generated this result transmitted reference range : 166 - 358 10*3/ ?L. The reference r kendell was not used to interpret this result as normal/abnormal . MPV (test code = 8.9 fL 9.5-12.9 L 09920-5) NRBC/100 WBC (test See_Comment [Automat ed code = 8330172743) message] The system which generated this result transmitted reference range : 0.0 - 10.0 /100 WBCs. The refer ence range was not u sed to interpret th is result as normal/abnormal . NRBC x10^3 (test code See_Comment [Auto mated = 0824832480) message] The s ystem which generated this result transmitted reference range : 10*3/?L. The reference range was not used to interpret this result as normal/abnormal . GRAN MAT (NEUT) % 78.0 % (test code = 770-8) IMM GRAN % (test code 0.40 % = 3519511224) LYMPH % (test code = 16.5 % 736-9) MONO % (test code = 4.1 % 5905-5) EOS % (test code = 0.3 % 713-8) BASO % (test code = 0.7 % 706-2) GRAN MAT x10^3(ANC) 5.98 10*3/uL 1.88-7.09 (test code = 7938556279) IMM GRAN x10^3 (test 0.03 10*3/uL 0-0.06 code = 5525433091) LYMPH x10^3 (test code 1.26 10*3/uL 1.32-3.29 L = 731-0) MONO x10^3 (test code 0.31 10*3/uL 0.33-0.92 L = 742-7) EOS x10^3 (test code = 0.03-0.39 L 711-2) BASO x10^3 (test code 0.05 10*3/uL 0.01-0.07 = 704-7) Lab Interpretation Abnormal (test code = 40697-5) [facility] 19:32:00 Test Item Value Reference Range Interpretation Comments Ethanol Lvl (test code = Ethanol <3.0 mg/dL Lvl) [facility] OvhgzxaOEOTMRSEKB4399-08-80 19:32:00 Test Item Value Reference Range Interpretation Comments Etoh (%) (test code = Etoh (%)) <0.003 % [facility] [id number] 19:26:00 Test Item Value Reference Range Interpretation Comments U Amph Scr (test code Negative *NA*(02/03/22 = U Amph Scr) 2:26 PM) [facility] [id number] 19:26:00 Test Item Value Reference Range Interpretation Comments U Parisa Scr (test code Negative *NA*(02/03/22 = U Parisa Scr) 2:26 PM) [facility] [id number] 19:26:00 Test Item Value Reference Range Interpretation Comments U Benzodiaz Scr (test Negative *NA*(02/03/22 code = U Benzodiaz Scr) 2:26 PM) [facility] LMWTGZ3642-43-21 19:26:00 Test Item Value Reference Range Interpretation Comments U Cocaine Scr (test Negative *NA*(02/03/22 code = U Cocaine Scr) 2:26 PM) [facility] FPPLKW5134-36-72 19:26:00 Test Item Value Reference Range Interpretation Comments U Cannab Scr (test Negative *NA*(02/03/22 code = U Cannab Scr) 2:26 PM) [facility] [id number] 19:26:00 Test Item Value Reference Range Interpretation Comments U Opiate Scr (test Positive *ABN*(02/03/22 code = U Opiate Scr) 2:26 PM) [facility] [id number] 19:26:00 Test Item Value Reference Range Interpretation Comments U Phencyclidine Scr (test Negative code = U Phencyclidine *NA*(02/03/22 2:26 Scr) PM) [facility] [id number] 19:26:00 Test Item Value Reference Range Interpretation Comments UDS Note (test code = See Note (02/03/22 2:26 UDS Note) PM) [facility] [id number] 19:26:00 Test Item Value Reference Range Interpretation Comments UA Turbidity (test code = Clear (02/03/22 2:26 UA Turbidity) PM) [facility] [id number] 19:26:00 Test Item Value Reference Range Interpretation Comments UA Spec Grav (test code = UA Spec 1.003 1 Grav) [facility] AND [id number] 19:26:00 Test Item Value Reference Range Interpretation Comments UA pH (test code = UA pH) 8.0 1 5.0-8.0 [facility] [id number] 19:26:00 Test Item Value Reference Range Interpretation Comments UA Protein (test code = UA Negative mg/dL Protein) [facility] [id number] 19:26:00 Test Item Value Reference Range Interpretation Comments UA Glucose (test code = UA Negative mg/dL Glucose) [facility] [id number] 19:26:00 Test Item Value Reference Range Interpretation Comments UA Ketones (test code = UA Negative mg/dL Ketones) [facility] [id number] 19:26:00 Test Item Value Reference Range Interpretation Comments UA Bili (test code = Negative *NA*(02/03/22 UA Bili) 2:26 PM) [facility] [id number] 19:26:00 Test Item Value Reference Range Interpretation Comments UA Blood (test code = Small *ABN*(02/03/22 UA Blood) 2:26 PM) [facility] [id number] 19:26:00 Test Item Value Reference Range Interpretation Comments UA Nitrite (test code Negative (02/03/22 2:26 = UA Nitrite) PM) [facility] [id number] 19:26:00 Test Item Value Reference Range Interpretation Comments UA Leuk Est (test Negative (02/03/22 2:26 code = UA Leuk Est) PM) [facility] [id number] 19:26:00 Test Item Value Reference Range Interpretation Comments UA Sq Epi (test code = UA Sq Epi) None Seen [facility] [id number] 19:26:00 Test Item Value Reference Range Interpretation Comments UA Color (test code = UA Color) COLORLESS [facility] [id number] 19:26:00 Test Item Value Reference Range Interpretation Comments UA Urobilinogen (test code = UA <=1.0 mg/dL 0.1-1.0 Urobilinogen) [facility]sup[facility]fEFXLJVCFFT2006-[facility] 18:45:00 Test Item Value Reference Range Interpretation Comments Coronavirus (COVID-19) Not Detected (02/03/22 CHRIS (test code = 1:45 PM) Coronavirus (COVID-19) CHRIS) [facility] [id number] 17:33:00 Test Item Value Reference Range Interpretation Comments HS Troponin I (test code = HS Troponin 4 I) [facility] UHMXWAB1336-88-26 17:33:00 Test Item Value Reference Range Interpretation Comments Total CK (test code = Total CK) 211 12-191 [facility]2022-03-28 17:33:00 Test Item Value Reference Range Interpretation Comments Glucose Lvl (test code = Glucose Lvl) 73 70-99 [facility]2022-03-28 17:33:00 Test Item Value Reference Range Interpretation Comments BUN (test code = BUN) 16 - [facility]2022-03-28 17:33:00 Test Item Value Reference Range Interpretation Comments Creatinine Lvl (test code = Creatinine 1.03 0.50-1.40 Lvl) [facility]2022-03-28 17:33:00 Test Item Value Reference Range Interpretation Comments Sodium Lvl (test code = Sodium Lvl) 137 135-145 [facility]2022-03-28 17:33:00 Test Item Value Reference Range Interpretation Comments Potassium Lvl (test code = Potassium 4.5 3.5-5.1 Lvl) [facility]2022-03-28 17:33:00 Test Item Value Reference Range Interpretation Comments Chloride Lvl (test code = Chloride Lvl) 101 95-109 [facility]2022-03-28 17:33:00 Test Item Value Reference Range Interpretation Comments CO2 (test code = CO2) 33 24-32 [place] 874822-03-28 17:33:00 Test Item Value Reference Range Interpretation Comments Calcium Lvl (test code = Calcium Lvl) 9.7 8.5-10.5 [facility]2022-03-28 17:33:00 Test Item Value Reference Range Interpretation Comments AGAP (test code = AGAP) 7.5 10.0-20.0 [facility]2022-03-28 17:33:00 Test Item Value Reference Range Interpretation Comments eGFR (test code = eGFR) 60 [facility] CenterYbvwbwhAFVPFXXUCD6350-91-98 17:33:00 Test Item Value Reference Range Interpretation Comments WBC (test code = WBC) 6.3 3.7-10.4 [facility]DpimqzkVFEYEFUCTT9191-99-00 17:33:00 Test Item Value Reference Range Interpretation Comments RBC (test code = RBC) 4.40 4.20-5.40 [facility] HospitalJutgafgRSYEIHBLNU0784-92-00 17:33:00 Test Item Value Reference Range Interpretation Comments Hgb (test code = Hgb) 14.2 12.0-16.0 [facility]htbemvJBAAOYPRKV5251-05-47 17:33:00 Test Item Value Reference Range Interpretation Comments Hct (test code = Hct) 42.3 36.0-48.0 [facility]QnvqaxbSYZCNMYQGD9845-10-98 17:33:00 Test Item Value Reference Range Interpretation Comments MCV (test code = MCV) 96.2 80.0-98.0 [facility]BwiyjmgORCMUXKBZJ9045-34-72 17:33:00 Test Item Value Reference Range Interpretation Comments MCH (test code = MCH) 32.2 pg 27.0-31.0 [facility]entonSaobllqBAVMEANVMX5064-95-32 17:33:00 Test Item Value Reference Range Interpretation Comments MCHC (test code = MCHC) 33.5 32.0-36.0 [facility]entonJdisikmGVQOZMUGTS8821-90-46 17:33:00 Test Item Value Reference Range Interpretation Comments RDW (test code = RDW) 12.4 11.5-14.5 [facility]entonTicjtrxNLKLWAUWIY1801-89-59 17:33:00 Test Item Value Reference Range Interpretation Comments Platelet (test code = Platelet) 207 133-450 [facility] HospitalOvejeraMDLERHSQNR2026-00-32 17:33:00 Test Item Value Reference Range Interpretation Comments MPV (test code = MPV) 7.4 7.4-10.4 [facility]entonRdrlzyqZTQQLUHQWQ6446-67-19 17:33:00 Test Item Value Reference Range Interpretation Comments Segs (test code = Segs) 70.9 45.0-75.0 [place] 224262-03-28 17:33:00 Test Item Value Reference Range Interpretation Comments Lymphocytes (test code = Lymphocytes) 20.0 20.0-40.0 [place] 224262-03-28 17:33:00 Test Item Value Reference Range Interpretation Comments Monocytes (test code = Monocytes) 5.2 2.0-12.0 [place] 224262-03-28 17:33:00 Test Item Value Reference Range Interpretation Comments Eosinophils (test code = 3.5 See_Comment [A utomated message] The Eosinophils) system which ge nerated this result tra nsmitted reference range : <=4.0. The reference r kendell was not used to int erpret this result as normal/abnormal . [place] 224262-03-28 17:33:00 Test Item Value Reference Range Interpretation Comments Basophils (test code = 0.4 See_Comment [Aut omated message] The Basophils) system which ge nerated this result tra nsmitted reference range : <=1.0. The reference r kendell was not used to int erpret this result as normal/abnormal . [facility]entonCoeqvplRRNWCHPRBC5572-01-30 17:33:00 Test Item Value Reference Range Interpretation Comments Neutrophils # (test code = Neutrophils 4.5 1.5-8.1 #) [facility]entonFbzdathVFPMVKBHEA8108-86-74 17:33:00 Test Item Value Reference Range Interpretation Comments Lymphocytes # (test code = Lymphocytes 1.3 1.0-5.5 #) [facility]entonQowkhyoRDNWTBFQGL5544-07-37 17:33:00 Test Item Value Reference Range Interpretation Comments Monocytes # (test code 0.3 See_Comment [Aut omated message] The = Monocytes #) system which generated this result tra nsmitted reference range : <=0.8. The reference r kendell was not used to int erpret this result as normal/abnormal . [facility]entonVnxdjujCZHZMZCDZP4002-03-57 17:33:00 Test Item Value Reference Range Interpretation Comments Eosinophils # (test code 0.2 See_Comment [A utomated message] The = Eosinophils #) system whic h generated this result tra nsmitted reference range : <=0.5. The reference r kendell was not used to int erpret this result as normal/abnormal . [place] 55741022-03-28 17:33:00 Test Item Value Reference Range Interpretation Comments Ethanol Lvl (test code = Ethanol Lvl) no [facility]uxy[facility]zvXZZLZWZDKV9910-98-30 17:33:00 Test Item Value Reference Range Interpretation Comments Etoh (%) (test code = Etoh (%)) no [facility] sbcbkzm3920-34-36 05:13:54 Test Item Value Reference Range Interpretation Comments AFB culture No growth Specimen isolate (test after 6 weeks InformationSp ecimen code = 543-9) of Source: Joint incubation. FluidSpecimen S ite: PLEASE HOLD FOR 21 DAY S [facility] byqfwvh3216-78-72 05:13:54 Test Item Value Reference Range Interpretation Comments AFB culture No growth Specimen isolate (test after 6 weeks InformationSp ecimen code = 543-9) of Source: Joint incubation. FluidSpecimen S ite: PLEASE HOLD FOR 21 DAY S [facility] [id number] 05:13:54 Test Item Value Reference Range Interpretation Comments AFB culture No growth Specimen isolate (test after 6 weeks InformationSp ecimen code = 543-9) of Source: Joint incubation. FluidSpecimen S ite: [facility]LEASE HOLD FOR [facility] [id number] 05:15:49 Test Item Value Reference Range Interpretation Comments Fungus culture No growth Specimen isolate (test after 4 weeks InformationSp ecimen code = 1441) of Source: Joint incubation. FluidSpecimen S ite: PLEASE HOLD FOR 21 DAY S [facility] [id number] 05:15:49 Test Item Value Reference Range Interpretation Comments Fungus culture No growth Specimen isolate (test after 4 weeks InformationSp ecimen code = 1441) of Source: Joint incubation. FluidSpecimen S ite: PLEASE HOLD FOR 21 DAY S [facility] [id number] 05:15:49 Test Item Value Reference Range Interpretation Comments Fungus culture No growth Specimen isolate (test after 4 weeks InformationSp ecimen code = 1441) of Source: Joint incubation. FluidSpecimen S ite: [facility]LEASE HOLD FOR [facility] [id number] 03:24:41 Test Item Value Reference Range Interpretation Comments Joint fluid No growth Specimen culture isolate after 4 days. Information Specimen (test code = Source: Joint 1634) FluidSpecimen S ite: PLEASE HOLD FOR 21 DAY S [facility] fluid [id number] 03:24:41 Test Item Value Reference Range Interpretation Comments Joint fluid No growth Specimen culture isolate after 4 days. Information Specimen (test code = Source: Joint 1634) FluidSpecimen S ite: PLEASE HOLD FOR 21 DAY S [facility] fluid [id number] 03:24:41 Test Item Value Reference Range Interpretation Comments Joint fluid No growth Specimen culture isolate after 4 days. Information Specimen (test code = Source: Joint 1634) FluidSpecimen S ite: PLEASE HOLD FOR 21 DAY S [facility] [id number] 14:08:12 Test Item Value Reference Range Interpretation Comments Anaerobic No anaerobic Specimen culture isolate organisms InformationS pecimen (test code = isolated. Source: [facility] 552) FluidSpecimen S ite: PLEASE HOLD FOR 21 DAYS [facility] [id number] 14:08:12 Test Item Value Reference Range Interpretation Comments Anaerobic No anaerobic Specimen culture isolate organisms InformationS pecimen (test code = isolated. Source: [facility] 552) FluidSpecimen S ite: PLEASE HOLD FOR 21 DAYS [facility] [id number] 14:08:12 Test Item Value Reference Range Interpretation Comments Anaerobic No anaerobic Specimen culture isolate organisms InformationS pecimen (test code = isolated. Source: [facility] 552) FluidSpecimen S ite: PLEASE HOLD FOR [facility]YS [facility] [id number] 18:30:51 Test Item Value Reference Range Interpretation Comments Fungus smear No fungi Specimen (test code = observed. InformationSpec imen Source: 1443) [facility] Site: PLEASE HOLD FOR 21 DAYS [facility] [id number] 18:30:51 Test Item Value Reference Range Interpretation Comments Fungus smear No fungi Specimen (test code = observed. InformationSpec imen Source: 1443) [facility] Site: PLEASE HOLD FOR 21 DAYS [facility] [id number] 18:30:51 Test Item Value Reference Range Interpretation Comments Fungus smear No fungi Specimen (test code = observed. InformationSpec imen Source: 1443) [facility] Site: PLEASE HOLD FOR 21 DAYS [facility] [id number] 16:04:26 Test Item Value Reference Range Interpretation Comments AFB stain No acid fast Specimen (test code = bacilli (AFB) InformationSpe cimen 676-7) seen. Source: [facility] ite: PLEASE HOLD FOR 21 DAY [facility] [id number] 16:04:26 Test Item Value Reference Range Interpretation Comments AFB stain No acid fast Specimen (test code = bacilli (AFB) InformationSpe cimen 676-7) seen. Source: [facility] ite: PLEASE HOLD FOR 21 DAY S [facility] [id number] 16:04:26 Test Item Value Reference Range Interpretation Comments AFB stain No acid fast Specimen (test code = bacilli (AFB) InformationSpe [facility] 676-7) seen. Source: [facility] ite: PLEASE HOLD FOR 21 DAY S [facility] [id number] 03:53:00Gram stain isolateRare WBC'sNo organisms seen 08/02/2021 10:53 PM [facility] [id number] 03:53:00Gram stain isolateRare WBC'sNo organisms seen 08/02/2021 10:53 PM [facility] [id number] 03:53:00Gram stain isolateRare WBC'sNo organisms seen 08/02/2021 10:[address] [facility] HospitalCell count and differential, body [id number] 02:59:47 Test Item Value Reference Range Interpretation Comments Misc fluid type (test JOINT FLUID code = 55370-7) Color, fluid (test Red code = 6824-7) Appearance, fluid Clear (test code = 9335-1) RBC, fluid (test code See_Comment DISREG AMPARO PREVIOUS = 19203-3) RESULTS, WERE AUTOMATED (QUESTIONABLE); THEREFORE A MAN UAL COUNT WAS PERFORMED,AND M ANUAL COUNT CORRELATE D. Corrected resul t; previously repo rted as 420,000 on 08/02/2021 at 1 7:19 by [id number] REPORT, Previou sly reported as: [place] EVIOUS RESULTS WERE AUTOMATED (QUESTIONABLE), THEREFORE A [...] fluid (test code = previousl y reported 16878-3) as 1500 on 07/11 at 17:19 by PEC 3 [Automated mess age] The system [employer] generated this result transmitted ref erence range: /CMM. Th e reference range was not used to int erpret this result as normal/abnormal . Fluid mononuclear 2/CMM cell (test code = 1407) SHEILA (test code = SHEILA) right knee [facility], body [id number] 02:59:47 Test Item Value Reference Range Interpretation Comments Misc fluid type (test JOINT FLUID code = 23038-8) Color, fluid (test Red code = 6824-7) Appearance, fluid Clear (test code = 9335-1) RBC, fluid (test code See_Comment DISREG AMPARO PREVIOUS = 01190-2) RESULTS, WERE AUTOMATED (QUESTIONABLE); THEREFORE A MAN UAL COUNT WAS PERFORMED,AND M ANUAL COUNT CORRELATE D. Corrected resul t; previously repo rted as 420,000 on 08/02/2021 at 1 7:19 by [id number] REPORT, Previou sly reported as: [place] EVIOUS RESULTS WERE AUTOMATED (QUESTIONABLE), THEREFORE A [...] fluid (test code = previousl y reported 22903-7) as 1500 on 07/11 at 17:19 by PEC 3 [Automated mess age] The system [employer] generated this result transmitted ref erence range: /CMM. Th e reference range was not used to int erpret this result as normal/abnormal . Fluid mononuclear 2/CMM cell (test code = 1407) SHEILA (test code = SHEILA) right knee [facility], body [id number] 02:59:47 Test Item Value Reference Range Interpretation Comments Misc fluid type (test JOINT FLUID code = 99877-9) Color, fluid (test Red code = 6824-7) Appearance, fluid Clear (test code = 9335-1) RBC, fluid (test code See_Comment DISREG AMPARO PREVIOUS = 89947-1) RESULTS, WERE AUTOMATED (QUESTIONABLE); THEREFORE A MAN UAL COUNT WAS PERFORMED,AND M ANUAL COUNT CORRELATE D. Corrected resul t; previously repo rted as 420,000 on 08/02/2021 at 1 7:19 by [id number] REPORT, Previou sly reported as: [place] EVIOUS RESULTS WERE AUTOMATED (QUESTIONABLE), THEREFORE A [...] fluid (test code = previousl y reported 07848-8) as 1500 on 07/11 at 17:19 by PEC 3 [Automated mess age] The system [employer] h generated this result transmitted ref erence range: /CMM. Th e reference range was not used to int erpret this result as normal/abnormal . Fluid mononuclear 2/CMM cell (test code = 1407) SHEILA (test code = SHEILA) right [facility] [id number] 12:12:15 Test Item Value Reference Range Interpretation Comments URINE CULTURE (test < 10,000 CFU/mL mixed code = 630-4) aerobic organisms - suggests endogenous microbial contamination [facility] METABOLIC PANEL (NA, K, CL, CO2, GLUCOSE, BUN, CREATININE, CA)2021-04-03 11:03:41 Test Item Value Reference Range Interpretation Comments NA (test code = 136 mmol/L 135-145 7582566872) K (test code = 4.5 mmol/L 3.5-5.0 Slight 6379566767) hemolysis CL (test code = 94 mmol/L 98-108 L 1646104664) CO2 TOTAL (test code 38 mmol/L 23-31 H = 4719073568) AGAP (test code = 2-16 4673961393) BUN (test code = 28 mg/dL 7-23 H Slight 1456792016) hemolysis GLUCOSE (test code = 119 mg/dL 70-110 H 2120073530) CREATININE (test code 0.73 mg/dL 0.50-1.04 = 9281199362) CALCIUM (test code = 8.8 mg/dL 8.6-10.6 6192382296) eGFR (test code = mL/min/1.73m2 9503467647) SHEILA (test code = SHEILA) Association of [...] tests). Lab Interpretation Abnormal (test code = 12960-8) [facility] METABOLIC PANEL (NA, K, CL, CO2, GLUCOSE, BUN, CREATININE, CA)2021-04-03 11:03:41 Test Item Value Reference Range Interpretation Comments NA (test code = NA) 136 135-145 [facility] METABOLIC PANEL (NA, K, CL, CO2, GLUCOSE, BUN, CREATININE, CA)2021-04-03 11:03:41 Test Item Value Reference Range Interpretation Comments K (test code = K) 4.5 3.5-5.0 [facility]annBAS[facility] METABOLIC PANEL (NA, K, CL, CO2, GLUCOSE, BUN, CREATININE, CA)2021-04-03 11:03:41 Test Item Value Reference Range Interpretation Comments CL (test code = CL) 94 98-108 [facility] (NA, K, CL, CO2, GLUCOSE, BUN, CREATININE, CA)2021-04-03 11:03:41 Test Item Value Reference Range Interpretation Comments CO2 TOTAL (test code = CO2 TOTAL) 38 23-31 [facility] (NA, K, CL, CO2, GLUCOSE, BUN, CREATININE, CA)2021-04-03 11:03:41 Test Item Value Reference Range Interpretation Comments AGAP (test code = AGAP) 4 2-16 [facility] (NA, K, CL, CO2, GLUCOSE, BUN, CREATININE, CA)2021-04-03 11:03:41 Test Item Value Reference Range Interpretation Comments BUN (test code = BUN) 28 7-23 [facility]annBAS[facility] METABOLIC PANEL (NA, K, CL, CO2, GLUCOSE, BUN, CREATININE, CA)2021-04-03 11:03:41 Test Item Value Reference Range Interpretation Comments GLUCOSE (test code = GLUCOSE) 119 70-110 [facility]annBAS[facility] METABOLIC PANEL (NA, K, CL, CO2, GLUCOSE, BUN, CREATININE, CA)2021-04-03 11:03:41 Test Item Value Reference Range Interpretation Comments CREATININE (test code = CREATININE) 0.73 0.50-1.04 [facility]annBAS[facility] METABOLIC PANEL (NA, K, CL, CO2, GLUCOSE, BUN, CREATININE, CA)2021-04-03 11:03:41 Test Item Value Reference Range Interpretation Comments CALCIUM (test code = CALCIUM) 8.8 8.6-10.6 [facility] METABOLIC PANEL (NA, K, CL, CO2, GLUCOSE, BUN, CREATININE, CA)2021-04-03 11:03:41 Test Item Value Reference Range Interpretation Comments eGFR (test code = eGFR) 82.5 [facility]ann[facility]ro[facility] ([facility] - Duration of test: 20-60 mins; Release to patient: [id number] 00:00:00Date and Time of Procedure: 04/03/2021, 08:40 [...] written. Gibran Dickens MD Date of interpretation: 04/03/2021[facility]N-[facility]MINAL [id number]-[id number] 20:24:03 Test Item Value Reference Range Interpretation Comments NT-proBNP (test code 218 pg/mL See_Comment H [Autom ated = 5255834652) message] The system which generated this result transmitted reference range : <=125. The reference range was not used to interpret this result as normal/abnormal . SHEILA (test code = SHEILA) Biotin has been reported to cause a negative bias, interpret results relative to patient's use of biotin. Lab Interpretation Abnormal (test code = 68690-4) [facility]XR CHEST 1 [id number] 13:04:48 No acute cardiopulmonary abnormality. Preliminary Report Dictated by Resident: hCente Gonzales MD., have reviewed this study and [...] reviewed this study and agree with theabove report.[facility] HospitalAC PANEL 20 + LACTIC [id number] 03:36:51 Test Item Value Reference Range Interpretation Comments PH (test code = 2) 7.35-7.45 L PCO2 (test code = See_Comment H [Automate d 2138931473) message] The sy stem which generated this result transmitted reference range : 35 - 45 mmHg. The reference range was not used to interpret this result as normal/abnormal . PO2 (test code = See_Comment L [Automated 2091470353) message] The sy stem which generated this result transmitted reference range : 80 - 100 mmHg. The reference range was not used to interpret this result as normal/abnormal . HCO3 (test code = See_Comment H [Automate d 7782169278) message] The sy stem which generated this result transmitted reference range : 22 - 26 mEq/L. The reference range was not used to interpret this result as normal/abnormal . BE (test code = See_Comment [Automated 1096931881) message] The sy stem which generated this result transmitted reference range : -3.0 - 3.0 mEq/ L. The reference r kendell was not used to interpret this result as normal/abnormal . THB (test code = 14.2 g/dL 12.0-16.0 0712296498) %O2HB (test code = 89.4 % 94.0-99.0 L 3375221290) %COHB ART (test code = 4.8 % 0.0-1.5 H 9653084016) %METHB ART (test code = 0.3 % 0.4-1.5 L 2078043200) VOL%O2 ART (test code = 17.9 % 15.0-23.0 0139137555) NA (test code = 135 mmol/L 135-145 6449577135) K+ (test code = 4.3 mmol/L 3.5-5.0 4482086491) AC CA IONZ (test code = 4.60 mg/dL 4.50-5.30 5884732503) GLUCOSE (test code = 95 mg/dL 70-110 9757793050) LACTIC ACID (test code 0.78 mmol/L 0.50-2.20 = 2651718846) Lab Interpretation Abnormal (test code = 73289-9) [facility] HospitalETHANOL2021-05-25 03:05:08 Test Item Value Reference Range Interpretation Comments ALCOHOL (test code = <10 mg/dL 8751221983) SHEILA (test code = SHEILA) <10 Qehdiysz80-760 Toxic>100 Depression of FASHION SHOW DIRECTOR>400 Fatalities Reported [facility] HospitalTroponiyair [id number] 02:35:56 Test Item Value Reference Range Interpretation Comments TROPONIN I (test <0.012 See_Comment [Automated code = 3523258643) message] The system which generated this result [...] ? Lab Interpretation Normal (test code = 69814-7) [facility] HospitalURINE DRUG (IMMUNOASSAY) - COMPREHENSIVE DRUG [id number] 02:32:35 Test Item Value Reference Range Interpretation Comments AMPHET (test code = Negative Negative 6413536241) PARISA U (test code = Negative Negative 4451515722) BENZO U (test code = Negative Negative 1737364325) Cocaine Metabolite (test Negative Negative code = 5904662520) METHADONE (test code = Negative Negative 2662804320) OPIATES (test code = Presumptive Positive Negative A 0164130756) PCP (test code = Presumptive Positive Negative A 7225440255) THC (test code = Negative Negative 8976742971) SHEILA (test code = SHEILA) Urine Drug [...] testing). Lab Interpretation (test Abnormal code = 88318-4) [facility] HospitalCOVID-19 (ID NOW RAPID TESTING)2021-04-02 02:30:32 Test Item Value Reference Range Interpretation Comments SARS-CoV-2 Rapid ID NOW Not Detected Not Detected (test code = 03364-4) SHEILA (test code = SHEILA) ID NOW COVID-19 Assay is an isothermal nucleic acid amplification test intended for the qualitative detection of nucleic acid from SARS-CoV-2 viral RNA in nasopharyngeal (SKILLS INSTRUCTOR) specimens. It is used under Emergency Use [...] indicated. Lab Interpretation Normal (test code = 68557-7) [facility] Metabolic Panel (NA, K, CL, CO2, GLUCOSE, BUN, CREATININE, CA)2021-04-02 02:24:48 Test Item Value Reference Range Interpretation Comments NA (test code = 136 mmol/L 135-145 5504619639) K (test code = 4.9 mmol/L 3.5-5.0 9429753343) CL (test code = 96 mmol/L 98-108 L 8838651682) CO2 TOTAL (test code = 31 mmol/L 23-31 6144579041) AGAP (test code = 2-16 5633821354) BUN (test code = 43 mg/dL 7-23 H 8294076019) GLUCOSE (test code = 96 mg/dL 70-110 9219063247) CREATININE (test code = 0.92 mg/dL 0.50-1.04 5299311532) CALCIUM (test code = 9.4 mg/dL 8.6-10.6 7990185803) eGFR (test code = mL/min/1.73m2 6032447348) SHEILA (test code = SHEILA) Association of [...] tests). Lab Interpretation Abnormal (test code = 99822-8) [facility] HospitalHepatic Function Panel (ALB, T.PRO, BILI T, BU/BC, ALT, AST, ALK PHOS)2021-04-02 02:24:48 Test Item Value Reference Range Interpretation Comments TOTAL BILI (test code = 5248096438) 0.7 mg/dL 0.1-1.1 BILI UNCON (test code = 3263042294) 0.4 mg/dL 0.1-1.1 BILI CONJ (test code = 2106914812) 0.0 mg/dL 0.0-0.3 T PROTEIN (test code = 1204603241) 6.8 g/dL 6.3-8.2 ALBUMIN (test code = 8024761073) 4.4 g/dL 3.5-5.0 ALK PHOS (test code = 5783866617) 85 U/L 34-122 ALTv (test code = 1742-6) 27 U/L 5-35 AST(SGOT) (test code = 5880498367) 53 U/L 13-40 H Lab Interpretation (test code = Abnormal 23103-0) [facility] HospitalCT HEAD WO [id number] 02:03:35 No acute intracranial findings. Left occipital [...] base intact. Mild ethmoid air cell mucosalthickening. [facility], Radiant Results Inft User - [...] the leftcerebellum. Correlation with prior surgical history suggested.[facility] HospitalUrinalysis2021-05-25 01:59:54 Test Item Value Reference Range Interpretation Comments APPEARANCE (test code = Clear Clear 2642863230) COLOR (test code = Yellow Yellow 2074725754) PH (test code = 4.8-8.0 5067675269) SP GRAVITY (test code = 1.003-1.030 9904681393) GLU U QUAL (test code = Normal Normal 2830037574) BLOOD (test code = Negative Negative 9113405719) KETONES (test code = Negative Negative 9892812114) PROTEIN (test code = Negative Negative 2887-8) UROBILIN (test code = Normal Normal 3243426109) BILIRUBIN (test code = 2 mg/dL Negative A 3787987185) NITRITE (test code = Negative Negative 0030959663) LEUK MERYL (test code = 250/uL Negative A 5673273992) RBC/HPF (test code = See_Comment [Autom ated message] 6270001735) The system [employer] generated this result transmitted ref erence range: 0 - 3 HP F. The reference range was not used to int erpret this result as normal/abnormal . WBC/HPF (test code = See_Comment H [Autom ated message] 1372348626) The system [employer] generated this result transmitted ref erence range: 0 - 5 HP F. The reference range was not used to int erpret this result as normal/abnormal . BACTERIA (test code = Few Negative A 5502065925) MUCOUS (test code = Slight Negative LPF A 7573141807) SQ EPITH (test code = HPF 4557198687) HYAL CAST (test code = See_Comment [Aut omated message] 8651203333) The system [employer] generated this result transmitted ref erence range: <=2 LPF. The reference range was not used to int erpret this result as normal/abnormal . Lab Interpretation (test Abnormal code = 89628-1) [facility] HospitalaPTT2021-05-25 01:49:53 Test Item Value Reference Range Interpretation Comments APTT Patient (test See_Comment [Automat ed code = 3173-2) message] The system which generated this result transmitted reference range : 23 - 38 Seconds . The reference range was not used to interpr et this result as normal/abnormal . SHEILA (test code = SHEILA) The [facility] patient population mean normal value for aPTT is 30 seconds. Lab Interpretation Normal (test code = 49882-6) [facility] HospitalProthrombin Time (PT) / [id number] 01:47:51 Test Item Value Reference Range Interpretation [...] tions. Lab Interpretation (test Normal code = 23345-8) [facility] HospitalCB with Skkjcctvcwso7958-59-06 01:38:27 Test Item Value Reference Range Interpretation Comments WBC (test code = See_Comment [Automated 0390-2) message] The sy stem which generated this result transmitted reference range : 4.30 - 11.10 10*3/?L. The reference range was not used to interpret this result as normal/abnormal . RBC (test code = See_Comment [Automated 829-8) message] The sy stem which generated this [...] RDW-SD (test code = 44.2 fL 39.0-49.9 06791-9) RDW-CV (test code = 12.5 % 12.0-15.5 788-0) PLT (test code = See_Comment [Automated 777-3) message] The sy stem which generated this result transmitted reference range : 166 - 358 10*3/ ?L. The reference r kendell was not used to interpret this result as normal/abnormal . MPV (test code = 9.4 fL 9.5-12.9 L 34904-1) NRBC/100 WBC (test See_Comment [Automat ed code = 2505620062) message] The system which generated this result transmitted reference range : 0.0 - 10.0 /100 WBCs. The refer ence range was not u sed to interpret th is result as normal/abnormal . NRBC x10^3 (test code <0.01 See_Comment [Auto mated = 2156766941) message] The s ystem which generated this result transmitted reference range : 10*3/?L. The reference range was not used to interpret this result as normal/abnormal . GRAN MAT (NEUT) % 63.0 % (test code = 770-8) IMM GRAN % (test code 0.10 % = 3657269822) LYMPH % (test code = 21.2 % 736-9) MONO % (test code = 8.0 % 5905-5) EOS % (test code = 7.1 % 713-8) BASO % (test code = 0.6 % 706-2) GRAN MAT x10^3(ANC) 6.08 10*3/uL 1.88-7.09 (test code = 6538464075) IMM GRAN x10^3 (test <0.03 0.00-0.06 code = 5276339871) LYMPH x10^3 (test code 2.04 10*3/uL 1.32-3.29 = 731-0) MONO x10^3 (test code 0.77 10*3/uL 0.33-0.92 = 742-7) EOS x10^3 (test code = 0.68 10*3/uL 0.03-0.39 H 711-2) BASO x10^3 (test code 0.06 10*3/uL 0.01-0.07 = 704-7) Lab Interpretation Abnormal (test code = 73139-9) [facility] [id number] 19:32:00 Test Item Value Reference Range Interpretation Comments Troponin-I (test code 0.22 See_Comment [Auto mated message] The = Troponin-I) system which g enerated this result transmit theodore reference range : <=0.40. The reference r kendell was not used to interpr et this result as david l/abnormal. [facility] [employer]ave [id number] 17:06:00 Test Item Value Reference Range Interpretation Comments Troponin-I (test code 0.28 See_Comment [Auto mated message] The = Troponin-I) system which g enerated this result transmit theodore reference range : <=0.40. The reference r kendell was not used to interpr et this result as david l/abnormal. [facility] Incipient [id number] 17:06:00 Test Item Value Reference Range Interpretation Comments Lactic Acid Lvl (test code = Lactic 1.5 0.5-2.2 Acid Lvl) [facility] Zwipe2020-11-19 10:27:00 Test Item Value Reference Range Interpretation Comments Troponin-I (test code 0.42 See_Comment [Auto mated message] The = Troponin-I) system which g enerated this result transmit theodore reference range : <=0.40. The reference r kendell was not used to interpr et this result as david l/abnormal. [facility] Incipient [id number] 10:27:00 Test Item Value Reference Range Interpretation Comments Total Protein (test code = Total 6.6 6.4-8.4 Protein) [facility] Inc[facility]ient [id number] 10:27:00 Test Item Value Reference Range Interpretation Comments Albumin Lvl (test code = Albumin Lvl) 3.7 3.5-5.0 [facility] Inc[facility]ient [id number] 10:27:00 Test Item Value Reference Range Interpretation Comments ALT (test code = ALT) 43 See_Comment [Auto mated message] The system which ge nerated this result transmit theodore reference range : <=65. The reference range was not used to interpr et this result as david l/abnormal. [facility] [id number] 10:27:00 Test Item Value Reference Range Interpretation Comments AST (test code = AST) 30 See_Comment [Auto mated message] The system which ge nerated this result transmit theodore reference range : <=37. The reference range was not used to interpr et this result as david l/abnormal. [facility] [id number] 10:27:00 Test Item Value Reference Range Interpretation Comments Alk Phos (test code = Alk Phos) 102 39-136 [facility] [id number] 10:27:00 Test Item Value Reference Range Interpretation Comments Bili Total (test code = Bili Total) 1.1 0.2-1.3 [facility] [employer] [id number] 10:27:00 Test Item Value Reference Range Interpretation Comments Bili Direct (test code 0.2 See_Comment [Aut omated message] The = Bili Direct) system which generated this result tra nsmitted reference range : <=0.3. The reference r kendell was not used to int erpret this result as david l/abnormal. [facility] [id number] 10:27:00 Test Item Value Reference Range Interpretation Comments Bili Indirect (test 0.9 See_Comment [Automa theodore message] The code = Bili Indirect) system which generated this result tra nsmitted reference range : <=1.0. The reference r kendell was not used to int erpret this result as normal/abnormal . [facility] [id number] 10:27:00 Test Item Value Reference Range Interpretation Comments Globulin (test code = Globulin) 2.9 2.7-4.2 [facility] [id number] 10:27:00 Test Item Value Reference Range Interpretation Comments A/G Ratio (test code = A/G Ratio) 1.3 1 0.7-1.6 [facility] [id number] 10:27:00 Test Item Value Reference Range Interpretation Comments PTT (test code = PTT) 29.9 s 22.9-35.8 [facility] [id number] 10:27:00 Test Item Value Reference Range Interpretation Comments PT (test code = PT) 13.0 s 12.0-14.7 [facility] [id number] 10:27:00 Test Item Value Reference Range Interpretation Comments INR (test code = INR) 0.98 1 0.85-1.17 [facility] CenterTtcyyomKQTSUEDBJX7664-21-84 10:27:00 Test Item Value Reference Range Interpretation Comments Treponemal Ab (test code Non-Reactive = Treponemal Ab) *NA*(09/27/20 4:27 AM) [facility] [id number] 10:27:00 Test Item Value Reference Range Interpretation Comments LDL (Calculated) (test code = LDL 88 (Calculated)) [facility] CenterYoavtmnDWBHTE6819-34-58 10:27:00 Test Item Value Reference Range Interpretation Comments Trig (test code = Trig) 90 [facility] [id number] 10:27:00 Test Item Value Reference Range Interpretation Comments Chol (test code = Chol) 171 [facility] CenterMfpcsfgJXHSFV1167-02-10 10:27:00 Test Item Value Reference Range Interpretation Comments HDL (test code = HDL) 65 [facility] CenterRtjqnyfMHXAGE7252-82-98 10:27:00 Test Item Value Reference Range Interpretation Comments CHD Risk (test code = CHD Risk) 2.63 1 3.90-5.80 [facility] CenterOtswkykTIKKEB1756-35-94 10:27:00 Test Item Value Reference Range Interpretation Comments VLDL (test code = VLDL) 18 1 [facility]SPE[facility] [id number] 10:27:00 Test Item Value Reference Range Interpretation Comments Hgb A1C (test code = Hgb A1C) 5.5 [facility] CenterCARD[facility]AC [id number] 04:37:00 Test Item Value Reference Range Interpretation Comments Troponin-I (test code 0.39 See_Comment [Auto mated message] The = Troponin-I) system which g enerated this result transmit theodore reference range : <=0.40. The reference r kendell was not used to interpr et this result as david l/abnormal. [facility] CenterannDR[facility] [id number] 03:02:00 Test Item Value Reference Range Interpretation Comments U Amph Scr (test code Negative *NA*(09/26/20 = U Amph Scr) 9:02 PM) [facility] CenterannDR[facility] [id number] 03:02:00 Test Item Value Reference Range Interpretation Comments U Parisa Scr (test code Negative *NA*(09/26/20 = U Parisa Scr) 9:02 PM) [facility] [id number] 03:02:00 Test Item Value Reference Range Interpretation Comments U Benzodiaz Scr (test Negative *NA*(09/26/20 code = U Benzodiaz Scr) 9:02 PM) [facility] [id number] 03:02:00 Test Item Value Reference Range Interpretation Comments U Cocaine Scr (test Negative *NA*(09/26/20 code = U Cocaine Scr) 9:02 PM) [facility] [id number] 03:02:00 Test Item Value Reference Range Interpretation Comments U Cannab Scr (test Negative *NA*(09/26/20 code = U Cannab Scr) 9:02 PM) [facility] [id number] 03:02:00 Test Item Value Reference Range Interpretation Comments U Opiate Scr (test Positive *ABN*(09/26/20 code = U Opiate Scr) 9:02 PM) [facility] [id number] 03:02:00 Test Item Value Reference Range Interpretation Comments U Phencyclidine Scr (test Negative code = U Phencyclidine *NA*(09/26/20 9:02 Scr) PM) [facility] [id number] 03:02:00 Test Item Value Reference Range Interpretation Comments UDS Note (test code = See Note (09/26/20 9:02 UDS Note) PM) [facility] [id number] 03:02:00 Test Item Value Reference Range Interpretation Comments UA Color (test code = Yellow *NA*(09/26/20 UA Color) 9:02 PM) [facility] [id number] 03:02:00 Test Item Value Reference Range Interpretation Comments UA Turbidity (test code = Clear (09/26/20 9:02 UA Turbidity) PM) [facility] [id number] 03:02:00 Test Item Value Reference Range Interpretation Comments UA Spec Grav (test code = UA Spec 1.013 1 Grav) [facility] [id number] 03:02:00 Test Item Value Reference Range Interpretation Comments UA pH (test code = UA pH) 7.0 1 5.0-8.0 [facility] [id number] 03:02:00 Test Item Value Reference Range Interpretation Comments UA Protein (test code = UA Protein) 100 mg/dL [facility] [id number] 03:02:00 Test Item Value Reference Range Interpretation Comments UA Glucose (test code = UA Negative mg/dL Glucose) [facility] [id number] 03:02:00 Test Item Value Reference Range Interpretation Comments UA Ketones (test code = UA Trace mg/dL Ketones) [facility] [id number] 03:02:00 Test Item Value Reference Range Interpretation Comments UA Bili (test code = Negative *NA*(09/26/20 UA Bili) 9:02 PM) [facility] [id number] 03:02:00 Test Item Value Reference Range Interpretation Comments UA Blood (test code = Negative (09/26/20 9:02 UA Blood) PM) [facility] [id number] 03:02:00 Test Item Value Reference Range Interpretation Comments UA Nitrite (test code Negative (09/26/20 9:02 = UA Nitrite) PM) [facility] [id number] 03:02:00 Test Item Value Reference Range Interpretation Comments UA Leuk Est (test Negative (09/26/20 9:02 code = UA Leuk Est) PM) [facility] [id number] 03:02:00 Test Item Value Reference Range Interpretation Comments UA WBC (test code = 2 See_Comment [Automa theodore message] The UA WBC) system which ge nerated this result transmit theodore reference range : <=5. The reference range was not used to interpr et this result as david l/abnormal. [facility] [id number] 03:02:00 Test Item Value Reference Range Interpretation Comments UA RBC (test code = 3 See_Comment [Automa theodore message] The UA RBC) system which ge nerated this result transmit theodore reference range : <=2. The reference range was not used to interpr et this result as david l/abnormal. [facility] [id number] 03:02:00 Test Item Value Reference Range Interpretation Comments UA Sq Epi (test code = UA Sq Epi) None Seen [facility] AND [id number] 03:02:00 Test Item Value Reference Range Interpretation Comments UA Urobilinogen (test code = UA <=1.0 mg/dL 0.1-1.0 Urobilinogen) [facility] [id number] 01:47:00 Test Item Value Reference Range Interpretation Comments Coronavirus (COVID-19) Not Detected CHRIS (test code = (09/26/20 7:47 PM) Coronavirus (COVID-19) CHRIS) [facility] CenterCARDIAC [id number] 01:01:00 Test Item Value Reference Range Interpretation Comments Total CK (test code = Total CK) 115 12-191 [facility] CenterCARAC [id number] 01:01:00 Test Item Value Reference Range Interpretation Comments Troponin-I (test code 0.18 See_Comment [Auto mated message] The = Troponin-I) system which g enerated this result transmit theodore reference range : <=0.40. The reference r kendell was not used to interpr et this result as david l/abnormal. [facility] [id number] 01:01:00 Test Item Value Reference Range Interpretation Comments Glucose Lvl (test code = Glucose Lvl) 117 70-99 [facility] [id number] 01:01:00 Test Item Value Reference Range Interpretation Comments BUN (test code = BUN) 16 7-22 [facility] CenterHealth [employer] [id number] 01:01:00 Test Item Value Reference Range Interpretation Comments Creatinine Lvl (test code = Creatinine 1.01 0.50-1.40 Lvl) [facility] [id number] 01:01:00 Test Item Value Reference Range Interpretation Comments Sodium Lvl (test code = Sodium Lvl) 139 135-145 [facility] [id number] 01:01:00 Test Item Value Reference Range Interpretation Comments Potassium Lvl (test code = Potassium 3.7 3.5-5.1 Lvl) [facility] [id number] 01:01:00 Test Item Value Reference Range Interpretation Comments Chloride Lvl (test code = Chloride Lvl) 105 95-109 [facility] [id number] 01:01:00 Test Item Value Reference Range Interpretation Comments CO2 (test code = CO2) 24 24-32 [facility] [id number] 01:01:00 Test Item Value Reference Range Interpretation Comments Calcium Lvl (test code = Calcium Lvl) 9.6 8.5-10.5 [facility] [id number] 01:01:00 Test Item Value Reference Range Interpretation Comments Total Protein (test code = Total 7.9 6.4-8.4 Protein) [facility] [id number] 01:01:00 Test Item Value Reference Range Interpretation Comments Albumin Lvl (test code = Albumin Lvl) 4.1 3.5-5.0 [facility] [id number] 01:01:00 Test Item Value Reference Range Interpretation Comments ALT (test code = ALT) 50 See_Comment [Auto mated message] The system which ge nerated this result transmit theodore reference range : <=65. The reference range was not used to interpr et this result as david l/abnormal. [facility] [id number] 01:01:00 Test Item Value Reference Range Interpretation Comments AST (test code = AST) 41 See_Comment [Auto mated message] The system which ge nerated this result transmit theodore reference range : <=37. The reference range was not used to interpr et this result as david l/abnormal. [facility] [id number] 01:01:00 Test Item Value Reference Range Interpretation Comments Alk Phos (test code = Alk Phos) 120 39-136 [facility] [id number] 01:01:00 Test Item Value Reference Range Interpretation Comments Bili Total (test code = Bili Total) 1.0 0.2-1.3 [facility] [id number] 01:01:00 Test Item Value Reference Range Interpretation Comments AGAP (test code = AGAP) 13.7 10.0-20.0 [facility] [id number] 01:01:00 Test Item Value Reference Range Interpretation Comments B/C Ratio (test code = B/C Ratio) 16 1 6-25 [facility] [id number] 01:01:00 Test Item Value Reference Range Interpretation Comments Globulin (test code = Globulin) 3.8 2.7-4.2 [place] [id number] 01:01:00 Test Item Value Reference Range Interpretation Comments A/G Ratio (test code = A/G Ratio) 1.1 1 0.7-1.6 [place] [id number] 01:01:00 Test Item Value Reference Range Interpretation Comments eGFR (test code = eGFR) 62 [facility]2020-11-19 01:01:00 Test Item Value Reference Range Interpretation Comments Phosphorus (test code = Phosphorus) 3.1 2.5-4.5 [place] [id number] 01:01:00 Test Item Value Reference Range Interpretation Comments Magnesium Lvl (test code = Magnesium 2.1 1.8-2.4 Lvl) [facility]2020-11-19 01:01:00 Test Item Value Reference Range Interpretation Comments Lactic Acid Lvl (test code = Lactic 2.3 0.5-2.2 Acid Lvl) [id number] 01:01:00 Test Item Value Reference Range Interpretation Comments WBC (test code = WBC) 8.9 3.7-10.4 [place] 224260-11-19 01:01:00 Test Item Value Reference Range Interpretation Comments RBC (test code = RBC) 4.59 4.20-5.40 [id number] 01:01:00 Test Item Value Reference Range Interpretation Comments Hgb (test code = Hgb) 15.1 12.0-16.0 [id number] 01:01:00 Test Item Value Reference Range Interpretation Comments Hct (test code = Hct) 43.4 36.0-48.0 [place] 224260-11-19 01:01:00 Test Item Value Reference Range Interpretation Comments MCV (test code = MCV) 94.6 80.0-98.0 [facility]entonErvtoeqEGHGMRGEYF9518-18-97 01:01:00 Test Item Value Reference Range Interpretation Comments MCH (test code = MCH) 33.0 pg 27.0-31.0 [facility]ent[id number] 01:01:00 Test Item Value Reference Range Interpretation Comments MCHC (test code = MCHC) 34.9 32.0-36.0 [place] 224260-11-19 01:01:00 Test Item Value Reference Range Interpretation Comments RDW (test code = RDW) 12.4 11.5-14.5 [facility]entonPqvnqjsFJHMGQWIYN4004-26-04 01:01:00 Test Item Value Reference Range Interpretation Comments Platelet (test code = Platelet) 270 133-450 [facility]ent[id number] 01:01:00 Test Item Value Reference Range Interpretation Comments MPV (test code = MPV) 7.9 7.4-10.4 [facility]entonTmyehekUVMBBODHAY5246-82-13 01:01:00 Test Item Value Reference Range Interpretation Comments Segs (test code = Segs) 79.9 45.0-75.0 [facility]ent[id number] 01:01:00 Test Item Value Reference Range Interpretation Comments Lymphocytes (test code = Lymphocytes) 13.9 20.0-40.0 [facility]entonFidlyimXCLDZJFOFP3415-07-98 01:01:00 Test Item Value Reference Range Interpretation Comments Monocytes (test code = Monocytes) 5.5 2.0-12.0 [id number] 01:01:00 Test Item Value Reference Range Interpretation Comments Basophils (test code = 0.7 See_Comment [Aut omated message] The Basophils) system which ge nerated this result tra nsmitted reference range : <=1.0. The reference r kendell was not used to int erpret this result as normal/abnormal . [facility]ent[id number] 01:01:00 Test Item Value Reference Range Interpretation Comments Neutrophils # (test code = Neutrophils 7.1 1.5-8.1 #) [facility]ent[id number] 01:01:00 Test Item Value Reference Range Interpretation Comments Lymphocytes # (test code = Lymphocytes 1.2 1.0-5.5 #) [id number] 01:01:00 Test Item Value Reference Range Interpretation Comments Monocytes # (test code 0.5 See_Comment [Aut omated message] The = Monocytes #) system which generated this result tra nsmitted reference range : <=0.8. The reference r kendell was not used to int erpret this result as normal/abnormal . [facility]entonFteolqxBXFYQEPZLK4896-76-44 01:01:00 Test Item Value Reference Range Interpretation Comments Basophils # (test code 0.1 See_Comment [Aut omated message] The = Basophils #) system which generated this result tra nsmitted reference range : <=0.2. The reference r kendell was not used to int erpret this result as normal/abnormal . [facility] CentergabrielCONSENT TO CONTACT FOR VOLUNTARY [id number] 19:43:51 Test Item Value Reference Range Interpretation Comments Consent To Contact For Voluntary Yes Research (test code = 4947) [facility] [id number] 04:43:00 Test Item Value Reference Range Interpretation Comments U Amph Scr (test code Positive *ABN*(04/24/20 = U Amph Scr) 11:43 PM) [facility] [id number] 04:43:00 Test Item Value Reference Range Interpretation Comments U Parisa Scr (test code Negative *NA*(04/24/20 = U Parisa Scr) 11:43 PM) [facility] [id number] 04:43:00 Test Item Value Reference Range Interpretation Comments U Benzodiaz Scr (test Negative *NA*(04/24/20 code = U Benzodiaz Scr) 11:43 PM) [facility] CenterannDR[facility] [id number] 04:43:00 Test Item Value Reference Range Interpretation Comments U Cocaine Scr (test Negative *NA*(04/24/20 code = U Cocaine Scr) 11:43 PM) [facility]annDR[facility] [id number] 04:43:00 Test Item Value Reference Range Interpretation Comments U Cannab Scr (test Negative *NA*(04/24/20 code = U Cannab Scr) 11:43 PM) [facility]annDR[facility] [id number] 04:43:00 Test Item Value Reference Range Interpretation Comments U Opiate Scr (test Positive *ABN*(04/24/20 code = U Opiate Scr) 11:43 PM) [facility]annDR[facility] [id number] 04:43:00 Test Item Value Reference Range Interpretation Comments U Phencyclidine Scr (test Negative code = U Phencyclidine *NA*(04/24/20 11:43 Scr) PM) [facility]annDR[facility] [id number] 04:43:00 Test Item Value Reference Range Interpretation Comments UDS Note (test code = See Note (04/24/20 11:43 UDS Note) PM) [facility] [id number] 04:43:00 Test Item Value Reference Range Interpretation Comments UA Color (test code = Yellow *NA*(04/24/20 UA Color) 11:43 PM) [facility] [id number] 04:43:00 Test Item Value Reference Range Interpretation Comments UA Turbidity (test code = Clear (04/24/20 11:43 UA Turbidity) PM) [facility] [id number] 04:43:00 Test Item Value Reference Range Interpretation Comments UA Spec Grav (test code = UA Spec 1.012 1 Grav) [facility] [id number] 04:43:00 Test Item Value Reference Range Interpretation Comments UA pH (test code = UA pH) 5.0 1 5.0-8.0 [facility] [id number] 04:43:00 Test Item Value Reference Range Interpretation Comments UA Protein (test code = UA Negative mg/dL Protein) [facility] [id number] 04:43:00 Test Item Value Reference Range Interpretation Comments UA Glucose (test code = UA Negative mg/dL Glucose) [facility] [id number] 04:43:00 Test Item Value Reference Range Interpretation Comments UA Ketones (test code = UA Negative mg/dL Ketones) [facility] [id number] 04:43:00 Test Item Value Reference Range Interpretation Comments UA Bili (test code = Negative *NA*(04/24/20 UA Bili) 11:43 PM) [facility] [id number] 04:43:00 Test Item Value Reference Range Interpretation Comments UA Blood (test code = Negative (04/24/20 11:43 UA Blood) PM) [facility] [id number] 04:43:00 Test Item Value Reference Range Interpretation Comments UA Nitrite (test code Negative (04/24/20 11:43 = UA Nitrite) PM) [facility] [id number] 04:43:00 Test Item Value Reference Range Interpretation Comments UA Leuk Est (test Negative (04/24/20 11:43 code = UA Leuk Est) PM) [facility] [id number] 04:43:00 Test Item Value Reference Range Interpretation Comments UA WBC (test code = 2 See_Comment [Automa theodore message] The UA WBC) system which ge nerated this result transmit theodore reference range : <=5. The reference range was not used to interpr et this result as david l/abnormal. [facility] [id number] 04:43:00 Test Item Value Reference Range Interpretation Comments UA RBC (test code = 1 See_Comment [Automa theodore message] The UA RBC) system which ge nerated this result transmit theodore reference range : <=2. The reference range was not used to interpr et this result as david l/abnormal. [facility] [id number] 04:43:00 Test Item Value Reference Range Interpretation Comments UA Bacteria (test code = UA Occasional /HPF Bacteria) [facility] [id number] 04:43:00 Test Item Value Reference Range Interpretation Comments UA Mucus (test code = UA Mucus) Few /LPF [facility] [id number] 04:43:00 Test Item Value Reference Range Interpretation Comments UA Sq Epi (test code = UA Sq Epi) None Seen [facility] [id number] 04:43:00 Test Item Value Reference Range Interpretation Comments UA Urobilinogen (test code = UA <=1.0 mg/dL 0.1-1.0 Urobilinogen) [facility]annCARDIAC [id number] 04:12:00 Test Item Value Reference Range Interpretation Comments Total CK (test code = Total CK) 102 12-191 [facility]AC [id number] 04:12:00 Test Item Value Reference Range Interpretation Comments Troponin-I (test code no gt See_Comment [Auto mated message] The = Troponin-I) system which g enerated this result transmit theodore reference range : <=0.40. The reference r kendell was not used to interpr et this result as david l/abnormal. [facility] [id number] 04:12:00 Test Item Value Reference Range Interpretation Comments Glucose Lvl (test code = Glucose Lvl) 111 70-99 [facility] [id number] 04:12:00 Test Item Value Reference Range Interpretation Comments BUN (test code = BUN) 45 7-22 [place] [address]-06-17 04:12:00 Test Item Value Reference Range Interpretation Comments Creatinine Lvl (test code = Creatinine 1.99 0.50-1.40 Lvl) [place] [address]-06-17 04:12:00 Test Item Value Reference Range Interpretation Comments Sodium Lvl (test code = Sodium Lvl) 136 135-145 [facility] CenterThirdSpaceLearningRICKY [place] [id number] 04:12:00 Test Item Value Reference Range Interpretation Comments Potassium Lvl (test code = Potassium 4.7 3.5-5.1 Lvl) [facility] CenterThirdSpaceLearningRICKY [place] [id number] 04:12:00 Test Item Value Reference Range Interpretation Comments Chloride Lvl (test code = Chloride Lvl) 101 95-109 [facility] CenterThirdSpaceLearningRICKY [place] [id number] 04:12:00 Test Item Value Reference Range Interpretation Comments CO2 (test code = CO2) 29 24-32 [place] [address]-06-17 04:12:00 Test Item Value Reference Range Interpretation Comments Calcium Lvl (test code = Calcium Lvl) 9.0 8.5-10.5 [facility] CenterThirdSpaceLearningRICKY [place] [id number] 04:12:00 Test Item Value Reference Range Interpretation Comments Total Protein (test code = Total 6.7 6.4-8.4 Protein) [place] [address]-06-17 04:12:00 Test Item Value Reference Range Interpretation Comments Albumin Lvl (test code = Albumin Lvl) 3.8 3.5-5.0 [place] [address]-06-17 04:12:00 Test Item Value Reference Range Interpretation Comments ALT (test code = ALT) 22 See_Comment [Auto mated message] The system which [employer] nerated this result transmit theodore reference range : <=65. The reference range was not used to interpr et this result as david l/abnormal. [facility] [id number] 04:12:00 Test Item Value Reference Range Interpretation Comments AST (test code = AST) 19 See_Comment [Auto mated message] The system which ge nerated this result transmit theodore reference range : <=37. The reference range was not used to interpr et this result as david l/abnormal. [facility] [id number] 04:12:00 Test Item Value Reference Range Interpretation Comments Alk Phos (test code = Alk Phos) 95 39-136 [facility]2020-06-17 04:12:00 Test Item Value Reference Range Interpretation Comments Bili Total (test code = Bili Total) 0.4 0.2-1.3 [place] [address]-06-17 04:12:00 Test Item Value Reference Range Interpretation Comments AGAP (test code = AGAP) 10.7 10.0-20.0 [place] [address]-06-17 04:12:00 Test Item Value Reference Range Interpretation Comments B/C Ratio (test code = B/C Ratio) 23 1 6-25 [place] [address]-06-17 04:12:00 Test Item Value Reference Range Interpretation Comments Globulin (test code = Globulin) 2.9 2.7-4.2 [place] [address]-06-17 04:12:00 Test Item Value Reference Range Interpretation Comments A/G Ratio (test code = A/G Ratio) 1.3 1 0.7-1.6 [place] [address]-06-17 04:12:00 Test Item Value Reference Range Interpretation Comments eGFR (test code = eGFR) 28 [place] [address]-06-17 04:12:00 Test Item Value Reference Range Interpretation Comments WBC (test code = WBC) 6.3 3.7-10.4 [place] [address]-06-17 04:12:00 Test Item Value Reference Range Interpretation Comments RBC (test code = RBC) 3.81 4.20-5.40 [place] [address]-06-17 04:12:00 Test Item Value Reference Range Interpretation Comments Hgb (test code = Hgb) 12.5 12.0-16.0 [place] [address]-06-17 04:12:00 Test Item Value Reference Range Interpretation Comments Hct (test code = Hct) 36.7 36.0-48.0 [place] [address]-06-17 04:12:00 Test Item Value Reference Range Interpretation Comments MCV (test code = MCV) 96.1 80.0-98.0 [place] [address]-06-17 04:12:00 Test Item Value Reference Range Interpretation Comments MCH (test code = MCH) 32.8 pg 27.0-31.0 [place] [address]-06-17 04:12:00 Test Item Value Reference Range Interpretation Comments MCHC (test code = MCHC) 34.1 32.0-36.0 [place] [address]-06-17 04:12:00 Test Item Value Reference Range Interpretation Comments RDW (test code = RDW) 12.8 11.5-14.5 [place] [address]-06-17 04:12:00 Test Item Value Reference Range Interpretation Comments Platelet (test code = Platelet) 145 133-450 [place] [address]-06-17 04:12:00 Test Item Value Reference Range Interpretation Comments MPV (test code = MPV) 7.8 7.4-10.4 [place] [address]-06-17 04:12:00 Test Item Value Reference Range Interpretation Comments PTT (test code = PTT) 28.6 s 22.9-35.8 [place] [address]-06-17 04:12:00 Test Item Value Reference Range Interpretation Comments PT (test code = PT) 12.4 s 12.0-14.7 [place] [address]-06-17 04:12:00 Test Item Value Reference Range Interpretation Comments INR (test code = INR) 0.92 1 0.85-1.17 [place] [address]-06-17 04:12:00 Test Item Value Reference Range Interpretation Comments Segs (test code = Segs) 59.7 45.0-75.0 [place] [address]-06-17 04:12:00 Test Item Value Reference Range Interpretation Comments Lymphocytes (test code = Lymphocytes) 29.8 20.0-40.0 [place] [address]-06-17 04:12:00 Test Item Value Reference Range Interpretation Comments Monocytes (test code = Monocytes) 6.8 2.0-12.0 [place] [address]-06-17 04:12:00 Test Item Value Reference Range Interpretation Comments Eosinophils (test code = 1.7 See_Comment [A utomated message] The Eosinophils) system which ge nerated this result tra nsmitted reference range : <=4.0. The reference r kendell was not used to int erpret this result as normal/abnormal . [place] 224260-06-17 04:12:00 Test Item Value Reference Range Interpretation Comments Basophils (test code = 2.0 See_Comment [Aut omated message] The Basophils) system which ge nerated this result tra nsmitted reference range : <=1.0. The reference r kenedll was not used to int erpret this result as normal/abnormal . [facility]kfoiytYGRITIYUIC7567-47-44 04:12:00 Test Item Value Reference Range Interpretation Comments Neutrophils # (test code = Neutrophils 3.8 1.5-8.1 #) [facility]entonDolybvvCRNXXEKWVS6372-58-99 04:12:00 Test Item Value Reference Range Interpretation Comments Lymphocytes # (test code = Lymphocytes 1.9 1.0-5.5 #) [facility]entonLcygfgnCYIHTKOTFY0988-64-22 04:12:00 Test Item Value Reference Range Interpretation Comments Monocytes # (test code 0.4 See_Comment [Aut omated message] The = Monocytes #) system which generated this result tra nsmitted reference range : <=0.8. The reference r kendell was not used to int erpret this result as normal/abnormal . [facility]entonYexzozyLKALHWMWGT0966-44-50 04:12:00 Test Item Value Reference Range Interpretation Comments Eosinophils # (test code 0.1 See_Comment [A utomated message] The = Eosinophils #) system whic h generated this result tra nsmitted reference range : <=0.5. The reference r kendell was not used to int erpret this result as normal/abnormal . [facility]entonEbnnmaeUQFQLYCRHD6404-34-76 04:12:00 Test Item Value Reference Range Interpretation Comments Basophils # (test code 0.1 See_Comment [Aut omated message] The = Basophils #) system which generated this result tra nsmitted reference range : <=0.2. The reference r kendell was not used to int erpret this result as normal/abnormal . [facility] [id number] 08:51:00 Test Item Value Reference Range Interpretation Comments Magnesium Lvl (test code = Magnesium 1.9 1.8-2.4 Lvl) [facility] [id number] 08:51:00 Test Item Value Reference Range Interpretation Comments Phosphorus (test code = Phosphorus) 3.7 2.5-4.5 [facility] [id number] 08:51:00 Test Item Value Reference Range Interpretation Comments Glucose Lvl (test code = Glucose Lvl) 127 70-99 [place] [address]-05-14 08:51:00 Test Item Value Reference Range Interpretation Comments BUN (test code = BUN) 15 7-22 [place] [address]-05-14 08:51:00 Test Item Value Reference Range Interpretation Comments Creatinine Lvl (test code = Creatinine 0.88 0.50-1.40 Lvl) [place] [address]-05-14 08:51:00 Test Item Value Reference Range Interpretation Comments Sodium Lvl (test code = Sodium Lvl) 138 135-145 [place] [address]-05-14 08:51:00 Test Item Value Reference Range Interpretation Comments Potassium Lvl (test code = Potassium 3.7 3.5-5.1 Lvl) [place] [address]-05-14 08:51:00 Test Item Value Reference Range Interpretation Comments Chloride Lvl (test code = Chloride Lvl) 104 95-109 [place] [address]-05-14 08:51:00 Test Item Value Reference Range Interpretation Comments CO2 (test code = CO2) 24 24-32 [place] [address]-05-14 08:51:00 Test Item Value Reference Range Interpretation Comments Calcium Lvl (test code = Calcium Lvl) 8.6 8.5-10.5 [place] [address]-05-14 08:51:00 Test Item Value Reference Range Interpretation Comments AGAP (test code = AGAP) 13.7 10.0-20.0 [place] [address]-05-14 08:51:00 Test Item Value Reference Range Interpretation Comments eGFR (test code = eGFR) 74 [place] [address]-05-14 08:51:00 Test Item Value Reference Range Interpretation Comments Segs (test code = Segs) 34.6 45.0-75.0 [place] [address]-05-14 08:51:00 Test Item Value Reference Range Interpretation Comments Lymphocytes (test code = Lymphocytes) 52.1 20.0-40.0 [place] [address]-05-14 08:51:00 Test Item Value Reference Range Interpretation Comments Monocytes (test code = Monocytes) 8.0 2.0-12.0 [place] [address]-05-14 08:51:00 Test Item Value Reference Range Interpretation Comments Eosinophils (test code = 4.4 See_Comment [A utomated message] The Eosinophils) system which ge nerated this result tra nsmitted reference range : <=4.0. The reference r kendell was not used to int erpret this result as normal/abnormal . [place] [address]-05-14 08:51:00 Test Item Value Reference Range Interpretation Comments Basophils (test code = 0.9 See_Comment [Aut omated message] The Basophils) system which ge nerated this result tra nsmitted reference range : <=1.0. The reference r kendell was not used to int erpret this result as normal/abnormal . [place] [address]-05-14 08:51:00 Test Item Value Reference Range Interpretation Comments Neutrophils # (test code = Neutrophils 1.7 1.5-8.1 #) [place] [address]-05-14 08:51:00 Test Item Value Reference Range Interpretation Comments Lymphocytes # (test code = Lymphocytes 2.6 1.0-5.5 #) [place] [address]-05-14 08:51:00 Test Item Value Reference Range Interpretation Comments Monocytes # (test code 0.4 See_Comment [Aut omated message] The = Monocytes #) system which generated this result tra nsmitted reference range : <=0.8. The reference r kendell was not used to int erpret this result as normal/abnormal . [facility]entonJyhokngJAQJADCQFL9247-34-80 08:51:00 Test Item Value Reference Range Interpretation Comments Eosinophils # (test code 0.2 See_Comment [A utomated message] The = Eosinophils #) system whic h generated this result tra nsmitted reference range : <=0.5. The reference r kendell was not used to int erpret this result as normal/abnormal . [facility]entonUnsyfmvGOLBURKUSO0916-90-98 08:51:00 Test Item Value Reference Range Interpretation Comments WBC (test code = WBC) 4.9 3.7-10.4 [place] [address]-05-14 08:51:00 Test Item Value Reference Range Interpretation Comments RBC (test code = RBC) 3.72 4.20-5.40 [place] [address]-05-14 08:51:00 Test Item Value Reference Range Interpretation Comments Hgb (test code = Hgb) 12.2 12.0-16.0 [facility] CenterDdybcjpWHTRXLKSWN1893-07-41 08:51:00 Test Item Value Reference Range Interpretation Comments Hct (test code = Hct) 35.4 36.0-48.0 [facility] CenterBqcokugNRUOYIHAII5153-69-79 08:51:00 Test Item Value Reference Range Interpretation Comments MCV (test code = MCV) 95.0 80.0-98.0 [facility] CenterYuymfldICUIGUAACJ2384-28-74 08:51:00 Test Item Value Reference Range Interpretation Comments MCH (test code = MCH) 32.7 pg 27.0-31.0 [facility] CenterQwtmfcnHEBTYBGYXA7538-30-08 08:51:00 Test Item Value Reference Range Interpretation Comments MCHC (test code = MCHC) 34.4 32.0-36.0 [facility] CenterIjrqyljKLAJSWOKFN1726-63-42 08:51:00 Test Item Value Reference Range Interpretation Comments RDW (test code = RDW) 13.1 11.5-14.5 [facility] CenterYrnyqygOVGYQWSZZN3397-18-58 08:51:00 Test Item Value Reference Range Interpretation Comments Platelet (test code = Platelet) 219 133-450 [facility] CenterKbkzcveTBEFAIANYM2597-03-26 08:51:00 Test Item Value Reference Range Interpretation Comments MPV (test code = MPV) 7.6 7.4-10.4 [facility] CenterannPARATHYROID [id number] 08:51:00 Test Item Value Reference Range Interpretation Comments Ca Ion WB (test code = Ca Ion WB) 1.14 1.05-1.25 [facility] CenterannPARATHYROID [id number] 08:51:00 Test Item Value Reference Range Interpretation Comments Ca Norm WB (test code = Ca Norm WB) 1.14 1.05-1.25 [facility] CenterannBACTERIAL - [id number] 17:24:00 Test Item Value Reference Range Interpretation Comments Source Strep (test code Cerebral Spinal Fluid = Source Strep) [facility] CenterannBACTERIAL - [id number] 17:24:00 Test Item Value Reference Range Interpretation Comments Strep pneumoniae Ag Negative (03/21/20 (test code = Strep 12:24 PM) pneumoniae Ag) [facility] CenterannBODY [id number] 17:24:00 Test Item Value Reference Range Interpretation Comments Tube Num CSF (test code = Tube Num CSF) 1 1 [facility] [id number] 17:24:00 Test Item Value Reference Range Interpretation Comments Color CSF (test code Colorless (03/21/20 12:24 = Color CSF) PM) [facility] [id number] 17:24:00 Test Item Value Reference Range Interpretation Comments Clarity CSF (test code = Clear (03/21/20 12:24 Clarity CSF) PM) [facility]2020-05-13 17:24:00 Test Item Value Reference Range Interpretation Comments Supernat CSF (test Colorless (03/21/20 code = Supernat CSF) 12:24 PM) [facility] [id number] 17:24:00 Test Item Value Reference Range Interpretation Comments Nucleated Cells CSF 0 See_Comment [Automa theodore message] The (test code = Nucleated syste m which generated Cells CSF) this result tra nsmitted reference range : <=53. The reference r kendell was not used to int erpret this result as normal/abnormal . [facility] [id number] 17:24:00 Test Item Value Reference Range Interpretation Comments RBC CSF (test code = 1 See_Comment [Autom ated message] The RBC CSF) system which ge nerated this result transmit theodore reference range : <=03. The reference range was not used to interpr et this result as david l/abnormal. [facility] [id number] 17:24:00 Test Item Value Reference Range Interpretation Comments Comment CSF (test Differential not code = Comment CSF) performed when WBC is zero. [facility] [id number] 17:24:00 Test Item Value Reference Range Interpretation Comments Glucose CSF (test code = Glucose CSF) 64 45-80 [facility] URDQGD3575-08-13 17:24:00 Test Item Value Reference Range Interpretation Comments Protein CSF (test code = Protein CSF) 31 15-45 [facility] [id number] 17:24:00 Test Item Value Reference Range Interpretation Comments Tube Num CSF (test code = Tube Num CSF) 4 1 [facility] [id number] 17:24:00 Test Item Value Reference Range Interpretation Comments Color CSF (test code Colorless (03/21/20 12:24 = Color CSF) PM) [facility] [id number] 17:24:00 Test Item Value Reference Range Interpretation Comments Clarity CSF (test code = Clear (03/21/20 12:24 Clarity CSF) PM) [facility] [id number] 17:24:00 Test Item Value Reference Range Interpretation Comments Supernat CSF (test Colorless (03/21/20 code = Supernat CSF) 12:24 PM) [facility]2020-05-13 17:24:00 Test Item Value Reference Range Interpretation Comments Nucleated Cells CSF 1 See_Comment [Automa theodore message] The (test code = Nucleated syste m which generated Cells CSF) this result tra nsmitted reference range : <=53. The reference r kendell was not used to int erpret this result as normal/abnormal . [facility]2020-05-13 17:24:00 Test Item Value Reference Range Interpretation Comments RBC CSF (test code = 0 See_Comment [Autom ated message] The RBC CSF) system which ge nerated this result transmit theodore reference range : <=03. The reference range was not used to interpr et this result as david l/abnormal. [facility] [id number] 17:24:00 Test Item Value Reference Range Interpretation Comments Comment CSF (test Differential not code = Comment CSF) performed on WBC count of less than 5. [facility]2020-05-13 17:24:00 Test Item Value Reference Range Interpretation Comments Lactic Acid CSF (test code = Lactic 1.9 0.6-2.2 Acid CSF) [facility] [id number] 17:24:00 Test Item Value Reference Range Interpretation Comments Crypto Ag CSF (test Negative (03/21/20 12:24 code = Crypto Ag CSF) PM) [facility] CenterEgitndvJGCIAQFPUQ5436-43-82 17:24:00 Test Item Value Reference Range Interpretation Comments VDRL Scr CSF (test Non Reactive (03/21/20 code = VDRL Scr CSF) 12:24 PM) [facility] CenterLmwfxxnLWUXZSNDWG0059-19-54 17:24:00 Test Item Value Reference Range Interpretation Comments Alb (CPE) (test code = Alb (CPE)) 3300.0 3400.0-5000.0 [facility] CenterBnjfnpkVZXQGPYJMW1682-83-77 17:24:00 Test Item Value Reference Range Interpretation Comments IgG Lvl CSF (test code = IgG Lvl CSF) 1.1 2.0-4.0 [facility] CenterEylfkkhRYSIMFHAQM7571-69-76 17:24:00 Test Item Value Reference Range Interpretation Comments IgG (CPE) (test code = IgG (CPE)) 940 145-2830 [facility] CenterUlqxgsiCAVINICBHR8977-84-94 17:24:00 Test Item Value Reference Range Interpretation Comments IgG Index (test code = IgG Index) 0.5 0.3-0.7 [facility] CenterGjbyzspOCARUUHOWJ7410-89-43 17:24:00 Test Item Value Reference Range Interpretation Comments Alb CSF (CPE) (test code = Alb CSF 15.4 14.0-25.0 (CPE)) [facility] CenterDgpgjixWBCSUQODBR5719-38-25 17:24:00 Test Item Value Reference Range Interpretation Comments Description CSF (test The gel demonstrates code = Description appropriate resolution CSF) of the main protein bands. The gamma region shows continuous distribution of proteins both in the CSF and in the serum. No oligoclonal bands are detected. [facility] CenterRjvegpjWHFMOJZYUA3359-27-25 17:24:00 Test Item Value Reference Range Interpretation Comments PE Interp CSF CSF protein electrophoresis (test code = PE did not reveal evidence of Interp CSF) an oligoclonal process in the [employer]ASH[employer] SHOW DIRECT[employer]. The CSF IgG index is within the reference range indicating that there is no elevation in intracerebral IgG synthesis. There is also no evidence of increased permeability of the blood brain barrier based on the CSF/serum albumin ratio. The electronic medical record has been reviewed for relevant history. I have personally reviewed the test results and concur with the resident's interpretation. CPT: 99674-JE [facility] CenterLebcvouMJYYDCDSJZ7447-37-72 17:24:00 Test Item Value Reference Range Interpretation Comments Albumin % (test code = Albumin %) 60.1 55.8-66.1 [facility] CenterHceebryDDHZKTTEVO4518-95-29 17:24:00 Test Item Value Reference Range Interpretation Comments Alpha 1 % (test code = Alpha 1 %) 6.7 2.8-4.9 [facility] CenterJxuepufVFPCAPLKIZ4270-88-28 17:24:00 Test Item Value Reference Range Interpretation Comments Alpha 2 % (test code = Alpha 2 %) 12.1 7.0-11.9 [facility] CenterEgopfayKVTATSCGYZ7527-19-18 17:24:00 Test Item Value Reference Range Interpretation Comments Beta % (test code = Beta %) 11.3 7.8-13.7 [facility] CenterUejbalaFFDDOFWTPC3278-37-69 17:24:00 Test Item Value Reference Range Interpretation Comments Gamma % (test code = Gamma %) 9.8 11.1-18.7 [facility] CenterEwmsytbOHJQZBVDOR0211-71-54 17:24:00 Test Item Value Reference Range Interpretation Comments Albumin (SPE) (test code = Albumin 4.21 3.57-5.55 (SPE)) [facility] CenterJdadqcjZADMSQFRYS8250-53-91 17:24:00 Test Item Value Reference Range Interpretation Comments Alpha 1 Glob (test code = Alpha 1 Glob) 0.47 0.18-0.41 [facility] CenterSdsbhfvBTCZQPDQWQ5064-48-60 17:24:00 Test Item Value Reference Range Interpretation Comments Alpha 2 Glob (test code = Alpha 2 Glob) 0.85 0.45-1.00 [facility] CenterEwzdvvxKTUSIOQUAF4536-83-70 17:24:00 Test Item Value Reference Range Interpretation Comments Beta Glob (test code = Beta Glob) 0.79 0.50-1.15 [facility] CenterWflbqedFGJLPFNEVE0195-76-47 17:24:00 Test Item Value Reference Range Interpretation Comments Gamma Glob (test code = Gamma Glob) 0.69 0.71-1.57 [facility] CenterKjtqteaESBDHOROIM2714-14-75 17:24:00 Test Item Value Reference Range Interpretation Comments Tot Prot (SPE) (test code = Tot Prot 7.0 6.4-8.4 (SPE)) [facility] CenterPxxqbleAVSKXTKONO1099-43-00 17:24:00 Test Item Value Reference Range Interpretation Comments SPE Interp (test Capillary electrophoresis code = SPE Interp) demonstrates hypogammaglobulinemia. This may be seen in light chain disease. Recommend serum and 24 hour urine immunofixation for further evaluation. Total protein is within the reference range. Serum protein electrophoresis shows an increase in the alpha-1 and decrease in gamma globulin fraction. All other globulin fractions are within the reference ranges. The electronic medical record has been reviewed for relevant history. I have personally reviewed the test results and concur with the resident's interpretation. CPT 73743-WW [facility] CenterOlnsgtyOBIJCXEQRS2890-21-01 17:24:00 Test Item Value Reference Range Interpretation Comments Toxoplasma IgG (test code = Toxoplasma no gt IgG) [facility] CenterZqugaqcOXITXPSTXI5196-16-12 17:24:00 Test Item Value Reference Range Interpretation Comments Toxoplasma IgM (test code = Toxoplasma 0.420 IgM) [facility] CenterannMOLECULAR BAVKFFFKUL0189-74-59 17:24:00 Test Item Value Reference Range Interpretation Comments Source HSV (test code = Cerebral Spinal Fluid Source HSV) [facility] CenterannAZLECULAR [id number] 17:24:00 Test Item Value Reference Range Interpretation Comments HSV 1 by PCR (test Not Performed 1(03/21/20 code = HSV 1 by PCR) 12:24 PM) [facility] CenterannAZLECULAR [id number] 17:24:00 Test Item Value Reference Range Interpretation Comments HSV 2 by PCR (test Not Performed 2(03/21/20 code = HSV 2 by PCR) 12:24 PM) [facility] CenterannAZLECULAR [id number] 17:24:00 Test Item Value Reference Range Interpretation Comments Source VZV (test code = Cerebral Spinal Fluid Source VZV) [facility] CenterannAZLECULAR BDQVTYCWLF6612-70-09 17:24:00 Test Item Value Reference Range Interpretation Comments VZV PCR (test code = Negative (03/21/20 12:24 VZV PCR) PM) [facility] CenterannAZLECULAR [id number] 17:24:00 Test Item Value Reference Range Interpretation Comments Source CMV (test code = Cerebral Spinal Fluid Source CMV) [facility] CenterannAZLECULAR [id number] 17:24:00 Test Item Value Reference Range Interpretation Comments CMV PCR (test code = Negative (03/21/20 12:24 CMV PCR) PM) [facility] CenterannVIRAL - [id number] 17:24:00 Test Item Value Reference Range Interpretation Comments Enterovirus PCR CSF Negative (03/21/20 (test code = Enterovirus 12:24 PM) PCR CSF) [facility] CenterannGram Stain Llcqtq2471-06-43 17:24:00 Test Item Value Reference Range Interpretation Comments Gram Stain Report Gram Stain Performed By: (test code = Gram [facility] Stain Report) [facility] w/Gram Ottgv5602-79-01 17:24:00 Test Item Value Reference Range Interpretation Comments Culture: CSF w/Gram 72 Hour Report - No Stain (test code = Growth, Holding Culture: CSF w/Gram Stain) [place] [address]-05-13 08:30:00 Test Item Value Reference Range Interpretation Comments Glucose Lvl (test code = Glucose Lvl) 100 70-99 [place] [address]-05-13 08:30:00 Test Item Value Reference Range Interpretation Comments BUN (test code = BUN) 12 7-22 [place] [address]-05-13 08:30:00 Test Item Value Reference Range Interpretation Comments Creatinine Lvl (test code = Creatinine 1.03 0.50-1.40 Lvl) [place] [address]-05-13 08:30:00 Test Item Value Reference Range Interpretation Comments Sodium Lvl (test code = Sodium Lvl) 135 135-145 [place] [address]-05-13 08:30:00 Test Item Value Reference Range Interpretation Comments Potassium Lvl (test code = Potassium 3.9 3.5-5.1 Lvl) [place] [address]-05-13 08:30:00 Test Item Value Reference Range Interpretation Comments Chloride Lvl (test code = Chloride Lvl) 102 95-109 [place] [address]-05-13 08:30:00 Test Item Value Reference Range Interpretation Comments CO2 (test code = CO2) 26 24-32 [place] [address]-05-13 08:30:00 Test Item Value Reference Range Interpretation Comments Calcium Lvl (test code = Calcium Lvl) 9.4 8.5-10.5 [place] [address]-05-13 08:30:00 Test Item Value Reference Range Interpretation Comments AGAP (test code = AGAP) 10.9 10.0-20.0 [place] 17079-05-13 08:30:00 Test Item Value Reference Range Interpretation Comments eGFR (test code = eGFR) 61 [place] [address]-05-13 08:30:00 Test Item Value Reference Range Interpretation Comments Magnesium Lvl (test code = Magnesium 2.0 1.8-2.4 Lvl) [place] [address]-05-13 08:30:00 Test Item Value Reference Range Interpretation Comments Phosphorus (test code = Phosphorus) 2.6 2.5-4.5 [facility]IP[facility]CRX2936[facility]68-[facility] 08:30:00 Test Item Value Reference Range Interpretation Comments WBC (test code = WBC) 6.6 3.7-10.4 [facility]vvVELDHQBCRZ8940-55-78 08:30:00 Test Item Value Reference Range Interpretation Comments RBC (test code = RBC) 4.11 4.20-5.40 [facility]GtxgtwqKVEZZWFYCG9687-29-97 08:30:00 Test Item Value Reference Range Interpretation Comments Hgb (test code = Hgb) 13.5 12.0-16.0 [facility]entonFrljydmKVFPZBXHPG9880-91-18 08:30:00 Test Item Value Reference Range Interpretation Comments Hct (test code = Hct) 39.7 36.0-48.0 [facility]entonZbzbqepJEPRPSLMIK9887-77-18 08:30:00 Test Item Value Reference Range Interpretation Comments MCV (test code = MCV) 96.7 80.0-98.0 [facility]entonBqunubaBKACDWCQJL6305-26-87 08:30:00 Test Item Value Reference Range Interpretation Comments MCH (test code = MCH) 32.8 pg 27.0-31.0 [facility]entonUdjurclCUTHLAEFLE7135-71-57 08:30:00 Test Item Value Reference Range Interpretation Comments MCHC (test code = MCHC) 33.9 32.0-36.0 [facility]KsughnxERASGCVIWE7148-41-92 08:30:00 Test Item Value Reference Range Interpretation Comments RDW (test code = RDW) 13.3 11.5-14.5 [facility]entonIcacwfqDGMTMZQUYZ9930-14-67 08:30:00 Test Item Value Reference Range Interpretation Comments Platelet (test code = Platelet) 291 133-450 [facility]entonWkpsonwTFZHAFSEKL4085-65-96 08:30:00 Test Item Value Reference Range Interpretation Comments MPV (test code = MPV) 8.1 7.4-10.4 [facility]entonUtxgxibREIDOSEPKF4593-70-24 08:30:00 Test Item Value Reference Range Interpretation Comments PT (test code = PT) 13.5 s 12.0-14.7 [facility]entonEulskfmQHPLLITKAG5265-18-59 08:30:00 Test Item Value Reference Range Interpretation Comments INR (test code = INR) 1.03 1 0.85-1.17 [facility]entonEkwlrukKUIFKMQFSH0604-16-31 08:30:00 Test Item Value Reference Range Interpretation Comments PTT (test code = PTT) 32.1 s 22.9-35.8 [place] [address]-05-13 08:30:00 Test Item Value Reference Range Interpretation Comments Segs (test code = Segs) 65.9 45.0-75.0 [place] [address]-05-13 08:30:00 Test Item Value Reference Range Interpretation Comments Lymphocytes (test code = Lymphocytes) 26.2 20.0-40.0 [place] [address]-05-13 08:30:00 Test Item Value Reference Range Interpretation Comments Monocytes (test code = Monocytes) 5.4 2.0-12.0 [address]05-13 08:30:00 Test Item Value Reference Range Interpretation Comments Eosinophils (test code = 1.3 See_Comment [A utomated message] The Eosinophils) system which ge nerated this result tra nsmitted reference range : <=4.0. The reference r kendell was not used to int erpret this result as normal/abnormal . [place] [address]-05-13 08:30:00 Test Item Value Reference Range Interpretation Comments Basophils (test code = 1.2 See_Comment [Aut omated message] The Basophils) system which ge nerated this result tra nsmitted reference range : <=1.0. The reference r kendell was not used to int erpret this result as normal/abnormal . [place] [address]-05-13 08:30:00 Test Item Value Reference Range Interpretation Comments Neutrophils # (test code = Neutrophils 4.3 1.5-8.1 #) [place] [address]-05-13 08:30:00 Test Item Value Reference Range Interpretation Comments Lymphocytes # (test code = Lymphocytes 1.7 1.0-5.5 #) [address]05-13 08:30:00 Test Item Value Reference Range Interpretation Comments Monocytes # (test code 0.4 See_Comment [Aut omated message] The = Monocytes #) system which generated this result tra nsmitted reference range : <=0.8. The reference r kendell was not used to int erpret this result as normal/abnormal . [place] [address]-05-13 08:30:00 Test Item Value Reference Range Interpretation Comments Eosinophils # (test code 0.1 See_Comment [A utomated message] The = Eosinophils #) system whic h generated this result tra nsmitted reference range : <=0.5. The reference r kendell was not used to int erpret this result as normal/abnormal . [facility]MjidcrbZSIZUBTCET3504-13-22 08:30:00 Test Item Value Reference Range Interpretation Comments Basophils # (test code 0.1 See_Comment [Aut omated message] The = Basophils #) system which generated this result tra nsmitted reference range : <=0.2. The reference r kendell was not used to int erpret this result as normal/abnormal . [facility]2020-05-13 08:30:00 Test Item Value Reference Range Interpretation Comments Ca Ion WB (test code = Ca Ion WB) 1.14 1.05-1.25 [place] 838530-05-13 08:30:00 Test Item Value Reference Range Interpretation Comments Ca Norm WB (test code = Ca Norm WB) 1.15 1.05-1.25 [facility] CenterDihnfgyHZFUXPKUCT9052-50-59 22:50:00 Test Item Value Reference Range Interpretation Comments Coronavirus (COVID-19) Not Detected (03/20/20 CHRIS (test code = 5:50 PM) Coronavirus (COVID-19) CHRIS) [facility]QxwtknlPMMQCSNNIC5419-33-35 18:47:00 Test Item Value Reference Range Interpretation Comments Sed Rate (test code = 5 See_Comment [Auto mated message] The Sed Rate) system which ge nerated this result transmit theodore reference range : <=20. The reference range was not used to interpr et this result as david l/abnormal. [facility] CenterAgsxmnyGSYVPRTFVC4742-18-31 18:47:00 Test Item Value Reference Range Interpretation Comments HIV Ag/Ab 4th Gen Negative *NA*(03/20/20 (test code = HIV 1:47 PM) Ag/Ab 4th Gen) [place] [address]-05-12 18:47:00 Test Item Value Reference Range Interpretation Comments Treponemal Ab (test code Non-Reactive = Treponemal Ab) *NA*(03/20/20 1:47 PM) [place] [address]-05-12 18:47:00 Test Item Value Reference Range Interpretation Comments C-REACTIVE PROTEIN (test code = 3.3 C-REACTIVE PROTEIN) [facility] CenterPmnuuxnTAOBSRJPLK9279-86-65 18:47:00 Test Item Value Reference Range Interpretation Comments Hep Bs Ag (test code Negative *NA*(03/20/20 = Hep Bs Ag) 1:47 PM) [facility] CenterZzysrtaUDQCWHODTB1497-64-99 18:47:00 Test Item Value Reference Range Interpretation Comments Hep C Ab (test code = Negative *NA*(03/20/20 Hep C Ab) 1:47 PM) [facility] CenterAtpgmfkRUKVQFCDAN4868-66-43 18:47:00 Test Item Value Reference Range Interpretation Comments Hep B Core IgM (test Negative *NA*(03/20/20 code = Hep B Core 1:47 PM) IgM) [facility] CenterSrqbhiuZQYZPIVFOR5275-55-14 18:47:00 Test Item Value Reference Range Interpretation Comments Hep A IgM (test code Negative *NA*(03/20/20 = Hep A IgM) 1:47 PM) [facility]DqgumsfVPWLAMBTWS7028-66-38 05:27:00 Test Item Value Reference Range Interpretation Comments MCV (test code = MCV) 94.7 80.0-98.0 [facility]entonPrztsciKZESGCYOMM7190-59-08 05:27:00 Test Item Value Reference Range Interpretation Comments MCH (test code = MCH) 31.7 pg 27.0-31.0 [facility]entonRdimhhoSADBJXSKDX4197-03-01 05:27:00 Test Item Value Reference Range Interpretation Comments MCHC (test code = MCHC) 33.5 32.0-36.0 [facility]entonPjqtsocWKAOAYIKCZ0214-95-51 05:27:00 Test Item Value Reference Range Interpretation Comments RDW (test code = RDW) 13.2 11.5-14.5 [facility]entonZvqmycbMRQBZVNNEF8874-31-11 05:27:00 Test Item Value Reference Range Interpretation Comments Platelet (test code = Platelet) 256 133-450 [facility]KfscnhiBXBOMZPZJW3698-99-18 05:27:00 Test Item Value Reference Range Interpretation Comments MPV (test code = MPV) 7.2 7.4-10.4 [facility]entonWoppjauPBBLYMGNJS6068-30-12 05:27:00 Test Item Value Reference Range Interpretation Comments Segs (test code = Segs) 75.4 45.0-75.0 [facility]entonOosnjrzASRJYOEDYQ0886-21-72 05:27:00 Test Item Value Reference Range Interpretation Comments Lymphocytes (test code = Lymphocytes) 16.6 20.0-40.0 [facility]entonAyfpgplMMYHISNEBB6898-98-84 05:27:00 Test Item Value Reference Range Interpretation Comments Monocytes (test code = Monocytes) 7.3 2.0-12.0 [place] 224260-05-12 05:27:00 Test Item Value Reference Range Interpretation Comments Eosinophils (test code = 0.1 See_Comment [A utomated message] The Eosinophils) system which ge nerated this result tra nsmitted reference range : <=4.0. The reference r kendell was not used to int erpret this result as normal/abnormal . [facility]entonOzbofpiWRDHANPOOB2058-86-53 05:27:00 Test Item Value Reference Range Interpretation Comments Basophils (test code = 0.6 See_Comment [Aut omated message] The Basophils) system which ge nerated this result tra nsmitted reference range : <=1.0. The reference r kendell was not used to int erpret this result as normal/abnormal . [facility]entonMaeyxtrWJZHDSGGRS8952-49-56 05:27:00 Test Item Value Reference Range Interpretation Comments Neutrophils # (test code = Neutrophils 7.1 1.5-8.1 #) [facility]entonEwyexchBPHCRSFCMC3869-45-81 05:27:00 Test Item Value Reference Range Interpretation Comments Lymphocytes # (test code = Lymphocytes 1.6 1.0-5.5 #) [facility]entonPqtvusfMCJZXWCQCV7185-47-68 05:27:00 Test Item Value Reference Range Interpretation Comments Monocytes # (test code 0.7 See_Comment [Aut omated message] The = Monocytes #) system which generated this result tra nsmitted reference range : <=0.8. The reference r kendell was not used to int erpret this result as normal/abnormal . [facility]entonNzrivycJBCDRLKWHO2101-26-19 05:27:00 Test Item Value Reference Range Interpretation Comments Basophils # (test code 0.1 See_Comment [Aut omated message] The = Basophils #) system which generated this result tra nsmitted reference range : <=0.2. The reference r kendell was not used to int erpret this result as normal/abnormal . [facility]ATHY[facility] UTDJAJT3932-33-10 05:27:00 Test Item Value Reference Range Interpretation Comments Ca Ion WB (test code = Ca Ion WB) 1.11 1.05-1.25 [facility] CenterPARATHYROID [id number] 05:27:00 Test Item Value Reference Range Interpretation Comments Ca Norm WB (test code = Ca Norm WB) 1.13 1.05-1.25 [facility] CenterCHEM [id number] 05:27:00 Test Item Value Reference Range Interpretation Comments Magnesium Lvl (test code = Magnesium 2.0 1.8-2.4 Lvl) [facility]2020-05-12 05:27:00 Test Item Value Reference Range Interpretation Comments Glucose Lvl (test code = Glucose Lvl) 102 70-99 [facility]2020-05-12 05:27:00 Test Item Value Reference Range Interpretation Comments BUN (test code = BUN) 13 7-22 [facility]2020-05-12 05:27:00 Test Item Value Reference Range Interpretation Comments Creatinine Lvl (test code = Creatinine 0.68 0.50-1.40 Lvl) [facility]2020-05-12 05:27:00 Test Item Value Reference Range Interpretation Comments Sodium Lvl (test code = Sodium Lvl) 140 135-145 [facility]2020-05-12 05:27:00 Test Item Value Reference Range Interpretation Comments Potassium Lvl (test code = Potassium 3.3 3.5-5.1 Lvl) [facility]2020-05-12 05:27:00 Test Item Value Reference Range Interpretation Comments Chloride Lvl (test code = Chloride Lvl) 107 95-109 [facility]2020-05-12 05:27:00 Test Item Value Reference Range Interpretation Comments CO2 (test code = CO2) 24 24-32 [place] 874820-05-12 05:27:00 Test Item Value Reference Range Interpretation Comments AGAP (test code = AGAP) 12.3 10.0-20.0 [place] 874820-05-12 05:27:00 Test Item Value Reference Range Interpretation Comments Calcium Lvl (test code = Calcium Lvl) 8.8 8.5-10.5 [facility]2020-05-12 05:27:00 Test Item Value Reference Range Interpretation Comments eGFR (test code = eGFR) 99 [facility]2020-05-12 05:27:00 Test Item Value Reference Range Interpretation Comments Phosphorus (test code = Phosphorus) 2.5 2.5-4.5 [facility] CenterOaqxbcmRYKHJWTLJD5089-95-04 05:27:00 Test Item Value Reference Range Interpretation Comments Hgb (test code = Hgb) 13.8 12.0-16.0 [facility] CenterAigtyaaJHXCMCTVLW6550-10-09 05:27:00 Test Item Value Reference Range Interpretation Comments WBC (test code = WBC) 9.5 3.7-10.4 [facility] CenterGnczzbhUKWYURAQMN7066-42-31 05:27:00 Test Item Value Reference Range Interpretation Comments RBC (test code = RBC) 4.25 4.20-5.40 [facility] CenterDnygxnsJBSLDPMDOK4733-18-49 05:27:00 Test Item Value Reference Range Interpretation Comments Hgb (test code = Hgb) 13.5 12.0-16.0 [facility] HospitalWfuvylcPUGRVJBAGM1026-16-08 05:27:00 Test Item Value Reference Range Interpretation Comments Hct (test code = Hct) 40.2 36.0-48.0 [facility] CenterCARDIAC [id number] 17:26:00 Test Item Value Reference Range Interpretation Comments Troponin-I (test code 0.10 See_Comment [Auto mated message] The = Troponin-I) system which g enerated this result transmit theodore reference range : <=0.40. The reference r kendell was not used to interpr et this result as david l/abnormal. [facility] CenterannDRUG [id number] 17:26:00 Test Item Value Reference Range Interpretation Comments U Amph Scr (test code Negative *NA*(03/19/20 = U Amph Scr) 12:26 PM) [facility] CenterannDR[facility] [id number] 17:26:00 Test Item Value Reference Range Interpretation Comments U Parisa Scr (test code Negative *NA*(03/19/20 = U Parisa Scr) 12:26 PM) [facility] [id number] 17:26:00 Test Item Value Reference Range Interpretation Comments U Benzodiaz Scr (test Positive *ABN*(03/19/20 code = U Benzodiaz Scr) 12:26 PM) [facility] HermannDRUG [id number] 17:26:00 Test Item Value Reference Range Interpretation Comments U Cannab Scr (test Negative *NA*(03/19/20 code = U Cannab Scr) 12:26 PM) [facility]annDR[facility] [id number] 17:26:00 Test Item Value Reference Range Interpretation Comments U Cocaine Scr (test Negative *NA*(03/19/20 code = U Cocaine Scr) 12:26 PM) [facility]annDR[facility] [id number] 17:26:00 Test Item Value Reference Range Interpretation Comments U Opiate Scr (test Positive *ABN*(03/19/20 code = U Opiate Scr) 12:26 PM) [facility]annDR[facility] [id number] 17:26:00 Test Item Value Reference Range Interpretation Comments U Phencyclidine Scr (test Negative code = U Phencyclidine *NA*(03/19/20 12:26 Scr) PM) [facility] CenterDR[facility] [id number] 17:26:00 Test Item Value Reference Range Interpretation Comments UDS Note (test code = See Note (03/19/20 12:26 UDS Note) PM) [facility] CenterLylfqzfJMOJOMKYOV8245-88-54 13:42:00 Test Item Value Reference Range Interpretation Comments PT (test code = PT) 11.7 s 12.0-14.7 [facility] CenterKkaokppAZQIAUSQPE3752-68-89 13:42:00 Test Item Value Reference Range Interpretation Comments INR (test code = INR) 0.86 1 0.85-1.17 [facility] CenterGmdezikVCRJZUCLHF9635-79-85 13:42:00 Test Item Value Reference Range Interpretation Comments PTT (test code = PTT) 20.7 s 22.9-35.8 [facility]annDR[facility] [id number] 13:31:00 Test Item Value Reference Range Interpretation Comments Phencyclidine Scr (test code = Negative Phencyclidine Scr) [facility]annDR[facility] [id number] 13:31:00 Test Item Value Reference Range Interpretation Comments Parisa Scr (test code = Parisa Scr) Negative [facility]annDR[facility] [id number] 13:31:00 Test Item Value Reference Range Interpretation Comments Cannab Scr (test code = Cannab Scr) Negative [facility]annDR[facility] [id number] 13:31:00 Test Item Value Reference Range Interpretation Comments Methadone Scr (test code = Methadone Negative Scr) [facility]annDR[facility] [id number] 13:31:00 Test Item Value Reference Range Interpretation Comments Cocaine Scr (test code = Cocaine Negative Scr) [facility]annDR[facility] [id number] 13:31:00 Test Item Value Reference Range Interpretation Comments Benzodiaz Scr (test code = Benzodiaz Positive Scr) [facility]annDR[facility] [id number] 13:31:00 Test Item Value Reference Range Interpretation Comments Amph Scr (test code = Amph Scr) Negative [facility]annDR[facility] [id number] 13:31:00 Test Item Value Reference Range Interpretation Comments Opiate Scr (test code = Opiate Scr) Positive [facility]annDR[facility] [id number] 13:31:00 Test Item Value Reference Range Interpretation Comments 6-Acetylmor Scr (test code = Negative 6-Acetylmor Scr) [facility]annDR[facility] [id number] 13:31:00 Test Item Value Reference Range Interpretation Comments Benzodiaz Qnt (test code = Benzodiaz Negative Qnt) [facility] CenterSellf [id number] 13:31:00 Test Item Value Reference Range Interpretation Comments Opiate Qnt (test code = Opiate Qnt) Positive [facility] CenterSarta [id number] 12:30:00 Test Item Value Reference Range Interpretation Comments B/C Ratio (test code = B/C Ratio) 22 1 6-25 [facility] Incipient [id number] 12:30:00 Test Item Value Reference Range Interpretation Comments ALT (test code = ALT) 46 See_Comment [Auto mated message] The system which ge nerated this result transmit theodore reference range : <=65. The reference range was not used to interpr et this result as david l/abnormal. [facility] [id number] 12:30:00 Test Item Value Reference Range Interpretation Comments Albumin Lvl (test code = Albumin Lvl) 3.7 3.5-5.0 [facility] Inc[facility]ient [id number] 12:30:00 Test Item Value Reference Range Interpretation Comments Alk Phos (test code = Alk Phos) 102 39-136 [facility] CenterSarta [id number] 12:30:00 Test Item Value Reference Range Interpretation Comments Total Protein (test code = Total 7.0 6.4-8.4 Protein) [facility] CenterSarta [id number] 12:30:00 Test Item Value Reference Range Interpretation Comments Globulin (test code = Globulin) 3.3 2.7-4.2 [facility] CenterHealth [employer] [id number] 12:30:00 Test Item Value Reference Range Interpretation Comments A/G Ratio (test code = A/G Ratio) 1.1 1 0.7-1.6 [facility]Health [employer] [id number] 12:30:00 Test Item Value Reference Range Interpretation Comments AST (test code = AST) 47 See_Comment [Auto mated message] The system which ge nerated this result transmit theodore reference range : <=37. The reference range was not used to interpr et this result as david l/abnormal. [facility] CenterSarta [id number] 12:30:00 Test Item Value Reference Range Interpretation Comments Bili Total (test code = Bili Total) 1.2 0.2-1.3 [facility] CenterHcazycwCUTDHNZGHF7244-93-69 12:30:00 Test Item Value Reference Range Interpretation Comments RBC Morph (test code = Normal (03/19/20 7:30 RBC Morph) AM) [facility] CenterGnmwdbxQEKEAWMAMA9087-35-08 12:30:00 Test Item Value Reference Range Interpretation Comments Plt Morph (test code = Normal (03/19/20 7:30 Plt Morph) AM) [facility] CenterHccwotjMNNFYFFHKU9371-75-27 12:30:00 Test Item Value Reference Range Interpretation Comments Basophils # (test code 0.1 See_Comment [Aut omated message] The = Basophils #) system which generated this result tra nsmitted reference range : <=0.2. The reference r kendell was not used to int erpret this result as normal/abnormal . [facility] CenterCARDIAC [id number] 12:28:00 Test Item Value Reference Range Interpretation Comments Troponin-I (test code 0.41 See_Comment [Auto mated message] The = Troponin-I) system which g enerated this result transmit theodore reference range : <=0.40. The reference r kendell was not used to interpr et this result as david l/abnormal. [facility]20/20 [employer]IAL [id number] 12:28:00 Test Item Value Reference Range Interpretation Comments Hgb A1C (test code = Hgb A1C) 4.9 [facility] CenterTrunk ClubAC [id number] 05:33:00 Test Item Value Reference Range Interpretation Comments Troponin-I (test code 0.52 See_Comment [Auto mated message] The = Troponin-I) system which g enerated this result transmit theodore reference range : <=0.40. The reference r kendell was not used to interpr et this result as david l/abnormal. [facility] CenterCARDIAC [id number] 05:33:00 Test Item Value Reference Range Interpretation Comments Total CK (test code = Total CK) 198 12-191 [facility] [id number] 05:33:00 Test Item Value Reference Range Interpretation Comments Glucose Lvl (test code = Glucose Lvl) 106 70-99 [facility] [id number] 05:33:00 Test Item Value Reference Range Interpretation Comments BUN (test code = BUN) 21 7-22 [facility]2020-05-11 05:33:00 Test Item Value Reference Range Interpretation Comments Creatinine Lvl (test code = Creatinine 1.02 0.50-1.40 Lvl) [facility]2020-05-11 05:33:00 Test Item Value Reference Range Interpretation Comments Sodium Lvl (test code = Sodium Lvl) 139 135-145 [facility]2020-05-11 05:33:00 Test Item Value Reference Range Interpretation Comments Potassium Lvl (test code = Potassium 3.8 3.5-5.1 Lvl) [facility] [id number] 05:33:00 Test Item Value Reference Range Interpretation Comments Chloride Lvl (test code = Chloride Lvl) 107 95-109 [facility]2020-05-11 05:33:00 Test Item Value Reference Range Interpretation Comments CO2 (test code = CO2) 24 24-32 [facility] [id number] 05:33:00 Test Item Value Reference Range Interpretation Comments Calcium Lvl (test code = Calcium Lvl) 9.1 8.5-10.5 [facility]2020-05-11 05:33:00 Test Item Value Reference Range Interpretation Comments Total Protein (test code = Total 7.4 6.4-8.4 Protein) [facility]2020-05-11 05:33:00 Test Item Value Reference Range Interpretation Comments Albumin Lvl (test code = Albumin Lvl) 3.9 3.5-5.0 [facility] CenterHealth [employer] [id number] 05:33:00 Test Item Value Reference Range Interpretation Comments ALT (test code = ALT) 48 See_Comment [Auto mated message] The system which ge nerated this result transmit theodore reference range : <=65. The reference range was not used to interpr et this result as david l/abnormal. [facility] [id number] 05:33:00 Test Item Value Reference Range Interpretation Comments AST (test code = AST) 44 See_Comment [Auto mated message] The system which ge nerated this result transmit theodore reference range : <=37. The reference range was not used to interpr et this result as david l/abnormal. [facility] [id number] 05:33:00 Test Item Value Reference Range Interpretation Comments Alk Phos (test code = Alk Phos) 106 39-136 [facility] [id number] 05:33:00 Test Item Value Reference Range Interpretation Comments Bili Total (test code = Bili Total) 1.1 0.2-1.3 [facility] [id number] 05:33:00 Test Item Value Reference Range Interpretation Comments AGAP (test code = AGAP) 11.8 10.0-20.0 [facility] [facility] [id number] 05:33:00 Test Item Value Reference Range Interpretation Comments B/C Ratio (test code = B/C Ratio) 21 1 6-25 [facility] [id number] 05:33:00 Test Item Value Reference Range Interpretation Comments Globulin (test code = Globulin) 3.5 2.7-4.2 [facility] [id number] 05:33:00 Test Item Value Reference Range Interpretation Comments A/G Ratio (test code = A/G Ratio) 1.1 1 0.7-1.6 [facility] [id number] 05:33:00 Test Item Value Reference Range Interpretation Comments eGFR (test code = eGFR) 62 [facility] [id number] 05:33:00 Test Item Value Reference Range Interpretation Comments Magnesium Lvl (test code = Magnesium 2.1 1.8-2.4 Lvl) [facility] [id number] 05:33:00 Test Item Value Reference Range Interpretation Comments Phosphorus (test code = Phosphorus) 2.6 2.5-4.5 [facility]RxolmqhWCWEBUKDWS4111-64-91 05:33:00 Test Item Value Reference Range Interpretation Comments WBC (test code = WBC) 11.4 3.7-10.4 [facility]entonDzrumiaLWSTPBANQB2399-31-64 05:33:00 Test Item Value Reference Range Interpretation Comments RBC (test code = RBC) 4.44 4.20-5.40 [facility]entonGjszijpMQHWZCRVHX2099-86-64 05:33:00 Test Item Value Reference Range Interpretation Comments Hgb (test code = Hgb) 14.7 12.0-16.0 [facility]entonAizzkpxUTQCHRACUN9415-43-13 05:33:00 Test Item Value Reference Range Interpretation Comments Hct (test code = Hct) 42.4 36.0-48.0 [facility]entonEdwmmohXKAMNYRKTA9449-95-38 05:33:00 Test Item Value Reference Range Interpretation Comments MCV (test code = MCV) 95.5 80.0-98.0 [facility]entonMhgwkqfWRMDBDAGAP8471-89-38 05:33:00 Test Item Value Reference Range Interpretation Comments MCH (test code = MCH) 33.1 pg 27.0-31.0 [facility]entonVcrebfpRTYYPTZGIG5244-05-23 05:33:00 Test Item Value Reference Range Interpretation Comments MCHC (test code = MCHC) 34.6 32.0-36.0 [facility]entonZehvqciZRELYYHCYX5490-21-06 05:33:00 Test Item Value Reference Range Interpretation Comments RDW (test code = RDW) 13.0 11.5-14.5 [facility]entonJuuzsprNZMHVXSCMU1752-27-10 05:33:00 Test Item Value Reference Range Interpretation Comments Platelet (test code = Platelet) 233 033-450 [facility]entonYrlhaxvTLTCEKKINS6261-35-41 05:33:00 Test Item Value Reference Range Interpretation Comments MPV (test code = MPV) 7.1 7.4-10.4 [facility]entonZvrrjcuOSTGVLFVOV2918-96-45 05:33:00 Test Item Value Reference Range Interpretation Comments PT (test code = PT) 11.5 s 12.0-14.7 [facility]entonPqqvnboLTBVLPIHPF5782-28-54 05:33:00 Test Item Value Reference Range Interpretation Comments INR (test code = INR) 0.84 1 0.85-1.17 [facility]entonCkjbwmgCKJBTSNXTI4238-84-69 05:33:00 Test Item Value Reference Range Interpretation Comments PTT (test code = PTT) 27.7 s 22.9-35.8 [facility]entonNbipmpxIYMHQGCVRU4177-97-98 05:33:00 Test Item Value Reference Range Interpretation Comments Segs (test code = Segs) 80.1 45.0-75.0 [facility]entonDbpnvwnOBSWZXXZWS2491-14-41 05:33:00 Test Item Value Reference Range Interpretation Comments Lymphocytes (test code = Lymphocytes) 13.1 20.0-40.0 [facility]entonXkwzfafMTKYWZWHSB8871-77-68 05:33:00 Test Item Value Reference Range Interpretation Comments Monocytes (test code = Monocytes) 6.2 2.0-12.0 [facility]entonNtuyvvlKTCTUURCEN0559-25-23 05:33:00 Test Item Value Reference Range Interpretation Comments Basophils (test code = 0.6 See_Comment [Aut omated message] The Basophils) system which ge nerated this result tra nsmitted reference range : <=1.0. The reference r kendell was not used to int erpret this result as normal/abnormal . [facility]entonQylfynvYZYADCJUJD5885-26-72 05:33:00 Test Item Value Reference Range Interpretation Comments Neutrophils # (test code = Neutrophils 9.2 1.5-8.1 #) [facility]entonOfrgfknXQBLTPKCSE7838-83-96 05:33:00 Test Item Value Reference Range Interpretation Comments Lymphocytes # (test code = Lymphocytes 1.5 1.0-5.5 #) [facility]entonGiuvibmEPYIDROEKB8035-75-17 05:33:00 Test Item Value Reference Range Interpretation Comments Monocytes # (test code 0.7 See_Comment [Aut omated message] The = Monocytes #) system which generated this result tra nsmitted reference range : <=0.8. The reference r kendell was not used to int erpret this result as normal/abnormal . [facility]entonXjfzefySFFNWILBDU3101-81-40 05:33:00 Test Item Value Reference Range Interpretation Comments Basophils # (test code 0.1 See_Comment [Aut omated message] The = Basophils #) system which generated this result tra nsmitted reference range : <=0.2. The reference r kendell was not used to int erpret this result as normal/abnormal . [facility]2019-09-25 17:19:00 Test Item Value Reference Range Interpretation Comments Glucose Lvl (test code = Glucose Lvl) 84 70-99 [facility]2019-09-25 17:19:00 Test Item Value Reference Range Interpretation Comments BUN (test code = BUN) 30 7-22 [facility]2019-09-25 17:19:00 Test Item Value Reference Range Interpretation Comments Creatinine Lvl (test code = Creatinine 1.34 0.50-1.40 Lvl) [facility]2019-09-25 17:19:00 Test Item Value Reference Range Interpretation Comments Sodium Lvl (test code = Sodium Lvl) 138 135-145 [facility]2019-09-25 17:19:00 Test Item Value Reference Range Interpretation Comments Potassium Lvl (test code = Potassium 4.1 3.5-5.1 Lvl) [facility]2019-09-25 17:19:00 Test Item Value Reference Range Interpretation Comments Chloride Lvl (test code = Chloride Lvl) 103 95-109 [facility]2019-09-25 17:19:00 Test Item Value Reference Range Interpretation Comments CO2 (test code = CO2) 28 24-32 [facility]2019-09-25 17:19:00 Test Item Value Reference Range Interpretation Comments Calcium Lvl (test code = Calcium Lvl) 8.9 8.5-10.5 [facility]2019-09-25 17:19:00 Test Item Value Reference Range Interpretation Comments AGAP (test code = AGAP) 11.1 10.0-20.0 [facility]2019-09-25 17:19:00 Test Item Value Reference Range Interpretation Comments B/C Ratio (test code = B/C Ratio) 22 1 6-25 [facility]2019-09-25 17:19:00 Test Item Value Reference Range Interpretation Comments eGFR (test code = eGFR) 45 [facility]2019-09-25 17:19:00 Test Item Value Reference Range Interpretation Comments ALT (test code = ALT) 20 See_Comment [Auto mated message] The system which ge nerated this result transmit theodore reference range : <=65. The reference range was not used to interpr et this result as david l/abnormal. [facility]2019-09-25 17:19:00 Test Item Value Reference Range Interpretation Comments Albumin Lvl (test code = Albumin Lvl) 3.6 3.5-5.0 [facility]2019-09-25 17:19:00 Test Item Value Reference Range Interpretation Comments Alk Phos (test code = Alk Phos) 83 39-136 [facility] CenterThirdSpaceLearningONSLOW MEMORIAL [id number] 17:19:00 Test Item Value Reference Range Interpretation Comments Bili Total (test code = Bili Total) 0.6 0.2-1.3 [facility]2019-09-25 17:19:00 Test Item Value Reference Range Interpretation Comments Total Protein (test code = Total 6.3 6.4-8.4 Protein) [facility]2019-09-25 17:19:00 Test Item Value Reference Range Interpretation Comments AST (test code = AST) 20 See_Comment [Auto mated message] The system which ge nerated this result transmit theodore reference range : <=37. The reference range was not used to interpr et this result as david l/abnormal. [facility] [id number] 17:19:00 Test Item Value Reference Range Interpretation Comments Globulin (test code = Globulin) 2.7 2.7-4.2 [facility] [employer] [id number] 17:19:00 Test Item Value Reference Range Interpretation Comments A/G Ratio (test code = A/G Ratio) 1.3 1 0.7-1.6 [facility] [employer] [id number] 15:26:00 Test Item Value Reference Range Interpretation Comments ABO/Rh (test code = ABO/Rh) O NEG [facility] [employer] [id number] 15:26:00 Test Item Value Reference Range Interpretation Comments Antibody Scrn (test Negative (08/03/19 code = Antibody Scrn) 10:26 AM) [facility] [id number] 15:26:00 Test Item Value Reference Range Interpretation Comments Glucose Lvl (test code = Glucose Lvl) 84 70-99 [facility] [employer] [id number] 15:26:00 Test Item Value Reference Range Interpretation Comments BUN (test code = BUN) 30 7-22 [facility] [id number] 15:26:00 Test Item Value Reference Range Interpretation Comments Creatinine Lvl (test code = Creatinine 1.33 0.50-1.40 Lvl) [facility]2019-09-25 15:26:00 Test Item Value Reference Range Interpretation Comments Sodium Lvl (test code = Sodium Lvl) 135 135-145 [facility]2019-09-25 15:26:00 Test Item Value Reference Range Interpretation Comments Potassium Lvl (test code = Potassium 5.0 3.5-5.1 Lvl) [facility]2019-09-25 15:26:00 Test Item Value Reference Range Interpretation Comments Chloride Lvl (test code = Chloride Lvl) 102 95-109 [facility]2019-09-25 15:26:00 Test Item Value Reference Range Interpretation Comments CO2 (test code = CO2) 26 24-32 [facility]2019-09-25 15:26:00 Test Item Value Reference Range Interpretation Comments Calcium Lvl (test code = Calcium Lvl) 8.9 8.5-10.5 [facility]2019-09-25 15:26:00 Test Item Value Reference Range Interpretation Comments AGAP (test code = AGAP) 12.0 10.0-20.0 [facility]2019-09-25 15:26:00 Test Item Value Reference Range Interpretation Comments B/C Ratio (test code = B/C Ratio) 23 1 6-25 [facility]2019-09-25 15:26:00 Test Item Value Reference Range Interpretation Comments eGFR (test code = eGFR) 45 [facility]2019-09-25 15:26:00 Test Item Value Reference Range Interpretation Comments ALT (test code = ALT) 23 See_Comment [Auto mated message] The system which ge nerated this result transmit theodore reference range : <=65. The reference range was not used to interpr et this result as david l/abnormal. [facility]2019-09-25 15:26:00 Test Item Value Reference Range Interpretation Comments Albumin Lvl (test code = Albumin Lvl) 4.0 3.5-5.0 [facility]2019-09-25 15:26:00 Test Item Value Reference Range Interpretation Comments Alk Phos (test code = Alk Phos) 92 39-136 [facility]2019-09-25 15:26:00 Test Item Value Reference Range Interpretation Comments Bili Total (test code = Bili Total) 0.7 0.2-1.3 [facility]2019-09-25 15:26:00 Test Item Value Reference Range Interpretation Comments Total Protein (test code = Total 6.8 6.4-8.4 Protein) [facility]2019-09-25 15:26:00 Test Item Value Reference Range Interpretation Comments AST (test code = AST) 30 See_Comment [Auto mated message] The system which ge nerated this result transmit theodore reference range : <=37. The reference range was not used to interpr et this result as david l/abnormal. [facility]2019-09-25 15:26:00 Test Item Value Reference Range Interpretation Comments Globulin (test code = Globulin) 2.8 2.7-4.2 [facility]2019-09-25 15:26:00 Test Item Value Reference Range Interpretation Comments A/G Ratio (test code = A/G Ratio) 1.4 1 0.7-1.6 [facility]entonHdhdloaCMEDOWKGOZ6771-08-47 15:26:00 Test Item Value Reference Range Interpretation Comments WBC (test code = WBC) 4.0 3.7-10.4 [facility]entonAbnogqoUMSCWXBYVH7412-32-51 15:26:00 Test Item Value Reference Range Interpretation Comments RBC (test code = RBC) 3.67 4.20-5.40 [facility]entonBcujrpvPMKYQLPTFI2541-20-97 15:26:00 Test Item Value Reference Range Interpretation Comments Hgb (test code = Hgb) 12.1 12.0-16.0 [facility]entonRabidreWCCUSWJBIU2220-06-39 15:26:00 Test Item Value Reference Range Interpretation Comments Hct (test code = Hct) 35.1 36.0-48.0 [facility]entonStttzqgLONIPVZDUK0835-67-26 15:26:00 Test Item Value Reference Range Interpretation Comments MCV (test code = MCV) 95.5 80.0-98.0 [facility]entonKpvsaxgTUWRVBRVCD7152-39-68 15:26:00 Test Item Value Reference Range Interpretation Comments MCH (test code = MCH) 33.1 pg 27.0-31.0 [facility]entonWvixgsjWLDEBCWYJJ5521-71-42 15:26:00 Test Item Value Reference Range Interpretation Comments MCHC (test code = MCHC) 34.6 32.0-36.0 [facility]entonUqnpnxyUMRWVZINJE3456-44-91 15:26:00 Test Item Value Reference Range Interpretation Comments RDW (test code = RDW) 12.5 11.5-14.5 [facility]entonWmefjyrDWNEVRWYMS4797-73-48 15:26:00 Test Item Value Reference Range Interpretation Comments Platelet (test code = Platelet) 179 133-450 [facility]entonMyqobbmPJHNHACSXA2263-48-86 15:26:00 Test Item Value Reference Range Interpretation Comments MPV (test code = MPV) 7.4 7.4-10.4 [facility]entonOeanqavBGBVDUNHVU6753-50-67 15:26:00 Test Item Value Reference Range Interpretation Comments PT (test code = PT) 12.6 s 12.0-14.7 [facility]entonLaoggwrOKSZGTKOMZ8746-01-95 15:26:00 Test Item Value Reference Range Interpretation Comments INR (test code = INR) 0.96 1 0.85-1.17 [facility]entonIqvvhpfYHADZOZIQI6129-42-51 15:26:00 Test Item Value Reference Range Interpretation Comments PTT (test code = PTT) 32.8 s 22.9-35.8 [facility]entonNzimrdlYKOFZSZMVJ1193-50-93 15:26:00 Test Item Value Reference Range Interpretation Comments Segs (test code = Segs) 39.7 45.0-75.0 [facility]entonQcphkhlAVXXXRZVRR3530-67-06 15:26:00 Test Item Value Reference Range Interpretation Comments Lymphocytes (test code = Lymphocytes) 44.0 20.0-40.0 [facility]entonVsxtnotGXLQWDQWJL3309-03-86 15:26:00 Test Item Value Reference Range Interpretation Comments Monocytes (test code = Monocytes) 8.8 2.0-12.0 [facility]entonThobptoXHCMAMSSWU2484-61-35 15:26:00 Test Item Value Reference Range Interpretation Comments Eosinophils (test code = 6.4 See_Comment [A utomated message] The Eosinophils) system which ge nerated this result tra nsmitted reference range : <=4.0. The reference r kendell was not used to int erpret this result as normal/abnormal . [facility]entonYpbwiljVCEQRVEZWA0095-23-75 15:26:00 Test Item Value Reference Range Interpretation Comments Basophils (test code = 1.1 See_Comment [Aut omated message] The Basophils) system which ge nerated this result tra nsmitted reference range : <=1.0. The reference r kendell was not used to int erpret this result as normal/abnormal . [facility]entonRtromolZMWFPJQNQL4261-90-50 15:26:00 Test Item Value Reference Range Interpretation Comments Neutrophils # (test code = Neutrophils 1.6 1.5-8.1 #) [facility]entonUfgcknnWWPILAONLE1937-40-69 15:26:00 Test Item Value Reference Range Interpretation Comments Lymphocytes # (test code = Lymphocytes 1.8 1.0-5.5 #) [facility]entonUhqyzgoIEXTDLENGN9336-90-14 15:26:00 Test Item Value Reference Range Interpretation Comments Monocytes # (test code 0.4 See_Comment [Aut omated message] The = Monocytes #) system which generated this result tra nsmitted reference range : <=0.8. The reference r kendell was not used to int erpret this result as normal/abnormal . [facility]entonUfwtaipZXYYPZMNJP3314-89-83 15:26:00 Test Item Value Reference Range Interpretation Comments Eosinophils # (test code 0.3 See_Comment [A utomated message] The = Eosinophils #) system whic h generated this result tra nsmitted reference range : <=0.5. The reference r kendell was not used to int erpret this result as normal/abnormal . [facility] [id number] 15:26:00 Test Item Value Reference Range Interpretation Comments Hgb A1C (test code = Hgb A1C) 5.1 [facility]
[2023-01-28 05:53] LABS: Arterial Blood Carboxyhemoglob 1.8 % (0-1.5); Blood Gas Oxyhemoglobin 91.5 % (94-97); Blood O2 Saturation 94.8 % (92-98.5)
[2023-01-28] MEDS ORDERED: NALOXONE 0.4 MG/ML VIAL ONE (06:00)
[2023-01-28 06:42] LABS: Absolute Lymphocytes (CBC) 1.3 K/uL (0.7-4.9); Hematocrit 37.8 % (36.0-45.0); Lymphocytes % 19.6 % (15.3-44.8); MCV 96.1 fL (80-100); MPV 7.1 fL (7.6-11.3); RBC Red Blood Cell Count 3.93 M/uL (3.86-4.86)
[2023-01-28 06:59] LABS: Potassium 4.1 mEq/L (3.5-5.1); Troponin High Sensitivity 18.3 pg/mL (<58.9)
--- NOTE | 2023-01-28 07:28 | RAD REPORT ---
EXAM DESCRIPTION: CT - Head Brain Wo Cont - 01/28/2023 7:18 am CLINICAL HISTORY: Alteration of awareness/confusion COMPARISON: 2021 TECHNIQUE: Computed axial tomography of the head was obtained. IV contrast was not requested. All CT scans are performed using dose optimization technique as appropriate and may include automated exposure control or mA/KV adjustment according to patient size. FINDINGS: Left occipital craniotomy with left cerebellar encephalomalacia. No acute intracranial bleed The ventricles are normal in caliber No extra-axial fluid collection is noted. Fluid within the sinuses/ mastoids is not seen. IMPRESSION: No acute intracranial abnormality is seen If patient's symptoms persist MRI of the brain would be recommended
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
[2023-01-28 08:18] VITALS: TEMP 98.3
[2023-01-28 08:33] VITALS: BP 143/72; O2SAT 96
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
--- NOTE | 2023-01-28 17:21 | EKG ---
Test Date: 2023-01-28 Test Time: 06:06:29 Health Data Analyst: REGGIE MEASUREMENT RESULTS: Intervals: Rate: 65 WV: 170 QRSD: 108 QT: 414 QTc: 430 [place]: P: 59 WV: 170 QRS: 54 T: 66 INTERPRETIVE STATEMENTS: Normal sinus rhythm Nonspecific ST abnormality Abnormal ECG Compared to ECG 08/17/2022 22:12:04 ST (T wave) deviation now present Electronically Signed On 01-28-23 17:20:18 CDT by Ming Lara
--- NOTE | 2023-01-28 17:21 | EKG ---
Test Date: 2023-01-28 Test Time: 06:08:28 Glove Turner And Former: REGGIE MEASUREMENT RESULTS: Intervals: Rate: 66 VA: 168 QRSD: 92 QT: 412 QTc: 431 [place]: P: 71 VA: 168 QRS: 54 T: 74 INTERPRETIVE STATEMENTS: Normal sinus rhythm Normal ECG Compared to ECG 01/28/2023 06:06:29 ST (T wave) deviation no longer present Electronically Signed On 01-28-23 17:20:15 CDT by Ming Lara
== END 2023-01-28 08:09 | disposition home or self-care (01) ==
LOC: ER 05:33
DX: R40.4 Transient alteration of awareness (principal); R05.9 Cough, unspecified; I10 Essential (primary) hypertension; F32.A Depression, unspecified; Z72.0 Tobacco use; Z88.8 Allergy status to other drugs, medicaments and biological substances
CPT/HCPCS: 93005 ×2; 85025; 80048; 36415; 84484; 70450; 71045; 82805; J2310

== ENCOUNTER 2023-05-07 10:54 | Day surgery (SDC) | payer OTHER ==
[2023-05-06 16:34] LABS: Potassium 3.9 mEq/L (3.5-5.1)
[2023-05-07] MEDS ORDERED: Ringers Lactate 1,000 ML IV ONE (11:22)
[2023-05-07] MEDS ORDERED: propofoL 200 MG/20 ML VIAL IV ONE (12:50)
[2023-05-07 14:08] VITALS: O2SAT 100
[2023-05-07 14:09] VITALS: BP 121/60; TEMP 97
== END 2023-05-07 14:05 | disposition home or self-care (01) ==
LOC: OR 10:54
PROVIDERS: ATTEND Surgery
PROC: 0DBN8ZX Excision of Sigmoid Colon, Via Natural or Artificial Opening Endoscopic, Diagnostic (ICD-10-PCS; 2023-05-07)
PROC: 0DBH8ZX Excision of Cecum, Via Natural or Artificial Opening Endoscopic, Diagnostic (ICD-10-PCS; principal; 2023-05-07 12:45)
DX: Z12.11 Encounter for screening for malignant neoplasm of colon (principal); K57.30 Diverticulosis of large intestine without perforation or abscess without bleeding; K64.8 Other hemorrhoids; D12.0 Benign neoplasm of cecum; D12.5 Benign neoplasm of sigmoid colon
CPT/HCPCS: 80048; 36415; 88305; 45380; J2704; J7120

== ENCOUNTER 2023-07-08 20:27 | Emergency (ER) | payer OTHER ==
--- OUTSIDE RECORDS SUMMARY | 2023-07-08 20:55 | XMS REPORT | Continuity of Care Document ---
:1965 Author Organization [facility] t Address [address] [place] [address] Care Team Providers Name Role Phone Gibran Owens Primary Care Physician GERALD MCKEON Attending Clinician Unavailable [email or web address] Attending Clinician Unavailable Isabel Snow MD Attending Clinician VIDAL GALE Attending Clinician Unavailable VIDAL GALE Attending Clinician Unavailable CY VELASQUEZ Attending Clinician Unavailable Isabel Snow Attending Clinician Bright Lazar Attending Clinician Kaylee Gaines Attending Clinician Harriet TAYLOR, Liza Lutz Attending Clinician Wilma Forde MD Attending Clinician Bright Lzaar NP Attending Clinician BRIGHT LAZAR Attending Clinician Unavailable Doctor Unassigned, [facility] Attending Clinician Unavailable STEPHANIA GARCIA Attending Clinician Unavailable JEFFERSON SIDHU Attending Clinician Unavailable Jefferson Sidhu Attending Clinician TRINITY DONOHUE Attending Clinician Unavailable Trinity Donohue DO Attending Clinician Trina Bazzi Attending Clinician JOSEPH BAZZI Attending Clinician Unavailable EMILY ZABALA Attending Clinician Unavailable Only, Ang Db Test Attending Clinician Unavailable Sandip Suarez Attending Clinician SANDIP RUIZ Attending Clinician Unavailable Pob, Adc Lab Main Attending Clinician Unavailable Beau Romero MD Attending Clinician BEAU ROMERO Attending Clinician Unavailable Tae Salazar MD Attending Clinician Fartun Valdez Attending Clinician [phone] Goyo Clark MD Attending Clinician GOYO CLARK Attending Clinician Unavailable GOYO CLARK Attending Clinician Unavailable CECELIA SIMMONS Attending Clinician Unavailable Chelsey Clay RN Attending Clinician Unavailable Steven Maloney MD Attending Clinician Renzo Thomson MD Attending Clinician LIZA LARIOS Attending Clinician Unavailable Christian Rutherford RN Attending Clinician Unavailable BALJIT COPELAND Attending Clinician Unavailable Baljit Copeland DO Attending Clinician KRISTINA SUAREZ Attending Clinician Unavailable Kristina Suarez Attending Clinician ElviLashawn benavides Attending Clinician LASHAWN BOLES Attending Clinician Unavailable Lab, Adc Fam Pob I Attending Clinician Unavailable OmTona Anderson Attending Clinician Billy Zheng Attending Clinician TONA MATTSON Attending Clinician Unavailable Annika Sandoval PA-C Attending Clinician ANNIKA SANDOVAL Attending Clinician Unavailable Nedra Calix Attending Clinician Kelli Smith Attending Clinician KELLI SMITH Attending Clinician Unavailable Deidre Beck Attending Clinician DEIDRE BECK Attending Clinician Unavailable Isabell Diaz RN Attending Clinician Unavailable César Pierre Attending Clinician Renny Luna Attending Clinician [email or web address]_S Admitting Clinician Unavailable ASHLEY GUTIERREZ Admitting Clinician Unavailable Ashley Gutierrez Admitting Clinician TRINITY DONOHUE Admitting Clinician Unavailable Liza Larios MD Admitting Clinician LIZA LARIOS Admitting Clinician Unavailable WANDA CRESPO Admitting Clinician Unavailable Wanda Crespo Admitting Clinician Margarito Onofre Admitting Clinician MARGARITO ONOFRE Admitting Clinician Unavailable Payers Payer Name Policy Type Policy Number Effective Date Expiration Date Liza anthony [facility] WELLMED [id number] 2019 2024 00:00:00 00:00:00 [employer] - [id number] 2020 [facility] 00:00:00 WEST (MEDICARE REPLACEMENT/ADVANTA GE - HMO) [place] [id number] (MEDICAID) [facility] - MEDICARE [id number] COMPLETE (MEDICARE REPLACEMENT HMO) WELLMED/[facility] DUAL [id number] 2021 COMP HMO D SNP 00:00:00 [place]ICA[place] [id number] 2006 00:00:00 Problems Condition Condition Condition Status Onset Resolution Last Treating Co mments Source Name Details Category Date Date Treatment Clinician Date Vaginal Vaginal Disease Active Univers discharge discharge 1-20 ity of 00:00: [place] [address] [place] [address] Branch Mass of Mass of Disease Active Univers breast, breast, 1-20 ity of unspecifie unspecifie [place] Medical laterality laterality Br anch Other Other Disease Active Univers signs and signs and 1-20 ity of symptoms symptoms 00:00: [place] in breast in breast 00 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 0-19 He alth n n 00:00: associated associated 00 with with depression depression METABOLIC METABOLIC Diagnosis Active 2021-112022-09-01 Memoria ENCEPHALOP ENCEPHALOP 0-11 07:25:00 l ATHY ATHY 16:45: Mohan Active [address] STROKE STROKE Diagnosis Active 2021-112022-08-19 Me moria LIKE LIKE 0-11 18:25:00 l SYMPTOMS SYMPTOMS 00:00: Salvatore n Active 08/19/2022 [facility] PRES PRES Disease Active [facility] (posterior (posterior 9-19 He alth 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 athy syndrome) syndrome) History of History of Disease Active U T resection resection 07-28 of 00:00: meningioma meningioma 00 Seizure Seizure Disease Active AR 07-28 Health 00:00: 00 STROKE STROKE Diagnosis Active 2022-02-03 Me moria LIKE LIKE 02-02 11:14:00 l Active 00:00: Mohan 02/02/[address] [place] [address] Mohan R41.89 - R41.89 - Diagnosis Active 2021-08-09 Memoria OT OTH 07-29 10:18:00 l SYMPTOMS SYMPTOMS 00:01: [...] - Diagnosis Active 2019-112020-10-30 Memoria CEREBRAL CEREBRAL 12-28 11:58:00 l INFARCTION INFARCTION 00:01: Brian brumfieldann , , 00 UNSPECIFI UNSPECIFI Active 10/27/2020 ANNE MARIE Levine ISCHEMIC ISCHEMIC Diagnosis Active 2019-112020-10-16 Memoria CVA CVA Active 11-27 21:55:00 l 09/27/2020 00:00: Salvatore HEALY [address] SEIZURE SEIZURE Diagnosis Active 2019-112020-09-28 Memoria Active 11-26 13:11:00 l 09/26/2020 00:00: Salvatore mazariegos [place] [address] Mohan R92.8 - R92.8 - Diagnosis Active 2019-112020-11-02 Memoria OT ABN OTH ABN 0-01 15:34:00 l AND AND 00:01: [place] INCONCLUSI INCONCLUSI 00 VE FINDI VE FINDI Active 08/09/2020 [facility] [place] Hypertroph Hypertroph Disease Active M ethodi y of bone, y of bone, 8-13 st right right 00:00: [facility]osp[facility] humerus humerus 00 l WEAKNESS WEAKNESS Diagnosis Active 2020-05-03 Memoria Active 04-24 17:07:00 l 04/24/2020 21:30: Salvatore mazariegos [facility] 00 Mohan CONVULSION Diagnosis Active 2020-03-19 Memoria S CONVULSION - 00:58:00 l S Active 00:00: Mohan 03/19/[address] [place] [address] VASOGENIC VASOGENIC Diagnosis Active 2020-03-27 Memoria EDEMA EDEMA - 21:50:00 l NSTEMI NSTEMI 00:00: [place] Active 00 03/18/2020 [facility] SUPRAVALVU SUPRAVALV Diagnosis Active 2019-08-05 Memoria LAR AORTIC ULAR 07-26 15:44:00 l STENOSIS AORTIC 00:00: Mohan STENOSIS 00 Active 07/26/2019 [facility] I71.0 - I71.0 - Diagnosis Active 2019-06-20 Memoria DISSECTION DISSECTION 06-13 14:11:00 l OF AORTA OF AORTA 00:01: Salvatore mazariegos Active 00 06/13/2019 [facility] [place] Screening Screening Disease Active Uni vers for [...] pain pain 7-14 ity of 00:00: [place] 00 Medical Branch Elevated Elevated Disease Active Overview: [...] 2-26 ity of nodule nodule 00:00: [place] [facility] HLD HLD Disease Active Univers (hyperlipi (hyperlipi 2-26 it y of demia) demia) 00:00: [place] [facility] 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 ANNOTATE. 00 note Medi dyan might be Branch different from the original. S/p overdose on Ambien, Skelaxin, Atenolol Unspecifie Unspecifi Problem 2022-02-10 Memoria d speech ed speech 07:07:04 l disturbanc disturbanc Brian lockett es es 02/10/2022 [facility] Other Other Problem 2022-02-10 Memor ia psychoacti psychoacti 07:07:04 l ve ve [place] substance substance use, use, unspecifie unspecifie d with d with intoxicati intoxicati on, on, unspecifie unspecifie d d 02/10/2022 [facility] Hypothyroi Hypothyro Problem 2022-02-10 Memoria dism, idism, 07:07:04 l unspecifie unspecifie Brian lockett d d 02/10/2022 [facility] Nicotine Nicotine Problem 2022-02-10 Memoria dependence dependence 07:07:04 l , , [place] cigarettes cigarettes , , uncomplica uncomplica theodore [...] ve chronic osmany 07:07:04 l kidney chronic [place] disease kidney with stage disease 1 through with stage stage 4 1 through chronic stage 4 kidney chronic disease, kidney or disease, unspecifie or d chronic unspecifie kidney d chronic disease kidney disease 02/10/2022 [facility] Chronic Chronic Problem 2022-02-10 M emoria kidney kidney 07:07:04 l disease, disease, Salvatore [...] to status to 07:07:04 l other other [place] drugs, drugs, medicament medicament s and s and biological biological substances substances status status 02/10/2022 [facility] Allergy Allergy Problem 2022-02-10 Me moria status to status to 07:07:04 l analgesic analgesic Herm gabrile agent agent status status 02/10/2022 [facility] Acquired Acquired Problem 2022-02-10 Memoria absence of absence of 07:07:04 l other other Mohan specified specified parts of parts of digestive digestive tract tract 02/10/2022 [facility] Presence Presence Problem 2022-02-10 Memoria of of 07:07:04 l unspecifie unspecifie He rmann d d artificial artificial knee joint knee joint [facility] Presence Presence Problem 2022-02-10 Memoria of of 07:07:04 l unspecifie unspecifie He rmann d d artificial artificial shoulder shoulder joint joint 02/10/2022 [facility] Family Family Problem 2022-02-10 Mj chadwick history of history of 07:07:04 l ischemic ischemic Salvatore n heart heart disease disease and other and other diseases diseases of the of the groundman/lineman groundman/lineman y system y system 02/10/2022 [facility] Family Family Problem 2022-02-10 Mj chadwick history of history of 07:07:04 l other other [place] diseases diseases of the of the digestive digestive system system 02/10/2022 [facility] Family Family Problem 2022-02-10 Mj chadwick history of history of 07:07:04 l diseases diseases Salvatore n of the of the blood and blood and blood-form blood-form ing organs ing organs and and certain certain disorders disorders involving involving the immune the immune mechanism mechanism 02/10/2022 [facility] Family Family Problem 2022-02-10 Mj chadwick history of history of 07:07:04 l stroke stroke Mohan 02/10/2022 [facility] Family Problem 2022-02-10 Mj chadwick history of history of 07:07:04 l malignant malignant Herm gabriel neoplasm neoplasm of breast of breast 02/10/2022 [facility] Unemployme Unemploym Problem 2022-02-10 Memoria nt, ent, 07:07:04 l unspecifie unspecifie He rmann d d 02/10/2022 [facility] Degenerati Degenerat Problem Resolve 2022-02-10 Memoria on of ion of d 07:07:04 l lumbar lumbar Mohan interverte interverte bral disc bral disc (disorder) (disorder) Resolved Problem 02/10/2022 [facility], Zachariah Johnston, Zachariah Keenan Kidney Kidney Problem Resolve 2022-02-10 Mem oria disease disease d 07:07:04 l (disorder) (disorder) He rmann Resolved Problem 02/10/2022 [facility], [place],[facility] ANNE MARIE [place], ANNE MARIE [place],[facility] ANNE MARIE Levine Rheumatoid Rheumatoi Problem Resolve 2022-02-10 Memoria arthritis d d 07:07:04 l (disorder) arthritis Her bailey (disorder) Resolved Problem 02/10/2022 [facility], [place],[facility] ANNE MARIE [place], ANNE MARIE [place],[facility] ANNE MARIE Levine Impaired Impaired Problem Active 2022-02-10 Memoria skin skin 07:07:04 l integrity integrity Herm gabriel (finding) (finding) Active Problem 02/10/2022 [facility], [place],[facility] ANNE MARIE [place], ANNE MARIE [place],[facility] ANNE MARIE Levine Depressive Problem Resolve 2022-02-10 Memoria disorder Depressive d 07:07:04 l (disorder) disorder Herm gabriel (disorder) Resolved Problem 02/10/2022 [facility], [place],[facility] ANNE MARIE [place], ANNE MARIE [place],[facility] ANNE MARIE Levine Hypothyroi Hypothyro Problem Resolve 2022-02-10 Memoria dism idism d 07:07:04 l (disorder) (disorder) He rmann Resolved Problem 02/10/2022 [facility], [place],[facility] ANNE MARIE [place] Anxiety Anxiety Problem Active 2023-01-22 Me moria (finding) (finding) 05:42:23 l Active [place] Problem 01/22/2023 [facility], [place],[facility] ANNE MARIE [place], ANNE MARIE [place],[facility] ANNE MARIE Levine,[facility] Chronic Chronic Problem Active 2023-01-22 Me moria pain pain 05:42:23 l (finding) (finding) Herm gabriel Active Problem 01/22/2023 [facility] Hypertensi Hypertens Problem Active 2023-01-22 Memoria ve osmany 05:42:23 l disorder, disorder, Herm gabriel systemic systemic arterial arterial (disorder) (disorder) Active Problem 01/22/2023 [facility], [place],[facility] ANNE MARIE [place], ANNE MARIE [place],[facility] ANNE MARIE Levine,[facility] Hypoglycem Hypoglyce Problem Active 2023-01-22 Memoria ia katty 05:42:23 l (disorder) (disorder) He rmann Active Problem 01/22/2023 [facility] Impaired Impaired Problem Active 2023-01-22 Memoria mobility mobility 05:42:23 l (finding) (finding) Herm gabriel Active Problem 01/22/2023 [facility], [place],[facility] ANNE MARIE [place], ANNE MARIE [place],[facility] ANNE MARIE Levine,[facility] Pain Pain Problem Active 2023-01-22 Memor ia (finding) (finding) 05:42:23 l Active Mohan Problem 01/22/2023 [facility], [place],[facility] ANNE MARIE [place], ANNE MARIE [place],[facility] ANNE MARIE Levine,[facility] I67.83 - I67.83 - Diagnosis Active 2023-01-19 Memoria POSTERIOR POSTERIOR 12:50:00 l REVERSIBLE REVERSIBLE He rmann ENCEPHALO ENCEPHALO Active [facility] N64.59 - N64.59 - Diagnosis Active 2023-01-07 Memoria OTHER OTHER 14:14:00 l SIGNS AND SIGNS AND Herm gabriel SYMPTOMS SYMPTOMS IN BR IN BR Active [facility] E03.9 - E03.9 - Diagnosis Active 2023-01-06 Memoria HYPOTHYROI HYPOTHYROI 09:38:00 l DISM, DISM, Mohan UNSPECIFIE UNSPECIFIE D D Active [facility] I69.30 - I69.30 - Diagnosis Active 2023-06-11 Memoria UNSPECIFIE UNSPECIFIE 11:45:00 l D SEQUELAE D SEQUELAE He rmann OF CEREBR OF CEREBR Active [facility] Hematochez Problem Resolve 2022-02-10 2022-02-10 Memoria ia Hematochez d 08-08 07:07:04 07:07:04 l (finding) ia 00:00: [place] (finding) 00 Resolved 08/08/2011 Problem 02/10/2022 [facility], Zachariah Johnston, ANNE MARIE [place],Zachariah H ANNE MARIE Levine History of Past Illness Condition Condition Condition Status Onset Resolution Last Treating Co mments Source Name Details Category Date Date Treatment Clinician Date Anxiety Anxiety Diagnosis 2021-112022-08-24 2022-08-24 Memoria disorder disorder 0-12 22:55:22 22:55:22 l (disorder) (disorder) 00:12: He cathryn 08/20/2022 00 Diagnosis 08/24/2022 [facility] Essential Essential Diagnosis 2021-112022-08-24 2022-08-24 Memoria hypertensi hypertensi 0-12 22:55:22 22:55:22 l on on 00:12: Mohan (disorder) (disorder) 00 08/20/2022 Diagnosis 08/24/2022 [facility] Weakness Weakness Problem 2022-02-10 2022-02-10 Memoria 02/04/202202-04 07:07:04 07:07:04 l 01:09: Salvatore mazariegos 2 00 [place] Opioid Opioid Problem 2022-02-10 2022-02-10 Memoria abuse, abuse, 02-04 07:07:04 07:07:04 l uncomplica uncomplica 01:09: Brian jaimes theodore 00 02/04/2022 2 [facility] Other Other Problem 2022-02-10 2022-02-10 M emoria visual visual 02-04 07:07:04 07:07:04 l disturbanc disturbanc 01:09: Brian lockett es es 00 02/04/2022 2 [facility] Acute Acute Problem 2020-04-27 2020-04-27 M emoria kidney kidney 04-25 21:05:58 21:05:58 l failure, failure, 17:00: Salvatore mazariegos unspecifie unspecifie 00 d d 04/25/2020 0 [facility] Dehydratio Dehydrati Problem 2020-04-27 2020-04-27 Memoria n on 04-25 21:05:58 21:05:58 l 04/25/2020 17:00: Salvatore n 04/27/2020 00 [facility] Allergies, Adverse Reactions, Alerts Allergy Allergy Status Severity Reaction(s) Onset Inactive Treating Comm ents Source Name Type Date Date Clinician Nsaids Allergy Active [place] to 12-30 Health substan 00:00: e 00 MORPHINE DRUG Active Unknown-Cmnt [...] Very st adverse 00:00: angry Hospita reaction l s to drug Duloxeti Propensi Active Swelling Univ ers ne ty to 2-24 ity of adverse 00:00: [place] reaction Medical s Branch Quetiapi Propensi Active [facility] Univ ers ne ty to 2-24 ity of Fumarate adverse 00:00: [place] reaction Medical s Branch Bupropio Propensi Active [facility]elling Univ ers n Hcl ty to 2-24 ity of adverse 00:00: [place] reaction Medical s Branch DULOXETI DRUG Active [facility] Univer s NE INGREDI 2-24 ity of 00:00: [place] [facility] QUETIAPI DRUG Active Swelling Univer s NE INGREDI 2-24 ity of FUMARATE 00:00: [place] [facility] BUPROPIO DRUG Active Swelling Univer s N HCL INGREDI 2-24 ity of 00:00: [place] [facility] Seroquel Seroquel Active Memori a l Mohan Wellbutr Wellbutr Active Memori a in in l Mohan BuSpar BuSpar Active Memoria l Mohan Cymbalta Cymbalta Active Memori a l Mohan NSAIDs NSAIDs Active Memoria l [place] Social History Social Habit Start Date Stop Date Quantity Comments Source Gender identity 2022-01-07 Identifies as Method ist 21:51:25 female gender Hospital (finding) Sexual orientation 2022-01-07 Heterosexual Meth odist 21:51:25 (finding) Hospital History of tobacco Cigarette Smoker [facility] [place] [facility] History [facility] o f Alcohol Frequency [facility] edical Branch History [facility] University o f Alcohol Std Drinks [place] [facility] History [facility] o f Alcohol Binge [facility] al Branch History of Social 2023-01-15 2023-01-[address] function 00:00:00 00:00:00 Hospital Exposure to 2022-12-20 2022-12-30 Not sure [facility] SARS-CoV-2 (event) 00:00:00 11:10:00 Tobacco use and 2022-07-28 2022-07-28 User of smokeless [facility] exposure 00:00:00 00:00:00 tobacco Alcohol intake 2020-12-14 2020-12-14 Ex-drinker Muslim 00:00:00 00:00:00 (finding) Hospital Cigarettes smoked 2020-12-11 2020-12-11 [facility] [place] current (pack per 00:00:00 00:00:00 Hospita l day) - Reported Cigarette 2020-12-11 2020-12-11 Muslim pack-years 00:00:00 00:00:00 Hospital Social History 2019-08-03 2019-08-[address] [facility] jordan 16:34:49 16:34:49 Alcohol Comment 2015-12-25 2015-12-25 Social Drinker Unive rsity of 00:00:00 00:00:00 [facility] Sex [birth year] At [birth year] LAYLA Michael kes 00:00:00 00:00:00 Medical Center Smoking Status Start Date Stop Date Source Tobacco smoking consumption [facility] unknown Smokes tobacco daily 2022-11-28 00:00:00 [facility] [place] ity of [facility] Tobacco smoking status [facility] [place] Occasional tobacco smoker 2022-07-28 00:00:00 [facility] Light tobacco smoker 2020-12-11 00:00:00 [facility] Medications Ordered Filled Start Stop Current [...] for Medical ORAL) Constipati Branch on. traZODONE 0 Yes 50mg Take 50 mg Un christie (DESYREL) 1-20 by mouth ity of 50 mg 09:40: at [place] tablet 21 bedtime. Medical Branch DOCUSATE Yes 1{tbl} Take 1 Tab U nivers CALCIUM 1-20 by mouth ity of (STOOL 09:40: as needed [place] SOFTENER 21 for Medical ORAL) Constipati Branch on. traZODONE 0 Yes 50mg Take 50 mg Un christie (DESYREL) 1-20 by mouth ity of 50 mg 09:40: at [place] tablet 21 bedtime. Medical Branch DOCUSATE Yes 1{tbl} Take 1 Tab U nivers CALCIUM 1-20 by mouth ity of (STOOL 09:40: as needed [place] SOFTENER 21 for Medical ORAL) Constipati Branch on. traZODONE 0 Yes 50mg Take 50 mg Un christie [...] for Medical ORAL) Constipati Branch on. traZODONE 0 Yes 50mg Take 50 mg Un christie (DESYREL) 1-20 by mouth ity of 50 mg 09:40: at [place] tablet 21 bedtime. Medical Branch DOCUSATE 0 Yes 1{tbl} Take 1 Tab U nivers CALCIUM 1-20 by mouth ity of (STOOL 09:40: as needed [place] SOFTENER 21 for Medical ORAL) Constipati Branch on. furosemide 0 Yes 20mg Take 20 mg U nivers 20 mg 1-20 by mouth ity of tablet 09:39: every [place] 23 morning Medical and Branch evening. pantoprazol 0 Yes 40mg Take 40 mg Univers e 40 mg EC 1-20 by mouth ity o f tablet 09:39: daily. [place] [address] Medical Branch citalopram 0 Yes 20mg Take 20 mg U nivers (CELEXA) 20 1-20 by mouth ity of mg tablet 09:39: daily. [place] [address] Medical Branch rOPINIRole 0 Yes 2mg Take 2 mg Un christie (REQUIP) 2 1-20 by mouth ity o f mg tablet 09:39: at [place] 23 bedtime. Medical Branch tiZANidine 0 Yes 2mg Take 2 mg Un christie (ZANAFLEX) 1-20 by mouth 2 ity of 2 mg 09:39: (two) [place] [facility] 23 times Medical daily as Branch needed for Muscle Spasms. aspirin 81 2022-0 Yes 81mg Take 81 mg U nivers mg EC 1-20 by mouth ity of tablet 09:39: daily. [place] [address] Medical Branch amLODIPine 0 Yes 5mg Take 5 mg Un christie 5 mg tablet 1-20 by mouth ity of 09:39: daily. [place] [address] Medical Branch magnesium 0 Yes Take by Unive rs oxide 400 1-20 mouth. ity of mg 09:39: [place] magnesium Medical Tab Branch biotin 1 mg 0 Yes Take by Uni vers Cap 1-20 mouth. ity of 09:39: [place] [address] Medical Branch furosemide 0 Yes 20mg Take 20 mg U nivers 20 mg 1-20 by mouth ity of tablet 09:39: every [place] 23 morning Medical and Branch evening. pantoprazol 2022-0 Yes 40mg Take 40 mg Univers e 40 mg EC 1-20 by mouth ity o f tablet 09:39: daily. [place] [address] Medical Branch citalopram 0 Yes 20mg Take 20 mg U nivers (CELEXA) 20 1-20 by mouth ity of mg tablet 09:39: daily. [place] [address] Medical Branch rOPINIRole 0 Yes 2mg Take 2 mg Un christie (REQUIP) 2 1-20 by mouth ity o f mg tablet 09:39: at [place] [address] bedtime. Medical Branch tiZANidine 2022-0 Yes 2mg Take 2 mg Un christie (ZANAFLEX) 1-20 by mouth 2 ity of 2 mg 09:39: (two) [place] capsule 23 times Medical daily as Branch needed for Muscle Spasms. aspirin 81 2022-0 Yes 81mg Take 81 mg U nivers mg EC 1-20 by mouth ity of tablet 09:39: daily. [place] [address] [facility] Branch amLODIPine 0 Yes 5mg Take 5 mg Un christie 5 mg tablet 1-20 by mouth ity of 09:39: daily. [place] [address] [facility] Branch magnesium 0 Yes Take by Unive rs oxide 400 1-20 mouth. ity of mg 09:39: [place] [address] Medical Tab Branch biotin 1 mg 0 Yes Take by Uni vers Cap 1-20 mouth. ity of 09:39: [place] [address] [facility] Branch furosemide 2022-0 Yes 20mg Take 20 mg U nivers 20 mg 1-20 by mouth ity of tablet 09:39: every [place] [address] morning Medical and Branch evening. pantoprazol 0 Yes 40mg Take 40 mg Univers e 40 mg EC 1-20 by mouth ity o f tablet 09:39: daily. [place] [address] [facility] Branch citalopram 0 Yes 20mg Take 20 mg U nivers (CELEXA) 20 1-20 by mouth ity of mg tablet 09:39: daily. [place] [address] [facility] Branch rOPINIRole 2022-0 Yes 2mg Take 2 mg Un christie (REQUIP) 2 1-20 by mouth ity o f mg tablet 09:39: at [place] [address] bedtime. Medical Branch tiZANidine 2022-0 Yes 2mg Take 2 mg Un christie (ZANAFLEX) 1-20 by mouth 2 ity of 2 mg 09:39: (two) [place] capsule 23 times Medical daily as Branch needed for Muscle Spasms. aspirin 81 2022-0 Yes 81mg Take 81 mg U nivers mg EC 1-20 by mouth ity of tablet 09:39: daily. [place] [address] [facility] Branch amLODIPine 2022-0 Yes 5mg Take 5 mg Un christie 5 mg tablet 1-20 by mouth ity of 09:39: daily. [place] [address] [facility] Branch magnesium 2022-0 Yes Take by Unive rs oxide 400 1-20 mouth. ity of mg 09:39: [place] [address] Medical Tab Branch biotin 1 mg 2022-0 Yes Take by Uni vers Cap 1-20 mouth. ity of 09:39: [place] [address] [facility] Branch furosemide 2022-0 Yes 20mg Take 20 mg U nivers 20 mg 1-20 by mouth ity of tablet 09:39: every [place] [address] morning Medical and Branch evening. pantoprazol 0 Yes 40mg Take 40 mg Univers e 40 mg EC 1-20 by mouth ity o f tablet 09:39: daily. [place] [address] Medical Branch citalopram 0 Yes 20mg Take 20 mg U nivers (CELEXA) 20 1-20 by mouth ity of mg tablet 09:39: daily. [place] [address] [facility] Branch rOPINIRole 0 Yes 2mg Take 2 mg Un christie (REQUIP) 2 1-20 by mouth ity o f mg tablet 09:39: at [place] [address] bedtime. Medical Branch tiZANidine 0 Yes 2mg Take 2 mg Un christie (ZANAFLEX) 1-20 by mouth 2 ity of 2 mg 09:39: (two) [place] capsule 23 times Medical daily as Branch needed for Muscle Spasms. aspirin 81 2022-0 Yes 81mg Take 81 mg U nivers mg EC 1-20 by mouth ity of tablet 09:39: daily. [place] [address] Medical Branch amLODIPine 2022-0 Yes 5mg Take 5 mg Un christie 5 mg tablet 1-20 by mouth ity of 09:39: daily. [place] [address] Medical Branch magnesium 2022-0 Yes Take by Unive rs oxide 400 1-20 mouth. ity of mg 09:39: [place] [address] Medical Tab Branch biotin 1 mg 2022-0 Yes Take by Uni vers Cap 1-20 mouth. ity of 09:39: [place] [address] [facility] Branch furosemide 2022-0 Yes 20mg Take 20 mg U nivers 20 mg 1-20 by mouth ity of tablet 09:39: every [place] [address] morning Medical and Branch evening. pantoprazol 2022-0 Yes 40mg Take 40 mg Univers e 40 mg EC 1-20 by mouth ity o f tablet 09:39: daily. [address] citalopram 2022-0 Yes 20mg Take 20 mg U nivers (CELEXA) 20 1-20 by mouth ity of mg tablet 09:39: daily. [address] rOPINIRole 2022-0 Yes 2mg Take 2 mg Un christie (REQUIP) 2 1-20 by mouth ity o f mg tablet 09:39: at [place] [address] bedtime. Medical Branch tiZANidine 2022-0 Yes 2mg Take 2 mg Un christie (ZANAFLEX) 1-20 by mouth 2 ity of 2 mg 09:39: (two) [facility] 23 times Medical daily as Branch needed for Muscle Spasms. aspirin 81 2022-0 Yes 81mg Take 81 mg U nivers mg EC 1-20 by mouth ity of tablet 09:39: daily. [address] amLODIPine 2022-0 Yes 5mg Take 5 mg Un christie 5 mg tablet 1-20 by mouth ity of 09:39: daily. [place] [address] Medical [place] magnesium 2022-0 Yes Take by Unive rs oxide 400 1-20 mouth. ity of mg 09:39: [place] [address] Medical [place] Branch biotin 1 mg 2022-0 Yes Take by Uni vers Cap 1-20 mouth. ity of 09:39: [place] [address] Medical [place] furosemide 2022-0 Yes 20mg Take 20 mg U nivers 20 mg 1-20 by mouth ity of tablet 09:39: every [place] [address] morning Medical and Branch evening. pantoprazol 2022-0 Yes 40mg Take 40 mg Univers e 40 mg EC 1-20 by mouth ity o f tablet 09:39: daily. [address] citalopram 2022-0 Yes 20mg Take 20 mg U nivers (CELEXA) 20 1-20 by mouth ity of mg tablet 09:39: daily. [address] rOPINIRole 2022-0 Yes 2mg Take 2 mg Un christie (REQUIP) 2 1-20 by mouth ity o f mg tablet 09:39: at [place] [address] bedtime. Medical Branch tiZANidine 2022-0 Yes 2mg Take 2 mg Un christie (ZANAFLEX) 1-20 by mouth 2 ity of 2 mg 09:39: (two) [place] capsule 23 times Medical daily as Branch needed for Muscle Spasms. aspirin 81 2022-0 Yes 81mg Take 81 mg U nivers mg EC 1-20 by mouth ity of tablet 09:39: daily. [place] [address] Medical Branch amLODIPine 2022-0 Yes 5mg Take 5 mg Un christie 5 mg tablet 1-20 by mouth ity of 09:39: daily. [place] [address] Medical Branch magnesium 2022-0 Yes Take by Unive rs oxide 400 1-20 mouth. ity of mg 09:39: [place] [address] Medical Tab Branch biotin 1 mg 2022-0 Yes Take by Uni vers Cap 1-20 mouth. ity of 09:39: [place] [address] Medical Branch furosemide 2022-0 Yes 20mg Take 20 mg U nivers 20 mg 1-20 by mouth ity of tablet 09:39: every [place] [address] morning Medical and Branch evening. pantoprazol 2022-0 Yes 40mg Take 40 mg Univers e 40 mg EC 1-20 by mouth ity o f tablet 09:39: daily. [place] [address] Medical Branch citalopram 2022-0 Yes 20mg Take 20 mg U nivers (CELEXA) 20 1-20 by mouth ity of mg tablet 09:39: daily. [place] [address] Medical Branch rOPINIRole 2022-0 Yes 2mg Take 2 mg Un christie (REQUIP) 2 1-20 by mouth ity o f mg tablet 09:39: at [place] [address] bedtime. Medical Branch tiZANidine 2022-0 Yes 2mg Take 2 mg Un christie (ZANAFLEX) 1-20 by mouth 2 ity of 2 mg 09:39: (two) [place] capsule 23 times Medical daily as Branch needed for Muscle Spasms. aspirin 81 2022-0 Yes 81mg Take 81 mg U nivers mg EC 1-20 by mouth ity of tablet 09:39: daily. [place] [address] Medical Branch amLODIPine 2022-0 Yes 5mg Take 5 mg Un christie 5 mg tablet 1-20 by mouth ity of 09:39: daily. [place] [address] Medical Branch magnesium 2022-0 Yes Take by Unive rs oxide 400 1-20 mouth. ity of mg 09:39: [place] [address] Medical Tab Branch biotin 1 mg Yes Take by Uni vers Cap 1-20 mouth. ity of 09:39: [place] [address] Medical Branch furosemide 0 Yes 20mg Take 20 mg U nivers 20 mg 1-20 by mouth ity of tablet 09:39: every [place] [address] morning Medical and Branch evening. pantoprazol 0 Yes 40mg Take 40 mg Univers e 40 mg EC 1-20 by mouth ity o f tablet 09:39: daily. [place] [address] Medical Branch citalopram 0 Yes 20mg Take 20 mg U nivers (CELEXA) 20 1-20 by mouth ity of mg tablet 09:39: daily. [address] Branch rOPINIRole Yes 2mg Take 2 mg Un christie (REQUIP) 2 1-20 by mouth ity o f mg tablet 09:39: at [place] [address] bedtime. Medical Branch tiZANidine Yes 2mg Take 2 mg Un christie (ZANAFLEX) 1-20 by mouth 2 ity of 2 mg 09:39: (two) [facility] 23 times Medical daily as Branch needed for Muscle Spasms. aspirin 81 0 Yes 81mg Take 81 mg U nivers mg EC 1-20 by mouth ity of tablet 09:39: daily. [address] Branch amLODIPine 0 Yes 5mg Take 5 mg Un christie 5 mg tablet 1-20 by mouth ity of 09:39: daily. [address] Branch magnesium Yes [facility] 400 1-20 mouth. ity of mg 09:39: [place] [address] Medical Tab Branch biotin 1 mg Yes Take by Uni vers Cap 1-20 mouth. ity of 09:39: [address] Branch varenicline 0 Yes [facility] (Chantix) 1 1-17 Health MG tablet 00:00: 00 varenicline 2022-0 Yes [facility] (Chantix) 1 1-17 Health MG tablet 00:00: 00 varenicline 2022-0 Yes [facility] (Chantix) 1 1-17 Health MG tablet 00:00: 00 levETIRAcet 2021-11- No [id number] 500mg Q.5D Take 1 UT am (Keppra) 12-06- tablet Healt h 500 MG 00:00: 05:59 (500 mg tablet 00 :00 total) by mouth in the morning and 1 tablet (500 mg total) in the evening. levETIRAcet 2021-11- No [id number] 500mg Q.5D Take 1 [facility] am (Keppra) 12-06 tablet Healt h 500 MG 00:00: 05:59 (500 mg tablet 00 :00 total) by mouth in the morning and 1 tablet (500 mg total) in the evening. levETIRAcet 2021-11- No [id number] 500mg Q.5D Take 1 UT am (Keppra) 12-06 tablet Healt h 500 MG 00:00: 05:59 (500 mg tablet 00 :00 total) by mouth in the morning and 1 tablet (500 mg total) in the evening. levETIRAcet 2021-11- No [id number] 750mg Q.5D Take 1 UT am (Keppra) 0- 10-20 tablet Healt h 750 MG 00:00: 04:59 (750 mg tablet 00 :00 total) by mouth in the morning and 1 tablet (750 mg total) in the evening. clonazePAM 2021-11 Yes 1 mg = 1 Mem oria 1 mg oral 0-12 tab, PO, l tablet 00:11: TID, 0 [place] 00 Refill(s) tizanidine 2021-11 Yes 4 mg = 1 Mem oria 4 mg oral 0-12 tab, PO, l tablet 00:11: BID, 0 [place] 00 Refill(s) atorvastati 2021-11 Yes 20 mg = 1 M emoria n 20 mg 0-12 tab, PO, l oral tablet 00:11: Daily, 0 He rmann 00 Refill(s) buPROPion 2021-11 Yes 300 mg = 1 Me moria 300 mg/24 0-12 tab, PO, l hours (XL) 00:11: Daily, 0 Her [place] oral 00 Refill(s) tablet, extended release pantoprazol 2021-11 Yes 40 mg = 1 M emoria e 40 mg 0-12 tab, PO, l oral 00:11: Daily, 0 Mohan enteric 00 Refill(s) coated tablet rOPINIRole 2021-11 Yes 2 mg = 1 Mem oria 2 mg oral 0-12 tab, PO, l tablet 00:11: Daily, 0 [place]an 00 Refill(s) clonazePAM 2021-11 Yes 1 mg = 1 Mem oria 1 mg oral 0-12 tab, PO, l tablet 00:11: TID, 0 Mohan 00 Refill(s) tizanidine 2021-11 Yes 4 mg = 1 Mem oria 4 mg oral 0-12 tab, PO, l tablet 00:11: BID, 0 [place] 00 Refill(s) atorvastati 2021-11 Yes 20 mg = 1 M emoria n 20 mg 0-12 tab, PO, l oral tablet 00:11: Daily, 0 He rmann 00 Refill(s) buPROPion 2021-11 Yes 300 mg = 1 Me moria 300 mg/24 0-12 tab, PO, l hours (XL) 00:11: Daily, 0 Her [place] oral 00 Refill(s) tablet, extended release pantoprazol 2021-11 Yes 40 mg = 1 M emoria e 40 mg 0-12 tab, PO, l oral 00:11: Daily, 0 [place] enteric 00 Refill(s) coated tablet rOPINIRole 2021-11 Yes 2 mg = 1 Mem oria 2 mg oral 0-12 tab, PO, l tablet 00:11: Daily, 0 [place] 00 Refill(s) Nucynta 2021-11 Yes 100 mg, Memoria 0-12 PO, 0 l 00:06: Refill(s) Mohan Nucynta 2021-11 Yes 100 mg, Memoria 0-12 PO, 0 l 00:06: Refill(s) [place] 00 levETIRAcet 2022- No [id number] 500mg Q.5D Take 1 UT am (Keppra) 07-28 tablet Healt h 500 MG 00:00: 04:59 (500 mg tablet 00 :00 total) by mouth in the morning and 1 tablet (500 mg total) in the evening. levETIRAcet 2022- No [id number] 500mg Q.5D Take 1 UT am (Keppra) 07-28 tablet Healt h 500 MG 00:00: 04:59 (500 mg tablet 00 :00 total) by mouth in the morning and 1 tablet (500 mg total) in the evening. levETIRAcet 2021- No [id number] 500mg Q.5D Take 1 UT am (Keppra) [...] 00:00: 00 tiZANidine 2021-0 Yes [facility] (Zanaflex) 14 Health 4 MG tablet 00:00: 00 tiZANidine 2021-0 Yes UT (Zanaflex) 14 Health 4 MG tablet 00:00: 00 tiZANidine 2021-0 Yes [facility] (Zanaflex) 14 Health 4 MG tablet 00:00: 00 tiZANidine 2021-0 Yes [facility] (Zanaflex) 14 Health 4 MG tablet 00:00: 00 ketorolac 2021- No 10mg 10 mg, Unive rs (TORADOL) 07-21 Oral, ity of tablet 10 23:30: 23:06 [place], 1 [place] :[place] dose, On [facility] Branch 07/21/22 at 1830, Routine diazePAM 2021- No 2.5mg 2.5 mg, Univ ers (VALIUM) 07-21 Oral, ity of tablet 2.5 21:15: 21:46 ONCE, 1 [place] as mg 00 :00 dose, On [facility] Branch 07/21/22 at 1615, ALANA levothyroxi Yes UT ne 07-17 Health (Synthroid, 00:00: Levoxyl) 50 00 MCG tablet levothyroxi Yes UT ne 07-17 Health (Synthroid, 00:00: Levoxyl) 50 00 MCG tablet levothyroxi Yes UT ne 07-17 Health (Synthroid, 00:00: Levoxyl) 50 00 MCG tablet levothyroxi 2021-0 Yes UT ne 07-17 Health (Synthroid, 00:00: Levoxyl) 50 00 MCG tablet levothyroxi 2021-0 Yes UT ne 07-17 Health (Synthroid, 00:00: Levoxyl) 50 00 MCG tablet levothyroxi 2021-0 Yes UT ne 07-17 Health (Synthroid, 00:00: Levoxyl) 50 00 MCG tablet clonazePAM 2021-0 Yes UT (KlonoPIN) 07-10 Health 1 MG tablet 00:00: 00 clonazePAM 2-0 Yes UT (KlonoPIN) 07-10 Health 1 MG tablet 00:00: 00 clonazePAM 2-0 Yes UT (KlonoPIN) 07-10 Health 1 MG tablet 00:00: 00 clonazePAM 2-0 Yes [facility] (KlonoPIN) 07-10 Health 1 MG tablet 00:00: 00 clonazePAM 2-0 Yes UT (KlonoPIN) 07-10 Health 1 MG tablet 00:00: 00 clonazePAM 2-0 Yes [facility] (KlonoPIN) 07-10 Health 1 MG tablet 00:00: 00 traZODone 2021-2022- No 1{tbl} Take 1 [facility] (Desyrel) 07-10 tablet by [facility] 300 MG 00:00: 04:59 mouth tablet 00 :00 every night. traZODone 2021-0 2022- No 1{tbl} Take 1 [facility] (Desyrel) 07-10 tablet by [facility] 300 MG 00:00: 04:59 mouth tablet 00 :00 every night. traZODone 2021-2022- No 1{tbl} Take 1 [facility] (Desyrel) 07-10 tablet by [facility] 300 MG 00:00: 04:59 mouth tablet 00 :00 every night. traZODone 2021-2022- No 1{tbl} Take 1 [facility] (Desyrel) 07-10 tablet by [facility] 300 MG 00:00: 04:59 mouth tablet 00 :00 every night. traZODone 2021-2022- No 1{tbl} Take 1 [facility] (Desyrel) 07-10 tablet by Heal th 300 MG 00:00: 04:59 mouth tablet 00 :00 every night. traZODone 2021-0 3- No 1{tbl} Take 1 [facility] (Desyrel) 07-10 tablet by Heal th 300 MG 00:00: 04:59 mouth tablet 00 :00 every night. Nucynta 100 2021-0 Yes UT MG tablet 8-30 Health 00:00: 00 Nucynta 100 2021-0 Yes Q.25D 4 (four) U T MG tablet 8-30 times a Health 00:00: day. 00 Nucynta 100 2021-0 Yes Q.25D 4 (four) U T MG tablet 8-30 times a Health 00:00: day. 00 Nucynta 100 2021-0 Yes Q.25D 4 (four) U T MG tablet 8-30 times a Health 00:00: day. 00 losartan 2021-0 Yes UT (Cozaar) 25 8-26 Health MG tablet 00:00: 00 losartan 2021-0 Yes UT (Cozaar) 25 8-26 Health MG tablet 00:00: 00 losartan 2021-0 2- No UT (Cozaar) 25 8-26 10-19 Health MG tablet 00:00: 00:00 00 :00 atorvastati 2021-0 Yes UT n (Lipitor) 8-08 Health 20 MG 00:00: tablet 00 buPROPion 2021-0 Yes UT XL 8-08 Health (Wellbutrin 00:00: XL) 300 MG 00 24 hr tablet pantoprazol 2021-0 Yes UT e 8-08 Health (ProtoNix) 00:00: 40 MG EC 00 tablet atorvastati 2021-0 Yes UT n (Lipitor) 8-08 Health 20 MG 00:00: tablet 00 buPROPion 2021-0 Yes UT XL 8-08 Health (Wellbutrin 00:00: XL) 300 MG 00 24 hr tablet pantoprazol 2021-0 Yes UT e 8-08 Health (ProtoNix) 00:00: 40 MG EC 00 tablet atorvastati 2021-0 Yes UT n (Lipitor) 8-08 Health 20 MG 00:00: tablet 00 buPROPion 2021-0 Yes UT XL 8-08 Health (Wellbutrin 00:00: XL) 300 MG 00 24 hr tablet pantoprazol 2022-0 Yes UT e 8-08 Health (ProtoNix) 00:00: 40 MG EC 00 tablet atorvastati 2022-0 Yes UT n (Lipitor) 8-08 Health 20 MG 00:00: tablet 00 buPROPion 2022-0 Yes UT XL 8-08 Health (Wellbutrin 00:00: XL) 300 MG 00 24 hr tablet pantoprazol 2022-0 Yes UT e 8-08 Health (ProtoNix) 00:00: 40 MG EC 00 tablet atorvastati 2022-0 Yes UT n (Lipitor) 8-08 Health 20 MG 00:00: tablet 00 buPROPion 2022-0 Yes UT XL 8-08 Health (Wellbutrin 00:00: XL) 300 MG 00 24 hr tablet pantoprazol 2-0 Yes UT e 8-08 Health (ProtoNix) 00:00: 40 MG EC 00 tablet atorvastati 2022-0 Yes UT n (Lipitor) 8-08 Health 20 MG 00:00: tablet 00 buPROPion 2-0 Yes UT XL 8-08 Health (Wellbutrin 00:00: XL) 300 MG 00 24 hr tablet pantoprazol 2022-0 Yes UT e 8-08 Health (ProtoNix) 00:00: 40 MG EC 00 tablet potassium 2-0 3- No 1{tbl} QD Take 1 UT chloride CR 7-22 07-23 tablet by [place] (Klor-Con) 00:00: 04:59 mouth 1 10 MEQ ER 00 :00 (one) time tablet each day. potassium 2021-0 2022- No 1{tbl} QD Take 1 [facility] chloride CR 7-22 07-23 tablet by [facility] [place] (Klor-Con) 00:00: 04:59 mouth 1 10 MEQ ER 00 :00 (one) time tablet each day. potassium 2-0 2- No 1{tbl} QD Take 1 UT chloride CR 7-22 10-19 tablet by [place] (Klor-Con) 00:00: 00:00 mouth 1 10 MEQ ER 00 :00 (one) time tablet each day. rOPINIRole 2022-0 Yes UT (Requip) 2 7-21 [...] 7-21 Health MG tablet 00:00: 00 promethazin 2022-0 Yes UT e 7-18 Health [...] (Phenergan) 00:00: 25 MG 00 tablet furosemide 2022-0 Yes UT (Lasix) 40 6-30 Health MG tablet 00:00: 00 furosemide 2022-0 Yes UT (Lasix) 40 6-30 Health MG tablet 00:00: 00 furosemide 2022-0 Yes UT (Lasix) 40 6-30 Health MG tablet 00:00: 00 furosemide 2022-0 Yes UT (Lasix) 40 6-30 Health MG tablet 00:00: 00 furosemide 2022-0 2023- No UT (Lasix) 40 6-30 07-31 Health MG tablet 00:00: 00:00 00 :00 furosemide 2022-0 2023- No UT (Lasix) 40 6-30 07-31 Health MG tablet 00:00: 00:00 00 :00 spironolact 2022-0 Yes UT one 6-17 Health (Aldactone) 00:00: 25 MG 00 tablet spironolact 2022-0 Yes UT one 6-17 Health (Aldactone) 00:00: 25 MG 00 tablet spironolact 2022-0 Yes UT one 6-17 Health (Aldactone) 00:00: 25 MG 00 tablet spironolact 2-0 Yes UT one 6-17 Health (Aldactone) 00:00: 25 MG 00 tablet spironolact 2-0 3- No UT one 04-25- Health (Aldactone) 00:00: 00:00 25 MG 00 :00 tablet spironolact 2-0 2023- No UT one 04-25- Health (Aldactone) 00:00: 00:00 25 MG 00 :00 tablet losartan 2-0 Yes UT (Cozaar) 25 5-26 Health MG tablet 00:00: 00 losartan 2-0 Yes UT (Cozaar) 25 5-26 Health MG tablet 00:00: 00 losartan 2-0 2022- No UT (Cozaar) 25 5-26 10-19 Health MG tablet 00:00: 00:00 00 :00 lubiproston 2-0 Yes UT e (Amitiza) 5-16 [...] times a capsule day if needed. hydrOXYzine 2021-0 Yes 25mg Q.5D Take 25 mg UT pamoate 5-07 by mouth 2 Health (Vistaril) 00:00: (two) 25 MG 00 times a capsule day if needed. hydrOXYzine 2021-0 Yes 25mg Q.5D Take 25 mg UT pamoate 5-07 by mouth 2 Health (Vistaril) 00:00: (two) 25 MG 00 times a capsule day if needed. hydrOXYzine 2021-0 Yes 25mg Q.5D Take 25 mg UT pamoate 5-07 by mouth 2 Health (Vistaril) 00:00: (two) 25 MG 00 times a capsule day if needed. Tapentadol 0 Yes Univers (NUCYNTA) 4-12 ity of 100 mg Tab 00:00: [place] [facility] Tapentadol 2021-0 Yes Univers (NUCYNTA) 4-12 ity of 100 mg Tab 00:00: [address] Tapentadol 2021-0 Yes Univers (NUCYNTA) 4-12 ity of 100 mg Tab 00:00: [place] [facility] Tapentadol 2021-0 Yes Univers (NUCYNTA) 4-12 ity of 100 mg Tab 00:00: [place] [facility] Tapentadol 2021-0 Yes Univers (NUCYNTA) 4-12 ity of 100 mg Tab 00:00: [place] [facility] Tapentadol 2021-0 Yes Univers (NUCYNTA) 4-12 ity of 100 mg Tab 00:00: [address] Tapentadol 2021-0 Yes Univers (NUCYNTA) 4-12 ity of 100 mg Tab 00:00: [address] Tapentadol 2021-0 Yes Univers (NUCYNTA) 4-12 ity of 100 mg Tab 00:00: [place] [address] Medical Branch dicyclomine 2021-0 Yes [facility] (Bentyl) 20 4-11 Health MG tablet 00:00: 00 dicyclomine 2021-0 Yes UT (Bentyl) 20 4-11 Health MG tablet 00:00: 00 dicyclomine 2021-0 2022- No UT (Bentyl) 20 4-11 10-19 Health MG tablet 00:00: 00:00 00 :00 Acetaminoph 2021-0 No Notes: Do M emoria en 3- not exceed l 16:40: 4 gm/day. Mohan 00 (Same as: Tylenol) Benadryl No Notes: Memoria 3-28 (Same as: l 16:40: Benadryl) Mohan 00 Reglan No Notes: Memoria 3-28 (Same as: l 16:40: Reglan) Mohan 00 Sodium No 1,000 mL, Memori a Chloride 3-28 1000 l 0.9% 16:40: ml/hr, [place] (Bolus) IV 00 Infuse Over: 1 hr, Route: IV, 1,000, Drug form: INJ, ONCE, Priority: STAT, Dosing Weight 63.636 kg, Start date: 02/03/22 11:40:00 CDT, Stop date: 02/03/22 11:40:00 CDT, 0 acetaminoph No Notes: Do M emoria en 02-03 not exceed l 16:40: 4 gm/day. Mohan 00 (Same as: Tylenol) Benadryl No Notes: Memoria 3-28 (Same as: l 16:40: Benadryl) Mohan 00 Reglan No Notes: Memoria 3-28 (Same as: l 16:40: Reglan) Mohan 00 Reglan No Notes: Memoria 3-28 (Same as: l 16:40: Reglan) Mohan 00 Sodium No 1,000 mL, Memori a Chloride 3- 1000 l 0.9% 16:40: ml/hr, [place] (Bolus) IV 00 Infuse Over: 1 hr, Route: IV, 1,000, Drug form: INJ, ONCE, Priority: STAT, Dosing Weight 63.636 kg, Start date: 02/03/22 11:40:00 CDT, Stop date: 02/03/22 11:40:00 CDT, 0 acetaminoph No Notes: Do M emoria en 3- not exceed l 16:40: 4 gm/day. [place] 00 (Same as: Tylenol) Benadryl No Notes: Memoria 3-28 (Same as: l 16:40: Benadryl) Reglan No Notes: Memoria - (Same as: l 16:40: Reglan) Acetaminoph No Notes: Do M emoria en 02-03 not exceed l 16:40: 4 gm/day. [place] 00 (Same as: Tylenol) Benadryl No Notes: Memoria - (Same as: l 16:40: Benadryl) Saline No Notes: Memoria Flush 0.9% 02-03 Same as: l 15:17: BD Posiflush Sterile Saline No Notes: Memoria Flush 0.9% 02-03 [...] Mem oria Cap 2-23 mouth. l 22:03: 05 buPROPion 2020-11 Yes 300mg Take 300 Uni vers XL 300 mg 2-30 mg by ity of 24 hr 00:00: mouth. [place] tablet [facility] buPROPion 2020-11 Yes 300mg Take 300 Uni vers XL 300 mg 2-30 mg by ity of 24 hr 00:00: mouth. [place] tablet [facility] buPROPion 2020-11 Yes 300mg Take 300 Uni vers XL 300 mg 2-30 mg by ity of 24 hr 00:00: mouth. [place] tablet [facility] buPROPion 2020-11 Yes 300mg Take 300 Uni vers XL 300 mg 2-30 mg by ity of 24 hr 00:00: mouth. [place] tablet [facility] buPROPion 2020-11 Yes 300mg Take 300 Uni vers XL 300 mg 2-30 mg by ity of 24 hr 00:00: mouth. [place] tablet [facility] buPROPion 2020-11 Yes 300mg Take 300 Uni vers XL 300 mg 2-30 mg by ity of 24 hr 00:00: mouth. [place] tablet [facility] buPROPion 2020-11 Yes 300mg Take 300 Uni vers XL 300 mg 2-30 mg by ity of 24 hr 00:00: mouth. [place] tablet [facility] buPROPion 2020-11 Yes 300mg Take 300 Uni vers XL 300 mg 2-30 mg by ity of 24 hr 00:00: mouth. [place] tablet [facility] carvedilol 2020-11 Yes [facility] (Coreg) 2-30 Health 3.125 MG 00:00: tablet 00 carvedilol 2020-11 Yes UT (Coreg) 2-30 Health 3.125 MG 00:00: tablet carvedilol 2020-11 Yes UT (Coreg) 2-30 Health 3.125 MG 00:00: tablet 00 carvedilol 2020-11 Yes [facility] (Coreg) 2-30 Health 3.125 MG 00:00: tablet 00 carvedilol 2020-11- No UT (Coreg) 06-08 Health 3.125 MG 00:00: 00:00 tablet 00 :00 carvedilol 2020-11- No [facility] (Coreg) 06-08 Health 3.125 MG 00:00: 00:00 tablet 00 :00 furosemide 2020-11 Yes 20mg Q.5D Take 20 mg M [facility]i (LASIX) 20 0-[address] mg tablet 08:44: (two) Hosp[facility] 25 times a l day. furosemide 2020-11 Yes 20mg Q.5D Take [...] tablet 25 nightly. l hydromorPHO 2020-11 Yes [id number] 4mg Q8H Take 4 mg [facility] NE [...] every l morning. clonAZEPAM 2020-11 Yes 1mg [id number] Take 1 mg [facility] (KlonoPIN) 0-04 [id number] by mouth [address] 1 MG tablet [...] 25 l coated tablet NON 2020-11 Yes [id number] [facility] FORMULARY 0-[address] 08:44: --- all, 1 Hospita 25 tab in AM l valproic 2020-11 Yes 250mg Q.5D Take 250 Meth geovani acid 0-[address] (Depakene) 08:44: mouth 2 Hosp jah 250 mg 25 (two) l capsule times a day. pantoprazol 2020-11 Yes 40mg QD Take [...] tablet 25 nightly. l hydromorPHO 2020-11 Yes [id number] 4mg Q8H Take 4 mg [facility] NE [...] every l morning. clonAZEPAM 2020-11 Yes 1mg Q.[id number] Take 1 mg [facility] (KlonoPIN) 0-04 [id number] by mouth 3 st 1 MG tablet [...] 25 l coated tablet NON 2020-11 Yes [id number] [facility] FORMULARY 0-[address] 08:44: --- [...] tablet 25 nightly. l hydromorPHO 2020-11 Yes [id number] 4mg Q8H Take 4 mg [facility] NE [...] every l morning. clonAZEPAM 2020-11 Yes 1mg Q.[id number] Take 1 mg [facility] (KlonoPIN) 0-04 [id number] by mouth 3 st 1 MG tablet [...] 25 l coated tablet NON 2020-11 Yes [id number] [facility] FORMULARY 0-[address] 08:44: --- [...] tablet 25 nightly. l hydromorPHO 2020-11 Yes [id number] 4mg Q8H Take 4 mg [facility] NE [...] every l morning. clonAZEPAM 2020-11 Yes 1mg Q.[id number] Take 1 mg [facility] (KlonoPIN) 0-04 [id number] by mouth 3 st 1 MG tablet [...] 25 l coated tablet NON 2020-11 Yes [id number] [facility] FORMULARY 0-[address] 08:44: --- [...] tablet 25 nightly. l hydromorPHO 2020-11 Yes [id number] 4mg Q8H Take 4 mg [facility] NE [...] every l morning. clonAZEPAM 2020-11 Yes 1mg [id number] Take 1 mg [facility] (KlonoPIN) 0-04 [id number] by mouth 3 st 1 MG tablet [...] 25 l coated tablet NON 2020-11 Yes [id number] [facility] FORMULARY 0-[address] 08:44: --- [...] tablet 25 nightly. l hydromorPHO 2020-11 Yes [id number] 4mg Q8H Take 4 mg [facility] NE [...] every l morning. clonAZEPAM 2020-11 Yes 1mg [id number] Take 1 mg [facility] (KlonoPIN) 0-04 [id number] by mouth 3 st 1 MG tablet [...] 25 l coated tablet NON 2020-11 Yes [id number] [facility]-[address] 08:44: --- [...] tablet 25 nightly. l hydromorPHO 2020-11 Yes 87708 4mg Q8H Take 4 mg [facility] NE [...] every l morning. clonAZEPAM 2020-11 Yes 1mg Q.[id number] Take 1 mg [facility] (KlonoPIN) 0-04 [id number] by mouth 3 [address] 1 MG tablet [...] 25 l coated tablet NON 2020-11 Yes [id number] [facility] 0-[address] 08:44: --- [...] tablet 25 nightly. l hydromorPHO 2020-11 Yes [id number] 4mg Q8H Take 4 mg [facility] NE [...] every l morning. clonAZEPAM 2020-11 Yes 1mg Q.[id number] Take 1 mg [facility] (KlonoPIN) 0-04 [id number] by mouth 3 st 1 MG tablet [...] 25 l coated tablet NON 2020-11 Yes [id number] [facility] 0-[address] 08:44: --- [...] tablet 25 nightly. l hydromorPHO 2020-11 Yes 95002 4mg Q8H Take 4 mg [facility] NE [...] every l morning. clonAZEPAM 2020-11 Yes 1mg Q.[id number] Take 1 mg [facility] (KlonoPIN) 0-04 [id number] by mouth 3 [address] 1 MG tablet [...] 25 l coated tablet NON 2020-11 Yes [id number] [facility] 0-[address] 08:44: --- [...] tablet 25 nightly. l hydromorPHO 2020-11 Yes 23519 4mg Q8H Take 4 mg [facility] NE [...] every l morning. clonAZEPAM 2020-11 Yes 1mg Q.[id number] Take 1 mg [facility] (KlonoPIN) 0-04 [id number] by mouth 3 [address] 1 MG tablet [...] 25 l coated tablet NON 2020-11 Yes [id number] [facility] 0-[address] 08:44: --- [...] tablet 25 nightly. l hydromorPHO 2020-11 Yes 40602 4mg Q8H Take 4 mg [facility] NE [...] every l morning. clonAZEPAM 2020-11 Yes 1mg Q.55941624 Take 1 mg [facility] (KlonoPIN) 0-04 [id number] by mouth 3 st 1 MG tablet [...] 25 l coated tablet NON 2020-11 Yes [id number] [facility] 0-[address] 08:44: --- [...] tablet 25 nightly. l hydromorPHO 2020-11 Yes 56881 4mg Q8H Take 4 mg [facility] NE [...] every l morning. clonAZEPAM 2020-11 Yes 1mg Q.45281815 Take 1 mg [facility] (KlonoPIN) 0-04 [id number] by mouth 3 [address] 1 MG tablet [...] 25 l coated tablet NON 2020-11 Yes [id number] [facility] 0-[address] 08:44: --- [...] U T am XR 06-04 tablet by [facility] (Keppra XR) 00:00: 00:00 mouth 500 MG 24 00 :00 every hr tablet night. levETIRAcet 2021- No 1{tbl} Take 1 U T am XR 06-04 tablet by [facility] (Keppra XR) 00:00: 00:00 mouth 500 MG [...] ity o f mg tablet 22:50: at [place] bedtime. Medical Branch tiZANidine Yes 2mg Take [...] by mouth ity of (PROTONIX) 22:50: daily. [place] 40 mg EC Medical tablet Branch citalopram Yes 20mg Take 20 mg U nivers (CELEXA) 20 5-26 by mouth ity of mg tablet 22:50: daily. Medical Branch traZODONE Yes 50mg Take 50 mg Un christie (DESYREL) 5-26 by mouth ity of 50 mg 22:50: at [place] tablet bedtime. Medical Branch rOPINIRole Yes 2mg Take 2 mg Un christie (REQUIP) 2 -26 by mouth ity o f mg tablet 22:50: at [place] bedtime. Medical Branch tiZANidine Yes 2mg Take [...] EC -26 by mouth ity of tablet 22:50: daily. [...] by mouth ity of (PROTONIX) 22:50: daily. [place] 40 mg EC Medical tablet Branch citalopram Yes 20mg Take 20 mg U nivers (CELEXA) 20 5-26 by mouth ity of mg tablet 22:50: daily. Medical Branch traZODONE Yes 50mg Take 50 mg Un christie (DESYREL) 5-26 by mouth ity of 50 mg 22:50: at [place] tablet bedtime. Medical Branch rOPINIRole Yes 2mg Take 2 mg Un christie (REQUIP) 2 -26 by mouth ity o f mg tablet 22:50: at [place] bedtime. Medical Branch tiZANidine Yes 2mg Take [...] EC -26 by mouth ity of tablet 22:50: daily. [...] of mg 22:50: magnesium Medical Tab Branch furosemide Yes 20mg Take 20 mg U nivers 20 mg 5-26 by mouth ity of tablet 22:50: every morning Medical and Branch evening. pantoprazol Yes 40mg Take 40 mg Univers e 5-26 by mouth ity of (PROTONIX) 22:50: daily. [place] 40 mg EC Medical tablet Branch citalopram Yes 20mg Take 20 mg U nivers (CELEXA) 20 5-26 by mouth ity of mg tablet 22:50: daily. Medical Branch traZODONE Yes 50mg Take 50 mg Un christie (DESYREL) 5-26 by mouth ity of 50 mg 22:50: at [facility] 01 bedtime. Medical Branch rOPINIRole Yes 2mg Take 2 mg Un christie (REQUIP) 2 5-26 by mouth ity o f mg tablet 22:50: at [place] [address] bedtime. Medical Branch tiZANidine Yes 2mg Take [...] by mouth ity of (PROTONIX) 22:50: daily. [place] 40 mg EC Medical tablet Branch citalopram Yes 20mg Take 20 mg U nivers (CELEXA) 20 5-26 by mouth ity of mg tablet 22:50: daily. Medical Branch traZODONE Yes 50mg Take 50 mg Un christie (DESYREL) 5-26 by mouth ity of 50 mg 22:50: at [facility] 01 bedtime. Medical Branch rOPINIRole Yes 2mg Take 2 mg Un christie (REQUIP) 2 5-26 by mouth ity o f mg tablet 22:50: at [place] [address] bedtime. Medical Branch tiZANidine Yes 2mg Take [...] 400 5-26 mouth. ity of mg 22:50: [place] magnesium Medical Tab Branch biotin 1 mg Yes Take by Uni vers Cap 5-26 mouth. ity of 22:50: Medical Branch furosemide Yes 20mg Take 20 mg U nivers 20 mg 5-26 by mouth ity of tablet 22:50: every morning Medical and Branch evening. pantoprazol Yes 40mg Take 40 mg Univers e 5-26 by mouth ity of (PROTONIX) 22:50: daily. [place] 40 mg EC Medical tablet Branch citalopram Yes 20mg Take 20 mg U nivers (CELEXA) 20 5-26 by mouth ity of mg tablet 22:50: daily. Medical Branch traZODONE Yes 50mg Take 50 mg Un christie (DESYREL) 5-26 by mouth ity of 50 mg 22:50: at [facility] 01 bedtime. Medical Branch rOPINIRole Yes 2mg Take 2 mg Un christie (REQUIP) 2 5-26 by mouth ity o f mg tablet 22:50: at [place] [address] bedtime. Medical Branch tiZANidine Yes 2mg Take [...] 400 5-26 mouth. ity of mg 22:50: [place] magnesium Medical Tab Branch biotin 1 mg Yes Take by Uni vers Cap 5-26 mouth. ity of 22:50: Medical Branch furosemide Yes 20mg Take 20 mg U nivers 20 mg 5-26 by mouth ity of tablet 17:50: every morning Medical and Branch evening. pantoprazol Yes 40mg Take 40 mg Univers e 5-26 by mouth ity of (PROTONIX) 17:50: daily. [place] 40 mg EC Medical tablet Branch citalopram Yes 20mg Take 20 mg U nivers (CELEXA) 20 5-26 by mouth ity of mg tablet 17:50: daily. Medical Branch traZODONE Yes 50mg Take 50 mg Un christie (DESYREL) 5-26 by mouth ity of 50 mg 17:50: at [facility] 01 bedtime. Medical Branch rOPINIRole Yes 2mg Take 2 mg Un christie (REQUIP) 2 5-26 by mouth ity o f mg tablet 17:50: at [place] [address] bedtime. Medical Branch tiZANidine Yes 2mg Take [...] 5-26 by mouth ity of 17:50: daily. [place] Medical Branch magnesium Yes Take by Unive rs oxide 400 5-26 mouth. ity of mg 17:50: [place] magnesium Medical Tab Branch biotin 1 mg Yes Take by Uni vers Cap 5-26 mouth. ity of 17:50: Medical Branch furosemide Yes 20mg Take 20 mg U nivers 20 mg 5-26 by mouth ity of tablet 17:50: every morning Medical and Branch evening. pantoprazol Yes 40mg Take 40 mg Univers e 5-26 by mouth ity of (PROTONIX) 17:50: daily. [place] 40 mg EC Medical tablet Branch citalopram Yes 20mg Take 20 mg U nivers (CELEXA) 20 5-26 by mouth ity of mg tablet 17:50: daily. Medical Branch traZODONE Yes 50mg Take 50 mg Un christie (DESYREL) 5-26 by mouth ity of 50 mg 17:50: at [facility] 01 bedtime. Medical Branch rOPINIRole Yes 2mg Take 2 mg Un christie (REQUIP) 2 5-26 by mouth ity o f mg tablet 17:50: at [place] bedtime. Medical Branch tiZANidine Yes 2mg Take [...] 400 5-26 mouth. ity of mg 17:50: [place] magnesium Medical Tab Branch biotin 1 mg 2021-0 Yes Take by Uni vers Cap 5-26 mouth. ity of 17:50: [place] 01 Medical Branch acetaminoph 2020-0 Yes Take by Uni vers [...] 400 5-26 mouth. ity of mg 17:50: [place] magnesium Medical Tab Branch biotin 1 mg Yes Take by Uni vers Cap 5-26 mouth. ity of 17:50: Medical Branch furosemide Yes 20mg Take 20 mg U nivers 20 mg 5-26 by mouth ity of tablet 17:50: every [place] morning Medical and Branch evening. pantoprazol Yes [...] 400 5-26 mouth. ity of mg 17:50: [place] magnesium Medical Tab Branch biotin 1 mg [...] 400 5-26 mouth. ity of mg 17:50: [place] magnesium Medical Tab Branch biotin 1 mg Yes Take by Uni vers Cap 5-26 mouth. ity of 17:50: Medical Branch furosemide Yes 20mg Take 20 mg U nivers 20 mg 5-26 by mouth ity of tablet 17:50: every [place] morning Medical and Branch evening. pantoprazol Yes [...] 400 5-26 mouth. ity of mg 17:50: [place] magnesium Medical Tab Branch biotin 1 mg Yes Take by Uni vers Cap 5-26 mouth. ity of 17:50: Medical Branch furosemide Yes 20mg Take 20 mg U nivers 20 mg 5-26 by mouth ity of tablet 17:50: every [place] morning Medical and Branch evening. pantoprazol Yes [...] 400 5-26 mouth. ity of mg 17:50: [place] magnesium Medical Tab Branch biotin 1 mg Yes Take by Uni vers Cap 5-26 mouth. ity of 17:50: Medical Branch furosemide Yes 20mg Take 20 mg U nivers 20 mg 5-26 by mouth ity of tablet 17:50: every [place] morning Medical and Branch evening. pantoprazol Yes [...] 400 5-26 mouth. ity of mg 17:50: [place] magnesium Medical Tab Branch biotin 1 mg Yes Take by Uni vers Cap 5-26 mouth. ity of 17:50: Medical Branch furosemide Yes 20mg Take 20 mg U nivers 20 mg 5-26 by mouth ity of tablet 17:50: every [place] morning Medical and Branch evening. pantoprazol Yes 40mg Take 40 mg Univers e 5-26 by mouth ity of (PROTONIX) 17:50: daily. [place] 40 mg EC Medical tablet Branch citalopram Yes 20mg Take 20 mg U nivers (CELEXA) 20 - by mouth ity of mg tablet 17:50: daily. Medical Branch traZODONE Yes 50mg Take 50 mg Un christie (DESYREL) -26 by mouth ity of 50 mg 17:50: at [place] tablet bedtime. Medical Branch rOPINIRole Yes 2mg Take 2 mg Un christie (REQUIP) 2 04-03 by mouth ity o f mg tablet 17:50: at [place] bedtime. Medical Branch tiZANidine Yes 2mg Take 2 mg Un christie (ZANAFLEX) 04-03 by mouth 2 ity of 2 mg [...] 04-03 by mouth ity of 17:50: daily. Medical Branch magnesium Yes Take by Unive rs oxide 400 04-03 mouth. ity of mg 17:50: [place] magnesium Medical Tab Branch biotin 1 mg Yes Take by Uni vers Cap 04-03 mouth. ity of 17:50: Medical Branch HYDROmorpho 2020- No 8mg Take 8 mg Univers ne -03 04- by mouth ity of (DILAUDID) 17:02: 00:00 every 6 Reinaldo as 8 mg tablet 51 :00 (six) Medical hours as Branch needed for Pain. atropine Yes .5mg 0.5 mg, IV Uni vers injection 04-03 Push, PRN ity o f 0.5 mg 05:33: - SEE 00 INSTRUCTIO Medical NS, Branch Starting Thu04/03/21 at 0033, Until Discontinu ed, Routine, Symptomati c Bradycardi a dextrometho Yes 10mL 10 mL, Univ ers rphan-guaif 04-03 Oral, ity of enesin 03:58: Q6HPRN, [place] (ROBITUSSIN 20 Starting Medi dyan DM) 10-100 [...] at 2000, Until Discontinu ed, Routine HYDROmorpho Yes Take 0.5 Me moria ne 8 mg 5-26 tablets by l tablet 00:00: mouth [place] 00 every 12 (twelve) hours as needed for Pain. Indication s: chronic pain HYDROmorpho No Take 8 mg M emoria ne 5-26 by mouth l (DILAUDID) 00:00: every 6 Herm gabriel 8 mg tablet 00 (six) hours as needed for Pain. HYDROmorpho 0 Yes 2745 4mg Take 0.5 Un christie ne 8 mg 5-26 tablets by ity of tablet 00:00: mouth [place] [id number] every 12 Medical (twelve) Branch hours as [...] 40 mg 00 First dose Medical on [facility] 04/02/21 at 1700, Until Discontinu ed, Routine atorvastati Yes 20mg 20 mg, Univ ers n (LIPITOR) 5-25 Oral, QPM, it y of tablet 20 22:00: First dose [place] mg 00 on [facility] 04/02/21 at Branch 1700, Until Discontinu ed, Routine magnesium 2020- No 296mL 296 mL, Uni vers citrate 5-25 05-25 Oral, ity of solution 17:15: 21:48 ONCE, 1 [place] 296 mL 00 :00 dose, [facility] 04/02/21 at Branch 1215, Routine pantoprazol Yes 40mg 40 mg, Univ ers e 5-25 Oral, ity of (PROTONIX) 14:00: DAILY, [place] EC tablet 00 First dose Medi dyan 40 mg on [facility] 04/02/21 at 0900, Until Discontinu ed, Routine aspirin EC Yes 81mg 81 mg, Unive rs tablet 81 5-25 Oral, ity of mg 14:00: DAILY, [place] 00 First dose Medical on [facility] 04/02/21 at 0900, Until Discontinu ed, Routine sennosides- Yes 2{tbl} 2 tablet, Univers docusate 5-25 Oral, BID, ity o f sodium 13:00: First dose [place] (SENOKOT-S) 00 on [facility] Medica l 8.6-50 mg 04/02/21 at Bran ch per tablet 0800, 2 tablet Until Discontinu ed, Routine polyethylen 2020-0 Yes 17g 17 g, Unive rs e glycol 5-25 Oral, BID, ity o f 3350 powder 13:00: First dose [place] 17 g 00 on [facility] 04/02/21 at Branch 0800, Until Discontinu ed, Routine ipratropium 2020-0 Yes 3mL 3 mL, [...] 00 First dose Medi dyan mcg on [facility] 04/02/21 at 0600, Until Discontinu ed, Routine lactated 0 202- No 1000mL at 200 Univ ers ringers IV 5-25 05-25 mL/hr, ity of infusion 08:00: 07:12 1,000 mL, Reinaldo as 1,000 mL 00 :00 Intravenou Medic al s, ONCE, 1 Branch dose, 04/02/21 at 0300, Routine ipratropium 2020-0 Yes [...] mg 33 SEE-INSTRU Medical CTIONS, Branch Starting [facility] 04/02/21 at 0153, Until Discontinu ed, Routine metoprolol No 25mg Take 25 mg Univers tartrate 25 05-25 by mouth ity of (LOPRESSOR) 06:52: 00:00 daily. [place] as 25 mg 52 :00 Medical tablet Branch lisinopril No Take by Uni vers (PRINIVIL,Z 5-25 [...] by mouth ity of 06:52: 00:00 daily. [place] 52 :00 Medical Branch BIOTIN ORAL 2020- No 1{tbl} Take 1 Tab Univers 25 05-25 by mouth ity of 06:52: 00:00 daily. [place] 52 :00 Medical Branch acetaminoph Yes 650mg 650 mg, Un christie en 25 Oral, ity of (TYLENOL) 06:52: Q6HPRN, [place] tablet 650 06 Starting Medic al mg [facility] 04/02/21 at 0152, Until Discontinu ed, Routine, Pain (scale 1-3), Temp > 38.5 C HYDROcodone No 1{tbl} Take 1 U nivers -acetaminop -25 05-25 tablet by it y of hen (NORCO) 06:45: 00:00 mouth [place] 7.5-325 mg 43 :00 every 6 Medica l per tablet (six) Branch hours as needed for Pain. cefTRIAXone No 1000mg 1,000 mg, Univers (ROCEPHIN) 5-25 05-25 IV ity of 1,000 mg in 04:30: 04:21 Piggyback, [place] NaCl 0.9% 00 :00 ONCE, 1 Medical [...] 5-25 mEq by l (KLOR-CON 00:00: mouth [place] 10 ORAL) 00 daily. multivitami No Take 1 Tab Memoria n tablet 5-25 by mouth l 00:00: daily. Mohan 00 BIOTIN ORAL No Take 1 Tab [facility] 5-25 by mouth l 00:00: daily. [place] 00 HYDROcodone No Take 1 Mj chadwick -acetaminop 5-25 tablet by l hen (NORCO) 00:00: mouth Donna nn 7.5-325 mg 00 every 6 per tablet (six) hours as needed for Pain. aspirin 81 Yes 81mg QD Take 81 mg U T MG EC 5-25 by mouth 1 Health tablet 00:00: (one) time 00 each day. aspirin 81 0 Yes 81mg QD Take 81 mg U T MG EC 5-25 by mouth 1 Health tablet 00:00: (one) time 00 each day. aspirin 81 0 Yes 81mg QD Take 81 mg U T MG EC 5-25 by mouth 1 Health tablet 00:00: (one) time 00 each day. metoprolol Yes Take 25 mg M emoria [...] 5-24 mEq by l (KLOR-CON 22:24: mouth [place] 10 ORAL) 03 daily. HYDROmorpho Yes Take 8 mg M emoria ne 5-24 by mouth l (DILAUDID) 22:24: every 6 Herm gabriel 8 mg tablet 03 (six) hours as needed for Pain. multivitami Yes Take 1 Tab Memoria n tablet 5-24 by mouth l 22:24: daily. Mohan 03 BIOTIN ORAL Yes Take 1 Tab Memoria 5-24 by mouth l 22:24: daily. Mohan 03 HYDROcodone Yes Take 1 Mj chadwick -acetaminop 5-24 tablet by l hen (NORCO) 22:24: mouth [place] nn 7.5-325 mg 03 every 6 per tablet (six) hours as needed for Pain. 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, Duration: 30 day, Stop date: 10/27/20 21:00:00 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, 0 atorvastati 2019-11 Yes 40 mg = 1 M emoria n 40 mg 1-20 tab, PO, l oral tablet 20:53: Bedtime, # [place] 00 30 tab, 1 Refill(s), Pharmacy: [facility] #[id number], 165.1, cm, 09/27/20 3:16:00 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, Height, 75.002, kg, 09/27/20 3:16:00 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, Weight clopidogrel 2019-11 Yes 75 mg = 1 M emoria 75 mg oral 1-20 tab, PO, l tablet 20:53: Daily, # Mohan 30 tab, 1 Refill(s), Pharmacy: [facility] #[id number], 165.1, cm, 09/27/20 3:16:00 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, Height, 75.002, kg, 09/27/20 3:16:00 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, Weight Docusate 2019-11 Yes 100 mg = 1 Mem oria Sodium 100 1-20 cap, PO, l MG Oral 20:53: Q12H, 0 Mohan Capsule 00 Refill(s) Levetiracet 2019-11 Yes 1,000 mg = Memoria am 1000 MG 1-20 1 tab, PO, l Oral Tablet 20:53: Q12H, # 60 [place] [Keppra] 00 tab, 1 Refill(s), Pharmacy: [facility] #[id number], 165.1, cm, 09/27/20 3:16:00 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, Height, 75.002, kg, 09/27/20 3:16:00 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, Weight Keppra 1000 2019-11 Yes 1,000 mg = Memoria mg oral 1-20 1 tab, PO, l tablet 20:53: Q12H, # 60 Donna nn 00 tab, 1 Refill(s), Pharmacy: [facility] #[id number], 165.1, cm, 09/27/20 3:16:00 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, Height, 75.002, kg, 09/27/20 3:16:00 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, Weight atorvastati 2019-11 Yes 40 mg = 1 M emoria n 40 mg 1-20 tab, PO, l oral tablet 20:53: Bedtime, # [place] 00 30 tab, 1 Refill(s), Pharmacy: [facility] #[id number], 165.1, cm, 09/27/20 3:16:00 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, Height, 75.002, kg, 09/27/20 3:16:00 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, Weight clopidogrel 2019-11 Yes 75 mg = 1 M emoria 75 mg oral 1-20 tab, PO, l tablet 20:53: Daily, # [place] 00 30 tab, 1 Refill(s), Pharmacy: [facility] #[id number], 165.1, cm, 09/27/20 3:16:00 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, Height, 75.002, kg, 09/27/20 3:16:00 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, Weight Docusate 2019-11 Yes 100 mg = 1 Mem oria Sodium 100 1-20 cap, PO, l MG Oral 20:53: Q12H, 0 [place] Capsule 00 Refill(s) Levetiracet 2019-11 Yes 1,000 mg = Memoria am 1000 MG 1-20 1 tab, PO, l Oral Tablet 20:53: Q12H, # 60 Mohan [Keppra] 00 tab, 1 Refill(s), Pharmacy: [facility] #[id number], 165.1, cm, 09/27/20 3:16:00 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, Height, 75.002, kg, 09/27/20 3:16:00 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, Weight Keppra 1000 2019-11 Yes 1,000 mg = Memoria mg oral 1-20 1 tab, PO, l tablet 20:53: Q12H, # 60 Donna nn 00 tab, 1 Refill(s), Pharmacy: [facility] #[id number], 165.1, cm, 09/27/20 3:16:00 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, Height, 75.002, kg, 09/27/20 3:16:00 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, Weight Lidocaine 2019-11 No 1 patch, Mj chadwick 0.05 MG/MG -20 Route: l Transdermal 19:04: TOP, Salvatore n Patch 00 Daily, Drug form: FILM, Start date: 09/28/20 13:04:00 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, Duration: 30 day, Stop date: 10/28/20 9:00:00 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, 0 Lidocaine 2019-11 No 1 patch, Mj chadwick 0.05 MG/MG 1-20 Route: l Transdermal 19:04: TOP, Salvatore n Patch 00 Daily, Drug form: FILM, Start date: 09/28/20 13:04:00 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, Duration: 30 day, Stop date: 10/28/20 9:00:00 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, 0 gabapentin 2019-11 No Notes: Memor ia 300 MG Oral 1-20 (Same as: l Capsule 17:30: Neurontin) Herm gabriel gabapentin 2019-11 No Notes: Memor ia 300 MG Oral 1-20 (Same as: l Capsule 17:30: Neurontin) Herm gabriel Lisinopril 2019-11 No 20 mg, Memor ia 1-20 Route: PO, l 15:00: Drug form: [place] 00 TAB, Daily, Dosing Weight 75.002, kg, Start date: 09/28/20 9:00:00 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, Duration: 30 day, Stop date: 10/27/20 9:00:00 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 Captopril 2019-11 No 1 tab, Memori a 50 MG / 1-20 Route: PO, l Hydrochloro 15:00: Drug Form: Mohan thiazide 25 00 TAB, MG Oral Dosing Tablet Weight 75.002, kg, Daily, Start date: 09/28/20 9:00:00 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, Duration: 30 day, Stop date: 10/27/20 9:00:00 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 Hydralazine 2019-11 No Notes: Mj chadwick Hydrochlori 1-20 (Same as: l de 10 MG 15:00: Apresoline Her bailey Oral Tablet 00 ) May interfere w/enteral feedings. Take With Food Coreg 2019-11 No Notes: Memoria 1-20 Give with l 15:00: food. [place] 00 (Same As: Coreg) Lisinopril 2019-11 No 20 mg, Memor ia 1-20 Route: PO, l 15:00: Drug form: Mohan 00 TAB, Daily, Dosing Weight 75.002, kg, Start date: 09/28/20 9:00:00 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, Duration: 30 day, Stop date: 10/27/20 9:00:00 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 Captopril 2019-11 No 1 tab, Memori a 50 MG / 1-20 Route: PO, l Hydrochloro 15:00: Drug Form: Mohan thiazide 25 00 TAB, MG Oral Dosing Tablet Weight 75.002, kg, Daily, Start date: 09/28/20 9:00:00 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, Duration: 30 day, Stop date: 10/27/20 9:00:00 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 Hydralazine 2019-11 No Notes: Mj chadwick Hydrochlori 1-20 (Same as: l de 10 MG 15:00: Apresoline Her bailey Oral Tablet 00 ) May interfere w/enteral feedings. Take With Food Coreg 2019-11 No Notes: Memoria 1-20 Give with l 15:00: food. (Same As: Coreg) Iohexol 2019-11 No 60 mL, Memoria 1-20 Route: l 07:28: IVP, Drug Form: SOLN, Dosing Weight 75.002, kg, ONCALL, STAT, Start date: 09/28/20 1:28:00 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, Duration: 1 doses or times, Dose = 2.2ml/kg, Max dose = 100ml -- "To be infused by Radiology Staff ONLY" Iohexol 2019-11 No 60 mL, Memoria 1-20 Route: l 07:28: IVP, Drug Mohan 00 Form: SOLN, Dosing Weight 75.002, kg, ONCALL, STAT, Start date: 09/28/20 1:28:00 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, Duration: 1 doses or times, Dose = 2.2ml/kg, Max dose = 100ml -- "To be infused by Radiology Staff ONLY" Hydralazine 2019-11 No Notes: Mj chadwick Hydrochlori 1-20 (Same as: l de 10 MG 06:40: Apresoline Her bailey Oral Tablet 00 ) May interfere w/enteral feedings. Take With Food Hydralazine 2019-11 No Notes: Mj chadwick Hydrochlori 1-20 (Same as: l de 10 MG 06:40: Apresoline Her bailey Oral Tablet 00 ) May interfere w/enteral feedings. Take With Food hydrochloro 2019-11 No Notes: Mj chadwick thiazide 25 1-20 (Same as: l mg oral 04:43: Hydrodiuri Herm gabriel tablet 00 l) With food. hydrochloro 2019-11 No Notes: Mj chadwick thiazide 25 1-20 (Same as: l mg oral 04:43: Hydrodiuri Herm gabriel tablet 00 l) With food. captopril 2019-11 No Notes: Memori a 1-20 Give on l 04:42: empty Mohan 00 stomach. 1 hour before meal. (Same As: Capoten) captopril 2019-11 No Notes: Memori a 1-20 Give on l 04:42: empty Mohan 00 stomach. 1 hour before meal. (Same As: Capoten) Hydralazine 2019-11 No 10 mg, Mj chadwick Hydrochlori 1-20 Route: PO, l de 10 MG 04:23: Drug form: Her bailey Oral Tablet 00 TAB, Q6H, Dosing Weight 75.002, kg, PRN Hypertensi on, Start date: 09/27/20 22:23:00 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, Duration: 30 day, Stop date: 10/27/20 22:22:00 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 Hydralazine 2019-11 No 10 mg, Mj chadwick Hydrochlori 1-20 Route: PO, l de 10 MG 04:23: Drug form: Her bailey Oral Tablet 00 TAB, Q6H, Dosing Weight 75.002, kg, PRN Hypertensi on, Start date: 09/27/20 22:23:00 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, Duration: 30 day, Stop date: 10/27/20 22:22:00 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 Captopril 2020-1 No 1 tab, Memori a 50 MG / -20 Route: PO, l Hydrochloro 03:55: Drug Form: [place] thiazide 25 00 TAB, MG Oral Dosing Tablet Weight 75.002, kg, Daily, Start date: 09/27/20 21:55:00 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, Duration: 30 day, Stop date: 10/27/20 9:00:00 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 Captopril 2019-1 No 1 tab, Memori a 50 MG / -20 Route: PO, l Hydrochloro 03:55: Drug Form: [place] thiazide 25 00 TAB, MG Oral Dosing Tablet Weight 75.002, kg, Daily, Start date: 09/27/20 21:55:00 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, Duration: 30 day, Stop date: 10/27/20 9:00:00 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 atorvastati 2019-11 No Notes: Mj chadwick n 1-20 (Same as: l 03:00: Lipitor) ropinirole 2019-1 No 2 mg, Memori a 1-20 Route: PO, l 03:00: Drug form: Mohan 00 TAB, Bedtime, Dosing Weight 75.002, kg, Start date: 09/27/20 21:00:00 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, Duration: 30 day, Stop date: 10/26/20 21:00:00 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 Clonazepam 2019-1 No 1 mg, Memori a 1-20 Route: PO, l 03:00: Drug form: Mohan 00 TAB, Bedtime, Dosing Weight 75.002, kg, Start date: 09/27/20 21:00:00 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, Duration: 30 day, Stop date: 10/26/20 21:00:00 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 atorvastati 2019- No Notes: Mj chadwick n 1-20 (Same as: l 03:00: Lipitor) ropinirole 2019-1 No 2 mg, Memori a 1-20 Route: PO, l 03:00: Drug form: Mohan 00 TAB, Bedtime, Dosing Weight 75.002, kg, Start date: 09/27/20 21:00:00 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, Duration: 30 day, Stop date: 10/26/20 21:00:00 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 Clonazepam 2019-11 No 1 mg, Memori a 1-20 Route: PO, l 03:00: Drug form: [place] TAB, Bedtime, Dosing Weight 75.002, kg, Start date: 09/27/20 21:00:00 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, Duration: 30 day, Stop date: 10/26/20 21:00:00 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 Lisinopril 2019-11 No Notes: Memor ia 1-20 (Same as: l 01:41: Prinivil, Mohan Zestril) Lisinopril 2019-11 No Notes: Memor ia 1-20 (Same as: l 01:41: Prinivil, Mohan Zestril) Plavix 2019-11 No Notes: Memoria 1-19 (Same As: l 21:57: Plavix) Plavix 2019-11 No Notes: Memoria 1-19 (Same As: l 21:57: Plavix) Dilaudid 2019-11 No Notes: Memoria 1-19 (Same as: l 20:54: Dilaudid) Clonazepam 2019-11 No Notes: Memor ia 1-19 (Same As: l 20:54: KlonoPIN) Hazardous Drug Group 3:Reproduc tive risk Hazardous Drug -- Refer to safe handling procedure PPE Matrix Dilaudid 2019-11 No Notes: Memoria 1-19 (Same as: l 20:54: Dilaudid) Clonazepam 2019-11 No Notes: Memor ia 1-19 (Same As: l 20:54: KlonoPIN) Hazardous Drug Group 3:Reproduc tive risk Hazardous Drug -- Refer to safe handling procedure PPE Matrix Alprazolam 2019-11 No Notes: Memor ia 0.25 MG 1-19 With food l Oral Tablet 17:33: or milk Her bailey [Xanax] 00 (Same as: Xanax) Alprazolam 2019-11 No Notes: Memor ia 0.25 MG 1-19 With food l Oral Tablet 17:33: or milk Her bailey [Xanax] 00 (Same as: Xanax) Docusate 2019-11 No Notes: Memoria - (Same as: l 15:00: Colace) Mohan 00 (Do Not Crush) Saline 2019-11 No Notes: Memoria Flush 0.9% - (Same as: l 15:00: BD Mohan 00 Posiflush) Levetiracet 2019-11 No Notes: Mj chadwick am 1000 MG 11-27 (Same l Oral Tablet 15:00: as:Keppra) [place] [Keppra] 00 Docusate 2019-11 No Notes: Memoria - (Same as: l 15:00: Colace) Mohan 00 (Do Not Crush) Saline 2019-11 No Notes: Memoria Flush 0.9% 11-27 (Same as: l 15:00: BD Mohan 00 Posiflush) Levetiracet 2019-11 No Notes: Mj chadwick am 1000 MG 11-27 (Same l Oral Tablet 15:00: as:Keppra) Mohan [Keppra] 00 heparin 2019-11 No Notes: Memoria - porcine l 14:00: heparin Mohan 00 heparin 2019-11 No Notes: Memoria 11-27 porcine l 14:00: heparin [place] 00 Insulin 2019-11 No Notes: Memoria regular - (Same as: l 13:30: Humulin R) Mohan 00 Roll in palms of hands gently; Do not shake vigorously . WASTE: F/P - Black; E - Municipal Trash Bin Stable for 31 days at room temperatur e Expires in days from ____Date Insulin 2019-11 No Notes: Memoria regular - (Same as: l 13:30: Humulin R) [place] 00 Roll in palms of hands gently; Do not shake vigorously . WASTE: F/P - Black; E - Municipal Trash Bin Stable for 31 days at room temperatur e Expires in days from ____Date Thyroxine 2019-11 No Notes: Memori a -19 Take 1 l 12:30: hour [place] 00 before or 2 hours after meal; Enteral feeds may interefere with the absorption of this medication .(Same as:Levothr oid, Synthroid) Thyroxine 2019-11 No Notes: Memori a 1-19 Take 1 l 12:30: hour before or 2 hours after meal; Enteral feeds may interefere with the absorption of this medication .(Same as:Levothr oid, Synthroid) Hydralazine 2019-11 No Notes: Mj chadwick 1-19 (Same as: l 11:58: Apresoline ) Push over 5 minutes Hydralazine 2019-11 No Notes: Mj chadwick -19 (Same as: l 11:58: Apresoline Mohan 00 ) Push over 5 minutes Hydralazine 2019-11 No Notes: Mj chadwick 1-19 (Same as: l 11:15: Apresoline ) Push over 5 minutes Hydralazine 2019-11 No Notes: Mj chadwick 1-19 (Same as: l 11:15: Apresoline ) Push over 5 minutes Clonazepam 2019-11 No Notes: Memor ia - (Same As: l 10:52: KlonoPIN) Hazardous Drug Group 3:Reproduc tive risk Hazardous Drug -- Refer to safe handling procedure PPE Matrix Clonazepam 2019-11 No Notes: Memor ia - (Same As: l 10:52: KlonoPIN) Hazardous Drug Group 3:Reproduc tive risk Hazardous Drug -- Refer to safe handling procedure PPE Matrix Dextrose 2019-11 No 12.5 gm, Memor ia 50% Syringe 11-27 25 mL, l (D50W) 09:51: Route: IVP, Drug Form: INJ, Dosing Weight 75.002, kg, PRN, PRN Blood Glucose Results, Start date: 09/27/20 3:51:00 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, Duration: 30 day, Stop date: 10/27/20 3:50:00 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, 0 Glucagon 2019-11 No 1 mg, Memoria 11-27 Route: IM, l 09:51: Drug form: PDR/INJ, PRN, Dosing Weight 75.002, kg, PRN Blood Glucose Results, Start date: 09/27/20 3:51:00 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, Duration: 30 day, Stop date: 10/27/20 3:50:00 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, 0 Dextrose 2019-11 No 12.5 gm, Memor ia 50% Syringe 11-27 25 mL, l (D50W) 09:51: Route: Mohan IVP, Drug Form: INJ, Dosing Weight 75.002, kg, PRN, PRN Blood Glucose Results, Start date: 09/27/20 3:51:00 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, Duration: 30 day, Stop date: 10/27/20 3:50:00 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, 0 Glucagon 2019-11 No 1 mg, Memoria 11-27 Route: IM, l 09:51: Drug form: Mohan 00 PDR/INJ, PRN, Dosing Weight 75.002, kg, PRN Blood Glucose Results, Start date: 09/27/20 3:51:00 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, Duration: 30 day, Stop date: 10/27/20 3:50:00 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, 0 Ativan 2019-11 No Notes: Memoria - (Same as: l 09:38: Ativan) Ativan 2019-11 No Notes: Memoria - (Same as: l 09:38: Ativan) ropinirole 2019-11 No Notes: Memor ia - (Same as: l 09:25: Requip) ropinirole 2019-11 No Notes: Memor ia - (Same as: l 09:25: Requip) Trazodone 2019-11 No Notes: Memori a - (Same As: l 08:55: Desyrel) Trazodone 2019-11 No Notes: Memori a - (Same As: l 08:55: Desyrel) Labetalol 2019-11 No 105 mmHg, Me moria 11-27 Start l 08:25: date: 09/27/20 2:25:00 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, Duration: 30 day, Stop date: 10/27/20 2:24:00 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, 0 Acetaminoph 2019-11 No Notes: Do M emoria en 11-27 not exceed l 08:25: 4 gm/day. (Same as: Tylenol) Saline 2019-11 No Notes: Memoria Flush 0.9% 11-27 (Same as: l 08:25: BD Posiflush) Labetalol 2019-11 No 105 mmHg, Me moria 11-27 Start l 08:25: date: 09/27/20 2:25:00 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, Duration: 30 day, Stop date: 10/27/20 2:24:00 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, 0 Acetaminoph 2019-11 No Notes: Do M emoria en 11-27 not exceed l 08:25: 4 gm/day. (Same as: Tylenol) Saline 2019-11 No Notes: Memoria Flush 0.9% 11-27 (Same as: l 08:25: BD Posiflush) Fentanyl 2019-11 No 50 Memoria 1-19 microgram, l 06:18: Route: IVP, ONCE, Dosing Weight 75, kg, Priority: STAT, Start date: 09/27/20 0:18:00 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, Stop date: 09/27/20 0:18:00 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 Fentanyl 2019-11 No 50 Memoria 1-19 microgram, l 06:18: Route: IVP, ONCE, Dosing Weight 75, kg, Priority: STAT, Start date: 09/27/20 0:18:00 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, Stop date: 09/27/20 0:18:00 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 Keppra 2019-11 No 1,000 mg, Memori a 11-27 Route: l 06:08: IVPB, ONCE, Dosing Weight 75, kg, Priority: STAT, Start date: 09/27/20 0:08:00 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, Stop date: 09/27/20 0:08:00 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 Keppra 2019-11 No 1,000 mg, Memori a 11-27 Route: l 06:08: IVPB, Mohan 00 ONCE, Dosing Weight 75, kg, Priority: STAT, Start date: 09/27/20 0:08:00 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, Stop date: 09/27/20 0:08:00 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 Ativan 2019-11 No Notes: Memoria - (Same as: l 05:36: Ativan) Ativan 2019-11 No Notes: Memoria - (Same as: l 05:36: Ativan) Acetaminoph 2019-11 No 1 tab, Mj chadwick en 325 MG / 11-27 Route: PO, l Hydrocodone 03:18: Drug Form: Mohan Bitartrate 00 TAB, 5 MG Oral Dosing Tablet Weight 75, [[place] kg, ONCE, 5/325] STAT, Start date: 09/26/20 21:18:00 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, Stop date: 09/26/20 21:18:00 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 Acetaminoph 2020- No 1 tab, Mj chadwick en 325 MG / 11-27 Route: PO, l Hydrocodone 03:18: Drug Form: [place] Bitartrate 00 TAB, 5 MG Oral Dosing Tablet Weight 75, [[place] kg, ONCE, 5/325] STAT, Start date: 09/26/20 21:18:00 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, Stop date: 09/26/20 21:18:00 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 Ativan 2019- No 2 mg, Memoria - Route: l 01:31: IVP, Drug Mohan 00 form: INJ, ONCE, Dosing Weight 75, kg, Priority: STAT, Start date: 09/26/20 19:31:00 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, Stop date: 09/26/20 19:31:00 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 Ativan 2019-11 No 2 mg, Memoria - Route: l 01:31: IVP, Drug [place] 00 form: INJ, ONCE, Dosing Weight 75, kg, Priority: STAT, Start date: 09/26/20 19:31:00 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, Stop date: 09/26/20 19:31:00 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 Sodium 2020-1 No 1,000 mL, Memori a Chloride 1-19 Infuse l 0.9% 01:28: Over: 1 Mohan (Bolus) IV 00 hr, Route: IV, ONCE, Priority: STAT, Dosing Weight 75 kg, Start date: 09/26/20 19:28:00 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, Stop date: 09/26/20 19:28:00 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 Sodium 2020-1 No 1,000 mL, Memori a Chloride 1-19 Infuse l 0.9% 01:28: Over: 1 [place] (Bolus) IV 00 hr, Route: IV, ONCE, Priority: STAT, Dosing Weight 75 kg, Start date: 09/26/20 19:28:00 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, Stop date: 09/26/20 19:28:00 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 Ativan 2019-11 No 1 mg, Memoria 1-19 Route: IM, l 01:01: Drug form: [place] 00 INJ, ONCE, Dosing Weight 56.002, kg, Priority: STAT, Start date: 09/26/20 19:01:00 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, Stop date: 09/26/20 19:01:00 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 Ativan 2019- No 1 mg, Memoria 1-19 Route: IM, l 01:01: Drug form: [place] 00 INJ, ONCE, Dosing Weight 56.002, kg, Priority: STAT, Start date: 09/26/20 19:01:00 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, Stop date: 09/26/20 19:01:00 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 traZODONE 2019- Yes 50mg Take 50 mg [...] Medical Branch magnesium 2020- Yes Take by Unive rs oxide 400 [...] 2019- Yes 50mg Take 50 mg Un chirstie (DESYREL) 0-22 by mouth ity of 50 mg 20:09: at [place] tablet 19 bedtime. Medical Branch magnesium 2019- Yes Take by Unive rs oxide 400 0-22 mouth. ity of mg 20:09: [place] magnesium 19 Medical Tab Branch furosemide 2019- Yes 20mg Take 20 mg U nivers (LASIX) 40 0-22 by mouth ity o f mg tablet 20:06: daily. [address] Branch pantoprazol 2019-11 Yes 40mg Take 40 mg Univers e 0-22 by mouth ity of (PROTONIX) 20:06: daily. [place] 40 mg EC 52 Medical tablet Branch citalopram 2019-11 Yes 20mg Take 20 mg U nivers (CELEXA) 20 0-22 by mouth ity of mg tablet 20:06: daily. [address] Branch rOPINIRole 2019-11 Yes 2mg Take 2 mg Un christie (REQUIP) 2 0-22 by mouth ity o f mg tablet 20:06: at [place] [address] bedtime. Medical Branch tiZANidine 2019-11 Yes 2mg [...] 0-22 by mouth ity of 20:06: daily. [address] Branch DOCUSATE 2019-11 Yes 1{tbl} Take 1 Tab U nivers CALCIUM 0-22 by mouth ity of (STOOL 20:06: as needed [place] SOFTENER for Medical ORAL) Constipati Branch on. amLODIPine 2019-11 Yes 5mg Take 5 mg Un christie 5 mg tablet 0-22 by mouth ity of 20:06: daily. [address] furosemide 2019-11 Yes 20mg Take 20 mg U nivers (LASIX) 40 0-22 by mouth ity o f mg tablet 20:06: daily. [address] Branch pantoprazol 2019-11 Yes 40mg Take 40 mg Univers e 0-22 by mouth ity of (PROTONIX) 20:06: daily. [place] 40 mg EC Medical tablet Branch citalopram 2019-11 Yes 20mg Take 20 mg U nivers (CELEXA) 20 0-22 by mouth ity of mg tablet 20:06: daily. [place] 52 Medical Branch rOPINIRole 2019-11 Yes 2mg Take 2 mg Un christie (REQUIP) 2 0-22 by mouth ity o f mg tablet 20:06: at [place] [address] bedtime. Medical Branch tiZANidine 2019-11 Yes 2mg [...] 0-22 by mouth ity of 20:06: daily. [place] [address] Medical Branch DOCUSATE 2019-11 Yes 1{tbl} Take 1 Tab U nivers CALCIUM 0-22 by mouth ity of (STOOL 20:06: as needed [place] SOFTENER for Medical ORAL) Constipati Branch on. amLODIPine 2019-11 Yes 5mg Take 5 mg Un christie 5 mg tablet 0-22 by mouth ity of 20:06: daily. [place] [address] Medical Branch furosemide 2019-11 Yes 20mg Take 20 mg U nivers (LASIX) 40 0-22 by mouth ity o f mg tablet 20:06: daily. [place] [address] Medical Branch pantoprazol 2019-11 Yes 40mg Take 40 mg Univers e 0-22 by mouth ity of (PROTONIX) 20:06: daily. [place] 40 [place] [address] Medical tablet Branch citalopram 2019-11 Yes 20mg Take 20 mg U nivers (CELEXA) 20 0-22 by mouth ity of mg tablet 20:06: daily. [place] [address] Medical Branch rOPINIRole 2019-11 Yes 2mg Take 2 mg Un christie (REQUIP) 2 0-22 by mouth ity o f mg tablet 20:06: at [place] [address] bedtime. Medical Branch tiZANidine 2019-11 Yes 2mg [...] 0-22 by mouth ity of 20:06: daily. [place] [address] Medical Branch DOCUSATE 2019-11 Yes 1{tbl} Take 1 Tab U nivers CALCIUM 0-22 by mouth ity of (STOOL 20:06: as needed [place] SOFTENER 52 for Medical ORAL) Constipati Branch on. amLODIPine 2019-11 Yes 5mg Take 5 mg Un christie 5 mg tablet 0-22 by mouth ity of 20:06: daily. [place] [address] Medical Branch furosemide 2019-11 Yes 20mg Take 20 mg U nivers (LASIX) 40 0-22 by mouth ity o f mg tablet 20:06: daily. [place] [address] Medical Branch pantoprazol 2019-11 Yes 40mg Take 40 mg Univers e 0-22 by mouth ity of (PROTONIX) 20:06: daily. [place] 40 [place] [address] Medical tablet Branch citalopram 2019-11 Yes 20mg Take 20 mg U nivers (CELEXA) 20 0-22 by mouth ity of mg tablet 20:06: daily. [place] [address] Medical Branch rOPINIRole 2019-11 Yes 2mg Take 2 mg Un christie (REQUIP) 2 0-22 by mouth ity o f mg tablet 20:06: at [place] [address] bedtime. Medical Branch tiZANidine 2019-11 Yes 2mg [...] 0-22 by mouth ity of 20:06: daily. [place] [address] Medical Branch DOCUSATE 2019-11 Yes 1{tbl} Take 1 Tab U nivers CALCIUM 0-22 by mouth ity of (STOOL 20:06: as needed [place] SOFTENER for Medical ORAL) Constipati Branch on. amLODIPine 2019-11 Yes 5mg Take 5 mg Un christie 5 mg tablet 0-22 by mouth ity of 20:06: daily. [place] [address] Medical Branch furosemide 2019-11 Yes 20mg Take 20 mg U nivers (LASIX) 40 0-22 by mouth ity o f mg tablet 20:06: daily. [place] [address] Medical Branch pantoprazol 2019-11 Yes 40mg Take 40 mg Univers e 0-22 by mouth ity of (PROTONIX) 20:06: daily. [place] 40 mg EC Medical tablet Branch citalopram 2019-11 Yes 20mg Take 20 mg U nivers (CELEXA) 20 0-22 by mouth ity of mg tablet 20:06: daily. [place] [address] Medical Branch rOPINIRole 2019-11 Yes 2mg Take 2 mg Un christie (REQUIP) 2 0-22 by mouth ity o f mg tablet 20:06: at [place] [address] bedtime. Medical Branch tiZANidine 2019-11 Yes 2mg [...] 0-22 by mouth ity of 20:06: daily. [place] [address] Medical Branch DOCUSATE 2019-11 Yes 1{tbl} Take 1 Tab U nivers CALCIUM 0-22 by mouth ity of (STOOL 20:06: as needed [place] SOFTENER for Medical ORAL) Constipati Branch on. amLODIPine 2019-11 Yes 5mg Take 5 mg Un christie 5 mg tablet 0-22 by mouth ity of 20:06: daily. [place] [address] Medical Branch furosemide 2019-11 Yes 20mg Take 20 mg U nivers (LASIX) 40 0-22 by mouth ity o f mg tablet 20:06: daily. [place] [address] Medical Branch pantoprazol 2019-11 Yes 40mg Take 40 mg Univers e 0-22 by mouth ity of (PROTONIX) 20:06: daily. [place] 40 mg EC 52 Medical tablet Branch citalopram 2019-11 Yes 20mg Take 20 mg U nivers (CELEXA) 20 0-22 by mouth ity of mg tablet 20:06: daily. [place] [address] Medical Branch rOPINIRole 2019-11 Yes 2mg Take 2 mg Un christie (REQUIP) 2 0-22 by mouth ity o f mg tablet 20:06: at [place] [address] bedtime. Medical Branch tiZANidine 2019-11 Yes 2mg [...] 0-22 by mouth ity of 20:06: daily. [address] Branch DOCUSATE 2019-11 Yes 1{tbl} Take 1 Tab U nivers CALCIUM 0-22 by mouth ity of (STOOL 20:06: as needed [place] SOFTENER for Medical ORAL) Constipati Branch on. amLODIPine 2019-11 Yes 5mg Take 5 mg Un christie 5 mg tablet 0-22 by mouth ity of 20:06: daily. [place] [address] Medical Branch furosemide 2019-11 Yes 20mg Take 20 mg U nivers (LASIX) 40 0-22 by mouth ity o f mg tablet 20:06: daily. [place] [address] Medical Branch pantoprazol 2019-11 Yes 40mg Take 40 mg Univers e 0-22 by mouth ity of (PROTONIX) 20:06: daily. [place] 40 mg EC Medical tablet Branch citalopram 2019-11 Yes 20mg Take 20 mg U nivers (CELEXA) 20 0-22 by mouth ity of mg tablet 20:06: daily. [address] Branch rOPINIRole 2019-11 Yes 2mg Take 2 mg Un christie (REQUIP) 2 0-22 by mouth ity o f mg tablet 20:06: at [place] [address] bedtime. Medical Branch tiZANidine 2019-11 Yes 2mg [...] 0-22 by mouth ity of 20:06: daily. [place] [address] Medical Branch DOCUSATE 2019-11 Yes 1{tbl} Take 1 Tab U nivers CALCIUM 0-22 by mouth ity of (STOOL 20:06: as needed [place] SOFTENER for Medical ORAL) Constipati Branch on. amLODIPine 2019-11 Yes 5mg Take 5 mg Un christie 5 mg tablet 0-22 by mouth ity of 20:06: daily. [place] [address] Medical Branch furosemide 2019-11 Yes 20mg Take 20 mg U nivers (LASIX) 40 0-22 by mouth ity o f mg tablet 20:06: daily. [place] [address] Medical Branch pantoprazol 2019-11 Yes 40mg Take 40 mg Univers e 0-22 by mouth ity of (PROTONIX) 20:06: daily. [place] 40 [place] [address] Medical [facility] Branch citalopram 2019-11 Yes 20mg Take 20 mg U nivers (CELEXA) 20 0-22 by mouth ity of mg tablet 20:06: daily. [place] [address] Medical Branch rOPINIRole 2019-11 Yes 2mg Take 2 mg Un christie (REQUIP) 2 0-22 by mouth ity o f mg tablet 20:06: at [place] [address] bedtime. Medical Branch tiZANidine 2019-11 Yes 2mg [...] 0-22 by mouth ity of 20:06: daily. [place] [address] Medical Branch DOCUSATE 2019-11 Yes 1{tbl} Take 1 Tab U nivers CALCIUM 0-22 by mouth ity of (STOOL 20:06: as needed [place] SOFTENER for Medical ORAL) Constipati Branch on. amLODIPine 2019-11 Yes 5mg Take 5 mg Un christie 5 mg tablet 0-22 by mouth ity of 20:06: daily. [place] [address] Medical Branch furosemide 2019-11 Yes 20mg Take 20 mg U nivers (LASIX) 40 0-22 by mouth ity o f mg tablet 20:06: daily. [place] [address] Medical Branch pantoprazol 2019-11 Yes 40mg Take 40 mg Univers e 0-22 by mouth ity of (PROTONIX) 20:06: daily. [address] EC Medical tablet Branch citalopram 2019-11 Yes 20mg Take 20 mg U nivers (CELEXA) 20 0-22 by mouth ity of mg tablet 20:06: daily. [address] Branch rOPINIRole 2019-11 Yes 2mg Take 2 mg Un christie (REQUIP) 2 0-22 by mouth ity o f mg tablet 20:06: at [place] [address] bedtime. Medical Branch tiZANidine 2019-11 Yes 2mg [...] 0-22 by mouth ity of 20:06: daily. [place] [address] Medical Branch DOCUSATE 2019-11 Yes 1{tbl} Take 1 Tab U nivers CALCIUM 0-22 by mouth ity of (STOOL 20:06: as needed [place] SOFTENER for Medical ORAL) Constipati Branch on. amLODIPine 2019-11 Yes 5mg Take 5 mg Un christie 5 mg tablet 0-22 by mouth ity of 20:06: daily. [address] Branch furosemide 2019-11 Yes 20mg Take 20 mg U nivers (LASIX) 40 0-22 by mouth ity o f mg tablet 20:06: daily. [place] [address] Medical Branch pantoprazol 2019-11 Yes 40mg Take 40 mg Univers e 0-22 by mouth ity of (PROTONIX) 20:06: daily. [place] 40 mg EC Medical tablet Branch citalopram 2019-11 Yes 20mg Take 20 mg U nivers (CELEXA) 20 0-22 by mouth ity of mg tablet 20:06: daily. [place] [address] Medical Branch rOPINIRole 2019-11 Yes 2mg Take 2 mg Un christie (REQUIP) 2 0-22 by mouth ity o f mg tablet 20:06: at [place] [address] bedtime. Medical Branch tiZANidine 2019-11 Yes 2mg [...] 0-22 by mouth ity of 20:06: daily. [address] Branch DOCUSATE 2019-11 Yes 1{tbl} Take 1 Tab U nivers CALCIUM 0-22 by mouth ity of (STOOL 20:06: as needed [place] SOFTENER for Medical ORAL) Constipati Branch on. amLODIPine 2019-11 Yes 5mg Take 5 mg Un christie 5 mg tablet 0-22 by mouth ity of 20:06: daily. [address] furosemide 2019-11 Yes 20mg Take 20 mg U nivers (LASIX) 40 0-22 by mouth ity o f mg tablet 20:06: daily. [address] Branch pantoprazol 2019-11 Yes 40mg Take 40 mg Univers e 0-22 by mouth ity of (PROTONIX) 20:06: daily. [place] 40 mg EC Medical tablet Branch citalopram 2019-11 Yes 20mg Take 20 mg U nivers (CELEXA) 20 0-22 by mouth ity of mg tablet 20:06: daily. [address] Branch rOPINIRole 2019-11 Yes 2mg Take 2 mg Un christie (REQUIP) 2 0-22 by mouth ity o f mg tablet 20:06: at [place] [address] bedtime. Medical Branch tiZANidine 2019-11 Yes 2mg [...] 0-22 by mouth ity of 20:06: daily. [place] [address] Medical Branch DOCUSATE 2019-11 Yes 1{tbl} Take 1 Tab U nivers CALCIUM 0-22 by mouth ity of (STOOL 20:06: as needed [place] SOFTENER for Medical ORAL) Constipati Branch on. amLODIPine 2019-11 Yes 5mg Take 5 mg Un christie 5 mg tablet 0-22 by mouth ity of 20:06: daily. [place] [address] Medical Branch furosemide 2019-11 Yes 20mg Take 20 mg U nivers (LASIX) 40 0-22 by mouth ity o f mg tablet 20:06: daily. [place] [address] Medical Branch pantoprazol 2019-11 Yes 40mg Take 40 mg Univers e 0-22 by mouth ity of (PROTONIX) 20:06: daily. [place] 40 mg [facility] Medical tablet Branch citalopram 2019-11 Yes 20mg Take 20 mg U nivers (CELEXA) 20 0-22 by mouth ity of mg tablet 20:06: daily. [place] [address] Medical Branch rOPINIRole 2019-11 Yes 2mg Take 2 mg Un christie (REQUIP) 2 0-22 by mouth ity o f mg tablet 20:06: at [place] [address] bedtime. Medical Branch tiZANidine 2019-11 Yes 2mg [...] 0-22 by mouth ity of 20:06: daily. [address] DOCUSATE 2019-11 Yes 1{tbl} Take 1 Tab U nivers CALCIUM 0-22 by mouth ity of (STOOL 20:06: as needed [place] SOFTENER 52 for Medical ORAL) Constipati Branch on. amLODIPine 2019-11 Yes 5mg Take 5 mg Un christie 5 mg tablet 0-22 by mouth ity of 20:06: daily. [address] amLODIPine 2019-11 Yes 1{tbl} QD Take 1 [facility] (Norvasc) 5 0-22 tablet by [facility] MG tablet 00:00: mouth 1 00 (one) time each day. amLODIPine 2019-11 Yes 1{tbl} QD Take 1 [place] (Norvasc) 5 0-22 tablet by [facility] MG tablet 00:00: mouth 1 00 (one) time each day. amLODIPine 2019-11- No [...] Memoria 1 mg tablet 0-20 l 00:00: [place] [address] clonazePAM 2019-11 Yes Univers 1 mg tablet 0-20 ity of 00:00: [address] clonazePAM 2019- Yes Univers 1 mg tablet 0-20 ity of 00:00: [place] [facility] clonazePAM 2020- Yes Univers 1 mg tablet 0-20 ity of 00:00: [place] [facility] clonazePAM 2020- Yes Univers 1 mg tablet 0-20 ity of 00:00: [place] [facility] clonazePAM 2019-11 Yes Univers 1 mg tablet 0-20 ity of 00:00: [place] [facility] clonazePAM 2020 Yes Univers 1 mg tablet 0-20 ity of 00:00: [place] [facility] clonazePAM 2019-11 Yes Univers 1 mg tablet 0-20 ity of 00:00: [place] [facility] clonazePAM 2019-11 Yes Univers 1 mg tablet 0-20 ity of 00:00: [address] clonazePAM 2020 Yes Univers 1 mg tablet 0-20 ity of 00:00: [address] clonazePAM 2019-11 Yes Univers 1 mg tablet 0-20 ity of 00:00: [address] clonazePAM 2019-11 Yes Univers 1 mg tablet 0-20 ity of 00:00: [place] [facility] clonazePAM 2019-11 Yes Univers 1 mg tablet 0-20 ity of 00:00: [place] [facility] clonazePAM 2019-11 Yes Univers 1 mg tablet 0-20 ity of 00:00: [place] [facility] clonazePAM 2020 Yes Univers 1 mg tablet 0-20 ity of 00:00: [place] [facility] clonazePAM 2019-11 Yes Univers 1 mg tablet 0-20 ity of 00:00: [address] clonazePAM 2020 Yes Univers 1 mg tablet 0-20 ity of 00:00: [place] [facility] clonazePAM 2020 Yes Univers 1 mg tablet 0-20 ity of 00:00: [place] [facility] clonazePAM 2020 Yes Univers 1 mg tablet 0-20 ity of 00:00: [address] clonazePAM 2020 Yes Univers 1 mg tablet 0-20 ity of 00:00: [address] clonazePAM 2020 Yes Univers 1 mg tablet 0-20 ity of 00:00: [address] clonazePAM 2020 Yes Univers 1 mg tablet 0-20 ity of 00:00: [address] clonazePAM 2020 Yes Univers 1 mg tablet 0-20 ity of 00:00: [place] 00 Medical Branch clonazePAM 2020-1 Yes Univers 1 mg tablet 0-20 ity of 00:00: [place] [facility] clonazePAM 2020-1 Yes Univers 1 mg tablet 0-20 ity of 00:00: [place] [facility] clonazePAM 2020-1 Yes Univers 1 mg tablet 0-20 ity of 00:00: [place] [facility] clonazePAM 2020-1 Yes Univers 1 mg tablet 0-20 ity of 00:00: [place] [address] Medical Branch clonazePAM 2020-1 Yes Univers 1 mg tablet 0-20 ity of 00:00: [place] [facility] clonazePAM 2020-1 Yes Univers 1 mg tablet 0-20 ity of 00:00: [place] [address] Medical Branch clonazePAM 2020-1 Yes Univers 1 mg tablet 0-20 ity of 00:00: [place] [address] [facility] clonazePAM 2020- Yes [facility] 1 mg tablet 0-20 ity of 00:00: [place] [facility] clonazePAM 2020- Yes [facility] 1 mg tablet 0-20 ity of 00:00: [place] [address] [facility] clonazePAM 2020- Yes [facility] 1 mg tablet 0-20 ity of 00:00: [place] [address] [facility] clonazePAM 2020-1 Yes [facility] 1 mg tablet 0-20 ity of 00:00: [place] [address] [facility] clonazePAM 2020-1 Yes [facility] 1 mg tablet 0-20 ity of 00:00: [address] Branch AMITIZA 24 2020-0 Yes Memoria mcg capsule 9-14 l 00:00: [place] AMITIZA 24 2019-0 Yes Univers mcg capsule 9-14 ity of 00:00: [place] [address] [facility] AMITIZA 24 2020-0 Yes Univers mcg capsule 9-14 ity of 00:00: [place] [facility] AMITIZA 24 2020-0 Yes Univers mcg capsule 9-14 ity of 00:00: [place] [facility] AMITIZA 24 2020-0 Yes Univers mcg capsule 9-14 ity of 00:00: [address] AMITIZA 24 2020-0 Yes Univers mcg capsule 9-14 ity of 00:00: [address] Branch AMITIZA 24 2020-0 Yes Univers mcg capsule 9-14 ity of 00:00: [place] [facility] AMITIZA 24 2020-0 Yes Univers mcg capsule 9-14 ity of 00:00: [place] [facility] AMITIZA 24 2020-0 Yes Univers mcg capsule 9-14 ity of 00:00: [place] 00 [facility] AMITIZA 24 2020-0 Yes [facility] mcg capsule 9-14 ity of 00:00: [place] [facility] Yes [facility] mcg capsule 9-14 ity of 00:00: [place] 00 [facility] AMITIZA 24 2020-0 Yes [facility] mcg capsule 9-14 ity of 00:00: [place] 00 [facility] AMITIZA 24 2020-0 Yes [facility] mcg capsule 9-14 ity of 00:00: [place] 00 [facility] AMITIZA 24 2020-0 Yes [facility] mcg capsule 9-14 ity of 00:00: [place] 00 [facility] AMIZA 24 2020-0 Yes [facility] mcg capsule 9-14 ity of 00:00: [place] 00 [facility] AMIZA 24 2020-0 Yes [facility] mcg capsule 9-14 ity of 00:00: [place] 00 [facility] AMIZA 24 2020-0 Yes [facility] mcg capsule 9-14 ity of 00:00: [place] 00 [facility] AMITIZA 24 2020-0 Yes [facility] mcg capsule 9-14 ity of 00:00: [place] [facility] 2020-0 Yes [facility] mcg capsule 9-14 ity of 00:00: [place] 00 [facility] 2020-0 Yes [facility] mcg capsule 9-14 ity of 00:00: [place] 00 [facility] 2020-0 Yes [facility] mcg capsule 9-14 ity of 00:00: [place] 00 [facility] 2020-0 Yes [facility] mcg capsule 9-14 ity of 00:00: [place] 00 [facility] AMITIZA 24 2020-0 Yes [facility] mcg capsule 9-14 ity of 00:00: [place] 00 [facility] AMITIZA 24 2020-0 Yes [facility] mcg capsule 9-14 ity of 00:00: [place] 00 [facility] AMIZA 24 2020-0 Yes [facility] mcg capsule 9-14 ity of 00:00: [place] 00 [facility] AMITIZA 24 2020-0 Yes [facility] mcg capsule 9-14 ity of 00:00: [place] 00 [facility] 2020-0 Yes [facility] mcg capsule 9-14 ity of 00:00: [place] 00 [facility] AMITIZA 24 2020-0 Yes Univers mcg capsule 9-14 ity of 00:00: [place] 00 [facility] AMITIZA 24 2020-0 Yes [facility] mcg capsule 9-14 ity of 00:00: [place] 00 [facility] AMITIZA 24 2020-0 Yes Univers mcg capsule 9-14 ity of 00:00: [place] 00 [facility] AMITIZA 24 2020-0 Yes Univers mcg capsule 9-14 ity of 00:00: [place] 00 [facility] AMITIZA 24 2020-0 Yes [facility] mcg capsule 9-14 ity of 00:00: [place] 00 [facility] AMITIZA 24 2020-0 Yes Univers mcg capsule 9-14 ity of 00:00: [place] 00 [facility] AMITIZA 24 2019-0 Yes Univers mcg capsule 9-14 ity of 00:00: [place] 00 [facility] AMITIZA 24 2019-0 Yes Univers mcg capsule 9-14 ity of 00:00: [place] [address] [facility] TRINTELLIX 2020-0 No Memoria 20 mg Tab 8-12 l 00:00: [place] TRINTELLIX 2020-0 Yes [facility] 20 mg Tab 8-12 ity of 00:00: [place] [address] [facility] TRINTELLIX 2020-0 Yes [facility] 20 mg Tab 8-12 ity of 00:00: [place] [address] [facility] TRINTELLIX 2020-0 Yes [facility] 20 mg Tab 8-12 ity of 00:00: [place] [address] [facility] TRINTELLIX 2020-0 Yes [facility] 20 mg Tab 8-12 ity of 00:00: [place] [address] [facility] TRINTELLIX 2020-0 Yes [facility] 20 mg Tab 8-12 ity of 00:00: [place] 00 [facility] TRINTELLIX 2020-0 Yes [facility] 20 mg Tab 8-12 ity of 00:00: [place] 00 [facility] TRINTELLIX 2020-0 Yes [facility] 20 mg Tab 8-12 ity of 00:00: [place] 00 [facility] TRINTELLIX 2020-0 Yes [facility] 20 mg Tab 8-12 ity of 00:00: [place] 00 [facility] TRINTELLIX 2020-0 Yes [facility] 20 mg Tab 8-12 ity of 00:00: [place] 00 [facility] TRINTELLIX 2020-0 Yes [facility] 20 mg Tab 8-12 ity of 00:00: [place] 00 [facility] TRINTELLIX 2020-0 Yes Univers 20 mg Tab 8-12 ity of 00:00: [place] 00 [facility] TRINTELLIX 2020-0 2020- No Univer s 20 mg Tab 8-12 05-25 ity of 00:00: 00:00 [place] 00 :00 [facility] Sodium 2020-0 No 1,000 mL, Memori a Chloride 6-17 1000 l 0.9% 05:02: ml/hr, Mohan (Bolus) IV 00 Infuse Over: 1 hr, Route: IV, 1,000, Drug form: INJ, ONCE, Priority: STAT, Dosing Weight 56.002 kg, Start date: 04/25/20 0:02:00 CDT, Stop date: 04/25/20 0:02:00 CDT, 0 Sodium 2020-0 No 1,000 mL, Memori a Chloride 6-17 1000 l 0.9% 05:02: ml/hr, [place] (Bolus) IV 00 Infuse Over: 1 hr, Route: IV, 1,000, Drug form: INJ, ONCE, Priority: STAT, Dosing Weight 56.002 kg, Start date: 04/25/20 0:02:00 CDT, Stop date: 04/25/20 0:02:00 CDT, 0 Benadryl 0 No Notes: Memoria 5-14 (Same as: l 18:01: Benadryl) Phenergan 2019-0 No Notes: Memori a 5-14 (Same as: l 18:01: Phenergan) Benadryl 2019-0 No Notes: Memoria 5-14 (Same as: l 18:01: Benadryl) Phenergan 2019-0 No Notes: Memori a 5-14 (Same as: l 18:01: Phenergan) carvedilol 2020-0 Yes 3.125 mg = M emoria 3.13 MG 5-14 1 tab, PO, l Oral Tablet 15:32: BID, # 60 H ermann [Coreg] 00 tab, 0 Refill(s) Coreg 3.125 2020-0 Yes 3.125 mg = Memoria mg oral 5-14 1 tab, PO, l tablet 15:32: BID, # 60 Salvatore n 00 tab, 0 Refill(s) carvedilol 2020-0 Yes 3.125 mg = M emoria 3.13 [...] tab, PO, l tablet 15:31: Daily, # [place] 00 90 tab, 3 Refill(s) lisinopril 2020-0 Yes 20 mg = 1 Me moria 20 mg oral 5-14 tab, PO, l tablet 15:31: Daily, # Mohan 00 90 tab, 3 Refill(s) gabapentin 2020-0 No Notes: Memor ia 300 MG Oral 5-14 (Same as: l Capsule 02:00: Neurontin) Herm gabriel 00 gabapentin 2020-0 No Notes: Memor ia 300 MG Oral 5-14 (Same as: l Capsule 02:00: Neurontin) Herm gabriel 00 Acetaminoph 2020-0 Yes 1,000 mg = Memoria en 500 MG 5-13 2 tab, PO, l Oral Tablet 23:22: Q6Hnow, 0 H ermann 00 Refill(s) gabapentin 2020-0 Yes 300 mg = 1 M emoria 300 MG Oral 5-13 cap, PO, l Capsule 23:22: Q12H, # 60 Herm gabriel 00 cap, 0 Refill(s) Acetaminoph 2020-0 Yes 1,000 mg = Memoria en 500 MG 5-13 2 tab, PO, l Oral Tablet 23:22: Q6Hnow, 0 H ermann 00 Refill(s) gabapentin 2020-0 Yes 300 mg = 1 M emoria 300 MG Oral 5-13 cap, PO, l Capsule 23:22: Q12H, # 60 Herm gabriel 00 cap, 0 Refill(s) lisinopril 2020-0 No 20 mg = 1 Me moria 20 mg oral 5-13 tab, PO, l tablet 23:13: Daily, # [place] 00 90 tab, 3 Refill(s) carvedilol 2020-0 No 12.5 mg = Me moria 12.5 mg 5-13 1 tab, PO, l oral tablet 23:13: Q12H, # 90 [place] 00 tab, 1 Refill(s) Valproic 2020-0 Yes 500 mg = 2 Mem oria Acid 250 MG 5-13 cap, PO, l Oral 23:13: BID, # 90 [place] Capsule 00 cap, 0 Refill(s) lisinopril 2020-0 No 20 mg = 1 Me moria 20 mg oral 5-13 tab, PO, l tablet 23:13: Daily, # Mohan 00 90 tab, 3 Refill(s) carvedilol 2020-0 No 12.5 mg = Me moria 12.5 [...] (4 gm/day). (Same as: Tylenol Extra Strength) Tylenol 2019-0 No Notes: Max Mj chadwick 5-13 acetaminop l 23:00: hen 4000 Mohan 00 mg/day (4 gm/day). (Same as: Tylenol Extra Strength) Hydromorpho 2019-0 No Notes: Mj chadwick ne 5-13 (Same as: l 22:18: Dilaudid) [place] 00 Hydromorpho 2019-0 No Notes: Mj chadwick ne 5-13 (Same as: l 22:18: Dilaudid) [place] 00 Lisinopril 2019-0 No Notes: Memor ia 5-13 (Same as: l 19:48: Prinivil, Mohan 00 Zestril) Lisinopril 2019-0 No Notes: Memor ia 5-13 (Same as: l 19:48: Prinivil, [place] 00 Zestril) Lidocaine 2019-0 Yes Notes: Memori a Hydrochlori 5-13 (Same as: l de 10 MG/ML 15:11: Xylocaine) Mohan Injectable 00 Solution Versed 2019-0 No Notes: Memoria 5-13 (Same as: l 15:11: Versed) [place] 00 MEDICATION WASTE Product Size: 2 mg Product Wasted: ___ mg Lidocaine 2019-0 Yes Notes: Memori a Hydrochlori 5-13 (Same as: l de 10 MG/ML 15:11: Xylocaine) Mohan Injectable 00 Solution Versed No Notes: Memoria 5-13 (Same as: l 15:11: Versed) [place] 00 MEDICATION WASTE Product Size: 2 mg Product Wasted: ___ mg Lisinopril No Notes: Memor ia 5-13 (Same as: l 14:00: Prinivil, Mohan 00 Zestril) Lisinopril No Notes: Memor ia 5-13 (Same as: l 14:00: Prinivil, Mohan 00 Zestril) Lisinopril No Notes: Memor ia 5-13 (Same as: l 11:54: Prinivil, Mohan 00 Zestril) Lisinopril No Notes: Memor ia 5-13 (Same as: l 11:54: Prinivil, [place] 00 Zestril) carvedilol No Notes: Memor ia 5-13 Give with l 02:00: food. Mohan 00 (Same As: Coreg) carvedilol No Notes: Memor ia 5-13 Give with l 02:00: food. [place] 00 (Same As: Coreg) Valproic No Notes: Memoria Acid 250 MG 5-12 (Same As: l Oral 22:00: Depakene) [place] Capsule 00 (Do Not Crush) Hazardous Drug Group 3:Reproduc tive risk Hazardous Drug -- Refer to safe handling procedure PPE Matrix Valproic No Notes: Memoria Acid 250 MG 5-12 (Same As: l Oral 22:00: Depakene) [place] Capsule 00 (Do Not Crush) Hazardous Drug Group 3:Reproduc tive risk Hazardous Drug -- Refer to safe handling procedure PPE Matrix Hydralazine No Notes: Mj chadwick Hydrochlori 5-12 (Same as: l de 50 MG 21:52: Apresoline Her bailey Oral Tablet 00 ) May interfere w/enteral feedings Take With Food Hydralazine No Notes: Mj chadwick Hydrochlori 5-12 (Same as: l de 50 MG 21:52: Apresoline Her bailey Oral Tablet 00 ) May interfere w/enteral feedings Take With Food Iohexol 2019-0 No Notes: Memoria 5-12 (same l 17:51: as:Omnipaq Mohan 00 ue 350). WASTE: F/P - Black; E - Municipal Trash Bin Iohexol 2019-0 No Notes: Memoria 5-12 (same l 17:51: as:Omnipaq Mohan 00 ue 350). WASTE: F/P - Black; E - Municipal Trash Bin Lisinopril 2020-0 No Notes: Memor ia 5-12 (Same as: l 14:46: Prinivil, Mohan 00 Zestril) Lisinopril 2019-0 No Notes: Memor ia 5-12 (Same as: l 14:46: Prinivil, Mohan 00 Zestril) carvedilol 2019-0 No Notes: Memor ia 5-12 Give with l 14:00: food. Mohan (Same As: Coreg) Lovenox 2019-0 No Notes: Memoria 5-12 (Same as: l 14:00: Lovenox) [place] 00 carvedilol 2019-0 No Notes: Memor ia 5-12 Give with l 14:00: food. [place] (Same As: Coreg) Lovenox 2019-0 No Notes: Memoria 5-12 (Same as: l 14:00: Lovenox) [place] 00 Potassium 2019-0 No Notes: Memori a Chloride 5-12 (Same as: l 07:56: KCL) Infuse no faster than 10 mEq/hr if given peripheral ly. sodium 2019-0 No Notes: Memoria phosphate 5-12 Infuse l 07:56: over 4 [place] 00 hour. Do not infuse phosphorou s concurrent ly in the same line as TPN or IVF that contains calcium. For double lumen central lines, phosphorou s may be infused in a separate lumen from TPN. potassium 2019-0 No Notes: Memori a phosphate 5-12 (Same as: l 07:56: K Phosphate. ) Do not infuse phosphorou s concurrent ly in the same line as TPN or IVF that contains calcium. For double lumen central lines, phosphorou s may be infused in a separate lumen from TPN. 1 mMol phoshate has 1.47 mEq potassium Infuse over 4 hours potassium 2020-0 No Notes: Memori a phosphate-s 5-12 (Same as: l odium 07:56: Phos-NaK) [place] phosphate 00 Each 1.5 250 mg-280 gm pkt has mg-160 mg 250mg oral powder phosphorou for s. Mix reconstitut w/2.5oz ion water and stir. Magnesium 2020-0 No Notes: Memori a Sulfate - WASTE: F/P l 07:56: - Sink; E [place] - Municipal Trash Bin Magnesium 2020-0 No Notes: Memori a Oxide 5-12 (Same as: l 07:56: Mag-Ox Mohan 00 400) Magnesium oxide [id number] g elemental magnesium Dose=____m g magnesium oxide (___mg elemental magnesium) Calcium 2020-0 No Notes: Memoria Gluconate - WASTE: F/P l 07:56: - Sink; E Mohan - Municipal Trash Bin Calcium 2020-0 No Notes: Memoria Carbonate - (Same As: l 500 MG 07:56: Tums) Mhoan Chewable 00 Calcium Tablet Carbonate 500 mg = 200 mg elemental calcium Dose = mg calcium carbonate ( mg elemental calcium) Potassium 2020-0 No Notes: Memori a Chloride -12 (Same as: l 07:56: KCL) [place] 00 Infuse no faster than 10 mEq/hr if given peripheral ly. sodium 2020-0 No Notes: Memoria phosphate 5-12 Infuse l 07:56: over 4 [place] 00 hour. Do not infuse phosphorou s concurrent ly in the same line as TPN or IVF that contains calcium. For double lumen central lines, phosphorou s may be infused in a separate lumen from TPN. potassium 2020-0 No Notes: Memori a phosphate 5-12 (Same as: l 07:56: K Mohan 00 Phosphate. ) Do not infuse phosphorou s concurrent ly in the same line as TPN or IVF that contains calcium. For double lumen central lines, phosphorou s may be infused in a separate lumen from TPN. 1 mMol phoshate has 1.47 mEq potassium Infuse over 4 hours potassium 2020-0 No Notes: Memori a phosphate-s 5-12 (Same as: l odium 07:56: Phos-NaK) phosphate 00 Each 1.5 250 mg-280 gm pkt has mg-160 mg 250mg oral powder phosphorou for s. Mix reconstitut w/2.5oz ion water and stir. Magnesium 2019-0 No Notes: Memori a Sulfate 03-20 WASTE: F/P l 07:56: - Sink; E - Municipal Trash Bin Magnesium 2019- No Notes: Memori a Oxide - (Same as: l 07:56: Mag-Ox [place] 00 400) Magnesium oxide [id number] g elemental magnesium Dose=____m g magnesium oxide (___mg elemental magnesium) Calcium No Notes: Memoria Gluconate 03-20 WASTE: F/P l 07:56: - Sink; E - Municipal Trash Bin Calcium 2019- No Notes: Memoria Carbonate 03-20 (Same As: l 500 MG 07:56: Tums) Mohan Chewable 00 Calcium Tablet Carbonate 500 mg = 200 mg elemental calcium Dose = mg calcium carbonate ( mg elemental calcium) atorvastati No Notes: Mj chadwick n 5-12 (Same As: l 02:00: Lipitor) ropinirole No Notes: Memor ia 5-12 (Same as: l 02:00: Requip) atorvastati 2019-0 No Notes: Mj chadwick n 5-12 (Same As: l 02:00: Lipitor) ropinirole 2019-0 No Notes: Memor ia 5-12 (Same as: l 02:00: Requip) Dilaudid 2019-0 No Notes: Memoria 5-11 (Same as: l 20:30: Dilaudid) Dilaudid 2019- No Notes: Memoria 5-11 (Same as: l 20:30: Dilaudid) Lisinopril 2019- No Notes: Memor ia 5-11 (Same as: l 20:29: Prinivil, Mohan 00 Zestril) Lisinopril 0 No Notes: Memor ia 5-11 (Same as: l 20:29: Prinivil, Mohan 00 Zestril) vortioxetin 2020-0 Yes 20 mg = [...] 90 tab, 0 coated Refill(s) tablet trazodone 2020-0 No 150 mg = 1 Me moria 150 mg oral 5-11 tab, PO, l tablet 20:25: Bedtime, # Donna nn 00 90 tab, 0 Refill(s) Hydromorpho 2020-0 Yes 4 mg = 1 Me moria ne 5-11 tab, PO, l Hydrochlori 20:25: TID, # 42 H ermann de 4 MG 00 tab, 0 Oral Tablet Refill(s) [Dilaudid] levothyroxi 2020-0 Yes 50 Memori a ne 50 mcg 5-11 microgram l (0.05 mg) 20:25: = 1 tab, Herm gabriel oral tablet 00 PO, QAM, # 90 tab, 0 Refill(s) vortioxetin 2020-0 Yes 20 mg = 1 [...] tab, PO, l oral 20:25: Daily, # [place] enteric 00 90 tab, 0 coated Refill(s) tablet trazodone 2020-0 No 150 mg = 1 Me moria 150 mg oral 5-11 tab, PO, l tablet 20:25: Bedtime, # Donna nn 00 90 tab, 0 Refill(s) Hydromorpho 2020-0 Yes 4 mg = 1 Me moria ne 5-11 tab, PO, l Hydrochlori 20:25: TID, # 42 H ermann de 4 MG 00 tab, 0 Oral Tablet Refill(s) [Dilaudid] levothyroxi 2020-0 Yes 50 Memori a ne 50 mcg 5-11 microgram l (0.05 mg) 20:25: = 1 tab, Herm gabriel oral tablet 00 PO, QAM, # 90 tab, 0 Refill(s) Lexapro 2020-0 No Notes: Memoria 5-11 (Same as: l 17:00: Lexapro) Lexapro 2020-0 No Notes: Memoria 5-11 (Same as: l 17:00: Lexapro) Clonazepam 2019-0 No Notes: Memor ia 5-11 (Same As: l 14:20: KlonoPIN) Hazardous Drug Group 3:Reproduc tive risk Hazardous Drug -- Refer to safe handling procedure PPE Matrix Clonazepam 2019-0 No Notes: Memor ia 5-11 [...] day, Stop date: 04/17/20 9:00:00 CDT Trintellix 2020-0 No 10 mg, 1 Mem oria 5-11 tab, l 14:00: Route: PO, Drug form: TAB, Daily, Dosing Weight 63.6, kg, Start date: 03/19/20 9:00:00 CDT, Duration: 30 day, Stop date: 04/17/20 9:00:00 CDT pantoprazol 2020-0 No 20 mg, 1 Me moria e 5-11 tab, l 14:00: Route: PO, Drug form: ECTAB, Daily, Dosing Weight 63.6, kg, Start date: 03/19/20 9:00:00 CDT, Duration: 30 day, Stop date: 04/17/20 9:00:00 CDT Trintellix 2020-0 No 10 mg, 1 Mem oria 5-11 tab, l 14:00: Route: PO, [place] Drug form: TAB, Daily, Dosing Weight 63.6, kg, Start date: 03/19/20 9:00:00 CDT, Duration: 30 day, Stop date: 04/17/20 9:00:00 CDT Hydralazine 2019-0 No Notes: Mj chadwick Hydrochlori 5-11 (Same as: l de 50 MG 13:00: Apresoline Her bailey Oral Tablet 00 ) May interfere w/enteral feedings Take With Food Hydralazine 2019-0 No Notes: Mj chadwick Hydrochlori 5-11 (Same as: l de 50 MG 13:00: Apresoline Her bailey Oral Tablet 00 ) May interfere w/enteral feedings Take With Food ropinirole 2019-0 No Notes: Memor ia 5-11 (Same as: l 12:42: Requip) ropinirole 2019-0 No Notes: Memor ia 5-11 (Same as: l 12:42: Requip) Thyroxine 2019-0 No Notes: Memori a 5-11 Take 1 l 12:30: hour [place] 00 before or 2 hours after meal; Enteral feeds may interefere with the absorption of this medication .(Same as:Levothr oid, Synthroid) Thyroxine No Notes: Memori a 5-11 Take 1 l 12:30: hour [place] 00 before or 2 hours after meal; Enteral feeds may interefere with the absorption of this medication .(Same as:Levothr oid, Synthroid) Acetaminoph No Notes: Do M emoria en 300 MG / 5-11 not exceed l Codeine 11:22: 4gm/day of Herm gabriel Phosphate 00 acetaminop 30 MG Oral hen. (Same Tablet as: [Tylenol Tylenol with with Codeine #3] Codeine # 3) Acetaminoph No Notes: Do M emoria en 300 MG / 5-11 not exceed l Codeine 11:22: 4gm/day of Herm gabriel Phosphate 00 acetaminop 30 MG Oral hen. (Same Tablet as: [Tylenol Tylenol with with Codeine #3] Codeine # 3) Nitroglycer 2019-0 No Notes: Mj chadwick in 03-19 (Same l 11:20: as:Nitroqu Mohan 00 ick, Nitrostat) "Do Not Crush" Sublingual tablet Ativan 0 No Notes: Memoria 03-19 (Same as: l 11:20: Ativan) Mohan 00 Nitroglycer 2019-0 No Notes: Mj chadwick in 03-19 (Same l 11:20: as:Nitroqu Mohan ick, Nitrostat) "Do Not Crush" Sublingual tablet Ativan No Notes: Memoria 03-19 (Same as: l 11:20: Ativan) [place] 00 Hydralazine 2019-0 No Notes: Mj chadwick - (Same as: l 10:26: Apresoline [place] ) Push over 5 minutes Hydralazine 2019-0 No Notes: Mj chadwick - (Same as: l 10:26: Apresoline Mohan ) Push over 5 minutes Keppra 2019-0 No 1,000 mg, Memori a 03-19 Route: l 10:09: IVPB, Drug [place] 00 form: INJ, ONCE, Dosing Weight 63.6, kg, Loading Dose, Priority: STAT, Start date: 03/19/20 5:09:00 CDT, Stop date: 03/19/20 5:09:00 CDT Keppra 2019-0 No 1,000 mg, Memori a 03-19 Route: l 10:09: IVPB, Drug [place] 00 form: INJ, ONCE, Dosing Weight 63.6, kg, Loading Dose, Priority: STAT, Start date: 03/19/20 5:09:00 CDT, Stop date: 03/19/20 5:09:00 CDT Keppra 2019-0 No 1,000 mg, Memori a 03-19 Route: l 10:06: IVPB, Drug [place] 00 form: INJ, ONCE, Dosing Weight 63.6, kg, Loading Dose, Start date: 03/19/20 5:06:00 CDT, Stop date: 03/19/20 5:06:00 CDT Keppra 2020-0 No 1,000 mg, Memori a 5-11 Route: l 10:06: IVPB, Drug form: INJ, ONCE, Dosing Weight 63.6, kg, Loading Dose, Start date: 03/19/20 5:06:00 CDT, Stop date: 03/19/20 5:06:00 CDT Nicardipine 2020-0 No Notes: Mj chadwick 5-11 Same as: l 09:32: Cardene Concentrat ion: (0.2 mg /1 ml ) Nicardipine 2020-0 No Notes: Mj chadwick 5-11 Same as: l 09:32: Cardene [place] 00 Concentrat ion: (0.2 mg /1 ml ) Morphine 2019-0 No Notes: Memoria 5-11 (Same l 07:02: as:MORPhin Mohan 00 e Sulfate) Ondansetron 2019-0 No Notes: Mj chadwick 5-11 (Same as: l 07:02: Zofran) Mohan 00 MEDICATION WASTE Product Size: 4 mg Product Wasted: ___ mg Morphine 2020-0 No Notes: Memoria 5-11 (Same l 07:02: as:MORPhin [place] 00 e Sulfate) Ondansetron 2020-0 No Notes: Mj chadwick 5-11 (Same as: l 07:02: Zofran) Mohan 00 MEDICATION WASTE Product Size: 4 mg Product Wasted: ___ mg Aspirin 2020-0 No 324 mg, Memoria 5-11 Route: l 06:52: CHEW, Drug Mohan 00 form: CHEWTAB, ONCE, Dosing Weight 64.3, kg, Priority: STAT, Start date: 03/19/20 1:52:00 CDT, Stop date: 03/19/20 1:52:00 CDT Aspirin 2020-0 No 324 mg, Memoria 5-11 Route: l 06:52: CHEW, Drug form: CHEWTAB, ONCE, Dosing Weight 64.3, kg, Priority: STAT, Start date: 03/19/20 1:52:00 CDT, Stop date: 03/19/20 1:52:00 CDT Ativan 2020-0 No Notes: Memoria 5-11 (Same as: l 05:28: Ativan) Ativan 0 No Notes: Memoria 5-11 (Same as: l 05:28: Ativan) atorvastati 2018-11 Yes Take 20 mg Memoria n 20 mg 0-10 by mouth. l tablet 00:00: atorvastati 2018-11 Yes 20mg Take 20 mg Univers n 20 mg 0-10 by mouth. ity of tablet 00:00: [facility] atorvastati 2018-11 Yes 20mg Take 20 mg Univers n 20 mg 0-10 by mouth. ity of tablet 00:00: [facility] atorvasta 2018-11 Yes 20mg Take 20 mg Univers n 20 mg 0-10 by mouth. ity of tablet 00:00: [facility] atorvasta 2018-11 Yes 20mg Take 20 mg Univers n 20 mg 0-10 by mouth. ity of tablet 00:00: [facility] atorvasta 2018-11 Yes 20mg Take 20 mg Univers n 20 mg 0-10 by mouth. ity of tablet 00:00: [facility] atorvasta 2018-11 Yes 20mg Take 20 mg Univers n 20 mg 0-10 by mouth. ity of tablet 00:00: [facility] atorvasta 2018-11 Yes 20mg Take 20 mg Univers n 20 mg 0-10 by mouth. ity of tablet 00:00: [facility] atorvastati 2018-11 Yes 20mg Take 20 mg Univers n 20 mg 0-10 by mouth. ity of tablet 00:00: [facility] atorvastati 2018-11 Yes 20mg Take 20 mg Univers n 20 mg 0-10 by mouth. ity of tablet 00:00: [facility] atorvastati 2018-11 Yes 20mg Take 20 mg Univers n 20 mg 0-10 by mouth. ity of tablet 00:00: [facility] atorvasta 2018-11 Yes 20mg Take 20 mg Univers n 20 mg 0-10 by mouth. ity of tablet 00:00: [facility] atorvastati 2018-11 Yes 20mg Take 20 mg Univers n 20 mg 0-10 by mouth. ity of tablet 00:00: [facility] atorvastati 2018-11 Yes 20mg Take 20 mg Univers n 20 mg 0-10 by mouth. ity of tablet 00:00: [facility] 2018-11 Yes 20mg Take 20 mg Univers n 20 mg 0-10 by mouth. ity of tablet 00:00: [facility] 2018-11 Yes 20mg Take 20 mg Univers n 20 mg 0-10 by mouth. ity of tablet 00:00: [facility] 2018-11 Yes 20mg Take 20 mg Univers n 20 mg 0-10 by mouth. ity of tablet 00:00: [facility] 2018-11 Yes 20mg Take 20 mg Univers n 20 mg 0-10 by mouth. ity of tablet 00:00: [place] [facility] 2018-11 Yes 20mg Take 20 mg Univers n 20 mg 0-10 by mouth. ity of tablet 00:00: [facility] 2018-11 Yes 20mg Take 20 mg Univers n 20 mg 0-10 by mouth. ity of tablet 00:00: [place] [facility] 2018-11 Yes 20mg Take 20 mg Univers n 20 mg 0-10 by mouth. ity of tablet 00:00: [place] [facility] 2018-11 Yes 20mg Take 20 mg Univers n 20 mg 0-10 by mouth. ity of tablet 00:00: [facility] 2018-11 Yes 20mg Take 20 mg Univers n 20 mg 0-10 by mouth. ity of tablet 00:00: [place] [facility] 2018-11 Yes 20mg Take 20 mg Univers n 20 mg 0-10 by mouth. ity of tablet 00:00: [facility] 2018-11 Yes 20mg Take 20 mg Univers n 20 mg 0-10 by mouth. ity of tablet 00:00: [place] [facility] 2018-11 Yes 20mg Take 20 mg Univers n 20 mg 0-10 by mouth. ity of tablet 00:00: [place] [facility] 2018-11 Yes 20mg Take 20 mg Univers n 20 mg 0-10 by mouth. ity of tablet 00:00: [place] [facility] 2018-11 Yes 20mg Take 20 mg Univers n 20 mg 0-10 by mouth. ity of tablet 00:00: [facility] atorvastati 2018-11 Yes 20mg Take 20 mg Univers n 20 mg 0-10 by mouth. ity of tablet 00:00: [facility] atorvastati 2018-11 Yes 20mg Take 20 mg Univers n 20 mg 0-10 by mouth. ity of tablet 00:00: [facility] atorvastati 2018-11 Yes 20mg Take 20 mg Univers n 20 mg 0-10 by mouth. ity of tablet 00:00: [facility] atorvastati 2018-11 Yes 20mg Take 20 mg Univers n 20 mg 0-10 by mouth. ity of tablet 00:00: [facility] atorvastati 2018-11 Yes 20mg Take 20 mg Univers n 20 mg 0-10 by mouth. ity of tablet 00:00: [facility] atorvastati 2018-11 Yes 20mg Take 20 mg Univers n 20 mg 0-10 by mouth. ity of tablet 00:00: [facility] atorvastati 2018-11 Yes 20mg Take 20 mg Univers n 20 mg 0-10 by mouth. ity of tablet 00:00: [facility] ondansetron No Route: IV, Memoria (ANES) 08-03 Drug form: l 22:55: INJ, ONCE, Stop date: 08/03/19 17:55:00 CDT neostigmine 0 No Route: IV, Memoria (ANES) 08-03 Drug form: l 22:55: INJ, ONCE, Stop date: 08/03/19 17:55:00 CDT ondansetron 2018-0 No Route: IV, Memoria (ANES) 08-03 Drug form: l 22:55: INJ, ONCE, Stop date: 08/03/19 17:55:00 CDT neostigmine 2018-0 No Route: IV, Memoria (ANES) 08-03 Drug form: l 22:55: INJ, ONCE, Stop date: 08/03/19 17:55:00 CDT protamine No Route: IV, Me moria (ANES) 08-03 Drug form: l 22:41: INJ, ONCE, Stop date: 08/03/19 17:41:00 CDT protamine No Route: IV, Me moria (ANES) 08-03 Drug form: l 22:41: INJ, ONCE, [place] Stop date: 08/03/19 17:41:00 CDT esmolol No Route: IV, Mj chadwick (ANES) 08-03 Drug form: l 22:36: INJ, ONCE, [place] Stop date: 08/03/19 17:36:00 CDT esmolol No Route: IV, Mj chadwick (ANES) 08-03 Drug form: l 22:36: INJ, ONCE, [place] Stop date: 08/03/19 17:36:00 CDT heparin No Route: IV, Mj chadwick (ANES) 08-03 Drug form: l 22:16: INJ, ONCE, [place] 00 Stop date: 08/03/19 17:16:00 CDT vasopressin No Route: IV, Memoria (ANES) + 08-03 Drug form: l sodium 22:16: INJ, ONCE, Donna nn chloride Stop date: (ANES) 08/03/19 mL 17:16:00 CDT heparin No Route: IV, Mj chadwick (ANES) 08-03 Drug form: l 22:16: INJ, ONCE, [place] Stop date: 08/03/19 17:16:00 CDT vasopressin No Route: IV, Memoria (ANES) + 08-03 Drug form: l sodium 22:16: INJ, ONCE, Donna nn chloride Stop date: (ANES) 08/03/19 mL 17:16:00 CDT lidocaine No Route: IV, Me moria (ANES) 08-03 Drug form: l 21:51: INJ, ONCE, Mohan Stop date: 08/03/19 16:51:00 CDT fentaNYL No Route: IV, Mem oria (ANES) 08-03 Drug form: l 21:51: INJ, ONCE, [place] Stop date: 08/03/19 16:51:00 CDT rocuronium No Route: IV, M emoria (ANES) 08-03 Drug form: l 21:51: INJ, ONCE, Stop date: 08/03/19 16:51:00 CDT propofol 2018-0 No Route: IV, Mem oria (ANES) 08-03 Drug form: l 21:51: INJ, ONCE, Stop date: 08/03/19 16:51:00 CDT lidocaine 2018-0 No Route: IV, Me moria (ANES) 08-03 Drug form: l 21:51: INJ, ONCE, Stop date: 08/03/19 16:51:00 CDT fentaNYL 2018-0 No Route: IV, Mem oria (ANES) 08-03 Drug form: l 21:51: INJ, ONCE, Stop date: 08/03/19 16:51:00 CDT rocuronium 2018-0 No Route: IV, M emoria (ANES) 08-03 Drug form: l 21:51: INJ, ONCE, Stop date: 08/03/19 16:51:00 CDT propofol 2018-0 No Route: IV, Mem oria (ANES) 08-03 Drug form: l 21:51: INJ, ONCE, Stop date: 08/03/19 16:51:00 CDT midazolam 2018-0 No Route: IV, Me moria (ANES) 08-03 Drug form: l 21:45: SOLN, Mohan , Stop date: 08/03/19 16:45:00 CDT glycopyrrol 2018-0 No Route: IV, Memoria ate (ANES) 08-03 Drug form: l 21:45: INJ, ONCE, Stop date: 08/03/19 16:45:00 CDT midazolam 2018-0 No Route: IV, Me moria (ANES) 08-03 Drug form: l 21:45: SOLN, Mohan ONCE, Stop date: 08/03/19 16:45:00 CDT glycopyrrol 2018-0 No Route: IV, Memoria ate (ANES) 08-03 Drug form: l 21:45: INJ, ONCE, Stop date: 08/03/19 16:45:00 CDT norepinephr 2018-0 No Route: IV, Memoria ine (ANES) 08-03 Drug form: l 21:40: INJ, ONCE, Stop date: 08/03/19 16:40:00 CDT norepinephr No Route: IV, Memoria ine (ANES) 08-03 Drug form: l 21:40: INJ, ONCE, Stop date: 08/03/19 16:40:00 CDT ceFAZolin No Route: IV, Me moria (ANES) 08-03 Drug form: l 21:35: INJ, ONCE, Stop date: 08/03/19 16:35:00 CDT ceFAZolin No Route: IV, Me moria (ANES) 9 Drug form: l 21:35: INJ, ONCE, Stop date: 08/03/19 16:35:00 CDT Isolyte S No Route: IV, Me moria PH 7.4 9-25 Total l (ANES) 1000 20:30: Volume: Her bailey mL 00 1,000, Start date: 08/03/19 15:30:00 CDT, Stop date: 08/03/19 16:30:00 CDT Isolyte S No Route: IV, Me moria PH 7.4 9-25 Total l (ANES) 1000 20:30: Volume: Her bailey mL 00 1,000, Start date: 08/03/19 15:30:00 CDT, Stop date: 08/03/19 16:30:00 CDT 11/10 NS No 1,000 mL, Memori a 1,000 mL 08-03 Rate: 100 l 19:31: ml/hr, [place] 00 Infuse over: 10 hr, Route: IV, Dosing Weight 68.001 kg, Total Volume: 1,000, Start date: 08/03/19 14:31:00 CDT, Duration: 30 day, Stop date: 09/02/19 14:30:00 CDT, 1.79, m2, 0 11/10 NS 0 No 1,000 mL, Memori a 1,000 mL 9-25 Rate: 100 l 19:31: ml/hr, [place] 00 Infuse over: 10 hr, Route: IV, Dosing Weight 68.001 kg, Total Volume: 1,000, Start date: 08/03/19 14:31:00 CDT, Duration: 30 day, Stop date: 09/02/19 14:30:00 CDT, 1.79, m2, 0 Versed No Notes: Memoria 08-03 Same as: l 18:15: Versed ( Mohan Preservati ve Free) MEDICATION WASTE Product Size: 5 mg Product Wasted: ___ mg Versed No Notes: Memoria 08-03 Same as: l 18:15: Versed ( Mohan 00 Preservati ve Free) MEDICATION WASTE Product Size: [...] 9-25 Daily, 0 l oral 16:26: Refill(s) Mohan capsule 00 Probiotic Yes 1 cap, PO, Me moria Formula 9-25 Daily, 0 l oral 16:26: Refill(s) [place] capsule 00 Magnesium Yes 400 mg, Memor ia Sulfate 9-25 PO, ONCE, l 16:25: 0 Mohan 00 Refill(s) Magnesium Yes 400 mg, Memor ia Sulfate 9-25 PO, ONCE, l 16:25: 0 [place] 00 Refill(s) biotin 1000 Yes 1,000 Memor ia mcg oral 9-25 microgram l tablet 16:24: = 1 tab, Mohan 00 PO, Daily, # 30 tab, 0 Refill(s) Non-Formula Yes 1 cap, PO, Memoria ry Home 9-25 Daily, l Medication 16:24: Refill(s) He rmann 00 0 biotin 1000 Yes 1,000 Memor ia mcg oral 9-25 microgram l tablet 16:24: = 1 tab, Mohan 00 PO, Daily, # 30 tab, 0 Refill(s) Non-Formula 2019-0 Yes 1 cap, PO, Memoria ry Home 9-25 Daily, l Medication 16:24: Refill(s) He rmann 00 0 Folic Acid 2019-0 Yes 0.4 mg = 1 M emoria 0.4 MG Oral 9-25 tab, PO, l Tablet 16:23: Daily, # [place] 00 100 tab, 0 Refill(s) Vitamin 2019- Yes 5,000 Memoria B-12 5000 9-25 microgram l mcg 16:23: = 1 tab, [place] sublingual 00 SL, Daily, tablet 0 Refill(s) Folic Acid 2018- Yes 0.4 mg = 1 M emoria 0.4 MG Oral 9-25 tab, PO, l Tablet 16:23: Daily, # [place] 00 100 tab, 0 Refill(s) Vitamin 2019-0 Yes 5,000 Memoria B-12 5000 9-25 microgram l mcg 16:23: = 1 tab, Mohan sublingual 00 SL, Daily, tablet 0 Refill(s) Zyrtec 2019-0 Yes 5 mg, Memoria 9-25 Daily, 0 l 16:21: Refill(s) [place] 00 Zyrtec 2019-0 Yes 5 mg, Memoria 9-25 Daily, 0 l 16:21: Refill(s) Mohan 00 Promethazin 2018- Yes 25 mg = 1 M emoria e 9-25 tab, PO, l Hydrochlori 16:14: Q12H, PRN H ermann de 25 MG 00 for motion Oral Tablet sickness, # 60 tab, 0 Refill(s) Promethazin 2019- Yes 25 mg = 1 M emoria e 9-25 tab, PO, l Hydrochlori 16:14: Q12H, PRN H ermann de 25 MG 00 for motion Oral Tablet sickness, # 60 tab, 0 Refill(s) clonazePAM 2019-0 Yes 1 mg = 1 Mem oria 1 mg oral 9-25 tab, PO, l tablet 16:13: PRN, PRN Mohan 00 Anxiety, # 30 tab, 0 Refill(s) clonazePAM 2019-0 Yes 1 mg = 1 Mem oria 1 mg oral 9-25 tab, PO, l tablet 16:13: PRN, PRN Mohan 00 Anxiety, # 30 tab, 0 Refill(s) rOPINIRole 2019-0 Yes 2 mg = 1 Mem oria 2 mg oral 9-25 tab, PO, l tablet 16:12: Bedtime, # Donna nn 00 90 tab, 1 Refill(s) rOPINIRole 2019-0 Yes 2 mg = 1 Mem oria 2 mg oral 9-25 tab, PO, l tablet 16:12: Bedtime, # Donna nn 00 90 tab, 1 Refill(s) Trazodone 2019-0 Yes 100 mg = 1 Me moria Hydrochlori 9-25 tab, PO, l de 100 MG 16:11: Bedtime, # He rmann Oral Tablet 00 30 tab, 0 Refill(s) Trazodone 2019-0 Yes 100 mg = 1 Me moria Hydrochlori 9-25 tab, PO, l de 100 MG 16:11: Bedtime, # He rmann Oral Tablet 00 30 tab, 0 Refill(s) pantoprazol 2019-0 Yes 20 mg = 1 M emoria e 20 mg 9-25 tab, PO, l oral 16:10: Daily, # [place] enteric 00 30 tab, 1 coated Refill(s) tablet pantoprazol 2019-0 Yes 20 mg = 1 M emoria e 20 mg 9-25 tab, PO, l oral 16:10: Daily, # Mohan enteric 00 30 tab, 1 coated Refill(s) tablet Sodium 2019-0 No 250 mL, Memoria Chloride 9-25 Rate: To l 0.9% 11:00: prime line [place] (titrate) 00 and flush 250 mL remaining blood products., Dosing Weight 70.1, kg, Route: IV, Total Volume: 250, Start Date: 08/03/19 6:00:00 CDT, Duration: 1 day, Stop date: 08/04/19 5:59:00 CDT, Replace Every: 24 hr, 0 Sodium 2019-0 No 250 mL, Memoria Chloride 9-25 Rate: To l 0.9% 11:00: prime line [place] (titrate) 00 and flush 250 mL remaining blood products., Dosing Weight 70.1, kg, Route: IV, Total Volume: 250, Start Date: 08/03/19 6:00:00 CDT, Duration: 1 day, Stop date: 08/04/19 5:59:00 CDT, Replace Every: 24 hr, 0 Albuterol 2019-0 Yes [place] EVERY 4 Mem oria Neb 7-17 [place] HOURS l 00:00: RESPIRATOR Y Albuterol 2019-0 Yes [place]ani TWICE Memor ia Sulfate 7-17 [place] DAILY l 00:00: NEEDED PRN For Shortness Of Breath Albuterol 2019-0 Yes TWICE Memoria Sulfate 7-15 DAILY l 00:00: NEEDED PRN For Shortness Of Breath Atomoxetine 2019-0 Yes DAILY Memor ia Hcl 7-15 l 00:00: Carvedilol 2019-0 Yes TWICE Memori a 7-15 DAILY l 00:00: Citalopram 2019-0 Yes DAILY Memori a Hydrobromid 7-15 l e 00:00: Furosemide 2019-0 Yes DAILY Memori a 7-15 l 00:00: Hydralazine 2019-0 Yes THREE Memor ia Hcl 7-15 TIMES A l 00:00: DAY Lisinopril 2019-0 Yes DAILY Memori a 7-15 l 00:: Isosorbide 2019-0 Yes THREE Memori a Dinit [...] -acetaminop 5-08 tablet by ity of hen (WaveMAX) 14:50: mouth [place] 7.5-325 mg 10 every 6 Medica l per tablet (six) Branch hours as needed for Pain. HYDROcodone 2018-0 Yes 1{tbl} Take 1 Un christie -acetaminop 5-08 tablet by ity of hen (WaveMAX) 14:50: mouth [place] 7.5-325 mg 10 every 6 Medica l per tablet (six) Branch hours as needed for Pain. HYDROcodone 2018-0 Yes 1{tbl} Take 1 Un christie -acetaminop 5-08 tablet by ity of hen (WaveMAX) 14:50: mouth [place] 7.5-325 mg 10 every 6 Medica l per tablet (six) Branch hours as needed for Pain. HYDROcodone 2018-0 Yes 1{tbl} Take 1 Un christie -acetaminop 5-08 tablet by ity of hen (WaveMAX) 14:50: mouth [place] 7.5-325 mg 10 every 6 Medica l per tablet (six) Branch hours as needed for Pain. HYDROcodone 2018-0 Yes 1{tbl} Take 1 Un christie -acetaminop 5-08 tablet by ity of hen (WaveMAX) 14:50: mouth [place] 7.5-325 mg 10 every 6 Medica l per tablet (six) Branch hours as needed for Pain. HYDROcodone 2018-0 Yes 1{tbl} Take 1 Un christie -acetaminop 5-08 tablet by ity of hen (WaveMAX) 14:50: mouth [place] 7.5-325 mg 10 every 6 Medica l per tablet (six) Branch hours as needed for Pain. HYDROcodone 2018-0 Yes 1{tbl} Take 1 Un christie -acetaminop 5-08 tablet by ity of hen (WaveMAX) 14:50: mouth [place] 7.5-325 mg 10 every 6 Medica l per tablet (six) Branch hours as needed for Pain. HYDROcodone 2018-0 Yes 1{tbl} Take 1 Un christie -acetaminop 5-08 tablet by ity of hen (WaveMAX) 14:50: mouth [place] 7.5-325 mg 10 every 6 Medica l per tablet (six) Branch hours as needed for Pain. HYDROcodone 2018- Yes 1{tbl} Take 1 Un christie -acetaminop 5-08 tablet by ity of hen (NORCO) 14:50: mouth [place] 7.5-325 mg 10 every 6 Medica l per tablet (six) Branch hours as needed for Pain. HYDROcodone 2017-0 Yes 1{tbl} Take 1 Un christie -acetaminop 5-08 tablet by ity of hen (NORCO) 14:50: mouth [place] 7.5-325 mg 10 every 6 Medica l per tablet (six) Branch hours as needed for Pain. HYDROcodone 2017- Yes 1{tbl} Take 1 Un christie -acetaminop 5-08 tablet by ity of hen (WaveMAX) 14:50: mouth [place] 7.5-325 mg 10 every 6 Medica l per tablet (six) Branch hours as needed for Pain. HYDROcodone 2017-0 Yes 1{tbl} Take 1 Un christie -acetaminop 5-08 tablet by ity of hen (WaveMAX) 14:50: mouth [place] 7.5-325 mg 10 every 6 Medica l per tablet (six) Branch hours as needed for Pain. HYDROcodone Yes 1{tbl} Take 1 Un christie -acetaminop 5-08 tablet by ity of hen ([employer]) 14:50: mouth [place] 7.5-325 mg 10 every 6 Medica l per tablet (six) Branch hours as needed for Pain. DOCUSATE Yes 1{tbl} Take 1 Tab U nivers CALCIUM 5-08 by mouth ity of (STOOL 14:49: as needed [place] SOFTENER 02 for Medical ORAL) Constipati Branch on. lisinopril 0 Yes Take by [facility] ers (PRINIVIL,Z 5-08 mouth ity of ESTRIL) 40 14:49: daily. [place] mg tablet 02 Medical Branch multivitami 2017-0 Yes 1{tbl} Take 1 Tab Univers n tablet 5-08 by mouth ity of 14:49: daily. [place] 02 Medical Branch lisinopril 2018-0 Yes Take by [facility] ers (PRINIVIL,Z 5-08 mouth ity of ESTRIL) 40 14:49: daily. [place] mg tablet 02 Medical Branch multivitami 0 Yes 1{tbl} Take 1 Tab Univers n tablet 5-08 by mouth ity of 14:49: daily. Medical Branch lisinopril 2018-0 Yes Take by Univ ers [...] 5-08 by mouth ity of 14:49: daily. [place] [address] Medical Branch lisinopril Yes Take by Univ ers (PRINIVIL,Z 5-08 mouth ity of ESTRIL) 40 14:49: daily. [place] mg tablet Medical Branch multivitami Yes 1{tbl} Take 1 Tab Univers n tablet 5-08 by mouth ity of 14:49: daily. [place] [address] Medical Branch lisinopril Yes Take by Univ ers (PRINIVIL,Z 5-08 mouth ity of ESTRIL) 40 14:49: daily. [place] mg tablet Medical [place] multivitami Yes 1{tbl} Take 1 Tab Univers n tablet 5-08 by mouth ity of 14:49: daily. [address] lisinopril Yes Take by Univ ers (PRINIVIL,Z 5-08 mouth ity of ESTRIL) 40 14:49: daily. [place] mg tablet [facility] multivitami Yes 1{tbl} Take 1 Tab Univers n tablet 5-08 by mouth ity of 14:49: daily. [address] Branch lisinopril Yes Take by Univ ers (PRINIVIL,Z 5-08 mouth ity of ESTRIL) 40 14:49: daily. [place] mg tablet [facility] furosemide Yes 20mg Take 20 mg U nivers (LASIX) 40 5-08 by mouth ity o f mg tablet 14:49: daily. [address] Branch pantoprazol Yes 40mg Take 40 mg Univers e 5-08 by mouth ity of (PROTONIX) 14:49: daily. [place] 40 mg [facility] Branch citalopram Yes 20mg Take 20 mg U nivers (CELEXA) 20 5-08 by mouth ity of mg tablet 14:49: daily. [address] Branch traZODONE Yes 50mg Take 50 mg Un christie (DESYREL) 5-08 by mouth ity of 50 mg 14:49: at [facility] bedtime. Medical Branch rOPINIRole Yes 2mg Take 2 mg Un christie (REQUIP) 2 5-08 by mouth ity o f mg tablet 14:49: at [place] [address] bedtime. Medical Branch tiZANidine Yes 2mg Take [...] 5-08 by mouth ity of 14:49: daily. [place] [facility] Branch levothyroxi Yes TAKE 1 Mj chadwick ne 25 mcg 5-08 TABLET BY l tablet 00:00: MOUTH IN [place] [address] THE MORNING levothyroxi Yes [id number] TAKE 1 Univers ne 25 mcg 5-08 TABLET BY ity o f tablet 00:00: MOUTH IN [place] THE Medical MORNING Branch levothyroxi Yes [id number] TAKE 1 Univers ne 25 mcg 5-08 TABLET BY ity o f tablet 00:00: MOUTH IN [place] THE Medical MORNING Branch levothyroxi Yes [id number] TAKE 1 Univers ne 25 mcg 5-08 TABLET BY ity o f tablet 00:00: MOUTH IN [place] THE Medical MORNING Branch levothyroxi Yes [id number] TAKE 1 Univers ne 25 mcg 5-08 TABLET BY ity o f tablet 00:00: MOUTH IN [place] THE Medical MORNING Branch levothyroxi Yes [id number] TAKE 1 Univers ne 25 mcg 5-08 TABLET BY ity o f tablet 00:00: MOUTH IN [place] THE Medical MORNING Branch levothyroxi Yes [id number] TAKE 1 Univers ne 25 mcg 5-08 TABLET BY ity o f tablet 00:00: MOUTH IN [place] [facility] MORNING Branch levothyroxi Yes [id number] TAKE 1 Univers ne 25 mcg 5-08 TABLET BY ity o f tablet 00:00: MOUTH IN [place] 00 THE Medical MORNING Branch levothyroxi 2018-0 Yes [id number] TAKE 1 Univers ne 25 mcg 5-08 TABLET BY ity o f tablet 00:00: MOUTH IN [place] 00 THE Medical MORNING Branch levothyroxi 2018-0 Yes [id number] TAKE 1 Univers ne 25 mcg 5-08 TABLET BY ity o f tablet 00:00: MOUTH IN [place] 00 THE Medical MORNING Branch levothyroxi 2018-0 Yes [id number] TAKE 1 Univers ne 25 mcg 5-08 TABLET BY ity o f tablet 00:00: MOUTH IN [place] 00 THE Medical MORNING Branch levothyroxi 2018-0 Yes [id number] TAKE 1 Univers ne 25 mcg 5-08 TABLET BY ity o f tablet 00:00: MOUTH IN [place] 00 THE Medical MORNING Branch levothyroxi 2018-0 Yes [id number] TAKE 1 Univers ne 25 mcg 5-08 TABLET BY ity o f tablet 00:00: MOUTH IN [place] 00 THE Medical MORNING Branch levothyroxi 2018-0 Yes [id number] TAKE 1 Univers ne 25 mcg 5-08 TABLET BY ity o f tablet 00:00: MOUTH IN [place] 00 THE Medical MORNING Branch levothyroxi 2018-0 Yes [id number] TAKE 1 Univers ne 25 mcg 5-08 TABLET BY ity o f tablet 00:00: MOUTH IN [place] 00 THE Medical MORNING Branch levothyroxi 2018-0 Yes [id number] TAKE 1 Univers ne 25 mcg 5-08 TABLET BY ity o f tablet 00:00: MOUTH IN [place] 00 THE Medical MORNING Branch levothyroxi 2018-0 Yes [id number] TAKE 1 Univers ne 25 mcg 5-08 TABLET BY ity o f tablet 00:00: MOUTH IN [place] 00 THE Medical MORNING Branch levothyroxi 2018-0 Yes [id number] TAKE 1 Univers ne 25 mcg 5-08 TABLET BY ity o f tablet 00:00: MOUTH IN [place] 00 THE Medical MORNING Branch levothyroxi 2018-0 Yes [id number] TAKE 1 Univers ne 25 mcg 5-08 TABLET BY ity o f tablet 00:00: MOUTH IN [place] 00 THE Medical MORNING Branch levothyroxi 2018-0 Yes [id number] TAKE 1 Univers ne 25 mcg 5-08 TABLET BY ity o f tablet 00:00: MOUTH IN [place] 00 THE Medical MORNING Branch levothyroxi 2018-0 Yes [id number] TAKE 1 Univers ne 25 mcg 5-08 TABLET BY ity o f tablet 00:00: MOUTH IN [place] 00 THE Medical MORNING Branch levothyroxi 2018-0 Yes [id number] TAKE 1 Univers ne 25 mcg 5-08 TABLET BY ity o f tablet 00:00: MOUTH IN [place] 00 THE Medical MORNING Branch levothyroxi 2018-0 Yes [id number] TAKE 1 Univers ne 25 mcg 5-08 TABLET BY ity o f tablet 00:00: MOUTH IN [place] 00 THE Medical MORNING Branch levothyroxi 2018-0 Yes [id number] TAKE 1 Univers ne 25 mcg 5-08 TABLET BY ity o f tablet 00:00: MOUTH IN [place] 00 THE Medical MORNING Branch levothyroxi 2018-0 Yes [id number] TAKE 1 Univers ne 25 mcg 5-08 TABLET BY ity o f tablet 00:00: MOUTH IN [place] 00 THE Medical MORNING Branch levothyroxi 2018-0 Yes [id number] TAKE 1 Univers ne 25 mcg 5-08 TABLET BY ity o f tablet 00:00: MOUTH IN [place] 00 THE Medical MORNING Branch levothyroxi 2018-0 Yes [id number] TAKE 1 Univers ne 25 mcg 5-08 TABLET BY ity o f tablet 00:00: MOUTH IN [place] 00 THE Medical MORNING Branch levothyroxi 2018-0 Yes [id number] TAKE 1 Univers ne 25 mcg 5-08 TABLET BY ity o f tablet 00:00: MOUTH IN [place] 00 THE Medical MORNING Branch levothyroxi 2018-0 Yes [id number] TAKE 1 Univers ne 25 mcg 5-08 TABLET BY ity o f tablet 00:00: MOUTH IN [place] 00 THE Medical MORNING Branch levothyroxi 2018-0 Yes [id number] TAKE 1 Univers ne 25 mcg 5-08 TABLET BY ity o f tablet 00:00: MOUTH IN [place] 00 THE Medical MORNING Branch levothyroxi 2018-0 Yes [id number] TAKE 1 Univers ne 25 mcg 5-08 TABLET BY ity o f tablet 00:00: MOUTH IN [place] 00 THE Medical MORNING Branch levothyroxi 2018-0 Yes [id number] TAKE 1 Univers ne 25 mcg 5-08 TABLET BY ity o f tablet 00:00: MOUTH IN [place] 00 THE Medical MORNING Branch levothyroxi 2018-0 Yes [id number] TAKE 1 Univers ne 25 mcg 5-08 TABLET BY ity o f tablet 00:00: MOUTH IN [place] 00 THE Medical MORNING Branch levothyroxi 2018-0 Yes [id number] TAKE 1 Univers ne 25 mcg 5-08 TABLET BY ity o f tablet 00:00: MOUTH IN [place] 00 THE Medical MORNING Branch levothyroxi Yes [id number] TAKE 1 Univers ne 25 mcg 5-08 TABLET BY ity o f tablet 00:00: MOUTH IN [place] 00 THE Medical MORNING Branch levothyroxi Yes [id number] TAKE 1 Univers ne 25 mcg 5-08 TABLET BY ity o f tablet 00:00: MOUTH IN [place] 00 THE Medical MORNING Branch levothyroxi Yes [id number] TAKE 1 Univers ne 25 mcg 5-08 TABLET BY ity o f tablet 00:00: MOUTH IN [place] 00 THE Medical MORNING Branch metoprolol Yes [...] acetaminoph Yes Take by Uni vers en 9 mouth ity of (TYLENOL) 18:23: every 6 [place] 325 mg 06 (six) Medical tablet hours as Branch needed for Pain (scale 1-3). aspirin 81 Yes 81mg Take 81 mg U nivers mg EC 9-26 by mouth ity of tablet 18:23: daily. Medical Branch acetaminoph Yes Take by Uni vers en 926 mouth ity of (TYLENOL) 18:23: every 6 [place] 325 mg 06 (six) Medical tablet hours as Branch needed for Pain (scale 1-3). aspirin 81 0 Yes 81mg Take 81 mg U nivers mg EC 9-26 by mouth ity of tablet 18:23: daily. Medical Branch acetaminoph Yes Take by Uni vers en 926 mouth ity of (TYLENOL) 18:23: every 6 [place] 325 mg 06 (six) Medical tablet hours as Branch needed for Pain (scale 1-3). aspirin 81 0 Yes 81mg Take 81 mg U nivers mg EC 9-26 by mouth ity of tablet 18:23: daily. [facility] Yes Take by Un christie en 08-04 mouth ity of (TYLENOL) 18:23: every 6 [place] 325 mg 06 (six) Medical tablet hours as Branch needed for Pain (scale 1-3). aspirin 81 2015-0 Yes 81mg Take 81 mg U nivers mg EC 9-26 by mouth ity of tablet 18:23: daily. [facility] Yes Take by Uni vers en 08-04 mouth ity of (TYLENOL) 18:23: every 6 [place] 325 mg 06 (six) Medical tablet hours as Branch needed for Pain (scale 1-3). aspirin 81 0 Yes 81mg Take 81 mg U nivers mg EC 9-26 by mouth ity of tablet 18:23: daily. [facility] Yes Take by Uni vers en 08-04 mouth ity of (TYLENOL) 18:23: every 6 [place] 325 mg 06 (six) Medical tablet hours as Branch needed for Pain (scale 1-3). aspirin 81 Yes 81mg Take 81 mg U nivers mg EC 9-26 by mouth ity of tablet 18:23: daily. [address] [place] [address] Yes Take by Uni vers en 08-04 mouth ity of (TYLENOL) 18:23: every 6 [place] 325 mg 06 (six) Medical tablet hours as Branch needed for Pain (scale 1-3). aspirin 81 0 Yes 81mg Take 81 mg U nivers mg EC 9-26 by mouth ity of tablet 18:23: daily. [facility] Yes Take by Uni vers en 08-04 mouth ity of (TYLENOL) 18:23: every 6 [place] 325 mg 06 (six) Medical tablet hours as Branch needed for Pain (scale 1-3). aspirin 81 2015-0 Yes 81mg Take 81 mg U nivers mg EC 9-26 by mouth ity of tablet 18:23: daily. [address] [place] [address] Yes Take by Uni vers en 08-04 mouth ity of (TYLENOL) 18:23: every 6 [place] 325 mg 06 (six) Medical tablet hours as Branch needed for Pain (scale 1-3). aspirin 81 Yes 81mg Take 81 mg U nivers mg EC 9-26 by mouth ity of tablet 18:23: daily. [address] Yes Take by Uni vers en 08-04 mouth ity of (TYLENOL) 18:23: every 6 [place] 325 mg 06 (six) Medical tablet hours as Branch needed for Pain (scale 1-3). aspirin 81 Yes 81mg Take 81 mg U nivers mg EC 9-26 by mouth ity of tablet 18:23: daily. [address] Yes Take by Uni vers en 9 mouth ity of (TYLENOL) 18:23: every 6 [place] 325 mg 06 (six) Medical tablet hours as Branch needed for Pain (scale 1-3). aspirin 81 Yes 81mg Take 81 mg U nivers mg EC 9-26 by mouth ity of tablet 18:23: daily. [address] Yes Take by Uni vers en 08-04 mouth ity of (TYLENOL) 18:23: every 6 [place] 325 mg 06 (six) Medical tablet hours as Branch needed for Pain (scale 1-3). aspirin 81 Yes 81mg Take 81 mg U nivers mg EC 9-26 by mouth ity of tablet 18:23: daily. [address] Yes Take by Uni vers en [...] No TAKE 1 Unive rs (MOBIC) 15 8- 05-25 TABLET(S) ity of mg tablet 00:00: 00:00 BY MOUTH Reinaldo as 00 :00 EVERY Medical MORNING Branch AFTER BREAKFAST proMETHazin Yes Take 1 Tab Memoria e 4-01 by mouth l (PHENERGAN) 00:00: every 6 Her bailey 25 mg 00 (six) tablet hours as needed for Nausea and Vomiting (N/V). proMETHazin Yes [id number] 25mg Take 1 Tab Univers e 4-01 by mouth ity of (PHENERGAN) 00:00: every 6 [place]inal[place] as 25 mg 00 (six) Medical tablet hours as Branch needed for Nausea and Vomiting (N/V). proMETHazin Yes [id number] 25mg Take 1 Tab Univers e 4-01 by mouth ity of (PHENERGAN) 00:00: every 6 [place] as 25 mg 00 (six) Medical tablet hours as Branch needed for Nausea and Vomiting (N/V). proMETHazin Yes [id number] 25mg Take 1 Tab [facility]01 by mouth ity of (PHENERGAN) 00:00: every 6 [place] as 25 mg 00 (six) Medical tablet hours as Branch needed for Nausea and Vomiting (N/V). proMETHazin Yes [id number] 25mg Take 1 Tab [facility] by mouth ity of (PHENERGAN) 00:00: every 6 [place] as 25 mg 00 (six) Medical tablet hours as Branch needed for Nausea and Vomiting (N/V). proMETHazin Yes [id number] 25mg Take 1 Tab [facility]01 by mouth ity of (PHENERGAN) 00:00: every 6 [place] as 25 mg 00 (six) Medical tablet hours as Branch needed for Nausea and Vomiting (N/V). proMETHazin Yes [id number] 25mg Take 1 Tab Univers e 4-01 by mouth ity of (PHENERGAN) 00:00: every 6 Reinaldo as 25 mg 00 (six) Medical tablet hours as Branch needed for Nausea and Vomiting (N/V). proMETHazin Yes [id number] 25mg Take 1 Tab Univers e 4-01 by mouth ity of (PHENERGAN) 00:00: every 6 Reinaldo as 25 mg 00 (six) Medical tablet hours as Branch needed for Nausea and Vomiting (N/V). proMETHazin Yes [id number] 25mg Take 1 Tab Univers e 4-01 by mouth ity of (PHENERGAN) 00:00: every 6 [facility]do as 25 mg 00 (six) Medical tablet hours as Branch needed for Nausea and Vomiting (N/V). proMETHazin Yes [id number] 25mg Take 1 Tab Univers e 4-01 by mouth ity of (PHENERGAN) 00:00: every 6 Reinaldo as 25 mg 00 (six) Medical tablet hours as Branch needed for Nausea and Vomiting (N/V). proMETHazin Yes [id number] 25mg Take 1 Tab Univers e 4-01 by mouth ity of (PHENERGAN) 00:00: every 6 [facility]do as 25 mg 00 (six) Medical tablet hours as Branch needed for Nausea and Vomiting (N/V). proMETHazin Yes [id number] 25mg Take 1 Tab Univers e 4-01 by mouth ity of (PHENERGAN) 00:00: every 6 [facility]do as 25 mg 00 (six) Medical tablet hours as Branch needed for Nausea and Vomiting (N/V). proMETHazin Yes [id number] 25mg Take 1 Tab Univers e 4-01 by mouth ity of (PHENERGAN) 00:00: every 6 [facility]do as 25 mg 00 (six) Medical tablet hours as Branch needed for Nausea and Vomiting (N/V). proMETHazin Yes [id number] 25mg Take 1 Tab [facility] e 4-01 by mouth ity of (PHENERGAN) 00:00: every 6 Reinaldo as 25 mg 00 (six) Medical tablet hours as Branch needed for Nausea and Vomiting (N/V). proMETHazin Yes [id number] 25mg Take 1 Tab [facility] e 4-01 by mouth ity of (PHENERGAN) 00:00: every 6 [facility]inaldo as 25 mg 00 (six) Medical tablet hours as Branch needed for Nausea and Vomiting (N/V). proMETHazin Yes [id number] 25mg Take 1 Tab [facility] e 4-01 by mouth ity of (PHENERGAN) 00:00: every 6 Reinaldo as 25 mg 00 (six) Medical tablet hours as Branch needed for Nausea and Vomiting (N/V). proMETHazin Yes [id number] 25mg Take 1 Tab [facility] e 4-01 by mouth ity of (PHENERGAN) 00:00: every 6 Reinaldo as 25 mg 00 (six) Medical tablet hours as Branch needed for Nausea and Vomiting (N/V). proMETHazin Yes [id number] 25mg Take 1 Tab [facility] e 4-01 by mouth ity of (PHENERGAN) 00:00: every 6 [facility] as 25 mg 00 (six) Medical tablet hours as Branch needed for Nausea and Vomiting (N/V). proMETHazin Yes [id number] 25mg Take 1 Tab [facility] e 4-01 by mouth ity of (PHENERGAN) 00:00: every 6 [facility]do as 25 mg 00 (six) Medical tablet hours as Branch needed for Nausea and Vomiting (N/V). proMETHazin Yes [id number] 25mg Take 1 Tab Univers e 4-01 by mouth ity of (PHENERGAN) 00:00: every 6 [facility] as 25 mg 00 (six) Medical tablet hours as Branch needed for Nausea and Vomiting (N/V). proMETHazin Yes [id number] 25mg Take 1 Tab Univers e 4-01 by mouth ity of (PHENERGAN) 00:00: every 6 Reinaldo as 25 mg 00 (six) Medical tablet hours as Branch needed for Nausea and Vomiting (N/V). proMETHazin Yes [id number] 25mg Take 1 Tab [facility] e 4-01 by mouth ity of (PHENERGAN) 00:00: every 6 Reinaldo as 25 mg 00 (six) Medical tablet hours as Branch needed for Nausea and Vomiting (N/V). proMETHazin Yes [id number] 25mg Take 1 Tab [facility] 4-01 by mouth ity of (PHENERGAN) 00:00: every 6 [facility]do as 25 mg 00 (six) Medical tablet hours as Branch needed for Nausea and Vomiting (N/V). proMETHazin Yes [id number] 25mg Take 1 Tab [facility] e 4-01 by mouth ity of (PHENERGAN) 00:00: every 6 Reinaldo as 25 mg 00 (six) Medical tablet hours as Branch needed for Nausea and Vomiting (N/V). proMETHazin Yes [id number] 25mg Take 1 Tab Univers e 4-01 by mouth ity of (PHENERGAN) 00:00: every 6 Reinaldo as 25 mg 00 (six) Medical tablet hours as Branch needed for Nausea and Vomiting (N/V). proMETHazin Yes [id number] 25mg Take 1 Tab [facility] e 4-01 by mouth ity of (PHENERGAN) 00:00: every 6 Reinaldo as 25 mg 00 (six) Medical tablet hours as Branch needed for Nausea and Vomiting (N/V). proMETHazin Yes [id number] 25mg Take 1 Tab [facility] e 4-01 by mouth ity of (PHENERGAN) 00:00: every 6 Reinaldo as 25 mg 00 (six) Medical tablet hours as Branch needed for Nausea and Vomiting (N/V). proMETHazin Yes [id number] 25mg Take 1 Tab [facility] e 4-01 by mouth ity of (PHENERGAN) 00:00: every 6 [facility]inaldo as 25 mg 00 (six) Medical tablet hours as Branch needed for Nausea and Vomiting (N/V). proMETHazin Yes [id number] 25mg Take 1 Tab [facility] e 4-01 by mouth ity of (PHENERGAN) 00:00: every 6 Reinaldo as 25 mg 00 (six) Medical tablet hours as Branch needed for Nausea and Vomiting (N/V). proMETHazin Yes [id number] 25mg Take 1 Tab [facility] e 4-01 by mouth ity of (PHENERGAN) 00:00: every 6 [facility] as 25 mg 00 (six) Medical tablet hours as Branch needed for Nausea and Vomiting (N/V). proMETHazin Yes [id number] 25mg Take 1 Tab [facility] e 4-01 by mouth ity of (PHENERGAN) 00:00: every 6 [facility]do as 25 mg 00 (six) Medical tablet hours as Branch needed for Nausea and Vomiting (N/V). proMETHazin Yes [id number] 25mg Take 1 Tab [facility] e 4-01 by mouth ity of (PHENERGAN) 00:00: every 6 [facility] as 25 mg 00 (six) Medical tablet hours as Branch needed for Nausea and Vomiting (N/V). proMETHazin Yes [id number] 25mg Take 1 Tab Univers e 4-01 by mouth ity of (PHENERGAN) 00:00: every 6 Reinaldo as 25 mg 00 (six) Medical tablet hours as Branch needed for Nausea and Vomiting (N/V). proMETHazin 2016-0 Yes [id number] 25mg Take 1 Tab Univers e 4-01 by mouth ity of (PHENERGAN) 00:00: every 6 [facility]inal[facility] as 25 mg 00 (six) Medical tablet hours as Branch needed for Nausea and Vomiting (N/V). proMETHazin 2016-0 Yes [id number] 25mg Take 1 Tab [facility] e 4-01 by mouth ity of (PHENERGAN) 00:00: every 6 [facility] as 25 mg 00 (six) Medical tablet hours as Branch needed for Nausea and Vomiting (N/V). proMETHazin 2016-0 Yes [id number] 25mg Take 1 Tab [facility] e 4-01 by mouth ity of (PHENERGAN) 00:00: every 6 [facility]inaldo as 25 mg 00 (six) Medical tablet hours as Branch needed for Nausea and Vomiting (N/V). proMETHazin 2016-0 Yes [id number] 25mg Take 1 Tab [facility] e 4-01 by mouth ity of (PHENERGAN) 00:00: every 6 [facility]inaldo as 25 mg 00 (six) Medical tablet hours as Branch needed for Nausea and Vomiting (N/V). promethazin 2016-0 Yes 25mg Q6H Take 25 [...] BEDTIME M emoria Hcl 4-04 l 00:00: [place] 00 Immunizations Ordered Filled Immunization Date Status Comments [facility] e Immunization Name Name Pneumococcal 2020-09-12 [facility] Polysaccharide, 00:00:00 PPSV23 (PNEUMOVAX) Pneumococcal 2020-09-12 Completed University o f Polysaccharide, [...] PPSV23 (PNEUMOVAX) Branch Influenza Virus 2019-08-18 Completed [facility] Mohan Vaccine Quad IM 00:00:00 Multi-dose 6+ MO Zoster(Zostavax)( 2019-08-18 Completed Eva oscar) 00:00:00 Influenza Virus 2019-08-18 Completed Universit y of Vaccine Quad IM 00:00:00 [place] [facility] Multi-dose 6+ MO Branch Zoster(Zostavax)( 2019-08-18 Completed Unive rsity of ingles) 00:00:00 [facility] Influenza Virus 2019-08-18 Completed Universit y of Vaccine Quad IM 00:00:00 [place] [facility] Multi-dose 6+ MO Branch Zoster(Zostavax)( 2019-08-18 Completed Unive rsity of ingles) 00:00:00 [facility] Influenza Virus 2019-08-18 Completed Universit y of Vaccine Quad IM 00:00:00 [place] [facility] Multi-dose 6+ MO Branch Zoster(Zostavax)( 2019-08-18 Completed Unive rsity of ingles) 00:00:00 [facility] Influenza Virus 2019-08-18 Completed Universit y of Vaccine Quad IM 00:00:00 [place] [facility] Multi-dose 6+ MO Branch Zoster(Zostavax)( 2019-08-18 Completed Unive rsity of ingles) 00:00:00 [facility] Influenza Virus 2019-08-18 Completed Universit y of Vaccine Quad IM 00:00:00 [place] [facility] Multi-dose 6+ MO Branch Zoster(Zostavax)( 2019-08-18 Completed Unive rsity of ingles) 00:00:00 [facility] Influenza Virus 2019-08-18 Completed Universit y of Vaccine Quad IM 00:00:00 [place] [facility] Multi-dose 6+ MO Branch Zoster(Zostavax)( 2019-08-18 Completed Unive rsity of ingles) 00:00:00 [facility] Influenza Virus 2019-08-18 Completed Universit y of Vaccine Quad IM 00:00:00 [place] [facility] Multi-dose 6+ MO Branch Zoster(Zostavax)( 2019-08-18 Completed Unive rsity of ingles) 00:00:00 [facility] Influenza Virus 2019-08-18 Completed Universit y of Vaccine Quad IM 00:00:00 [place] [facility] Multi-dose 6+ MO Branch Zoster(Zostavax)( 2019-08-18 Completed Unive rsity of ingles) 00:00:00 [facility] Influenza Virus 2019-08-18 Completed Universit y of Vaccine Quad IM 00:00:00 [place] [facility] Multi-dose 6+ MO Branch Zoster(Zostavax)( 2019-08-18 Completed Unive rsity of ingles) 00:00:00 [facility] Influenza Virus 2019-08-18 Completed Universit y of Vaccine Quad IM 00:00:00 [place] [facility] Multi-dose 6+ MO Branch Zoster(Zostavax)( 2019-08-18 Completed Unive rsity of ingles) 00:00:00 [facility] Influenza Virus 2019-08-18 Completed Universit y of Vaccine Quad IM 00:00:00 [place] [facility] Multi-dose 6+ MO Branch Zoster(Zostavax)( 2019-08-18 Completed Unive rsity of ingles) 00:00:00 [facility] Influenza Virus 2019-08-18 Completed Universit y of Vaccine Quad IM 00:00:00 [place] [facility] Multi-dose 6+ MO Branch Zoster(Zostavax)( 2019-08-18 Completed Unive rsity of ingles) 00:00:00 [facility] Influenza Virus 2019-08-18 Completed Universit y of Vaccine Quad IM 00:00:00 [place] [facility] Multi-dose 6+ MO Branch Zoster(Zostavax)( 2019-08-18 Completed Unive rsity of ingles) 00:00:00 [facility] Influenza Virus 2019-08-18 Completed Universit y of Vaccine Quad IM 00:00:00 [place] [facility] Multi-dose 6+ MO Branch Zoster(Zostavax)( 2019-08-18 Completed Unive rsity of ingles) 00:00:00 [facility] Influenza Virus 2019-08-18 Completed Universit y of Vaccine Quad IM 00:00:00 [place] [facility] Multi-dose 6+ MO Branch Zoster(Zostavax)( 2019-08-18 Completed Unive rsity of ingles) 00:00:00 [facility] Influenza Virus 2019-08-18 Completed Universit y of Vaccine Quad IM 00:00:00 [place] [facility] Multi-dose 6+ MO Branch Zoster(Zostavax)( 2019-08-18 Completed Unive rsity of ingles) 00:00:00 [facility] Influenza Virus 2019-08-18 Completed Universit y of Vaccine Quad IM 00:00:00 [place] [facility] Multi-dose 6+ MO Branch Zoster(Zostavax)( 2019-08-18 Completed Unive rsity of ingles) 00:00:00 [facility] Influenza Virus 2019-08-18 Completed Universit y of Vaccine Quad IM 00:00:00 [place] [facility] Multi-dose 6+ MO Branch Zoster(Zostavax)( 2019-08-18 Completed Unive rsity of ingles) 00:00:00 [facility] Influenza Virus 2019-08-18 Completed Universit y of Vaccine Quad IM 00:00:00 [place] [facility] Multi-dose 6+ MO Branch Zoster(Zostavax)( 2019-08-18 Completed Unive rsity of ingles) 00:00:00 [facility] Influenza Virus 2019-08-18 Completed Universit y of Vaccine Quad IM 00:00:00 [place] [facility] Multi-dose 6+ MO Branch Zoster(Zostavax)( 2019-08-18 Completed Unive rsity of ingles) 00:00:00 [facility] Influenza Virus 2019-08-18 Completed Universit y of Vaccine Quad IM 00:00:00 [place] [facility] Multi-dose 6+ MO Branch Zoster(Zostavax)( 2019-08-18 Completed Unive rsity of ingles) 00:00:00 [facility] Influenza Virus 2019-08-18 Completed Universit y of Vaccine Quad IM 00:00:00 [place] [facility] Multi-dose 6+ MO Branch Zoster(Zostavax)( 2019-08-18 Completed Unive rsity of ingles) 00:00:00 [facility] Influenza Virus 2019-08-18 Completed Universit y of Vaccine Quad IM 00:00:00 [place] [facility] Multi-dose 6+ MO Branch Zoster(Zostavax)( 2019-08-18 Completed Unive rsity of ingles) 00:00:00 [facility] Influenza Virus 2019-08-18 Completed Universit y of Vaccine Quad IM 00:00:00 [place] [facility] Multi-dose 6+ MO Branch Zoster(Zostavax)( 2019-08-18 Completed Unive rsity of ingles) 00:00:00 [facility] Influenza Virus 2019-08-18 Completed Universit y of Vaccine Quad IM 00:00:00 [place] [facility] Multi-dose 6+ MO Branch Zoster(Zostavax)( 2019-08-18 Completed Unive rsity of ingles) 00:00:00 [facility] Influenza Virus 2019-08-18 Completed Universit y of Vaccine Quad IM 00:00:00 [facility] [place] [facility] ical Multi-dose 6+ MO Branch Zoster(Zostavax)( 2019-08-18 Completed Unive rsity of ingles) 00:00:00 [facility] Influenza Virus 2019-08-18 Completed Universit y of Vaccine Quad IM 00:00:00 [facility] [place] [facility] ical Multi-dose 6+ MO Branch Zoster(Zostavax)( 2019-08-18 Completed Unive rsity of ingles) 00:00:00 [facility] Influenza Virus 2019-08-18 Completed Universit y of Vaccine Quad IM 00:00:00 [facility] ical Multi-dose 6+ MO Branch Zoster(Zostavax)( 2019-08-18 Completed Unive rsity of ingles) 00:00:00 [facility] Influenza Virus 2019-08-18 Completed Universit y of Vaccine Quad IM 00:00:00 [facility] ical Multi-dose 6+ MO Branch Zoster(Zostavax)( 2019-08-18 Completed Unive rsity of ingles) 00:00:00 [facility] Branch Zoster(Zostavax)( 2019-05-02 Completed Eva oscar) 00:00:00 Zoster(Zostavax)( 2019-05-02 Completed Unive rsity of ingles) 00:00:00 [facility] Branch Zoster(Zostavax)( 2019-05-02 Completed Unive rsity of ingles) 00:00:00 [facility] Zoster(Zostavax)( 2019-05-02 Completed Unive rsity of ingles) 00:00:00 [facility] Zoster(Zostavax)( 2019-05-02 Completed Unive rsity of ingles) 00:00:00 [facility] Zoster(Zostavax)( 2019-05-02 Completed Unive rsity of ingles) 00:00:00 [facility] Zoster(Zostavax)( 2019-05-02 Completed Unive rsity of ingles) 00:00:00 [facility] Zoster(Zostavax)( 2019-05-02 Completed Unive rsity of ingles) 00:00:00 [place] [facility] Zoster(Zostavax)( 2019-05-02 Completed Unive rsity of ingles) 00:00:00 [place] [facility] Zoster(Zostavax)( 2019-05-02 Completed Unive rsity of ingles) 00:00:00 [facility] Zoster(Zostavax)( 2019-05-02 Completed Unive rsity of ingles) 00:00:00 [facility] Zoster(Zostavax)( 2019-05-02 Completed Unive rsity of ingles) 00:00:00 [facility] Zoster(Zostavax)( 2019-05-02 Completed Unive rsity of ingles) 00:00:00 [facility] Zoster(Zostavax)( 2019-05-02 Completed Unive rsity of ingles) 00:00:00 [facility] Zoster(Zostavax)( 2019-05-02 Completed Unive rsity of ingles) 00:00:00 [facility] Zoster(Zostavax)( 2019-05-02 Completed Unive rsity of ingles) 00:00:00 [facility] Zoster(Zostavax)( 2019-05-02 Completed Unive rsity of ingles) 00:00:00 [facility] Zoster(Zostavax)( 2019-05-02 Completed Unive rsity of ingles) 00:00:00 [facility] Zoster(Zostavax)( 2019-05-02 Completed Unive rsity of ingles) 00:00:00 [facility] Zoster(Zostavax)( 2019-05-02 Completed Unive rsity of ingles) 00:00:00 [facility] Zoster(Zostavax)( 2019-05-02 Completed Unive rsity of ingles) 00:00:00 [facility] Zoster(Zostavax)( 2019-05-02 Completed Unive rsity of ingles) 00:00:00 [facility] Zoster(Zostavax)( 2019-05-02 Completed Unive rsity of ingles) 00:00:00 [facility] Zoster(Zostavax)( 2019-05-02 Completed Unive rsity of ingles) 00:00:00 [facility] Zoster(Zostavax)( 2019-05-02 Completed Unive rsity of ingles) 00:00:00 [facility] Zoster(Zostavax)( 2019-05-02 Completed Unive rsity of ingles) 00:00:00 [facility] Zoster(Zostavax)( 2019-05-02 Completed Unive rsity of ingles) 00:00:00 [facility] Zoster(Zostavax)( 2019-05-02 Completed Unive rsity of ingles) 00:00:00 [facility] Zoster(Zostavax)( 2019-05-02 Completed Unive rsity of ingles) 00:00:00 [facility] Zoster(Zostavax)( 2019-05-02 Completed Unive rsity of ingles) 00:00:00 [facility] Influenza Virus 2016-08-04 Completed [facility] Vaccine Quad IM 3+ 00:00:00 [facility] Influenza Virus 2016-08-04 Completed Universit y of Vaccine Quad IM 3+ 00:00:00 [facility] Influenza Virus 2016-08-04 Completed Universit y of Vaccine Quad IM 3+ 00:00:00 [facility] Influenza Virus 2016-08-04 Completed Universit y of Vaccine Quad IM 3+ 00:00:00 [facility] Influenza Virus 2016-08-04 Completed Universit y of Vaccine Quad IM 3+ 00:00:00 [facility] Influenza Virus 2016-08-04 Completed Universit y of Vaccine Quad IM 3+ 00:00:00 [facility] Influenza Virus 2016-08-04 Completed Universit y of Vaccine Quad IM 3+ 00:00:00 [facility] Influenza Virus 2016-08-04 Completed Universit y of Vaccine Quad IM 3+ 00:00:00 [facility] Influenza Virus 2016-08-04 Completed Universit y of Vaccine Quad IM 3+ 00:00:00 [facility] Influenza Virus 2016-08-04 Completed Universit y of Vaccine Quad IM 3+ 00:00:00 [facility] Influenza Virus 2016-08-04 Completed Universit y of Vaccine Quad IM 3+ 00:00:00 [facility] Influenza Virus 2016-08-04 Completed Universit y of Vaccine Quad IM 3+ 00:00:00 [facility] Influenza Virus 2016-08-04 Completed Universit y of Vaccine Quad IM 3+ 00:00:00 [facility] Influenza Virus 2016-08-04 Completed Universit y of Vaccine Quad IM 3+ 00:00:00 [facility] Influenza Virus 2016-08-04 Completed Universit y of Vaccine Quad IM 3+ 00:00:00 [facility] Influenza Virus 2016-08-04 Completed Universit y of Vaccine Quad IM 3+ 00:00:00 [facility] Influenza Virus 2016-08-04 Completed Universit y of Vaccine Quad IM 3+ 00:00:00 [facility] Influenza Virus 2016-08-04 Completed Universit y of Vaccine Quad IM 3+ 00:00:00 [facility] Influenza Virus 2016-08-04 Completed Universit y of Vaccine Quad IM 3+ 00:00:00 [facility] Influenza Virus 2016-08-04 Completed Universit y of Vaccine Quad IM 3+ 00:00:00 [facility] Influenza Virus 2016-08-04 Completed Universit y of Vaccine Quad IM 3+ 00:00:00 [facility] Influenza Virus 2016-08-04 Completed Universit y of Vaccine Quad IM 3+ 00:00:00 [facility] Influenza Virus 2016-08-04 Completed Universit y of Vaccine Quad IM 3+ 00:00:00 [facility] Influenza Virus 2016-08-04 Completed Universit y of Vaccine Quad IM 3+ 00:00:00 [facility] Influenza Virus 2016-08-04 Completed Universit y of Vaccine Quad IM 3+ 00:00:00 [facility] Influenza Virus 2016-08-04 Completed Universit y of Vaccine Quad IM 3+ 00:00:00 [facility] Influenza Virus 2016-08-04 Completed Universit y of Vaccine Quad IM 3+ 00:00:00 [facility] Influenza Virus 2016-08-04 Completed Universit y of Vaccine Quad IM 3+ 00:00:00 [facility] Influenza Virus 2016-08-04 Completed Universit y of Vaccine Quad IM 3+ 00:00:00 [facility] Influenza Virus 2016-08-04 Completed Universit y of Vaccine Quad IM 3+ 00:00:00 [facility] Influenza Virus 2016-08-04 Completed Universit y of Vaccine Quad IM 3+ 00:00:00 [facility] Influenza Virus 2016-08-04 Completed Universit y of Vaccine Quad IM 3+ 00:00:00 [facility] Influenza Virus 2016-08-04 Completed Universit y of Vaccine Quad IM 3+ 00:00:00 [facility] Influenza Virus 2016-08-04 Completed Universit y of Vaccine Quad IM 3+ 00:00:00 [facility] Influenza Virus 2016-08-04 Completed Universit y of Vaccine Quad IM 3+ 00:00:00 [facility] Influenza Virus 2016-08-04 Completed Universit y of Vaccine Quad IM 3+ 00:00:00 [facility] Influenza Virus 2016-08-04 Completed Universit y of Vaccine Quad IM 3+ 00:00:00 [facility] tetanus-diphtheria 2011-08-07 Completed [facility] toxoids 19:44:00 tetanus-diphtheria 2011-08-07 Completed [facility] [place] toxoids 19:44:00 pneumococcal 2010-11-29 Completed [facility] bailey 23-valent vaccine 18:39:00 pneumococcal 2010-11-29 Completed [facility] bailey 23-valent vaccine 18:39:00 Vital Signs Vital Name [...] 2022-11-28 15:36:00 122 mm[Hg] Univer sity of pressure [facility] Diastolic blood 2022-11-28 15:36:00 74 mm[Hg] Unive rsity of pressure [facility] Heart rate 2022-11-28 15:34:00 72 /min [facility] Body temperature 2022-11-28 15:34:00 36.78 Farn[address] [facility] [address] [facility] Respiratory rate 2022-11-28 15:34:00 18 /min [facility] ersity of [facility] Body height 2022-11-28 15:34:00 167.6 cm [facility] Body weight 2022-11-28 15:34:00 63.504 kg [facility] BMI 2022-11-28 15:34:00 22.60 kg/m2 [facility] ty [facility] Systolic blood 2022-07-28 19:43:00 100 mm[facility]Hg[facility] Diastolic blood 2022-07-28 19:43:00 67 mm[Hg] [facility] Heart rate 2022-07-28 19:43:00 83 [facility] Res[facility] rate 2022-07-28 19:43:00 18 [facility] height 2022-07-28 19:43:00 [facility] Body weight 2022-07-28 19:43:00 [facility] 2022-07-28 19:43:00 20.19 kg/m2 [facility] O[facility] saturation in 2022-07-28 19:43:00 96 /min [facility] Arterial blood by Pulse oximetry Systolic blood 2022-07-21 22:24:00 154 mm[Hg] Univer sity of [facility] Diastolic blood 2022-07-21 22:24:00 94 mm[Hg] Unive rsity of [facility] Heart rate 2022-07-21 22:24:00 73 /min [facility] Respiratory rate 2022-07-21 22:24:00 17 /min [facility] Oxygen saturation in 2022-07-21 22:24:00 99 /min [facility] Arterial blood by [facility] Pulse oximetry Branch Body temperature 2022-07-21 20:22:00 37.33 [address]arn[address] [facility] [address] Body weight 2022-07-21 20:22:[address] 67[address] [facility] BMI 2022-07-21 20:22:00 24.05 kg/m2 [facility] ty of [facility] Systolic blood 2021-05-31 21:42:00 145 mm[Hg] Univer sity of pressure [facility] Diastolic blood 2021-05-31 21:42:00 88 mm[Hg] Unive rsity of pressure [facility] Heart rate 2021-05-31 21:41:00 69 /min [facility] Body height 2021-05-31 21:41:00 167.6 cm [facility] Body weight 2021-05-31 21:41:00 67.586 kg Universi ty of [facility] BMI 2021-05-31 21:41:00 24.05 kg/m2 Universi ty of [facility] Systolic blood 2021-05-31 21:42:00 145 mm[Hg] Univer sity of pressure [facility] Diastolic blood 2021-05-31 21:42:00 88 mm[Hg] Unive rsity of pressure [facility] Heart rate 2021-05-31 21:41:00 69 /min [facility] Body height 2021-05-31 21:41:00 167.6 cm [facility] Body weight 2021-05-31 21:41:00 67.586 kg [facility] BMI 2021-05-31 21:41:00 24.05 kg/m2 [facility] Respiratory rate 2021-04-03 17:09:00 20 /min Univ ersity of [facility] Oxygen saturation in 2021-04-03 17:09:00 94 /min [facility] Arterial blood by [facility] Pulse oximetry Branch Systolic blood 2021-04-03 16:32:00 133 mm[Hg] Univer sity of pressure [facility] Diastolic blood 2021-04-03 16:32:00 62 mm[Hg] Unive rsity of pressure [facility] Heart rate 2021-04-03 16:32:00 51 /min [facility] Body temperature 2021-04-03 16:32:00 36.89 Farnaz Univ ersity of [facility] Body height 2021-04-02 07:24:00 167.6 cm [facility] Body weight 2021-04-02 00:32:00 70.761 kg [facility] BMI 2021-04-02 00:32:00 25.18 kg/m2 [facility] Respiratory rate 2021-04-03 17:09:00 20 /min [facility] Oxygen saturation in 2021-04-03 17:09:00 94 /min [facility] of Arterial blood by [facility] Pulse oximetry Branch Systolic blood 2021-04-03 16:32:00 133 mm[Hg] [facility]iver [facility]ity [facility] Diastolic blood 2021-04-03 16:32:00 62 mm[Hg] [facility]ive [facility]ity of pressure [facility] Heart rate 2021-04-03 16:32:00 51 /min [facility] Body temperature 2021-04-03 16:32:00 36.89 Farnaz [facility] Body height 2021-04-02 07:24:00 167.6 cm [facility] Body weight 2021-04-02 00:32:00 70.761 kg [facility] BMI 2021-04-02 00:32:00 25.18 kg/m2 [facility] Systolic blood 2021-03-04 20:21:00 123 mm[Hg] [facility] Diastolic blood 2021-03-04 20:21:00 74 mm[Hg] [facility] Heart rate 2021-03-04 20:21:00 69 /min [facility] Body height 2021-03-04 20:21:00 167.6 cm [facility] Body weight 2021-03-04 20:21:00 70.761 kg [facility] BMI 2021-03-04 20:21:00 25.18 kg/m2 [facility] Oxygen saturation in 2021-03-04 20:21:00 100 /min [facility] of Arterial blood by [facility] dyan Pulse oximetry Branch Systolic blood 2021-03-04 20:21:00 123 mm[Hg] Univer [facility]ity of [facility] Diastolic blood 2021-03-04 20:21:00 74 mm[Hg] [facility]ive [facility]ity [facility] Heart rate 2021-03-04 20:21:00 69 /min [facility] Body height 2021-03-04 20:21:00 167.6 cm [facility] Body weight 2021-03-04 20:21:00 70.761 kg [facility] BMI 2021-03-04 20:21:00 25.18 kg/m2 [facility] Oxygen saturation in 2021-03-04 20:21:00 100 /min [facility] of Arterial blood by [facility] Pulse oximetry Branch Systolic blood 2020-08-30 20:05:00 156 mm[Hg] [facility] Diastolic blood 2020-08-30 20:05:00 81 mm[Hg] [facility] Heart rate 2020-08-30 20:05:00 62 /min [facility] Body temperature 2020-08-30 20:05:00 36.67 Farnaz [facility] Respiratory rate 2020-08-30 20:05:00 16 /min [facility] Body height 2020-08-30 20:05:00 167.6 cm [facility] Body weight 2020-08-30 20:05:00 71.578 kg [facility] BMI 2020-08-30 20:05:00 25.47 kg/m2 [facility] Systolic blood 2020-08-30 20:05:00 156 mm[Hg] [facility] Diastolic blood 2020-08-30 20:05:00 81 mm[Hg] [facility] Heart rate 2020-08-30 20:05:00 62 /min [facility] Body temperature 2020-08-30 20:05:00 36.67 Farnaz [facility] Respiratory rate 2020-08-30 20:05:00 16 /min [facility] Body height 2020-08-30 20:05:00 167.6 cm [facility] Body weight 2020-08-30 20:05:00 71.578 kg [facility] BMI 2020-08-30 20:05:00 25.47 kg/m2 [facility] Heart Rate 2022-08-22 12:41:19 [facility] Systolic (mm Hg) 2022-08-22 12:41:07 [facility] [place] Diastolic (mm Hg) 2022-08-22 12:41:07 [facility] [place] Temperature Oral (F) 2022-08-22 12:40:08 97.9 F [facility] [place] Height 2022-08-20 00:19:00 5 [ft_i] [facility] Weight 2022-08-20 00:19:00 [facility] BMI Calculated 2022-08-20 00:19:00 [facility] [place] Systolic (mm Hg) 2022-02-04 01:00:00 [facility] Diastolic (mm Hg) 2022-02-04 01:00:00 [facility] [place] Respitory Rate 2022-02-04 01:00:00 [facility] Temperature Oral (F) 2022-02-04 01:00:00 98 F [facility] [place] Systolic (mm Hg) 2022-02-03 23:50:00 [facility] [place] Diastolic (mm Hg) 2022-02-03 23:50:00 [facility] [place] Respitory Rate 2022-02-03 23:50:00 [facility] [place] Systolic (mm Hg) 2022-02-03 22:55:00 [facility] Diastolic (mm Hg) 2022-02-03 22:55:00 [facility] Respitory Rate 2022-02-03 22:55:00 [facility] [place] Heart Rate 2022-02-03 18:58:00 [facility] [place] Height 2022-02-03 15:13:00 170.18 cm [facility] BMI Calculated 2022-02-03 15:13:00 [facility] Weight 2022-02-03 15:13:00 [facility] Heart Rate 2022-02-03 15:13:00 [facility] Temperature Oral (F) 2022-02-03 15:13:00 97.8 F [facility] [place] Systolic blood 2021-08-02 15:28:00 166 mm[Hg] [facility] Diastolic blood 2021-08-02 15:28:00 79 mm[Hg] [facility] Heart rate 2021-08-02 15:28:00 57 /min [facility] Body temperature 2021-08-02 15:28:00 36.89 Farnaz [facility] Respiratory rate 2021-08-02 15:28:00 18 /min [facility] Oxygen saturation in 2021-08-02 15:28:00 98 /min [facility] Arterial blood by Pulse oximetry Respitory Rate 2020-09-29 00:00:00 [facility] [place] Systolic (mm Hg) 2020-09-29 00:00:00 [facility] [place] Diastolic (mm Hg) 2020-09-29 00:00:00 [facility] [place] Respitory Rate 2020-09-28 22:00:00 [facility] Systolic (mm Hg) 2020-09-28 22:00:00 [facility] [place] Diastolic (mm Hg) 2020-09-28 22:00:00 [facility] Temperature Oral (F) 2020-09-28 21:41:00 98.7 F [facility] [place] Respitory Rate 2020-09-28 20:00:00 [facility] [place] Systolic (mm Hg) 2020-09-28 20:00:00 [facility] Diastolic (mm Hg) 2020-09-28 20:00:00 [facility] [place] Temperature Oral (F) 2020-09-28 17:32:00 97.8 F [facility] Temperature Oral (F) 2020-09-28 13:47:00 97.7 F [facility] Height 2020-09-27 09:16:00 165.1 cm [facility] Weight 2020-09-27 09:16:00 [facility] [place] BMI Calculated 2020-09-27 09:16:00 [facility] Respitory Rate 2020-09-27 07:25:00 [facility] [place] Systolic (mm Hg) 2020-09-27 07:25:00 [facility] [place] Diastolic (mm Hg) 2020-09-27 07:25:00 [facility] [place] Temperature Oral (F) 2020-09-27 07:25:00 98.2 F [facility] Respitory Rate 2020-09-27 06:26:00 [facility] [place] Systolic (mm Hg) 2020-09-27 06:26:00 [facility] Diastolic (mm Hg) 2020-09-27 06:26:00 [facility] Respitory Rate 2020-09-27 05:31:00 [facility] Systolic (mm Hg) 2020-09-27 05:31:00 [facility] [place] Diastolic (mm Hg) 2020-09-27 05:31:00 [facility] [place] Temperature Oral (F) 2020-09-27 05:31:00 98.5 F [facility] Heart Rate 2020-09-27 01:55:00 [facility] [place] Temperature Oral (F) 2020-09-27 01:55:00 99.3 F [facility] Height 2020-09-27 00:54:00 162.56 cm [facility] [place] BMI Calculated 2020-09-27 00:54:00 [facility] Weight 2020-09-27 00:54:00 [facility] [place] Heart Rate 2020-09-27 00:54:00 [facility] [place] Systolic (mm Hg) 2020-04-25 08:00:00 [facility] Diastolic (mm Hg) 2020-04-25 08:00:00 [facility] Heart Rate 2020-04-25 08:00:00 [facility] Respitory Rate 2020-04-25 08:00:00 [facility] [place] Temperature Oral (F) 2020-04-25 08:00:00 98.1 F [facility] [place] Systolic (mm Hg) 2020-04-25 04:49:00 [facility] [place] Diastolic (mm Hg) 2020-04-25 04:49:00 [facility] Respitory Rate 2020-04-25 04:49:00 [facility] [place] Heart Rate 2020-04-25 04:49:00 [facility] [place] Temperature Oral (F) 2020-04-25 04:49:00 97.4 F [facility] Weight 2020-04-25 02:43:00 [facility] [place] Systolic (mm Hg) 2020-04-25 02:43:00 [facility] [place] Diastolic (mm Hg) 2020-04-25 02:43:00 [facility] [place] Heart Rate 2020-04-25 02:43:00 [facility] Respitory Rate 2020-04-25 02:43:00 [facility] Temperature Oral (F) 2020-04-25 02:43:00 97.6 F [facility] [place] Systolic (mm Hg) 2020-03-22 18:00:00 [facility] Diastolic (mm Hg) 2020-03-22 18:00:00 [facility] Systolic (mm Hg) 2020-03-22 17:00:00 [facility] Diastolic (mm Hg) 2020-03-22 17:00:00 [facility] Respitory Rate 2020-03-22 17:00:00 [facility] Systolic (mm Hg) 2020-03-22 16:22:00 [facility] Diastolic (mm Hg) 2020-03-22 16:22:00 [facility] [place] Respitory Rate 2020-03-22 15:00:00 [facility] [place] Respitory Rate 2020-03-22 14:00:00 [facility] [place] Temperature Oral (F) 2020-03-22 13:10:00 98.3 F [facility] Temperature Oral (F) 2020-03-22 04:46:00 98.5 F [facility] Temperature Oral (F) 2020-03-22 02:40:00 98.5 F [facility] [place] Height 2020-03-19 10:00:00 170.18 cm [facility] Weight 2020-03-19 10:00:00 [facility] [place] BMI Calculated 2020-03-19 10:00:00 [facility] [place] Temperature Oral (F) 2020-03-19 07:02:00 98 F [facility] Heart Rate 2020-03-19 07:02:00 [facility] [place] Respitory Rate 2020-03-19 07:02:00 [facility] [place] Systolic (mm Hg) 2020-03-19 07:02:00 [facility] Diastolic (mm Hg) 2020-03-19 07:02:00 [facility] [place] Systolic (mm Hg) 2020-03-19 05:41:00 [facility] [place] Diastolic (mm Hg) 2020-03-19 05:41:00 [facility] [place] Height 2020-03-19 05:20:00 167.64 cm [facility] BMI Calculated 2020-03-19 05:20:00 [facility] Weight 2020-03-19 05:20:00 [facility] [place] Systolic (mm Hg) 2020-03-19 05:20:00 [facility] [place] Diastolic (mm Hg) 2020-03-19 05:20:00 [facility] Heart Rate 2020-03-19 05:20:00 [facility] Respitory Rate 2020-03-19 05:20:00 [facility] [place] Temperature Oral (F) 2020-03-19 05:20:00 98.2 F [facility] [place] Respitory Rate 2019-08-04 00:45:00 [facility] [place] Systolic (mm Hg) 2019-08-04 00:45:00 [facility] [place] Diastolic (mm Hg) 2019-08-04 00:45:00 [facility] Respitory Rate 2019-08-04 00:30:00 [facility] Systolic (mm Hg) 2019-08-04 00:30:00 [facility] [place] Diastolic (mm Hg) 2019-08-04 00:30:00 [facility] [place] Respitory Rate 2019-08-04 00:15:00 [facility] [place] Systolic (mm Hg) 2019-08-04 00:15:00 [facility] [place] Diastolic (mm Hg) 2019-08-04 00:15:00 [facility] [place] Height 2019-08-03 16:02:00 167.64 cm [facility] Weight 2019-08-03 16:02:00 [facility] BMI Calculated 2019-08-03 16:02:00 [facility] Height 2019-08-03 02:00:00 170.18 cm [facility] Weight 2019-08-03 02:00:00 [facility] BMI Calculated 2019-08-03 02:00:00 [facility] [place] Procedures Procedure Date / Time Performing Source Performed Clinician TSH-LC 2022-12-08 Wilma Forde [facility] xas 18:24:00 Medical Branch THYROID PEROXIDASE (TPO) 2022-12-08 Wilma Forde [facility] AB-LC 18:24:00 Medical Branch ASSIGNMENT OF BENEFITS 2022-11-28 Doctor Unassigned, [facility] 15:18:40 [facility] XR CHEST 2 VW 2022-07-21 Jayde [facility] 22:10:[address] HEAD WO CONTRAST 2022-07-21 Trinity Donohue [facility] 22:04:23 Medical Branch URINE DRUG (IMMUNOASSAY) - 2022-07-21 Trinity Donohue [facility] COMPREHENSIVE DRUG SCREEN 22:00:00 Medica l Branch URINALYSIS 2022-07-21 Trinity Donohue [facility] 22:00:00 Medical Branch COMP. METABOLIC PANEL (39669) 2022-07-21 Trinity Donohue [facility] 21:38:00 Medical Branch CBC WITH DIFF 2022-07-21 Trinity Donohue [facility] 21:38:00 Medical Branch NOTICE OF PRIVACY PRACTICES 2022-07-21 Doctor Unassigned, [facility] 19:38:44 [facility] CONSENT/REFUSAL FOR DIAGNOSIS 2022-07-21 Doctor Unassigned, [facility] AND TREATMENT 19:37:19 [facility] REFERRAL- REQUEST/RESPONSE 2022-01-01 Doctor Unassigned, [facility] 06:01:00 [facility] PHYSICIAN ORDERS 2021-09-17 Doctor Unassigned, [facility] 06:01:00 [facility] [place] XR SHOULDER 2+ VIEWS RIGHT 2021-08-26 Gerald Mckeon [facility] 15:52:14 MRI BRAIN WO CONTRAST 2021-08-09 Gwen [facility] 15:20:51 MRI BRAIN WO CONTRAST 2021-08-09 [facility] 15:20:51 CELL COUNT AND DIFFERENTIAL, 2021-08-02 Tae Salazar [facility] BODY FLUID 21:32:00 NM BONE SCAN 3 PHASE 2021-08-02 [facility] 20[facility]00 CT UPPER EXTREMITY WO RIGHT 2021-08-02 Tae Salazar [facility] 18:25:00 FL RAD NEEDLE ASPIRATION 2021[facility]08[facility]02 [facility] 16[facility]02 JOINT FLUID CULTURE 2021-08-02 Tae Salazar [facility] 16:25:00 ANAEROBIC CULTURE 2021-08-02 Tae Salazar [facility] 16:25:00 FUNGUS CULTURE 2021-08-02 Tae Salazar Hospit al 16:25:00 AFB CULTURE 2021-08-02 Tae Salazar Hospit al 16:25:00 FUNGUS SMEAR 2021-08-02 [place], [facility] 16:25:00 AFB STAIN 2021-08-02 [facility] 16:25:00 REFERRAL- REQUEST/RESPONSE 2021-04-30 Doctor Unassigned, Un [facility] 05:01:00 [facility] BASIC METABOLIC PANEL (NA, K, 2021-04-03 [facility], GLUCOSE, BUN, 10:03:00 Medical B ran CREATININE, CA) ELECTROENCEPHALOGRAM 2021-04-03 Vicky [facility] 00:00:00 [facility] URINE CULTURE 2021-04-02 [facility] xa 03:50:00 [facility] TROPONIN I 2021-04-02 [facility] xa 02:06:00 [facility] HEPATIC FUNCTION PANEL 2021-04-02 [facility] ([id number]) (ALB,T.PRO,BILI 02:06:00 [facility] Branch T,BU/BC,ALT,AST,ALK PHOS) BASIC METABOLIC PANEL (NA, K, 2021-04-02 Steven Maloney [facility] CL, CO2, GLUCOSE, BUN, 02:06:00 Medical [facility] CREATININE, CA) ETHANOL 2021-04-02 [facility] xa 02:06:00 [facility] N-TERMINAL PRO-BNP 2021-04-02 [facility] 02:06:00 [facility] COVID-19 (ID NOW RAPID 2021-04-02 Ha[facility] TESTING) 02:06:00 [facility] CT HEAD WO CONTRAST 2021-04-02 Steven Maloney [facility] [place] 01:42:34 [facility] XR CHEST 1 VW 2021-04-02 [facility] x[facility] 01:20:37 [facility] AC PANEL 20 + LACTIC ACID 2021-04-02 Steven Maloney [facility] 01:13:00 [facility] URINE DRUG (IMMUNOASSAY) - 2021-04-02 Steven Maloney [facility] COMPREHENSIVE DRUG SCREEN 01:12:00 Medica [facility] CBC WITH DIFF 2021-04-02 [facility] 01:12:00 Medical Branch PROTHROMBIN TIME / INR 2021-04-02 Steven Maloney [facility] 01:12:00 Medical Branch ACTIVATED PARTIAL THRMPLAS 2021-04-02 Steven Maloney [facility] MAMTA 01:12:00 Medical Branch URINALYSIS 2021-04-02 Steven Maloney [facility] xas 01:11:00 Medical Branch HB ECG ROUTINE & RHYTHM STRIP 2021-04-02 Steven Maloney [facility] 01:06:28 Medical Branch NOTICE OF PRIVACY PRACTICES 2021-04-02 Doctor Unassigned, [facility] 00:25:37 [facility] CONSENT/REFUSAL FOR DIAGNOSIS 2021-04-02 Doctor Unassigned, [facility] AND TREATMENT 00:24:42 [facility] AGREEMENTS AUTHORIZATIONS AND 2021-04-01 Doctor Cassie, [facility] IRREVOCABLE ASSIGNMENTS (FORM 05:01:00 [facility] 2000) AUTHORIZATION TO RELEASE PHI 2021-03-04 Doctor Cassie, [facility] TO [facility] 05:01:00 [facility] REFERRAL- REQUEST/RESPONSE 2021-02-20 Doctor Cassie, [facility] 05:01:00 [facility] EXTERNAL PROVIDER RECORDS 2020-09-19 Doctor Cassie, [facility] 06:01:00 [facility] PATIENT FINANCIAL POLICY 2020-08-30 Doctor Cassie, [facility] 19:45:11 [facility] NO SHOW OR MISSED APPOINTMENT 2020-08-30 [facility] 19:44:52 [facility] NOTICE OF PRIVACY PRACTICES 2020-08-30 Doctor Galessigned, [facility] 19:44:13 [facility] CONSENT TO CONTACT FOR 2020-08-30 Doctor Natalieigned, [facility] VOLUNTARY RESEARCH 19:43:51 [facility] h CONSENT/REFUSAL FOR DIAGNOSIS 2020-08-30 Doctor Natalieigned, [facility] AND TREATMENT 19:43:19 [facility] ASSIGNMENT OF BENEFITS 2020-08-30 Doctor Cassie, [facility] 19:42:42 [facility] Spinal puncture, lumbar, 2020-03-22 Tawny [facility] 03:02:00 Knee replacement 2014-11-09 [facility] 00:[facility]:00 Partial shoulder 2012-11-09 [facility] n replacement<sup>1</sup> 06:00:00 Arthrectomy of 2011-07-10 [facility] ankle<sup>2</sup> 05:00:00 Repair of ruptured aneurysm 2009-11-09 Mj rial [facility] of abdominal aorta involving 06:00:00 iliac vessels with graft Arthroscopy of knee 2003-11-09 [facility] Her bailey 00:00:00 Bilateral inguinal hernia 1997-11-09 Bozenaori al [place] repair 06:00:00 Destruction of brain tumor 1996-11-09 Bozenaor ial Mohan 06:00:00 Cholecystectomy 1994-11-09 [facility] [place] 06:00:00 Arteriectomy of aorta 1993-11-09 [facility] H ermann 06:00:00 Arthroplasty of joint of the 1993-11-09 [facility] [place] hand<sup>3</sup> 06:00:00 Caesarean section<sup>4</sup> Pa morial [facility] Plan of Care Planned Activity Planned Date Details Comments Source Future Scheduled 2023-07-03 Screening for [facility] Test 21:47:58 malignant neoplasm of colon (procedure) [code = 599812942] Future Scheduled 2023-07-03 Screening for [facility] Test 21:47:58 malignant neoplasm of colon (procedure) [code = 412014560] Future Scheduled 2023-07-03 Screening for [facility] Test 21:47:58 malignant neoplasm of colon (procedure) [code = 106296691] Future Scheduled 2023-07-03 Pneumococcal Vaccine: [facility] Test 21:47:58 Pediatrics (0 to 5 Years) and At-Risk Patients (6 to 64 Years) (1 - PCV) [code = Pneumococcal Vaccine: Pediatrics (0 to 5 Years) and At-Risk Patients (6 to 64 Years) (1 - PCV)] Future Scheduled 2023-07-03 Hepatitis C screening [facility] Test 21:47:58 (procedure) [code = 719464253] Future Scheduled 2023-07-03 Screening for [facility] Test 21:47:58 malignant neoplasm of cervix (procedure) [code = 939806474] Future Scheduled 2023-07-03 BREAST CANCER [facility] Test 21:47:58 SCREENING [code = BREAST CANCER SCREENING] Future Scheduled 2023-07-03 Screening for [facility] Test 21:47:58 malignant neoplasm of colon (procedure) [code = 970619393] Future Scheduled 2023-07-03 Screening for [facility] Test 21:47:58 malignant neoplasm of colon (procedure) [code = 685047684] Future Scheduled 2023-07-03 SHINGLES VACCINES ([address] [facility] Test 21:47:58 of 3) [code = SHINGLES VACCINES (2 of 3)] Future Scheduled 2023-07-03 COVID-19 VACCINE (2 - [facility] Test 21:47:58 Moderna series) [code = COVID-19 VACCINE (2 - Moderna series)] Future Scheduled 2023-07-03 INFLUENZA VACCINE (#1) M [facility] Test 21:47:58 [code = INFLUENZA VACCINE (#1)] Future Scheduled 2023-04-11 Pneumococcal Vaccine: [facility] Test 08:42:21 Pediatrics (0 to 5 Years) and At-Risk Patients (6 to 64 Years) (1 - PCV) [code = Pneumococcal Vaccine: Pediatrics (0 to 5 Years) and At-Risk Patients (6 to 64 Years) (1 - PCV)] Future Scheduled 2023-04-11 Hepatitis C screening [facility] Test 08:42:21 (procedure) [code = 390224637] Future Scheduled 2023-04-11 Screening for [facility] Test 08:42:21 malignant neoplasm of cervix (procedure) [code = 275556270] Future Scheduled 2023-04-11 BREAST CANCER [facility] Test 08:42:21 SCREENING [code = BREAST CANCER SCREENING] Future Scheduled 2023-04-11 COLONOSCOPY SCREENING [facility] Test 08:42:21 [code = COLONOSCOPY SCREENING] Future Scheduled 2023-04-11 SHINGLES VACCINES (1 Met [facility] Test 08:42:21 of 2) [code = SHINGLES VACCINES (1 of 2)] Future Scheduled 2023-04-11 COVID-19 VACCINE (2 - [facility] Test 08:42:21 Moderna series) [code = COVID-19 VACCINE (2 - Moderna series)] Future Scheduled 2023-04-11 INFLUENZA VACCINE Method [facility] Test 08:42:21 [code = INFLUENZA VACCINE] Future Scheduled 2023-02-07 Pneumococcal Vaccine: [facility] Test 08:40:07 Pediatrics (0 to 5 Years) and At-Risk Patients (6 to 64 Years) (1 - PCV) [code = Pneumococcal Vaccine: Pediatrics (0 to 5 Years) and At-Risk Patients (6 to 64 Years) (1 - PCV)] Future Scheduled 2023-02-07 Hepatitis C screening [facility] Test 08:40:07 (procedure) [code = 966167677] Future Scheduled 2023-02-07 Screening for [facility] Test 08:40:07 malignant neoplasm of cervix (procedure) [code = 136931409] Future Scheduled 2023-02-07 BREAST CANCER [facility] Test 08:40:07 SCREENING [code = BREAST CANCER SCREENING] Future Scheduled 2023-02-07 COLONOSCOPY SCREENING [facility] Test 08:40:07 [code = COLONOSCOPY SCREENING] Future Scheduled 2023-02-07 SHINGLES VACCINES ([address] [facility] Test 08:40:07 of 2) [code = SHINGLES VACCINES (1 of 2)] Future Scheduled 2023-02-07 COVID-19 VACCINE (2 - [facility] Test 08:40:07 Moderna series) [code = COVID-19 VACCINE (2 - Moderna series)] Future Scheduled 2023-02-07 INFLUENZA VACCINE [facility] Test 08:40:07 [code = INFLUENZA VACCINE] Future Scheduled 2023-02-07 Pneumococcal Vaccine: [facility] Test 08:40:07 Pediatrics (0 to 5 Years) and At-Risk Patients (6 to 64 Years) (1 - PCV) [code = Pneumococcal Vaccine: Pediatrics (0 to 5 Years) and At-Risk Patients (6 to 64 Years) (1 - PCV)] Future Scheduled 2023-02-07 Hepatitis C screening [facility] Test 08:40:07 (procedure) [code = 049601485] Future Scheduled 2023-02-07 Screening for [facility] Test 08:40:07 malignant neoplasm of cervix (procedure) [code = 436722546] Future Scheduled 2023-02-07 BREAST CANCER [facility] Test 08:40:07 SCREENING [code = BREAST CANCER SCREENING] Future Scheduled 2023-02-07 COLONOSCOPY SCREENING [facility] Test 08:40:07 [code = COLONOSCOPY SCREENING] Future Scheduled 2023-02-07 SHINGLES VACCINES ([address] [facility] Test 08:40:07 of 2) [code = SHINGLES VACCINES (1 of 2)] Future Scheduled 2023-02-07 COVID-19 VACCINE (2 - [facility] Test 08:40:07 Moderna series) [code = COVID-19 VACCINE (2 - Moderna series)] Future Scheduled 2023-02-07 INFLUENZA VACCINE Method [facility] Test 08:40:07 [code = INFLUENZA VACCINE] Future Scheduled 2023-01-28 Pneumococcal Vaccine: [facility] Test 02:35:07 Pediatrics (0 to 5 Years) and At-Risk Patients (6 to 64 Years) (1 - PCV) [code = Pneumococcal Vaccine: Pediatrics (0 to 5 Years) and At-Risk Patients (6 to 64 Years) (1 - PCV)] Future Scheduled 2023-01-28 Hepatitis C screening [facility] Test 02:35:07 (procedure) [code = [id number]] Future Scheduled 2023-01-28 Screening for [facility] Test 02:35:07 malignant neoplasm of cervix (procedure) [code = [id number]] Future Scheduled 2023-01-28 BREAST CANCER [facility] Test 02:35:07 SCREENING [code = BREAST CANCER SCREENING] Future Scheduled 2023-01-28 COLONOSCOPY SCREENING [facility] Test 02:35:07 [code = COLONOSCOPY SCREENING] Future Scheduled 2023-01-28 SHINGLES VACCINES ([address] [facility] Test 02:35:07 of 2) [code = SHINGLES VACCINES (1 of 2)] Future Scheduled 2023-01-28 COVID-19 VACCINE (2 - [facility] Test 02:35:07 Moderna series) [code = COVID-19 VACCINE (2 - Moderna series)] Future Scheduled 2023-01-28 INFLUENZA VACCINE Method [facility] Test 02:35:07 [code = INFLUENZA VACCINE] Future Scheduled 2023-01-11 Pneumococcal Vaccine: [facility] Test 22:54:33 Pediatrics (0 to 5 Years) and At-Risk Patients (6 to 64 Years) (1 - PCV) [code = Pneumococcal Vaccine: Pediatrics (0 to 5 Years) and At-Risk Patients (6 to 64 Years) (1 - PCV)] Future Scheduled 2023-01-11 Hepatitis C screening [facility] Test 22:54:33 (procedure) [code = [id number]] Future Scheduled 2023-01-11 Screening for [facility] Test 22:54:33 malignant neoplasm of cervix (procedure) [code = [id number]] Future Scheduled 2023-01-11 BREAST CANCER [facility] Test 22:54:33 SCREENING [code = BREAST CANCER SCREENING] Future Scheduled 2023-01-11 COLONOSCOPY SCREENING [facility] Test 22:54:33 [code = COLONOSCOPY SCREENING] Future Scheduled 2023-01-11 SHINGLES VACCINES ([address] [facility] Test 22:54:33 of 2) [code = SHINGLES VACCINES (1 of 2)] Future Scheduled 2023-01-11 COVID-19 VACCINE (2 - [facility] Test 22:54:33 Moderna series) [code = COVID-19 VACCINE (2 - Moderna series)] Future Scheduled 2023-01-11 INFLUENZA VACCINE Method [facility] Test 22:54:33 [code = INFLUENZA VACCINE] Future Scheduled 2022-12-31 Pneumococcal Vaccine: [facility] Test 14:16:47 Pediatrics (0 to 5 Years) and At-Risk Patients (6 to 64 Years) (1 - PCV) [code = Pneumococcal Vaccine: Pediatrics (0 to 5 Years) and At-Risk Patients (6 to 64 Years) (1 - PCV)] Future Scheduled 2022-12-31 Hepatitis C screening [facility] Test 14:16:47 (procedure) [code = [id number]] Future Scheduled 2022-12-31 Screening for [facility] Test 14:16:47 malignant neoplasm of cervix (procedure) [code = 794036451] Future Scheduled 2022-12-31 BREAST CANCER [facility] Test 14:16:47 SCREENING [code = BREAST CANCER SCREENING] Future Scheduled 2022-12-31 COLONOSCOPY SCREENING [facility] Test 14:16:47 [code = COLONOSCOPY SCREENING] Future Scheduled 2022-12-31 SHINGLES VACCINES ([address] [facility] Test 14:16:47 of 2) [code = SHINGLES VACCINES (1 of 2)] Future Scheduled 2022-12-31 COVID-19 VACCINE (2 - [facility] Test 14:16:47 Moderna series) [code = COVID-19 VACCINE (2 - Moderna series)] Future Scheduled 2022-12-31 INFLUENZA VACCINE Method [facility] Test 14:16:47 [code = INFLUENZA VACCINE] Future Scheduled 2022-10-20 INFLUENZA VACCINE [facility] Test 12:13:45 [code = INFLUENZA VACCINE] Future Scheduled 2022-10-20 HEPATITIS B VACCINES Met [facility] Test 12:13:45 (1 of 3 - 3-dose series) [code = HEPATITIS B VACCINES (1 of 3 - 3-dose series)] Future Scheduled 2022-10-20 Pneumococcal Vaccine: [facility] Test 12:13:45 Pediatrics (0 to 5 Years) and At-Risk Patients (6 to 64 Years) (1 - PCV) [code = Pneumococcal Vaccine: Pediatrics (0 to 5 Years) and At-Risk Patients (6 to 64 Years) (1 - PCV)] Future Scheduled 2022-10-20 Hepatitis C screening [facility] Test 12:13:45 (procedure) [code = 955820705] Future Scheduled 2022-10-20 Screening for [facility] Test 12:13:45 malignant neoplasm of cervix (procedure) [code = 190581977] Future Scheduled 2022-10-20 BREAST CANCER [facility] Test 12:13:45 SCREENING [code = BREAST CANCER SCREENING] Future Scheduled 2022-10-20 COLONOSCOPY SCREENING [facility] Test 12:13:45 [code = COLONOSCOPY SCREENING] Future Scheduled 2022-10-20 SHINGLES VACCINES ([address] [facility] Test 12:13:45 of 2) [code = SHINGLES VACCINES (1 of 2)] Future Scheduled 2022-10-20 COVID-19 VACCINE (2 - [facility] Test 12:13:45 Moderna series) [code = COVID-19 VACCINE (2 - Moderna series)] Future Scheduled 2022-08-06 HEPATITIS B VACCINES Met [facility] Test 12:50:33 (1 of 3 - 3-dose series) [code = HEPATITIS B VACCINES (1 of 3 - 3-dose series)] Future Scheduled 2022-08-06 Pneumococcal Vaccine: [facility] Test 12:50:33 Pediatrics (0 to 5 Years) and At-Risk Patients (6 to 64 Years) (1 - PCV) [code = Pneumococcal Vaccine: Pediatrics (0 to 5 Years) and At-Risk Patients (6 to 64 Years) (1 - PCV)] Future Scheduled 2022-08-06 Hepatitis C screening [facility] Test 12:50:33 (procedure) [code = 313704434] Future Scheduled 2022-08-06 Screening for [facility] Test 12:50:33 malignant neoplasm of cervix (procedure) [code = 727826394] Future Scheduled 2022-08-06 BREAST CANCER [facility] Test 12:50:33 SCREENING [code = BREAST CANCER SCREENING] Future Scheduled 2022-08-06 COLONOSCOPY SCREENING [facility] Test 12:50:33 [code = COLONOSCOPY SCREENING] Future Scheduled 2022-08-06 SHINGLES VACCINES ([address] [facility] Test 12:50:33 of 2) [code = SHINGLES VACCINES (1 of 2)] Future Scheduled 2022-08-06 COVID-19 VACCINE (2 - [facility] Test 12:50:33 Moderna series) [code = COVID-19 VACCINE (2 - Moderna series)] Future Scheduled 2022-08-06 INFLUENZA VACCINE Method [facility] Test 12:50:33 [code = INFLUENZA VACCINE] Future Scheduled 2022-07-23 HEPATITIS B VACCINES Met [facility] Test 10:07:00 (1 of 3 - 3-dose series) [code = HEPATITIS B VACCINES (1 of 3 - 3-dose series)] Future Scheduled 2022-07-23 Pneumococcal Vaccine: [facility] Test 10:07:00 Pediatrics (0 to 5 Years) and At-Risk Patients (6 to 64 Years) (1 - PCV) [code = Pneumococcal Vaccine: Pediatrics (0 to 5 Years) and At-Risk Patients (6 to 64 Years) (1 - PCV)] Future Scheduled 2022-07-23 Hepatitis C screening [facility] Test 10:07:00 (procedure) [code = 334860609] Future Scheduled 2022-07-23 Screening for [facility] Test 10:07:00 malignant neoplasm of cervix (procedure) [code = 439289966] Future Scheduled 2022-07-23 BREAST CANCER [facility] Test 10:07:00 SCREENING [code = BREAST CANCER SCREENING] Future Scheduled 2022-07-23 COLONOSCOPY SCREENING [facility] Test 10:07:00 [code = COLONOSCOPY SCREENING] Future Scheduled 2022-07-23 SHINGLES VACCINES ([address] [facility] Test 10:07:00 of 2) [code = SHINGLES VACCINES (1 of 2)] Future Scheduled 2022-07-23 COVID-19 VACCINE (2 - [facility] Test 10:07:00 Moderna series) [code = COVID-19 VACCINE (2 - Moderna series)] Future Scheduled 2022-07-23 INFLUENZA VACCINE Method [facility] Test 10:07:00 [code = INFLUENZA VACCINE] Future Scheduled 2022-07-10 HEPATITIS B VACCINES Met [facility] Test 12:42:30 (1 of 3 - 3-dose series) [code = HEPATITIS B VACCINES (1 of 3 - 3-dose series)] Future Scheduled 2022-07-10 Pneumococcal Vaccine: [facility] Test 12:42:30 Pediatrics (0 to 5 Years) and At-Risk Patients (6 to 64 Years) (1 - PCV) [code = Pneumococcal Vaccine: Pediatrics (0 to 5 Years) and At-Risk Patients (6 to 64 Years) (1 - PCV)] Future Scheduled 2022-07-10 Hepatitis C screening [facility] Test 12:42:30 (procedure) [code = 671745084] Future Scheduled 2022-07-10 Screening for [facility] Test 12:42:30 malignant neoplasm of cervix (procedure) [code = 084227314] Future Scheduled 2022-07-10 BREAST CANCER [facility] Test 12:42:30 SCREENING [code = BREAST CANCER SCREENING] Future Scheduled 2022-07-10 COLONOSCOPY SCREENING [facility] Test 12:42:30 [code = COLONOSCOPY SCREENING] Future Scheduled 2022-07-10 SHINGLES VACCINES ([address] [facility] Test 12:42:30 of 2) [code = SHINGLES VACCINES (1 of 2)] Future Scheduled 2022-07-10 COVID-19 VACCINE (2 - [facility] Test 12:42:30 Moderna series) [code = COVID-19 VACCINE (2 - Moderna series)] Future Scheduled 2022-07-10 INFLUENZA VACCINE [facility] Test 12:42:30 [code = INFLUENZA VACCINE] Future Scheduled 2022-02-08 Hepatitis C screening [facility] Test 18:08:57 (procedure) [code = 943004065] Future Scheduled 2022-02-08 Screening for [facility] Test 18:08:57 malignant neoplasm of cervix (procedure) [code = 374509673] Future Scheduled 2022-02-08 BREAST CANCER [facility] Test 18:08:57 SCREENING [code = BREAST CANCER SCREENING] Future Scheduled 2022-02-08 COLONOSCOPY SCREENING [facility] Test 18:08:57 [code = COLONOSCOPY SCREENING] Future Scheduled 2022-02-08 COVID-19 VACCINE (2 - [facility] Test 18:08:57 Moderna 3-dose series) [code = COVID-19 VACCINE (2 - Moderna 3-dose series)] Future Scheduled 2022-02-08 INFLUENZA VACCINE Method [facility] Test 18:08:57 [code = INFLUENZA VACCINE] Encounters Start End Encounter Admission Attending Care Care Encounter Source Date/Time Date/Time Type Type Clinicians Facility Department ID 2023-05-25 Outpatient [facility] [id number] [place] 09:48:[id number] [facility] 2023-05-15 Outpatient [facility] [id number] [place] 13:57:[id number] [facility] 2023-04-13 Outpatient [facility] [id number] [place] 08:12:[id number] [facility] 2023-04-11 Outpatient [facility] [id number] [place] 08:44:[id number] [facility] 2023-03-16 Outpatient [facility] [id number] [place] 16:01:[id number] [facility] 2023-02-26 Outpatient [facility] [id number] [place] 14:33:[id number] [facility] 2023-02-07 Outpatient [facility] [id number] [place] 02:28:[id number] [facility] 2023-02-06 Outpatient [facility] [id number] [place] 12:55:[id number] [facility] 2023-01-28 Outpatient [facility] [id number] [place] 00:28:[id number] [facility] 2023-01-27 Outpatient [facility] [id number] [place] 13:45:[id number] [facility] 2023-01-20 Outpatient [facility] [id number] [place] 02:18:[id number] [facility] 2023-01-12 Outpatient [facility] [id number] [place] 07:29:[id number] [facility] 2023-01-11 Outpatient [facility] [id number] [place] 22:54:54 [id number] Health 2023-01-07 Outpatient [facility] [id number] [place] 00:28:14 [id number] Health 2023-01-06 Outpatient [facility] [id number] [place] 15:49:45 [id number] Health 2023-01-04 Outpatient [facility] [id number] [place] 10:56:23 [id number] Health 2023-01-01 Outpatient [facility] [id number] [place] 05:28:12 [id number] Health 2022-12-31 Outpatient [facility] [id number] [place] 03:28:13 [id number] Health 2022-12-30 Outpatient [facility] [id number] [place] 08:57:[id number] [facility] 2022-12-25 Outpatient [facility] [id number] [place] 16:20:[id number] [facility] 2022-12-17 Outpatient [facility] [id number] [place] 10:59:09 [id number] Health 2022-12-14 Outpatient [facility] [id number] [place] 10:32:[id number] [facility] 2022-12-11 Outpatient [facility] [id number] [place] 18:27:14 [id number] 2022-11-24 Outpatient [facility] [id number] [place] 09:05:[id number] [facility] 2022-11-20 Outpatient [facility] [id number] [place] 09:49:[id number] [facility] 2022-10-24 Outpatient [facility] [id number] [place] 09:56:45 [id number] Health 2022-10-21 Outpatient [facility] [id number] [place] 11:48:[id number] [facility] 2022-08-25 Outpatient [facility] [id number] [place] 15:14:[id number] [facility] 2021-08-26 Outpatient [facility] [id number] [place] 10:37:[address] [facility] 2021-08-09 Outpatient LINAD, [facility] [id number] [place] 11:36:[address] [facility] 2023-06-18 2023-06-18 Outpatient GC_GCBZW_Ka PRIV PRIV [id number] [facility] 00:00:00 00:00:00 jarred_Liza [id number] Medic al 2023-06-17 2023-06-17 Outpatient GC_GCBZW_Ka PRIV PRIV [id number] [facility] 00:00:00 00:00:00 diyala_S [id number] Medic al 2023-06-17 2023-06-17 Outpatient GC_GCBZW_Ka PRIV PRIV [id number] [facility] 00:00:00 00:00:00 diyala_S [id number] Medic al 2023-06-10 2023-06-10 Outpatient GC_GCBZW_Ka PRIV PRIV [id number] [facility] 00:00:00 00:00:00 diyala_S [id number] Medic al 2023-06-10 2023-06-10 Outpatient GC_GCBZW_Ka PRIV PRIV [id number] [facility] 00:00:00 00:00:00 diyala_S [id number] Medic al 2023-06-09 2023-06-09 Outpatient [facility] [id number] [place] 11:00:00 11:00:00 Health 2023-06-08 2023-06-08 Telemedici Gwen, [facility] [id number] [id number] [place] 16:00:00 16:48:12 swapnil ROSS 350.1.13.[address] [facility] 9.2.7.2.686 [id number] 8 2023-06-08 2023-06-08 Outpatient GC_GCBZW_Ka PRIV PRIV [id number] [facility] 00:00:00 00:00:00 diyala_S [id number] Medic al 2023-06-07 2023-06-07 Outpatient GC_GCBZW_Ka PRIV PRIV [id number] [facility] 00:00:00 00:00:00 diyala_S [id number] Medic al 2023-06-02 2023-06-02 Outpatient [facility] [id number] [place] 11:00:00 11:32:53 Health 2023-05-26 2023-05-26 Outpatient [facility] [id number] [place] 11:00:00 11:46:05 Health 2023-05-19 2023-05-19 Outpatient [facility] [id number] [place] 11:00:00 11:53:41 Health 2023-05-05 2023-05-05 Outpatient [facility] [id number] [place] 11:00:00 11:00:00 Health 2023-04-28 2023-04-28 Outpatient [facility] [id number] [place] 11:00:00 11:00:00 Health 2023-04-21 2023-04-21 Outpatient [facility] [id number] [place] 11:00:00 11:59:51 Health 2023-04-13 2023-04-13 Outpatient [facility] [id number] [place] 09:00:00 10:56:51 Health 2023-04-13 2023-04-13 Outpatient Cary GALE VIDAL [facility] [id number] Univers 10:00:00 10:00:00 VIDAL GALE [facility] 2023-04-06 2023-04-06 Outpatient MHIE MHIE [id number] [facility]oria 10:00:00 10:00:00 01 l Mohan 2023-04-06 2023-04-06 Outpatient MHIE MHIE [id number] [facility] 10:00:00 10:00:00 00 l Mohan 2023-03-30 2023-03-30 Outpatient GWEN [facility] [id number] [place] 16:00:00 16:00:00 ISABEL nolen 2023-02-10 2023-02-10 Outpatient VELASQUEZ, [facility] [id number] [place] 11:30:00 11:30:00 CY Ko h 2023-01-19 2023-01-20 Outpt Diag MHIE HS [id number] Memoria 17:41:00 04:59:00 Services Outpatient 08 l Imaging Mohangabriel Johnston 2023-01-19 2023-01-19 Outpatient MONET SnowOIP MHOIP [id number] 12:41:00 23:59:00 Isabel Todd 08 2023-01-07 2023-01-08 Outpt Diag MHIE MHHS [id number] Memoria 20:05:00 05:59:00 Services Outpatient 07 l Imaging Louisvillegabriel Johnston 2023-01-07 2023-01-07 Outpatient EFREN Lazar MHOIP [id number] 14:05:00 23:59:00 Bright Donahue 07 2023-01-06 2023-01-07 Outpt Diag NANCY [facility]KE [facility] [id number] Memoria 15:19:00 05:59:00 Services Outpatient 06 l José Johnston 2023-01-06 2023-01-06 Outpatient Eder, MHO[facility] [id number] 09:19:00 23:59:00 Kaylee Fish 06 2022-12-30 2022-12-30 Office VERITO Snow 6410 1.2.840.114 [id number] [place] 13:30:00 14:48:25 Visit Isabel DINERO 350.1.13.58 Health 9.2.7.2.686 [id number] 2022-12-30 2022-12-30 Outpatient [facility] [id number] [place] 11:00:00 12:31:57 Health 2022-12-24 2022-12-24 Telephone Harriet ARMIROSLAVA [id number] [id number] Univers 00:00:00 00:00:00 Liza JETT 350.1.13.10 [facility] [place] [id number] [facility] AND [address] [facility] 2022-12-10 2022-12-10 Outpatient VIDAL PENNINGTON [facility] [id number] Univers 14:00:00 14:00:00 VIDAL GALE ity of [facility] 2022-12-08 2022-12-08 Orders Wilma Forde [id number] [id number] Univers 00:00:00 00:00:00 Only Loyd MATTHEWS 350.1.13.10 it y of HOSPITAL 4.2.7.2.686 Reinaldo [place] [id number] [place] [address] [place] 2022-12-04 2022-12-04 Telephone Max ARMIROSLAVA SIMONS 1.2.840.11 [id number] Univers 00:00:00 00:00:00 Bright [place] 350.1.13.10 it [place] [id number] [address] 2022-12-04 2022-12-04 Telephone Max [facility] SIMONS 1.2.840.11 [id number] Univers 00:00:00 00:00:00 Bright [place] 350.1.13.10 it [place] [id number] [address] 2022-12-01 2022-12-01 Telephone Larios, [facility] 1.2.099.087 [id number] Univers 00:00:00 00:00:00 Liza JETT 350.1.13.10 [facility] [place] [id number] [facility] AND [address] [facility] 2022-11-28 2022-11-28 Outpatient R [facility]IGHT [facility] B [id number] Univers 09:30:00 10:11:13 BRIGHT LAZAR [facility] 2022-11-28 2022-11-28 [facility] 1.2.840.114 [id number] Univers 09:30:00 10:11:13 Visit Bright [place] 350.1.13.10 it [place] [id number] [address] 2022-11-28 2022-11-28 Orders Doctor FARFAN 1.2.840.114 [id number] Univers 00:00:00 00:00:00 Only Unassigned, CASSIE 350.1.13.10 ity of [facility] 4.2.7.2.686 Reinaldo [place] [id number] [place] [address] [place] 2022-11-27 2022-11-27 Outpatient R BRIGHT LAZAR [facility] B [id number] Univers 09:00:00 09:00:00 BRIGHT LAZAR [facility] 2022-11-26 2022-11-26 Outpatient [facility] [id number] [place] 13:30:00 13:30:00 Health 2022-11-26 2022-11-26 [facility] [id number] [place] 09:00:00 09:00:00 [facility] 2022-11-19 2022-11-19 Outpatient RADHA, [facility] [id number] [place] 08:30:00 08:30:00 [facility] 2022-10-28 2022-10-28 Outpatient GWEN, [facility] [id number] [place] 14:00:00 14:00:00 ISABEL Heal 2022-10-28 2022-10-28 Outpatient [facility] [id number] [place] 11:00:00 11:00:00 Health 2022-10-23 2022-10-23 Outpatient RADHA, [facility] [id number] [place] 12:30:00 12:30:00 [facility] 2022-09-11 2022-09-11 Telephone Harriet [facility] [id number] [id number] Univers 00:00:00 00:00:00 L[facility] 350.1.13.[address] [facility] 4.2.7.2.686 [facility] [id number] [address] [facility] 2022-08-27 2022-08-27 Telemedici Gwen, [facility] [id number] 1.2.840.114 [id number] [place] 08:00:00 08:55:08 ne Isabel ROSS 350.1.13.[address] [facility] 9.2.7.2.686 [id number] 8 2022-08-19 2022-08-22 Observatio nullFlavo [facility] [id number] Memoria 18:42:22 19:34:00 n cary Carlos [facility] 2022-08-19 2022-08-22 Observatio nullFlavo [facility] [id number] Memoria 18:42:22 19:34:00 yair Carlos [facility] 2022-08-19 2022-08-22 Outpatient MONET MEZA MED [id number] Memoria 16:45:00 14:34:00 JEFFERSONZachariah yuen 2022-08-19 2022-08-22 Outpatient LAURA Sidhu [facility] [id number] 13:42:22 14:34:00 Jeffersonzachariah Segundo 05 2022-07-28 2022-07-28 Office VERTIO Snow 6410 1.2.840.114 [id number] [place] 14:30:00 15:47:52 Visit Isabel ROSS 350.1.13.[address] [facility] 9.2.7.2.686 [id number] 2022-07-21 2022-07-21 Emergency X [facility] ERT [id number] Univers 15:26:00 18:24:[address] [facility] 2022-07-21 2022-07-21 Emergency [facility] 1.2.840.114 [id number] Univers 15:26:00 18:24:[address] [facility] 350.1.13.10 i ty [facility] 4.2.7.2.686 [facility] [id number] [address] 2022-04-02 2022-04-02 Telephone Harriet [facility] 1.2.612.918 [id number] [facility] 00:00:00 00:00:00 Liza JETT 350.1.13.[address] [facility] 4.2.7.2.686 [facility] [id number] [facility] AND [address] [facility] 2022-02-03 2022-02-04 Emergency [facility] [id number] Memoria 15:10:24 01:37:00 cary Hendrickson [facility] 2022-02-03 2022-02-04 Emergency [facility] [id number] Memoria 15:10:24 01:37:00 cary yuen [facility] 2022-02-03 2022-02-03 Outpatient Aznaurova-A [facility] [id number] 10:10:24 20:37:00 Madhavi santos 2022-02-03 2022-02-03 Outpatient Aznaurova-A [facility] [id number] 10:10:24 20:37:00 Madhavi santos 2022-02-03 2022-02-03 Emergency E AZNAUROVA-A MHBL MHBL [id number] MHBL 10:10:00 20:37:00 JOSEPH SANTOS 2022-01-30 2022-01-30 Outpatient Cary ZABALA [facility] [id number] Univers 14:30:00 14:30:00 [facility] 2022-01-01 2022-01-01 Orders nullFlavo [facility] [id number] Memoria 00:00:00 00:00:00 Only cary Preston 2022-01-01 2022-01-01 Orders Doctor FARFAN [id number] Univers 00:00:00 00:00:00 Only Unassigned, CASSIE [id number] [facility] [place] [facility] [id number] Reinaldo as [phone] [address] 2021-12-31 2021-12-31 Outpatient Cary ZABALA [facility] [id number] Univers 14:30:00 14:30:00 [facility] 2021-11-04 2021-11-04 Laboratory Only, Ang Db Test [facility] 1.2.8 40.114 [id number] Univers 16:15:00 16:30:00 Only [facility] 350.1.13.10 ity [facility] 4.2.7.2.686 Reinaldo as BABS?BLEA [phone] [address] OFFICE [facility] 2021-11-04 2021-11-04 Outpatient Cary RUIZ [facility] [id number] Univers 16:15:00 16:15:00 S[address] o f [facility] 2021-09-17 2021-09-17 Program Consultant nullFlavo [facility] Health 8 [id number] Memoria 23:25:33 23:40:33 Visit cary yuen Office [facility] Phlebot[facility] 2021-09-17 2021-09-17 Program Consultant Ashley Nieves Lab Main [facility] 1.2.8 40.114 [id number] Univers 17:25:33 17:40:33 [facility] 350.1.13.1 0 ity [facility] 4.[place] [phone] Pa dical NAL 353 [facility] 2021-09-17 2021-09-17 Outpatient R NICK [facility] [id number] Univers 16:00:00 16:00:00 BEAU [facility] 2021-09-17 2021-09-17 Orders nullFlavo [facility] [id number] Memoria 00:00:00 00:00:00 Only r alpa Preston 2021-09-17 2021-09-17 Orders Doctor ADOLPH 1.2.840.114 [id number] Univers 00:00:00 00:00:00 Only Unassigned, CASSIE 350.1.13.10 ity of [place] [facility] 4.2.7.2.686 Reinaldo as [phone] [address] 2021-08-29 2021-08-29 Outpatient R SAGRARIO [facility] [id number] Univers 13:00:00 13:00:00 EMILY [facility] 2021-08-26 2021-08-26 Office VERITO MCKEON 6400 1.2.901.509 3089 [id number] [place] 10:03:44 10:18:[address] 350.1.13.58 Health 9.2.7.2.686 [id number] 3 2021-08-16 2021-08-16 Travel 1.2.840.1 1.2.942.844 7624 [id number] Methodi 00:00:00 00:00:[address] 3.430.2.7 0.2.7.3.698 Ho spita .3.521332 084.8 l .8 2021-08-13 2021-08-13 Travel 1.2.840.1 1.2.187.460 3646 296976 Methodi 00:00:00 00:00:[address] 3.430.2.7 0.2.7.3.698 Ho spita .3.964021 084.8 l .8 2021-08-12 2021-08-12 Office Martin, 1.2.840.1 [id number] 8701 Methodi 09:00:00 10:09:31 Visit Tae Campbell 02910.1.[address] 3.430.2.7 Hospit a .3.429017 l .8 2021-08-09 2021-08-10 Outpt Diag nullFlavo [facility] [id number] Memoria 15:08:00 04:59:00 Services r Outpatient 05 l Imaging [place] [facility] 2021-08-09 2021-08-10 Outpt Diag nullFlavo [facility] [id number] Memoria 15:08:00 04:59:00 Services r Outpatient 05 l Imaging [place] 2021-08-09 2021-08-09 Outpatient Gwen, [facility] [id number] 10:08:00 23:59:00 Isabel Todd 05 2021-08-07 2021-08-07 Telephone [place], 1.2.840.1 [id number] Methodi 00:00:00 00:00:[address] Julius 3.430.2.7 Hospi ta .3.293073 l .8 2021-08-07 2021-08-07 Travel 1.2.840.1 1.2.596.064 2636 945280 Methodi 00:00:00 00:00:[address] 3.430.2.7 0.2.7.3.698 spita .3.600122 084.8 l .8 2021-08-06 2021-08-06 Telephone [place], 1.2.840.1 [id number] Methodi 00:00:00 00:00:00 Tae Campbell 73587.1.[address] 3.430.2.7 Hospit a .3.108779 l .8 2021-08-02 2021-08-02 [facility], 1.2.840.1 [id number] 10113 Methodi 13:00:00 23:59:00 Encounter Tae Campbell 08493.1.1 248 s t 3.430.2.7 Hospit a .3.160133 l .8 2021-08-02 2021-08-02 [facility] [place], 1.2.840.1 [id number] 3151 Methodi 16:35:00 16:40:00 Tae Campbell 69259.1.[address] 3.430.2.7 Hospit a .3.895480 l .8 2021-08-02 2021-08-02 [facility], 1.2.840.1 [id number] Methodi 12:00:00 12:59:00 Encounter Tae Campbell 28736.1.1 245 s t 3.430.2.7 Hospit a .3.758260 l .8 2021-08-02 2021-08-02 [facility], 1.2.840.1 [id number] 74917 Methodi 11:00:00 11:59:00 Encounter Tae Campbell 64904.1.1 247 s t 3.430.2.7 Hospit a .3.158374 l .8 2021-08-02 2021-08-02 [facility], 1.2.840.1 [id number] Methodi 10:07:40 10:59:00 Encounter Tae Campbell 76650.1.1 246 s t 3.430.2.7 Hospit a .3.670274 l .8 2021-08-02 2021-08-02 Travel 1.2.840.1 1.2.785.434 6481 680082 Methodi 00:00:00 00:00:[address] 3.430.2.7 0.2.7.3.698 Ho spita .3.989879 084.8 l .8 2021-07-31 2021-07-31 EXT [facility] OP Gwen, EXT MSRDP 1.2.840.114 1 [id number] [place] 00:00:00 00:00:00 [facility] LOCATION 350.1.13.58 Health 9.2.7.2.686 [phone] 0 2021-07-31 2021-07-31 EXT [facility] OP Gwen, EXT MSRDP 1.2.840.114 1 [id number] [place] 00:00:00 00:00:00 Isabel LOCATION 350.1.13.58 Health 9.2.7.2.686 [phone] 0 2021-07-29 2021-07-29 Travel 1.2.840.1 1.2.443.332 3337 208344 Methodi 00:00:00 00:00:[address] 3.430.2.7 0.2.7.3.698 Ho spita .3.282546 084.8 l .8 2021-07-10 2021-07-10 Travel 1.2.840.1 1.2.322.092 2184 699423 Methodi 00:00:00 00:00:[address] 3.430.2.7 0.2.7.3.698 Ho spita .3.515125 084.8 l .8 2021-07-03 2021-07-03 Office [place], 1.2.840.1 [id number] [id number] 2293 Methodi 13:45:00 16:40:55 Visit Tae Campbell 95957.1.[address] 3.430.2.7 Hospit a .3.345401 l .8 2021-07-03 2021-07-03 Travel 1.2.840.1 1.2.576.831 3242 145399 Methodi 00:00:00 00:00:[address] 3.430.2.7 0.2.7.3.698 Ho spita .3.245868 084.8 l .8 2021-07-01 2021-07-01 Travel 1.2.840.1 1.2.906.366 3492 444959 Methodi 00:00:00 00:00:[address] 3.430.2.7 0.2.7.3.698 Ho spita .3.013124 084.8 l .8 2021-05-31 2021-05-31 Office nullFlavo [facility] Health 8588 0675 Memoria 21:24:31 21:59:54 Visit cary Preston 2021-05-31 2021-05-31 Office [facility] 1.2.840.114 [id number] Univers 16:24:31 16:59:54 Visit Goyo Trinh 350.1.13.10 ity of [place] [phone] [facility] 092 [facility] 2021-05-31 2021-05-31 Outpatient R GOYO CLARK [facility] [id number] Univers 16:20:00 16:20:00 GOYO CLARK [facility] 2021-05-27 2021-05-27 Outpatient Cary SIMMONS [facility] [id number] Univers 10:30:00 10:30:00 CECELIA [facility] 2021-04-30 2021-04-30 Orders nullFlavo [facility] [id number] Memoria 00:00:00 00:00:00 Only cary Preston 2021-04-30 2021-04-30 Orders Doctor FARFAN 1.2.840.114 [id number] Univers 00:00:00 00:00:00 Only Unassigned, CASSIE 350.1.13.10 ity of [place] [facility] 4.2.7.2.[phone] [facility] 009 Branch 2021-04-04 2021-04-04 Transition nullFlavo [facility] [id number] Memoria 00:00:00 00:00:00 of Care [facility] 2021-04-04 2021-04-04 Transition Rylie Clay 1.2.840.114 [id number] Univers 00:00:00 00:00:00 of Care Chelsey Mckeon 350.1.13.10 it y of [place] 4[place]2.7.2.[address] [phone] [facility] 403 Branch 2021-04-02 2021-04-03 [facility] [id number] Memoria 00:39:00 21:59:00 Encounter cary Preston (JEN 10B) 2021-04-01 2021-04-03 [facility] Steven Maloney 1.2.840.1 14 [id number] Univers 19:39:00 16:59:00 Encounter Liza Larios 350.1. 13.10 ity [facility] 4.2.7.2.686 [place] [phone] [place] 577644 [place] 2021-04-01 2021-04-03 Inpatient U HARRIET [facility] [id number] Univers 19:39:00 16:59:00 LIZA [facility] 2021-04-01 2021-04-01 Nurse nullFlavo ACCESS [id number] Memoria 00:00:00 00:00:00 Triage r MICHELLE Preston 2021-04-01 2021-04-01 Nurse ADOLPH Rutherford 1.2.439.343 0538 [id number] Univers 00:00:00 00:00:00 Triage Christian CASSIE 350.1.13.10 it [facility] 4.2.7.2.[phone] [facility] 019 Branch 2021-03-19 2021-03-19 Outpatient GOYO RODRIGUEZ [facility] [id number] Univers 13:00:00 13:00:00 GOYO CLARK den[facility] 2021-03-04 2021-03-04 Office nullFlavo [facility] [id number] Memoria 19:56:39 21:12:00 Visit r Neurology-A apla [place] 2021-03-04 2021-03-04 Office Mane [facility] 1.2.840.114 [id number] Univers 14:56:39 16:12:00 Visit Goyo Trinh 350.1.13.10 ity [facility] [place] [phone] [place] 968182 [facility] 2021-03-04 2021-03-04 Outpatient GOYO RODRIGUEZ [facility] [id number] Univers 15:00:00 15:00:00 GOYO CLARK [facility] 2021-03-04 2021-03-04 Orders nullFlavo [facility] [id number] Memoria 00:00:00 00:00:00 Only cary Preston 2021-03-04 2021-03-04 Orders Doctor FARFAN 1.2.840.114 [id number] Univers 00:00:00 00:00:00 Only UnassCASSIE dockery 350.1.13.10 ity [facility] 4.2.7.2.[phone] [facility] 009 Branch 2021-02-20 2021-02-20 Orders nullFlavo [facility] [id number] Memoria 00:00:00 00:00:00 Only cary Preston 2021-02-20 2021-02-20 Orders Doctor FARFAN 1.2.840.114 [id number] Univers 00:00:00 00:00:00 Only GalessCASSIE dockery 350.1.13.10 [facility] 4.2.7.2.[phone] [facility] 009 Branch 2021-01-23 2021-01-23 Outpatient [facility] [id number] Univers 14:00:00 14:00:00 BALJIT [facility] 2021-01-19 2021-01-19 Patient nullFlavo [facility] [id number] Memoria 00:00:00 00:00:00 Outreach r Internal l Medicine - Donna Werner 2021-01-19 2021-01-19 [facility] 1.2.840.114 [id number] 00:00:00 00:00:00 Outreach Baljit PRIMARY 350.1.13.10 [place] [facility] 4.2.7.2.686 PAVILLION [phone] [id number] 2021-01-19 2021-01-19 Patient [facility] 1.2.840.114 [id number] Univers 00:00:00 00:00:00 Outreach Baljit PRIMARY 350.1.13.10 i ty of [place] [facility] [phone] Pa dical [address] [place] [address] 2020-10-30 2020-10-31 Outpt Diag nullFlavo [facility] [id number] Memoria 17:48:00 05:59:00 Services r Outpatient 04 l [facility] 2020-10-30 2020-10-[place] [id number] Memoria 17:48:00 05:59:00 Services r Outpatient 04 l Imaging - Salvatore n [facility] 2020-10-30 2020-10-30 Outpatient MONET Snow35 35 [id number] 11:48:00 23:59:00 Isabel Y 04 2020-09-27 2020-09-29 Inpatient nullFlavo [facility] [id number] Memoria 08:06:00 01:15:[address] 2020-09-27 2020-09-29 Inpatient nullFlavo [facility] [id number] Memoria 08:06:00 01:15:[address] 2020-09-28 2020-09-28 Outpatient U DANIELA, [facility] 032 4 [facility] 15:16:00 19:15:00 [place] 2020-09-27 2020-09-28 Outpatient Daniela [facility] 063 [id number] 02:06:00 19:15:[address] 2020-09-27 2020-09-27 Emergency nullFlavo [facility] [id number] Memoria 00:28:40 07:35:00 r [place] 03 [facility] 2020-09-27 2020-09-27 Emergency nullFlavo [facility] [id number] Memoria 00:28:40 07:35:00 r [place] 03 [facility] 2020-09-26 2020-09-27 Outpatient Elvi, Lashawn MHPL MHPL [id number] 18:28:40 01:35:00 Kellie 03 2020-09-26 2020-09-27 Outpatient Elvi, Lashawn MHPL MHPL [id number] 18:28:40 01:35:00 Kellie 03 2020-09-26 2020-09-27 Emergency E ELVI, LASHAWN MHBL MHBL 7503 MHBL 18:28:00 01:35:2020-09-25 2020-09-25 Laboratory nullFlavo [facility] Health 7 [id number] Memoria 00:30:16 00:50:16 Only r Family l Medicine - Donna jackson [place] 2020-09-24 2020-09-24 Laboratory Lab, [facility] 1.2.840.114 [id number] 18:30:16 18:50:16 Only Fam Pob I Health 350.1.13.10 [place] 4.2.7.2.686 Professio [phone] nal [address] 2020-09-24 2020-09-24 Laboratory Lab, [facility] Fam Pob I [facility] 1.2. 840.114 [id number] Univers 18:30:16 18:50:16 Only Tona Mattson [facility] 350.1.13.10 ity of [place] 4.2.7.2.686 [facility] [phone] Pa dical [address] Office [address] 2020-09-24 2020-09-24 Outpatient R SRINIVASAN [facility] [id number] [facility] 18:40:00 18:40:[address] of [facility] 2020-09-19 2020-09-19 Orders nullFlavo [facility] [id number] Memoria 00:00:00 00:00:00 Only cary Preston 2020-09-19 2020-09-19 Orders Doctor FARFAN 1.2.840.114 [id number] 00:00:00 00:00:00 Only Unassigned, CASSIE 350.1.13.10 [place] [facility] [id number] [facility] 2020-09-19 2020-09-19 Orders Doctor FARFAN 1.2.840.114 [id number] Univers 00:00:00 00:00:00 Only Unassigned, CASSIE 350.1.13.10 ity of [place] [facility] 4.2.7.2.686 Reinaldo as [phone] [address] 2020-09-05 2020-09-05 Case nullFlavo [facility] Health [id number] Memoria 00:00:00 00:00:00 Management r [facility] Usman donahue [place] 2020-09-05 2020-09-05 Case [facility] 1.2.073.665 [id number] 00:00:00 00:00:00 Management Annika Trinh 350.1.13.10 [place] 4.2.7.2.686 Professio [phone] [address] 2020-09-05 2020-09-05 Case Jaime [facility] 1.2.129.822 [id number] Univers 00:00:00 00:00:00 Management Annika Trinh 350.1.13.10 ity of [place] [phone] Pa dical [address] 2020-08-30 2020-08-30 Office nullFlavo [facility] Health [id number] Memoria 19:45:50 20:47:54 Visit r Sheree[facility] l [facility]riel [place] 2020-08-30 2020-08-30 Office [facility]ides [facility] 1.2.425.840 [id number] Univers 14:45:50 15:47:54 Visit Annika Brunoton 350.1.13.10 i ty of [place] [phone] [address] 2020-08-30 2020-08-30 [facility] [id number] Univers 14:30:00 14:30:00 ANNIKA ity [facility] 2020-08-30 2020-08-30 Orders nullFlavo [facility] [id number] Memoria 00:00:00 00:00:00 Only r alpa Preston 2020-08-30 2020-08-30 Orders Doctor ADOLPH 1.2.840.114 [id number] Univers 00:00:00 00:00:00 Only Unassigned, CASSIE 350.1.13.10 ity of [place] 4.2.7.2.686 Reinaldo as [phone] [address] 2020-05-03 2020-05-04 Outpt Diag nullFlavo [facility] [id number] Memoria 20:48:00 04:59:00 Services r Outpatient 02 l José Preston [place] 2020-05-03 2020-05-04 Outpt Diag nullFlavo [facility] [id number] Memoria 20:48:00 04:59:00 Services r Outpatient 02 l [facility] 2020-05-03 2020-05-03 Outpatient MONET CalixOIP MHOIP [id number] 15:48:00 23:59:00 Nedra 02 [facility] 2020-04-25 2020-04-25 Emergency nullFlavo [facility] [id number] Memoria 02:30:41 08:03:00 r [place] 02 l [facility] 2020-04-25 2020-04-25 Emergency nullFlavo [facility] [id number] Memoria 02:30:41 08:03:00 r [place] 02 l [facility] 2020-04-24 2020-04-25 Outpatient Aznaurova-A MHPL MHPL [id number] 21:30:41 03:03:00 ndeAnastasia [facility] 2020-04-24 2020-04-25 Emergency E AZNAUROVA-A MHBL MHBL [id number] MHBL 21:30:00 03:03:00 JOSEPH SANTOS 2020-04-12 2020-04-13 Outpt Diag nullFlavo [facility] [id number] Memoria 19:22:00 04:59:00 Services r Outpatient 01 l [facility] 2020-04-12 2020-04-13 Outpt Diag nullFlavo [facility] [id number] Memoria 19:22:00 04:59:00 Services r Outpatient 01 l [facility] 2020-04-12 2020-04-12 Outpatient AARON CalixP OIP [id number] 14:22:00 23:59:00 Nedra 01 [facility] 2020-03-19 2020-03-22 Inpatient nullFlavo [facility] [id number] Memoria 09:07:00 20:45:[address] 2020-03-19 2020-03-22 Inpatient nullFlavo [facility] [id number] Memoria 09:07:00 20:45:[address] 2020-03-19 2020-03-22 Outpatient Valarie [facility] [id number] 04:07:00 15:45:00 Kelli 2020-03-19 2020-03-22 Inpatient U DHOBLE, [facility] CAR 0132 [facility] 04:07:00 15:45:00 KELLI 2020-03-19 2020-03-19 Emergency nullFlavo [facility] [id number] Memoria 05:18:53 08:25:00 r [place] l [facility] 2020-03-19 2020-03-19 Emergency nullFlavo [facility] [id number] Memoria 05:18:53 08:25:00 r [place] l [facility] 2020-03-19 2020-03-[id number] 00:18:53 03:25:00 , Deidre 2020-03-19 2020-03-19 Emergency E VISDESHAUNKARYLÁZAROA MHBL MHBL [id number] MHBL 00:18:00 03:25:00 , DEIDRE 2020-03-18 2020-03-18 Nurse nullFlavo ACCESS [id number] Memoria 00:00:00 00:00:00 Triage [facility] 2020-03-18 2020-03-18 Nurse Isabell Diaz 1.2.840.114 [id number] Univers 00:00:00 00:00:00 Triage [place] 350.1.13.10 [facility] 4.2.7.2.686 Reinaldo as [phone] [address] 2019-08-03 2019-08-04 Day nullFlavo [facility] [id number] Memoria 15:08:00 04:59:00 Surgery [facility] 00 [facility] 2019-08-03 2019-08-04 Day nullFlavo [facility] [id number] Memoria 15:08:00 04:59:00 Surgery r [place] 00 l [facility] 2019-08-03 2019-08-03 Outpatient Ricardo-Beka [facility] [id number] 10:08:00 23:59:00 wZander 2019-08-03 2019-08-03 Outpatient [facility] [id number] [facility] 10:08:00 10:08:00 2019-06-20 2019-06-21 Outpt Diag nullFlavo [facility] [id number] Memoria 19:02:00 04:59:00 Services r [facility] 00 l [facility] 2019-06-20 2019-06-21 Outpt Diag angelicaFlavo [facility] [id number] Memoria 19:02:00 04:59:00 Services r Outpatient 00 l Imaging [facility] 2019-06-20 2019-06-20 Outpatient Jeremy, MHOIP MHOIP [id number] 14:02:00 23:59:00 Chik-Albert 00 2019-05-22 2019-05-[address] [id number] Memoria 23:21:00 11:04:00 Inpatient [facility] [place] 2019-04-05 2019-04-[address] [id number] Memoria 21:20:00 13:53:00 Inpatient r [facility] [place] 2019-03-31 2019-03-[address] [id number] Memoria 18:35:00 23:11:00 Emergency r [facility] l [facility] [place] 2019-03-03 2019-03-[address] [id number] Memoria 17:02:00 17:02:00 Referred r [facility] 28 l Mac Marya Results Test Description Test Time Test Comments Results Result Comments Source RADRPT 2023-01-20 20:45:30 Test Item Value Reference Range Interpretation Comme nts RADRPT (test code = RADRPT) PROCEDURE INFORMATION: Exam: MR Head Wi thout and With Contrast Exam date and time: 01/19/2023 1:19 PM Age: 57 years old Clinical indication: Unspecified convulsions; Additional info: R56.9 unspecified convulsions/r56.9 unspecified convulsions TECHNIQUE: Imaging protocol: Magnetic resonance imaging of the head without and with contrast. Contrast material: CLARISCAN; Contrast volume: 14 ml; Contrast route: INTRAVENOUS (IV); COMPARISON: BRAIN WO CONTRAST MRI 08/20/2022 2:54 PM FINDINGS: Brain: There is no acute cortical infarct. There is a partial empty sella. There is no cerebellar tonsillar ectopia. 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 There is surrounding subcortical gliosis. There is a chronic infarct with subcortical gliosis left occipital pole and mesial aspect of the bilateral parietal lobes. Findings noted previously. Flow is demonstrated in the 4th segments of both vertebral arteries, the basilar artery and intracranial carotid arteries. The cochlear, vestibule and 7th and 8th nerve fascicles are normal.There is no enhancing intraparenchymal or leptomeningeal abnormality. There is normal enhancement the cavernous sinus, dural sinuses and deep venous system.The mesial temporal lobes are normal.Cerebral ventricles: Normal. No ventriculomegaly. Bones/joints: Unremarkable. Paranasal sinuses: There is minimal mucosal thickening in the right sphenoid sinus.. Mastoid air cells: Normal as visualized. No mastoid effusion. Orbital cavities: Unremarkable. Soft tissues: Unremarkable. IMPRESSION: Follow-up study shows no interval change. There is no acute cortical infarct, parenchymal hemorrhage or an enhancing intra-axial mass.Ottoniel Quintanilla MD On 01/20/2023 15:44:47; [id number] [id number] 21:51:51 Test Item Value Reference Range Interpretation Comments RADRPT (test code COMPLETE ULTRASOUND OF = RADRPT) RIGHT BREAST AND AXILLA: 01/07/2023LINICAL: /N63.0. COMPARISON:Comparison is made to exams dated: 01/07/2023 mammogram, 01/05/2018 ultrasound, 01/05/2018 mammogram - [facility] OutPatient Imaging - [place], 05/04/2013 mammogram, 05/04/2013 mammogram, and 05/04/2013 ultrasound - [facility] OutPatient Imaging - [facility]. TECHNIQUE: Color flow and real-time ultrasound of the right breast four quadrants, retroareolar, and axilla regions were performed. Alcocer scale images of the real-time examination were reviewed. FINDINGS: There is a benign intramammary node in the right breast. No significant abnormalities were seen sonographically in the right breast or the right axilla. IMPRESSION: BENIGN RECOMMENDATION:There is no sonographic evidence of malignancy. There is no abnormality seen in the right breast to correspond with the palpable abnormality at 1 o'clock, nor with the non-focal multiple lumps outer breast patient described at time of mammogram. There is also no abnormality seen in the right breast to correspond with the pain in the outer aspect. Further evaluation/management should be based on clinical concern. A 1 year screening mammogram is recommended. (01/08/2024) This exam was interpreted at [id number] [place] [address] Dr. Lali Ramírez M.D. wc/:01/07/2023 15:51:51 Turf Farmer(s): Jie Hardin [facility] OutPatient Imaging - [facility] sent: BI-RADS 1/2 Ultrasound BI[facility]RADS: 2 [id number] 21:48:23 Test Item Value Reference Range Interpretation Comments RADRPT (test code BILATERAL DIGITAL DIAGNOSTIC = RADRPT) MAMMOGRAM 3D/2D WITH CAD: 01/07/2023LINICAL: N63.0 Unspecified Lump In Unspecified Breast/N63.0 Unspecified Lump In Unspecified Breast. Current study was evaluated with a Computer Aided Detection (CAD) system. COMPARISON:Comparison is made to exams dated: 01/05/2018 mammogram - [facility] OutPatient Imaging - [place] and 05/04/2013 mammogram - [facility] OutPatient Imaging - [facility]. TECHNIQUE: Digital Breast Tomosynthesis was performed and utilized for Interpretation. Current study was also evaluated with a Computer Aided Detection (CAD) system. FINDINGS: There are scattered fibroglandular densities in both breasts. Patient complains of pain and swelling right breast upper outer quadrant, right lump upper central and multiple pea sized lumps lateral right breast. Patient is somewhat poor historian but it seems these have been present since episode requiring sternal rub.Patient positioning was also limited by lack of right shoulder mobility. There is a benign appearing lymph node in the right breast. There also are benign appearing calcifications in both breasts. Additionally, there are benign post operative findings and biopsy clips in the left breast. No significant masses, calcifications, or other findings are seen in either breast. There has been no significant interval change.IMPRESSION: INCOMPLETE: NEEDS ADDITIONAL IMAGING EVALUATIONRECOMMENDATION:The re is no abnormality seen in the right breast to correspond with the palpable abnormality indicated by a triangular marker in the upper outer quadrant, nor are there any abnormalities corresponding to patient's multiple other complaints, however, ultrasound is recommended. This exam was interpreted at [id number] [facility]. SUMMARY:Ultrasound will be performed at this time. Please see separate report. Dr. Lali Ramírez M.D. wc/:01/07/2023 15:48:23 Turf Farmer(s): Maria Esther Rea [facility] OutPatient Imaging - [place] BI-RADS: 0 Indeterminate [facility] TexasDddflpjUNUSUL4344-60-66 21:04:48 Test Item Value Reference Range Interpretation Comments RADRPT (test code PROCEDURE INFORMATION: = RADRPT) Exam: US Soft Tissue Head and Neck, Thyroid Exam date and time: 01/06/2023 9:51 AM Age: 57 years old Clinical indication: Hypothyroidism, unspecified; Additional info: /hypothyroidism TECHNIQUE: Imaging protocol: Real-time ultrasound scan of the neck with image documentation. Exam focused on the thyroid. COMPARISON: BRAIN/NECK CTA 09/28/2020 1:11 AM FINDINGS: Right thyroid lobe: 3.9 x 1.9 x 1.1 cm Left thyroid lobe: 4 x 1.4 x 1.2 cm Isthmus: 0.3 cm Heterogeneous appearance of thyroid gland is seen. Subcentimeter shadowing calcification is seen in the right midpole.Few hypoechoic solid TR 4 nodules are seen in the right lobe measuring up to 4 mm. 0.7 cm hypoechoic solid TR 4 nodule in the left isthmus. Few hypoechoic solid TR 4 nodules are seen in the left lobe with largest in the upper pole measuring 6 mm.TR4 - Moderately suspicious. If size greater than or equal to 1.5 cm, fine needle aspiration is recommended. If size is greater than equal to 1 cm, ultrasound followup (1, 2, 3 and 5 years) is recommended.Subcentimeter benign spongiform nodule in the left lower pole. Benign subcentimeter cyst in the left lower pole. Notes: Reference: Julia FN, Segun WD, Sandoval EG, Rufus JK, Ra LL, et al. ACR Thyroid Imaging, Reporting and Data System (TI-RADS): White Paper of the ACR TI-RADS Committee. (2017) Journal of the [place] [employer] : JACR. 14 (5): 587-595. IMPRESSION: Thyroid nodules with ACR TI-RADS Score and recommendations as discussed above. No FNA is indicated.Cha Dickens DO On 01/07/2023 15:03:28; [id number] [facility] HospitalYtafigwBNP-LB9908-38-31 13:09:00 Test Item Value Reference Range Interpretation Comments TSH-LC (test 1.230 See_Comment [Automated [employer]] code = The system [employer] 23451-0) generated this result transmitted ref erence range: 0.450 - 4.500 uIU/mL. The ref erence range was not u sed to interpret this result as normal/abnor mal. SHEILA (test code PERFORMED BY = SHEILA) [address] [id number] ; [id number]; ; MD Tere Yuen ? [facility]TPO[facility] [id number] 13:09:00 Test Item Value Reference Range Interpretation Comments Thyroid Peroxidase <9 See_Comment [Automat ed (TPO) Ab-LC (test message] T system code = 8099-4) which generat ed this result transmitted reference range : 0 - 34 IU/mL. The reference range was not used to interpret this result as normal/abnormal . SHEILA (test code = PERFORMED BY SHEILA) [address] [id number] ; [phone]; ; MD Tere Yuen ? [facility]-YE1167-04-95 13:09:00 Test Item Value Reference Range Interpretation Comments TSH-LC (test 1.230 See_Comment [Automated [employer]] code = The system [employer] 99481-3) generated this result transmitted ref erence range: 0.450 - 4.500 uIU/mL. The ref erence range was not u sed to interpret this result as normal/abnor mal. SHEILA (test code PERFORMED BY = SHEILA) [address] [id number] ; [phone]; ; MD Tere Yuen ? [facility] (TPO) [id number] 13:09:00 Test Item Value Reference Range Interpretation Comments Thyroid Peroxidase <9 See_Comment [Automat ed (TPO) Ab-LC (test message] T system code = 8099-4) which generat ed this result transmitted reference range : 0 - 34 IU/mL. The reference range was not used to interpret this result as normal/abnormal . SHEILA (test code = PERFORMED BY SHEILA) [facility] Hfwfite7037 [facility] ?[facility] [id number] ; [id number]; ; MD Tere Johnson [facility]anoCHEMISTRY2022-10-13 17:04:00 Test Item Value Reference Range Interpretation Comments Glucose Lvl (test code = Glucose Lvl) 95 70-99 [facility] HospitalCfbojyfCMSXKVUTT7402-06-29 17:04:00 Test Item Value Reference Range Interpretation Comments BUN (test code = BUN) 18 7-22 [facility] HospitalXxdvpvgIJLWUCEHQ0299-13-95 17:04:00 Test Item Value Reference Range Interpretation Comments Creatinine Lvl (test code = Creatinine 1.12 0.50-1.40 Lvl) [facility] HospitalJtdvtdsNWXVRSZWB4228-17-46 17:04:00 Test Item Value Reference Range Interpretation Comments Sodium Lvl (test code = Sodium Lvl) 141 135-145 [facility] HospitalMipflswXQQLCMCEP4038-82-74 17:04:00 Test Item Value Reference Range Interpretation Comments Potassium Lvl (test code = Potassium 4.2 3.5-5.1 Lvl) [facility] HospitalObxgttoGKBGMUJUQ1072-76-06 17:04:00 Test Item Value Reference Range Interpretation Comments Chloride Lvl (test code = Chloride Lvl) 114 95-109 [facility] HospitalAjsifjhLRQXINBVZ6820-00-63 17:04:00 Test Item Value Reference Range Interpretation Comments CO2 (test code = CO2) 24 24-32 [facility] HospitalVbtpcyjRDCEPFRTM5826-67-46 17:04:00 Test Item Value Reference Range Interpretation Comments Calcium Lvl (test code = Calcium Lvl) 8.9 8.5-10.5 [facility] HospitalFdvktcvMMQILVKKQ1609-35-95 17:04:00 Test Item Value Reference Range Interpretation Comments AGAP (test code = AGAP) 7.2 10.0-20.0 [facility] HospitalLeklleaOPDJQHNKH9840-33-58 17:04:00 Test Item Value Reference Range Interpretation Comments eGFR (test code = eGFR) 57 [facility] CampusCsdrhfoNOWJUWGPDQ8064-27-61 17:04:00 Test Item Value Reference Range Interpretation Comments WBC (test code = WBC) 7.1 3.7-10.4 [facility] HospitalJvrmswxKRBCQWFPU4399-52-27 17:04:00 Test Item Value Reference Range Interpretation Comments Glucose Lvl (test code = Glucose Lvl) 95 70-99 [facility] HospitalBliherkMRDQKMEHQ8617-20-34 17:04:00 Test Item Value Reference Range Interpretation Comments BUN (test code = BUN) 18 7-22 [facility] HospitalPacnaheEWBODBYHM6940-52-22 17:04:00 Test Item Value Reference Range Interpretation Comments Creatinine Lvl (test code = Creatinine 1.12 0.50-1.40 Lvl) [facility] HospitalNgcsjdiJNGRZRSMX3036-22-78 17:04:00 Test Item Value Reference Range Interpretation Comments Sodium Lvl (test code = Sodium Lvl) 141 135-145 [facility] CampusAegorblZELOKZYRCE9875-65-77 17:04:00 Test Item Value Reference Range Interpretation Comments RBC (test code = RBC) 3.66 4.20-5.40 [facility] HospitalCmyfixgLJLNKGKYZ4628-91-79 17:04:00 Test Item Value Reference Range Interpretation Comments Potassium Lvl (test code = Potassium 4.2 3.5-5.1 Lvl) [facility] HospitalAxvpohnXLFGLAMDA2498-53-93 17:04:00 Test Item Value Reference Range Interpretation Comments Chloride Lvl (test code = Chloride Lvl) 114 95-109 [facility] HospitalQwiyrabKBYMXKXGV5299-42-63 17:04:00 Test Item Value Reference Range Interpretation Comments CO2 (test code = CO2) 24 24-32 [facility] HospitalKezytvsJVDZQXAWV4271-12-19 17:04:00 Test Item Value Reference Range Interpretation Comments Calcium Lvl (test code = Calcium Lvl) 8.9 8.5-10.5 [facility] HospitalVrglqwbCEICGCOGB8823-87-52 17:04:00 Test Item Value Reference Range Interpretation Comments AGAP (test code = AGAP) 7.2 10.0-20.0 [facility] HospitalAfyriliMGRCJWTFT6583-51-31 17:04:00 Test Item Value Reference Range Interpretation Comments eGFR (test code = eGFR) 57 [facility] CampusEppmyskPWIKITZRLV1458-71-12 17:04:00 Test Item Value Reference Range Interpretation Comments WBC (test code = WBC) 7.1 3.7-10.4 [place] [address]-10-13 17:04:00 Test Item Value Reference Range Interpretation Comments RBC (test code = RBC) 3.66 4.20-5.40 [facility] CampusQocwcppCFFSFJUJTY7232-27-63 17:04:00 Test Item Value Reference Range Interpretation Comments Hgb (test code = Hgb) 11.7 12.0-16.0 [place] 324032-10-13 17:04:00 Test Item Value Reference Range Interpretation Comments Hct (test code = Hct) 34.6 36.0-48.0 [place] 324032-10-13 17:04:00 Test Item Value Reference Range Interpretation Comments MCV (test code = MCV) 94.5 80.0-98.0 [facility] CampusGgaronmBBRXJFZVCF1725-60-79 17:04:00 Test Item Value Reference Range Interpretation Comments MCH (test code = MCH) 32.0 pg 27.0-31.0 [facility] CampusAimdkbyEBDUSKJIGX1293-38-94 17:04:00 Test Item Value Reference Range Interpretation Comments MCHC (test code = MCHC) 33.9 32.0-36.0 [place] 324032-10-13 17:04:00 Test Item Value Reference Range Interpretation Comments RDW (test code = RDW) 13.8 11.5-14.5 [facility] CampusGdnjjvpYQLYOJYLFU2085-21-46 17:04:00 Test Item Value Reference Range Interpretation Comments Platelet (test code = Platelet) 203 133-450 [facility] CampusWnsuueeGPJTXFXRQT5205-13-01 17:04:00 Test Item Value Reference Range Interpretation Comments MPV (test code = MPV) 7.4 7.4-10.4 [place] 324032-10-13 17:04:00 Test Item Value Reference Range Interpretation Comments Segs (test code = Segs) 77.8 45.0-75.0 [facility] CampusFmrrxgfDTCRGOIIAW1689-60-74 17:04:00 Test Item Value Reference Range Interpretation Comments Lymphocytes (test code = Lymphocytes) 13.0 20.0-40.0 [place] 324032-10-13 17:04:00 Test Item Value Reference Range Interpretation Comments Monocytes (test code = Monocytes) 6.3 2.0-12.0 [place] [address]-10-13 17:04:00 Test Item Value Reference Range Interpretation Comments Eosinophils (test code = 2.4 See_Comment [A utomated message] The Eosinophils) system which ge nerated this result tra nsmitted reference range : <=4.0. The reference r kendell was not used to int erpret this result as normal/abnormal . [facility] CampusFvbhoheCORGZKDZTH2460-89-32 17:04:00 Test Item Value Reference Range Interpretation Comments Basophils (test code = 0.5 See_Comment [Aut omated message] The Basophils) system which ge nerated this result tra nsmitted reference range : <=1.0. The reference r kendell was not used to int erpret this result as normal/abnormal . [facility] CampusGfukubbSBUEPQUNGH7714-03-28 17:04:00 Test Item Value Reference Range Interpretation Comments Neutrophils # (test code = Neutrophils 5.5 1.5-8.1 #) [facility] CampusTjcksinVGIXPUFNLJ7083-72-46 17:04:00 Test Item Value Reference Range Interpretation Comments Lymphocytes # (test code = Lymphocytes 0.9 1.0-5.5 #) [facility] CampusZtmtgriOEVEEUTKZM5391-47-50 17:04:00 Test Item Value Reference Range Interpretation Comments Monocytes # (test code 0.4 See_Comment [Aut omated message] The = Monocytes #) system which generated this result tra nsmitted reference range : <=0.8. The reference r kendell was not used to int erpret this result as normal/abnormal . [facility] CampusElmrxbfMXHOGAIMMJ0923-69-30 17:04:00 Test Item Value Reference Range Interpretation Comments Eosinophils # (test code 0.2 See_Comment [A utomated message] The = Eosinophils #) system whic h generated this result tra nsmitted reference range : <=0.5. The reference r kendell was not used to int erpret this result as normal/abnormal . [facility] CampusCqwfeuwSZJZWYMAAE5176-33-87 17:04:00 Test Item Value Reference Range Interpretation Comments Hgb (test code = Hgb) 11.7 12.0-16.0 [facility] CampusTcjufuxEHOYJGONLX5598-40-92 17:04:00 Test Item Value Reference Range Interpretation Comments Hct (test code = Hct) 34.6 36.0-48.0 [facility] CampusFjophjsITAMIVZJJF4918-60-54 17:04:00 Test Item Value Reference Range Interpretation Comments MCV (test code = MCV) 94.5 80.0-98.0 [facility] CampusXmgesguZPBMKNREGP5343-15-49 17:04:00 Test Item Value Reference Range Interpretation Comments MCH (test code = MCH) 32.0 pg 27.0-31.0 [place] [address]-10-13 17:04:00 Test Item Value Reference Range Interpretation Comments MCHC (test code = MCHC) 33.9 32.0-36.0 [place] 324032-10-13 17:04:00 Test Item Value Reference Range Interpretation Comments RDW (test code = RDW) 13.8 11.5-14.5 [place] 324032-10-13 17:04:00 Test Item Value Reference Range Interpretation Comments Platelet (test code = Platelet) 203 133-450 [facility] CampusZsqvztdOKZFYVDZFZ9926-29-51 17:04:00 Test Item Value Reference Range Interpretation Comments MPV (test code = MPV) 7.4 7.4-10.4 [place] [address]-10-13 17:04:00 Test Item Value Reference Range Interpretation Comments Segs (test code = Segs) 77.8 45.0-75.0 [place] 324032-10-13 17:04:00 Test Item Value Reference Range Interpretation Comments Lymphocytes (test code = Lymphocytes) 13.0 20.0-40.0 [place] 324032-10-13 17:04:00 Test Item Value Reference Range Interpretation Comments Monocytes (test code = Monocytes) 6.3 2.0-12.0 [place] 324032-10-13 17:04:00 Test Item Value Reference Range Interpretation Comments Eosinophils (test code = 2.4 See_Comment [A utomated message] The Eosinophils) system which ge nerated this result tra nsmitted reference range : <=4.0. The reference r kendell was not used to int erpret this result as normal/abnormal . [facility] CampusAuoghtqDYYVLGDYSL2451-10-43 17:04:00 Test Item Value Reference Range Interpretation Comments Basophils (test code = 0.5 See_Comment [Aut omated message] The Basophils) system which ge nerated this result tra nsmitted reference range : <=1.0. The reference r kendell was not used to int erpret this result as normal/abnormal . [place] [address]-10-13 17:04:00 Test Item Value Reference Range Interpretation Comments Neutrophils # (test code = Neutrophils 5.5 1.5-8.1 #) [facility] CampusVkznkuoHZIQQUGCBX3136-14-61 17:04:00 Test Item Value Reference Range Interpretation Comments Lymphocytes # (test code = Lymphocytes 0.9 1.0-5.5 #) [facility] CampusJwnjupyXDWHFQLZSX7966-42-16 17:04:00 Test Item Value Reference Range Interpretation Comments Monocytes # (test code 0.4 See_Comment [Aut omated message] The = Monocytes #) system which generated this result tra nsmitted reference range : <=0.8. The reference r kendell was not used to int erpret this result as normal/abnormal . [facility] CampusEsogenzLGFKFWOBJB0134-38-64 17:04:00 Test Item Value Reference Range Interpretation Comments Eosinophils # (test code 0.2 See_Comment [A utomated message] The = Eosinophils #) system whic h generated this result tra nsmitted reference range : <=0.5. The reference r kendell was not used to int erpret this result as normal/abnormal . [facility]QkckzleQPLHUR0431-37-32 20:43:08 Test Item Value Reference Range Interpretation [...] warranted. Cecelia Wolf MD On 08/20/2022 15:42:19; [id number] [facility]cosCekbyylUFEFKU2630-88-20 20:43:08 Test Item Value Reference Range Interpretation [...] warranted. Cecelia Wolf MD On 08/20/2022 15:42:19; [id number] [facility] HospitalJckiqdlROIWOWUCH9232-92-03 09:55:00 Test Item Value Reference Range Interpretation Comments HS Troponin I 1 Hr (test code = HS 6 Troponin I 1 Hr) [facility] HospitalRpajqanQGFJEHWBV9971-27-07 09:55:00 Test Item Value Reference Range Interpretation Comments HS Troponin I 0 to 1 See Note 3(08/20/22 Hour Delta (test code = 4:55 AM) HS Troponin I 0 to 1 Hour Delta) [address]10-12 09:55:00 Test Item Value Reference Range Interpretation Comments B/C Ratio (test code = B/C Ratio) 21 1 6-[address]10-12 09:55:00 Test Item Value Reference Range Interpretation Comments Total Protein (test code = Total 6.3 6.4-8.4 Protein) [place] [address]-10-12 09:55:00 Test Item Value Reference Range Interpretation Comments Albumin Lvl (test code = Albumin Lvl) 3.0 3.5-5.0 [place] [address]-10-12 09:55:00 Test Item Value Reference Range Interpretation Comments Globulin (test code = Globulin) 3.3 2.7-4.2 [place] [address]-10-12 09:55:00 Test Item Value Reference Range Interpretation Comments A/G Ratio (test code = A/G Ratio) 0.9 1 0.7-1.[address]10-12 09:55:00 Test Item Value Reference Range Interpretation Comments ALT (test code = ALT) 31 See_Comment [Auto mated message] The system which ge nerated this result transmit theodore reference range : <=65. The reference range was not used to interpr et this result as david l/abnormal. [place] [address]-10-12 09:55:00 Test Item Value Reference Range Interpretation Comments AST (test code = AST) 21 See_Comment [Auto mated message] The system which ge nerated this result transmit theodore reference range : <=37. The reference range was not used to interpr et this result as david l/abnormal. [place] [address]-10-12 09:55:00 Test Item Value Reference Range Interpretation Comments Alk Phos (test code = Alk Phos) 76 39-136 [place] [address]-10-12 09:55:00 Test Item Value Reference Range Interpretation Comments Bili Total (test code = Bili Total) 0.5 0.2-1.3 [place] [address]-10-12 09:55:00 Test Item Value Reference Range Interpretation Comments Ammonia (test code = Ammonia) 20.0 [place] [address]-10-12 09:55:00 Test Item Value Reference Range Interpretation Comments HIV Ag/Ab 4th Gen Negative *NA*(08/20/22 (test code = HIV 4:55 AM) Ag/Ab 4th Gen) [place] [address]-10-12 09:55:00 Test Item Value Reference Range Interpretation Comments HS Troponin I 1 Hr (test code = HS 6 Troponin I 1 Hr) [place] [address]-10-12 09:55:00 Test Item Value Reference Range Interpretation Comments HS Troponin I 0 to 1 See Note 3(08/20/22 Hour Delta (test code = 4:55 AM) HS Troponin I 0 to 1 Hour Delta) [place] [address]-10-12 09:55:00 Test Item Value Reference Range Interpretation Comments B/C Ratio (test code = B/C Ratio) 21 1 6-25 [place] [address]-10-12 09:55:00 Test Item Value Reference Range Interpretation Comments Total Protein (test code = Total 6.3 6.4-8.4 Protein) [place] [address]-10-12 09:55:00 Test Item Value Reference Range Interpretation Comments Albumin Lvl (test code = Albumin Lvl) 3.0 3.5-5.0 [place] [address]-10-12 09:55:00 Test Item Value Reference Range Interpretation Comments Globulin (test code = Globulin) 3.3 2.7-4.2 [place] [address]-10-12 09:55:00 Test Item Value Reference Range Interpretation Comments A/G Ratio (test code = A/G Ratio) 0.9 1 0.7-1.6 [place] [address]-10-12 09:55:00 Test Item Value Reference Range Interpretation Comments ALT (test code = ALT) 31 See_Comment [Auto mated message] The system which ge nerated this result transmit theodore reference range : <=65. The reference range was not used to interpr et this result as david l/abnormal. [place] [address]-10-12 09:55:00 Test Item Value Reference Range Interpretation Comments AST (test code = AST) 21 See_Comment [Auto mated message] The system which ge nerated this result transmit theodore reference range : <=37. The reference range was not used to interpr et this result as david l/abnormal. [facility] HospitalEkzfjhqMOTEBSFBO3377-42-15 09:55:00 Test Item Value Reference Range Interpretation Comments Alk Phos (test code = Alk Phos) 76 39-136 [facility] HospitalDrjcczkMRLEIJOWS3024-94-54 09:55:00 Test Item Value Reference Range Interpretation Comments Bili Total (test code = Bili Total) 0.5 0.2-1.3 [facility] TexasJmapbkwDBGILGIAF1376-83-22 09:55:00 Test Item Value Reference Range Interpretation Comments Ammonia (test code = Ammonia) 20.0 [facility] TexasJftchvjWGRNKXBCFJ1168-08-74 09:55:00 Test Item Value Reference Range Interpretation Comments HIV Ag/Ab 4th Gen Negative *NA*(08/20/22 (test code = HIV 4:55 AM) Ag/Ab 4th Gen) [place] 95167022-10-11 21:24:31 Test Item Value Reference Range Interpretation [...] abnormality. Wanda Lopez MD On 08/19/2022 16:23:37; [id number] [facility] HospitalGuqeujbRQVCCP8786-00-70 21:24:31 Test Item Value Reference Range Interpretation [...] abnormality. Wanda Lopez MD On 08/19/2022 16:23:37; [id number] [facility] TexasNplphekCSZFPT3908-18-78 20:44:29 Test Item Value Reference Range Interpretation [...] recommended. Cecelia Wolf MD On 08/19/2022 15:43:33; [id number] [facility] TexasMgymyfmTAFVSV4854-73-65 20:44:29 Test Item Value Reference Range Interpretation [...] recommended. Cecelia Wolf MD On 08/19/2022 15:43:33; [id number] [facility] HospitalCmnxssxZGPURCYMK5741-21-62 19:54:00 Test Item Value Reference Range Interpretation Comments Procalcitonin Lvl <0.05 ng/mL See_Comment [Automate d message] (test code = The system whic h Procalcitonin Lvl) generated this result transmit theodore reference range : <=0.10. The reference range was not used to interpret this result as normal/abnormal . [facility] HospitalYpnpsrxHFTAURYKC7194-24-94 19:54:00 Test Item Value Reference Range Interpretation Comments Lactic Acid Lvl (test code = Lactic 0.6 0.5-2.2 Acid Lvl) [facility] HospitalFvwrnbiFRPZTUGIZ7653-98-23 19:54:00 Test Item Value Reference Range Interpretation Comments Total CK (test code = Total CK) 257 12-191 [facility] HospitalJxytibdLDSBUTBVR8350-07-46 19:54:00 Test Item Value Reference Range Interpretation Comments pH Art (test code = pH Art) 7.36 1 7.35-7.45 [facility] HospitalQxklpwbEXVWQLNKC3134-23-72 19:54:00 Test Item Value Reference Range Interpretation Comments pCO2 Art (test code = pCO2 Art) 46 35-45 [facility] AmericaEzbzjhbYBIMXWLRX9026-27-81 19:54:00 Test Item Value Reference Range Interpretation Comments pO2 Art (test code = pO2 Art) 60 80-100 [facility] AmericaSlwxbiiYKSEOFDMV7913-75-47 19:54:00 Test Item Value Reference Range Interpretation Comments HCO3 Art (test code = HCO3 Art) 26 22-26 [facility] HospitalUgkjdycRCAASKHJX6488-48-72 19:54:00 Test Item Value Reference Range Interpretation Comments BE Art (test code = BE Art) 0 -2-2 [facility] HospitalFwsritxZEDNLFRXB7246-31-61 19:54:00 Test Item Value Reference Range Interpretation Comments O2 Sat Art (calc) (test code = O2 Sat 89.0 95.0-100.0 Art (calc)) [facility] HospitalBfkfgfcBUZGIBWEM1567-65-65 19:54:00 Test Item Value Reference Range Interpretation Comments Site Art (test code = Art Cord (08/19/22 2:54 Site Art) PM) [facility] HospitalOitddpdGGOMWGBNS8723-98-11 19:54:00 Test Item Value Reference Range Interpretation Comments Temp Art (test code = Temp Art) 37.0 [facility] AmericaSxrkeatJGEETBCYZ0137-87-47 19:54:00 Test Item Value Reference Range Interpretation Comments TSH (test code = TSH) 0.764 0.360-3.740 [facility] HospitalZiwoedrQRMKYMLOR5070-11-77 19:54:00 Test Item Value Reference Range Interpretation Comments Ethanol Lvl (test code = Ethanol Lvl) 3 [facility] HospitalSxbegpiNGOHMYFVX1654-00-63 19:54:00 Test Item Value Reference Range Interpretation Comments Etoh (%) (test code = Etoh (%)) 0.003 [facility] HospitalJduemwwDNZKZXTTZ4739-95-58 19:54:00 Test Item Value Reference Range Interpretation Comments U Amph Scr (test code Negative *NA*(08/19/22 = U Amph Scr) 2:54 PM) [facility] Hospi[id number] 19:54:00 Test Item Value Reference Range Interpretation Comments U Parisa Scr (test code Negative *NA*(08/19/22 = U Parisa Scr) 2:54 PM) [facility] HospitalWmtjlgkUEFVWVJLZ3909-72-18 19:54:00 Test Item Value Reference Range Interpretation Comments U Benzodiaz Scr (test Negative *NA*(08/19/22 code = U Benzodiaz Scr) 2:54 PM) [facility] HospitalUixvgdfUSTSVAGGY7814-75-82 19:54:00 Test Item Value Reference Range Interpretation Comments U Cocaine Scr (test Negative *NA*(08/19/22 code = U Cocaine Scr) 2:54 PM) [facility] HospitalOvocwygYUACOPGJX0824-29-50 19:54:00 Test Item Value Reference Range Interpretation Comments U Cannab Scr (test Negative *NA*(08/19/22 code = U Cannab Scr) 2:54 PM) [facility] HospitalSsczomzVPSPCIHDZ8414-33-83 19:54:00 Test Item Value Reference Range Interpretation Comments U Opiate Scr (test Positive *ABN*(08/19/22 code = U Opiate Scr) 2:54 PM) [facility] HospitalLlxgtfpZNFOHKRWD1955-25-40 19:54:00 Test Item Value Reference Range Interpretation Comments U Phencyclidine Scr (test Negative code = U Phencyclidine *NA*(08/19/22 2:54 Scr) PM) [facility] HospitalVbiqfunCQPEGFKYO4328-48-47 19:54:00 Test Item Value Reference Range Interpretation Comments UDS Note (test code = See Note (08/19/22 2:54 UDS Note) PM) [facility] HospitalWynyyzgMQSPGTLCO0562-86-69 19:54:00 Test Item Value Reference Range Interpretation Comments Acetaminoph Lvl (test code = no gt 08-28 Acetaminoph Lvl) [facility] HospitalXjtikydRZSFQMSOB5573-62-73 19:54:00 Test Item Value Reference Range Interpretation Comments Salicylate Lvl (test 2.3 See_Comment [Autom ated message] The code = Salicylate Lvl) syste m which generated this result tra nsmitted reference range : <=30.0. The reference r kendell was not used to int erpret this result as normal/abnormal . [facility] HospitalAkkspncBXEPWXESR7670-83-01 19:54:00 Test Item Value Reference Range Interpretation Comments HS Troponin I Baseline (test code = HS 4 Troponin I Baseline) [facility]GznskgvMMFWFVICIH8314-94-43 19:54:00 Test Item Value Reference Range Interpretation Comments PT (test code = PT) 13.0 s 12.0-14.7 [facility] CampusSllywjqTUQQUZCFKX8920-54-58 19:54:00 Test Item Value Reference Range Interpretation Comments INR (test code = INR) 0.99 1 0.85-1.17 [facility] CampusGzkdhgxRENQVWWWSU2514-50-91 19:54:00 Test Item Value Reference Range Interpretation Comments PTT (test code = PTT) 33.5 s 22.9-35.8 [facility] CampusRsjmtmaDBVAFNSRYC8208-94-39 19:54:00 Test Item Value Reference Range Interpretation Comments Basophils # (test code 0.1 See_Comment [Aut omated message] The = Basophils #) system which generated this result tra nsmitted reference range : <=0.2. The reference r kendell was not used to int erpret this result as normal/abnormal . [facility] AND [id number] 19:54:00 Test Item Value Reference Range Interpretation Comments UA Color (test code = Yellow *NA*(08/19/22 UA Color) 2:54 PM) [facility] AND [id number] 19:54:00 Test Item Value Reference Range Interpretation Comments UA Turbidity (test code = Clear (08/19/22 2:54 UA Turbidity) PM) [facility] AND [id number] 19:54:00 Test Item Value Reference Range Interpretation Comments UA Spec Grav (test code = UA Spec 1.010 1 Grav) [facility] AND [id number] 19:54:00 Test Item Value Reference Range Interpretation Comments UA pH (test code = UA pH) 7.0 1 5.0-8.0 [facility] AND [id number] 19:54:00 Test Item Value Reference Range Interpretation Comments UA Protein (test code Negative (08/19/22 2:54 = UA Protein) PM) [facility] AND [id number] 19:54:00 Test Item Value Reference Range Interpretation Comments UA Glucose (test code Negative (08/19/22 2:54 = UA Glucose) PM) [facility] AND [id number] 19:54:00 Test Item Value Reference Range Interpretation Comments UA Ketones (test code Negative *NA*(08/19/22 = UA Ketones) 2:54 PM) [facility] [id number] 19:54:00 Test Item Value Reference Range Interpretation Comments UA Bili (test code = Negative *NA*(08/19/22 UA Bili) 2:54 PM) [facility] [id number] 19:54:00 Test Item Value Reference Range Interpretation Comments UA Blood (test code = Negative (08/19/22 2:54 UA Blood) PM) [facility] [id number] 19:54:00 Test Item Value Reference Range Interpretation Comments UA Urobilinogen (test code = UA 0.2 0.1-1.0 Urobilinogen) [facility] [id number] 19:54:00 Test Item Value Reference Range Interpretation Comments UA Nitrite (test code Negative (08/19/22 2:54 = UA Nitrite) PM) [facility] [id number] 19:54:00 Test Item Value Reference Range Interpretation Comments UA Leuk Est (test code Small *ABN*(08/19/22 = UA Leuk Est) 2:54 PM) [facility] [id number] 19:54:00 Test Item Value Reference Range Interpretation Comments UA Sq Epi (test code = UA Sq Epi) Rare /LPF [facility] [id number] 19:54:00 Test Item Value Reference Range Interpretation Comments UA WBC (test code = UA WBC) 0-2 /HPF [facility] [id number] 19:54:00 Test Item Value Reference Range Interpretation Comments UA RBC (test None Seen See_Comment [Automated mes dayanna] code = UA RBC) (08/19/22 2:54 The system which PM) generated this result transmitted ref erence range: <=2. The reference range was not used to int erpret this result as normal/abnormal . [facility] [id number] 19:54:00 Test Item Value Reference Range Interpretation Comments UA Bacteria (test code = UA Occasional /HPF Bacteria) [facility] [id number] 19:54:00 Test Item Value Reference Range Interpretation Comments UA Renal Epi (test code = UA Renal 0-2 /LPF Epi) [facility]: [id number] 19:54:00 Test Item Value Reference Range Interpretation Comments Culture: Blood (test code No Growth At 4 Days = Culture: Blood) [facility] TexasRznxzeaTFOMYNEET1246-80-77 19:54:00 Test Item Value Reference Range Interpretation Comments Procalcitonin Lvl <0.05 ng/mL See_Comment [Automate d message] (test code = The system whic h Procalcitonin Lvl) generated this result transmit theodore reference range : <=0.10. The reference range was not used to interpret this result as normal/abnormal . [facility] HospitalXkndfhfSLOHWPUSF5777-94-22 19:54:00 Test Item Value Reference Range Interpretation Comments Lactic Acid Lvl (test code = Lactic 0.6 0.5-2.2 Acid Lvl) [facility] HospitalVonycyqMJMORAXHP8524-41-17 19:54:00 Test Item Value Reference Range Interpretation Comments Total CK (test code = Total CK) 257 12-191 [facility] HospitalBrwapfsYCGWYODJM6809-52-25 19:54:00 Test Item Value Reference Range Interpretation Comments pH Art (test code = pH Art) 7.36 1 7.35-7.45 [facility] TexasHzismyxMCJVEDIRC6388-20-07 19:54:00 Test Item Value Reference Range Interpretation Comments pCO2 Art (test code = pCO2 Art) 46 35-45 [facility] AmericaJitlwzzJZJGZTOZH1657-34-90 19:54:00 Test Item Value Reference Range Interpretation Comments pO2 Art (test code = pO2 Art) 60 80-100 [facility] TexasAiwtyekEPSQOQLXI3535-48-98 19:54:00 Test Item Value Reference Range Interpretation Comments HCO3 Art (test code = HCO3 Art) 26 22-26 [facility] TexasBduraggBTTIRBEFS4265-54-67 19:54:00 Test Item Value Reference Range Interpretation Comments BE Art (test code = BE Art) 0 -2-2 [facility] TexasYggsoltWCVQEEHFE4399-08-75 19:54:00 Test Item Value Reference Range Interpretation Comments O2 Sat Art (calc) (test code = O2 Sat 89.0 95.0-100.0 Art (calc)) [facility] HospitalGxsisxbMKKRVUVNX7577-63-51 19:54:00 Test Item Value Reference Range Interpretation Comments Site Art (test code = Art Cord (08/19/22 2:54 Site Art) PM) [facility] HospitalOmshblyLUDBDBHSN6298-55-00 19:54:00 Test Item Value Reference Range Interpretation Comments Temp Art (test code = Temp Art) 37.0 [facility] HospitalCwmtmckJPXOIIKRM7845-53-54 19:54:00 Test Item Value Reference Range Interpretation Comments TSH (test code = TSH) 0.764 0.360-3.740 [facility] HospitalMcvmzslSJVYHAYCL7925-23-35 19:54:00 Test Item Value Reference Range Interpretation Comments Ethanol Lvl (test code = Ethanol Lvl) 3 [facility] HospitalUtgtefxJUIMXFYIS6866-86-87 19:54:00 Test Item Value Reference Range Interpretation Comments Etoh (%) (test code = Etoh (%)) 0.003 [facility] HospitalJtnxvlpVJGIXMYCS1438-40-12 19:54:00 Test Item Value Reference Range Interpretation Comments U Amph Scr (test code Negative *NA*(08/19/22 = U Amph Scr) 2:54 PM) [facility] HospitalBsiefmbDUMPBPEEM7175-50-34 19:54:00 Test Item Value Reference Range Interpretation Comments U Parisa Scr (test code Negative *NA*(08/19/22 = U Parisa Scr) 2:54 PM) [facility] HospitalPlcxudmVOPAUIAYV6846-80-14 19:54:00 Test Item Value Reference Range Interpretation Comments U Benzodiaz Scr (test Negative *NA*(08/19/22 code = U Benzodiaz Scr) 2:54 PM) [facility] HospitalMfavxleTFGMVKQBK6657-24-96 19:54:00 Test Item Value Reference Range Interpretation Comments U Cocaine Scr (test Negative *NA*(08/19/22 code = U Cocaine Scr) 2:54 PM) [facility] HospitalDvystnpETJJNSMLL6100-53-03 19:54:00 Test Item Value Reference Range Interpretation Comments U Cannab Scr (test Negative *NA*(08/19/22 code = U Cannab Scr) 2:54 PM) [facility] HospitalGmhifznCAMMUZOUC0201-19-84 19:54:00 Test Item Value Reference Range Interpretation Comments U Opiate Scr (test Positive *ABN*(08/19/22 code = U Opiate Scr) 2:54 PM) [facility] HospitalKgztrssKBWQKZHAH5278-40-03 19:54:00 Test Item Value Reference Range Interpretation Comments U Phencyclidine Scr (test Negative code = U Phencyclidine *NA*(08/19/22 2:54 Scr) PM) [facility] HospitalAofzqlwPGYYXUPHD5467-25-19 19:54:00 Test Item Value Reference Range Interpretation Comments UDS Note (test code = See Note (08/19/22 2:54 UDS Note) PM) [facility] HospitalJtavwphBOBDHAXAX5718-59-02 19:54:00 Test Item Value Reference Range Interpretation Comments Acetaminoph Lvl (test code = no gt 08-28 Acetaminoph Lvl) [facility] HospitalQqulgkvOEOGBIYTH9801-76-52 19:54:00 Test Item Value Reference Range Interpretation Comments Salicylate Lvl (test 2.3 See_Comment [Autom ated message] The code = Salicylate Lvl) syste m which generated this result tra nsmitted reference range : <=30.0. The reference r kendell was not used to int erpret this result as normal/abnormal . [facility] HospitalNlawegrXOOKCCZQS8988-89-33 19:54:00 Test Item Value Reference Range Interpretation Comments HS Troponin I Baseline (test code = HS 4 Troponin I Baseline) [facility] CampusIkxdkmcFEIARMQPAD3440-95-35 19:54:00 Test Item Value Reference Range Interpretation Comments PT (test code = PT) 13.0 s 12.0-14.7 [facility] CampusCytrawsKKNYEFLUED2736-14-73 19:54:00 Test Item Value Reference Range Interpretation Comments INR (test code = INR) 0.99 1 0.85-1.17 [facility] CampusQuxvwcyRCLIWWHPSO4664-92-90 19:54:00 Test Item Value Reference Range Interpretation Comments PTT (test code = PTT) 33.5 s 22.9-35.8 [facility] CampusNqwyabuEELQIVEPZO3946-19-14 19:54:00 Test Item Value Reference Range Interpretation Comments Basophils # (test code 0.1 See_Comment [Aut omated message] The = Basophils #) system which generated this result tra nsmitted reference range : <=0.2. The reference r kendell was not used to int erpret this result as normal/abnormal . [facility] [id number] 19:54:00 Test Item Value Reference Range Interpretation Comments UA Color (test code = Yellow *NA*(08/19/22 UA Color) 2:54 PM) [facility]2022-[facility]-11 19:54:00 Test Item Value Reference Range Interpretation Comments UA Turbidity (test code = Clear (08/19/22 2:54 UA Turbidity) PM) [facility] [id number] 19:54:00 Test Item Value Reference Range Interpretation Comments UA Spec Grav (test code = UA Spec 1.010 1 Grav) [facility] [id number] 19:54:00 Test Item Value Reference Range Interpretation Comments UA pH (test code = UA pH) 7.0 1 5.0-8.0 [facility] [id number] 19:54:00 Test Item Value Reference Range Interpretation Comments UA Protein (test code Negative (08/19/22 2:54 = UA Protein) PM) [facility] [id number] 19:54:00 Test Item Value Reference Range Interpretation Comments UA Glucose (test code Negative (08/19/22 2:54 = UA Glucose) PM) [facility] [id number] 19:54:00 Test Item Value Reference Range Interpretation Comments UA Ketones (test code Negative *NA*(08/19/22 = UA Ketones) 2:54 PM) [facility] [id number] 19:54:00 Test Item Value Reference Range Interpretation Comments UA Bili (test code = Negative *NA*(08/19/22 UA Bili) 2:54 PM) [facility] AND [id number] 19:54:00 Test Item Value Reference Range Interpretation Comments UA Blood (test code = Negative (08/19/22 2:54 UA Blood) PM) [facility] [id number] 19:54:00 Test Item Value Reference Range Interpretation Comments UA Urobilinogen (test code = UA 0.2 0.1-1.0 Urobilinogen) [facility] AND [id number] 19:54:00 Test Item Value Reference Range Interpretation Comments UA Nitrite (test code Negative (08/19/22 2:54 = UA Nitrite) PM) [facility] [id number] 19:54:00 Test Item Value Reference Range Interpretation Comments UA Leuk Est (test code Small *ABN*(08/19/22 = UA Leuk Est) 2:54 PM) [facility] [id number] 19:54:00 Test Item Value Reference Range Interpretation Comments UA Sq Epi (test code = UA Sq Epi) Rare /LPF [facility] AND [id number] 19:54:00 Test Item Value Reference Range Interpretation Comments UA WBC (test code = UA WBC) 0-2 /HPF [facility] AND [id number] 19:54:00 Test Item Value Reference Range Interpretation Comments UA RBC (test None Seen See_Comment [Automated mes dayanna] code = UA RBC) (08/19/22 2:54 The system which PM) generated this result transmitted ref erence range: <=2. The reference range was not used to int erpret this result as normal/abnormal . [facility] AND [id number] 19:54:00 Test Item Value Reference Range Interpretation Comments UA Bacteria (test code = UA Occasional /HPF Bacteria) [facility] AND [id number] 19:54:00 Test Item Value Reference Range Interpretation Comments UA Renal Epi (test code = UA Renal 0-2 /LPF Epi) [facility]: [id number] 19:54:00 Test Item Value Reference Range Interpretation Comments Culture: Blood (test code No Growth At 4 Days = Culture: Blood) [facility]. METABOLIC PANEL (82536)2022-07-21 22:04:34 Test Item Value Reference Range Interpretation Comments NA (test code = 141 mmol/L 135-145 4621685990) K (test code = 3.8 mmol/L 3.5-5 3526179564) CL (test code = 107 mmol/L 98-108 9467134568) CO2 TOTAL (test code = 23 mmol/L 23-31 1726073630) AGAP (test code = 2-16 5187645871) BUN (test code = 13 mg/dL 7-23 6561055217) GLUCOSE (test code = 82 mg/dL 70-110 2924421915) CREATININE (test code = 0.92 mg/dL 0.5-1.04 8765718038) TOTAL BILI (test code = 1.5 mg/dL 0.1-1.1 H 6492420009) CALCIUM (test code = 10.0 mg/dL 8.6-10.6 3150428576) T PROTEIN (test code = 6.5 g/dL 6.3-8.2 6543677577) ALBUMIN (test code = 4.5 g/dL 3.5-5 7576484024) ALK PHOS (test code = 103 U/L 34-122 8272829163) ALTv (test code = 30 U/L 5-35 1742-6) AST(SGOT) (test code = 30 U/L 13-40 2293639241) eGFR (test code = mL/min/1.73m2 7695969167) SHEILA (test code = SHEILA) Association of [...] tests). Lab Interpretation Abnormal (test code = 80969-3) [facility] [id number] 22:01:15 Test Item Value Reference Range Interpretation Comments WBC (test code = See_Comment [Automated 7790-2) message] The sy stem which generated this [...] RDW-SD (test code = 39.1 fL 39-49.9 37263-7) RDW-CV (test code = 12.0 % 12-15.5 788-0) PLT (test code = See_Comment [Automated 777-3) message] The sy stem which generated this result transmitted reference range : 166 - 358 10*3/ ?L. The reference r kendell was not used to interpret this result as normal/abnormal . MPV (test code = 8.9 fL 9.5-12.9 L 16425-9) NRBC/100 WBC (test See_Comment [Automat ed code = 1339610926) message] The system which generated this result transmitted reference range : 0.0 - 10.0 /100 WBCs. The refer ence range was not u sed to interpret th is result as normal/abnormal . NRBC x10^3 (test code See_Comment [Auto mated = 5268335679) message] The s ystem which generated this result transmitted reference range : 10*3/?L. The reference range was not used to interpret this result as normal/abnormal . GRAN MAT (NEUT) % 78.0 % (test code = 770-8) IMM GRAN % (test code 0.40 % = 8691037869) LYMPH % (test code = 16.5 % 736-9) MONO % (test code = 4.1 % 5905-5) EOS % (test code = 0.3 % 713-8) BASO % (test code = 0.7 % 706-2) GRAN MAT x10^3(ANC) 5.98 10*3/uL 1.88-7.09 (test code = 4495431099) IMM GRAN x10^3 (test 0.03 10*3/uL 0-0.06 code = 1665778951) LYMPH x10^3 (test code 1.26 10*3/uL 1.32-3.29 L = 731-0) MONO x10^3 (test code 0.31 10*3/uL 0.33-0.92 L = 742-7) EOS x10^3 (test code = 0.03-0.39 L 711-2) BASO x10^3 (test code 0.05 10*3/uL 0.01-0.07 = 704-7) Lab Interpretation Abnormal (test code = 88317-4) [facility] 19:32:00 Test Item Value Reference Range Interpretation Comments Ethanol Lvl (test code = Ethanol <3.0 mg/dL Lvl) [facility] TexasEonqrhcDMMJTYBZKB8120-66-72 19:32:00 Test Item Value Reference Range Interpretation Comments Etoh (%) (test code = Etoh (%)) <0.003 % [facility] TexasYyvlhpbOBRUJZITJM1671-59-61 19:32:00 Test Item Value Reference Range Interpretation Comments Ethanol Lvl (test code = Ethanol <3.0 mg/dL Lvl) [facility]IxhcsceXQPVZLIUCP5846-83-56 19:32:00 Test Item Value Reference Range Interpretation Comments Etoh (%) (test code = Etoh (%)) <0.003 % [facility]DR[facility] [id number] 19:26:00 Test Item Value Reference Range Interpretation Comments U Amph Scr (test code Negative *NA*(02/03/22 = U Amph Scr) 2:26 PM) [facility]DR[facility] [id number] 19:26:00 Test Item Value Reference Range Interpretation Comments U Parisa Scr (test code Negative *NA*(02/03/22 = U Parisa Scr) 2:26 PM) [facility] [id number] 19:26:00 Test Item Value Reference Range Interpretation Comments U Benzodiaz Scr (test Negative *NA*(02/03/22 code = U Benzodiaz Scr) 2:26 PM) [facility] [id number] 19:26:00 Test Item Value Reference Range Interpretation Comments U Cocaine Scr (test Negative *NA*(02/03/22 code = U Cocaine Scr) 2:26 PM) [facility] RLCLQZ7357-94-39 19:26:00 Test Item Value Reference Range Interpretation Comments U Cannab Scr (test Negative *NA*(02/03/22 code = U Cannab Scr) 2:26 PM) [facility] [id number] 19:26:00 Test Item Value Reference Range Interpretation Comments U Opiate Scr (test Positive *ABN*(02/03/22 code = U Opiate Scr) 2:26 PM) [facility] [id number] 19:26:00 Test Item Value Reference Range Interpretation Comments U Phencyclidine Scr (test Negative code = U Phencyclidine *NA*(02/03/22 2:26 Scr) PM) [facility] [id number] 19:26:00 Test Item Value Reference Range Interpretation Comments UDS Note (test code = See Note (02/03/22 2:26 UDS Note) PM) [facility] [id number] 19:26:00 Test Item Value Reference Range Interpretation Comments UA Turbidity (test code = Clear (02/03/22 2:26 UA Turbidity) PM) [facility] [id number] 19:26:00 Test Item Value Reference Range Interpretation Comments UA Spec Grav (test code = UA Spec 1.003 1 Grav) [facility] [id number] 19:26:00 Test Item Value Reference Range Interpretation Comments UA pH (test code = UA pH) 8.0 1 5.0-8.0 [facility] [id number] 19:26:00 Test Item Value Reference Range Interpretation Comments UA Protein (test code = UA Negative mg/dL Protein) [facility] [id number] 19:26:00 Test Item Value Reference Range Interpretation Comments UA Glucose (test code = UA Negative mg/dL Glucose) [facility] [id number] 19:26:00 Test Item Value Reference Range Interpretation Comments UA Ketones (test code = UA Negative mg/dL Ketones) [facility] [id number] 19:26:00 Test Item Value Reference Range Interpretation Comments UA Bili (test code = Negative *NA*(02/03/22 UA Bili) 2:26 PM) [facility] [id number] 19:26:00 Test Item Value Reference Range Interpretation Comments UA Blood (test code = Small *ABN*(02/03/22 UA Blood) 2:26 PM) [facility] [id number] 19:26:00 Test Item Value Reference Range Interpretation Comments UA Nitrite (test code Negative (02/03/22 2:26 = UA Nitrite) PM) [facility] [id number] 19:26:00 Test Item Value Reference Range Interpretation Comments UA Leuk Est (test Negative (02/03/22 2:26 code = UA Leuk Est) PM) [facility] [id number] 19:26:00 Test Item Value Reference Range Interpretation Comments UA Sq Epi (test code = UA Sq Epi) None Seen [facility] [id number] 19:26:00 Test Item Value Reference Range Interpretation Comments UA Color (test code = UA Color) COLORLESS [facility] [id number] 19:26:00 Test Item Value Reference Range Interpretation Comments UA Urobilinogen (test code = UA <=1.0 mg/dL 0.1-1.0 Urobilinogen) [facility] [id number] 19:26:00 Test Item Value Reference Range Interpretation Comments U Amph Scr (test code Negative *NA*(02/03/22 = U Amph Scr) 2:26 PM) [facility] [id number] 19:26:00 Test Item Value Reference Range Interpretation Comments U Parisa Scr (test code Negative *NA*(02/03/22 = U Parisa Scr) 2:26 PM) [facility] [id number] 19:26:00 Test Item Value Reference Range Interpretation Comments U Benzodiaz Scr (test Negative *NA*(02/03/22 code = U Benzodiaz Scr) 2:26 PM) [facility] [id number] 19:26:00 Test Item Value Reference Range Interpretation Comments U Cocaine Scr (test Negative *NA*(02/03/22 code = U Cocaine Scr) 2:26 PM) [facility] [facility] [id number] 19:26:00 Test Item Value Reference Range Interpretation Comments U Cannab Scr (test Negative *NA*(02/03/22 code = U Cannab Scr) 2:26 PM) [facility] [id number] 19:26:00 Test Item Value Reference Range Interpretation Comments U Opiate Scr (test Positive *ABN*(02/03/22 code = U Opiate Scr) 2:26 PM) [facility] [id number] 19:26:00 Test Item Value Reference Range Interpretation Comments U Phencyclidine Scr (test Negative code = U Phencyclidine *NA*(02/03/22 2:26 Scr) PM) [facility] [id number] 19:26:00 Test Item Value Reference Range Interpretation Comments UDS Note (test code = See Note (02/03/22 2:26 UDS Note) PM) [facility] [id number] 19:26:00 Test Item Value Reference Range Interpretation Comments UA Turbidity (test code = Clear (02/03/22 2:26 UA Turbidity) PM) [facility] [id number] 19:26:00 Test Item Value Reference Range Interpretation Comments UA Spec Grav (test code = UA Spec 1.003 1 Grav) [facility] [id number] 19:26:00 Test Item Value Reference Range Interpretation Comments UA pH (test code = UA pH) 8.0 1 5.0-8.0 [facility] [id number] 19:26:00 Test Item Value Reference Range Interpretation Comments UA Protein (test code = UA Negative mg/dL Protein) [facility] [id number] 19:26:00 Test Item Value Reference Range Interpretation Comments UA Glucose (test code = UA Negative mg/dL Glucose) [facility] [id number] 19:26:00 Test Item Value Reference Range Interpretation Comments UA Ketones (test code = UA Negative mg/dL Ketones) [facility] [id number] 19:26:00 Test Item Value Reference Range Interpretation Comments UA Bili (test code = Negative *NA*(02/03/22 UA Bili) 2:26 PM) [facility] [id number] 19:26:00 Test Item Value Reference Range Interpretation Comments UA Blood (test code = Small *ABN*(02/03/22 UA Blood) 2:26 PM) [facility] AND [id number] 19:26:00 Test Item Value Reference Range Interpretation Comments UA Nitrite (test code Negative (02/03/22 2:26 = UA Nitrite) PM) [facility] [id number] 19:26:00 Test Item Value Reference Range Interpretation Comments UA Leuk Est (test Negative (02/03/22 2:26 code = UA Leuk Est) PM) [facility] AND [id number] 19:26:00 Test Item Value Reference Range Interpretation Comments UA Sq Epi (test code = UA Sq Epi) None Seen [facility] AND [id number] 19:26:00 Test Item Value Reference Range Interpretation Comments UA Color (test code = UA Color) COLORLESS [facility] AND [id number] 19:26:00 Test Item Value Reference Range Interpretation Comments UA Urobilinogen (test code = UA <=1.0 mg/dL 0.1-1.0 Urobilinogen) [facility]LuhvqhlGKGSLTUVHC0671-51-62 18:45:00 Test Item Value Reference Range Interpretation Comments Coronavirus (COVID-19) Not Detected (02/03/22 CHRIS (test code = 1:45 PM) Coronavirus (COVID-19) CHRIS) [facility] TexasRggiuycWAUOJNVXLD2177-81-18 18:45:00 Test Item Value Reference Range Interpretation Comments Coronavirus (COVID-19) Not Detected (02/03/22 CHRIS (test code = 1:45 PM) Coronavirus (COVID-19) CHRIS) [facility] [id number] 17:33:00 Test Item Value Reference Range Interpretation Comments HS Troponin I (test code = HS Troponin 4 I) [facility] [id number] 17:33:00 Test Item Value Reference Range Interpretation Comments Total CK (test code = Total CK) 211 12-191 [facility]annCHEM [id number] 17:33:00 Test Item Value Reference Range Interpretation Comments Glucose Lvl (test code = Glucose Lvl) 73 70-99 [place] 698482-03-28 17:33:00 Test Item Value Reference Range Interpretation Comments BUN (test code = BUN) 16 7-22 [place] 698482-03-28 17:33:00 Test Item Value Reference Range Interpretation Comments Creatinine Lvl (test code = Creatinine 1.03 0.50-1.40 Lvl) [place] 698482-03-28 17:33:00 Test Item Value Reference Range Interpretation Comments Sodium Lvl (test code = Sodium Lvl) 137 135-145 [place] 698482-03-28 17:33:00 Test Item Value Reference Range Interpretation Comments Potassium Lvl (test code = Potassium 4.5 3.5-5.1 Lvl) [place] 698482-03-28 17:33:00 Test Item Value Reference Range Interpretation Comments Chloride Lvl (test code = Chloride Lvl) 101 95-109 [place] 698482-03-28 17:33:00 Test Item Value Reference Range Interpretation Comments CO2 (test code = CO2) 33 24-32 [place] 698482-03-28 17:33:00 Test Item Value Reference Range Interpretation Comments Calcium Lvl (test code = Calcium Lvl) 9.7 8.5-10.5 [facility]2022-03-28 17:33:00 Test Item Value Reference Range Interpretation Comments AGAP (test code = AGAP) 7.5 10.0-20.0 [place] 698482-03-28 17:33:00 Test Item Value Reference Range Interpretation Comments eGFR (test code = eGFR) 60 [place] 324032-03-28 17:33:00 Test Item Value Reference Range Interpretation Comments WBC (test code = WBC) 6.3 3.7-10.4 [place] 324032-03-28 17:33:00 Test Item Value Reference Range Interpretation Comments RBC (test code = RBC) 4.40 4.20-5.40 [place] 324032-03-28 17:33:00 Test Item Value Reference Range Interpretation Comments Hgb (test code = Hgb) 14.2 12.0-16.0 [place] 324032-03-28 17:33:00 Test Item Value Reference Range Interpretation Comments Hct (test code = Hct) 42.3 36.0-48.0 [place] 324032-03-28 17:33:00 Test Item Value Reference Range Interpretation Comments MCV (test code = MCV) 96.2 80.0-98.0 [place] [address]-03-28 17:33:00 Test Item Value Reference Range Interpretation Comments MCH (test code = MCH) 32.2 pg 27.0-31.0 [place] [address]-03-28 17:33:00 Test Item Value Reference Range Interpretation Comments MCHC (test code = MCHC) 33.5 32.0-36.0 [place] 324032-03-28 17:33:00 Test Item Value Reference Range Interpretation Comments RDW (test code = RDW) 12.4 11.5-14.5 [place] 324032-03-28 17:33:00 Test Item Value Reference Range Interpretation Comments Platelet (test code = Platelet) 207 133-450 [facility] CampusMypyqzqQRXLNESZUZ4071-24-08 17:33:00 Test Item Value Reference Range Interpretation Comments MPV (test code = MPV) 7.4 7.4-10.4 [place] [address]-03-28 17:33:00 Test Item Value Reference Range Interpretation Comments Segs (test code = Segs) 70.9 45.0-75.0 [place] 324032-03-28 17:33:00 Test Item Value Reference Range Interpretation Comments Lymphocytes (test code = Lymphocytes) 20.0 20.0-40.0 [place] 324032-03-28 17:33:00 Test Item Value Reference Range Interpretation Comments Monocytes (test code = Monocytes) 5.2 2.0-12.0 [place] [address]-03-28 17:33:00 Test Item Value Reference Range Interpretation Comments Eosinophils (test code = 3.5 See_Comment [A utomated message] The Eosinophils) system which ge nerated this result tra nsmitted reference range : <=4.0. The reference r kendell was not used to int erpret this result as normal/abnormal . [place] 324032-03-28 17:33:00 Test Item Value Reference Range Interpretation Comments Basophils (test code = 0.4 See_Comment [Aut omated message] The Basophils) system which ge nerated this result tra nsmitted reference range : <=1.0. The reference r kendell was not used to int erpret this result as normal/abnormal . [facility] TexasZoviamhSXJKVLBFWR5828-02-70 17:33:00 Test Item Value Reference Range Interpretation Comments Neutrophils # (test code = Neutrophils 4.5 1.5-8.1 #) [facility]yf[facility]MDSE8448-59-17 17:33:00 Test Item Value Reference Range Interpretation Comments Lymphocytes # (test code = Lymphocytes 1.3 1.0-5.5 #) [facility]OclrmxyHXRAHQQEOZ8151-30-11 17:33:00 Test Item Value Reference Range Interpretation Comments Monocytes # (test code 0.3 See_Comment [Aut omated message] The = Monocytes #) system which generated this result tra nsmitted reference range : <=0.8. The reference r kendell was not used to int erpret this result as normal/abnormal . [facility] TexasJndjqabAUEBPYAXRK6172-33-88 17:33:00 Test Item Value Reference Range Interpretation Comments Eosinophils # (test code 0.2 See_Comment [A utomated message] The = Eosinophils #) system whic h generated this result tra nsmitted reference range : <=0.5. The reference r kendell was not used to int erpret this result as normal/abnormal . [facility] TexasEydytysVSUCCDMMMV2611-28-98 17:33:00 Test Item Value Reference Range Interpretation Comments Ethanol Lvl (test code = Ethanol Lvl) no gt [facility] AmericaQluvagoLOQLMZGNQO4941-53-98 17:33:00 Test Item Value Reference Range Interpretation Comments Etoh (%) (test code = Etoh (%)) no gt [facility]annCARDIAC VJCERLZ3043-07-15 17:33:00 Test Item Value Reference Range Interpretation Comments HS Troponin I (test code = HS Troponin 4 I) [facility]CARD[facility] [id number] 17:33:00 Test Item Value Reference Range Interpretation Comments Total CK (test code = Total CK) 211 12-191 [facility] AmericaPorchCHEM NYLLX8203-33-14 17:33:00 Test Item Value Reference Range Interpretation Comments Glucose Lvl (test code = Glucose Lvl) 73 70-99 [place] 698482-03-28 17:33:00 Test Item Value Reference Range Interpretation Comments BUN (test code = BUN) 16 7-22 [place] 698482-03-28 17:33:00 Test Item Value Reference Range Interpretation Comments Creatinine Lvl (test code = Creatinine 1.03 0.50-1.40 Lvl) [place] 698482-03-28 17:33:00 Test Item Value Reference Range Interpretation Comments Sodium Lvl (test code = Sodium Lvl) 137 135-145 [place] 698482-03-28 17:33:00 Test Item Value Reference Range Interpretation Comments Potassium Lvl (test code = Potassium 4.5 3.5-5.1 Lvl) [place] 698482-03-28 17:33:00 Test Item Value Reference Range Interpretation Comments Chloride Lvl (test code = Chloride Lvl) 101 95-109 [place] 698482-03-28 17:33:00 Test Item Value Reference Range Interpretation Comments CO2 (test code = CO2) 33 24-32 [place] 698482-03-28 17:33:00 Test Item Value Reference Range Interpretation Comments Calcium Lvl (test code = Calcium Lvl) 9.7 8.5-10.5 [place] 698482-03-28 17:33:00 Test Item Value Reference Range Interpretation Comments AGAP (test code = AGAP) 7.5 10.0-20.0 [place] 698482-03-28 17:33:00 Test Item Value Reference Range Interpretation Comments eGFR (test code = eGFR) 60 [place] [address]-03-28 17:33:00 Test Item Value Reference Range Interpretation Comments WBC (test code = WBC) 6.3 3.7-10.4 [place] [address]-03-28 17:33:00 Test Item Value Reference Range Interpretation Comments RBC (test code = RBC) 4.40 4.20-5.40 [place] [address]-03-28 17:33:00 Test Item Value Reference Range Interpretation Comments Hgb (test code = Hgb) 14.2 12.0-16.0 [place] [address]-03-28 17:33:00 Test Item Value Reference Range Interpretation Comments Hct (test code = Hct) 42.3 36.0-48.0 [place] [address]-03-28 17:33:00 Test Item Value Reference Range Interpretation Comments MCV (test code = MCV) 96.2 80.0-98.0 [place] [address]-03-28 17:33:00 Test Item Value Reference Range Interpretation Comments MCH (test code = MCH) 32.2 pg 27.0-31.0 [place] 324032-03-28 17:33:00 Test Item Value Reference Range Interpretation Comments MCHC (test code = MCHC) 33.5 32.0-36.0 [place] 324032-03-28 17:33:00 Test Item Value Reference Range Interpretation Comments RDW (test code = RDW) 12.4 11.5-14.5 [place] [address]-03-28 17:33:00 Test Item Value Reference Range Interpretation Comments Platelet (test code = Platelet) 207 133-450 [place] 324032-03-28 17:33:00 Test Item Value Reference Range Interpretation Comments MPV (test code = MPV) 7.4 7.4-10.4 [place] [address]-03-28 17:33:00 Test Item Value Reference Range Interpretation Comments Segs (test code = Segs) 70.9 45.0-75.0 [place] 324032-03-28 17:33:00 Test Item Value Reference Range Interpretation Comments Lymphocytes (test code = Lymphocytes) 20.0 20.0-40.0 [place] 324032-03-28 17:33:00 Test Item Value Reference Range Interpretation Comments Monocytes (test code = Monocytes) 5.2 2.0-12.0 [place] [address]-03-28 17:33:00 Test Item Value Reference Range Interpretation Comments Eosinophils (test code = 3.5 See_Comment [A utomated message] The Eosinophils) system which ge nerated this result tra nsmitted reference range : <=4.0. The reference r kendell was not used to int erpret this result as normal/abnormal . [place] 324032-03-28 17:33:00 Test Item Value Reference Range Interpretation Comments Basophils (test code = 0.4 See_Comment [Aut omated message] The Basophils) system which ge nerated this result tra nsmitted reference range : <=1.0. The reference r kendell was not used to int erpret this result as normal/abnormal . [facility] CampusKcxngzaPPWGZKTRXU5715-56-64 17:33:00 Test Item Value Reference Range Interpretation Comments Neutrophils # (test code = Neutrophils 4.5 1.5-8.1 #) [facility] CampusPxscmkkPQZFPKRNNO6378-18-68 17:33:00 Test Item Value Reference Range Interpretation Comments Lymphocytes # (test code = Lymphocytes 1.3 1.0-5.5 #) [facility] CampusUyngzifYIEVMCLRWA6565-44-81 17:33:00 Test Item Value Reference Range Interpretation Comments Monocytes # (test code 0.3 See_Comment [Aut omated message] The = Monocytes #) system which generated this result tra nsmitted reference range : <=0.8. The reference r kendell was not used to int erpret this result as normal/abnormal . [facility] CampusEbkkfbbUZMRYGJVAR4687-23-06 17:33:00 Test Item Value Reference Range Interpretation Comments Eosinophils # (test code 0.2 See_Comment [A utomated message] The = Eosinophils #) system whic h generated this result tra nsmitted reference range : <=0.5. The reference r kendell was not used to int erpret this result as normal/abnormal . [place] 77133022-03-28 17:33:00 Test Item Value Reference Range Interpretation Comments Ethanol Lvl (test code = Ethanol Lvl) no [place] 51179022-03-28 17:33:00 Test Item Value Reference Range Interpretation Comments Etoh (%) (test code = Etoh (%)) no [facility]2021-11-06 05:13:54 Test Item Value Reference Range Interpretation Comments AFB culture No growth Specimen isolate (test after 6 weeks InformationSp ecimen code = 543-9) of Source: Joint incubation. FluidSpecimen S ite: PLEASE HOLD FOR 21 DAY S [facility]2021-11-06 05:13:54 Test Item Value Reference Range Interpretation Comments AFB culture No growth Specimen isolate (test after 6 weeks InformationSp ecimen code = 543-9) of Source: Joint incubation. FluidSpecimen S ite: PLEASE HOLD FOR 21 DAY S [facility] lmjjtgl6721-95-17 05:13:54 Test Item Value Reference Range Interpretation Comments AFB culture No growth Specimen isolate (test after 6 weeks InformationSp ecimen code = 543-9) of Source: Joint incubation. FluidSpecimen S ite: PLEASE HOLD FOR 21 DAY S [facility]view[facility] qjhndsz2244-54-70 05:15:49 Test Item Value Reference Range Interpretation Comments Fungus culture No growth Specimen isolate (test after 4 weeks InformationSp ecimen code = 1441) of Source: Joint incubation. FluidSpecimen S ite: PLEASE HOLD FOR 21 DAY S [facility] ktjpwaw9046-97-28 05:15:49 Test Item Value Reference Range Interpretation Comments Fungus culture No growth Specimen isolate (test after 4 weeks InformationSp ecimen code = 1441) of Source: Joint incubation. FluidSpecimen S ite: PLEASE HOLD FOR 21 DAY S [facility] apzzkzr0114-52-09 05:15:49 Test Item Value Reference Range Interpretation Comments Fungus culture No growth Specimen isolate (test after 4 weeks InformationSp ecimen code = 1441) of Source: Joint incubation. FluidSpecimen S ite: PLEASE HOLD FOR 21 DAY S [facility] fluid uogktmj1358-29-21 03:24:41 Test Item Value Reference Range Interpretation Comments Joint fluid No growth Specimen culture isolate after 4 days. Information Specimen (test code = Source: Joint 1634) FluidSpecimen S ite: PLEASE HOLD FOR 21 DAY S [facility] fluid fnfzvqa7204-19-98 03:24:41 Test Item Value Reference Range Interpretation Comments Joint fluid No growth Specimen culture isolate after 4 days. Information Specimen (test code = Source: Joint 1634) FluidSpecimen S ite: PLEASE HOLD FOR 21 DAY S [facility] fluid wztgzyp8890-01-05 03:24:41 Test Item Value Reference Range Interpretation Comments Joint fluid No growth Specimen culture isolate after 4 days. Information Specimen (test code = Source: Joint 1634) FluidSpecimen S ite: PLEASE HOLD FOR 21 DAY S [facility] gmxcklb2936-90-93 14:08:12 Test Item Value Reference Range Interpretation Comments Anaerobic No anaerobic Specimen culture isolate organisms InformationS pecimen (test code = isolated. Source: Joint 552) FluidSpecimen S ite: PLEASE HOLD FOR 21 DAYS [facility] notkqvd7508-58-85 14:08:12 Test Item Value Reference Range Interpretation Comments Anaerobic No anaerobic Specimen culture isolate organisms InformationS pecimen (test code = isolated. Source: [place] [address]) FluidSpecimen S ite: PLEASE HOLD FOR 21 DAYS [facility] gpcxxrf2181-55-59 14:08:12 Test Item Value Reference Range Interpretation Comments Anaerobic No anaerobic Specimen culture isolate organisms InformationS pecimen (test code = isolated. Source: [place] [address]) FluidSpecimen S ite: PLEASE HOLD FOR 21 DAYS [facility] pohir2401-25-51 18:30:51 Test Item Value Reference Range Interpretation Comments Fungus smear No fungi Specimen (test code = observed. InformationSpec imen Source: 1443) [facility] Site: PLEASE HOLD FOR 21 DAYS [facility] cqzxo9152-12-67 18:30:51 Test Item Value Reference Range Interpretation Comments Fungus smear No fungi Specimen (test code = observed. InformationSpec imen Source: 1443) [facility] Site: PLEASE HOLD FOR 21 DAYS [facility] jwqgc7693-08-01 18:30:51 Test Item Value Reference Range Interpretation Comments Fungus smear No fungi Specimen (test code = observed. InformationSpec imen Source: 1443) [facility] Site: PLEASE HOLD FOR 21 DAYS [facility] tstpc1517-53-64 16:04:26 Test Item Value Reference Range Interpretation Comments AFB stain No acid fast Specimen (test code = bacilli (AFB) InformationSpe cimen 676-7) seen. [facility] P[facility] FOR 21 [facility] S [facility] qqjnl7076-20-59 16:04:26 Test Item Value Reference Range Interpretation Comments AFB stain No acid fast Specimen (test code = bacilli (AFB) InformationSpe cimen 676-7) seen. Source: [facility] FluidSpecimen S ite: PLEASE HOLD FOR 21 DAY S [facility] wfhhz8667-13-00 16:04:26 Test Item Value Reference Range Interpretation Comments AFB stain No acid fast Specimen (test code = bacilli (AFB) InformationSpe cimen 676-7) seen. Source: Joint FluidSpecimen S ite: PLEASE HOLD FOR 21 DAY S [facility]view[facility] [id number] 03:53:00Gram stain isolateRare WBC'sNo organisms seen 08/02/2021 10:[address] [facility] kcppo2112-70-48 03:53:00Gram stain isolateRare WBC'sNo organisms seen 08/02/2021 10:[address] [facility] mnlvf9439-06-90 03:53:00Gram stain isolateRare WBC'sNo organisms seen 08/02/2021 10:[address] [facility] HospitalCell count and differential, body mnrse0573-55-93 02:59:47 Test Item Value Reference Range Interpretation Comments Misc fluid type (test JOINT FLUID code = 89122-2) Color, fluid (test Red code = 6824-7) Appearance, fluid Clear (test code = 9335-1) RBC, fluid (test code See_Comment DISREG AMPARO PREVIOUS = 59165-4) RESULTS, WERE AUTOMATED (QUESTIONABLE); THEREFORE A MAN UAL COUNT WAS PERFORMED,AND M ANUAL COUNT CORRELATE D. Corrected resul t; previously repo rted as [phone] on 08/02/2021 at 1 7:19 by [id number] REPORT, Previou vielka reported as: [place] EVIOUS RESULTS WERE AUTOMATED (QUESTIONABLE), THEREFORE A [...] fluid (test code = previousl y reported 99096-1) as 1500 on 07/11 at 17:19 by PEC 3 [Automated mess age] The system [employer] h generated this result transmitted ref erence range: /CMM. Th e reference range was not used to int erpret this result as normal/abnormal . Fluid mononuclear 2/CMM cell (test code = 1407) SHEILA (test code = SHEILA) right knee [facility] count and differential, body hjadv0332-03-55 02:59:47 Test Item Value Reference Range Interpretation Comments Misc fluid type (test JOINT FLUID code = 67886-4) Color, fluid (test Red code = 6824-7) Appearance, fluid Clear (test code = 9335-1) RBC, fluid (test code See_Comment DISREG AMPARO PREVIOUS = 60561-4) RESULTS, WERE AUTOMATED (QUESTIONABLE); THEREFORE A MAN UAL COUNT WAS PERFORMED,AND M ANUAL COUNT CORRELATE D. Corrected resul t; previously repo rted as [phone] on 08/02/2021 at 1 7:19 by [id number] REPORT, Previou sly reported as: [place] EVIOUS RESULTS WERE AUTOMATED (QUESTIONABLE), THEREFORE A [...] fluid (test code = previousl y reported 21188-5) as 1500 on 07/11 at 17:19 by PEC 3 [Automated mess age] The system [employer] h generated this result transmitted ref erence range: /CMM. Th e reference range was not used to int erpret this result as normal/abnormal . Fluid mononuclear 2/CMM cell (test code = 1407) SHEILA (test code = SHEILA) right knee [facility] differential, body [id number] 02:59:47 Test Item Value Reference Range Interpretation Comments Misc fluid type (test JOINT FLUID code = 94140-0) Color, fluid (test Red code = 6824-7) Appearance, fluid Clear (test code = 9335-1) RBC, fluid (test code See_Comment DISREG AMPARO PREVIOUS = 34645-0) RESULTS, WERE AUTOMATED (QUESTIONABLE); THEREFORE A MAN UAL COUNT WAS PERFORMED,AND M ANUAL COUNT CORRELATE D. Corrected resul t; previously repo rted as [phone] on 08/02/2021 at 1 7:19 by [id number] REPORT, Previou sly reported as: [place] EVIOUS RESULTS WERE AUTOMATED (QUESTIONABLE), THEREFORE A [...] fluid (test code = previousl y reported 55242-9) as 1500 on 07/11 at 17:19 by PEC 3 [Automated mess age] The system [employer] h generated this result transmitted ref erence range: /CMM. Th e reference range was not used to int erpret this result as normal/abnormal . Fluid mononuclear 2/CMM cell (test code = 1407) SHEILA (test code = SHEILA) [facility] [id number] 12:12:15 Test Item Value Reference Range Interpretation Comments URINE CULTURE (test < 10,000 CFU/mL mixed code = 630-4) aerobic organisms - suggests endogenous microbial contamination [facility] (NA, K, CL, CO2, GLUCOSE, BUN, CREATININE, CA)2021-04-03 11:03:41 Test Item Value Reference Range Interpretation Comments NA (test code = 136 mmol/L 135-145 [id number]) K (test code = 4.5 mmol/L 3.5-5.0 Slight 5062340208) hemolysis CL (test code = 94 mmol/L 98-108 L 5503811371) CO2 TOTAL (test code 38 mmol/L 23-31 H = 8175871642) AGAP (test code = 2-16 1962039329) BUN (test code = 28 mg/dL 7-23 H Slight 6522933938) hemolysis GLUCOSE (test code = 119 mg/dL 70-110 H 8952840999) CREATININE (test code 0.73 mg/dL 0.50-1.04 = 5669624757) CALCIUM (test code = 8.8 mg/dL 8.6-10.6 [id number]) eGFR (test code = mL/min/1.73m2 4087364811) SHEILA (test code = SHEILA) Association of [...] tests). Lab Interpretation Abnormal (test code = 94525-9) [facility] METABOLIC PANEL (NA, K, CL, CO2, GLUCOSE, BUN, CREATININE, CA)2021-04-03 11:03:41 Test Item Value Reference Range Interpretation Comments NA (test code = NA) 136 135-145 [facility] METABOLIC PANEL (NA, K, CL, CO2, GLUCOSE, BUN, CREATININE, CA)2021-04-03 11:03:41 Test Item Value Reference Range Interpretation Comments K (test code = K) 4.5 3.5-5.0 [facility] METABOLIC PANEL (NA, K, CL, CO2, GLUCOSE, BUN, CREATININE, CA)2021-04-03 11:03:41 Test Item Value Reference Range Interpretation Comments CL (test code = CL) 94 98-108 [facility] METABOLIC PANEL (NA, K, CL, CO2, GLUCOSE, BUN, CREATININE, CA)2021-04-03 11:03:41 Test Item Value Reference Range Interpretation Comments CO2 TOTAL (test code = CO2 TOTAL) 38 23-31 [facility] (NA, K, CL, CO2, GLUCOSE, BUN, CREATININE, CA)2021-04-03 11:03:41 Test Item Value Reference Range Interpretation Comments AGAP (test code = AGAP) 4 2-16 [facility] (NA, K, CL, CO2, GLUCOSE, BUN, CREATININE, CA)2021-04-03 11:03:41 Test Item Value Reference Range Interpretation Comments BUN (test code = BUN) 28 7-23 [facility] (NA, K, CL, CO2, GLUCOSE, BUN, CREATININE, CA)2021-04-03 11:03:41 Test Item Value Reference Range Interpretation Comments GLUCOSE (test code = GLUCOSE) 119 70-110 [facility] (NA, K, CL, CO2, GLUCOSE, BUN, CREATININE, CA)2021-04-03 11:03:41 Test Item Value Reference Range Interpretation Comments CREATININE (test code = CREATININE) 0.73 0.50-1.04 [facility] (NA, K, CL, CO2, GLUCOSE, BUN, CREATININE, CA)2021-04-03 11:03:41 Test Item Value Reference Range Interpretation Comments CALCIUM (test code = CALCIUM) 8.8 8.6-10.6 [facility] (NA, K, CL, CO2, GLUCOSE, BUN, CREATININE, CA)2021-04-03 11:03:41 Test Item Value Reference Range Interpretation Comments eGFR (test code = eGFR) 82.5 [facility] (EEG[facility] - Duration of test: 20-60 mins; Release to patient: [id number] 00:00:00Date and Time of Procedure: 04/03/2021, 08:40 [...] written. Gibran Dickens MD Date of interpretation: 04/03/2021[id number] 20:24:03 Test Item Value Reference Range Interpretation Comments NT-proBNP (test code 218 pg/mL See_Comment H [Autom ated = [id number]) message] The system which generated this result transmitted reference range : <=125. The reference range was not used to interpret this result as normal/abnormal . SHEILA (test code = SHEILA) Biotin has been reported to cause a negative bias, interpret results relative to patient's use of biotin. Lab Interpretation Abnormal (test code = 62002-6) [facility] [id number] 13:04:48 No acute cardiopulmonary abnormality. Preliminary Report [...] reviewed this study and agree with theabove report.[facility] PAN[facility] 20 + LACTIC [id number] 03:36:51 Test Item Value Reference Range Interpretation Comments PH (test code = 2) 7.35-7.45 L PCO2 (test code = See_Comment H [Automate d [id number]) message] The sy stem which generated this result transmitted reference range : 35 - 45 mmHg. The reference range was not used to interpret this result as normal/abnormal . PO2 (test code = See_Comment L [Automated 3416144477) message] The sy stem which generated this result transmitted reference range : 80 - 100 mmHg. The reference range was not used to interpret this result as normal/abnormal . HCO3 (test code = See_Comment H [Automate d 6766908349) message] The sy stem which generated this result transmitted reference range : 22 - 26 mEq/L. The reference range was not used to interpret this result as normal/abnormal . BE (test code = See_Comment [Automated 8337152658) message] The sy stem which generated this result transmitted reference range : -3.0 - 3.0 mEq/ L. The reference r kendell was not used to interpret this result as normal/abnormal . THB (test code = 14.2 g/dL 12.0-16.0 7129083753) %O2HB (test code = 89.4 % 94.0-99.0 L 9320819452) %COHB ART (test code = 4.8 % 0.0-1.5 H 6328222514) %METHB ART (test code = 0.3 % 0.4-1.5 L 8041288801) VOL%O2 ART (test code = 17.9 % 15.0-23.0 4063741189) NA (test code = 135 mmol/L 135-145 5610081892) K+ (test code = 4.3 mmol/L 3.5-5.0 4389204296) AC CA IONZ (test code = 4.60 mg/dL 4.50-5.30 6243075829) GLUCOSE (test code = 95 mg/dL 70-110 1284451621) LACTIC ACID (test code 0.78 mmol/L 0.50-2.20 = 3606397305) Lab Interpretation Abnormal (test code = 56538-3) [facility]21-[facility] 03:05:08 Test Item Value Reference Range Interpretation Comments ALCOHOL (test code = <10 mg/dL 1108772647) SHEILA (test code = SHEILA) <10 Iocdtegr54-509 Toxic>100 Depression of MANAGER POST>400 Fatalities Reported [facility]anoTroponin [id number] 02:35:56 Test Item Value Reference Range Interpretation Comments TROPONIN I (test <0.012 See_Comment [Automated code = 0212505154) message] The system which generated this result [...] ? Lab Interpretation Normal (test code = 32912-1) [facility] (IMMUNOASSAY) - COMPREHENSIVE DRUG [id number] 02:32:35 Test Item Value Reference Range Interpretation Comments AMPHET (test code = Negative Negative 4843282686) PARISA U (test code = Negative Negative 4979213560) BENZO U (test code = Negative Negative 3367498904) Cocaine Metabolite (test Negative Negative code = 8817148755) METHADONE (test code = Negative Negative 8363766506) OPIATES (test code = Presumptive Positive Negative A 6800222014) PCP (test code = Presumptive Positive Negative A 5272154771) THC (test code = Negative Negative 6563892918) SHEILA (test code = SHEILA) Urine Drug [...] testing). Lab Interpretation (test Abnormal code = 66951-3) [facility] (ID NOW RAPID TESTING)2021-04-02 02:30:32 Test Item Value Reference Range Interpretation Comments SARS-CoV-2 Rapid ID NOW Not Detected Not Detected (test code = 87500-2) SHEILA (test code = SHEILA) ID NOW COVID-19 Assay is an isothermal nucleic acid amplification test intended for the qualitative detection of nucleic acid from SARS-CoV-2 viral RNA in nasopharyngeal (INSPECTOR CLIP ON SUNGLASSES) specimens. It is used under Emergency Use [...] indicated. Lab Interpretation Normal (test code = 40174-5) [facility] Metabolic Panel (NA, K, CL, CO2, GLUCOSE, BUN, CREATININE, CA)2021-04-02 02:24:48 Test Item Value Reference Range Interpretation Comments NA (test code = 136 mmol/L 135-145 6964940473) K (test code = 4.9 mmol/L 3.5-5.0 2828856113) CL (test code = 96 mmol/L 98-108 L 0345194674) CO2 TOTAL (test code = 31 mmol/L 23-31 4504507384) AGAP (test code = 2-16 4299934897) BUN (test code = 43 mg/dL 7-23 H 9116659727) GLUCOSE (test code = 96 mg/dL 70-110 0709967083) CREATININE (test code = 0.92 mg/dL 0.50-1.04 5025297098) CALCIUM (test code = 9.4 mg/dL 8.6-10.6 0894699215) eGFR (test code = mL/min/1.73m2 8304034649) SHEILA (test code = SHEILA) Association of [...] tests). Lab Interpretation Abnormal (test code = 47797-0) [facility] Function [facility] (ALB, T.PRO, BILI T, BU/BC, ALT, AST, ALK PHOS)2021-04-02 02:24:48 Test Item Value Reference Range Interpretation Comments TOTAL BILI (test code = 0051434262) 0.7 mg/dL 0.1-1.1 BILI UNCON (test code = 9779978211) 0.4 mg/dL 0.1-1.1 BILI CONJ (test code = 8795021240) 0.0 mg/dL 0.0-0.3 T PROTEIN (test code = 9041548303) 6.8 g/dL 6.3-8.2 ALBUMIN (test code = 0578408965) 4.4 g/dL 3.5-5.0 ALK PHOS (test code = 3042026114) 85 U/L 34-122 ALTv (test code = 1742-6) 27 U/L 5-35 AST(SGOT) (test code = 6671727078) 53 U/L 13-40 H Lab Interpretation (test code = Abnormal 67992-7) [facility]CT HEAD WO [id number] 02:03:35 No acute intracranial findings. Left occipital [...] are patent. No parenchymal attenuation abnormality. The alcocer-white matterdifferentiation is preserved. The calvarium and central skull base intact. Mild ethmoid air cell mucosalthickening. [facility], Radiant Results Inft User - 04/01/2021 [...] cisterns are patent.No parenchymal attenuation abnormality. The alcocer-white matterdifferentiation is preserved.The calvarium and central skull base intact. Mild ethmoid air cell mucosalthickening.IMPRESSIONNo acute intracranial findings. 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 Correlation with prior surgical history suggested.[facility] BicwgvOdiuqiblgz6222-58-67 01:59:54 Test Item Value Reference Range Interpretation Comments APPEARANCE (test code = Clear Clear 2205288549) COLOR (test code = Yellow Yellow 2649775546) PH (test code = 4.8-8.0 0077196219) SP GRAVITY (test code = 1.003-1.030 5652019885) GLU U QUAL (test code = Normal Normal 1964901376) BLOOD (test code = Negative Negative 8178509926) KETONES (test code = Negative Negative 0374449515) PROTEIN (test code = Negative Negative 2887-8) UROBILIN (test code = Normal Normal 5643404134) BILIRUBIN (test code = 2 mg/dL Negative A 4873859907) NITRITE (test code = Negative Negative 0688131169) LEUK MERYL (test code = 250/uL Negative A 3675419244) RBC/HPF (test code = See_Comment [Autom ated message] 2095844238) The system [employer] generated this result transmitted ref erence range: 0 - 3 HP F. The reference range was not used to int erpret this result as normal/abnormal . WBC/HPF (test code = See_Comment H [Autom ated message] 4983152238) The system [employer] generated this result transmitted ref erence range: 0 - 5 HP F. The reference range was not used to int erpret this result as normal/abnormal . BACTERIA (test code = Few Negative A 0395210292) MUCOUS (test code = Slight Negative LPF A 6397461190) SQ EPITH (test code = HPF 7337969699) HYAL CAST (test code = See_Comment [Aut omated message] 5921107758) The system [employer] generated this result transmitted ref erence range: <=2 LPF. The reference range was not used to int erpret this result as normal/abnormal . Lab Interpretation (test Abnormal code = 98793-1) [facility]anoaPTT2021-05-25 01:49:53 Test Item Value Reference Range Interpretation Comments APTT Patient (test See_Comment [Automat ed code = 3173-2) message] The system which generated this result transmitted reference range : 23 - 38 Seconds . The reference range was not used to interpr et this result as normal/abnormal . SHEILA (test code = SHEILA) The [facility] patient population mean normal value for aPTT is 30 seconds. Lab Interpretation Normal (test code = 94253-6) [facility]anoProthrombin Time (PT) / [id number] 01:47:51 Test Item Value Reference Range Interpretation Comments PROTIME PATIENT (test See_Comment [Auto mated message] code = 5964-2) The system [facility] generated this result transmitted ref erence range: 12.0 - 1 4.7 Seconds. The re ference range was not u sed to interpret this result as normal/abnor mal. INR (test code = 6301-6) Nor mal INR <1.1; Warfarin Therap eutic range 2.0 to 3. 0 or 2.5 to 3.5, dep ending upon the indica tions. Lab Interpretation (test Normal code = 87936-6) [facility] Jvcmbfkahzot3568-44-21 01:38:27 Test Item Value Reference Range Interpretation Comments WBC (test code = See_Comment [Automated 5590-2) message] The sy stem which generated this [...] RDW-SD (test code = 44.2 fL 39.0-49.9 39177-6) RDW-CV (test code = 12.5 % 12.0-15.5 788-0) PLT (test code = See_Comment [Automated 777-3) message] The sy stem which generated this result transmitted reference range : 166 - 358 10*3/ ?L. The reference r kendell was not used to interpret this result as normal/abnormal . MPV (test code = 9.4 fL 9.5-12.9 L 91198-4) NRBC/100 WBC (test See_Comment [Automat ed code = 6528510907) message] The system which generated this result transmitted reference range : 0.0 - 10.0 /100 WBCs. The refer ence range was not u sed to interpret th is result as normal/abnormal . NRBC x10^3 (test code <0.01 See_Comment [Auto mated = 7612848554) message] The s ystem which generated this result transmitted reference range : 10*3/?L. The reference range was not used to interpret this result as normal/abnormal . GRAN MAT (NEUT) % 63.0 % (test code = 770-8) IMM GRAN % (test code 0.10 % = 7635148492) LYMPH % (test code = 21.2 % 736-9) MONO % (test code = 8.0 % 5905-5) EOS % (test code = 7.1 % 713-8) BASO % (test code = 0.6 % 706-2) GRAN MAT x10^3(ANC) 6.08 10*3/uL 1.88-7.09 (test code = 1606599023) IMM GRAN x10^3 (test <0.03 0.00-0.06 code = 2695099067) LYMPH x10^3 (test code 2.04 10*3/uL 1.32-3.29 = 731-0) MONO x10^3 (test code 0.77 10*3/uL 0.33-0.92 = 742-7) EOS x10^3 (test code = 0.68 10*3/uL 0.03-0.39 H 711-2) BASO x10^3 (test code 0.06 10*3/uL 0.01-0.07 = 704-7) Lab Interpretation Abnormal (test code = 68631-5) [facility] FDLVTBI6198-06-23 19:32:00 Test Item Value Reference Range Interpretation Comments Troponin-I (test code 0.22 See_Comment [Auto mated message] The = Troponin-I) system which g enerated this result transmit theodore reference range : <=0.40. The reference r kendell was not used to interpr et this result as david l/abnormal. [facility] ENDNCRK6691-43-04 19:32:00 Test Item Value Reference Range Interpretation Comments Troponin-I (test code 0.22 See_Comment [Auto mated message] The = Troponin-I) system which g enerated this result transmit theodore reference range : <=0.40. The reference r kendell was not used to interpr et this result as david l/abnormal. [facility] ParkWhiz2020-11-19 17:06:00 Test Item Value Reference Range Interpretation Comments Troponin-I (test code 0.28 See_Comment [Auto mated message] The = Troponin-I) system which g enerated this result transmit theodore reference range : <=0.40. The reference r kendell was not used to interpr et this result as david l/abnormal. [facility] Hybrent2020-11-19 17:06:00 Test Item Value Reference Range Interpretation Comments Lactic Acid Lvl (test code = Lactic 1.5 0.5-2.2 Acid Lvl) [facility]2020-11-19 17:06:00 Test Item Value Reference Range Interpretation Comments Troponin-I (test code 0.28 See_Comment [Auto mated message] The = Troponin-I) system which g enerated this result transmit theodore reference range : <=0.40. The reference r kendell was not used to interpr et this result as david l/abnormal. [facility]2020-11-19 17:06:00 Test Item Value Reference Range Interpretation Comments Lactic Acid Lvl (test code = Lactic 1.5 0.5-2.2 Acid Lvl) [facility] [place]2020-11-19 10:27:00 Test Item Value Reference Range Interpretation Comments Troponin-I (test code 0.42 See_Comment [Auto mated message] The = Troponin-I) system which g enerated this result transmit theodore reference range : <=0.40. The reference r kendell was not used to interpr et this result as david l/abnormal. [facility]2020-11-19 10:27:00 Test Item Value Reference Range Interpretation Comments Total Protein (test code = Total 6.6 6.4-8.4 Protein) [facility]2020-11-19 10:27:00 Test Item Value Reference Range Interpretation Comments Albumin Lvl (test code = Albumin Lvl) 3.7 3.5-5.0 [facility]2020-11-19 10:27:00 Test Item Value Reference Range Interpretation Comments ALT (test code = ALT) 43 See_Comment [Auto mated message] The system which ge nerated this result transmit theodore reference range : <=65. The reference range was not used to interpr et this result as david l/abnormal. [facility] [id number] 10:27:00 Test Item Value Reference Range Interpretation Comments AST (test code = AST) 30 See_Comment [Auto mated message] The system which ge nerated this result transmit theodore reference range : <=37. The reference range was not used to interpr et this result as david l/abnormal. [facility] [id number] 10:27:00 Test Item Value Reference Range Interpretation Comments Alk Phos (test code = Alk Phos) 102 39-136 [facility] [id number] 10:27:00 Test Item Value Reference Range Interpretation Comments Bili Total (test code = Bili Total) 1.1 0.2-1.3 [facility] [id number] 10:27:00 Test Item Value Reference Range Interpretation Comments Bili Direct (test code 0.2 See_Comment [Aut omated message] The = Bili Direct) system which generated this result tra nsmitted reference range : <=0.3. The reference r kendell was not used to int erpret this result as david l/abnormal. [facility] [id number] 10:27:00 Test Item Value Reference Range Interpretation Comments Bili Indirect (test 0.9 See_Comment [Automa theodore message] The code = Bili Indirect) system which generated this result tra nsmitted reference range : <=1.0. The reference r kendell was not used to int erpret this result as normal/abnormal . [facility] [id number] 10:27:00 Test Item Value Reference Range Interpretation Comments Globulin (test code = Globulin) 2.9 2.7-4.2 [facility] [id number] 10:27:00 Test Item Value Reference Range Interpretation Comments A/G Ratio (test code = A/G Ratio) 1.3 1 0.7-1.6 [facility] AmericaRyhjxakPJNSSDBUZR8348-38-71 10:27:00 Test Item Value Reference Range Interpretation Comments PTT (test code = PTT) 29.9 s 22.9-35.8 [facility]IneedtiHPQWPZANGK6282-22-14 10:27:00 Test Item Value Reference Range Interpretation Comments PT (test code = PT) 13.0 s 12.0-14.7 [facility] TexasKrlmofuKEEZRUGHTE8812-05-74 10:27:00 Test Item Value Reference Range Interpretation Comments INR (test code = INR) 0.98 1 0.85-1.17 [facility] AmericaCyzkjlyPDPQYKHZYK6108-44-24 10:27:00 Test Item Value Reference Range Interpretation Comments Treponemal Ab (test code Non-Reactive = Treponemal Ab) *NA*(09/27/20 4:27 AM) [facility] TexasKahotfsQSHOWO8784-35-52 10:27:00 Test Item Value Reference Range Interpretation Comments LDL (Calculated) (test code = LDL 88 (Calculated)) [facility] TexasWbabfwwVUNNUE4527-91-47 10:27:00 Test Item Value Reference Range Interpretation Comments Trig (test code = Trig) 90 [facility] TexasCsyrozdTMYIPS7059-70-42 10:27:00 Test Item Value Reference Range Interpretation Comments Chol (test code = Chol) 171 [facility] TexasCkrqsipRIXNIQ3475-28-62 10:27:00 Test Item Value Reference Range Interpretation Comments HDL (test code = HDL) 65 [facility] AmericaAsrtoroBSCGMX0971-84-22 10:27:00 Test Item Value Reference Range Interpretation Comments CHD Risk (test code = CHD Risk) 2.63 1 3.90-5.80 [facility] TexasDlojdxiPHFYRR1995-90-30 10:27:00 Test Item Value Reference Range Interpretation Comments VLDL (test code = VLDL) 18 1 [facility] TexasSPECIAL [id number] 10:27:00 Test Item Value Reference Range Interpretation Comments Hgb A1C (test code = Hgb A1C) 5.5 [facility] TexasCARDIAC [id number] 10:27:00 Test Item Value Reference Range Interpretation Comments Troponin-I (test code 0.42 See_Comment [Auto mated message] The = Troponin-I) system which g enerated this result transmit theodore reference range : <=0.40. The reference r kendell was not used to interpr et this result as david l/abnormal. [facility] TexasCHEM KKBTL2796-06-08 10:27:00 Test Item Value Reference Range Interpretation Comments Total Protein (test code = Total 6.6 6.4-8.4 Protein) [place] [address]-11-19 10:27:00 Test Item Value Reference Range Interpretation Comments Albumin Lvl (test code = Albumin Lvl) 3.7 3.5-5.0 [place] [address]-11-19 10:27:00 Test Item Value Reference Range Interpretation Comments ALT (test code = ALT) 43 See_Comment [Auto mated message] The system which ge nerated this result transmit theodore reference range : <=65. The reference range was not used to interpr et this result as david l/abnormal. [facility] TexasRankingHero [id number] 10:27:00 Test Item Value Reference Range Interpretation Comments AST (test code = AST) 30 See_Comment [Auto mated message] The system which ge nerated this result transmit theodore reference range : <=37. The reference range was not used to interpr et this result as david l/abnormal. [facility]Rank[facility] LEKXJ1628-47-16 10:27:00 Test Item Value Reference Range Interpretation Comments Alk Phos (test code = Alk Phos) 102 39-136 [facility] [id number] 10:27:00 Test Item Value Reference Range Interpretation Comments Bili Total (test code = Bili Total) 1.1 0.2-1.3 [facility]RankingH[facility] [id number] 10:27:00 Test Item Value Reference Range Interpretation Comments Bili Direct (test code 0.2 See_Comment [Aut omated message] The = Bili Direct) system which generated this result tra nsmitted reference range : <=0.3. The reference r kendell was not used to int erpret this result as david l/abnormal. [facility] [id number] 10:27:00 Test Item Value Reference Range Interpretation Comments Bili Indirect (test 0.9 See_Comment [Automa theodore message] The code = Bili Indirect) system which generated this result tra nsmitted reference range : <=1.0. The reference r kendell was not used to int erpret this result as normal/abnormal . [facility]RankingH[facility] [id number] 10:27:00 Test Item Value Reference Range Interpretation Comments Globulin (test code = Globulin) 2.9 2.7-4.2 [facility] [id number] 10:27:00 Test Item Value Reference Range Interpretation Comments A/G Ratio (test code = A/G Ratio) 1.3 1 0.7-1.6 [facility] AmericaNcohszdRKFWDNMJVP4430-09-73 10:27:00 Test Item Value Reference Range Interpretation Comments PTT (test code = PTT) 29.9 s 22.9-35.8 [facility] AmericaQeghndfIVGPGWOLMM4375-93-14 10:27:00 Test Item Value Reference Range Interpretation Comments PT (test code = PT) 13.0 s 12.0-14.7 [facility] AmericaYbxztfnUGJBPHSCMP8587-01-11 10:27:00 Test Item Value Reference Range Interpretation Comments INR (test code = INR) 0.98 1 0.85-1.17 [facility] AmericaNfeuzdrLFXUERLUTX0460-17-51 10:27:00 Test Item Value Reference Range Interpretation Comments Treponemal Ab (test code Non-Reactive = Treponemal Ab) *NA*(09/27/20 4:27 AM) [facility] AmericaThcndypAMKOYH6940-88-28 10:27:00 Test Item Value Reference Range Interpretation Comments LDL (Calculated) (test code = LDL 88 (Calculated)) [facility] AmericaGnrxnwuSBQDCM6057-59-23 10:27:00 Test Item Value Reference Range Interpretation Comments Trig (test code = Trig) 90 [facility] AmericaKlohtfwAIGLKL2808-49-26 10:27:00 Test Item Value Reference Range Interpretation Comments Chol (test code = Chol) 171 [facility] AmericaIhitjqeGRGIHP7148-71-83 10:27:00 Test Item Value Reference Range Interpretation Comments HDL (test code = HDL) 65 [facility] AmericaLxnnsbpPRAUEW1823-05-14 10:27:00 Test Item Value Reference Range Interpretation Comments CHD Risk (test code = CHD Risk) 2.63 1 3.90-5.80 [facility] AmericaQrarfpdOIYPZF3486-71-05 10:27:00 Test Item Value Reference Range Interpretation Comments VLDL (test code = VLDL) 18 1 [facility] AmericaannSPECIAL [id number] 10:27:00 Test Item Value Reference Range Interpretation Comments Hgb A1C (test code = Hgb A1C) 5.5 [facility] AmericaannCARDIAC [id number] 04:37:00 Test Item Value Reference Range Interpretation Comments Troponin-I (test code 0.39 See_Comment [Auto mated message] The = Troponin-I) system which g enerated this result transmit theodore reference range : <=0.40. The reference r kendell was not used to interpr et this result as david l/abnormal. [facility] [id number] 04:37:00 Test Item Value Reference Range Interpretation Comments Troponin-I (test code 0.39 See_Comment [Auto mated message] The = Troponin-I) system which g enerated this result transmit theodore reference range : <=0.40. The reference r kendell was not used to interpr et this result as david l/abnormal. [facility] [id number] 03:02:00 Test Item Value Reference Range Interpretation Comments U Amph Scr (test code Negative *NA*(09/26/20 = U Amph Scr) 9:02 PM) [facility] [id number] 03:02:00 Test Item Value Reference Range Interpretation Comments U Parisa Scr (test code Negative *NA*(09/26/20 = U Parisa Scr) 9:02 PM) [facility] [id number] 03:02:00 Test Item Value Reference Range Interpretation Comments U Benzodiaz Scr (test Negative *NA*(09/26/20 code = U Benzodiaz Scr) 9:02 PM) [facility] [id number] 03:02:00 Test Item Value Reference Range Interpretation Comments U Cocaine Scr (test Negative *NA*(09/26/20 code = U Cocaine Scr) 9:02 PM) [facility] [id number] 03:02:00 Test Item Value Reference Range Interpretation Comments U Cannab Scr (test Negative *NA*(09/26/20 code = U Cannab Scr) 9:02 PM) [facility] [id number] 03:02:00 Test Item Value Reference Range Interpretation Comments U Opiate Scr (test Positive *ABN*(09/26/20 code = U Opiate Scr) 9:02 PM) [facility] [id number] 03:02:00 Test Item Value Reference Range Interpretation Comments U Phencyclidine Scr (test Negative code = U Phencyclidine *NA*(09/26/20 9:02 Scr) PM) [facility] [id number] 03:02:00 Test Item Value Reference Range Interpretation Comments UDS Note (test code = See Note (09/26/20 9:02 UDS Note) PM) [facility] [id number] 03:02:00 Test Item Value Reference Range Interpretation Comments UA Color (test code = Yellow *NA*(09/26/20 UA Color) 9:02 PM) [facility] [id number] 03:02:00 Test Item Value Reference Range Interpretation Comments UA Turbidity (test code = Clear (09/26/20 9:02 UA Turbidity) PM) [facility] [id number] 03:02:00 Test Item Value Reference Range Interpretation Comments UA Spec Grav (test code = UA Spec 1.013 1 Grav) [facility] [id number] 03:02:00 Test Item Value Reference Range Interpretation Comments UA pH (test code = UA pH) 7.0 1 5.0-8.0 [facility] [id number] 03:02:00 Test Item Value Reference Range Interpretation Comments UA Protein (test code = UA Protein) 100 mg/dL [facility] [id number] 03:02:00 Test Item Value Reference Range Interpretation Comments UA Glucose (test code = UA Negative mg/dL Glucose) [facility] [id number] 03:02:00 Test Item Value Reference Range Interpretation Comments UA Ketones (test code = UA Trace mg/dL Ketones) [facility] [id number] 03:02:00 Test Item Value Reference Range Interpretation Comments UA Bili (test code = Negative *NA*(09/26/20 UA Bili) 9:02 PM) [facility] [id number] 03:02:00 Test Item Value Reference Range Interpretation Comments UA Blood (test code = Negative (09/26/20 9:02 UA Blood) PM) [facility] [id number] 03:02:00 Test Item Value Reference Range Interpretation Comments UA Nitrite (test code Negative (09/26/20 9:02 = UA Nitrite) PM) [facility] [id number] 03:02:00 Test Item Value Reference Range Interpretation Comments UA Leuk Est (test Negative (09/26/20 9:02 code = UA Leuk Est) PM) [facility] [id number] 03:02:00 Test Item Value Reference Range Interpretation Comments UA WBC (test code = 2 See_Comment [Automa theodore message] The UA WBC) system which ge nerated this result transmit theodore reference range : <=5. The reference range was not used to interpr et this result as david l/abnormal. [facility] [id number] 03:02:00 Test Item Value Reference Range Interpretation Comments UA RBC (test code = 3 See_Comment [Automa theodore message] The UA RBC) system which ge nerated this result transmit theodore reference range : <=2. The reference range was not used to interpr et this result as david l/abnormal. [facility] [id number] 03:02:00 Test Item Value Reference Range Interpretation Comments UA Sq Epi (test code = UA Sq Epi) None Seen [facility] [id number] 03:02:00 Test Item Value Reference Range Interpretation Comments UA Urobilinogen (test code = UA <=1.0 mg/dL 0.1-1.0 Urobilinogen) [facility] [id number] 03:02:00 Test Item Value Reference Range Interpretation Comments U Amph Scr (test code Negative *NA*(09/26/20 = U Amph Scr) 9:02 PM) [facility] [id number] 03:02:00 Test Item Value Reference Range Interpretation Comments U Parisa Scr (test code Negative *NA*(09/26/20 = U Parisa Scr) 9:02 PM) [facility] [id number] 03:02:00 Test Item Value Reference Range Interpretation Comments U Benzodiaz Scr (test Negative *NA*(09/26/20 code = U Benzodiaz Scr) 9:02 PM) [facility] [id number] 03:02:00 Test Item Value Reference Range Interpretation Comments U Cocaine Scr (test Negative *NA*(09/26/20 code = U Cocaine Scr) 9:02 PM) [facility] [id number] 03:02:00 Test Item Value Reference Range Interpretation Comments U Cannab Scr (test Negative *NA*(09/26/20 code = U Cannab Scr) 9:02 PM) [facility] [id number] 03:02:00 Test Item Value Reference Range Interpretation Comments U Opiate Scr (test Positive *ABN*(09/26/20 code = U Opiate Scr) 9:02 PM) [facility] [id number] 03:02:00 Test Item Value Reference Range Interpretation Comments U Phencyclidine Scr (test Negative code = U Phencyclidine *NA*(09/26/20 9:02 Scr) PM) [facility] [id number] 03:02:00 Test Item Value Reference Range Interpretation Comments UDS Note (test code = See Note (09/26/20 9:02 UDS Note) PM) [facility] [id number] 03:02:00 Test Item Value Reference Range Interpretation Comments UA Color (test code = Yellow *NA*(09/26/20 UA Color) 9:02 PM) [facility] [id number] 03:02:00 Test Item Value Reference Range Interpretation Comments UA Turbidity (test code = Clear (09/26/20 9:02 UA Turbidity) PM) [facility] [id number] 03:02:00 Test Item Value Reference Range Interpretation Comments UA Spec Grav (test code = UA Spec 1.013 1 Grav) [facility] [id number] 03:02:00 Test Item Value Reference Range Interpretation Comments UA pH (test code = UA pH) 7.0 1 5.0-8.0 [facility] [id number] 03:02:00 Test Item Value Reference Range Interpretation Comments UA Protein (test code = UA Protein) 100 mg/dL [facility] [id number] 03:02:00 Test Item Value Reference Range Interpretation Comments UA Glucose (test code = UA Negative mg/dL Glucose) [facility] [id number] 03:02:00 Test Item Value Reference Range Interpretation Comments UA Ketones (test code = UA Trace mg/dL Ketones) [facility] [id number] 03:02:00 Test Item Value Reference Range Interpretation Comments UA Bili (test code = Negative *NA*(09/26/20 UA Bili) 9:02 PM) [facility] [id number] 03:02:00 Test Item Value Reference Range Interpretation Comments UA Blood (test code = Negative (09/26/20 9:02 UA Blood) PM) [facility] AND [id number] 03:02:00 Test Item Value Reference Range Interpretation Comments UA Nitrite (test code Negative (09/26/20 9:02 = UA Nitrite) PM) [facility] AND [id number] 03:02:00 Test Item Value Reference Range Interpretation Comments UA Leuk Est (test Negative (09/26/20 9:02 code = UA Leuk Est) PM) [facility] AND [id number] 03:02:00 Test Item Value Reference Range Interpretation Comments UA WBC (test code = 2 See_Comment [Automa theodore message] The UA WBC) system which ge nerated this result transmit theodore reference range : <=5. The reference range was not used to interpr et this result as david l/abnormal. [facility] AND [id number] 03:02:00 Test Item Value Reference Range Interpretation Comments UA RBC (test code = 3 See_Comment [Automa theodore message] The UA RBC) system which ge nerated this result transmit theodore reference range : <=2. The reference range was not used to interpr et this result as david l/abnormal. [facility] AND [id number] 03:02:00 Test Item Value Reference Range Interpretation Comments UA Sq Epi (test code = UA Sq Epi) None Seen [facility] AND [id number] 03:02:00 Test Item Value Reference Range Interpretation Comments UA Urobilinogen (test code = UA <=1.0 mg/dL 0.1-1.0 Urobilinogen) [id number] 01:47:00 Test Item Value Reference Range Interpretation Comments Coronavirus (COVID-19) Not Detected CHRIS (test code = (09/26/20 7:47 PM) Coronavirus (COVID-19) CHRIS) [id number] 01:47:00 Test Item Value Reference Range Interpretation Comments Coronavirus (COVID-19) Not Detected CHRIS (test code = (09/26/20 7:47 PM) Coronavirus (COVID-19) CHRIS) [facility] [id number] 01:01:00 Test Item Value Reference Range Interpretation Comments Total CK (test code = Total CK) 115 12-191 [facility] [id number] 01:01:00 Test Item Value Reference Range Interpretation Comments Troponin-I (test code 0.18 See_Comment [Auto mated message] The = Troponin-I) system which g enerated this result transmit theodore reference range : <=0.40. The reference r kendell was not used to interpr et this result as david l/abnormal. [facility] [id number] 01:01:00 Test Item Value Reference Range Interpretation Comments Glucose Lvl (test code = Glucose Lvl) 117 70-99 [facility] [id number] 01:01:00 Test Item Value Reference Range Interpretation Comments BUN (test code = BUN) 16 7-22 [facility] [id number] 01:01:00 Test Item Value Reference Range Interpretation Comments Creatinine Lvl (test code = Creatinine 1.01 0.50-1.40 Lvl) [facility] [id number] 01:01:00 Test Item Value Reference Range Interpretation Comments Sodium Lvl (test code = Sodium Lvl) 139 135-145 [facility] [id number] 01:01:00 Test Item Value Reference Range Interpretation Comments Potassium Lvl (test code = Potassium 3.7 3.5-5.1 Lvl) [facility] [id number] 01:01:00 Test Item Value Reference Range Interpretation Comments Chloride Lvl (test code = Chloride Lvl) 105 95-109 [facility] [id number] 01:01:00 Test Item Value Reference Range Interpretation Comments CO2 (test code = CO2) 24 24-32 [facility] [id number] 01:01:00 Test Item Value Reference Range Interpretation Comments Calcium Lvl (test code = Calcium Lvl) 9.6 8.5-10.5 [facility] [id number] 01:01:00 Test Item Value Reference Range Interpretation Comments Total Protein (test code = Total 7.9 6.4-8.4 Protein) [facility] [id number] 01:01:00 Test Item Value Reference Range Interpretation Comments Albumin Lvl (test code = Albumin Lvl) 4.1 3.5-5.0 [facility] [id number] 01:01:00 Test Item Value Reference Range Interpretation Comments ALT (test code = ALT) 50 See_Comment [Auto mated message] The system which ge nerated this result transmit theoodre reference range : <=65. The reference range was not used to interpr et this result as david l/abnormal. [facility] [id number] 01:01:00 Test Item Value Reference Range Interpretation Comments AST (test code = AST) 41 See_Comment [Auto mated message] The system which ge nerated this result transmit theodore reference range : <=37. The reference range was not used to interpr et this result as david l/abnormal. [facility] [id number] 01:01:00 Test Item Value Reference Range Interpretation Comments Alk Phos (test code = Alk Phos) 120 39-136 [facility] [id number] 01:01:00 Test Item Value Reference Range Interpretation Comments Bili Total (test code = Bili Total) 1.0 0.2-1.3 [facility] [id number] 01:01:00 Test Item Value Reference Range Interpretation Comments AGAP (test code = AGAP) 13.7 10.0-20.0 [facility] [id number] 01:01:00 Test Item Value Reference Range Interpretation Comments B/C Ratio (test code = B/C Ratio) 16 1 6-25 [facility] [id number] 01:01:00 Test Item Value Reference Range Interpretation Comments Globulin (test code = Globulin) 3.8 2.7-4.2 [facility] [id number] 01:01:00 Test Item Value Reference Range Interpretation Comments A/G Ratio (test code = A/G Ratio) 1.1 1 0.7-1.6 [facility] [id number] 01:01:00 Test Item Value Reference Range Interpretation Comments eGFR (test code = eGFR) 62 [facility] [id number] 01:01:00 Test Item Value Reference Range Interpretation Comments Phosphorus (test code = Phosphorus) 3.1 2.5-4.5 [facility] [id number] 01:01:00 Test Item Value Reference Range Interpretation Comments Magnesium Lvl (test code = Magnesium 2.1 1.8-2.4 Lvl) [facility]2020-11-19 01:01:00 Test Item Value Reference Range Interpretation Comments Lactic Acid Lvl (test code = Lactic 2.3 0.5-2.2 Acid Lvl) [id number] 01:01:00 Test Item Value Reference Range Interpretation Comments WBC (test code = WBC) 8.9 3.7-10.4 [facility] C[id number] 01:01:00 Test Item Value Reference Range Interpretation Comments RBC (test code = RBC) 4.59 4.20-5.40 [facility] CampusYfoqzmyOLKWXZQEQY5063-35-72 01:01:00 Test Item Value Reference Range Interpretation Comments Hgb (test code = Hgb) 15.1 12.0-16.0 [facility] CampusTliumefOJPJAXVGWF8087-65-32 01:01:00 Test Item Value Reference Range Interpretation Comments Hct (test code = Hct) 43.4 36.0-48.0 [facility] CampusMixftbkNLSNXPLEEW2636-61-13 01:01:00 Test Item Value Reference Range Interpretation Comments MCV (test code = MCV) 94.6 80.0-98.0 [facility] CampusRwyhhysDOMQLZFUFX9988-78-44 01:01:00 Test Item Value Reference Range Interpretation Comments MCH (test code = MCH) 33.0 pg 27.0-31.0 [facility] CampusQzsmureQLMQCOPJFJ7139-04-89 01:01:00 Test Item Value Reference Range Interpretation Comments MCHC (test code = MCHC) 34.9 32.0-36.0 [facility] CampusHfhhxgwTZNPDFVXER2730-35-85 01:01:00 Test Item Value Reference Range Interpretation Comments RDW (test code = RDW) 12.4 11.5-14.5 [facility] CampusOxdilmfVZHKBBIHTE7062-52-17 01:01:00 Test Item Value Reference Range Interpretation Comments Platelet (test code = Platelet) 270 133-450 [facility] CampusFpoxbufGQNMVQSAFL7585-00-02 01:01:00 Test Item Value Reference Range Interpretation Comments MPV (test code = MPV) 7.9 7.4-10.4 [facility] CampusNugrkpyYBEWOWOBYF7227-40-00 01:01:00 Test Item Value Reference Range Interpretation Comments Segs (test code = Segs) 79.9 45.0-75.0 [facility]yeRJADTUNVYD9190-34-40 01:01:00 Test Item Value Reference Range Interpretation Comments Lymphocytes (test code = Lymphocytes) 13.9 20.0-40.0 [facility]PdooqdwEXWOZEVXER0488-98-88 01:01:00 Test Item Value Reference Range Interpretation Comments Monocytes (test code = Monocytes) 5.5 2.0-12.0 [facility] HospitalNsxblprSEJAQNKNSI3603-00-03 01:01:00 Test Item Value Reference Range Interpretation Comments Basophils (test code = 0.7 See_Comment [Aut omated message] The Basophils) system which ge nerated this result tra nsmitted reference range : <=1.0. The reference r kendell was not used to int erpret this result as normal/abnormal . [facility] C[id number] 01:01:00 Test Item Value Reference Range Interpretation Comments Neutrophils # (test code = Neutrophils 7.1 1.5-8.1 #) [facility] CampusKnjvxurTJFGVEJLKE7151-21-95 01:01:00 Test Item Value Reference Range Interpretation Comments Lymphocytes # (test code = Lymphocytes 1.2 1.0-5.5 #) [facility] CampusJhvrkcvEOZSKYXNPA1098-44-98 01:01:00 Test Item Value Reference Range Interpretation Comments Monocytes # (test code 0.5 See_Comment [Aut omated message] The = Monocytes #) system which generated this result tra nsmitted reference range : <=0.8. The reference r kendell was not used to int erpret this result as normal/abnormal . [facility] HospitalKypbnmiEXRDUGIMHN9038-31-06 01:01:00 Test Item Value Reference Range Interpretation Comments Basophils # (test code 0.1 See_Comment [Aut omated message] The = Basophils #) system which generated this result tra nsmitted reference range : <=0.2. The reference r kendell was not used to int erpret this result as normal/abnormal . [facility] TexasEyelationAC [id number] 01:01:00 Test Item Value Reference Range Interpretation Comments Total CK (test code = Total CK) 115 12-191 [facility] [id number] 01:01:00 Test Item Value Reference Range Interpretation Comments Troponin-I (test code 0.18 See_Comment [Auto mated message] The = Troponin-I) system which g enerated this result transmit theodore reference range : <=0.40. The reference r kendell was not used to interpr et this result as david l/abnormal. [facility]2020-11-19 01:01:00 Test Item Value Reference Range Interpretation Comments Glucose Lvl (test code = Glucose Lvl) 117 70-99 [facility]2020-11-19 01:01:00 Test Item Value Reference Range Interpretation Comments BUN (test code = BUN) 16 7-22 [place] [id number] 01:01:00 Test Item Value Reference Range Interpretation Comments Creatinine Lvl (test code = Creatinine 1.01 0.50-1.40 Lvl) [facility]2020-11-19 01:01:00 Test Item Value Reference Range Interpretation Comments Sodium Lvl (test code = Sodium Lvl) 139 135-145 [place] [id number] 01:01:00 Test Item Value Reference Range Interpretation Comments Potassium Lvl (test code = Potassium 3.7 3.5-5.1 Lvl) [facility]2020-11-19 01:01:00 Test Item Value Reference Range Interpretation Comments Chloride Lvl (test code = Chloride Lvl) 105 95-109 [place] [id number] 01:01:00 Test Item Value Reference Range Interpretation Comments CO2 (test code = CO2) 24 24-32 [place] [id number] 01:01:00 Test Item Value Reference Range Interpretation Comments Calcium Lvl (test code = Calcium Lvl) 9.6 8.5-10.5 [place] [id number] 01:01:00 Test Item Value Reference Range Interpretation Comments Total Protein (test code = Total 7.9 6.4-8.4 Protein) [facility]2020-11-19 01:01:00 Test Item Value Reference Range Interpretation Comments Albumin Lvl (test code = Albumin Lvl) 4.1 3.5-5.0 [facility]2020-11-19 01:01:00 Test Item Value Reference Range Interpretation Comments ALT (test code = ALT) 50 See_Comment [Auto mated message] The system which ge nerated this result transmit theodore reference range : <=65. The reference range was not used to interpr et this result as david l/abnormal. [facility] [id number] 01:01:00 Test Item Value Reference Range Interpretation Comments AST (test code = AST) 41 See_Comment [Auto mated message] The system which ge nerated this result transmit theodore reference range : <=37. The reference range was not used to interpr et this result as david l/abnormal. [facility] [id number] 01:01:00 Test Item Value Reference Range Interpretation Comments Alk Phos (test code = Alk Phos) 120 39-136 [facility] [id number] 01:01:00 Test Item Value Reference Range Interpretation Comments Bili Total (test code = Bili Total) 1.0 0.2-1.3 [facility] [id number] 01:01:00 Test Item Value Reference Range Interpretation Comments AGAP (test code = AGAP) 13.7 10.0-20.0 [facility] [id number] 01:01:00 Test Item Value Reference Range Interpretation Comments B/C Ratio (test code = B/C Ratio) 16 1 6-25 [facility] [id number] 01:01:00 Test Item Value Reference Range Interpretation Comments Globulin (test code = Globulin) 3.8 2.7-4.2 [facility] [id number] 01:01:00 Test Item Value Reference Range Interpretation Comments A/G Ratio (test code = A/G Ratio) 1.1 1 0.7-1.6 [facility] [id number] 01:01:00 Test Item Value Reference Range Interpretation Comments eGFR (test code = eGFR) 62 [facility] [id number] 01:01:00 Test Item Value Reference Range Interpretation Comments Phosphorus (test code = Phosphorus) 3.1 2.5-4.5 [facility] [id number] 01:01:00 Test Item Value Reference Range Interpretation Comments Magnesium Lvl (test code = Magnesium 2.1 1.8-2.4 Lvl) [facility] [id number] 01:01:00 Test Item Value Reference Range Interpretation Comments Lactic Acid Lvl (test code = Lactic 2.3 0.5-2.2 Acid Lvl) [facility] CampusIvoyianLNWIGCINCZ7045-32-24 01:01:00 Test Item Value Reference Range Interpretation Comments WBC (test code = WBC) 8.9 3.7-10.4 [facility] CampusWdfmqktBPZJUAKHSQ7998-84-01 01:01:00 Test Item Value Reference Range Interpretation Comments RBC (test code = RBC) 4.59 4.20-5.40 [facility] CampusLrwjdkbEOMLGSHVDR1456-71-83 01:01:00 Test Item Value Reference Range Interpretation Comments Hgb (test code = Hgb) 15.1 12.0-16.0 [facility] CampusVzgtqnlOQOQLOMXVB6729-48-38 01:01:00 Test Item Value Reference Range Interpretation Comments Hct (test code = Hct) 43.4 36.0-48.0 [facility] CampusTyiszhxJKVYSXOOIM5075-16-51 01:01:00 Test Item Value Reference Range Interpretation Comments MCV (test code = MCV) 94.6 80.0-98.0 [facility] CampusRdatbarBKRSYHALPC0262-21-51 01:01:00 Test Item Value Reference Range Interpretation Comments MCH (test code = MCH) 33.0 pg 27.0-31.0 [facility] CampusZhfmzajTZMJDUEMZV1152-68-77 01:01:00 Test Item Value Reference Range Interpretation Comments MCHC (test code = MCHC) 34.9 32.0-36.0 [facility] CampusMozbbjwWUKHDPLWCL5234-46-43 01:01:00 Test Item Value Reference Range Interpretation Comments RDW (test code = RDW) 12.4 11.5-14.5 [facility] CampusLvgubtwODLXXVPEBS9174-68-88 01:01:00 Test Item Value Reference Range Interpretation Comments Platelet (test code = Platelet) 270 133-450 [facility] CampusLtlxhlsZHGAILVWDB1630-45-05 01:01:00 Test Item Value Reference Range Interpretation Comments MPV (test code = MPV) 7.9 7.4-10.4 [facility] CampusWpdecjhCHPIGKWUOV4012-81-76 01:01:00 Test Item Value Reference Range Interpretation Comments Segs (test code = Segs) 79.9 45.0-75.0 [facility] CampusEygughwNTBLVBKVXK3939-96-32 01:01:00 Test Item Value Reference Range Interpretation Comments Lymphocytes (test code = Lymphocytes) 13.9 20.0-40.0 [facility] CampusYaqghtyLKUCCGTJZB0679-49-39 01:01:00 Test Item Value Reference Range Interpretation Comments Monocytes (test code = Monocytes) 5.5 2.0-12.0 [facility] CampusJoastaxTCWNXCPYRT9020-24-45 01:01:00 Test Item Value Reference Range Interpretation Comments Basophils (test code = 0.7 See_Comment [Aut omated message] The Basophils) system which ge nerated this result tra nsmitted reference range : <=1.0. The reference r kendell was not used to int erpret this result as normal/abnormal . [facility] CampusOxmypxkIRJESTGIFU1453-02-95 01:01:00 Test Item Value Reference Range Interpretation Comments Neutrophils # (test code = Neutrophils 7.1 1.5-8.1 #) [facility] CampusReoeqegCSCKWYEBFH6642-38-31 01:01:00 Test Item Value Reference Range Interpretation Comments Lymphocytes # (test code = Lymphocytes 1.2 1.0-5.5 #) [facility] CampusCjwwcejTIEWDQPZMJ9836-84-14 01:01:00 Test Item Value Reference Range Interpretation Comments Monocytes # (test code 0.5 See_Comment [Aut omated message] The = Monocytes #) system which generated this result tra nsmitted reference range : <=0.8. The reference r kendell was not used to int erpret this result as normal/abnormal . [facility] CampusPowhsarPKCJGUMLPG9990-14-25 01:01:00 Test Item Value Reference Range Interpretation Comments Basophils # (test code 0.1 See_Comment [Aut omated message] The = Basophils #) system which generated this result tra nsmitted reference range : <=0.2. The reference r kendell was not used to int erpret this result as normal/abnormal . [facility]UNT[facility] [id number] 19:43:51 Test Item Value Reference Range Interpretation Comments Consent To Contact For Voluntary Yes Research (test code = 4947) [facility]2020-06-17 04:43:00 Test Item Value Reference Range Interpretation Comments UA Glucose (test code = UA Negative mg/dL Glucose) [facility]2020-06-17 04:43:00 Test Item Value Reference Range Interpretation Comments UA Ketones (test code = UA Negative mg/dL Ketones) [facility]2020-06-17 04:43:00 Test Item Value Reference Range Interpretation Comments UA Bili (test code = Negative *NA*(04/24/20 UA Bili) 11:43 PM) [facility] [id number] 04:43:00 Test Item Value Reference Range Interpretation Comments UA Blood (test code = Negative (04/24/20 11:43 UA Blood) PM) [facility] [id number] 04:43:00 Test Item Value Reference Range Interpretation Comments UA Nitrite (test code Negative (04/24/20 11:43 = UA Nitrite) PM) [facility] [id number] 04:43:00 Test Item Value Reference Range Interpretation Comments UA Leuk Est (test Negative (04/24/20 11:43 code = UA Leuk Est) PM) [facility] [id number] 04:43:00 Test Item Value Reference Range Interpretation Comments UA WBC (test code = 2 See_Comment [Automa theodore message] The UA WBC) system which ge nerated this result transmit theodore reference range : <=5. The reference range was not used to interpr et this result as david l/abnormal. [facility] [id number] 04:43:00 Test Item Value Reference Range Interpretation Comments UA RBC (test code = 1 See_Comment [Automa theodore message] The UA RBC) system which ge nerated this result transmit theodore reference range : <=2. The reference range was not used to interpr et this result as david l/abnormal. [facility] [id number] 04:43:00 Test Item Value Reference Range Interpretation Comments UA Bacteria (test code = UA Occasional /HPF Bacteria) [facility] [id number] 04:43:00 Test Item Value Reference Range Interpretation Comments UA Mucus (test code = UA Mucus) Few /LPF [facility] [id number] 04:43:00 Test Item Value Reference Range Interpretation Comments UA Sq Epi (test code = UA Sq Epi) None [facility]en [facility] [id number] 04:43:00 Test Item Value Reference Range Interpretation Comments UA Urobilinogen (test code = UA <=1.0 mg/dL 0.1-1.0 Urobilinogen) [facility] [id number] 04:43:00 Test Item Value Reference Range Interpretation Comments U Amph Scr (test code Positive *ABN*(04/24/20 = U Amph Scr) 11:43 PM) [facility] [id number] 04:43:00 Test Item Value Reference Range Interpretation Comments U Parisa Scr (test code Negative *NA*(04/24/20 = U Parisa Scr) 11:43 PM) [facility] [id number] 04:43:00 Test Item Value Reference Range Interpretation Comments U Benzodiaz Scr (test Negative *NA*(04/24/20 code = U Benzodiaz Scr) 11:43 PM) [facility] [id number] 04:43:00 Test Item Value Reference Range Interpretation Comments U Cocaine Scr (test Negative *NA*(04/24/20 code = U Cocaine Scr) 11:43 PM) [facility] [id number] 04:43:00 Test Item Value Reference Range Interpretation Comments U Cannab Scr (test Negative *NA*(04/24/20 code = U Cannab Scr) 11:43 PM) [facility] [id number] 04:43:00 Test Item Value Reference Range Interpretation Comments U Opiate Scr (test Positive *ABN*(04/24/20 code = U Opiate Scr) 11:43 PM) [facility] [id number] 04:43:00 Test Item Value Reference Range Interpretation Comments U Phencyclidine Scr (test Negative code = U Phencyclidine *NA*(04/24/20 11:43 Scr) PM) [facility] [id number] 04:43:00 Test Item Value Reference Range Interpretation Comments UDS Note (test code = See Note (04/24/20 11:43 UDS Note) PM) [facility] [id number] 04:43:00 Test Item Value Reference Range Interpretation Comments UA Color (test code = Yellow *NA*(04/24/20 UA Color) 11:43 PM) [facility] [id number] 04:43:00 Test Item Value Reference Range Interpretation Comments UA Turbidity (test code = Clear (04/24/20 11:43 UA Turbidity) PM) [facility] [id number] 04:43:00 Test Item Value Reference Range Interpretation Comments UA Spec Grav (test code = UA Spec 1.012 1 Grav) [facility] AND [id number] 04:43:00 Test Item Value Reference Range Interpretation Comments UA pH (test code = UA pH) 5.0 1 5.0-8.0 [facility] AND [id number] 04:43:00 Test Item Value Reference Range Interpretation Comments UA Protein (test code = UA Negative mg/dL Protein) [facility] [id number] 04:43:00 Test Item Value Reference Range Interpretation Comments UA Glucose (test code = UA Negative mg/dL Glucose) [facility] AND [id number] 04:43:00 Test Item Value Reference Range Interpretation Comments UA Ketones (test code = UA Negative mg/dL Ketones) [facility] AND [id number] 04:43:00 Test Item Value Reference Range Interpretation Comments UA Bili (test code = Negative *NA*(04/24/20 UA Bili) 11:43 PM) [facility] AND [id number] 04:43:00 Test Item Value Reference Range Interpretation Comments UA Blood (test code = Negative (04/24/20 11:43 UA Blood) PM) [facility] AND [id number] 04:43:00 Test Item Value Reference Range Interpretation Comments UA Nitrite (test code Negative (04/24/20 11:43 = UA Nitrite) PM) [facility] AND [id number] 04:43:00 Test Item Value Reference Range Interpretation Comments UA Leuk Est (test Negative (04/24/20 11:43 code = UA Leuk Est) PM) [facility] AND [id number] 04:43:00 Test Item Value Reference Range Interpretation Comments UA WBC (test code = 2 See_Comment [Automa theodore message] The UA WBC) system which ge nerated this result transmit theodore reference range : <=5. The reference range was not used to interpr et this result as david l/abnormal. [facility] AND [id number] 04:43:00 Test Item Value Reference Range Interpretation Comments UA RBC (test code = 1 See_Comment [Automa theodore message] The UA RBC) system which ge nerated this result transmit theodore reference range : <=2. The reference range was not used to interpr et this result as david l/abnormal. [facility] [id number] 04:43:00 Test Item Value Reference Range Interpretation Comments UA Bacteria (test code = UA Occasional /HPF Bacteria) [facility] [id number] 04:43:00 Test Item Value Reference Range Interpretation Comments UA Mucus (test code = UA Mucus) Few /LPF [facility] [id number] 04:43:00 Test Item Value Reference Range Interpretation Comments UA Sq Epi (test code = UA Sq Epi) None Seen [facility] [id number] 04:43:00 Test Item Value Reference Range Interpretation Comments UA Urobilinogen (test code = UA <=1.0 mg/dL 0.1-1.0 Urobilinogen) [facility] [id number] 04:43:00 Test Item Value Reference Range Interpretation Comments U Amph Scr (test code Positive *ABN*(04/24/20 = U Amph Scr) 11:43 PM) [facility] [id number] 04:43:00 Test Item Value Reference Range Interpretation Comments U Parisa Scr (test code Negative *NA*(04/24/20 = U Parisa Scr) 11:43 PM) [facility] [id number] 04:43:00 Test Item Value Reference Range Interpretation Comments U Benzodiaz Scr (test Negative *NA*(04/24/20 code = U Benzodiaz Scr) 11:43 PM) [facility] [id number] 04:43:00 Test Item Value Reference Range Interpretation Comments U Cocaine Scr (test Negative *NA*(04/24/20 code = U Cocaine Scr) 11:43 PM) [facility] [id number] 04:43:00 Test Item Value Reference Range Interpretation Comments U Cannab Scr (test Negative *NA*(04/24/20 code = U Cannab Scr) 11:43 PM) [facility] [id number] 04:43:00 Test Item Value Reference Range Interpretation Comments U Opiate Scr (test Positive *ABN*(04/24/20 code = U Opiate Scr) 11:43 PM) [facility] [id number] 04:43:00 Test Item Value Reference Range Interpretation Comments U Phencyclidine Scr (test Negative code = U Phencyclidine *NA*(04/24/20 11:43 Scr) PM) [facility] [id number] 04:43:00 Test Item Value Reference Range Interpretation Comments UDS Note (test code = See Note (04/24/20 11:43 UDS Note) PM) [facility] [id number] 04:43:00 Test Item Value Reference Range Interpretation Comments UA Color (test code = Yellow *NA*(04/24/20 UA Color) 11:43 PM) [facility] [id number] 04:43:00 Test Item Value Reference Range Interpretation Comments UA Turbidity (test code = Clear (04/24/20 11:43 UA Turbidity) PM) [facility] [id number] 04:43:00 Test Item Value Reference Range Interpretation Comments UA Spec Grav (test code = UA Spec 1.012 1 Grav) [facility] [id number] 04:43:00 Test Item Value Reference Range Interpretation Comments UA pH (test code = UA pH) 5.0 1 5.0-8.0 [facility] [id number] 04:43:00 Test Item Value Reference Range Interpretation Comments UA Protein (test code = UA Negative mg/dL Protein) [facility] [id number] 04:12:00 Test Item Value Reference Range Interpretation Comments Total CK (test code = Total CK) 102 12-191 [facility] [id number] 04:12:00 Test Item Value Reference Range Interpretation Comments Troponin-I (test code no gt See_Comment [Auto mated message] The = Troponin-I) system which g enerated this result transmit theodore reference range : <=0.40. The reference r kendell was not used to interpr et this result as david l/abnormal. [facility] [id number] 04:12:00 Test Item Value Reference Range Interpretation Comments Glucose Lvl (test code = Glucose Lvl) 111 70-99 [facility] [id number] 04:12:00 Test Item Value Reference Range Interpretation Comments BUN (test code = BUN) 45 7-22 [place] [address]-06-17 04:12:00 Test Item Value Reference Range Interpretation Comments Creatinine Lvl (test code = Creatinine 1.99 0.50-1.40 Lvl) [place] [address]-06-17 04:12:00 Test Item Value Reference Range Interpretation Comments Sodium Lvl (test code = Sodium Lvl) 136 135-145 [place] 698480-06-17 04:12:00 Test Item Value Reference Range Interpretation Comments Potassium Lvl (test code = Potassium 4.7 3.5-5.1 Lvl) [place] [address]-06-17 04:12:00 Test Item Value Reference Range Interpretation Comments Chloride Lvl (test code = Chloride Lvl) 101 95-109 [place] [address]-06-17 04:12:00 Test Item Value Reference Range Interpretation Comments CO2 (test code = CO2) 29 24-32 [place] [address]-06-17 04:12:00 Test Item Value Reference Range Interpretation Comments Calcium Lvl (test code = Calcium Lvl) 9.0 8.5-10.5 [place] [address]-06-17 04:12:00 Test Item Value Reference Range Interpretation Comments Total Protein (test code = Total 6.7 6.4-8.4 Protein) [place] [address]-06-17 04:12:00 Test Item Value Reference Range Interpretation Comments Albumin Lvl (test code = Albumin Lvl) 3.8 3.5-5.0 [place] [address]-06-17 04:12:00 Test Item Value Reference Range Interpretation Comments ALT (test code = ALT) 22 See_Comment [Auto mated message] The system which ge nerated this result transmit theodore reference range : <=65. The reference range was not used to interpr et this result as david l/abnormal. [place] [address]-06-17 04:12:00 Test Item Value Reference Range Interpretation Comments AST (test code = AST) 19 See_Comment [Auto mated message] The system which ge nerated this result transmit theodore reference range : <=37. The reference range was not used to interpr et this result as david l/abnormal. [facility]Ranking[facility] [id number] 04:12:00 Test Item Value Reference Range Interpretation Comments Alk Phos (test code = Alk Phos) 95 39-136 [facility]2020-06-17 04:12:00 Test Item Value Reference Range Interpretation Comments Bili Total (test code = Bili Total) 0.4 0.2-1.3 [place] 698480-06-17 04:12:00 Test Item Value Reference Range Interpretation Comments AGAP (test code = AGAP) 10.7 10.0-20.0 [place] [address]-06-17 04:12:00 Test Item Value Reference Range Interpretation Comments B/C Ratio (test code = B/C Ratio) 23 1 6-25 [place] [address]-06-17 04:12:00 Test Item Value Reference Range Interpretation Comments Globulin (test code = Globulin) 2.9 2.7-4.2 [place] 698480-06-17 04:12:00 Test Item Value Reference Range Interpretation Comments A/G Ratio (test code = A/G Ratio) 1.3 1 0.7-1.6 [place] 698480-06-17 04:12:00 Test Item Value Reference Range Interpretation Comments eGFR (test code = eGFR) 28 [place] [address]-06-17 04:12:00 Test Item Value Reference Range Interpretation Comments WBC (test code = WBC) 6.3 3.7-10.4 [place] [address]-06-17 04:12:00 Test Item Value Reference Range Interpretation Comments RBC (test code = RBC) 3.81 4.20-5.40 [place] [address]-06-17 04:12:00 Test Item Value Reference Range Interpretation Comments Hgb (test code = Hgb) 12.5 12.0-16.0 [place] [address]-06-17 04:12:00 Test Item Value Reference Range Interpretation Comments Hct (test code = Hct) 36.7 36.0-48.0 [place] [address]-06-17 04:12:00 Test Item Value Reference Range Interpretation Comments MCV (test code = MCV) 96.1 80.0-98.0 [place] [address]-06-17 04:12:00 Test Item Value Reference Range Interpretation Comments MCH (test code = MCH) 32.8 pg 27.0-31.0 [facility] [id number] 04:12:00 Test Item Value Reference Range Interpretation Comments MCHC (test code = MCHC) 34.1 32.0-36.0 [facility] CampusYylxkvuDUKBBBFUUU7838-42-70 04:12:00 Test Item Value Reference Range Interpretation Comments RDW (test code = RDW) 12.8 11.5-14.5 [facility] CampusVdgukemPNEMNLOODX5377-17-78 04:12:00 Test Item Value Reference Range Interpretation Comments Platelet (test code = Platelet) 145 133-450 [facility] CampusJzylzcuNRTKFKIWVT7015-24-74 04:12:00 Test Item Value Reference Range Interpretation Comments MPV (test code = MPV) 7.8 7.4-10.4 [facility] CampusZnvstufAPVOBBHOCE5976-44-01 04:12:00 Test Item Value Reference Range Interpretation Comments PTT (test code = PTT) 28.6 s 22.9-35.8 [facility] CampusMldrxuvBXEIJQYKAN6339-93-60 04:12:00 Test Item Value Reference Range Interpretation Comments PT (test code = PT) 12.4 s 12.0-14.7 [facility] CampusHihjlakPKSKRQBWRU8412-87-00 04:12:00 Test Item Value Reference Range Interpretation Comments INR (test code = INR) 0.92 1 0.85-1.17 [facility] CampusEwigvyhXIWGZTMTAB3527-39-02 04:12:00 Test Item Value Reference Range Interpretation Comments Segs (test code = Segs) 59.7 45.0-75.0 [facility] CampusWymzujkNOIAWWRJKE0338-75-15 04:12:00 Test Item Value Reference Range Interpretation Comments Lymphocytes (test code = Lymphocytes) 29.8 20.0-40.0 [place] 324030-06-17 04:12:00 Test Item Value Reference Range Interpretation Comments Monocytes (test code = Monocytes) 6.8 2.0-12.0 [facility] CampusVwenljkTJZGMQJVLU8912-25-36 04:12:00 Test Item Value Reference Range Interpretation Comments Eosinophils (test code = 1.7 See_Comment [A utomated message] The Eosinophils) system which ge nerated this result tra nsmitted reference range : <=4.0. The reference r kendell was not used to int erpret this result as normal/abnormal . [facility] CampusFewfecaCFAPKDZWCL6631-96-81 04:12:00 Test Item Value Reference Range Interpretation Comments Basophils (test code = 2.0 See_Comment [Aut omated message] The Basophils) system which ge nerated this result tra nsmitted reference range : <=1.0. The reference r kendell was not used to int erpret this result as normal/abnormal . [facility] CampusPqrwzptAGQNKWHIQZ7729-48-89 04:12:00 Test Item Value Reference Range Interpretation Comments Neutrophils # (test code = Neutrophils 3.8 1.5-8.1 #) [facility] CampusSpasuiuLVZRTLSFWU9215-95-68 04:12:00 Test Item Value Reference Range Interpretation Comments Lymphocytes # (test code = Lymphocytes 1.9 1.0-5.5 #) [facility] CampusTtcbidrUAQBYXMZRC0444-02-09 04:12:00 Test Item Value Reference Range Interpretation Comments Monocytes # (test code 0.4 See_Comment [Aut omated message] The = Monocytes #) system which generated this result tra nsmitted reference range : <=0.8. The reference r kendell was not used to int erpret this result as normal/abnormal . [facility] CampusQarestfSMDOYPGUVY4802-10-35 04:12:00 Test Item Value Reference Range Interpretation Comments Eosinophils # (test code 0.1 See_Comment [A utomated message] The = Eosinophils #) system whic h generated this result tra nsmitted reference range : <=0.5. The reference r kendell was not used to int erpret this result as normal/abnormal . [facility] CampusAfhmrvrOHJVQAUBOH4072-47-00 04:12:00 Test Item Value Reference Range Interpretation Comments Basophils # (test code 0.1 See_Comment [Aut omated message] The = Basophils #) system which generated this result tra nsmitted reference range : <=0.2. The reference r kendell was not used to int erpret this result as normal/abnormal . [facility] TexasEyelation [id number] 04:12:00 Test Item Value Reference Range Interpretation Comments Total CK (test code = Total CK) 102 12-191 [facility] [id number] 04:12:00 Test Item Value Reference Range Interpretation Comments Troponin-I (test code no gt See_Comment [Auto mated message] The = Troponin-I) system which g enerated this result transmit theodore reference range : <=0.40. The reference r kendell was not used to interpr et this result as david l/abnormal. [place] 698480-06-17 04:12:00 Test Item Value Reference Range Interpretation Comments Glucose Lvl (test code = Glucose Lvl) 111 70-99 [place] [address]-06-17 04:12:00 Test Item Value Reference Range Interpretation Comments BUN (test code = BUN) 45 7-22 [place] [address]-06-17 04:12:00 Test Item Value Reference Range Interpretation Comments Creatinine Lvl (test code = Creatinine 1.99 0.50-1.40 Lvl) [place] [address]-06-17 04:12:00 Test Item Value Reference Range Interpretation Comments Sodium Lvl (test code = Sodium Lvl) 136 135-145 [place] [address]-06-17 04:12:00 Test Item Value Reference Range Interpretation Comments Potassium Lvl (test code = Potassium 4.7 3.5-5.1 Lvl) [place] [address]-06-17 04:12:00 Test Item Value Reference Range Interpretation Comments Chloride Lvl (test code = Chloride Lvl) 101 95-109 [place] [address]-06-17 04:12:00 Test Item Value Reference Range Interpretation Comments CO2 (test code = CO2) 29 24-32 [place] [address]-06-17 04:12:00 Test Item Value Reference Range Interpretation Comments Calcium Lvl (test code = Calcium Lvl) 9.0 8.5-10.5 [place] [address]-06-17 04:12:00 Test Item Value Reference Range Interpretation Comments Total Protein (test code = Total 6.7 6.4-8.4 Protein) [place] [address]-06-17 04:12:00 Test Item Value Reference Range Interpretation Comments Albumin Lvl (test code = Albumin Lvl) 3.8 3.5-5.0 [place] [address]-06-17 04:12:00 Test Item Value Reference Range Interpretation Comments ALT (test code = ALT) 22 See_Comment [Auto mated message] The system which ge nerated this result transmit theodore reference range : <=65. The reference range was not used to interpr et this result as david l/abnormal. [facility] TexasRankingHero [id number] 04:12:00 Test Item Value Reference Range Interpretation Comments AST (test code = AST) 19 See_Comment [Auto mated message] The system which ge nerated this result transmit theodore reference range : <=37. The reference range was not used to interpr et this result as david l/abnormal. [facility] TexasRankingHero JOOMW6412-03-34 04:12:00 Test Item Value Reference Range Interpretation Comments Alk Phos (test code = Alk Phos) 95 39-136 [facility] [id number] 04:12:00 Test Item Value Reference Range Interpretation Comments Bili Total (test code = Bili Total) 0.4 0.2-1.3 [place] [address]-06-17 04:12:00 Test Item Value Reference Range Interpretation Comments AGAP (test code = AGAP) 10.7 10.0-20.0 [place] 698480-06-17 04:12:00 Test Item Value Reference Range Interpretation Comments B/C Ratio (test code = B/C Ratio) 23 1 6-25 [place] [address]-06-17 04:12:00 Test Item Value Reference Range Interpretation Comments Globulin (test code = Globulin) 2.9 2.7-4.2 [place] [address]-06-17 04:12:00 Test Item Value Reference Range Interpretation Comments A/G Ratio (test code = A/G Ratio) 1.3 1 0.7-1.6 [facility]Ranking[facility] [id number] 04:12:00 Test Item Value Reference Range Interpretation Comments eGFR (test code = eGFR) 28 [facility] TexasZrqudtzZWEDZPLQVO9007-07-18 04:12:00 Test Item Value Reference Range Interpretation Comments WBC (test code = WBC) 6.3 3.7-10.4 [place] [address]-06-17 04:12:00 Test Item Value Reference Range Interpretation Comments RBC (test code = RBC) 3.81 4.20-5.40 [place] [address]-06-17 04:12:00 Test Item Value Reference Range Interpretation Comments Hgb (test code = Hgb) 12.5 12.0-16.0 [place] [address]-06-17 04:12:00 Test Item Value Reference Range Interpretation Comments Hct (test code = Hct) 36.7 36.0-48.0 [place] 324030-06-17 04:12:00 Test Item Value Reference Range Interpretation Comments MCV (test code = MCV) 96.1 80.0-98.0 [place] [address]-06-17 04:12:00 Test Item Value Reference Range Interpretation Comments MCH (test code = MCH) 32.8 pg 27.0-31.0 [place] [address]-06-17 04:12:00 Test Item Value Reference Range Interpretation Comments MCHC (test code = MCHC) 34.1 32.0-36.0 [place] 324030-06-17 04:12:00 Test Item Value Reference Range Interpretation Comments RDW (test code = RDW) 12.8 11.5-14.5 [place] [address]-06-17 04:12:00 Test Item Value Reference Range Interpretation Comments Platelet (test code = Platelet) 145 133-450 [facility]ZvgpgaoDOKYNMTZVX0192-58-47 04:12:00 Test Item Value Reference Range Interpretation Comments MPV (test code = MPV) 7.8 7.4-10.4 [place] [address]-06-17 04:12:00 Test Item Value Reference Range Interpretation Comments PTT (test code = PTT) 28.6 s 22.9-35.8 [place] [address]-06-17 04:12:00 Test Item Value Reference Range Interpretation Comments PT (test code = PT) 12.4 s 12.0-14.7 [place] [address]-06-17 04:12:00 Test Item Value Reference Range Interpretation Comments INR (test code = INR) 0.92 1 0.85-1.17 [place] [address]-06-17 04:12:00 Test Item Value Reference Range Interpretation Comments Segs (test code = Segs) 59.7 45.0-75.0 [place] [address]-06-17 04:12:00 Test Item Value Reference Range Interpretation Comments Lymphocytes (test code = Lymphocytes) 29.8 20.0-40.0 [place] [address]-06-17 04:12:00 Test Item Value Reference Range Interpretation Comments Monocytes (test code = Monocytes) 6.8 2.0-12.0 [place] 324030-06-17 04:12:00 Test Item Value Reference Range Interpretation Comments Eosinophils (test code = 1.7 See_Comment [A utomated message] The Eosinophils) system which ge nerated this result tra nsmitted reference range : <=4.0. The reference r kendell was not used to int erpret this result as normal/abnormal . [place] 324030-06-17 04:12:00 Test Item Value Reference Range Interpretation Comments Basophils (test code = 2.0 See_Comment [Aut omated message] The Basophils) system which ge nerated this result tra nsmitted reference range : <=1.0. The reference r kendell was not used to int erpret this result as normal/abnormal . [place] 324030-06-17 04:12:00 Test Item Value Reference Range Interpretation Comments Neutrophils # (test code = Neutrophils 3.8 1.5-8.1 #) [place] 324030-06-17 04:12:00 Test Item Value Reference Range Interpretation Comments Lymphocytes # (test code = Lymphocytes 1.9 1.0-5.5 #) [place] 324030-06-17 04:12:00 Test Item Value Reference Range Interpretation Comments Monocytes # (test code 0.4 See_Comment [Aut omated message] The = Monocytes #) system which generated this result tra nsmitted reference range : <=0.8. The reference r kendell was not used to int erpret this result as normal/abnormal . [place] 324030-06-17 04:12:00 Test Item Value Reference Range Interpretation Comments Eosinophils # (test code 0.1 See_Comment [A utomated message] The = Eosinophils #) system whic h generated this result tra nsmitted reference range : <=0.5. The reference r kendell was not used to int erpret this result as normal/abnormal . [place] 324030-06-17 04:12:00 Test Item Value Reference Range Interpretation Comments Basophils # (test code 0.1 See_Comment [Aut omated message] The = Basophils #) system which generated this result tra nsmitted reference range : <=0.2. The reference r kendell was not used to int erpret this result as normal/abnormal . [place] [address]-05-14 08:51:00 Test Item Value Reference Range Interpretation Comments Magnesium Lvl (test code = Magnesium 1.9 1.8-2.4 Lvl) [place] [address]-05-14 08:51:00 Test Item Value Reference Range Interpretation Comments Phosphorus (test code = Phosphorus) 3.7 2.5-4.5 [place] [address]-05-14 08:51:00 Test Item Value Reference Range Interpretation Comments Glucose Lvl (test code = Glucose Lvl) 127 70-99 [place] [address]-05-14 08:51:00 Test Item Value Reference Range Interpretation Comments BUN (test code = BUN) 15 7-22 [place] [address]-05-14 08:51:00 Test Item Value Reference Range Interpretation Comments Creatinine Lvl (test code = Creatinine 0.88 0.50-1.40 Lvl) [place] [address]-05-14 08:51:00 Test Item Value Reference Range Interpretation Comments Sodium Lvl (test code = Sodium Lvl) 138 135-145 [place] [address]-05-14 08:51:00 Test Item Value Reference Range Interpretation Comments Potassium Lvl (test code = Potassium 3.7 3.5-5.1 Lvl) [place] [address]-05-14 08:51:00 Test Item Value Reference Range Interpretation Comments Chloride Lvl (test code = Chloride Lvl) 104 95-109 [place] [address]-05-14 08:51:00 Test Item Value Reference Range Interpretation Comments CO2 (test code = CO2) 24 24-32 [place] [address]-05-14 08:51:00 Test Item Value Reference Range Interpretation Comments Calcium Lvl (test code = Calcium Lvl) 8.6 8.5-10.5 [place] [address]-05-14 08:51:00 Test Item Value Reference Range Interpretation Comments AGAP (test code = AGAP) 13.7 10.0-20.0 [place] [address]-05-14 08:51:00 Test Item Value Reference Range Interpretation Comments eGFR (test code = eGFR) 74 [place] 324030-05-14 08:51:00 Test Item Value Reference Range Interpretation Comments Segs (test code = Segs) 34.6 45.0-75.0 [place] [address]-05-14 08:51:00 Test Item Value Reference Range Interpretation Comments Lymphocytes (test code = Lymphocytes) 52.1 20.0-40.[address]05-14 08:51:00 Test Item Value Reference Range Interpretation Comments Monocytes (test code = Monocytes) 8.0 2.0-12.0 [place] [address]-05-14 08:51:00 Test Item Value Reference Range Interpretation Comments Eosinophils (test code = 4.4 See_Comment [A utomated message] The Eosinophils) system which ge nerated this result tra nsmitted reference range : <=4.0. The reference r kendell was not used to int erpret this result as normal/abnormal . [address]05-14 08:51:00 Test Item Value Reference Range Interpretation Comments Basophils (test code = 0.9 See_Comment [Aut omated message] The Basophils) system which ge nerated this result tra nsmitted reference range : <=1.0. The reference r kendell was not used to int erpret this result as normal/abnormal . [place] [address]-05-14 08:51:00 Test Item Value Reference Range Interpretation Comments Neutrophils # (test code = Neutrophils 1.7 1.5-8.1 #) [address]05-14 08:51:00 Test Item Value Reference Range Interpretation Comments Lymphocytes # (test code = Lymphocytes 2.6 1.0-5.5 #) [address]05-14 08:51:00 Test Item Value Reference Range Interpretation Comments Monocytes # (test code 0.4 See_Comment [Aut omated message] The = Monocytes #) system which generated this result tra nsmitted reference range : <=0.8. The reference r kendell was not used to int erpret this result as normal/abnormal . [place] [address]-05-14 08:51:00 Test Item Value Reference Range Interpretation Comments Eosinophils # (test code 0.2 See_Comment [A utomated message] The = Eosinophils #) system whic h generated this result tra nsmitted reference range : <=0.5. The reference r kendell was not used to int erpret this result as normal/abnormal . [facility] CampusRngfjqjTEKKBHQHQC7026-71-61 08:51:00 Test Item Value Reference Range Interpretation Comments WBC (test code = WBC) 4.9 3.7-10.4 [facility] CampusGriqghqBYOYCOEPWQ6466-70-98 08:51:00 Test Item Value Reference Range Interpretation Comments RBC (test code = RBC) 3.72 4.20-5.40 [facility] CampusDhnjhfmKUPQCIZZOK3337-93-25 08:51:00 Test Item Value Reference Range Interpretation Comments Hgb (test code = Hgb) 12.2 12.0-16.0 [facility] CampusErxpxmgINFGWUCMQT5321-89-96 08:51:00 Test Item Value Reference Range Interpretation Comments Hct (test code = Hct) 35.4 36.0-48.0 [facility] CampusObjdyxfPTRXCMCRMP0013-00-48 08:51:00 Test Item Value Reference Range Interpretation Comments MCV (test code = MCV) 95.0 80.0-98.0 [facility] CampusFnwhxnlMSSKNDALDR9058-47-33 08:51:00 Test Item Value Reference Range Interpretation Comments MCH (test code = MCH) 32.7 pg 27.0-31.0 [facility]tZDHFHDWNOS9313-29-94 08:51:00 Test Item Value Reference Range Interpretation Comments MCHC (test code = MCHC) 34.4 32.0-36.0 [facility] HospitalNhfrogcCVOKIUIGPK1918-12-48 08:51:00 Test Item Value Reference Range Interpretation Comments RDW (test code = RDW) 13.1 11.5-14.5 [facility] CampusWwxiwafQDXNJHXCLO5667-68-53 08:51:00 Test Item Value Reference Range Interpretation Comments Platelet (test code = Platelet) 219 133-450 [facility] CampusCyrftcrRQOPSOHOMV3874-04-16 08:51:00 Test Item Value Reference Range Interpretation Comments MPV (test code = MPV) 7.6 7.4-10.4 [facility]PARATHYROID FJKYKKE0981-66-12 08:51:00 Test Item Value Reference Range Interpretation Comments Ca Ion WB (test code = Ca Ion WB) 1.14 1.05-1.25 [facility] AmericaannPARATHYROID QWQWQCG7805-38-62 08:51:00 Test Item Value Reference Range Interpretation Comments Ca Norm WB (test code = Ca Norm WB) 1.14 1.05-1.25 [place] [address]-05-14 08:51:00 Test Item Value Reference Range Interpretation Comments Magnesium Lvl (test code = Magnesium 1.9 1.8-2.4 Lvl) [place] [address]-05-14 08:51:00 Test Item Value Reference Range Interpretation Comments Phosphorus (test code = Phosphorus) 3.7 2.5-4.5 [place] [address]-05-14 08:51:00 Test Item Value Reference Range Interpretation Comments Glucose Lvl (test code = Glucose Lvl) 127 70-99 [place] [address]-05-14 08:51:00 Test Item Value Reference Range Interpretation Comments BUN (test code = BUN) 15 7-22 [place] [address]-05-14 08:51:00 Test Item Value Reference Range Interpretation Comments Creatinine Lvl (test code = Creatinine 0.88 0.50-1.40 Lvl) [place] [address]-05-14 08:51:00 Test Item Value Reference Range Interpretation Comments Sodium Lvl (test code = Sodium Lvl) 138 135-145 [place] [address]-05-14 08:51:00 Test Item Value Reference Range Interpretation Comments Potassium Lvl (test code = Potassium 3.7 3.5-5.1 Lvl) [place] 698480-05-14 08:51:00 Test Item Value Reference Range Interpretation Comments Chloride Lvl (test code = Chloride Lvl) 104 95-109 [place] [address]-05-14 08:51:00 Test Item Value Reference Range Interpretation Comments CO2 (test code = CO2) 24 24-32 [place] [address]-05-14 08:51:00 Test Item Value Reference Range Interpretation Comments Calcium Lvl (test code = Calcium Lvl) 8.6 8.5-10.5 [place] [address]-05-14 08:51:00 Test Item Value Reference Range Interpretation Comments AGAP (test code = AGAP) 13.7 10.0-20.0 [place] [address]-05-14 08:51:00 Test Item Value Reference Range Interpretation Comments eGFR (test code = eGFR) 74 [place] 324030-05-14 08:51:00 Test Item Value Reference Range Interpretation Comments Segs (test code = Segs) 34.6 45.0-75.0 [place] [address]-05-14 08:51:00 Test Item Value Reference Range Interpretation Comments Lymphocytes (test code = Lymphocytes) 52.1 20.0-40.[address]05-14 08:51:00 Test Item Value Reference Range Interpretation Comments Monocytes (test code = Monocytes) 8.0 2.0-12.0 [place] [address]-05-14 08:51:00 Test Item Value Reference Range Interpretation Comments Eosinophils (test code = 4.4 See_Comment [A utomated message] The Eosinophils) system which ge nerated this result tra nsmitted reference range : <=4.0. The reference r kendell was not used to int erpret this result as normal/abnormal . [address]05-14 08:51:00 Test Item Value Reference Range Interpretation Comments Basophils (test code = 0.9 See_Comment [Aut omated message] The Basophils) system which ge nerated this result tra nsmitted reference range : <=1.0. The reference r kendell was not used to int erpret this result as normal/abnormal . [place] [address]-05-14 08:51:00 Test Item Value Reference Range Interpretation Comments Neutrophils # (test code = Neutrophils 1.7 1.5-8.1 #) [address]05-14 08:51:00 Test Item Value Reference Range Interpretation Comments Lymphocytes # (test code = Lymphocytes 2.6 1.0-5.5 #) [address]05-14 08:51:00 Test Item Value Reference Range Interpretation Comments Monocytes # (test code 0.4 See_Comment [Aut omated message] The = Monocytes #) system which generated this result tra nsmitted reference range : <=0.8. The reference r kendell was not used to int erpret this result as normal/abnormal . [place] [address]-05-14 08:51:00 Test Item Value Reference Range Interpretation Comments Eosinophils # (test code 0.2 See_Comment [A utomated message] The = Eosinophils #) system whic h generated this result tra nsmitted reference range : <=0.5. The reference r kendell was not used to int erpret this result as normal/abnormal . [facility] CampusIhhoowmSOYWTSCJTL9106-04-83 08:51:00 Test Item Value Reference Range Interpretation Comments WBC (test code = WBC) 4.9 3.7-10.4 [facility] CampusRnbbjfnMSLQLXIYUS7860-98-05 08:51:00 Test Item Value Reference Range Interpretation Comments RBC (test code = RBC) 3.72 4.20-5.40 [facility] CampusAplgcgvVGQZODNNXE0680-19-69 08:51:00 Test Item Value Reference Range Interpretation Comments Hgb (test code = Hgb) 12.2 12.0-16.0 [facility] CampusXprvdvfTBKFINQASO8235-81-19 08:51:00 Test Item Value Reference Range Interpretation Comments Hct (test code = Hct) 35.4 36.0-48.0 [facility] CampusAkyfiaqUSRVYRTBFY4613-08-90 08:51:00 Test Item Value Reference Range Interpretation Comments MCV (test code = MCV) 95.0 80.0-98.0 [facility] CampusYiirizyFLQAPNMHCK3700-44-75 08:51:00 Test Item Value Reference Range Interpretation Comments MCH (test code = MCH) 32.7 pg 27.0-31.0 [facility]FeholeuCKXDMFNBGQ8055-55-79 08:51:00 Test Item Value Reference Range Interpretation Comments MCHC (test code = MCHC) 34.4 32.0-36.0 [facility] HospitalEyzcecjIVEHSFATDO1104-69-36 08:51:00 Test Item Value Reference Range Interpretation Comments RDW (test code = RDW) 13.1 11.5-14.5 [facility] CampusLpoahcgJWXUBKGCQR6113-04-95 08:51:00 Test Item Value Reference Range Interpretation Comments Platelet (test code = Platelet) 219 133-450 [facility] CampusHhzmhdnTPGWAFWVHV9242-85-60 08:51:00 Test Item Value Reference Range Interpretation Comments MPV (test code = MPV) 7.6 7.4-10.4 [facility]PARATHYROID LMASLYU5265-08-24 08:51:00 Test Item Value Reference Range Interpretation Comments Ca Ion WB (test code = Ca Ion WB) 1.14 1.05-1.25 [facility] AmericaannPARATHYROID VAJGIWE9746-23-87 08:51:00 Test Item Value Reference Range Interpretation Comments Ca Norm WB (test code = Ca Norm WB) 1.14 1.05-1.25 [facility] TexasBACTERIAL - [id number] 17:24:00 Test Item Value Reference Range Interpretation Comments Source Strep (test code Cerebral Spinal Fluid = Source Strep) [facility] TexasBACTERIAL - [id number] 17:24:00 Test Item Value Reference Range Interpretation Comments Strep pneumoniae Ag Negative (03/21/20 (test code = Strep 12:24 PM) pneumoniae Ag) [facility] [id number] 17:24:00 Test Item Value Reference Range Interpretation Comments Tube Num CSF (test code = Tube Num CSF) 1 1 [facility] [id number] 17:24:00 Test Item Value Reference Range Interpretation Comments Color CSF (test code Colorless (03/21/20 12:24 = Color CSF) PM) [facility] [id number] 17:24:00 Test Item Value Reference Range Interpretation Comments Clarity CSF (test code = Clear (03/21/20 12:24 Clarity CSF) PM) [facility] [id number] 17:24:00 Test Item Value Reference Range Interpretation Comments Supernat CSF (test Colorless (03/21/20 code = Supernat CSF) 12:24 PM) [facility] [id number] 17:24:00 Test Item Value Reference Range Interpretation Comments Nucleated Cells CSF 0 See_Comment [Automa theodore message] The (test code = Nucleated syste m which generated Cells CSF) this result tra nsmitted reference range : <=53. The reference r kendell was not used to int erpret this result as normal/abnormal . [facility] TexasAccuSiliconFUOXSN6633-26-86 17:24:00 Test Item Value Reference Range Interpretation Comments RBC CSF (test code = 1 See_Comment [Autom ated message] The RBC CSF) system which ge nerated this result transmit theodore reference range : <=03. The reference range was not used to interpr et this result as david l/abnormal. [facility] [id number] 17:24:00 Test Item Value Reference Range Interpretation Comments Comment CSF (test Differential not code = Comment CSF) performed when WBC is zero. [facility] [id number] 17:24:00 Test Item Value Reference Range Interpretation Comments Glucose CSF (test code = Glucose CSF) 64 45-80 [facility] [id number] 17:24:00 Test Item Value Reference Range Interpretation Comments Protein CSF (test code = Protein CSF) 31 15-45 [facility] [id number] 17:24:00 Test Item Value Reference Range Interpretation Comments Tube Num CSF (test code = Tube Num CSF) 4 1 [facility] [id number] 17:24:00 Test Item Value Reference Range Interpretation Comments Color CSF (test code Colorless (03/21/20 12:24 = Color CSF) PM) [facility] [id number] 17:24:00 Test Item Value Reference Range Interpretation Comments Clarity CSF (test code = Clear (03/21/20 12:24 Clarity CSF) PM) [facility]2020-05-13 17:24:00 Test Item Value Reference Range Interpretation Comments Supernat CSF (test Colorless (03/21/20 code = Supernat CSF) 12:24 PM) [facility]2020-05-13 17:24:00 Test Item Value Reference Range Interpretation Comments Nucleated Cells CSF 1 See_Comment [Automa theodore message] The (test code = Nucleated syste m which generated Cells CSF) this result tra nsmitted reference range : <=53. The reference r kendell was not used to int erpret this result as normal/abnormal . [facility] [id number] 17:24:00 Test Item Value Reference Range Interpretation Comments RBC CSF (test code = 0 See_Comment [Autom ated message] The RBC CSF) system which ge nerated this result transmit theodore reference range : <=03. The reference range was not used to interpr et this result as david l/abnormal. [facility] [id number] 17:24:00 Test Item Value Reference Range Interpretation Comments Comment CSF (test Differential not code = Comment CSF) performed on WBC count of less than 5. [facility] [id number] 17:24:00 Test Item Value Reference Range Interpretation Comments Lactic Acid CSF (test code = Lactic 1.9 0.6-2.2 Acid CSF) [facility] TexasFUNGAL - [id number] 17:24:00 Test Item Value Reference Range Interpretation Comments Crypto Ag CSF (test Negative (03/21/20 12:24 code = Crypto Ag CSF) PM) [facility] TexasExeyvvzTIRDALZAYF8380-00-58 17:24:00 Test Item Value Reference Range Interpretation Comments VDRL Scr CSF (test Non Reactive (03/21/20 code = VDRL Scr CSF) 12:24 PM) [facility] TexasPwjneepDPOJHHVSNF2283-69-52 17:24:00 Test Item Value Reference Range Interpretation Comments Alb (CPE) (test code = Alb (CPE)) 3300.0 3400.0-5000.0 [facility] TexasGzccofqTJWMVFELBS6216-36-06 17:24:00 Test Item Value Reference Range Interpretation Comments IgG Lvl CSF (test code = IgG Lvl CSF) 1.1 2.0-4.0 [facility] AmericaYjmpfekWUNBEKGZAN1738-30-18 17:24:00 Test Item Value Reference Range Interpretation Comments IgG (CPE) (test code = IgG (CPE)) 104 878-1893 [facility] TexasHhobzdcRWBHTSUGAO8233-13-44 17:24:00 Test Item Value Reference Range Interpretation Comments IgG Index (test code = IgG Index) 0.5 0.3-0.7 [facility] TexasYwpkzbcWRFGUQLQHH3982-67-33 17:24:00 Test Item Value Reference Range Interpretation Comments Alb CSF (CPE) (test code = Alb CSF 15.4 14.0-25.0 (CPE)) [facility] TexasBdrkxhdEYHXKDNZVV0130-52-44 17:24:00 Test Item Value Reference Range Interpretation Comments Description CSF (test The gel demonstrates code = Description appropriate resolution CSF) of the main protein bands. The gamma region shows continuous distribution of proteins both in the CSF and in the serum. No oligoclonal bands are detected. [facility] TexasTzhqdbuIGDLPUTFVO8619-49-64 17:24:00 Test Item Value Reference Range Interpretation Comments PE Interp CSF CSF protein electrophoresis (test code = PE did not reveal evidence of Interp CSF) an oligoclonal process in the MANAGER POST. The CSF IgG index is within the reference range indicating that there is no elevation in intracerebral IgG synthesis. There is also no evidence of increased permeability of the blood brain barrier based on the CSF/serum albumin ratio. The electronic medical record has been reviewed for relevant history. I have personally reviewed the test results and concur with the resident's interpretation. CPT: 35613-RZ [facility] TexasMuvnyauREZBJBQHLN2349-88-23 17:24:00 Test Item Value Reference Range Interpretation Comments Albumin % (test code = Albumin %) 60.1 55.8-66.1 [facility] AmericaZvctmifFGDKTHYBRO9876-33-19 17:24:00 Test Item Value Reference Range Interpretation Comments Alpha 1 % (test code = Alpha 1 %) 6.7 2.8-4.9 [facility] TexasBpiviebCYNQHBIVFF5470-98-19 17:24:00 Test Item Value Reference Range Interpretation Comments Alpha 2 % (test code = Alpha 2 %) 12.1 7.0-11.9 [facility] AmericaOswzrjjDQRZPGMVNY3360-92-93 17:24:00 Test Item Value Reference Range Interpretation Comments Beta % (test code = Beta %) 11.3 7.8-13.7 [facility] AmericaKobfmhfVZNQEJISDI8953-95-09 17:24:00 Test Item Value Reference Range Interpretation Comments Gamma % (test code = Gamma %) 9.8 11.1-18.7 [facility] AmericaNhbijumFUKIPBZLPU1796-63-01 17:24:00 Test Item Value Reference Range Interpretation Comments Albumin (SPE) (test code = Albumin 4.21 3.57-5.55 (SPE)) [facility] AmericaMxopprhOTARAVTHFF2871-18-32 17:24:00 Test Item Value Reference Range Interpretation Comments Alpha 1 Glob (test code = Alpha 1 Glob) 0.47 0.18-0.41 [facility] AmericaBlnzaiyKVALZBEWNN9255-87-22 17:24:00 Test Item Value Reference Range Interpretation Comments Alpha 2 Glob (test code = Alpha 2 Glob) 0.85 0.45-1.00 [facility] AmericaHbyadwqZIDBOPQBXE3479-05-33 17:24:00 Test Item Value Reference Range Interpretation Comments Beta Glob (test code = Beta Glob) 0.79 0.50-1.15 [facility] AmericaYhhpqptBKTDCKPXRC5816-02-84 17:24:00 Test Item Value Reference Range Interpretation Comments Gamma Glob (test code = Gamma Glob) 0.69 0.71-1.57 [facility] AmericaOhrhqjyXMEZLLONSQ2059-02-37 17:24:00 Test Item Value Reference Range Interpretation Comments Tot Prot (SPE) (test code = Tot Prot 7.0 6.4-8.4 (SPE)) [facility] Ameri[id number] 17:24:00 Test Item Value Reference Range Interpretation [...] and concur with the resident's interpretation. CPT 97489-DL [facility] AmericaX[id number] 17:24:00 Test Item Value Reference Range Interpretation Comments Toxoplasma IgG (test code = Toxoplasma no gt IgG) [facility] AmericaLxtlpesUOFBDGMAIT6791-18-54 17:24:00 Test Item Value Reference Range Interpretation Comments Toxoplasma IgM (test code = Toxoplasma 0.420 IgM) [facility] AmericaannMOLECULAR PIQNRQNYGG6604-07-20 17:24:00 Test Item Value Reference Range Interpretation Comments Source HSV (test code = Cerebral Spinal Fluid Source HSV) [facility] [id number] 17:24:00 Test Item Value Reference Range Interpretation Comments HSV 1 by PCR (test Not Performed 1(03/21/20 code = HSV 1 by PCR) 12:24 PM) [facility] AmericaannMOLECULAR [id number] 17:24:00 Test Item Value Reference Range Interpretation Comments HSV 2 by PCR (test Not Performed 2(03/21/20 code = HSV 2 by PCR) 12:24 PM) [facility] AmericaannNELECULAR [id number] 17:24:00 Test Item Value Reference Range Interpretation Comments Source VZV (test code = Cerebral Spinal Fluid Source VZV) [facility] AmericaannNELECULAR [id number] 17:24:00 Test Item Value Reference Range Interpretation Comments VZV PCR (test code = Negative (03/21/20 12:24 VZV PCR) PM) [facility] AmericaannMOLECULAR [id number] 17:24:00 Test Item Value Reference Range Interpretation Comments Source CMV (test code = Cerebral Spinal Fluid Source CMV) [facility] AmericaannNELECULAR [id number] 17:24:00 Test Item Value Reference Range Interpretation Comments CMV PCR (test code = Negative (03/21/20 12:24 CMV PCR) PM) [facility] AmericaannVIRAL - [id number] 17:24:00 Test Item Value Reference Range Interpretation Comments Enterovirus PCR CSF Negative (03/21/20 (test code = Enterovirus 12:24 PM) PCR CSF) [facility]Gram Stain [id number] 17:24:00 Test Item Value Reference Range Interpretation Comments Gram Stain Report Gram Stain Performed By: (test code = Gram [facility] St[facility] Report) [facility] w/Gram [id number] 17:24:00 Test Item Value Reference Range Interpretation Comments Culture: CSF w/Gram 72 Hour Report - No Stain (test code = Growth, Holding Culture: CSF w/Gram Stain) [facility] TexasBACTERIAL - [id number] 17:24:00 Test Item Value Reference Range Interpretation Comments Source Strep (test code Cerebral Spinal Fluid = Source Strep) [facility] TexasBACTERIAL - [id number] 17:24:00 Test Item Value Reference Range Interpretation Comments Strep pneumoniae Ag Negative (03/21/20 (test code = Strep 12:24 PM) pneumoniae Ag) [facility] [id number] 17:24:00 Test Item Value Reference Range Interpretation Comments Tube Num CSF (test code = Tube Num CSF) 1 1 [facility] [id number] 17:24:00 Test Item Value Reference Range Interpretation Comments Color CSF (test code Colorless (03/21/20 12:24 = Color CSF) PM) [facility]2020-05-13 17:24:00 Test Item Value Reference Range Interpretation Comments Clarity CSF (test code = Clear (03/21/20 12:24 Clarity CSF) PM) [facility]2020-05-13 17:24:00 Test Item Value Reference Range Interpretation Comments Supernat CSF (test Colorless (03/21/20 code = Supernat CSF) 12:24 PM) [facility] [id number] 17:24:00 Test Item Value Reference Range Interpretation Comments Nucleated Cells CSF 0 See_Comment [Automa theodore message] The (test code = Nucleated syste m which generated Cells CSF) this result tra nsmitted reference range : <=53. The reference r kendell was not used to int erpret this result as normal/abnormal . [facility] [id number] 17:24:00 Test Item Value Reference Range Interpretation Comments RBC CSF (test code = 1 See_Comment [Autom ated message] The RBC CSF) system which ge nerated this result transmit theodore reference range : <=03. The reference range was not used to interpr et this result as david l/abnormal. [facility] [id number] 17:24:00 Test Item Value Reference Range Interpretation Comments Comment CSF (test Differential not code = Comment CSF) performed when WBC is zero. [facility] Tex[id number] 17:24:00 Test Item Value Reference Range Interpretation Comments Glucose CSF (test code = Glucose CSF) 64 45-80 [facility] TexasLendio [id number] 17:24:00 Test Item Value Reference Range Interpretation Comments Protein CSF (test code = Protein CSF) 31 15-45 [facility] [id number] 17:24:00 Test Item Value Reference Range Interpretation Comments Tube Num CSF (test code = Tube Num CSF) 4 1 [facility] Tex[id number] 17:24:00 Test Item Value Reference Range Interpretation Comments Color CSF (test code Colorless (03/21/20 12:24 = Color CSF) PM) [facility] [id number] 17:24:00 Test Item Value Reference Range Interpretation Comments Clarity CSF (test code = Clear (03/21/20 12:24 Clarity CSF) PM) [facility] [id number] 17:24:00 Test Item Value Reference Range Interpretation Comments Supernat CSF (test Colorless (03/21/20 code = Supernat CSF) 12:24 PM) [facility] [id number] 17:24:00 Test Item Value Reference Range Interpretation Comments Nucleated Cells CSF 1 See_Comment [Automa theodore message] The (test code = Nucleated syste m which generated Cells CSF) this result tra nsmitted reference range : <=53. The reference r kendell was not used to int erpret this result as normal/abnormal . [facility] [id number] 17:24:00 Test Item Value Reference Range Interpretation Comments RBC CSF (test code = 0 See_Comment [Autom ated message] The RBC CSF) system which ge nerated this result transmit theodore reference range : <=03. The reference range was not used to interpr et this result as david l/abnormal. [facility] Tex[id number] 17:24:00 Test Item Value Reference Range Interpretation Comments Comment CSF (test Differential not code = Comment CSF) performed on WBC count of less than 5. [facility] TexasBODY [id number] 17:24:00 Test Item Value Reference Range Interpretation Comments Lactic Acid CSF (test code = Lactic 1.9 0.6-2.2 Acid CSF) [facility] TexasFUNGAL - [id number] 17:24:00 Test Item Value Reference Range Interpretation Comments Crypto Ag CSF (test Negative (03/21/20 12:24 code = Crypto Ag CSF) PM) [facility] Ameri[id number] 17:24:00 Test Item Value Reference Range Interpretation Comments VDRL Scr CSF (test Non Reactive (03/21/20 code = VDRL Scr CSF) 12:24 PM) [facility] AmericaGvtpmwzPMUUEIGQXY5245-13-68 17:24:00 Test Item Value Reference Range Interpretation Comments Alb (CPE) (test code = Alb (CPE)) 3300.0 3400.0-5000.0 [facility] AmericaTtusjqxMDKPPWVYGJ5315-35-49 17:24:00 Test Item Value Reference Range Interpretation Comments IgG Lvl CSF (test code = IgG Lvl CSF) 1.1 2.0-4.0 [facility] AmericaUdwftdaALNHCDZEXF9466-70-56 17:24:00 Test Item Value Reference Range Interpretation Comments IgG (CPE) (test code = IgG (CPE)) 396 201-4287 [facility] AmericaXvujihxQQIUQKELNH2152-32-77 17:24:00 Test Item Value Reference Range Interpretation Comments IgG Index (test code = IgG Index) 0.5 0.3-0.7 [facility] AmericaRydvrjgJUYLHUHGHE0644-07-91 17:24:00 Test Item Value Reference Range Interpretation Comments Alb CSF (CPE) (test code = Alb CSF 15.4 14.0-25.0 (CPE)) [facility] AmericaSrtbehiPXXGHNWEVX3937-12-76 17:24:00 Test Item Value Reference Range Interpretation Comments Description CSF (test The gel demonstrates code = Description appropriate resolution CSF) of the main protein bands. The gamma region shows continuous distribution of proteins both in the CSF and in the serum. No oligoclonal bands are detected. [facility] AmericaGzsupqoGBGRLVUYYB2439-81-24 17:24:00 Test Item Value Reference Range Interpretation Comments PE Interp CSF CSF protein electrophoresis (test code = PE did not reveal evidence of Interp CSF) an oligoclonal process in the MANAGER POST. The CSF IgG index is within the reference range indicating that there is no elevation in intracerebral IgG synthesis. There is also no evidence of increased permeability of the blood brain barrier based on the CSF/serum albumin ratio. The electronic medical record has been reviewed for relevant history. I have personally reviewed the test results and concur with the resident's interpretation. CPT: 57339-WB [facility] TexasAbayuwdGJSBRUVNLJ4879-31-29 17:24:00 Test Item Value Reference Range Interpretation Comments Albumin % (test code = Albumin %) 60.1 55.8-66.1 [facility] AmericaTyqlnayOOWFGKUUDK7987-67-76 17:24:00 Test Item Value Reference Range Interpretation Comments Alpha 1 % (test code = Alpha 1 %) 6.7 2.8-4.9 [facility] TexasAmqahqiICSVFYLIAQ3873-63-61 17:24:00 Test Item Value Reference Range Interpretation Comments Alpha 2 % (test code = Alpha 2 %) 12.1 7.0-11.9 [facility] Ameri[id number] 17:24:00 Test Item Value Reference Range Interpretation Comments Beta % (test code = Beta %) 11.3 7.8-13.7 [facility] AmericaGfxbqpuLQCSJSHTJD1259-95-35 17:24:00 Test Item Value Reference Range Interpretation Comments Gamma % (test code = Gamma %) 9.8 11.1-18.7 [facility] AmericaLnfifrdLRQHGLSLAT7668-80-50 17:24:00 Test Item Value Reference Range Interpretation Comments Albumin (SPE) (test code = Albumin 4.21 3.57-5.55 (SPE)) [facility] TexasWbzmxwkPRWWSVCYOE0564-10-25 17:24:00 Test Item Value Reference Range Interpretation Comments Alpha 1 Glob (test code = Alpha 1 Glob) 0.47 0.18-0.41 [facility] AmericaNfqwuloPICBMCCEVH4945-67-69 17:24:00 Test Item Value Reference Range Interpretation Comments Alpha 2 Glob (test code = Alpha 2 Glob) 0.85 0.45-1.00 [facility] AmericaAagnmpgLRQXOTYUOI3058-54-45 17:24:00 Test Item Value Reference Range Interpretation Comments Beta Glob (test code = Beta Glob) 0.79 0.50-1.15 [facility] AmericaZmlyrprHRUFRUDYYM4409-47-84 17:24:00 Test Item Value Reference Range Interpretation Comments Gamma Glob (test code = Gamma Glob) 0.69 0.71-1.57 [facility] TexasCyqnvknDQXMJGAUGA8606-53-62 17:24:00 Test Item Value Reference Range Interpretation Comments Tot Prot (SPE) (test code = Tot Prot 7.0 6.4-8.4 (SPE)) [facility] Tex[id number] 17:24:00 Test Item Value Reference Range Interpretation [...] and concur with the resident's interpretation. CPT 88510-YZ [facility] [id number] 17:24:00 Test Item Value Reference Range Interpretation Comments Toxoplasma IgG (test code = Toxoplasma no gt IgG) [facility] TexasAcaibsnMALGJHTANF8518-63-37 17:24:00 Test Item Value Reference Range Interpretation Comments Toxoplasma IgM (test code = Toxoplasma 0.420 IgM) [facility]2020-05-13 17:24:00 Test Item Value Reference Range Interpretation Comments Source HSV (test code = Cerebral Spinal Fluid Source HSV) [place] [address]-05-13 17:24:00 Test Item Value Reference Range Interpretation Comments HSV 1 by PCR (test Not Performed 1(03/21/20 code = HSV 1 by PCR) 12:24 PM) [place] [address]-05-13 17:24:00 Test Item Value Reference Range Interpretation Comments HSV 2 by PCR (test Not Performed 2(03/21/20 code = HSV 2 by PCR) 12:24 PM) [place] [address]-05-13 17:24:00 Test Item Value Reference Range Interpretation Comments Source VZV (test code = Cerebral Spinal Fluid Source VZV) [place] [address]-05-13 17:24:00 Test Item Value Reference Range Interpretation Comments VZV PCR (test code = Negative (03/21/20 12:24 VZV PCR) PM) [place] [address]-05-13 17:24:00 Test Item Value Reference Range Interpretation Comments Source CMV (test code = Cerebral Spinal Fluid Source CMV) [facility] AmericaannMOLECULAR [id number] 17:24:00 Test Item Value Reference Range Interpretation Comments CMV PCR (test code = Negative (03/21/20 12:24 CMV PCR) PM) [facility] AmericaannVIRAL - [id number] 17:24:00 Test Item Value Reference Range Interpretation Comments Enterovirus PCR CSF Negative (03/21/20 (test code = Enterovirus 12:24 PM) PCR CSF) [facility] AmericaannGram Stain [id number] 17:24:00 Test Item Value Reference Range Interpretation Comments Gram Stain Report Gram Stain Performed By: (test code = Gram [facility] Stain Report) [facility] w/Gram [id number] 17:24:00 Test Item Value Reference Range Interpretation Comments Culture: CSF w/Gram 72 Hour Report - No Stain (test code = Growth, Holding Culture: CSF w/Gram Stain) [facility] AmericaPrescribe Well[facility] [id number] 08:30:00 Test Item Value Reference Range Interpretation Comments Glucose Lvl (test code = Glucose Lvl) 100 70-99 [facility] [id number] 08:30:00 Test Item Value Reference Range Interpretation Comments BUN (test code = BUN) 12 - [facility] AmericaPres[facility] [id number] 08:30:00 Test Item Value Reference Range Interpretation Comments Creatinine Lvl (test code = Creatinine 1.03 0.50-1.40 Lvl) [facility] [id number] 08:30:00 Test Item Value Reference Range Interpretation Comments Sodium Lvl (test code = Sodium Lvl) 135 135-145 [facility] [id number] 08:30:00 Test Item Value Reference Range Interpretation Comments Potassium Lvl (test code = Potassium 3.9 3.5-5.1 Lvl) [facility] AmericaPres[facility] [id number] 08:30:00 Test Item Value Reference Range Interpretation Comments Chloride Lvl (test code = Chloride Lvl) 102 95-109 [facility] AmericaPres[facility] [id number] 08:30:00 Test Item Value Reference Range Interpretation Comments CO2 (test code = CO2) 24-32 [facility] [place] [address]-05-13 08:30:00 Test Item Value Reference Range Interpretation Comments Calcium Lvl (test code = Calcium Lvl) 9.4 8.5-10.[address]05-13 08:30:00 Test Item Value Reference Range Interpretation Comments AGAP (test code = AGAP) 10.9 10.0-20.[address]05-13 08:30:00 Test Item Value Reference Range Interpretation Comments eGFR (test code = eGFR) [address]05-13 08:30:00 Test Item Value Reference Range Interpretation Comments Magnesium Lvl (test code = Magnesium 2.0 1.8-2.4 Lvl) [address]05-13 08:30:00 Test Item Value Reference Range Interpretation Comments Phosphorus (test code = Phosphorus) 2.6 2.5-4.[address]05-13 08:30:00 Test Item Value Reference Range Interpretation Comments WBC (test code = WBC) 6.6 3.7-10.[address]05-13 08:30:00 Test Item Value Reference Range Interpretation Comments RBC (test code = RBC) 4.11 4.20-5.[address]05-13 08:30:00 Test Item Value Reference Range Interpretation Comments Hgb (test code = Hgb) 13.5 12.0-16.[address]05-13 08:30:00 Test Item Value Reference Range Interpretation Comments Hct (test code = Hct) 39.7 36.0-48.[address]05-13 08:30:00 Test Item Value Reference Range Interpretation Comments MCV (test code = MCV) 96.7 80.0-98.[address]05-13 08:30:00 Test Item Value Reference Range Interpretation Comments MCH (test code = MCH) 32.8 pg 27.0-31.0 [place] [address]-05-13 08:30:00 Test Item Value Reference Range Interpretation Comments MCHC (test code = MCHC) 33.9 32.0-36.[address]05-13 08:30:00 Test Item Value Reference Range Interpretation Comments RDW (test code = RDW) 13.3 11.5-14.5 [place] [address]-05-13 08:30:00 Test Item Value Reference Range Interpretation Comments Platelet (test code = Platelet) 291 133-450 [place] [address]-05-13 08:30:00 Test Item Value Reference Range Interpretation Comments MPV (test code = MPV) 8.1 7.4-10.4 [place] [address]-05-13 08:30:00 Test Item Value Reference Range Interpretation Comments PT (test code = PT) 13.5 s 12.0-14.[address]05-13 08:30:00 Test Item Value Reference Range Interpretation Comments INR (test code = INR) 1.03 1 0.85-1.[address]05-13 08:30:00 Test Item Value Reference Range Interpretation Comments PTT (test code = PTT) 32.1 s 22.9-35.8 [place] [address]-05-13 08:30:00 Test Item Value Reference Range Interpretation Comments Segs (test code = Segs) 65.9 45.0-75.[address]05-13 08:30:00 Test Item Value Reference Range Interpretation Comments Lymphocytes (test code = Lymphocytes) 26.2 20.0-40.0 [place] [address]-05-13 08:30:00 Test Item Value Reference Range Interpretation Comments Monocytes (test code = Monocytes) 5.4 2.0-12.0 [place] [address]-05-13 08:30:00 Test Item Value Reference Range Interpretation Comments Eosinophils (test code = 1.3 See_Comment [A utomated message] The Eosinophils) system which ge nerated this result tra nsmitted reference range : <=4.0. The reference r kendell was not used to int erpret this result as normal/abnormal . [address]05-13 08:30:00 Test Item Value Reference Range Interpretation Comments Basophils (test code = 1.2 See_Comment [Aut omated message] The Basophils) system which ge nerated this result tra nsmitted reference range : <=1.0. The reference r kendell was not used to int erpret this result as normal/abnormal . [place] 324030-05-13 08:30:00 Test Item Value Reference Range Interpretation Comments Neutrophils # (test code = Neutrophils 4.3 1.5-8.1 #) [place] 324030-05-13 08:30:00 Test Item Value Reference Range Interpretation Comments Lymphocytes # (test code = Lymphocytes 1.7 1.0-5.5 #) [place] [address]-05-13 08:30:00 Test Item Value Reference Range Interpretation Comments Monocytes # (test code 0.4 See_Comment [Aut omated message] The = Monocytes #) system which generated this result tra nsmitted reference range : <=0.8. The reference r kendell was not used to int erpret this result as normal/abnormal . [place] [address]-05-13 08:30:00 Test Item Value Reference Range Interpretation Comments Eosinophils # (test code 0.1 See_Comment [A utomated message] The = Eosinophils #) system whic h generated this result tra nsmitted reference range : <=0.5. The reference r kendell was not used to int erpret this result as normal/abnormal . [facility] CampusTalszhoKZZUIDIKMB5087-25-97 08:30:00 Test Item Value Reference Range Interpretation Comments Basophils # (test code 0.1 See_Comment [Aut omated message] The = Basophils #) system which generated this result tra nsmitted reference range : <=0.2. The reference r kendell was not used to int erpret this result as normal/abnormal . [facility]2020-05-13 08:30:00 Test Item Value Reference Range Interpretation Comments Ca Ion WB (test code = Ca Ion WB) 1.14 1.05-1.25 [place] 157290-05-13 08:30:00 Test Item Value Reference Range Interpretation Comments Ca Norm WB (test code = Ca Norm WB) 1.15 1.05-1.25 [facility]2020-05-13 08:30:00 Test Item Value Reference Range Interpretation Comments Glucose Lvl (test code = Glucose Lvl) 100 70-99 [place] 698480-05-13 08:30:00 Test Item Value Reference Range Interpretation Comments BUN (test code = BUN) 12 7-22 [place] [address]-05-13 08:30:00 Test Item Value Reference Range Interpretation Comments Creatinine Lvl (test code = Creatinine 1.03 0.50-1.40 Lvl) [address]05-13 08:30:00 Test Item Value Reference Range Interpretation Comments Sodium Lvl (test code = Sodium Lvl) 135 135-145 [place] [address]-05-13 08:30:00 Test Item Value Reference Range Interpretation Comments Potassium Lvl (test code = Potassium 3.9 3.5-5.1 Lvl) [place] [address]-05-13 08:30:00 Test Item Value Reference Range Interpretation Comments Chloride Lvl (test code = Chloride Lvl) 102 95-109 [place] [address]-05-13 08:30:00 Test Item Value Reference Range Interpretation Comments CO2 (test code = CO2) 26 24-[address]05-13 08:30:00 Test Item Value Reference Range Interpretation Comments Calcium Lvl (test code = Calcium Lvl) 9.4 8.5-10.5 [place] [address]-05-13 08:30:00 Test Item Value Reference Range Interpretation Comments AGAP (test code = AGAP) 10.9 10.0-20.0 [place] [address]-05-13 08:30:00 Test Item Value Reference Range Interpretation Comments eGFR (test code = eGFR) 61 [place] [address]-05-13 08:30:00 Test Item Value Reference Range Interpretation Comments Magnesium Lvl (test code = Magnesium 2.0 1.8-2.4 Lvl) [place] [address]-05-13 08:30:00 Test Item Value Reference Range Interpretation Comments Phosphorus (test code = Phosphorus) 2.6 2.5-4.[address]05-13 08:30:00 Test Item Value Reference Range Interpretation Comments WBC (test code = WBC) 6.6 3.7-10.[address]05-13 08:30:00 Test Item Value Reference Range Interpretation Comments RBC (test code = RBC) 4.11 4.20-5.[address]05-13 08:30:00 Test Item Value Reference Range Interpretation Comments Hgb (test code = Hgb) 13.5 12.0-16.0 [facility] CampusZneyzoaBSHTAXSBAT7287-34-08 08:30:00 Test Item Value Reference Range Interpretation Comments Hct (test code = Hct) 39.7 36.0-48.0 [facility] CampusLeejprfWRQXLZDNJI8459-82-29 08:30:00 Test Item Value Reference Range Interpretation Comments MCV (test code = MCV) 96.7 80.0-98.0 [facility] CampusBjlfypdLUFEWZDTVW1576-87-08 08:30:00 Test Item Value Reference Range Interpretation Comments MCH (test code = MCH) 32.8 pg 27.0-31.0 [facility] CampusRejiypfDCEVKEZEON0842-53-82 08:30:00 Test Item Value Reference Range Interpretation Comments MCHC (test code = MCHC) 33.9 32.0-36.0 [facility] CampusHqjycnhPVOHJGRZZB0384-08-05 08:30:00 Test Item Value Reference Range Interpretation Comments RDW (test code = RDW) 13.3 11.5-14.5 [facility] CampusRcjsusnJBLJTFHCMS4323-93-97 08:30:00 Test Item Value Reference Range Interpretation Comments Platelet (test code = Platelet) 291 133-450 [facility] CampusStujciyCMFCQHHNUF6628-39-94 08:30:00 Test Item Value Reference Range Interpretation Comments MPV (test code = MPV) 8.1 7.4-10.4 [facility] CampusOnyrculTHUWIMGHWZ0821-64-53 08:30:00 Test Item Value Reference Range Interpretation Comments PT (test code = PT) 13.5 s 12.0-14.7 [facility]YrpqjftBGWQWGLHTJ4359-30-99 08:30:00 Test Item Value Reference Range Interpretation Comments INR (test code = INR) 1.03 1 0.85-1.17 [facility] CampusVllcmpuCKTRUIPRWX2904-88-01 08:30:00 Test Item Value Reference Range Interpretation Comments PTT (test code = PTT) 32.1 s 22.9-35.8 [place] [address]-05-13 08:30:00 Test Item Value Reference Range Interpretation Comments Segs (test code = Segs) 65.9 45.0-75.0 [place] [address]-05-13 08:30:00 Test Item Value Reference Range Interpretation Comments Lymphocytes (test code = Lymphocytes) 26.2 20.0-40.0 [place] [address]-05-13 08:30:00 Test Item Value Reference Range Interpretation Comments Monocytes (test code = Monocytes) 5.4 2.0-12.0 [place] [address]-05-13 08:30:00 Test Item Value Reference Range Interpretation Comments Eosinophils (test code = 1.3 See_Comment [A utomated message] The Eosinophils) system which ge nerated this result tra nsmitted reference range : <=4.0. The reference r kendell was not used to int erpret this result as normal/abnormal . [address]05-13 08:30:00 Test Item Value Reference Range Interpretation Comments Basophils (test code = 1.2 See_Comment [Aut omated message] The Basophils) system which ge nerated this result tra nsmitted reference range : <=1.0. The reference r kendell was not used to int erpret this result as normal/abnormal . [place] [address]-05-13 08:30:00 Test Item Value Reference Range Interpretation Comments Neutrophils # (test code = Neutrophils 4.3 1.5-8.1 #) [address]05-13 08:30:00 Test Item Value Reference Range Interpretation Comments Lymphocytes # (test code = Lymphocytes 1.7 1.0-5.5 #) [address]05-13 08:30:00 Test Item Value Reference Range Interpretation Comments Monocytes # (test code 0.4 See_Comment [Aut omated message] The = Monocytes #) system which generated this result tra nsmitted reference range : <=0.8. The reference r kendell was not used to int erpret this result as normal/abnormal . [place] [address]-05-13 08:30:00 Test Item Value Reference Range Interpretation Comments Eosinophils # (test code 0.1 See_Comment [A utomated message] The = Eosinophils #) system whic h generated this result tra nsmitted reference range : <=0.5. The reference r kendell was not used to int erpret this result as normal/abnormal . [place] [address]-05-13 08:30:00 Test Item Value Reference Range Interpretation Comments Basophils # (test code 0.1 See_Comment [Aut omated message] The = Basophils #) system which generated this result tra nsmitted reference range : <=0.2. The reference r kendell was not used to int erpret this result as normal/abnormal . [facility] [id number] 08:30:00 Test Item Value Reference Range Interpretation Comments Ca Ion WB (test code = Ca Ion WB) 1.14 1.05-1.25 [facility] [id number] 08:30:00 Test Item Value Reference Range Interpretation Comments Ca Norm WB (test code = Ca Norm WB) 1.15 1.05-1.25 [facility] TexasFrlgeuqWVBVUQCOVJ0996-40-65 22:50:00 Test Item Value Reference Range Interpretation Comments Coronavirus (COVID-19) Not Detected (03/20/20 CHRIS (test code = 5:50 PM) Coronavirus (COVID-19) CHRIS) [address]05-12 22:50:00 Test Item Value Reference Range Interpretation Comments Coronavirus (COVID-19) Not Detected (03/20/20 CHRIS (test code = 5:50 PM) Coronavirus (COVID-19) CHRIS) [facility] CampusXkxjplaLJOZHESYJM8658-62-76 18:47:00 Test Item Value Reference Range Interpretation Comments Sed Rate (test code = 5 See_Comment [Auto mated message] The Sed Rate) system which ge nerated this result transmit theodore reference range : <=20. The reference range was not used to interpr et this result as david l/abnormal. [facility] TexasOnorqwlEYHDVAKXHS7404-49-20 18:47:00 Test Item Value Reference Range Interpretation Comments HIV Ag/Ab 4th Gen Negative *NA*(03/20/20 (test code = HIV 1:47 PM) Ag/Ab 4th Gen) [place] [address]-05-12 18:47:00 Test Item Value Reference Range Interpretation Comments Treponemal Ab (test code Non-Reactive = Treponemal Ab) *NA*(03/20/20 1:47 PM) [place] [address]-05-12 18:47:00 Test Item Value Reference Range Interpretation Comments C-REACTIVE PROTEIN (test code = 3.3 C-REACTIVE PROTEIN) [facility] TexasHkfaqueOGTSASMBSA6721-68-94 18:47:00 Test Item Value Reference Range Interpretation Comments Hep Bs Ag (test code Negative *NA*(03/20/20 = Hep Bs Ag) 1:47 PM) [facility] TexasBfqzxbtZZMUIQSDPC6608-88-59 18:47:00 Test Item Value Reference Range Interpretation Comments Hep C Ab (test code = Negative *NA*(03/20/20 Hep C Ab) 1:47 PM) [facility] 18:47:00 Test Item Value Reference Range Interpretation Comments Hep B Core IgM (test Negative *NA*(03/20/20 code = Hep B Core 1:47 PM) IgM) [facility] TexasKprpklyAROABASWCN1099-75-92 18:47:00 Test Item Value Reference Range Interpretation Comments Hep A IgM (test code Negative *NA*(03/20/20 = Hep A IgM) 1:47 PM) [facility] CampusHhydweoFSQLDVLREA4429-77-29 18:47:00 Test Item Value Reference Range Interpretation Comments Sed Rate (test code = 5 See_Comment [Auto mated message] The Sed Rate) system which ge nerated this result transmit theodore reference range : <=20. The reference range was not used to interpr et this result as david l/abnormal. [facility] TexasCdskdejEZOYCUWRAO1056-63-61 18:47:00 Test Item Value Reference Range Interpretation Comments HIV Ag/Ab 4th Gen Negative *NA*(03/20/20 (test code = HIV 1:47 PM) Ag/Ab 4th Gen) [place] [address]-05-12 18:47:00 Test Item Value Reference Range Interpretation Comments Treponemal Ab (test code Non-Reactive = Treponemal Ab) *NA*(03/20/20 1:47 PM) [facility] TexasBdhmofeYJRVDCZVLT9198-71-35 18:47:00 Test Item Value Reference Range Interpretation Comments C-REACTIVE PROTEIN (test code = 3.3 C-REACTIVE PROTEIN) [facility] TexasBnznwjjETOXVJODMR6415-85-29 18:47:00 Test Item Value Reference Range Interpretation Comments Hep Bs Ag (test code Negative *NA*(03/20/20 = Hep Bs Ag) 1:47 PM) [place] [address]-05-12 18:47:00 Test Item Value Reference Range Interpretation Comments Hep C Ab (test code = Negative *NA*(03/20/20 Hep C Ab) 1:47 PM) [place] [address]-05-12 18:47:00 Test Item Value Reference Range Interpretation Comments Hep B Core IgM (test Negative *NA*(03/20/20 code = Hep B Core 1:47 PM) IgM) [place] [address]-05-12 18:47:00 Test Item Value Reference Range Interpretation Comments Hep A IgM (test code Negative *NA*(03/20/20 = Hep A IgM) 1:47 PM) [place] 698480-05-12 05:27:00 Test Item Value Reference Range Interpretation Comments Magnesium Lvl (test code = Magnesium 2.0 1.8-2.4 Lvl) [place] 698480-05-12 05:27:00 Test Item Value Reference Range Interpretation Comments Glucose Lvl (test code = Glucose Lvl) 102 70-99 [facility]2020-05-12 05:27:00 Test Item Value Reference Range Interpretation Comments BUN (test code = BUN) 13 7-22 [place] 698480-05-12 05:27:00 Test Item Value Reference Range Interpretation Comments Creatinine Lvl (test code = Creatinine 0.68 0.50-1.40 Lvl) [facility]2020-05-12 05:27:00 Test Item Value Reference Range Interpretation Comments Sodium Lvl (test code = Sodium Lvl) 140 135-145 [facility]2020-05-12 05:27:00 Test Item Value Reference Range Interpretation Comments Potassium Lvl (test code = Potassium 3.3 3.5-5.1 Lvl) [facility]2020-05-12 05:27:00 Test Item Value Reference Range Interpretation Comments Chloride Lvl (test code = Chloride Lvl) 107 95-109 [place] [address]-05-12 05:27:00 Test Item Value Reference Range Interpretation Comments CO2 (test code = CO2) 24 24-32 [place] 698480-05-12 05:27:00 Test Item Value Reference Range Interpretation Comments AGAP (test code = AGAP) 12.3 10.0-20.0 [place] 698480-05-12 05:27:00 Test Item Value Reference Range Interpretation Comments Calcium Lvl (test code = Calcium Lvl) 8.8 8.5-10.5 [place] 698480-05-12 05:27:00 Test Item Value Reference Range Interpretation Comments eGFR (test code = eGFR) 99 [facility] [id number] 05:27:00 Test Item Value Reference Range Interpretation Comments Phosphorus (test code = Phosphorus) 2.5 2.5-4.5 [place] [address]-05-12 05:27:00 Test Item Value Reference Range Interpretation Comments Hgb (test code = Hgb) 13.8 12.0-16.0 [place] [address]-05-12 05:27:00 Test Item Value Reference Range Interpretation Comments WBC (test code = WBC) 9.5 3.7-10.4 [place] [address]-05-12 05:27:00 Test Item Value Reference Range Interpretation Comments RBC (test code = RBC) 4.25 4.20-5.40 [place] [address]-05-12 05:27:00 Test Item Value Reference Range Interpretation Comments Hgb (test code = Hgb) 13.5 12.0-16.0 [place] [address]-05-12 05:27:00 Test Item Value Reference Range Interpretation Comments Hct (test code = Hct) 40.2 36.0-48.0 [place] [address]-05-12 05:27:00 Test Item Value Reference Range Interpretation Comments MCV (test code = MCV) 94.7 80.0-98.0 [place] [address]-05-12 05:27:00 Test Item Value Reference Range Interpretation Comments MCH (test code = MCH) 31.7 pg 27.0-31.0 [place] [address]-05-12 05:27:00 Test Item Value Reference Range Interpretation Comments MCHC (test code = MCHC) 33.5 32.0-36.0 [place] [address]-05-12 05:27:00 Test Item Value Reference Range Interpretation Comments RDW (test code = RDW) 13.2 11.5-14.5 [facility] CampusNfocdevJDNUHQVOCQ6075-88-06 05:27:00 Test Item Value Reference Range Interpretation Comments Platelet (test code = Platelet) 256 133-450 [facility] CampusGztrmdzADPEFCWBHW0209-46-99 05:27:00 Test Item Value Reference Range Interpretation Comments MPV (test code = MPV) 7.2 7.4-10.4 [place] [address]-05-12 05:27:00 Test Item Value Reference Range Interpretation Comments Segs (test code = Segs) 75.4 45.0-75.0 [facility] CampusZnkdkzbWGMCBWMQFC4140-47-38 05:27:00 Test Item Value Reference Range Interpretation Comments Lymphocytes (test code = Lymphocytes) 16.6 20.0-40.0 [place] 324030-05-12 05:27:00 Test Item Value Reference Range Interpretation Comments Monocytes (test code = Monocytes) 7.3 2.0-12.0 [place] [address]-05-12 05:27:00 Test Item Value Reference Range Interpretation Comments Eosinophils (test code = 0.1 See_Comment [A utomated message] The Eosinophils) system which ge nerated this result tra nsmitted reference range : <=4.0. The reference r kendell was not used to int erpret this result as normal/abnormal . [facility] CampusRebxrscNHOWDUJFHN2824-87-44 05:27:00 Test Item Value Reference Range Interpretation Comments Basophils (test code = 0.6 See_Comment [Aut omated message] The Basophils) system which ge nerated this result tra nsmitted reference range : <=1.0. The reference r kendell was not used to int erpret this result as normal/abnormal . [facility] CampusHrejeiwNEWMSVJUNK3735-84-61 05:27:00 Test Item Value Reference Range Interpretation Comments Neutrophils # (test code = Neutrophils 7.1 1.5-8.1 #) [facility] CampusRlrqctvQKMNXRDXYS2729-99-02 05:27:00 Test Item Value Reference Range Interpretation Comments Lymphocytes # (test code = Lymphocytes 1.6 1.0-5.5 #) [place] [address]-05-12 05:27:00 Test Item Value Reference Range Interpretation Comments Monocytes # (test code 0.7 See_Comment [Aut omated message] The = Monocytes #) system which generated this result tra nsmitted reference range : <=0.8. The reference r kendell was not used to int erpret this result as normal/abnormal . [place] [address]-05-12 05:27:00 Test Item Value Reference Range Interpretation Comments Basophils # (test code 0.1 See_Comment [Aut omated message] The = Basophils #) system which generated this result tra nsmitted reference range : <=0.2. The reference r kendell was not used to int erpret this result as normal/abnormal . [facility] MSJQFJW9404[facility]-13 05:27:00 Test Item Value Reference Range Interpretation Comments Ca Ion WB (test code = Ca Ion WB) 1.11 1.05-1.[address] [facility] HospitalATHY[facility]ID [id number] 05:27:00 Test Item Value Reference Range Interpretation Comments Ca Norm WB (test code = Ca Norm WB) 1.13 1.05-1.25 [facility] TexasRankingHero [id number] 05:27:00 Test Item Value Reference Range Interpretation Comments Magnesium Lvl (test code = Magnesium 2.0 1.8-2.4 Lvl) [facility]2020-05-12 05:27:00 Test Item Value Reference Range Interpretation Comments Glucose Lvl (test code = Glucose Lvl) 102 70-99 [facility]2020-05-12 05:27:00 Test Item Value Reference Range Interpretation Comments BUN (test code = BUN) 13 7-22 [place] 698480-05-12 05:27:00 Test Item Value Reference Range Interpretation Comments Creatinine Lvl (test code = Creatinine 0.68 0.50-1.40 Lvl) [facility]2020-05-12 05:27:00 Test Item Value Reference Range Interpretation Comments Sodium Lvl (test code = Sodium Lvl) 140 135-145 [facility]2020-05-12 05:27:00 Test Item Value Reference Range Interpretation Comments Potassium Lvl (test code = Potassium 3.3 3.5-5.1 Lvl) [place] [address]8480-05-12 05:27:00 Test Item Value Reference Range Interpretation Comments Chloride Lvl (test code = Chloride Lvl) 107 95-109 [facility]2020-05-12 05:27:00 Test Item Value Reference Range Interpretation Comments CO2 (test code = CO2) 24 24-32 [place] 698480-05-12 05:27:00 Test Item Value Reference Range Interpretation Comments AGAP (test code = AGAP) 12.3 10.0-20.0 [facility]2020-05-12 05:27:00 Test Item Value Reference Range Interpretation Comments Calcium Lvl (test code = Calcium Lvl) 8.8 8.5-10.5 [facility] [id number] 05:27:00 Test Item Value Reference Range Interpretation Comments eGFR (test code = eGFR) 99 [facility] [id number] 05:27:00 Test Item Value Reference Range Interpretation Comments Phosphorus (test code = Phosphorus) 2.5 2.5-4.5 [facility] CampusHhvufwbNPHCYHNHTL6520-84-03 05:27:00 Test Item Value Reference Range Interpretation Comments Hgb (test code = Hgb) 13.8 12.0-16.0 [place] [address]-05-12 05:27:00 Test Item Value Reference Range Interpretation Comments WBC (test code = WBC) 9.5 3.7-10.4 [place] [address]-05-12 05:27:00 Test Item Value Reference Range Interpretation Comments RBC (test code = RBC) 4.25 4.20-5.40 [place] [address]-05-12 05:27:00 Test Item Value Reference Range Interpretation Comments Hgb (test code = Hgb) 13.5 12.0-16.0 [place] [address]-05-12 05:27:00 Test Item Value Reference Range Interpretation Comments Hct (test code = Hct) 40.2 36.0-48.0 [place] [address]-05-12 05:27:00 Test Item Value Reference Range Interpretation Comments MCV (test code = MCV) 94.7 80.0-98.0 [place] [address]-05-12 05:27:00 Test Item Value Reference Range Interpretation Comments MCH (test code = MCH) 31.7 pg 27.0-31.0 [place] [address]-05-12 05:27:00 Test Item Value Reference Range Interpretation Comments MCHC (test code = MCHC) 33.5 32.0-36.0 [place] 324030-05-12 05:27:00 Test Item Value Reference Range Interpretation Comments RDW (test code = RDW) 13.2 11.5-14.5 [place] 324030-05-12 05:27:00 Test Item Value Reference Range Interpretation Comments Platelet (test code = Platelet) 256 133-450 [facility] CampusOyfpptuPGUUPHCEZC1804-47-90 05:27:00 Test Item Value Reference Range Interpretation Comments MPV (test code = MPV) 7.2 7.4-10.4 [facility] CampusMpqiakmMSDHTPQXVT1844-04-05 05:27:00 Test Item Value Reference Range Interpretation Comments Segs (test code = Segs) 75.4 45.0-75.0 [facility] CampusFlxdivdMIYHQYDFYP7526-52-29 05:27:00 Test Item Value Reference Range Interpretation Comments Lymphocytes (test code = Lymphocytes) 16.6 20.0-40.0 [facility] CampusXwjumlzBNFSMLXEDC6961-39-32 05:27:00 Test Item Value Reference Range Interpretation Comments Monocytes (test code = Monocytes) 7.3 2.0-12.0 [facility] CampusAlzoyjoARJTAIIADU9110-88-74 05:27:00 Test Item Value Reference Range Interpretation Comments Eosinophils (test code = 0.1 See_Comment [A utomated message] The Eosinophils) system which ge nerated this result tra nsmitted reference range : <=4.0. The reference r kendell was not used to int erpret this result as normal/abnormal . [facility] CampusCmfbkkaUVVWRMMPLY4368-77-94 05:27:00 Test Item Value Reference Range Interpretation Comments Basophils (test code = 0.6 See_Comment [Aut omated message] The Basophils) system which ge nerated this result tra nsmitted reference range : <=1.0. The reference r kendell was not used to int erpret this result as normal/abnormal . [facility] CampusFubbputQEMHEIAEPV4201-06-41 05:27:00 Test Item Value Reference Range Interpretation Comments Neutrophils # (test code = Neutrophils 7.1 1.5-8.1 #) [facility] CampusMmwruutJBHNJPGKYG6507-49-63 05:27:00 Test Item Value Reference Range Interpretation Comments Lymphocytes # (test code = Lymphocytes 1.6 1.0-5.5 #) [facility] CampusXzdgggkLOQWMXWUIE3794-25-33 05:27:00 Test Item Value Reference Range Interpretation Comments Monocytes # (test code 0.7 See_Comment [Aut omated message] The = Monocytes #) system which generated this result tra nsmitted reference range : <=0.8. The reference r kendell was not used to int erpret this result as normal/abnormal . [place] 324030-05-12 05:27:00 Test Item Value Reference Range Interpretation Comments Basophils # (test code 0.1 See_Comment [Aut omated message] The = Basophils #) system which generated this result tra nsmitted reference range : <=0.2. The reference r kendell was not used to int erpret this result as normal/abnormal . [facility]annPAR[facility] [id number] 05:27:00 Test Item Value Reference Range Interpretation Comments Ca Ion WB (test code = Ca Ion WB) 1.11 1.05-1.25 [facility] [id number] 05:27:00 Test Item Value Reference Range Interpretation Comments Ca Norm WB (test code = Ca Norm WB) 1.13 1.05-1.25 [facility]annCARDIAC [id number] 17:26:00 Test Item Value Reference Range Interpretation Comments Troponin-I (test code 0.10 See_Comment [Auto mated message] The = Troponin-I) system which g enerated this result transmit theodore reference range : <=0.40. The reference r kendell was not used to interpr et this result as david l/abnormal. [facility] [id number] 17:26:00 Test Item Value Reference Range Interpretation Comments U Amph Scr (test code Negative *NA*(03/19/20 = U Amph Scr) 12:26 PM) [facility] [id number] 17:26:00 Test Item Value Reference Range Interpretation Comments U Parisa Scr (test code Negative *NA*(03/19/20 = U Parisa Scr) 12:26 PM) [facility] [id number] 17:26:00 Test Item Value Reference Range Interpretation Comments U Benzodiaz Scr (test Positive *ABN*(03/19/20 code = U Benzodiaz Scr) 12:26 PM) [facility] [id number] 17:26:00 Test Item Value Reference Range Interpretation Comments U Cannab Scr (test Negative *NA*(03/19/20 code = U Cannab Scr) 12:26 PM) [facility] [id number] 17:26:00 Test Item Value Reference Range Interpretation Comments U Cocaine Scr (test Negative *NA*(03/19/20 code = U Cocaine Scr) 12:26 PM) [facility] [id number] 17:26:00 Test Item Value Reference Range Interpretation Comments U Opiate Scr (test Positive *ABN*(03/19/20 code = U Opiate Scr) 12:26 PM) [facility] [id number] 17:26:00 Test Item Value Reference Range Interpretation Comments U Phencyclidine Scr (test Negative code = U Phencyclidine *NA*(03/19/20 12:26 Scr) PM) [facility] [id number] 17:26:00 Test Item Value Reference Range Interpretation Comments UDS Note (test code = See Note (03/19/20 12:26 UDS Note) PM) [facility]CARDI[facility] [id number] 17:26:00 Test Item Value Reference Range Interpretation Comments Troponin-I (test code 0.10 See_Comment [Auto mated message] The = Troponin-I) system which g enerated this result transmit theodore reference range : <=0.40. The reference r kendell was not used to interpr et this result as david l/abnormal. [facility] [id number] 17:26:00 Test Item Value Reference Range Interpretation Comments U Amph Scr (test code Negative *NA*(03/19/20 = U Amph Scr) 12:26 PM) [facility] [id number] 17:26:00 Test Item Value Reference Range Interpretation Comments U Parisa Scr (test code Negative *NA*(03/19/20 = U Parisa Scr) 12:26 PM) [facility] [id number] 17:26:00 Test Item Value Reference Range Interpretation Comments U Benzodiaz Scr (test Positive *ABN*(03/19/20 code = U Benzodiaz Scr) 12:26 PM) [facility] [id number] 17:26:00 Test Item Value Reference Range Interpretation Comments U Cannab Scr (test Negative *NA*(03/19/20 code = U Cannab Scr) 12:26 PM) [facility] [id number] 17:26:00 Test Item Value Reference Range Interpretation Comments U Cocaine Scr (test Negative *NA*(03/19/20 code = U Cocaine Scr) 12:26 PM) [facility] [id number] 17:26:00 Test Item Value Reference Range Interpretation Comments U Opiate Scr (test Positive *ABN*(03/19/20 code = U Opiate Scr) 12:26 PM) [facility]DR[facility] [id number] 17:26:00 Test Item Value Reference Range Interpretation Comments U Phencyclidine Scr (test Negative code = U Phencyclidine *NA*(03/19/20 12:26 Scr) PM) [facility]annDR[facility] [id number] 17:26:00 Test Item Value Reference Range Interpretation Comments UDS Note (test code = See Note (03/19/20 12:26 UDS Note) PM) [facility] AmericaLuxirncPDMNSFAWDN0413-18-71 13:42:00 Test Item Value Reference Range Interpretation Comments PT (test code = PT) 11.7 s 12.0-14.7 [facility] AmericaKmfjvpqGLARJCTNAB0239-90-85 13:42:00 Test Item Value Reference Range Interpretation Comments INR (test code = INR) 0.86 1 0.85-1.17 [facility] AmericaQugnokvPKLLSLTDLN3327-13-59 13:42:00 Test Item Value Reference Range Interpretation Comments PTT (test code = PTT) 20.7 s 22.9-35.8 [facility] AmericaYnwbyloVJBOWUIYVW3673-92-60 13:42:00 Test Item Value Reference Range Interpretation Comments PT (test code = PT) 11.7 s 12.0-14.7 [facility] AmericaVgqriueJCOFVKMWJB0979-51-60 13:42:00 Test Item Value Reference Range Interpretation Comments INR (test code = INR) 0.86 1 0.85-1.17 [facility] AmericaBagpspzEBXMAZSHNN0146-57-07 13:42:00 Test Item Value Reference Range Interpretation Comments PTT (test code = PTT) 20.7 s 22.9-35.8 [facility] AmericaannDR[facility] [id number] 13:31:00 Test Item Value Reference Range Interpretation Comments Phencyclidine Scr (test code = Negative Phencyclidine Scr) [facility] AmericaannDR[facility] [id number] 13:31:00 Test Item Value Reference Range Interpretation Comments Parisa Scr (test code = Parisa Scr) Negative [facility] AmericaannDR[facility] [id number] 13:31:00 Test Item Value Reference Range Interpretation Comments Cannab Scr (test code = Cannab Scr) Negative [facility] AmericaannDR[facility] [id number] 13:31:00 Test Item Value Reference Range Interpretation Comments Methadone Scr (test code = Methadone Negative Scr) [facility] [id number] 13:31:00 Test Item Value Reference Range Interpretation Comments Cocaine Scr (test code = Cocaine Negative Scr) [facility] [id number] 13:31:00 Test Item Value Reference Range Interpretation Comments Benzodiaz Scr (test code = Benzodiaz Positive Scr) [facility] [id number] 13:31:00 Test Item Value Reference Range Interpretation Comments Amph Scr (test code = Amph Scr) Negative [facility] [id number] 13:31:00 Test Item Value Reference Range Interpretation Comments Opiate Scr (test code = Opiate Scr) Positive [facility] [id number] 13:31:00 Test Item Value Reference Range Interpretation Comments 6-Acetylmor Scr (test code = Negative 6-Acetylmor Scr) [facility] [id number] 13:31:00 Test Item Value Reference Range Interpretation Comments Benzodiaz Qnt (test code = Benzodiaz Negative Qnt) [facility] [id number] 13:31:00 Test Item Value Reference Range Interpretation Comments Opiate Qnt (test code = Opiate Qnt) Positive [facility] [id number] 13:31:00 Test Item Value Reference Range Interpretation Comments Phencyclidine Scr (test code = Negative Phencyclidine Scr) [facility] [id number] 13:31:00 Test Item Value Reference Range Interpretation Comments Parisa Scr (test code = Parisa Scr) Negative [facility] [id number] 13:31:00 Test Item Value Reference Range Interpretation Comments Cannab Scr (test code = Cannab Scr) Negative [facility] [id number] 13:31:00 Test Item Value Reference Range Interpretation Comments Methadone Scr (test code = Methadone Negative Scr) [facility] [id number] 13:31:00 Test Item Value Reference Range Interpretation Comments Cocaine Scr (test code = Cocaine Negative Scr) [facility] [id number] 13:31:00 Test Item Value Reference Range Interpretation Comments Benzodiaz Scr (test code = Benzodiaz Positive Scr) [facility] [id number] 13:31:00 Test Item Value Reference Range Interpretation Comments Amph Scr (test code = Amph Scr) Negative [facility] [id number] 13:31:00 Test Item Value Reference Range Interpretation Comments Opiate Scr (test code = Opiate Scr) Positive [facility] [id number] 13:31:00 Test Item Value Reference Range Interpretation Comments 6-Acetylmor Scr (test code = Negative 6-Acetylmor Scr) [facility] [id number] 13:31:00 Test Item Value Reference Range Interpretation Comments Benzodiaz Qnt (test code = Benzodiaz Negative Qnt) [facility] [id number] 13:31:00 Test Item Value Reference Range Interpretation Comments Opiate Qnt (test code = Opiate Qnt) Positive [facility] [id number] 12:30:00 Test Item Value Reference Range Interpretation Comments B/C Ratio (test code = B/C Ratio) 22 1 6-25 [facility] [id number] 12:30:00 Test Item Value Reference Range Interpretation Comments ALT (test code = ALT) 46 See_Comment [Auto mated message] The system which ge nerated this result transmit theodore reference range : <=65. The reference range was not used to interpr et this result as david l/abnormal. [facility] [id number] 12:30:00 Test Item Value Reference Range Interpretation Comments Albumin Lvl (test code = Albumin Lvl) 3.7 3.5-5.0 [facility] [id number] 12:30:00 Test Item Value Reference Range Interpretation Comments Alk Phos (test code = Alk Phos) 102 39-136 [facility] [id number] 12:30:00 Test Item Value Reference Range Interpretation Comments Total Protein (test code = Total 7.0 6.4-8.4 Protein) [facility] [id number] 12:30:00 Test Item Value Reference Range Interpretation Comments Globulin (test code = Globulin) 3.3 2.7-4.2 [facility] [id number] 12:30:00 Test Item Value Reference Range Interpretation Comments A/G Ratio (test code = A/G Ratio) 1.1 1 0.7-1.6 [facility] [id number] 12:30:00 Test Item Value Reference Range Interpretation Comments AST (test code = AST) 47 See_Comment [Auto mated message] The system which ge nerated this result transmit theodore reference range : <=37. The reference range was not used to interpr et this result as david l/abnormal. [facility] [id number] 12:30:00 Test Item Value Reference Range Interpretation Comments Bili Total (test code = Bili Total) 1.2 0.2-1.3 [facility] [id number] 12:30:00 Test Item Value Reference Range Interpretation Comments RBC Morph (test code = Normal (03/19/20 7:30 RBC Morph) AM) [facility] [id number] 12:30:00 Test Item Value Reference Range Interpretation Comments Plt Morph (test code = Normal (03/19/20 7:30 Plt Morph) AM) [facility] [id number] 12:30:00 Test Item Value Reference Range Interpretation Comments Basophils # (test code 0.1 See_Comment [Aut omated message] The = Basophils #) system which generated this result tra nsmitted reference range : <=0.2. The reference r kendell was not used to int erpret this result as normal/abnormal . [facility] [id number] 12:30:00 Test Item Value Reference Range Interpretation Comments B/C Ratio (test code = B/C Ratio) 22 1 6-25 [facility] [id number] 12:30:00 Test Item Value Reference Range Interpretation Comments ALT (test code = ALT) 46 See_Comment [Auto mated message] The system which ge nerated this result transmit theodore reference range : <=65. The reference range was not used to interpr et this result as david l/abnormal. [facility] [id number] 12:30:00 Test Item Value Reference Range Interpretation Comments Albumin Lvl (test code = Albumin Lvl) 3.7 3.5-5.0 [facility] [id number] 12:30:00 Test Item Value Reference Range Interpretation Comments Alk Phos (test code = Alk Phos) 102 39-136 [facility] [id number] 12:30:00 Test Item Value Reference Range Interpretation Comments Total Protein (test code = Total 7.0 6.4-8.4 Protein) [facility] [id number] 12:30:00 Test Item Value Reference Range Interpretation Comments Globulin (test code = Globulin) 3.3 2.7-4.2 [facility] [id number] 12:30:00 Test Item Value Reference Range Interpretation Comments A/G Ratio (test code = A/G Ratio) 1.1 1 0.7-1.6 [facility] [id number] 12:30:00 Test Item Value Reference Range Interpretation Comments AST (test code = AST) 47 See_Comment [Auto mated message] The system which ge nerated this result transmit theodore reference range : <=37. The reference range was not used to interpr et this result as david l/abnormal. [facility] [id number] 12:30:00 Test Item Value Reference Range Interpretation Comments Bili Total (test code = Bili Total) 1.2 0.2-1.3 [facility] [id number] 12:30:00 Test Item Value Reference Range Interpretation Comments RBC Morph (test code = Normal (03/19/20 7:30 RBC Morph) AM) [facility] [id number] 12:30:00 Test Item Value Reference Range Interpretation Comments Plt Morph (test code = Normal (03/19/20 7:30 Plt Morph) AM) [facility] [id number] 12:30:00 Test Item Value Reference Range Interpretation Comments Basophils # (test code 0.1 See_Comment [Aut omated message] The = Basophils #) system which generated this result tra nsmitted reference range : <=0.2. The reference r kendell was not used to int erpret this result as normal/abnormal . [facility] TexasCARD[facility] [id number] 12:28:00 Test Item Value Reference Range Interpretation Comments Troponin-I (test code 0.41 See_Comment [Auto mated message] The = Troponin-I) system which g enerated this result transmit theodore reference range : <=0.40. The reference r kendell was not used to interpr et this result as david l/abnormal. [facility] [id number] 12:28:00 Test Item Value Reference Range Interpretation Comments Hgb A1C (test code = Hgb A1C) 4.9 [facility] AmericaSonogenixAC [id number] 12:28:00 Test Item Value Reference Range Interpretation Comments Troponin-I (test code 0.41 See_Comment [Auto mated message] The = Troponin-I) system which g enerated this result transmit theodore reference range : <=0.40. The reference r kendell was not used to interpr et this result as david l/abnormal. [facility] [id number] 12:28:00 Test Item Value Reference Range Interpretation Comments Hgb A1C (test code = Hgb A1C) 4.9 [facility] [id number] 05:33:00 Test Item Value Reference Range Interpretation Comments Troponin-I (test code 0.52 See_Comment [Auto mated message] The = Troponin-I) system which g enerated this result transmit theodore reference range : <=0.40. The reference r kendell was not used to interpr et this result as david l/abnormal. [facility]Eyel[facility] [id number] 05:33:00 Test Item Value Reference Range Interpretation Comments Total CK (test code = Total CK) 198 12-191 [facility] [id number] 05:33:00 Test Item Value Reference Range Interpretation Comments Glucose Lvl (test code = Glucose Lvl) 106 70-99 [facility]Ranking[facility] [id number] 05:33:00 Test Item Value Reference Range Interpretation Comments BUN (test code = BUN) 21 7-22 [facility] [id number] 05:33:00 Test Item Value Reference Range Interpretation Comments Creatinine Lvl (test code = Creatinine 1.02 0.50-1.40 Lvl) [facility] [id number] 05:33:00 Test Item Value Reference Range Interpretation Comments Sodium Lvl (test code = Sodium Lvl) 139 135-145 [facility] [id number] 05:33:00 Test Item Value Reference Range Interpretation Comments Potassium Lvl (test code = Potassium 3.8 3.5-5.1 Lvl) [facility] [id number] 05:33:00 Test Item Value Reference Range Interpretation Comments Chloride Lvl (test code = Chloride Lvl) 107 95-109 [place] [address]-05-11 05:33:00 Test Item Value Reference Range Interpretation Comments CO2 (test code = CO2) 24 24-32 [place] [address]-05-11 05:33:00 Test Item Value Reference Range Interpretation Comments Calcium Lvl (test code = Calcium Lvl) 9.1 8.5-10.5 [place] [address]-05-11 05:33:00 Test Item Value Reference Range Interpretation Comments Total Protein (test code = Total 7.4 6.4-8.4 Protein) [place] [address]-05-11 05:33:00 Test Item Value Reference Range Interpretation Comments Albumin Lvl (test code = Albumin Lvl) 3.9 3.5-5.0 [place] [address]-05-11 05:33:00 Test Item Value Reference Range Interpretation Comments ALT (test code = ALT) 48 See_Comment [Auto mated message] The system which ge nerated this result transmit theodore reference range : <=65. The reference range was not used to interpr et this result as david l/abnormal. [place] 698480-05-11 05:33:00 Test Item Value Reference Range Interpretation Comments AST (test code = AST) 44 See_Comment [Auto mated message] The system which ge nerated this result transmit theodore reference range : <=37. The reference range was not used to interpr et this result as david l/abnormal. [place] 698480-05-11 05:33:00 Test Item Value Reference Range Interpretation Comments Alk Phos (test code = Alk Phos) 106 39-136 [place] 698480-05-11 05:33:00 Test Item Value Reference Range Interpretation Comments Bili Total (test code = Bili Total) 1.1 0.2-1.3 [place] [address]-05-11 05:33:00 Test Item Value Reference Range Interpretation Comments AGAP (test code = AGAP) 11.8 10.0-20.0 [place] [address]-05-11 05:33:00 Test Item Value Reference Range Interpretation Comments B/C Ratio (test code = B/C Ratio) 21 1 6-25 [place] [address]-05-11 05:33:00 Test Item Value Reference Range Interpretation Comments Globulin (test code = Globulin) 3.5 2.7-4.2 [place] 698480-05-11 05:33:00 Test Item Value Reference Range Interpretation Comments A/G Ratio (test code = A/G Ratio) 1.1 1 0.7-1.6 [place] [address]-05-11 05:33:00 Test Item Value Reference Range Interpretation Comments eGFR (test code = eGFR) 62 [place] 698480-05-11 05:33:00 Test Item Value Reference Range Interpretation Comments Magnesium Lvl (test code = Magnesium 2.1 1.8-2.4 Lvl) [place] 698480-05-11 05:33:00 Test Item Value Reference Range Interpretation Comments Phosphorus (test code = Phosphorus) 2.6 2.5-4.5 [place] [address]-05-11 05:33:00 Test Item Value Reference Range Interpretation Comments WBC (test code = WBC) 11.4 3.7-10.4 [place] 324030-05-11 05:33:00 Test Item Value Reference Range Interpretation Comments RBC (test code = RBC) 4.44 4.20-5.40 [place] [address]-05-11 05:33:00 Test Item Value Reference Range Interpretation Comments Hgb (test code = Hgb) 14.7 12.0-16.0 [place] [address]-05-11 05:33:00 Test Item Value Reference Range Interpretation Comments Hct (test code = Hct) 42.4 36.0-48.0 [place] [address]-05-11 05:33:00 Test Item Value Reference Range Interpretation Comments MCV (test code = MCV) 95.5 80.0-98.0 [place] [address]-05-11 05:33:00 Test Item Value Reference Range Interpretation Comments MCH (test code = MCH) 33.1 pg 27.0-31.0 [place] [address]-05-11 05:33:00 Test Item Value Reference Range Interpretation Comments MCHC (test code = MCHC) 34.6 32.0-36.0 [place] [address]-05-11 05:33:00 Test Item Value Reference Range Interpretation Comments RDW (test code = RDW) 13.0 11.5-14.5 [id number] 05:33:00 Test Item Value Reference Range Interpretation Comments Platelet (test code = Platelet) 233 133-450 [facility] CampusMtiambsVECVYODQKI0757-27-50 05:33:00 Test Item Value Reference Range Interpretation Comments MPV (test code = MPV) 7.1 7.4-10.4 [facility] CampusEihtudwRNMMNVVHXY2825-11-85 05:33:00 Test Item Value Reference Range Interpretation Comments PT (test code = PT) 11.5 s 12.0-14.7 [facility] CampusBkgzfjjMDLREHWCGL4879-41-13 05:33:00 Test Item Value Reference Range Interpretation Comments INR (test code = INR) 0.84 1 0.85-1.17 [facility] CampusZmmrsqgKFYZDVZOLY9266-95-52 05:33:00 Test Item Value Reference Range Interpretation Comments PTT (test code = PTT) 27.7 s 22.9-35.8 [facility] CampusPucsbhbJKMGMRWDVF1998-25-65 05:33:00 Test Item Value Reference Range Interpretation Comments Segs (test code = Segs) 80.1 45.0-75.0 [facility] CampusAwxulkzXASFTWDEQM7473-07-71 05:33:00 Test Item Value Reference Range Interpretation Comments Lymphocytes (test code = Lymphocytes) 13.1 20.0-40.0 [facility] CampusDbcwuwaZTMUKILGRJ6635-95-35 05:33:00 Test Item Value Reference Range Interpretation Comments Monocytes (test code = Monocytes) 6.2 2.0-12.0 [facility] CampusMywwrvsLHKZRGRTOT0550-96-42 05:33:00 Test Item Value Reference Range Interpretation Comments Basophils (test code = 0.6 See_Comment [Aut omated message] The Basophils) system which ge nerated this result tra nsmitted reference range : <=1.0. The reference r kendell was not used to int erpret this result as normal/abnormal . [facility] CampusQpeiqohRKRTIVMVUM7600-55-64 05:33:00 Test Item Value Reference Range Interpretation Comments Neutrophils # (test code = Neutrophils 9.2 1.5-8.1 #) [facility] CampusWusftzrVTOJXYJUIX4566-79-47 05:33:00 Test Item Value Reference Range Interpretation Comments Lymphocytes # (test code = Lymphocytes 1.5 1.0-5.5 #) [facility] CampusLsrngksZLSSIMXEZO6370-38-47 05:33:00 Test Item Value Reference Range Interpretation Comments Monocytes # (test code 0.7 See_Comment [Aut omated message] The = Monocytes #) system which generated this result tra nsmitted reference range : <=0.8. The reference r kendell was not used to int erpret this result as normal/abnormal . [facility] AmericaFbmamduLOWYGKZNIG8816-42-11 05:33:00 Test Item Value Reference Range Interpretation Comments Basophils # (test code 0.1 See_Comment [Aut omated message] The = Basophils #) system which generated this result tra nsmitted reference range : <=0.2. The reference r kendell was not used to int erpret this result as normal/abnormal . [facility] AmericaYouMail2020-05-11 05:33:00 Test Item Value Reference Range Interpretation Comments Troponin-I (test code 0.52 See_Comment [Auto mated message] The = Troponin-I) system which g enerated this result transmit theodore reference range : <=0.40. The reference r kendell was not used to interpr et this result as david l/abnormal. [facility] AmericaYouMail2020-05-11 05:33:00 Test Item Value Reference Range Interpretation Comments Total CK (test code = Total CK) 198 12-191 [facility] [id number] 05:33:00 Test Item Value Reference Range Interpretation Comments Glucose Lvl (test code = Glucose Lvl) 106 70-99 [facility] [id number] 05:33:00 Test Item Value Reference Range Interpretation Comments BUN (test code = BUN) 21 7-22 [facility] [id number] 05:33:00 Test Item Value Reference Range Interpretation Comments Creatinine Lvl (test code = Creatinine 1.02 0.50-1.40 Lvl) [facility] Hybrent2020-05-11 05:33:00 Test Item Value Reference Range Interpretation Comments Sodium Lvl (test code = Sodium Lvl) 139 135-145 [facility] [id number] 05:33:00 Test Item Value Reference Range Interpretation Comments Potassium Lvl (test code = Potassium 3.8 3.5-5.1 Lvl) [facility] [id number] 05:33:00 Test Item Value Reference Range Interpretation Comments Chloride Lvl (test code = Chloride Lvl) 107 95-109 [facility] [id number] 05:33:00 Test Item Value Reference Range Interpretation Comments CO2 (test code = CO2) 24 24-32 [facility] [id number] 05:33:00 Test Item Value Reference Range Interpretation Comments Calcium Lvl (test code = Calcium Lvl) 9.1 8.5-10.5 [facility] [id number] 05:33:00 Test Item Value Reference Range Interpretation Comments Total Protein (test code = Total 7.4 6.4-8.4 Protein) [facility] [id number] 05:33:00 Test Item Value Reference Range Interpretation Comments Albumin Lvl (test code = Albumin Lvl) 3.9 3.5-5.0 [facility] [id number] 05:33:00 Test Item Value Reference Range Interpretation Comments ALT (test code = ALT) 48 See_Comment [Auto mated message] The system which ge nerated this result transmit theodore reference range : <=65. The reference range was not used to interpr et this result as david l/abnormal. [facility] [id number] 05:33:00 Test Item Value Reference Range Interpretation Comments AST (test code = AST) 44 See_Comment [Auto mated message] The system which ge nerated this result transmit theodore reference range : <=37. The reference range was not used to interpr et this result as david l/abnormal. [facility] [id number] 05:33:00 Test Item Value Reference Range Interpretation Comments Alk Phos (test code = Alk Phos) 106 39-136 [facility] [id number] 05:33:00 Test Item Value Reference Range Interpretation Comments Bili Total (test code = Bili Total) 1.1 0.2-1.3 [facility] [id number] 05:33:00 Test Item Value Reference Range Interpretation Comments AGAP (test code = AGAP) 11.8 10.0-20.0 [facility] [id number] 05:33:00 Test Item Value Reference Range Interpretation Comments B/C Ratio (test code = B/C Ratio) 21 1 6-25 [place] 698480-05-11 05:33:00 Test Item Value Reference Range Interpretation Comments Globulin (test code = Globulin) 3.5 2.7-4.2 [place] 698480-05-11 05:33:00 Test Item Value Reference Range Interpretation Comments A/G Ratio (test code = A/G Ratio) 1.1 1 0.7-1.6 [place] 698480-05-11 05:33:00 Test Item Value Reference Range Interpretation Comments eGFR (test code = eGFR) 62 [facility]2020-05-11 05:33:00 Test Item Value Reference Range Interpretation Comments Magnesium Lvl (test code = Magnesium 2.1 1.8-2.4 Lvl) [place] 698480-05-11 05:33:00 Test Item Value Reference Range Interpretation Comments Phosphorus (test code = Phosphorus) 2.6 2.5-4.5 [place] 324030-05-11 05:33:00 Test Item Value Reference Range Interpretation Comments WBC (test code = WBC) 11.4 3.7-10.4 [place] 324030-05-11 05:33:00 Test Item Value Reference Range Interpretation Comments RBC (test code = RBC) 4.44 4.20-5.40 [place] 324030-05-11 05:33:00 Test Item Value Reference Range Interpretation Comments Hgb (test code = Hgb) 14.7 12.0-16.0 [place] [address]-05-11 05:33:00 Test Item Value Reference Range Interpretation Comments Hct (test code = Hct) 42.4 36.0-48.0 [place] [address]-05-11 05:33:00 Test Item Value Reference Range Interpretation Comments MCV (test code = MCV) 95.5 80.0-98.0 [place] [address]-05-11 05:33:00 Test Item Value Reference Range Interpretation Comments MCH (test code = MCH) 33.1 pg 27.0-31.0 [place] 324030-05-11 05:33:00 Test Item Value Reference Range Interpretation Comments MCHC (test code = MCHC) 34.6 32.0-36.0 [place] 324030-05-11 05:33:00 Test Item Value Reference Range Interpretation Comments RDW (test code = RDW) 13.0 11.5-14.5 [facility] CampusHmhngrwIARWVMSRPD7975-55-78 05:33:00 Test Item Value Reference Range Interpretation Comments Platelet (test code = Platelet) 233 133-450 [place] 324030-05-11 05:33:00 Test Item Value Reference Range Interpretation Comments MPV (test code = MPV) 7.1 7.4-10.4 [facility] CampusDusgmahFORUEAHWOW0173-78-84 05:33:00 Test Item Value Reference Range Interpretation Comments PT (test code = PT) 11.5 s 12.0-14.7 [facility] CampusLkoretnMJVVSLIVHN7727-75-69 05:33:00 Test Item Value Reference Range Interpretation Comments INR (test code = INR) 0.84 1 0.85-1.17 [place] 324030-05-11 05:33:00 Test Item Value Reference Range Interpretation Comments PTT (test code = PTT) 27.7 s 22.9-35.8 [facility] CampusUwnppxfRSKJQKYDDX0777-12-51 05:33:00 Test Item Value Reference Range Interpretation Comments Segs (test code = Segs) 80.1 45.0-75.0 [facility] [id number] 05:33:00 Test Item Value Reference Range Interpretation Comments Lymphocytes (test code = Lymphocytes) 13.1 20.0-40.0 [facility]DqqjdwjJLRFJVFNEV8316-55-76 05:33:00 Test Item Value Reference Range Interpretation Comments Monocytes (test code = Monocytes) 6.2 2.0-12.0 [facility]DxsnctzVDQROYXLHB0528-96-57 05:33:00 Test Item Value Reference Range Interpretation Comments Basophils (test code = 0.6 See_Comment [Aut omated message] The Basophils) system which ge nerated this result tra nsmitted reference range : <=1.0. The reference r kendell was not used to int erpret this result as normal/abnormal . [facility] CampusGwwoiohIRGNUXIZGJ9218-22-65 05:33:00 Test Item Value Reference Range Interpretation Comments Neutrophils # (test code = Neutrophils 9.2 1.5-8.1 #) [facility]PfostgbWANCJYVQNI7999-92-10 05:33:00 Test Item Value Reference Range Interpretation Comments Lymphocytes # (test code = Lymphocytes 1.5 1.0-5.5 #) [facility]PybmzstIKORWXPTGZ9148-52-20 05:33:00 Test Item Value Reference Range Interpretation Comments Monocytes # (test code 0.7 See_Comment [Aut omated message] The = Monocytes #) system which generated this result tra nsmitted reference range : <=0.8. The reference r kendell was not used to int erpret this result as normal/abnormal . [facility] CampusTruitwrEDJFDBQJWI9793-74-53 05:33:00 Test Item Value Reference Range Interpretation Comments Basophils # (test code 0.1 See_Comment [Aut omated message] The = Basophils #) system which generated this result tra nsmitted reference range : <=0.2. The reference r kendell was not used to int erpret this result as normal/abnormal . [facility]2019-09-25 17:19:00 Test Item Value Reference Range Interpretation Comments Glucose Lvl (test code = Glucose Lvl) 84 70-99 [facility]2019-09-25 17:19:00 Test Item Value Reference Range Interpretation Comments BUN (test code = BUN) 30 7-22 [facility]2019-09-25 17:19:00 Test Item Value Reference Range Interpretation Comments Creatinine Lvl (test code = Creatinine 1.34 0.50-1.40 Lvl) [facility]2019-09-25 17:19:00 Test Item Value Reference Range Interpretation Comments Sodium Lvl (test code = Sodium Lvl) 138 135-145 [facility]2019-09-25 17:19:00 Test Item Value Reference Range Interpretation Comments Potassium Lvl (test code = Potassium 4.1 3.5-5.1 Lvl) [facility]2019-09-25 17:19:00 Test Item Value Reference Range Interpretation Comments Chloride Lvl (test code = Chloride Lvl) 103 95-109 [facility]2019-09-25 17:19:00 Test Item Value Reference Range Interpretation Comments CO2 (test code = CO2) 28 24-32 [facility]2019-09-25 17:19:00 Test Item Value Reference Range Interpretation Comments Calcium Lvl (test code = Calcium Lvl) 8.9 8.5-10.5 [facility]2019-09-25 17:19:00 Test Item Value Reference Range Interpretation Comments AGAP (test code = AGAP) 11.1 10.0-20.0 [facility]2019-09-25 17:19:00 Test Item Value Reference Range Interpretation Comments B/C Ratio (test code = B/C Ratio) 22 1 6-25 [facility]2019-09-25 17:19:00 Test Item Value Reference Range Interpretation Comments eGFR (test code = eGFR) 45 [facility]2019-09-25 17:19:00 Test Item Value Reference Range Interpretation Comments ALT (test code = ALT) 20 See_Comment [Auto mated message] The system which ge nerated this result transmit theodore reference range : <=65. The reference range was not used to interpr et this result as david l/abnormal. [facility]2019-09-25 17:19:00 Test Item Value Reference Range Interpretation Comments Albumin Lvl (test code = Albumin Lvl) 3.6 3.5-5.0 [facility]2019-09-25 17:19:00 Test Item Value Reference Range Interpretation Comments Alk Phos (test code = Alk Phos) 83 39-136 [facility]2019-09-25 17:19:00 Test Item Value Reference Range Interpretation Comments Bili Total (test code = Bili Total) 0.6 0.2-1.3 [facility]2019-09-25 17:19:00 Test Item Value Reference Range Interpretation Comments Total Protein (test code = Total 6.3 6.4-8.4 Protein) [facility]2019-09-25 17:19:00 Test Item Value Reference Range Interpretation Comments AST (test code = AST) 20 See_Comment [Auto mated message] The system which ge nerated this result transmit theodore reference range : <=37. The reference range was not used to interpr et this result as david l/abnormal. [facility]2019-09-25 17:19:00 Test Item Value Reference Range Interpretation Comments Globulin (test code = Globulin) 2.7 2.7-4.2 [facility]2019-09-25 17:19:00 Test Item Value Reference Range Interpretation Comments A/G Ratio (test code = A/G Ratio) 1.3 1 0.7-1.6 [facility]2019-09-25 17:19:00 Test Item Value Reference Range Interpretation Comments Glucose Lvl (test code = Glucose Lvl) 84 70-99 [facility]2019-09-25 17:19:00 Test Item Value Reference Range Interpretation Comments BUN (test code = BUN) 30 7-22 [facility]2019-09-25 17:19:00 Test Item Value Reference Range Interpretation Comments Creatinine Lvl (test code = Creatinine 1.34 0.50-1.40 Lvl) [facility]2019-09-25 17:19:00 Test Item Value Reference Range Interpretation Comments Sodium Lvl (test code = Sodium Lvl) 138 135-145 [facility]2019-09-25 17:19:00 Test Item Value Reference Range Interpretation Comments Potassium Lvl (test code = Potassium 4.1 3.5-5.1 Lvl) [facility]2019-09-25 17:19:00 Test Item Value Reference Range Interpretation Comments Chloride Lvl (test code = Chloride Lvl) 103 95-109 [facility]2019-09-25 17:19:00 Test Item Value Reference Range Interpretation Comments CO2 (test code = CO2) 28 24-32 [facility]2019-09-25 17:19:00 Test Item Value Reference Range Interpretation Comments Calcium Lvl (test code = Calcium Lvl) 8.9 8.5-10.5 [facility]2019-09-25 17:19:00 Test Item Value Reference Range Interpretation Comments AGAP (test code = AGAP) 11.1 10.0-20.0 [facility]2019-09-25 17:19:00 Test Item Value Reference Range Interpretation Comments B/C Ratio (test code = B/C Ratio) 22 1 6-25 [facility]2019-09-25 17:19:00 Test Item Value Reference Range Interpretation Comments eGFR (test code = eGFR) 45 [facility]2019-09-25 17:19:00 Test Item Value Reference Range Interpretation Comments ALT (test code = ALT) 20 See_Comment [Auto mated message] The system which ge nerated this result transmit theodore reference range : <=65. The reference range was not used to interpr et this result as david l/abnormal. [facility] [id number] 17:19:00 Test Item Value Reference Range Interpretation Comments Albumin Lvl (test code = Albumin Lvl) 3.6 3.5-5.0 [facility] [id number] 17:19:00 Test Item Value Reference Range Interpretation Comments Alk Phos (test code = Alk Phos) 83 39-136 [facility] [id number] 17:19:00 Test Item Value Reference Range Interpretation Comments Bili Total (test code = Bili Total) 0.6 0.2-1.3 [facility] [id number] 17:19:00 Test Item Value Reference Range Interpretation Comments Total Protein (test code = Total 6.3 6.4-8.4 Protein) [facility] [id number] 17:19:00 Test Item Value Reference Range Interpretation Comments AST (test code = AST) 20 See_Comment [Auto mated message] The system which ge nerated this result transmit theodore reference range : <=37. The reference range was not used to interpr et this result as david l/abnormal. [facility] [id number] 17:19:00 Test Item Value Reference Range Interpretation Comments Globulin (test code = Globulin) 2.7 2.7-4.2 [facility] [id number] 17:19:00 Test Item Value Reference Range Interpretation Comments A/G Ratio (test code = A/G Ratio) 1.3 1 0.7-1.6 [facility] [place] [id number] 15:26:00 Test Item Value Reference Range Interpretation Comments ABO/Rh (test code = ABO/Rh) O NEG [facility] [place] [id number] 15:26:00 Test Item Value Reference Range Interpretation Comments Antibody Scrn (test Negative (08/03/19 code = Antibody Scrn) 10:26 AM) [facility] [id number] 15:26:00 Test Item Value Reference Range Interpretation Comments Glucose Lvl (test code = Glucose Lvl) 84 70-99 [facility] [id number] 15:26:00 Test Item Value Reference Range Interpretation Comments BUN (test code = BUN) 30 7-22 [facility]2019-09-25 15:26:00 Test Item Value Reference Range Interpretation Comments Creatinine Lvl (test code = Creatinine 1.33 0.50-1.40 Lvl) [facility]2019-09-25 15:26:00 Test Item Value Reference Range Interpretation Comments Sodium Lvl (test code = Sodium Lvl) 135 135-145 [facility]2019-09-25 15:26:00 Test Item Value Reference Range Interpretation Comments Potassium Lvl (test code = Potassium 5.0 3.5-5.1 Lvl) [facility]2019-09-25 15:26:00 Test Item Value Reference Range Interpretation Comments Chloride Lvl (test code = Chloride Lvl) 102 95-109 [facility]2019-09-25 15:26:00 Test Item Value Reference Range Interpretation Comments CO2 (test code = CO2) 26 24-32 [facility]2019-09-25 15:26:00 Test Item Value Reference Range Interpretation Comments Calcium Lvl (test code = Calcium Lvl) 8.9 8.5-10.5 [facility]2019-09-25 15:26:00 Test Item Value Reference Range Interpretation Comments AGAP (test code = AGAP) 12.0 10.0-20.0 [facility]2019-09-25 15:26:00 Test Item Value Reference Range Interpretation Comments B/C Ratio (test code = B/C Ratio) 23 1 6-25 [facility]2019-09-25 15:26:00 Test Item Value Reference Range Interpretation Comments eGFR (test code = eGFR) 45 [facility]2019-09-25 15:26:00 Test Item Value Reference Range Interpretation Comments ALT (test code = ALT) 23 See_Comment [Auto mated message] The system which ge nerated this result transmit theodore reference range : <=65. The reference range was not used to interpr et this result as david l/abnormal. [facility]2019-09-25 15:26:00 Test Item Value Reference Range Interpretation Comments Albumin Lvl (test code = Albumin Lvl) 4.0 3.5-5.0 [facility]2019-09-25 15:26:00 Test Item Value Reference Range Interpretation Comments Alk Phos (test code = Alk Phos) 92 39-136 [facility]2019-09-25 15:26:00 Test Item Value Reference Range Interpretation Comments Bili Total (test code = Bili Total) 0.7 0.2-1.3 [facility]2019-09-25 15:26:00 Test Item Value Reference Range Interpretation Comments Total Protein (test code = Total 6.8 6.4-8.4 Protein) [facility]2019-09-25 15:26:00 Test Item Value Reference Range Interpretation Comments AST (test code = AST) 30 See_Comment [Auto mated message] The system which ge nerated this result transmit theodore reference range : <=37. The reference range was not used to interpr et this result as david l/abnormal. [facility]2019-09-25 15:26:00 Test Item Value Reference Range Interpretation Comments Globulin (test code = Globulin) 2.8 2.7-4.2 [facility]2019-09-25 15:26:00 Test Item Value Reference Range Interpretation Comments A/G Ratio (test code = A/G Ratio) 1.4 1 0.7-1.6 [facility] [id number] 15:26:00 Test Item Value Reference Range Interpretation Comments WBC (test code = WBC) 4.0 3.7-10.4 [facility] CampusDrmbxopIECZUTFTCM8759-33-20 15:26:00 Test Item Value Reference Range Interpretation Comments RBC (test code = RBC) 3.67 4.20-5.40 [place] 522859-09-25 15:26:00 Test Item Value Reference Range Interpretation Comments Hgb (test code = Hgb) 12.1 12.0-16.0 [place] 522859-09-25 15:26:00 Test Item Value Reference Range Interpretation Comments Hct (test code = Hct) 35.1 36.0-48.0 [place] 522859-09-25 15:26:00 Test Item Value Reference Range Interpretation Comments MCV (test code = MCV) 95.5 80.0-98.0 [place] 522859-09-25 15:26:00 Test Item Value Reference Range Interpretation Comments MCH (test code = MCH) 33.1 pg 27.0-31.0 [facility] CampusPyucihvTVFBTACABG6775-01-30 15:26:00 Test Item Value Reference Range Interpretation Comments MCHC (test code = MCHC) 34.6 32.0-36.0 [facility] CampusZhpghawZINJZAORAO9357-78-09 15:26:00 Test Item Value Reference Range Interpretation Comments RDW (test code = RDW) 12.5 11.5-14.5 [facility] CampusIbljgpuFSIJJQNFBI8187-22-59 15:26:00 Test Item Value Reference Range Interpretation Comments Platelet (test code = Platelet) 179 133-450 [facility] CampusEziazqqPUUAZDRISX9127-24-29 15:26:00 Test Item Value Reference Range Interpretation Comments MPV (test code = MPV) 7.4 7.4-10.4 [facility] CampusRuqabwjZEPFUPDJHZ1083-76-91 15:26:00 Test Item Value Reference Range Interpretation Comments PT (test code = PT) 12.6 s 12.0-14.7 [facility] CampusXkmdsmnSPNIBNMNEK9148-70-07 15:26:00 Test Item Value Reference Range Interpretation Comments INR (test code = INR) 0.96 1 0.85-1.17 [facility] CampusTwrjajhFURPYXIVDT1054-13-73 15:26:00 Test Item Value Reference Range Interpretation Comments PTT (test code = PTT) 32.8 s 22.9-35.8 [facility] CampusCbuoajgJQDUYNABIK0723-49-91 15:26:00 Test Item Value Reference Range Interpretation Comments Segs (test code = Segs) 39.7 45.0-75.0 [facility] CampusAlmdtsmQANVMWSKRP2187-73-02 15:26:00 Test Item Value Reference Range Interpretation Comments Lymphocytes (test code = Lymphocytes) 44.0 20.0-40.0 [facility] CampusOxfndjmLJDAYTIQLV6602-88-52 15:26:00 Test Item Value Reference Range Interpretation Comments Monocytes (test code = Monocytes) 8.8 2.0-12.0 [facility] CampusQesqjwxZGLKYZMRTB7767-74-82 15:26:00 Test Item Value Reference Range Interpretation Comments Eosinophils (test code = 6.4 See_Comment [A utomated message] The Eosinophils) system which ge nerated this result tra nsmitted reference range : <=4.0. The reference r kendell was not used to int erpret this result as normal/abnormal . [facility] CampusXlsubwiFJICCAMCPM6012-42-28 15:26:00 Test Item Value Reference Range Interpretation Comments Basophils (test code = 1.1 See_Comment [Aut omated message] The Basophils) system which ge nerated this result tra nsmitted reference range : <=1.0. The reference r kendell was not used to int erpret this result as normal/abnormal . [facility] Camp[id number] 15:26:00 Test Item Value Reference Range Interpretation Comments Neutrophils # (test code = Neutrophils 1.6 1.5-8.1 #) [id number] 15:26:00 Test Item Value Reference Range Interpretation Comments Lymphocytes # (test code = Lymphocytes 1.8 1.0-5.5 #) [facility]ihjgfaRBOIBVAXPW3915-84-55 15:26:00 Test Item Value Reference Range Interpretation Comments Monocytes # (test code 0.4 See_Comment [Aut omated message] The = Monocytes #) system which generated this result tra nsmitted reference range : <=0.8. The reference r kendell was not used to int erpret this result as normal/abnormal . [facility] CampusYvykdfkRWVWBMQUUA5981-39-42 15:26:00 Test Item Value Reference Range Interpretation Comments Eosinophils # (test code 0.3 See_Comment [A utomated message] The = Eosinophils #) system whic h generated this result tra nsmitted reference range : <=0.5. The reference r kendell was not used to int erpret this result as normal/abnormal . [facility] [id number] 15:26:00 Test Item Value Reference Range Interpretation Comments Hgb A1C (test code = Hgb A1C) 5.1 [facility] [id number] 15:26:00 Test Item Value Reference Range Interpretation Comments ABO/Rh (test code = ABO/Rh) O NEG [facility] [id number] 15:26:00 Test Item Value Reference Range Interpretation Comments Antibody Scrn (test Negative (08/03/19 code = Antibody Scrn) 10:26 AM) [facility] [id number] 15:26:00 Test Item Value Reference Range Interpretation Comments Glucose Lvl (test code = Glucose Lvl) 84 70-99 [facility] [id number] 15:26:00 Test Item Value Reference Range Interpretation Comments BUN (test code = BUN) 30 7-22 [facility]2019-09-25 15:26:00 Test Item Value Reference Range Interpretation Comments Creatinine Lvl (test code = Creatinine 1.33 0.50-1.40 Lvl) [facility]2019-09-25 15:26:00 Test Item Value Reference Range Interpretation Comments Sodium Lvl (test code = Sodium Lvl) 135 135-145 [facility]2019-09-25 15:26:00 Test Item Value Reference Range Interpretation Comments Potassium Lvl (test code = Potassium 5.0 3.5-5.1 Lvl) [facility]2019-09-25 15:26:00 Test Item Value Reference Range Interpretation Comments Chloride Lvl (test code = Chloride Lvl) 102 95-109 [facility]2019-09-25 15:26:00 Test Item Value Reference Range Interpretation Comments CO2 (test code = CO2) 26 24-32 [facility]2019-09-25 15:26:00 Test Item Value Reference Range Interpretation Comments Calcium Lvl (test code = Calcium Lvl) 8.9 8.5-10.5 [facility]2019-09-25 15:26:00 Test Item Value Reference Range Interpretation Comments AGAP (test code = AGAP) 12.0 10.0-20.0 [facility]2019-09-25 15:26:00 Test Item Value Reference Range Interpretation Comments B/C Ratio (test code = B/C Ratio) 23 1 6-25 [facility]2019-09-25 15:26:00 Test Item Value Reference Range Interpretation Comments eGFR (test code = eGFR) 45 [facility]2019-09-25 15:26:00 Test Item Value Reference Range Interpretation Comments ALT (test code = ALT) 23 See_Comment [Auto mated message] The system which ge nerated this result transmit theodore reference range : <=65. The reference range was not used to interpr et this result as david l/abnormal. [facility]2019-09-25 15:26:00 Test Item Value Reference Range Interpretation Comments Albumin Lvl (test code = Albumin Lvl) 4.0 3.5-5.0 [facility]2019-09-25 15:26:00 Test Item Value Reference Range Interpretation Comments Alk Phos (test code = Alk Phos) 92 39-136 [facility]2019-09-25 15:26:00 Test Item Value Reference Range Interpretation Comments Bili Total (test code = Bili Total) 0.7 0.2-1.3 [facility]2019-09-25 15:26:00 Test Item Value Reference Range Interpretation Comments Total Protein (test code = Total 6.8 6.4-8.4 Protein) [facility]2019-09-25 15:26:00 Test Item Value Reference Range Interpretation Comments AST (test code = AST) 30 See_Comment [Auto mated message] The system which ge nerated this result transmit theodore reference range : <=37. The reference range was not used to interpr et this result as david l/abnormal. [facility]2019-09-25 15:26:00 Test Item Value Reference Range Interpretation Comments Globulin (test code = Globulin) 2.8 2.7-4.2 [place] 810109-09-25 15:26:00 Test Item Value Reference Range Interpretation Comments A/G Ratio (test code = A/G Ratio) 1.4 1 0.7-1.6 [facility] CampusJvidknuIATSYZVEAG3346-13-00 15:26:00 Test Item Value Reference Range Interpretation Comments WBC (test code = WBC) 4.0 3.7-10.4 [place] 522859-09-25 15:26:00 Test Item Value Reference Range Interpretation Comments RBC (test code = RBC) 3.67 4.20-5.40 [place] 522859-09-25 15:26:00 Test Item Value Reference Range Interpretation Comments Hgb (test code = Hgb) 12.1 12.0-16.0 [place] 522859-09-25 15:26:00 Test Item Value Reference Range Interpretation Comments Hct (test code = Hct) 35.1 36.0-48.0 [place] 522859-09-25 15:26:00 Test Item Value Reference Range Interpretation Comments MCV (test code = MCV) 95.5 80.0-98.0 [place] 522859-09-25 15:26:00 Test Item Value Reference Range Interpretation Comments MCH (test code = MCH) 33.1 pg 27.0-31.0 [facility] CampusRazewazGGHCPRWTNJ7339-77-21 15:26:00 Test Item Value Reference Range Interpretation Comments MCHC (test code = MCHC) 34.6 32.0-36.0 [facility] CampusVczdesjNXGDSOWKNA9874-66-37 15:26:00 Test Item Value Reference Range Interpretation Comments RDW (test code = RDW) 12.5 11.5-14.5 [facility] CampusRvioizoYDLJYRWJAI4582-77-34 15:26:00 Test Item Value Reference Range Interpretation Comments Platelet (test code = Platelet) 179 133-450 [facility] CampusUwbeapxFXDRAQRUBH6665-47-90 15:26:00 Test Item Value Reference Range Interpretation Comments MPV (test code = MPV) 7.4 7.4-10.4 [facility] CampusFrnzchaKFBAWFSCTW4443-41-98 15:26:00 Test Item Value Reference Range Interpretation Comments PT (test code = PT) 12.6 s 12.0-14.7 [facility] CampusPdihasjFNMQWRSZZM5307-63-23 15:26:00 Test Item Value Reference Range Interpretation Comments INR (test code = INR) 0.96 1 0.85-1.17 [facility] CampusQnycfedXBNEHVOJRH4267-38-73 15:26:00 Test Item Value Reference Range Interpretation Comments PTT (test code = PTT) 32.8 s 22.9-35.8 [facility] CampusGzkgzblAZJYHUGULC5509-87-20 15:26:00 Test Item Value Reference Range Interpretation Comments Segs (test code = Segs) 39.7 45.0-75.0 [facility] CampusVusxdiqDKHUSNSPCM5553-11-85 15:26:00 Test Item Value Reference Range Interpretation Comments Lymphocytes (test code = Lymphocytes) 44.0 20.0-40.0 [facility] CampusXpfyoqjZJVFZLMDCZ3592-21-32 15:26:00 Test Item Value Reference Range Interpretation Comments Monocytes (test code = Monocytes) 8.8 2.0-12.0 [facility] CampusCdiiouzCDFLPVESMZ4118-64-63 15:26:00 Test Item Value Reference Range Interpretation Comments Eosinophils (test code = 6.4 See_Comment [A utomated message] The Eosinophils) system which ge nerated this result tra nsmitted reference range : <=4.0. The reference r kendell was not used to int erpret this result as normal/abnormal . [facility]VfeeqinGJLKIFGRFW0735-95-95 15:26:00 Test Item Value Reference Range Interpretation Comments Basophils (test code = 1.1 See_Comment [Aut omated message] The Basophils) system which ge nerated this result tra nsmitted reference range : <=1.0. The reference r kendell was not used to int erpret this result as normal/abnormal . [id number] 15:26:00 Test Item Value Reference Range Interpretation Comments Neutrophils # (test code = Neutrophils 1.6 1.5-8.1 #) [id number] 15:26:00 Test Item Value Reference Range Interpretation Comments Lymphocytes # (test code = Lymphocytes 1.8 1.0-5.5 #) [id number] 15:26:00 Test Item Value Reference Range Interpretation Comments Monocytes # (test code 0.4 See_Comment [Aut omated message] The = Monocytes #) system which generated this result tra nsmitted reference range : <=0.8. The reference r kendell was not used to int erpret this result as normal/abnormal . [id number] 15:26:00 Test Item Value Reference Range Interpretation Comments Eosinophils # (test code 0.3 See_Comment [A utomated message] The = Eosinophils #) system whic h generated this result tra nsmitted reference range : <=0.5. The reference r kendell was not used to int erpret this result as normal/abnormal . [facility]SPECIAL [id number] 15:26:00 Test Item Value Reference Range Interpretation Comments Hgb A1C (test code = Hgb A1C) 5.1 [facility] History and Physical Notes Date/Time Note Provider Source 2022-08-22 19:34:00-00:00 Apurva Ahuja MD: [facility] PERFORMEvent Display: History and PhysicalAuthored Date: [id number] and Physical Code Status: Full Resuscitation Chief Complaint: Feeling weak and tired. History of Present Illness: 57-year-old female with history of brain tumor, chronic pain was brought to the emergency room by her son for altered mental status. She is slurring her speech. She is on Klonopin as needed. Also she is on Nucynta. She was taken to the ER few days ago when she was diagnosed with UTI. As per son she left without antibiotic. Today UA is unremarkable. Patient son took away her medications on Thursday but she is still altered, confused for several days. Urine drug screen is positive for opiates. She is a smoker. That she had stroke in the past and had similar symptoms with altered mental status and slurring of speech. CT today nothing acute. Urine drug screen positive for opiates. Patient is afebrile, no signs of infection. As per patient function and pain. Blood glucose was low in the 50s.Patient is confused unable to provide any history... Review of Systems: Unable to obtain due to patientMedical condition. 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 Cancer, Breast: Mother. Cirrhosis of liver: Brother. Clotting or Bleeding D/O: Mother. Hypertension: Mother. Stroke (CVA): Mother. Social History: Smoking Status Current Alcohol Past, Type Beer, Wine. Electronic Cigarette/Vaping Electronic Cigarette Use: Never. Employment/School Status: Unemployed. Exercise Substance Abuse Use: None. Tobacco Use: Never smoker. Previous treatment: None. Tobacco smoke exposure: None. Did the Patient Smoke Cigarettes Anytime During the Last 365 Days? No. Cessation Counseling Provided? No. Allergies: BuSpar Cymbalta NSAIDs Seroquel Wellbutrin Home Medications: atorvastatin 20 mg oral tablet, 20 mg= 1 tab, PO, Daily buPROPion 300 mg/24 hours (XL) oral tablet, extended release, 300 mg= 1 tab, PO, Daily clonazePAM 1 mg oral tablet, 1 mg= 1 tab, PO, TID Coreg 3.125 mg oral tablet, 3.125 mg= 1 tab, PO, BID Keppra 1000 mg oral tablet, 1000 mg= 1 tab, PO, Q12H, 1 refills levothyroxine 50 mcg (0.05 mg) oral tablet, 50 microgram= 1 tab, PO, QAM levothyroxine 50 mcg (0.05 mg) oral tablet, 50 microgram= 1 tab, PO, Daily Nucynta, 100 mg, PO pantoprazole 40 mg oral enteric coated tablet, 40 mg= 1 tab, PO, Daily rOPINIRole 2 mg oral tablet, 2 mg= 1 tab, PO, Daily tizanidine 4 mg oral tablet, 4 mg= 1 tab, PO, BID trazodone 150 mg oral tablet, 150 mg= 1 tab, PO, Bedtime Physical Exam: Vitals and Measurements T: 98.2 F (Oral) HR: 89 (Peripheral) RR: 16 BP: 104/67 SpO2: 97% WT: 60.455 kg BMI: 26.03 General: Awake, restless, confusedSkin: Warm, dry. Head: Normocephalic, atraumatic. Neck: Supple, trachea midline, no tenderness. Eye: Extraocular movements are intact, normal conjunctiva. Ears, nose, mouth and throat: Oral mucosa dryCardiovascular: Regular rate and rhythm, Normal peripheral perfusion. Respiratory: Lungs are clear to auscultation, respirations are non-labored. Chest wall: No tenderness, No deformity. Back: Nontender, Normal range of motion. Musculoskeletal: Normal ROM, normal strength, no deformity. Gastrointestinal: Soft, Nontender, Non distended. Genitourinary: No suprapubic tenderness, no flank tendernessNeurological: Awake, restless, confused moving extremities Pertinent Labs: LabsA/G Ratio: 1.1 (08/19/22 14:54:00)Acetaminoph Lvl: AGAP: 12.6 mEq/L (08/19/22 14:54:00)Albumin Lvl: 3.7 g/dL (08/19/22 14:54:00)Alk Phos: 87 unit/L (08/19/22 14:54:00)ALT: 38 unit/L (08/19/22 14:54:00)Ammonia: AST: 31 unit/L (08/19/22 14:54:00)B/C Ratio: 20 (08/19/22 14:54:00)Basophils: 2.3 % High (08/19/22 14:54:00)Basophils #: 0.1 K/CMM (08/19/22 14:54:00)BE Art: 0 mMol/L (08/19/22 14:54:00)Bili Total: 0.7 mg/dL (08/19/22 14:54:00)BUN: 26 mg/dL High (08/19/22 14:54:00)Calcium Lvl: 9.2 mg/dL (08/19/22 14:54:00)Chloride Lvl: 106 mEq/L (08/19/22 14:54:00)CO2: 26 mEq/L (08/19/22 14:54:00)Creatinine Lvl: 1.32 mg/dL (08/19/22 14:54:00)eGFR: 47 mL/min/1.73m2 (08/19/22 14:54:00)Eosinophils: 3.2 % (08/19/22 14:54:00)Eosinophils #: 0.1 K/CMM (08/19/22 14:54:00)Ethanol Lvl: 3 mg/dL (08/19/22 14:54:00)Etoh (%): 0.003 % (08/19/22 14:54:00)Globulin: 3.3 g/dL (08/19/22 14:54:00)Glucose Lvl: 53 mg/dL Low (08/19/22 14:54:00)HCO3 Art: 26 mMol/L (08/19/22 14:54:00)Hct: 34.4 % Low (08/19/22 14:54:00)Hgb: 11.8 g/dL Low (08/19/22 14:54:00)HS Troponin I Baseline: 4 pg/mL (08/19/22 14:54:00)INR: 0.99 (08/19/22 14:54:00)Lactic Acid Lvl: 0.6 mMol/L (08/19/22 14:54:00)Lymphocytes: 27.8 % (08/19/22 14:54:00)Lymphocytes #: 1.3 K/CMM (08/19/22 14:54:00)MCH: 32.9 pg High (08/19/22 14:54:00)MCHC: 34.3 g/dL (08/19/22 14:54:00)MCV: 96.1 fL (08/19/22 14:54:00)Monocytes: 8 % (08/19/22 14:54:00)Monocytes #: 0.4 K/CMM (08/19/22 14:54:00)MPV: 6.9 fL Low (08/19/22 14:54:00)Neutrophils #: 2.7 K/CMM (08/19/22 14:54:00)O2 Sat Art (calc): 89 % Low (08/19/22 14:54:00)pCO2 Art: 46 mmHg High (08/19/22 14:54:00)pH Art: 7.36 (08/19/22 14:54:00)Platelet: 229 K/CMM (08/19/22 14:54:00)pO2 Art: 60 mmHg Critical (08/19/22 14:54:00)Potassium Lvl: 3.6 mEq/L (08/19/22 14:54:00)Procalcitonin Lvl: PT: 13 seconds (08/19/22 14:54:00)PTT: 33.5 seconds (08/19/22 14:54:00)RBC: 3.58 M/CMM Low (08/19/22 14:54:00)RDW: 13.8 % (08/19/22 14:54:00)Salicylate Lvl: 2.3 mg/dL (08/19/22 14:54:00)Segs: 58.7 % (08/19/22 14:54:00)Site Art: Art Cord (08/19/22 14:54:00)Sodium Lvl: 141 mEq/L (08/19/22 14:54:00)Temp Art: 37 DegC (08/19/22 14:54:00)Total CK: 257 unit/L High (08/19/22 14:54:00)Total Protein: 7 g/dL (08/19/22 14:54:00)TSH: 0.764 uIU/mL (08/19/22 14:54:00)U Amph Scr: NEG (08/19/22 14:54:00)U Parisa Scr: NEG (08/19/22 14:54:00)U Benzodiaz Scr: NEG (08/19/22 14:54:00)U Cannab Scr: NEG (08/19/22 14:54:00)U Cocaine Scr: NEG (08/19/22 14:54:00)U Opiate Scr: POS Abnormal (08/19/22 14:54:00)U Phencyclidine Scr: NEG (08/19/22 14:54:00)UA Bacteria: Occasional (08/19/22 14:54:00)UA Bili: cNegative (08/19/22 14:54:00)UA Blood: cNegative (08/19/22 14:54:00)UA Color: cYellow (08/19/22 14:54:00)UA Glucose: cNegative (08/19/22 14:54:00)UA Ketones: cNegative (08/19/22 14:54:00)UA Leuk Est: cSmall Abnormal (08/19/22 14:54:00)UA Nitrite: cNegative (08/19/22 14:54:00)UA pH: 7 (08/19/22 14:54:00)UA Protein: cNegative (08/19/22 14:54:00)UA RBC: None Seen (08/19/22 14:54:00)UA Renal Epi: 0-2 Abnormal (08/19/22 14:54:00)UA Spec Grav: 1.01 (08/19/22 14:54:00)UA Sq Epi: cRare (08/19/22 14:54:00)UA Turbidity: cClear (08/19/22 14:54:00)UA Urobilinogen: 0.2 EU/dL (08/19/22 14:54:00)UA WBC: 0-2 (08/19/22 14:54:00)UDS Note: See Note (08/19/22 14:54:00)WBC: 4.6 K/CMM (08/19/22 14:54:00) Pertinent Imaging: Brain wo contrast CT 08/19/22 15:44:29IMPRESSION:No evidence of acute intracranial process.Stable postsurgical changes in the left posterior fossa. COMMENTS:If there is a persistent concern for acute intracranial process, emergentassessment with MRI or CTA is recommended. Cecelia Wolf MD On 08/19/2022 15:43:33; [id number] Signed By: Cecelia Wolf MD Assessment/Plan: 1. Metabolic encephalopathy (G93.41) 2. Anxiety (F41.9) 3. Hypertension (I10) 4. Chronic pain (G89.29) 5. Hypoglycemia (E16.2) PlanAdmitFrequent neurochecksIV fluidsMRI of the brainPT/OT/speech eval and treatHold opiateReconcile home medsConsider psych eval if further work-up negative and patient is medically clearedDVT prophylaxis SCDs while in bedExpect length of stay 1 midnight. Patient stable and further work-up negativeDiscussed with patient Apurva Ashton MDElectronically Signed: 08/19/22 19:24 Notes Date/Time Note Provider Source 2023-01-19 PROCEDURE INFORMATION: ANNE MARIE gary 13:14:48-00:00 Exam: MR Head Without and With Contrast Exam date and time: 01/19/2023 1:19 PM Age: 57 years old Clinical indication: Unspecified convulsions; Ad ditional info: R56.9 unspecified convulsions/r56.9 unspecified convul sions TECHNIQUE: Imaging protocol: Magnetic resonance imaging of the head without and with contrast. Contrast material: CLARISCAN; Contrast volume: 1 4 ml; Contrast route: INTRAVENOUS (IV); COMPARISON: BRAIN WO CONTRAST MRI 08/20/2022 2:54 PM FINDINGS: Brain: There is no acute cortical infarct. There is a partial empty sella. There is no cerebellar tonsillar ectopia. 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 There is surrounding subcortical gliosis. There is a windlace machine operator meg infarct with subcortical gliosis left occipital pole and mesial a spect of the bilateral parietal lobes. Findings noted previously. Flow is demonstrated in the 4th segments of both vertebral arteries, the basilar artery and intra cranial carotid arteries. The cochlear, vestibule and 7th and 8th nerve fascic les are normal. There is no enhancing intraparenchymal o r leptomeningeal abnormality. There is normal enhancement the cavernous sinus, dural si nuses and deep venous system. The mesial temporal lobes are normal. Cerebral ventricles: Normal. No ventriculomegaly . Bones/joints: Unremarkable. Paranasal sinuses: There is minimal mucosal thic kening in the right sphenoid sinus.. Mastoid air cells: Normal as visualized. No mast oid effusion. Orbital cavities: Unremarkable. Soft tissues: Unremarkable. IMPRESSION: Follow-up study shows no interval change. There is no acute cortical infarct, parenchymal hemorrhage or an enhancing intra-axi al mass. Ottoniel Quintanilla MD On 01/20/2023 15:44:47; VR-BB [id number] 2023-01-07 ANNE MARIE Johnston 15:21:31-00:00 COMPLETE ULTRASOUND OF RIGHT BREAST AND AXILLA: 01/07/2023 CLINICAL: /N63.0. COMPARISON:Comparison is mad e to exams dated: 01/07/2023 mammogram, 01/05/2018 ultrasound, 01/05/2018 mammogram - [facility] OutPatient Imaging [facility], 05/04/2013 mammogram, 05/04/2013 mammogram, and 05/04/2013 ultrasound - [facility] OutPatient Imaging - [place] [facility]. TECHNIQUE: Color flow and re al-time ultrasound of the right breast four quadrants, retroareolar, and axilla regions were performed. Alcocer scale images of the real-time examination were reviewed. FINDINGS: There is a benign intramammary node in the right breast. No significant abnormalities were seen sonographically in the right breast or the right axilla. IMPRESSION: BENIGN RECOMMENDATION:There is no sonographic evidence of malignancy. There is no abnormality seen in the right breast to correspond with the palpable abnormality at 1 o'clock, nor with the non-focal multiple lumps outer breast patient described at time of mammog roman. There is also no abnorm ality seen in the right breast to correspond with the pain in the outer aspect. Further evaluation/management should be based on clinical concern. A 1 year screening mammogram is recommended. () This exam was interpreted at [id number] [facility]. Dr. Lali Ramírez M.D. wc/:01/07/2023 15:51:51 Turf Farmer(s): Jie Hardin [facility] [place] [facility] [place] BI-RADS 1/2 Ultrasound BI-RADS: 2 Benign 2023-01-07 ANNE MARIE Johnston 14:38:08-00:00 BILATERAL DIGITAL DIAGNOSTIC MAMMOGRAM 3D/2D WIT H CAD: 01/07/2023 CLINICAL: N63.0 Unspecified Lump In Unspecified Breast/N63.0 Unspecified Lump In Unspecified Breast. Current study was evaluated with a Certified Registered Nurse Anesthetist d Detection (CAD) system. COMPARISON:Comparison is mad e to exams dated: 01/05/2018 mammogram - [facility] OutPatient Imaging - [place] and 05/04/2013 mammogram - [facility] OutPatient Imaging - [facility]. TECHNIQUE: Digital Breast To mosynthesis was performed and utilized for Interpretation. Current study was also evaluated with a Computer Aided Detection (CAD) system. FINDINGS: There are scattered fibroglandular densities in both breasts. Patient complains of pain an d swelling right breast upper outer quadrant, right lump upper central and multiple pea sized lumps lateral right breast. Patient is somewhat poor historian but it seems thes e have been present since episode requiring ster nal rub. Patient positioning was also limited by lack of right shoulder mobility. There is a benign appearing lymph node in the right breast. There also are benign appearing calcifications in both breasts. Additionally, there are benign post operative findings and biopsy clips in the left breast. No significant masses, calci fications, or other findings are seen in either breast. There has been no significant interval change. IMPRESSION: INCOMPLETE: NEEDS ADDITIONAL IMAGING EVALUATION RECOMMENDATION:There is no a bnormality seen in the right breast to correspond with the palpable abnormality indicated by a triangular marker in the upper outer quadrant, nor are there any abnormalities corresponding to patient's m ultiple other complaints, however, ultrasound is recommended. This exam was interpreted at [id number] [facility]. SUMMARY: Ultrasound will be performed at this time. Bro e see separate report. Dr. Lali Ramírez M.D. wc/:01/07/2023 15:48:23 Turf Farmer(s): Maria Esther Rea [facility] Mammogram BI-RADS: 0 Indeterminate 2023-01-06 PROCEDURE INFORMATION: ANNE MARIE gary 09:44:01-00:00 Exam: US Soft Tissue Head and Neck, Thyroid Exam date and time: 01/06/2023 9:51 AM Age: 57 years old Clinical indication: Hypothyroidism, unspecified ; Additional info: /hypothyroidism TECHNIQUE: Imaging protocol: Real-time ultrasound scan of t he neck with image documentation. Exam focused on the thyroid. COMPARISON: BRAIN/NECK CTA 09/28/2020 1:11 AM FINDINGS: Right thyroid lobe: 3.9 x 1.9 x 1.1 cm Left thyroid lobe: 4 x 1.4 x 1.2 cm Isthmus: 0.3 cm Heterogeneous appearance of thyroid gland is see n. Subcentimeter shadowing calcification is seen in the right midpole. Few hypoechoic solid TR 4 nodules are se en in the right lobe measuring up to 4 mm. 0.7 cm hypoechoic solid TR 4 nodule in the l eft isthmus. Few hypoechoic solid TR 4 nodules are seen in the left lobe wit h largest in the upper pole measuring 6 mm. TR4 - Moderately suspicious. If size greater sincere n or equal to 1.5 cm, fine needle aspiration is recommended. If size is gre ater than equal to 1 cm, ultrasound followup (1, 2, 3 and 5 years) is rec ommended. Subcentimeter benign spongiform nodule in the le ft lower pole. Benign subcentimeter cyst in the left lower pole. Notes: Reference: Julia FN, Segun WD, Sandoval EG, Rufus BermudezK, Ra LL, et al. ACR Thyroid Imaging, Reporting and Data Syst em (TI-RADS): White Paper of the ACR TI-RADS Committee. (2017) Isha yuen of the [employer] : JACR. 14 (5): 587-595. IMPRESSION: Thyroid nodules with ACR TI-RADS Score a nd recommendations as discussed above. No FNA is indicated. Cha Dickens DO On 01/07/2023 15:03:28; VR-SME [id number] 2022-08-20 PROCEDURE INFORMATION: [facility] 15:00:00-00:00 Exam: MR Head Without Contrast Exam date and time: 08/20/2022 2:54 PM Age: 57 years old Clinical indication: Behavioral changes/altered ms TECHNIQUE: Imaging protocol: Magnetic resonance imaging of the head without contrast. COMPARISON: BRAIN WO CONTRAST CT 08/19/2022 3:35 PM FINDINGS: Limitations: Assessment is limited by motion art ifacts. Brain: No evidence of acute hemorrhage or infarct. No m ass effect or midline shift. Mild volume loss and chronic small vessel ischemic changes. Small old bilateral medial parieto-occipital cortically based infarc ts. Moderate-sized encephalomalacia/gliosis in the l eft lateral cerebellum with overlying craniotomy changes. Recommend correlat ion with prior surgical history. Further assessment with contrast-enhanc ed study may be considered as warranted. Cerebral ventricles: Unremarkable for age. Bones/joints: See 'Brain' finding. Paranasal sinuses: Normal as visualized. No acut e sinusitis. Mastoid air cells: Normal as visualized. No mast oid effusion. Orbital cavities: Unremarkable. Vasculature: Central major f low voids appear maintained within the limitations. Soft tissues: Unremarkable. IMPRESSION: 1. No evidence of acute hemorrhage or infarct. 2. Mild volume loss and chronic microangiopathy. 3. 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 4. Left lateral cerebellar encephalomala nanette/gliosis with overlying craniotomy. Recommend correlation with prior surgical histor y. Further assessment with contrast-enhanced study may be considered as war ranted. Cecelia Wolf MD On 08/20/2022 15:42: 19; [id number] 2022-08-19 Radiation Dose CTDIVOL = 0 (mGy): DLP = 1198 (mG y-cm) [facility] 15:34:12-00:00 PROCEDURE INFORMATION: Exam: CT Head Without Contrast [...] indication); or iterative reconstructio n. COMPARISON: BRAIN WO CONTRAST MRI 02/03/2022 7:07 PM RADIATION DOSE METRICS: Total DLP (mGy-cm): 1198 FINDINGS: Brain: Left retrosigmoid craniotomy. Encephaloma lacia in the left lateral cerebellum. Otherwise, intracranial structures a re grossly unremarkable.There is no evidence of acute intracranial hem orrhage, subacute territorial infarct, mass effect or midline shift . No extra-axial fluid collection. Please note that acute infarcts can be occult on CT scan. Cerebral ventricles: Unremarkable for age. Paranasal sinuses: Visualized sinuses are unrema rkable. No fluid levels. Mastoid air cells: Visualized mastoid air cells are well aerated. Bones/joints: Unremarkable. No acute fracture. Soft tissues: Unremarkable. IMPRESSION: No evidence of acute intracranial process. Stable postsurgical changes in the left posterio r fossa. COMMENTS: If there is a persistent concern for acute intra cranial process, emergent assessment with MRI or CTA is recommended. Cecelia Wolf MD On 08/19/2022 15:43: 33; [id number] 2022-08-19 PROCEDURE INFORMATION: [facility] 15:34:12-00:00 Exam: XR Chest Exam date and time: 08/19/2022 3:36 PM Age: 57 years old Clinical indication: /undifferentiated sepsis TECHNIQUE: Imaging protocol: Radiologic exam of the chest. Views: 1 view. COMPARISON: CHEST 1VIEW DX 02/03/2022 10:57 AM FINDINGS: Lungs: No focal airspace disease or evidence of pulmonary edema. Pleural spaces: No pleural effusion. No pneumoth orax. Heart/Mediastinum: Normal appearance of the card iomediastinal silhouette. Vasculature: Aortic stent graft in place. Bones/joints: Versus right s houlder arthroplasty. No acute osseous abnormality. IMPRESSION: No acute cardiopulmonary abnormality. Wanda Lopez MD On 08/19/2022 16:23:37; [id number] 2022-02-03 PROCEDURE INFORMATION: [facility] 18:52:23-00:00 Exam: MR Head Without Contrast Exam date and time: 02/03/2022 7:07 PM Age: 56 years old Clinical indication: /weakness and speech change s. TECHNIQUE: Imaging protocol: MR of the head without contras t. COMPARISON: BRAIN WO CONTRAST CT 02/03/2022 10:23 AM . Compar rosalia is made to the MR study of August 09, 2021. FINDINGS: Brain: There is no acute cortical infarct. Encep halomalacia of the left inferior cerebellar hemisphere with surrounding the subcortical gliosis is present as noted previously in a patient status post a occipital craniotomy. On FLAIR imaging cortical and subcortical altere d signal intensity in the bilateral mesial parietal lobes is present and s table. There is flow in the 4th segments of both vertebral arteries, the bas ilar artery and intracranial carotid arteries. The cochlear, vestibule and 7t h and 8th nerve fascicles are normal. There is a partial empty sella. There is no cerebellar tonsillar ectopia. Cerebral ventricles: Normal. No ventriculomegaly . Bones/joints: Patient is status post a left occi pital craniotomy. Paranasal sinuses: Normal as visualized. No acut e sinusitis. Mastoid air cells: Normal as visualized. No mast oid effusion. Orbital cavities: Unremarkable. Soft tissues: Unremarkable. IMPRESSION: Follow-up study shows no interval change. There is no acute cortical infarct. Ottoniel Quintanilla MD On 02/03/2022 19:44:57; NEELA [id number] 2022-02-03 PROCEDURE INFORMATION: [facility] 11:26:41-00:00 Exam: XR Chest Exam date and time: 02/03/2022 10:57 AM Age: 56 years old Clinical indication: /cva/tia TECHNIQUE: Imaging protocol: XR of the chest. Views: 1 view. COMPARISON: No relevant prior studies available. FINDINGS: Heart is normal in size. Aortic stent g raft overlies the region of the aortic arch and descending thoracic aorta. There is mild linear scarri ng and/or discoid atelectasis in the left mid lung. Lungs are otherwise clear. No vascular congestio n and or pneumothorax. Right shoulder prosthesis noted. IMPRESSION: Mild left mid lung linear scarring/discoid atele ctasis. Seng Tsai MD On 02/03/2022 11:54:47; ROHAN [id number] Radiation Dose CTDIVOL = 0 (mGy): DLP = 1119.36 (mGy-cm) [facility] 10:30:06-00:00 PROCEDURE INFORMATION: Exam: CT Head Without Contrast Exam date and time: 02/03/2022 10:23 AM Age: 56 years old Clinical indication: /blurred vision, AMS, ataxi a, MIRANDA, HX of TIA TECHNIQUE: Imaging protocol: Computed tomography of the hea d without contrast. Radiation optimization: All CT scans at this facility use at least one of these dose optimization techniques: automated exposure control; mA and/or kV adjustment per patient size (includes targeted e xams where dose is matched to clinical indication); or iterative reconstructio n. COMPARISON: BRAIN WO CONTRAST MRI 08/09/2021 10:36 AM RADIATION DOSE METRICS: Total DLP (mGy-cm): 1119.36 FINDINGS: Brain: There is encephalomalacia in the left cer ebellar hemisphere.There are areas of hypoattenuation in the deep and periventricular white matter which are nonspecific but most likely consistent with windlace machine operator meg small vessel ischemia. No acute intracranial hemorrhage. No acute territor ial vascular infarction. No midline shift. Cerebral ventricles: No ventriculomegaly. Paranasal sinuses: Visualized sinuses are unrema rkable. No fluid levels. Mastoid air cells: Visualized mastoid air cells are well aerated. Bones/joints: Status post left suboccipital cran iectomy. Soft tissues: Unremarkable. IMPRESSION: No acute intracranial abnormality. Encephalomalacia in the left cerebral hemisphere with left suboccipital craniectomy. Ben Bonner MD On 02/03/2022 10:48:14; [id number] 2021-08-09 EXAM: MRI BRAIN WITHOUT CONTRAST MONET ANNE MARIE Preston 10:20:51-00:00 DATE: 08/09/2021 10:19 CDT INDICATION: R41.89 Other sym ptoms and signs involving cognitive functions and awareness - R41.89 Other symptoms and signs involving cognitive functions and awareness ADDITIONAL INFORMATION: Memory loss, loss of bal ance, history of stroke. COMPARISON: MRI 10/30/2020 TECHNIQUE: Multiplanar, multisequence MRI of the brain without contrast. IV contrast: None. FINDINGS: Diffusion-weighted images fa il to demonstrate any recent ischemic change. No acute intracranial hemorrhage, mass effect, hydrocephalus, or intracranial mass is identified. Redemonstrated are left PICA territory encephalomalacia, as well as scattered cortical encephalomalacia and gliosis in the bilateral occipital and medial posterior frontoparietal lobes. Scattered puncta te foci of susceptibility in the areas of chronic infarction, no significant change. Age expected mild cerebral volume loss is again seen. The intracranial arterial and venous str uctures demonstrate normal flow voids. Minimal circumferential muco jean-pierre thickening at the right maxillary sinus. The paranasal sinuses are otherwise clear. There is no mastoid effusion. IMPRESSION: 1. No acute abnormality. 2. No interval change from D ecember 2019. No evidence of interval ischemic stroke. 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 IV contrast: None. FINDINGS: Diffusion-weighted images fail demonstrate any r ecent ischemic change. Again noted is an area of ch ronic infarction with encephalomalacia and surrounding gliosis in the left cerebellar hemisphere.. Previously demonstrated areas of ischemia in the medial posterior frontopar ietal and occipital lobes miranda ve evolved into areas of cortical encephalomalacia and gliosis. No new areas of diffusion resection to suggest acute infarction. Scattered punctate foci of susceptibility in areas of chronic infarction with 2 prior hemorrh age. No mass effect or midline sh ift. The ventricles are normal in size. Note is made of a partially empty sella. The basal cisterns are patent. The orbits and paranasal sinuses are unremarkable. IMPRESSION: No acute intracr anial abnormality. Areas of chronic infarction are seen along the cortices of the medial posterior frontal, parietal and occipital lobes with associated cortical volume loss and gliosis. Chronic infarct in the left cerebel lar hemisphere. 2020-09-28 EXAM: CT ANGIOGRAM OF THE BRAIN [facility] 01:13:00-00:00 EXAM: CT ANGIOGRAM OF THE NECK C enter DATE: 09/28/2020 at 1:11 INDICATION: - stroke COMPARISON: CT brain 09/26/2020, MRI brain 2019, CTA brain 03/20/2020 CT chest 03/20/2020 TECHNIQUE: -Rapid acquisition spiral im ages of the brain and neck were obtained between the aortic arch and the cranial vertex during intravenous infusion of iodinated contrast for the purposes of CT angiography. 3-D CT angiographic images a re created using maximum intensity projection technique at the acquisition workstation. The source images are also presented for interpretation. IV contrast: 60 cc Omnipaque 350 Total DLP: 523 mGycm FINDINGS: Aortic stent graft partially included on this ex am. Both common carotid arteries are patent from their origin with usual course and caliber. The carotid bifurcations and cervical ICAs are patent and symmetric in caliber. Intracranial ICAs, anterior and m iddle cerebral arteries are patent with no proximal branch occlusion or flow- limiting stenosis. Both vertebral arteries are patent from their origin with usual course and caliber. The intradural vertebral arteries, basilar artery and both wharf tally clerk are patent and unremarkable. No AV malformation or aneurysms. IMPRESSION: Aortic stent graft. No significant stenosis by NASCET criteria. No intracranial proximal branch occlusion or kiran w-limiting stenosis. (All qualitative and quantit ative assessments of carotid bifurcation and proximal internal carotid artery stenosis are made referencing the distal internal carotid artery {NASCET criteria}.) 2020-09-26 Radiation Dose CTDIVOL = 0 (mGy): DLP = 973.87 ( mGy-cm) [facility] 22:41:38-00:00 PROCEDURE INFORMATION: Exam: CT Head Without Contrast Exam date and time: 09/26/2020 10:19 PM Age: 55 years old Clinical indication: /weakness TECHNIQUE: Imaging protocol: Computed tomography of the hea d without contrast. Radiation optimization: All CT scans at this facility use at least one of these dose optimization techniques: automated exposure control; mA and/or kV adjustment per patient size (includes targeted e xams where dose is matched to clinical indication); or iterative reconstructio n. COMPARISON: BRAIN WO CONTRAST CT 04/24/2020 10:02 PM RADIATION DOSE METRICS: Total DLP (mGy-cm): 973.87 FINDINGS: Brain: Age-related involutional changes. Mild mi crovascular white matter disease. Subacute infarcts in the right parieto- occipital lobe and left parietal lobe. Encephalomalacia in the left cere bellum. No acute intracranial hemorrhage or mass effect. Cerebral ventricles: No ventriculomegaly. Bones/joints: . No acute fracture. Status post l eft suboccipital craniectomy. Paranasal sinuses: Visualized sinuses are unrema rkable. No fluid levels. Mastoid air cells: Visualized mastoid air cells are well aerated. Soft tissues: Unremarkable. IMPRESSION: Subacute infarcts in the right parie to-occipital lobe and left parietal lobe. No acute intracranial hemorrhage or mass effect. Status post left suboccipital craniectomy. Encep halomalacia in the left cerebellum. Dr. Boles was notified at 11:11 p.m. on 09/26/2020 . Emma Baker MD On 09/26/2020 23:17:03; [id number] 2020-05-03 PROCEDURE INFORMATION: MONET gary 16:30:00-00:00 Exam: MR Head Without and With Contrast [...] edema. Ottoniel Quintanilla MD On 05/03/2020 17:45:51; NEELA [id number] 2020-04-24 PROCEDURE INFORMATION: [facility] 23:05:35-00:00 Exam: XR Chest, 1 View Exam date [...] findings. Johnny Bush MD On 04/24/2020 23:21:42; [id number] 2020-04-24 Radiation Dose CTDIVOL = 0 (mGy): DLP = 882.44 ( mGy-cm) [facility] 22:15:13-00:00 PROCEDURE INFORMATION: Exam: CT Head Without Contrast Exam date and time: 04/24/2020 10:02 PM Age: 54 years old Clinical indication: Condition or disease; Other : Recent brain bleed/feeling weak, falling today; Additional info: /feels wea k, prior intracranial hemorrhage TECHNIQUE: Imaging protocol: [...] appropriate. Arjun Tapia MD On 04/24/2020 22:52:02; DELMAR [id number] 2020-04-12 Radiation Dose CTDIVOL = 0 (mGy): DLP = 355.15 ( mGy-cm) MONET Johnston 15:04:51-00:00 PROCEDURE INFORMATION: Exam: CT Head With Contrast [...] enhancement. Ottoniel Quintanilla MD On 04/12/2020 19:47:58; VR-BB [id number] 2020-03-20 EXAM: CT ANGIOGRAM OF THE BRAIN [facility] 14:20:00-00:00 EXAM: CT ANGIOGRAM OF THE NECK C enter EXAM: CT PERFUSION OF THE BRAIN DATE: 03/20/2020 12:54 CDT INDICATION: - b/l vasogenic edema- vasculitis vs PRES COMPARISON: MRI brain from 03/20/2020, CT [...] and brachiocephalic trunk are excluded from the [id number]-[id number]. 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 IMPRESSION: 1. Redemonstration of aortic stent graft from the mid aortic arch to the mid to distal descending thoracic aorta. The stent graft does have extension into the proximal left subclavian artery. Redemonstr ation of focal area of steno sis to the proximal descending thoracic aorta measuring approximately 10 mm in greatest anterior to posterior dimension, unchanged. Please correlate with yesterday echocardiogram findings. 2020-03-20 EXAM: MRI BRAIN WITH AND WITHOUT CONTRAST [facility] 04:55:00-00:00 DATE: 03/19/2020 7:25 CDT Center INDICATION: - rule out acute stroke / mass, heart failure, myocardial infarction. [...] or the sequela of an underlying vasculopathy/vasculitis. 2020-03-19 EXAM: XR RIGHT ANKLE 3 VIEWS [facility] 09:05:54-00:00 DATE: 03/19/2020 0908 hours Cente r INDICATION: multiple falls and tenderness at ank le COMPARISON: None. TECHNIQUE: AP, oblique and lateral radiographs o f the ankle FINDINGS: No acute fracture or malalig nment is identified. The ankle mortise is congruent. A calcaneal spur is present. No other soft tissu e abnormality is identified. IMPRESSION: No acute fracture or malalignment. 2020-03-19 EXAM: XR RIGHT HIP 2 VIEW AND AP PELVIS [facility] 09:05:54-00:00 DATE: 03/19/2020 0857 hours Cente r INDICATION: [...] or malalignment. 2. Remodeling of the right i nferior pubic ramus likely related to prior trauma. 2020-03-19 PROCEDURE INFORMATION: [facility] 01:02:58-00:00 Exam: XR Chest, 1 View Exam date [...] congestion. Brandon Bauer MD On 03/19/2020 01:29:57; [id number] 2020-03-19 Radiation Dose CTDIVOL = 0 (mGy): DLP = 929.18 ( mGy-cm) [facility] 00:34:02-00:00 PROCEDURE INFORMATION: Exam: CT Head Without Contrast [...] lobes. 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 VISUALIZED UPPER ABDOMEN: Pa tient is status post cholecystectomy. Mild dilatation of [...] just be due to postcholecystectomy changes. SL: [id number]
[2023-07-08 21:40] LABS: Absolute Lymphocytes (CBC) 1.2 K/uL (0.7-4.9); Hematocrit 33.9 % (36.0-45.0); Lymphocytes % 16.7 % (15.3-44.8); MCV 94.9 fL (80-100); MPV 6.9 fL (7.6-11.3); Platelets 255 thou/uL (152-406); RBC Red Blood Cell Count 3.57 M/uL (3.86-4.86)
--- NOTE | 2023-07-08 21:55 | RAD REPORT ---
EXAM DESCRIPTION: Vale Single View07/08/2023 9:42 pm CLINICAL HISTORY: Hypertension/swelling COMPARISON: February 2023 FINDINGS: The lungs appear clear of acute infiltrate. The heart is normal size. Aortic stent in letitia ce IMPRESSION: No acute abnormalities displayed
--- NOTE | 2023-07-08 22:04 | RAD REPORT ---
EXAM DESCRIPTION: USExtrem Venous W Compress Bil07/08/2023 9:52 pm CLINICAL HISTORY: Leg swelling COMPARISON: none FINDINGS: The common femoral, superficial femoral, greater saphenous, popliteal and posterior tibial veins bilaterally are compressible and demonstrate augmentation. Doppler demonstrates good flow. Varicose veins which are palpable upper right calf. They contain acute thrombus Grayscale, color and spectral analysis performed on all vessels IMPRESSION: No evidence of deep venous thrombosis involving either lower extremity. Acute thrombus varicose veins upper right calf
[2023-07-08] MEDS ORDERED: FUROSEMIDE 40 MG/4 ML VIAL ONE (23:12)
[2023-07-08] MEDS ORDERED: FUROSEMIDE 20 MG TABLET ONE (23:13)
[2023-07-08 23:15] LABS: Protime INR 0.94
[2023-07-08 23:21] LABS: ALT/SGPT 20 U/L (13-56); AST/SGOT 19 U/L (15-37); Albumin 3.4 g/dL (3.4-5.0); Alkaline Phosphatase 137 U/L (45-117); BUN Blood Urea Nitrogen 53 mg/dL (7-18); Bicarbonate 27 mEq/L (21-32); Bilirubin Total 0.3 mg/dL (0.2-1.0); Glomerular Filtration Rate 42 ml/min (=/>90); Glucose Level 85 mg/dL (74-106); Magnesium 1.9 mg/dL (1.6-2.4); NT PRO-BNP 1308 pg/mL (<125); Potassium 3.8 mEq/L (3.5-5.1); Protein, Total 6.9 g/dL (6.4-8.2); Sodium Level 134 mEq/L (136-145); Troponin High Sensitivity 5.8 pg/mL (<58.9)
[2023-07-08 23:25] LABS: Bilirubin Direct < 0.1 mg/dL (0-0.2); Bilirubin Indirect, Calculated ND mg/dL (0.2-0.8)
[2023-07-08 23:27] LABS: Barbiturates NEGATIVE (NEGATIVE); Benzodiazepines NEGATIVE (NEGATIVE); Cocaine NEGATIVE (NEGATIVE); METHAMPHETAM NEGATIVE (NEGATIVE); Methadone NEGATIVE (NEGATIVE); Opiates NEGATIVE (NEGATIVE); Phencyclidine NEGATIVE (NEGATIVE); THC Cannibis NEGATIVE (NEGATIVE)
[2023-07-08 23:29] LABS: Specific Gravity 1.008 (1.005-1.030); Urine Bacteria None Seen /HPF (<20); Urine Bilirubin NEGATIVE (Negative); Urine Blood Negative (Negative); Urine Clarity Clear (Clear); Urine Color Colorless (Yellow); Urine Glucose NEGATIVE (Negative); Urine Protein NEGATIVE (Negative); Urine RBC None Seen /HPF (None Seen); Urine Urobilinogen Normal (Normal)
--- NOTE | 2023-07-08 23:54 | EDPHYS ---
Physician Documentation [facility] Name: Betsey Martel Age: 58 yrs Sex: Female : 1965 Arrival Date: 07/08/2023 Time: 20:27 Bed 14 Private MD: Everett Guerra ED Physician Joon Elizondo HPI: 07/08 20:36 This 58 yrs old Female presents to ER via Unassigned with complaints of Leg sp4 Swelling, Leg Pain. 20:39 PMHx: Anemia; BRAIN TUMOR 1996; CHF; Chronic pain; degenerative bone disease; sp4 Depression; ETHO INTOXICATION; GERD; Hip Pain; Hypertension; Hypothyroidism; kidney disease; osteoarthritis; Rheumatoid Arthritis; THORACIC AORTIC ANEURYSM; PSHx: 16:31Right shoulder replacement;. 20:48 58-year-old female presents with complaint of bilateral lower extremity edema starting sp4 January 2023. Worsening in the past few days.. 22:17 Patient states that she takes torsemide and also spironolactone daily. Swelling has sp4 been increasing since January 2023. Patient also complains of bilateral lower extremity redness.. Historical: - Allergies: 20:40 Cymbalta; lg3 20:40 GABAPENTIN; lg3 20:40 Seroquel; lg3 20:40 NSAIDS; lg3 - Home Meds: 20:40 Eliquis 2.5 mg oral tablet 1 tab 2 times per day [Active]; torsemide oral [Active]; lg3 Protonix Oral [Active]; Metoprolol Tartrate Oral [Active]; amlodipine oral [Active]; atorvastatin oral [Active]; Spironolactone Oral [Active]; Klonopin Oral [Active]; - PMHx: 20:40 Anemia; BRAIN TUMOR 1996; CHF; Chronic pain; degenerative bone disease; Depression; lg3 ETHO INTOXICATION; GERD; Hip Pain; Hypertension; Hypothyroidism; kidney disease; osteoarthritis; Rheumatoid Arthritis; THORACIC AORTIC ANEURYSM; - PSHx: 20:40 Right shoulder replacement; lg3 - Immunization history:: Adult Immunizations up to date. - Social history:: Smoking status: Patient denies any tobacco usage or history of. Patient uses alcohol, admits to "couple of beers" a day. - Family history:: not pertinent. ROS: 22:17 Constitutional: Negative for fever, chills, and weight loss, Eyes: Negative for injury, sp4 pain, redness, and discharge, MS/Extremity: Negative for injury and deformity, positive for bilateral lower extremity edema and discomfort, positive bilateral lower extremity redness 22:17 All other systems are negative. Exam: 22:17 Constitutional: This is a well developed, well nourished patient who is awake, alert, sp4 and in no acute distress. Head/Face: Normocephalic, atraumatic. Eyes: Pupils equal round and reactive to light, extra-ocular motions intact. Lids and lashes normal. Conjunctiva and sclera are not injected. Cornea within normal limits. Periorbital areas with no swelling, redness, or edema. ENT: Nares patent. No nasal discharge, no septal abnormalities noted. Tympanic membranes are normal and external auditory canals are clear. Oropharynx with no redness, swelling, or masses, exudates, or evidence of obstruction, uvula midline. Mucous membranes moist. Neck: Trachea midline, no thyromegaly or masses palpated, and no cervical lymphadenopathy. Supple, full range of motion without nuchal rigidity, or vertebral point tenderness. Chest/axilla: Normal chest wall appearance and motion. Nontender with no deformity. No lesions are appreciated. Cardiovascular: Regular rate and rhythm with a normal S1 and S2. No gallops, murmurs, or rubs. Normal PMI, no JVD. No pulse deficits. Respiratory: Lungs have equal breath sounds bilaterally, clear to auscultation and percussion. No rales, rhonchi or wheezes noted. No increased work of breathing, no retractions or nasal flaring. Abdomen/GI: Soft, non-tender, with normal bowel sounds. No distension or tympany. No guarding or rebound. No evidence of tenderness throughout. Back: No spinal tenderness. No costovertebral tenderness. Skin: Warm, dry with normal turgor. Normal color with no rashes, no lesions, and no evidence of cellulitis. MS/ Extremity: Pulses equal, no cyanosis. Neurovascular intact. Full, normal range of motion. Neuro: Awake and alert, GCS 15, oriented to person, place, time, and situation. Cranial nerves II-XII grossly intact. Motor strength 5/5 in all extremities. Sensory grossly intact. Psych: Awake, alert, with orientation to person, place and time. Behavior, mood, and affect are within normal limits 22:17 ECG was reviewed by the Attending Physician. EKG time 2105, there is normal sinus rhythm at a rate of 64, no ST elevation or depression, respiratory movement artifact. Otherwise normal EKG, no ectopy Vital Signs: 20:39 BP 110 / 85; Pulse 73; Resp 17 S; Temp 98.9(O); Pulse Ox 100% on R/A; Weight 69.85 kg lg3 (R); Height 5 ft. 6 in. (R); 22:37 BP 106 / 93; Pulse 64; Resp 15; Pulse Ox 100% on R/A; rv 07/09 00:04 BP 124 / 54; Pulse 63; Resp 16; Temp 98; Pulse Ox 96% on R/A; rv 07/08 20:39 Body Mass Index 24.86 (69.85 kg, 167.64 cm) lg3 MDM: 07/08 20:48 Patient medically screened. sp4 23:04 Differential diagnosis: Bilateral lower extremity edema, cellulitis, fluid retention, sp4 volume overload, CHF, renal failure. Data reviewed: vital signs, nurses notes, old medical records, lab test result(s), EKG, radiologic studies, plain films, ultrasound. Consideration of Admission/Observation Escalation of care including admission/observation considered. ED course: Chest x-ray today is normal, patient has history of aortic stent which is in place and visible on the chest x-ray. There is no infiltrate, heart is normal size, no acute abnormalities, right shoulder prosthesis. 23:07 ED course: There is ultrasound bilateral lower extremity Doppler, no evidence of DVT sp4 involving lower extremities, there is acute thrombus and varicose veins of the right calf.. 23:30 ED course: Patient has elevated creatinine 1.45, mild elevation of alkaline phosphatase sp4 at 137, there is also elevated BNP 1308, negative EtOH negative troponin normal urinalysis negative urine drug screen.. 23:50 ED course: Patient has no signs of acute cardiac emergency, BNP is slightly elevated sp4 and patient will be prescribed p.o. Lasix. Patient appears to be well compensated. There is no JVD on exam. Patient will be discharged with Lasix p.o. 40 mg daily. We will advised to discontinue torsemide and spironolactone. 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 EKG is normal today. There is no pulmonary edema on chest x-ray. Right upper calf varicose vein blood clot does not constitute acute emergency and can be left alone . Acute bilateral lower extremity redness may be indicative of early cellulitis - patient will be prescribed Bactrim p.o. twice a day for 10 days. 07/08 20:47 Order name: Basic Metabolic Panel; Complete Time: 23: 4 07/08 20:47 Order name: CBC with Diff; Complete Time: 22: [facility] 07/08 20:47 Order name: LFT's; Complete Time: 23: 07/08 20:47 Order name: Magnesium; Complete Time: 23: 07/08 20:47 Order name: NT PRO-BNP; Complete Time: 23: 07/08 20:47 Order name: PT-INR; Complete Time: 23: 07/08 20:47 Order name: Troponin HS; Complete Time: 23: 4 07/08 22:49 Order name: Alcohol Level; Complete Time: 23:29 07/08 22:49 Order name: Urinalysis W/Microscopic; Complete Time: 01:35 07/08 22:49 Order name: Urine Drug Screen; Complete Time: 23: 07/08 20:47 Order name: Extrem Venous W Compression Maxime US; Complete Time: 22:17 07/08 20:47 Order name: XRAY Chest (1 view); Complete Time: 22:17 [facility] 07/08 20:47 Order name: EKG; Complete Time: 20:48 4 07/08 20:47 Order name: Cardiac monitoring; Complete Time: 21:19 [facility] 07/08 20:47 Order name: EKG - Nurse/Tech; Complete Time: 21:19 [facility] 07/08 20:47 Order name: IV Saline Lock; Complete Time: 21: 07/08 20:47 Order name: Labs collected and sent; Complete Time: 21:19 4 07/08 20:47 Order name: O2 Per Protocol; Complete Time: 21:19 [facility] 07/08 20:47 Order name: O2 Sat Monitoring; Complete Time: 21:19 [facility] 07/08 21:50 Order name: Richi. Order: RECOLLECT BLUE AND GREEN TOP; Complete Time: 21:53 rv1 EC:17 Rate is 64 beats/min. Rhythm is regular, Normal Sinus Rhythm. QRS Iron is Normal. [place] sp4 interval is normal. QRS interval is normal. QT interval is normal. T waves are Normal. No ST changes noted. Clinical impression: Normal ECG. Interpreted by me. Administered Medications: 23:03 Drug: Furosemide PO 40 mg Route: PO; rv 07/09 00:05 Follow up: Response: No adverse reaction rv Disposition Summary: 07/08/23 23:54 Discharge Ordered Location: Home sp4 Problem: new sp4 Symptoms: are unchanged sp4 Condition: Stable sp4 Diagnosis - Bilateral lower extremity edema, bilateral lower extremity cellulitis, varicose sp4 vein with varicose vein blood clot, varicose vein thrombus, history of congestive heart failure Followup: sp4 - With: Private Physician - When: 10 - 14 days - Reason: Recheck today's complaints Discharge Instructions: - Discharge Summary Sheet sp4 - Cellulitis, Adult, Bnss-qo-Posy sp4 Forms: - Patient Portal Instructions sp4 - Leadership Thank You Letter sp4 Prescriptions: - Lasix 40 mg Oral Tablet - take 1 tablet by ORAL route once daily for 30 days; 30 tablet; Refills: 0, sp4 Product Selection Permitted - Bactrim DS 800-160 mg Oral Tablet - take 1 tablet by ORAL route every 12 hours for 10 days; 20 tablet; Refills: 0, sp4 Product Selection Permitted Signatures: Dispatcher [employer] Ean Bourgeois RN SOURAV Becka Oakes RN RN 3 Roselia Coyle rv Joon Elizondo MD MD sp4 Corrections: (The following items were deleted from the chart) 07/08 22:19 22:17 Constitutional: Negative for fever, chills, and weight loss, Eyes: Negative for sp4 injury, pain, redness, and discharge, MS/Extremity: Negative for injury and deformity, bilateral lower extremity edema and discomfort sp4
--- NOTE | 2023-07-08 23:54 | ER ---
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 lg3 Coronavirus screen: Client denies travel out of the [place] in the last 14 days. At this time, the client does not indicate any symptoms associated with coronavirus-19. Ebola Screen: No symptoms or risks identified at this time. Initial Sepsis Screen: Does the patient meet any 2 criteria? No. Patient's initial sepsis screen is negative. Does the patient have a suspected source of infection? No. Patient's initial sepsis screen is negative. Risk Assessment: Do you want to hurt yourself or someone else? Patient reports no desire to harm self or others. Onset of symptoms is unknown. 20:39 Method Of Arrival: Ambulatory lg3 20:39 Acuity: KAREN 3 lg3 Triage Assessment: 20:40 General: Appears in no apparent distress. uncomfortable, Behavior is cooperative, lg3 anxious. Pain: Complains of pain in right leg and left leg. EENT: No deficits noted. No signs and/or symptoms were reported regarding the EENT system. Neuro: Level of Consciousness is awake, alert, obeys commands, Oriented to person, place, time, situation. Cardiovascular: No deficits noted. Denies chest pain, shortness of breath. Respiratory: No deficits noted. Airway is patent Respiratory effort is even, unlabored, Respiratory pattern is regular, symmetrical. GI: No deficits noted. No signs and/or symptoms were reported involving the gastrointestinal system. : No deficits noted. No signs and/or symptoms were reported regarding the genitourinary system. Derm: Skin is intact, is healthy with good turgor, Skin is dry, Skin is normal, Skin temperature is warm Reports pain that is 7 out of 10 on a pain scale. Musculoskeletal: Circulation, motion, and sensation intact. Range of motion: intact in all extremities, Swelling present in right leg and left leg. Historical: - Allergies: 20:40 Cymbalta; lg3 20:40 GABAPENTIN; lg3 20:40 Seroquel; lg3 20:40 NSAIDS; lg3 - Home Meds: 20:40 Eliquis 2.5 mg oral tablet 1 tab 2 times per day [Active]; torsemide oral [Active]; lg3 Protonix Oral [Active]; Metoprolol Tartrate Oral [Active]; amlodipine oral [Active]; atorvastatin oral [Active]; Spironolactone Oral [Active]; Klonopin Oral [Active]; - PMHx: 20:40 Anemia; BRAIN TUMOR 1996; CHF; Chronic pain; degenerative bone disease; Depression; lg3 ETHO INTOXICATION; GERD; Hip Pain; Hypertension; Hypothyroidism; kidney disease; osteoarthritis; Rheumatoid Arthritis; THORACIC AORTIC ANEURYSM; - PSHx: 20:40 Right shoulder replacement; lg3 - Immunization history:: Adult Immunizations up to date. - Social history:: Smoking status: Patient denies any tobacco usage or history of. Patient uses alcohol, admits to "couple of beers" a day. - Family history:: not pertinent. Screenin:36 [facility] ED Fall Risk Assessment (Adult) History of falling in the last 3 months, rv including since admission No falls in past 3 months (0 pts) Confusion or Disorientation No (0 pts) Intoxicated or Sedated No (0 pts) Impaired Gait No (0 pts) Score/Fall Risk Level 0 - 2 = Low Risk Oriented to surroundings, Maintained a safe environment, Educated pt \\T\\ family on fall prevention, incl call for assistance when getting out of bed, Assessed \\T\\ reinforced patient's understanding of fall precautions, Provided non-skid footwear, Hourly rounding (assess needs \\T\\ fall precautionary measures) done, Used ambulatory aids as needed (educated on \\T\\ assisted with), Used gait belt as appropriate. Abuse screen: Denies threats or abuse. Denies injuries from another. Nutritional screening: No deficits noted. Tuberculosis screening: No symptoms or risk factors identified. Assessment: 22:00 General: Appears uncomfortable, Behavior is restless. rv 22:00 Neuro: Level of Consciousness is awake, alert, obeys commands, Oriented to person, rv place, time, situation. Cardiovascular: Capillary refill < 3 seconds Patient's skin is warm and dry. Respiratory: Airway is patent Respiratory effort is even, unlabored. GI: No signs and/or symptoms were reported involving the gastrointestinal system. : No signs and/or symptoms were reported regarding the genitourinary system. Musculoskeletal: Swelling present in left leg and right leg. Vital Signs: 20:39 BP 110 / 85; Pulse 73; Resp 17 S; Temp 98.9(O); Pulse Ox 100% on R/A; Weight 69.85 kg lg3 (R); Height 5 ft. 6 in. (R); 22:37 BP 106 / 93; Pulse 64; Resp 15; Pulse Ox 100% on R/A; rv 07/09 00:04 BP 124 / 54; Pulse 63; Resp 16; Temp 98; Pulse Ox 96% on R/A; rv 07/08 20:39 Body Mass Index 24.86 (69.85 kg, 167.64 cm) lg3 ED Course: 07/08 20:30 Patient arrived in ED. cc5 20:30 Everett Guerra DO is Private Physician. cc5 20:36 Joon Elizondo MD is Attending Physician. sp4 20:40 Triage completed. lg3 20:40 Arm band placed on right wrist. lg3 21:19 Ean Ruiz, RN is Primary Nurse. rv 21:43 XRAY Chest (1 view) In Process Unspecified. EDMS 21:54 Extrem Venous W Compression Maxime US In Process Unspecified. EDMS 22:00 Inserted saline lock: 20 gauge in left upper arm, using aseptic technique. Blood rv collected. 22:00 No provider procedures requiring assistance completed. rv 22:37 Patient has correct armband on for positive identification. Client placed on continuous rv cardiac and pulse oximetry monitoring. NIBP monitoring applied. nurse monitoring on. 07/09 00:05 Provided Education on: blood coagulation. rv 00:05 IV discontinued, intact, bleeding controlled, No redness/swelling at site. Pressure rv dressing applied. Administered Medications: 07/08 23:03 Drug: Furosemide PO 40 mg Route: PO; rv 07/09 00:05 Follow up: Response: No adverse reaction rv Medication: 07/08 22:36 VIS not applicable for this client. rv Outcome: 23:54 Discharge ordered by . sp4 07/09 00:05 Discharged to home ambulatory. rv Condition: improved Discharge instructions given to patient, Instructed on discharge instructions, follow up and referral plans. medication usage, Demonstrated understanding of instructions, follow-up care, medications, Prescriptions given X 2. 00:05 Patient left the ED. rv Signatures: Dispatcher [employer] EDMS Ean Ruiz RN RN Becka Oakes RN RN 3 Olga Wood 5 Joon Elizondo MD MD sp4
[2023-07-09 00:23] VITALS: BP 124/54; TEMP 98; O2SAT 96
--- NOTE | 2023-07-09 12:04 | EKG ---
Test Date: 2023-07-08 Test Time: 21:06:49 [employer]: RV MEASUREMENT RESULTS: Intervals: Rate: 64 WI: 140 QRSD: 92 QT: 402 QTc: 414 [place]: P: 49 WI: 140 QRS: 51 T: 61 INTERPRETIVE STATEMENTS: Normal sinus rhythm Normal ECG Compared to ECG 02/11/2023 18:25:24 Myocardial infarct finding no longer present Electronically Signed On 07-09-23 12:02:37 CDT by Ming Lara
== END 2023-07-09 00:05 | disposition home or self-care (01) ==
LOC: ER 20:27
DX: L03.116 Cellulitis of left lower limb (principal); L03.115 Cellulitis of right lower limb; I82.811 Embolism and thrombosis of superficial veins of right lower extremity; I50.9 Heart failure, unspecified; I10 Essential (primary) hypertension; Z88.6 Allergy status to analgesic agent; Z88.8 Allergy status to other drugs, medicaments and biological substances; Z79.01 Long term (current) use of anticoagulants
CPT/HCPCS: 36415; 71045; 80048; 80076; 80307; 81001; 82077; 83735; 83880; 84484; 85025; 85610; 93005; 93970; 99284; J1940

== ENCOUNTER 2023-12-25 08:16 | Day surgery (SDC) | payer OTHER ==
[2023-12-25] MEDS: Ringers Lactate 1,000 ML IV ONE ×2 (08:45→10:42)
[2023-12-25] MEDS: MIDAZOLAM HCL 2 MG/2 ML INJ ONE ×2 (09:05→11:43)
[2023-12-25] MEDS ORDERED: LIDOCAINE 2% MPF 5 ML VIAL ONE (09:12)
[2023-12-25] MEDS ORDERED: propofoL 200 MG/20 ML VIAL IV ONE (09:12)
[2023-12-25] MEDS ORDERED: MIDAZOLAM HCL 2 MG/2 ML INJ ONE (09:12)
[2023-12-25] MEDS ORDERED: FENTANYL CITR 100 MCG/2 ML ONE ×2 (09:12→10:37)
[2023-12-25] MEDS ORDERED: ROCURONIUM 50 MG/5 ML VIAL IV ONE (09:12)
[2023-12-25 09:24] LABS: Hematocrit 37.7 % (36.0-45.0); MCV 96.2 fL (80-100); MPV 6.8 fL (7.6-11.3); Platelets 195 thou/uL (152-406); RBC Red Blood Cell Count 3.92 M/uL (3.86-4.86)
[2023-12-25] MEDS: CEFAZOLIN SODIUM 2 GM/VIAL ONE (09:37)
[2023-12-25] MEDS: BUPIVACAINE 0.25% PF 30 ML VIAL ONE (09:43)
[2023-12-25] MEDS ORDERED: ONDANSETRON 4 MG/2 ML VIAL ONE (09:44)
[2023-12-25] MEDS ORDERED: dexAMETHasone 10 MG/ML VIAL ONE (09:44)
[2023-12-25] MEDS ORDERED: KETOROLAC 30 MG/ML INJ ONE (09:44)
[2023-12-25] MEDS ORDERED: GLYCOPYRROLATE 0.2 MG/ML SYR ONE (09:44)
[2023-12-25] MEDS ORDERED: NEOSTIGMINE 1 MG/ML -10 ML VIAL ONE (10:37)
--- NOTE | 2023-12-25 11:07 | P.OP ---
Preoperative diagnosis: Bilateral Inguinal Hernias Postoperative diagnosis: Bilateral Inguinal Hernias Primary procedure: Open Bilateral Inguinal Hernia Repair with mesh Anesthesia: GETA + Local Estimated blood loss: <5cc Specimen: None Findings: Oblique aponeurosis was absent, severe scar from prior surgery Complications: None Implants: Bard Perfix Plug and Patch, Medium on RIGHT, Large on LEFT Transferred to: Recovery Room Condition: Good
[2023-12-25] MEDS: HYDROCODONE/APAP 7.5/325 MG TAB ONE ×2 (11:25→12:36)
[2023-12-25] MEDS: HYDROMORPHONE HCL 1 MG/ML INJ ONE ×2 (11:33→11:53)
[2023-12-25 12:34] VITALS: O2SAT 98
[2023-12-25 12:54] VITALS: BP 113/58; TEMP 97.2
--- NOTE | 2023-12-25 18:19 | OP ---
Date of Procedure: 12/25/2023 Surgeon: Geoff Edmonds MD, Brief Hpi: The patient is a 58-year-old female with a history of bilateral inguinal hernia repair. She has had previous surgery in the pubic area performed in the past and had multiple scars in the ar ea from previous surgeries that extend across the pubic area and the area in the inguinal region. Sh e is unclear of all those surgeries she has had before. However, scars were noted in the preoperativ e period, and these were in the area of the previous hernia, as such consistent with incisional ventr al hernias. Preoperative Diagnosis: Bilateral incisional inguinal hernias. Postoperative Diagnosis: Bilateral incisional inguinal hernias. Procedure Performed: Open bilateral inguinal hernia repair with mesh. Anesthesia: General endotracheal plus local with 0.25% Marcaine without epinephrine. Estimated Blood Loss: Less than 5 cc. Specimen: None. Findings: 1.The external oblique aponeurosis was essentially absent in this area. 2.Significant scar tissue obscuring the normal anatomy. 3.Reducible indirect inguinal hernias bilaterally were noted with adipose tissue only. No intestina l contents were appreciated. 4.Nerves were unable to be identified due to severe scar tissue, bilateral inguinal regions. Complications: None immediate. Implants: Bard PerFix plug and patch hernia repair system, medium plug and patch used on the right, large plug and patch used on the left. Disposition: The patient transferred to recovery room in good condition. Procedure In Detail: After informed consent was obtained, the patient was brought to the operating r oom, prepped and draped in the usual sterile fashion after adequate anesthesia achieved. Following t hrough previous incision on the right inguinal region, I used a 15 blade after appropriately anesthet izing the skin down through subcutaneous tissues. I dissected down through Camper's fat and Isidoro f ascia where there was severe scar tissue to expose the inguinal canal and the deep inguinal ring. Th is had severe scar tissue leading up to it. The external oblique aponeurosis was not identified desp ite multiple attempts. At the point at which the external oblique aponeurosis was appreciated, it wa s found to be quite far medial and appeared to have dehisced on this side possibly from previous surg reina. As such, I continued the dissection down and ultimately encircled the hernia sac circumferentia lly around using combination of electrocautery. At this point, I returned the hernia sac to the prep eritoneal space. I palpated the ring and found it to be appropriate for a medium Bard PerFix plug. At this point, I hydrated the plug appropriately, placed in the preperitoneal space, pushing the aaron ia sac back into the intraperitoneal compartment. I ultimately opened up and unfurled the mesh and c ircumferentially secured it to the fascia circumferentially around into the edge of the ring. At thi s point, the Anesthesia provider performed Valsalva maneuver and the patch was able to keep all shana nts in place at this point. I then placed a hernia patch on the floor of the inguinal canal and secu red it to the internal oblique aponeurosis in the undersurface of the inguinal ligament circumferenti ally around using interrupted 2-0 PDS sutures and securing it medially on the pubic tubercle as well. I then trimmed the mesh at the deep inguinal ring and secured it with the same set 2-0 PDS suture i n an interrupted fashion. At this point, the area was copiously irrigated. The Camper's fat and Sca rpa fascia were closed as the external oblique aponeurosis was not identified regionally. I closed t hese tissues en bloc using running 3-0 Vicryl suture and the skin was closed deep dermal plane in the same said fashion with interrupted 3-0 Vicryl sutures. Skin was closed with 4-0 Monocryl in running fashion and Dermabond placed over top. I then turned my attention to the left inguinal hernia and i n similar fashion made an incision over the inguinal incision previously noted. After appropriately anesthetizing the skin with 0.25% Marcaine, dissected down once again through Camper's fat and Isidoro fascia where severe scar tissues once again appreciated, as the scar extended all the way from the r ight to the left on this side. I dissected through the same type of scar tissue on this area. Once again, the external oblique aponeurosis was apparently dehisced before in the past and was not identi fied in the normal anatomic position and was found to be quite far medially and laterally, thus not a llowing for an appropriate closure as it appeared to have pulled all the way back out of normal anato jana position. At this point, I identified the hernia sac and the deep inguinal ring consistent with an indirect inguinal hernia based on the epigastric vessels which were identified. At this point, I dissected down circumferentially around the hernia sac and reduced it to the normal anatomic position in the preperitoneal space. I then palpated the ring and found it to be consistent with a large Bar d PerFix plug and patch hernia repair system. I placed the plug into the preperitoneal space and dep loyed at this point circumferentially securing it with a 2-0 PDS suture to the deep inguinal ring usi ng interrupted 2-0 PDS suture circumferentially around. At this point, I then placed patch on the fl oor of the inguinal canal, secured it to the pubic tubercle medially and on the medial and lateral sh elving edge of the internal oblique aponeurosis as well as the undersurface of the inguinal ligament. At this point, the mesh was trimmed at the deep inguinal ring and secured with the same set 2-0 PDS suture. The area was copiously irrigated, and once again, I closed the Camper's fat and Isidoro fasc ia rather than the external oblique aponeurosis as it could not be closed at this point as it was thi n, alveolar and pulled far way out of normal anatomic position. I simply closed the Camper's fat and Isidoro fascia in running fashion using 3-0 PDS suture in running fashion and the deep dermal plane w as then closed using same set interrupted 3-0 Vicryl suture and skin was closed with 4-0 moral Monocr yl in running fashion. Dermabond placed over top. The patient tolerated the procedure well without incident or complication, was transferred to PACU in good condition. All counts were correct at end of case. TK/ADRIENNEL Voice ID: [id number] Report ID: [id number]
== END 2023-12-25 13:45 | disposition home or self-care (01) ==
LOC: OR 08:16
PROVIDERS: ATTEND Surgery
PROC: 0YUA0JZ Supplement Bilateral Inguinal Region with Synthetic Substitute, Open Approach (ICD-10-PCS; principal; 2023-12-25 12:15)
DX: K40.20 Bilateral inguinal hernia, without obstruction or gangrene, not specified as recurrent (principal)
CPT/HCPCS: 85025; 80048; 36415; 49505; J2704; J2710; J2001; J2250 ×3; J3010 ×2; J1100; J1170 ×2; J2405; J7120 ×2